=== PATIENT | female | born 1985 | race Caucasian/White ===

== ENCOUNTER 2023-05-06 09:29 | Outpatient (OUT) | payer OTHER, SELFPAY ==
[2023-05-06 11:50] LABS: Basophils Percent Auto 0.4 % (0.2-2.0); Eosinophils Absolute Auto 0.1 10^3/uL (0.0-0.7); Eosinophils Percent Auto 0.7 % (0.9-7.0); Hematocrit 40.4 % (36.0-48.0); Hemoglobin 13.1 g/dL (12.0-16.0); Immature Granulocytes Abs Auto 0.02 10^3/uL (0.00-0.03); Immature Granulocytes Pct Auto 0.2 % (0.0-0.5); Lymphocytes Absolute Auto 2.2 10^3/uL (1.2-3.8); Lymphocytes Percent Auto 23.5 % (20.5-60.0); Mean Corpuscular HGB Conc 32.4 g/dL (29.9-35.2); Mean Corpuscular Hemoglobin 29.2 pg (26.7-34.0); Mean Corpuscular Volume 90.2 fL (81.0-99.0); Mean Platelet Volume 9.4 fL (9.5-13.5); Monocytes Absolute Auto 0.7 10^3/uL (0.3-0.8); Monocytes Percent Auto 7.5 % (1.7-12.0); Neutrophils Absolute Auto 6.3 10^3/uL (1.4-6.5); Neutrophils Percent Auto 67.7 % (43.0-75.0); Platelet Count 343 10^3/uL (150-450); Red Blood Count 4.48 10^6/uL (4.20-5.40); Red Cell Distribution Width 11.9 % (11.0-15.0); White Blood Count 9.4 10^3/uL (4.0-11.0)
[2023-05-06 12:10] LABS: Bilirubin Urine NEGATIVE (NEGATIVE); Blood Urine NEGATIVE (NEGATIVE); Clarity Urine CLEAR (CLEAR); Color Urine LT. YELLOW (YELLOW); Glucose Urine UA NEGATIVE (NEGATIVE); Ketones Urine NEGATIVE (NEGATIVE); Leukocyte Esterase Urine NEGATIVE (NEGATIVE); Nitrite Urine NEGATIVE (NEGATIVE); Protein Urine NEGATIVE (NEG/TRACE); Urobilinogen Urine 0.2 EU/dL (0.2-1.0); pH Urine 6.5 (5.0-9.0)
[2023-05-06 12:14] LABS: Estimated Average Glucose 108 mg/dL; Glycohemoglobin A1C 5.4 % (4.5-6.2)
[2023-05-06 12:16] LABS: Urine Microscopic Indicated NO
[2023-05-06 12:28] LABS: Creatinine Urine Random 28.61 mg/dL (20.00-300.00); Microalbum Creatinine Ratio Ur 45.4 mg/g (0.0-29.9); Microalbumin Urine Random <1.3 mg/dL (<=30.0)
[2023-05-06 12:30] LABS: Alanine Aminotransferase 17 U/L (14-59); Albumin Globulin Ratio 0.8; Albumin Level 3.7 g/dL (3.4-5.0); Alkaline Phosphatase 83 U/L (46-116); Anion Gap 11.1; Aspartate Amino Transferase 12 U/L (15-37); BUN Creatinine Ratio 10.8; Bilirubin Total 1.1 mg/dL (0.2-1.0); Calcium 9.2 mg/dL (8.5-10.1); Carbon Dioxide 29.2 mmol/L (21.0-32.0); Chloride 102 mmol/L (98-107); Chol HDL Ratio 2.4; Cholesterol 193 mg/dL (<=200); Estimated GFR (African America >60 (>=60); Estimated GFR (Non-African Ame >60 (>=60); Globulin 4.4 g/dL; Glucose 93 mg/dL (74-106); HDL Cholesterol 80 mg/dL (40-60); Potassium 4.3 mmol/L (3.5-5.1); Sodium 138 mmol/L (136-145); TSH W/ REFLEX FT4 4.781 uIU/mL (0.358-3.740); Total Protein 8.1 g/dL (6.4-8.2); Triglycerides 45 mg/dL (<=150)
[2023-05-06 13:12] LABS: Free T4 0.92 ng/dL (0.76-1.46)
--- OUTSIDE RECORDS SUMMARY | 2023-05-10 09:32 | XMS_ITS | CCD ---
Author Name Unknown Address [address] [facility] [address] [place] [id number] Organization [facility] Care Team Providers Care Highway Engineering Technician Name Role Phone AICHHOLZ, BASKETBALL ASSEMBLER ELVIE Primary Care Unavailable ABEL, DR KRISTY Yarbrough Admitting Unavailable ABEL, DR KRISTY Yarbrough Consulting Unavailable ABEL, DR KRISTY Yarbrough Attending Unavailable CHAN RICHEY Consulting Unavailable AICHHOLZ, BASKETBALL ASSEMBLER ELVIE Primary Care Unavailable AICHHOLZ, BASKETBALL ASSEMBLER ELVIE Consulting Unavailable AICHHOLZ, BASKETBALL ASSEMBLER ELVIE Attending Unavailable AICHHOLZ, BASKETBALL ASSEMBLER ELVIE Admitting Unavailable AICHHOLZ, BASKETBALL ASSEMBLER ELVIE Primary Care Unavailable KARASIK ., DR FOFANA Consulting Unavailabl e KARFISH ., DR FOFANA Attending Unavailabl e BO ., DR FOFANA Admitting Unavailabl e Mary Jo Thibodeaux Unavailable Aichholz 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, Elvie Unavailable Latanya SAGASTUME, Chris Primary Care Provider DEEP HENRY Attending Unavailable DEEP HENRY Referring Unavailable AICHHOLZ, ELVIE Attending Unavailable DEEP HENRY Attending Unavailable Allergies Allergy Classification Reported Allergen(s) Allergy Type Date of Onset Reaction(s) Facility (1 source) diphenhydrAMINE Drug Allergy [facility] (1 source) Latex Drug allergy (disorder) [facility] (1 source) diphenhydrAMINE Drug Allergy Unknown [facility] Other (1 source) Latex Propensity to adverse reactions Unknown [facility] Other (3 sources) diphenhydrAMINE Drug Allergy 08-09-19 Hives, Itching, Rash, Unknown [facility] (3 sources) Latex Propensity to adverse reactions 08-09-19 Hives, Itching, Rash, Unknown [facility] (3 sources) Prednisone Propensity to adverse reactions 04-01-19 [facility] (3 sources) Antihistamines, Diphenhydramine-Ty pe Propensity to adverse reactions 04-01-19 [facility] Medications Current Medications Medication Drug Class(es) Dates Sig (Normalized) Sig (Original) 8 hr acetaminophen 650 mg extended release oral tablet (1 source) take 2 tablets by mouth every eight hours Acetaminophen ER 650 MG 2 tablets as needed Orally every 8 hrs Active [id number] 200 actuat albuterol 0.09 mg/actuat metered dose inhaler (3 sources) beta2-Adrenergic Agonist Start: 04-01-2023 End: 05-01-2023 take 2 puff(s) by inhalation every six hours for wheezing albuterol HFA 90 mcg/act inhaler Indications: Moderate persistent asthma without complication (CMS/HCC) Inhale 2 puffs every 6 (six) hours if needed for shortness of breath or wheezing 18 g 0 04/01/2023 05/01/2023 Active 60 actuat budesonide 0.16 mg/actuat / formoterol fumarate 0.0045 mg/actuat metered dose inhaler (3 sources) Corticosteroid, beta2-Adrenergic Agonist Start: 04-13-2023 End: 07-12-2023 take 2 puff(s) by inhalation in the morning budesonide-formoterol (Symbicort) 160-4.5 MCG/ACT inhaler Indications: Moderate persistent asthma without complication (CMS/HCC) Inhale 2 puffs in the morning and 2 puffs before bedtime. Rinse mouth with water after use to reduce aftertaste and incidence of candidiasis. Do not swallow.. 3 each 1 04/13/2023 07/12/2023 Active 24 hr buPROPion hydrochloride 150 mg extended release oral tablet (3 sources) Aminoketone Start: 04-13-2023 End: 05-13-2023 take 1 tablet by mouth every twenty-four hours in the morning buPROPion XL (Wellbutrin XL) 150 MG 24 hr tablet Indications: Anxiety and depression (CMS/HCC) Take 1 tablet (150 mg) by mouth in the morning. Do not crush, chew, or split.. 30 tablet 1 04/13/2023 05/13/2023 Active calcitriol 0.33345 mg oral capsule (3 sources) Vitamin D3 Analog take 1 capsule by mouth in the morning calcitriol (Rocaltrol) 0.25 MCG capsule Take 0.25 mcg by mouth in the morning. 0 Active cetirizine hydrochloride 10 mg oral tablet (1 source) Histamine-1 Receptor Antagonist take 1 tablet by mouth once daily ZyrTEC 10 MG 1 tablet Orally Once a day Active Fish Oils (1 source) take 1 capsule by mouth once daily Fish Oil 1000 MG 1 capsule Orally Once a day Active hydrOXYzine pamoate 25 mg oral capsule (3 sources) Antihistamine Start: 04-13-2023 End: 05-13-2023 take 1 capsule by mouth every eight hours hydrOXYzine pamoate (Vistaril) 25 MG capsule Indications: Anxiety and depression (CMS/HCC) Take 1 capsule (25 mg) by mouth every 8 (eight) hours Anxiety 90 capsule 0 04/13/2023 05/13/2023 Active magnesium oxide 400 mg oral tablet (4 sources) Start: 08-13-2022 take 1 tablet by mouth in the morning magnesium oxide (Mag-Ox) 400 (240 Mg) MG tablet Take 400 mg by mouth in the morning. 0 08/13/2022 Active meloxicam 7.5 mg oral tablet (1 source) Nonsteroidal Anti-inflammatory Drug take 1 tablet by mouth every twenty-four hours Meloxicam 7.5 MG 1 tablet Orally Once a day Active Misc Natural Products (Osteo Bi-Flex Adv Triple St) tablet (3 sources) Misc Natural Pro ducts (Osteo Bi-Flex Adv Triple St) tablet Take by mouth 0 Active montelukast 10 mg oral tablet (3 sources) Leukotriene Receptor Antagonist Start: 04-13-2023 End: 07-12-2023 take 1 tablet by mouth at bedtime montelukast (Singulair) 10 MG tablet Indications: Moderate persistent asthma without complication (CMS/HCC) Take 1 tablet (10 mg) by mouth at bedtime 90 tablet 1 04/13/2023 07/12/2023 Active Putney-3 Fatty Acids (Fish Oil) 1000 MG capsule delayed-release (3 sources) Putney-3 Fatty Ac ids (Fish Oil) 1000 MG capsule delayed-release Take by mouth 0 Active omeprazole 20 mg delayed release oral capsule (4 sources) Proton Pump Inhibitor Start: 04-13-2023 End: 07-12-2023 take 1 capsule by mouth in the morning omeprazole (PriLOSEC) [address] capsule Indications: Gastroesophageal reflux disease, unspecified whether esophagitis present Take 1 capsule (20 mg) by mouth in the morning and 1 capsule (20 mg) before bedtime. 180 capsule 1 04/13/2023 07/12/2023 Active take 1 tablet by mouth twice bharath ly Omeprazole 20 MG 1 tablet 30 minutes before morning meal Orally Twice a day Active Osteo Bi-Flex Adv Double St (1 source) Osteo Bi-Flex Ad v Double St 2 tabs daily Active Potassium (4 sources) Potassium 99 MG tablet 1 (one) time each day at the same time 0 Active take 2 tablets by mouth once bharath ly Potassium 99 MG 2 tablet Orally Once a day Active traMADol hydrochloride 50 mg oral tablet (4 sources) Opioid Agonist Start: 04-14-2023 End: 04-29-2023 traMADol (Ultram) 50 MG tablet Indications: Chronic pain of right knee Take 1 tablet (50 mg) by mouth as needed at bedtime for severe pain for up to 15 days 15 tablet 0 04/14/2023 04/29/2023 Active Start: 04-13-2023 End: 04-14-2023 traMADol (Ultram) 50 MG tabl et Indications: Chronic pain of right knee Take 1 tablet (50 mg) by mouth as needed at bedtime for severe pain for up to 10 days 15 tablet 0 04/13/2023 04/14/2023 Discontinued (Reorder) triamcinolone acetonide 0.055 mg/actuat metered dose nasal spray (3 sources) Corticosteroid Start: 04-13-2023 End: 07-12-2023 take 2 spray(s) nasal route in the morning triamcinolone (Nasacort) 55 MCG/ACT nasal inhaler Indications: Moderate persistent asthma without complication (CMS/HCC) Administer 2 sprays into each nostril in the morning. 50 g 1 04/13/2023 07/12/2023 Active Problems Active Problems Problem Classification Problem Date Documented Date Episodic/Chronic Abdominal hernia (3 sources) Umbilical hernia; Translations: [Umbilical hernia without obstruction or gangrene] Onset: 04-01-2023 04-01-2023 Episodic Anxiety disorders (3 sources) Mixed anxiety and depressive disorder; Translations: [Anxiety disorder, unspecified] Onset: 04-01-2023 04-01-2023 Chronic Asthma (7 sources) Asthma; Translations: [Asthma, unspecified] Onset: 04-01-2023 04-01-2023 Chronic Diabetes mellitus without complication (1 source) Type 2 diabetes mellitus without complication; Translations: [Diabetes mellitus without mention of complication, type II or unspecified, not stated as uncontrolled] Chronic Diabetes mellitus without complication (3 sources) Increased glucose level; Translations: [Other abnormal glucose] Onset: 04-01-2023 04-01-2023 Episodic Esophageal disorders (4 sources) Gastro-esophageal reflux disease without esophagitis; Translations: [Gastroesophageal reflux disease] Onset: 02-25-2022 04-01-2023 Chronic Immunizations and screening for infectious disease (1 source) Encounter for screening for human papillomavirus (HPV); Translations: [ENC SCREENING HUMAN PAPILLOMAVIRUS] Onset: 05-10-2022 Episodic Joint disorders and dislocations; trauma-related (3 sources) Derangement of right knee; Translations: [Unspecified internal derangement of right knee] Onset: 04-01-2023 04-01-2023 Chronic Joint disorders and dislocations; trauma-related (3 sources) Acute meniscal tear, medial; Translations: [Other tear of medial meniscus, current injury, unspecified knee, initial encounter] Onset: 04-01-2023 04-01-2023 Episodic Nonmalignant breast conditions (3 sources) Mastodynia; Translations: [Mastodynia] Onset: 04-01-2023 04-01-2023 Episodic Osteoarthritis (5 sources) Arthritis of right knee; Translations: [Unilateral primary osteoarthritis, right knee] Onset: 04-01-2023 04-01-2023 Chronic Other connective tissue disease (1 source) Cramp and spasm; Translations: [CRAMP AND SPASM] Onset: 05-31-2022 Episodic Other connective tissue disease (3 sources) Cramp in lower limb; Translations: [Cramp and spasm] Onset: 04-01-2023 04-01-2023 Episodic Other inflammatory condition of skin (3 sources) Psoriasis; Translations: [Psoriasis, unspecified] Onset: 04-01-2023 04-01-2023 Chronic Other non-traumatic joint disorders (6 sources) Pain in right knee; Translations: [Pain in joint, lower leg] Onset: 04-01-2023 04-14-2023 Episodic Other nutritional; endocrine; and metabolic disorders (3 sources) Hypomagnesemia; Translations: [Hypomagnesemia] Onset: 04-01-2023 04-01-2023 Chronic Other nutritional; endocrine; and metabolic disorders (3 sources) Body mass index 40+ - severely obese; Translations: [Morbid (severe) obesity due to excess calories] Onset: 04-13-2023 04-13-2023 Chronic Other screening for suspected conditions (not mental disorders or infectious disease) (14 sources) Abnormal results of liver function studies; Translations: [Encounter for screening for malignant neoplasm of cervix] Onset: 05-06-2022 Episodic Other skin disorders (3 sources) Loss of hair; Translations: [Nonscarring hair loss, unspecified] Onset: 04-01-2023 04-01-2023 Episodic Past or Other Problems Problem Classification Problem Date Documented Date Episodic/Chronic Abdominal pain (3 sources) Epigastric pain; Translations: [EPIGASTRIC PAIN] Onset: 02-23-2022 Episodic Chronic obstructive pulmonary disease and bronchiectasis (1 source) Bronchitis, not specified as acute or chronic; Translations: [BRONCHITIS NOT SPEC ACUTE/CHRON] Onset: 02-25-2022 Episodic Other aftercare (1 source) Other termite exterminator (current) drug therapy; Translations: [OTH HALF-WAY CURRENT DRUG THERAPY] Onset: 02-25-2022 Episodic Other connective tissue disease (3 sources) H/O: knee problem; Translations: [Personal history of other diseases of the musculoskeletal system and connective tissue] Onset: 03-27-2020 04-01-2023 Episodic Unclassified (1 source) Contact with and (suspected) exposure to covid-19 Z20.822 Viral infection (1 source) COVID-19 Results Test Name Value Interpretation Reference Range Facility COVID + FLU Quick Testingon 02-26-2023 SARS-CoV-2 (COVID-19) RNA LIANNE+probe Ql (Unsp spec) Positive [facility] Other COVID + FLU Quick Testing Negative [facility] Other CBC AUTO DIFFon 05-28-2022 BASO # 0.0 103/ul Normal 0.0-0.1 [facility] Comment on above: Performed By: #### C BC #### [facility] [address] [address] [address] Tracey Mccoy Basophils/100 WBC (Bld) 0.3 % Normal 0.2-2.0 [facility] Comment on above: Performed By: #### C BC #### [facility] [address] [address] [address] Tracey Mccoy EO # 0.2 103/ul Normal 0.0-0.7 [facility] Comment on above: Performed By: #### C BC #### [facility] [address] [address] [address] Tracey Mccoy Eosinophils/100 WBC (Bld) 1.7 % Normal 0.9-7.0 [facility] Comment on above: Performed By: #### C BC #### [facility] [address] [address] [address] Tracey Mccoy Erythrocyte distribution width (RBC) [Ratio] 12.4 % Normal 11.0-15.0 [facility] Comment on above: Performed By: #### C BC #### [facility] [address] [place] [address] Dr. Tracey Mccoy Hematocrit (Bld) [Volume fraction] 36.2 % Normal 36.0-48.0 [facility] Comment on above: Performed By: #### C BC #### [facility] [address] [address] [address] Tracey Mccoy Hemoglobin (Bld) [Mass/Vol] 12.2 g/dL Normal 12.0-16.0 [facility] Comment on above: Performed By: #### C BC #### [facility] [address] [address] [address] Tracey Mccoy IG # 0.05 10e3/ul Critically high 0.00-0.03 [facility] Comment on above: Performed By: #### C BC #### [facility] [address] [place] [address] Dr. Tracey Mccoy IG % 0.5 % Normal 0.0-0.5 [facility] Comment on above: Performed By: #### C BC #### [facility] [address] [place] [address] Dr. Tracey Mccoy LYMPH # 2.3 103/ul Normal 1.2-3.8 [facility] Comment on above: Performed By: #### C BC #### [facility] [address] [place] [address] Dr. Tracey Mccoy Lymphocytes/100 WBC (Bld) 25.6 % Normal 20.5-60.0 [facility] Comment on above: Performed By: #### C BC #### [facility] [address] [place] [address] Dr. Tracey Mccoy MANUAL DIFF REQ NO Normal [facility] Comment on above: Performed By: #### C BC #### [facility] [address] [place] [address] Dr. Tracey Mccoy MCH (RBC) [Entitic mass] 29.0 pg Normal 26.7-34.0 [facility] Comment on above: Performed By: #### C BC #### [facility] [address] [place] [address] Dr. Tracey Mccoy MCHC (RBC) [Mass/Vol] 33.7 g/dL Normal 29.9-35.2 [facility] Comment on above: Performed By: #### C BC #### [facility] [address] [place] [address] Dr. Tracey Mccoy MCV (RBC) [Entitic vol] 86.0 fL Normal 81.0-99.0 [facility] Comment on above: Performed By: #### C BC #### [facility] [address] [place] [address] Dr. Tracey Mccoy MONO # 0.7 103/ul Normal 0.3-0.8 [facility] Comment on above: Performed By: #### C BC #### [facility] [address] [place] [address] Dr. Tracey Mccoy Monocytes/100 WBC (Bld) 7.7 % Normal 1.7-12.0 [facility] Comment on above: Performed By: #### C BC #### [facility] [address] [place] [address] Dr. Tracey Mccoy NEUT # 5.9 103/ul Normal 1.4-6.5 [facility] Comment on above: Performed By: #### C BC #### [facility] [address] [place] [address] Dr. Tracey Mccoy Neutrophils/100 WBC (Bld) 64.2 % Normal 43.0-75.0 [facility] Comment on above: Performed By: #### C BC #### [facility] [address] [place] [address] Dr. Tracey Mccoy Platelet mean volume (Bld) [Entitic vol] 9.5 fL Normal 9.5-13.5 [facility] Comment on above: Performed By: #### C BC #### [facility] [address] [place] [address] Dr. Tracey Mccoy PLT 348 103/ul Normal 150-450 [facility] Comment on above: Performed By: #### C BC #### [facility] [address] [place] [address] Dr. Tracey Mccoy RBC 4.21 106/ul Normal 4.20-5.40 [facility] Comment on above: Performed By: #### C BC #### [facility] [address] [place] [address] Dr. Tracey Mccoy WBC 9.2 103/ul Normal 4.0-11.0 [facility] Comment on above: Performed By: #### C BC #### [facility] [address] [place] [address] Dr. Tracey Mccoy FERRITINon 05-28-2022 Ferritin [Mass/Vol] 15.0 ng/mL Normal 6.2-137.0 [facility] Comment on above: Performed By: #### F ERR #### [facility] [address] [place] [address] Dr. Tracey Mccoy MAGNESIUMon 05-28-2022 Magnesium [Mass/Vol] 1.7 mg/dL Critically low 1.8-2.4 [facility] Comment on above: Performed By: #### M G, CMP #### [facility] [address] [place] [address] Dr. Tracey Mccoy PROF 14(COMP METB)on 023 Albumin [Mass/Vol] 3.7 g/dL Normal 3.4-5.0 [facility] Comment on above: Performed By: #### M G, CMP #### [facility] [address] [place] [address] Dr. Tracey Mccoy Albumin/Globulin [Mass ratio] 1.0 {ratio} Normal [facility] Comment on above: Performed By: #### M G, CMP #### [facility] [address] [place] [address] Dr. Tracey Mccoy ALP [Catalytic activity/Vol] 89 U/L Normal 46-116 [facility] Comment on above: Performed By: #### M G, CMP #### [facility] [address] [place] [address] Dr. Tracey Mccoy ALT [Catalytic activity/Vol] 26 U/L Normal 14-59 [facility] Comment on above: Performed By: #### M G, CMP #### [facility] [address] [place] [address] Dr. Tracey Mccoy Anion gap [Moles/Vol] 13.2 mmol/L Normal [facility] Comment on above: Performed By: #### M G, CMP #### [facility] [address] [place] [address] Dr. Tracey Mccoy AST [Catalytic activity/Vol] 19 U/L Normal 15-37 [facility] Comment on above: Performed By: #### M G, CMP #### [facility] [address] [place] [address] Dr. Tracey Mccoy Bilirubin [Mass/Vol] 0.6 mg/dL Normal 0.2-1.0 [facility] Comment on above: Performed By: #### M G, CMP #### [facility] [address] [address] [address] Tracey Mccoy Calcium [Mass/Vol] 9.2 mg/dL Normal 8.5-10.1 [facility] Comment on above: Performed By: #### M G, CMP #### [facility] [address] [address] [address] Tracey Mccoy Chloride [Moles/Vol] 101 mmol/L Normal 98-107 [facility] Comment on above: Performed By: #### M G, CMP #### [facility] [address] [place] [address] Dr. Tracey Mccoy CO2 [Moles/Vol] 26.9 mmol/L Normal 21.0-32.0 [facility] Comment on above: Performed By: #### M G, CMP #### [facility] [address] [place] [address] Dr. Tracey Mccoy Creatinine [Mass/Vol] 0.47 mg/dL Critically low 0.55-1.02 [facility] Comment on above: Performed By: #### M G, CMP #### [facility] [address] [address] [address] Tracey Mccoy EGFR-AF URUGUAYAN >60 Normal >=60 [facility] Comment on above: Performed By: #### M G, CMP #### [facility] [address] [place] [address] Dr. Tracey Mccoy EGFR-NON AF URUGUAYAN >60 Normal >=60 [facility] Comment on above: Performed By: #### M G, CMP #### [facility] [address] [place] [address] Dr. Tracey Mccoy Globulin (S) [Mass/Vol] 3.6 g/dL Normal [facility] Comment on above: Performed By: #### M G, CMP #### [facility] [address] [address] [address] Tracey Mccoy Glucose [Mass/Vol] 88 mg/dL Normal 74-106 [facility] Comment on above: Performed By: #### M G, CMP #### [facility] [address] [place] [address] Dr. Tracey Mccoy Potassium [Moles/Vol] 4.1 mmol/L Normal 3.5-5.1 [facility] Comment on above: Performed By: #### M G, CMP #### [facility] [address] [address] [address] Tracey Mccoy Protein [Mass/Vol] 7.3 g/dL Normal 6.4-8.2 [facility] Comment on above: Performed By: #### M G, CMP #### [facility] [address] [place] [address] Dr. Tracey Mccoy Sodium [Moles/Vol] 137 mmol/L Normal 136-145 [facility] Comment on above: Performed By: #### M G, CMP #### [facility] [address] [place] [address] Dr. Tracey Mccoy Urea nitrogen [Mass/Vol] 5.0 mg/dL Critically low 7.0-18.0 [facility] Comment on above: Performed By: #### M G, CMP #### [facility] [address] [place] [address] Dr. Tracey Mccoy Urea nitrogen/Creatinin e [Mass ratio] 10.6 mg/mg [facility] Comment on above: Performed By: #### M Vivienne, CMP #### [facility] [address] [place] [address] Dr. Tracey Mccoy PAP ACOG PANEL 2: 30 to 65on 05-14-2022 . . Normal [facility] Comment on above: Result Comment: Perf ormed at: WB Performed By: #### [id number] #### [facility] [address] [place] [address] Dr. Tracye Mccoy Age Gdln ACOG Testing 30-65 [facility] Comment on above: Performed By: #### [id number] #### [facility] [address] [place] [address] Dr. Tracey Mccoy DIAGNOSIS: Comment Normal [facility] Comment on above: Result Comment: NEGA TIVE FOR INTRAEPITHELIAL LESION OR MALIGNANCY. Performed at: WB Performed By: #### [id number] #### [facility] [address] [place] [address] Dr. Tracey Mccoy HPV Aptima Negative Normal Negative [facility] Comment on above: Result Comment: This nucleic acid amplification test detects fourteen high-risk HPV types (16,18,31,33,35,39,45,51,52,56,58,59,66,68) without differentiation. Performed at: =G Performed By: #### [id number] #### [facility] [address] [place] [address] Dr. Tracey Mccoy HPV Genotype Reflex Comment Normal [facility] Comment on above: Result Comment: Crit eria not met, HPV Genotype not performed. Performed at: WB Performed By: #### [id number] #### [facility] [address] [place] [address] Dr. Tracey Mccoy Methodology: Comment Normal [facility] Comment on above: Result Comment: This liquid based ThinPrep(R) pap test was screened with the use of an image guided system. Performed at: WB Performed By: #### [id number] #### [facility] [address] [place] [address] Dr. Tracey Mccoy Note: Comment Normal [facility] Comment on above: Result Comment: The Pap smear is a screening test designed to aid in the detection of premalignant and malignant conditions of the uterine cervix. It is not a diagnostic procedure and should not be used as the sole means of detecting cervical cancer. Both false-positive and false-negative reports do occur. . Performed at: WB Performed By: [id number] #### [facility] [address] [place] [address] Dr. Tracey Mccoy Performed by: Comment Normal [facility] Comment on above: Result Comment: Daysi Cheema, Crime Scene Analyst Performed at: WB Performed By: #### [id number] #### [facility] [address] [place] [address] Dr. Tracey Mccoy Specimen adequacy: Comment Normal [facility] Comment on above: Result Comment: Sati sfactory for evaluation. Endocervical and/or squamous metaplastic cells (endocervical component) are present. Performed at: WB Performed By: #### [id number] #### [facility] [address] [place] [address] Dr. Tracey Mccoy BNPon 02-23-2022 Natriuretic peptide B (Bld) [Mass/Vol] 37.0 pg/mL Normal <=450.0 [facility] Comment on above: Performed By: #### B 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 #### [facility] [address] [place] [address] Dr. Tracey Mccoy CBC AUTO DIFFon 02-23-2022 BASO # 0.0 103/ul Normal 0.0-0.1 [facility] Comment on above: Performed By: #### C BC #### [facility] [address] [place] [address] Dr. Tracey Mccoy Basophils/100 WBC (Bld) 0.3 % Normal 0.2-2.0 [facility] Comment on above: Performed By: #### C BC #### [facility] [address] [place] [address] Dr. Tracey Mccoy EO # 0.0 103/ul Normal 0.0-0.7 [facility] Comment on above: Performed By: #### C BC #### [facility] [address] [place] [address] Dr. Tracey Mccoy Eosinophils/100 WBC (Bld) 0.3 % Critically low 0.9-7.0 [facility] Comment on above: Performed By: #### C BC #### [facility] [address] [place] [address] Dr. Tracey Mccoy Erythrocyte distribution width (RBC) [Ratio] 12.9 % Normal 11.0-15.0 [facility] Comment on above: Performed By: #### C BC #### [facility] [address] [place] [address] Dr. Tracey Mccoy Hematocrit (Bld) [Volume fraction] 37.5 % Normal 36.0-48.0 [facility] Comment on above: Performed By: #### C BC #### [facility] [address] [place] [address] Dr. Tracey Mccoy Hemoglobin (Bld) [Mass/Vol] 12.1 g/dL Normal 12.0-16.0 [facility] Comment on above: Performed By: #### C BC #### [facility] [address] [place] [address] Dr. Tracey Mccoy IG # 0.02 10e3/ul Normal 0.00-0.03 [facility] Comment on above: Performed By: #### C BC #### [facility] [address] [place] [address] Dr. Tracey Mccoy IG % 0.3 % Normal 0.0-0.5 [facility] Comment on above: Performed By: #### C BC #### [facility] [address] [place] [address] Dr. Tracey Mccoy LYMPH # 2.0 103/ul Normal 1.2-3.8 [facility] Comment on above: Performed By: #### C BC #### [facility] [address] [place] [address] Dr. Tracey Mccoy Lymphocytes/100 WBC (Bld) 28.4 % Normal 20.5-60.0 [facility] Comment on above: Performed By: #### C BC #### [facility] [address] [place] [address] Dr. Tracey Mccoy MANUAL DIFF REQ NO Normal [facility] Comment on above: Performed By: #### C BC #### [facility] [address] [place] [address] Dr. Tracey Mccoy MCH (RBC) [Entitic mass] 28.5 pg Normal 26.7-34.0 [facility] Comment on above: Performed By: #### C BC #### [facility] [address] [place] [address] Dr. Tracey Mccoy MCHC (RBC) [Mass/Vol] 32.3 g/dL Normal 29.9-35.2 [facility] Comment on above: Performed By: #### C BC #### [facility] [address] [place] [address] Dr. Tracey Mccoy MCV (RBC) [Entitic vol] 88.4 fL Normal 81.0-99.0 [facility] Comment on above: Performed By: #### C BC #### [facility] [address] [place] [address] Dr. Tracey Mccoy MONO # 0.5 103/ul Normal 0.3-0.8 [facility] Comment on above: Performed By: #### C BC #### [facility] [address] [place] [address] Dr. Tracey Mccoy Monocytes/100 WBC (Bld) 7.7 % Normal 1.7-12.0 [facility] Comment on above: Performed By: #### C BC #### [facility] [address] [place] [address] Dr. Tracey Mccoy NEUT # 4.4 103/ul Normal 1.4-6.5 [facility] Comment on above: Performed By: #### C BC #### [facility] [address] [place] [address] Dr. Tracey Mccoy Neutrophils/100 WBC (Bld) 63.0 % Normal 43.0-75.0 [facility] Comment on above: Performed By: #### C BC #### [facility] [address] [place] [address] Dr. Tracey Mccoy Platelet mean volume (Bld) [Entitic vol] 9.2 fL Critically low 9.5-13.5 [facility] Comment on above: Performed By: #### C BC #### [facility] [address] [place] [address] Dr. Tracey Mccoy PLT 278 103/ul Normal 150-450 [facility] Comment on above: Performed By: #### C BC #### [facility] [address] [place] [address] Dr. Tracey Mccoy RBC 4.24 106/ul Normal 4.20-5.40 [facility] Comment on above: Performed By: #### C BC #### [facility] [address] [place] [address] Dr. Tracey Mccoy WBC 6.9 103/ul Normal 4.0-11.0 [facility] Comment on above: Performed By: #### C BC #### [facility] [address] [place] [address] Dr. Tracey Mccoy PROF 14(COMP METB)on 022 Albumin [Mass/Vol] 3.7 g/dL Normal 3.4-5.0 [facility] Comment on above: Performed By: #### C MP, HSTROPN #### [facility] [address] [address] [address] Tracey Mccoy Albumin/Globulin [Mass ratio] 0.9 {ratio} Normal [facility] Comment on above: Performed By: #### C MP, HSTROPN #### [facility] [address] [place] [address] Dr. Tracey Mccoy ALP [Catalytic activity/Vol] 103 U/L Normal 46-116 [facility] Comment on above: Performed By: #### C MP, HSTROPN #### [facility] [address] [place] [address] Dr. Tracey Mccoy ALT [Catalytic activity/Vol] 67 U/L Critically high 14-59 [facility] Comment on above: Performed By: #### C MP, HSTROPN #### [facility] [address] [place] [address] Dr. Tracey Mccoy Anion gap [Moles/Vol] 9.6 mmol/L Normal [facility] Comment on above: Performed By: #### C MP, HSTROPN #### [facility] [address] [place] [address] Dr. Tracey Mccoy AST [Catalytic activity/Vol] 100 U/L Critically high 15-37 [facility] Comment on above: Performed By: #### C MP, HSTROPN #### [facility] [address] [place] [address] Dr. Tracey Mccoy Bilirubin [Mass/Vol] 0.4 mg/dL Normal 0.2-1.0 [facility] Comment on above: Performed By: #### C MP, HSTROPN #### [facility] [address] [place] [address] Dr. Tracey Mccoy Calcium [Mass/Vol] 8.8 mg/dL Normal 8.5-10.1 [facility] Comment on above: Performed By: #### C JASIEL, HSTROPN #### [facility] [address] [address] [address] Tracey Mccoy Chloride [Moles/Vol] 104 mmol/L Normal 98-107 [facility] Comment on above: Performed By: #### C JASIEL, HSTROPN #### [facility] [address] [address] [address] Tracey Mccoy CO2 [Moles/Vol] 28.5 mmol/L Normal 21.0-32.0 [facility] Comment on above: Performed By: #### C JASIEL, HSTROPN #### [facility] [address] [place] [address] Dr. Tracey Mccoy Creatinine [Mass/Vol] 0.71 mg/dL Normal 0.55-1.02 [facility] Comment on above: Performed By: #### C JASIEL, HSTROPN #### [facility] [address] [place] [address] Dr. Tracey Mccoy EGFR-AF URUGUAYAN >60 Normal >=60 [facility] Comment on above: Performed By: #### C JASIEL, HSTROPN #### [facility] [address] [place] [address] Dr. Tracey Mccoy EGFR-NON AF URUGUAYAN >60 Normal >=60 [facility] Comment on above: Performed By: #### C JASIEL, HSTROPN #### [facility] [address] [place] [address] Dr. Tracey Mccoy Globulin (S) [Mass/Vol] 3.9 g/dL Normal [facility] Comment on above: Performed By: #### C JASIEL, HSTROPN #### [facility] [address] [place] [address] Dr. Tracey Mccoy Glucose [Mass/Vol] 113 mg/dL Critically high 74-106 [facility] Comment on above: Performed By: #### C JASIEL, HSTROPN #### [facility] [address] [place] [address] Dr. Tracey Mccoy Potassium [Moles/Vol] 3.1 mmol/L Critically low 3.5-5.1 [facility] Comment on above: Performed By: #### C MP, HSTROPN #### [facility] [address] [address] [address] Tracey Mccoy Protein [Mass/Vol] 7.6 g/dL Normal 6.4-8.2 [facility] Comment on above: Performed By: #### C MP, HSTROPN #### [facility] [address] [address] [address] Tracey Mccoy Sodium [Moles/Vol] 139 mmol/L Normal 136-145 [facility] Comment on above: Performed By: #### C JASIEL, HSTROPN #### [facility] [address] [address] [address] Tracey Mccoy Urea nitrogen [Mass/Vol] 9.0 mg/dL Normal 7.0-18.0 [facility] Comment on above: Performed By: #### C JASIEL, HSTROPN #### [facility] [address] [address] [address] Tracey Mccoy Urea nitrogen/Creatinin e [Mass ratio] 12.7 mg/mg Normal [facility] Comment on above: Performed By: #### C MP, HSTROPN #### [facility] [address] [address] [address] Tracey Mccoy TROPONIN, HIGH SENSITIVITYon 02-23-2022 HSTROP 5.8 pg/mL Normal 4.0-51.3 [facility] Comment on above: Result Comment: CUT- OFF POINTS HAVE BEEN ESTABLISHED BASED ON THE FOURTH UNIVERSAL DEFINITIONS OF MYOCARDIAL INFARCTION. THE UPPER REFERENCE LIMIT (URL) OF TROPONIN, DEFINED THE 99TH PERCENTILE OF cTnI DISTRIBUTION IN A REFERENCE POPULATION, HAS BEEN CONFIRMED THE DECISION THRESHOLD FOR MT DIAGNOSIS. Performed By: #### C MP, HSTROPN #### [facility] [address] [address] [address] Tracey Mccoy XR CHEST 1 Von 02-23-2022 XR CHEST 1 V EXAM: XR CHEST 1 V HISTORY: COUGH COMPARISON: None. TECHNIQUE: Chest single view. FINDINGS: Lines/tubes/devices: EKG leads overlie the chest. No indwelling lines are seen. Cardiomediastinum: Cardiac silhouette appears upper normal in size. Unremarkable mediastinal silhouette. Vasculature: Mild central congestion. Mildly increased interstitial markings can be related to congestion or infiltrates. Lungs/pleura: No consolidation, sizeable effusion, or visible pneumothorax. Mild bibasilar atelectasis. Bones/soft tissues: Bony thorax appears grossly intact as seen. Slight asymmetric elevation of the right hemidiaphragm. IMPRESSION: Borderline enlarged cardiac silhouette. Mild pulmonary vascular congestion. Mild bibasilar atelectasis. No focal lung consolidation is seen. FOLLOW-UP: Follow-up as clinically warranted. Electronically authenticated by: CHAN RICHEY Date: 2022-02-23 03:04 Normal [facility] Vital Signs Date Time Vital Sign Value Performing Clinician Facility 02-26-2023 09:45-0500 Body height 157.48 cm Mary Jo Thibodeaux Other [facility] Other 02-26-2023 09:45-0500 Body mass index (BMI) [Ratio] 57.13 kg/m2 Mary Jo Thibodeaux Other [facility] Other 02-26-2023 09:45-0500 Body temperature 97.2 [degF] Mary Jo Thibodeaux Other [facility] Other 02-26-2023 09:45-0500 Body weight 141.7 kg Mary Jo Thibodeaux Other [facility] Other 02-26-2023 09:45-0500 Diastolic blood pressure 86 mm[Hg] Mary Jo Thibodeaux Other [facility] Other 02-26-2023 09:45-0500 Respiratory rate 18 /min Mary Jo Chunmond Other [facility] Other 02-26-2023 09:45-0500 SaO2% (BldA) [Mass fraction] 98 % Mary Jo Thibodeaux Other [facility] Other 02-26-2023 09:45-0500 Systolic blood pressure 136 mm[Hg] Mary Jo Thibodeaux Other [facility] Other Encounters Encounter Date Encounter Type Care Provider Facility Start: 04-22-2023 End: 04-22-2023 ambulatory DEEP HENRY Not Available Start: 04-22-2023 End: 04-22-2023 Office outpatient visit 10 minutes 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 Henry 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 Work Phone: [facility] Comment on above: Primary osteoarthrit is of right knee (Primary Dx); Right knee pain, unspecified chronicity Start: 04-14-2023 Telephone encounter Elvie darnell 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 Work Phone: [facility] Start: 04-13-2023 End: 04-13-2023 ambulatory ELVIE AICHHOLZ Not Available Start: 04-01-2023 End: 04-02-2023 ambulatory DEEP HENRY Not Available Start: 02-26-2023 End: 02-26-2023 ambulatory Mary Jo Thibodeaux Other [facility] Other Start: 02-26-2023 Office outpatient vi sit 15 minutes Mary Jo Thibodeaux [facility] Start: 05-28-2022 End: 05-29-2022 ambulatory 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 ASSEMBLER ELVIE AICHHOLZ Facility:[facility] Start: 05-06-2022 End: 05-06-2022 ambulatory BASKETBALL ASSEMBLER ELVIE AICHHOLZ Facility:[facility] Start: 02-23-2022 End: 02-23-2022 ambulatory BASKETBALL ASSEMBLER ELVIE AICHHOLZ Facility:[facility] Plan of Treatment Date Care Activity Detail Author Start: 05-27-2023 End: 05-27-2023 Patient encounter procedure 05/27/2023 10:00 AM EDT Office Visit [facility] [address] [place] [address] [place] [id number] Javier Morales, [address] [place] [address] [facility] Start: 05-18-2023 End: 05-18-2023 Patient encounter procedure 05/18/2023 9:20 AM EDT Office Visit [facility] [address] [place] [address] Elvie Greer, JONN [address] [place] [address] [facility] Start: 04-22-2023 End: 04-22-2023 Patient encounter procedure 04/22/2023 10:15 AM EST Office Visit [facility] [address] [place] [address] Deep Henry, JONN [address] [place], [place] [id number] [facility] Start: 11-18-2013 Screening for malignant neoplasm of cervix [facility] Start: 11-18-2004 Screening for malignant neoplasm of cervix Pap Smear [facility] Payers Date Payer Category Payer Unknown [employer] [id number] 2023-Present [address] [place] [address] [id number] 1983 Unknown [id number] 1983 Unknown [id number] 1983 Unknown [id number] 1983 Unknown [id number] 1983 Unknown [id number] 1983 Unknown [id number] 1983 Unknown [id number] 1959 Unknown [id number] Social History Date Type Detail Facility Start: 04-06-2023 End: 04-13-2023 Sex Assigned At [facility] Start: 04-01-2023 Tobacco smoking status NVIS Never smoked tobacco [facility] Work Phone: Start: 04-01-2023 Tobacco use and exposure Smokeless tobacco non-user [facility] Start: 04-13-2023 End: 04-22-2023 Alcohol intake Lifetime non-drinker (finding) [facility] Start: 04-06-2023 End: 04-13-2023 History of Social function [facility] Within the last year , have you been afraid of your partner or ex-partner? No [facility] Do you belong to any clubs or organizations such as baptist groups, unions, fraternal or athletic groups, or school groups? Yes [facility] Are you now , , , , never or living with a partner? [facility] How often to you hav e a drink containing alcohol? Never [facility] How many standard dr inks containing alcohol do you have on a typical day? Patient does not drink [facility] Do you feel stress - tense, restless, nervous, or anxious, or unable to sleep at night because your mind is troubled all the time - these days [OSQ] Very much [facility] (I/We) worried wheth er (my/our) food would run out before (I/we) got money to buy more. DK or Refused [facility] Start: 1985 Sex Assigned At Not on file [facility] Start: 03-31-2023 Gender identity Identifies as female gender (finding) [facility] History of Present illness Narrative 04-22-2023 Deep Henry NP - 04/22/2023 10:15 AM EST Note Date & Type Note Facility 04-22-2023 History of Toby cazares illness Narrative Images from the original note were not included. Chief Complaint Patient presents with Right Knee - Follow-up HISTORY OF PRESENT ILLNESS: Tereza Navarro is an 37 y.o. @ female. 3 weeks s/p depo inj 04/01 3 years s/p RT medial meniscectomy (DOS 02/28/2020). Recent onset x 3 months (01/2023). NKI. Only about 2 days of relief. Limping. Pain is mostly medial. Radiates up and down leg. Sharp pain and burning. Taking IBU and tramadol at HS. Difficulty sleeping. Admits swelling. Using cryocuff and CBD balm. Intermittent N/T. Admits locking up, especially from sit to stand. Admits giving out. Admits popping/grinding. States she is on her feet a lot at work. Prior tx: muscle relaxer, TYL, IBU, meloxicam, CBD balm, hemp gummies, cryocuff, XR [facility] 04/01/23, depo injection 04/01/23 ALLERGIES: Allergies Allergen Reactions Antihistamines, Diphenhydramine-Type Prednisone Diphenhydramine Hives, Itching, Rash and Unknown Latex Hives, Itching, Rash and Unknown HOME MEDICATIONS: Current Outpatient Medications Medication Instructions albuterol HFA 90 mcg/act inhaler 2 puffs, Inhalation, Every 6 hours PRN budesonide-formoterol (Symbicort) 160-4.5 MCG/ACT inhaler 2 puffs, Inhalation, 2 times daily, Rinse mouth with water after use to reduce aftertaste and incidence of candidiasis. Do not swallow. buPROPion XL (WELLBUTRIN XL) 150 mg, Oral, Daily, Do not crush, chew, or split. calcitriol (ROCALTROL) 0.25 mcg, Oral, Daily hydrOXYzine pamoate (VISTARIL) 25 mg, Oral, Every 8 hours, Anxiety magnesium oxide (MAG-OX) 400 mg, Oral, Daily Misc Natural Products (Osteo Bi-Flex Adv Triple St) tablet Oral montelukast (SINGULAIR) 10 mg, Oral, Nightly Putney-3 Fatty Acids (Fish Oil) 1000 MG capsule delayed-release Oral omeprazole (PRILOSEC) 20 mg, Oral, 2 times daily Potassium 99 MG tablet Every 24 hours traMADol (ULTRAM) 50 mg, Oral, Nightly PRN triamcinolone (Nasacort) 55 MCG/ACT nasal inhaler 2 sprays, Each Nostril, Daily PHYSICAL EXAM: Right Knee Exam Tenderness The patient is experiencing tenderness in the medial joint line (anterior knee). Range of Motion Extension: 0 Flexion: 120 Tests Varus: negative Valgus: negative Other Erythema: absent Sensation: normal Pulse: present Swelling: none Vitals: There is no height or weight on file to calculate BMI. IMAGING: ASSESSMENT: ICD-10-CM 1. Primary osteoarthritis of right knee M17.11 2. Right knee pain, unspecified chronicity M25.561 Procedures PLAN: Patient states that she had little to no relief with cortisone injection of right knee. I discussed treatment options with patient and recommend that she follow up with pain management for genicular nerve block. Patient verbalized understanding and will follow up with our office as needed. Questions answered in laymen terms at the bedside. The diagnosis, home exercise plan and any ongoing restrictions/ recommendations reviewed. If unable to be reached in office, I recommend evaluation at nearest Emergency Room if any symptoms worsened or new symptoms develop for requiring urgent evaluation. Deep Henry FILAMENT COIL WINDER-BASKETBALL ASSEMBLER documented in this encounter [facility] Telephone encounter Note 04-14-2023 Telephone Encounter - SILVER JAIMES - 04/14/2023 11:38 AM EST Note Date & Type Note Facility 04-14-2023 Telephone encount er Note jeannie from [facility] calling about pt's traMADol (Ultram) 50 MG tablet. They need it verified. You wrote a quanity of 15 days but the directions say 1 tablet PO for 10 days [facility] Note 04-14-2023 Telephone Encounter - SILVER JAIMES - 04/14/2023 11:38 AM EST Note Date & Type Note Facility 04-14-2023 Miscellaneous Notes Formattin g of this note might be different from the original. jeannie from [facility] calling about pt's traMADol (Ultram) 50 MG tablet. They need it verified. You wrote a quanity of 15 days but the directions say 1 tablet PO for 10 days documented in this encounter [facility] Evaluation note 02-26-2023 Note Date & Type Note Facility 02-26-2023 Evaluation note Encounter Date Diagnosis Assessment Notes Feb, Contact with and (suspected) exposure to covid-19 (ICD-10 - Z20.822) Feb, COVID-19 (ICD-10 - U07.1) Discharge Instructions for COVID-19 (Suspected or Confirmed ) material was printed Drink plenty of fluids, get plenty of rest. Take Tylenol or motrin as needed for aches, pains, fevers. You must quarentine for 5 days after the onset of your symptoms of covid. Follow up with your PCP if no improvement in 2-3 days. [facility] Other Evaluation note Note Date & Type Note Facility Evaluation note Diagnosis Chronic pain of right knee documented in this encounter [facility] Evaluation note Note Date & Type Note Facility Evaluation note Diagnosis Primary osteoarthritis of right knee- Primary Right knee pain, unspecified chronicity documented in this encounter [facility] History general Narrative - Reported Note Date & Type Note Facility History general Narrative - Reported Type Medical History diabetes Medical History asthma Medical History hx of syncope Medical History Gastro-esophageal re flux disease without esophagitis Surgical History hernia surgery X2 Surgical History gall bladder removed Hospitalization History see above surgical hx Hospitalization History 2 child births [facility] Other Summary Purpose Family History No Family History Records FoundNo Family History Records Found Advance Directives No Advanced Directives Records FoundNo Advanced Directives Records Found Additional Source Comments INFORMATION SOURCE (unrecogn ized section and content) DATE CREATED AUTHOR 06/01/2022 [facility] DATE CREATED AUTHOR AUTHOR'S ORGANIZ ATION 04/24/2023 [facility] EPIC REASON FOR VISIT (unrecogniz ed section and content) Reason Comments Follow-up Care Teams (unrecognized sec tion and content) Highway Engineering Technician Relationship Specialty Start Date End Date Chris Pelaez MD [address] [place] [id number] PCP - General Family Medicine 04/01/23 Elvie Greer NP [address] [place] [address] Nurse Practitioner Family Medicine 04/01/23 Highway Engineering Technician Relationship Specialty Start Date End Date Chris Pelaez MD [address] [place] [address] PCP - General Family Medicine 04/01/23 Elvie Greer NP [address] [place] [id number] Nurse Practitioner Family Medicine 04/01/23 FOR RECORDS PERTAINING TO PATIENTS WHO ARE OR HAVE BEEN ENROLLED IN A CHEMICAL DEPENDENCY/SUBSTANCEABUSE PROGRAM, SOME INFORMATION MAY BE OMITTED. This clinical summary was aggregated from multiple sources. Caution should be exercised in using it in the provision of clinical care. This summary normalizes information from multiple sources, and as a consequence, information in this document may materially change the coding, format and clinical context of patient data. In addition, data may be omitted in some cases. CLINICAL DECISIONS SHOULD BE BASED ON THE PRIMARY CLINICAL RECORDS. [facility] [employer] [facility]. provides no warranty or guarantee of the accuracy or completeness of information in this document.
== END 2023-05-06 23:59 | disposition home or self-care (01) ==
LOC: LAB 05-10 09:29
PROVIDERS: PCP Nurse Practitioner; Visit Provider Nurse Practitioner
DX: F41.9 Anxiety disorder, unspecified (principal); F32.A Depression, unspecified; K21.9 Gastro-esophageal reflux disease without esophagitis; R73.09 Other abnormal glucose; E83.42 Hypomagnesemia
CPT/HCPCS: 36415; 80053; 80061; 81003; 82043; 82570; 83036; 84439; 84443; 85025

== ENCOUNTER 2023-05-06 11:41 | Outpatient (OUT) | payer OTHER, SELFPAY ==
--- NOTE | 2023-05-06 12:14 | PM.CN ---
Consult Note: HPI Data of Consult Patient: new to practice Requesting Physician: Rylie Wells NP Primary Care Provider: Elvie Greer NP Consult Narrative Reason for consult: right knee pain Narrative: Tereza Navarro a pleasant 37 year old female presents for evaluation and management of chronic right knee pain. Has had an arthroscopy and right medial meniscectomy in the past. Patient had right knee injection with Dr Engle office with no relief. Patient was referred here for consideration of right genicular nerve block and RFA. At this time the patients current insurance will not cover genicular RFAs. If we were do the genicular nerve block her insurance does cover PNS but the doctors here do not perform this. Patient has failed to benefit from PT in the past, last completed in 2019. Patient is interested in aquatic therapy. Patient is not a surgical candidate at this time, with her age and her current BMI >50. Patient is open to viscous injection therapy. Patient finds mild benefit to ibuprofen, tylenol, tramadol, and CBD/hemp balm. Patient denies numbness/tingling/weakness. cc:: CC: Rylie Wells NP Review of Systems ROS Status of ROS 10 or more systems reviewed and unremarkable except as noted in history and below Musculoskeletal Reports: joint pain Exam Constitutional Documenting provider has reviewed patient's vital signs: yes Common normals: no apparent distress, oriented x3, healthy appearing, alert and well nourished General appearance: cooperative Nutritional appearance: obese [facility] Common normals: normocephalic, hearing grossly normal bilaterally and moist oral mucous membranes Head and scalp: normocephalic Eye Common normals: PERRL Pupil: PERRL Neck & C-Spine Common normals: full ROM General: normal visual inspection Chest Common normals: inspection of chest normal Respiratory Common normals: normal respiratory effort, no retractions and no use of accessory muscles Extremity Right lower extremity: knee joint Other: right knee enlarged diameter, edema noted, crepitus on exam. increased pain with medial and lateral stress testing. no instability noted. Neuro Common normals: oriented x3, CN's II-XII intact bilaterally, moves all extremities, no focal motor deficits, no sensory deficits noted and deep tendon reflexes 2+ bilaterally Sensorium/orientation: alert Gait (neuro): antalgic Motor exam: strength 5/5 throughout and no movement abnormalities noted Psych Common normals: mental status grossly normal, thought process normal, cooperative, affect normal, speech normal and activity/motor behavior normal Speech: normal speech Thought process: normal thought process Results Additional Findings Additional findings: I have checked an [facility]AR[facility] report on this patient today and there are no aberrancies noted in the prescribing history.?? A drug screen was completed and reviewed within the last year, and if there has not been a drug screen completed we ordered one today to monitor higher risk, state monitored pain medication use. As part of providing excellent, safe, comprehensive care, the following was completed at our patient's visit: 1. A medication reconciliation and review to ensure accurate knowledge of current/active medications, including asking our patients to inform us about any [id number]-uphmswa medications or herbal remedies/nutritional supplements/alternative remedies. 2. A review to specifically ensure our patients have had annual screening for: elevated body mass index (BMI), tobacco use, screening for depression, and screening for unhealthy alcohol use. When screening is concerning, patients are provided with education and the specific recommendation to discuss the concerning health issue and treatment options with their primary care provider. Assessment and Plan Assessment and Plan (1) Osteoarthritis of right knee: (2) Right knee pain: (3) Obesity: Plan start aquatherapy continue current medications, heat/ice, and TENS VERIFICATION REP reviewed and signed, continue tramadol through PCP f/u 2 months
== END 2023-05-06 11:42 | disposition home or self-care (01) ==
LOC: PM 11:41
PROVIDERS: PCP Nurse Practitioner; Visit Provider Nurse Practitioner
DX: M17.11 Unilateral primary osteoarthritis, right knee (principal); M25.561 Pain in right knee; E66.9 Obesity, unspecified; F41.9 Anxiety disorder, unspecified; F32.A Depression, unspecified; K21.9 Gastro-esophageal reflux disease without esophagitis; R73.09 Other abnormal glucose; E83.42 Hypomagnesemia
CPT/HCPCS: 36415; 80053; 80061; 81003; 82043; 82570; 83036; 84439; 84443; 85025; G0463

== ENCOUNTER 2023-05-14 16:16 | Outpatient (RCR) | payer OTHER, SELFPAY | END 2023-06-30 10:03 | disposition home or self-care (01) | LOC: PT 16:16 | PROVIDERS: PCP Nurse Practitioner; Visit Provider Nurse Practitioner | DX: M17.11 Unilateral primary osteoarthritis, right knee (principal); M25.561 Pain in right knee | CPT/HCPCS: 97110; 97113; 97161 ==

== ENCOUNTER 2023-05-27 20:01 | Outpatient (REF) | payer OTHER, SELFPAY ==
--- OUTSIDE RECORDS SUMMARY | 2023-05-27 20:06 | XMS_ITS | CCD ---
Author Organization [facility] Care Team Providers Care Social Work Manager Name Role Phone GILL, FURNITURE ASSOCIATE ELVIE Primary Care Unavailable ABEL, DR KRISTY Yarbrough Admitting Unavailable ABEL, DR KRISTY Yarbrough Consulting Unavailable ABEL, DR KRISTY Yarbrough Attending Unavailable CHAN RICHEY Consulting Unavailable AICHHOLZ, FURNITURE ASSOCIATE ELVIE Primary Care Unavailable AICHHOLZ, FURNITURE ASSOCIATE ELVIE Consulting Unavailable AICHHOLZ, FURNITURE ASSOCIATE ELVIE Attending Unavailable AICHHOLZ, FURNITURE ASSOCIATE ELVIE Admitting Unavailable AICHHOLZ, FURNITURE ASSOCIATE ELVIE Primary Care Unavailable KARASIK ., DR FOFANA Consulting Unavailabl e BO ., DR FOFANA Attending Unavailvishal e BO ., DR FOFANA Admitting Unavailabl e Mary Jo Thibodeaux Unavailable Aichholz ELECTRICAL TROUBLESHOOTER, Elvie Unavailable Chris Pelaez MD Primary Care Provider DEEP HENRY Attending Unavailable DEEP HENRY Referring Unavailable AICHHOLZ, ELVIE Attending Unavailable DEEP HENRY Attending Unavailable AICHHOLZ, ELVIE Attending Unavailable Allergies Allergy Classification Reported Allergen(s) Allergy Type Date of Onset Reaction(s) Facility (1 source) diphenhydrAMINE Drug Allergy [facility] (1 source) Latex Drug allergy (disorder) [facility] (1 source) diphenhydrAMINE Drug Allergy Unknown [facility] Other (1 source) Latex Propensity to adverse reactions Unknown [facility] [employer] [facility] Other (3 sources) diphenhydrAMINE Drug Allergy 06-03-20 20 Hives, Itching, Rash, Unknown [facility] (3 sources) Latex Propensity to adverse reactions 08-09-19 Hives, Itching, Rash, Unknown [facility] (3 sources) Prednisone Propensity to adverse reactions 04-01-19 [facility] (3 sources) Antihistamines, Diphenhydramine-Ty pe Propensity to adverse reactions 04-01-19 [facility] Medications Current Medications Medication Drug Class(es) Dates Sig (Normalized) Sig (Original) 8 hr acetaminophen 650 mg extended release oral tablet (1 source) take 2 tablets by mouth every eight hours Acetaminophen ER 650 MG 2 tablets as needed Orally every 8 hrs Active [id number] 200 actuat albuterol 0.09 mg/actuat metered dose [...] 30 tablet 1 04/13/2023 05/13/2023 Active calcitriol 0.48087 mg oral capsule (3 sources) Vitamin D3 [...] bedtime 90 tablet 1 04/13/2023 07/12/2023 Active Solon-3 Fatty Acids (Fish Oil) 1000 MG capsule delayed-release (3 sources) Solon-3 Fatty Ac ids (Fish Oil) 1000 MG [...] 02-25-2022 Episodic Other aftercare (1 source) Other custodial (current) drug therapy; Translations: [OTH SENIOR CARE CURRENT DRUG THERAPY] Onset: 02-25-2022 Episodic Other [...] (COVID-19) RNA LIANNE+probe Ql (Unsp spec) Positive [employer] Other COVID + FLU Quick Testing Negative [employer] Other CBC AUTO DIFFon 05-28-2022 BASO # 0.0 103/ul Normal 0.0-0.1 [facility] Comment on above: Performed By: #### C BC #### [facility] [address] [address] [address] Tracey Mccoy Basophils/100 WBC (Bld) 0.3 % Normal 0.2-2.0 [facility] Comment on above: Performed By: #### C BC #### [facility] [address] [place] [address] Dr. Tracey Mccoy EO # 0.2 103/ul Normal 0.0-0.7 [facility] Comment on above: Performed By: #### C BC #### [facility] [address] [place] [address] Dr. Tracey Mccoy Eosinophils/100 WBC (Bld) 1.7 % Normal 0.9-7.0 [facility] Comment on above: Performed By: #### C BC #### [facility] [address] [place] [address] Dr. Tracey Mccoy Erythrocyte distribution width (RBC) [Ratio] 12.4 % Normal 11.0-15.0 [facility] Comment on above: Performed By: #### C BC #### [facility] [address] [place] [address] Dr. Tracey Mccoy Hematocrit (Bld) [Volume fraction] 36.2 % Normal 36.0-48.0 [facility] Comment on above: Performed By: #### C BC #### [facility] [address] [place] [address] Dr. Tracey Mccoy Hemoglobin (Bld) [Mass/Vol] 12.2 g/dL Normal 12.0-16.0 [facility] Comment on above: Performed By: #### C BC #### [facility] [address] [place] [address] Dr. Tracey Mccoy IG # 0.05 10e3/ul Critically high 0.00-0.03 [facility] Comment on above: Performed By: #### C BC #### [facility] [address] [place] [address] Dr. Tracey Mccoy IG % 0.5 % Normal 0.0-0.5 [facility] Comment on above: Performed By: #### C BC #### [facility] [address] [place] [address] Dr. Tracey Mccoy LYMPH # 2.3 103/ul Normal 1.2-3.8 [facility] Comment on above: Performed By: #### C BC #### [facility] [address] [place] [address] Dr. Tracey Mccoy Lymphocytes/100 WBC (Bld) 25.6 % Normal 20.5-60.0 [facility] Comment on above: Performed By: #### C BC #### [facility] [address] [place] [address] Dr. Tracey Mccoy MANUAL DIFF REQ NO Normal [facility] Comment on above: Performed By: #### C BC #### [facility] [address] [place] [address] Dr. Tracey Mccoy MCH (RBC) [Entitic mass] 29.0 pg Normal 26.7-34.0 [facility] Comment on above: Performed By: #### C BC #### [facility] [address] [place] [address] Dr. Tracey Mccoy MCHC (RBC) [Mass/Vol] 33.7 g/dL Normal 29.9-35.2 [facility] Comment on above: Performed By: #### C BC #### [facility] [address] [place] [address] Dr. Tracey Mccoy MCV (RBC) [Entitic vol] 86.0 fL Normal 81.0-99.0 [facility] Comment on above: Performed By: #### C BC #### [facility] [address] [place] [address] Dr. Tracey Mccoy MONO # 0.7 103/ul Normal 0.3-0.8 [facility] Comment on above: Performed By: #### C BC #### [facility] [address] [place] [address] Dr. Tracey Mccoy Monocytes/100 WBC (Bld) 7.7 % Normal 1.7-12.0 [facility] Comment on above: Performed By: #### C BC #### [facility] [address] [place] [address] Dr. Tracey Mccoy NEUT # 5.9 103/ul Normal 1.4-6.5 [facility] Comment on above: Performed By: #### C BC #### [facility] [address] [place] [address] Dr. Tracey Mccoy Neutrophils/100 WBC (Bld) 64.2 % Normal 43.0-75.0 [facility] Comment on above: Performed By: #### C BC #### [facility] [address] [place] [address] Dr. Tracey Mccoy Platelet mean volume (Bld) [Entitic vol] 9.5 fL Normal 9.5-13.5 [facility] Comment on above: Performed By: #### C BC #### [facility] [address] [place] [address] Dr. Tracey Mccoy PLT 348 103/ul Normal 150-450 [facility] Comment on above: Performed By: #### C BC #### [facility] [address] [place] [address] Dr. Tracey Mccoy RBC 4.21 106/ul Normal 4.20-5.40 [facility] Comment on above: Performed By: #### C BC #### [facility] [address] [place] [address] Dr. Tracey Mccoy WBC 9.2 103/ul Normal 4.0-11.0 [facility] Comment on above: Performed By: #### C BC #### [facility] [address] [place] [address] Dr. Tracey Mccoy FERRITINon 05-28-2022 Ferritin [Mass/Vol] 15.0 ng/mL Normal 6.2-137.0 [facility] Comment on above: Performed By: #### F ERR #### [facility] [address] [place] [address] Dr. Tracey Mccoy MAGNESIUMon 05-28-2022 Magnesium [Mass/Vol] 1.7 mg/dL Critically low 1.8-2.4 [facility] Comment on above: Performed By: #### M Vivienne, CMP #### [facility] [address] [place] [address] Dr. Tracey Mccoy PROF 14(COMP METB)on 023 Albumin [Mass/Vol] 3.7 g/dL Normal 3.4-5.0 [facility] Comment on above: Performed By: #### M G, CMP #### [facility] [address] [place] [address] Dr. Tracey Mccoy Albumin/Globulin [Mass ratio] 1.0 {ratio} Normal [facility] Comment on above: Performed By: #### M G, CMP #### [facility] [address] [place] [address] Dr. Tracey Mccoy ALP [Catalytic activity/Vol] 89 U/L Normal 46-116 [facility] Comment on above: Performed By: #### M G, CMP #### [facility] [address] [place] [address] Dr. Tracey Mccoy ALT [Catalytic activity/Vol] 26 U/L Normal 14-59 [facility] Comment on above: Performed By: #### M G, CMP #### [facility] [address] [place] [address] Dr. Tracey Mccoy Anion gap [Moles/Vol] 13.2 mmol/L Normal [facility] Comment on above: Performed By: #### M G, CMP #### [facility] [address] [place] [address] Dr. Tracey Mccoy AST [Catalytic activity/Vol] 19 U/L Normal 15-37 [facility] Comment on above: Performed By: #### M G, CMP #### [facility] [address] [place] [address] Dr. Tracey Mccoy Bilirubin [Mass/Vol] 0.6 mg/dL Normal 0.2-1.0 [facility] Comment on above: Performed By: #### M Vivienne, CMP #### [facility] [address] [place] [address] Dr. Tracey Mccoy Calcium [Mass/Vol] 9.2 mg/dL Normal 8.5-10.1 [facility] Comment on above: Performed By: #### M G, CMP #### [facility] [address] [place] [address] Dr. Tracey Mccoy Chloride [Moles/Vol] 101 mmol/L Normal 98-107 [facility] Comment on above: Performed By: #### M G, CMP #### [facility] [address] [place] [address] Dr. Tracey Mccoy CO2 [Moles/Vol] 26.9 mmol/L Normal 21.0-32.0 [facility] Comment on above: Performed By: #### M G, CMP #### [facility] [address] [place] [address] Dr. Tracey Mccoy Creatinine [Mass/Vol] 0.47 mg/dL Critically low 0.55-1.02 [facility] Comment on above: Performed By: #### M G, CMP #### [facility] [address] [place] [address] Dr. Tracey Mccoy EGFR-AF VINCENTIAN >60 Normal >=60 [facility] Comment on above: Performed By: #### M G, CMP #### [facility] [address] [place] [address] Dr. Tracey Mccoy EGFR-NON AF VINCENTIAN >60 Normal >=60 [facility] Comment on above: Performed By: #### M G, CMP #### [facility] [address] [place] [address] Dr. Tracey Mccoy Globulin (S) [Mass/Vol] 3.6 g/dL Normal [facility] Comment on above: Performed By: #### M G, CMP #### [facility] [address] [place] [address] Dr. Tracey Mccoy Glucose [Mass/Vol] 88 mg/dL Normal 74-106 [facility] Comment on above: Performed By: #### M G, CMP #### [facility] [address] [place] [address] Dr. Tracey Mccoy Potassium [Moles/Vol] 4.1 mmol/L Normal 3.5-5.1 [facility] Comment on above: Performed By: #### M Vivienne, CMP #### [facility] [address] [address] [address] Tracey Mccoy Protein [Mass/Vol] 7.3 g/dL Normal 6.4-8.2 [facility] Comment on above: Performed By: #### M G, CMP #### [facility] [address] [address] [address] Tracey Mccoy Sodium [Moles/Vol] 137 mmol/L Normal 136-145 [facility] Comment on above: Performed By: #### M Vivienne, CMP #### [facility] [address] [place] [address] Dr. Tracey Mccoy Urea nitrogen [Mass/Vol] 5.0 mg/dL Critically low 7.0-18.0 [facility] Comment on above: Performed By: #### Jama Palafox, CMP #### [facility] [address] [place] [address] Dr. Tracey Mccoy Urea nitrogen/Creatinin e [Mass ratio] 10.6 mg/mg Normal [facility] Comment on above: Performed By: #### Jama Palafox, CMP #### [facility] [address] [place] [address] Dr. Tracey Mccoy PAP ACOG PANEL 2: 30 to 65on 05-14-2022 . . Normal [facility] Comment on above: Result Comment: Perf ormed at: WB Performed By: #### [id number] #### [facility] [address] [place] [address] Dr. Tracey Mccoy Age Gdln ACOG Testing 30-65 [facility] Comment on above: Performed By: #### [id number] #### [facility] [address] [place] [address] Dr. Tracey Mccoy DIAGNOSIS: Comment Normal [facility] Comment on above: Result Comment: NEGA TIVE FOR INTRAEPITHELIAL LESION OR MALIGNANCY. Performed at: WB Performed By: #### [id number] #### [facility] [address] [place] [address] Dr. Tracey Mccoy HPV Aptima Negative Normal Negative [facility] Comment on above: Result Comment: This nucleic acid amplification test detects fourteen high-risk HPV types (16,18,31,33,35,39,45,51,52,56,58,59,66,68) without differentiation. Performed at: =G Performed By: #### [id number] #### [facility] [address] [place] [address] Dr. Tracey Mccoy HPV Genotype Reflex Comment Normal [facility] Comment on above: Result Comment: Crit eria not met, HPV Genotype not performed. Performed at: WB Performed By: #### [id number] #### [facility] [address] [place] [address] Dr. Tracey Mccoy Methodology: Comment Normal [facility] Comment on above: Result Comment: This liquid based ThinPrep(R) pap test was screened with the use of an image guided system. Performed at: WB Performed By: #### [id number] #### [facility] [address] [place] [address] Dr. Tracey Mccoy Note: Comment Normal [facility] Comment on above: Result Comment: The Pap smear is a screening test designed to aid in the detection of premalignant and malignant conditions of the uterine cervix. It is not a diagnostic procedure and should not be used as the sole means of detecting cervical cancer. Both false-positive and false-negative reports do occur. . Performed at: WB Performed By: #### [id number] #### [facility] [address] [place] [address] Dr. Tracey Mccoy Performed by: Comment Normal [facility] Comment on above: Result Comment: Daysi Cheema, President Practicing Urologist Performed at: WB Performed By: #### [id number] #### [facility] [address] [place] [address] Dr. Tracey Mccoy Specimen adequacy: Comment Normal [facility] Comment on above: Result Comment: Sati sfactory for evaluation. Endocervical and/or squamous metaplastic cells (endocervical component) are present. Performed at: WB Performed By: #### [id number] #### [facility] [address] [place] [address] Dr. Tracey Mccoy BNPon 02-23-2022 Natriuretic peptide B (Bld) [Mass/Vol] 37.0 pg/mL Normal <=450.0 [facility] Comment on above: Performed By: #### B ELECTRICAL TROUBLESHOOTER #### [facility] [address] [place] [address] Dr. Tracey Mccoy CBC AUTO DIFFon 02-23-2022 BASO # 0.0 103/ul Normal 0.0-0.1 [facility] Comment on above: Performed By: #### C BC #### [facility] [address] [place] [address] Dr. Tracey Mccoy Basophils/100 WBC (Bld) 0.3 % Normal 0.2-2.0 [facility] Comment on above: Performed By: #### C BC #### [facility] [address] [place] [address] Dr. Tracey Mccoy EO # 0.0 103/ul Normal 0.0-0.7 [facility] Comment on above: Performed By: #### C BC #### [facility] [address] [place] [address] Dr. Tracey Mccoy Eosinophils/100 WBC (Bld) 0.3 % Critically low 0.9-7.0 [facility] Comment on above: Performed By: #### C BC #### [facility] [address] [place] [address] Dr. Tracey Mccoy Erythrocyte distribution width (RBC) [Ratio] 12.9 % Normal 11.0-15.0 [facility] Comment on above: Performed By: #### C BC #### [facility] [address] [place] [address] Dr. Tracey Mccoy Hematocrit (Bld) [Volume fraction] 37.5 % Normal 36.0-48.0 [facility] Comment on above: Performed By: #### C BC #### [facility] [address] [place] [address] Dr. Tracey Mccoy Hemoglobin (Bld) [Mass/Vol] 12.1 g/dL Normal 12.0-16.0 [facility] Comment on above: Performed By: #### C BC #### [facility] [address] [place] [address] Dr. Tracey Mccoy IG # 0.02 10e3/ul Normal 0.00-0.03 [facility] Comment on above: Performed By: #### C BC #### [facility] [address] [place] [address] Dr. Tracey Mccoy IG % 0.3 % Normal 0.0-0.5 [facility] Comment on above: Performed By: #### C BC #### [facility] [address] [place] [address] Dr. Tracey Mccoy LYMPH # 2.0 103/ul Normal 1.2-3.8 [facility] Comment on above: Performed By: #### C BC #### [facility] [address] [place] [address] Dr. Tracey Mccoy Lymphocytes/100 WBC (Bld) 28.4 % Normal 20.5-60.0 [facility] Comment on above: Performed By: #### C BC #### [facility] [address] [place] [address] Dr. Tracey Mccoy MANUAL DIFF REQ NO Normal [facility] Comment on above: Performed By: #### C BC #### [facility] [address] [place] [address] Dr. Tracey Mccoy MCH (RBC) [Entitic mass] 28.5 pg Normal 26.7-34.0 [facility] Comment on above: Performed By: #### C BC #### [facility] [address] [place] [address] Dr. Tracey Mccoy MCHC (RBC) [Mass/Vol] 32.3 g/dL Normal 29.9-35.2 [facility] Comment on above: Performed By: #### C BC #### [facility] [address] [place] [address] Dr. Tracey Mccoy MCV (RBC) [Entitic vol] 88.4 fL Normal 81.0-99.0 [facility] Comment on above: Performed By: #### C BC #### [facility] [address] [address] [address] Tracey Mccoy MONO # 0.5 103/ul Normal 0.3-0.8 [facility] Comment on above: Performed By: #### C BC #### [facility] [address] [address] [address] Tracey Mccoy Monocytes/100 WBC (Bld) 7.7 % Normal 1.7-12.0 [facility] Comment on above: Performed By: #### C BC #### [facility] [address] [place] [address] Dr. Tracey Mccoy NEUT # 4.4 103/ul Normal 1.4-6.5 [facility] Comment on above: Performed By: #### C BC #### [facility] [address] [place] [address] Dr. Tracey Mccoy Neutrophils/100 WBC (Bld) 63.0 % Normal 43.0-75.0 [facility] Comment on above: Performed By: #### C BC #### [facility] [address] [place] [address] Dr. Tracey Mccoy Platelet mean volume (Bld) [Entitic vol] 9.2 fL Critically low 9.5-13.5 [facility] Comment on above: Performed By: #### C BC #### [facility] [address] [place] [address] Dr. Tracey Mccoy PLT 278 103/ul Normal 150-450 [facility] Comment on above: Performed By: #### C BC #### [facility] [address] [place] [address] Dr. Tracey Mccoy RBC 4.24 106/ul Normal 4.20-5.40 [facility] Comment on above: Performed By: #### C BC #### [facility] [address] [place] [address] Dr. Tracey Mccoy WBC 6.9 103/ul Normal 4.0-11.0 [facility] Comment on above: Performed By: #### C BC #### [facility] [address] [address] [address] Tracey Mccoy PROF 14(COMP METB)on 022 Albumin [Mass/Vol] 3.7 g/dL Normal 3.4-5.0 [facility] Comment on above: Performed By: #### C MP, HSTROPN #### [facility] [address] [address] [address] Tracey Mccoy Albumin/Globulin [Mass ratio] 0.9 {ratio} Normal [facility] Comment on above: Performed By: #### C MP, HSTROPN #### [facility] [address] [address] [address] Tracey Mccoy ALP [Catalytic activity/Vol] 103 U/L Normal 46-116 [facility] Comment on above: Performed By: #### C MP, HSTROPN #### [facility] [address] [address] [address] Tracey Mccoy ALT [Catalytic activity/Vol] 67 U/L Critically high 14-59 [facility] Comment on above: Performed By: #### C MP, HSTROPN #### [facility] [address] [address] [address] Tracey Mccoy Anion gap [Moles/Vol] 9.6 mmol/L Normal [facility] Comment on above: Performed By: #### C MP, HSTROPN #### [facility] [address] [address] [address] Tracey Mccoy AST [Catalytic activity/Vol] 100 U/L Critically high 15-37 [facility] Comment on above: Performed By: #### C MP, HSTROPN #### [facility] [address] [address] [address] Tracey Mccoy Bilirubin [Mass/Vol] 0.4 mg/dL Normal 0.2-1.0 [facility] Comment on above: Performed By: #### C MP, HSTROPN #### [facility] [address] [address] [address] Tracey Mccoy Calcium [Mass/Vol] 8.8 mg/dL Normal 8.5-10.1 [facility] Comment on above: Performed By: #### C MP, HSTROPN #### [facility] [address] [address] [address] Tracey Mccoy Chloride [Moles/Vol] 104 mmol/L Normal 98-107 [facility] Comment on above: Performed By: #### C MP, HSTROPN #### [facility] [address] [place] [address] Dr. Tracey Mccoy CO2 [Moles/Vol] 28.5 mmol/L Normal 21.0-32.0 [facility] [facility] Comment on above: Performed By: #### C JASIEL, HSTROPN #### [facility] [address] [place] [address] Dr. Tracye Mccoy Creatinine [Mass/Vol] 0.71 mg/dL Normal 0.55-1.02 [facility] Comment on above: Performed By: #### C JASIEL, HSTROPN #### [facility] [address] [place] [address] Dr. Tracey Mccoy EGFR-AF VINCENTIAN >60 Normal >=60 [facility] Comment on above: Performed By: #### C JASIEL, HSTROPN #### [facility] [address] [place] [address] Dr. Tracey Mccoy EGFR-NON AF VINCENTIAN >60 Normal >=60 [facility] Comment on above: Performed By: #### C JASIEL, HSTROPN #### [facility] [address] [place] [address] Dr. Tracey Mccoy Globulin (S) [Mass/Vol] 3.9 g/dL Normal [facility] Comment on above: Performed By: #### C JASIEL, HSTROPN #### [facility] [address] [place] [address] Dr. Tracey Mccoy Glucose [Mass/Vol] 113 mg/dL Critically high 74-106 [facility] Comment on above: Performed By: #### C MP, HSTROPN #### [facility] [address] [place] [address] Dr. Tracey Mccoy Potassium [Moles/Vol] 3.1 mmol/L Critically low 3.5-5.1 [facility] Comment on above: Performed By: #### C JASIEL, HSTROPN #### [facility] [address] [address] [address] Tracey Mccoy Protein [Mass/Vol] 7.6 g/dL Normal 6.4-8.2 [facility] Comment on above: Performed By: #### C JASIEL, HSTROPN #### [facility] [address] [address] [address] Tracey Mccoy Sodium [Moles/Vol] 139 mmol/L Normal 136-145 [facility] Comment on above: Performed By: #### C JASIEL, HSTROPN #### [facility] [address] [address] [address] Tracey Mccoy Urea nitrogen [Mass/Vol] 9.0 mg/dL Normal 7.0-18.0 [facility] Comment on above: Performed By: #### C JASIEL, HSTROPN #### [facility] [address] [address] [address] Tracey Mccoy Urea nitrogen/Creatinin e [Mass ratio] 12.7 mg/mg Normal [facility] Comment on above: Performed By: #### C JASIEL, HSTROPN #### [facility] [address] [place] [address] Dr. Tracey Mccoy TROPONIN, HIGH SENSITIVITYon 02-23-2022 HSTROP 5.8 pg/mL Normal 4.0-51.3 [facility] Comment on above: Result Comment: CUT- OFF POINTS HAVE BEEN ESTABLISHED BASED ON THE FOURTH UNIVERSAL DEFINITIONS OF MYOCARDIAL INFARCTION. THE UPPER REFERENCE LIMIT (URL) OF TROPONIN, DEFINED THE 99TH PERCENTILE OF cTnI DISTRIBUTION IN A REFERENCE POPULATION, HAS BEEN CONFIRMED THE DECISION THRESHOLD FOR [place] DIAGNOSIS. Performed By: #### C JASIEL, HSTROPN #### [facility] [address] [address] [address] Tracey Mccoy XR CHEST 1 Von [...] by: CHAN RICHEY Date: 2022-02-23 03:04 Normal [facility] Vital Signs Date Time Vital Sign Value Performing Clinician Facility 02-26-2023 09:45-0500 Body height 157.48 cm Mary Jo Thibodeaux Other [facility] Other 02-26-2023 09:45-0500 Body mass index (BMI) [Ratio] 57.13 kg/m2 Mary Jo Thibodeaux Other [facility] Other 02-26-2023 09:45-0500 Body temperature 97.2 [degF] Mary Jo Thibodeaux Other [facility] Other 02-26-2023 09:45-0500 Body weight 141.7 kg Mary Jo Thibodeaux Other [facility] Other 02-26-2023 09:45-0500 Diastolic blood pressure 86 mm[Hg] Mary Jo Thibodeaux Other [facility] Other 02-26-2023 09:45-0500 Respiratory rate 18 /min Mary Jo Thibodeaux Other [facility] Other 02-26-2023 09:45-0500 SaO2% (BldA) [Mass fraction] 98 % Mary Jo Thibodeaux Other [facility] Other 02-26-2023 09:45-0500 Systolic blood pressure 136 mm[Hg] Mary Jo Thibodeaux Other [facility] Other Encounters Encounter Date Encounter Type Care Provider Facility Start: 05-18-2023 End: 05-18-2023 ambulatory ELVIE AICMaryHOLZ Not Available Start: 04-22-2023 End: 04-22-2023 ambulatory DEEP HENRY Not Available Start: 04-22-2023 End: 04-22-2023 Office outpatient visit 10 minutes Deep Henry ELECTRICAL TROUBLESHOOTER Work Phone: [facility] Comment on above: Primary osteoarthrit is of right knee (Primary Dx); Right knee pain, unspecified chronicity Start: 04-14-2023 Telephone encounter Elvie Mat darnell ELECTRICAL TROUBLESHOOTER Work Phone: [facility] Start: 04-13-2023 End: 04-13-2023 ambulatory ELVIE AICMaryHOLZ Not Available Start: 04-01-2023 End: 04-02-2023 ambulatory DEEP HENRY Not Available Start: 02-26-2023 End: 02-26-2023 ambulatory Mary Jo Thibodeaux Other [facility] Other Start: 02-26-2023 Office outpatient vi sit 15 minutes Mary Jo Thibodeaux [facility] Start: 05-28-2022 End: 05-29-2022 ambulatory FURNITURE ASSOCIATE ELVIE AICHHOLZ Facility:[facility]1 Start: 05-06-2022 End: 05-06-2022 ambulatory FURNITURE ASSOCIATE ELVIE AICHHOLZ Facility:[facility] Start: 02-23-2022 End: 02-23-2022 ambulatory FURNITURE ASSOCIATE ELVIE AICHHOLZ Facility:[facility]1 Plan of Treatment Date Care Activity Detail Author Start: 05-27-2023 End: 05-27-2023 Patient encounter procedure 05/27/2023 10:00 AM EDT Office Visit [facility] [address] [phone] Javier Morales DO [address] [place] [address] [facility] Start: 05-18-2023 End: 05-18-2023 Patient encounter procedure 05/18/2023 9:20 AM EDT [facility] [address] [place] [address] Elvie Greer, JONN [address] [place] [id number] [facility] Start: 04-22-2023 End: 04-22-2023 Patient encounter procedure 04/22/2023 10:15 AM EST [facility] [address] [phone] Deep Henry, JONN [address] [place], [place] [id number] [facility] Start: 11-18-2013 Screening for malignant neoplasm of cervix [facility] Start: 11-18-2004 Screening for malignant neoplasm of cervix Pap Smear [facility] Payers Date Payer Category Payer Unknown [employer] [id number] 2023-Present [address] [place] [address] [id number] 1983 Unknown [id number] 1983 Unknown [id number] 1983 Unknown [id number] 1983 Unknown [id number] 1983 Unknown [id number] 1983 Unknown [id number] 1983 Unknown [id number] 1983 Unknown [id number] 1959 Unknown [id number] Social History Date Type Detail Facility Start: 04-06-2023 End: 04-13-2023 Sex Assigned At [facility] Start: 04-01-2023 Tobacco smoking status [facility] Never smoked tobacco [facility] Work Phone: [...] to any clubs or organizations such as buddhism groups, unions, fraternal or athletic groups, or [...] 1985 Sex Assigned At Not on file [facility] Start: 03-31-2023 Gender identity Identifies as female gender (finding) [facility] History of Present illness Narrative 04-22-2023 Deep Henry NP - 04/22/2023 10:15 AM EST Note Date & Type Note Facility 04-22-2023 History of Presen t illness Narrative Images from the original note [...] Oral montelukast (SINGULAIR) 10 mg, Oral, Nightly Solon-3 Fatty Acids (Fish Oil) 1000 MG capsule [...] develop for requiring urgent evaluation. 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 [facility] Other Evaluation note Note Date & Type [...] surgical hx Hospitalization History 2 child births [facility] Other Summary Purpose Family History No Family History Records FoundNo Family History Records Found Advance Directives No Advanced Directives Records FoundNo Advanced Directives Records Found Additional Source Comments INFORMATION SOURCE (unrecogn ized section and content) DATE CREATED AUTHOR 06/01/2022 [facility] DATE CREATED AUTHOR AUTHOR'S ORGANIZ ATION 05/19/[address] [facility] Special[facility] EPIC REASON FOR VISIT (unrecogniz ed section and content) Reason Comments Follow-up Care Teams (unrecognized sec tion and content) Social Work Manager Relationship Specialty Start Date End Date Chris Pelaez MD [address] [place] [phone] PCP - General Family Medicine 04/01/23 Elvie Greer NP [address] [place] [phone] Nurse Practitioner Family Medicine 04/01/23 Social Work Manager Relationship Specialty Start Date End Date Chris Pelaez MD [address] [place] [address] PCP - General Family Medicine 04/01/23 Elvie Greer NP [address] [place] [address] Nurse Practitioner Family Medicine 04/01/23 FOR RECORDS [...] BE BASED ON THE PRIMARY CLINICAL RECORDS. [employer] provides no warranty or guarantee of the accuracy or completeness of information in this document.
[2023-06-01 17:09] LABS: Age Gdln ACOG Testing Note (.); HPV Aptima Negative (Negative); IGP, Aptima HPV, rfx 16/18,45 Note (.)
== END 2023-05-27 20:02 | disposition home or self-care (01) ==
LOC: LAB 20:01
PROVIDERS: PCP Nurse Practitioner; Visit Provider Obstetrics & Gynecology
DX: Z01.419 Encounter for gynecological examination (general) (routine) without abnormal findings (principal)
CPT/HCPCS: 87624; G0145

== ENCOUNTER 2023-06-08 09:36 | Outpatient (OUT) | payer OTHER, SELFPAY ==
--- OUTSIDE RECORDS SUMMARY | 2023-06-08 09:53 | XMS_ITS | CCD ---
Author Organization [facility] Care Team Providers Care [employer] Supervisor Name Role Phone GILL, CUSTOMER SERVICE COORDINATOR ELVIE Primary Care Unavailable ABEL, DR KRISTY Yarbrough Admitting Unavailable ABEL, DR KRISTY Yarbrough Consulting Unavailable ABEL, DR KRISTY Yarbrough Attending Unavailable CHAN RICHEY Consulting Unavailable AICHHOLZ, CUSTOMER SERVICE COORDINATOR ELVIE Primary Care Unavailable AICHHOLZ, CUSTOMER SERVICE COORDINATOR ELVIE Consulting Unavailable AICHHOLZ, CUSTOMER SERVICE COORDINATOR ELVIE Attending Unavailable AICHHOLZ, CUSTOMER SERVICE COORDINATOR ELVIE Admitting Unavailable AICHHOLZ, CUSTOMER SERVICE COORDINATOR ELVIE Primary Care Unavailable KARASIK ., DR FOFANA Consulting Unavailabl e BO ., DR FOFANA Attending Unavailvishal e BO ., DR FOFANA Admitting Unavailabl e Mary Jo Thibodeaux Unavailable Aichholz EMU FARM WORKER, Elvie Unavailable Chris Pelaez MD Primary Care Provider DEEP HENRY Attending Unavailable DEEP HENRY Referring Unavailable AICHHOLZ, ELVIE Attending Unavailable DEEP HENRY Attending Unavailable AICHHOLZ, ELVIE Attending Unavailable TIEN MORALES Attending Unavailable Rogelio Oviedo Attending Unavailab Rogelio Tariq Admitting Unavailab le Amadorhmicha, Elvie Tuan Primary Care Unavailable Allergies Allergy Classification Reported Allergen(s) Allergy Type Date of Onset Reaction(s) Facility (1 source) diphenhydrAMINE Drug Allergy [facility] Repository (1 source) Latex Drug allergy (disorder) [facility]ository (1 source) diphenhydrAMINE Drug Allergy Unknown [facility] Other (1 source) Latex Propensity to adverse reactions Unknown [facility] Other (3 sources) diphenhydrAMINE Drug Allergy 08-09-19 Hives, Itching, Rash, Unknown [facility] (3 sources) Latex Propensity to adverse reactions 08-09-19 Hives, Itching, Rash, Unknown [facility] (3 sources) Prednisone Propensity to adverse reactions 04-01-19 [facility] (3 sources) Antihistamines, Diphenhydramine-Ty pe Propensity to adverse reactions 04-01-19 [facility] Healthcare (1 source) diphenhydrAMINE Drug Allergy 02-27-20 [facility] Repository (1 source) Latex Drug allergy (disorder) 02-27-20 [facility] Repository Medications Current Medications Medication Drug Class(es) Dates Sig (Normalized) Sig (Original) 8 hr acetaminophen 650 mg extended release oral tablet (1 source) take 2 tablets by mouth every eight hours Acetaminophen ER 650 MG 2 tablets as needed Orally every 8 hrs Active [id number] 200 actuat albuterol 0.09 mg/actuat metered dose [...] 30 tablet 1 04/13/2023 05/13/2023 Active calcitriol 0.41890 mg oral capsule (3 sources) Vitamin D3 [...] bedtime 90 tablet 1 04/13/2023 07/12/2023 Active Speonk-3 Fatty Acids (Fish Oil) 1000 MG capsule delayed-release (3 sources) Speonk-3 Fatty Ac ids (Fish Oil) 1000 MG [...] 02-25-2022 Episodic Other aftercare (1 source) Other residential (current) drug therapy; Translations: [[facility] NURSE CURRENT DRUG THERAPY] Onset: 02-25-2022 Episodic Other [...] (COVID-19) RNA LIANNE+probe Ql (Unsp spec) Positive [facility] Other COVID + FLU Quick Testing Negative [facility] Other CBC AUTO DIFFon 05-28-2022 BASO # 0.0 103/ul Normal 0.0-0.1 [facility] Comment on above: Performed By: #### C BC #### [facility] [address] [place] [address] Dr. Tracey Mccoy Basophils/100 WBC (Bld) 0.3 % Normal 0.2-2.0 [facility] Comment on above: Performed By: #### C BC #### [facility] [address] [place] [address] Dr. Tracey Mccoy EO # 0.2 103/ul Normal 0.0-0.7 [facility] Comment on above: Performed By: #### C BC #### [facility] [address] [place] [address] Dr. Tracey Mccoy Eosinophils/100 WBC (Bld) 1.7 % Normal 0.9-7.0 [facility] Comment on above: Performed By: #### C BC #### [facility] [address] [address] [address] Tracey Mccoy Erythrocyte distribution width (RBC) [Ratio] 12.4 % Normal 11.0-15.0 [facility] Comment on above: Performed By: #### C BC #### [facility] [address] [place] [address] Dr. Tracey Mccoy Hematocrit (Bld) [Volume fraction] 36.2 % Normal 36.0-48.0 [facility] Comment on above: Performed By: #### C BC #### [facility] [address] [place] [address] Dr. Tracey Mccoy Hemoglobin (Bld) [Mass/Vol] 12.2 g/dL Normal 12.0-16.0 [facility] Comment on above: Performed By: #### C BC #### [facility] [address] [address] [address] Tracey Mccoy IG # 0.05 10e3/ul Critically high 0.00-0.03 [facility] Comment on above: Performed By: #### C BC #### [facility] [address] [address] [address] Tracey Mccoy IG % 0.5 % Normal 0.0-0.5 [facility] Comment on above: Performed By: #### C BC #### [facility] [address] [address] [address] Tracey Mccoy LYMPH # 2.3 103/ul Normal 1.2-3.8 [facility] Comment on above: Performed By: #### C BC #### [facility] [address] [place] [address] Dr. Tracey Mccoy Lymphocytes/100 WBC (Bld) 25.6 % Normal 20.5-60.0 [facility] Comment on above: Performed By: #### C BC #### [facility] [address] [place] [address] Dr. Tracey Mccoy MANUAL DIFF REQ NO [facility] Comment on above: Performed By: #### C BC #### [facility] [address] [place] [address] Dr. Tracey Mccoy MCH (RBC) [Entitic mass] 29.0 pg Normal 26.7-34.0 [facility] Comment on above: Performed By: #### C BC #### [facility] [address] [place] [address] Dr. Tracey Mccoy MCHC (RBC) [Mass/Vol] 33.7 g/dL Normal 29.9-35.2 [facility] Comment on above: Performed By: #### C BC #### [facility] [address] [place] [address] Dr. Tracey Mccoy MCV (RBC) [Entitic vol] 86.0 fL Normal 81.0-99.0 [facility] Comment on above: Performed By: #### C BC #### [facility] [address] [place] [address] Dr. Tracey Mccoy MONO # 0.7 103/ul Normal 0.3-0.8 [facility] Comment on above: Performed By: #### C BC #### [facility] [address] [place] [address] Dr. Tracey Mccoy Monocytes/100 WBC (Bld) 7.7 % Normal 1.7-12.0 [facility] Comment on above: Performed By: #### C BC #### [facility] [address] [place] [address] Dr. Tracey Mccoy NEUT # 5.9 103/ul Normal 1.4-6.5 [facility] Comment on above: Performed By: #### C BC #### [facility] [address] [place] [address] Dr. Tracey Mccoy Neutrophils/100 WBC (Bld) 64.2 % Normal 43.0-75.0 [facility] Comment on above: Performed By: #### C BC #### [facility] [address] [place] [address] Dr. Tracey Mccoy Platelet mean volume (Bld) [Entitic vol] 9.5 fL Normal 9.5-13.5 [facility] Comment on above: Performed By: #### C BC #### [facility] [address] [place] [address] Dr. Tracey Mccoy PLT 348 103/ul Normal 150-450 [facility] Comment on above: Performed By: #### C BC #### [facility] [address] [place] [address] Dr. Tracey Mccoy RBC 4.21 106/ul Normal 4.20-5.40 [facility] Comment on above: Performed By: #### C BC #### [facility] [address] [place] [address] Dr. Tracey Mccoy WBC 9.2 103/ul Normal 4.0-11.0 [facility] Comment on above: Performed By: #### C BC #### [facility] [address] [place] [address] Dr. Tracey Mccoy FERRITINon 05-28-2022 Ferritin [Mass/Vol] 15.0 ng/mL Normal 6.2-137.0 [facility] Comment on above: Performed By: #### F ERR #### [facility] [address] [place] [address] Dr. Tracey Mccoy MAGNESIUMon 05-28-2022 Magnesium [Mass/Vol] 1.7 mg/dL Critically low 1.8-2.4 [facility] Comment on above: Performed By: #### M G, CMP #### [facility] [address] [place] [address] Dr. Tracey Mccoy PROF 14(COMP METB)on 023 Albumin [Mass/Vol] 3.7 g/dL Normal 3.4-5.0 [facility] Comment on above: Performed By: #### M G, CMP #### [facility] [address] [place] [address] Dr. Tracey Mccoy Albumin/Globulin [Mass ratio] 1.0 {ratio} Normal [facility] Comment on above: Performed By: #### M G, CMP #### [facility] [address] [place] [address] Dr. Tracey Mccoy ALP [Catalytic activity/Vol] 89 U/L Normal 46-116 [facility] Comment on above: Performed By: #### M G, CMP #### [facility] [address] [place] [address] Dr. Tracey Mccoy ALT [Catalytic activity/Vol] 26 U/L Normal 14-59 [facility] Comment on above: Performed By: #### M G, CMP #### [facility] [address] [place] [address] Dr. Tracey Mccoy Anion gap [Moles/Vol] 13.2 mmol/L Normal [facility] Comment on above: Performed By: #### M G, CMP #### [facility] [address] [place] [address] Dr. Tracey Mccoy AST [Catalytic activity/Vol] 19 U/L Normal 15-37 [facility] Comment on above: Performed By: #### M G, CMP #### [facility] [address] [address] [address] Tracey Mccoy Bilirubin [Mass/Vol] 0.6 mg/dL Normal 0.2-1.0 [facility] Comment on above: Performed By: #### M G, CMP #### [facility] [address] [address] [address] Tracey Mccoy Calcium [Mass/Vol] 9.2 mg/dL Normal 8.5-10.1 [facility] Comment on above: Performed By: #### M G, CMP #### [facility] [address] [address] [address] Tracey Mccoy Chloride [Moles/Vol] 101 mmol/L Normal 98-107 [facility] Comment on above: Performed By: #### M G, CMP #### [facility] [address] [place] [address] Dr. Tracey Mccoy CO2 [Moles/Vol] 26.9 mmol/L Normal 21.0-32.0 [facility] Comment on above: Performed By: #### M G, CMP #### [facility] [address] [address] [address] Tracey Mccoy Creatinine [Mass/Vol] 0.47 mg/dL Critically low 0.55-1.02 [facility] Comment on above: Performed By: #### M G, CMP #### [facility] [address] [place] [address] Dr. Tracey Mccoy EGFR-AF SUDANESE >60 Normal >=60 [facility] Comment on above: Performed By: #### M G, CMP #### [facility] [address] [place] [address] Dr. Tracey Mccoy EGFR-NON AF SUDANESE >60 Normal >=60 [facility] Comment on above: Performed By: #### M G, CMP #### [facility] [address] [place] [address] Dr. Tracey Mccoy Globulin (S) [Mass/Vol] 3.6 g/dL Normal [facility] Comment on above: Performed By: #### M G, CMP #### [facility] [address] [address] [address] Tracey Mccoy Glucose [Mass/Vol] 88 mg/dL Normal 74-106 [facility] Comment on above: Performed By: #### M G, CMP #### [facility] [address] [address] [address] Tracey Mccoy Potassium [Moles/Vol] 4.1 mmol/L Normal 3.5-5.1 [facility] Comment on above: Performed By: #### M G, CMP #### [facility] [address] [address] [address] Tracey Mccoy Protein [Mass/Vol] 7.3 g/dL Normal 6.4-8.2 [facility] Comment on above: Performed By: #### M G, CMP #### [facility] [address] [address] [address] Tracey Mccoy Sodium [Moles/Vol] 137 mmol/L Normal 136-145 [facility] Comment on above: Performed By: #### M G, CMP #### [facility] [address] [address] [address] Tracey Mccoy Urea nitrogen [Mass/Vol] 5.0 mg/dL Critically low 7.0-18.0 [facility] Comment on above: Performed By: #### M G, CMP #### [facility] [address] [address] [address] Tracey Mccoy Urea nitrogen/Creatinin e [Mass ratio] 10.6 mg/mg [facility] Comment on above: Performed By: #### M G, CMP #### [facility] [address] [address] [address] Tracey Mccoy PAP ACOG PANEL 2: 30 to 65on 05-14-2022 . . Normal [facility] Comment on above: Result Comment: Perf ormed at: WB Performed By: #### [id number] #### [facility] [address] [address] [address] Tracey Mccoy Age Gdln ACOG Testing 30-65 [facility] Comment on above: Performed By: #### [id number] #### [facility] [address] [address] [address] Tracey Mccoy DIAGNOSIS: Comment Normal [facility] Comment on above: Result Comment: NEGA TIVE FOR INTRAEPITHELIAL LESION OR MALIGNANCY. Performed at: WB Performed By: #### [id number] #### [facility] [address] [address] [address] Tracey Mccoy HPV Aptima Negative Normal Negative [facility] Comment on above: Result Comment: This nucleic acid amplification test detects fourteen high-risk HPV types (16,18,31,33,35,39,45,51,52,56,58,59,66,68) without differentiation. Performed at: =G Performed By: #### [id number] #### [facility] [address] [place] [address] Dr. Tracey Mccoy HPV Genotype Reflex Comment Normal [facility] Comment on above: Result Comment: Crit eria not met, HPV Genotype not performed. Performed at: WB Performed By: #### [id number] #### [facility] [address] [place] [address] Dr. Tracey Mccoy Methodology: Comment Normal [facility] Comment on above: Result Comment: This liquid based ThinPrep(R) pap test was screened with the use of an image guided system. Performed at: WB Performed By: #### [id number] #### [facility] [address] [place] [address] Dr. Tracey Mccoy Note: Comment Normal [facility] Comment on above: Result Comment: The Pap smear is a screening test designed to aid in the detection of premalignant and malignant conditions of the uterine cervix. It is not a diagnostic procedure and should not be used as the sole means of detecting cervical cancer. Both false-positive and false-negative reports do occur. . Performed at: WB Performed By: #### [id number] #### [facility] [address] [place] [address] Dr. Tracey Mccoy Performed by: Comment Normal [facility] Comment on above: Result Comment: Daysi Cheema, Crab Fisher Performed at: WB Performed By: #### [id number] #### [facility] [address] [place] [address] Dr. Tracey Mccoy Specimen adequacy: Comment Normal [facility] Comment on above: Result Comment: Sati sfactory for evaluation. Endocervical and/or squamous metaplastic cells (endocervical component) are present. Performed at: WB Performed By: #### [id number] #### [facility] [address] [place] [address] Dr. Tracey Mccoy BNPon 02-23-2022 Natriuretic peptide B (Bld) [Mass/Vol] 37.0 pg/mL Normal <=450.0 [facility] Comment on above: Performed By: #### B EMU FARM WORKER #### [facility] [address] [place] [address] Dr. Tracey Mccoy CBC AUTO DIFFon 02-23-2022 BASO # 0.0 103/ul Normal 0.0-0.1 [facility] Comment on above: Performed By: #### C BC #### [facility] [address] [place] [address] Dr. Tracey Mccoy Basophils/100 WBC (Bld) 0.3 % Normal 0.2-2.0 [facility] Comment on above: Performed By: #### C BC #### [facility] [address] [place] [address] Dr. Tracey Mccoy EO # 0.0 103/ul Normal 0.0-0.7 [facility] Comment on above: Performed By: #### C BC #### [facility] [address] [place] [address] Dr. Tracey Mccoy Eosinophils/100 WBC (Bld) 0.3 % Critically low 0.9-7.0 [facility] Comment on above: Performed By: #### C BC #### [facility] [address] [place] [address] Dr. Tracey Mccoy Erythrocyte distribution width (RBC) [Ratio] 12.9 % Normal 11.0-15.0 [facility] Comment on above: Performed By: #### C BC #### [facility] [address] [place] [address] Dr. Tracey Mccoy Hematocrit (Bld) [Volume fraction] 37.5 % Normal 36.0-48.0 [facility] Comment on above: Performed By: #### C BC #### [facility] [address] [place] [address] Dr. Tracey Mccoy Hemoglobin (Bld) [Mass/Vol] 12.1 g/dL Normal 12.0-16.0 [facility] Comment on above: Performed By: #### C BC #### [facility] [address] [place] [address] Dr. Tracey Mccoy IG # 0.02 10e3/ul Normal 0.00-0.03 [facility] Comment on above: Performed By: #### C BC #### [facility] [address] [place] [address] Dr. Tracey Mccoy IG % 0.3 % Normal 0.0-0.5 [facility] Comment on above: Performed By: #### C BC #### [facility] [address] [place] [address] Dr. Tracey Mccoy LYMPH # 2.0 103/ul Normal 1.2-3.8 [facility] Comment on above: Performed By: #### C BC #### [facility] [address] [place] [address] Dr. Tracey Mccoy Lymphocytes/100 WBC (Bld) 28.4 % Normal 20.5-60.0 [facility] Comment on above: Performed By: #### C BC #### [facility] [address] [place] [address] Dr. Tracey Mccoy MANUAL DIFF REQ NO Normal [facility] Comment on above: Performed By: #### C BC #### [facility] [address] [place] [address] Dr. Tracey Mccoy MCH (RBC) [Entitic mass] 28.5 pg Normal 26.7-34.0 [facility] Comment on above: Performed By: #### C BC #### [facility] [address] [place] [address] Dr. Tracey Mccoy MCHC (RBC) [Mass/Vol] 32.3 g/dL Normal 29.9-35.2 [facility] Comment on above: Performed By: #### C BC #### [facility] [address] [address] [address] Tracey Mccoy MCV (RBC) [Entitic vol] 88.4 fL Normal 81.0-99.0 [facility] Comment on above: Performed By: #### C BC #### [facility] [address] [place] [address] Dr. Tracey Mccoy MONO # 0.5 103/ul Normal 0.3-0.8 [facility] Comment on above: Performed By: #### C BC #### [facility] [address] [place] [address] Dr. Tracey Mccoy Monocytes/100 WBC (Bld) 7.7 % Normal 1.7-12.0 [facility] Comment on above: Performed By: #### C BC #### [facility] [address] [place] [address] Dr. Tracey Mccoy NEUT # 4.4 103/ul Normal 1.4-6.5 [facility] Comment on above: Performed By: #### C BC #### [facility] [address] [place] [address] Dr. Tracey Mccoy Neutrophils/100 WBC (Bld) 63.0 % Normal 43.0-75.0 [facility] Comment on above: Performed By: #### C BC #### [facility] [address] [place] [address] Dr. Tracey Mccoy Platelet mean volume (Bld) [Entitic vol] 9.2 fL Critically low 9.5-13.5 [facility] Comment on above: Performed By: #### C BC #### [facility] [address] [place] [address] Dr. Tracey Mccoy PLT 278 103/ul Normal 150-450 [facility] Comment on above: Performed By: #### C BC #### [facility] [address] [place] [address] Dr. Tracye Mccoy RBC 4.24 106/ul Normal 4.20-5.40 [facility] Comment on above: Performed By: #### C BC #### [facility] [address] [place] [address] Dr. Tracey Mccoy WBC 6.9 103/ul Normal 4.0-11.0 [facility] Comment on above: Performed By: #### C BC #### [facility] [address] [place] [address] Dr. Tracey Mccoy PROF 14(COMP METB)on 022 Albumin [Mass/Vol] 3.7 g/dL Normal 3.4-5.0 [facility] Comment on above: Performed By: #### C JASIEL, HSTROPN #### [facility] [address] [place] [address] Dr. Tracey Mccoy Albumin/Globulin [Mass ratio] 0.9 {ratio} Normal [facility] Comment on above: Performed By: #### C JASIEL, HSTROPN #### [facility] [address] [place] [address] Dr. Tracey Mccoy ALP [Catalytic activity/Vol] 103 U/L Normal 46-116 [facility] Comment on above: Performed By: #### C JASIEL, HSTROPN #### [facility] [address] [place] [address] Dr. Tracey Mccoy ALT [Catalytic activity/Vol] 67 U/L Critically high 14-59 [facility] Comment on above: Performed By: #### C JASIEL, HSTROPN #### [facility] [address] [place] [address] Dr. Tracey Mccoy Anion gap [Moles/Vol] 9.6 mmol/L Normal [facility] Comment on above: Performed By: #### C MP, HSTROPN #### [facility] [address] [place] [address] Dr. Tracey Mccoy AST [Catalytic activity/Vol] 100 U/L Critically high 15-37 [facility] Comment on above: Performed By: #### C MP, HSTROPN #### [facility] [address] [address] [address] Tracey Mccoy Bilirubin [Mass/Vol] 0.4 mg/dL Normal 0.2-1.0 [facility] Comment on above: Performed By: #### C MP, HSTROPN #### [facility] [address] [place] [address] Dr. Tracey Mccoy Calcium [Mass/Vol] 8.8 mg/dL Normal 8.5-10.1 [facility] Comment on above: Performed By: #### C MP, HSTROPN #### [facility] [address] [address] [address] Tracey Mccoy Chloride [Moles/Vol] 104 mmol/L Normal 98-107 [facility] Comment on above: Performed By: #### C MP, HSTROPN #### [facility] [address] [place] [address] Dr. Tracey Mccoy CO2 [Moles/Vol] 28.5 mmol/L Normal 21.0-32.0 [facility] Comment on above: Performed By: #### C MP, HSTROPN #### [facility] [address] [place] [address] Dr. Tracey Mccoy Creatinine [Mass/Vol] 0.71 mg/dL Normal 0.55-1.02 [facility] Comment on above: Performed By: #### C MP, HSTROPN #### [facility] [address] [place] [address] Dr. Tracey Mccoy EGFR-AF SUDANESE >60 Normal >=60 [facility] Comment on above: Performed By: #### C MP, HSTROPN #### [facility] [address] [place] [address] Dr. Tracey Mccoy EGFR-NON AF SUDANESE >60 Normal >=60 [facility] Comment on above: Performed By: #### C MP, HSTROPN #### [facility] [address] [place] [address] Dr. Tracey Mccoy Globulin (S) [Mass/Vol] 3.9 g/dL Normal [facility] Comment on above: Performed By: #### C MP, HSTROPN #### [facility] [address] [address] [address] Tracey Mccoy Glucose [Mass/Vol] 113 mg/dL Critically high 74-106 [facility] Comment on above: Performed By: #### C MP, HSTROPN #### [facility] [address] [place] [address] Dr. Tracey Mccoy Potassium [Moles/Vol] 3.1 mmol/L Critically low 3.5-5.1 [facility] Comment on above: Performed By: #### C MP, HSTROPN #### [facility] [address] [address] [address] Tracey Mccoy Protein [Mass/Vol] 7.6 g/dL Normal 6.4-8.2 [facility] Comment on above: Performed By: #### C MP, HSTROPN #### [facility] [address] [place] [address] Dr. Tracey Mccoy Sodium [Moles/Vol] 139 mmol/L Normal 136-145 [facility] Comment on above: Performed By: #### C MP, HSTROPN #### [facility] [address] [place] [address] Dr. Tracey Mccoy Urea nitrogen [Mass/Vol] 9.0 mg/dL Normal 7.0-18.0 [facility] Comment on above: Performed By: #### C MP, HSTROPN #### [facility] [address] [place] [address] Dr. Tracey Mccoy Urea nitrogen/Creatinin e [Mass ratio] 12.7 mg/mg Normal [facility] Comment on above: Performed By: #### C MP, HSTROPN #### [facility] [address] [place] [address] Dr. Tracey Mccoy TROPONIN, HIGH SENSITIVITYon 02-23-2022 HSTROP 5.8 pg/mL Normal 4.0-51.3 [facility] Comment on above: Result Comment: CUT- OFF POINTS HAVE BEEN ESTABLISHED BASED ON THE FOURTH UNIVERSAL DEFINITIONS OF MYOCARDIAL INFARCTION. THE UPPER REFERENCE LIMIT (URL) OF TROPONIN, DEFINED THE 99TH PERCENTILE OF cTnI DISTRIBUTION IN A REFERENCE POPULATION, HAS BEEN CONFIRMED THE DECISION THRESHOLD FOR LA DIAGNOSIS. Performed By: #### C , HSTROPN #### [facility] [address] [address] [address] Tracey Mccoy XR CHEST 1 Von [...] by: CHAN RICHEY Date: 2022-02-23 03:04 Normal [facility] Vital Signs Date Time Vital Sign Value Performing Clinician Facility 02-26-2023 09:45-0500 Body height 157.48 cm Mary Jovioleta Thibodeaux Other [facility] Other 02-26-2023 09:45-0500 Body mass index (BMI) [Ratio] 57.13 kg/m2 Mary Jo Thibodeaux Other [facility] Other 02-26-2023 09:45-0500 Body temperature 97.2 [degF] Mary Jo Thibodeaux Other [facility] Other 02-26-2023 09:45-0500 Body weight 141.7 kg Mary Jo Thibodeaux Other [facility] Other 02-26-2023 09:45-0500 Diastolic blood pressure 86 mm[Hg] Mary Jo Thibodeaux Other [facility] Other 02-26-2023 09:45-0500 Respiratory rate 18 /min Mary Jo Thibodeaux Other [facility] Other 02-26-2023 09:45-0500 SaO2% (BldA) [Mass fraction] 98 % Mary Jo Thibodeaux Other [facility] Other 02-26-2023 09:45-0500 Systolic blood pressure 136 mm[Hg] Mary Jo Thibodeaux Other [facility] Other Encounters Encounter Date Encounter Type Care Provider Facility Start: 05-27-2023 End: 05-27-2023 ambulatory TIEN MORALES Not Available Start: 05-18-2023 End: 05-18-2023 ambulatory ELVIE AICMaryHOLZ Not Available Start: 04-22-2023 End: 04-22-2023 ambulatory DEEP HENRY Not Available Start: 04-22-2023 End: 04-22-2023 Office outpatient visit 10 minutes Deep Henry [employer] Work Phone: [facility] Comment on above: Primary osteoarthrit is of right knee (Primary Dx); Right knee pain, unspecified chronicity Start: 04-20-2023 ambulatory Rogelio Avendano acility:[facility] Start: 04-14-2023 Telephone encounter Elvie darnell [employer] Work Phone: [facility] Start: 04-13-2023 End: 04-13-2023 ambulatory ELVIE AICHHOLZ Not Available Start: 04-01-2023 End: 04-02-2023 ambulatory DEEP HENRY Not Available Start: 02-26-2023 End: 02-26-2023 ambulatory Mary Jo Morelia Other [facility] Other Start: 02-26-2023 Office outpatient vi sit 15 minutes Mary Jo Thibodeaux [facility] Start: 05-28-2022 End: 05-29-2022 ambulatory KEYA GREER Facility:[facility] Start: 05-06-2022 End: 05-06-2022 ambulatory CUSTOMER SERVICE COORDINATOR ELVIE GREER Facility:[facility] Start: 02-23-2022 End: 02-23-2022 ambulatory CUSTOMER SERVICE COORDINATOR ELVIE GREER Facility:[facility] Plan of Treatment Date Care Activity Detail Author Start: 05-27-2023 End: 05-27-2023 Patient encounter procedure 05/27/2023 10:00 AM EDT Office Visit [facility] [address] [place] [id number] Tien Morales DO [address] [place] [address] [facility] Start: 05-18-2023 End: 05-18-2023 Patient encounter procedure 05/18/2023 9:20 AM EDT Office Visit [facility] [address] [place] [address] Elvie Greer NP [address] [place] [address] [facility] Start: 04-22-2023 End: 04-22-2023 Patient encounter procedure 04/22/2023 10:15 AM EST Office Visit [facility] [address] [place] [phone] Deep Henry NP [address], [place] [id number] [facility] Start: 11-18-2013 Screening for malignant neoplasm of cervix [facility] Start: 11-18-2004 Screening for malignant neoplasm of cervix Pap Smear [facility] Payers Date Payer Category Payer Self-pay 2023 Unknown [employer] [id number] 2023-Present [address] [place] [address] [id number] 1985 Unknown [id number] 1985 Unknown [id number] 1983 Unknown [id number] 1983 Unknown [id number] 1983 Unknown [id number] 1983 Unknown [id number] 1983 Unknown [id number] 1983 Unknown [id number] 1983 Unknown [id number] 1959 Unknown [id number] Social History Date Type Detail Facility Start: 04-06-2023 End: 04-13-2023 Sex Assigned At [facility] Start: 04-01-2023 Tobacco smoking status ORIS Never smoked tobacco [facility] Work Phone: [...] to any clubs or organizations such as mu-ism groups, unions, fraternal or athletic groups, or [...] Oral montelukast (SINGULAIR) 10 mg, Oral, Nightly Speonk-3 Fatty Acids (Fish Oil) 1000 MG capsule [...] develop for requiring urgent evaluation. 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 jeannie from [employer] calling about pt's traMADol (Ultram) 50 MG tablet. They need it verified. You wrote a quanity of 15 days but the directions say 1 tablet PO for 10 days documented in this encounter [facility] Evaluation note 02-26-2023 Note Date & [...] PCP if no improvement in 2-3 days. [facility] Other Evaluation note Note Date & Type [...] surgical hx Hospitalization History 2 child births [facility] Other Summary Purpose Family History No Family History Records FoundNo Family History Records FoundNo Family History Records Found Advance Directives No Advanced Directives Records FoundNo Advanced Directives Records FoundNo Advanced Directives Records Found Additional Source Comments INFORMATION SOURCE (unrecogn ized section and content) DATE CREATED AUTHOR 06/01/2022 [facility] DATE CREATED AUTHOR AUTHOR'S ORGANIZ ATION 05/28/2023 [facility] EPIC DATE CREATED AUTHOR AUTHOR'S ORGANIZ ATION 06/03/2023 [facility] REASON FOR VISIT (unrecogniz ed section and content) Reason Comments Follow-up Care Teams (unrecognized sec tion and content) [employer] Supervisor Relationship Specialty Start Date End Date Chris Pelaez MD [address] [place] [address] PCP - General Family Medicine 04/01/23 Elvie Greer NP [address] [place] [address] Nurse Practitioner Family Medicine 04/01/23 [employer] Supervisor Relationship Specialty Start Date End Date Chris Pelaez MD [address] [place] [address] PCP - General Family Medicine 04/01/23 Elvie Greer NP [address] [place] [address] Nurse Practitioner Family Medicine 04/01/23 FOR [...] BE BASED ON THE PRIMARY CLINICAL RECORDS. [facility] [employer] [facility]. provides no warranty or guarantee of the accuracy or completeness of information in this document.
[2023-06-08 11:22] LABS: Free T3 2.77 pg/mL (2.18-3.98); Glucose 74 mg/dL (74-106); Thyroid Stimulating Hormone 6.182 uIU/mL (0.358-3.740)
[2023-06-08 11:37] LABS: Free T4 0.77 ng/dL (0.76-1.46)
[2023-06-08 12:19] LABS: Estimated Average Glucose 103 mg/dL; Glycohemoglobin A1C 5.2 % (4.5-6.2)
[2023-06-09 04:07] LABS: Estradiol 33.7 pg/mL (.); Progesterone <0.1 ng/mL (.)
[2023-06-09 11:09] LABS: C-Peptide, Serum 2.6 ng/mL (1.1-4.4); Insulin 9.7 uIU/mL (2.6-24.9)
[2023-06-09 15:09] LABS: Thyroglobulin Antibody <1.0 IU/mL (0.0-0.9); Thyroid Peroxidase (TPO) Ab 198 IU/mL (0-34)
[2023-06-10 11:10] LABS: Free Testosterone(Direct) 0.7 pg/mL (0.0-4.2); Testosterone 8 ng/dL (8-60)
[2023-06-10 13:08] LABS: Calcitriol(1,25 di-OH Vit D) 50.6 pg/mL (24.8-81.5)
[2023-06-12 13:08] LABS: Serotonin, Serum 52 ng/mL (31-207)
[2023-06-12 20:08] LABS: Cortisol, Free Dialysis, LCMS 0.489 ug/dL (.)
[2023-06-14 17:09] LABS: Estrone, Serum 22 pg/mL (27-231)
[2023-06-15 20:12] LABS: Thyroglobulin (TG-RIA) 36 ng/mL (.)
[2023-06-16 00:07] LABS: Reverse T3, Serum 9.9 ng/dL (9.2-24.1)
== END 2023-06-08 09:37 | disposition home or self-care (01) ==
LOC: LAB 09:37
PROVIDERS: PCP Nurse Practitioner; Visit Provider Obstetrics & Gynecology
DX: E34.9 Endocrine disorder, unspecified (principal)
CPT/HCPCS: 36415; 82530; 82627; 82652; 82670; 82679; 82728; 82947; 83036; 83525; 84144; 84260; 84270; 84402; 84403; 84432; 84436; 84439; 84443; 84481; 84482; 84681; 86376; 86800

== ENCOUNTER 2023-07-01 10:48 | Outpatient (OUT) | payer OTHER, SELFPAY ==
--- NOTE | 2023-07-01 11:10 | PM.CN ---
Consult Note: HPI Data of Consult Patient: known to practice within the last 3 years Requesting Physician: Rlyie Wells NP Primary Care Provider: Elvie Greer NP Consult Narrative Reason for consult: right knee pain Narrative: Tereza Navarro a pleasant 37 year old female presents for evaluation and management of chronic right knee pain. Has had an arthroscopy and right medial meniscectomy in the past. Patient had right knee injection with Dr Engle office with no relief. Patient was referred here for consideration of right genicular nerve block and RFA. At this time the patients current insurance will not cover genicular RFAs. Patient has failed to benefit from PT in the past and recently completed greater than 6 weeks without benefit, she found benefit to water therapy whhile she was in the pool. Patient is not a surgical candidate at this time, with her age and her current BMI >50. Patient is open to viscous injection therapy. Patient finds mild benefit to ibuprofen, tylenol, tramadol, and CBD/hemp balm. Patient denies numbness/tingling/weakness. Recent diagnosis of hashimotos, continue f/u with endocrinology. cc:: CC: Rylie Wells NP Review of Systems ROS Status of ROS 10 or more systems reviewed and unremarkable except as noted in history and below [facility] Medical History (Updated 05/06/23 @ 13:35 by Anitra Daigle RN) Osteoarthritis ?M19.90 - Unspecified osteoarthritis, unspecified site (ICD-10) Asthma ?J45.909 - Unspecified asthma, uncomplicated (ICD-10) Surgical History History of arthroscopic knee surgery ?Z98.890 - Other specified postprocedural states (ICD-10) Meds Home Medications and Allergies Home Medications ?Medication ?Instructions ?Recorded ?Confirmed ?Type bupropion HCl 150 mg 24 hr tablet, 150 mg PO DAILY 05/06/23 05/06/23 History extended release (Wellbutrin XL) magnesium 200 mg tablet 400 mg PO DAILY 05/06/23 05/06/23 History meloxicam 15 mg tablet 15 mg PO DAILY 05/06/23 05/06/23 History montelukast 10 mg tablet 10 mg PO DAILY 05/06/23 05/06/23 History (Singulair) omega 8-sca-tjt-fish oil 1,000 mg 1 cap PO DAILY 05/06/23 05/06/23 History (120 mg-180 mg) capsule (Fish Oil) omeprazole 20 mg capsule,delayed 20 mg PO DAILY 05/06/23 05/06/23 History release potassium 99 mg tablet 99 mg PO DAILY 05/06/23 05/06/23 History Allergies Allergy/AdvReac Type Severity Reaction Status Date / Time diphenhydramine Allergy Verified 05/06/23 13:14 [From Benadryl] latex Allergy Verified 05/06/23 13:14 Exam Constitutional Documenting provider has reviewed patient's vital signs: yes Common normals: no apparent distress, oriented x3, alert and well nourished General appearance: cooperative Nutritional appearance: obese HENMT Common normals: normocephalic, hearing grossly normal bilaterally and moist oral mucous membranes Head and scalp: normocephalic Eye Common normals: PERRL Pupil: PERRL Neck & C-Spine Common normals: full ROM General: normal visual inspection Chest Common normals: inspection of chest normal Respiratory Common normals: normal respiratory effort, no retractions and no use of accessory muscles Extremity Right lower extremity: knee joint Other: right knee enlarged diameter, edema noted, crepitus on exam. increased pain with medial and lateral stress testing. no instability noted. Neuro Common normals: oriented x3, CN's II-XII intact bilaterally, moves all extremities, no focal motor deficits, no sensory deficits noted and deep tendon reflexes 2+ bilaterally Sensorium/orientation: alert Gait (neuro): antalgic Motor exam: strength 5/5 throughout and no movement abnormalities noted Psych Common normals: mental status grossly normal, thought process normal, cooperative, affect normal, speech normal and activity/motor behavior normal Speech: normal speech Thought process: normal thought process Results Additional Findings Additional findings: If on a controlled substance or opioids, I have checked an [place]AR[place] report on this patient and there are no aberrancies noted in the prescribing history.??If on a controlled substance or opioid a drug screen was completed and reviewed within the last year, and if there has not been a drug screen completed we ordered one today to monitor higher risk, state monitored pain medication use. As part of providing excellent, safe, comprehensive care, the following was completed at our patient's visit: 1. A medication reconciliation and review to ensure accurate knowledge of current/active medications, including asking our patients to inform us about any zsuo-lne-czzxazv medications or herbal remedies/nutritional supplements/alternative remedies. 2. A review to specifically ensure our patients have had annual screening for screening for depression, screening for tobacco use, and screening for unhealthy alcohol use. For concerning screenings had a discussion with the patient, provided patient education, and recommended follow-up with primary care provider when appropriate. If patient noted with a risk of falling, they received education on strength, gait, and balance training to prevent future risk of falling. Assessment and Plan Assessment and Plan (1) Osteoarthritis of right knee: (2) Right knee pain: Plan gel based knee injection under fluoroscopy in OR with Dr Adelina ROE today, can continue tramadol 50mg once daily PRN 15 tabs/month for moderate to severe pain. risks vs benefits discussed. patient finds mild benefit to tylenol and ibuprofen, hx of GERD on omeprazole caution/limit NSAIDs continue HEP as tolerated continue current medications, heat/ice, and TENS f/u 2 months
== END 2023-07-01 10:49 | disposition home or self-care (01) ==
LOC: PM 10:48
PROVIDERS: PCP Nurse Practitioner; Visit Provider Nurse Practitioner
DX: E06.3 Autoimmune thyroiditis (principal); M25.561 Pain in right knee; M17.11 Unilateral primary osteoarthritis, right knee
CPT/HCPCS: 76536; G0463

== ENCOUNTER 2023-07-01 11:39 | Outpatient (OUT) | payer OTHER, SELFPAY ==
--- NOTE | 2023-07-01 11:41 | US_ITS ---
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 FINDINGS: RIGHT LOBE: Slightly enlarged lobe with markedly heterogeneous echotexture; no definable nodules or significantly increased vascularity. Lobe size: 5.7 x 2.2 x 1.7 cm LEFT LOBE: Markedly heterogeneous without definable nodules or significant increased vascularity. Lobe size: 3.8 x 1.3 x 1.7 cm. ISTHMUS: Heterogeneous and mildly thickened. Thickness: 5 mm US/US thyroid IMPRESSION: 1. Heterogeneous thyroid gland without definable nodules. 2. No significantly increased vascularity. Electronically authenticated by: LEDA HUNTER Date: 07/02/2023 06:22
== END 2023-07-01 11:40 | disposition home or self-care (01) ==
LOC: US 11:39
PROVIDERS: PCP Nurse Practitioner; Visit Provider Nurse Practitioner
DX: E06.3 Autoimmune thyroiditis (principal)
CPT/HCPCS: 76536

== ENCOUNTER 2023-07-19 13:39 | Outpatient (OUT) | payer OTHER, SELFPAY ==
--- NOTE | 2023-07-19 07:54 | PM.CN ---
Consult Note: HPI Data of Consult Patient: known to practice within the last 3 years Consult date: 07/19/23 Requesting Physician: Jamshid Sahu MD Primary Care Provider: Elvie Greer NP Consult Narrative Reason for consult: right knee pain Narrative: 37yof who presents for in office injection. Continues to have right knee pain. Would like to proceed with previously discussed right knee injection. cc:: CC: Jamshid Sahu MD Review of Systems ROS Status of ROS 10 or more systems reviewed and unremarkable except as noted in history and below [facility] Medical History (Updated 07/19/23 @ 07:55 by Jamshid Sahu MD) Osteoarthritis ?M19.90 - Unspecified osteoarthritis, unspecified site (ICD-10) Asthma ?J45.909 - Unspecified asthma, uncomplicated (ICD-10) Surgical History History of arthroscopic knee surgery ?Z98.890 - Other specified postprocedural states (ICD-10) Meds Home Medications and Allergies Home Medications ?Medication ?Instructions ?Recorded ?Confirmed ?Type bupropion HCl 150 mg 24 hr tablet, 150 mg PO DAILY 05/06/23 05/06/23 History extended release (Wellbutrin XL) magnesium 200 mg tablet 400 mg PO DAILY 05/06/23 05/06/23 History meloxicam 15 mg tablet 15 mg PO DAILY 05/06/23 05/06/23 History montelukast 10 mg tablet 10 mg PO DAILY 05/06/23 05/06/23 History (Singulair) omega 7-jmn-hrz-fish oil 1,000 mg 1 cap PO DAILY 05/06/23 05/06/23 History (120 mg-180 mg) capsule (Fish Oil) omeprazole 20 mg capsule,delayed 20 mg PO DAILY 05/06/23 05/06/23 History release potassium 99 mg tablet 99 mg PO DAILY 05/06/23 05/06/23 History Allergies Allergy/AdvReac Type Severity Reaction Status Date / Time diphenhydramine Allergy Verified 05/06/23 13:14 [From Benadryl] latex Allergy Verified 05/06/23 13:14 Exam Narrative Exam Narrative: Psych-alert and oriented x 3.? Attentive and appropriate, constitutionally normal, displays normal mood and affect per situation.? There are no obvious deficits in memory, reasoning, or intellect. Extremities-lower extremities are warm with minimal edema and palpable pulses. Knee-examination of the right knee reveals tenderness to palpation over the superior, inferior, lateral, and medial aspect of the knee.? Some swelling is noted without erythema. Pain is elicited with flexion and extension of the knee both actively and passively.? Some grinding is noted with these motions.? There is no notable ligamental laxity or instability.? Coordination remains intact.? Gait remains antalgic. Assessment and Plan Assessment and Plan (1) Right knee pain: Qualifiers: Chronicity: chronic Qualified Code(s): M25.561 - Pain in right knee; G89.29 - Other chronic pain (2) Osteoarthritis of right knee: Qualifiers: Osteoarthritis type: primary Qualified Code(s): M17.11 - Unilateral primary osteoarthritis, right knee Plan 37yof who presents for in office injection. Risks and benefits reviewed, we agree to proceed. Procedure: Right knee intraarticular injection Medications: Durcesar LOPEZ I explained the details of the procedure to the patient including the risks, benefits and alternatives. We had an informed discussion and the patient verbalized understanding and signed the consent form. All questions were answered appropriately.? A time out was performed.? After obtaining a comfortable seated position, the right knee was prepped with alcohol x3. A syringe containing the above medication was attached to a 25 guage, 1.5 inch needle under strict aseptic technique. The lateral tibial plateau was palpated.? The needle was then advanced through the subcutaneous tissue in a medial and superior direction towards the joint space.? The contents of the syringe were gently injected without any resistance. The needle was removed and pressure was applied to the injection site to decrease the incidence of ecchymosis and hematoma formation.? A sterile bandage was applied.
== END 2023-07-19 13:40 | disposition home or self-care (01) ==
LOC: PM 13:39
PROVIDERS: PCP Nurse Practitioner; Visit Provider Anesthesiology
DX: M25.561 Pain in right knee (principal); G89.29 Other chronic pain; M17.11 Unilateral primary osteoarthritis, right knee
CPT/HCPCS: 20610

== ENCOUNTER 2023-08-05 09:23 | Outpatient (OUT) | payer OTHER, SELFPAY ==
--- NOTE | 2023-08-05 09:29 | P.CN_ITS ---
Consult Note: HPI Data of Consult Patient: known to practice within the last 3 years Requesting Physician: Rylie Wells NP Primary Care Provider: Elvie Greer NP Consult Narrative Reason for consult: right knee pain Narrative: Tereza Navarro a pleasant 37 year old female presents for evaluation and management of chronic right knee pain. Has had an arthroscopy and right medial meniscectomy in the past. Patient had right knee injection with Dr Engle office with no relief. Patient was referred here for consideration of right gen icular nerve block and RFA. At this time the patients current insurance will not cover genicular RFAs. Patient has failed to benefit from PT in the past and recently completed greater than 6 weeks without benefit, she found benefit to water therapy while she was in the pool. Patient is not a surgical candidate at this time, with her age and her current BMI >50. Patient finds mild benefit to ibuprofen, tylenol, tramadol, and CBD/hemp balm. Patient denies numbness/tingling/weakness. Recent diagnosis of hashimotos, continue f/u with endocrinology. Recently underwent right synvisc-1 injection with no improvement. Patient continues to have moderate to severe pain. Pain today 8/10. Increases with activity, standing, and walking. cc:: CC: Rylie Wells NP Review of Systems ROS Status of ROS 10 or more systems reviewed and unremark able except as noted in history and below Musculoskeletal Reports: joint pain [facility] Medical History (Updated 08/05/23 @ 10:53 by Rylie Wells NP) Osteoarthritis ?M19.90 - Unspecified osteoarthritis, unspecified site (ICD-10) Asthma ?J45.909 - Unspecified asthma, uncomplicated (ICD-10) Surgical History History of arthroscopic knee surgery ?Z98.890 - Other specified postprocedural states (ICD-10) Meds Home Medications and Allergies Home Medications ?Medication ?Instructions ?Recorded ?Confirmed ?Type bupropion HCl 150 mg 24 hr tablet, 150 mg PO DAILY 05/06/23 05/06/23 History extended release (Wellbutrin XL) magnesium 200 mg tablet 400 mg PO DAILY 05/06/23 05/06/23 History montelukast 10 mg tablet 10 mg PO DAILY 05/06/23 05/06/23 History (Singulair) omega 9-jkk-bwq-fish oil 1,000 mg 1 cap PO DAILY 05/06/23 05/06/23 History (120 mg-180 mg) capsule (Fish Oil) omeprazole 20 mg capsule,delayed 20 mg PO DAILY 05/06/23 05/06/23 History release potassium 99 mg tablet 99 mg PO DAILY 05/06/23 05/06/23 History ibuprofen 800 mg tablet 800 mg PO Q12H PRN pain 08/05/23 08/05/23 History levothyroxine 25 mcg tablet 25 mcg PO DAILY 08/05/23 08/05/23 History tramadol 50 mg tablet 50 mg PO DAILY PRN pain 08/05/23 08/05/23 History Allergies Allergy/AdvReac Type Severity Reaction Status Date / Time diphenhydramine Allergy Verified 05/06/23 13:14 [From Benadryl] latex Allergy Verified 05/06/23 13:14 Exam Narrative Exam Narrative: Psych-alert and oriented x 3.? Attentive and appropriate, constitutionally normal, displays normal mood and affect per situation.? There are no obvious deficits in memory, reasoning, or intellect. Extremities-lower extremities are warm with minimal edema and palpable pulses. Knee-examination of the right knee reveals tenderness to palpation over the superior, inferior, lateral, and medial aspect of the knee.? Some swelling is noted without erythema. Pain is elicited with flexion and extension of the knee both actively and passively.? Some grinding is noted with these motions.? There is no notable ligamental laxity or instability.? Coordination remains intact.? Gait remains antalgic. Constitutional Documenting provider has reviewed patient's vital signs: yes Common normals: no apparent distress, oriented x3, healthy appearing, alert and well nourished General appearance: cooperative [facility] Common normals: normocephalic, hearing grossly normal bilaterally and moist oral mucous membranes Head and scalp: normocephalic Eye Common normals: PERRL Pupil: PERRL Neck & C-Spine Common normals: full ROM General: normal visual inspection Chest Common normals: inspection of chest normal Respiratory Common normals: normal respiratory effort, no retractions and no use of accessory muscles Neuro Common normals: oriented x3, CN's II-XII intact bilaterally, moves all extremities, no focal motor deficits, no sensory deficits noted and deep tendon reflexes 2+ bilaterally Sensorium/orientation: alert Motor exam: strength 5/5 throughout and no movement abnormalities noted Psych Common normals: mental status grossly normal, thought process normal, cooperative, affect normal, speech normal and activity/motor behavior normal Speech: normal speech Thought process: normal thought process Results Additional Findings Additional findings: If on a controlled substance or opioids, I have checked an [place] report on this patient and there are no aberrancies noted in the prescribing history.??If on a controlled substance or opioid a drug screen was completed and reviewed within the last year, and if there has not been a drug screen completed we ordered one today to monitor higher risk, state monitored pain medication use. As part of providing excellent, safe, comprehensive care, the following was completed at our patient's visit: 1. A medication reconciliation and review to ensure accurate knowledge of current/active medications, including asking our patients to inform us about any [id number]-[id number] medications or herbal remedies/nutritional supplements/[place] remedies. 2. A review to specifically ensure our patients have had annual screening for screening for depression, screening for tobacco use, and screening for unhealthy alcohol use. For concerning screenings had a discussion with the patient, provided patient education, and recommended follow-up with primary care provider when appropriate. If patient noted with a risk of falling, they received education on strength, gait, and balance training to prevent future risk of falling. Assessment and Plan Assessment and Plan (1) Osteoarthritis of right knee: Qualifiers: Osteoarthritis type: primary Qualified Code(s): M17.11 - Unilateral primary osteoarthritis, right knee (2) Right knee pain: Qualifiers: Chronicity: chronic Qualified Code(s): M25.561 - Pain in right knee; G89.29 - Other chronic pain (3) terminal gauger (current) use of non-steroidal anti-inflammatories (nsaid): Assessment and Plan: risks of watermelon inspector NSAID use reviewed with patient, denies GERD/heartburn indigestion or bleeding (4) Encounter for long-term use of opiate analgesic: Assessment and Plan: I feel these medications are improving the patient's quality of life and allow them to tolerate activities of daily living as well as participate in recreational activity.? The patient does not report intolerable side effects. The patient is NOT opioid naive and non-pharmacologic and non-opioid treatment has failed to significantly relieve the patient's pain and improve functionality. The patient has a diagnosis that is related to a somatic or visceral pain etiology. ? ?? I reviewed with the patient the potential risks and side effects with the use of? opioid medications including but not limited to respiratory depression,? sedation, and even . I verified the patient has access to naloxone should? these effects occur. I advised the patient to avoid the use of any other? sedation substances including alcohol, THC, and benzodiazepines while? taking opioid medications due to the risk of compounding side effects and? detrimental outcomes. I reviewed the BOTT[employer] LIQUOR ATTENDANT, pain treatment agreement, urine? drug screen, and opioid start talking forms. The patient was advised to let? their family know they had Naloxone in case they would need to administer? the medication.? ?? A drug screen was completed within the last year, and no aberrancies were noted regarding their use of controlled substances. The patient understands they are subject to the terms and conditions of the pain contract that they have signed. ? ?? I have checked an [place]AR[place] report on this patient today and there are no aberrancies noted in the prescribing history.? Plan Unfortunately patient has failed to benefit from steroid injections and LOPEZ injections, is not a surgical candidate at this time aquatherapy discussed and prescribed continue tramadol 50mg once daily PRN 15 tabs/month for moderate to severe pain. risks vs benefits discussed. patient finds mild benefit to tylenol and ibuprofen, hx of GERD on omeprazole caution/limit NSAIDs continue HEP as tolerated continue current medications, heat/ice, and TENS f/u 2-3 months, sooner if needed
--- OUTSIDE RECORDS SUMMARY | 2023-08-05 09:41 | XMS_ITS | CCD ---
Author Organization [facility] Informat [facility] Care Team Providers Care Sales Ledger Clerk Name Role Phone PERCY, NEUROPHYSIOLOGY TECH ELVIE Primary Care Unavailable ABEL, DR KRISTY Yarbrough Admitting Unavailable ABEL, DR KRISTY Yarbrough Consulting Unavailable ABEL, DR KRISTY Yarbrough Attending Unavailable CHAN RICHEY Consulting Unavailable AICHHOLZ, NEUROPHYSIOLOGY TECH ELVIE Primary Care Unavailable AICHHOLZ, NEUROPHYSIOLOGY TECH ELVIE Consulting Unavailable AICHHOLZ, NEUROPHYSIOLOGY TECH ELVIE Attending Unavailable AICHHOLZ, KEYA ELVIE Admitting Unavailable AICHHOLZ, NEUROPHYSIOLOGY TECH ELVIE Primary Care Unavailable KARASIK ., DR FOFANA Consulting Unavailabl e KARASIK ., DR FOFANA Attending Unavailabl e KARASIYuri ., DR FOFANA Admitting Unavailabl Mary Jo Sorensen Unavailable Percy DEFENSE ATTORNEY, Elvie Unavailable Chris Pelaez MD Primary Care Provider DEEP HENRY Attending Unavailable DEEP HENRY Referring Unavailable PERCY, ELVIE Attending Unavailable DEEP HENRY Attending Unavailable AICHJAYA, ELVIE Attending Unavailable TIEN MORALES Attending Unavailable AICHHOLZ, ELVIE Attending Unavailable Adelina SAGASTUME, Jamshid Jha Attending Unavailable Rogelio Oviedo Attending Unavailab Rogelio Tariq Admitting Unavailab le Elvie Greer Primary Care Unavailable Allergies Allergy Classification Reported Allergen(s) Allergy Type Date of Onset Reaction(s) Facility (1 source) diphenhydrAMINE Drug Allergy [facility]ository (1 source) Latex Drug allergy (disorder) [facility] (1 source) diphenhydrAMINE Drug Allergy Unknown [facility] Other (1 source) Latex Propensity to adverse reactions Unknown [facility] [place] Other (3 sources) diphenhydrAMINE Drug Allergy 08-09-19 Hives, Itching, Rash, Unknown [facility] (3 sources) Latex Propensity to adverse reactions 08-09-19 Hives, Itching, Rash, Unknown [facility] Healthcare (3 sources) Prednisone Propensity to adverse reactions 04-01-19 [facility] Healthcare (3 sources) Antihistamines, Diphenhydramine-Ty pe Propensity to adverse reactions 04-01-19 [facility] Healthcare (1 source) diphenhydrAMINE Drug Allergy 02-27-20 [facility] Repository (1 source) Latex Drug allergy (disorder) 02-27-20 [facility] Medications Current Medications Medication Drug Class(es) Dates Sig (Normalized) Sig (Original) 8 hr acetaminophen 650 mg extended release oral tablet (1 source) take 2 tablets by mouth every eight hours Acetaminophen ER 650 MG 2 tablets as needed Orally every 8 hrs Active [id number] 200 actuat albuterol 0.09 mg/actuat metered dose [...] 30 tablet 1 04/13/2023 05/13/2023 Active calcitriol 0.72061 mg oral capsule (3 sources) Vitamin D3 [...] bedtime 90 tablet 1 04/13/2023 07/12/2023 Active Alna-3 Fatty Acids (Fish Oil) 1000 MG capsule delayed-release (3 sources) Alna-3 Fatty Ac ids (Fish Oil) 1000 MG [...] 02-25-2022 Episodic Other aftercare (1 source) 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 Other COVID + FLU Quick Testing Negative [facility] Other CBC AUTO DIFFon 05-28-2022 BASO # 0.0 103/ul Normal 0.0-0.1 [facility] Comment on above: Performed By: #### C BC #### [facility] [address] [place] [address] Dr. Tracey Mccoy Basophils/100 WBC (Bld) 0.3 % Normal 0.2-2.0 [facility] Comment on above: Performed By: #### C BC #### [facility] [address] [place] [address] Dr. Tracey Mccoy EO # 0.2 103/ul Normal 0.0-0.7 [facility] Comment on above: Performed By: #### C BC #### [facility] [address] [place] [address] Dr. Tracey Mccoy Eosinophils/100 WBC (Bld) 1.7 % Normal 0.9-7.0 [facility] Comment on above: Performed By: #### C BC #### [facility] [address] [place] [address] Dr. Tracey Mccoy Erythrocyte distribution width (RBC) [Ratio] 12.4 % Normal 11.0-15.0 [facility] Comment on above: Performed By: #### C BC #### [facility] [address] [place] [address] Dr. Tracey Mccoy Hematocrit (Bld) [Volume fraction] 36.2 % Normal 36.0-48.0 [facility] Comment on above: Performed By: #### C BC #### [facility] [address] [place] [address] Dr. Tracey Mccoy Hemoglobin (Bld) [Mass/Vol] 12.2 g/dL Normal 12.0-16.0 [facility] Comment on above: Performed By: #### C BC #### [facility] [address] [place] [address] Dr. Tracey Mccoy IG # 0.05 10e3/ul Critically high 0.00-0.03 [facility] Comment on above: Performed By: #### C BC #### [facility] [address] [place] [address] Dr. Tracey Mccoy IG % 0.5 % Normal 0.0-0.5 [facility] Comment on above: Performed By: #### C BC #### [facility] [address] [place] [address] Dr. Tracey Mccoy LYMPH # 2.3 103/ul Normal 1.2-3.8 [facility] Comment on above: Performed By: #### C BC #### [facility] [address] [place] [address] Dr. Tracey Mccoy Lymphocytes/100 WBC (Bld) 25.6 % Normal 20.5-60.0 [facility] Comment on above: Performed By: #### C BC #### [facility] [address] [place] [address] Dr. Tracey Mccoy MANUAL DIFF REQ NO Normal [facility] Comment on above: Performed By: #### C BC #### [facility] [address] [place] [address] Dr. Tracey Mccoy MCH (RBC) [Entitic mass] 29.0 pg Normal 26.7-34.0 [facility] Comment on above: Performed By: #### C BC #### [facility] [address] [place] [address] Dr. Tracey Mccoy MCHC (RBC) [Mass/Vol] 33.7 g/dL Normal 29.9-35.2 [facility] Comment on above: Performed By: #### C BC #### [facility] [address] [place] [address] Dr. Tracey Mccoy MCV (RBC) [Entitic vol] 86.0 fL Normal 81.0-99.0 [facility] Comment on above: Performed By: #### C BC #### [facility] [address] [address] [address] Tracey Mccoy MONO # 0.7 103/ul Normal 0.3-0.8 [facility] Comment on above: Performed By: #### C BC #### [facility] [address] [place] [address] Dr. Tracey Mccoy Monocytes/100 WBC (Bld) 7.7 % Normal 1.7-12.0 [facility] Comment on above: Performed By: #### C BC #### [facility] [address] [place] [address] Dr. Tracey Mccoy NEUT # 5.9 103/ul Normal 1.4-6.5 [facility] Comment on above: Performed By: #### C BC #### [facility] [address] [place] [address] Dr. Tracey Mccoy Neutrophils/100 WBC (Bld) 64.2 % Normal 43.0-75.0 [facility] Comment on above: Performed By: #### C BC #### [facility] [address] [place] [address] Dr. Tracey Mccoy Platelet mean volume (Bld) [Entitic vol] 9.5 fL Normal 9.5-13.5 [facility] Comment on above: Performed By: #### C BC #### [facility] [address] [place] [address] Dr. Tracey Mccoy PLT 348 103/ul Normal 150-450 [facility] Comment on above: Performed By: #### C BC #### [facility] [address] [place] [address] Dr. Tracey Mccoy RBC 4.21 106/ul Normal 4.20-5.40 [facility] Comment on above: Performed By: #### C BC #### [facility] [address] [place] [address] Dr. Tracey Mccoy WBC 9.2 103/ul Normal 4.0-11.0 [facility] Comment on above: Performed By: #### C BC #### [facility] [address] [place] [address] Dr. Tracey Mccoy FERRITINon 05-28-2022 Ferritin [Mass/Vol] 15.0 ng/mL Normal 6.2-137.0 [facility] Comment on above: Performed By: #### F ERR #### [facility] [address] [place] [address] Dr. Tracey Mccoy MAGNESIUMon 05-28-2022 Magnesium [Mass/Vol] 1.7 mg/dL Critically low 1.8-2.4 [facility] Comment on above: Performed By: #### M G, CMP #### [facility] [address] [place] [address] Dr. Tracey Mccoy PROF 14(COMP METB)on 023 Albumin [Mass/Vol] 3.7 g/dL Normal 3.4-5.0 [facility] Comment on above: Performed By: #### M G, CMP #### [facility] [address] [place] [address] Dr. Tracey Mccoy Albumin/Globulin [Mass ratio] 1.0 {ratio} Normal [facility] Comment on above: Performed By: #### M G, CMP #### [facility] [address] [place] [address] Dr. Tracey Mccoy ALP [Catalytic activity/Vol] 89 U/L Normal 46-116 [facility] Comment on above: Performed By: #### M G, CMP #### [facility] [address] [place] [address] Dr. Tracey Mccoy ALT [Catalytic activity/Vol] 26 U/L Normal 14-59 [facility] Comment on above: Performed By: #### M G, CMP #### [facility] [address] [place] [address] Dr. Tracey Mccoy Anion gap [Moles/Vol] 13.2 mmol/L Normal [facility] Comment on above: Performed By: #### M G, CMP #### [facility] [address] [place] [address] Dr. Tracey Mccoy AST [Catalytic activity/Vol] 19 U/L Normal 15-37 [facility] Comment on above: Performed By: #### M G, CMP #### [facility] [address] [place] [address] Dr. Tracey Mccoy Bilirubin [Mass/Vol] 0.6 mg/dL Normal 0.2-1.0 [facility] Comment on above: Performed By: #### M G, CMP #### [facility] [address] [place] [address] Dr. Tracey Mccoy Calcium [Mass/Vol] 9.2 mg/dL Normal 8.5-10.1 [facility] Comment on above: Performed By: #### M G, CMP #### [facility] [address] [place] [address] Dr. Tracey Mccoy Chloride [Moles/Vol] 101 mmol/L Normal 98-107 [facility] Comment on above: Performed By: #### M G, CMP #### [facility] [address] [place] [address] Dr. Tracey Mccoy CO2 [Moles/Vol] 26.9 mmol/L Normal 21.0-32.0 [facility] Comment on above: Performed By: #### M G, CMP #### [facility] [address] [place] [address] Dr. Tracey Mccoy Creatinine [Mass/Vol] 0.47 mg/dL Critically low 0.55-1.02 [facility] Comment on above: Performed By: #### M G, CMP #### [facility] [address] [place] [address] Dr. Tracey Mccoy EGFR-AF RWANDAN >60 Normal >=60 [facility] Comment on above: Performed By: #### M G, CMP #### [facility] [address] [place] [address] Dr. Tracey Mccoy EGFR-NON AF RWANDAN >60 Normal >=60 [facility] Comment on above: Performed By: #### M G, CMP #### [facility] [address] [place] [address] Dr. Tracey Mccoy Globulin (S) [Mass/Vol] 3.6 g/dL Normal [facility] Comment on above: Performed By: #### M G, CMP #### [facility] [address] [address] [address] Tracey Mccoy Glucose [Mass/Vol] 88 mg/dL Normal 74-106 [facility] Comment on above: Performed By: #### M G, CMP #### [facility] [address] [address] [address] Tracey Mccoy Potassium [Moles/Vol] 4.1 mmol/L Normal 3.5-5.1 [facility] Comment on above: Performed By: #### M G, CMP #### [facility] [address] [address] [address] Tracey Mccoy Protein [Mass/Vol] 7.3 g/dL Normal 6.4-8.2 [facility] Comment on above: Performed By: #### M G, CMP #### [facility] [address] [place] [address] Dr. Tracey Mccoy Sodium [Moles/Vol] 137 mmol/L Normal 136-145 [facility] Comment on above: Performed By: #### M G, CMP #### [facility] [address] [address] [address] Tracey Mccoy Urea nitrogen [Mass/Vol] 5.0 mg/dL Critically low 7.0-18.0 [facility] Comment on above: Performed By: #### M G, CMP #### [facility] [address] [address] [address] Tracey Mccoy Urea nitrogen/Creatinin e [Mass ratio] 10.6 mg/mg [facility] Comment on above: Performed By: #### M G, CMP #### [facility] [address] [place] [address] Dr. Tracey Mccoy PAP ACOG PANEL 2: 30 to 65on 05-14-2022 . . Normal [facility] Comment on above: Result Comment: Perf ormed at: WB Performed By: #### [id number] #### [facility] [address] [place] [address] Dr. Tracey Mccoy Age Gdln ACOG Testing 30-65 Normal [facility] Comment on above: Performed By: #### [id number] #### [facility] [address] [place] [address] Dr. Tracey Mccoy DIAGNOSIS: Comment Normal [facility] Comment on above: Result Comment: NEGA TIVE FOR INTRAEPITHELIAL LESION OR MALIGNANCY. Performed at: WB Performed By: #### [id number] #### [facility] [address] [place] [address] Dr. Tracey Mccoy HPV Aptima Negative Normal Negative [facility] Comment on above: Result Comment: This nucleic acid amplification test detects fourteen high-risk HPV types (16,18,31,33,35,39,45,51,52,56,58,59,66,68) without differentiation. Performed at: =G Performed By: #### [id number] #### [facility] [address] [place] [address] Dr. Tracey Mccoy HPV Genotype Reflex Comment Normal [facility] Comment on above: Result Comment: Crit eria not met, HPV Genotype not performed. Performed at: WB Performed By: #### [id number] #### [facility] [address] [place] [address] Dr. Tracey Mccoy Methodology: Comment Normal [facility] Comment on above: Result Comment: This liquid based ThinPrep(R) pap test was screened with the use of an image guided system. Performed at: WB Performed By: #### [id number] #### [facility] [address] [place] [address] Dr. Tracey Mccoy Note: Comment Normal [facility] Comment on above: Result Comment: The Pap smear is a screening test designed to aid in the detection of premalignant and malignant conditions of the uterine cervix. It is not a diagnostic procedure and should not be used as the sole means of detecting cervical cancer. Both false-positive and false-negative reports do occur. . Performed at: WB Performed By: #### [id number] #### [facility] [address] [place] [address] Dr. Tracey Mccoy Performed by: Comment Normal [facility] Comment on above: Result Comment: Daysi Cheema, Top Former Performed at: WB Performed By: #### [id number] #### [facility] [address] [place] [address] Dr. Tracey Mccoy Specimen adequacy: Comment Normal [facility] Comment on above: Result Comment: Sati sfactory for evaluation. Endocervical and/or squamous metaplastic cells (endocervical component) are present. Performed at: WB Performed By: #### [id number] #### [facility] [address] [place] [address] Dr. Tracey Mccoy BNPon 02-23-2022 Natriuretic peptide B (Bld) [Mass/Vol] 37.0 pg/mL Normal <=450.0 [facility] Comment on above: Performed By: #### B DEFENSE ATTORNEY #### [facility] [address] [place] [address] Dr. Tracey Mccoy CBC AUTO DIFFon 02-23-2022 BASO # 0.0 103/ul Normal 0.0-0.1 [facility] Comment on above: Performed By: #### C BC #### [facility] [address] [place] [address] Dr. Tracey Mccoy Basophils/100 WBC (Bld) 0.3 % Normal 0.2-2.0 [facility] Comment on above: Performed By: #### C BC #### [facility] [address] [place] [address] Dr. Tracey Mccoy EO # 0.0 103/ul Normal 0.0-0.7 [facility] Comment on above: Performed By: #### C BC #### [facility] [address] [place] [address] Dr. Tracey Mccoy Eosinophils/100 WBC (Bld) 0.3 % Critically low 0.9-7.0 [facility] Comment on above: Performed By: #### C BC #### [facility] [address] [place] [address] Dr. Tracey Mccoy Erythrocyte distribution width (RBC) [Ratio] 12.9 % Normal 11.0-15.0 [facility] Comment on above: Performed By: #### C BC #### [facility] [address] [place] [address] Dr. Tracey Mccoy Hematocrit (Bld) [Volume fraction] 37.5 % Normal 36.0-48.0 [facility] Comment on above: Performed By: #### C BC #### [facility] [address] [place] [address] Dr. Tracey Mccoy Hemoglobin (Bld) [Mass/Vol] 12.1 g/dL Normal 12.0-16.0 [facility] Comment on above: Performed By: #### C BC #### [facility] [address] [place] [address] Dr. Tracey Mccoy IG # 0.02 10e3/ul Normal 0.00-0.03 [facility] Comment on above: Performed By: #### C BC #### [facility] [address] [place] [address] Dr. Tracey Mccoy IG % 0.3 % Normal 0.0-0.5 [facility] Comment on above: Performed By: #### C BC #### [facility] [address] [place] [address] Dr. Tracey Mccoy LYMPH # 2.0 103/ul Normal 1.2-3.8 [facility] Comment on above: Performed By: #### C BC #### [facility] [address] [place] [address] Dr. Tracey Mccoy Lymphocytes/100 WBC (Bld) 28.4 % Normal 20.5-60.0 [facility] Comment on above: Performed By: #### C BC #### [facility] [address] [place] [address] Dr. Tracey Mccoy MANUAL DIFF REQ NO Normal [facility] Comment on above: Performed By: #### C BC #### [facility] [address] [place] [address] Dr. Tracey Mccoy MCH (RBC) [Entitic mass] 28.5 pg Normal 26.7-34.0 [facility] Comment on above: Performed By: #### C BC #### [facility] [address] [address] [address] Tracey Mccoy MCHC (RBC) [Mass/Vol] 32.3 g/dL Normal 29.9-35.2 [facility] Comment on above: Performed By: #### C BC #### [facility] [address] [place] [address] Dr. Tracey Mccoy MCV (RBC) [Entitic vol] 88.4 fL Normal 81.0-99.0 [facility] Comment on above: Performed By: #### C BC #### [facility] [address] [place] [address] Dr. Tracey Mccoy MONO # 0.5 103/ul Normal 0.3-0.8 [facility] Comment on above: Performed By: #### C BC #### [facility] [address] [place] [address] Dr. Tracey Mccoy Monocytes/100 WBC (Bld) 7.7 % Normal 1.7-12.0 [facility] Comment on above: Performed By: #### C BC #### [facility] [address] [place] [address] Dr. Tracey Mccoy NEUT # 4.4 103/ul Normal 1.4-6.5 [facility] Comment on above: Performed By: #### C BC #### [facility] [address] [place] [address] Dr. Tracey Mccoy Neutrophils/100 WBC (Bld) 63.0 % Normal 43.0-75.0 [facility] Comment on above: Performed By: #### C BC #### [facility] [address] [place] [address] Dr. Tracey Mccoy Platelet mean volume (Bld) [Entitic vol] 9.2 fL Critically low 9.5-13.5 [facility] Comment on above: Performed By: #### C BC #### [facility] [address] [place] [address] Dr. Tracey Mccoy PLT 278 103/ul Normal 150-450 [facility] Comment on above: Performed By: #### C BC #### [facility] [address] [place] [address] Dr. Tracey Mccoy RBC 4.24 106/ul Normal 4.20-5.40 [facility] Comment on above: Performed By: #### C BC #### [facility] [address] [place] [address] Dr. Tracey Mccoy WBC 6.9 103/ul Normal 4.0-11.0 [facility] Comment on above: Performed By: #### C BC #### [facility] [address] [place] [address] Dr. Tracey Mccoy PROF 14(COMP METB)on 022 Albumin [Mass/Vol] 3.7 g/dL Normal 3.4-5.0 [facility] Comment on above: Performed By: #### C JASIEL, HSTROPN #### [facility] [address] [place] [address] Dr. Tracey Mccoy Albumin/Globulin [Mass ratio] 0.9 {ratio} Normal [facility] Comment on above: Performed By: #### C JASIEL, HSTROPN #### [facility] [address] [place] [address] Dr. Tracey Mccoy ALP [Catalytic activity/Vol] 103 U/L Normal 46-116 [facility] Comment on above: Performed By: #### C JASIEL, HSTROPN #### [facility] [address] [place] [address] Dr. Tracey Mccoy ALT [Catalytic activity/Vol] 67 U/L Critically high 14-59 [facility] Comment on above: Performed By: #### C JASIEL, HSTROPN #### [facility] [address] [place] [address] Dr. Tracey Mccoy Anion gap [Moles/Vol] 9.6 mmol/L Normal [facility] Comment on above: Performed By: #### C MP, HSTROPN #### [facility] [address] [place] [address] Dr. Tracey Mccoy AST [Catalytic activity/Vol] 100 U/L Critically high 15-37 [facility] Comment on above: Performed By: #### C MP, HSTROPN #### [facility] [address] [address] [address] Tracey Mccoy Bilirubin [Mass/Vol] 0.4 mg/dL Normal 0.2-1.0 [facility] Comment on above: Performed By: #### C MP, HSTROPN #### [facility] [address] [address] [address] Tracey Mccoy Calcium [Mass/Vol] 8.8 mg/dL Normal 8.5-10.1 [facility] Comment on above: Performed By: #### C MP, HSTROPN #### [facility] [address] [address] [address] Tracey Mccoy Chloride [Moles/Vol] 104 mmol/L Normal 98-107 [facility] Comment on above: Performed By: #### C MP, HSTROPN #### [facility] [address] [place] [address] Dr. Tracey Mccoy CO2 [Moles/Vol] 28.5 mmol/L Normal 21.0-32.0 [facility] Comment on above: Performed By: #### C MP, HSTROPN #### [facility] [address] [place] [address] Dr. Tracey Mccoy Creatinine [Mass/Vol] 0.71 mg/dL Normal 0.55-1.02 [facility] Comment on above: Performed By: #### C MP, HSTROPN #### [facility] [address] [place] [address] Dr. Tracey Mccoy EGFR-AF RWANDAN >60 Normal >=60 [facility] Comment on above: Performed By: #### C MP, HSTROPN #### [facility] [address] [place] [address] Dr. Tracey Mccoy EGFR-NON AF RWANDAN >60 Normal >=60 [facility] Comment on above: Performed By: #### C MP, HSTROPN #### [facility] [address] [place] [address] Dr. Tracey Mccoy Globulin (S) [Mass/Vol] 3.9 g/dL Normal [facility] Comment on above: Performed By: #### C MP, HSTROPN #### [facility] [address] [address] [address] Tracey Mccoy Glucose [Mass/Vol] 113 mg/dL Critically high 74-106 [facility] Comment on above: Performed By: #### C MP, HSTROPN #### [facility] [address] [address] [address] Tracey Mccoy Potassium [Moles/Vol] 3.1 mmol/L Critically low 3.5-5.1 [facility] Comment on above: Performed By: #### C MP, HSTROPN #### [facility] [address] [address] [address] Tracey Mccoy Protein [Mass/Vol] 7.6 g/dL Normal 6.4-8.2 [facility] Comment on above: Performed By: #### C MP, HSTROPN #### [facility] [address] [address] [address] Tracey Mccoy Sodium [Moles/Vol] 139 mmol/L Normal 136-145 [facility] Comment on above: Performed By: #### C MP, HSTROPN #### [facility] [address] [address] [address] Tracey Mccoy Urea nitrogen [Mass/Vol] 9.0 mg/dL Normal 7.0-18.0 [facility] Comment on above: Performed By: #### C MP, HSTROPN #### [facility] [address] [address] [address] Tracey Mccoy Urea nitrogen/Creatinin e [Mass ratio] 12.7 mg/mg Normal [facility] Comment on above: Performed By: #### C MP, HSTROPN #### [facility] [address] [place] [address] Dr. Tracey Mccoy TROPONIN, HIGH SENSITIVITYon 02-23-2022 HSTROP 5.8 pg/mL Normal 4.0-51.3 [facility] Comment on above: Result Comment: CUT- OFF POINTS HAVE BEEN ESTABLISHED BASED ON THE FOURTH UNIVERSAL DEFINITIONS OF MYOCARDIAL INFARCTION. THE UPPER REFERENCE LIMIT (URL) OF TROPONIN, DEFINED THE 99TH PERCENTILE OF cTnI DISTRIBUTION IN A REFERENCE POPULATION, HAS BEEN CONFIRMED THE DECISION THRESHOLD FOR [place] DIAGNOSIS. Performed By: #### C MP, HSTROPN #### [facility] [address] [address] [address] Tracey Mccoy XR CHEST 1 Von [...] CHAN RICHEY Date: 2022-02-23 03:04 Normal [facility] Vital Signs Date Time Vital Sign Value Performing Clinician Facility 02-26-2023 09:45-0500 Body height 157.48 cm Mary Jovioleta Thibodeaux Other [employer] Other 02-26-2023 09:45-0500 Body mass index (BMI) [Ratio] 57.13 kg/m2 Mary Jo Thibodeaux Other [facility] Other 02-26-2023 09:45-0500 Body temperature 97.2 [degF] Mary Jo Thibodeaux Other [facility] [employer] Other 02-26-2023 09:45-0500 Body weight 141.7 kg Mary Jo Thibodeaux Other [facility] Other 02-26-2023 09:45-0500 Diastolic blood pressure 86 mm[Hg] Mary Jo Thibodeaux Other [facility] Other 02-26-2023 09:45-0500 Respiratory rate 18 /min Mary Jo Thibodeaux Other [facility] Other 02-26-2023 09:45-0500 SaO2% (BldA) [Mass fraction] 98 % Mary Jo Thibodeaux Other [facility] Other 02-26-2023 09:45-0500 Systolic blood pressure 136 mm[Hg] Mary Jo Thibodeaux Other [facility] Other Encounters Encounter Date Encounter Type Care Provider Facility Start: 07-19-2023 End: 07-20-2023 ambulatory Jamshid Sahu MD Facility:[facility] Start: 06-29-2023 End: 06-29-2023 ambulatory ELVIE AICHHOLZ Not Available Start: 05-27-2023 End: 05-27-2023 ambulatory TIEN MORALES Not Available Start: 05-18-2023 End: 05-18-2023 ambulatory ELVIE AICHHOLZ Not Available Start: 05-04-2023 ambulatory Rogelio Avendano acility:[facility] Start: 04-22-2023 End: 04-22-2023 ambulatory DEEP HENRY Not Available Start: 04-22-2023 End: 04-22-2023 Office outpatient visit 10 minutes Deep Henry DEFENSE ATTORNEY Work Phone: [facility] Comment on above: Primary osteoarthrit is of right knee (Primary Dx); Right knee pain, unspecified chronicity Start: 04-14-2023 Telephone encounter Elvie Gabrielh mann DEFENSE ATTORNEY Work Phone: [facility] Start: 04-13-2023 End: 04-13-2023 ambulatory ELVIE AICHHOLZ Not Available Start: 04-01-2023 End: 04-02-2023 ambulatory DEEP HENRY Not Available Start: 02-26-2023 End: 02-26-2023 ambulatory Mary Jo Thibodeaxu Other [employer] Other Start: 02-26-2023 Office outpatient vi sit 15 minutes Mary Jo Thibodeaux [facility] Start: 05-28-2022 End: 05-29-2022 ambulatory NEUROPHYSIOLOGY TECH ELVIE GREER Facility:[facility] Start: 05-06-2022 End: 05-06-2022 ambulatory NEUROPHYSIOLOGY TECH LEVIE GREER Facility:[facility] Start: 02-23-2022 End: 02-23-2022 ambulatory NEUROPHYSIOLOGY TECH ELVIE GREER Facility:[facility] Plan of Treatment Date Care Activity Detail Author Start: 05-27-2023 End: 05-27-2023 Patient encounter procedure 05/27/2023 10:00 AM EDT Office Visit [facility] [address] [place] [id number] Tien Morales DO [address] [place] [address] [facility] Start: 05-18-2023 End: 05-18-2023 Patient encounter procedure 05/18/2023 9:20 AM EDT Office Visit [facility] [address] [place] [address] Elvie Greer NP [address] [place] [address] [facility] Start: 04-22-2023 End: 04-22-2023 Patient encounter procedure 04/22/2023 10:15 AM EST Office Visit [facility] [address] [place] [phone] Deep Henry NP [address] [place], [place] [id number] [facility] Start: 11-18-2013 Screening for malignant neoplasm of cervix [facility] Start: 11-18-2004 Screening for malignant neoplasm of cervix Pap Smear [facility] Payers Date Payer Category Payer Self-pay 2023 Unknown [id number] 1983 Unknown [id number] 2.16.84 [id number] 1983 Unknown [id number] 2.16.84 [id number] 1983 Unknown [id number] 2.16.84 [id number] 1983 Unknown [id number] 2.16.84 [id number] 1983 Unknown [id number] 2.16.84 [id number] 1983 Unknown [id number] 2.16.84 [id number] 1983 Unknown [id number] 2.16.84 [id number] 1983 Unknown [id number] 2.16.84 [id number] 1983 Unknown [id number] 2.16.84 [id number] 1983 Unknown [id number] 2.16.84 [id number] 1983 Unknown [id number] 2.16. [id number] 1959 Unknown [id number] Social History Date Type Detail Facility Start: 04-06-2023 End: 04-13-2023 Sex Assigned At [facility] Start: 04-01-2023 Tobacco smoking status NEIS Never smoked tobacco [facility] Work Phone: Start: 04-01-2023 Tobacco use and exposure Smokeless tobacco non-user [facility] Start: 04-13-2023 End: 04-22-2023 Alcohol intake Lifetime non-drinker (finding) [facility] Start: 04-06-2023 End: 04-13-2023 History of Social function [facility] Within the last year , have you been afraid of your partner or ex-partner? No [facility] Do you belong to any clubs or organizations such as jehovah's witness groups, unions, fraternal or athletic groups, or [...] [OSQ] Very much [facility] (I/We) worried whe er (my/our) food would run out before [...] Oral montelukast (SINGULAIR) 10 mg, Oral, Nightly Alna-3 Fatty Acids (Fish Oil) 1000 MG capsule [...] develop for requiring urgent evaluation. 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 They need it verified. You wrote a quanity of 15 days but the directions say 1 tablet PO for 10 days [facility] Note 04-14-2023 Telephone Encounter - SILVER JIAMES - 04/14/2023 11:38 AM EST Note Date & Type Note Facility 04-14-2023 Miscellaneous Notes Formattin g of this note might be different from the original. jeannie from [employer] calling about pt's traMADol (Ultram) 50 MG tablet. They need it verified. You wrote a quanity of 15 days but the directions say 1 tablet PO for 10 days documented in this encounter [facility] Evaluation note 02-26-2023 Note Date [...] PCP if no improvement in 2-3 days. [employer] Other Evaluation note Note Date & Type [...] surgical hx Hospitalization History 2 child births [employer] Other Summary Purpose Family History No Family History Records FoundNo Family History Records FoundNo Family History Records FoundNo Family History Records Found Advance Directives No Advanced Directives Records FoundNo Advanced Directives Records FoundNo Advanced Directives Records FoundNo Advanced Directives Records Found Additional Source Comments INFORMATION SOURCE (unrecogn ized section and content) DATE CREATED AUTHOR 06/01/2022 [facility] DATE CREATED AUTHOR AUTHOR'S ORGANIZ ATION 06/30/2023 [facility] EPIC DATE CREATED AUTHOR AUTHOR'S ORGANIZ ATION 07/22/2023 [facility] DATE CREATED AUTHOR AUTHOR'S ORGANIZ ATION 07/28/2023 [facility] REASON FOR VISIT (unrecogniz ed section and content) Reason Comments Follow-up Care Teams (unrecognized sec tion and content) Sales Ledger Clerk Relationship Specialty Start Date End Date Chris Pelaez MD [address] [place] [address] PCP - General Family Medicine 04/01/23 Elvie Greer NP [address] [place] [address] Nurse Practitioner Family Medicine 04/01/23 Sales Ledger Clerk Relationship Specialty Start Date End Date Chris Pelaez MD [address] [place] [address] PCP - General Family Medicine 04/01/23 Elvie Greer NP [address] [place] [address] Nurse Practitioner Family Medicine 04/01/23 [...] BE BASED ON THE PRIMARY CLINICAL RECORDS. [facility]. provides no warranty or guarantee of the accuracy or completeness of information in this document.
== END 2023-08-05 09:24 | disposition home or self-care (01) ==
PROVIDERS: PCP Nurse Practitioner; Visit Provider Nurse Practitioner
DX: M17.11 Unilateral primary osteoarthritis, right knee (principal); M25.561 Pain in right knee; G89.29 Other chronic pain; Z79.1 Long term (current) use of non-steroidal anti-inflammatories (NSAID); Z79.891 Long term (current) use of opiate analgesic
CPT/HCPCS: G0463

== ENCOUNTER 2023-08-17 07:42 | Outpatient (RCR) | payer OTHER, SELFPAY | END 2023-08-18 17:00 | disposition home or self-care (01) | LOC: PT 07:42 | PROVIDERS: PCP Nurse Practitioner; Visit Provider Nurse Practitioner | DX: M17.11 Unilateral primary osteoarthritis, right knee (principal); M25.561 Pain in right knee | CPT/HCPCS: 97161 ==

== ENCOUNTER 2023-08-27 08:16 | Outpatient (OUT) | payer OTHER, SELFPAY ==
--- OUTSIDE RECORDS SUMMARY | 2023-08-27 08:21 | XMS_ITS | CCD ---
Author Organization [facility] Informat ion Partnership [facility] Care Team Providers Care Clarifier Operator Name Role Phone AICGALLO, CORPORATE COMPLIANCE OFFICER ELVIE Primary Care Unavailable ABEL, DR KRISTY Yarbrough Admitting Unavailable ABEL, DR KRISTY Yarbrough Consulting Unavailable ABEL, DR KRISTY Yarbrough Attending Unavailable CHAN RICHEY Consulting Unavailable AICHHOLZ, CORPORATE COMPLIANCE OFFICER ELVIE Primary Care Unavailable AICHHOLZ, CORPORATE COMPLIANCE OFFICER ELVIE Consulting Unavailable AICHHOLZ, CORPORATE COMPLIANCE OFFICER ELVIE Attending Unavailable AICHHOLZ, CORPORATE COMPLIANCE OFFICER ELVIE Admitting Unavailable AICHHOLZ, CORPORATE COMPLIANCE OFFICER ELVIE Primary Care Unavailable KARASIK ., DR FOFANA Consulting Unavailabl e KARASIK ., DR FOFANA Attending Unavailabl e KARASIK ., DR FOFANA Admitting Unavailabl e Mary Jo Thibodeaux Unavailable Percy TENT ASSEMBLER, Elvie Unavailable Chris Pelaez MD Primary Care Provider DEEP HENRY Attending Unavailable DEEP HENRY Referring Unavailable AICHHOLZ, ELVIE Attending Unavailable DEEP HENRY Attending Unavailable AICHHOLZ, ELVIE Attending Unavailable TIEN MORALES Attending Unavailable AICHHOLZ, ELVIE Attending Unavailable Adelina SAGASTUME, Jamshid Jha Attending Unavailable Aichholz, Elvie Tuan Primary Care Unavailable Rogelio Oviedo Admitting Unavailab le Rogelio Oviedo Attending Unavailab le Allergies Allergy Classification Reported Allergen(s) Allergy Type Date of Onset Reaction(s) Facility (1 source) diphenhydrAMINE Drug Allergy [facility] Repository (1 source) Latex Drug allergy (disorder) [facility]ository (1 source) diphenhydrAMINE Drug Allergy Unknown [facility] Other (1 source) Latex Propensity to adverse reactions Unknown [facility] Other (3 sources) diphenhydrAMINE Drug Allergy 08-09-19 Hives, Itching, Rash, Unknown [facility] (3 sources) Latex Propensity to adverse reactions 08-09-19 Hives, Itching, Rash, Unknown [facility] (3 sources) Prednisone Propensity to adverse reactions 04-01-19 [facility] (3 sources) Antihistamines, Diphenhydramine-Ty pe Propensity to adverse reactions 04-01-19 [facility] (1 source) diphenhydrAMINE Drug Allergy 02-27-20 [facility] Repository (1 source) Latex Drug allergy (disorder) 02-27-20 [facility] Medications Current Medications Medication Drug Class(es) Dates Sig (Normalized) Sig (Original) 8 hr acetaminophen 650 mg extended release oral tablet (1 source) take 2 tablets by mouth every eight hours Acetaminophen ER 650 MG 2 tablets as needed Orally every 8 hrs Active [id number] actuat albuterol 0.09 mg/actuat metered dose [...] 30 tablet 1 04/13/2023 05/13/2023 Active calcitriol 0.68290 mg oral capsule (3 sources) Vitamin D3 [...] bedtime 90 tablet 1 04/13/2023 07/12/2023 Active Rosenberg-3 Fatty Acids (Fish Oil) 1000 MG capsule delayed-release (3 sources) Rosenberg-3 Fatty Ac ids (Fish Oil) 1000 MG [...] 02-25-2022 [facility] Other aftercare (1 source) 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 Tracey Mccoy Basophils/100 WBC (Bld) 0.3 % Normal 0.2-2.0 [facility] Comment on above: Performed By: #### C BC #### [facility] [address] [place] [address] Dr. Tracey Mccoy EO # 0.2 103/ul Normal 0.0-0.7 [facility] Comment on above: Performed By: #### C BC #### [facility] [address] [place] [address] Dr. Tracey Mccoy Eosinophils/100 WBC (Bld) 1.7 % Normal 0.9-7.0 [facility] Comment on above: Performed By: #### C BC #### [facility] [address] [place] [address] Dr. Tracey Mccoy Erythrocyte distribution width (RBC) [Ratio] 12.4 % Normal 11.0-15.0 [facility] Comment on above: Performed By: #### C BC #### [facility] [address] [place] [address] Dr. Tracey Mccoy Hematocrit (Bld) [Volume fraction] 36.2 % Normal 36.0-48.0 [facility] Comment on above: Performed By: #### C BC #### [facility] [address] [place] [address] Dr. Tracey Mccoy Hemoglobin (Bld) [Mass/Vol] 12.2 g/dL Normal 12.0-16.0 [facility] Comment on above: Performed By: #### C BC #### [facility] [address] [place] [address] Dr. Tracey Mccoy IG # 0.05 10e3/ul Critically high 0.00-0.03 [facility] Comment on above: Performed By: #### C BC #### [facility] [address] [place] [address] Dr. Tracey Mccoy IG % 0.5 % Normal 0.0-0.5 [facility] Comment on above: Performed By: #### C BC #### [facility] [address] [place] [address] Dr. Tracey Mccoy LYMPH # 2.3 103/ul Normal 1.2-3.8 [facility] Comment on above: Performed By: #### C BC #### [facility] [address] [place] [address] Dr. Tracey Mccoy Lymphocytes/100 WBC (Bld) 25.6 % Normal 20.5-60.0 [facility] Comment on above: Performed By: #### C BC #### [facility] [address] [place] [address] Dr. Tracey Mccoy MANUAL DIFF REQ NO Normal [facility] Comment on above: Performed By: #### C BC #### [facility] [address] [place] [address] Dr. Tracey Mccoy MCH (RBC) [Entitic mass] 29.0 pg Normal 26.7-34.0 [facility] Comment on above: Performed By: #### C BC #### [facility] [address] [place] [address] Dr. Tracey Mccoy MCHC (RBC) [Mass/Vol] 33.7 g/dL Normal 29.9-35.2 [facility] Comment on above: Performed By: #### C BC #### [facility] [address] [place] [address] Dr. Tracey Mccoy MCV (RBC) [Entitic vol] 86.0 fL Normal 81.0-99.0 [facility] Comment on above: Performed By: #### C BC #### [facility] [address] [address] [address] Tracey Mccoy MONO # 0.7 103/ul Normal 0.3-0.8 [facility] Comment on above: Performed By: #### C BC #### [facility] [address] [address] [address] Tracey Mccoy Monocytes/100 WBC (Bld) 7.7 % Normal 1.7-12.0 [facility] Comment on above: Performed By: #### C BC #### [facility] [address] [address] [address] Tracey Mccoy NEUT # 5.9 103/ul Normal 1.4-6.5 [facility] Comment on above: Performed By: #### C BC #### [facility] [address] [place] [address] Dr. Tracey Mccoy Neutrophils/100 WBC (Bld) 64.2 % Normal 43.0-75.0 [facility] Comment on above: Performed By: #### C BC #### [facility] [address] [place] [address] Dr. Tracey Mccoy Platelet mean volume (Bld) [Entitic vol] 9.5 fL Normal 9.5-13.5 [facility] Comment on above: Performed By: #### C BC #### [facility] [address] [place] [address] Dr. Tracey Mccoy PLT 348 103/ul Normal 150-450 [facility] Comment on above: Performed By: #### C BC #### [facility] [address] [place] [address] Dr. Tracey Mccoy RBC 4.21 106/ul Normal 4.20-5.40 [facility] Comment on above: Performed By: #### C BC #### [facility] [address] [place] [address] Dr. Tracey Mccoy WBC 9.2 103/ul Normal 4.0-11.0 [facility] Comment on above: Performed By: #### C BC #### [facility] [address] [place] [address] Dr. Tracey Mccoy FERRITINon 05-28-2022 Ferritin [Mass/Vol] 15.0 ng/mL Normal 6.2-137.0 [facility] Comment on above: Performed By: #### F ERR #### [facility] [address] [place] [address] Dr. Tracey Mccoy MAGNESIUMon 05-28-2022 Magnesium [Mass/Vol] 1.7 mg/dL Critically low 1.8-2.4 [facility] Comment on above: Performed By: #### M G, CMP #### [facility] [address] [place] [address] Dr. Tracey Mccoy PROF 14(COMP METB)on 023 Albumin [Mass/Vol] 3.7 g/dL Normal 3.4-5.0 [facility] Comment on above: Performed By: #### M G, CMP #### [facility] [address] [place] [address] Dr. Tracey Mccoy Albumin/Globulin [Mass ratio] 1.0 {ratio} Normal [facility] Comment on above: Performed By: #### M G, CMP #### [facility] [address] [place] [address] Dr. Tracey Mccoy ALP [Catalytic activity/Vol] 89 U/L Normal 46-116 [facility] Comment on above: Performed By: #### M G, CMP #### [facility] [address] [place] [address] Dr. Tracey Mccoy ALT [Catalytic activity/Vol] 26 U/L Normal 14-59 [facility] Comment on above: Performed By: #### M G, CMP #### [facility] [address] [place] [address] Dr. Tracey Mccoy Anion gap [Moles/Vol] 13.2 mmol/L Normal [facility] Comment on above: Performed By: #### M G, CMP #### [facility] [address] [place] [address] Dr. Tracey Mccoy AST [Catalytic activity/Vol] 19 U/L Normal 15-37 [facility] Comment on above: Performed By: #### M G, CMP #### [facility] [address] [place] [address] Dr. Tracey Mccoy Bilirubin [Mass/Vol] 0.6 mg/dL Normal 0.2-1.0 [facility] Comment on above: Performed By: #### M G, CMP #### [facility] [address] [place] [address] Dr. Tracey Mccoy Calcium [Mass/Vol] 9.2 mg/dL Normal 8.5-10.1 [facility] Comment on above: Performed By: #### M G, CMP #### [facility] [address] [place] [address] Dr. Tracey Mccoy Chloride [Moles/Vol] 101 mmol/L Normal 98-107 [facility] Comment on above: Performed By: #### M G, CMP #### [facility] [address] [place] [address] Dr. Tracey Mccoy CO2 [Moles/Vol] 26.9 mmol/L Normal 21.0-32.0 [facility] Comment on above: Performed By: #### M G, CMP #### [facility] [address] [place] [address] Dr. Tracey Mccoy Creatinine [Mass/Vol] 0.47 mg/dL Critically low 0.55-1.02 [facility] Comment on above: Performed By: #### M G, CMP #### [facility] [address] [place] [address] Dr. Tracey Mccoy EGFR-AF ALBANIAN >60 Normal >=60 [facility] Comment on above: Performed By: #### M G, CMP #### [facility] [address] [place] [address] Dr. Tracey Mccoy EGFR-NON AF ALBANIAN >60 Normal >=60 [facility] Comment on above: Performed By: #### M G, CMP #### [facility] [address] [place] [address] Dr. Tracey Mccoy Globulin (S) [Mass/Vol] 3.6 g/dL Normal [facility] Comment on above: Performed By: #### M G, CMP #### [facility] [address] [address] [address] Tracey Mccoy Glucose [Mass/Vol] 88 mg/dL Normal 74-[address] [facility] Comment on above: Performed By: #### M G, CMP #### [facility] [address] [address] [address] Tracey Mccoy Potassium [Moles/Vol] 4.1 mmol/L Normal 3.5-5.1 [facility] Comment on above: Performed By: #### M G, CMP #### [facility] [address] [address] [address] Tracey Mccoy Protein [Mass/Vol] 7.3 g/dL Normal 6.4-8.[address] [facility] Comment on above: Performed By: #### M G, CMP #### [facility] [address] [address] [address] Tracey Mccoy Sodium [Moles/Vol] 137 mmol/L Normal 136-[address] [facility] Comment on above: Performed By: #### M G, CMP #### [facility] [address] [address] [address] Tracey Mccoy Urea nitrogen [Mass/Vol] 5.0 mg/dL Critically low 7.0-18.0 [facility] Comment on above: Performed By: #### M G, CMP #### [facility] [address] [address] [address] Tracey Mccoy Urea nitrogen/Creatinin e [Mass ratio] 10.6 mg/mg [facility] Comment on above: Performed By: #### M G, CMP #### [facility] [address] [address] [address] Tracey Mccoy PAP ACOG PANEL 2: 30 to 65on 05-14-2022 . . Normal [facility] Comment on above: Result Comment: Perf ormed at: WB Performed By: #### [id number] #### [facility] [address] [address] [address] Tracey Mccoy Age Gdln ACOG Testing 30-65 Normal [facility] Comment on above: Performed By: #### [id number] #### [facility] [address] [place] [address] Dr. Tracey Mccoy DIAGNOSIS: Comment Normal [facility] Comment on above: Result Comment: NEGA TIVE FOR INTRAEPITHELIAL LESION OR MALIGNANCY. Performed at: WB Performed By: #### [id number] #### [facility] [address] [place] [address] Dr. Tracey Mccoy HPV Aptima Negative Normal Negative [facility] Comment on above: Result Comment: This nucleic acid amplification test detects fourteen high-risk HPV types (16,18,31,33,35,39,45,51,52,56,58,59,66,68) without differentiation. Performed at: =G Performed By: #### [id number] #### [facility] [address] [place] [address] Dr. Tracey Mccoy HPV Genotype Reflex Comment Normal [facility] Comment on above: Result Comment: Crit eria not met, HPV Genotype not performed. Performed at: WB Performed By: #### [id number] #### [facility] [address] [place] [address] Dr. Tracey Mccoy Methodology: Comment Normal [facility] Comment on above: Result Comment: This liquid based ThinPrep(R) pap test was screened with the use of an image guided system. Performed at: WB Performed By: #### [id number] #### [facility] [address] [place] [address] Dr. Tracey Mccoy Note: Comment Normal [facility] Comment on above: Result Comment: The Pap smear is a screening test designed to aid in the detection of premalignant and malignant conditions of the uterine cervix. It is not a diagnostic procedure and should not be used as the sole means of detecting cervical cancer. Both false-positive and false-negative reports do occur. . Performed at: WB Performed By: #### [id number] #### [facility] [address] [place] [address] Dr. Tracey Mccoy Performed by: Comment Normal [facility] Comment on above: Result Comment: Daysi Kim Cheema, Auto Body Repair Technician Performed at: WB Performed By: #### [id number] #### [facility] [address] [place] [address] Dr. Tracey Mccoy Specimen adequacy: Comment Normal [facility] Comment on above: Result Comment: Sati sfactory for evaluation. Endocervical and/or squamous metaplastic cells (endocervical component) are present. Performed at: WB Performed By: #### [id number] #### [facility] [address] [place] [address] Dr. Tracey Mccoy BNPon 02-23-2022 Natriuretic peptide B (Bld) [Mass/Vol] 37.0 pg/mL Normal <=450.0 [facility] Comment on above: Performed By: #### B TENT ASSEMBLER #### [facility] [address] [place] [address] Dr. Tracey Mccoy CBC AUTO DIFFon 02-23-2022 BASO # 0.0 103/ul Normal 0.0-0.1 [facility] Comment on above: Performed By: #### C BC #### [facility] [address] [place] [address] Dr. Tracey Mccoy Basophils/100 WBC (Bld) 0.3 % Normal 0.2-2.0 [facility] Comment on above: Performed By: #### C BC #### [facility] [address] [place] [address] Dr. Tracey Mccoy EO # 0.0 103/ul Normal 0.0-0.7 [facility] Comment on above: Performed By: #### C BC #### [facility] [address] [place] [address] Dr. Tracey Mccoy Eosinophils/100 WBC (Bld) 0.3 % Critically low 0.9-7.0 [facility] Comment on above: Performed By: #### C BC #### [facility] [address] [place] [address] Dr. Tracey Mccoy Erythrocyte distribution width (RBC) [Ratio] 12.9 % Normal 11.0-15.0 [facility] Comment on above: Performed By: #### C BC #### [facility] [address] [place] [address] Dr. Tracey Mccoy Hematocrit (Bld) [Volume fraction] 37.5 % Normal 36.0-48.0 [facility] Comment on above: Performed By: #### C BC #### [facility] [address] [place] [address] Dr. Tracey Mccoy Hemoglobin (Bld) [Mass/Vol] 12.1 g/dL Normal 12.0-16.0 [facility] Comment on above: Performed By: #### C BC #### [facility] [address] [place] [address] Dr. Tracey Mccoy IG # 0.02 10e3/ul Normal 0.00-0.03 [facility] Comment on above: Performed By: #### C BC #### [facility] [address] [place] [address] Dr. Tracey Mccoy IG % 0.3 % Normal 0.0-0.5 [facility] Comment on above: Performed By: #### C BC #### [facility] [address] [place] [address] Dr. Tracey Mccoy LYMPH # 2.0 103/ul Normal 1.2-3.8 [facility] Comment on above: Performed By: #### C BC #### [facility] [address] [place] [address] Dr. Tracey Mccoy Lymphocytes/100 WBC (Bld) 28.4 % Normal 20.5-60.0 [facility] Comment on above: Performed By: #### C BC #### [facility] [address] [place] [address] Dr. Tracey Mccoy MANUAL DIFF REQ NO Normal [facility] Comment on above: Performed By: #### C BC #### [facility] [address] [place] [address] Dr. Tracey Mccoy MCH (RBC) [Entitic mass] 28.5 pg Normal 26.7-34.0 [facility] Comment on above: Performed By: #### C BC #### [facility] [address] [place] [address] Dr. Tracey Mccoy MCHC (RBC) [Mass/Vol] 32.3 g/dL Normal 29.9-35.2 [facility] Comment on above: Performed By: #### C BC #### [facility] [address] [place] [address] Dr. Tracey Mccoy MCV (RBC) [Entitic vol] 88.4 fL Normal 81.0-99.0 [facility] Comment on above: Performed By: #### C BC #### [facility] [address] [place] [address] Dr. Tracey Mccoy MONO # 0.5 103/ul Normal 0.3-0.8 [facility] Comment on above: Performed By: #### C BC #### [facility] [address] [place] [address] Dr. Tracey Mccoy Monocytes/100 WBC (Bld) 7.7 % Normal 1.7-12.0 [facility] Comment on above: Performed By: #### C BC #### [facility] [address] [place] [address] Dr. Tracey Mccoy NEUT # 4.4 103/ul Normal 1.4-6.5 [facility] Comment on above: Performed By: #### C BC #### [facility] [address] [place] [address] Dr. Tracey Mccoy Neutrophils/100 WBC (Bld) 63.0 % Normal 43.0-75.0 [facility] Comment on above: Performed By: #### C BC #### [facility] [address] [place] [address] Dr. Tracey Mccoy Platelet mean volume (Bld) [Entitic vol] 9.2 fL Critically low 9.5-13.5 [facility] Comment on above: Performed By: #### C BC #### [facility] [address] [place] [address] Dr. Tracey Mccoy PLT 278 103/ul Normal 150-450 [facility] Comment on above: Performed By: #### C BC #### [facility] [address] [place] [address] Dr. Tracey Mccoy RBC 4.24 106/ul Normal 4.20-5.40 [facility] Comment on above: Performed By: #### C BC #### [facility] [address] [place] [address] Dr. Tracey Mccoy WBC 6.9 103/ul Normal 4.0-11.0 [facility] Comment on above: Performed By: #### C BC #### [facility] [address] [place] [address] Dr. Tracey Mccoy PROF 14(COMP METB)on 022 Albumin [Mass/Vol] 3.7 g/dL Normal 3.4-5.0 [facility] Comment on above: Performed By: #### C JASIEL, HSTROPN #### [facility] [address] [place] [address] Dr. Tracey Mccoy Albumin/Globulin [Mass ratio] 0.9 {ratio} Normal [facility] Comment on above: Performed By: #### C JASIEL, HSTROPN #### [facility] [address] [place] [address] Dr. Tracey Mccoy ALP [Catalytic activity/Vol] 103 U/L Normal 46-116 [facility] Comment on above: Performed By: #### C JASIEL, HSTROPN #### [facility] [address] [place] [address] Dr. Tracey Mccoy ALT [Catalytic activity/Vol] 67 U/L Critically high 14-59 [facility] Comment on above: Performed By: #### C JASIEL, HSTROPN #### [facility] [address] [place] [address] Dr. Tracey Mccoy Anion gap [Moles/Vol] 9.6 mmol/L Normal [facility] Comment on above: Performed By: #### C MP, HSTROPN #### [facility] [address] [place] [address] Dr. Tracey Mccoy AST [Catalytic activity/Vol] 100 U/L Critically high 15-37 [facility] Comment on above: Performed By: #### C MP, HSTROPN #### [facility] [address] [address] [address] Tracey Mccoy Bilirubin [Mass/Vol] 0.4 mg/dL Normal 0.2-1.0 [facility] Comment on above: Performed By: #### C MP, HSTROPN #### [facility] [address] [id number] Dr. Tracey Mccoy Calcium [Mass/Vol] 8.8 mg/dL Normal 8.5-10.1 [facility] Comment on above: Performed By: #### C MP, HSTROPN #### [facility] [address] [address] [address] Tracey Mccoy Chloride [Moles/Vol] 104 mmol/L Normal 98-107 [facility] Comment on above: Performed By: #### C MP, HSTROPN #### [facility] [address] [place] [address] Dr. Tracey Mccoy CO2 [Moles/Vol] 28.5 mmol/L Normal 21.0-32.0 [facility] Comment on above: Performed By: #### C MP, HSTROPN #### [facility] [address] [place] [address] Dr. Tracey Mccoy Creatinine [Mass/Vol] 0.71 mg/dL Normal 0.55-1.02 [facility] Comment on above: Performed By: #### C MP, HSTROPN #### [facility] [address] [place] [address] Dr. Tracey Mccoy EGFR-AF ALBANIAN >60 Normal >=60 [facility] Comment on above: Performed By: #### C MP, HSTROPN #### [facility] [address] [place] [address] Dr. Tracey Mccoy EGFR-NON AF ALBANIAN >60 Normal >=60 [facility] Comment on above: Performed By: #### C MP, HSTROPN #### [facility] [address] [place] [address] Dr. Tracey Mccoy Globulin (S) [Mass/Vol] 3.9 g/dL Normal [facility] Comment on above: Performed By: #### C MP, HSTROPN #### [facility] [address] [address] [address] Tracey Mccoy Glucose [Mass/Vol] 113 mg/dL Critically high 74-[address] [facility] Comment on above: Performed By: #### C MP, HSTROPN #### [facility] [address] [address] [address] Tracey Mccoy Potassium [Moles/Vol] 3.1 mmol/L Critically low 3.5-5.1 [facility] Comment on above: Performed By: #### C MP, HSTROPN #### [facility] [address] [address] [address] Tracey Mccoy Protein [Mass/Vol] 7.6 g/dL Normal 6.4-8.[address] [facility] Comment on above: Performed By: #### C MP, HSTROPN #### [facility] [address] [address] [address] Tracey Mccoy Sodium [Moles/Vol] 139 mmol/L Normal 136-[address] [facility] Comment on above: Performed By: #### C MP, HSTROPN #### [facility] [address] [address] [address] Tracey Mccoy Urea nitrogen [Mass/Vol] 9.0 mg/dL Normal 7.0-18.0 [facility] Comment on above: Performed By: #### C MP, HSTROPN #### [facility] [address] [address] [address] Tracey Mccoy Urea nitrogen/Creatinin e [Mass ratio] 12.7 mg/mg Normal [facility] Comment on above: Performed By: #### C MP, HSTROPN #### [facility] [address] [place] [address] Dr. Tracey Mccoy TROPONIN, HIGH SENSITIVITYon 02-23-2022 HSTROP 5.8 pg/mL Normal 4.0-51.3 [facility] Comment on above: Result Comment: CUT- OFF POINTS HAVE BEEN ESTABLISHED BASED ON THE FOURTH UNIVERSAL DEFINITIONS OF MYOCARDIAL INFARCTION. THE UPPER REFERENCE LIMIT (URL) OF TROPONIN, DEFINED THE 99TH PERCENTILE OF cTnI DISTRIBUTION IN A REFERENCE POPULATION, HAS BEEN CONFIRMED THE DECISION THRESHOLD FOR [place] DIAGNOSIS. Performed By: #### C MP, HSTROPN #### [facility] [address] [address] [address] Tracey Mccoy XR CHEST 1 Von [...] CHAN RICHEY Date: 2022-02-23 03:04 Normal [facility] Vital Signs Date Time Vital Sign Value Performing Clinician Facility 02-26-2023 09:45-0500 Body height 157.48 cm Mary Jo Thibodeaux Other [facility] Other 02-26-2023 09:45-0500 Body mass index (BMI) [Ratio] 57.13 kg/m2 Mary Jo Thibodeaux Other [facility] Other 02-26-2023 09:45-0500 Body temperature 97.2 [degF] Mary Jo Thibodeaux Other [facility] Other 02-26-2023 09:45-0500 Body weight 141.7 kg Mary Jo Thibodeaux Other [facility] Other 02-26-2023 09:45-0500 Diastolic blood pressure 86 mm[Hg] Mary Jo Thibodeaux Other [facility] Other 02-26-2023 09:45-0500 Respiratory rate 18 /min Mary Jo Thibodeaux Other [facility] Other 02-26-2023 09:45-0500 SaO2% (BldA) [Mass fraction] 98 % Mary Jo Thibodeaux Other [facility] Other 02-26-2023 09:45-0500 Systolic blood pressure 136 mm[Hg] Mary Jo Thibodeaux Other [facility] Other Encounters Encounter Date Encounter Type Care Provider Facility Start: 07-27-2023 ambulatory Elvie Greer Facilit y:[facility] Start: 07-19-2023 End: 07-20-2023 ambulatory Jamshid Sahu MD Facility:[facility] Start: 06-29-2023 End: 06-29-2023 ambulatory ELVIE PERCY Not Available Start: 05-27-2023 End: 05-27-2023 ambulatory TIEN MORALES Not Available Start: 05-18-2023 End: 05-18-2023 ambulatory ELVIE GREER Not Available Start: 04-22-2023 End: 04-22-2023 ambulatory DEEP HENRY Not Available Start: 04-22-2023 End: 04-22-2023 Office outpatient visit 10 minutes Deep Henry [employer]SEM[employer] Work Phone: [facility] Comment on above: Primary osteoarthrit is of right knee (Primary Dx); Right knee pain, unspecified chronicity Start: 04-14-2023 Telephone encounter Elvie darnell [employer] ASSEMBLER Work Phone: [facility] Start: 04-13-2023 End: 04-13-2023 ambulatory ELVIE GREER Not Available Start: 04-01-2023 End: 04-02-2023 ambulatory DEEP HENRY Not Available Start: 02-26-2023 End: 02-26-2023 ambulatory Mary Jo Thibodeaux Other [facility] Other Start: 02-26-2023 Office outpatient vi sit 15 minutes Mary Jo Thibodeaux [facility] Start: 05-28-2022 End: 05-29-2022 ambulatory CORPORATE COMPLIANCE OFFICER ELVIE GREER Facility:[facility] Start: 05-06-2022 End: 05-06-2022 ambulatory CORPORATE COMPLIANCE OFFICER ELVIE GREER Facility:[facility] Start: 02-23-2022 End: 02-23-2022 ambulatory CORPORATE COMPLIANCE OFFICER ELVIE GREER Facility:[facility] Plan of Treatment Date Care Activity Detail Author Start: 05-27-2023 End: 05-27-2023 Patient encounter procedure 05/27/2023 10:00 AM EDT Office Visit [facility] [address] [place] [id number] Tien Morales DO [address] [address] [facility] Start: 05-18-2023 End: 05-18-2023 Patient encounter procedure 05/18/2023 9:20 AM EDT Office Visit [facility] [address] [place] [address] Elvie Greer NP [address] [place] [address] [facility] Start: 04-22-2023 End: 04-22-2023 Patient encounter procedure 04/22/2023 10:15 AM EST Office Visit [facility] [address] [place] [phone] Deep Henry NP [address] [place], [place] [id number] [facility] Start: 11-18-2013 Screening for malignant neoplasm of cervix [facility] Start: 11-18-2004 Screening for malignant neoplasm of cervix Pap Smear [facility] Healthcare Payers Date Payer Category Payer Self-pay 2023 Unknown [id number] 1983 Unknown [id number] 2.16.84 [id number] 1983 Unknown [id number] 2.16.84 [id number] 1983 Unknown [id number] 2.16.84 [id number] 1983 Unknown [id number] 2.16.84 [id number] 1983 Unknown [id number] 2.16.84 [id number] 1983 Unknown [id number] 2.16.84 [id number] 1983 Unknown [id number] 2.16.84 [id number] 1983 Unknown [id number] 2.16.84 [id number] 1983 Unknown [id number] 2.16.84 [id number] 1983 Unknown [id number] 2.16.84 [id number] 1983 Unknown [id number] 2.16. [id number] 1959 Unknown [id number] Social History Date Type Detail Facility Start: 04-06-2023 End: 04-13-2023 Sex Assigned At [facility] Start: 04-01-2023 Tobacco smoking status SCIS Never smoked tobacco [facility] Work Phone: Start: 04-01-2023 Tobacco use and exposure Smokeless tobacco non-user [facility] Start: 04-13-2023 End: 04-22-2023 Alcohol intake Lifetime non-drinker (finding) [facility] Start: 04-06-2023 End: 04-13-2023 History of Social function [facility] Within the last year , have you been afraid of your partner or ex-partner? No [facility] Do you belong to any clubs or organizations such as bahai groups, unions, fraternal or athletic groups, or [...] Gender identity Identifies as female gender (finding) [facility] History of Present illness Narrative 04-22-2023 [...] Oral montelukast (SINGULAIR) 10 mg, Oral, Nightly Rosenberg-3 Fatty Acids (Fish Oil) 1000 MG capsule [...] develop for requiring urgent evaluation. 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 jeannie from [facility] [employer] calling about pt's traMADol (Ultram) 50 MG tablet. They need it verified. You wrote a quanity of 15 days but the directions say 1 tablet PO for 10 days documented in this encounter [facility] Healthcare Evaluation note 02-26-2023 Note Date & [...] PCP if no improvement in 2-3 days. [facility] Other Evaluation note Note Date & Type [...] surgical hx Hospitalization History 2 child births [facility] Other Summary Purpose Family History No Family [...] DATE CREATED AUTHOR AUTHOR'S ORGANIZ ATION 06/30/2023 [facility] EPIC DATE CREATED AUTHOR AUTHOR'S ORGANIZ ATION 07/22/2023 [facility] DATE CREATED AUTHOR AUTHOR'S ORGANIZ ATION 08/17/2023 [facility] REASON FOR VISIT (unrecogniz ed section and content) Reason Comments Follow-up Care Teams (unrecognized sec tion and content) Clarifier Operator Relationship Specialty Start Date End Date Chris Pelaez MD [address] [place] [address] PCP - General Family Medicine 04/01/23 Elvie Greer NP [address] [place] [address] Nurse Practitioner Family Medicine 04/01/23 Clarifier Operator Relationship Specialty Start Date End Date Chris Pelaez MD [address] [place] [address] PCP - General Family Medicine 04/01/23 Elvie Greer NP [address] [place] [address] Nurse Practitioner Family Medicine 04/01/23 [...] BE BASED ON THE PRIMARY CLINICAL RECORDS. [facility] [employer] [facility]. provides no warranty or guarantee of the accuracy or completeness of information in this document.
[2023-08-27 09:52] LABS: Thyroid Stimulating Hormone 6.606 uIU/mL (0.358-3.740)
[2023-08-27 10:42] LABS: Free T4 0.94 ng/dL (0.76-1.46)
== END 2023-08-27 08:17 | disposition home or self-care (01) ==
PROVIDERS: PCP Nurse Practitioner; Visit Provider Nurse Practitioner
DX: E06.3 Autoimmune thyroiditis (principal)
CPT/HCPCS: 36415; 84439; 84443

== ENCOUNTER 2023-08-29 15:28 | Emergency (ER) | payer OTHER, SELFPAY ==
--- OUTSIDE RECORDS SUMMARY | 2023-08-29 15:36 | XMS_ITS | CCD ---
Author Organization [facility] [place] Informat ion Partnership [facility] Care Team Providers Care Transit Authority Police Officer Name Role Phone AICGALLO, STAY CUTTER ELVIE Primary Care Unavailable ABEL, DR KRISTY Yarbrough Admitting Unavailable ABEL, DR KRISTY Yarbrough Consulting Unavailable ABEL, DR KRISTY Yarbrough Attending Unavailable CHAN RICHEY Consulting Unavailable AICHHOLZ, STAY CUTTER ELVIE Primary Care Unavailable AICHHOLZ, STAY CUTTER ELVIE Consulting Unavailable AICHHOLZ, STAY CUTTER ELVIE Attending Unavailable AICHHOLZ, STAY CUTTER ELVIE Admitting Unavailable AICHHOLZ, STAY CUTTER ELVIE Primary Care Unavailable KARASIK ., DR FOFANA Consulting Unavailabl e KARASIK ., DR FOFANA Attending Unavailabl e KARASIK ., DR FOFANA Admitting Unavailabl e Mary Jo Thibodeaux Unavailable Percy MUSEUM INFORMATICS SPECIALIST, Elvie Unavailable Chris Pelaez MD Primary Care [...] Facility (1 source) diphenhydrAMINE Drug Allergy [facility] Repository (1 source) Latex Drug allergy (disorder) [facility]ository (1 source) diphenhydrAMINE Drug Allergy Unknown [facility] Other (1 source) Latex Propensity to adverse reactions Unknown [facility] Other (3 sources) diphenhydrAMINE Drug Allergy 08-09-19 Hives, Itching, Rash, Unknown [facility] (3 sources) Latex Propensity to adverse reactions 08-09-19 Hives, Itching, Rash, Unknown [facility] (3 sources) Prednisone Propensity to adverse reactions 04-01-19 [facility] (3 sources) Antihistamines, Diphenhydramine-Ty pe Propensity to adverse reactions 04-01-19 [facility] (1 source) diphenhydrAMINE Drug Allergy 02-27-20 [facility] Repository (1 source) Latex Drug allergy (disorder) 02-27-20 [facility] Repository Medications Current Medications Medication Drug Class(es) Dates Sig (Normalized) Sig (Original) 8 hr acetaminophen 650 mg extended release oral tablet (1 source) take 2 tablets by mouth every eight hours Acetaminophen ER 650 MG 2 tablets as needed Orally every 8 hrs Active [id number] 200 actuat albuterol 0.09 mg/actuat metered dose [...] 30 tablet 1 04/13/2023 05/13/2023 Active calcitriol 0.89322 mg oral capsule (3 sources) Vitamin D3 [...] bedtime 90 tablet 1 04/13/2023 07/12/2023 Active Petersburg-3 Fatty Acids (Fish Oil) 1000 MG capsule delayed-release (3 sources) Petersburg-3 Fatty Ac ids (Fish Oil) 1000 MG [...] 02-25-2022 [facility] Other aftercare (1 source) 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 Tracey Mccoy Basophils/100 WBC (Bld) 0.3 % Normal 0.2-2.0 [facility] Comment on above: Performed By: #### C BC #### [facility] [address] [place] [address] Dr. Tracey Mccoy EO # 0.2 103/ul Normal 0.0-0.7 [facility] Comment on above: Performed By: #### C BC #### [facility] [address] [place] [address] Dr. Tracey Mccoy Eosinophils/100 WBC (Bld) 1.7 % Normal 0.9-7.0 [facility] Comment on above: Performed By: #### C BC #### [facility] [address] [place] [address] Dr. Tracey Mccoy Erythrocyte distribution width (RBC) [Ratio] 12.4 % Normal 11.0-15.0 [facility] Comment on above: Performed By: #### C BC #### [facility] [address] [place] [address] Dr. Tracey Mccoy Hematocrit (Bld) [Volume fraction] 36.2 % Normal 36.0-48.0 [facility] Comment on above: Performed By: #### C BC #### [facility] [address] [place] [address] Dr. Tracey Mccoy Hemoglobin (Bld) [Mass/Vol] 12.2 g/dL Normal 12.0-16.0 [facility] Comment on above: Performed By: #### C BC #### [facility] [address] [place] [address] Dr. Tracey Mccoy IG # 0.05 10e3/ul Critically high 0.00-0.03 [facility] Comment on above: Performed By: #### C BC #### [facility] [address] [place] [address] Dr. Tracey Mccoy IG % 0.5 % Normal 0.0-0.5 [facility] Comment on above: Performed By: #### C BC #### [facility] [address] [place] [address] Dr. Tracey Mccoy LYMPH # 2.3 103/ul Normal 1.2-3.8 [facility] Comment on above: Performed By: #### C BC #### [facility] [address] [place] [address] Dr. Tracey Mccoy Lymphocytes/100 WBC (Bld) 25.6 % Normal 20.5-60.0 [facility] Comment on above: Performed By: #### C BC #### [facility] [address] [place] [address] Dr. Tracey Mccoy MANUAL DIFF REQ NO Normal [facility] Comment on above: Performed By: #### C BC #### [facility] [address] [place] [address] Dr. Tracey Mccoy MCH (RBC) [Entitic mass] 29.0 pg Normal 26.7-34.0 [facility] Comment on above: Performed By: #### C BC #### [facility] [address] [place] [address] Dr. Tracey Mccoy MCHC (RBC) [Mass/Vol] 33.7 g/dL Normal 29.9-35.2 [facility] Comment on above: Performed By: #### C BC #### [facility] [address] [place] [address] Dr. Tracey Mccoy MCV (RBC) [Entitic vol] 86.0 fL Normal 81.0-99.0 [facility] Comment on above: Performed By: #### C BC #### [facility] [address] [address] [address] Tracey Mccoy MONO # 0.7 103/ul Normal 0.3-0.8 [facility] Comment on above: Performed By: #### C BC #### [facility] [address] [address] [address] Tracey Mccoy Monocytes/100 WBC (Bld) 7.7 % Normal 1.7-12.0 [facility] Comment on above: Performed By: #### C BC #### [facility] [address] [address] [address] Tracey Mccoy NEUT # 5.9 103/ul Normal 1.4-6.5 [facility] Comment on above: Performed By: #### C BC #### [facility] [address] [place] [address] Dr. Tracey Mccoy Neutrophils/100 WBC (Bld) 64.2 % Normal 43.0-75.0 [facility] Comment on above: Performed By: #### C BC #### [facility] [address] [place] [address] Dr. Tracey Mccoy Platelet mean volume (Bld) [Entitic vol] 9.5 fL Normal 9.5-13.5 [facility] Comment on above: Performed By: #### C BC #### [facility] [address] [place] [address] Dr. Tracey Mccoy PLT 348 103/ul Normal 150-450 [facility] Comment on above: Performed By: #### C BC #### [facility] [address] [place] [address] Dr. Tracey Mccoy RBC 4.21 106/ul Normal 4.20-5.40 [facility] Comment on above: Performed By: #### C BC #### [facility] [address] [place] [address] Dr. Tracey Mccoy WBC 9.2 103/ul Normal 4.0-11.0 [facility] Comment on above: Performed By: #### C BC #### [facility] [address] [place] [address] Dr. Tracey Mccoy FERRITINon 05-28-2022 Ferritin [Mass/Vol] 15.0 ng/mL Normal 6.2-137.0 [facility] Comment on above: Performed By: #### F ERR #### [facility] [address] [place] [address] Dr. Tracey Mccoy MAGNESIUMon 05-28-2022 Magnesium [Mass/Vol] 1.7 mg/dL Critically low 1.8-2.4 [facility] Comment on above: Performed By: #### M G, CMP #### [facility] [address] [place] [address] Dr. Tracey cMcoy PROF 14(COMP METB)on 023 Albumin [Mass/Vol] 3.7 g/dL Normal 3.4-5.0 [facility] Comment on above: Performed By: #### M G, CMP #### [facility] [address] [place] [address] Dr. Tracey Mccoy Albumin/Globulin [Mass ratio] 1.0 {ratio} Normal [facility] Comment on above: Performed By: #### M G, CMP #### [facility] [address] [place] [address] Dr. Tracey Mccoy ALP [Catalytic activity/Vol] 89 U/L Normal 46-116 [facility] Comment on above: Performed By: #### M G, CMP #### [facility] [address] [place] [address] Dr. Tracey Mccoy ALT [Catalytic activity/Vol] 26 U/L Normal 14-59 [facility] Comment on above: Performed By: #### M G, CMP #### [facility] [address] [place] [address] Dr. Tracey Mccoy Anion gap [Moles/Vol] 13.2 mmol/L Normal [facility] Comment on above: Performed By: #### M G, CMP #### [facility] [address] [place] [address] Dr. Tracey Mccoy AST [Catalytic activity/Vol] 19 U/L Normal 15-37 [facility] Comment on above: Performed By: #### M G, CMP #### [facility] [address] [place] [address] Dr. Tracey Mccoy Bilirubin [Mass/Vol] 0.6 mg/dL Normal 0.2-1.0 [facility] Comment on above: Performed By: #### M G, CMP #### [facility] [address] [place] [address] Dr. Tracey Mccoy Calcium [Mass/Vol] 9.2 mg/dL Normal 8.5-10.1 [facility] Comment on above: Performed By: #### M G, CMP #### [facility] [address] [place] [address] Dr. Tracey Mccoy Chloride [Moles/Vol] 101 mmol/L Normal 98-107 [facility] Comment on above: Performed By: #### M G, CMP #### [facility] [address] [place] [address] Dr. Tracey Mccoy CO2 [Moles/Vol] 26.9 mmol/L Normal 21.0-32.0 [facility] Comment on above: Performed By: #### M G, CMP #### [facility] [address] [place] [address] Dr. Tracey Mccoy Creatinine [Mass/Vol] 0.47 mg/dL Critically low 0.55-1.02 [facility] Comment on above: Performed By: #### M G, CMP #### [facility] [address] [place] [address] Dr. Tracey Mccoy EGFR-AF BARBADIAN >60 Normal >=60 [facility] Comment on above: Performed By: #### M G, CMP #### [facility] [address] [place] [address] Dr. Tracey Mccoy EGFR-NON AF BARBADIAN >60 Normal >=60 [facility] Comment on above: Performed By: #### M G, CMP #### [facility] [address] [place] [address] Dr. Tracey Mccoy Globulin (S) [Mass/Vol] 3.6 g/dL Normal [facility] Comment on above: Performed By: #### M G, CMP #### [facility] [address] [address] [address] Tracey Mccoy Glucose [Mass/Vol] 88 mg/dL Normal 74-106 [facility] Comment on above: Performed By: #### M G, CMP #### [facility] [address] [address] [address] Tracey Mccoy Potassium [Moles/Vol] 4.1 mmol/L Normal 3.5-5.1 [facility] Comment on above: Performed By: #### M G, CMP #### [facility] [address] [address] [address] Tracey Mccoy Protein [Mass/Vol] 7.3 g/dL Normal 6.4-8.2 [facility] Comment on above: Performed By: #### M G, CMP #### [facility] [address] [address] [address] Tracey Mccoy Sodium [Moles/Vol] 137 mmol/L Normal 136-145 [facility] Comment on above: Performed By: #### M G, CMP #### [facility] [address] [address] [address] Tracey Mccoy Urea nitrogen [Mass/Vol] 5.0 mg/dL Critically low 7.0-18.0 [facility] Comment on above: Performed By: #### M G, CMP #### [facility] [address] [address] [address] Tracey Mccoy Urea nitrogen/Creatinin e [Mass ratio] 10.6 mg/mg [facility] Comment on above: Performed By: #### M G, CMP #### [facility] [address] [address] [address] Tracey Mccoy PAP ACOG PANEL 2: 30 to 65on 05-14-2022 . . Normal [facility] Comment on above: Result Comment: Perf ormed at: WB Performed By: #### [id number] #### [facility] [address] [address] [address] Tracey Mccoy Age Gdln ACOG Testing 30-65 Normal [facility] Comment on above: Performed By: #### [id number] #### [facility] [address] [place] [address] Dr. Tracey Mccoy DIAGNOSIS: Comment Normal [facility] Comment on above: Result Comment: NEGA TIVE FOR INTRAEPITHELIAL LESION OR MALIGNANCY. Performed at: WB Performed By: #### [id number] #### [facility] [address] [place] [address] Dr. Tracey Mccoy HPV Aptima Negative Normal Negative [facility] Comment on above: Result Comment: This nucleic acid amplification test detects fourteen high-risk HPV types (16,18,31,33,35,39,45,51,52,56,58,59,66,68) without differentiation. Performed at: =G Performed By: #### [id number] #### [facility] [address] [place] [address] Dr. Tracey Mccoy HPV Genotype Reflex Comment Normal [facility] Comment on above: Result Comment: Crit eria not met, HPV Genotype not performed. Performed at: WB Performed By: #### [id number] #### [facility] [address] [place] [address] Dr. Tracey Mccoy Methodology: Comment Normal [facility] Comment on above: Result Comment: This liquid based ThinPrep(R) pap test was screened with the use of an image guided system. Performed at: WB Performed By: #### [id number] #### [facility] [address] [place] [address] Dr. Tracey Mccoy Note: Comment Normal [facility] Comment on above: Result [...] Performed at: WB Performed By: #### [id number] #### [facility] [address] [place] [address] Dr. Tracey Mccoy Performed by: Comment Normal [facility] Comment on above: Result Comment: Daysi Kim Cheema, Lens Grinder Apprentice Performed at: WB Performed By: #### [id number] #### [facility] [address] [place] [address] Dr. Tracey Mccoy Specimen adequacy: Comment Normal [facility] Comment on above: Result Comment: Sati sfactory for evaluation. Endocervical and/or squamous metaplastic cells (endocervical component) are present. Performed at: WB Performed By: #### [id number] #### [facility] [address] [place] [address] Dr. Tracey Mccoy BNPon 02-23-2022 Natriuretic peptide B (Bld) [Mass/Vol] 37.0 pg/mL Normal <=450.0 [facility] Comment on above: Performed By: #### B MUSEUM INFORMATICS SPECIALIST #### [facility] [address] [place] [address] Dr. Tracey Mccoy CBC AUTO DIFFon 02-23-2022 BASO # 0.0 103/ul Normal 0.0-0.1 [facility] Comment on above: Performed By: #### C BC #### [facility] [address] [place] [address] Dr. Tracey Mccoy Basophils/100 WBC (Bld) 0.3 % Normal 0.2-2.0 [facility] Comment on above: Performed By: #### C BC #### [facility] [address] [place] [address] Dr. Tracey Mccoy EO # 0.0 103/ul Normal 0.0-0.7 [facility] Comment on above: Performed By: #### C BC #### [facility] [address] [place] [address] Dr. Tracey Mccoy Eosinophils/100 WBC (Bld) 0.3 % Critically low 0.9-7.0 [facility] Comment on above: Performed By: #### C BC #### [facility] [address] [place] [address] Dr. Tracey Mccoy Erythrocyte distribution width (RBC) [Ratio] 12.9 % Normal 11.0-15.0 [facility] Comment on above: Performed By: #### C BC #### [facility] [address] [place] [address] Dr. Tracey Mccoy Hematocrit (Bld) [Volume fraction] 37.5 % Normal 36.0-48.0 [facility] Comment on above: Performed By: #### C BC #### [facility] [address] [place] [address] Dr. Tracey Mccoy Hemoglobin (Bld) [Mass/Vol] 12.1 g/dL Normal 12.0-16.0 [facility] Comment on above: Performed By: #### C BC #### [facility] [address] [place] [address] Dr. Tracey Mccoy IG # 0.02 10e3/ul Normal 0.00-0.03 [facility] Comment on above: Performed By: #### C BC #### [facility] [address] [place] [address] Dr. Tracey Mccoy IG % 0.3 % Normal 0.0-0.5 [facility] Comment on above: Performed By: #### C BC #### [facility] [address] [place] [address] Dr. Tracey Mccoy LYMPH # 2.0 103/ul Normal 1.2-3.8 [facility] Comment on above: Performed By: #### C BC #### [facility] [address] [place] [address] Dr. Tracey Mccoy Lymphocytes/100 WBC (Bld) 28.4 % Normal 20.5-60.0 [facility] Comment on above: Performed By: #### C BC #### [facility] [address] [place] [address] Dr. Tracey Mccoy MANUAL DIFF REQ NO Normal [facility] Comment on above: Performed By: #### C BC #### [facility] [address] [place] [address] Dr. Tracey Mccoy MCH (RBC) [Entitic mass] 28.5 pg Normal 26.7-34.0 [facility] Comment on above: Performed By: #### C BC #### [facility] [address] [place] [address] Dr. Tracey Mccoy MCHC (RBC) [Mass/Vol] 32.3 g/dL Normal 29.9-35.2 [facility] Comment on above: Performed By: #### C BC #### [facility] [address] [place] [address] Dr. Tracey Mccoy MCV (RBC) [Entitic vol] 88.4 fL Normal 81.0-99.0 [facility] Comment on above: Performed By: #### C BC #### [facility] [address] [place] [address] Dr. Tracey Mccoy MONO # 0.5 103/ul Normal 0.3-0.8 [facility] Comment on above: Performed By: #### C BC #### [facility] [address] [place] [address] Dr. Tracey Mccoy Monocytes/100 WBC (Bld) 7.7 % Normal 1.7-12.0 [facility] Comment on above: Performed By: #### C BC #### [facility] [address] [place] [address] Dr. Tracey Mccoy NEUT # 4.4 103/ul Normal 1.4-6.5 [facility] Comment on above: Performed By: #### C BC #### [facility] [address] [place] [address] Dr. Tracey Mccoy Neutrophils/100 WBC (Bld) 63.0 % Normal 43.0-75.0 [facility] Comment on above: Performed By: #### C BC #### [facility] [address] [place] [address] Dr. Tracey Mccoy Platelet mean volume (Bld) [Entitic vol] 9.2 fL Critically low 9.5-13.5 [facility] Comment on above: Performed By: #### C BC #### [facility] [address] [place] [address] Dr. Tracey Mccoy PLT 278 103/ul Normal 150-450 [facility] Comment on above: Performed By: #### C BC #### [facility] [address] [place] [address] Dr. Tracey Mccoy RBC 4.24 106/ul Normal 4.20-5.40 [facility] Comment on above: Performed By: #### C BC #### [facility] [address] [place] [address] Dr. Tracey Mccoy WBC 6.9 103/ul Normal 4.0-11.0 [facility] Comment on above: Performed By: #### C BC #### [facility] [address] [place] [address] Dr. Tracey Mccoy PROF 14(COMP METB)on 022 Albumin [Mass/Vol] 3.7 g/dL Normal 3.4-5.0 [facility] Comment on above: Performed By: #### C JASIEL, HSTROPN #### [facility] [address] [place] [address] Dr. Tarcey Mccoy Albumin/Globulin [Mass ratio] 0.9 {ratio} Normal [facility] Comment on above: Performed By: #### C JASIEL, HSTROPN #### [facility] [address] [place] [address] Dr. Tracey Mccoy ALP [Catalytic activity/Vol] 103 U/L Normal 46-116 [facility] Comment on above: Performed By: #### C JASIEL, HSTROPN #### [facility] [address] [place] [address] Dr. Tracey Mccoy ALT [Catalytic activity/Vol] 67 U/L Critically high 14-59 [facility] Comment on above: Performed By: #### C JASIEL, HSTROPN #### [facility] [address] [place] [address] Dr. Tracey Mccoy Anion gap [Moles/Vol] 9.6 mmol/L Normal [facility] Comment on above: Performed By: #### C MP, HSTROPN #### [facility] [address] [place] [address] Dr. Tracey Mccoy AST [Catalytic activity/Vol] 100 U/L Critically high 15-37 [facility] Comment on above: Performed By: #### C MP, HSTROPN #### [facility] [address] [address] [address] Tracey Mccoy Bilirubin [Mass/Vol] 0.4 mg/dL Normal 0.2-1.0 [facility] Comment on above: Performed By: #### C MP, HSTROPN #### [facility] [address] [address] [address] Tracey Mccoy Calcium [Mass/Vol] 8.8 mg/dL Normal 8.5-10.1 [facility] Comment on above: Performed By: #### C MP, HSTROPN #### [facility] [address] [address] [address] Tracey Mccoy Chloride [Moles/Vol] 104 mmol/L Normal 98-107 [facility] Comment on above: Performed By: #### C MP, HSTROPN #### [facility] [address] [place] [address] Dr. Tracey Mccoy CO2 [Moles/Vol] 28.5 mmol/L Normal 21.0-32.0 [facility] Comment on above: Performed By: #### C MP, HSTROPN #### [facility] [address] [place] [address] Dr. Tracey Mccoy Creatinine [Mass/Vol] 0.71 mg/dL Normal 0.55-1.02 [facility] Comment on above: Performed By: #### C MP, HSTROPN #### [facility] [address] [place] [address] Dr. Tracey Mccoy EGFR-AF BARBADIAN >60 Normal >=60 [facility] Comment on above: Performed By: #### C MP, HSTROPN #### [facility] [address] [place] [address] Dr. Tracey Mccoy EGFR-NON AF BARBADIAN >60 Normal >=60 [facility] Comment on above: Performed By: #### C MP, HSTROPN #### [facility] [address] [place] [address] Dr. Tracey Mccoy Globulin (S) [Mass/Vol] 3.9 g/dL Normal [facility] Comment on above: Performed By: #### C MP, HSTROPN #### [facility] [address] [address] [address] Tracey Mccoy Glucose [Mass/Vol] 113 mg/dL Critically high 74-106 [facility] Comment on above: Performed By: #### C MP, HSTROPN #### [facility] [address] [address] [address] Tracey Mccoy Potassium [Moles/Vol] 3.1 mmol/L Critically low 3.5-5.1 [facility] Comment on above: Performed By: #### C MP, HSTROPN #### [facility] [address] [address] [address] Tracey Mccoy Protein [Mass/Vol] 7.6 g/dL Normal 6.4-8.2 [facility] Comment on above: Performed By: #### C MP, HSTROPN #### [facility] [address] [address] [address] Tracey Mccoy Sodium [Moles/Vol] 139 mmol/L Normal 136-145 [facility] Comment on above: Performed By: #### C MP, HSTROPN #### [facility] [address] [address] [address] Tracey Mccoy Urea nitrogen [Mass/Vol] 9.0 mg/dL Normal 7.0-18.0 [facility] Comment on above: Performed By: #### C MP, HSTROPN #### [facility] [address] [address] [address] Tracey Mccoy Urea nitrogen/Creatinin e [Mass ratio] 12.7 mg/mg Normal [facility] Comment on above: Performed By: #### C MP, HSTROPN #### [facility] [address] [place] [address] Dr. Tracey Mccoy TROPONIN, HIGH SENSITIVITYon 02-23-2022 HSTROP 5.8 pg/mL Normal 4.0-51.3 [facility] Comment on above: Result Comment: CUT- OFF POINTS HAVE BEEN ESTABLISHED BASED ON THE FOURTH UNIVERSAL DEFINITIONS OF MYOCARDIAL INFARCTION. THE UPPER REFERENCE LIMIT (URL) OF TROPONIN, DEFINED THE 99TH PERCENTILE OF cTnI DISTRIBUTION IN A REFERENCE POPULATION, HAS BEEN CONFIRMED THE DECISION THRESHOLD FOR ID DIAGNOSIS. Performed By: #### C MP, HSTROPN #### [facility] [address] [address] [address] Tracey Mccoy XR CHEST 1 Von [...] CHAN RICHEY Date: 2022-02-23 03:04 Normal [facility] Vital Signs Date Time Vital Sign Value Performing Clinician Facility 02-26-2023 09:45-0500 Body height 157.48 cm Mary Jo Thibodeaux Other [facility] Other 02-26-2023 09:45-0500 Body mass index (BMI) [Ratio] 57.13 kg/m2 Mary Jo Thibodeaux Other [facility] Other 02-26-2023 09:45-0500 Body temperature 97.2 [degF] Mary Jo Thibodeaux Other [facility] Other 02-26-2023 09:45-0500 Body weight 141.7 kg Mary Jo Thibodeaux Other [facility] Other 02-26-2023 09:45-0500 Diastolic blood pressure 86 mm[Hg] Mary Jo Thibodeaux Other [facility] Other 02-26-2023 09:45-0500 Respiratory rate 18 /min Mary Jo Thibodeaux Other [facility] Other 02-26-2023 09:45-0500 SaO2% (BldA) [Mass fraction] 98 % Mary Jo Thibodeaux Other [facility] Other 02-26-2023 09:45-0500 Systolic blood pressure 136 mm[Hg] Mary Jo Thibodeaux Other [facility] Other Encounters Encounter Date Encounter Type Care Provider Facility Start: 07-27-2023 ambulatory Elvie Greer Facilit y:[facility] Start: 07-19-2023 End: 07-20-2023 ambulatory Jamshid Sahu MD Facility:[facility] Start: 06-29-2023 End: 06-29-2023 ambulatory ELVIE PERCY Not Available Start: 05-27-2023 End: 05-27-2023 ambulatory TIEN MORALES Not Available Start: 05-18-2023 End: 05-18-2023 ambulatory ELVIE GREER Not Available Start: 04-22-2023 End: 04-22-2023 ambulatory DEEP HENRY Not Available Start: 04-22-2023 End: 04-22-2023 Office outpatient visit 10 minutes Deep Henry [employer] SPECIALIST Work Phone: [facility] Comment on above: Primary osteoarthrit is of right knee (Primary Dx); Right knee pain, unspecified chronicity Start: 04-14-2023 Telephone encounter Elvie darnell [employer] SPECIALIST Work Phone: [facility] Start: 04-13-2023 End: 04-13-2023 ambulatory ELVIE GREER Not Available Start: 04-01-2023 End: 04-02-2023 ambulatory DEEP HENRY Not Available Start: 02-26-2023 End: 02-26-2023 ambulatory Mary Jo Thibodeaux Other [employer] Other Start: 02-26-2023 Office outpatient vi sit 15 minutes Mary Jo Thibodeaux [facility] Start: 05-28-2022 End: 05-29-2022 ambulatory STAY CUTTER ELVIE GREER Facility:[facility] Start: 05-06-2022 End: 05-06-2022 ambulatory STAY CUTTER ELVIE GREER Facility:[facility] Start: 02-23-2022 End: 02-23-2022 ambulatory STAY CUTTER ELVIE GREER Facility:[facility] Plan of Treatment Date Care Activity Detail Author Start: 05-27-2023 End: 05-27-2023 Patient encounter procedure 05/27/2023 10:00 AM EDT Office Visit [facility] [address] [place] [address] Tien Morales DO [address] [place] [address] [facility] Start: 05-18-2023 End: 05-18-2023 Patient encounter procedure 05/18/2023 9:20 AM EDT Office Visit [facility] [address] [place] [address] Elvie Greer NP [address] [place] [address] [facility] Start: 04-22-2023 End: 04-22-2023 Patient encounter procedure 04/22/2023 10:15 AM EST Office Visit [facility] [address] [place] [id number] Deep Henry NP [address] [place], [place] [id number] [facility] Start: 11-18-2013 Screening for malignant neoplasm of cervix [facility] Start: 11-18-2004 Screening for malignant neoplasm of cervix Pap Smear [facility] Healthcare Payers Date Payer Category Payer Self-pay 2023 Unknown [id number] 1983 Unknown [id number] 2.16.84 [id number] 1983 Unknown [id number] 2.16.84 [id number] 1983 Unknown [id number] 2.16.84 [id number] 1983 Unknown [id number] 2.16.84 [id number] 1983 Unknown [id number] 2.16.84 [id number] 1983 Unknown [id number] 2.16.84 [id number] 1983 Unknown [id number] 2.16.84 [id number] 1983 Unknown [id number] 2.16.84 [id number] 1983 Unknown [id number] 2.16.84 [id number] 1983 Unknown [id number] 2.16.84 [id number] 1983 Unknown [id number] 2.16. [id number] 1959 Unknown [id number] Social History Date Type Detail Facility Start: 04-06-2023 End: 04-13-2023 Sex Assigned At [facility] Start: 04-01-2023 Tobacco smoking status NVIS Never smoked tobacco [facility] Work Phone: Start: 04-01-2023 Tobacco use and exposure Smokeless tobacco non-user [facility] Start: 04-13-2023 End: 04-22-2023 Alcohol intake Lifetime non-drinker (finding) [facility] Start: 04-06-2023 End: 04-13-2023 History of Social function [facility] Within the last year , have you been afraid of your partner or ex-partner? No [facility] Do you belong to any clubs or organizations such as scientologist groups, unions, fraternal or athletic groups, or [...] Oral montelukast (SINGULAIR) 10 mg, Oral, Nightly [place]-3 Fatty Acids (Fish Oil) 1000 MG capsule [...] develop for requiring urgent evaluation. 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 jeannie from [employer] calling about pt's traMADol (Ultram) 50 MG tablet. They need it verified. You wrote a quanity of 15 days but the directions say 1 tablet PO for 10 days documented in this encounter [facility] Healthcare Evaluation note 02-26-2023 Note Date & [...] PCP if no improvement in 2-3 days. [facility] Other Evaluation note Note Date & Type [...] surgical hx Hospitalization History 2 child births [facility] Other Summary Purpose Family History No Family [...] DATE CREATED AUTHOR AUTHOR'S ORGANIZ ATION 06/30/2023 [facility] EPIC DATE CREATED AUTHOR AUTHOR'S ORGANIZ ATION 07/22/2023 [facility] DATE CREATED AUTHOR AUTHOR'S ORGANIZ ATION 08/17/2023 [facility] REASON FOR VISIT (unrecogniz ed section and content) Reason Comments Follow-up Care Teams (unrecognized sec tion and content) [employer] 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 [facility]. provides no warranty or guarantee of the accuracy or completeness of information in this document.
[2023-08-29 15:43] VITALS: BP 154/97; PULSE 84; TEMP 37.3; O2SAT 99; BMI 52.5
--- NOTE | 2023-08-29 15:53 | ED_ITS ---
HPI - Skin/Abscess/Foreign Bdy General Chief complaint: Skin/Abscess/Foreign Body Stated complaint: Sunburn on legs Time Seen by Provider: 08/29/23 15:53 Source: patient Mode of arrival: walk-in History of Present Illness HPI narrative: This pain since he went pain and swelling primarily in her right leg. Initially she suggested it might be as burning but that was a week ago. The legs are getting more swollen and weeping and uncomfortable. She is not running over here at the hospital. She is not on any attics at this time. She has not any history of MRSA or bacterial infection or sepsis. She does not wear support stockings but she is supposed to. That she just cannot finding that fits. She is on her feet nearly 12 hours a day. She is not a diabetic. Related Data Home Medications ?Medication ?Instructions ?Recorded ?Confirmed bupropion HCl 150 mg 24 hr tablet, 150 mg PO DAILY 05/06/23 05/06/23 extended release (Wellbutrin XL) magnesium 200 mg tablet 400 mg PO DAILY 05/06/23 05/06/23 montelukast 10 mg tablet 10 mg PO DAILY 05/06/23 05/06/23 (Singulair) omega 0-gvt-gnj-fish oil 1,000 mg 1 cap PO DAILY 05/06/23 05/06/23 (120 mg-180 mg) capsule (Fish Oil) omeprazole 20 mg capsule,delayed 20 mg PO DAILY 05/06/23 05/06/23 release potassium 99 mg tablet 99 mg PO DAILY 05/06/23 05/06/23 ibuprofen 800 mg tablet 800 mg PO Q12H PRN pain 08/05/23 08/05/23 levothyroxine 25 mcg tablet 25 mcg PO DAILY 08/05/23 08/05/23 tramadol 50 mg tablet 50 mg PO DAILY PRN pain 08/05/23 08/05/23 Previous Rx's ?Medication ?Instructions ?Recorded tramadol 50 mg tablet 50 mg PO DAILY PRN pain #15 tabs 08/12/23 Allergies Allergy/AdvReac Type Severity Reaction Status Date / Time diphenhydramine Allergy Verified 05/06/23 13:14 [From Benadryl] latex Allergy Verified 05/06/23 13:14 PFSH PFS Medical History (Updated 08/29/23 @ 16:05 by Fito Walden MD) Osteoarthritis ?M19.90 - Unspecified osteoarthritis, unspecified site (ICD-10) Asthma ?J45.909 - Unspecified asthma, uncomplicated (ICD-10) Surgical History History of arthroscopic knee surgery ?Z98.890 - Other specified postprocedural states (ICD-10) Exam Narrative Exam Narrative: Patient is awake alert pleasant no apparent distress no shortness of breath. She has no history of DVT or phlebitis. She is actually never had vein evaluation and she has chronic venous insufficiency clinically speaking. Examination of her extremities show that she does have erythema warmth and clear weeping exudate from her right leg and a little bit less so from her left side. There is warmth over that right leg. She has good pulses distally. She does not have any respiratory distress. She does not have any hypotension or tachycardia. Constitutional Vital Signs, click to edit/add: Last Vital Signs Temp 99.1 F 08/29/23 15:43 Pulse 84 08/29/23 15:43 Resp 18 08/29/23 15:43 BP 154/97 H 08/29/23 15:43 Pulse Ox 99 08/29/23 15:43 O2 Del Method Room Air 08/29/23 15:43 Course Vital Signs Vital signs: Vital Signs Temperature 99.1 F 08/29/23 15:43 Pulse Rate 84 08/29/23 15:43 Respiratory Rate 18 08/29/23 15:43 Blood Pressure 154/97 H 08/29/23 15:43 Pulse Oximetry 99 08/29/23 15:43 Oxygen Delivery Method Room Air 08/29/23 15:43 Temperature 99.1 F 08/29/23 15:43 Pulse Rate 84 08/29/23 15:43 Respiratory Rate 18 08/29/23 15:43 Blood Pressure 154/97 H 08/29/23 15:43 Pulse Oximetry 99 08/29/23 15:43 Oxygen Delivery Method Room Air 08/29/23 15:43 MDM - Skin/Abscess/Foreign Bdy MDM Narrative Medical decision making narrative: Clinically this appears not to be a first or second-degree sunburn but rather cellulitis. I strongly suggested that she consider vein evaluation at our clinic. Custom fitted support stockings, will start her on antibiotics. I want her off work for 48 hours with these legs elevated at all times and she should follow-up with her primary care doctor soon as possible Discharge Plan Discharge Stand Alone Forms: Portal Instructions Chief Complaint: Skin/Abscess/Foreign Body Clinical Impression: Cellulitis of leg, right Patient Disposition: Home, Self-Care Time of Disposition Decision: 16:05 Prescriptions / Home Meds: No Action ibuprofen 800 mg tablet 800 mg PO Q12H PRN (Reason: pain) levothyroxine 25 mcg tablet 25 mcg PO DAILY tramadol 50 mg tablet 50 mg PO DAILY PRN (Reason: pain) tramadol 50 mg tablet 50 mg PO DAILY PRN (Reason: pain) Qty: 15 0RF potassium 99 mg tablet 99 mg PO DAILY omeprazole 20 mg capsule,delayed release(DR/EC) 20 mg PO DAILY magnesium 200 mg tablet 400 mg PO DAILY omega 9-lty-pft-fish oil [Fish Oil] 1,000 mg (120 mg-180 mg) capsule 1 cap PO DAILY bupropion HCl [Wellbutrin XL] 150 mg tablet extended release 24 hr 150 mg PO DAILY montelukast [Singulair] 10 mg tablet 10 mg PO DAILY Print Language: Georgian Additional Instructions: Off work 48 hours/elevate legs/Keflex/consider support stockings/follow-up with primary care doctor by midweek. Return if worse Referrals: Elvie Greer NP [Primary Care Provider] - 1 week
== END 2023-08-29 16:23 | disposition home or self-care (01) ==
PROVIDERS: Emergency Provider Emergency Medicine Emergency Medical Services; PCP Nurse Practitioner
DX: L03.115 Cellulitis of right lower limb (principal)
CPT/HCPCS: 99283

== ENCOUNTER 2023-11-04 09:14 | Outpatient (OUT) | payer OTHER, SELFPAY ==
--- OUTSIDE RECORDS SUMMARY | 2023-11-04 09:37 | XMS_ITS | CCD ---
Author Organization [facility] ion [facility] Care Team Providers Care Water Sander Name Role Phone GILL, QUARTZ CUTTER ELVIE Primary Care Unavailable ABEL, DR KRISTY Yarbrough Admitting Unavailable ABEL, DR KRISTY Yarbrough Consulting Unavailable ABEL, DR KRISTY Yarbrough Attending Unavailable CHAN RICHEY Consulting Unavailable AICHHOLZ, QUARTZ CUTTER ELVIE Primary Care Unavailable AICHHOLZ, QUARTZ CUTTER ELVIE Consulting Unavailable AICHHOLZ, QUARTZ CUTTER ELVIE Attending Unavailable AICHHOLZ, QUARTZ CUTTER ELVIE Admitting Unavailable AICHHOLZ, QUARTZ CUTTER ELVIE Primary Care Unavailable KARASIK ., DR FOFANA Consulting Unavailabl e KARASIK ., DR FOFANA Attending Unavailabl e KARASIK ., DR FOFANA Admitting Unavailabl e Mary Jo Thibodeaux Unavailable [place] IN STORE DEMONSTRATOR, Elvie Unavailable Chris Pelaez MD Primary Care Provider [phone] Adelina SAGASTUME, Jamshid Jha Attending Unavailable oRgelio Oviedo Attending Unavailab le Rogelio Oviedo Admitting Unavailab le Aichmicha Elvie Tuan Primary Care Unavailable DEEP HENRY Attending Unavailable DEEP HENRY Referring Unavailable GILL, ELVIE Attending Unavailable DEEP HENRY Attending Unavailable AICHHOLZ, ELVIE Attending Unavailable TIEN MORALES Attending Unavailable AICHHOLZ, ELVIE Attending Unavailable AICHHOLZ, ELVIE Attending Unavailable MARISOLHHOLZ, ELVIE Attending Unavailable DEEP HENRY Attending Unavailable CHAN RONDON Referring Unavailable CHAN RONDON Attending Unavailable CHAN RONDON Referring Unavailable Allergies Allergy Classification Reported Allergen(s) Allergy Type Date of Onset Reaction(s) Facility (1 source) diphenhydrAMINE Drug Allergy [facility] Repository (1 source) Latex Drug allergy (disorder) [facility]ository (1 source) diphenhydrAMINE Drug Allergy Unknown [facility] Other (1 source) Latex Propensity to adverse reactions Unknown [facility] Other (3 sources) diphenhydrAMINE Drug Allergy 08-09-19 Hives, Itching, Rash, Unknown [facility] (3 sources) Latex Propensity to adverse reactions 08-09-19 Hives, Itching, Rash, Unknown [facility] (3 sources) Prednisone Propensity to adverse reactions 04-01-19 [facility] (3 sources) Antihistamines, Diphenhydramine-Ty pe Propensity to adverse reactions 04-01-19 [facility] (1 source) diphenhydrAMINE Drug Allergy 02-27-20 [facility] Repository (1 source) Latex Drug allergy (disorder) 02-27-20 [facility] Repository Medications Current Medications Medication Drug Class(es) Dates Sig (Normalized) Sig (Original) 8 hr acetaminophen 650 mg extended release oral tablet (1 source) take 2 tablets by mouth every eight hours Acetaminophen ER 650 MG 2 tablets as needed Orally every 8 hrs Active [id number] 200 actuat albuterol 0.09 mg/actuat metered dose [...] 30 tablet 1 04/13/2023 05/13/2023 Active calcitriol 0.75279 mg oral capsule (3 sources) Vitamin D3 [...] 1 tablet Orally Once a day Active [employer] (Osteo Bi-Flex Adv Triple St) [...] bedtime 90 tablet 1 04/13/2023 07/12/2023 Active [place]-3 Fatty Acids (Fish Oil) 1000 MG capsule delayed-release (3 sources) [place]-3 Fatty Ac ids (Fish Oil) 1000 MG [...] 02-25-2022 Episodic Other aftercare (1 source) Other fdc (current) drug therapy; Translations: [OTH GROUP HOME CURRENT DRUG THERAPY] Onset: 02-25-2022 Episodic [...] (COVID-19) RNA LIANNE+probe Ql (Unsp spec) Positive [facility] Other COVID + FLU Quick Testing Negative [facility] Other CBC AUTO DIFFon 05-28-2022 BASO # 0.0 103/ul Normal 0.0-0.1 [facility] Comment on above: Performed By: #### C BC #### [facility] [address] [place] [address] Dr. Tracey Mccoy Basophils/100 WBC (Bld) 0.3 % Normal 0.2-2.0 [facility] Comment on above: Performed By: #### C BC #### [facility] [address] [address] [address] Tracey Mccoy EO # 0.2 103/ul Normal 0.0-0.7 [facility] Comment on above: Performed By: #### C BC #### [facility] [address] [place] [address] Dr. Tracey Mccoy Eosinophils/100 WBC (Bld) 1.7 % Normal 0.9-7.0 [facility] Comment on above: Performed By: #### C BC #### [facility] [address] [address] [address] Tracey Mccoy Erythrocyte distribution width (RBC) [Ratio] 12.4 % Normal 11.0-15.0 [facility] Comment on above: Performed By: #### C BC #### [facility] [address] [place] [address] Dr. Tracey Mccoy Hematocrit (Bld) [Volume fraction] 36.2 % Normal 36.0-48.0 [facility] Comment on above: Performed By: #### C BC #### [facility] [address] [address] [address] Tracey Mccoy Hemoglobin (Bld) [Mass/Vol] 12.2 g/dL Normal 12.0-16.0 [facility] Comment on above: Performed By: #### C BC #### [facility] [address] [address] [address] Tracey Mccoy IG # 0.05 10e3/ul Critically high 0.00-0.03 [facility] Comment on above: Performed By: #### C BC #### [facility] [address] [address] [address] Tracey Mccoy IG % 0.5 % Normal 0.0-0.5 [facility] Comment on above: Performed By: #### C BC #### [facility] [address] [address] [address] Tracey Mccoy LYMPH # 2.3 103/ul Normal 1.2-3.8 [facility] Comment on above: Performed By: #### C BC #### [facility] [address] [place] [address] Dr. Tracey Mccoy Lymphocytes/100 WBC (Bld) 25.6 % Normal 20.5-60.0 [facility] Comment on above: Performed By: #### C BC #### [facility] [address] [place] [address] Dr. Tracey Mccoy MANUAL DIFF REQ NO Normal [facility] Comment on above: Performed By: #### C BC #### [facility] [address] [address] [address] Tracey Mccoy MCH (RBC) [Entitic mass] 29.0 pg Normal 26.7-34.0 [facility] Comment on above: Performed By: #### C BC #### [facility] [address] [address] [address] Tracey Mccoy MCHC (RBC) [Mass/Vol] 33.7 g/dL Normal 29.9-35.2 [facility] Comment on above: Performed By: #### C BC #### [facility] [address] [address] [address] Tracey Mccoy MCV (RBC) [Entitic vol] 86.0 fL Normal 81.0-99.0 [facility] Comment on above: Performed By: #### C BC #### [facility] [address] [address] [address] Tracey Mccoy MONO # 0.7 103/ul Normal 0.3-0.8 [facility] Comment on above: Performed By: #### C BC #### [facility] [address] [place] [address] Dr. Tracey Mccoy Monocytes/100 WBC (Bld) 7.7 % Normal 1.7-12.0 [facility] Comment on above: Performed By: #### C BC #### [facility] [address] [place] [address] Dr. Tracey Mccoy NEUT # 5.9 103/ul Normal 1.4-6.5 [facility] Comment on above: Performed By: #### C BC #### [facility] [address] [place] [address] Dr. Tracey Mccoy Neutrophils/100 WBC (Bld) 64.2 % Normal 43.0-75.0 [facility] Comment on above: Performed By: #### C BC #### [facility] [address] [place] [address] Dr. Tracey Mccoy Platelet mean volume (Bld) [Entitic vol] 9.5 fL Normal 9.5-13.5 [facility] Comment on above: Performed By: #### C BC #### [facility] [address] [place] [address] Dr. Tracey Mccoy PLT 348 103/ul Normal 150-450 [facility] Comment on above: Performed By: #### C BC #### [facility] [address] [place] [address] Dr. Tracey Mccoy RBC 4.21 106/ul Normal 4.20-5.40 [facility] Comment on above: Performed By: #### C BC #### [facility] [address] [place] [address] Dr. Tracey Mccoy WBC 9.2 103/ul Normal 4.0-11.0 [facility] Comment on above: Performed By: #### C BC #### [facility] [address] [place] [address] Dr. Tracey Mccoy FERRITINon 05-28-2022 Ferritin [Mass/Vol] 15.0 ng/mL Normal 6.2-137.0 [facility] Comment on above: Performed By: #### F ERR #### [facility] [address] [place] [address] Dr. Tracey Mccoy MAGNESIUMon 05-28-2022 Magnesium [Mass/Vol] 1.7 mg/dL Critically low 1.8-2.4 [facility] Comment on above: Performed By: #### M G, CMP #### [facility] [address] [place] [address] Dr. Tracey Mccoy PROF 14(COMP METB)on 023 Albumin [Mass/Vol] 3.7 g/dL Normal 3.4-5.0 [facility] Comment on above: Performed By: #### M G, CMP #### [facility] [address] [place] [address] Dr. Tracey Mccoy Albumin/Globulin [Mass ratio] 1.0 {ratio} Normal [facility] Comment on above: Performed By: #### M G, CMP #### [facility] [address] [place] [address] Dr. Tracey Mccoy ALP [Catalytic activity/Vol] 89 U/L Normal 46-116 [facility] Comment on above: Performed By: #### M G, CMP #### [facility] [address] [place] [address] Dr. Tracey Mccoy ALT [Catalytic activity/Vol] 26 U/L Normal 14-59 [facility] Comment on above: Performed By: #### M G, CMP #### [facility] [address] [place] [address] Dr. Tracey Mccoy Anion gap [Moles/Vol] 13.2 mmol/L Normal [facility] Comment on above: Performed By: #### M G, CMP #### [facility] [address] [address] [address] Tracey Mccoy AST [Catalytic activity/Vol] 19 U/L Normal 15-37 [facility] Comment on above: Performed By: #### M G, CMP #### [facility] [address] [address] [address] Tracey Mccoy Bilirubin [Mass/Vol] 0.6 mg/dL Normal 0.2-1.0 [facility] Comment on above: Performed By: #### M G, CMP #### [facility] [address] [address] [address] Tracey Mccoy Calcium [Mass/Vol] 9.2 mg/dL Normal 8.5-10.1 [facility] Comment on above: Performed By: #### M G, CMP #### [facility] [address] [address] [address] Tracey Mccoy Chloride [Moles/Vol] 101 mmol/L Normal 98-107 [facility] Comment on above: Performed By: #### M G, CMP #### [facility] [address] [address] [address] Tracey Mccoy CO2 [Moles/Vol] 26.9 mmol/L Normal 21.0-32.0 [facility] Comment on above: Performed By: #### M G, CMP #### [facility] [address] [address] [address] Tracey Mccoy Creatinine [Mass/Vol] 0.47 mg/dL Critically low 0.55-1.02 [facility] Comment on above: Performed By: #### M G, CMP #### [facility] [address] [address] [address] Tracey Mccoy EGFR-AF CROATIAN >60 Normal >=60 [facility] Comment on above: Performed By: #### M G, CMP #### [facility] [address] [address] [address] Tracey Mccoy EGFR-NON AF CROATIAN >60 Normal >=60 [facility] Comment on above: Performed By: #### M G, CMP #### [facility] [address] [address] [address] Tracey Mccoy Globulin (S) [Mass/Vol] 3.6 g/dL Normal [facility] Comment on above: Performed By: #### M G, CMP #### [facility] [address] [address] [address] Tracey Mccoy Glucose [Mass/Vol] 88 mg/dL Normal 74-106 [facility] Comment on above: Performed By: #### M G, CMP #### [facility] [address] [address] [address] Tracey Mccoy Potassium [Moles/Vol] 4.1 mmol/L Normal 3.5-5.1 [facility] Comment on above: Performed By: #### M G, CMP #### [facility] [address] [place] [address] Dr. Tracey Mccoy Protein [Mass/Vol] 7.3 g/dL Normal 6.4-8.2 [facility] Comment on above: Performed By: #### M G, CMP #### [facility] [address] [address] [address] Tracey Mccoy Sodium [Moles/Vol] 137 mmol/L Normal 136-145 [facility] Comment on above: Performed By: #### M G, CMP #### [facility] [address] [address] [address] Tracey Mccoy Urea nitrogen [Mass/Vol] 5.0 mg/dL Critically low 7.0-18.0 [facility] Comment on above: Performed By: #### M G, CMP #### [facility] [address] [place] [address] Dr. Tracey Mccoy Urea nitrogen/Creatinin e [Mass ratio] 10.6 mg/mg Normal [facility] Comment on above: Performed By: #### M G, CMP #### [facility] [address] [address] [address] Tracey Mccoy PAP ACOG PANEL 2: 30 to 65on 05-14-2022 . . Normal [facility] Comment on above: Result Comment: Perf ormed at: WB Performed By: #### [id number] #### [facility] [address] [address] [address] Tracey Mccoy Age Gdln ACOG Testing 30-65 Normal [facility] Comment on above: Performed By: #### [id number] #### [facility] [address] [address] [address] Tracey Mccoy DIAGNOSIS: Comment Normal [facility] Comment on above: Result Comment: NEGA TIVE FOR INTRAEPITHELIAL LESION OR MALIGNANCY. Performed at: WB Performed By: #### [id number] #### [facility] [address] [address] [address] Tracey Mccoy HPV Aptima Negative Normal Negative [facility] Comment on above: Result Comment: This nucleic acid amplification test detects fourteen high-risk HPV types (16,18,31,33,35,39,45,51,52,56,58,59,66,68) without differentiation. Performed at: =G Performed By: #### [id number] #### [facility] [address] [address] [address] Tracey Mccoy HPV Genotype Reflex Comment Normal [facility] Comment on above: Result Comment: Crit eria not met, HPV Genotype not performed. Performed at: WB Performed By: #### [id number] #### [facility] [address] [place] [address] Dr. Tracey Mccoy Methodology: Comment Normal [facility] Comment on above: Result Comment: This liquid based ThinPrep(R) pap test was screened with the use of an image guided system. Performed at: WB Performed By: #### [id number] #### [facility] [address] [place] [address] Dr. Tracey Mccoy Note: Comment Normal [facility] Comment on above: Result Comment: The Pap smear is a screening test designed to aid in the detection of premalignant and malignant conditions of the uterine cervix. It is not a diagnostic procedure and should not be used as the sole means of detecting cervical cancer. Both false-positive and false-negative reports do occur. . Performed at: WB Performed By: #### [id number] #### [facility] [address] [place] [address] Dr. Tracey Mccoy Performed by: Comment Normal [facility] Comment on above: Result Comment: Daysi Cheema, Knifeman Performed at: WB Performed By: #### [id number] #### [facility] [address] [place] [address] Dr. Tracey Mccoy Specimen adequacy: Comment Normal [facility] Comment on above: Result Comment: Sati sfactory for evaluation. Endocervical and/or squamous metaplastic cells (endocervical component) are present. Performed at: WB Performed By: #### [id number] #### [facility] [address] [place] [address] Dr. Tracey Mccoy BNPon 02-23-2022 Natriuretic peptide B (Bld) [Mass/Vol] 37.0 pg/mL Normal <=450.0 [facility] Comment on above: Performed By: #### B IN STORE DEMONSTRATOR #### [facility] [address] [place] [address] Dr. Tracey Mccoy CBC AUTO DIFFon 02-23-2022 BASO # 0.0 103/ul Normal 0.0-0.1 [facility] Comment on above: Performed By: #### C BC #### [facility] [address] [place] [address] Dr. Tracey Mccoy Basophils/100 WBC (Bld) 0.3 % Normal 0.2-2.0 [facility] Comment on above: Performed By: #### C BC #### [facility] [address] [place] [address] Dr. Tracey Mccoy EO # 0.0 103/ul Normal 0.0-0.7 [facility] Comment on above: Performed By: #### C BC #### [facility] [address] [place] [address] Dr. Tracey Mccoy Eosinophils/100 WBC (Bld) 0.3 % Critically low 0.9-7.0 [facility] Comment on above: Performed By: #### C BC #### [facility] [address] [place] [address] Dr. Tracey Mccoy Erythrocyte distribution width (RBC) [Ratio] 12.9 % Normal 11.0-15.0 [facility] Comment on above: Performed By: #### C BC #### [facility] [address] [place] [address] Dr. Tracey Mccoy Hematocrit (Bld) [Volume fraction] 37.5 % Normal 36.0-48.0 [facility] Comment on above: Performed By: #### C BC #### [facility] [address] [place] [address] Dr. Tracey Mccoy Hemoglobin (Bld) [Mass/Vol] 12.1 g/dL Normal 12.0-16.0 [facility] Comment on above: Performed By: #### C BC #### [facility] [address] [place] [address] Dr. Tracey Mccoy IG # 0.02 10e3/ul Normal 0.00-0.03 [facility] Comment on above: Performed By: #### C BC #### [facility] [address] [place] [address] Dr. Tracey Mccoy IG % 0.3 % Normal 0.0-0.5 [facility] Comment on above: Performed By: #### C BC #### [facility] [address] [place] [address] Dr. Tracey Mccoy LYMPH # 2.0 103/ul Normal 1.2-3.8 [facility] Comment on above: Performed By: #### C BC #### [facility] [address] [place] [address] Dr. Tracey Mccoy Lymphocytes/100 WBC (Bld) 28.4 % Normal 20.5-60.0 [facility] Comment on above: Performed By: #### C BC #### [facility] [address] [place] [address] Dr. Tracey Mccoy MANUAL DIFF REQ NO Normal [facility] Comment on above: Performed By: #### C BC #### [facility] [address] [place] [address] Dr. Tracey Mccoy MCH (RBC) [Entitic mass] 28.5 pg Normal 26.7-34.0 [facility] Comment on above: Performed By: #### C BC #### [facility] [address] [place] [address] Dr. Tracey Mccoy MCHC (RBC) [Mass/Vol] 32.3 g/dL Normal 29.9-35.2 [facility] Comment on above: Performed By: #### C BC #### [facility] [address] [place] [address] Dr. Tracey Mccoy MCV (RBC) [Entitic vol] 88.4 fL Normal 81.0-99.0 [facility] Comment on above: Performed By: #### C BC #### [facility] [address] [place] [address] Dr. Tracey Mccoy MONO # 0.5 103/ul Normal 0.3-0.8 [facility] Comment on above: Performed By: #### C BC #### [facility] [address] [place] [address] Dr. Tracey Mccoy Monocytes/100 WBC (Bld) 7.7 % Normal 1.7-12.0 [facility] Comment on above: Performed By: #### C BC #### [facility] [address] [place] [address] Dr. Tracey Mccoy NEUT # 4.4 103/ul Normal 1.4-6.5 [facility] Comment on above: Performed By: #### C BC #### [facility] [address] [place] [address] Dr. Tracey Mccoy Neutrophils/100 WBC (Bld) 63.0 % Normal 43.0-75.0 [facility] Comment on above: Performed By: #### C BC #### [facility] [address] [place] [address] Dr. Tracey cMcoy Platelet mean volume (Bld) [Entitic vol] 9.2 fL Critically low 9.5-13.5 [facility] Comment on above: Performed By: #### C BC #### [facility] [address] [place] [address] Dr. Tracey Mccoy PLT 278 103/ul Normal 150-450 [facility] Comment on above: Performed By: #### C BC #### [facility] [address] [place] [address] Dr. Tracey Mccoy RBC 4.24 106/ul Normal 4.20-5.40 [facility] Comment on above: Performed By: #### C BC #### [facility] [address] [place] [address] Dr. Tracey Mccoy WBC 6.9 103/ul Normal 4.0-11.0 [facility] Comment on above: Performed By: #### C BC #### [facility] [address] [place] [address] Dr. Tracey Mccoy PROF 14(COMP METB)on 022 Albumin [Mass/Vol] 3.7 g/dL Normal 3.4-5.0 [facility] Comment on above: Performed By: #### C JASIEL HSTROPN #### [facility] [address] [place] [address] Dr. Tracey Mccoy Albumin/Globulin [Mass ratio] 0.9 {ratio} Normal [facility] Comment on above: Performed By: #### C JASIEL HSTROPN #### [facility] [address] [place] [address] Dr. Tracey Mccoy ALP [Catalytic activity/Vol] 103 U/L Normal 46-116 [facility] Comment on above: Performed By: #### C JASIEL HSTROPN #### [facility] [address] [place] [address] Dr. Tracey Mccoy ALT [Catalytic activity/Vol] 67 U/L Critically high 14-59 [facility] Comment on above: Performed By: #### C JASIEL HSTROPN #### [facility] [address] [place] [address] Dr. Tracey Mccoy Anion gap [Moles/Vol] 9.6 mmol/L Normal [facility] Comment on above: Performed By: #### C JASIEL HSTROPN #### [facility] [address] [place] [address] Dr. Tracey Mccoy AST [Catalytic activity/Vol] 100 U/L Critically high 15-37 [facility] Comment on above: Performed By: #### C MP, HSTROPN #### [facility] [address] [address] [address] rTacey Mccoy Bilirubin [Mass/Vol] 0.4 mg/dL Normal 0.2-1.0 [facility] Comment on above: Performed By: #### C MP, HSTROPN #### [facility] [address] [address] [address] Tracey Mccoy Calcium [Mass/Vol] 8.8 mg/dL Normal 8.5-10.1 [facility] Comment on above: Performed By: #### C MP, HSTROPN #### [facility] [address] [address] [address] Tracey Mccoy Chloride [Moles/Vol] 104 mmol/L Normal 98-107 [facility] Comment on above: Performed By: #### C MP, HSTROPN #### [facility] [address] [address] [address] Tracey Mccoy CO2 [Moles/Vol] 28.5 mmol/L Normal 21.0-32.0 [facility] Comment on above: Performed By: #### C MP, HSTROPN #### [facility] [address] [place] [address] Dr. Tracey Mccoy Creatinine [Mass/Vol] 0.71 mg/dL Normal 0.55-1.02 [facility] Comment on above: Performed By: #### C MP, HSTROPN #### [facility] [address] [address] [address] Tracey Mccoy EGFR-AF CROATIAN >60 Normal >=60 [facility] Comment on above: Performed By: #### C MP, HSTROPN #### [facility] [address] [address] [address] Tracey Mccoy EGFR-NON AF CROATIAN >60 Normal >=60 [facility] Comment on above: Performed By: #### C MP, HSTROPN #### [facility] [address] [address] [address] Tracey Mccoy Globulin (S) [Mass/Vol] 3.9 g/dL Normal [facility] Comment on above: Performed By: #### C MP, HSTROPN #### [facility] [address] [address] [address] Tracey Mccoy Glucose [Mass/Vol] 113 mg/dL Critically high 74-106 [facility] Comment on above: Performed By: #### C MP, HSTROPN #### [facility] [address] [address] [address] Tracey Mccoy Potassium [Moles/Vol] 3.1 mmol/L Critically low 3.5-5.1 [facility] Comment on above: Performed By: #### C MP, HSTROPN #### [facility] [address] [place] [address] Dr. Tracey Mccoy Protein [Mass/Vol] 7.6 g/dL Normal 6.4-8.2 [facility] Comment on above: Performed By: #### C MP, HSTROPN #### [facility] [address] [address] [address] Tracey Mccoy Sodium [Moles/Vol] 139 mmol/L Normal 136-145 [facility] Comment on above: Performed By: #### C MP, HSTROPN #### [facility] [address] [address] [address] Tracey Mccoy Urea nitrogen [Mass/Vol] 9.0 mg/dL Normal 7.0-18.0 [facility] Comment on above: Performed By: #### C MP, HSTROPN #### [facility] [address] [address] [address] Tracey Mccoy Urea nitrogen/Creatinin e [Mass ratio] 12.7 mg/mg Normal [facility] Comment on above: Performed By: #### C MP, HSTROPN #### [facility] [address] [address] [address] Tracey Mccoy TROPONIN, HIGH SENSITIVITYon 02-23-2022 HSTROP 5.8 pg/mL Normal 4.0-51.3 [facility] Comment on above: Result Comment: CUT- OFF POINTS HAVE BEEN ESTABLISHED BASED ON THE FOURTH UNIVERSAL DEFINITIONS OF MYOCARDIAL INFARCTION. THE UPPER REFERENCE LIMIT (URL) OF TROPONIN, DEFINED THE 99TH PERCENTILE OF cTnI DISTRIBUTION IN A REFERENCE POPULATION, HAS BEEN CONFIRMED THE DECISION THRESHOLD FOR [place] DIAGNOSIS. Performed By: #### C MP, HSTROPN #### [facility] [address] [place], [place] [address] Dr. Tracey Mccoy XR CHEST 1 Von [...] by: CHAN RICHEY Date: 2022-02-23 03:04 Normal [facility] Vital Signs Date Time Vital Sign Value Performing Clinician Facility 02-26-2023 09:45-0500 Body height 157.48 cm Mary Jo Thibodeaux Other [facility] Other 02-26-2023 09:45-0500 Body mass index (BMI) [Ratio] 57.13 kg/m2 Mary Jo Thibodeaux Other [facility] Other 02-26-2023 09:45-0500 Body temperature 97.2 [degF] Mary Jo Thibodeaux Other [facility] Other 02-26-2023 09:45-0500 Body weight 141.7 kg Mary Jo Thibodeaux Other [facility] Other 02-26-2023 09:45-0500 Diastolic blood pressure 86 mm[Hg] Mary Jo Thibodeaux Other [facility] Other 02-26-2023 09:45-0500 Respiratory rate 18 /min Mary Jo Chunmond Other [facility] Other 02-26-2023 09:45-0500 SaO2% (BldA) [Mass fraction] 98 % Mary Jo Chunmond Other [facility] Other 02-26-2023 09:45-0500 Systolic blood pressure 136 mm[Hg] Mary Jo Thibodeaux Other [facility] Other Encounters Encounter Date Encounter Type Care Provider Facility Start: 10-21-2023 End: 10-21-2023 ambulatory CHAN RONDON Not Available Start: 10-05-2023 End: 10-05-2023 ambulatory DEEP HENRY Not Available Start: 09-30-2023 End: 09-30-2023 ambulatory ELVIE AICHHOLZ Not Available Start: 08-31-2023 End: 08-31-2023 ambulatory ELVIE AICHHOLZ Not Available Start: 07-27-2023 ambulatory Rogelio Avendano acility:[facility] Start: 07-19-2023 End: 07-20-2023 ambulatory Jamshid Sahu MD Facility: [facility] Start: 06-29-2023 End: 06-29-2023 ambulatory ELVIE AICHHOLZ Not Available Start: 05-27-2023 End: 05-27-2023 ambulatory TIEN MORALES Not Available Start: 05-18-2023 End: 05-18-2023 ambulatory ELVIE AICHHOLZ Not Available Start: 04-22-2023 End: 04-22-2023 Office outpatient visit 10 minutes Deep Henry [employer] Work Phone: [facility] Comment on above: Primary osteoarthrit is of right knee (Primary Dx); Right knee pain, unspecified chronicity Start: 04-22-2023 End: 04-22-2023 ambulatory DEEP HENRY Not Available Start: 04-14-2023 Telephone encounter Elvie Mat darnell [employer] Work Phone: [facility] Start: 04-13-2023 End: 04-13-2023 ambulatory ELVIE GILL Not Available Start: 04-01-2023 End: 04-01-2023 ambulatory DEEP HENRY Not Available Start: 02-26-2023 End: 02-26-2023 ambulatory Mary Jo Thibodeaux Other [facility] Other Start: 02-26-2023 Office outpatient vi sit 15 minutes Mary Jo Thibodeaux [facility] Start: 05-28-2022 End: 05-29-2022 ambulatory QUARTZ CUTTER ELVIE MAGDALENAKERRIEZ Facility:[facility] Start: 05-06-2022 End: 05-06-2022 ambulatory QUARTZ CUTTER ELVIE MARISOLMaryHOLZ Facility:[facility] Start: 02-23-2022 End: 02-23-2022 ambulatory QUARTZ CUTTER ELVIE AICMaryHOLZ Facility:[facility] Plan of Treatment Date Care Activity Detail Author Start: 05-27-2023 End: 05-27-2023 Patient encounter procedure 05/27/2023 10:00 AM EDT Office Visit [facility] [address] [place] [address] Tien Morales DO [address] [place] [address] [facility] Start: 05-18-2023 End: 05-18-2023 Patient encounter procedure 05/18/2023 9:20 AM EDT Office Visit [facility] [address] [place] [phone] Elvie Greer NP [address] [place] [address] [facility] Start: 04-22-2023 End: 04-22-2023 Patient encounter procedure 04/22/2023 10:15 AM EST Office Visit [facility] [address] [place] [phone] Deep Henry NP [address] [place] [address] [facility] Start: 11-18-2013 Screening for malignant neoplasm of cervix [facility] Start: 11-18-2004 Screening for malignant neoplasm of cervix Pap Smear [facility] Payers Date Payer Category Payer Self-pay 2023 Unknown [id number] 1985 Unknown [id number] 2.16.84 [id number] 1983 Unknown [id number] 2.16.84 0.1.537858.3.579.2.593 1983 Unknown [id number] 2.16.84 0.1.754284.3.579.2.593 1983 Unknown [id number] 2.16. 840.1.613381.3.579.2.196 1983 Unknown [id number] 2.16.84 0.1.684414.3.579.2.1259 1983 Unknown [id number] 2.16.84 0.1.853505.3.579.2.1259 1983 Unknown [id number] 2.16.84 0.1.168414.3.579.2.1259 1983 Unknown [id number] 2.16.84 0.1.190754.3.579.2.1259 1983 Unknown [id number] 2.16.84 0.1.151583.3.579.2.1259 1983 Unknown [id number] 2.16.84 0.1.213098.3.579.2.9 1983 Unknown [id number] 2.16.84 0.1.466795.3.579.2.9 1983 Unknown [id number] 2.16.84 0.1.758145.3.579.2.1258 1983 Unknown [id number] 2.16.84 0.1.694679.3.579.2.1258 1983 Unknown [id number] 2.16.84 0.1.061183.3.579.2.1258 1983 Unknown [id number] 2.16.84 0.1.550518.3.579.2.9 1983 Unknown [id number] 2.16.84 0.1.775693.3.579.2.1259 1959 Unknown [id number] Social History Date Type Detail Facility Start: 04-06-2023 End: 04-13-2023 Sex Assigned At [facility] Start: 04-01-2023 Tobacco smoking status [facility] Never smoked tobacco [facility] Work Phone: [...] to any clubs or organizations such as religious groups, unions, fraternal or athletic groups, or [...] time - these days [OSQ] Very much [facility] (I/We) worried wheth er (my/our) food would run out before (I/we) got money to buy more. DK or Refused [facility] Start: 1985 Sex Assigned At Not on file [facility] Start: 03-31-2023 Gender identity Identifies as female gender (finding) [facility] History of Present illness Narrative [...] Oral montelukast (SINGULAIR) 10 mg, Oral, Nightly [place]-3 Fatty Acids (Fish Oil) 1000 MG capsule [...] develop for requiring urgent evaluation. 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 jeannie from [employer] calling about pt's traMADol (Ultram) 50 MG tablet. They need it verified. You wrote a quanity of 15 days but the directions say 1 tablet PO for 10 days documented in this encounter [facility] Evaluation note 02-26-2023 Note Date & [...] PCP if no improvement in 2-3 days. [facility] Other Evaluation note Note Date & Type [...] surgical hx Hospitalization History 2 child births [facility] Other Summary Purpose Family History No Family History Records FoundNo Family History Records FoundNo Family History Records FoundNo Family History Records Found Advance Directives No Advanced Directives Records FoundNo Advanced Directives Records FoundNo Advanced Directives Records FoundNo Advanced Directives Records Found Additional Source Comments INFORMATION SOURCE (unrecogn ized section and content) DATE CREATED AUTHOR 06/01/2022 [facility] DATE CREATED AUTHOR AUTHOR'S ORGANIZ ATION 07/22/2023 [facility] DATE CREATED AUTHOR AUTHOR'S ORGANIZ ATION 09/28/2023 [facility] DATE CREATED AUTHOR AUTHOR'S ORGANIZ ATION 10/23/[address] [facility] d[facility] Specialists EPIC REASON FOR VISIT (unrecogniz ed section and content) Reason Comments Follow-up Care Teams (unrecognized sec tion and content) Water Sander Relationship Specialty Start Date End Date Chris Pelaez MD [address] [place] [phone] PCP - General Family Medicine 04/01/23 Elvie Greer NP [address] [place] [phone] Nurse Practitioner Family Medicine 04/01/23 Water Sander Relationship Specialty Start Date End Date Chris Pelaez MD [address] [place] [phone] PCP - General Family Medicine 04/01/23 Elvie Greer NP [address] [place] [phone] Nurse Practitioner Family Medicine 04/01/23 FOR RECORDS [...] BE BASED ON THE PRIMARY CLINICAL RECORDS. [employer] provides no warranty or guarantee of the accuracy or completeness of information in this document.
--- NOTE | 2023-11-04 09:40 | P.CN_ITS ---
Consult Note: HPI Data of Consult Patient: known to practice within the last 3 years Requesting Physician: Rylie Wells NP Primary Care Provider: Elvie Greer NP Consult Narrative Reason for consult: right knee pain Narrative: Tereza Navarro a pleasant 37 year old female presents for evaluation and management of chronic right knee pain. Has had an arthroscopy and right medial meniscectomy in the past. Patient had right knee injection with Dr Engle office with no relief. Patient was referred here for consideration of right gen icular nerve block and RFA. At this time the patients current insurance will not cover genicular RFAs. Patient has failed to benefit from PT in the past and recently completed greater than 6 weeks without benefit, she found benefit to water therapy while she was in the pool. Patient is not a surgical candidate at this time, with her age and her current BMI >50. Patient finds mild benefit to ibuprofen, tylenol, tramadol, and CBD/hemp balm in the past however she has stopped and is now utilizing celebrex through orthopedics. Patient following with Dr Pimentel and working towards weight loss for surgical intervention. cc:: CC: Rylie Wells NP Review of Systems ROS Status of ROS 10 or more systems reviewed and unremark able except as noted in history and below Musculoskeletal Reports: joint pain PFSH PFSH Medical History (Updated 08/29/23 @ 16:05 by Fito Walden MD) Osteoarthritis ?M19.90 - Unspecified osteoarthritis, unspecified site (ICD-10) Asthma ?J45.909 - Unspecified asthma, uncomplicated (ICD-10) Surgical History History of arthroscopic knee surgery ?Z98.890 - Other specified postprocedural states (ICD-10) Meds Home Medications and Allergies Home Medications ?Medication ?Instructions ?Recorded ?Confirmed ?Type bupropion HCl 150 mg 24 hr tablet, 150 mg PO DAILY 05/06/23 05/06/23 History extended release (Wellbutrin XL) magnesium 200 mg tablet 400 mg PO DAILY 05/06/23 05/06/23 History montelukast 10 mg tablet 10 mg PO DAILY 05/06/23 05/06/23 History (Singulair) omega 0-leo-ybi-fish oil 1,000 mg 1 cap PO DAILY 05/06/23 05/06/23 History (120 mg-180 mg) capsule (Fish Oil) omeprazole 20 mg capsule,delayed 20 mg PO DAILY 05/06/23 05/06/23 History release potassium 99 mg tablet 99 mg PO DAILY 05/06/23 05/06/23 History ibuprofen 800 mg tablet 800 mg PO Q12H PRN pain 08/05/23 08/05/23 History levothyroxine 25 mcg tablet 25 mcg PO DAILY 08/05/23 08/05/23 History tramadol 50 mg tablet 50 mg PO DAILY PRN pain 08/05/23 08/05/23 History tramadol 50 mg tablet 50 mg PO DAILY PRN pain #15 tabs 08/12/23 Rx tramadol 50 mg tablet 50 mg PO DAILY PRN pain #15 tabs 09/24/23 Rx Allergies Allergy/AdvReac Type Severity Reaction Status Date / Time diphenhydramine Allergy Verified 05/06/23 13:14 [From Benadryl] latex Allergy Verified 05/06/23 13:14 Exam Narrative Exam Narrative: Psych-alert and oriented x 3.? Attentive and appropriate, constitutionally normal, displays normal mood and affect per situation.? There are no obvious deficits in memory, reasoning, or intellect. Extremities-lower extremities are warm with minimal edema and palpable pulses. Knee-examination of the right knee reveals tenderness to palpation over the superior, inferior, lateral, and medial aspect of the knee.? Some swelling is noted without erythema. Pain is elicited with flexion and extension of the knee both actively and passively.? Some grinding is noted with these motions.? There is no notable ligamental laxity or instability.? Coordination remains intact.? Gait remains antalgic. Constitutional Documenting provider has reviewed patient's vital signs: yes Common normals: no apparent distress, oriented x3, healthy appearing, alert and well nourished General appearance: cooperative [facility] Common normals: normocephalic, hearing grossly normal bilaterally and moist oral mucous membranes Head and scalp: normocephalic Eye Common normals: PERRL Pupil: PERRL Neck & C-Spine Common normals: full ROM General: normal visual inspection Chest Common normals: inspection of chest normal Respiratory Common normals: normal respiratory effort, no retractions and no use of accessory muscles Neuro Common normals: oriented x3, CN's II-XII intact bilaterally, moves all extremities, no focal motor deficits, no sensory deficits noted and deep tendon reflexes 2+ bilaterally Sensorium/orientation: alert Motor exam: strength 5/5 throughout and no movement abnormalities noted Psych Common normals: mental status grossly normal, thought process normal, cooperative, affect normal, speech normal and activity/motor behavior normal Speech: normal speech Thought process: normal thought process Results Additional Findings Additional findings: If on a controlled substance or opioids, I have checked an [place] report on this patient and there are no aberrancies noted in the prescribing history.??If on a controlled substance or opioid a drug screen was completed and reviewed within the last year, and if there has not been a drug screen completed we ordered one today to monitor higher risk, state monitored pain medication use. As part of providing excellent, safe, comprehensive care, the following was completed at our patient's visit: 1. A medication reconciliation and review to ensure accurate knowledge of current/active medications, including asking our patients to inform us about any cybg-nuh-iyrjerw medications or herbal remedies/nutritional supplem ents/alternative remedies. 2. A review to specifically ensure our patients have had annual screening for screening for depression, screening for tobacco use, and screening for unhealthy alcohol use. For concerning screenings had a discussion with the patient, provided patient education, and recommended follow-up with primary care provider when appropriate. If patient noted with a risk of falling, they received education on strength, gait, and balance training to prevent future risk of falling. Assessment and Plan Assessment and Plan (1) Osteoarthritis of right knee: Qualifiers: Osteoarthritis type: primary Qualified Code(s): M17.11 - Unilateral primary osteoarthritis, right knee (2) Right knee pain: Qualifiers: Chronicity: chronic Qualified Code(s): M25.561 - Pain in right knee; G89.29 - Other chronic pain Plan aquatherapy discussed and ordered for right knee pain secondary to OA continue f/u with orthopedics and PCP continue medications through orthopedics f/u PRN
== END 2023-11-04 09:15 | disposition home or self-care (01) ==
LOC: PM 09:15
PROVIDERS: PCP Nurse Practitioner; Visit Provider Nurse Practitioner
DX: M17.11 Unilateral primary osteoarthritis, right knee (principal); M25.561 Pain in right knee
CPT/HCPCS: G0463

== ENCOUNTER 2023-11-09 09:54 | Outpatient (OUT) | payer OTHER, SELFPAY ==
[2023-11-09 11:23] LABS: Thyroid Stimulating Hormone 3.894 uIU/mL (0.358-3.740)
[2023-11-09 11:26] LABS: Free T4 0.91 ng/dL (0.76-1.46)
== END 2023-11-09 09:55 | disposition home or self-care (01) ==
LOC: LAB 09:57
PROVIDERS: PCP Nurse Practitioner; Visit Provider Nurse Practitioner
DX: E06.3 Autoimmune thyroiditis (principal)
CPT/HCPCS: 36415; 84439; 84443

== ENCOUNTER 2024-01-20 13:39 | Outpatient (OUT) | payer OTHER, SELFPAY ==
[2024-01-20 15:13] LABS: Free T4 0.81 ng/dL (0.76-1.46)
[2024-01-20 15:17] LABS: Thyroid Stimulating Hormone 3.486 uIU/mL (0.358-3.740)
== END 2024-01-20 13:40 | disposition home or self-care (01) ==
LOC: LAB 13:41
PROVIDERS: PCP Nurse Practitioner; Visit Provider Nurse Practitioner
DX: E06.3 Autoimmune thyroiditis (principal)
CPT/HCPCS: 36415; 84439; 84443

== ENCOUNTER 2024-04-18 10:02 | Outpatient (OUT) | payer OTHER, SELFPAY ==
--- NOTE | 2024-04-18 10:05 | MM_ITS ---
Patient Name: WILMER PENG MR#: [id number] : 1985 Exam Date: 04/18/2024 Ordering Doctor: DR TIEN ARMSTRONG . RADIOLOGY REPORT PROCEDURE: MM TOMOSYNTHESIS SCREENING BI COMPARISON: [facility] MAMM DIAGNOSTIC 3D ARELY CAD, 06/12/2020. INDICATIONS: Screening Calculator Name NCI Breast Cancer Risk Assessment Tool 5 Year Breast Cancer Risk Not Reported. Lifetime Breast Cancer Risk Not Reported. Personal Breast Cancer No Personal Ovarian Cancer No Treatments None Family Cancers None LOCATION: [facility] BREAST COMPOSITION: The breasts are extremely dense, which lowers the sensitivity of mammography. FINDINGS: DIAGNOSTIC CATEGORY 2--BENIGN FINDING. NO CHANGE FROM COMPARISON. Scattered benign-appearing calcifications are present. Scattered benign-appearing lymph nodes are present. RIGHT BREAST: No significant suspicious finding. LEFT BREAST: No significant suspicious finding. RECOMMENDATIONS: ROUTINE MAMMOGRAM AND CLINICAL EVALUATION IN 12 MONTHS. PLEASE NOTE: A NORMAL MAMMOGRAM DOES NOT EXCLUDE THE POSSIBILITY OF BREAST CANCER. A CLINICALLY SUSPICIOUS PALPABLE LUMP SHOULD BE BIOPSIED. Dictated by: Donnie Addison MD on 04/18/2024 at 11:32 Approved by: Donnie Addison MD on 04/18/2024 at 11:34
--- OUTSIDE RECORDS SUMMARY | 2024-04-18 10:16 | XMS_ITS | CCD ---
Author Organization [facility] Care Team Providers Care Supervisor Phosphorus Processing Name Role Phone PERCY, KEYA ELVIE Primary Care Unavailable ABEL, DR KRISTY Yarbrough Admitting Unavailable ABEL, DR KRISTY Yarbrough Consulting Unavailable ABEL, DR KRISTY Yarbrough Attending Unavailable CHAN RICEHY Consulting Unavailable AICHHOLZ, LEAD RADIOLOGIC TECHNOLOGIST ELVIE Primary Care Unavailable AICHHOLZ, LEAD RADIOLOGIC TECHNOLOGIST ELVIE Consulting Unavailable AICHHOLZ, LEAD RADIOLOGIC TECHNOLOGIST ELVIE Attending Unavailable AICHHOLZ, LEAD RADIOLOGIC TECHNOLOGIST ELVIE Admitting Unavailable AICHHOLZ, LEAD RADIOLOGIC TECHNOLOGIST ELVIE Primary Care Unavailable KARASIK ., DR FOFANA Consulting Unavailabl e BO ., DR FOFANA Attending Unavailabl e BO ., DR FOFANA Admitting Unavailabl e Mary Jo Thibodeaux Unavailable Percy [employer] TUTOR, Elvie Unavailable Chris Pelaez MD Primary Care Provider Jamshid Sahu MD Attending Unavailable Elvie Greer Primary Care Provider [phone] MD Ghassan Ramos Attending Provider Ghassan Ramos Admitting Unavailable Ghassan Ramos Attending Unavailable Elvie Greer Primary Care Unavailable Elvie Greer Primary Care Unavailable Rogelio Oviedo Admitting Unavailab Rogelio Tariq Attending Unavailab le Percy [employer]UAGE TUTOR, Elvie Unavailable ELVIE GREER Primary Care Physician [phone] Chan Khan Admitting Unavailable Khan, Chan T Attending Unavailable Khan, Chan T Referring Unavailable Khan, Chan T Referring Unavailable Khan, Chan T Admitting Unavailable Khan, Chan T Attending Unavailable Khan, Chan T Attending Unavailable Khan, Chan T Referring Unavailable Khan, Chan T Admitting Unavailable Blackwell, Elis M Unavailable Unavailable Khan, Chan T Admitting Unavailable Khan, Chan T Attending Unavailable Khan, Chan T Referring Unavailable SACHIN, BALDOMERO Attending Unavailable KHAN, CHAN T Referring Unavailable FERNANDEZ, KYLEE Attending Unavailable KHAN, CHAN T Referring Unavailable BRSHAWNEE, SUMEET Attending Unavailable KHAN, CHAN T Referring Unavailable FERNANDEZ, KYLEE Attending Unavailable KHAN, CHAN T Referring Unavailable KELBLEY, ELIS Attending Unavailable KHAN, CHAN T Referring Unavailable HENRY, DEEP Cazares Attending Unavailable AICHHOLZ, ELVIE Attending Unavailable PATTI, JAVIER Attending Unavailable AICHHOLZ, ELVIE Attending Unavailable AICHHOLZ, ELVIE Attending Unavailable AICHHOLZ, ELVIE Attending Unavailable HENRY, DEEP Cazares Attending Unavailable KHAN, CHAN T Referring Unavailable KHAN, CHAN T Attending Unavailable KHAN, CHAN T Referring Unavailable AICHHOLZ, ELVIE Attending Unavailable KHAN, CHAN T Attending Unavailable KHAN, CHAN T Referring Unavailable AICHHOLZ, ELVIE Attending Unavailable FERNANDEZ, KYLEE Attending Unavailable KHAN, CHAN T Referring Unavailable MCBRIDE, MARIANO Yun Attending Unavailable KHAN, CHAN T Referring Unavailable MCBRIDE, MARIANO Yun Attending Unavailable KHAN, CHAN T Referring Unavailable MCBRIDE, MARIANO Yun Attending Unavailable KHAN, CHAN T Referring Unavailable MCBRIDE, MARIANO Yun Attending Unavailable KHAN, CHAN T Referring Unavailable MCBRIDE, MAIRANO Yun Attending Unavailable KHAN, CHAN T Referring Unavailable FERNANDEZ, KYLEE Attending Unavailable KHAN, CHAN T Referring Unavailable SACHIN, BALDOMERO Attending Unavailable KHAN, CHAN T Referring Unavailable KHAN, CHAN T Referring Unavailable KHAN, CAHN T Attending Unavailable KHAN, CHAN T Referring Unavailable Allergies Allergy Classification Reported Allergen(s) Allergy Type Date of Onset Reaction(s) Facility (1 source) diphenhydrAMINE Drug Allergy [facility] Repository (8 sources) Latex; Translations: [Latex] Drug allergy (disorder) 11-26-19 Unknown Reaction, Hives [facility] (8 sources) diphenhydrAMINE; Translations: [diphenhydramine] Drug Allergy 11-26-19 Unknown (qualifier value) [facility] (1 source) Latex Propensity to adverse reactions Unknown [facility] Other (20 sources) diphenhydrAMINE Drug Allergy 08-09-19 Hives, Itching, Rash, Unknown [facility] (20 sources) Latex Propensity to adverse reactions 08-09-19 Hives, Itching, Rash, Unknown [facility] (20 sources) Prednisone; Translations: [predniSONE] Propensity to adverse reactions 04-01-19 [facility] (20 sources) Antihistamines, Diphenhydramine-Ty pe Propensity to adverse reactions 04-01-19 [facility] (1 source) diphenhydrAMINE Drug Allergy 11-26-19 [facility] (1 source) Latex Drug allergy (disorder) 11-26-19 [facility] (2 sources) predniSONE; Translations: [prednisone] Drug Allergy Unknown (qualifier value) [facility] Medications Current Medications Medication Drug Class(es) Dates Sig (Normalized) Sig (Original) 8 hr acetaminophen 650 mg extended release oral tablet (1 source) take 2 tablets by mouth every eight hours Acetaminophen ER 650 MG 2 tablets as needed Orally every 8 hrs Active acetaminophen 325 mg / HYDROcodone bitartrate 5 mg oral tablet (4 sources) Opioid Agonist Start: 02-22-2024 End: 03-06-2024 take 1-2 tablets by mouth every four hours for pain HYDROcodone-acetamin ophen (Candia) 5-325 MG tablet Indications: Primary osteoarthritis of right knee Take 1-2 tablets by mouth every 4 (four) hours if needed for severe pain (surgical pain) for up to 7 days 50 tablet 02/28/2024 03/06/2024 Active acetaminophen 325 mg / oxyCODONE hydrochloride 5 mg oral tablet (2 sources) Opioid Agonist Start: 02-16-2024 End: 02-23-2024 take 1-2 tablets by mouth every four hours as needed for pain Percocet 5 mg-325 mg oral tablet See Instructions, 50 tab(s), Refill(s) 0, Take one to two every 4 hours as needed for pain. Start Date: 02/16/24 Status: Ordered [id number] 200 actuat albuterol 0.09 mg/actuat metered dose inhaler (20 sources) beta2-Adrenergic Agonist Start: 09-30-2023 take 2 puff(s) by inhalation every six hours for wheezing albuterol HFA 90 mcg/act inhaler Indications: Moderate persistent asthma without complication (CMS/HCC) Inhale 2 puffs every 6 (six) hours if needed for shortness of breath or wheezing 18 g 09/30/2023 Active Start: 04-01-2023 End: 05-01-2023 take 2 puff(s) by inhalation every six hours for wheezing albuterol HFA 90 mcg/act inhaler Indications: Moderate persistent asthma without complication (CMS/HCC) Inhale 2 puffs every 6 (six) hours if needed for shortness of breath or wheezing 18 g 0 04/01/2023 05/01/2023 Active Albuterol (Eqv-ProAir HFA) 90 mcg/inh inhalation aerosol (2 sources) Start: 01-21-2024 Albuterol (Eqv-ProAir HFA) 90 mcg/inh inhalation aerosol 2 inh, Inhalation, q6hr Shortness of breath or wheezing, Refill(s) 0 Start Date: 01/21/24 Status: Ordered aspirin 325 mg oral tablet (10 sources) Platelet Aggregation Inhibitor, Nonsteroidal Anti-inflammatory Drug Start: 02-16-2024 End: 03-17-2024 take 1 tablet by mouth once daily aspirin 325 MG EC tablet Indications: Right knee pain, unspecified chronicity Take 1 tablet (325 mg) by mouth Daily Start Day after Surgery 30 tablet 02/16/2024 03/17/2024 Active 60 actuat budesonide 0.16 mg/actuat / formoterol fumarate 0.0045 mg/actuat metered dose inhaler (20 sources) Corticosteroid, beta2-Adrenergic Agonist Start: 11-26-2023 Budesonide-Formote rol Active INHALATION November 26, 2023 12:00am Start: 09-30-2023 End: 05-08-2024 take 2 puff(s) by inhalation in the morning budesonide-formoterol (Symbicort) 160-4.5 MCG/ACT inhaler Indications: Moderate persistent asthma without complication (CMS/HCC) Inhale 2 puffs in the morning and 2 puffs before bedtime. Rinse mouth with water after use to reduce aftertaste and incidence of candidiasis. Do not swallow.. 30.6 g 1 02/08/2024 05/08/2024 Active Start: 04-13-2023 End: 07-12-2023 take 2 puff(s) by inhalation in the morning budesonide-formoterol (Symbicort) 160-4.5 MCG/ACT inhaler Indications: Moderate persistent asthma without complication (CMS/HCC) Inhale 2 puffs in the morning and 2 puffs before bedtime. Rinse mouth with water after use to reduce aftertaste and incidence of candidiasis. Do not swallow.. 3 each 1 04/13/2023 07/12/2023 Active budesonide-formoterol 160 mcg-4.5 mcg/inh Inh Aer w/adapter (2 sources) Start: 01-21-2024 budesonide-formoterol 160 mcg-4.5 mcg/inh Inh Aer w/adapter 2 inh, Inhalation, BID Shortness of breath or wheezing, Refill(s) 0 Start Date: 01/21/24 Status: Ordered 24 hr buPROPion hydrochloride 300 mg extended release oral tablet (20 sources) Aminoketone Start: 11-26-2023 Bupropion Hcl Active MG PO November 26, 2023 12:00am Start: 09-28-2023 End: 05-08-2024 take 1 tablet by mouth every twenty-four hours in the morning buPROPion XL (Wellbutrin XL) 300 MG 24 hr tablet Indications: Anxiety and depression (CMS/HCC) Take 1 tablet (300 mg) by mouth in the morning. 90 tablet 1 02/08/2024 05/08/2024 Active Start: 04-13-2023 End: 05-13-2023 take 1 tablet by mouth every twenty-four hours in the morning buPROPion XL (Wellbutrin XL) 150 MG 24 hr tablet Indications: Anxiety and depression (CMS/HCC) Take 1 tablet (150 mg) by mouth in the morning. Do not crush, chew, or split.. 30 tablet 1 04/13/2023 05/13/2023 Active calcitriol 0.20802 mg oral capsule (16 sources) Vitamin D3 Analog Start: 01-21-2024 calcitriol ( Rocaltrol) 0.25 MCG capsule Take 0.25 mcg by mouth 01/21/2024 Active Start: 01-21-2024 take 1 capsule by [facility] once daily calcitriol 0.25 mcg Cap 0.25 mcg = 1 cap(s), Oral, Daily, Refills(s) 0, Prophylaxis Start Date: 01/21/24 Status: Ordered take 1 capsule by mo ut in the morning calcitriol (Rocaltrol) 0.25 MCG capsule Take 0.25 mcg by mouth in the morning. 0 Active celecoxib 200 mg oral capsule (20 sources) Nonsteroidal Anti-inflammatory Drug Start: 01-06-2024 take 1 capsule by mouth once daily celecoxib (CeleBREX) 200 MG capsule Take 200 mg by mouth Daily 01/06/2024 Active Start: 11-26-2023 Celecoxib Acti ve MG PO November 26, 2023 12:00am Start: 10-21-2023 End: 11-20-2023 take 1 capsule by mouth once daily celecoxib (CeleBREX) 200 MG capsule Indications: Arthritis of knee, right , Right knee pain, unspecified chronicity Take 1 capsule (200 mg) by mouth Daily 30 capsule 11 10/21/2023 11/20/2023 Active cephalexin 500 mg oral capsule (1 source) Cephalosporin Antibacterial Start: 11-26-2023 take 500 mg by mouth three times daily Cephalexin Active 500 MG PO Three times daily 25 09November 26, 2023 12:00am cetirizine hydrochloride 10 mg oral tablet (1 source) Histamine-1 Receptor Antagonist take 1 tablet by mouth once daily ZyrTEC 10 MG 1 tablet Orally Once a day Active docusate sodium 100 mg oral capsule (3 sources) Start: 02-16-2024 End: 02-26-2024 take 1 capsule by mouth twice daily as needed for constipation docusate sodium (Colace) 100 MG capsule Indications: Right knee pain, unspecified chronicity Take 1 capsule (100 mg) by mouth 2 (two) times a day as needed for constipation for up to 10 days 20 capsule 1 02/16/2024 02/26/2024 Active famotidine 20 mg oral tablet (20 sources) Histamine-2 Receptor Antagonist Start: 11-26-2023 Famotidine Active MG PO November 26, 2023 12:00am Start: 09-30-2023 End: 05-08-2024 take 1 tablet by mouth at bedtime famotidine (Pepcid) 20 MG tablet Indications: Gastroesophageal reflux disease, unspecified whether esophagitis present Take 1 tablet (20 mg) by mouth at bedtime 90 tablet 1 02/08/2024 05/08/2024 Active Fish Oils (2 sources) Start: 01-21-2024 take 1 capsule by mo uth once daily Fish Oil 1000 mg oral capsule 1,000 mg = 1 cap(s), Oral, Daily, Refills(s) 0, Prophylaxis Start Date: 01/21/24 Status: Ordered take 1 capsule by mouth once bharath ly Fish Oil 1000 MG 1 capsule Orally Once a day Active fluconazole 150 mg oral tablet (1 source) Azole Antifungal Start: 11-26-2023 Fluconazole A ctive 150 MG PO Q3D 2 0 November 26, 2023 12:00am may repeat x 1 in 3 days if needed hydrOXYzine pamoate 25 mg oral capsule (20 sources) Antihistamine Start: 01-21-2024 take 1 capsule by mouth four times daily as needed for anxiety hydrOXYzine pamoate 25 mg Cap 25 mg = 1 cap(s), Oral, QID, PRN as needed for anxiety, Refills(s) 0 Start Date: 01/21/24 Status: Ordered Start: 11-26-2023 Hydroxyzine Pa moate Active MG PO November 26, 2023 12:00am Start: 09-28-2023 End: 05-05-2024 take 1 capsule by mouth every eight hours for anxiety hydrOXYzine pamoate (Vistaril) 25 MG capsule Indications: Anxiety and depression (CMS/HCC) Take 1 capsule (25 mg) by mouth every 8 (eight) hours if needed for itching or anxiety 90 capsule 1 04/05/2024 05/05/2024 Active Start: 04-13-2023 End: 05-13-2023 take 1 capsule by mouth every eight hours hydrOXYzine pamoate (Vistaril) 25 MG capsule Indications: Anxiety and depression (CMS/HCC) Take 1 capsule (25 mg) by mouth every 8 (eight) hours Anxiety 90 capsule 0 04/13/2023 05/13/2023 Active Ibuprofen (5 sources) Nonsteroidal Anti-inflammatory Drug Start: 11-26-2023 Ibuprofen Active MG PO November 26, 2023 12:00am Start: 08-05-2023 End: 11-09-2023 take 1 tablet by mouth twice daily as needed ibuprofen 800 MG tablet Take 800 mg by mouth 2 (two) times a day as needed 08/05/2023 11/09/2023 Discontinued (Therapy completed) levothyroxine sodium 0.075 mg oral tablet (20 sources) l-Thyroxine Start: 01-21-2024 take 1 tablet by mouth once daily levothyroxine 75 mcg (0.075 mg) Tab 75 mcg = 1 tab(s), Oral, Daily, Refills(s) 0, Thyroid Start Date: 01/21/24 Status: Ordered Start: 11-26-2023 Levothyroxine Active MCG PO November 26, 2023 12:00am Start: 11-09-2023 End: 07-04-2024 take 1 tablet by mouth before mealtime levothyroxine (Synthroid, Levoxyl) 75 MCG tablet Indications: 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CMS/HCC) Take 1 tablet (75 mcg) by mouth in the morning. Take before meals. 90 tablet 04/05/2024 07/04/2024 Active Start: 09-30-2023 End: 11-09-2023 take 1 tablet by mouth every hour before mealtime levothyroxine (Synthroid) 50 MCG tablet Indications: 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CMS/HCC) Take 1 tablet (50 mcg) by mouth in the morning. Take before meals. Take 1 hour prior to any other food or drink or meds. 30 tablet 2 09/30/2023 11/09/2023 Discontinued (Ineffective) magnesium oxide 400 mg oral tablet (4 [...] Triple St) tablet (3 sources) Misc Natural Products (Osteo Bi-Flex Adv Triple St) tablet Take by mouth 0 Active montelukast 10 mg oral tablet (20 sources) Leukotriene Receptor Antagonist Start: 11-26-2023 Montelukast Active MG PO November 26, 2023 12:00am Start: 09-28-2023 End: 05-08-2024 take 1 tablet by mouth at bedtime montelukast (Singulair) 10 MG tablet Indications: Moderate persistent asthma without complication (CMS/HCC) Take 1 tablet (10 mg) by mouth at bedtime 90 tablet 1 02/08/2024 05/08/2024 Active Start: 04-13-2023 End: 07-12-2023 take 1 tablet by mouth at bedtime montelukast (Singulair) 10 MG tablet Indications: Moderate persistent asthma without complication (CMS/HCC) Take 1 tablet (10 mg) by mouth at bedtime 90 tablet 1 04/13/2023 07/12/2023 Active mupirocin 0.02 mg/mg topical ointment (1 source) RNA Synthetase Inhibitor Antibacterial Start: 11-26-2023 Mupirocin Active 1 APPLIC TOPICAL Three times daily 27 12November 26, 2023 12:00am Nasacort Allergy 24HR (2 sources) Start: 01-25-2024 Nasacort Allergy 24HR 1 spray(s), Nasal, Daily, Refill(s) 0, Allergy symptoms Start Date: 01/25/24 Status: Ordered [place]-3 Fatty Acids (Fish Oil) 1000 MG capsule delayed-release (3 sources) [place]-3 Fatty Ac ids (Fish Oil) 1000 MG [...] v Double St 2 tabs daily Active pantoprazole 40 mg delayed release oral tablet (20 sources) Proton Pump Inhibitor Start: 11-26-2023 Pantoprazole Active MG PO November 26, 2023 12:00am Start: 09-30-2023 End: 05-08-2024 take 1 tablet by mouth before mealtime pantoprazole (ProtoNix) 40 MG EC tablet Indications: Gastroesophageal reflux disease, unspecified whether esophagitis present Take 1 tablet (40 mg) by mouth in the morning. Take before meals. Do not crush, chew, or split.. 90 tablet 1 02/08/2024 05/08/2024 Active Potassium (20 sources) Potassium 99 MG tablet 1 (one) time each day at the same time Active Potassium 99 MG tablet 1 (one) time each day at the same time 0 Active take 2 tablets by mouth once bharath ly Potassium 99 MG 2 tablet Orally Once a day Active potassium chloride 1.33 meq oral tablet (2 sources) Start: 01-21-2024 take 1 tablet by mouth once daily potassium chloride 99 mg oral tablet 99 mg = 1 tab(s), Oral, Daily, # 100 tab(s), Refills(s) 0, Prophylaxis Start Date: 01/21/24 Status: Ordered traMADol hydrochloride 50 mg oral tablet (17 sources) Opioid Agonist Start: 08-12-2023 End: 02-08-2024 take 1 tablet by mouth every twenty-four hours as needed traMADol (Ultram) 50 MG tablet Take 50 mg by mouth Daily as needed 08/12/2023 02/08/2024 Discontinued (Therapy completed) Start: 04-14-2023 End: 04-29-2023 traMADol (Ultram) 50 MG tabl et Indications: [...] acetonide 0.055 mg/actuat metered dose nasal spray (20 sources) Corticosteroid Start: 04-05-2024 End: 07-04-2024 take 2 spray(s) nasal route once daily triamcinolone (Nasacort) 55 MCG/ACT nasal inhaler Indications: Moderate persistent asthma, uncomplicated (CMS/HCC) Administer 2 sprays into each nostril Daily 50.7 mL 1 04/05/2024 07/04/2024 Active Start: 02-08-2024 End: 03-07-2024 triamcinolone (Kenalog) 0.1 % ointment Indications: Psoriasis (CMS/HCC) Apply topically 2 (two) times a day for 28 days Apply to affected area, as needed, avoid use on face 80 g 02/08/2024 03/07/2024 Active Start: 09-28-2023 End: 12-27-2023 Triamcinolone Acetonide Acti ve INTRANASAL November 26, 2023 12:00am Start: 04-13-2023 End: 07-12-2023 take 2 spray(s) nasal route in the morning triamcinolone (Nasacort) 55 MCG/ACT nasal inhaler Indications: Moderate persistent asthma without complication (CMS/HCC) Administer 2 sprays into each nostril in the morning. 50 g 1 04/13/2023 07/12/2023 Active End: 04-05-2024 take 2 spray(s) nasal route once daily triamcinolone (Nasacort) 55 MCG/ACT nasal inhaler instill 2 (TWO) sprays IN EACH NOSTRIL DAILY 04/05/2024 Discontinued Problems Active Problems Problem Classification Problem Date Documented Date Episodic/Chronic Anxiety disorders (20 sources) Mixed anxiety and depressive disorder; Translations: [Anxiety disorder, unspecified] Onset: 04-01-2023 04-01-2023 Chronic Asthma (20 sources) Asthma; Translations: [Asthma, unspecified] Onset: 04-01-2023 Resolved: 02-08-2024 04-01-2023 Chronic Diabetes mellitus without complication (1 source) Type 2 diabetes mellitus without complication; Translations: [Diabetes mellitus without mention of complication, type II or unspecified, not stated as uncontrolled] Chronic Esophageal disorders (20 sources) Gastro-esophageal reflux disease without esophagitis; Translations: [Gastroesophageal reflux disease] Onset: 02-25-2022 04-01-2023 Chronic Immunizations and screening for infectious disease (1 source) Encounter for screening for human papillomavirus (HPV); Translations: [ENC SCREENING HUMAN PAPILLOMAVIRUS] Onset: 05-10-2022 Episodic Mood disorders (2 sources) Depressive disorder 01-25-2024 Chronic Osteoarthritis (20 sources) Arthritis of right knee; Translations: [Unilateral primary osteoarthritis, right knee] Onset: 04-01-2023 04-01-2023 Chronic Other aftercare (3 sources) Patient encounter status; Translations: [Aftercare following joint replacement surgery] 03-22-2024 Chronic Other connective tissue disease (20 sources) History of total knee arthroplasty; Translations: [Presence of right artificial knee joint] Onset: 02-22-2024 02-22-2024 Chronic Other connective tissue disease (1 source) Cramp and spasm; Translations: [CRAMP AND SPASM] Onset: 05-31-2022 Episodic Other inflammatory condition of skin (20 sources) Psoriasis; Translations: [Psoriasis, unspecified] Onset: 04-01-2023 04-01-2023 Chronic Other nervous system disorders (20 sources) Difficulty walking; Translations: [Difficulty in walking, not elsewhere classified] Onset: 02-22-2024 02-22-2024 Chronic Other nervous system disorders (20 sources) Other acute postprocedural pain; Translations: [Pain in joint, lower leg] Onset: 04-01-2023 02-22-2024 Episodic Other non-traumatic joint disorders (1 source) Pain in unspecified joint; Translations: [Pain in unspecified joint] Onset: 12-09-2023 Episodic Other nutritional; endocrine; and metabolic disorders (20 sources) Hypomagnesemia; Translations: [Hypomagnesemia] Onset: 04-01-2023 04-01-2023 Chronic Other nutritional; endocrine; and metabolic disorders (20 sources) Morbid obesity; Translations: [Morbid (severe) obesity due to excess calories] Onset: 02-08-2024 02-08-2024 Chronic Other screening for suspected conditions (not mental disorders or infectious disease) (20 sources) Abnormal results of liver function studies; Translations: [Encounter for screening for malignant neoplasm of cervix] Onset: 05-06-2022 Resolved: 11-09-2023 Episodic Syncope (2 sources) Syncope 01-21-2024 Episodic Thyroid disorders (20 sources) Aura thyroiditis; Translations: [Autoimmune thyroiditis] Onset: 06-29-2023 12-26-2023 Chronic Past or Other Problems Problem Classification Problem Date Documented Date Episodic/Chronic Abdominal hernia (20 sources) Umbilical hernia; Translations: [Umbilical hernia without obstruction or gangrene] Onset: 04-01-2023 Resolved: 08-31-2023 04-01-2023 Episodic Abdominal pain (3 sources) Epigastric pain; Translations: [EPIGASTRIC PAIN] Onset: 02-23-2022 Episodic Chronic obstructive pulmonary disease and bronchiectasis (1 source) Bronchitis, not specified as acute or chronic; Translations: [BRONCHITIS NOT SPEC ACUTE/CHRON] Onset: 02-25-2022 Episodic Diabetes mellitus without complication (20 sources) Increased glucose level; Translations: [Other abnormal glucose] Onset: 04-01-2023 04-01-2023 Episodic Joint disorders and dislocations; trauma-related (20 sources) Derangement of right knee; Translations: [Unspecified internal derangement of right knee] Onset: 04-01-2023 Resolved: 09-30-2023 04-01-2023 Chronic Joint disorders and dislocations; trauma-related (20 sources) Acute meniscal tear, medial; Translations: [Other tear of medial meniscus, current injury, unspecified knee, initial encounter] Onset: 04-01-2023 Resolved: 09-30-2023 04-01-2023 Episodic Nonmalignant breast conditions (20 sources) Mastodynia; Translations: [Mastodynia] Onset: 04-01-2023 04-01-2023 Episodic Other aftercare (1 source) 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; Translations: [OTH CORRECTION CURRENT DRUG THERAPY] Onset: 02-25-2022 Episodic Other connective tissue disease (20 sources) H/O: knee problem; Translations: [Personal history of other diseases of the musculoskeletal system and connective tissue] Onset: 03-27-2020 Resolved: 11-09-2023 04-01-2023 Episodic Other connective tissue disease (20 sources) Cramp in lower limb; Translations: [Cramp and spasm] Onset: 04-01-2023 04-01-2023 Episodic Other non-traumatic joint disorders (20 sources) Pain in right knee; Translations: [Pain in joint, lower leg] Onset: 04-01-2023 Resolved: 09-30-2023 04-14-2023 Episodic Other nutritional; endocrine; and metabolic disorders (20 sources) Body mass index 40+ - severely obese; Translations: [Morbid (severe) obesity due to excess calories] Onset: 04-13-2023 Resolved: 02-08-2024 04-13-2023 Chronic Other skin disorders (20 sources) Loss of hair; Translations: [Nonscarring hair loss, unspecified] Onset: 04-01-2023 04-01-2023 Episodic Otitis media and related conditions (20 sources) Acute suppurative otitis media without spontaneous rupture of ear drum; Translations: [Acute suppurative otitis media without spontaneous rupture of ear drum, left ear] Onset: 05-18-2023 Resolved: 11-09-2023 11-09-2023 Episodic Skin and subcutaneous tissue infections (20 sources) Cellulitis of left upper limb; Translations: [Cellulitis of left upper limb] Onset: 08-31-2023 Resolved: 11-09-2023 11-26-2023 Episodic Unclassified (1 source) Contact with and (suspected) exposure to covid-19 Z20.822 Viral infection (1 source) COVID-19 Results Test Name Value Interpretation Reference Range Facility XR Knee - right 3 [facility] Result: Xrays taken in the office today saved to the permanent record, Ap, lateral and sunrise weight bearing films, show stable position and alignment of the right knee prosthesis. No sign of loosening or infection. Formerly [facility] Radiology Study observation (narrative) [facility] Surgical Pathology Reporton 02-25-2024 Surgical Pathology Report [address] [address]- Surgical Pathology Report Collected Date/Time: 02/21/2024 11:30 EST Pathologist: Darius SAGASTUME PhD, Tracey Cerrato Date/Time: 02/21/2024 14:10 EST Loren ARELLANO, Chan Khan DO, Chan Breaux Surgical Pathology Report - 02/25/2024 14:08 EST - Auth (Verified) Final Diagnosis BONE AND TISSUE, RIGHT KNEE, ARTHROPLASTY: - BONE CARTILAGE WITH DEGENERATIVE REMODELING CHANGES, CONSISTENT WITH DEGENERATIVE OSTEOARTHRITIS. - NORMOCELLULAR BONE MARROW WITH TRILINEAGE HEMATOPOIESIS. - BENIGN SYNOVIAL SOFT TISSUE AND SKELETAL MUSCLE. (Electronic Signature) Tracey Mccoy MD PhD 02/25/2024 14:08 Clinical Information Right knee OA Pre-Op Diagnosis: Right knee OA Procedure: Right total knee arthroplasty Post-Op Diagnosis: 1. Right knee endstage osteoarthritis with antalgic gait 2. Failure of conservative injection care 3. Obesity, body mass index greater than 40 Specimen(s) Received Bone and tissue right knee Gross Description Received in formalin labeled with patient name, number, and bone and tissue right knee. The specimen consists of an assortment of fragments of yellowish-white fibrofatty tissue and osseous tissue which in aggregate measure 14 x 12.5 x 5 cm. Among the segments is a recognizable tibial plateau and crescent-shaped meniscal fibrocartilage. The osseous segments are in part covered by articular surface which is thin, rough, and eburnated with osteophyte formation present. Specimen is submitted in two cassettes: 1 - Soft tissue 2 - Bone after decalcification (DC) DC:[facility] Microscopic Description Microscopic examination performed unless gross only specified. Normal [facility] Comment on above: Performed By: #### [id number] #### [facility] [address] [place] [address] Main OR Intraoperative Recor don 02-22-2024 Main OR Intraoperative Record Main OR Intraoperative Record IntraOp Document Type FT Summary Primary Physician: Chan Khan DO Finalized Date/Time: 02/22/24 12:52:18 Pt. Name: MANDIEMaryWILMER/Sex: 1985 Female Med Rec #: [id number] Physician: Chan Khan DO Financial #: [id number] Pt. Type: A Room/Bed: [place] [address] Admit/Disch: 02/21/24 08:02:21 - 02/21/24 17:00:00 Institution: Case Times FT Entry 1 Patient Times In Room 02/21/24 10:53:00 Out Room 02/21/24 12:25:00 Procedure Times Start 02/21/24 11:20:00 Stop 02/21/24 12:16:00 Anesthesia Times Start 02/21/24 10:53:00 Stop 02/21/24 12:25:00 Block Timeout w/ 02/21/24 10:05:00 Anesthesia Last Modified By: Suki TORRE, MAICOL, Brynn Akhtar 02/21/24 12:25:34 General Comments: [id number] kwasi for block. HR 101, SPO2 100%, Nervous. Tolerated procedure well./ T koki TORRE/ Jaime Cohn Rn 02/22/24 Chart opened to review and send charges [facility] Case Attendance FT Entry 1 Entry 2 Entry 3 Case Attendee Melvin LARSON, CLAY ROASTER, [facility], Chan Cohn RN, CNOR, Brynn Cheryl Akhtar Role Performed CLAY ROASTER Surgeon - Primary Hse Coordinator - Primary Time In 02/21/24 10:53:00 02/21/24 10:47:00 02/21/24 10:53:00 Time Out 02/21/24 12:25:00 02/21/24 12:05:00 02/21/24 12:25:00 Procedure KNEE TOTAL KNEE TOTAL KNEE TOTAL ARTHROPLASTY(Right) ARTHROPLASTY(Right) ARTHROPLASTY(Right) Comments R Myriam Resident, Lucille dorsey in to hold Chocran in room leg for prep [id number] Last Modified By: Skye MACHINE ADJUSTER LEADER, Antoinette Cohn RN, CNOR, Brynn Cohn RN, CNOR, Brynn 02/22/24 12:49:03 Giovana 02/21/24 12:25:07 Giovana 02/21/24 12:25:55 Entry 4 Entry 5 Entry 6 Case Attendee Presley GALLAGHER, Shayna Dorsey MACHINE ADJUSTER LEADER, Tesha Loaiza Role Performed Scrub - Primary MACHINE ADJUSTER LEADER/SA Staff - Other Time In 02/21/24 10:53:00 02/21/24 10:53:00 02/21/24 10:53:00 Time Out 02/21/24 12:09:00 02/21/24 12:25:00 02/21/24 12:20:00 Procedure KNEE TOTAL KNEE TOTAL KNEE TOTAL ARTHROPLASTY(Right) ARTHROPLASTY(Right) ARTHROPLASTY(Right) Comments 2nd scrub Last Modified By: Suki RN, CNOR, Brynn Cohn RN, CNOR, Brynn Cohn RN, CNOR, Farzaneh 02/21/24 12:25:07 Giovana 02/21/24 12:25:55 Giovana 02/21/24 12:25:07 Perioperative Protocols FT Pre-Care Text: Implements protective measures prior to operative or invasive procedure, confirms identity before the operative or invasive procedure, verifies operative procedure, surgical site, and laterality Entry 1 Procedure(s) KNEE TOTAL Patient Identity Birthday, ID Band ARTHROPLASTY(Right) Verified (select at Check, Patient least 2): Participation Consents / H and P Anesthesia Consent, Operative Site Present Verified H&P, Surgery/Procedure Marking Verified Consent Surgical Site Yes Laterality Verified Yes Verified Procedure Verified Yes Correct Patient Yes Position Verified Availability Equipment, Implant, Prep Dry n/a Verified (If Medication Applicable) PreOp Antibiotic Yes Time Out Melvin LARSON, JAMES, Queen Annette Participants NGabriel, Chan Khan DO, Suki TORRE, NUNOOR, Brynn Akhtar, Presley GALLAGHER, Alvaro Yousif CST, Dee Adkins Time Out Complete 02/21/24 11:17:00 Outcomes Met? Yes Last Modified By: MAICOL Cohn RN, Lou Ann 02/21/24 11:20:17 Post-Care Text: The patient is free from signs and symptoms of injury caused by extraneous objects Allergy Information FT Pre-Care Text: Verifies allergies Entry 1 Allergies Reviewed? Yes Allergies Reviewed Self/Patient With Outcomes Met? Yes Last Modified By: MAICOL Cohn RN, Lou Ann 02/21/24 10:38:17 Post-Care Text: The patient received appropriate medication(s) safely administered during the perioperative period Surgical Procedures FT Entry 1 Procedure Description Procedure KNEE TOTAL ARTHROPLASTY Modifiers Right Surgeon Description RIGHT TOTAL KNEE ARTHROPLASTY COMPOUNDED BY OBESITY Primary Procedure Yes Primary Surgeon Chan Khan DO Start 02/21/24 11:20:00 Stop 02/21/24 12:16:00 Anesthesia Type General Surgical Service Orthopedics Wound Class 1 - Clean Last Modified By: MAICOL Cohn RN, Lou Ann 02/21/24 12:25:09 General Case Data FT Pre-Care Text: Classifies surgical wound, implements aseptic technique, initiates traffic control Entry 1 Case Information OR OR 5 FT Case Level Level 6 Wound Class 1 - Clean Specialty Orthopedics ASA Class 4 Preop Diagnosis RIGHT KNEE OA Postop Same As Preop Yes Postop Diagnosis RIGHT KNEE OA Outcomes Met? Yes Last Modified By: MAICOL Cohn RN, Lou Ann 02/21/24 12:25:21 Post-Care Text: The patient is free from signs and symptoms of infection Skin Assessment (Pre Procedure) FT Pre-Care Text: Implements protective measures to prevent skin/ tissue injury due to thermal or mechanical sources Evaluates for signs and symptoms of physical injury to skin and tissue Entry 1 Skin Integrity Intact Skin Abnormality Yes Abnormality Location left knee psoiasis Outcomes Met? Yes Last Modified (more content not included)... Normal [facility] Main OR Preoperative Recordo n 02-22-2024 Main OR Preoperative Record Main OR Preoperative Record PreOp Document Type FT Summary Primary Physician: Chan Khan DO Finalized Date/Time: 02/22/24 08:37:35 Pt. Name: WILMER NAVARRO /Sex: 1985 Female Med Rec #: [id number] Physician: Chan Khan DO Financial #: [id number] Pt. Type: A Room/Bed: [facility]/ Admit/Disch: 02/21/24 08:02:21 - 02/21/24 17:00:00 Institution: Case Times PreOp FT Pre-Care Text: Verifies consent for planned procedure, identifies individual values and wishes concerning care, includes family members in perioperative teaching Entry 1 Patient Times. In Pre Surgery 02/21/24 08:05:00 Out Pre Surgery 02/21/24 10:50:00 Outcomes Met? Yes Last Modified By: MAICOL Cohn RN, Lou Ann 02/22/24 08:37:33 Post-Care Text: The patient participates in decisions affecting his or her perioperative plan of care Finalized By: MAICOL Cohn RN, Lou Ann Document Signatures Signed By: MAICOL Cohn RN, Lou Ann 02/22/24 08:37 Normal [facility] Operative Reporton Operative Report Operative Report SURGERY DATE: 02/21/2024 PREOPERATIVE DIAGNOSES: 1. Right knee endstage osteoarthritis with antalgic gait 2. Failure of conservative injection care 3. Obesity, body mass index greater than 40 POSTOPERATIVE DIAGNOSES: 1. Right knee endstage osteoarthritis with antalgic gait 2. Failure of conservative injection care 3. Obesity, body mass index greater than 40 OPERATION: Right total knee arthroplasty compounded by morbid obesity, body mass index greater than 40 ANESTHESIA: Spinal with sedation with block ESTIMATED BLOOD LOSS: Zero SPECIMEN: Bone IMPLANTS UTILIZED: The DePuy Attune knee system with a PS cemented right size 6 narrow femur, a size 5 cemented fixed tibial tray, 8 mm polyethylene, 32 mm patellar button TOURNIQUET TIME: See nurse's record. HISTORY AND INDICATIONS: Wilmer is a 38-year-old female with progressive right knee pain with newe-uy-[id number] disease. She has a strong family history as well as treatment for several decades. She has tried ice, Tylenol, analgesics, corticosteroid injections. She has qyps-hv-fkse. She initially presented with an elevated body mass index. She did have significant weight loss to get this down to a more acceptable position. She is aware her body mass index currently increases her perioperative risk of morbidity and mortality. Sites marked preoperatively, all questions answered preoperatively, antibiotics provided weight based per protocol, consent form signed and witnessed. PROCEDURE: Wilmer was taken to the Operating Room and placed in supine position. Anesthesia was provided. A well-padded tourniquet was placed on the right upper thigh. The leg was prepped and draped in a sterile fashion. A time-out procedure occurred consistent with the consent form, History and Physical, preoperative marked site. Landmarks were identified. Once time-out was confirmed, a midline incision was made of approximately 6 to 7 inches. The adipose layer, of note, was approximately an inch and a half thick to the anterior knee. Medial parapatellar arthrotomy was performed, and the patella was everted. There were endstage tricompartmental degenerative changes that were noted in particularly the medial and patellofemoral joints. The patella was appropriately cut and retracted. The knee was flexed. Intramedullary drill and jig device was placed in the femur, and a 5-degree valgus cut taking off 11 mm was performed. This was sized at a size 6 narrow. Anterior and posterior cuts as well as posterior stabilized box cut were performed. Anterior cruciate ligament and posterior cruciate ligament were resected, collateral ligaments protected and balanced, meniscal remnants removed. Intramedullary drill and jig device was placed at the tibia, and tibia was cut. Gaps were symmetrical. Posterior gutters were clean and free. Tibia was prepared for a size 5 fixed. Trial components were placed with full extension and flexion to approximately 108 degrees with adipose impingement. Patellofemoral tracking and height were appropriate with a 32 mm button. All trial components were removed. The capsule, gutters, and subcutaneous tissues were injected with Exparel per protocol. Irrisept was allowed to soak followed by copious irrigation. The Yoshi Simplex cement was mixed and all components cemented in place and allowed to harden for 16 minutes. All cement osteophytes removed. Knee was taken through an arc of motion and deemed stable. After copious irrigation 2 g of tranexamic acid was placed subfascially. The fascial layer was closed with #2 Quill suture in a running fashion, 0 Quill closed the adipose layer, 2-0 Quill suture closed the subcutaneous tissues, and shaunna were applied. A 10 Mepilex dressing with soft roll wrap was provided. Tourniquet was deflated. The patient was awakened from anesthesia and transferred to the Recovery Room in stable and satisfactory condition. CASE: Clean and elective COUNTS: Sponge and needle count correct SPECIMEN: Bone PATIENT CONDITION: Satisfactory Aquiles Villarreal Dictated: 02/21/2024 [id number] Transcribed: 02/21/2024 cc:Elvie Greer CNP Normal [facility] Comment on above: Result Comment: Elec tronically Signed By: Chan Khan DO\.br\Date and Time Signed: 02/22/24 17:18 EST ABO/Rhon 02-21-2024 ABO/Rh Positive Invalid Interpretation Code [facility] Comment on above: Performed By: #### [id number] #### [facility] [address] [place] [address] ABO/Rh History Checkon 02-20 ABO/Rh History Check Verified Hx Blood Type Normal [facility] Comment on above: Performed By: #### [id number] #### [facility] [address] [place] [address] ABSCon 02-21-2024 ABSC Gel Interp Negative Normal [facility] Comment on above: Performed By: #### [id number] #### [facility] [address] [place] [address] BLOOD BANKOrdered By: Donnie French on 02-21-2024 ABO/Rh Interp Positive Invalid Interpretation Code [facility] BB Subsection ABSC Gel Interp Negative (02/21/24 8:56 AM) Normal [facility] BB Subsection Blood Bank ID#on 02-21-2024 BBID# [id number] Invalid Interpretation Code [facility] Comment on above: Performed By: #### [id number] #### [facility] [address] [place] [address] Discharge Instructionson Discharge Instructions Discharge Instructions WILMER NAVARRO :1985 Visit Date:02/21/2024 Inpatient Discharge Instructions Your Care Team Admitting Physician - Chan Khan DO Referring Physician - Loren ARELLANO, Chan Cazares Reason for Your Visit RIGHT KNEE OA Your Diagnosis Localized osteoarthritis of right knee Tests Performed Pathology Tissue Exam -- Results Pending -- XR Knee 1 or 2 Views Right Please visit your patient portal for your results or contact your primary care physician. This Is Your Medications List acetaminophen-oxycod one (Percocet 5 mg-325 mg oral tablet) albuterol (Albuterol (Eqv-ProAir HFA) 90 mcg/inh inhalation aerosol) aspirin (aspirin 325 mg Tab) buPROPion (buPROPion 300 mg/24 hours ER Tab) budesonide-formotero l (budesonide-formoter ol 160 mcg-4.5 mcg/inh Inh Aer w/adapter) celecoxib (CeleBREX 200 mg Cap) cephalexin (Keflex 500 mg Cap) docusate (Colace 100 mg Cap) famotidine (famotidine 20 mg Tab) hydrOXYzine (hydrOXYzine pamoate 25 mg Cap) levothyroxine (levothyroxine 75 mcg (0.075 mg) Tab) montelukast (montelukast 10 mg Tab) pantoprazole (Pantoprazole [address] Tab) potassium chloride (potassium chloride 99 mg oral tablet) triamcinolone nasal (Nasacort Allergy 24HR) [Image Removed: STOP]Stop taking these medications calcitriol (calcitriol 0.25 mcg Cap) omega-3 polyunsaturated fatty acids (Fish Oil 1000 mg oral capsule) Procedure History Cholecystectomy, History of hernia repair, History of hernia repair. What to do next Instructions From Your Doctor Event Name Event Result Discharge Activity Ambulate as tolerated, Arrange for a responsible adult supervision for 24 hours, Expect mild pain, Expect minimal amount of drainage and/or bleeding, Do not lift more than 5 lbs Discharge Restrictions No driving, Do not operate machinery or tools, Do not make important decisions for 24 hours, Do not drink alcoholic beverages for 24 hours Discharge Diet(s) Regular, Drink liquids and eat a light meal Call Your Doctor For Persistent or heavy bleeding, Temperature above 101.5 degrees, Redness, swelling, or pus at operative site, Severe pain at the operative site, Persistent vomiting Wound Care Remove dressing as instructed Remove Dressing On 10 Discharge Instructions Discharge Instructions New Follow Up Appointments after Discharge Follow Up with GUILLERMO Villarreal When: 03/23/2024 03:00 PM EST Comments: Keep scheduled appointment Where: [address] [place] [phone] (1) Medications What How Much When Why Instructions Next Dose Unchanged acetaminophen-oxycod one (Percocet 5 mg-325 mg oral tablet) See instructions Localized osteoarthritis of right knee Take one to two every 4 hours as needed for pain. Printed Prescription Unchanged albuterol (Albuterol (Eqv-ProAir HFA) 90 mcg/ inh inhalation aerosol) 2 Inhalation Inhalation Every 6 hours as needed for Shortness of breath or wheezing Unchanged aspirin (aspirin 325 mg Tab) 1 Tablets By Mouth Every day Duration: 30 Days Start the day after surgery Unchanged budesonide-formotero l (budesonide-formoter ol 160 mcg-4.5 mcg/ inh Inh Aer w/ adapter) 2 Inhalation Inhalation 2 times a day as needed for Shortness of breath or wheezing Unchanged buPROPion (buPROPion 300 mg/ 24 hours ER Tab) 1 Tablets By Mouth Every 24 hours Unchanged celecoxib (CeleBREX 200 mg Cap) 1 Capsules By Mouth Every day Unchanged cephalexin (Keflex 500 mg Cap) 1 Capsules By Mouth 4 times a day Duration: 5 Days STart the day after surgery Unchanged docusate (Colace 100 mg Cap) 1 Capsules By Mouth 2 times a day Unchanged famotidine (famotidine 20 mg Tab) 1 Tablets By Mouth 2 times a day Unchanged hydrOXYzine (hydrOXYzine pamoate 25 mg Cap) 1 Capsules By Mouth 4 times a day as needed for as needed for anxiety Unchanged levothyroxine (levothyroxine 75 mcg (0.075 mg) Tab) 1 Tablets By Mouth Every day Unchanged montelukast (montelukast 10 mg Tab) 1 Tablets By Mouth Every day Unchanged pantoprazole (Pantoprazole [address] Tab) 1 Tablets By Mouth Every day Unchanged potassium chloride (potassium chloride 99 mg oral tablet) 1 Tablets By Mouth Every day Unchanged triamcinolone nasal (Nasacort Allergy 24HR) 1 Sprays Nasal Inhalation Every day What How Much When Comments Stop Taking calcitriol (calcitriol 0.25 mcg Cap) 1 Capsules By Mouth Every day Stop Taking omega-3 polyunsaturated fatty acids (Fish Oil 1000 mg oral capsule) 1 Capsules By Mouth Every day Allergies Latex (Hives) diphenhydrAMINE (Unknown) predniSONE (Unknown) Devices Implanted/Removed This Visit Notice: You have devices implanted this visit that may not be MRI compatible. Implanted KNEE TOTAL ARTHROPLASTY Knee R patella dome 02/21/2024 tibial tray 02/21/2024 tibial tray insert 02/21/2024 femoral component 02/21/2024 cement (2), 02/21/2024 Education Materials How to Use an Incentive S (more content not included)... Normal [facility] Comment on above: Result Comment: Elec tronically Signed By: Ricki TORRE, Marium Mcmullen.br\Date and Time Signed: 02/21/24 12:54 EST Interdisciplinary Note - Mary singon 02-21-2024 Interdisciplinary Note - Nursing Interdisciplinary Note - Nursing at 1245, pt heart rate down to 30's, sinus pt feeling lightheaded and dizzy. pt placed in Trendelenberg- called and atropine 0.4mg given. heart rate increased to 50's. fluids wide open. Normal [facility] Main OR PACU I Recordon 02-05 Main OR PACU I Record Main OR PACU I Record PACU Phase I Document Type FT Summary Primary Physician: Chan Khan DO Finalized Date/Time: 02/21/24 14:56:12 Pt. Name: WILMER NAVARRO/Sex: 1985 Female Med Rec #: [id number] Physician: Chan Khan DO Financial #: [id number] Pt. Type: A Room/Bed: 07/ Admit/Disch: 02/21/24 08:02:21 - Institution: Case Times PACU I FT Pre-Care Text: Identifies barriers to communication and implements measures to provide psychological support Develops individualized plan of care, and ensures continuity of care Maintains patient's dignity and privacy, and maintains patient confidentiality Identifies and reports philosophical, cultural, and spiritual beliefs and values Identifies individual values and wishes concerning care Implements aseptic technique, and administers prescribed antibiotic therapy and immunizing agents as ordered Evaluates postoperative tissue perfusion Implements thermoregulation measures, and monitors body temperature Evaluates postoperative respiratory status Evaluates postoperative cardiac status Evaluates postoperative neurological status Assesses pain control, collaborated in initiating patient-controlled analgesia and implements alternative methods of pain control Verifies allergies, administers prescribed medications and solutions, evaluates response to medications Entry 1 In PACU I 02/21/24 12:27:00 Discharge from PACU 02/21/24 13:30:00 I Outcomes Met? Yes Last Modified By: Shanti Bender RN 02/21/24 14:55:50 Post-Care Text: The patient demonstrates knowledge of the expected response to the operative or invasive procedure The patient's care is consistent with the individualized perioperative plan of care The patient's right to privacy is maintained The patient's value system, lifestyle, ethnicity, and culture are considered, respected, and incorporated into the perioperative plan of care The patient participates in decisions affecting his or her perioperative plan of care The patient is free from signs and symptoms of infection The patient has wound/tissue perfusion consistent with or improved from baseline levels established preoperatively The patient is at or returning to normothermia at the conclusion of the immediate postoperative period The patient's respiratory function is consistent with or improved from baseline levels established preoperatively The patient's cardiovascular status is consistent with or improved from baseline levels established preoperatively The patient's cardiovascular status is consistent with or improved from baseline levels established preoperatively The patient demonstrates and/or reports adequate pain control throughout the perioperative period The patient received appropriate medication(s), safely administered during the perioperative period Acuity Level PACU I FT Entry 1 Start Time 02/21/24 12:27:00 Stop Time 02/21/24 13:30:00 Acuity Level Acuity Level I Last Modified By: Shanti Bender RN 02/21/24 14:56:08 Finalized By: Shanti Bender RN Document Signatures Signed By: Shanti Bender RN 02/21/24 14:56 Normal [facility] Main OR PACU II Recordon Main OR PACU II Record Main OR PACU II Record PACU Phase II Document Type FT Summary Primary Physician: Chan Khan DO Finalized Date/Time: 02/21/24 18:04:41 Pt. Name: WILMER NAVARRO Tashi/Sex: 1985 Female Med Rec #: [id number] Physician: Chan Khan DO Financial #: [id number] Pt. Type: A Room/Bed: [facility] Admit/Disch: 02/21/24 08:02:21 - Institution: Case Times PACU II FT Pre-Care Text: Identifies barriers to communication and implements measures to provide psychological support and determines knowledge level Develops individualized plan of care, and ensures continuity of care Maintains patient's dignity and privacy, and maintains patient confidentiality Identifies and reports philosophical, cultural, and spiritual beliefs and values Identifies individual values and wishes concerning care administers prescribed antibiotic therapy and immunizing agents as ordered, Evaluates postoperative tissue perfusion Implements thermoregulation measures, and monitors body temperature Evaluates postoperative respiratory status Evaluates postoperative cardiac status Evaluates postoperative neurological status Assesses pain control, collaborated in initiating patient-controlled analgesia and implements alternative methods of pain control Verifies allergies, administers prescribed medications and solutions, evaluates response to medications Entry 1 In PACU II 02/21/24 13:35:00 Discharge from PACU 02/21/24 17:00:00 II Outcomes Met? Yes Last Modified By: Naila Landaverde 02/21/24 18:04:24 Post-Care Text: The patient demonstrates knowledge of the expected response to the operative or invasive procedure The patient's care is consistent with the individualized perioperative plan of care The patient's right to privacy is maintained The patient's value system, lifestyle, ethnicity, and culture are considered, respected, and incorporated into the perioperative plan of care The patient participates in decisions affecting his or her perioperative plan of care. The patient is free from signs and symptoms of infection The patient has wound/tissue perfusion consistent with or improved from baseline levels established preoperatively The patient is at or returning to normothermia at the conclusion of the immediate postoperative period The patient's respiratory function is consistent with or improved from baseline levels established preoperatively The patient's cardiovascular status is consistent with or improved from baseline levels established preoperatively The patient's neurological status is consistent with or improved from baseline levels established preoperatively The patient demonstrates and/or reports adequate pain control throughout the perioperative period The patient received appropriate medication(s), safely administered during the perioperative period Finalized By: Naila Landaverde Document Signatures Signed By: Naila Landaverde 02/21/24 18:04 Naila Landaverde 02/21/24 18:04 Normal [facility] Proceduralon 02-21-2024 Procedural Procedural Patient: WILMER NAVARRO Age: 38 years Sex: Female : 1985 Associated Diagnoses: None Author: Melvin LARSON CRNA, Queen N. Procedure Nerve Block Block Type: Adductor canal block. Laterality: Right. Informed consent for anesthesia management: Anesthesia options discussed including nerve block, Description of the procedure, risks, benefits, and alternatives was provided, The patient's questions were addressed. Time out: Confirmed correct patient, procedure and site. Time: Date/Time 02/21/2024 10:13:00. Indication: Block for postoperative pain management as requested by surgeon. Anesthesia Method: IV Sedation with monitored anesthesia care, The patient remained awake and able to interact in a meaningful way throughout the procedure. Preparation: The patient was placed in the following position Supine, Continuous pulse oximetry applied, Using maximal sterile barrier technique per current [facility] guidelines including hand hygeine, Guidance (Ultrasound used to identify anatomical landmarks, Using sterile gel and probe covers, Permanent image retained), The site was prepped with ChloraPrep. Procedure: Anesthetic Agent 20cc of 0.5% Ropivicaine., Catheter size (21 guage, Pajunk needle), Needle was inserted without pain or parasthesia in the conscious patient, Number of attempts 1, Negative attempt at aspiration for blood, Medial and lateral spread of the anesthestic was observed, Periodic negative attempts at aspiration of blood were made as the local was injected, No pain or parathesia were elicited with injection of the anesthetic in the conscious patient, It was idetified that the correct anesthetic agent was administered to the correct site. Complications: The patient tolerated the procedure as expected, Procedure completed by Queen Melvin CRNA under Dr Gupta's supervision. Normal [facility] SEROLOGYOrdered By: Brook French on 02-21-2024 HCG.beta subunit (U) [Moles/Vol] Negative Normal [facility] Man Sero U BetaHcg Qualon 02-21-2024 HCG.beta subunit (U) [Moles/Vol] Negative Normal [facility] Comment on above: Performed By: #### 2 [id number] #### [facility] [address] [place] [address] XR Knee 1 or 2 Views Righton 02-21-2024 XR Knee 1 or 2 Views Right Exam Date/Time: 02/21/2024 12:40 EST Reason for Exam: Post-op evaluation;Other (please specify) Report IMPRESSION: RIGHT TOTAL KNEE REPLACEMENT. CLINICAL INFORMATION: Postop. COMMENT: 2 views. There is a right total knee prosthesis, in good position and alignment. There is gas in the soft tissues from the surgery. There are metallic surgical shaunna along the anterior skin incision. Ordering Provider: Chan Khan FINAL REPORT Dictated: 02/21/2024 12:45 pm Abram Smith M.D. Signed (Electronic Signature): 02/21/2024 12:45 pm Signed by: Abram Smith M.D. Transcribed by: KANG Technologist: ADALBERTO Technical Comments Radiation Dose: Ka,r in mGy = na DAP = na Normal [facility] Inpatient Patient Summaryon 02-16-2024 Inpatient Patient Summary Inpatient Patient Summary [facility] [address] [place], [place] [address] [facility] Clinical Discharge Instructions PERSON INFORMATION Name: [facility]#:[id number] PHYSICIANS Admitting Physician: Chan Khan DO Attending Physician: Chan Khan DO PCP: ELVIE GREER CNP Discharge Diagnosis: Localized osteoarthritis of right knee Comment: PATIENT EDUCATION INFORMATION Instructions: Loren - Total Knee Arthroplasty (CUSTOM) Medication Leaflets: Follow up: With: Address: When: Chan Khan [address] [place] [address] [facility] (1) Comments: Keep scheduled appointment Type Location Start [facility] Surgery [facility] 02/21/2024 11:15 AM 02/21/2024 12:30 PM Confirmed MEDICATION LIST Medications to Continue with No Changes Other Medications albuterol (Albuterol (Eqv-ProAir HFA) 90 mcg/inh inhalation aerosol) 2 Inhalation Inhalation every 6 hours as needed Shortness of breath or wheezing. budesonide-formotero l (budesonide-formoter ol 160 mcg-4.5 mcg/inh Inh Aer w/adapter) 2 Inhalation Inhalation 2 times a day as needed Shortness of breath or wheezing. buPROPion (buPROPion 300 mg/24 hours ER Tab) 1 Tablets By Mouth every 24 hours. calcitriol (calcitriol 0.25 mcg Cap) 1 Capsules By Mouth every day. celecoxib (CeleBREX 200 mg Cap) 1 Capsules By Mouth every day. famotidine (famotidine 20 mg Tab) 1 Tablets By Mouth 2 times a day. hydrOXYzine (hydrOXYzine pamoate 25 mg Cap) 1 Capsules By Mouth 4 times a day as needed as needed for anxiety. levothyroxine (levothyroxine 75 mcg (0.075 mg) Tab) 1 Tablets By Mouth every day. montelukast (montelukast 10 mg Tab) 1 Tablets By Mouth every day. omega-3 polyunsaturated fatty acids (Fish Oil 1000 mg oral capsule) 1 Capsules By Mouth every day. pantoprazole (Pantoprazole [address] Tab) 1 Tablets By Mouth every day. potassium chloride (potassium chloride 99 mg oral tablet) 1 Tablets By Mouth every day. triamcinolone nasal (Nasacort Allergy 24HR) 1 Sprays Nasal Inhalation every day. Comment: Normal [facility] Outpatient Surgery Discharge Instructionon 02-16-2024 Outpatient Surgery Discharge Instruction Outpatient Surgery Discharge Instruction [place] [id number] Patient Discharge Instructions PERSON INFORMATION Name: WILMER NAVARRO Date of : 1985 Current Date: 02/16/2024 15:42:31 PHYSICIANS Admitting Physician: Chan Khan DO Discharge Diagnosis: Localized osteoarthritis of right knee WILMER NAVARRO has been given the following list of follow-up instructions, prescriptions, and patient education materials: PATIENT FOLLOW-UP INFORMATION Diet: Regular, Drink liquids and eat a light meal Discharge Activity: Ambulate as tolerated, Arrange for a responsible adult supervision for 24 hours, Expect mild pain, Expect minimal amount of drainage and/or bleeding, Do not lift more than 5 lbs Discharge Restrictions: No driving, Do not operate machinery or tools, Do not make important decisions for 24 hours, Do not drink alcoholic beverages for 24 hours Call Your Doctor For: Persistent or heavy bleeding, Temperature above 101.5 degrees, Redness, swelling, or pus at operative site, Severe pain at the operative site, Persistent vomiting Wound Care Instructions: Remove dressing as instructed Remove Your Dressing In 10 Days IF UNABLE TO CONTACT YOUR PHYSICIAN AND YOU FEEL IT IS AN EMERGENCY, GO TO THE NEAREST EMERGENCY ROOM OR CALL 911 GINETTE Love TIFFANY, have received the attached patient education materials/instructio ns and have verbalized understanding: May we do a follow up call? Yes No I was present when discharge instructions were given Patient Signature Date Clinican/Nurse Signature Date Follow up: With: Address: When: Chan Khan [address] [place], [place] [id number] [facility] (1) Comments: Keep scheduled appointment Type Location Start [facility] Surgery [facility] 02/21/2024 11:15 AM 02/21/2024 12:30 PM Confirmed Pharmacy Information: You may receive a survey from Matt [facility] asking you to rate your care experience. Your feedback is important and will help us understand what we do well and how we can improve the quality of care we provide to you, your loved ones and our community. It???s an honor to serve you. Thank you for choosing [facility] HERE ARE THE MEDICATION CHANGES THAT OCCURRED DURING YOUR HOSPITAL STAY Medications to Continue with No Changes Other Medications albuterol (Albuterol (Eqv-ProAir HFA) 90 mcg/inh inhalation aerosol) 2 Inhalation Inhalation every 6 hours as needed Shortness of breath or wheezing. budesonide-formotero l (budesonide-formoter ol 160 mcg-4.5 mcg/inh Inh Aer w/adapter) 2 Inhalation Inhalation 2 times a day as needed Shortness of breath or wheezing. buPROPion (buPROPion 300 mg/24 hours ER Tab) 1 Tablets By Mouth every 24 hours. calcitriol (calcitriol 0.25 mcg Cap) 1 Capsules By Mouth every day. celecoxib (CeleBREX 200 mg Cap) 1 Capsules By Mouth every day. famotidine (famotidine 20 mg Tab) 1 Tablets By Mouth 2 times a day. hydrOXYzine (hydrOXYzine pamoate 25 mg Cap) 1 Capsules By Mouth 4 times a day as needed as needed for anxiety. levothyroxine (levothyroxine 75 mcg (0.075 mg) Tab) 1 Tablets By Mouth every day. montelukast (montelukast 10 mg Tab) 1 Tablets By Mouth every day. omega-3 polyunsaturated fatty acids (Fish Oil 1000 mg oral capsule) 1 Capsules By Mouth every day. pantoprazole (Pantoprazole [address] Tab) 1 Tablets By Mouth every day. potassium chloride (potassium chloride 99 mg oral tablet) 1 Tablets By Mouth every day. triamcinolone nasal (Nasacort Allergy 24HR) 1 Sprays Nasal Inhalation every day. PATIENT EDUCATION INFORMATION Instructions: [place], [place] [facility] DISCHARGE INSTRUCTIONS TOTAL KNEE ARTHROPLASTY INCISION CARE: Mepilex dressing can get wet with showers. Please remove 10 days after surgery per instruction sheet. If shaunna present, please coordinate removal 21 days after surgery with office staff. Please notify the office if any increase in redness, tenderness, drainage, fever, or wound separation is noted beyond this point. MEDICATIONS: You may resume your home medications at the time of discharge. Aspirin 325 mg EC oral once a day for 4 weeks for blood clot prevention with meals. Please notify your doctor if you have a stomach sensitivity to Aspirin or history of previous stomach ulcers. Pain medication has been prescribed as well. You may continue to use the pain medication every four hours as needed. Any narcotic pain medication can cause side effects including stomach upset, constipation, or light-headedness. (more content not included)... Normal [facility] ABO/Rh Retypeon 01-25-2024 ABO/Rh Retype Interp Positive Invalid Interpretation Code [facility] Comment on above: Performed By: #### 1 [id number] #### [facility] [address] [place] [address] BLOOD BANKOrdered By: Donnie French on 01-25-2024 ABO/Rh Retype Interp Positive Invalid Interpretation Code [facility] BB Subsection BMPon 01-25-2024 Anion gap [Moles/Vol] 13 mmol/L Normal 6-16 [facility] Comment on above: Performed By: #### 2 [id number] #### [facility] [address] [place] [address] Calcium [Mass/Vol] 9.5 mg/dL Normal 8.9-11.1 [facility] Comment on above: Performed By: #### 2 [id number] #### [facility] [address] [place] [address] Chloride [Moles/Vol] 103 mmol/L Normal 101-111 [facility] Comment on above: Performed By: #### 2 [id number] #### [facility] [address] [place] [address] CO2 [Moles/Vol] 27 mmol/L Normal 21-31 [facility] Comment on above: Performed By: #### 2 [id number] #### [facility] [address] [place] [address] Creatinine [Mass/Vol] 0.6 mg/dL Normal 0.5-1.3 [facility] Comment on above: Performed By: #### 2 [id number] #### [facility] [address] [place] [address] Glucose [Mass/Vol] 84 mg/dL Normal 55-199 [facility] Comment on above: Performed By: #### 2 [id number] #### [facility] [address] [place] [address] Potassium [Moles/Vol] 4.0 mmol/L Normal 3.5-5.3 [facility] Comment on above: Performed By: #### 2 [id number] #### [facility] [address] [place] [address] Sodium [Moles/Vol] 139 mmol/L Normal 135-145 [facility] Comment on above: Performed By: #### 2 [id number] #### [facility] [address] [place] [address] Urea nitrogen [Mass/Vol] 12 mg/dL Normal 5-21 [facility] Comment on above: Performed By: #### 2 [id number] #### [facility] [address] [place] [address] Urea nitrogen/Creatinine [Mass ratio] 20 No Units Normal 10-20 [facility] Comment on above: Performed By: #### 2 [id number] #### [facility] [address] [place] [address] CBC w/ Auto Diffon 4 Basophils/100 WBC (Bld) 0.8 % Normal 0.0-2.0 [facility] Comment on above: Performed By: #### 2 [id number] #### [facility] [address] [place] [address] Basophils/Leukocytes Auto (Bld) [Pure # fraction] 0.1 E9/L Normal 0.0-0.2 [facility] Comment on above: Performed By: #### 2 [id number] #### [facility] [address] [place] [address] Eosinophils (Bld) [#/Vol] 0.3 E9/L Normal 0.0-0.5 [facility] Comment on above: Performed By: #### 2 [id number] #### [facility] [address] [place] [address] Eosinophils/100 WBC (Bld) 4.2 % Normal 0.0-8.0 [facility] Comment on above: Performed By: #### 2 [id number] #### [facility] [address] [place] [address] Erythrocyte distribution width (RBC) [Ratio] 13.2 % Normal 10.9-14.2 [facility] Comment on above: Performed By: #### 2 [id number] #### [facility] [address] [place] [address] Hematocrit (Bld) [Volume fraction] 39.2 % Normal 34.0-46.0 [facility] Comment on above: Performed By: #### 2 [id number] #### [facility] [address] [place] [address] Hemoglobin (Bld) [Mass/Vol] 13.6 g/dL Normal 12.0-16.0 [facility] Comment on above: Performed By: #### 2 [id number] #### [facility] [address] [place] [address] Lymphocytes (Bld) [#/Vol] 2.3 E9/L Normal 1.0-4.0 [facility] Comment on above: Performed By: #### 2 [id number] #### [facility] [address] [place] [address] Lymphocytes/100 WBC (Bld) 29.5 % Normal 14.0-50.0 [facility] Comment on above: Performed By: #### 2 [id number] #### [facility] [address] [place] [address] MCH (RBC) [Entitic mass] 30.4 pg Normal 27.0-34.0 [facility] Comment on above: Performed By: #### 2 [id number] #### [facility] [address] [place] [address] MCHC (RBC) [Mass/Vol] 34.7 g/dL Normal 31.4-36.0 [facility] Comment on above: Performed By: #### 2 [id number] #### [facility] [address] [place] [address] MCV (RBC) [Entitic vol] 87.5 fL Normal 80.0-100.0 [facility] Comment on above: Performed By: #### 2 [id number] #### [facility] [address] [place] [address] Monocytes (Bld) [#/Vol] 0.7 E9/L Normal 0.2-1.0 [facility] Comment on above: Performed By: #### 2 [id number] #### [facility] [address] [place] [address] Neutrophils (Bld) [#/Vol] 4.3 E9/L Normal 2.0-7.5 [facility] Comment on above: Performed By: #### 2 [id number] #### [facility] [address] [place] [address] Neutrophils/100 WBC (Bld) 56.6 % Normal 36.0-75.0 [facility] Comment on above: Performed By: #### 2 [id number] #### [facility] [address] [place] [address] Platelet 377.0 E9/L Normal 150.0-500.0 [facility] Comment on above: Performed By: #### 2 [id number] #### [facility] [address] [place] [address] Platelet mean volume (Bld) [Entitic vol] 7.9 fL Normal 6.4-10.8 [facility] Comment on above: Performed By: #### 2 [id number] #### [facility] [address] [place] [address] RBC (Bld) [#/Vol] 4.5 E12/L Normal 4.3-5.9 [facility] Comment on above: Performed By: #### 2 [id number] #### [facility] [address] [place] [address] WBC corrected for nucl RBC Auto (Bld) [#/Vol] 7.7 E9/L Normal 4.0-11.0 [facility] Comment on above: Performed By: #### 2 [id number] #### [facility] [address] [place] [address] CHEMISTRYOrdered By: SYSTEM SYSTEM on 01-25-2024 Anion gap [Moles/Vol] 13 mmol/L Normal 6 - 16 mEq/L [facility] Calcium [Mass/Vol] 9.5 mg/dL Normal 8.9 - 11. 1 mg/dL [facility] Chloride [Moles/Vol] 103 mmol/L Normal 101 - 1 11 mmol/L [facility] CO2 [Moles/Vol] 27 mmol/L Normal 21 - 31 mmol/L [facility] Creatinine [Mass/Vol] 0.6 mg/dL Normal 0.5 - 1.3 mg/dL [facility] eGFR 116 mL/min/1.73 m2 Normal >=59mL/mi n/ 1.73 m2 [facility] Glucose [Mass/Vol] 84 mg/dL Normal 55 - 199 mg/dL [facility] Potassium [Moles/Vol] 4.0 mmol/L Normal 3.5 - 5.3 mmol/L [facility] Sodium [Moles/Vol] 139 mmol/L Normal 135 - 145 mmol/L [facility] Urea nitrogen [Mass/Vol] 12 mg/dL Normal 5 - 21 mg/dL [facility] Urea nitrogen/Creatinine [Mass ratio] 20 mg/mg Normal 10 - 20 [facility] HEMATOLOGYOrdered By: SYSTEM SYSTEM on 01-25-2024 Basophils/100 WBC (Bld) 0.8 % Normal 0.0 - 2.0 % [facility] Basophils/Leukocytes Auto (Bld) [Pure # fraction] 0.1 E9/L Normal 0.0 - 0.2 E9/L [facility] Eosinophils (Bld) [#/Vol] 0.3 E9/L Normal 0.0 - 0.5 E9/L [facility] Eosinophils/100 WBC (Bld) 4.2 % Normal 0.0 - 8.0 % [facility] Erythrocyte distribution width (RBC) [Ratio] 13.2 % Normal 10.9 - 14.2 % [facility] Hematocrit (Bld) [Volume fraction] 39.2 % Normal 34.0 - 46.0 % [facility] Hemoglobin (Bld) [Mass/Vol] 13.6 g/dL Normal 12.0 - 16.0 gm/dL [facility] Lymphocytes (Bld) [#/Vol] 2.3 E9/L Normal 1.0 - 4.0 E9/L [facility] Lymphocytes/100 WBC (Bld) 29.5 % Normal 14.0 - 50.0 % [facility] MCH (RBC) [Entitic mass] 30.4 pg Normal 27.0 - 34.0 pg [facility] MCHC (RBC) [Mass/Vol] 34.7 g/dL Normal 31.4 - 36.0 gm/dL [facility] MCV (RBC) [Entitic vol] 87.5 fL Normal 80.0 - 100.0 fL [facility] Monocytes (Bld) [#/Vol] 0.7 E9/L Normal 0.2 - 1.0 E9/L [facility] Monocytes/100 WBC (Bld) 8.9 % Normal 4.0 - 14.0 % [facility] Neutrophils (Bld) [#/Vol] 4.3 E9/L Normal 2.0 - 7.5 E9/L [facility] Neutrophils/100 WBC (Bld) 56.6 % Normal 36.0 - 75.0 % [facility] Platelet 377.0 E9/L Normal 150.0 - 500.0 E9/L [facility] Platelet mean volume (Bld) [Entitic vol] 7.9 fL Normal 6.4 - 10.8 fL [facility] RBC (Bld) [#/Vol] 4.5 E12/L Normal 4.3 - 5.9 E12/L [facility] WBC corrected for nucl RBC Auto (Bld) [#/Vol] 7.7 E9/L Normal 4.0 - 11.0 E9/L [facility] UA WITH CULT RFLXon 01-25-20 BILIRUBIN:PRTHR:PT:URIN E:ORD:TEST STRIP.AUTOMATED Negative Negative mg/dL [facility] CLARITY:TYPE:PT:URINE:N OM: Clear Clear [facility] CLASS:TYPE:PT:URINE COLLECTION METHOD:NOM:* Clean Catch [facility] COLOR:TYPE:PT:URINE:NOM :AUTO Light-Yellow Yellow [facility] Comment on above: Microscopic readings are only performed on those samples that meet specific criteria set forth by [facility]. [facility] PH:LSCNC:PT:URINE:QN:TE ST STRIP 5.5 5.0 - 9.0 [facility] SPECIFIC GRAVITY:RDEN:PT:URINE:Q N:TEST STRIP 1.013 1.005 - 1.030 [facility] GLUCOSE:PRTHR:PT:URINE: ORD:TEST STRIP Negative Negative mg/dL [facility] HEMOGLOBIN:MCNC:PT:URIN E:SEMIQN:TEST STRIP.AUTOMATED Negative Negative mg/dL [facility] KETONES:PRTHR:PT:URINE: ORD:TEST STRIP.AUTOMATED Negative Negative mg/dL [facility] LEUKOCYTE ESTERASE:PRTHR:PT:URINE :ORD:TEST STRIP.AUTOMATED Negative Negative CD:[id number] [facility] NITRITE:PRTHR:PT:URINE: ORD:TEST STRIP.AUTOMATED Negative Negative mg/dL [facility] PROTEIN:PRTHR:PT:URINE: ORD:TEST STRIP Negative Negative mg/dL [facility] UROBILINOGEN:MCNC:PT:UR INE:SEMIQN:TEST STRIP Negative Negative mg/dL [facility] Original Ordering Provider: DO Chan Khan [facility] UA with Cult Rflxon 01-25-20 Bilirubin Ql (U) Negative Normal Negative [facility] [place] [facility] Comment on above: Performed By: #### 4 [id number] #### [facility] [address] [place] [address] Clarity (U) Clear Normal Clear [facility] Comment on above: Performed By: #### 4 [id number] #### [facility] [address] [place] [address] Color (U) Light-Yellow Normal Yellow [facility] Comment on above: Result Comment: Micr oscopic readings are only performed on those samples that meet specific criteria set forth by [facility]. Performed By: #### 4 [id number] #### [facility] [address] [place] [address] Glucose Ql (U) Negative Normal Negative [facility] Comment on above: Performed By: #### 4 [id number] #### [facility] [address] [place] [address] Hemoglobin Auto test strip (U) [Mass/Vol] Negative Normal Negative [facility] Comment on above: Performed By: #### 4 [id number] #### [facility] [address] [place] [address] Ketones Auto test strip Ql (U) Negative Normal Negative [facility] Comment on above: Performed By: #### 4 [id number] #### [facility] [address] [place] [address] Leukocyte esterase Auto test strip Ql (U) Negative Normal Negative [facility] Comment on above: Performed By: #### 4 [id number] #### [facility] [address] [place] [address] Nitrite Auto test strip Ql (U) Negative Normal Negative [facility] Comment on above: Performed By: #### 4 [id number] #### [facility] [address] [place] [address] pH (U) 5.5 [pH] Invalid Interpretation Code 5.0-9.0 [facility] Comment on above: Performed By: #### 4 [id number] #### [facility] [address] [place] [address] Protein Ql (U) Negative Normal Negative [facility] Comment on above: Performed By: #### 4 [id number] #### [facility] [address] [place] [address] Specific gravity (U) [Rel density] 1.013 Invalid Interpretation Code 1.005-1.030 [facility] Comment on above: Performed By: #### 4 [id number] #### [facility] [address] [place] [address] Urobilinogen (U) [Mass/Vol] Negative Normal Negative [facility] Comment on above: Performed By: #### 4 [id number] #### [facility] [address] [place] [address] Type of Urine collection method Clean Catch Normal [facility] Comment on above: Performed By: #### 4 [id number] #### [facility] [address] [place] [address] URINALYSISOrdered By: SYSTEM SYSTEM on 01-25-2024 Bilirubin Ql (U) Negative Normal Negativemg/ dL [facility] UA Auto SS Clarity (U) Clear (01/25/24 8:54 AM) Normal Clear [facility] UA Auto SS Color (U) Light-Yellow 1 (01/25/24 8:54 AM) Normal Yellow [facility] UA Auto SS Comment on above: Interpretive Data: M icroscopic readings are only performed on those samples that meet specific criteria set forth by [facility]. Glucose Ql (U) Negative Normal Negativemg/ dL [facility] UA Auto SS Hemoglobin Auto test strip (U) [Mass/Vol] Negative Normal Negativemg/ dL [facility] Auto SS Ketones Auto test strip Ql (U) Negative Normal Negativemg/ dL [facility] Auto SS Leukocyte esterase Auto test strip Ql (U) Negative Normal NegativeLeu /uL [facility] Auto SS Nitrite Auto test strip Ql (U) Negative Normal Negativemg/ dL [facility] UA Auto SS pH (U) 5.5 *NA* (01/25/24 8:54 AM) Invalid Interpretation Code 5.0 - 9.0 [facility] UA Auto SS Protein Ql (U) Negative Normal Negativemg/ dL [facility] UA Auto SS Specific gravity (U) [Rel density] 1.013 *NA* (01/25/24 8:54 AM) Invalid Interpretation Code 1.005 - 1.030 [facility] UA Auto SS Urobilinogen (U) [Mass/Vol] Negative Normal Negativemg/ dL [facility] UA Auto SS URINALYSISOrdered By: Juma Bonds on 01-25-2024 UA Spec Desc Clean Catch (01/25/24 8:54 AM) Normal [facility] UA Auto SS XR Chest 2 Viewson 4 XR Chest 2 Views Exam Date/Time: 01/25/2024 09:09 EST Reason for Exam: P.A.T. Report IMPRESSION: NO RADIOGRAPHIC EVIDENCE OF ACTIVE DISEASE IN THE CHEST. CLINICAL INFORMATION: P.A.T. COMPARISON: None available. FINDINGS: Two views of the chest were obtained. Heart and mediastinum appear normal. The lungs appear clear. Visualized bony thorax and remainder of the chest appears unremarkable. Ordering Provider: Mace Ahmad FINAL REPORT Dictated: 01/25/2024 10:00 am Pete Echevarria MD Signed (Electronic Signature): 01/25/2024 10:00 am Signed by: Pete Echevarria MD Transcribed by: KANG Technologist: ELISABET Technical Comments Radiation Dose: Ka,r in mGy = n/a DAP = n/a Normal [facility] eGFRon 01-25-2024 eGFR 116 mL/min/1.73 m2 Normal >=59 [facility] Comment on above: Performed By: #### 1 [id number] #### [facility] [address] [place] [address] ALL THYROID STIM HORMONEon 03-21-2023 TSH Qn 3.486 m[IU]/L [facility] ALL THYROXINE (T4) FREEon Free T4 [Mass/Vol] 0.81 ng/dL 0.76 - 1. 46 ng/dL [facility] No Panel Informationon 01-19 [facility] Alanine aminotransferase [En zymatic activity/volume] in Serum or PlasmaOrdered By: Ghassan Ramos on 12-09-2023 ALT [Catalytic activity/Vol] 11 U/L Normal 7-52 [facility] Comment on above: Performed By: #### C RP, ESR, CBC, CMP #### [facility] [address] Albumin [Mass/volume] in Ser um or Plasma by Bromocresol green (BCG) dye binding methoOrdered By: Ghassan Ramos on 12-09-2023 Albumin BCG dye [Mass/Vol] 4.3 g/dL 3.5-5.7 [facility] Alkaline phosphatase [Enzyma tic activity/volume] in Serum or PlasmaOrdered By: Ghassan Ramos on 12-09-2023 ALP [Catalytic activity/Vol] 69 U/L Normal 34-104 [facility] Comment on above: Performed By: #### C RP, ESR, CBC, CMP #### [address] Aspartate aminotransferase [ Enzymatic activity/volume] in Serum or PlasmaOrdered By: Ghassan Ramos on 12-09-2023 AST [Catalytic activity/Vol] 13 U/L Normal 13-39 [facility] Comment on above: Performed By: #### C RP, ESR, CBC, CMP #### [address] Automated basophil %Ordered By: Ghassan Ramos on 12-09-2023 Basophils/100 WBC (Bld) 0.4 % Normal . [facility] Comment on above: Performed By: #### C RP, ESR, CBC, CMP #### [address] Automated basophil countOrde red By: Ghassan Ramos on 12-09-2023 Basophils (Bld) [#/Vol] 0.0 10*3/uL Normal 0.0-0.2 [facility] Comment on above: Performed By: #### C RP, ESR, CBC, CMP #### [address] Automated blood monocyte cou ntOrdered By: Ghassan Ramos on 12-09-2023 Monocytes (Bld) [#/Vol] 0.6 10*3/uL Normal 0.0-0.8 [facility] Comment on above: Performed By: #### C RP, ESR, CBC, CMP #### [address] Automated eosinophil %Ordere d By: Ghassan Ramos on 12-09-2023 Eosinophils/100 WBC (Bld) 2.1 % Normal . [facility] Comment on above: Performed By: #### C RP, ESR, CBC, CMP #### [address] Automated eosinophil countOr dered By: Ghassan Ramos on 12-09-2023 Eosinophils (Bld) [#/Vol] 0.1 10*3/uL Normal 0.0-0.45 [facility] Comment on above: Performed By: #### C RP, ESR, CBC, CMP #### [facility] [address] Automated monocyte %Ordered By: Ghassan Ramos on 12-09-2023 Monocytes/100 WBC (Bld) 8.7 % Normal . [facility] Comment on above: Performed By: #### C RP, ESR, CBC, CMP #### [facility] [address] Automated neutrophil %Ordere d By: Ghassan Ramos on 12-09-2023 Neutrophils/100 WBC (Bld) 62.7 % Normal . [facility] Comment on above: Performed By: #### C RP, ESR, CBC, CMP #### [facility] [address] Bilirubin.total [Mass/volume ] in Serum or PlasmaOrdered By: Ghassan Ramos on 12-09-2023 Bilirubin [Mass/Vol] 0.8 mg/dL Normal 0.3-1.0 [facility] Comment on above: Performed By: #### C RP, ESR, CBC, CMP #### [address] C reactive protein [Mass/vol ume] in Serum or PlasmaOrdered By: Ghassan Ramos on 12-09-2023 CRP [Mass/Vol] 1.5 mg/dL High 0.0-0.5 [facility] C-Reactive Proteinon 024 C-Reactive Protein 1.5 mg/dL High 0.0-0.5 [facility] Comment on above: Result Comment: PERF ORMED BY: [place] [address] PATHOLOGIST RIB PULLER CARTER MARSHALL M.D. Performed By: #### C RP, ESR, CBC, CMP #### [address] Calcium [Mass/volume] in Ser um or PlasmaOrdered By: Ghassan Ramos on 12-09-2023 Calcium [Mass/Vol] 9.6 mg/dL Normal 8.6-10.3 [facility] Comment on above: Performed By: #### C RP, ESR, CBC, CMP #### [address] Carbon dioxide, total [Moles /volume] in Serum or PlasmaOrdered By: Ghassan Ramos on 12-09-2023 CO2 [Moles/Vol] 27.9 mmol/L Normal 21.0-31.[address] [facility] Comment on above: Performed By: #### C RP, ESR, CBC, CMP #### [address] Chloride [Moles/volume] in S maureen or PlasmaOrdered By: Ghassan Ramos on 12-09-2023 Chloride [Moles/Vol] 104 mmol/L Normal 98-107 [facility] Comment on above: Performed By: #### C RP, ESR, CBC, CMP #### [address] Complete Blood Count Auto Di ffon 12-09-2023 Mean Corpuscular HGB Conc 34.6 g/dL Normal 32.0-35.0 [facility] Comment on above: Performed By: #### C RP, ESR, CBC, CMP #### [address] NRBC% 0.2 /100{WBC} Normal 0-0.5 [facility] Comment on above: Performed By: #### C RP, ESR, CBC, CMP #### [address] Comprehensive Metabolic Pane tono 12-09-2023 Albumin [Mass/Vol] 4.3 g/dL Normal 3.5-5.7 [facility] Comment on above: Performed By: #### C RP, ESR, CBC, CMP #### [address] GFR/1.73 sq M.predicted MDRD (S/P/Bld) [Vol rate/Area] mL/min/{1.73_m2} Normal [facility] Comment on above: Performed By: #### C RP, ESR, CBC, CMP #### [address] Creatinine [Mass/volume] in Serum or PlasmaOrdered By: Ghassan Ramos on 12-09-2023 Creatinine [Mass/Vol] 0.57 mg/dL Low 0.60-1.20 [facility] Comment on above: Performed By: #### C RP, ESR, CBC, CMP #### [address] Erythrocyte Sedimentation Ra roxann 12-09-2023 ESR (Bld) [Velocity] 27 mm/h High 0-19 [facility] Comment on above: Result Comment: PERF ORMED BY: [place] [address] PATHOLOGIST RIB PULLER CARTER MARSHALL M.D. Performed By: #### C RP, ESR, CBC, CMP #### [address] Erythrocyte distribution wid th [Ratio] by Automated countOrdered By: Ghassan Ramos on 12-09-2023 Erythrocyte distribution width (RBC) [Ratio] 13.2 % Normal 11.9-15.3 [facility] Comment on above: Performed By: #### C RP, ESR, CBC, CMP #### [address] Erythrocyte sedimentation ra te by Photometric methodOrdered By: Ghassan Ramos on 12-09-2023 ESR Photometric method (Bld) [Velocity] 27 mm/hr High 0-19 [facility] Erythrocytes [#/volume] in B lood by Automated countOrdered By: Ghassan Ramos on 12-09-2023 RBC (Bld) [#/Vol] 4.48 10*6/uL Normal 3.60-5.00 [facility] Comment on above: Performed By: #### C RP, ESR, CBC, CMP #### [address] Glucose [Mass/volume] in Ser um or PlasmaOrdered By: Ghassan Ramos on 12-09-2023 Glucose [Mass/Vol] 90 mg/dL Normal 70-100 [facility] Comment on above: ADA recommended refe rence rangeRandom Glucose Reference Range is dependent on time and content of last meal. Glucose of more than 200 mg/dL in a nonstressed, ambulatory subject supports the diagnosis of Diabetes Mellitus. Result Comment: [place] om Glucose Reference Range is dependent on time and content of last meal. Glucose of more than 200 mg/dL in a nonstressed, ambulatory subject supports the diagnosis of Diabetes Mellitus. ADA recommended reference range Performed By: #### C RP, ESR, CBC, CMP #### [address] Hematocrit [Volume Fraction] of Blood by Automated countOrdered By: Ghassan Ramos on 12-09-2023 Hematocrit (Bld) [Volume fraction] 38.9 % Normal 34.0-46.4 [facility] Comment on above: Performed By: #### C RP, ESR, CBC, CMP #### [address] Hemoglobin [Mass/volume] in BloodOrdered By: Ghassan Ramos on 12-09-2023 Hemoglobin (Bld) [Mass/Vol] 13.5 g/dL Normal 11.8-15.4 [facility] Comment on above: Performed By: #### C RP, ESR, CBC, CMP #### [address] Leukocytes [#/volume] correc ting for nucleated erythrocytes in Blood by Automated counOrdered By: Ghassan Ramos on 12-09-2023 WBC corrected for nucl RBC Auto (Bld) [#/Vol] 7.2 10*3/uL 3.8-11.6 [facility] Leukocytes [#/volume] in Blo od by Automated countOrdered By: Ghassan Ramos on 12-09-2023 WBC (Bld) [#/Vol] 7.2 10*3/uL Normal 3.8-11.6 [facility] Comment on above: Performed By: #### C RP, ESR, CBC, CMP #### [address] [address] [place] Lymphocytes [#/volume] in Bl ood by Automated countOrdered By: Ghassan Ramos on 12-09-2023 Lymphocytes (Bld) [#/Vol] 1.9 10*3/uL Normal 1.00-4.8 [facility] Comment on above: Performed By: #### C RP, ESR, CBC, CMP #### [facility] [address] [place] [address] Lymphocytes/100 leukocytes i n Blood by Automated countOrdered By: Ghassan Ramos on 12-09-2023 Lymphocytes/100 WBC (Bld) 26.1 % Normal . [facility] Comment on above: Performed By: #### C RP, ESR, CBC, CMP #### [address] MCH [Entitic mass] by Automa ting countOrdered By: Ghassan Ramos on 12-09-2023 MCH (RBC) [Entitic mass] 30.1 pg Normal 24.7-34.3 [facility] Comment on above: Performed By: #### C RP, ESR, CBC, CMP #### [address] MCHC Auto (RBC) [Mass/Vol]Or dered By: Ghassan Ramos on 12-09-2023 MCHC (RBC) [Mass/Vol] 34.6 g/dL 32.0-35.0 [facility] MCV [Entitic volume] by Auto mated countOrdered By: Ghassan Ramos on 12-09-2023 MCV (RBC) [Entitic vol] 86.9 fL Normal 80-100 [facility] Comment on above: Performed By: #### C RP, ESR, CBC, CMP #### [facility] [address] [place] [address] Neutrophils [#/volume] in Bl ood by Automated countOrdered By: Ghassan Ramos on 12-09-2023 Neutrophils (Bld) [#/Vol] 4.5 10*3/uL Normal 1.8-7.7 [facility] Comment on above: Performed By: #### C RP, ESR, CBC, CMP #### [address] No Panel InformationOrdered By: Ghassan Ramos on 12-09-2023 Estimated GFR (CKD-EPI) > 60.0 mL/Min [facility] Creatinine Clearance (Chem N/A [facility] Nucleated erythrocytes [Pres ence] in Blood by Automated countOrdered By: Ghassan Ramos on 12-09-2023 Nucleated RBC Auto Ql (Bld) 0.2 /100{WBC} 0-0.5 [facility] Platelet mean volume [Entiti c volume] in Blood by Automated countOrdered By: Ghassan Ramos on 12-09-2023 Platelet mean volume (Bld) [Entitic vol] 8.5 fL Normal 6.3-10.7 [facility] Comment on above: Performed By: #### C RP, ESR, CBC, CMP #### [place] [address] [place] Platelets [#/volume] in Bloo d by Automated countOrdered By: Ghassan Ramos on 12-09-2023 Platelets (Bld) [#/Vol] 349 10*3/uL Normal 150-450 [facility] Comment on above: Performed By: #### C RP, ESR, CBC, CMP #### [address] Potassium [Moles/volume] in Serum or PlasmaOrdered By: Ghassan Ramos on 12-09-2023 Potassium [Moles/Vol] 4.4 mmol/L Normal 3.5-5.1 [facility] Comment on above: Performed By: #### C RP, ESR, CBC, CMP #### [place] [address] [place] Protein [Mass/volume] in Ser um or PlasmaOrdered By: Ghassan Ramos on 12-09-2023 Protein [Mass/Vol] 6.8 g/dL Normal 6.4-8.9 [facility] Comment on above: Performed By: #### C RP, ESR, CBC, CMP #### [place] [address] [place] Serum globulin measurement b y calculation (mass/volume)Ordered By: Ghassan Ramos on 12-09-2023 Globulin (S) [Mass/Vol] 2.5 g/dL Normal F [facility] Comment on above: Performed By: #### C RP, ESR, CBC, CMP #### [address] Serum or plasma albumin/glob ulin mass ratioOrdered By: Ghassan Ramos on 12-09-2023 Albumin/Globulin [Mass ratio] 1.7 {ratio} Normal [facility] Comment on above: Performed By: #### C RP, ESR, CBC, CMP #### [address] Serum or plasma anion gap de terminationOrdered By: Ghassan Ramos on 12-09-2023 Anion gap [Moles/Vol] 10.5 mmol/L Normal 6.0-15.0 [facility] Comment on above: Performed By: #### C RP, ESR, CBC, CMP #### [address] Sodium [Moles/volume] in Ser um or PlasmaOrdered By: Ghassan Ramos on 12-09-2023 Sodium [Moles/Vol] 138 mmol/L Normal 136-145 [facility] Comment on above: Performed By: #### C RP, ESR, CBC, CMP #### [address] Urea nitrogen [Mass/volume] in Serum or PlasmaOrdered By: Ghassan Ramos on 12-09-2023 Urea nitrogen [Mass/Vol] 16 mg/dL Normal 7-25 [facility] Comment on above: Performed By: #### C RP, ESR, CBC, CMP #### [address] ALL THYROID STIM HORMONEon 0 11-09-2023 Interpretation and review of laboratory results Abnormal [facility] TSH Qn 3.894 m[IU]/L High [facility] COVID + FLU Quick Testingon 02-26-2023 SARS-CoV-2 (COVID-19) RNA LIANNE+probe Ql (Unsp spec) Positive [facility] [employer] Other COVID + FLU Quick Testing Negative [employer] [facility] [employer] Other CBC AUTO DIFFon 05-28-2022 BASO # 0.0 103/ul Normal 0.0-0.1 [facility] Comment on above: Performed By: #### C BC #### [facility] [address] [place] [address] Dr. Tracey Mccoy Basophils/100 WBC (Bld) 0.3 % Normal 0.2-2.0 [facility] Comment on above: Performed By: #### C BC #### [facility] [address] [place] [address] Dr. Tracey Mccoy EO # 0.2 103/ul Normal 0.0-0.7 [facility] Comment on above: Performed By: #### C BC #### [facility] [address] [place] [address] Dr. Tracey Mccoy Eosinophils/100 WBC (Bld) 1.7 % Normal 0.9-7.0 [facility] Comment on above: Performed By: #### C BC #### [facility] [address] [place] [address] Dr. Tracey Mccoy Erythrocyte distribution width (RBC) [Ratio] 12.4 % Normal 11.0-15.0 [facility] Comment on above: Performed By: #### C BC #### [facility] [address] [place] [address] Dr. Tracey Mccoy Hematocrit (Bld) [Volume fraction] 36.2 % Normal 36.0-48.0 [facility] Comment on above: Performed By: #### C BC #### [facility] [address] [place] [address] Dr. Tracey Mccoy Hemoglobin (Bld) [Mass/Vol] 12.2 g/dL Normal 12.0-16.0 [facility] Comment on above: Performed By: #### C BC #### [facility] [address] [place] [address] Dr. Tracey Mccoy IG # 0.05 10e3/ul Critically high 0.00-0.03 [facility] Comment on above: Performed By: #### C BC #### [facility] [address] [place] [address] Dr. Tracey Mccoy IG % 0.5 % Normal 0.0-0.5 [facility] Comment on above: Performed By: #### C BC #### [facility] [address] [place] [address] Dr. Tracey Mccoy LYMPH # 2.3 103/ul Normal 1.2-3.8 [facility] Comment on above: Performed By: #### C BC #### [facility] [address] [place] [address] Dr. Tracey Mccoy Lymphocytes/100 WBC (Bld) 25.6 % Normal 20.5-60.0 [facility] Comment on above: Performed By: #### C BC #### [facility] [address] [place] [address] Dr. Tracey Mccoy MANUAL DIFF REQ NO Normal [facility] Comment on above: Performed By: #### C BC #### [facility] [address] [place] [address] Dr. Tracey Mccoy MCH (RBC) [Entitic mass] 29.0 pg Normal 26.7-34.0 [facility] Comment on above: Performed By: #### C BC #### [facility] [address] [place] [address] Dr. Tracey Mccoy MCHC (RBC) [Mass/Vol] 33.7 g/dL Normal 29.9-35.2 [facility] Comment on above: Performed By: #### C BC #### [facility] [address] [place] [address] Dr. Tracey Mccoy MCV (RBC) [Entitic vol] 86.0 fL Normal 81.0-99.0 [facility] Comment on above: Performed By: #### C BC #### [facility] [address] [place] [address] Dr. Tracey Mccoy MONO # 0.7 103/ul Normal 0.3-0.8 [facility] Comment on above: Performed By: #### C BC #### [facility] [address] [place] [address] Dr. Tracey Mccoy Monocytes/100 WBC (Bld) 7.7 % Normal 1.7-12.0 [facility] Comment on above: Performed By: #### C BC #### [facility] [address] [place] [address] Dr. Tracey Mccoy NEUT # 5.9 103/ul Normal 1.4-6.5 [facility] Comment on above: Performed By: #### C BC #### [facility] [address] [place] [address] Dr. Tracey Mccoy Neutrophils/100 WBC (Bld) 64.2 % Normal 43.0-75.0 [facility] Comment on above: Performed By: #### C BC #### [facility] [address] [place] [address] Dr. Tracey Mccoy Platelet mean volume (Bld) [Entitic vol] 9.5 fL Normal 9.5-13.5 [facility] Comment on above: Performed By: #### C BC #### [facility] [address] [place] [address] Dr. Tracey Mccoy PLT 348 103/ul Normal 150-450 [facility] Comment on above: Performed By: #### C BC #### [facility] [address] [place] [address] Dr. Tracey Mccoy RBC 4.21 106/ul Normal 4.20-5.40 [facility] Comment on above: Performed By: #### C BC #### [facility] [address] [place] [address] Dr. Tracey Mccoy WBC 9.2 103/ul Normal 4.0-11.0 [facility] Comment on above: Performed By: #### C BC #### [facility] [address] [place] [address] Dr. Tracey Mccoy FERRITINon 05-28-2022 Ferritin [Mass/Vol] 15.0 ng/mL Normal 6.2-137.0 [facility] Comment on above: Performed By: #### F ERR #### [facility] [address] [place] [address] Dr. Tracey Mccoy MAGNESIUMon 05-28-2022 Magnesium [Mass/Vol] 1.7 mg/dL Critically low 1.8-2.4 [facility] Comment on above: Performed By: #### M G, CMP #### [facility] [address] [place] [address] Dr. Tracey Mccoy PROF 14(COMP METB)on 023 Albumin [Mass/Vol] 3.7 g/dL Normal 3.4-5.0 [facility] Comment on above: Performed By: #### M G, CMP #### [facility] [address] [place] [address] Dr. Tracey Mccoy Albumin/Globulin [Mass ratio] 1.0 {ratio} Normal [facility] Comment on above: Performed By: #### M G, CMP #### [facility] [address] [place] [address] Dr. Tracey Mccoy ALP [Catalytic activity/Vol] 89 U/L Normal 46-116 [facility] Comment on above: Performed By: #### M G, CMP #### [facility] [address] [place] [address] Dr. Tracey Mccoy ALT [Catalytic activity/Vol] 26 U/L Normal 14-59 [facility] Comment on above: Performed By: #### M G, CMP #### [facility] [address] [place] [address] Dr. Tracey Mccoy Anion gap [Moles/Vol] 13.2 mmol/L Normal [facility] Comment on above: Performed By: #### M G, CMP #### [facility] [address] [place] [address] Dr. Tracey Mccoy AST [Catalytic activity/Vol] 19 U/L Normal 15-37 [facility] Comment on above: Performed By: #### M G, CMP #### [facility] [address] [place] [address] Dr. Tracey Mccoy Bilirubin [Mass/Vol] 0.6 mg/dL Normal 0.2-1.0 [facility] Comment on above: Performed By: #### M G, CMP #### [facility] [address] [place] [address] Dr. Tracey Mccoy Calcium [Mass/Vol] 9.2 mg/dL Normal 8.5-10.1 [facility] Comment on above: Performed By: #### M G, CMP #### [facility] [address] [place] [address] Dr. Tracey Mccoy Chloride [Moles/Vol] 101 mmol/L Normal 98-107 [facility] Comment on above: Performed By: #### M G, CMP #### [facility] [address] [place] [address] Dr. Tracey Mccoy CO2 [Moles/Vol] 26.9 mmol/L Normal 21.0-32.0 [facility] Comment on above: Performed By: #### Jama G, CMP #### [facility] [address] [place] [address] Dr. Tracey Mccoy Creatinine [Mass/Vol] 0.47 mg/dL Critically low 0.55-1.02 [facility] Comment on above: Performed By: #### M G, CMP #### [facility] [address] [place] [address] Dr. Tracey Mccoy EGFR-AF GUINEAN >60 Normal >=60 [facility] Comment on above: Performed By: #### M G, CMP #### [facility] [address] [place] [address] Dr. Tracey Mccoy EGFR-NON AF GUINEAN >60 Normal >=60 [facility] Comment on above: Performed By: #### M G, CMP #### [facility] [address] [place] [address] Dr. Tracey Mccoy Globulin (S) [Mass/Vol] 3.6 g/dL Normal T [facility] Comment on above: Performed By: #### M G, CMP #### [facility] [address] [place] [address] Dr. Tracey Mccoy Glucose [Mass/Vol] 88 mg/dL Normal 74-106 [facility] Comment on above: Performed By: #### M G, CMP #### [facility] [address] [place] [address] Dr. Tracey Mccoy Potassium [Moles/Vol] 4.1 mmol/L Normal 3.5-5.1 [facility] Comment on above: Performed By: #### M G, CMP #### [facility] [address] [place] [address] Dr. Tracey Mccoy Protein [Mass/Vol] 7.3 g/dL Normal 6.4-8.2 [facility] Comment on above: Performed By: #### Jama Palafox, CMP #### [facility] [address] [place] [address] Dr. Tracey Mccoy Sodium [Moles/Vol] 137 mmol/L Normal 136-145 [facility] Comment on above: Performed By: #### Jama Palafox, CMP #### [facility] [address] [place] [address] Dr. Tracey Mccoy Urea nitrogen [Mass/Vol] 5.0 mg/dL Critically low 7.0-18.0 [facility] Comment on above: Performed By: #### Jama Palafox, CMP #### [facility] [address] [place] [address] Dr. Tracey Mccoy Urea nitrogen/Creatinine [Mass ratio] 10.6 mg/mg Normal [facility] Comment on above: Performed By: #### Jama Palafox, CMP #### [facility] [address] [place] [address] Dr. Tracey Mccoy PAP ACOG PANEL 2: 30 to 65on 05-14-2022 . . Normal [facility] Comment on above: Result Comment: Perf ormed at: WB Performed By: #### [id number] #### [facility] [address] [place] [address] Dr. Tracey Mccoy Age Gdln ACOG Testing 30-65 Normal [facility] Comment on above: Performed By: #### [id number] #### [facility] [address] [place] [address] Dr. Tracey Mccoy DIAGNOSIS: Comment Normal [facility] Comment on above: Result Comment: NEGA TIVE FOR INTRAEPITHELIAL LESION OR MALIGNANCY. Performed at: WB Performed By: #### [id number] #### [facility] [address] [place] [address] Dr. Tracey Mccoy HPV Aptima Negative Normal Negative [facility] Comment on above: Result Comment: This nucleic acid amplification test detects fourteen high-risk HPV types (16,18,31,33,35,39,45,51,52,56,58,59,66,68) without differentiation. Performed at: =G Performed By: #### [id number] #### [facility] [address] [place] [address] Dr. Tracey Mccoy HPV Genotype Reflex Comment Normal [facility] Comment on above: Result Comment: Crit eria not met, HPV Genotype not performed. Performed at: WB Performed By: #### [id number] #### [facility] [address] [place] [address] Dr. Tracey Mccoy Methodology: Comment Normal [facility] Comment on above: Result Comment: This liquid based ThinPrep(R) pap test was screened with the use of an image guided system. Performed at: WB Performed By: #### [id number] #### [facility] [address] [place] [address] Dr. Tracey Mccoy Note: Comment Normal [facility] Comment on above: Result Comment: The Pap smear is a screening test designed to aid in the detection of premalignant and malignant conditions of the uterine cervix. It is not a diagnostic procedure and should not be used as the sole means of detecting cervical cancer. Both false-positive and false-negative reports do occur. . Performed at: WB Performed By: #### [id number] #### [facility] [address] [place] [address] Dr. Tracey Mccoy Performed by: Comment Normal [facility] Comment on above: Result Comment: Daysi Cheema, Wharf Labourer Performed at: WB Performed By: #### [id number] #### [facility] [address] [place] [address] Dr. Tracey Mccoy Specimen adequacy: Comment Normal [facility] Comment on above: Result Comment: Sati sfactory for evaluation. Endocervical and/or squamous metaplastic cells (endocervical component) are present. Performed at: WB Performed By: #### [id number] #### [facility] [address] [place] [address] Dr. Tracey Mccoy BNPon 02-23-2022 Natriuretic peptide B (Bld) [Mass/Vol] 37.0 pg/mL Normal <=450.0 [facility] Comment on above: Performed By: #### B [employer] #### [facility] [address] [place] [address] Dr. Tracey Mccoy CBC AUTO DIFFon 02-23-2022 BASO # 0.0 103/ul Normal 0.0-0.1 [facility] Comment on above: Performed By: #### C BC #### [facility] [address] [place] [address] Dr. Tracey Mccoy Basophils/100 WBC (Bld) 0.3 % Normal 0.2-2.0 [facility] Comment on above: Performed By: #### C BC #### [facility] [address] [place] [address] Dr. Tracey Mccoy EO # 0.0 103/ul Normal 0.0-0.7 [facility] Comment on above: Performed By: #### C BC #### [facility] [address] [place] [address] Dr. Tracey Mccoy Eosinophils/100 WBC (Bld) 0.3 % Critically low 0.9-7.0 [facility] Comment on above: Performed By: #### C BC #### [facility] [address] [place] [address] Dr. Tracey Mccoy Erythrocyte distribution width (RBC) [Ratio] 12.9 % Normal 11.0-15.0 [facility] Comment on above: Performed By: #### C BC #### [facility] [address] [place] [address] Dr. Tracey Mccoy Hematocrit (Bld) [Volume fraction] 37.5 % Normal 36.0-48.0 [facility] Comment on above: Performed By: #### C BC #### [facility] [address] [place] [address] Dr. Tracey Mccoy Hemoglobin (Bld) [Mass/Vol] 12.1 g/dL Normal 12.0-16.0 [facility] Comment on above: Performed By: #### C BC #### [facility] [address] [place] [address] Dr. Tracey Mccoy IG # 0.02 10e3/ul Normal 0.00-0.03 [facility] Comment on above: Performed By: #### C BC #### [facility] [address] [place] [address] Dr. Tracey Mccoy IG % 0.3 % Normal 0.0-0.5 [facility] Comment on above: Performed By: #### C BC #### [facility] [address] [place] [address] Dr. Tracey Mccoy LYMPH # 2.0 103/ul Normal 1.2-3.8 [facility] Comment on above: Performed By: #### C BC #### [facility] [address] [place] [address] Dr. Tracey Mccoy Lymphocytes/100 WBC (Bld) 28.4 % Normal 20.5-60.0 [facility] Comment on above: Performed By: #### C BC #### [facility] [address] [place] [address] Dr. Tracey Mccoy MANUAL DIFF REQ NO Normal [facility] Comment on above: Performed By: #### C BC #### [facility] [address] [place] [address] Dr. Tracey Mccoy MCH (RBC) [Entitic mass] 28.5 pg Normal 26.7-34.0 [facility] Comment on above: Performed By: #### C BC #### [facility] [address] [place] [address] Dr. Tracey Mccoy MCHC (RBC) [Mass/Vol] 32.3 g/dL Normal 29.9-35.2 [facility] Comment on above: Performed By: #### C BC #### [facility] [address] [address] [address] Tracey Mccoy MCV (RBC) [Entitic vol] 88.4 fL Normal 81.0-99.0 [facility] Comment on above: Performed By: #### C BC #### [facility] [address] [address] [address] Tracey Mccoy MONO # 0.5 103/ul Normal 0.3-0.8 [facility] Comment on above: Performed By: #### C BC #### [facility] [address] [address] [address] Tracey Mccoy Monocytes/100 WBC (Bld) 7.7 % Normal 1.7-12.0 [facility] Comment on above: Performed By: #### C BC #### [facility] [address] [place] [address] Dr. Tracey Mccoy NEUT # 4.4 103/ul Normal 1.4-6.5 [facility] Comment on above: Performed By: #### C BC #### [facility] [address] [place] [address] Dr. Tracey Mccoy Neutrophils/100 WBC (Bld) 63.0 % Normal 43.0-75.0 [facility] Comment on above: Performed By: #### C BC #### [facility] [address] [place] [address] Dr. Tracey Mccoy Platelet mean volume (Bld) [Entitic vol] 9.2 fL Critically low 9.5-13.5 [facility] Comment on above: Performed By: #### C BC #### [facility] [address] [address] [address] Tracey Mccoy PLT 278 103/ul Normal 150-450 [facility] Comment on above: Performed By: #### C BC #### [facility] [address] [address] [address] Tracey Mccoy RBC 4.24 106/ul Normal 4.20-5.40 [facility] Comment on above: Performed By: #### C BC #### [facility] [address] [address] [address] Tracey Mccoy WBC 6.9 103/ul Normal 4.0-11.0 [facility] Comment on above: Performed By: #### C BC #### [facility] [address] [address] [address] Tracey Mccoy PROF 14(COMP METB)on 022 Albumin [Mass/Vol] 3.7 g/dL Normal 3.4-5.0 [facility] Comment on above: Performed By: #### C MP, HSTROPN #### [facility] [address] [address] [address] Tracey Mccoy Albumin/Globulin [Mass ratio] 0.9 {ratio} Normal [facility] Comment on above: Performed By: #### C MP, HSTROPN #### [facility] [address] [address] [address] Tracey Mccoy ALP [Catalytic activity/Vol] 103 U/L Normal 46-116 [facility] Comment on above: Performed By: #### C MP, HSTROPN #### [facility] [address] [address] [address] Tracey Mccoy ALT [Catalytic activity/Vol] 67 U/L Critically high 14-59 [facility] Comment on above: Performed By: #### C MP, HSTROPN #### [facility] [address] [address] [address] Tracey Mccoy Anion gap [Moles/Vol] 9.6 mmol/L Normal [facility] Comment on above: Performed By: #### C MP, HSTROPN #### [facility] [address] [address] [address] Tracey Mccoy AST [Catalytic activity/Vol] 100 U/L Critically high 15-37 [facility] Comment on above: Performed By: #### C MP, HSTROPN #### [facility] [address] [address] [address] Tracey Mccoy Bilirubin [Mass/Vol] 0.4 mg/dL Normal 0.2-1.0 [facility] Comment on above: Performed By: #### C MP, HSTROPN #### [facility] [address] [address] [address] Tracey Mccoy Calcium [Mass/Vol] 8.8 mg/dL Normal 8.5-10.1 [facility] Comment on above: Performed By: #### C MP, HSTROPN #### [facility] [address] [place] [address] Dr. Tracey Mccoy Chloride [Moles/Vol] 104 mmol/L Normal 98-107 [facility] Comment on above: Performed By: #### C MP, HSTROPN #### [facility] [address] [place] [address] Dr. Tracey Mccoy CO2 [Moles/Vol] 28.5 mmol/L Normal 21.0-32.0 [facility] Comment on above: Performed By: #### C MP, HSTROPN #### [facility] [address] [place] [address] Dr. Trcaey Mccoy Creatinine [Mass/Vol] 0.71 mg/dL Normal 0.55-1.02 [facility] Comment on above: Performed By: #### C MP, HSTROPN #### [facility] [address] [place] [address] Dr. Tracey Mccoy EGFR-AF GUINEAN >60 Normal >=60 [facility] Comment on above: Performed By: #### C MP, HSTROPN #### [facility] [address] [place] [address] Dr. Tracey Mccoy EGFR-NON AF GUINEAN >60 Normal >=60 [facility] Comment on above: Performed By: #### C MP, HSTROPN #### [facility] [address] [place] [address] Dr. Tracey Mccoy Globulin (S) [Mass/Vol] 3.9 g/dL Normal T [facility] Comment on above: Performed By: #### C MP, HSTROPN #### [facility] [address] [place] [address] Dr. Tracey Mccoy Glucose [Mass/Vol] 113 mg/dL Critically high 74-106 T [facility] Comment on above: Performed By: #### C MP, HSTROPN #### [facility] [address] [address] [address] Tracey Mccoy Potassium [Moles/Vol] 3.1 mmol/L Critically low 3.5-5.1 [facility] Comment on above: Performed By: #### C MP, HSTROPN #### [facility] [address] [address] [address] Tracey Mccoy Protein [Mass/Vol] 7.6 g/dL Normal 6.4-8.2 [facility] Comment on above: Performed By: #### C MP, HSTROPN #### [facility] [address] [place] [address] Dr. Tracey Mccoy Sodium [Moles/Vol] 139 mmol/L Normal 136-145 [facility] Comment on above: Performed By: #### C MP, HSTROPN #### [facility] [address] [address] [address] Tracey Mccoy Urea nitrogen [Mass/Vol] 9.0 mg/dL Normal 7.0-18.0 [facility] Comment on above: Performed By: #### C MP, HSTROPN #### [facility] [address] [place] [address] Dr. Tracey Mccoy Urea nitrogen/Creatinine [Mass ratio] 12.7 mg/mg Normal [facility] Comment on above: Performed By: #### C MP, HSTROPN #### [facility] [address] [place] [address] Dr. Tracey Mccoy TROPONIN, HIGH SENSITIVITYon 02-23-2022 HSTROP 5.8 pg/mL Normal 4.0-51.3 [facility] Comment on above: Result Comment: CUT- OFF POINTS HAVE BEEN ESTABLISHED BASED ON THE FOURTH UNIVERSAL DEFINITIONS OF MYOCARDIAL INFARCTION. THE UPPER REFERENCE LIMIT (URL) OF TROPONIN, DEFINED THE 99TH PERCENTILE OF cTnI DISTRIBUTION IN A REFERENCE POPULATION, HAS BEEN CONFIRMED THE DECISION THRESHOLD FOR [facility] DIAGNOSIS. Performed By: #### C MP, HSTROPN #### [facility] [address] [address] [address] Tracey Mccoy XR CHEST 1 Von [...] CHAN RICHEY Date: 2022-02-23 03:04 Normal [facility] Vital Signs Date Time Vital Sign Value Performing Clinician Facility 03-23-2024 14:45-0500 Body height 167.6 cm Chan Khan revoPT Work Phone: [facility] 03-23-2024 14:45-0500 Body mass index (BMI) [Ratio] 47.78 kg/m2 Chan Khan revoPT Work Phone: [facility] 03-23-2024 14:45-0500 Body weight 134.26 kg Chan Khan revoPT Work Phone: [facility] 02-21-2024 16:57-0500 Heart rate 80 /min Chan Khan [facility] 02-21-2024 16:57-0500 SaO2% (BldA) [Mass fraction] 99 % Chan [employer] [facility] 02-21-2024 16:56-0500 Blood Pressure Location Chan [employer] [facility] 02-21-2024 16:56-0500 Diastolic blood pressure 79 mm[Hg] Chan [employer] [facility] 02-21-2024 16:56-0500 Mean blood pressure 92 mm[Hg] Chan Khan [facility] 02-21-2024 16:56-0500 Systolic blood pressure 119 mm[Hg] Chan Loren [facility] 02-21-2024 16:56-0500 Respiratory rate 16 /min Chan Khan [facility] 02-21-2024 16:13-0500 Heart rate 60 /min Chan Loren [facility] 02-21-2024 16:13-0500 SaO2% (BldA) [Mass fraction] 98 % Chan Loren [facility] 02-21-2024 16:13-0500 Respiratory rate 18 /min Chan Loren [facility] 02-21-2024 16:13-0500 Blood Pressure Location Chan Loren [facility] 02-21-2024 16:13-0500 Diastolic blood pressure 69 mm[Hg] Chan Loren [facility] 02-21-2024 16:13-0500 Mean blood pressure 82 mm[Hg] Chan Loren [facility] 02-21-2024 16:13-0500 Systolic blood pressure 108 mm[Hg] Chan Loren [facility] 02-21-2024 13:38-0500 Heart rate 78 /min Chan Khan [facility] 02-21-2024 13:38-0500 SaO2% (BldA) [Mass fraction] 100 % Chan Khan [facility] 02-21-2024 13:37-0500 Blood Pressure Location Chan Khan [facility] 02-21-2024 13:37-0500 Diastolic blood pressure 74 mm[Hg] Chan Khan [facility] 02-21-2024 13:37-0500 Mean blood pressure 86 mm[Hg] Chan Khan [facility] 02-21-2024 13:37-0500 Systolic blood pressure 111 mm[Hg] Chan Loren [facility] 02-21-2024 13:37-0500 Respiratory rate 16 /min Chan Khan [facility] 02-21-2024 13:30-0500 Body temperature 96.8 [degF] Chan Loren [facility] 02-21-2024 13:30-0500 Respiratory rate 13 /min Chan Loren [facility] 02-21-2024 13:25-0500 Respiratory rate 17 /min Chan Khan [facility] 02-21-2024 13:10-0500 Respiratory rate 20 /min Chan Khan [facility] 02-21-2024 12:27-0500 Body temperature 97.16 [degF] Chan Loren [facility] 02-21-2024 08:25-0500 Body temperature 97.7 [degF] Chan Loren [facility] 02-08-2024 08:27-0500 Body height 167.6 cm Elvie Greer [employer] Work Phone: [facility] 02-08-2024 08:27-0500 Body mass index (BMI) [Ratio] 47.81 kg/m2 Elvie Greer [employer]OR Work Phone: [facility] 02-08-2024 08:27-0500 Body temperature 98.6 [degF] Elvie Greer [employer]OR Work Phone: [facility] 02-08-2024 08:27-0500 Body weight 134.35 kg Elvie Aichholz [employer]OR Work Phone: [facility] 02-08-2024 08:27-0500 Diastolic blood pressure 88 mm[Hg] Elvie Aichholz [employer]OR Work Phone: [facility] 02-08-2024 08:27-0500 Heart rate 89 /min Elvie Aichholz [employer]OR Work Phone: [facility] 02-08-2024 08:27-0500 Respiratory rate 20 /min Elvie Aichholz [employer]OR Work Phone: [facility] 02-08-2024 08:27-0500 SaO2% (BldA) [Mass fraction] 98 % Elvie Aichholz [employer]OR Work Phone: [facility] 02-08-2024 08:27-0500 Systolic blood pressure 120 mm[Hg] Elvie Aichholz [employer]OR Work Phone: [facility] 01-25-2024 08:41-0500 Diastolic blood pressure 80 mm[Hg] Chan Khan [facility] 01-25-2024 08:41-0500 Heart rate 78 /min Chan Khan [facility] 01-25-2024 08:41-0500 Mean blood pressure 98 mm[Hg] Chan Khan [facility] 01-25-2024 08:41-0500 Systolic blood pressure 134 mm[Hg] Chan Khan [facility] 01-25-2024 08:41-0500 Body temperature 97.88 [degF] Chan Khan [facility] 01-25-2024 08:41-0500 Respiratory rate 17 /min Chan Khan [facility] 01-25-2024 08:40-0500 Heart rate 76 /min Chan Khan [facility] 01-25-2024 08:40-0500 SaO2% (BldA) [Mass fraction] 100 % Chan Khan [facility] 01-25-2024 08:40-0500 Diastolic blood pressure 80 mm[Hg] Chan Khan [facility] 01-25-2024 08:40-0500 Mean blood pressure 95 mm[Hg] Chan Khna [facility] 01-25-2024 08:40-0500 Systolic blood pressure 127 mm[Hg] Chan Khan [facility] 01-13-2024 15:18-0500 Body height 167.6 cm Chan Khan DO Work Phone: [facility] 01-13-2024 15:18-0500 Body mass index (BMI) [Ratio] 48.1 kg/m2 Chan Loren ARELLANO Work Phone: [facility] 01-13-2024 15:18-0500 Body weight 135.17 kg Chan Khan DO Work Phone: [facility] 11-26-2023 10:57-0400 Body height 165.1 cm [facility] 11-26-2023 10:57-0400 Body mass index (BMI) [Ratio] 51.1 kg/m2 [facility] 11-26-2023 10:57-0400 Body temperature 97.8 [degF] [facility] 11-26-2023 10:57-0400 Body weight 139.47 kg [facility] 11-26-2023 10:57-0400 Diastolic blood pressure 86 mm[Hg] [facility] 11-26-2023 10:57-0400 Heart rate 98 /min [facility] 11-26-2023 10:57-0400 Respiratory rate 16 /min [facility] 11-26-2023 10:57-0400 SaO2% (BldA) [Mass fraction] 99 % [facility] 11-26-2023 10:57-0400 Systolic blood pressure 129 mm[Hg] [facility] 11-09-2023 14:04-0400 Body mass index (BMI) [Ratio] 51.62 kg/m2 Elvie Flowerz [employer] Work Phone: [facility] 11-09-2023 14:04-0400 Body temperature 97.81 [degF] Elvie Riosholz [employer]OR Work Phone: [facility] 11-09-2023 14:04-0400 Body weight 140.71 kg Elviecruzito Riosholz [employer]OR Work Phone: [facility] 11-09-2023 14:04-0400 Diastolic blood pressure 86 mm[Hg] Elvie Gabrielholz [employer]OR Work Phone: [facility] 11-09-2023 14:04-0400 Heart rate 84 /min Elvie Gabrielholz [employer]OR Work Phone: [facility] 11-09-2023 14:04-0400 SaO2% (BldA) [Mass fraction] 100 % Elvie Gabrielholz [employer]OR Work Phone: [facility] 11-09-2023 14:04-0400 Systolic blood pressure 128 mm[Hg] Elvie Gabrielholz [employer]OR Work Phone: [facility] 02-26-2023 09:45-0500 Body height 157.48 cm Mary Jo Thibodeaux Other [employer] Other 02-26-2023 09:45-0500 Body mass index (BMI) [Ratio] 57.13 kg/m2 Mary Jo Thibodeaux Other [employer] Other 02-26-2023 09:45-0500 Body temperature 97.2 [degF] Mary Jo Thibodeaux Other [employer] Other 02-26-2023 09:45-0500 Body weight 141.7 kg Mary Jo Thibodeaux Other [employer] Other 02-26-2023 09:45-0500 Diastolic blood pressure 86 mm[Hg] Mary Jo Chunmond Other [employer] Other 02-26-2023 09:45-0500 Respiratory rate 18 /min Mary Jo Morelia Other [employer] Other 02-26-2023 09:45-0500 SaO2% (BldA) [Mass fraction] 98 % Mary Jo Chunmond Other [employer] Other 02-26-2023 09:45-0500 Systolic blood pressure 136 mm[Hg] Mary Jo Morelia Other [employer] Other Encounters Encounter Date Encounter Type Care Provider Facility Start: 04-12-2024 End: 04-12-2024 Admission to same day surgery center Elis Duvall [employer] PERSON[employer]EL SPECIALIST [facility] Comment on above: Acute postoperative pain of right knee (Primary Dx); Status post right knee replacement; Difficulty walking; Aftercare following right knee joint replacement surgery Start: 04-12-2024 End: 04-12-2024 ambulatory Elsi Duvall [employer] PERSONNEL SPECIALIST [facility] Start: 04-12-2024 End: 04-12-2024 Bamboo flowsheet Elis Duvall MILITARY PERSONNEL SPECIALIST [facility] Start: 04-12-2024 End: 04-12-2024 Bamboo flowsheet Elis Duvall MILITARY PERSONNEL SPECIALIST [facility] Start: 04-10-2024 End: 04-10-2024 Bamboo flowsheet Kylee Fernandez PT [facility] Start: 04-10-2024 End: 04-10-2024 Bamboo flowsheet Kylee Fernandez PT [facility] Start: 04-10-2024 End: 04-10-2024 ambulatory Kylee Fernandez PT [facility] Comment on above: Arthritis of knee, r ight (Primary Dx); Acute postoperative pain of right knee; Status post right knee replacement Start: 04-05-2024 End: 04-06-2024 ambulatory Sumeet Carter MILITARY PERSONNEL SPECIALIST [facility] Comment on above: Arthritis of knee, r ight (Primary Dx); Acute postoperative pain of right knee; Status post right knee replacement; Difficulty walking Start: 04-05-2024 End: 04-05-2024 Refill Elvie Greer [employer] Work Phone: [facility] Comment on above: Moderate persistent asthma, uncomplicated (CMS/HCC); 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CMS/HCC); Anxiety and depression (CMS/HCC) Start: 04-03-2024 End: 04-04-2024 ambulatory yKlee Fernandez PT [facility] [facility] Comment on above: Arthritis of knee, r ight (Primary Dx); Acute postoperative pain of right knee; Status post right knee replacement; Difficulty walking Start: 04-03-2024 End: 04-03-2024 Bamboo flowsheet Kylee Fernandez PT [facility] Start: 04-03-2024 End: 04-03-2024 Bamboo flowsheet Kylee Fernandez PT [facility] Start: 03-28-2024 End: 03-29-2024 ambulatory Baldomero Stephenson MILITARY PERSONNEL SPECIALIST [facility] Comment on above: Arthritis of knee, r ight (Primary Dx); Acute postoperative pain of right knee; Status post right knee replacement Start: 03-28-2024 End: 03-28-2024 Bamboo flowsheet Baldomero Stephenson MILITARY PERSONNEL SPECIALIST [facility] Start: 03-28-2024 End: 03-28-2024 Bamboo flowsheet Baldomero Stephenson MILITARY PERSONNEL SPECIALIST [facility] Start: 03-23-2024 End: 03-23-2024 Patient encounter procedure Chan Khan DO Work Phone: [facility] Comment on above: Aftercare following right knee joint replacement surgery (Primary Dx) Start: 03-23-2024 End: 03-23-2024 ambulatory CHAN KHAN Not Available Start: 03-23-2024 End: 03-23-2024 ambulatory CHAN KHAN Not Available Start: 03-21-2024 End: 03-22-2024 ambulatory BALDOMERO STEPHENSON Not Available Start: 03-21-2024 End: 03-21-2024 Bamboo flowsheet Baldomero Stephenson MILITARY PERSONNEL SPECIALIST [facility] Start: 03-21-2024 End: 03-21-2024 Bamboo flowsheet Baldomero Stephenson MILITARY PERSONNEL SPECIALIST [facility] Start: 03-15-2024 End: 03-15-2024 ambulatory Kylee Fernandez PT [facility] Comment on above: Arthritis of knee, r ight (Primary Dx); Acute postoperative pain of right knee; Status post right knee replacement; Difficulty walking Start: 03-15-2024 End: 03-15-2024 Bamboo flowsheet Kylee Jim PT [facility] Start: 03-15-2024 End: 03-15-2024 Bamboo flowsheet Kylee Fernandez PT [facility] Start: 03-14-2024 End: 03-14-2024 ambulatory MARIANO MCBRIDE Not Available Start: 03-13-2024 End: 03-13-2024 Clinical Support Mariano Mcbride PT Work Phone: [facility] Comment on above: Arthritis of knee, r ight (Primary Dx); Acute postoperative pain of right knee; Status post right knee replacement; Difficulty walking Start: 03-10-2024 End: 03-10-2024 Clinical Support Mariano Mcbride PT Work Phone: [facility] Comment on above: Arthritis of knee, r ight (Primary Dx); Acute postoperative pain of right knee; Status post right knee replacement; Difficulty walking Start: 03-07-2024 End: 03-07-2024 ambulatory MARIANO MCBRIDE Not Available Start: 03-06-2024 End: 03-06-2024 Clinical Support Mariano Mcbride PT Work Phone: [facility] Comment on above: Arthritis of knee, r ight (Primary Dx); Acute postoperative pain of right knee; Status post right knee replacement; Difficulty walking Start: 03-05-2024 End: 03-05-2024 ambulatory MARIANO MCBRIDE Not Available Start: 03-02-2024 End: 03-02-2024 Clinical Support Mariano Mcbride PT Work Phone: [facility] Comment on above: Arthritis of knee, r ight (Primary Dx); Acute postoperative pain of right knee; Status post right knee replacement; Difficulty walking Start: 02-28-2024 End: 02-28-2024 Clinical Support Mariano Mcbride PT Work Phone: [facility] Comment on above: Arthritis of knee, r ight (Primary Dx); Acute postoperative pain of right knee; Status post right knee replacement; Difficulty walking Start: 02-24-2024 End: 02-24-2024 Clinical Support Mariano Mcbride PT Work Phone: [facility] Comment on above: Arthritis of knee, r ight (Primary Dx); Acute postoperative pain of right knee; Status post right knee replacement; Difficulty walking Start: 02-23-2024 End: 02-23-2024 ambulatory MARIANO MCBRIED Not Available Start: 02-22-2024 End: 02-22-2024 Clinical Support Mariano Mcbride PT Work Phone: [facility] Comment on above: Arthritis of knee, r ight (Primary Dx); Acute postoperative pain of right knee; Status post right knee replacement; Difficulty walking Start: 02-21-2024 End: 02-21-2024 Admission to same day surgery center Chan Khan [facility] Start: 02-21-2024 End: 02-21-2024 ambulatory Chan Khan Facility:[facility] Start: 02-10-2024 End: 02-10-2024 Bamboo flowsheet Kylee Fernandez PT [facility] Start: 02-10-2024 End: 02-10-2024 Bamboo flowsheet Kylee Fernandez PT [facility] Start: 02-10-2024 End: 02-11-2024 ambulatory Kylee Fernandez PT [facility] Comment on above: Primary osteoarthrit is of right knee (Primary Dx) Start: 02-08-2024 End: 02-08-2024 Bamboo flowsheet Elvie Greer [employer]CHO[employer] LANGUAGE TUTOR Work Phone: [facility] Start: 02-08-2024 End: 02-08-2024 Bamboo flowsheet Elvie Greer NP Work Phone: [facility] Start: 02-08-2024 End: 02-08-2024 Office outpatient visit 25 minutes Elvie Greer NP Work Phone: [facility] Comment on above: Anxiety and depressi on (CMS/HCC) (Primary Dx); Mild persistent asthma without complication (CMS/HCC); Gastroesophageal reflux disease, unspecified whether esophagitis present; Morbid obesity with BMI of 50.0-59.9, adult (CMS/HCC); 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CMS/HCC); Morbid obesity due to excess calories (CMS/HCC); Moderate persistent asthma without complication (CMS/HCC); Encounter for screening mammogram for malignant neoplasm of breast; Arthritis of knee, right Start: 02-08-2024 End: 02-08-2024 Refill Elvie Greer NP Work Phone: [facility] Comment on above: Psoriasis (CMS/HCC) (Primary Dx) Start: 01-25-2024 End: 01-25-2024 Clinisync Result Encounter Chan Khan DO Work Phone: [facility] Unsolicited Start: 01-25-2024 End: 01-25-2024 Clinisync Result Encounter Chan Khan DO Work Phone: [facility] Unsolicited Start: 01-25-2024 End: 01-25-2024 ambulatory Chan Khan Facility:[facility] Start: 01-25-2024 End: 01-25-2024 Patient encounter procedure Chan Khan [facility] Start: 01-20-2024 End: 01-20-2024 Clinisync Result Encounter Elvie Greer NP Work Phone: [facility] Unsolicited Start: 01-20-2024 End: 01-20-2024 Clinisync Result Encounter Elvie Greer NP Work Phone: [facility] Unsolicited Start: 01-13-2024 End: 01-13-2024 Patient encounter procedure Chan Khan DO Work Phone: [facility] Comment on above: Pre-op testing (Prim yaw Dx) Start: 01-13-2024 End: 01-13-2024 Patient encounter status Chan Khan DO Work Phone: [facility] Start: 01-13-2024 End: 01-13-2024 ambulatory CHAN KHAN Not Available Start: 01-13-2024 End: 01-13-2024 Bamboo flowsheet Chan Khan DO Work Phone: [facility] Start: 01-13-2024 End: 01-13-2024 Bamboo flowsheet Chan Khan DO Work Phone: [facility] Start: 12-26-2023 End: 12-26-2023 Refill Elvie Percy [employer] LANGUAGE TUTOR Work Phone: [facility] Comment on above: Anxiety and depressi on (CMS/HCC); 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CMS/HCC) Start: 12-09-2023 End: 12-09-2023 Patient encounter procedure Elvie Greer Work Phone: [facility] [address] Work Phone: Start: 12-09-2023 End: 12-09-2023 ambulatory Elvie Greer Work Phone: [facility] Work Phone: Start: 11-26-2023 End: 11-26-2023 Refill Elvie Gabrielholz [employer]CHO[employer] LANGUAGE TUTOR Work Phone: [facility] Comment on above: Gastroesophageal ref lux disease, unspecified whether esophagitis present Start: 11-26-2023 End: 11-26-2023 ambulatory [facility] Work Phone: Start: 11-26-2023 End: 11-26-2023 Patient encounter procedure [facility] [place] Work Phone: Start: 11-09-2023 End: 11-09-2023 Clinisync Result Encounter Elvie Flowerfermín [employer]CHO[employer] LANGUAGE TUTOR Work Phone: [facility] Unsolicited Start: 11-09-2023 End: 11-09-2023 Clinisync Result Encounter Elvie Greer [employer] LANGUAGE TUTOR Work Phone: [facility] Unsolicited Start: 11-09-2023 End: 11-09-2023 Office outpatient visit 25 minutes Elvie Greer HIGH [employer] LANGUAGE TUTOR Work Phone: [facility] Comment on above: Aura's thyroidi tis ([facility]/HCC) (Primary Dx); Morbid obesity with BMI of 50.0-59.9, adult ([facility]); Psoriasis (CMS/[facility]); Anxiety and depression (CMS/[facility]); Gastroesophageal reflux disease, unspecified whether esophagitis present; Moderate persistent asthma without complication (CMS/[facility]); Arthritis of knee, right Start: 11-09-2023 End: 11-09-2023 ambulatory ELVIE AICHHOLZ Not Available Start: 10-21-2023 End: 10-21-2023 ambulatory CHAN KHAN Not Available Start: 10-05-2023 End: 10-05-2023 ambulatory DEEP HENRY Not Available Start: 09-30-2023 End: 09-30-2023 ambulatory ELVIE AICHHOLZ Not Available Start: 08-31-2023 End: 08-31-2023 ambulatory ELVIE AICHHOLZ Not Available Start: 07-27-2023 ambulatory Elvie J Aichholz Facilit y:[facility] Start: 07-19-2023 End: 07-20-2023 ambulatory Jamshid Sahu MD Facility:[facility] [place] Start: 06-29-2023 End: 06-29-2023 ambulatory ELVIE AICHHOLZ Not Available Start: 05-27-2023 End: 05-27-2023 ambulatory JAVIER MORALES Not Available Start: 05-18-2023 End: 05-18-2023 ambulatory ELVIE AICHHOLZ Not Available Start: 04-22-2023 End: 04-22-2023 Office outpatient visit 10 minutes Deep Henry [employer] LANGUAGE TUTOR Work Phone: [facility] Comment on above: Primary osteoarthrit is of right knee (Primary Dx); Right knee pain, unspecified chronicity Start: 04-22-2023 End: 04-22-2023 ambulatory DEEP HENRY Not Available Start: 04-14-2023 Telephone encounter Elvie Mat darnell [employer] LANGUAGE TUTOR Work Phone: [facility] Start: 02-26-2023 End: 02-26-2023 ambulatory Mary Jo Thibodeaux Other [employer] Other Start: 02-26-2023 Office outpatient vi sit 15 minutes Mary Jo Thibodeaux [facility] [place] Start: 05-28-2022 End: 05-29-2022 ambulatory KEYA LOVE MARISOLMaryJAYA Facility:[facility] Start: 05-06-2022 End: 05-06-2022 ambulatory LEAD RADIOLOGIC TECHNOLOGIST ELVIE PERCY Facility:[facility] Start: 02-23-2022 End: 02-23-2022 ambulatory LEAD RADIOLOGIC TECHNOLOGIST ELVIE MARISOLMaryKERRIEFermín Facility:[facility] Procedures Date Procedure Procedure Detail Performing Clinician Start: 03-23-2024 Radiologic examinati on knee 3 views Chan Khan DO Work Phone: Start: 02-21-2024 Total knee replacement Chan Khan Start: 01-25-2024 UA WITH CULT RFLX Idris yuliana Khan DO Work Phone: Start: 01-20-2024 ALL THYROID STIM HORMONE Elvie Greer [employer] L[employer]UAGE TUTOR Work Phone: Start: 01-20-2024 ALL THYROXINE (T4) FREE Elvie Greer HIGH [employer] LANGUAGE TUTOR Work Phone: Start: 11-09-2023 ALL THYROID STIM HORMONE Elvie Percy [employer] LANGUAGE TUTOR Work Phone: Start: 05-27-2023 Microscopic observat ion [Identifier] in Cervix by Cyto stain Elvie Greer [employer] LANGUAGE TUTOR Work Phone: Cholecystectomy Chan mahajan History of hernia repair Kaiden hael Khan Plan of Treatment Date Care Activity Detail Author Start: 05-26-2026 Screening for malign ant neoplasm of cervix [facility] Start: 06-22-2024 End: 06-22-2024 Patient encounter procedure 06/22/2024 3:45 PM EDT Office Visit [facility] [address] [place] [phone] Chan Khan, DO [address] [place] [address] [facility] Start: 05-30-2024 End: 05-30-2024 Patient encounter procedure 05/30/2024 10:00 AM EDT Office Visit [facility] [address] [place] [phone] Javier Morales, DO [address] [place] [address] [facility] Start: 05-09-2024 End: 05-09-2024 Patient encounter procedure 05/09/2024 8:40 AM EST Office Visit [facility] [address] [place] [phone] Elvie Greer, HIGH [employer]CHO[employer] LANGUAGE TUTOR [address] [place] [phone] [facility] Start: 04-21-2024 End: 04-21-2024 ambulatory 04/21/2024 2:30 PM EST Treatment [facility] [address] [place] [address] Sumeet Carter PTA [facility] Start: 04-19-2024 End: 04-19-2024 ambulatory [facility] Start: 04-17-2024 End: 04-17-2024 ambulatory [facility] Start: 04-14-2024 End: 04-14-2024 ambulatory 04/14/2024 2:00 PM EST Treatment [facility] [address] [facility] [address] [place] [address] Baldomero Stephenson, MILITARY PERSONNEL SPECIALIST [facility] Start: 04-12-2024 End: 04-12-2024 ambulatory [facility] Comment on above: Arrived Start: 04-10-2024 End: 04-10-2024 ambulatory 04/10/2024 5:00 PM EST Treatment [facility] [address] [place] [address] Kylee Fernandez, PT [facility] Start: 04-05-2024 End: 04-05-2024 ambulatory 04/05/2024 5:00 PM EST Treatment [facility] [address] [facility] [address] [place] [address] Sumeet Carter, MILITARY PERSONNEL SPECIALIST [facility] Start: 04-03-2024 End: 04-03-2024 ambulatory [facility] Comment on above: Arthritis of knee, r ight (Primary Dx); Acute postoperative pain of right knee; Status post right knee replacement; Difficulty walking Start: 03-28-2024 End: 03-28-2024 ambulatory [facility] Comment on above: Arrived Start: 03-23-2024 End: 03-23-2024 Patient encounter procedure 03/23/2024 3:00 PM EST Office Visit [facility] [address] [place] [phone] Chan Khan DO [address] [place] [address] [facility] Start: 03-21-2024 End: 03-21-2024 ambulatory [facility] Comment on above: Arthritis of knee, r ight (Primary Dx) Start: 03-15-2024 End: 03-15-2024 ambulatory 03/15/2024 5:00 PM EST Treatment [facility] [address] [facility] [address] [place] [address] Kylee Fernandez, PT [facility] Start: 02-10-2024 End: 02-10-2024 ambulatory [facility] Comment on above: Primary osteoarthrit is of right knee Start: 02-08-2024 End: 02-08-2024 Patient encounter procedure [facility] Comment on above: Mild persistent asth ma without complication (CMS/HCC) (Primary Dx); Gastroesophageal reflux disease, unspecified whether esophagitis present; Morbid obesity with BMI of 50.0-59.9, adult (CMS/HCC); 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CMS/HCC); Morbid obesity due to excess calories (CMS/HCC); Anxiety and depression (CMS/HCC); Moderate persistent asthma without complication (CMS/HCC); Encounter for screening mammogram for malignant neoplasm of breast Start: 01-25-2024 End: 01-12-2025 Urinalysis complete panel - Urine Urinalysis with reflex microscopic Lab Routine Pre-op testing Expected: 01/25/2024, Expires: 01/12/2025 [facility] Work Phone: Comment on above: Expected: 01/25/2024 , Expires: 01/12/2025 Start: 01-13-2024 End: 01-13-2024 Patient encounter procedure 01/13/2024 3:15 PM EST Office Visit [facility] [address] [place] [address] Chan Khan DO [address] [place] [address] Arrived [facility] Comment on above: Arrived Start: 01-06-2024 Influenza vaccination Influenza Vacc ine (#1) [facility] Comment on above: Postponed from 11/06 (Patient Refused) Start: 2023 Screening for malign ant neoplasm of breast Mammogram [facility] Start: 11-09-2023 End: 11-09-2023 Patient encounter procedure 11/09/2023 2:00 PM EDT Office Visit [facility] [address] [place] [phone] Elvie Greer, JONN [address] [place] [phone] [facility] Start: 11-09-2023 End: 11-08-2024 Thyrotropin [Units/volume] in Serum or Plasma TSH Lab Routine 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CMS/HCC) Expected: 11/09/2023 (Approximate), Expires: 11/08/2024 [facility] Work Phone: Comment on above: Expected: 11/09/2023 (Approximate), Expires: 11/08/2024 Start: 11-09-2023 End: 11-08-2024 Thyroxine (T4) free [Mass/volume] in Serum or Plasma T4, free Lab Routine 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CMS/HCC) Expected: 11/09/2023 (Approximate), Expires: 11/08/2024 [facility] Comment on above: Expected: 11/09/2023 (Approximate), Expires: 11/08/2024 Start: 05-27-2023 End: 05-27-2023 Patient encounter procedure 05/27/2023 10:00 AM EDT Office Visit [facility] [address] [facility] [phone] Javier Morales DO [address] [place] [address] [facility] Start: 05-18-2023 End: 05-18-2023 Patient encounter procedure 05/18/2023 9:20 AM EDT Office Visit [facility] [address] [place] [address] Elvie Greer NP [address] [place] [phone] [facility] Start: 04-22-2023 End: 04-22-2023 Patient encounter procedure 04/22/2023 10:15 AM EST Office Visit [facility] [address] [place] [phone] Deep Henry, HIGH [employer]CHO[employer] LANGUAGE TUTOR [address] [place] [address] [facility] Start: 11-18-2013 Screening for malign ant neoplasm of cervix [facility] Start: 11-18-2004 Screening for malign ant neoplasm of cervix Pap Smear [facility] Immunizations Immunization Date Immunization Notes Care Provider Fa cili 12-22-2023 influenza, seasonal, injectable, preservative free Elvie Greer [employer] L[employer]UAGE TUTOR Work Phone: [facility] 10-29-2022 influenza, injectabl e, quadrivalent, preservative free Elvie Greer H[employer] LANGUAGE TUTOR Work Phone: [facility] 10-29-2022 influenza virus vacc ine, unspecified formulation Elvie Greer HIGH [employer] LANGUAGE TUTOR Work Phone: [facility] Payers Date Payer Category Payer Self-pay 2023 Private Health Insurance [id number] 2023 Unknown [id number] 1983 Unknown [id number] 2.16.84 0.1.913730.3.579.2.593 1983 Unknown [id number] 2.16.84 0.1.690376.3.579.2.593 1983 Unknown [id number] 2.16.84 0.1.162847.3.579.2.593 1983 Unknown [id number] 2.16. 840.1.428718.3.579.2.196 1983 Unknown [id number] 2.16.8 40.1.515967.3.579.2.727 1983 Unknown [id number] 2.16.8 40.1.286996.3.579.2.727 1983 Unknown [id number] 2.16.8 40.1.567144.3.579.2.727 1983 Unknown [id number] 2.16.84 0.1.896306.3.579.2.1258 1983 Unknown [id number] 2.16.84 0.1.856772.3.579.2.1258 1983 Unknown [id number] 2.16.84 0.1.443915.3.579.2.1258 1983 Unknown [id number] 2.16.84 0.1.662228.3.579.2.1258 1983 Unknown [id number] 2.16.84 0.1.218406.3.579.2.1258 1983 Unknown [id number] 2.16.84 0.1.321046.3.579.2.1258 1983 Unknown [id number] 2.16.84 0.1.245739.3.579.2.1258 1983 Unknown [id number] 2.16.84 0.1.847092.3.579.2.1258 1983 Unknown [id number] 2.16.84 0.1.089644.3.579.2.1258 1983 Unknown [id number] 2.16.84 0.1.636569.3.579.2.1258 1983 Unknown [id number] 2.16.84 0.1.950773.3.579.2.1258 1983 Unknown [id number] 2.16.84 0.1.376692.3.579.2.1258 1983 Unknown [id number] 2.16.84 0.1.667762.3.579.2.1258 1983 Unknown [id number] 2.16.84 0.1.043337.3.579.2.1258 1983 Unknown [id number] 2.16.84 0.1.275110.3.579.2.1258 1983 Unknown [id number] 2.16.84 0.1.110435.3.579.2.1258 1983 Unknown [id number] 2.16.84 0.1.746122.3.579.2.1258 1983 Unknown [id number] 2.16.84 0.1.301638.3.579.2.1258 1983 Unknown [id number] 2.16.84 0.1.106104.3.579.2.1258 1983 Unknown [id number] 2.16.84 0.1.992851.3.579.2.1258 1983 Unknown [id number] 2.16.84 0.1.389329.3.579.2.1258 1983 Unknown [id number] 2.16.84 0.1.352507.3.579.2.1258 1983 Unknown [id number] 2.16.84 0.1.424234.3.579.2.1258 1983 Unknown [id number] 2.16.84 0.1.756480.3.579.2.1258 1983 Unknown [id number] 2.16.84 0.1.496863.3.579.2.1258 1983 Unknown [id number] 2.16.84 0.1.777783.3.579.2.1258 1983 Unknown [id number] 2.16.84 0.1.883730.3.579.2.1259 1959 Unknown [id number] Unknown [id number] 2.16.8 40.1.288319.3.579.2.531 Social History Date Type Detail Facility Start: 04-06-2023 End: 08-31-2023 Sex Assigned At [facility] Start: 04-01-2023 End: 11-26-2023 Tobacco smoking status [facility] Never smoked tobacco [facility] Work Phone: Start: 04-01-2023 Tobacco use and exposure Smokeless tobacco non-user [facility] Start: 04-13-2023 End: 03-23-2024 Alcohol intake Lifetime non-drinker (finding) [facility] Start: 04-06-2023 End: 08-31-2023 History of Social function [facility] Within the last year , have you been afraid of your partner or ex-partner? No [facility] Do you belong to any clubs or organizations such as jain groups, unions, fraternal or athletic groups, or [...] Gender identity Identifies as female gender (finding) [facility] Start: 1985 Sex Assigned At Female [facility] Tobacco smoking status No Smokin g Status Entered [facility] Medical Equipment Procedure Code Equipment Code Equipment Origin al Text Equipment Identifier Dates KNEE TOTAL ARTHROPLASTY Chan Khan DO [place] 02/21/24 Unknown Knee R FDA Start: 02-21-2024 KNEE TOTAL ARTHROPLASTY Loren ARELLANO Chan [place] 02/21/24 Unknown Knee R FDA Start: 02-21-2024 KNEE TOTAL ARTHROPLASTY Chan Khan DO [place] 02/21/24 Unknown Knee R FDA Start: 02-21-2024 KNEE TOTAL ARTHROPLASTY Chan Khan DO [place] 02/21/24 Unknown Knee R FDA Start: 02-21-2024 KNEE TOTAL ARTHROPLASTY Chan Khan DO [place] 02/21/24 Unknown Knee R FDA Start: 02-21-2024 Functional Status Date Assessment Result Facility 01-25-2024 Functional Status No [facility] Clinical Notes 02-26-2023 to 04-10-2024 Kylee Fernandez PT - 04/10/2024 11:00 AM Nelly Fernandez, PT - 04/03/2024 4:00 PM Lukas Khan, DO - 03/23/2024 3:00 PM Rubio Mcbride, PT - 03/13/2024 11:00 AM EST Note Date & Type Note Facility 04-10-2024 History of Present illness Narrative Images from the original note were not included. Physical Therapy Treatment Visit Patient Name: Wilmer Navarro Today's Date: 04/10/2024 Encounter Diagnoses Name Primary? Arthritis of knee, right Yes Acute postoperative pain of right knee Status post right knee replacement Visit number: 6 (7 in home) Timed Code Treatment Minutes: 54 minutes Total Treatment Time: 64 minutes Time In: 1100 Time Out: 1207 History: Underwent surgery for right TKA 02/20/25. Transitioning from home therapy to out patient Precautions: universal Subjective: Pt she was almost pulled down by her dog this morning but was able to avoid falling. Was sore following last session but doing well today. States knee still swells at times if she is on it for too long. Pain: 0/10 Objective: at Evaluation Passive ROM: Left knee 10 to 100 degrees. Joint play: hypomobile. Manual muscle testing: Left knee flexion/extension: 3/5. Palpation: Minimal warmth upon palpation, consistent with post-operative conditions. Surgical incision intact with Mepilex dressing which was removed along with shaunna on 03/13/24. Sterile strips placed. Incision healing with no concerns; open to air. Special tests: Negative Yosef Sign. Treatment: Education: HEP education with demonstration, Educated on Eval Findings and POC Manual Therapy: Passive ROM, Joint mobilization, Soft Tissue Mobilization, Myofascial Release, Muscle Energy Technique, Neural Mobilization, Myofascial Cupping, Dry Needling, IASTM, and Scar mobilization as needed. Therapeutic Exercise: (28 minutes) Strength, Endurance, Flexibility, ROM, HEP, Neural Mobilization, Power, and Core Stability as needed. Pt performed exercises per grid this date to work on ROM and strength of right LE. Added single leg press with good berenice. Therapeutic Activity: (26 minutes) Exercises to improve dynamic activities, functional tasks, functional mobility to return to prior activity level as needed. Neuromuscular re-education: () Balance Training, Muscle Facilitation, Dynamic Stability, Core Stabilization, and Blood Flow Restriction Training (BFRT) as needed. Modalities: Heat, Ice, Electrical Stimulation, Ultrasound, Cervical Mechanical Traction, Lumbar Mechanical Traction, Iontophoresis, and Fluidotherapy as needed. Assessment: Pt has completed 13 PT sessions following right TKA. Weakness noted right LE compared to left with single leg press. Min compensation noted with ascending 6 inch steps. Will continue to progress as pt tolerates. Outcome Measure: Lower Extremity Functional Scale (LEFS): 31/80 on 03/15/24 Rehab Diagnosis: right knee pain and weakness; decrease ROM and mobility; difficulty walking Short Term Goal: To be met in 2 weeks Goal 1: Pt to be instructed in home exercise program. [facility] Goals: To be met in 10 weeks Goal 1: Pt to report independence and compliance with home program. Goal 2: Pt to achieve 125 degrees right knee flexion to assist with functional tasks such as squatting. Goal 3: Pt to achieve full right knee extension to assist with proper gait. Goal 4: Pt to achieve 5/5 strength right knee flexion and extension to assist with functional mobility and ADL's. Goal 5: Pt to score no less than 60/80 on LEFS indicating improved QOL. Pt will benefit from skilled PT for 1-2x/week from 03/15/2024 to 05/24/2024 to address the above impairments. I hereby deem this POC medically necessary. Please sign below. Date: documented in this encounter [facility] 04-03-2024 History of Present illness Narrative Images from the original note were not included. Physical Therapy Treatment Visit Patient Name: Wilmer Navarro Today's Date: 04/03/2024 Encounter Diagnoses Name Primary? Arthritis of knee, right Yes Acute postoperative pain of right knee Status post right knee replacement Difficulty walking Visit number: 4 (7 in home) Timed Code Treatment Minutes: 40 minutes Total Treatment Time: 50 minutes Time In: 1550 Time Out: 1645 History: Underwent surgery for right TKA 02/20/25. Transitioning from home therapy to out patient Precautions: universal Subjective: Pt states doing well. No complaints of pain this date. Pain: 0-2/10 Objective: at Evaluation Passive ROM: Left knee 10 to 100 degrees. Joint play: hypomobile. Manual muscle testing: Left knee flexion/extension: 3/5. Palpation: Minimal warmth upon palpation, consistent with post-operative conditions. Surgical incision intact with Mepilex dressing which was removed along with shaunna on 03/13/24. Sterile strips placed. Incision healing with no concerns; open to air. Special tests: Negative Yosef Sign. Treatment: Education: HEP education with demonstration, Educated on Eval Findings and POC Manual Therapy: Passive ROM, Joint mobilization, Soft Tissue Mobilization, Myofascial Release, Muscle Energy Technique, Neural Mobilization, Myofascial Cupping, Dry Needling, IASTM, and Scar mobilization as needed. Therapeutic Exercise: (30 minutes) Strength, Endurance, Flexibility, ROM, HEP, Neural Mobilization, Power, and Core Stability as needed. Pt performed exercises per grid this date to work on ROM and strength of right LE. Therapeutic Activity: (10 minutes) Exercises to improve dynamic activities, functional tasks, functional mobility to return to prior activity level as needed. Neuromuscular re-education: () Balance Training, Muscle Facilitation, Dynamic Stability, Core Stabilization, and Blood Flow Restriction Training (BFRT) as needed. Modalities: Heat, Ice, Electrical Stimulation, Ultrasound, Cervical Mechanical Traction, Lumbar Mechanical Traction, Iontophoresis, and Fluidotherapy as needed. CP x 10 mins following treatment for pain and swelling. Assessment: Pt has completed 11 PT sessions following right TKA. Pt able to achieve 125 degrees of right knee flexion with self stretch this date. Min compensation noted with ascending 6in step. Will continue to progress as pt tolerates. Outcome Measure: Lower Extremity Functional Scale (LEFS): 31/80 on 03/15/24 Rehab Diagnosis: right knee pain and weakness; decrease ROM and mobility; difficulty walking Short Term Goal: To be met in 2 weeks Goal 1: Pt to be instructed in home exercise program. Claims Adjuster Supervisor Goals: To be met in 10 weeks Goal 1: Pt to report independence and compliance with home program. Goal 2: Pt to achieve 125 degrees right knee flexion to assist with functional tasks such as squatting. Goal 3: Pt to achieve full right knee extension to assist with proper gait. Goal 4: Pt to achieve 5/5 strength right knee flexion and extension to assist with functional mobility and ADL's. Goal 5: Pt to score no less than 60/80 on LEFS indicating improved QOL. Pt will benefit from skilled PT for 1-2x/week from 03/15/2024 to 05/24/2024 to address the above impairments. I hereby deem this POC medically necessary. Please sign below. Date: documented in this encounter [facility] 03-23-2024 History of Present illness Narrative Post op right TKA 1st visit: The patient is seen and evaluated for first total knee arthroplasty visit. Did well with the hospital stay. No anesthesia problems reported. Happy with the care provided by staff, physical therapy and our office. Pain is appropriately controlled. Denies chest pain or shortness of breath or palpitations. Continues to be consistent and diligent with home exercise program as well as physical therapy modalities. Physical therapy reports are reviewed. Physical Exam: The total knee incision is clean, dry and intact. Mild swelling and warmth as expected.. Has a stable arc of motion with near full extension. Stable flexion. Patellofemoral tracking is appropriate. No instability of the prosthesis. Collateral ligaments are intact. No rash, infection or DVT. The calf is supple. Gait is assisted with stiffness with mild antalgic component. Image Results: Xrays taken in the office today saved to the permanent record, Ap, lateral and sunrise weight bearing films, show stable position and alignment of the right knee prosthesis. No sign of loosening or infection. Assessment: S/P right total knee arthroplasty-first post-operative visit Treatment Plan: The nature of the findings were discussed at length. Ice, vitamin E lotion massage techniques, stretching, physical therapy modalities will be continued and were reviewed. Discontinuance of the DVT prophylaxis that was used in the first four weeks. Resume any prexisting medications and blood thinners. Continuance of physical therapy with progression to a home program. Fall precautions, with assistive device as needed. Follow up will be in three months for repeat x-ray and exam. terminal clerk antibiotic prophylaxis for dental or invasive work were reviewed. Numerous questions were answered. The patient is discharged in stable condition. documented in this encounter [facility] 03-13-2024 History of Present illness Narrative Physical Therapy Physical Therapy Daily visit Patient Name: Wilmer Navarro Today's Date: 03/13/2024 Subjective Current Problem: s/p right TKA with pain and difficulty walking. Pt is being seen today for a follow up visitfor s/p right TKA. Date of Surgery: 02/21/2024 with same day discharge Current deficits: Difficulty with all mobility secondary to recent right TKA and pain. Visit Number 2; (5 in 2023) Time In: 11:00 am; Time out: 11:20 am Total time: 20 minutes [id number] gait training x 20 minutes Precautions: WBAT Right LE; Right TKA protocol; Recent left TKA Pain Management: The patient is complaining of pain located in the Righ knee and thigh region. Pain rating 2/10. The pain is improved by ice and medication including Tylenol as needed. The pain is aggravated by activity. The pain is described as aching, throbbing and stiffness. Prior level of function: Ambulation: antalgic gait pattern on Right LE. Assistive devices: FWW, cane ADL and IADL: Independent. Home Environment: Pt lives with her in a one story home with 3 steps to enter. Has lift chair. Objective General Visit Information: Passive ROM: Left knee 10 to 100 degrees. Joint play: hypomobile. Manual muscle testing: Left knee flexion/extension: 3/5. Palpation: Minimal warmth upon palpation, consistent with post-operative conditions. Surgical incision intact with Mepilex dressing which was removed along with shaunna on 03/13/24. Sterile strips placed. Incision healing with no concerns; open to air. Special tests: Negative Yosef Sign. Functional Mobility: Bed Mobility: Mod indep Sit to Stand: Mod indep Stair Negotiation: supervision Ambulation: Patient is ambulating with mild antalgic type pattern with no devices. Using cane outside of home; mod indep. Tinetti Gait and Balance Assessment: Sitting balance: Steady, safe = 1. Rises from chair: indep= 2 Attempts to rise: first attempt= 2. Immediate standing balance (first 5 seconds): Steady with no device = 2. Standing balance: Steady = 2. Nudged: Staggers, grabs, catches self = 1. Eyes closed: Steady = 1. Turning 360 degrees: Continuous steps = 1 , Steady = 1. Sitting down: Uses arms or not a smooth motion = 1. Balance Score: 14/16. Indication of gait: No hesitancy = 1. Step of length and height: Step through= 2. Foot clearance: L foot clears floor = 1 , R foot clears floor = 1. Step symmetry: Right and left step length equal = 1. Step continuity: continuity between steps = 1. Path: Mild/moderate deviation or uses w/ aid = 1. Trunk: No sway but flex knees or back or uses arms for stability = 1. Walking time: Heels close together = 1. Gait score: /12. Total Score = Balance + Gait . Tinetti tool score: < = Low fall risk Physical Education Intervention Physical Therapy Education: Pt was educated on the importance of cyrotherapy and elevation. Reviewed proper pillow placement under LE to maintain good extension. Stressed the importance also of ambulating at at least every other hour for 2-5 minutes duration and completion of HEP 2x/day. Patient was educated with regards to signs and symptoms to monitor with respect to blood clots and infection. Therapeutic Exercise : Pt completed HEP prior to session. HEP Reviewed Gait Training: Gait training with cane and without cane; mod indep with good reciprocal pattern. Therapeutic Activity: All transfers performed mod indep. Assessment & Plan Pt making steady gains. Shaunna removed on 03/13/24. Assessment Impairments: abnormal gait, abnormal or restricted ROM, impaired balance, impaired physical strength, pain with function and weight-bearing intolerance Barriers to therapy: Increased pain, edema,bruising and knee weakness. Prognosis: good Goals Short Term Goals Goal 1 : Patient will be independent with HEP with good compliance and independence. Goal 2 : Patient will demonstrate 3-90 degrees of passive range of motion of right knee flexion. Goal 3 : Patient will ambulate >6 minutes modified independently with wheeled walker with good reciprocal gait pattern. Goal 4 : Patient will demonstrate all sit< >stand transfers and supine< >sit bed mobility, modified independent with no cues for proper sequencing. Goal 5 : Patient will ascend/descend 3-4 steps with AD with supervision, step to gait pattern. Claims Adjuster Supervisor Goals Goal 1 : Patient will demonstrate 0-110 degrees of active Right knee flexion in order to improve indpendence with ambulation up and down steps. Goal 2 : Patient will demonstrate 4+/5 or better right knee strength in order to safely return to activities of interest. Goal 3 : Patient will ambulate community distances on even and uneven surfaces, independently with no AD, normalized gait pattern and < 1/10 report of pain in leftt knee. Goal 4 : Pt will ascend/descend 12+ steps with railing with reciprical gait pattern independently. Goal 5 : Patient will demonstrate good static and dynamic standing balance for >15 mintues without LOB or increase in knee pain. Goal 6 : Pt will improve Tinetti Balance test to 28/28 to indicate no fall risk. Plan Planned modality interventions: cryotherapy Planned therapy interventions: bed mobility training, dressing changes, functional ROM exercises, gait training, home exercise program, manual therapy, neuromuscular re-education, soft tissue mobilization, strengthening, stretching, therapeutic activities and transfer training Frequency: 3x/week. Duration in weeks: 6 Treatment plan discussed with: patient Plan details: Educated to continue icing and elevating. Pt to transition to OP on 03/15/24 at [facility]. documented in this encounter [facility] 03-10-2024 History of Present illness Narrative Physical Therapy Physical Therapy Daily visit Patient Name: Wilmer Navarro Today's Date: 03/10/2024 Subjective Current Problem: s/p right TKA with pain and difficulty walking. Pt is being seen today for a follow up visitfor s/p right TKA. Date of Surgery: 02/21/2024 with same day discharge Current deficits: Difficulty with all mobility secondary to recent right TKA and pain. Visit Number 1; (5 in 2023) Time In: 1:00 pm; Time out: 1:30 pm Total time: 30 minutes 09881 TherEx x 20 minutes [id number] gait training x 10 minutes Precautions: WBAT Right LE; Right TKA protocol; Recent left TKA Pain Management: The patient is complaining of pain located in the Righ knee and thigh region. Pain rating 2/10. The pain is improved by ice and medication including Tylenol as needed. The pain is aggravated by activity. The pain is described as aching, throbbing and stiffness. Prior level of function: Ambulation: antalgic gait pattern on Right LE. Assistive devices: FWW, cane ADL and IADL: Independent. Home Environment: Pt lives with her in a one story home with 3 steps to enter. Has lift chair. Objective General Visit Information: Passive ROM: Left knee 10 to 100 degrees. Joint play: hypomobile. Manual muscle testing: Left knee flexion/extension: 3-/5. Palpation: Minimal warmth upon palpation, consistent with post-operative conditions. Surgical incision intact with Mepilex dressing which was removed and changed on 03/02/24. Incision intact with shaunna. with no signs of drainage. Special tests: Negative Yosef Sign. Functional Mobility: Bed Mobility: Supervision Sit to Stand: Supervision Stair Negotiation: SBA Ambulation: Patient is ambulating with mild antalgic type pattern with FWW, reciprocal gait pattern; good heel to toe gait pattern; SBA. Pt ambulated approx 150' x 2 with slow rose. Fair knee flexion during swing phase. Tinetti Gait and Balance Assessment: Sitting balance: Steady, safe = 1. Rises from chair: needs assistance= 1. Attempts to rise: needs assistance= 1. Immediate standing balance (first 5 seconds): Steady but uses walker or other support = 1. Standing balance: Steady but uses walker or other support = 1. Nudged: Staggers, grabs, catches self = 1. Eyes closed: Steady = 1. Turning 360 degrees: Discontinuous steps = 0 , Unsteady (grabs, staggers) = 0. Sitting down: Uses arms or not a smooth motion = 1. Balance Score: 8/16. Indication of gait: No hesitancy = 1. Step of length and height: Step to = 0. Foot clearance: L foot clears floor = 1 , R foot clears floor = 1. Step symmetry: Right and left step length no equal = 0. Step continuity: Stopping or discontinuity between steps = 0. Path: Mild/moderate deviation or uses w/ aid = 1. Trunk: No sway but flex knees or back or uses arms for stability = 1. Walking time: Heels apart = 0. Gait score: 07/17. Total Score = Balance + Gait 02/02. Tinetti tool score: < = 18 High. Physical Education Intervention Physical Therapy Education: Pt was educated on the importance of cyrotherapy and elevation. Reviewed proper pillow placement under LE to maintain good extension. Stressed the importance also of ambulating at at least every other hour for 2-5 minutes duration and completion of HEP 2x/day. Patient was educated with regards to signs and symptoms to monitor with respect to blood clots and infection. Therapeutic Exercise : Pt completed right LE supine exercises of glut sets, quad sets, heel slides and ankle pumps (hourly) at this time, 10x. Pt completed 10x of knee flexion with gentle flexion stretch with plastic bag. Added standing heel raises, marches, hip abduction, mii squats, ham curls and standing SLR.. Completed 3 x 3 reps of AAROM LAQ. Completed standing knee flexion on stool with gentle rocking and holds to assist with flexion stretching, 10x. Added static knee extension on chair x 5 minutes. HEP updated and instructed. Gait Training: Gait training this date with FWW with instruction for reciprocal gait pattern for right affective LE with increase cues for heel to toe pattern and knee flexion during swing; less WB on walker with Ue's. Trialled str cane this date; demonstrated good two point gait pattern with good upright posture and two point gait pattern at supervision. Therapeutic Activity: Worked on proper sit to stand, stand to sit transfers this date from bedside with good carryover with mod indep with verbal cues for proper sequencing and hand placement. Assessment & Plan Pt making steady gains. [place] to be removed on 03/13/24. Pt will be set up for OP. Assessment Impairments: abnormal gait, abnormal or restricted ROM, impaired balance, impaired physical strength, pain with function and weight-bearing intolerance Barriers to therapy: Increased pain, edema,bruising and knee weakness. Prognosis: good Goals Short Term Goals Goal 1 : Patient will be independent with HEP with good compliance and independence. Goal 2 : Patient will demonstrate 3-90 degrees of passive range of motion of right knee flexion. Goal 3 : Patient will ambulate >6 minutes modified independently with wheeled walker with good reciprocal gait pattern. Goal 4 : Patient will demonstrate all sit< >stand transfers and supine< >sit bed mobility, modified independent with no cues for proper sequencing. Goal 5 : Patient will ascend/descend 3-4 steps with AD with supervision, step to gait pattern. [facility] Goals Goal 1 : Patient will demonstrate 0-110 degrees of active Right knee flexion in order to improve indpendence with ambulation up and down steps. Goal 2 : Patient will demonstrate 4+/5 or better right knee strength in order to safely return to activities of interest. Goal 3 : Patient will ambulate community distances on even and uneven surfaces, independently with no AD, normalized gait pattern and < 1/10 report of pain in leftt knee. Goal 4 : Pt will ascend/descend 12+ steps with railing with reciprical gait pattern independently. Goal 5 : Patient will demonstrate good static and dynamic standing balance for >15 mintues without LOB or increase in knee pain. Goal 6 : Pt will improve Tinetti Balance test to 28/28 to indicate no fall risk. Plan Planned modality interventions: cryotherapy Planned therapy interventions: bed mobility training, dressing changes, functional ROM exercises, gait training, home exercise program, manual therapy, neuromuscular re-education, soft tissue mobilization, strengthening, stretching, therapeutic activities and transfer training Frequency: 3x/week. Duration in weeks: 6 Treatment plan discussed with: patient Plan details: Educated to continue icing and elevating. documented in this encounter [facility] 03-06-2024 History of Present illness Narrative Physical Therapy Physical Therapy Daily visit Patient Name: Wilmer Navarro Today's Date: 03/06/2024 Subjective Current Problem: s/p right TKA with pain and difficulty walking. Pt is being seen today for a follow up visitfor s/p right TKA. Date of Surgery: 02/21/2024 with same day discharge Current deficits: Difficulty with all mobility secondary to recent right TKA and pain. Visit Number 5 Time In: 12:00 pm; Time out: 12:38 pm Total time: 38 minutes [id number] TherEx x 30 minutes [id number] gait training x 10 minutes Precautions: WBAT Right LE; Right TKA protocol; Recent left TKA Pain Management: The patient is complaining of pain located in the Righ knee and thigh region. Pain rating 4/10. The pain is improved by ice and medication 1 every 6 hours of Candia. The pain is aggravated by activity. The pain is described as aching, throbbing and stiffness. Prior level of function: Ambulation: antalgic gait pattern on Right LE. Assistive devices: FWW, cane ADL and IADL: Independent. Home Environment: Pt lives with her in a one story home with 3 steps to enter. Has lift chair. Objective General Visit Information: Passive ROM: Left knee 10 to 95 degrees. Joint play: hypomobile. Manual muscle testing: Left knee flexion/extension: 3-/5. Palpation: Minimal warmth upon palpation, consistent with post-operative conditions. Surgical incision intact with Mepilex dressing which was removed and changed on 03/02/24. Incision intact with shaunna. with no signs of drainage. Special tests: Negative Yosef Sign. Functional Mobility: Bed Mobility: Supervision Sit to Stand: Supervision Stair Negotiation: SBA Ambulation: Patient is ambulating with mild antalgic type pattern with FWW, reciprocal gait pattern; good heel to toe gait pattern; SBA. Pt ambulated approx 150' x 2 with slow rose. Fair knee flexion during swing phase. Tinetti Gait and Balance Assessment: Sitting balance: Steady, safe = 1. Rises from chair: needs assistance= 1. Attempts to rise: needs assistance= 1. Immediate standing balance (first 5 seconds): Steady but uses walker or other support = 1. Standing balance: Steady but uses walker or other support = 1. Nudged: Staggers, grabs, catches self = 1. Eyes closed: Steady = 1. Turning 360 degrees: Discontinuous steps = 0 , Unsteady (grabs, staggers) = 0. Sitting down: Uses arms or not a smooth motion = 1. Balance Score: 8/16. Indication of gait: No hesitancy = 1. Step of length and height: Step to = 0. Foot clearance: L foot clears floor = 1 , R foot clears floor = 1. Step symmetry: Right and left step length no equal = 0. Step continuity: Stopping or discontinuity between steps = 0. Path: Mild/moderate deviation or uses w/ aid = 1. Trunk: No sway but flex knees or back or uses arms for stability = 1. Walking time: Heels apart = 0. Gait score: 07/17. Total Score = Balance + Gait 02/02. Tinetti tool score: < = 18 High. Physical Education Intervention Physical Therapy Education: Pt was educated on the importance of cyrotherapy and elevation. Reviewed proper pillow placement under LE to maintain good extension. Stressed the importance also of ambulating at at least every other hour for 2-5 minutes duration and completion of HEP 2x/day. Patient was educated with regards to signs and symptoms to monitor with respect to blood clots and infection. Therapeutic Exercise : Pt completed right LE supine exercises of glut sets, quad sets, heel slides and ankle pumps (hourly) at this time, 10x. Pt completed 10x of knee flexion with gentle flexion stretch with plastic bag. Added standing heel raises, marches, hip abduction, mii squats, ham curls and standing SLR.. Completed 3 x 3 reps of AAROM LAQ. Completed standing knee flexion on stool with gentle rocking and holds to assist with flexion stretching, 10x. Added static knee extension on chair x 5 minutes. HEP updated and instructed. Gait Training: Gait training this date with FWW with instruction for reciprocal gait pattern for right affective LE with increase cues for heel to toe pattern and knee flexion during swing; less WB on walker with Ue's. Trialled str cane this date; demonstrated good two point gait pattern with good upright posture and two point gait pattern at supervision. Therapeutic Activity: Worked on proper sit to stand, stand to sit transfers this date from bedside with good carryover with mod indep with verbal cues for proper sequencing and hand placement. Assessment & Plan Right quads continue to be very weak but slowly gaining strength. ROM making good progress each session. Pt demonstrated good safety with cane. 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 Assessment Impairments: abnormal gait, abnormal or restricted ROM, impaired balance, impaired physical strength, pain with function and weight-bearing intolerance Barriers to therapy: Increased pain, edema,bruising and knee weakness. Prognosis: good Goals Short Term Goals Goal 1 : Patient will be independent with HEP with good compliance and independence. Goal 2 : Patient will demonstrate 3-90 degrees of passive range of motion of right knee flexion. Goal 3 : Patient will ambulate >6 minutes modified independently with wheeled walker with good reciprocal gait pattern. Goal 4 : Patient will demonstrate all sit< >stand transfers and supine< >sit bed mobility, modified independent with no cues for proper sequencing. Goal 5 : Patient will ascend/descend 3-4 steps with AD with supervision, step to gait pattern. [facility] Goals Goal 1 : Patient will demonstrate 0-110 degrees of active Right knee flexion in order to improve indpendence with ambulation up and down steps. Goal 2 : Patient will demonstrate 4+/5 or better right knee strength in order to safely return to activities of interest. Goal 3 : Patient will ambulate community distances on even and uneven surfaces, independently with no AD, normalized gait pattern and < 1/10 report of pain in leftt knee. Goal 4 : Pt will ascend/descend 12+ steps with railing with reciprical gait pattern independently. Goal 5 : Patient will demonstrate good static and dynamic standing balance for >15 mintues without LOB or increase in knee pain. Goal 6 : Pt will improve Tinetti Balance test to 28/28 to indicate no fall risk. Plan Planned modality interventions: cryotherapy Planned therapy interventions: bed mobility training, dressing changes, functional ROM exercises, gait training, home exercise program, manual therapy, neuromuscular re-education, soft tissue mobilization, strengthening, stretching, therapeutic activities and transfer training Frequency: 3x/week. Duration in weeks: 6 Treatment plan discussed with: patient Plan details: Educated to continue icing and elevating. documented in this encounter [facility] 03-02-2024 History of Present illness Narrative Physical Therapy Physical Therapy Daily visit Patient Name: Wilmer Navarro Today's Date: 03/02/2024 Subjective Current Problem: s/p right TKA with pain and difficulty walking. Pt is being seen today for a follow up visitfor s/p right TKA. Date of Surgery: 02/21/2024 with same day discharge Current deficits: Difficulty with all mobility secondary to recent right TKA and pain. Visit Number 4 Time In: 1:20 pm; Time out: 2:00 pm Total time: 40 minutes 34136 TherEx x 30 minutes [id number] gait training x 10 minutes Precautions: WBAT Right LE; Right TKA protocol; Recent left TKA Pain Management: The patient is complaining of pain located in the Righ knee and thigh region. Pain rating 4/10. The pain is improved by ice and medication 1 every 6 hours of Candia. The pain is aggravated by activity. The pain is described as aching, throbbing and stiffness. Prior level of function: Ambulation: antalgic gait pattern on Right LE. Assistive devices: FWW, cane ADL and IADL: Independent. Home Environment: Pt lives with her in a one story home with 3 steps to enter. Has lift chair. Objective General Visit Information: Passive ROM: Left knee 10 to 90 degrees. Joint play: hypomobile. Manual muscle testing: Left knee flexion/extension: 3-/5. Palpation: Minimal warmth upon palpation, consistent with post-operative conditions. Surgical incision intact with Mepilex dressing which was removed this date. Incision intact with shaunna. with no signs of drainage. New Mepilex dressing applied. Special tests: Negative Yosef Sign. Functional Mobility: Bed Mobility: SBA Sit to Stand: SBA Stair Negotiation: TBA Ambulation: Patient is ambulating with mild antalgic type pattern with SWW, step to gait pattern; good heel to toe gait pattern; SBA. Pt ambulated approx 50' x 2 with slow rose. Limited knee flexion during swing phase. Tinetti Gait and Balance Assessment: Sitting balance: Steady, safe = 1. Rises from chair: needs assistance= 1. Attempts to rise: needs assistance= 1. Immediate standing balance (first 5 seconds): Steady but uses walker or other support = 1. Standing balance: Steady but uses walker or other support = 1. Nudged: Staggers, grabs, catches self = 1. Eyes closed: Steady = 1. Turning 360 degrees: Discontinuous steps = 0 , Unsteady (grabs, staggers) = 0. Sitting down: Uses arms or not a smooth motion = 1. Balance Score: 8/16. Indication of gait: No hesitancy = 1. Step of length and height: Step to = 0. Foot clearance: L foot clears floor = 1 , R foot clears floor = 1. Step symmetry: Right and left step length no equal = 0. Step continuity: Stopping or discontinuity between steps = 0. Path: Mild/moderate deviation or uses w/ aid = 1. Trunk: No sway but flex knees or back or uses arms for stability = 1. Walking time: Heels apart = 0. Gait score: 07/17. Total Score = Balance + Gait 02/02. Tinetti tool score: < = 18 High. Physical Education Intervention Physical Therapy Education: Pt was educated on the importance of cyrotherapy and elevation. Reviewed proper pillow placement under LE to maintain good extension. Stressed the importance also of ambulating at at least every other hour for 2-5 minutes duration and completion of HEP 2x/day. Patient was educated with regards to signs and symptoms to monitor with respect to blood clots and infection. Therapeutic Exercise : Pt completed right LE supine exercises of glut sets, quad sets, heel slides and ankle pumps (hourly) at this time, 10x. Pt completed 10x of knee flexion with gentle flexion stretch with plastic bag. Added standing heel raises, marches, hip abduction, mii squats, ham curls and standing SLR.. Completed 3 x 3 reps of AAROM LAQ. Completed standing knee flexion on stool with gentle rocking and holds to assist with flexion stretching, 10x. Added static knee extension on chair x 5 minutes. HEP updated and instructed. Gait Training: Gait training this date with FWW with instruction for reciprocal gait pattern for right affective LE with increase cues for heel to toe pattern and knee flexion during swing; less WB on walker with Ue's. Therapeutic Activity: Worked on proper sit to stand, stand to sit transfers this date from bedside with good carryover with SBA with verbal cues for proper sequencing and hand placement. Assessment & Plan Right quads continue to be very weak but slowly gaining strength. ROM making good progress each session. Assessment Impairments: abnormal gait, abnormal or restricted ROM, impaired balance, impaired physical strength, pain with function and weight-bearing intolerance Barriers to therapy: Increased pain, edema,bruising and knee weakness. Prognosis: good Goals Short Term Goals Goal 1 : Patient will be independent with HEP with good compliance and independence. Goal 2 : Patient will demonstrate 3-90 degrees of passive range of motion of right knee flexion. Goal 3 : Patient will ambulate >6 minutes modified independently with wheeled walker with good reciprocal gait pattern. Goal 4 : Patient will demonstrate all sit< >stand transfers and supine< >sit bed mobility, modified independent with no cues for proper sequencing. Goal 5 : Patient will ascend/descend 3-4 steps with AD with supervision, step to gait pattern. [facility] Goals Goal 1 : Patient will demonstrate 0-110 degrees of active Right knee flexion in order to improve indpendence with ambulation up and down steps. Goal 2 : Patient will demonstrate 4+/5 or better right knee strength in order to safely return to activities of interest. Goal 3 : Patient will ambulate community distances on even and uneven surfaces, independently with no AD, normalized gait pattern and < 1/10 report of pain in leftt knee. Goal 4 : Pt will ascend/descend 12+ steps with railing with reciprical gait pattern independently. Goal 5 : Patient will demonstrate good static and dynamic standing balance for >15 mintues without LOB or increase in knee pain. Goal 6 : Pt will improve Tinetti Balance test to 28/28 to indicate no fall risk. Plan Planned modality interventions: cryotherapy Planned therapy interventions: bed mobility training, dressing changes, functional ROM exercises, gait training, home exercise program, manual therapy, neuromuscular re-education, soft tissue mobilization, strengthening, stretching, therapeutic activities and transfer training Frequency: 3x/week. Duration in weeks: 6 Treatment plan discussed with: patient Plan details: Educated to continue icing and elevating. documented in this encounter [facility] 02-28-2024 History of Present illness Narrative Physical Therapy Physical Therapy Daily visit Patient Name: Wilmer Navarro Today's Date: 02/28/2024 Subjective Current Problem: s/p right TKA with pain and difficulty walking. Pt is being seen today for a follow up visitfor s/p right TKA. Date of Surgery: 02/21/2024 with same day discharge Current deficits: Difficulty with all mobility secondary to recent right TKA and pain. Visit Number 0. Time In: 9:59 am; Time out: 10:37 am Total time: 38 minutes [id number] TherEx x 30 minutes [id number] gait training x 8 minutes Precautions: WBAT Right LE; Right TKA protocol; Recent left TKA Pain Management: The patient is complaining of pain located in the Righ knee and thigh region. Pain rating 4/10. The pain is improved by ice and medication 1-2 every 4 hours of Candia. The pain is aggravated by activity. The pain is described as aching, throbbing and stiffness. Re-educated patient that she can take 1 every 4 or 2 every 6 hours; patient receptive. Prior level of function: Ambulation: antalgic gait pattern on Right LE. Assistive devices: FWW, cane ADL and IADL: Independent. Home Environment: Pt lives with her in a one story home with 3 steps to enter. Has lift chair. Objective General Visit Information: Passive ROM: Left knee 10 to 90 degrees. Joint play: hypomobile. Manual muscle testing: Left knee flexion/extension: 3-/5. Palpation: Minimal warmth upon palpation, consistent with post-operative conditions. Surgical incision intact with Mepilex dressing with no signs of drainage. Special tests: Negative Yosef Sign. Functional Mobility: Bed Mobility: SBA Sit to Stand: SBA Stair Negotiation: TBA Ambulation: Patient is ambulating with mild antalgic type pattern with SWW, step to gait pattern; good heel to toe gait pattern; SBA. Pt ambulated approx 50' x 2 with slow rose. Limited knee flexion during swing phase. Tinetti Gait and Balance Assessment: Sitting balance: Steady, safe = 1. Rises from chair: needs assistance= 1. Attempts to rise: needs assistance= 1. Immediate standing balance (first 5 seconds): Steady but uses walker or other support = 1. Standing balance: Steady but uses walker or other support = 1. Nudged: Staggers, grabs, catches self = 1. Eyes closed: Steady = 1. Turning 360 degrees: Discontinuous steps = 0 , Unsteady (grabs, staggers) = 0. Sitting down: Uses arms or not a smooth motion = 1. Balance Score: 8/16. Indication of gait: No hesitancy = 1. Step of length and height: Step to = 0. Foot clearance: L foot clears floor = 1 , R foot clears floor = 1. Step symmetry: Right and left step length no equal = 0. Step continuity: Stopping or discontinuity between steps = 0. Path: Mild/moderate deviation or uses w/ aid = 1. Trunk: No sway but flex knees or back or uses arms for stability = 1. Walking time: Heels apart = 0. Gait score: 07/17. Total Score = Balance + Gait 02/02. Tinetti tool score: < = 18 High. Physical Education Intervention Physical Therapy Education: Pt was educated on the importance of cyrotherapy and elevation. Reviewed proper pillow placement under LE to maintain good extension. Stressed the importance also of ambulating at at least every other hour for 2-5 minutes duration and completion of HEP 2x/day. Patient was educated with regards to signs and symptoms to monitor with respect to blood clots and infection. Therapeutic Exercise : Pt completed right LE supine exercises of glut sets, quad sets, heel slides and ankle pumps (hourly) at this time, 10x. Pt completed 10x of knee flexion with gentle flexion stretch with plastic bag. Added standing heel raises, marches, hip abduction, mii squats, ham curls and standing SLR.. Completed 3 x 3 reps of AAROM LAQ. Added standing knee flexion on stool with gentle rocking and holds to assist with flexion stretching, 10x. HEP updated and instructed. Gait Training: Gait training this date with FWW with instruction for step to gait pattern for right affective LE with increase cues for heel to toe pattern and knee flexion during swing. Therapeutic Activity: Worked on proper sit to stand, stand to sit transfers this date from bedside with good carryover with SBA with verbal cues for proper sequencing and hand placement. Assessment & Plan Right quads continue to be very weak. Assessment Impairments: abnormal gait, abnormal or restricted ROM, impaired balance, impaired physical strength, pain with function and weight-bearing intolerance Barriers to therapy: Increased pain, edema,bruising and knee weakness. Prognosis: good Goals Short Term Goals Goal 1 : Patient will be independent with HEP with good compliance and independence. Goal 2 : Patient will demonstrate 3-90 degrees of passive range of motion of right knee flexion. Goal 3 : Patient will ambulate >6 minutes modified independently with wheeled walker with good reciprocal gait pattern. Goal 4 : Patient will demonstrate all sit< >stand transfers and supine< >sit bed mobility, modified independent with no cues for proper sequencing. Goal 5 : Patient will ascend/descend 3-4 steps with AD with supervision, step to gait pattern. [facility] Goals Goal 1 : Patient will demonstrate 0-110 degrees of active Right knee flexion in order to improve indpendence with ambulation up and down steps. Goal 2 : Patient will demonstrate 4+/5 or better right knee strength in order to safely return to activities of interest. Goal 3 : Patient will ambulate community distances on even and uneven surfaces, independently with no AD, normalized gait pattern and < 1/10 report of pain in leftt knee. Goal 4 : Pt will ascend/descend 12+ steps with railing with reciprical gait pattern independently. Goal 5 : Patient will demonstrate good static and dynamic standing balance for >15 mintues without LOB or increase in knee pain. Goal 6 : Pt will improve Tinetti Balance test to 28/28 to indicate no fall risk. Plan Planned modality interventions: cryotherapy Planned therapy interventions: bed mobility training, dressing changes, functional ROM exercises, gait training, home exercise program, manual therapy, neuromuscular re-education, soft tissue mobilization, strengthening, stretching, therapeutic activities and transfer training Frequency: 3x/week. Duration in weeks: 6 Treatment plan discussed with: patient Plan details: Educated to continue icing and elevating. documented in this encounter [facility] 02-24-2024 History of Present illness Narrative Physical Therapy Physical Therapy Daily visit Patient Name: Wilmer Navarro Today's Date: 02/24/2024 Subjective Current Problem: s/p right TKA with pain and difficulty walking. Pt is being seen today for a follow up visitfor s/p right TKA. Date of Surgery: 02/21/2024 with same day discharge Current deficits: Difficulty with all mobility secondary to recent right TKA and pain. Visit Number 2. Time In: 10:30 am; Time out: 11:00 am Total time: 30 minutes [id number] TherEx x 15 minutes [id number] gait training x 15 minutes Precautions: WBAT Right LE; Right TKA protocol; Recent left TKA Pain Management: The patient is complaining of pain located in the Righ knee and thigh region. Pain rating 4/10. The pain is improved by ice and medication 1 every 4 hours of Candia. The pain is aggravated by activity. The pain is described as aching, throbbing and stiffness. Prior level of function: Ambulation: antalgic gait pattern on Right LE. Assistive devices: FWW, cane ADL and IADL: Independent. Home Environment: Pt lives with her in a one story home with 3 steps to enter. Has lift chair. Objective General Visit Information: Passive ROM: Left knee 10 to 70 degrees. Joint play: hypomobile. Manual muscle testing: Left knee flexion/extension: 3-/5. Palpation: Minimal warmth upon palpation, consistent with post-operative conditions. Surgical incision intact with Mepilex dressing with no signs of drainage. Special tests: Negative Yosef Sign. Functional Mobility: Bed Mobility: SBA Sit to Stand: SBA Stair Negotiation: TBA Ambulation: Patient is ambulating with mild antalgic type pattern with SWW, step to gait pattern; good heel to toe gait pattern; SBA. Pt ambulated approx 50' x 2 with slow rose. Limited knee flexion during swing phase. Tinetti Gait and Balance Assessment: Sitting balance: Steady, safe = 1. Rises from chair: needs assistance= 1. Attempts to rise: needs assistance= 1. Immediate standing balance (first 5 seconds): Steady but uses walker or other support = 1. Standing balance: Steady but uses walker or other support = 1. Nudged: Staggers, grabs, catches self = 1. Eyes closed: Steady = 1. Turning 360 degrees: Discontinuous steps = 0 , Unsteady (grabs, staggers) = 0. Sitting down: Uses arms or not a smooth motion = 1. Balance Score: 8/16. Indication of gait: No hesitancy = 1. Step of length and height: Step to = 0. Foot clearance: L foot clears floor = 1 , R foot clears floor = 1. Step symmetry: Right and left step length no equal = 0. Step continuity: Stopping or discontinuity between steps = 0. Path: Mild/moderate deviation or uses w/ aid = 1. Trunk: No sway but flex knees or back or uses arms for stability = 1. Walking time: Heels apart = 0. Gait score: 12. Total Score = Balance + Gait 02/02. Tinetti tool score: < = 18 High. Physical Education Intervention Physical Therapy Education: Pt was educated on the importance of cyrotherapy and elevation. Reviewed proper pillow placement under LE to maintain good extension. Stressed the importance also of ambulating at at least every other hour for 2-5 minutes duration and completion of HEP 2x/day. Patient was educated with regards to signs and symptoms to monitor with respect to blood clots and infection. Therapeutic Exercise : Pt completed right LE supine exercises of glut sets, quad sets, heel slides and ankle pumps (hourly) at this time, 10x. Pt completed 10x of knee flexion with gentle flexion stretch with plastic bag. Added standing heel raises, marches and hip abduction. Completed 3 x 3 reps of AAROM LAQ. HEP updated and instructed. Gait Training: Gait training this date with FWW with instruction for step to gait pattern for right affective LE with increase cues for heel to toe pattern and knee flexion during swing. Therapeutic Activity: Worked on proper sit to stand, stand to sit transfers this date from bedside with good carryover with SBA with verbal cues for proper sequencing and hand placement. Assessment & Plan Assessment Impairments: abnormal gait, abnormal or restricted ROM, impaired balance, impaired physical strength, pain with function and weight-bearing intolerance Barriers to therapy: Increased pain, edema,bruising and knee weakness. Prognosis: good Goals Short Term Goals Goal 1 : Patient will be independent with HEP with good compliance and independence. Goal 2 : Patient will demonstrate 3-90 degrees of passive range of motion of right knee flexion. Goal 3 : Patient will ambulate >6 minutes modified independently with wheeled walker with good reciprocal gait pattern. Goal 4 : Patient will demonstrate all sit< >stand transfers and supine< >sit bed mobility, modified independent with no cues for proper sequencing. Goal 5 : Patient will ascend/descend 3-4 steps with AD with supervision, step to gait pattern. Claims Adjuster Supervisor Goals Goal 1 : Patient will demonstrate 0-110 degrees of active Right knee flexion in order to improve indpendence with ambulation up and down steps. Goal 2 : Patient will demonstrate 4+/5 or better right knee strength in order to safely return to activities of interest. Goal 3 : Patient will ambulate community distances on even and uneven surfaces, independently with no AD, normalized gait pattern and < 1/10 report of pain in leftt knee. Goal 4 : Pt will ascend/descend 12+ steps with railing with reciprical gait pattern independently. Goal 5 : Patient will demonstrate good static and dynamic standing balance for >15 mintues without LOB or increase in knee pain. Goal 6 : Pt will improve Tinetti Balance test to 28/28 to indicate no fall risk. Plan Planned modality interventions: cryotherapy Planned therapy interventions: bed mobility training, dressing changes, functional ROM exercises, gait training, home exercise program, manual therapy, neuromuscular re-education, soft tissue mobilization, strengthening, stretching, therapeutic activities and transfer training Frequency: 3x/week. Duration in weeks: 6 Treatment plan discussed with: patient Plan details: Educated to continue icing and elevating. documented in this encounter [facility] 02-23-2024 Note Progress Note-Physic barbra Patient: WILMER NAVARRO Age: 38 years Sex: Female : 1985 Associated Diagnoses: None Author: Paul Gupta Jr, DO Postoperative Information Postoperative disposition: Postoperative disposition: To PACU. Optimetrix number: Optimetrix number [id number]. Anesthetic utilized: General. Regional: Spinal. Health Status Allergies: Allergic Reactions (Selected) Severity Not Documented DiphenhydrAMINE- Unknown. Latex- Hives. PredniSONE- Unknown. Physical Examination Vital Signs 02/21/2024 13:38 EST Heart Rate Monitored 78 bpm SpO2 100 % 02/21/2024 13:37 EST Systolic Blood Pressure 111 mmHg Diastolic Blood Pressure 74 mmHg Blood Pressure Location Right arm Mean Arterial Pressure, Monitered 86 mmHg 02/21/2024 13:37 EST Respiratory Rate 16 br/min 02/21/2024 13:37 EST SpO2 96 % 02/21/2024 13:30 EST Temperature Temporal Artery 36.0 DegC LOW Heart Rate Monitored 75 bpm Respiratory Rate Monitored 13 br/min Systolic Blood Pressure 119 mmHg Diastolic Blood Pressure 82 mmHg SpO2 97 % Pain Assessment: Controlled. General: Awake, Alert, Appropriate. Respiratory: Adequate air exchange. Cardiovascular: Stable, Normal peripheral perfusion. Neurological: Normal sensory function, Normal motor function. Assessment Anesthetic outcome No anesthetic complications noted. Adequate pain relief. able to void without difficulty, able to ambulate with assist, tolerating PO intake, no N/V. Review / Management Condition: Stable. Plan Transfer/Discharge: Pt with an acute episode of bradycardia in PACU after dose of hydromorphone. HR in lower 30's with low BP and patient feeling faint. Patient given Atropine 0.4mg IV from crash cart. Immediate improvement of symptoms and HR greater than 50. Pt stable will monitor.. Transfer/Discharge Discharge when meets criteria ( To home ). [facility] Comment on above: Result Comment: Elec tronically Signed By: Paul Gupta Jr, DO\.br\Date and Time Signed: 02/23/24 09:53 EST 02-23-2024 Note Progress Note-Anna Marie belle Patient: WILMER NAVARRO Age: 38 years Sex: Female : 1985 Associated Diagnoses: None Author: Paul Gupta Jr, DO Preoperative Information Anesthesia Preop Info: Time patient last ate or drank 02/21/2024 00:00:00. Anesthesia history: Patient history: None. Family history+: None. Informed consent: Signed by patient. Re-evaluation prior to induction: Initial evaluation reviewed: No significant change. Review of Systems Eye: Negative except as documented in history of present illness. Ear/Nose/Mouth/Throat: Negative except as documented in history of present illness. Respiratory: Negative except as documented in history of present illness. Cardiovascular: Negative except as documented in history of present illness. Musculoskeletal: Negative except as documented in history of present illness. Neurologic: Negative except as documented in history of present illness. Health Status Allergies: Allergic Reactions (Selected) Severity Not Documented DiphenhydrAMINE- Unknown. Latex- Hives. PredniSONE- Unknown. Problem list: All Problems Hypothyroid / SNOMED CT 61719489 / Confirmed Depression / SNOMED CT 40477697 / Confirmed Resolved: Syncope / SNOMED CT [id number] Resolved: GERD - Gastro-esophageal reflux disease / SNOMED CT 8300098513 Resolved: Asthma / SNOMED CT 227191900 Histories Procedure history: History of hernia repair (9297991484). History of hernia repair (0902586719). Cholecystectomy ([id number]). Social History Social & Psychosocial Habits Alcohol 01/25/2024 Risk Assessment: Denies Alcohol Use Substance Abuse 01/25/2024 Risk Assessment: Denies Substance Abuse Tobacco 01/25/2024 Risk Assessment: Denies Tobacco Use . Physical Examination Airway: Mallampati classification: II (soft palate, fauces, uvula visible). Respiratory: adequate air exchange. Cardiovascular: Regular rhythm. Plan [place] [employer] (ASA) physical status classification: Class IV. Anesthetic Preoperative Plan: Anesthesia General. [facility] Comment on above: Result Comment: Elec tronically Signed By: Paul Gupta Jr, DO\Date and Time Signed: 02/23/24 09:49 EST 02-22-2024 History of Present illness Narrative Physical Therapy Physical Therapy Evaluation Patient Name: Wilmer Navarro Today's Date: 02/22/2024 Subjective Current Problem: s/p right TKA with pain and difficulty walking. Pt is being seen today for initial evaluation for s/p right TKA. Pt complained of some light headiness prior to session but none occurred during therapy session. Date of Surgery: 02/21/2024 with same day discharge Current deficits: Difficulty with all mobility secondary to recent right TKA and pain. Visit Number 1. Time In: 10:30 am; Time out: 11:15 am Total time: 45 minutes [id number] PT Eval x 20 minutes [id number] TherEx x 15 minutes [id number] gait training x 10 minutes Precautions: WBAT Right LE; Right TKA protocol; Recent left TKA Pain Management: The patient is complaining of pain located in the Righ knee and thigh region. Pain rating 6/10. The pain is improved by ice and medication 1 every 4 hours of percocet. The pain is aggravated by activity. The pain is described as aching, throbbing and stiffness. Prior level of function: Ambulation: antalgic gait pattern on Right LE. Assistive devices: FWW, cane ADL and IADL: Independent. Home Environment: Pt lives with her in a one story home with 3 steps to enter. Has lift chair. Objective General Visit Information: Passive ROM: Left knee 10 to 75-80 degrees. Joint play: hypomobile. Manual muscle testing: Left knee flexion/extension: 3-/5. Palpation: Minimal warmth upon palpation, consistent with post-operative conditions. Surgical incision intact with Mepilex dressing with no signs of drainage. Special tests: Negative Yosef Sign. Functional Mobility: Bed Mobility: SBA Sit to Stand: SBA Stair Negotiation: TBA Ambulation: Patient is ambulating with mild antalgic type pattern with SWW, step to gait pattern; good heel to toe gait pattern; SBA. Pt ambulated approx 50' x 2 with slow rose. Limited knee flexion during swing phase. Tinetti Gait and Balance Assessment: Sitting balance: Steady, safe = 1. Rises from chair: needs assistance= 1. Attempts to rise: needs assistance= 1. Immediate standing balance (first 5 seconds): Steady but uses walker or other support = 1. Standing balance: Steady but uses walker or other support = 1. Nudged: Staggers, grabs, catches self = 1. Eyes closed: Steady = 1. Turning 360 degrees: Discontinuous steps = 0 , Unsteady (grabs, staggers) = 0. Sitting down: Uses arms or not a smooth motion = 1. Balance Score: 8/16. Indication of gait: No hesitancy = 1. Step of length and height: Step to = 0. Foot clearance: L foot clears floor = 1 , R foot clears floor = 1. Step symmetry: Right and left step length no equal = 0. Step continuity: Stopping or discontinuity between steps = 0. Path: Mild/moderate deviation or uses w/ aid = 1. Trunk: No sway but flex knees or back or uses arms for stability = 1. Walking time: Heels apart = 0. Gait score: 07/17. Total Score = Balance + Gait 02/02. Tinetti tool score: < = 18 High. Physical Education Intervention Physical Therapy Education: Pt was educated on the importance of cyrotherapy and elevation. Reviewed proper pillow placement under LE to maintain good extension. Stressed the importance also of ambulating at at least every other hour for 2-5 minutes duration and completion of HEP 2x/day. Patient was educated with regards to signs and symptoms to monitor with respect to blood clots and infection. Therapeutic Exercise : Pt completed right LE supine exercises of glut sets, quad sets, heel slides and ankle pumps (hourly) at this time, 10x. Pt completed 10x of knee flexion with gentle flexion stretch with plastic bag. HEP issued and instructed. Gait Training: Gait training this date with FWW with instruction for step to gait pattern for right affective LE with increase cues for heel to toe pattern and knee flexion during swing. Therapeutic Activity: Worked on proper sit to stand, stand to sit transfers this date from bedside with good carryover with SBA with verbal cues for proper sequencing and hand placement. Assessment & Plan Assessment Impairments: abnormal gait, abnormal or restricted ROM, impaired balance, impaired physical strength, pain with function and weight-bearing intolerance Barriers to therapy: Increased pain, edema,bruising and knee weakness. Prognosis: good Goals Short Term Goals Goal 1 : Patient will be independent with HEP with good compliance and independence. Goal 2 : Patient will demonstrate 3-90 degrees of passive range of motion of right knee flexion. Goal 3 : Patient will ambulate >6 minutes modified independently with wheeled walker with good reciprocal gait pattern. Goal 4 : Patient will demonstrate all sit< >stand transfers and supine< >sit bed mobility, modified independent with no cues for proper sequencing. Goal 5 : Patient will ascend/descend 3-4 steps with AD with supervision, step to gait pattern. Claims Adjuster Supervisor Goals Goal 1 : Patient will demonstrate 0-110 degrees of active Right knee flexion in order to improve indpendence with ambulation up and down steps. Goal 2 : Patient will demonstrate 4+/5 or better right knee strength in order to safely return to activities of interest. Goal 3 : Patient will ambulate community distances on even and uneven surfaces, independently with no AD, normalized gait pattern and < 1/10 report of pain in leftt knee. Goal 4 : Pt will ascend/descend 12+ steps with railing with reciprical gait pattern independently. Goal 5 : Patient will demonstrate good static and dynamic standing balance for >15 mintues without LOB or increase in knee pain. Goal 6 : Pt will improve Tinetti Balance test to 28/28 to indicate no fall risk. Plan Planned modality interventions: cryotherapy Planned therapy interventions: bed mobility training, dressing changes, functional ROM exercises, gait training, home exercise program, manual therapy, neuromuscular re-education, soft tissue mobilization, strengthening, stretching, therapeutic activities and transfer training Frequency: 3x/week. Duration in weeks: 6 Treatment plan discussed with: patient Plan details: Educated to continue icing and elevating. Pt will continues to benefit from PT interventions to improve overall strength, ROM and functional mobility to achieve PLOF. documented in this encounter [facility] 02-21-2024 Hospital Discharge instructions Patient Education 02/21/2024 12:52:37 How to Use an Incentive Spirometer How to Use an Incentive Spirometer An incentive spirometer is a tool that measures how well you are filling your lungs with each breath. Learning to take long, deep breaths using this tool can help you keep your lungs clear and active. This may help to reverse or lessen your chance of developing breathing (pulmonary) problems, especially infection. You may be asked to use a spirometer: After a surgery. If you have a lung problem or a history of smoking. After a long period of time when you have been unable to move or be active. If the spirometer includes an indicator to show the highest number that you have reached, your health care provider or respiratory therapist will help you set a goal. Keep a log of your progress as told by your health care provider. What are the risks? Breathing too quickly may cause dizziness or cause you to pass out. Take your time so you do not get dizzy or light-headed. If you are in pain, you may need to take pain medicine before doing incentive spirometry. It is harder to take a deep breath if you are having pain. How to use your incentive spirometer 1.Sit up on the edge of your bed or on a chair. 2.Hold the incentive spirometer so that it is in an upright position. 3.Before you use the spirometer, breathe out normally. 4.Place the mouthpiece in your mouth. Make sure your lips are closed tightly around it. 5.Breathe in slowly and as deeply as you can through your mouth, causing the piston or the ball to rise toward the top of the chamber. 6.Hold your breath for 3 5 seconds, or for as long as possible. If the spirometer includes a women's basketball coach indicator, use this to guide you in breathing. Slow down your breathing if the indicator goes above the marked areas. 7.Remove the mouthpiece from your mouth and breathe out normally. The piston or ball will return to the bottom of the chamber. 8.Rest for a few seconds, then repeat the steps 10 or more times. Take your time and take a few normal breaths between deep breaths so that you do not get dizzy or light-headed. Do this every 1 2 hours when you are awake. 9.If the spirometer includes a goal marker to show the highest number you have reached (best effort), use this as a goal to work toward during each repetition. 10.After each set of 10 deep breaths, cough a few times. This will help to make sure that your lungs are clear. If you have an incision on your chest or abdomen from surgery, place a pillow or a rolled-up towel firmly against the incision when you cough. This can help to reduce pain while taking deep breaths and coughing. General tips When you are able to get out of bed: ?Walk around often. ?Continue to take deep breaths and cough in order to clear your lungs. Keep using the incentive spirometer until your health care provider says it is okay to stop using it. If you have been in the hospital, you may be told to keep using the spirometer at home. Contact a health care provider if: You are having difficulty using the spirometer. You have trouble using the spirometer as often as instructed. Your pain medicine is not giving enough relief for you to use the spirometer as told. You have a fever. Get help right away if: You develop shortness of breath. You develop a cough with bloody mucus from the lungs. You have fluid or blood coming from an incision site after you cough. Summary An incentive spirometer is a tool that can help you learn to take long, deep breaths to keep your lungs clear and active. You may be asked to use a spirometer after a surgery, if you have a lung problem or a history of smoking, or if you have been inactive for a long period of time. Use your incentive spirometer as instructed every 1 2 hours while you are awake. If you have an incision on your chest or abdomen, place a pillow or a rolled-up towel firmly against your incision when you cough. This will help to reduce pain. Get help right away if you have shortness of breath, you cough up bloody mucus, or blood comes from your incision when you cough. This information is not intended to replace advice given to you by your health care provider. Make sure you discuss any questions you have with your health care provider. Document Revised: 05/13/2020 Document Reviewed: 05/13/2020 [facility] Patient Education 2023 [place]. 02/21/2024 12:52:35 Knee Cryocuff Patient Instructions - FT (CUSTOM) 02/21/2024 12:52:33 Post Op Patient Instructions - FT (Custom) (CUSTOM) 02/16/2024 15:42:30 Khan - Total Knee Arthroplasty (CUSTOM) [place], [place] [facility] DISCHARGE INSTRUCTIONS TOTAL KNEE ARTHROPLASTY INCISION CARE: Mepilex dressing can get wet with showers. Please remove 10 days after surgery per instruction sheet. If shaunna present, please coordinate removal 21 days after surgery with office staff. Please notify the office if any increase in redness, tenderness, drainage, fever, or wound separation is noted beyond this point. MEDICATIONS: You may resume your home medications at the time of discharge. Aspirin 325 mg EC oral once a day for 4 weeks for blood clot prevention with meals. Please notify your doctor if you have a stomach sensitivity to Aspirin or history of previous stomach ulcers. Pain medication has been prescribed as well. You may continue to use the pain medication every four hours as needed. Any narcotic pain medication can cause side effects including stomach upset, constipation, or light-headedness. You should not drive or operate machinery, or use alcohol while using the narcotic pain medication. You should not use other pain medications with this prescription pain medication unless further directed by your physician. PHYSICAL THERAPY: Continue the range of motion and strengthening exercises initiated in Physical Therapy in the hospital. [facility] Discharge Instructs for TKAPage 2 Physical Therapy Cont. Continue weight bearing, as ordered, to the operated knee for four to six weeks as directed in Physical Therapy, or until your strength is improved and Physical Therapy will then allow you to progress to full weight. This will be with the use of a walker or crutches initially. Assistive devices can be weaned or modified with physical therapy Physical therapy as begun in the hospital will continue at home, possible with the dental assistant instructor of Home Health Physical Therapy or in the hospital as an outpatient. When you have become independent with the physical therapy program, this will then be discontinued as a supervised program and you will be instructed to continue the physical therapy exercises at home. Your exercises are palacio to successful rehabilitation. You should gain full extension first, hopefully before hospital discharge, then continue to do the exercises to maintain this, and gain 90 degrees flexion by one month post-op. Do the exercises daily, twice if preferred. DRIVING: Please do not drive for 4-6 weeks pending therapy progress. Driving too soon, you are considered an impaired paratransit driver, and this could be a problem. It is therefore advised not to drive until after your first office visit following surgery FOLLOW-UP OFFICE VISIT: ____ Chan Khan, DO [facility] [address] [place] [id number] Reviewed: 4-08 Follow Up Care 01/13/2024 16:25:51 With:GUILLERMO Villarreal Address: [address] [place] [phone] (1) When:03/23/2024 15:00:00 Comments:Keep scheduled appointment [facility] 02-21-2024 Note Patient Education - Text Pulmonary Medicine How to Use an Incentive Spirometer An incentive spirometer is a tool that measures how well you are filling your lungs with each breath. Learning to take long, deep breaths using this tool can help you keep your lungs clear and active. This may help to reverse or lessen your chance of developing breathing (pulmonary) problems, especially infection. You may be asked to use a spirometer: ??? After a surgery. ??? If you have a lung problem or a history of smoking. ??? After a long period of time when you have been unable to move or be active. If the spirometer includes an indicator to show the highest number that you have reached, your health care provider or respiratory therapist will help you set a goal. Keep a log of your progress as told by your health care provider. What are the risks? Breathing too quickly may cause dizziness or cause you to pass out. Take your time so you do not get dizzy or light-headed. ??? If you are in pain, you may need to take pain medicine before doing incentive spirometry. It is harder to take a deep breath if you are having pain. How to use your incentive spirometer 1. Sit up on the edge of your bed or on a chair. 2. Hold the incentive spirometer so that it is in an upright position. 3. Before you use the spirometer, breathe out normally. 4. Place the mouthpiece in your mouth. Make sure your lips are closed tightly around it. 5. Breathe in slowly and as deeply as you can through your mouth, causing the piston or the ball to rise toward the top of the chamber. 6. Hold your breath for 3?5 seconds, or for as long as possible. ??? If the spirometer includes a women's basketball coach indicator, use this to guide you in breathing. Slow down your breathing if the indicator goes above the marked areas. 7. Remove the mouthpiece from your mouth and breathe out normally. The piston or ball will return to the bottom of the chamber. 8. Rest for a few seconds, then repeat the steps 10 or more times. ??? Take your time and take a few normal breaths between deep breaths so that you do not get dizzy or light-headed. ??? Do this every 1?2 hours when you are awake. 9. If the spirometer includes a goal marker to show the highest number you have reached (best effort), use this as a goal to work toward during each repetition. 10. After each set of 10 deep breaths, cough a few times. This will help to make sure that your lungs are clear. ??? If you have an incision on your chest or abdomen from surgery, place a pillow or a rolled-up towel firmly against the incision when you cough. This can help to reduce pain while taking deep breaths and coughing. General tips ??? When you are able to get out of bed: ? Walk around often. ? Continue to take deep breaths and cough in order to clear your lungs. ??? Keep using the incentive spirometer until your health care provider says it is okay to stop using it. If you have been in the hospital, you may be told to keep using the spirometer at home. Contact a health care provider if: ??? You are having difficulty using the spirometer. ??? You have trouble using the spirometer as often as instructed. ??? Your pain medicine is not giving enough relief for you to use the spirometer as told. ??? You have a fever. Get help right away if: ??? You develop shortness of breath. ??? You develop a cough with bloody mucus from the lungs. ??? You have fluid or blood coming from an incision site after you cough. Summary ??? An incentive spirometer is a tool that can help you learn to take long, deep breaths to keep your lungs clear and active. ??? You may be asked to use a spirometer after a surgery, if you have a lung problem or a history of smoking, or if you have been inactive for a long period of time. ??? Use your incentive spirometer as instructed every 1?2 hours while you are awake. ??? If you have an incision on your chest or abdomen, place a pillow or a rolled-up towel firmly against your incision when you cough. This will help to reduce pain. ??? Get help right away if you have shortness of breath, you cough up bloody mucus, or blood comes from your incision when you cough. This information is not intended to replace advice given to you by your health care provider. Make sure you discuss any questions you have with your health care provider. Document Revised: 05/13/2020 Document Reviewed: 05/13/2020 [facility] Patient Education ? 2023 [place]. [place] [facility] DISCHARGE INSTRUCTIONS TOTAL KNEE ARTHROPLASTY INCISION CARE: Mepilex dressing can get wet with showers. Please remove 10 days after surgery per instruction sheet. If shaunna present, please coordinate removal 21 days after surgery with office (more content not included)... [facility] 02-16-2024 Note Patient Education - Text [place], [place] [facility] DISCHARGE INSTRUCTIONS TOTAL KNEE ARTHROPLASTY INCISION CARE: Mepilex dressing can get wet with showers. Please remove 10 days after surgery per instruction sheet. If shaunna present, please coordinate removal 21 days after surgery with office staff. Please notify the office if any increase in redness, tenderness, drainage, fever, or wound separation is noted beyond this point. MEDICATIONS: You may resume your home medications at the time of discharge. Aspirin 325 mg EC oral once a day for 4 weeks for blood clot prevention with meals. Please notify your doctor if you have a stomach sensitivity to Aspirin or history of previous stomach ulcers. Pain medication has been prescribed as well. You may continue to use the pain medication every four hours as needed. Any narcotic pain medication can cause side effects including stomach upset, constipation, or light-headedness. You should not drive or operate machinery, or use alcohol while using the narcotic pain medication. You should not use other pain medications with this prescription pain medication unless further directed by your physician. PHYSICAL THERAPY: Continue the range of motion and strengthening exercises initiated in Physical Therapy in the hospital. [facility] Discharge Instructs for TKA Page 2 Physical Therapy Cont. Continue weight bearing, as ordered, to the operated knee for four to six weeks as directed in Physical Therapy, or until your strength is improved and Physical Therapy will then allow you to progress to full weight. This will be with the use of a walker or crutches initially. Assistive devices can be weaned or modified with physical therapy Physical therapy as begun in the hospital will continue at home, possible with the dental assistant instructor of Home Health Physical Therapy or in the hospital as an outpatient. When you have become independent with the physical therapy program, this will then be discontinued as a supervised program and you will be instructed to continue the physical therapy exercises at home. Your exercises are palacio to successful rehabilitation. You should gain full extension first, hopefully before hospital discharge, then continue to do the exercises to maintain this, and gain 90 degrees flexion by one month post-op. Do the exercises daily, twice if preferred. DRIVING: Please do not drive for 4-6 weeks pending therapy progress. Driving too soon, you are considered an impaired paratransit driver, and this could be a problem. It is therefore advised not to drive until after your first office visit following surgery FOLLOW-UP OFFICE VISIT: ____ Chan Khan, DO [facility] [address] [place] [id number] Reviewed: 06-13 [facility] 02-08-2024 History of Present illness Narrative Associated Problem(s): Psoriasis ([facility]) Needs refill of triamcinolone 0.1% ointment, also saw Rheumatology, considering treatment in the future documented in this encounter [facility] 02-08-2024 History of Present illness Narrative Associated Problem(s): Encounter for screening mammogram for malignant neoplasm of breast Is already scheduled for 2024 Associated Problem(s): Arthritis of knee, right Is scheduled for TKA right knee, 02/21/24 Pt is having surgery on with dr khan. Pt would not like any more refills after her last refill coming up on the nasal spray and inhaler Images from the original note were not included. Wilmer Navarro is a 38 y.o. female presents with chief complaint of Aura's Thyroiditis HPI: Thyroid Problem Presents for follow-up visit. Patient reports no anxiety, constipation, diarrhea, fatigue, hair loss, heat intolerance, hoarse voice, leg swelling, palpitations, tremors, weight gain or weight loss. The symptoms have been stable. Asthma She complains of difficulty breathing (at HS), shortness of breath and wheezing (at night, thinks more d/t weather changes). There is no chest tightness, cough, hemoptysis or hoarse voice. The current episode started more than 1 year ago. The problem occurs intermittently. The problem has been unchanged. Pertinent negatives include no appetite change, chest pain, ear pain, fever, headaches, heartburn, myalgias, rhinorrhea, sore throat or weight loss. Her symptoms are aggravated by change in weather, pollen, exposure to fumes and exposure to smoke. Relieved by: ICS/LABA and rescue inhaler, singulair. She reports significant improvement on treatment. Risk factors for lung disease include smoking/tobacco exposure. Depression Visit Type: follow-up Patient presents with the following symptoms: shortness of breath. Patient is not experiencing: anhedonia, confusion, dizziness, excessive worry, insomnia, irritability, malaise, memory impairment, nervousness/anxiety, palpitations, panic, suicidal ideas, weight gain and weight loss. Frequency of symptoms: occasionally Severity: mild Sleep quality: good Compliance with medications: 76-100% Anxiety Presents for follow-up visit. Symptoms include shortness of breath. Patient reports no chest pain, confusion, dizziness, excessive worry, insomnia, irritability, malaise, nausea, nervous/anxious behavior, palpitations, panic or suicidal ideas. Symptoms occur occasionally. The severity of symptoms is mild. The quality of sleep is good. Compliance with medications is 76-100%. SUBJECTIVE: MEDICATIONS: Current Outpatient Medications Medication Instructions albuterol HFA 90 mcg/act inhaler 2 puffs, Inhalation, Every 6 hours PRN budesonide-formoterol (Symbicort) 160-4.5 MCG/ACT inhaler 2 puffs, Inhalation, 2 times daily, Rinse mouth with water after use to reduce aftertaste and incidence of candidiasis. Do not swallow. buPROPion XL (WELLBUTRIN XL) 300 mg, Oral, Every morning celecoxib (CELEBREX) 200 mg, Daily famotidine (PEPCID) 20 mg, Oral, Nightly hydrOXYzine pamoate (VISTARIL) 25 mg, Oral, Every 8 hours PRN levothyroxine (SYNTHROID, LEVOXYL) 75 mcg, Oral, Every morning montelukast (SINGULAIR) 10 mg, Oral, Nightly pantoprazole (PROTONIX) 40 mg, Oral, Daily before breakfast, Do not crush, chew, or split. Potassium 99 MG tablet Every 24 hours traMADol (ULTRAM) 50 mg, Daily PRN triamcinolone (Nasacort) 55 MCG/ACT nasal inhaler instill 2 (TWO) sprays IN EACH NOSTRIL DAILY ALLERGIES: Allergies Allergen Reactions Antihistamines, Diphenhydramine-Type Prednisone Diphenhydramine Hives, Itching, Rash and Unknown Latex Hives, Itching, Rash and Unknown REVIEW OF SYMPTOMS: Review of Systems Constitutional: Negative for appetite change, chills, fatigue, fever, irritability, weight gain and weight loss. HENT: Negative for congestion, ear pain, hoarse voice, rhinorrhea and sore throat. Eyes: Negative for pain, discharge, redness and visual disturbance. Respiratory: Positive for shortness of breath and wheezing (at night, thinks more d/t weather changes). Negative for cough and hemoptysis. Cardiovascular: Negative for chest pain, palpitations and leg swelling. Gastrointestinal: Negative for abdominal pain, blood in stool, constipation, diarrhea, heartburn, nausea and vomiting. Genitourinary: Negative for difficulty urinating, dysuria and frequency. Musculoskeletal: Positive for arthralgias. Negative for back pain, joint swelling and myalgias. Skin: Negative for rash and wound. Neurological: Negative for dizziness, tremors, seizures, syncope and headaches. Psychiatric/Behavioral: Positive for depression. Negative for behavioral problems, confusion, self-injury and suicidal ideas. The patient is not nervous/anxious and does not have insomnia. Hematological: Does not bruise/bleed easily. Endocrine: Negative for heat intolerance, polydipsia, polyphagia and polyuria. Allergic/Immunologic: Negative for environmental allergies and food allergies. PAST MEDICAL HISTORY Past Medical History: Diagnosis Date Arthritis Borderline abnormal thyroid function test COVID-19 virus detected Depression ([facility]) 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[facility]) Morbid obesity with BMI of 50.0-59.9, adult ([facility]) 04/13/2023 Umbilical hernia Past Surgical History: Procedure Laterality Date GALLBLADDER SURGERY Laparoscopic HERNIA REPAIR Umbilical MENISCECTOMY Right 02/28/2020 Dr Garcia OTHER SURGICAL HISTORY 2009 Procedure:NUBAIN & PHENERGAN;Disease:ACUTE CHOLEYCYSTITIS TONSILLECTOMY 05/11/2007 and Adenoidectomy family history includes ADD / ADHD in her brother; Asthma in her mother and sister; Cancer in an other family member; Diabetes in her mother; Lymphoma in an other family member. OBJECTIVE: Visit Vitals BP 120/88 (BP Location: Left arm, Patient Position: Sitting, BP Cuff Size: Large adult long) Pulse 89 Temp 98.6 F (Temporal) Resp 20 Ht 5' 6 Wt 296 lb 3.2 oz SpO2 98% BMI 47.81 kg/m Smoking Status Never BSA 2.5 m Physical Exam Vitals and nursing note reviewed. Constitutional: General: She is not in acute distress. Appearance: Normal appearance. She is obese. She is not ill-appearing or diaphoretic. HENT: Head: Normocephalic and atraumatic. Right Ear: Tympanic membrane, ear canal and external ear normal. Left Ear: Tympanic membrane, ear canal and external ear normal. Nose: Rhinorrhea present. No congestion. Mouth/Throat: Mouth: Mucous membranes are moist. Pharynx: No oropharyngeal exudate or posterior oropharyngeal erythema. Eyes: Extraocular Movements: Extraocular movements intact. Conjunctiva/sclera: Conjunctivae normal. Neck: Vascular: No carotid bruit. Cardiovascular: Rate and Rhythm: Normal rate and regular rhythm. Pulses: Normal pulses. Heart sounds: Normal heart sounds. Pulmonary: Effort: Pulmonary effort is normal. Breath sounds: Normal breath sounds. No wheezing, rhonchi or rales. Abdominal: General: Bowel sounds are normal. There is no distension. Palpations: Abdomen is soft. There is no mass. Tenderness: There is no abdominal tenderness. Musculoskeletal: Cervical back: Normal range of motion and neck supple. Right lower leg: No edema. Left lower leg: No edema. Lymphadenopathy: Cervical: No cervical adenopathy. Skin: General: Skin is warm and dry. Capillary Refill: Capillary refill takes 2 to 3 seconds. Findings: No rash. Neurological: General: No focal deficit present. Mental Status: She is alert and oriented to person, place, and time. Psychiatric: Mood and Affect: Mood normal. Behavior: Behavior normal. Thought Content: Thought content normal. Judgment: Judgment normal. ASSESSMENT AND PLAN: No follow-ups on file. Problem List Items Addressed This Visit Arthritis of knee, right Is scheduled for TKA right knee, 02/21/24 Anxiety and depression ([facility]) - Primary Currently taking buproprion XL, vistaril prn No changes in doses of meds Relevant Medications buPROPion XL (Wellbutrin XL) 300 MG 24 hr tablet hydrOXYzine pamoate (Vistaril) 25 MG capsule GERD (gastroesophageal reflux disease) Continue with PPI Recommendations: freq small meals, nothing to eat or drink at least 2 hours prior to bed, limit caffeine, alcohol, as well as spicy foods Meds to limit or avoid if possible: NSAIDS Elevate HOB if possible Continue with weight loss Relevant Medications famotidine (Pepcid) 20 MG tablet pantoprazole (ProtoNix) 40 MG EC tablet RESOLVED: Morbid obesity with BMI of 50.0-59.9, adult ([facility]) 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CMS/HCC) Currently taking levo at 75mcg daily Labs yearly and as needed based on change in symptoms or change med dose Relevant Medications levothyroxine (Synthroid, Levoxyl) 75 MCG tablet Mild persistent asthma without complication (CMS/HCC) Symbicort for maintenance, signulair, as well as albuterol prn Is UTD on flu shot as well Morbid obesity due to excess calories (CMS/HCC) Discussed with patient their BMI (actual, verses recommended). We have also discussed lifestyle modifications: attempts to perform physical activity as chronic conditions allow, also to monitor dietary intake: increasing protein/fruits/veggies and lowering carb intake (unless contraindicated). Limit sodas, juices, and sugary drinks. Was at 326 in 10/29, now down 30 pounds, doing KETO diet, does report she feels better Encounter for screening mammogram for malignant neoplasm of breast Relevant Orders Bilateral screening mammogram Other Visit Diagnoses Moderate persistent asthma without complication (CMS/HCC) Relevant Medications budesonide-formoterol (Symbicort) 160-4.5 MCG/ACT inhaler montelukast (Singulair) 10 MG tablet Associated Problem(s): Anxiety and depression (CMS/HCC) Currently taking buproprion XL, vistaril prn No changes in doses of meds Associated Problem(s): 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CMS/HCC) Currently taking levo at 75mcg daily Labs yearly and as needed based on change in symptoms or change med dose Associated Problem(s): Morbid obesity due to excess calories (CMS/HCC) Discussed with patient their BMI (actual, verses recommended). We have also discussed lifestyle modifications: attempts to perform physical activity as chronic conditions allow, also to monitor dietary intake: increasing protein/fruits/veggies and lowering carb intake (unless contraindicated). Limit sodas, juices, and sugary drinks. Was at 326 in 10/29, now down 30 pounds, doing KETO diet, does report she feels better Associated Problem(s): GERD (gastroesophageal reflux disease) Continue with PPI Recommendations: freq small meals, nothing to eat or drink at least 2 hours prior to bed, limit caffeine, alcohol, as well as spicy foods Meds to limit or avoid if possible: NSAIDS Elevate HOB if possible Continue with weight loss Associated Problem(s): Mild persistent asthma without complication (CMS/HCC) Symbicort for maintenance, signulair, as well as albuterol prn Is UTD on flu shot as well documented in this encounter [facility] 02-08-2024 Instructions Elvie Greer NP - 02/08/2024 8:40 AM EST Continue with weight loss journey you are doing great!!! No dose changes in meds No labs due at this time documented in this encounter [facility] 01-13-2024 History of Present illness Narrative Images from the original note were not included. GENERAL HISTORY AND PHYSICAL: NAME: Wilmer Navarro : 1985 CHIEF COMPLAINT: Right knee pain and swelling, requesting total knee replacement. HISTORY OF PRESENT ILLNESS: Wilmer is here as a 38-year-old female with end stage degenerative changes to the right knee. She is bone on bone to the medial and patellofemoral joint. Wilmer is here, seen multiple providers for her right knee. She does have a known history of psoriasis. She has tried Meloxicam. No Celebrex. She has tried ibuprofen, Tylenol, Aleve. She has tried bracing, physical therapy as well as aquatics. She had cortisone injections with minimal relief. She had Visco supplementation a couple of months ago with a provider in [place]. She was instructed on weight loss. She states she also has an abdominal hernia that they will not fix because of her BMI of 54 as well. She has no fever or chills, no arthralgias or myalgias. She does get buckling and giving out. Her spouse is present and supportive. PAST MEDICAL HISTORY: Past Medical History: Diagnosis Date Arthritis Borderline abnormal thyroid function test COVID-19 virus detected Depression ([facility]) 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[facility]) Morbid obesity with BMI of 50.0-59.9, adult ([facility]) 04/13/2023 Umbilical hernia PAST SURGICAL HISTORY: Past Surgical History: Procedure Laterality Date GALLBLADDER SURGERY Laparoscopic HERNIA REPAIR Umbilical MENISCECTOMY Right 02/28/2020 Dr Garcia OTHER SURGICAL HISTORY 2009 Procedure:NUBAIN & PHENERGAN;Disease:ACUTE CHOLEYCYSTITIS TONSILLECTOMY 05/11/2007 and Adenoidectomy SOCIAL HISTORY: Social History Occupational History Not on file Tobacco Use Smoking status: Never Smokeless tobacco: Never Vaping Use Vaping status: Never Used Substance and Sexual Activity Alcohol use: Never Drug use: Never Sexual activity: Never ALLERGIES: Allergies Allergen Reactions Antihistamines, Diphenhydramine-Type Prednisone Diphenhydramine Hives, Itching, Rash and Unknown Latex Hives, Itching, Rash and Unknown MEDICATIONS: Current Outpatient Medications Medication Instructions albuterol HFA 90 mcg/act inhaler 2 puffs, Inhalation, Every 6 hours PRN budesonide-formoterol (Symbicort) 160-4.5 MCG/ACT inhaler 2 puffs, Inhalation, 2 times daily, Rinse mouth with water after use to reduce aftertaste and incidence of candidiasis. Do not swallow. buPROPion XL (WELLBUTRIN XL) 300 mg, Oral, Every morning celecoxib (CELEBREX) 200 mg, Daily famotidine (PEPCID) 20 mg, Oral, Nightly hydrOXYzine pamoate (VISTARIL) 25 mg, Oral, Every 8 hours PRN levothyroxine (SYNTHROID, LEVOXYL) 75 mcg, Oral, Every morning montelukast (SINGULAIR) 10 mg, Oral, Nightly pantoprazole (PROTONIX) 40 mg, Oral, Daily before breakfast, Do not crush, chew, or split. Potassium 99 MG tablet Every 24 hours traMADol (ULTRAM) 50 mg, Daily PRN triamcinolone (Nasacort) 55 MCG/ACT nasal inhaler instill 2 (TWO) sprays IN EACH NOSTRIL DAILY REVIEW OF SYSTEMS: The review of systems, history and current medications list are all reviewed today. Vitals: Visit Vitals Ht 5' 6 Wt 298 lb BMI 48.10 kg/m Smoking Status Never BSA 2.51 m PHYSICAL EXAM: On physical exam, she is alert and oriented. Vital signs are stable. She has a large soft tissue envelope. The right knee has hypertrophic changes that are moderate with mild varus deformity. There is tenderness noted of the medial and patellofemoral joint. Crepitance is present. Collateral ligaments are intact. She gets near full extension, flexion to 105 with soft tissue adipose impingement. Ankle edema is mild. She has a large thigh, soft tissue and buttock envelope. X-rays and imaging permanently saved to the patient's record were reviewed AP, lateral and sunrise views shows grade IV severe degenerative changes of the medial and patellofemoral joint with varus deformity. There are moderate degenerative changes of the left knee. There is no acute fracture, dislocation, tumor or infection seen. Surgical History and Physical: GENERAL AND PSYCHOLOGICAL: The patient is alert and oriented for age. HEAD AND E.E.N.T.: The skull is normocephalic. There is no mass or sign of trauma. NECK: The neck is supple. There is good range of motion. There is no mass or adenopathy appreciated. The thyroid is not enlarged. CARDIAC: The heart is regular. There is no murmur or ectopy appreciated. LUNGS: Inspiratory and expiratory excursions are symmetrical. The lung arce are clear in all quadrants. ABDOMEN: The texture is soft. Bowel sounds are heard well in all quadrants. There is no tenderness to palpation. There is no organomegaly appreciated. OSTEOPATHIC AND STRUCTURAL: There is no gross evidence of kyphosis, lordosis, scoliosis, or apparent leg length discrepancy, with no acute tissue texture changes in sitting or standing positions. ASSESSMENT: Right knee end stage osteoarthritis with varus deformity. Failure of arthroscopic cortisone Visco supplementation injections. Antalgic gait. Obesity, BMI greater than 54. PLAN: We have done an extensive course of arthroscopic management, corticosteroid injections, Visco supplementation. She has tried bracing, ice, Tylenol and anti-inflammatory. She has done a good job with losing weight and has her BMI down six points to 46. She has pain, swelling and stiffness. She has night disruption. She has buckling and giving out. She has failed an extensive course of conservative care and has no other option than total knee replacement. She has done well with anesthesia in the past without deep venous thrombosis or pulmonary embolism. She is aware her weight is a comorbidity increasing her perioperative risk of morbidity and mortality as well as catastrophic failure and or implant loosening. Lengthy discussion is encountered. Spouse is present. The nature of the findings were discussed at length. Total knee arthroplasty was reviewed at length. The patient has exhausted conservative management and has activities of daily living disruption as dictated above. The patient has attempted significant prolonged conservative care and is starting to have difficulty getting dressed, walking simple distances such as 20-30' and has significant night disruption the majority of the time. The patient has exhausted all conservative management as well as corticosteroid and Visco supplementation injections on numerous occasions. We discussed total knee replacements with the implants utilized, hospital course, rehab time and commitment, as well as time off work were all reviewed. The risks, benefits, complications, and reasonable expectations of this procedure were discussed. These include but are not limited to continued pain, dissatisfaction, antalgic gait, infection, infection requiring multiple surgeries with IV antibiotics with cement spacer, possible amputation, stiffness, stiffness requiring manipulation, bleeding, bleeding requiring transfusion, hematoma, wound dehiscence, nerve, vessel or tendon injury, foot drop, anesthesia complications, blood clot, pulmonary embolism, myocardial infarction, arrhythmia, stroke and were all reviewed. The potential for product recall or failure was discussed. The patient is aware that results cannot be guaranteed. terminal clerk antibiotic prophylaxis with dental or invasive surgical work was discussed. We had a very lengthy discussion regarding the pros, cons, risks and benefits and reasonable expectations. The patient voices verbal understanding of which I am personally involved with the informed consent process. Consent forms are signed and witnessed. Numerous questions were answered. Routine testing will be arranged and I will see the patient post operative for repeat x-ray and exam. Patient is discharged in stable condition. Consent forms are signed and witnessed for right total knee arthroplasty compounded by morbid obesity, BMI greater than 40. She will undergo routine presurgical testing and scheduling and move forward in the near future. I will see her back postoperatively. She voices verbal understanding. She is discharged in stable condition. Chan Khan D.O. Cosigned by Chan Khan DO at 01/17/2024 9:34 PM EST documented in this encounter [facility] 11-09-2023 History of Present illness Narrative Associated Problem(s): Arthritis of knee, right Continue with ortho and weight loss Will refer to rheum for evaluation as well Associated Problem(s): Psoriasis (CMS/HCC) Will send to Rheumatology for evaluation for psoriatic arthritis Associated Problem(s): Anxiety and depression (CMS/HCC) Doing well on current meds Associated Problem(s): Morbid obesity with BMI of 50.0-59.9, adult (CMS/HCC) Doing well Associated Problem(s): 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CMS/HCC) Bump up dose thyroid to 75mcg Recheck labs in 8 weeks Pt is currently on keto- ortho seen her and will not do knee surgery due to her BMI is too high, her whole house hold is dieting and she has lost 16lbs since 10/21 Her goal weight is to loose 50lbs to be able to do the surgery. Both knees are not in good shape right one is bone on bone and left one is not fare behind. Pt is not taking tramadol, ibprophen, and aleve. Pt is taking celebrex but does not seem to be helping. Medication is helping with the swallowing issues. Food is not getting stuck just her pills now. Images from the original note were not included. Wilmer Navarro is a 37 y.o. female presents with chief complaint of No chief complaint on file. HPI: See N Eric note for HPI Working with ortho on knee, if she looses 50 pounds can have a knee replacement Is currently doing KETO and is doing very well Thyroid Problem Presents for follow-up visit. Symptoms include weight loss. Patient reports no anxiety, constipation, depressed mood, diarrhea, dry skin, fatigue, hoarse voice, leg swelling, menstrual problem, palpitations, tremors or weight gain. The symptoms have been stable. SUBJECTIVE: MEDICATIONS: Current Outpatient Medications Medication Instructions albuterol HFA 90 mcg/act inhaler 2 puffs, Inhalation, Every 6 hours PRN budesonide-formoterol (Symbicort) 160-4.5 MCG/ACT inhaler 2 puffs, Inhalation, 2 times daily, Rinse mouth with water after use to reduce aftertaste and incidence of candidiasis. Do not swallow. buPROPion XL (WELLBUTRIN XL) 300 mg, Oral, Every morning celecoxib (CELEBREX) 200 mg, Oral, Daily famotidine (PEPCID) 20 mg, Oral, Nightly hydrOXYzine pamoate (VISTARIL) 25 mg, Oral, Every 8 hours PRN levothyroxine (SYNTHROID) 75 mcg, Oral, Daily before breakfast montelukast (SINGULAIR) 10 mg, Oral, Nightly pantoprazole (PROTONIX) 40 mg, Oral, Daily before breakfast, Do not crush, chew, or split. Potassium 99 MG tablet Every 24 hours traMADol (ULTRAM) 50 mg, Oral, Daily PRN triamcinolone (Nasacort) 55 MCG/ACT nasal inhaler 2 sprays, Each Nostril, Daily ALLERGIES: Allergies Allergen Reactions Antihistamines, Diphenhydramine-Type Prednisone Diphenhydramine Hives, Itching, Rash and Unknown Latex Hives, Itching, Rash and Unknown REVIEW OF SYMPTOMS: Review of Systems Constitutional: Positive for weight loss. Negative for appetite change, chills, fatigue, fever and weight gain. HENT: Negative for congestion, ear pain, hoarse voice and sore throat. Eyes: Negative for pain, discharge, redness and visual disturbance. Respiratory: Negative for cough, shortness of breath and wheezing. Cardiovascular: Negative for chest pain, palpitations and leg swelling. Gastrointestinal: Negative for abdominal pain, blood in stool, constipation, diarrhea, nausea and vomiting. Genitourinary: Negative for difficulty urinating, dysuria, frequency and menstrual problem. Musculoskeletal: Positive for arthralgias. Negative for back pain, joint swelling and myalgias. Skin: Negative for rash and wound. Neurological: Negative for dizziness, tremors, seizures, syncope and headaches. Psychiatric/Behavioral: Negative for behavioral problems, self-injury and suicidal ideas. The patient is not nervous/anxious. Hematological: Does not bruise/bleed easily. Endocrine: Negative for polydipsia, polyphagia and polyuria. Allergic/Immunologic: Negative for environmental allergies and food allergies. PAST MEDICAL HISTORY Past Medical History: Diagnosis Date Arthritis Borderline abnormal thyroid function test COVID-19 virus detected Depression ([facility]) 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[facility]) Morbid obesity with BMI of 50.0-59.9, adult ([facility]) 04/13/2023 Umbilical hernia Past Surgical History: Procedure Laterality Date GALLBLADDER SURGERY Laparoscopic HERNIA REPAIR Umbilical MENISCECTOMY Right 02/28/2020 Dr Garcia OTHER SURGICAL HISTORY 2009 Procedure:NUBAIN & PHENERGAN;Disease:ACUTE CHOLEYCYSTITIS TONSILLECTOMY 05/11/2007 and Adenoidectomy family history includes ADD / ADHD in her brother; Asthma in her mother and sister; Cancer in an other family member; Diabetes in her mother; Lymphoma in an other family member. OBJECTIVE: Visit Vitals BP 128/86 (BP Location: Left arm, Patient Position: Sitting, BP Cuff Size: Large adult long) Pulse 84 Temp 97.8 F (Temporal) Wt 310 lb 3.2 oz SpO2 100% BMI 51.62 kg/m Smoking Status Never BSA 2.54 m Physical Exam Vitals and nursing note reviewed. Constitutional: General: She is not in acute distress. Appearance: Normal appearance. HENT: Head: Normocephalic and atraumatic. Right Ear: External ear normal. Left Ear: External ear normal. Nose: Nose normal. Mouth/Throat: Mouth: Mucous membranes are moist. Eyes: Extraocular Movements: Extraocular movements intact. Conjunctiva/sclera: Conjunctivae normal. Cardiovascular: Rate and Rhythm: Normal rate and regular rhythm. Pulses: Normal pulses. Heart sounds: Normal heart sounds. Pulmonary: Effort: Pulmonary effort is normal. Breath sounds: Normal breath sounds. Abdominal: General: Bowel sounds are normal. There is no distension. Palpations: Abdomen is soft. There is no mass. Tenderness: There is no abdominal tenderness. Musculoskeletal: General: Normal range of motion. Cervical back: Normal range of motion and neck supple. Skin: General: Skin is warm and dry. Capillary Refill: Capillary refill takes 2 to 3 seconds. Findings: No rash. Neurological: General: No focal deficit present. Mental Status: She is alert and oriented to person, place, and time. Psychiatric: Mood and Affect: Mood normal. Behavior: Behavior normal. Thought Content: Thought content normal. Judgment: Judgment normal. ASSESSMENT AND PLAN: No follow-ups on file. Problem List Items Addressed This Visit Arthritis of knee, right Continue with ortho and weight loss Will refer to rheum for evaluation as well Anxiety and depression (CMS/HCC) Doing well on current meds Relevant Medications buPROPion XL (Wellbutrin XL) 300 MG 24 hr tablet GERD (gastroesophageal reflux disease) Relevant Medications famotidine (Pepcid) 20 MG tablet pantoprazole (Protonix) 40 MG EC tablet Moderate persistent asthma without complication (CMS/HCC) Relevant Medications budesonide-formoterol (Symbicort) 160-4.5 MCG/ACT inhaler montelukast (Singulair) 10 MG tablet Psoriasis (CMS/HCC) Will send to Rheumatology for evaluation for psoriatic arthritis Relevant Orders Ambulatory referral to Rheumatology Morbid obesity with BMI of 50.0-59.9, adult ([facility]) Doing well 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[facility]) - Primary Bump up dose thyroid to 75mcg Recheck labs in 8 weeks Relevant Medications levothyroxine (Synthroid) 75 MCG tablet Other Relevant Orders TSH T4, free documented in this encounter [facility] 04-22-2023 History of Present illness Narrative Images from the original note were not included. Chief Complaint Patient presents with Right Knee - Follow-up HISTORY OF PRESENT ILLNESS: Wilmer Navarro is an 37 y.o. @ female. [...] Oral montelukast (SINGULAIR) 10 mg, Oral, Nightly [place]-3 Fatty Acids (Fish Oil) 1000 MG capsule [...] develop for requiring urgent evaluation. [employer] documented in this encounter [facility] 04-14-2023 Telephone encounter Note [facility] about pt's traMADol (Ultram) 50 MG tablet. They need it verified. You wrote a quanity of 15 days but the directions say 1 tablet PO for 10 days [facility] 04-14-2023 Miscellaneous Notes je[facility] from [facility] calling about pt's traMADol (Ultram) 50 MG tablet. They need it verified. You wrote a quanity of 15 days but the directions say 1 tablet PO for 10 days documented in this encounter [facility] 02-26-2023 Evaluation note Encounter Date Diagnosis Assessment [...] PCP if no improvement in 2-3 days. [employer] Other Evaluation + Plan note Future Appointments Appointment Date:02/21/2024 11:15:00 AM Scheduled Provider: Location:[facility] Appointment Type:Surgery FT [facility] Evaluation note* Diagnosis Chronic pain of right knee documented in this encounter [facility] HealthcareEvaluation note* Diagnosis Primary osteoarthritis of right knee- Primary Right knee pain, unspecified chronicity documented in this encounter [facility] HealthcareEvaluation noteNo [facility]* Diagnosis Onset Date Resolution Status Cellulitis of arm, left [facility] Work Phone: Evaluation note* Diagnosis Anxiety and depression (CMS/HCC)- Primary Elevated glucose Other abnormal glucose Hypomagnesemia Disorders of magnesium metabolism Gastroesophageal reflux disease, unspecified whether esophagitis present Morbid obesity with BMI of 50.0-59.9, adult (CMS/HCC) Moderate persistent asthma without complication (CMS/HCC) Chronic pain of right knee Anxiety and depression (CMS/HCC)- Primary Abnormal TSH Chronic pain of right knee Non-recurrent acute suppurative otitis media of left ear without spontaneous rupture of tympanic membrane 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[facility]/HCC)- Primary Chronic lymphocytic thyroiditis Anxiety and depression ([facility]) Morbid obesity with BMI of 50.0-59.9, adult ([facility]) Arthritis of knee, right Cellulitis of lower extremity, unspecified laterality- Primary Moderate persistent asthma without complication ([facility]) Ventral hernia without obstruction or gangrene Unspecified ventral hernia without mention of obstruction or gangrene Gastroesophageal reflux disease, unspecified whether esophagitis present Morbid obesity with BMI of 50.0-59.9, adult ([facility]) 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[facility]) Chronic lymphocytic thyroiditis Anxiety and depression ([facility]) Gastroesophageal reflux disease, unspecified whether esophagitis present- Primary 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[facility]) Chronic lymphocytic thyroiditis Moderate persistent asthma without complication ([facility]) Morbid obesity with BMI of 50.0-59.9, adult ([facility]) Arthritis of knee, right 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 Chronic lymphocytic thyroiditis Morbid obesity with BMI of 50.0-59.9, adult ([facility]) Psoriasis ([facility]) Other psoriasis Anxiety and depression ([facility]) Gastroesophageal reflux disease, unspecified whether esophagitis present Moderate persistent asthma without complication ([facility]) Arthritis of knee, right Anxiety and depression ([facility]) 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[facility]) Chronic lymphocytic thyroiditis documented in this encounter [facility]* Diagnosis Anxiety and depression ([facility]/HCC)- Primary Elevated glucose Other abnormal glucose Hypomagnesemia Disorders of magnesium metabolism Gastroesophageal reflux disease, unspecified whether esophagitis present Morbid obesity with BMI of 50.0-59.9, adult ([facility]) Moderate persistent asthma without complication ([facility] Chronic pain of right knee Anxiety and depression ([facility])- Primary Abnormal TSH Chronic pain of right knee Non-recurrent acute suppurative otitis media of left ear without spontaneous rupture of tympanic membrane 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 Chronic lymphocytic thyroiditis Anxiety and depression ([facility]) Morbid obesity with BMI of 50.0-59.9, adult ([facility]) Arthritis of knee, right Cellulitis of lower extremity, unspecified laterality- Primary Moderate persistent asthma without complication ([facility]) Ventral hernia without obstruction or gangrene Unspecified ventral hernia without mention of obstruction or gangrene Gastroesophageal reflux disease, unspecified whether esophagitis present Morbid obesity with BMI of 50.0-59.9, adult ([facility]) 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[facility]) Chronic lymphocytic thyroiditis Anxiety and depression ([facility]) Gastroesophageal reflux disease, unspecified whether esophagitis present- Primary 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[facility]) Chronic lymphocytic thyroiditis Moderate persistent asthma without complication ([facility]) Morbid obesity with BMI of 50.0-59.9, adult ([facility]) Arthritis of knee, right 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 Chronic lymphocytic thyroiditis Morbid obesity with BMI of 50.0-59.9, adult ([facility]) Psoriasis ([facility]) Other psoriasis Anxiety and depression ([facility]) Gastroesophageal reflux disease, unspecified whether esophagitis present Moderate persistent asthma without complication ([facility]) Arthritis of knee, right Pre-op testing- Primary Unspecified pre-operative examination documented in this encounter [facility]* Diagnosis Anxiety and depression ([facility])- Primary Elevated glucose Other abnormal glucose Hypomagnesemia Disorders of magnesium metabolism Gastroesophageal reflux disease, unspecified whether esophagitis present Morbid obesity with BMI of 50.0-59.9, adult ([facility]) Moderate persistent asthma without complication ([facility]) Chronic pain of right knee Anxiety and depression ([facility])- Primary Abnormal TSH Chronic pain of right knee Non-recurrent acute suppurative otitis media of left ear without spontaneous rupture of tympanic membrane 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 Chronic lymphocytic thyroiditis Anxiety and depression ([facility]) Morbid obesity with BMI of 50.0-59.9, adult ([facility]) Arthritis of knee, right Cellulitis of lower extremity, unspecified laterality- Primary Moderate persistent asthma without complication ([facility]) Ventral hernia without obstruction or gangrene Unspecified ventral hernia without mention of obstruction or gangrene Gastroesophageal reflux disease, unspecified whether esophagitis present Morbid obesity with BMI of 50.0-59.9, adult ([facility]) 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[facility]) Chronic lymphocytic thyroiditis Anxiety and depression ([facility]) Gastroesophageal reflux disease, unspecified whether esophagitis present- Primary 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CMS/HCC) Chronic lymphocytic thyroiditis Moderate persistent asthma without complication (CMS/HCC) Morbid obesity with BMI of 50.0-59.9, adult ([facility]) Arthritis of knee, right 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[facility]/HCC)- Primary Chronic lymphocytic thyroiditis Morbid obesity with BMI of 50.0-59.9, adult ([facility]) Psoriasis ([facility]) Other psoriasis Anxiety and depression ([facility]) Gastroesophageal reflux disease, unspecified whether esophagitis present Moderate persistent asthma without complication (CMS/HCC) Arthritis of knee, right Anxiety and depression ([facility]/HCC)- Primary Mild persistent asthma without complication ([facility]) Gastroesophageal reflux disease, unspecified whether esophagitis present Morbid obesity with BMI of 50.0-59.9, adult ([facility]) 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[facility]) Chronic lymphocytic thyroiditis Morbid obesity due to excess calories ([facility]) Moderate persistent asthma without complication ([facility]) Encounter for screening mammogram for malignant neoplasm of breast Arthritis of knee, right Psoriasis ([facility])- Primary Other psoriasis documented in this encounter [facility] HealthcareEvaluation note* Diagnosis Anxiety and depression ([facility])- Primary Elevated glucose Other abnormal glucose Hypomagnesemia Disorders of magnesium metabolism Gastroesophageal reflux disease, unspecified whether esophagitis present Morbid obesity with BMI of 50.0-59.9, adult ([facility]) Moderate persistent asthma without complication ([facility]) Chronic pain of right knee Anxiety and depression ([facility])- Primary Abnormal TSH Chronic pain of right knee Non-recurrent acute suppurative otitis media of left ear without spontaneous rupture of tympanic membrane 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 Chronic lymphocytic thyroiditis Anxiety and depression ([facility]) Morbid obesity with BMI of 50.0-59.9, adult ([facility]) Arthritis of knee, right Cellulitis of lower extremity, unspecified laterality- Primary Moderate persistent asthma without complication ([facility]/HCC) Ventral hernia without obstruction or gangrene Unspecified ventral hernia without mention of obstruction or gangrene Gastroesophageal reflux disease, unspecified whether esophagitis present Morbid obesity with BMI of 50.0-59.9, adult ([facility]) 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[facility]) Chronic lymphocytic thyroiditis Anxiety and depression ([facility]) Gastroesophageal reflux disease, unspecified whether esophagitis present- Primary 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[facility]) Chronic lymphocytic thyroiditis Moderate persistent asthma without complication ([facility]) Morbid obesity with BMI of 50.0-59.9, adult ([facility]) Arthritis of knee, right 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 Chronic lymphocytic thyroiditis Morbid obesity with BMI of 50.0-59.9, adult ([facility]) Psoriasis ([facility]) Other psoriasis Anxiety and depression ([facility]) Gastroesophageal reflux disease, unspecified whether esophagitis present Moderate persistent asthma without complication ([facility]) Arthritis of knee, right Anxiety and depression ([facility])- Primary Mild persistent asthma without complication ([facility]) Gastroesophageal reflux disease, unspecified whether esophagitis present Morbid obesity with BMI of 50.0-59.9, adult ([facility]) 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[facility] Chronic lymphocytic thyroiditis Morbid obesity due to excess calories ([facility]) Moderate persistent asthma without complication ([facility]) Encounter for screening mammogram for malignant neoplasm of breast Arthritis of knee, right documented in this encounter [facility]* Diagnosis Anxiety and depression ([facility])- Primary Elevated glucose Other abnormal glucose Hypomagnesemia Disorders of magnesium metabolism Gastroesophageal reflux disease, unspecified whether esophagitis present Morbid obesity with BMI of 50.0-59.9, adult ([facility]) Moderate persistent asthma without complication ([facility]) Chronic pain of right knee Anxiety and depression ([facility])- Primary Abnormal TSH Chronic pain of right knee Non-recurrent acute suppurative otitis media of left ear without spontaneous rupture of tympanic membrane 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 Chronic lymphocytic thyroiditis Anxiety and depression ([facility]) Morbid obesity with BMI of 50.0-59.9, adult ([facility]) Arthritis of knee, right Cellulitis of lower extremity, unspecified laterality- Primary Moderate persistent asthma without complication ([facility]) Ventral hernia without obstruction or gangrene Unspecified ventral hernia without mention of obstruction or gangrene Gastroesophageal reflux disease, unspecified whether esophagitis present Morbid obesity with BMI of 50.0-59.9, adult ([facility]) 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[facility]) Chronic lymphocytic thyroiditis Anxiety and depression ([facility]) Gastroesophageal reflux disease, unspecified whether esophagitis present- Primary 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CMS/HCC) Chronic lymphocytic thyroiditis Moderate persistent asthma without complication (CMS/HCC) Morbid obesity with BMI of 50.0-59.9, adult ([facility]) Arthritis of knee, right 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[facility]/HCC)- Primary Chronic lymphocytic thyroiditis Morbid obesity with BMI of 50.0-59.9, adult ([facility]) Psoriasis (CMS/HCC) Other psoriasis Anxiety and depression (CMS/[facility]) Gastroesophageal reflux disease, unspecified whether esophagitis present Moderate persistent asthma without complication (CMS/HCC) Arthritis of knee, right Anxiety and depression (CMS/HCC)- Primary Mild persistent asthma without complication (CMS/[facility]) Gastroesophageal reflux disease, unspecified whether esophagitis present Morbid obesity with BMI of 50.0-59.9, adult ([facility]) 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[facility]) Chronic lymphocytic thyroiditis Morbid obesity due to excess calories (CMS/[facility]) Moderate persistent asthma without complication ([facility]) Encounter for screening mammogram for malignant neoplasm of breast Arthritis of knee, right Psoriasis ([facility]/HCC)- Primary Other psoriasis Primary osteoarthritis of right knee- Primary documented in this encounter [facility] HealthcareEvaluation note* Diagnosis Anxiety and depression ([facility]/HCC)- Primary Elevated glucose Other abnormal glucose Hypomagnesemia Disorders of magnesium metabolism Gastroesophageal reflux disease, unspecified whether esophagitis present Morbid obesity with BMI of 50.0-59.9, adult ([facility]) Moderate persistent asthma without complication ([facility]/HCC) Chronic pain of right knee Anxiety and depression ([facility])- Primary Abnormal TSH Chronic pain of right knee Non-recurrent acute suppurative otitis media of left ear without spontaneous rupture of tympanic membrane 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[facility]/HCC)- Primary Chronic lymphocytic thyroiditis Anxiety and depression ([facility]) Morbid obesity with BMI of 50.0-59.9, adult ([facility]) Arthritis of knee, right Cellulitis of lower extremity, unspecified laterality- Primary Moderate persistent asthma without complication ([facility]/HCC) Ventral hernia without obstruction or gangrene Unspecified ventral hernia without mention of obstruction or gangrene Gastroesophageal reflux disease, unspecified whether esophagitis present Morbid obesity with BMI of 50.0-59.9, adult ([facility]) 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[facility]) Chronic lymphocytic thyroiditis Anxiety and depression ([facility]) Gastroesophageal reflux disease, unspecified whether esophagitis present- Primary 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[facility]) Chronic lymphocytic thyroiditis Moderate persistent asthma without complication ([facility]) Morbid obesity with BMI of 50.0-59.9, adult ([facility]) Arthritis of knee, right 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 Chronic lymphocytic thyroiditis Morbid obesity with BMI of 50.0-59.9, adult ([facility]) Psoriasis ([facility]) Other psoriasis Anxiety and depression ([facility]) Gastroesophageal reflux disease, unspecified whether esophagitis present Moderate persistent asthma without complication ([facility]) Arthritis of knee, right Anxiety and depression ([facility])- Primary Mild persistent asthma without complication ([facility] [facility]) Gastroesophageal reflux disease, unspecified whether esophagitis present Morbid obesity with BMI of 50.0-59.9, adult ([facility]) 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[facility]) Chronic lymphocytic thyroiditis Morbid obesity due to excess calories ([facility]) Moderate persistent asthma without complication ([facility]) Encounter for screening mammogram for malignant neoplasm of breast Arthritis of knee, right Psoriasis ([facility])- Primary Other psoriasis Arthritis of knee, right- Primary Acute postoperative pain of right knee Status post right knee replacement Difficulty walking Difficulty in walking documented in this encounter [facility]* Diagnosis 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 Chronic lymphocytic thyroiditis Morbid obesity with BMI of 50.0-59.9, adult ([facility]) Psoriasis ([facility]) Other psoriasis Anxiety and depression ([facility]) Gastroesophageal reflux disease, unspecified whether esophagitis present Moderate persistent asthma without complication ([facility]) Arthritis of knee, right documented in this encounter [facility]* Diagnosis Gastroesophageal reflux disease, unspecified whether esophagitis present documented in this encounter [facility]* Diagnosis Anxiety and depression ([facility])- Primary Elevated glucose Other abnormal glucose Hypomagnesemia Disorders of magnesium metabolism Gastroesophageal reflux disease, unspecified whether esophagitis present Morbid obesity with BMI of 50.0-59.9, adult ([facility]) Moderate persistent asthma without complication ([facility]) Chronic pain of right knee Anxiety and depression ([facility])- Primary Abnormal TSH Chronic pain of right knee Non-recurrent acute suppurative otitis media of left ear without spontaneous rupture of tympanic membrane 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 Chronic lymphocytic thyroiditis Anxiety and depression ([facility]) Morbid obesity with BMI of 50.0-59.9, adult ([facility]) Arthritis of knee, right Cellulitis of lower extremity, unspecified laterality- Primary Moderate persistent asthma without complication ([facility]) Ventral hernia without obstruction or gangrene Unspecified ventral hernia without mention of obstruction or gangrene Gastroesophageal reflux disease, unspecified whether esophagitis present Morbid obesity with BMI of 50.0-59.9, adult ([facility] 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[facility]) Chronic lymphocytic thyroiditis Anxiety and depression ([facility]) Gastroesophageal reflux disease, unspecified whether esophagitis present- Primary 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[facility]) Chronic lymphocytic thyroiditis Moderate persistent asthma without complication ([facility]) Morbid obesity with BMI of 50.0-59.9, adult ([facility]) Arthritis of knee, right 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 Chronic lymphocytic thyroiditis Morbid obesity with BMI of 50.0-59.9, adult ([facility]) Psoriasis ([facility]) Other psoriasis Anxiety and depression ([facility]) Gastroesophageal reflux disease, unspecified whether esophagitis present Moderate persistent asthma without complication ([facility]) Arthritis of knee, right Anxiety and depression ([facility])- Primary Mild persistent asthma without complication ([facility]) Gastroesophageal reflux disease, unspecified whether esophagitis present Morbid obesity with BMI of 50.0-59.9, adult ([facility]) 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[facility] Chronic lymphocytic thyroiditis Morbid obesity due to excess calories ([facility]) Moderate persistent asthma without complication ([facility]) Encounter for screening mammogram for malignant neoplasm of breast Arthritis of knee, right Psoriasis ([facility])- Primary Other psoriasis Arthritis of knee, right- Primary Acute postoperative pain of right knee Status post right knee replacement Difficulty walking Difficulty in walking documented in this encounter [facility]* Diagnosis Anxiety and depression ([facility])- Primary Elevated glucose Other abnormal glucose Hypomagnesemia Disorders of magnesium metabolism Gastroesophageal reflux disease, unspecified whether esophagitis present Morbid obesity with BMI of 50.0-59.9, adult ([facility]) Moderate persistent asthma without complication ([facility]) Chronic pain of right knee Anxiety and depression ([facility])- Primary Abnormal TSH Chronic pain of right knee Non-recurrent acute suppurative otitis media of left ear without spontaneous rupture of tympanic membrane 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[facility]/HCC)- Primary Chronic lymphocytic thyroiditis Anxiety and depression ([facility]) Morbid obesity with BMI of 50.0-59.9, adult ([facility]) Arthritis of knee, right Cellulitis of lower extremity, unspecified laterality- Primary Moderate persistent asthma without complication ([facility]) Ventral hernia without obstruction or gangrene Unspecified ventral hernia without mention of obstruction or gangrene Gastroesophageal reflux disease, unspecified whether esophagitis present Morbid obesity with BMI of 50.0-59.9, adult ([facility]) 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[facility]) Chronic lymphocytic thyroiditis Anxiety and depression ([facility]) Gastroesophageal reflux disease, unspecified whether esophagitis present- Primary 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[facility]) Chronic lymphocytic thyroiditis Moderate persistent asthma without complication ([facility]) Morbid obesity with BMI of 50.0-59.9, adult ([facility]) Arthritis of knee, right 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 Chronic lymphocytic thyroiditis Morbid obesity with BMI of 50.0-59.9, adult ([facility]) Psoriasis ([facility]) Other psoriasis Anxiety and depression ([facility]) Gastroesophageal reflux disease, unspecified whether esophagitis present Moderate persistent asthma without complication ([facility]) Arthritis of knee, right Anxiety and depression ([facility])- Primary Mild persistent asthma without complication ([facility]) Gastroesophageal reflux disease, unspecified whether esophagitis present Morbid obesity with BMI of 50.0-59.9, adult ([facility]) 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[facility]) Chronic lymphocytic thyroiditis Morbid obesity due to excess calories ([facility]) Moderate persistent asthma without complication ([facility]) Encounter for screening mammogram for malignant neoplasm of breast Arthritis of knee, right Psoriasis ([facility])- Primary Other psoriasis Arthritis of knee, right- Primary Acute postoperative pain of right knee Status post right knee replacement Difficulty walking Difficulty in walking documented in this encounter [facility]* Diagnosis Anxiety and depression ([facility])- Primary Elevated glucose Other abnormal glucose Hypomagnesemia Disorders of magnesium metabolism Gastroesophageal reflux disease, unspecified whether esophagitis present Morbid obesity with BMI of 50.0-59.9, adult ([facility]) Moderate persistent asthma without complication ([facility]) Chronic pain of right knee Anxiety and depression ([facility]/HCC)- Primary Abnormal TSH Chronic pain of right knee Non-recurrent acute suppurative otitis media of left ear without spontaneous rupture of tympanic membrane 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[facility]/HCC)- Primary Chronic lymphocytic thyroiditis Anxiety and depression ([facility]) Morbid obesity with BMI of 50.0-59.9, adult ([facility]) Arthritis of knee, right Cellulitis of lower extremity, unspecified laterality- Primary Moderate persistent asthma without complication ([facility]) Ventral hernia without obstruction or gangrene Unspecified ventral hernia without mention of obstruction or gangrene Gastroesophageal reflux disease, unspecified whether esophagitis present Morbid obesity with BMI of 50.0-59.9, adult ([facility]) 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[facility]) Chronic lymphocytic thyroiditis Anxiety and depression ([facility]) Gastroesophageal reflux disease, unspecified whether esophagitis present- Primary 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[facility]/HCC) Chronic lymphocytic thyroiditis Moderate persistent asthma without complication ([facility]) Morbid obesity with BMI of 50.0-59.9, adult ([facility]) Arthritis of knee, right 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[facility]/HCC)- Primary Chronic lymphocytic thyroiditis Morbid obesity with BMI of 50.0-59.9, adult ([facility]) Psoriasis ([facility]) Other psoriasis Anxiety and depression ([facility]) Gastroesophageal reflux disease, unspecified whether esophagitis present Moderate persistent asthma without complication (CMS/HCC) Arthritis of knee, right Anxiety and depression ([facility]/HCC)- Primary Mild persistent asthma without complication ([facility]) Gastroesophageal reflux disease, unspecified whether esophagitis present Morbid obesity with BMI of 50.0-59.9, adult ([facility]) 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[facility]) Chronic lymphocytic thyroiditis Morbid obesity due to excess calories ([facility]) Moderate persistent asthma without complication ([facility]) Encounter for screening mammogram for malignant neoplasm of breast Arthritis of knee, right Psoriasis ([facility])- Primary Other psoriasis Arthritis of knee, right- Primary Acute postoperative pain of right knee Status post right knee replacement Difficulty walking Difficulty in walking documented in this encounter [facility]* Diagnosis Anxiety and depression ([facility]/HCC)- Primary Elevated glucose Other abnormal glucose Hypomagnesemia Disorders of magnesium metabolism Gastroesophageal reflux disease, unspecified whether esophagitis present Morbid obesity with BMI of 50.0-59.9, adult ([facility]) Moderate persistent asthma without complication ([facility]) Chronic pain of right knee Anxiety and depression ([facility])- Primary Abnormal TSH Chronic pain of right knee Non-recurrent acute suppurative otitis media of left ear without spontaneous rupture of tympanic membrane 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 Chronic lymphocytic thyroiditis Anxiety and depression ([facility]) Morbid obesity with BMI of 50.0-59.9, adult ([facility]) Arthritis of knee, right Cellulitis of lower extremity, unspecified laterality- Primary Moderate persistent asthma without complication ([facility]) Ventral hernia without obstruction or gangrene Unspecified ventral hernia without mention of obstruction or gangrene Gastroesophageal reflux disease, unspecified whether esophagitis present Morbid obesity with BMI of 50.0-59.9, adult ([facility]) 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[facility]) Chronic lymphocytic thyroiditis Anxiety and depression ([facility]) Gastroesophageal reflux disease, unspecified whether esophagitis present- Primary 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[facility]) Chronic lymphocytic thyroiditis Moderate persistent asthma without complication ([facility]) Morbid obesity with BMI of 50.0-59.9, adult ([facility]) Arthritis of knee, right 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 Chronic lymphocytic thyroiditis Morbid obesity with BMI of 50.0-59.9, adult ([facility]) Psoriasis ([facility]) Other psoriasis Anxiety and depression ([facility]) Gastroesophageal reflux disease, unspecified whether esophagitis present Moderate persistent asthma without complication ([facility]) Arthritis of knee, right Anxiety and depression ([facility])- Primary Mild persistent asthma without complication ([facility]) Gastroesophageal reflux disease, unspecified whether esophagitis present Morbid obesity with BMI of 50.0-59.9, adult ([facility]) 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[facility]) Chronic lymphocytic thyroiditis Morbid obesity due to excess calories ([facility]) Moderate persistent asthma without complication ([facility]) Encounter for screening mammogram for malignant neoplasm of breast Arthritis of knee, right Psoriasis ([facility])- Primary Other psoriasis Arthritis of knee, right- Primary Acute postoperative pain of right knee Status post right knee replacement Difficulty walking Difficulty in walking documented in this encounter [facility]* Diagnosis Anxiety and depression ([facility]/HCC)- Primary Elevated glucose Other abnormal glucose Hypomagnesemia Disorders of magnesium metabolism Gastroesophageal reflux disease, unspecified whether esophagitis present Morbid obesity with BMI of 50.0-59.9, adult ([facility]) Moderate persistent asthma without complication (CMS/HCC) Chronic pain of right knee Anxiety and depression (CMS/HCC)- Primary Abnormal TSH Chronic pain of right knee Non-recurrent acute suppurative otitis media of left ear without spontaneous rupture of tympanic membrane 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CMS/HCC)- Primary Chronic lymphocytic thyroiditis Anxiety and depression ([facility]) Morbid obesity with BMI of 50.0-59.9, adult ([facility]) Arthritis of knee, right Cellulitis of lower extremity, unspecified laterality- Primary Moderate persistent asthma without complication (CMS/HCC) Ventral hernia without obstruction or gangrene Unspecified ventral hernia without mention of obstruction or gangrene Gastroesophageal reflux disease, unspecified whether esophagitis present Morbid obesity with BMI of 50.0-59.9, adult ([facility]) 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CMS/[facility]) Chronic lymphocytic thyroiditis Anxiety and depression ([facility]) Gastroesophageal reflux disease, unspecified whether esophagitis present- Primary 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CMS/HCC) Chronic lymphocytic thyroiditis Moderate persistent asthma without complication (CMS/HCC) Morbid obesity with BMI of 50.0-59.9, adult ([facility]) Arthritis of knee, right 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[facility]/HCC)- Primary Chronic lymphocytic thyroiditis Morbid obesity with BMI of 50.0-59.9, adult ([facility]) Psoriasis (CMS/HCC) Other psoriasis Anxiety and depression ([facility]) Gastroesophageal reflux disease, unspecified whether esophagitis present Moderate persistent asthma without complication (CMS/HCC) Arthritis of knee, right Anxiety and depression (CMS/HCC)- Primary Mild persistent asthma without complication (CMS/HCC) Gastroesophageal reflux disease, unspecified whether esophagitis present Morbid obesity with BMI of 50.0-59.9, adult ([facility]) 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CMS/HCC) Chronic lymphocytic thyroiditis Morbid obesity due to excess calories (CMS/HCC) Moderate persistent asthma without complication ([facility]) Encounter for screening mammogram for malignant neoplasm of breast Arthritis of knee, right Psoriasis (CMS/HCC)- Primary Other psoriasis Arthritis of knee, right- Primary Acute postoperative pain of right knee Status post right knee replacement Difficulty walking Difficulty in walking documented in this encounter [facility]* Diagnosis Anxiety and depression ([facility]/HCC)- Primary Elevated glucose Other abnormal glucose Hypomagnesemia Disorders of magnesium metabolism Gastroesophageal reflux disease, unspecified whether esophagitis present Morbid obesity with BMI of 50.0-59.9, adult ([facility]) Moderate persistent asthma without complication (CMS/[facility]) Chronic pain of right knee Anxiety and depression (CMS/HCC)- Primary Abnormal TSH Chronic pain of right knee Non-recurrent acute suppurative otitis media of left ear without spontaneous rupture of tympanic membrane 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 Chronic lymphocytic thyroiditis Anxiety and depression ([facility]) Morbid obesity with BMI of 50.0-59.9, adult ([facility]) Arthritis of knee, right Cellulitis of lower extremity, unspecified laterality- Primary Moderate persistent asthma without complication (CMS/[facility]) Ventral hernia without obstruction or gangrene Unspecified ventral hernia without mention of obstruction or gangrene Gastroesophageal reflux disease, unspecified whether esophagitis present Morbid obesity with BMI of 50.0-59.9, adult ([facility]) 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[facility]) Chronic lymphocytic thyroiditis Anxiety and depression ([facility]) Gastroesophageal reflux disease, unspecified whether esophagitis present- Primary 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[facility]) Chronic lymphocytic thyroiditis Moderate persistent asthma without complication (CMS/[facility]) Morbid obesity with BMI of 50.0-59.9, adult ([facility]) Arthritis of knee, right 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 Chronic lymphocytic thyroiditis Morbid obesity with BMI of 50.0-59.9, adult ([facility]) Psoriasis ([facility]) Other psoriasis Anxiety and depression ([facility]) Gastroesophageal reflux disease, unspecified whether esophagitis present Moderate persistent asthma without complication (CMS/[facility]) Arthritis of knee, right Anxiety and depression ([facility]/HCC)- Primary Mild persistent asthma without complication ([facility]) Gastroesophageal reflux disease, unspecified whether esophagitis present Morbid obesity with BMI of 50.0-59.9, adult ([facility]) 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[facility]) Chronic lymphocytic thyroiditis Morbid obesity due to excess calories (CMS/HCC) Moderate persistent asthma without complication (CMS/HCC) Encounter for screening mammogram for malignant neoplasm of breast Arthritis of knee, right Psoriasis (CMS/[facility])- Primary Other psoriasis Arthritis of knee, right- Primary Acute postoperative pain of right knee Status post right knee replacement Difficulty walking Difficulty in walking documented in this encounter [facility] HealthcareEvaluation note* Diagnosis Anxiety and depression ([facility])- Primary Elevated glucose Other abnormal glucose Hypomagnesemia Disorders of magnesium metabolism Gastroesophageal reflux disease, unspecified whether esophagitis present Morbid obesity with BMI of 50.0-59.9, adult ([facility]) Moderate persistent asthma without complication (CMS/HCC) Chronic pain of right knee Anxiety and depression (CMS/[facility])- Primary Abnormal TSH Chronic pain of right knee Non-recurrent acute suppurative otitis media of left ear without spontaneous rupture of tympanic membrane 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CMS/[facility])- Primary Chronic lymphocytic thyroiditis Anxiety and depression ([facility]) Morbid obesity with BMI of 50.0-59.9, adult ([facility]) Arthritis of knee, right Cellulitis of lower extremity, unspecified laterality- Primary Moderate persistent asthma without complication (CMS/[facility]) Ventral hernia without obstruction or gangrene Unspecified ventral hernia without mention of obstruction or gangrene Gastroesophageal reflux disease, unspecified whether esophagitis present Morbid obesity with BMI of 50.0-59.9, adult ([facility]) 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[facility]) Chronic lymphocytic thyroiditis Anxiety and depression ([facility]) Gastroesophageal reflux disease, unspecified whether esophagitis present- Primary 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[facility]/HCC) Chronic lymphocytic thyroiditis Moderate persistent asthma without complication (CMS/HCC) Morbid obesity with BMI of 50.0-59.9, adult ([facility]) Arthritis of knee, right 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 Chronic lymphocytic thyroiditis Morbid obesity with BMI of 50.0-59.9, adult ([facility]) Psoriasis (CMS/[facility]) Other psoriasis Anxiety and depression (CMS/[facility]) Gastroesophageal reflux disease, unspecified whether esophagitis present Moderate persistent asthma without complication (CMS/HCC) Arthritis of knee, right Anxiety and depression ([facility]/HCC)- Primary Mild persistent asthma without complication (CMS/[facility]) Gastroesophageal reflux disease, unspecified whether esophagitis present Morbid obesity with BMI of 50.0-59.9, adult ([facility]/HCC) 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CMS/HCC) Chronic lymphocytic thyroiditis Morbid obesity due to excess calories (CMS/HCC) Moderate persistent asthma without complication ([facility]/HCC) Encounter for screening mammogram for malignant neoplasm of breast Arthritis of knee, right Psoriasis (CMS/HCC)- Primary Other psoriasis Aftercare following right knee joint replacement surgery- Primary documented in this encounter [facility] HealthcareEvaluation note* Diagnosis Anxiety and depression ([facility])- Primary Elevated glucose Other abnormal glucose Hypomagnesemia Disorders of magnesium metabolism Gastroesophageal reflux disease, unspecified whether esophagitis present Morbid obesity with BMI of 50.0-59.9, adult ([facility]) Moderate persistent asthma without complication (CMS/HCC) Chronic pain of right knee Anxiety and depression (CMS/HCC)- Primary Abnormal TSH Chronic pain of right knee Non-recurrent acute suppurative otitis media of left ear without spontaneous rupture of tympanic membrane 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 Chronic lymphocytic thyroiditis Anxiety and depression ([facility]) Morbid obesity with BMI of 50.0-59.9, adult ([facility]) Arthritis of knee, right Cellulitis of lower extremity, unspecified laterality- Primary Moderate persistent asthma without complication ([facility]) Ventral hernia without obstruction or gangrene Unspecified ventral hernia without mention of obstruction or gangrene Gastroesophageal reflux disease, unspecified whether esophagitis present Morbid obesity with BMI of 50.0-59.9, adult ([facility]) 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[facility]) Chronic lymphocytic thyroiditis Anxiety and depression ([facility]) Gastroesophageal reflux disease, unspecified whether esophagitis present- Primary 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CMS/HCC) Chronic lymphocytic thyroiditis Moderate persistent asthma without complication (CMS/HCC) Morbid obesity with BMI of 50.0-59.9, adult ([facility]) Arthritis of knee, right 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[facility]/HCC)- Primary Chronic lymphocytic thyroiditis Morbid obesity with BMI of 50.0-59.9, adult ([facility]) Psoriasis ([facility]) Other psoriasis Anxiety and depression (CMS/[facility]) Gastroesophageal reflux disease, unspecified whether esophagitis present Moderate persistent asthma without complication (CMS/HCC) Arthritis of knee, right Anxiety and depression ([facility]/HCC)- Primary Mild persistent asthma without complication (CMS/HCC) Gastroesophageal reflux disease, unspecified whether esophagitis present Morbid obesity with BMI of 50.0-59.9, adult ([facility]) 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CMS/HCC) Chronic lymphocytic thyroiditis Morbid obesity due to excess calories (CMS/HCC) Moderate persistent asthma without complication ([facility]) Encounter for screening mammogram for malignant neoplasm of breast Arthritis of knee, right Psoriasis (CMS/HCC)- Primary Other psoriasis Arthritis of knee, right- Primary Acute postoperative pain of right knee Status post right knee replacement documented in this encounter [facility] HealthcareEvaluation note* Diagnosis Anxiety and depression (CMS/[facility])- Primary Elevated glucose Other abnormal glucose Hypomagnesemia Disorders of magnesium metabolism Gastroesophageal reflux disease, unspecified whether esophagitis present Morbid obesity with BMI of 50.0-59.9, adult ([facility]) Moderate persistent asthma without complication (CMS/[facility]) Chronic pain of right knee Anxiety and depression (CMS/[facility])- Primary Abnormal TSH Chronic pain of right knee Non-recurrent acute suppurative otitis media of left ear without spontaneous rupture of tympanic membrane 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CMS/HCC)- Primary Chronic lymphocytic thyroiditis Anxiety and depression ([facility]) Morbid obesity with BMI of 50.0-59.9, adult ([facility]) Arthritis of knee, right Cellulitis of lower extremity, unspecified laterality- Primary Moderate persistent asthma without complication (CMS/[facility]) Ventral hernia without obstruction or gangrene Unspecified ventral hernia without mention of obstruction or gangrene Gastroesophageal reflux disease, unspecified whether esophagitis present Morbid obesity with BMI of 50.0-59.9, adult ([facility]) 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[facility]) Chronic lymphocytic thyroiditis Anxiety and depression ([facility]) Gastroesophageal reflux disease, unspecified whether esophagitis present- Primary 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CMS/HCC) Chronic lymphocytic thyroiditis Moderate persistent asthma without complication (CMS/[facility]) Morbid obesity with BMI of 50.0-59.9, adult ([facility]) Arthritis of knee, right 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[facility]/HCC)- Primary Chronic lymphocytic thyroiditis Morbid obesity with BMI of 50.0-59.9, adult ([facility]) Psoriasis (CMS/[facility]) Other psoriasis Anxiety and depression (CMS/[facility]) Gastroesophageal reflux disease, unspecified whether esophagitis present Moderate persistent asthma without complication (CMS/HCC) Arthritis of knee, right Anxiety and depression (CMS/HCC)- Primary Mild persistent asthma without complication (CMS/HCC) Gastroesophageal reflux disease, unspecified whether esophagitis present Morbid obesity with BMI of 50.0-59.9, adult ([facility]/HCC) 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CMS/HCC) Chronic lymphocytic thyroiditis Morbid obesity due to excess calories (CMS/HCC) Moderate persistent asthma without complication (CMS/HCC) Encounter for screening mammogram for malignant neoplasm of breast Arthritis of knee, right Psoriasis (CMS/HCC)- Primary Other psoriasis Arthritis of knee, right- Primary Acute postoperative pain of right knee Status post right knee replacement Difficulty walking Difficulty in walking documented in this encounter [facility] HealthcareEvaluation note* Diagnosis Anxiety and depression (CMS/HCC)- Primary Elevated glucose Other abnormal glucose Hypomagnesemia Disorders of magnesium metabolism Gastroesophageal reflux disease, unspecified whether esophagitis present Morbid obesity with BMI of 50.0-59.9, adult ([facility]) Moderate persistent asthma without complication (CMS/HCC) Chronic pain of right knee Anxiety and depression (CMS/HCC)- Primary Abnormal TSH Chronic pain of right knee Non-recurrent acute suppurative otitis media of left ear without spontaneous rupture of tympanic membrane 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CMS/HCC)- Primary Chronic lymphocytic thyroiditis Anxiety and depression ([facility]/HCC) Morbid obesity with BMI of 50.0-59.9, adult ([facility]) Arthritis of knee, right Cellulitis of lower extremity, unspecified laterality- Primary Moderate persistent asthma without complication (CMS/HCC) Ventral hernia without obstruction or gangrene Unspecified ventral hernia without mention of obstruction or gangrene Gastroesophageal reflux disease, unspecified whether esophagitis present Morbid obesity with BMI of 50.0-59.9, adult ([facility]/HCC) 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CMS/HCC) Chronic lymphocytic thyroiditis Anxiety and depression (CMS/[facility]) Gastroesophageal reflux disease, unspecified whether esophagitis present- Primary 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CMS/HCC) Chronic lymphocytic thyroiditis Moderate persistent asthma without complication (CMS/HCC) Morbid obesity with BMI of 50.0-59.9, adult ([facility]) Arthritis of knee, right 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CMS/HCC)- Primary Chronic lymphocytic thyroiditis Morbid obesity with BMI of 50.0-59.9, adult ([facility]) Psoriasis (CMS/HCC) Other psoriasis Anxiety and depression (CMS/HCC) Gastroesophageal reflux disease, unspecified whether esophagitis present Moderate persistent asthma without complication (CMS/HCC) Arthritis of knee, right Anxiety and depression ([facility]/HCC)- Primary Mild persistent asthma without complication (CMS/HCC) Gastroesophageal reflux disease, unspecified whether esophagitis present Morbid obesity with BMI of 50.0-59.9, adult ([facility]) 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CMS/[facility]) Chronic lymphocytic thyroiditis Morbid obesity due to excess calories (CMS/[facility]) Moderate persistent asthma without complication ([facility]) Encounter for screening mammogram for malignant neoplasm of breast Arthritis of knee, right Psoriasis (CMS/[facility])- Primary Other psoriasis Arthritis of knee, right- Primary Acute postoperative pain of right knee Status post right knee replacement Difficulty walking Difficulty in walking documented in this encounter [facility] HealthcareEvaluation note* Diagnosis Anxiety and depression ([facility])- Primary Elevated glucose Other abnormal glucose Hypomagnesemia Disorders of magnesium metabolism Gastroesophageal reflux disease, unspecified whether esophagitis present Morbid obesity with BMI of 50.0-59.9, adult ([facility]) Moderate persistent asthma without complication ([facility]) Chronic pain of right knee Anxiety and depression (CMS/[facility])- Primary Abnormal TSH Chronic pain of right knee Non-recurrent acute suppurative otitis media of left ear without spontaneous rupture of tympanic membrane 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 Chronic lymphocytic thyroiditis Anxiety and depression ([facility]) Morbid obesity with BMI of 50.0-59.9, adult ([facility]) Arthritis of knee, right Cellulitis of lower extremity, unspecified laterality- Primary Moderate persistent asthma without complication ([facility]) Ventral hernia without obstruction or gangrene Unspecified ventral hernia without mention of obstruction or gangrene Gastroesophageal reflux disease, unspecified whether esophagitis present Morbid obesity with BMI of 50.0-59.9, adult ([facility]) 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[facility]) Chronic lymphocytic thyroiditis Anxiety and depression ([facility]) Gastroesophageal reflux disease, unspecified whether esophagitis present- Primary 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[facility]/HCC) Chronic lymphocytic thyroiditis Moderate persistent asthma without complication ([facility]/HCC) Morbid obesity with BMI of 50.0-59.9, adult ([facility]) Arthritis of knee, right 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 Chronic lymphocytic thyroiditis Morbid obesity with BMI of 50.0-59.9, adult (CMS/HCC) Psoriasis (CMS/HCC) Other psoriasis Anxiety and depression (CMS/HCC) Gastroesophageal reflux disease, unspecified whether esophagitis present Moderate persistent asthma without complication (CMS/HCC) Arthritis of knee, right Anxiety and depression (CMS/HCC)- Primary Mild persistent asthma without complication (CMS/HCC) Gastroesophageal reflux disease, unspecified whether esophagitis present Morbid obesity with BMI of 50.0-59.9, adult ([facility]) 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CMS/HCC) Chronic lymphocytic thyroiditis Morbid obesity due to excess calories (CMS/HCC) Moderate persistent asthma without complication ([facility]) Encounter for screening mammogram for malignant neoplasm of breast Arthritis of knee, right Psoriasis (CMS/HCC)- Primary Other psoriasis Moderate persistent asthma, uncomplicated (CMS/HCC) 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CMS/HCC) Chronic lymphocytic thyroiditis Anxiety and depression ([facility]) documented in this encounter [facility] HealthcareEvaluation note* Diagnosis Anxiety and depression ([facility]/HCC)- Primary Elevated glucose Other abnormal glucose Hypomagnesemia Disorders of magnesium metabolism Gastroesophageal reflux disease, unspecified whether esophagitis present Morbid obesity with BMI of 50.0-59.9, adult ([facility]) Moderate persistent asthma without complication ([facility]/HCC) Chronic pain of right knee Anxiety and depression (CMS/HCC)- Primary Abnormal TSH Chronic pain of right knee Non-recurrent acute suppurative otitis media of left ear without spontaneous rupture of tympanic membrane 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 Chronic lymphocytic thyroiditis Anxiety and depression ([facility]) Morbid obesity with BMI of 50.0-59.9, adult ([facility]) Arthritis of knee, right Cellulitis of lower extremity, unspecified laterality- Primary Moderate persistent asthma without complication (CMS/HCC) Ventral hernia without obstruction or gangrene Unspecified ventral hernia without mention of obstruction or gangrene Gastroesophageal reflux disease, unspecified whether esophagitis present Morbid obesity with BMI of 50.0-59.9, adult ([facility]) 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[facility]) Chronic lymphocytic thyroiditis Anxiety and depression ([facility]) Gastroesophageal reflux disease, unspecified whether esophagitis present- Primary 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CMS/HCC) Chronic lymphocytic thyroiditis Moderate persistent asthma without complication (CMS/HCC) Morbid obesity with BMI of 50.0-59.9, adult ([facility]) Arthritis of knee, right 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CMS/HCC)- Primary Chronic lymphocytic thyroiditis Morbid obesity with BMI of 50.0-59.9, adult ([facility]) Psoriasis (CMS/HCC) Other psoriasis Anxiety and depression (CMS/HCC) Gastroesophageal reflux disease, unspecified whether esophagitis present Moderate persistent asthma without complication (CMS/HCC) Arthritis of knee, right Anxiety and depression (CMS/HCC)- Primary Mild persistent asthma without complication (CMS/HCC) Gastroesophageal reflux disease, unspecified whether esophagitis present Morbid obesity with BMI of 50.0-59.9, adult ([facility]) 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CMS/[facility]) Chronic lymphocytic thyroiditis Morbid obesity due to excess calories (CMS/[facility]) Moderate persistent asthma without complication ([facility]) Encounter for screening mammogram for malignant neoplasm of breast Arthritis of knee, right Psoriasis (CMS/[facility])- Primary Other psoriasis Arthritis of knee, right- Primary Acute postoperative pain of right knee Status post right knee replacement documented in this encounter [facility] HealthcareEvaluation note* Diagnosis Anxiety and depression ([facility]/HCC)- Primary Elevated glucose Other abnormal glucose Hypomagnesemia Disorders of magnesium metabolism Gastroesophageal reflux disease, unspecified whether esophagitis present Morbid obesity with BMI of 50.0-59.9, adult ([facility]) Moderate persistent asthma without complication ([facility]) Chronic pain of right knee Anxiety and depression (CMS/[facility])- Primary Abnormal TSH Chronic pain of right knee Non-recurrent acute suppurative otitis media of left ear without spontaneous rupture of tympanic membrane 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 Chronic lymphocytic thyroiditis Anxiety and depression ([facility]) Morbid obesity with BMI of 50.0-59.9, adult ([facility]) Arthritis of knee, right Cellulitis of lower extremity, unspecified laterality- Primary Moderate persistent asthma without complication ([facility]/HCC) Ventral hernia without obstruction or gangrene Unspecified ventral hernia without mention of obstruction or gangrene Gastroesophageal reflux disease, unspecified whether esophagitis present Morbid obesity with BMI of 50.0-59.9, adult ([facility]) 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CMS/HCC) Chronic lymphocytic thyroiditis Anxiety and depression ([facility]) Gastroesophageal reflux disease, unspecified whether esophagitis present- Primary 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CMS/HCC) Chronic lymphocytic thyroiditis Moderate persistent asthma without complication (CMS/HCC) Morbid obesity with BMI of 50.0-59.9, adult ([facility]/HCC) Arthritis of knee, right 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[facility]/HCC)- Primary Chronic lymphocytic thyroiditis Morbid obesity with BMI of 50.0-59.9, adult ([facility]/HCC) Psoriasis ([facility]/HCC) Other psoriasis Anxiety and depression ([facility]) Gastroesophageal reflux disease, unspecified whether esophagitis present Moderate persistent asthma without complication (CMS/HCC) Arthritis of knee, right Anxiety and depression (CMS/HCC)- Primary Mild persistent asthma without complication (CMS/HCC) Gastroesophageal reflux disease, unspecified whether esophagitis present Morbid obesity with BMI of 50.0-59.9, adult ([facility]/HCC) 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[facility]/HCC) Chronic lymphocytic thyroiditis Morbid obesity due to excess calories (CMS/HCC) Moderate persistent asthma without complication ([facility]) Encounter for screening mammogram for malignant neoplasm of breast Arthritis of knee, right Psoriasis ([facility]/HCC)- Primary Other psoriasis Acute postoperative pain of right knee- Primary Status post right knee replacement Difficulty walking Difficulty in walking Aftercare following right knee joint replacement surgery documented in this encounter [facility] Narrative - Reported* Type Description Date Medical History diabetes Medical History asthma Medical History hx of syncope Medical History Gastro-esophageal reflux disease without esophagitis Surgical History hernia surgery X2 Surgical History gall bladder removed Hospitalization History see above surgical hx Hospitalization History 2 child births [facility] Other Hospital course Narrative No data available for this section [facility] Hospital Discharge instructions No data available for this section [facility] Progress note No data available for this section [facility] Reason for referral (narrative)* Consultation (Routine) - Pending Review Specialty Diagnoses / Procedures Referred By Arnoldo t Referred To Contact Rheumatology Diagnoses Psoriasis ([facility]) Procedures DE OFFICE/OUTPATIENT NEW HIGH MDM 60 MINUTES Elvie Greer NP [address] [place] [address] Ghassan Ramos MD [address] [place] [address] Referral ID Status Reason Start Date Expiration Date Visits Requested Visits Authorized [id number] Pending Review Specialty Services Required 11/09/2023 05/07/2024 1 1 [facility] HealthcareReason for visit Narrative* Consultation (Routine) - Authorized Specialty Diagnoses / Procedures Referred By Contac t Referred To Contact Physical Therapy Diagnoses Primary osteoarthritis of right knee Procedures DE OFFICE/OUTPATIENT NEW HIGH MDM 60 MINUTES Chan Khan, [address] [place] [address] Phone: tel: fax: Kylee Fernandez PT Referral ID Status Reason Start Date Expiration Date Visits Requested Visits Authorized [id number] Authorized Specialty Services Required 4 07/15/2024 26 3 [facility] HealthcareReason for visit Narrative* Rehabilitation - Outpatient (Routine) - Authorized Specialty Diagnoses / Procedures Referred By Arnoldo cazares Referred To Contact Physical Therapy Diagnoses Aftercare following right knee joint replacement surgery Presence of right artificial knee joint Procedures DE THERAPEUTIC PX 1/> AREAS EACH 15 MIN EXERCISES DE MANUAL THERAPY TQS 1/> REGIONS EACH 15 MINUTES DE THER PX 1/> AREAS EACH 15 MIN NEUROMUSC REEDUCA PHYS/OCC THERAPY SS Chan Khan, [address] [place] [address] Phone: tel: fax: Kylee Fernandez, MADHAVI Referral ID Status Reason Start Date Expiration Date V isits Requested Visits Authorized [id number] Authorized 03/15/2024 03/07/2025 1 37 [facility] Healthcare Summary Purpose Family History No Family History Records Found Relationship Condition Age at Onset Recorded Date/T rahel father Unknown mother Diabetes mellitus Unknown Family history of mental disorder Unknown Heart disease Unknown sister Hypertension Unknown Advance Directives No Advanced Directives Records Found Advance Directive Response Recorded Date/ Time Advance Directives No November 10:23am Advance Directive Response Recorded Date/ Time Advance Directives No December 09, 2023 1:58pm Chief Complaint and Reason for Visit Chief Complaint Infected tattoo Chief Complaint Infected tattoo M25.50 Reason for Visit Cellulitis of arm, l eft Additional Source Comments INFORMATION SOURCE (unrecogn ized section and content) DATE CREATED AUTHOR 06/01/2022 [facility] DATE CREATED AUTHOR AUTHOR'S ORGANIZ ATION 07/22/2023 [facility] DATE CREATED AUTHOR AUTHOR'S ORGANIZ ATION 12/20/2023 [facility] DATE CREATED AUTHOR AUTHOR'S ORGANIZ ATION 01/27/2024 [facility] DATE CREATED AUTHOR AUTHOR'S ORGANIZ ATION 01/28/2024 [facility] DATE CREATED AUTHOR AUTHOR'S ORGANIZ ATION 02/22/2024 [facility] DATE CREATED AUTHOR AUTHOR'S ORGANIZ ATION 02/23/2024 [facility] DATE CREATED AUTHOR AUTHOR'S ORGANIZ ATION 02/26/2024 [facility] DATE CREATED AUTHOR AUTHOR'S ORGANIZ ATION 02/29/2024 [facility] DATE CREATED AUTHOR AUTHOR'S ORGANIZ ATION 04/15/2024 [facility] EPIC REASON FOR VISIT (unrecogniz ed section and content) Reason Comments Follow-up Reason Comments Med Refill Reason Comments Aura's Thyroiditis Reason Comments Post-op Care Teams (unrecognized sec tion and content) [employer] Relationship Specialty Start Date End Date Chris Pelaez MD [address] [place] [address] PCP - General Family Medicine 04/01/23 Elvie Greer NP [address] [place] [address] Nurse Practitioner Family Medicine 04/01/23 [employer] Relationship Specialty Start Date End Date Chris Pelaez MD [address] [place] [address] PCP - General Family Medicine 04/01/23 Elvie Greer NP [address] [place] [address] Nurse Practitioner Family Medicine 04/01/23 Team Status: Active Member Role Status Dates Elvie Greer Primary Care Provider Active Team Status: Inactive Member Role Status Dates Elvie Greer Primary Care Provider Active Sta rt: November 26, 2023 End: November 26, 2023 Ruth Otero APRN Attending Provider Active Start: November 26, 2023 End: November 26, 2023 Team Status: Inactive Member Role Status Dates Elvie Greer Primary Care Provider Active Sta rt: December 09, 2023 End: December 09, 2023 Ghassan Ramos MD Attending Provider Active St art: December 09, 2023 End: December 09, 2023 [employer]visor [employer] Relationship Specialty Start Date End Date Chris Pelaez MD [address] [place] [address] PCP - General Family Medicine 04/01/23 Elvie Greer NP [address] [place] [address] Nurse Practitioner Family Medicine 04/01/23 [employer] Relationship Specialty Start Date End Date Chris Pelaez MD [address] [place] [address] PCP - General Family Medicine 04/01/23 Elvie Greer NP [address] [place] [address] Nurse Practitioner Family Medicine 04/01/23 [employer]visor [employer] Relationship Specialty Start Date End Date Chris Pelaez MD [address] [place] [address] PCP - General Family Medicine 04/01/23 Elvie Greer NP [address] [place] [address] Nurse Practitioner Family Medicine 04/01/23 [employer] Relationship Specialty Start Date End Date Chris Pelaez MD [address] [place] [address] PCP - General Family Medicine 04/01/23 Elvie Greer NP [address] [place] [address] Nurse Practitioner Family Medicine 04/01/23 [employer]visor [employer] Relationship Specialty Start Date End Date Chris Pelaez MD [address] [place] [address] PCP - General Family Medicine 04/01/23 Elvie Greer NP [address] [place] [address] Nurse Practitioner Family Medicine 04/01/23 [employer]visor [employer] Relationship Specialty Start Date End Date Chris Pelaez MD [address] [place] [address] PCP - General Family Medicine 04/01/23 Elvie Greer NP [address] [place] [address] Nurse Practitioner Family Medicine 04/01/23 [employer]visor [employer] Relationship Specialty Start Date End Date Chris Pelaez MD [address] [place] [address] PCP - General Family Medicine 04/01/23 Elvie Greer NP [address] [place] [address] Nurse Practitioner Family Medicine 04/01/23 [employer]visor [employer] Relationship Specialty Start Date End Date Chris Pelaez MD [address] [place] [address] PCP - General Family Medicine 04/01/23 Elvie Greer NP [address] [place] [address] Nurse Practitioner Family Medicine 04/01/23 Supervisor [employer] Relationship Specialty Start Date End Date Chris Pelaez MD [address] [place] [address] PCP - General Family Medicine 04/01/23 Elvie Greer NP [address] [place] [address] Nurse Practitioner Family Medicine 04/01/23 Supervisor [employer] Relationship Specialty Start Date End Date Chris Pelaez MD [address] [place] [address] PCP - General Family Medicine 04/01/23 Elvie Greer NP [address] [place] [address] Nurse Practitioner Family Medicine 04/01/23 [employer]visor [employer] Relationship Specialty Start Date End Date Chris Pelaez MD [address] [place] [address] PCP - General Family Medicine 04/01/23 Elvie Greer NP [address] [place] [address] Nurse Practitioner Family Medicine 04/01/23 Supervisor [employer] Relationship Specialty Start Date End Date Chris Pelaez MD [address] [place] [address] PCP - General Family Medicine 04/01/23 Elvie Greer NP [address] [place] [address] Nurse Practitioner Family Medicine 04/01/23 Supervisor [employer] Relationship Specialty Start Date End Date Chris Pelaez MD [address] [place] [address] PCP - General Family Medicine 04/01/23 Elvie Greer NP [address] [place] [address] Nurse Practitioner Family Medicine 04/01/23 Supervisor [employer] Relationship Specialty Start Date End Date Chris Pelaez MD [address] [place] [address] PCP - General Family Medicine 04/01/23 Elvie Greer NP [address] [place] [address] Nurse Practitioner Family Medicine 04/01/23 Supervisor [employer] Relationship Specialty Start Date End Date Chris Pelaez MD [address] [place] [address] PCP - General Family Medicine 04/01/23 Elvie Greer NP [address] [place] [address] Nurse Practitioner Family Medicine 04/01/23 Supervisor [employer] Relationship Specialty Start Date End Date Chris Pelaez MD [address] [place] [address] PCP - General Family Medicine 04/01/23 Elvie Greer NP [address] [place] [address] Nurse Practitioner Family Medicine 04/01/23 Supervisor [employer] Relationship Specialty Start Date End Date Chris Pelaez MD [address] [place] [address] PCP - General Family Medicine 04/01/23 Elvie Greer NP [address] [place] [address] Nurse Practitioner Family Medicine 04/01/23 Supervisor [employer] Relationship Specialty Start Date End Date Chris Pelaez MD [address] [place] [address] PCP - General Family Medicine 04/01/23 Elvie Greer NP [address] [place] [address] Nurse Practitioner Family Medicine 04/01/23 Supervisor [employer] Relationship Specialty Start Date End Date Chris Pelaez MD [address] [place] [address] PCP - General Family Medicine 04/01/23 Elvie Greer NP [address] [place] [address] Nurse Practitioner Family Medicine 04/01/23 Supervisor [employer] Relationship Specialty Start Date End Date Chris Pelaez MD [address] [place] [address] PCP - General Family Medicine 04/01/23 Elvie Greer NP [address] [place] [address] Nurse Practitioner Family Medicine 04/01/23 Supervisor [employer] Relationship Specialty Start Date End Date Chris Pelaez MD [address] [place] [address] PCP - General Family Medicine 04/01/23 Elvie Greer NP [address] [place] [address] Nurse Practitioner Family Medicine 04/01/23 Supervisor [employer] Relationship Specialty Start Date End Date Chris Pelaez MD [address] [place] [address] PCP - General Family Medicine 04/01/23 Elvie Greer NP [address] [place] [address] Nurse Practitioner Family Medicine 04/01/23 Supervisor [employer] Relationship Specialty Start Date End Date Chris Pelaez MD [address] [place] [address] PCP - General Family Medicine 04/01/23 Elvie Greer NP [address] [place] [address] Nurse Practitioner Family Medicine 04/01/23 Supervisor [employer] Relationship Specialty Start Date End Date Chris Pelaez MD [address] [place] [address] PCP - General Family Medicine 04/01/23 Elvie Gerer NP [address] [place] [address] Nurse Practitioner Family Medicine 04/01/23 Supervisor [employer] Relationship Specialty Start Date End Date Chris Pelaez MD [address] [place] [address] PCP - General Family Medicine 04/01/23 Elvie Greer NP [address] [place] [address] Nurse Practitioner Family Medicine 04/01/23 Supervisor [employer] Relationship Specialty Start Date End Date Chris Pelaez MD [address] [place] [address] PCP - General Family Medicine 04/01/23 Elvie Greer NP [address] [place] [address] Nurse Practitioner Family Medicine 04/01/23 Goals (unrecognized section and content) Goals may be documented in a n alternate section FOR RECORDS PERTAINING TO PATIENTS WHO ARE [...] BE BASED ON THE PRIMARY CLINICAL RECORDS. [employer] provides no warranty or guarantee of the accuracy or completeness of information in this document.
== END 2024-04-18 10:03 | disposition home or self-care (01) ==
LOC: MAMMO 10:02
PROVIDERS: PCP Nurse Practitioner; Visit Provider Obstetrics & Gynecology
DX: Z12.31 Encounter for screening mammogram for malignant neoplasm of breast (principal)
CPT/HCPCS: 77063; 77067

== ENCOUNTER 2024-05-10 11:35 | Outpatient (OUT) | payer OTHER, SELFPAY ==
[2024-05-10 11:55] LABS: Basophils Percent Auto 0.4 % (0.2-2.0); Eosinophils Absolute Auto 0.2 10^3/uL (0.0-0.7); Eosinophils Percent Auto 2.8 % (0.9-7.0); Hematocrit 37.5 % (36.0-48.0); Hemoglobin 12.6 g/dL (12.0-16.0); Immature Granulocytes Abs Auto 0.02 10^3/uL (0.00-0.03); Immature Granulocytes Pct Auto 0.2 % (0.0-0.5); Lymphocytes Absolute Auto 1.9 10^3/uL (1.2-3.8); Lymphocytes Percent Auto 22.7 % (20.5-60.0); Mean Corpuscular HGB Conc 33.6 g/dL (29.9-35.2); Mean Corpuscular Hemoglobin 29.9 pg (26.7-34.0); Mean Corpuscular Volume 88.9 fL (81.0-99.0); Mean Platelet Volume 9.5 fL (9.5-13.5); Monocytes Absolute Auto 0.6 10^3/uL (0.3-0.8); Monocytes Percent Auto 6.9 % (1.7-12.0); Neutrophils Absolute Auto 5.7 10^3/uL (1.4-6.5); Platelet Count 358 10^3/uL (150-450); Red Blood Count 4.22 10^6/uL (4.20-5.40); Red Cell Distribution Width 12.8 % (11.0-15.0); White Blood Count 8.5 10^3/uL (4.0-11.0)
--- OUTSIDE RECORDS SUMMARY | 2024-05-10 12:00 | XMS_ITS | CCD ---
Author Organization [facility] ion [facility] Care Team Providers Care Loss Prevention Detective Name Role Phone PERCY, KEYA ELVIE Primary Care Unavailable ABEL, DR KRISTY Yarbrough Admitting Unavailable ABEL, DR KRISTY Yarbrough Consulting Unavailable ABEL, DR KRISTY Yarbrough Attending Unavailable CHAN RICHEY Consulting Unavailable AICHHOLZ, COMMANDER INTERNAL AFFAIRS ELVIE Primary Care Unavailable AICHHOLZ, COMMANDER INTERNAL AFFAIRS ELVIE Consulting Unavailable AICHHOLZ, COMMANDER INTERNAL AFFAIRS ELVIE Attending Unavailable AICHHOLZ, COMMANDER INTERNAL AFFAIRS ELVIE Admitting Unavailable AICHHOLZ, COMMANDER INTERNAL AFFAIRS ELVIE Primary Care Unavailable KARASIK ., DR FOFANA Consulting Unavailabl e BO ., DR FOFANA Attending Unavailabl e BO ., DR FOFANA Admitting Unavailabl e Mary Jo Thibodeaux Unavailable Percy DEPARTURE CLERK, Elvie Unavailable Chris Pelaez MD Primary Care Provider Jamshid Sahu MD Attending Unavailable Elvie Greer Primary Care Provider [phone] MD Ghassan Ramos Attending Provider Ghassan Ramos Admitting Unavailable Ghassan Ramos Attending Unavailable Elvie Greer Primary Care Unavailable Elvie Greer Primary Care Unavailable Rogelio Oviedo Admitting Unavailab Rogelio Tariq Attending Unavailab le Percy DEPARTURE CLERK, Elvie Unavailable ELVIE GREER Primary Care Physician [phone] Chan Khan Admitting Unavailable Khan, Chan T [...] Attending Unavailable KHAN, CHAN T Referring Unavailable BRINK, SUMEET Attending Unavailable KHAN, CHAN T Referring Unavailable FERNANDEZ, KYLEE Attending Unavailable KHAN, CHAN T Referring Unavailable KELBLEY, ELIS Attending Unavailable KHAN, CHAN T Referring Unavailable FERNANDEZ, KYLEE Attending Unavailable KHAN, CHAN T Referring Unavailable BRINK, SUMEET Attending Unavailable KHAN, CHAN T Referring Unavailable FERNANDEZ, KYLEE Attending Unavailable KHAN, CHAN T Referring Unavailable FERNANDEZ, KYLEE Attending Unavailable KHAN, CHAN T Referring Unavailable FERNANDEZ, KYLEE Attending Unavailable KHAN, CHAN T Referring Unavailable AICHHOLZ, ELVIE Attending Unavailable AICHHOLZ, ELVIE Attending Unavailable ANDREW, JAVIER Attending Unavailable AICHHOLZ, ELVIE Attending Unavailable AICHHOLZ, ELVIE Attending Unavailable AICHHOLZ, ELVIE Attending Unavailable HENRY, DEEP Hall Attending Unavailable KHAN, CHAN T Referring Unavailable KHAN, CHAN T Attending Unavailable KHAN, CHAN T Referring Unavailable AICHHOLZ, ELVIE Attending Unavailable KHAN, CHAN T Attending Unavailable KHAN, CHAN T Referring Unavailable AICHHOLZ, ELVIE Attending Unavailable FERNANDEZ, KYLEE Attending Unavailable KHAN, CHAN T Referring Unavailable MCBRIDE, MARIANO M Attending Unavailable KHAN, CHAN T Referring Unavailable MCBRIDE, MARIANO M Attending Unavailable KHAN, CHAN T Referring Unavailable MCBRIDE, MARIANO M Attending Unavailable KHAN, CHAN T Referring Unavailable MCBRIDE, MARIANO M Attending Unavailable KHAN, CHAN T Referring Unavailable MCBRIDE, MARIANO M Attending Unavailable KHAN, CHAN T Referring Unavailable FERNANDEZ, KYLEE Attending Unavailable KHAN, CHAN T Referring Unavailable SACHIN, BALDOMERO Attending Unavailable KHAN, CHAN T Referring Unavailable KHAN, CHAN T Referring Unavailable KHAN, CHAN T Attending Unavailable KHAN, CHAN T Referring Unavailable Allergies Allergy Classification Reported Allergen(s) Allergy Type Date of Onset Reaction(s) Facility (1 source) diphenhydrAMINE Drug Allergy [facility] Repository (8 sources) Latex; Translations: [Latex] Drug allergy (disorder) 11-26-19 Unknown Reaction, Hives [facility] Repository (8 sources) diphenhydrAMINE; Translations: [diphenhydramine] Drug Allergy 11-26-19 Unknown (qualifier value) [facility] (1 source) Latex Propensity to adverse reactions Unknown [employer] Other (20 sources) diphenhydrAMINE Drug Allergy 08-09-19 Hives, Itching, Rash, Unknown [facility] (20 sources) Latex Propensity to adverse reactions 08-09-19 Hives, Itching, Rash, Unknown [facility] (20 sources) Prednisone; Translations: [predniSONE] Propensity to adverse reactions 04-01-19 [facility] (20 sources) Antihistamines, Diphenhydramine-Ty pe Propensity to adverse reactions 04-01-19 [facility] (1 source) diphenhydrAMINE Drug Allergy 11-26-19 [facility] Repository (1 source) Latex Drug allergy (disorder) 11-26-19 [facility] Repository (2 sources) predniSONE; Translations: [prednisone] Drug Allergy Unknown (qualifier value) [facility] Medications Current Medications Medication Drug Class(es) Dates [...] every four hours for pain HYDROcodone-acetamin ophen (Clyo) 5-325 MG tablet Indications: Primary osteoarthritis of [...] for pain. Start Date: 02/16/24 Status: Ordered [id number] 200 actuat albuterol 0.09 mg/actuat metered dose [...] November 26, 2023 12:00am Start: 09-30-2023 End: 08-07-2024 take 2 puff(s) by inhalation in the morning budesonide-formoterol (Symbicort) 160-4.5 MCG/ACT inhaler Indications: Moderate persistent asthma without complication (CMS/HCC) Inhale 2 puffs in the morning and 2 puffs before bedtime. Rinse mouth with water after use to reduce aftertaste and incidence of candidiasis. Do not swallow.. 30.6 g 1 05/09/2024 08/07/2024 Active Start: 04-13-2023 End: 07-12-2023 take 2 [...] November 26, 2023 12:00am Start: 09-28-2023 End: 08-07-2024 take 1 tablet by mouth every twenty-four hours in the morning buPROPion XL (Wellbutrin XL) 300 MG 24 hr tablet Indications: Anxiety and depression (CMS/HCC) Take 1 tablet (300 mg) by mouth in the morning. 90 tablet 1 05/09/2024 08/07/2024 Active Start: 04-13-2023 End: 05-13-2023 take 1 tablet by mouth every twenty-four hours in the morning buPROPion XL (Wellbutrin XL) 150 MG 24 hr tablet Indications: Anxiety and depression (CMS/HCC) Take 1 tablet (150 mg) by mouth in the morning. Do not crush, chew, or split.. 30 tablet 1 04/13/2023 05/13/2023 Active calcitriol 0.50123 mg oral capsule (20 sources) Vitamin D3 Analog Start: 01-21-2024 End: 05-09-2024 calcitriol (Rocaltrol) 0.25 MCG capsule Take 0.25 mcg by mouth 01/21/2024 05/09/2024 Discontinued (Therapy completed) Start: 01-21-2024 [facility] by [facility] daily calcitriol 0.25 mcg Cap 0.25 mcg = 1 cap(s), Oral, Daily, Refills(s) 0, Prophylaxis Start Date: 01/21/24 Status: Ordered take 1 capsule by [facility] in the morning calcitriol (Rocaltrol) 0.25 MCG [...] November 26, 2023 12:00am Start: 09-30-2023 End: 08-07-2024 take 1 tablet by mouth at bedtime famotidine (Pepcid) 20 MG tablet Indications: Gastroesophageal reflux disease, unspecified whether esophagitis present Take 1 tablet (20 mg) by mouth at bedtime 90 tablet 1 05/09/2024 08/07/2024 Active Fish Oils (2 sources) Start: 01-21-2024 [...] itching or anxiety 90 capsule 1 04/05/2024 Active Start: 04-13-2023 End: 05-13-2023 take 1 [...] November 26, 2023 12:00am Start: 09-28-2023 End: 08-07-2024 take 1 tablet by mouth at bedtime montelukast (Singulair) 10 MG tablet Indications: Moderate persistent asthma without complication (CMS/HCC) Take 1 tablet (10 mg) by mouth at bedtime 90 tablet 1 05/09/2024 08/07/2024 Active Start: 04-13-2023 End: 07-12-2023 take 1 [...] Allergy symptoms Start Date: 01/25/24 Status: Ordered Constable-3 Fatty Acids (Fish Oil) 1000 MG capsule delayed-release (3 sources) Constable-3 Fatty Ac ids (Fish Oil) 1000 MG [...] November 26, 2023 12:00am Start: 09-30-2023 End: 08-07-2024 take 1 tablet by mouth before mealtime pantoprazole (ProtoNix) 40 MG EC tablet Indications: Gastroesophageal reflux disease, unspecified whether esophagitis present Take 1 tablet (40 mg) by mouth in the morning. Take before meals. Do not crush, chew, or split.. 90 tablet 1 05/09/2024 08/07/2024 Active polyethylene glycol 3350 27260 mg powder for oral solution (2 sources) Osmotic Laxative Start: 05-09-2024 End: 06-08-2024 take 4 [oz_av] by mouth once daily polyethylene glycol, PEG, 3350 (MiraLax) 17 GM/SCOOP powder Indications: Other constipation Take 17 g by mouth Daily Mix in 4 oz fluid and drink 510 g 2 05/09/2024 06/08/2024 Active Potassium (20 sources) Potassium 99 MG [...] spray (20 sources) Corticosteroid Start: 04-05-2024 End: 08-07-2024 take 2 spray(s) nasal route once daily triamcinolone (Nasacort) 55 MCG/ACT nasal inhaler Indications: Moderate persistent asthma, uncomplicated (CMS/HCC) Administer 2 sprays into each nostril Daily 50.7 mL 1 05/09/2024 08/07/2024 Active Start: 02-08-2024 End: 03-07-2024 triamcinolone (Kenalog) [...] Active Problems Problem Classification Problem Date Documented Da te Episodic/Chronic Anxiety disorders (20 sources) Mixed anxiety and depressive disorder; Translations: [Anxiety disorder, unspecified] Onset: 04-01-2023 04-01-2023 Chronic Asthma (20 sources) Asthma; Translations: [Asthma, unspecified] Onset: 04-01-2023 Resolved: 02-08-2024 04-01-2023 Chronic Diabetes mellitus without complication (1 source) Type 2 diabetes mellitus without complication; Translations: [Diabetes mellitus without mention of complication, type II or unspecified, not stated as uncontrolled] Chronic Diabetes mellitus without complication (20 sources) Increased glucose level; Translations: [Other abnormal glucose] Onset: 04-01-2023 04-01-2023 Episodic Esophageal disorders (20 sources) Gastro-esophageal reflux disease [...] knee] Onset: 04-01-2023 04-01-2023 Chronic Other aftercare (7 sources) Patient encounter status; Translations: [Aftercare following joint replacement surgery] 03-22-2024 Chronic Other connective tissue disease (20 sources) History of total knee arthroplasty; Translations: [Presence of right artificial knee joint] Onset: 02-22-2024 02-22-2024 Chronic Other connective tissue disease (2 sources) Artificial knee joint present; Translations: [Presence of right artificial knee joint] 05-01-2024 Chronic Other connective tissue disease (1 source) Cramp and spasm; Translations: [CRAMP AND SPASM] Onset: 05-31-2022 Episodic Other gastrointestinal disorders (4 sources) Constipation; Translations: [Other constipation] Onset: 05-09-2024 05-09-2024 Episodic Other inflammatory condition of skin (20 sources) Psoriasis; Translations: [Psoriasis, unspecified] Onset: 04-01-2023 04-01-2023 Chronic Other nervous system disorders (20 sources) Difficulty walking; Translations: [Difficulty in walking, not elsewhere classified] Onset: 02-22-2024 02-22-2024 Chronic Other non-traumatic joint disorders (1 source) Pain in unspecified joint; Translations: [Pain in unspecified joint] Onset: 12-09-2023 Episodic Other nutritional; endocrine; and metabolic disorders (20 sources) Hypomagnesemia; Translations: [Hypomagnesemia] Onset: 04-01-2023 04-01-2023 Chronic Other nutritional; endocrine; and metabolic disorders (20 sources) Body mass index 40+ - severely obese; Translations: [Morbid (severe) obesity due to excess calories] Onset: 04-13-2023 Resolved: 02-08-2024 04-13-2023 Chronic Other nutritional; endocrine; and metabolic disorders (20 sources) Morbid obesity; Translations: [Morbid (severe) obesity due to excess calories] Onset: 02-08-2024 02-08-2024 Chronic Other nutritional; endocrine; and metabolic disorders (4 sources) Obesity caused by energy imbalance; Translations: [Morbid (severe) obesity due to excess calories] Onset: 02-08-2024 05-09-2024 Chronic Other screening for suspected conditions (not mental disorders or infectious disease) (20 sources) Abnormal results of liver function studies; Translations: [Encounter for screening for malignant neoplasm of cervix] Onset: 05-06-2022 Resolved: 11-09-2023 Episodic Syncope (2 sources) Syncope 01-21-2024 Episodic Thyroid disorders (20 sources) Aura thyroiditis; Translations: [Autoimmune thyroiditis] Onset: 06-29-2023 Resolved: 05-09-2024 12-26-2023 Chronic Past or Other Problems Problem [...] [BRONCHITIS NOT SPEC ACUTE/CHRON] Onset: 02-25-2022 Episodic Joint disorders and dislocations; trauma-related (20 [...] 04-01-2023 Episodic Other aftercare (1 source) Other group home (current) drug therapy; Translations: [OTH POLYSOMNOGRAPHIC TECHNOLOGIST CURRENT DRUG THERAPY] Onset: 02-25-2022 Episodic Other connective tissue disease (20 sources) H/O: knee problem; Translations: [Personal history of other diseases of the musculoskeletal system and connective tissue] Onset: 03-27-2020 Resolved: 11-09-2023 04-01-2023 Episodic Other connective tissue disease (20 sources) Cramp in lower limb; Translations: [Cramp and spasm] Onset: 04-01-2023 04-01-2023 Episodic Other nervous system disorders (20 sources) Other acute postprocedural pain; Translations: [Pain in joint, lower leg] Onset: 04-01-2023 02-22-2024 Episodic Other non-traumatic joint disorders (20 sources) Pain in right knee; Translations: [Pain in joint, lower leg] Onset: 04-01-2023 Resolved: 09-30-2023 04-14-2023 Episodic Other skin disorders (20 sources) Loss of [...] Test Name Value Interpretation Reference Range Facility MM TOMOSYNTHESIS SCREENING B Ion 04-18-2024 [facility] [place] [id number] Mammography Report Signed Patient: WILMER NAVARRO MR#: [id number] : 1985 Acct:[id number] Age/Sex: 38 / F ADM Date: 04/18/24 Loc: MAMMO Attending Dr: Javier Morales D.O. Ordering Physician: Javier Morales D.O. Results: Date of Service: 04/18/24 Follow Up: Procedure(s): MM tomosynthesis screening BI Accession Number(s): [id number] cc: Elvie Greer NP; Javier Morales D.O. Patient Name: WILMER NAVARRO MR#: [id number] : 1985 Exam Date: 04/18/2024 Ordering Doctor: DR JAVIER MORALES . RADIOLOGY REPORT PROCEDURE: MM TOMOSYNTHESIS SCREENING BI COMPARISON: MG MAMM DIAGNOSTIC 3D ARELY CAD, 06/12/2020. INDICATIONS: Screening Calculator Name NCI Breast Cancer Risk Assessment Tool 5 Year Breast Cancer Risk Not Reported. Lifetime Breast Cancer Risk Not Reported. Personal Breast Cancer No Personal Ovarian Cancer No Treatments None Family Cancers None LOCATION: [facility] BREAST COMPOSITION: The breasts are extremely dense, which lowers the sensitivity of mammography. FINDINGS: DIAGNOSTIC CATEGORY 2--BENIGN FINDING. NO CHANGE FROM COMPARISON. Scattered benign-appearing calcifications are present. Scattered benign-appearing lymph nodes are present. RIGHT BREAST: No significant suspicious finding. LEFT BREAST: No significant suspicious finding. RECOMMENDATIONS: ROUTINE MAMMOGRAM AND CLINICAL EVALUATION IN 12 MONTHS. PLEASE NOTE: A NORMAL MAMMOGRAM DOES NOT EXCLUDE THE POSSIBILITY OF BREAST CANCER. A CLINICALLY SUSPICIOUS PALPABLE LUMP SHOULD BE BIOPSIED. Dictated by: Donnie Addison MD on 04/18/2024 at 11:32 Approved by: Donnie Addison MD on 04/18/2024 at 11:34 Dictated By: Donnie Addison M.D. Signed By: 04/18/24 1135 DD/ 1134 TD/TT: Dynamicist: [facility] Radiology, Radiologist, - 04/18/2024 [place] [address] Mammography Report Signed Patient: WILMER NAVARRO MR#: [id number] : 1985 Acct:[id number] Age/Sex: 38 / F ADM Date: 04/18/24 Loc: MAMMO Attending Dr: Javier Morales D.O. Ordering Physician: Javier Morales D.O. Results: Date of Service: 04/18/24 Follow Up: Procedure(s): MM tomosynthesis screening BI Accession Number(s): [id number] cc: Elvie Greer DEPARTURE CLERK; Javier Morales D.O. Patient Name: WILMER NAVARRO MR#: [id number] : 1985 Exam Date: 04/18/2024 Ordering Doctor: DR JAVIER MORALES . RADIOLOGY REPORT PROCEDURE: MM TOMOSYNTHESIS SCREENING BI COMPARISON: MG MAMM DIAGNOSTIC 3D ARELY CAD, 06/12/2020. INDICATIONS: Screening Calculator Name NCI Breast Cancer Risk Assessment Tool 5 Year Breast Cancer Risk Not Reported. Lifetime Breast Cancer Risk Not Reported. Personal Breast Cancer No Personal Ovarian Cancer No Treatments None Family Cancers None LOCATION: [facility] BREAST COMPOSITION: The breasts are extremely dense, which lowers the sensitivity of mammography. FINDINGS: DIAGNOSTIC CATEGORY 2--BENIGN FINDING. NO CHANGE FROM COMPARISON. Scattered benign-appearing calcifications are present. Scattered benign-appearing lymph nodes are present. RIGHT BREAST: No significant suspicious finding. LEFT BREAST: No significant suspicious finding. RECOMMENDATIONS: ROUTINE MAMMOGRAM AND CLINICAL EVALUATION IN 12 MONTHS. PLEASE NOTE: A NORMAL MAMMOGRAM DOES NOT EXCLUDE THE POSSIBILITY OF BREAST CANCER. A CLINICALLY SUSPICIOUS PALPABLE LUMP SHOULD BE BIOPSIED. Dictated by: Donnie Addison MD on 04/18/2024 at 11:32 Approved by: Donnie Addison MD on 04/18/2024 at 11:34 Dictated By: Donnie Addison M.D. Signed By: 04/18/24 1135 DD/ 1134 TD/TT: Dynamicist: [facility] Radiology Study observation (narrative) [facility] MM TOMOSYNTHESIS SCREENING B IOrdered By: Radiologist Radiology on 04-18-2024 [facility] Work Phone: XR Knee - right 3 [facility] Result: Xrays taken in the office today saved to the permanent record, Ap, lateral and sunrise weight bearing films, show stable position and alignment of the right knee prosthesis. No sign of loosening or infection. [facility] Radiology Study observation (narrative) [facility] Surgical Pathology Reporton 02-25-2024 Surgical Pathology Report [address] [place] [address]- Surgical Pathology Report Collected Date/Time: 02/21/2024 11:30 EST Pathologist: Darius SAGASTUME PhD, Tracey Sandoval Received Date/Time: 02/21/2024 14:10 EST Loren ARELLANO, Chan [...] tissue 2 - Bone after decalcification (DC) DC:MCA Microscopic Description Microscopic examination performed unless gross only specified. Normal [facility] Comment on above: Performed By: #### [id number] #### [facility] Laboratory [address] [place] [address] Main OR Intraoperative Recor don 02-22-2024 Main OR Intraoperative Record Main OR Intraoperative Record IntraOp Document Type FT Summary Primary Physician: Chan Khan DO Finalized Date/Time: 02/22/24 12:52:18 Pt. Name: WILMER NAVARRO D.O.B./Sex: 1985 Female Med Rec #: [id number] Physician: Chan Khan DO Financial #: [id number] Pt. Type: A Room/Bed: [facility] Admit/Disch: 02/21/24 08:02:21 - 02/21/24 17:00:00 Institution: Case Times FT Entry 1 Patient Times In Room 02/21/24 10:53:00 Out Room 02/21/24 12:25:00 Procedure Times Start 02/21/24 11:20:00 Stop 02/21/24 12:16:00 Anesthesia Times Start 02/21/24 10:53:00 Stop 02/21/24 12:25:00 Block Timeout w02/21/24 10:05:00 Anesthesia Last Modified By: Suki RN, CNOR, Brynn Akhtar 02/21/24 12:25:34 General Comments: [id number] taylor and hermelinda for block. HR 101, SPO2 100%, Nervous. Tolerated procedure well./ T koki RN/ Jaime Cohn Rn 02/22/24 Chart opened to review and send charges [facility]oth CSFA Case Attendance FT Entry 1 Entry 2 Entry 3 Case Attendee Taylor LARSON, WOOD GRINDER OPERATOR, [place] Chan Khan DO RN, CNOR, Brynn NGabriel Akhtar Role Performed WOOD GRINDER OPERATOR Surgeon - Primary Rural Electrification Engineer - Primary Time In 02/21/24 10:53:00 02/21/24 10:47:00 02/21/24 10:53:00 Time Out 02/21/24 12:25:00 02/21/24 12:05:00 02/21/24 12:25:00 Procedure KNEE TOTAL KNEE TOTAL KNEE TOTAL ARTHROPLASTY(Right) ARTHROPLASTY(Right) ARTHROPLASTY(Right) Comments R Myriam Resident, Lucille dorsey in to hold Marily in room leg for prep [id number] Last Modified By: Antoinette Cheung CST RN, CNOR, Brynn Cohn RN, CNOR, Brynn 02/22/24 12:49:03 Giovana 02/21/24 12:25:07 Giovana 02/21/24 12:25:55 Entry 4 Entry 5 Entry 6 Case Attendee Presley GALLAGHER, Shayna Dorsey CST, Tesha Loaiza Role Performed Scrub - Primary CADD MANAGER/SA Staff - Other Time In 02/21/24 10:53:00 02/21/24 10:53:00 02/21/24 10:53:00 Time Out 02/21/24 12:09:00 02/21/24 12:25:00 02/21/24 12:20:00 Procedure KNEE TOTAL KNEE TOTAL KNEE TOTAL ARTHROPLASTY(Right) ARTHROPLASTY(Right) ARTHROPLASTY(Right) Comments 2nd scrub Last Modified By: Suki RN, NUNOOR, Brynn Cohn RN, CNOR, Brynn Cohn RN, NUNOOR, Brynn Akhtar 02/21/24 12:25:07 Giovana 02/21/24 12:25:55 Giovana 02/21/24 [...] Medication Applicable) PreOp Antibiotic Yes Time Out Taylor DNP, WOOD GRINDER OPERATOR, Miller Given Participants N., Loren ARELLANO, Suki Bone RN, CNOR, Brynn Akhtar, Presley GALLAGHER, Alvaro Yousif CST, Dee Adkins Time Out Complete 02/21/24 11:17:00 Outcomes Met? Yes Last Modified By: Suki RN, NUNOOR, Brynn Akhtra 02/21/24 11:20:17 Post-Care Text: The patient is free from signs and symptoms of injury caused by extraneous objects Allergy Information FT Pre-Care Text: Verifies allergies Entry 1 Allergies Reviewed? Yes Allergies Reviewed Self/Patient With Outcomes Met? Yes Last Modified By: Suki TORRE, NUNOOR, Brynn Akhtar 02/21/24 10:38:17 Post-Care Text: The patient received [...] Class 1 - Clean Last Modified By: Suki TORRE, NUNOOR, Brynn Akhtar 02/21/24 12:25:09 General Case Data FT Pre-Care Text: Classifies surgical wound, implements aseptic technique, initiates traffic control Entry 1 Case Information OR OR 5 FT Case Level Level 6 Wound Class 1 - Clean Specialty Orthopedics ASA Class 4 Preop Diagnosis RIGHT KNEE OA Postop Same As Preop Yes Postop Diagnosis RIGHT KNEE OA Outcomes Met? Yes Last Modified By: Suki TORRE, MAICOL, Brynn Akhtar 02/21/24 12:25:21 Post-Care Text: The patient is [...] Last Modified (more content not included)... Normal [facility] Main OR Preoperative Recordo n 02-22-2024 Main OR Preoperative Record Main OR Preoperative Record PreOp Document Type FT Summary Primary Physician: Chan Khan DO Finalized Date/Time: 02/22/24 08:37:35 Pt. Name: WILMER NAVARRO/Sex: 1985 Female Med Rec #: [id number] Physician: Chan Khan DO Financial #: [id number] Pt. Type: A Room/Bed: AS Admit/Disch: 02/21/24 08:02:21 - 02/21/24 17:00:00 Institution: [...] Cohn RN, Lou Ann 02/22/24 08:37 Normal [facility] Operative Reporton Operative Report Operative Report SURGERY [...] female with progressive right knee pain with [id number]-kc-[id number] disease. She has a strong family history as well as treatment for several decades. She has tried ice, Tylenol, analgesics, corticosteroid injections. She has [id number]. She initially presented with an elevated body [...] to soak followed by copious irrigation. The [place] [employer] cement was mixed and all components [...] PATIENT CONDITION: Satisfactory Aquiles Villarreal Dictated: 02/21/2024 [id number] Transcribed: 02/21/2024 cc:Elvie Greer CNP [facility] Comment on above: Result Comment: Elec tronically Signed By: Chan Khan DO\.br\Date and Time Signed: 02/22/24 17:18 EST ABO/Rhon 02-21-2024 ABO/Rh Positive Invalid Interpretation Code [facility] Comment on above: Performed By: #### [id number] #### [facility] Laboratory [address] [place] [address] ABO/Rh History Checkon 02-20 ABO/Rh History Check Verified Hx Blood Type Normal [facility] Comment on above: Performed By: #### 1 [id number] #### [facility] Laboratory [address] [place] [address] ABSCon 02-21-2024 ABSC Gel Interp Negative Normal [facility] Comment on above: Performed By: #### 1 [id number] #### [facility] Laboratory [address] [place] [address] BLOOD BANKOrdered By: Donnie French on 02-21-2024 ABO/Rh Interp Positive Invalid Interpretation Code [facility] BB Subsection ABSC Gel Interp Negative (02/21/24 8:56 AM) Normal [facility] BB Subsection Blood Bank ID#on 02-21-2024 BBID# [id number] Invalid Interpretation Code [facility] Comment on above: Performed By: #### 1 [id number] #### [facility] Laboratory [address] [place] [address] Discharge Instructionson Discharge Instructions Discharge Instructions WILMER NAVARRO :1985 Visit Date:02/21/2024 Inpatient Discharge Instructions Your Care Team Admitting Physician - Chan Khan DO Referring Physician - Chan Khan DO Reason for Your Visit RIGHT KNEE OA [...] PM EST Comments: Keep scheduled appointment Where: [address] [place] [id number]- [employer] (1) Medications What How Much When Why [...] Incentive S (more content not included)... Normal [facility] Comment on above: Result Comment: Elec tronically Signed By: Ricki TORRE, Marium D\.br\Date and Time Signed: 02/21/24 12:54 EST Interdisciplinary Note - Mary singon 02-21-2024 Interdisciplinary Note - Nursing Interdisciplinary Note - Nursing at 1245, pt heart rate down to 30's, sinus pt feeling lightheaded and dizzy. pt placed in Trendelenberg- called and atropine 0.4mg given. heart rate increased to 50's. fluids wide open. Normal [facility] Main OR PACU I Recordon 02-05 Main OR PACU I Record Main OR PACU I Record PACU Phase I Document Type FT Summary Primary Physician: Chan Khan DO Finalized Date/Time: 02/21/24 14:56:12 Pt. Name: WILMER NAVARRO/Sex: 1985 Female Med Rec #: [id number] Physician: Chan Khan DO Financial #: [id number] Pt. Type: A Room/Bed: [place] [address] Admit/Disch: 02/21/24 08:02:21 - Institution: Case Times [...] By: Shanti Bender RN 02/21/24 14:56 Normal [facility] Main OR PACU II Recordon Main OR PACU II Record Main OR PACU II Record PACU Phase II Document Type FT Summary Primary Physician: Chan Khan DO Finalized Date/Time: 02/21/24 18:04:41 Pt. Name: GINETTE WILMERHUSEYIN Akins/Sex: 1985 Female Med Rec #: [id number] Physician: Chan Khan DO Financial #: [id number] Pt. Type: A Room/Bed: [facility] Admit/Disch: 02/21/24 08:02:21 - Institution: Case [...] Landaverde 02/21/24 18:04 Naila Landaverde 02/21/24 18:04 [facility] Proceduralon 02-21-2024 Procedural Procedural Patient: WILMER NAVARRO Age: 38 years Sex: Female : 1985 Associated Diagnoses: None Author: Taylor LARSON CRNA, Queen N. Procedure Nerve Block [...] Using maximal sterile barrier technique per current [facility] guidelines including hand hygeine, Guidance (Ultrasound used [...] procedure as expected, Procedure completed by Queen Taylor CRNA under Dr Gupta's supervision. Normal [facility] SEROLOGYOrdered By: Brook French on 02-21-2024 HCG.beta subunit (U) [Moles/Vol] Negative Normal [facility] Man Sero U BetaHcg Qualon 02-21-2024 HCG.beta subunit (U) [Moles/Vol] Negative Normal [facility] Comment on above: Performed By: #### 2 [id number] #### [facility] Laboratory [address] [place] [address] XR Knee 1 or 2 Views Righton [...] mGy = na DAP = na Normal [facility] Inpatient Patient Summaryon 02-16-2024 Inpatient Patient Summary Inpatient Patient Summary [facility] [address] [place], [place] [address] [facility] Clinical Discharge Instructions PERSON INFORMATION Name: WILMER NAVARRO PHYSICIANS Admitting Physician: Chan Khan DO Attending Physician: Chan Khan DO PCP: ELVIE GREER CNP Discharge Diagnosis: Localized osteoarthritis of right knee Comment: PATIENT EDUCATION INFORMATION Instructions: Loren - Total Knee Arthroplasty (CUSTOM) Medication Leaflets: Follow up: With: Address: When: Chan Loren [address] [place] [address] [facility] () Comments: Keep scheduled appointment Type Location Start [facility] Surgical Services 02/21/2024 11:15 AM 02/21/2024 12:30 [...] Sprays Nasal Inhalation every day. Comment: Normal [facility] Outpatient Surgery Discharge Instructionon 02-16-2024 Outpatient Surgery Discharge Instruction Outpatient Surgery Discharge Instruction [place] [id number] Patient Discharge Instructions PERSON INFORMATION Name: WILMER [...] THE NEAREST EMERGENCY ROOM OR CALL 911 I, WILMER NAVARRO, have received the attached patient education materials/instructio ns and have verbalized understanding: May we do a follow up call? Yes No I was present when discharge instructions were given Patient Signature Date Clinican/Nurse Signature Date Follow up: With: Address: When: Chan Khan [address] [place], [place] [id number] [employer] (1) Comments: Keep scheduled appointment Type Location Start [facility] Surgical Services 02/21/2024 11:15 AM 02/21/2024 12:30 [...] to serve you. Thank you for choosing [facility] HERE ARE THE MEDICATION CHANGES THAT OCCURRED [...] Inhalation every day. PATIENT EDUCATION INFORMATION Instructions: [place], [place] [facility] DISCHARGE INSTRUCTIONS TOTAL KNEE [...] or light-headedness. (more content not included)... Normal [facility] ABO/Rh Retypeon 01-25-2024 ABO/Rh Retype Interp Positive Invalid Interpretation Code [facility] Comment on above: Performed By: #### 1 [id number] #### [facility] Laboratory [address] [place] [address] BLOOD BANKOrdered By: Donnie French on 01-25-2024 ABO/Rh Retype Interp Positive Invalid Interpretation Code [facility] BB Subsection BMPon 01-25-2024 Anion gap [Moles/Vol] 13 mmol/L Normal 6-16 [facility] Comment on above: Performed By: #### 2 [id number] #### [facility] Laboratory [address] [place] [address] Calcium [Mass/Vol] 9.5 mg/dL Normal 8.9-11.1 [facility] Comment on above: Performed By: #### 2 [id number] #### [facility] Laboratory [address] [place] [address] Chloride [Moles/Vol] 103 mmol/L Normal 101-111 [facility] Comment on above: Performed By: #### 2 [id number] #### [facility] [address] [place] [address] CO2 [Moles/Vol] 27 mmol/L Normal 21-31 [facility] Comment on above: Performed By: #### 2 [id number] #### [facility] [address] [place] [address] Creatinine [Mass/Vol] 0.6 mg/dL Normal 0.5-1.3 [facility] Comment on above: Performed By: #### 2 [id number] #### [facility] [address] [place] [address] Glucose [Mass/Vol] 84 mg/dL Normal 55-199 [facility] Comment on above: Performed By: #### 2 [id number] #### [facility] [address] [place] [address] Potassium [Moles/Vol] 4.0 mmol/L Normal 3.5-5.3 [facility] Comment on above: Performed By: #### 2 [id number] #### [facility] [address] [place] [address] Sodium [Moles/Vol] 139 mmol/L Normal 135-145 [facility] Comment on above: Performed By: #### 2 [id number] #### [facility] Laboratory [address] [place] [address] Urea nitrogen [Mass/Vol] 12 mg/dL Normal 5-21 [facility] Comment on above: Performed By: #### 2 [id number] #### [facility] [address] [place] [address] Urea nitrogen/Creatinine [Mass ratio] 20 No Units Normal 10-20 [facility] Comment on above: Performed By: #### 2 [id number] #### [facility] [address] [place] [address] CBC w/ Auto Diffon 4 Basophils/100 WBC (Bld) 0.8 % Normal 0.0-2.0 [facility] Comment on above: Performed By: #### 2 [id number] #### [facility] Laboratory [address] [place] [address] Basophils/Leukocytes Auto (Bld) [Pure # fraction] 0.1 E9/L Normal 0.0-0.2 [facility] Comment on above: Performed By: #### 2 [id number] #### [facility] [address] [place] [address] Eosinophils (Bld) [#/Vol] 0.3 E9/L Normal 0.0-0.5 [facility] Comment on above: Performed By: #### 2 [id number] #### [facility] [address] [place] [address] Eosinophils/100 WBC (Bld) 4.2 % Normal 0.0-8.0 [facility] Comment on above: Performed By: #### 2 [id number] #### [facility] [address] [place] [address] Erythrocyte distribution width (RBC) [Ratio] 13.2 % Normal 10.9-14.2 [facility] Comment on above: Performed By: #### 2 [id number] #### [facility] [address] [place] [address] Hematocrit (Bld) [Volume fraction] 39.2 % Normal 34.0-46.0 [facility] Comment on above: Performed By: #### 2 [id number] #### [facility] [address] [place] [address] Hemoglobin (Bld) [Mass/Vol] 13.6 g/dL Normal 12.0-16.0 [facility] Comment on above: Performed By: #### 2 [id number] #### [facility] [address] [place] [address] Lymphocytes (Bld) [#/Vol] 2.3 E9/L Normal 1.0-4.0 [facility] Comment on above: Performed By: #### 2 [id number] #### [facility] [address] [place] [address] Lymphocytes/100 WBC (Bld) 29.5 % Normal 14.0-50.0 [facility] Comment on above: Performed By: #### 2 [id number] #### [facility] [address] [place] [address] MCH (RBC) [Entitic mass] 30.4 pg Normal 27.0-34.0 [facility] Comment on above: Performed By: #### 2 [id number] #### [facility] [address] [place] [address] MCHC (RBC) [Mass/Vol] 34.7 g/dL Normal 31.4-36.0 [facility] Comment on above: Performed By: #### 2 [id number] #### [facility] [address] [place] [address] MCV (RBC) [Entitic vol] 87.5 fL Normal 80.0-100.0 [facility] Comment on above: Performed By: #### 2 [id number] #### [facility] [address] [place] [address] Monocytes (Bld) [#/Vol] 0.7 E9/L Normal 0.2-1.0 [facility] Comment on above: Performed By: #### 2 [id number] #### [facility] [address] [place] [address] Neutrophils (Bld) [#/Vol] 4.3 E9/L Normal 2.0-7.5 [facility] Comment on above: Performed By: #### 2 [id number] #### [facility] [address] [place] [address] Neutrophils/100 WBC (Bld) 56.6 % Normal 36.0-75.0 [facility] Comment on above: Performed By: #### 2 [id number] #### [facility] [address] [place] [address] Platelet 377.0 E9/L Normal 150.0-500.0 [facility] Comment on above: Performed By: #### 2 [id number] #### [facility] [address] [place] [address] Platelet mean volume (Bld) [Entitic vol] 7.9 fL Normal 6.4-10.8 [facility] Comment on above: Performed By: #### 2 [id number] #### [facility] [address] [place] [address] RBC (Bld) [#/Vol] 4.5 E12/L Normal 4.3-5.9 [facility] Comment on above: Performed By: #### 2 [id number] #### [facility] [address] [place] [address] WBC corrected for nucl RBC Auto (Bld) [#/Vol] 7.7 E9/L Normal 4.0-11.0 [facility] Comment on above: Performed By: #### 2 [id number] #### [facility] [address] [place] [address] CHEMISTRYOrdered By: SYSTEM SYSTEM on 01-25-2024 Anion [...] Remisol Heme UA WITH CULT RFLXon 01-25-20 24 BILIRUBIN:PRTHR:PT:URIN E:ORD:TEST STRIP.AUTOMATED Negative Negative mg/dL [facility] CLARITY:TYPE:PT:URINE:N OM: Clear Clear [facility] CLASS:TYPE:PT:URINE COLLECTION METHOD:NOM:* Clean Catch [facility] COLOR:TYPE:PT:URINE:NOM :AUTO Light-Yellow Yellow [facility] Comment on above: Microscopic readings are only performed on those samples that meet specific criteria set forth by [facility] Laboratory. [facility] PH:LSCNC:PT:URINE:QN:TE ST STRIP 5.5 5.0 - 9.0 [facility] SPECIFIC GRAVITY:RDEN:PT:URINE:Q N:TEST STRIP 1.013 1.005 - 1.030 [facility] GLUCOSE:PRTHR:PT:URINE: ORD:TEST STRIP Negative Negative mg/dL [facility] HEMOGLOBIN:MCNC:PT:URIN E:SEMIQN:TEST STRIP.AUTOMATED Negative Negative mg/dL [facility] KETONES:PRTHR:PT:URINE: ORD:TEST STRIP.AUTOMATED Negative Negative mg/dL [facility] LEUKOCYTE ESTERASE:PRTHR:PT:URINE :ORD:TEST STRIP.AUTOMATED Negative Negative CD:[id number] [facility] NITRITE:PRTHR:PT:URINE: ORD:TEST STRIP.AUTOMATED Negative Negative mg/dL [facility] PROTEIN:PRTHR:PT:URINE: ORD:TEST STRIP Negative Negative mg/dL [facility] UROBILINOGEN:MCNC:PT:UR INE:SEMIQN:TEST STRIP Negative Negative mg/dL [facility] Original Ordering Provider: [facility] Rflxon 01-25-20 Bilirubin Ql (U) Negative Normal Negative [facility] Comment on above: Performed By: #### 4 [id number] #### [facility] [address] [place] [address] Clarity (U) Clear Normal Clear [facility] Comment on above: Performed By: #### 4 [id number] #### [facility] [address] [place] [address] Color (U) Light-Yellow Normal Yellow [facility] Comment on above: Result Comment: Micr oscopic readings are only performed on those samples that meet specific criteria set forth by [facility] Laboratory. Performed By: #### 4 [id number] #### [facility] [address] [place] [address] Glucose Ql (U) Negative Normal Negative [facility] Comment on above: Performed By: #### 4 [id number] #### [facility] [address] [place] [address] Hemoglobin Auto test strip (U) [Mass/Vol] Negative Normal Negative [facility] Comment on above: Performed By: #### 4 [id number] #### [facility] [address] [place] [address] Ketones Auto test strip Ql (U) Negative Normal Negative [facility] Comment on above: Performed By: #### 4 [id number] #### [facility] [address] [place] [address] Leukocyte esterase Auto test strip Ql (U) Negative Normal Negative [facility] Comment on above: Performed By: #### 4 [id number] #### [facility] [address] [place] [address] Nitrite Auto test strip Ql (U) Negative Normal Negative [facility] Comment on above: Performed By: #### 4 [id number] #### [facility] [address] [place] [address] pH (U) 5.5 [pH] Invalid Interpretation Code 5.0-9.0 [facility] Comment on above: Performed By: #### 4 [id number] #### [facility] [address] [place] [address] Protein Ql (U) Negative Normal Negative [facility] Comment on above: Performed By: #### 4 [id number] #### [facility] [address] [place] [address] Specific gravity (U) [Rel density] 1.013 Invalid Interpretation Code 1.005-1.030 [facility] Comment on above: Performed By: #### 4 [id number] #### [facility] [address] [place] [address] Urobilinogen (U) [Mass/Vol] Negative Normal Negative [facility] Comment on above: Performed By: #### 4 [id number] #### [facility] [address] [place] [address] Type of Urine collection method Clean Catch Normal [facility] Comment on above: Performed By: #### 4 [id number] #### [facility] [address] [place] [address] URINALYSISOrdered By: SYSTEM SYSTEM on 01-25-2024 Bilirubin Ql (U) Negative Normal Negativemg/ dL [facility] UA Auto SS Clarity (U) Clear (01/25/24 8:54 AM) Normal Clear [facility] UA Auto SS Color (U) Light-Yellow 1 (01/25/24 8:54 AM) Normal Yellow [facility] UA Auto SS Comment on above: Interpretive Data: M icroscopic readings are only performed on those samples that meet specific criteria set forth by [facility]. Glucose Ql (U) Negative Normal Negativemg/ dL [facility] UA Auto SS Hemoglobin Auto test strip (U) [Mass/Vol] Negative Normal Negativemg/ dL [facility] UA Auto SS Ketones Auto test strip Ql (U) Negative Normal Negativemg/ dL [facility] UA Auto SS Leukocyte esterase Auto test strip Ql (U) Negative Normal NegativeLeu /uL [facility] UA Auto SS Nitrite Auto test strip Ql (U) Negative Normal Negativemg/ dL [facility] UA Auto SS pH (U) 5.5 *NA* (01/25/24 8:54 AM) Invalid Interpretation Code 5.0 - 9.0 [facility] UA Auto SS Protein Ql (U) Negative Normal Negativemg/ dL [facility] UA Auto SS Specific gravity (U) [Rel density] 1.013 *NA* (01/25/24 8:54 AM) Invalid Interpretation Code 1.005 - 1.030 [facility] UA Auto SS Urobilinogen (U) [Mass/Vol] Negative Normal Negativemg/ dL [facility] UA Auto SS URINALYSISOrdered By: Juma Bonds on 01-25-2024 UA Spec Desc Clean Catch (01/25/24 8:54 AM) Normal [facility] Auto SS XR Chest 2 Viewson [...] mGy = n/a DAP = n/a Normal [facility] eGFRon 01-25-2024 eGFR 116 mL/min/1.73 m2 Normal >=59 [facility] Comment on above: Performed By: #### 1 [id number] #### [facility] [address] [place] [address] ALL THYROID STIM HORMONEon 1 1-14-2024 TSH Qn 3.486 m[IU]/L [facility] ALL THYROXINE (T4) FREEon Free T4 [Mass/Vol] 0.81 ng/dL 0.76 - 1. 46 ng/dL [facility] No Panel Informationon 01-19 CLINISYNC [facility] Alanine aminotransferase [En zymatic activity/volume] in Serum or PlasmaOrdered By: Ghassan Ramos on 12-09-2023 ALT [Catalytic activity/Vol] 11 U/L Normal 7-52 [facility] Comment on above: Performed By: #### C RP, ESR, CBC, CMP #### [facility] [address] [place] [address] [place] Albumin [Mass/volume] in Ser um or Plasma by Bromocresol green (BCG) dye binding methoOrdered By: Ghassan Ramos on 12-09-2023 Albumin BCG dye [Mass/Vol] 4.3 g/dL 3.5-5.7 [facility] Alkaline phosphatase [Enzyma tic activity/volume] in Serum or PlasmaOrdered By: Ghassan Ramos on 12-09-2023 ALP [Catalytic activity/Vol] 69 U/L Normal 34-104 [facility] Comment on above: Performed By: #### C RP, ESR, CBC, CMP #### [facility] [address] [place] [address] [place] Aspartate aminotransferase [ Enzymatic activity/volume] in Serum or PlasmaOrdered By: Ghassan Ramos on 12-09-2023 AST [Catalytic activity/Vol] 13 U/L Normal 13-39 [facility] Comment on above: Performed By: #### C RP, ESR, CBC, CMP #### [facility] [address] [place] [address] [place] Automated basophil %Ordered By: Ghassan Ramos on 12-09-2023 Basophils/100 WBC (Bld) 0.4 % Normal . [facility] [place] Comment on above: Performed By: #### C RP, ESR, CBC, CMP #### [facility] [address] [place] [address] [place] Automated basophil countOrde red By: Ghassan Ramos on 12-09-2023 Basophils (Bld) [#/Vol] 0.0 10*3/uL Normal 0.0-0.2 [facility] Comment on above: Performed By: #### C RP, ESR, CBC, CMP #### [address] Automated blood monocyte cou ntOrdered By: Ghassan Ramos on 12-09-2023 Monocytes (Bld) [#/Vol] 0.6 10*3/uL Normal 0.0-0.8 [facility] Comment on above: Performed By: #### C RP, ESR, CBC, CMP #### [address] Automated eosinophil %Ordere d By: Ghassan Ramos on 12-09-2023 Eosinophils/100 WBC (Bld) 2.1 % Normal . [facility] Comment on above: Performed By: #### C RP, ESR, CBC, CMP #### [address] Automated eosinophil countOr dered By: Ghassan Ramos on 12-09-2023 Eosinophils (Bld) [#/Vol] 0.1 10*3/uL Normal 0.0-0.45 [facility] Comment on above: Performed By: #### C RP, ESR, CBC, CMP #### [address] Automated monocyte %Ordered By: Ghassan Ramos on 12-09-2023 Monocytes/100 WBC (Bld) 8.7 % Normal . [facility] Comment on above: Performed By: #### C RP, ESR, CBC, CMP #### [address] Automated neutrophil %Ordere d By: Ghassan Ramos on 12-09-2023 Neutrophils/100 WBC (Bld) 62.7 % Normal . [facility] Comment on above: Performed By: #### C RP, ESR, CBC, CMP #### [address] Bilirubin.total [Mass/volume ] in Serum or PlasmaOrdered By: Ghassan Ramos on 12-09-2023 Bilirubin [Mass/Vol] 0.8 mg/dL Normal 0.3-1.0 [facility] Comment on above: Performed By: #### C RP, ESR, CBC, CMP #### [facility] [address] [place] [address] [place] C reactive protein [Mass/vol ume] in Serum or PlasmaOrdered By: Ghassan Ramos on 12-09-2023 CRP [Mass/Vol] 1.5 mg/dL High 0.0-0.5 [facility] C-Reactive Proteinon 024 C-Reactive Protein 1.5 mg/dL High 0.0-0.5 [facility] Comment on above: Result Comment: PERF ORMED BY: [place] [address] PATHOLOGIST DIE HARDENER CARTER MARSHALL M.D. Performed By: #### C RP, ESR, CBC, CMP #### [place] [address] [place] Calcium [Mass/volume] in Ser um or PlasmaOrdered By: Ghassan Ramos on 12-09-2023 Calcium [Mass/Vol] 9.6 mg/dL Normal 8.6-10.3 [facility] Comment on above: Performed By: #### C RP, ESR, CBC, CMP #### [facility] [address] [place] [address] [place] Carbon dioxide, total [Moles /volume] in Serum or PlasmaOrdered By: Ghassan Ramos on 12-09-2023 CO2 [Moles/Vol] 27.9 mmol/L Normal 21.0-31.0 [facility] Comment on above: Performed By: #### C RP, ESR, CBC, CMP #### [facility] [address] [place] [address] [place] Chloride [Moles/volume] in S maureen or PlasmaOrdered By: Ghassan Ramos on 12-09-2023 Chloride [Moles/Vol] 104 mmol/L Normal 98-107 [facility] Comment on above: Performed By: #### C RP, ESR, CBC, CMP #### [address] Complete Blood Count Auto Di ffon 12-09-2023 Mean Corpuscular HGB Conc 34.6 g/dL Normal 32.0-35.0 [facility] Comment on above: Performed By: #### C RP, ESR, CBC, CMP #### [address] NRBC% 0.2 /100{WBC} Normal 0-0.5 [facility] Comment on above: Performed By: #### C RP, ESR, CBC, CMP #### [address] Comprehensive Metabolic Pane tono 12-09-2023 Albumin [Mass/Vol] 4.3 g/dL Normal 3.5-5.7 [facility] Comment on above: Performed By: #### C RP, ESR, CBC, CMP #### [address] GFR/1.73 sq M.predicted MDRD (S/P/Bld) [Vol rate/Area] mL/min/{1.73_m2} Normal [facility] Comment on above: Performed By: #### C RP, ESR, CBC, CMP #### [address] Creatinine [Mass/volume] in Serum or PlasmaOrdered By: Ghassan Ramos on 12-09-2023 Creatinine [Mass/Vol] 0.57 mg/dL Low 0.60-1.20 [facility] Comment on above: Performed By: #### C RP, ESR, CBC, CMP #### [address] Erythrocyte Sedimentation Ra roxann 12-09-2023 ESR (Bld) [Velocity] 27 mm/h High 0-19 [facility] Comment on above: Result Comment: PERF ORMED BY: [place] [address] PATHOLOGIST DIE HARDENER CARTER MARSHALL M.D. Performed By: #### C RP, ESR, CBC, CMP #### [facility] [address] Erythrocyte distribution wid th [Ratio] by Automated countOrdered By: Ghassan Ramos on 12-09-2023 Erythrocyte distribution width (RBC) [Ratio] 13.2 % Normal 11.9-15.3 [facility] Comment on above: Performed By: #### C RP, ESR, CBC, CMP #### [facility] [address] Erythrocyte sedimentation ra te by Photometric methodOrdered By: Ghassan Ramos on 12-09-2023 ESR Photometric method (Bld) [Velocity] 27 mm/hr High 0-19 [facility] Erythrocytes [#/volume] in B lood by Automated countOrdered By: Ghassan Ramos on 12-09-2023 RBC (Bld) [#/Vol] 4.48 10*6/uL Normal 3.60-5.00 [facility] Comment on above: Performed By: #### C RP, ESR, CBC, CMP #### [address] Glucose [Mass/volume] in Ser um or PlasmaOrdered By: Ghassan Ramos on 12-09-2023 Glucose [Mass/Vol] 90 mg/dL Normal 70-100 [facility] Comment on above: ADA recommended refe rence rangeRandom Glucose Reference Range is dependent on time and content of last meal. Glucose of more than 200 mg/dL in a nonstressed, ambulatory subject supports the diagnosis of Diabetes Mellitus. Result Comment: [place] Glucose Reference Range is dependent on time and content of last meal. Glucose of more than 200 mg/dL in a nonstressed, ambulatory subject supports the diagnosis of Diabetes Mellitus. ADA recommended reference range Performed By: #### C RP, ESR, CBC, CMP #### [address] Hematocrit [Volume Fraction] of Blood by Automated countOrdered By: Ghassan Ramos on 12-09-2023 Hematocrit (Bld) [Volume fraction] 38.9 % Normal 34.0-46.4 [facility] Comment on above: Performed By: #### C RP, ESR, CBC, CMP #### [address] Hemoglobin [Mass/volume] in BloodOrdered By: Ghassan Ramos on 12-09-2023 Hemoglobin (Bld) [Mass/Vol] 13.5 g/dL Normal 11.8-15.4 [facility] Comment on above: Performed By: #### C RP, ESR, CBC, CMP #### [address] Leukocytes [#/volume] correc ting for nucleated erythrocytes in Blood by Automated counOrdered By: Ghassan Ramos on 12-09-2023 WBC corrected for nucl RBC Auto (Bld) [#/Vol] 7.2 10*3/uL 3.8-11.6 [facility] Leukocytes [#/volume] in Blo od by Automated countOrdered By: Ghassan Ramos on 12-09-2023 WBC (Bld) [#/Vol] 7.2 10*3/uL Normal 3.8-11.6 [facility] Comment on above: Performed By: #### C RP, ESR, CBC, CMP #### [address] Lymphocytes [#/volume] in Bl ood by Automated countOrdered By: Ghassan Ramos on 12-09-2023 Lymphocytes (Bld) [#/Vol] 1.9 10*3/uL Normal 1.00-4.8 [facility] Comment on above: Performed By: #### C RP, ESR, CBC, CMP #### [address] Lymphocytes/100 leukocytes i n Blood by Automated countOrdered By: Ghassan Ramos on 12-09-2023 Lymphocytes/100 WBC (Bld) 26.1 % Normal . [facility] Comment on above: Performed By: #### C RP, ESR, CBC, CMP #### [address] MCH [Entitic mass] by Automa ting countOrdered By: Ghassan Ramos on 12-09-2023 MCH (RBC) [Entitic mass] 30.1 pg Normal 24.7-34.3 [facility] Comment on above: Performed By: #### C RP, ESR, CBC, CMP #### [facility] [address] [place] [address] MCHC Auto (RBC) [Mass/Vol]Or dered By: Ghassan Ramos on 12-09-2023 MCHC (RBC) [Mass/Vol] 34.6 g/dL 32.0-35.0 [facility] MCV [Entitic volume] by Auto mated countOrdered By: Ghassan Ramos on 12-09-2023 MCV (RBC) [Entitic vol] 86.9 fL Normal 80-100 [facility] [place] Comment on above: Performed By: #### C RP, ESR, CBC, CMP #### [facility] [address] [place] [address] Neutrophils [#/volume] in Bl ood by Automated countOrdered By: Ghassan Ramos on 12-09-2023 Neutrophils (Bld) [#/Vol] 4.5 10*3/uL Normal 1.8-7.7 [facility] Comment on above: Performed By: #### C RP, ESR, CBC, CMP #### [address] No Panel InformationOrdered By: Ghassan Ramos on 12-09-2023 Estimated GFR (CKD-EPI) > 60.0 mL/Min [facility] Creatinine Clearance (Chem N/A [facility] Nucleated erythrocytes [Pres ence] in Blood by Automated countOrdered By: Ghassan Ramos on 12-09-2023 Nucleated RBC Auto Ql (Bld) 0.2 /100{WBC} 0-0.5 [facility] Platelet mean volume [Entiti c volume] in Blood by Automated countOrdered By: Ghassan Ramos on 12-09-2023 Platelet mean volume (Bld) [Entitic vol] 8.5 fL Normal 6.3-10.7 [facility] Comment on above: Performed By: #### C RP, ESR, CBC, CMP #### [facility] [address] Platelets [#/volume] in Bloo d by Automated countOrdered By: Ghassan Ramos on 12-09-2023 Platelets (Bld) [#/Vol] 349 10*3/uL Normal 150-450 [facility] Comment on above: Performed By: #### C RP, ESR, CBC, CMP #### [address] Potassium [Moles/volume] in Serum or PlasmaOrdered By: Ghassan Ramos on 12-09-2023 Potassium [Moles/Vol] 4.4 mmol/L Normal 3.5-5.1 [facility] Comment on above: Performed By: #### C RP, ESR, CBC, CMP #### [address] Protein [Mass/volume] in Ser um or PlasmaOrdered By: Ghassan Ramos on 12-09-2023 Protein [Mass/Vol] 6.8 g/dL Normal 6.4-8.9 [facility] Comment on above: Performed By: #### C RP, ESR, CBC, CMP #### [address] Serum globulin measurement b y calculation (mass/volume)Ordered By: Ghassan Ramos on 12-09-2023 Globulin (S) [Mass/Vol] 2.5 g/dL Normal [facility] [place] Comment on above: Performed By: #### C RP, ESR, CBC, CMP #### [address] Serum or plasma albumin/glob ulin mass ratioOrdered By: Ghassan Ramos on 12-09-2023 Albumin/Globulin [Mass ratio] 1.7 {ratio} Normal [facility] Comment on above: Performed By: #### C RP, ESR, CBC, CMP #### [address] Serum or plasma anion gap de terminationOrdered By: Ghassan Ramos on 12-09-2023 Anion gap [Moles/Vol] 10.5 mmol/L Normal 6.0-15.0 [facility] Comment on above: Performed By: #### C RP, ESR, CBC, CMP #### [facility] [address] Sodium [Moles/volume] in Ser um or PlasmaOrdered By: Ghassan Ramos on 12-09-2023 Sodium [Moles/Vol] 138 mmol/L Normal 136-145 [facility] Comment on above: Performed By: #### C RP, ESR, CBC, CMP #### [facility] [address] Urea nitrogen [Mass/volume] in Serum or PlasmaOrdered By: Ghassan Ramos on 12-09-2023 Urea nitrogen [Mass/Vol] 16 mg/dL Normal 7-25 [facility] Comment on above: Performed By: #### C RP, ESR, CBC, CMP #### [facility] [address] ALL THYROID STIM HORMONEon 0 11-09-2023 Interpretation and review of laboratory results Abnormal [facility] TSH Qn 3.894 m[IU]/L High [facility] COVID + FLU Quick Testingon 02-26-2023 SARS-CoV-2 (COVID-19) RNA LIANNE+probe Ql (Unsp spec) Positive [facility] Other COVID + FLU Quick Testing Negative [facility] Other CBC AUTO DIFFon 05-28-2022 BASO # 0.0 103/ul Normal 0.0-0.1 [facility] Comment on above: Performed By: #### C BC #### [facility] [address] [place] [address] Dr. Tracey Mccoy Basophils/100 WBC (Bld) 0.3 % Normal 0.2-2.0 [facility] Comment on above: Performed By: #### C BC #### [facility] [address] [address] [address] Tracey Mccoy EO # 0.2 103/ul Normal 0.0-0.7 [facility] Comment on above: Performed By: #### C BC #### [facility] [address] [place] [address] Dr. Tracey Mccoy Eosinophils/100 WBC (Bld) 1.7 % Normal 0.9-7.0 [facility] Comment on above: Performed By: #### C BC #### [facility] [address] [place] [address] Dr. Tracey Mccoy Erythrocyte distribution width (RBC) [Ratio] 12.4 % Normal 11.0-15.0 [facility] Comment on above: Performed By: #### C BC #### [facility] [address] [place] [address] Dr. Tracey Mccoy Hematocrit (Bld) [Volume fraction] 36.2 % Normal 36.0-48.0 [facility] Comment on above: Performed By: #### C BC #### [facility] [address] [place] [address] Dr. Tracey Mccoy Hemoglobin (Bld) [Mass/Vol] 12.2 g/dL Normal 12.0-16.0 [facility] Comment on above: Performed By: #### C BC #### [facility] [address] [place] [address] Dr. Tracey Mccoy IG # 0.05 10e3/ul Critically high 0.00-0.03 [facility] Comment on above: Performed By: #### C BC #### [facility] [address] [place] [address] Dr. Tracey Mccoy IG % 0.5 % Normal 0.0-0.5 [facility] Comment on above: Performed By: #### C BC #### [facility] [address] [place] [address] Dr. Tracey Mccoy LYMPH # 2.3 103/ul Normal 1.2-3.8 [facility] Comment on above: Performed By: #### C BC #### [facility] [address] [place] [address] Dr. Tracey Mccoy Lymphocytes/100 WBC (Bld) 25.6 % Normal 20.5-60.0 [facility] Comment on above: Performed By: #### C BC #### [facility] [address] [place] [address] Dr. Tracey Mccoy MANUAL DIFF REQ NO Normal [facility] Comment on above: Performed By: #### C BC #### [facility] [address] [place] [address] Dr. Tracey Mccoy MCH (RBC) [Entitic mass] 29.0 pg Normal 26.7-34.0 [facility] Comment on above: Performed By: #### C BC #### [facility] [address] [place] [address] Dr. Tracey Mccoy MCHC (RBC) [Mass/Vol] 33.7 g/dL Normal 29.9-35.2 [facility] Comment on above: Performed By: #### C BC #### [facility] [address] [place] [address] Dr. Tracey Mccoy MCV (RBC) [Entitic vol] 86.0 fL Normal 81.0-99.0 [facility] Comment on above: Performed By: #### C BC #### [facility] [address] [place] [address] Dr. Tracey Mccoy MONO # 0.7 103/ul Normal 0.3-0.8 [facility] Comment on above: Performed By: #### C BC #### [facility] [address] [place] [address] Dr. Tracey Mccoy Monocytes/100 WBC (Bld) 7.7 % Normal 1.7-12.0 [facility] Comment on above: Performed By: #### C BC #### [facility] [address] [place] [address] Dr. Tracey Mccoy NEUT # 5.9 103/ul Normal 1.4-6.5 [facility] Comment on above: Performed By: #### C BC #### [facility] [address] [place] [address] Dr. Tracey Mccoy Neutrophils/100 WBC (Bld) 64.2 % Normal 43.0-75.0 [facility] Comment on above: Performed By: #### C BC #### [facility] [address] [place] [address] Dr. Tracey Mccoy Platelet mean volume (Bld) [Entitic vol] 9.5 fL Normal 9.5-13.5 [facility] Comment on above: Performed By: #### C BC #### [facility] [address] [place] [address] Dr. Tracey Mccoy PLT 348 103/ul Normal 150-450 [facility] Comment on above: Performed By: #### C BC #### [facility] [address] [place] [address] Dr. Tracey Mccoy RBC 4.21 106/ul Normal 4.20-5.40 [facility] Comment on above: Performed By: #### C BC #### [facility] [address] [place] [address] Dr. Tracey Mccoy WBC 9.2 103/ul Normal 4.0-11.0 [facility] Comment on above: Performed By: #### C BC #### [facility] [address] [place] [address] Dr. Tracey Mccoy FERRITINon 05-28-2022 Ferritin [Mass/Vol] 15.0 ng/mL Normal 6.2-137.0 [facility] Comment on above: Performed By: #### F ERR #### [facility] [address] [place] [address] Dr. Tracey Mccoy MAGNESIUMon 05-28-2022 Magnesium [Mass/Vol] 1.7 mg/dL Critically low 1.8-2.4 [facility] Comment on above: Performed By: #### M G, CMP #### [facility] [address] [place] [address] Dr. Tracey Mccoy PROF 14(COMP METB)on 023 Albumin [Mass/Vol] 3.7 g/dL Normal 3.4-5.0 [facility] Comment on above: Performed By: #### M G, CMP #### [facility] [address] [place] [address] Dr. Tracey Mccoy Albumin/Globulin [Mass ratio] 1.0 {ratio} Normal [facility] Comment on above: Performed By: #### M G, CMP #### [facility] [address] [address] [address] Tracey Mccoy ALP [Catalytic activity/Vol] 89 U/L Normal 46-116 [facility] Comment on above: Performed By: #### M G, CMP #### [facility] [address] [address] [address] Tracey Mccoy ALT [Catalytic activity/Vol] 26 U/L Normal 14-59 [facility] Comment on above: Performed By: #### M G, CMP #### [facility] [address] [place] [address] Dr. Tracey Mccoy Anion gap [Moles/Vol] 13.2 mmol/L Normal [place] Comment on above: Performed By: #### Jama Vivienne, CMP #### [facility] [address] [address] [address] Traecy Mccoy AST [Catalytic activity/Vol] 19 U/L Normal 15-37 [facility] Comment on above: Performed By: #### Jama Palafox, CMP #### [facility] [address] [address] [address] Tracey Mccoy Bilirubin [Mass/Vol] 0.6 mg/dL Normal 0.2-1.0 [facility] Comment on above: Performed By: #### Jama G, CMP #### [facility] [address] [address] [address] Tracey Mccoy Calcium [Mass/Vol] 9.2 mg/dL Normal 8.5-10.1 [facility] Comment on above: Performed By: #### M G, CMP #### [facility] [address] [place] [address] Dr. Tracey Mccoy Chloride [Moles/Vol] 101 mmol/L Normal 98-107 [facility] Comment on above: Performed By: #### M G, CMP #### [facility] [address] [place] [address] Dr. Tracey Mccoy CO2 [Moles/Vol] 26.9 mmol/L Normal 21.0-32.0 [facility] Comment on above: Performed By: #### M G, CMP #### [facility] [address] [place] [address] Dr. Tracey Mccoy Creatinine [Mass/Vol] 0.47 mg/dL Critically low 0.55-1.02 [facility] Comment on above: Performed By: #### M G, CMP #### [facility] [address] [place] [address] Dr. Tracey Mccoy EGFR-AF PAPUA [place] >60 Normal >=60 [facility] Comment on above: Performed By: #### M G, CMP #### [facility] [address] [place] [address] Dr. Tracey Mccoy EGFR-NON AF PAPUA [place] >60 Normal >=60 [facility] Comment on above: Performed By: #### M G, CMP #### [facility] [address] [place] [address] Dr. Tracey Mccoy Globulin (S) [Mass/Vol] 3.6 g/dL Normal [facility] Comment on above: Performed By: #### M G, CMP #### [facility] [address] [place] [address] Dr. Tracey Mccoy Glucose [Mass/Vol] 88 mg/dL Normal 74-106 [facility] Comment on above: Performed By: #### M G, CMP #### [facility] [address] [place] [address] Dr. Tracey Mccoy Potassium [Moles/Vol] 4.1 mmol/L Normal 3.5-5.1 [facility] Comment on above: Performed By: #### M G, CMP #### [facility] [address] [place] [address] Dr. Tracey Mccoy Protein [Mass/Vol] 7.3 g/dL Normal 6.4-8.2 [facility] Comment on above: Performed By: #### M G, CMP #### [facility] [address] [place] [address] Dr. Tracey Mccoy Sodium [Moles/Vol] 137 mmol/L Normal 136-145 [facility] Comment on above: Performed By: #### M Vivienne, CMP #### [facility] [address] [address] [address] Tracey Mccoy Urea nitrogen [Mass/Vol] 5.0 mg/dL Critically low 7.0-18.0 [facility] Comment on above: Performed By: #### M Vivienne, CMP #### [facility] [address] [address] [address] Tracey Mccoy Urea nitrogen/Creatinine [Mass ratio] 10.6 mg/mg Normal [facility] Comment on above: Performed By: #### M Vivienne, CMP #### [facility] [address] [place] [address] Dr. Tracey Mccoy PAP ACOG PANEL 2: 30 to 65on 05-14-2022 . . Normal [facility] Comment on above: Result Comment: Perf ormed at: WB Performed By: #### [id number] #### [facility] [address] [place] [address] Dr. Tracey Mccoy Age Gdln ACOG Testing 30-65 Normal [facility] Comment on above: Performed By: #### [id number] #### [facility] [address] [place] [address] Dr. Tracey Mccoy DIAGNOSIS: Comment Normal [facility] Comment on above: Result Comment: NEGA TIVE FOR INTRAEPITHELIAL LESION OR MALIGNANCY. Performed at: WB Performed By: #### [id number] #### [facility] [address] [place] [address] Dr. Tracey Mccoy HPV Aptima Negative Normal Negative [facility] Comment on above: Result Comment: This nucleic acid amplification test detects fourteen high-risk HPV types (16,18,31,33,35,39,45,51,52,56,58,59,66,68) without differentiation. Performed at: =G Performed By: #### [id number] #### [facility] [address] [place] [address] Dr. Tracey Mccoy HPV Genotype Reflex Comment Normal [facility] Comment on above: Result Comment: Crit eria not met, HPV Genotype not performed. Performed at: WB Performed By: #### [id number] #### [facility] [address] [place] [address] Dr. Tracey Mccoy Methodology: Comment Normal [facility] Comment on above: Result Comment: This liquid based ThinPrep(R) pap test was screened with the use of an image guided system. Performed at: WB Performed By: #### [id number] #### [facility] [address] [place] [address] Dr. Tracey Mccoy Note: Comment Normal [facility] Comment on above: Result Comment: The Pap smear is a screening test designed to aid in the detection of premalignant and malignant conditions of the uterine cervix. It is not a diagnostic procedure and should not be used as the sole means of detecting cervical cancer. Both false-positive and false-negative reports do occur. . Performed at: WB Performed By: #### [id number] #### [facility] [address] [place] [address] Dr. Tracey Mccoy Performed by: Comment Normal [facility] Comment on above: Result Comment: Daysi Cheema, Lens Block Gauger Performed at: WB Performed By: #### [id number] #### [facility] [address] [place] [address] Dr. Tracey Mccoy Specimen adequacy: Comment Normal [facility] Comment on above: Result Comment: Sati sfactory for evaluation. Endocervical and/or squamous metaplastic cells (endocervical component) are present. Performed at: WB Performed By: #### [id number] #### [facility] [address] [place] [address] Dr. Tracey Mccoy BNPon 02-23-2022 Natriuretic peptide B (Bld) [Mass/Vol] 37.0 pg/mL Normal <=450.0 [facility] Comment on above: Performed By: #### B DEPARTURE CLERK #### [facility] [address] [place] [address] Dr. Tracey Mccoy CBC AUTO DIFFon 02-23-2022 BASO # 0.0 103/ul Normal 0.0-0.1 [facility] Comment on above: Performed By: #### C BC #### [facility] [address] [address] [address] Tracey Mccoy Basophils/100 WBC (Bld) 0.3 % Normal 0.2-2.0 [facility] Comment on above: Performed By: #### C BC #### [facility] [address] [address] [address] Tracey Mccoy EO # 0.0 103/ul Normal 0.0-0.7 [facility] Comment on above: Performed By: #### C BC #### [facility] [address] [place] [address] Dr. Tracey Mccoy Eosinophils/100 WBC (Bld) 0.3 % Critically low 0.9-7.0 [facility] Comment on above: Performed By: #### C BC #### [facility] [address] [place] [address] Dr. Tracey Mccoy Erythrocyte distribution width (RBC) [Ratio] 12.9 % Normal 11.0-15.0 [facility] Comment on above: Performed By: #### C BC #### [facility] [address] [place] [address] Dr. Tracey Mccoy Hematocrit (Bld) [Volume fraction] 37.5 % Normal 36.0-48.0 [facility] Comment on above: Performed By: #### C BC #### [facility] [address] [place] [address] Dr. Tracey Mccoy Hemoglobin (Bld) [Mass/Vol] 12.1 g/dL Normal 12.0-16.0 [facility] Comment on above: Performed By: #### C BC #### [facility] [address] [place] [address] Dr. Tracey Mccoy IG # 0.02 10e3/ul Normal 0.00-0.03 [facility] Comment on above: Performed By: #### C BC #### [facility] [address] [place] [address] Dr. Tracey Mccoy IG % 0.3 % Normal 0.0-0.5 [facility] Comment on above: Performed By: #### C BC #### [facility] [address] [place] [address] Dr. Tracey Mccoy LYMPH # 2.0 103/ul Normal 1.2-3.8 [facility] Comment on above: Performed By: #### C BC #### [facility] [address] [place] [address] Dr. Tracey Mccoy Lymphocytes/100 WBC (Bld) 28.4 % Normal 20.5-60.0 [facility] Comment on above: Performed By: #### C BC #### [facility] [address] [place] [address] Dr. Tracey Mccoy MANUAL DIFF REQ NO Normal [facility] Comment on above: Performed By: #### C BC #### [facility] [address] [place] [address] Dr. Tracey Mccoy MCH (RBC) [Entitic mass] 28.5 pg Normal 26.7-34.0 [facility] Comment on above: Performed By: #### C BC #### [facility] [address] [place] [address] Dr. Tracey Mccoy MCHC (RBC) [Mass/Vol] 32.3 g/dL Normal 29.9-35.2 [facility] Comment on above: Performed By: #### C BC #### [facility] [address] [place] [address] Dr. Tracey Mccoy MCV (RBC) [Entitic vol] 88.4 fL Normal 81.0-99.0 [facility] Comment on above: Performed By: #### C BC #### [facility] [address] [place] [address] Dr. Tracey Mccoy MONO # 0.5 103/ul Normal 0.3-0.8 [facility] Comment on above: Performed By: #### C BC #### [facility] [address] [place] [address] Dr. Tracey Mccoy Monocytes/100 WBC (Bld) 7.7 % Normal 1.7-12.0 [facility] Comment on above: Performed By: #### C BC #### [facility] [address] [place] [address] Dr. Tracey Mccoy NEUT # 4.4 103/ul Normal 1.4-6.5 [facility] Comment on above: Performed By: #### C BC #### [facility] [address] [place] [address] Dr. Tracey Mccoy Neutrophils/100 WBC (Bld) 63.0 % Normal 43.0-75.0 [facility] Comment on above: Performed By: #### C BC #### [facility] [address] [place] [address] Dr. Tracey Mccoy Platelet mean volume (Bld) [Entitic vol] 9.2 fL Critically low 9.5-13.5 [facility] Comment on above: Performed By: #### C BC #### [facility] [address] [place] [address] Dr. Tracey Mccoy PLT 278 103/ul Normal 150-450 [facility] Comment on above: Performed By: #### C BC #### [facility] [address] [place] [address] Dr. Tracey Mccoy RBC 4.24 106/ul Normal 4.20-5.40 [facility] Comment on above: Performed By: #### C BC #### [facility] [address] [place] [address] Dr. Tracey Mccoy WBC 6.9 103/ul Normal 4.0-11.0 [facility] Comment on above: Performed By: #### C BC #### [facility] [address] [place] [address] Dr. Tracey Mccoy PROF 14(COMP METB)on 022 Albumin [Mass/Vol] 3.7 g/dL Normal 3.4-5.0 [facility] Comment on above: Performed By: #### C MP, HSTROPN #### [facility] [address] [place] [address] Dr. Tracey Mccoy Albumin/Globulin [Mass ratio] 0.9 {ratio} Normal [facility] Comment on above: Performed By: #### C MP, HSTROPN #### [facility] [address] [address] [address] Tracey Mccoy ALP [Catalytic activity/Vol] 103 U/L Normal 46-116 [facility] Comment on above: Performed By: #### C MP, HSTROPN #### [facility] [address] [address] [address] Tracey Mccoy ALT [Catalytic activity/Vol] 67 U/L Critically high 14-59 [facility] Comment on above: Performed By: #### C MP, HSTROPN #### [facility] [address] [address] [address] Tracey Mccoy Anion gap [Moles/Vol] 9.6 mmol/L Normal [facility] Comment on above: Performed By: #### C MP, HSTROPN #### [facility] [address] [place] [address] Dr. Tracey Mccoy AST [Catalytic activity/Vol] 100 U/L Critically high 15-37 [facility] Comment on above: Performed By: #### C MP, HSTROPN #### [facility] [address] [address] [address] Tracey Mccoy Bilirubin [Mass/Vol] 0.4 mg/dL Normal 0.2-1.0 [facility] Comment on above: Performed By: #### C MP, HSTROPN #### [facility] [address] [address] [address] Tracey Mccoy Calcium [Mass/Vol] 8.8 mg/dL Normal 8.5-10.1 [facility] Comment on above: Performed By: #### C MP, HSTROPN #### [facility] [address] [address] [address] Tracey Mccoy Chloride [Moles/Vol] 104 mmol/L Normal 98-107 [facility] Comment on above: Performed By: #### C MP, HSTROPN #### [facility] [address] [address] [address] Tracey Mccoy CO2 [Moles/Vol] 28.5 mmol/L Normal 21.0-32.0 [facility] Comment on above: Performed By: #### C MP, HSTROPN #### [facility] [address] [address] [address] Tracey Mccoy Creatinine [Mass/Vol] 0.71 mg/dL Normal 0.55-1.02 [facility] Comment on above: Performed By: #### C MP, HSTROPN #### [facility] [address] [address] [address] Tracey Mccoy EGFR-AF PAPUA [place] GU[place]AN >60 Normal >=60 [facility] Comment on above: Performed By: #### C JASIEL, HSTROPN #### [facility] [address] [address] [address] Tracey Mccoy EGFR-NON AF PAPUA [place] >60 Normal >=60 [facility] Comment on above: Performed By: #### C MP, HSTROPN #### [facility] [address] [address] [address] Tracey Mccoy Globulin (S) [Mass/Vol] 3.9 g/dL Normal [facility] Comment on above: Performed By: #### C JASIEL, HSTROPN #### [facility] [address] [address] [address] Tracey Mccoy Glucose [Mass/Vol] 113 mg/dL Critically high 74-106 [facility] Comment on above: Performed By: #### C MP, HSTROPN #### [facility] [address] [address] [address] Tracey Mccoy Potassium [Moles/Vol] 3.1 mmol/L Critically low 3.5-5.1 [facility] Comment on above: Performed By: #### C MP, HSTROPN #### [facility] [address] [place] [address] Dr. Tracey Mccoy Protein [Mass/Vol] 7.6 g/dL Normal 6.4-8.2 [facility] Comment on above: Performed By: #### C MP, HSTROPN #### [facility] [address] [address] [address] Tracey Mccoy Sodium [Moles/Vol] 139 mmol/L Normal 136-145 [facility] Comment on above: Performed By: #### C MP, HSTROPN #### [facility] [address] [address] [address] Tracey Mccoy Urea nitrogen [Mass/Vol] 9.0 mg/dL Normal 7.0-18.0 [facility] Comment on above: Performed By: #### C MP, HSTROPN #### [facility] [address] [address] [address] Tracey Mccoy Urea nitrogen/Creatinine [Mass ratio] 12.7 mg/mg Normal [facility] Comment on above: Performed By: #### C MP, HSTROPN #### [facility] [address] [address] [address] Tracey Mccoy TROPONIN, HIGH SENSITIVITYon 02-23-2022 HSTROP 5.8 pg/mL Normal 4.0-51.3 [facility] Comment on above: Result Comment: CUT- OFF POINTS HAVE BEEN ESTABLISHED BASED ON THE FOURTH UNIVERSAL DEFINITIONS OF MYOCARDIAL INFARCTION. THE UPPER REFERENCE LIMIT (URL) OF TROPONIN, DEFINED THE 99TH PERCENTILE OF cTnI DISTRIBUTION IN A REFERENCE POPULATION, HAS BEEN CONFIRMED THE DECISION THRESHOLD FOR [place] DIAGNOSIS. Performed By: #### C JASIEL, HSTROPN #### [facility] [address] [place] [address] Dr. Tracey Mccoy XR CHEST 1 Von [...] by: CHAN RICHEY Date: 2022-02-23 03:04 Normal [facility] Vital Signs Date Time Vital Sign Value Performing Clinician Facility 05-09-2024 08:41-0500 Body height 167.6 cm Elvie Flowerz DEPARTURE CLERK Work Phone: [facility] 05-09-2024 08:41-0500 Body mass index (BMI) [Ratio] 48.1 kg/m2 Elviecruzito Flowerz DEPARTURE CLERK Work Phone: [facility] 05-09-2024 08:41-0500 Body temperature 98.71 [degF] Elvie Gabrielholz DEPARTURE CLERK Work Phone: [facility] 05-09-2024 08:41-0500 Body weight 135.17 kg Elvie Aichholz DEPARTURE CLERK Work Phone: [facility] 05-09-2024 08:41-0500 Diastolic blood pressure 82 mm[Hg] Elvie Amadorhholz DEPARTURE CLERK Work Phone: [facility] 05-09-2024 08:41-0500 Heart rate 91 /min Elvie Aichholz DEPARTURE CLERK Work Phone: [facility] 05-09-2024 08:41-0500 Respiratory rate 19 /min Elvie Aichholz DEPARTURE CLERK Work Phone: [facility] 05-09-2024 08:41-0500 SaO2% (BldA) [Mass fraction] 97 % Elvie Gabrielholz DEPARTURE CLERK Work Phone: [facility] 05-09-2024 08:41-0500 Systolic blood pressure 118 mm[Hg] Elvie Aichholz DEPARTURE CLERK Work Phone: [facility] 03-23-2024 14:45-0500 Body height 167.6 cm Chan Khan DO Work Phone: [facility] 03-23-2024 14:45-0500 Body mass index (BMI) [Ratio] 47.78 kg/m2 Chan Khan DO Work Phone: [facility] 03-23-2024 14:45-0500 Body weight 134.26 kg Chan Khan DO Work Phone: [facility] 02-21-2024 16:57-0500 Heart rate 80 /min Chan Loren [facility] 02-21-2024 16:57-0500 SaO2% (BldA) [Mass fraction] 99 % Chan Khan [facility] 02-21-2024 16:56-0500 Blood Pressure Location Chan Loren [facility] 02-21-2024 16:56-0500 Diastolic blood pressure 79 mm[Hg] Chan Khan [facility] 02-21-2024 16:56-0500 Mean blood pressure 92 mm[Hg] Chan Khan [facility] 02-21-2024 16:56-0500 Systolic blood pressure 119 mm[Hg] Chan Loren [facility] 02-21-2024 16:56-0500 Respiratory rate 16 /min Chan Loren [facility] 02-21-2024 16:13-0500 Heart rate 60 /min Chan Loren [facility] 02-21-2024 16:13-0500 SaO2% (BldA) [Mass fraction] 98 % Chan Loren [facility] 02-21-2024 16:13-0500 Respiratory rate 18 /min Chan Loren [facility] 02-21-2024 16:13-0500 Blood Pressure Location Chan Loren [facility] 02-21-2024 16:13-0500 Diastolic blood pressure 69 mm[Hg] Chan Khan [facility] 02-21-2024 16:13-0500 Mean blood pressure 82 mm[Hg] Chan Khan [facility] 02-21-2024 16:13-0500 Systolic blood pressure 108 mm[Hg] Chan Khan [facility] 02-21-2024 13:38-0500 Heart rate 78 /min Chan Khan [facility] 02-21-2024 13:38-0500 SaO2% (BldA) [Mass fraction] 100 % Chan Khan [facility] 02-21-2024 13:37-0500 Blood Pressure Location Chan Khan [facility] 02-21-2024 13:37-0500 Diastolic blood pressure 74 mm[Hg] Chan Khan [facility] 02-21-2024 13:37-0500 Mean blood pressure 86 mm[Hg] Chan Khan [facility] 02-21-2024 13:37-0500 Systolic blood pressure 111 mm[Hg] Chan Khan [facility] 02-21-2024 13:37-0500 Respiratory rate 16 /min Chan Khan [facility] 02-21-2024 13:30-0500 Body temperature 96.8 [degF] Chan Khan [facility] 02-21-2024 13:30-0500 Respiratory rate 13 /min Chan Khan [facility] 02-21-2024 13:25-0500 Respiratory rate 17 /min Chan Khan [facility] 02-21-2024 13:10-0500 Respiratory rate 20 /min Chan Khan [facility] 02-21-2024 12:27-0500 Body temperature 97.16 [degF] Chan Khan [facility] 02-21-2024 08:25-0500 Body temperature 97.7 [degF] Chan Loren [facility] 02-08-2024 08:27-0500 Body height 167.6 cm Elvie Aichholz DEPARTURE CLERK Work Phone: [facility] 02-08-2024 08:27-0500 Body mass index (BMI) [Ratio] 47.81 kg/m2 Elvie Aichholz DEPARTURE CLERK Work Phone: [facility] 02-08-2024 08:27-0500 Body temperature 98.6 [degF] Elvie Aichholz DEPARTURE CLERK Work Phone: [facility] 02-08-2024 08:27-0500 Body weight 134.35 kg Elvie Aichholz DEPARTURE CLERK Work Phone: [facility] 02-08-2024 08:27-0500 Diastolic blood pressure 88 mm[Hg] Elvie Aichholz DEPARTURE CLERK Work Phone: [facility] 02-08-2024 08:27-0500 Heart rate 89 /min Elvie Aichholz DEPARTURE CLERK Work Phone: [facility] 02-08-2024 08:27-0500 Respiratory rate 20 /min Elvie Aichholz DEPARTURE CLERK Work Phone: [facility] 02-08-2024 08:27-0500 SaO2% (BldA) [Mass fraction] 98 % Elvie Aichholz DEPARTURE CLERK Work Phone: [facility] 02-08-2024 08:27-0500 Systolic blood pressure 120 mm[Hg] Elvie Aichholz DEPARTURE CLERK Work Phone: [facility] 01-25-2024 08:41-0500 Diastolic blood pressure 80 mm[Hg] Chan Loren [facility] 01-25-2024 08:41-0500 Heart rate 78 /min Chan Khan [facility] 01-25-2024 08:41-0500 Mean blood pressure 98 mm[Hg] Chan Khan [facility] 01-25-2024 08:41-0500 Systolic blood pressure 134 mm[Hg] Chan Loren [facility] 01-25-2024 08:41-0500 Body temperature 97.88 [degF] Chan Loren [facility] 01-25-2024 08:41-0500 Respiratory rate 17 /min Chan Khan [facility] 01-25-2024 08:40-0500 Heart rate 76 /min Chan Khan [facility] 01-25-2024 08:40-0500 SaO2% (BldA) [Mass fraction] 100 % Chan Loren [facility] 01-25-2024 08:40-0500 Diastolic blood pressure 80 mm[Hg] Chan Khan [facility] 01-25-2024 08:40-0500 Mean blood pressure 95 mm[Hg] Chan Khan [facility] 01-25-2024 08:40-0500 Systolic blood pressure 127 mm[Hg] Chan Loren [facility] 01-13-2024 15:18-0500 Body height 167.6 cm Chan Khan DO Work Phone: [facility] 01-13-2024 15:18-0500 Body mass index (BMI) [Ratio] 48.1 kg/m2 Chan Khan DO Work Phone: [facility] 01-13-2024 15:18-0500 Body weight 135.17 kg Chan Khan DO Work Phone: [facility] 11-26-2023 10:57-0400 Body height 165.1 cm [facility] 11-26-2023 10:57-0400 Body mass index (BMI) [Ratio] 51.1 kg/m2 [facility] 11-26-2023 10:57-0400 Body temperature 97.8 [degF] [facility] 11-26-2023 10:57-0400 Body weight 139.47 kg [facility] 11-26-2023 10:57-0400 Diastolic blood pressure 86 mm[Hg] [facility] 11-26-2023 10:57-0400 Heart rate 98 /min [facility] 11-26-2023 10:57-0400 Respiratory rate 16 /min [facility] 11-26-2023 10:57-0400 SaO2% (BldA) [Mass fraction] 99 % [facility] 11-26-2023 10:57-0400 Systolic blood pressure 129 mm[Hg] [facility] 11-09-2023 14:04-0400 Body mass index (BMI) [Ratio] 51.62 kg/m2 Elviecruzito Greer DEPARTURE CLERK Work Phone: [facility] 11-09-2023 14:04-0400 Body temperature 97.81 [degF] Elvie Percy DEPARTURE CLERK Work Phone: [facility] 11-09-2023 14:04-0400 Body weight 140.71 kg Elvie Percy DEPARTURE CLERK Work Phone: [facility] 11-09-2023 14:04-0400 Diastolic blood pressure 86 mm[Hg] Elvie Percy DEPARTURE CLERK Work Phone: [facility] 11-09-2023 14:04-0400 Heart rate 84 /min Elvie Chingz DEPARTURE CLERK Work Phone: [facility] 11-09-2023 14:04-0400 SaO2% (BldA) [Mass fraction] 100 % Elvie Chingz DEPARTURE CLERK Work Phone: [facility] 11-09-2023 14:04-0400 Systolic blood pressure 128 mm[Hg] Elvie Chingz DEPARTURE CLERK Work Phone: [facility] 02-26-2023 09:45-0500 Body height 157.48 cm Mary Jo Thibodeaux Other [employer] Other 02-26-2023 09:45-0500 Body mass index (BMI) [Ratio] 57.13 kg/m2 Mary Jo Thibodeaux Other [employer] Other 02-26-2023 09:45-0500 Body temperature 97.2 [degF] Mary Jo Thibodeaux Other [employer] Other 02-26-2023 09:45-0500 Body weight 141.7 kg Mary Jo Chunmond Other [employer] Other 02-26-2023 09:45-0500 Diastolic blood pressure 86 mm[Hg] Mary Jo Chunmond Other [employer] Other 02-26-2023 09:45-0500 Respiratory rate 18 /min Mary Jo Thibodeaux Other [employer] Other 02-26-2023 09:45-0500 SaO2% (BldA) [Mass fraction] 98 % Mary Jo Thibodeaux Other [employer] Other 02-26-2023 09:45-0500 Systolic blood pressure 136 mm[Hg] Mary Jo Morelia Other [employer] Other Encounters Encounter Date Encounter Type Care Provider Facility Start: 05-09-2024 End: 05-09-2024 Office outpatient visit 25 minutes Elvie Greer DEPARTURE CLERK Work Phone: [facility] Comment on above: 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); Morbid (severe) obesity due to excess calories (CMS/HCC); Body mass index (BMI) 45.0-49.9, adult (CMS/HCC); Mild persistent asthma without complication (CMS/HCC); Gastroesophageal reflux disease, unspecified whether esophagitis present; Anxiety and depression (CMS/HCC); Hypomagnesemia; Elevated glucose; Moderate persistent asthma without complication (CMS/HCC); Moderate persistent asthma, uncomplicated (CMS/HCC); Other constipation Start: 05-09-2024 End: 05-09-2024 ambulatory ELVIE GREER Not Available Start: 05-08-2024 End: 05-08-2024 Admission to same day surgery center Kylee Fernandez PT [facility] Comment on above: Acute postoperative pain of right knee (Primary Dx); Status post right knee replacement; Aftercare following right knee joint replacement surgery; Arthritis of knee, right; Presence of right artificial knee joint; Primary osteoarthritis of right knee Start: 05-08-2024 End: 05-08-2024 ambulatory Kylee Fernandez PT [facility] Start: 05-08-2024 End: 05-08-2024 Bamboo flowsheet Kylee Fernandez PT [facility] Start: 05-08-2024 End: 05-08-2024 Bamboo flowsheet Kylee Fernandez PT [facility] Start: 05-03-2024 End: 05-03-2024 Admission to same day surgery center Kylee Fernandez PT [facility] Comment on above: Acute postoperative pain of right knee (Primary Dx); Status post right knee replacement; Aftercare following right knee joint replacement surgery; Arthritis of knee, right Start: 05-03-2024 End: 05-03-2024 Bamboo flowsheet Kylee Fernandez PT [facility] Start: 05-03-2024 End: 05-03-2024 Bamboo flowsheet Kylee Fernandez PT [facility] Start: 05-03-2024 End: 05-03-2024 ambulatory Kylee Fernandez PT [facility] Start: 05-01-2024 End: 05-01-2024 Bamboo flowsheet Kylee Fernandez PT [facility] Start: 05-01-2024 End: 05-01-2024 Bamboo flowsheet Kylee Fernandez PT [facility] Start: 05-01-2024 End: 05-01-2024 Admission to same day surgery center Kylee Fernandez PT [facility] Comment on above: Acute postoperative pain of right knee (Primary Dx); Status post right knee replacement; Aftercare following right knee joint replacement surgery; Arthritis of knee, right; Presence of right artificial knee joint; Primary osteoarthritis of right knee Start: 05-01-2024 End: 05-01-2024 ambulatory Kylee Fernandez PT [facility] Start: 04-26-2024 End: 04-26-2024 Bamboo flowsheet Sumeet Carter REGULATORY COMPLIANCE SPECIALIST [facility] Start: 04-26-2024 End: 04-26-2024 Bamboo flowsheet Sumeet Carter REGULATORY COMPLIANCE SPECIALIST [facility] Start: 04-26-2024 End: 04-26-2024 ambulatory Sumeetjada Carter REGULATORY COMPLIANCE SPECIALIST [facility] Comment on above: Acute postoperative pain of right knee (Primary Dx); Status post right knee replacement; Difficulty walking Start: 04-24-2024 End: 04-24-2024 Admission to same day surgery center Kylee Fernandez PT [facility] Comment on above: Acute postoperative pain of right knee (Primary Dx); Status post right knee replacement; Difficulty walking; Aftercare following right knee joint replacement surgery; Arthritis of knee, right Start: 04-24-2024 End: 04-25-2024 ambulatory Kylee Fernandez PT [facility] Start: 04-24-2024 End: 04-24-2024 Bamboo flowsheet Kylee Fernandez PT [facility] Start: 04-24-2024 End: 04-24-2024 Bamboo flowsheet Kylee Fernandez PT [facility] Start: 04-18-2024 End: 04-18-2024 Clinisync Result Encounter Javier Andrew DO Work Phone: [facility] Unsolicited Start: 04-18-2024 End: 04-18-2024 Clinisync Result Encounter Javier Andrew DO Work Phone: [facility] Unsolicited Start: 04-12-2024 End: 04-12-2024 Admission to same day surgery center Elis Duvall REGULATORY COMPLIANCE SPECIALIST [facility] Comment on above: Acute postoperative pain of right knee (Primary Dx); Status post right knee replacement; Difficulty walking; Aftercare following right knee joint replacement surgery Start: 04-12-2024 End: 04-12-2024 ambulatory Elis Duvall REGULATORY COMPLIANCE SPECIALIST [facility] Start: 04-12-2024 End: 04-12-2024 Bamboo flowsheet Elis Duvall REGULATORY COMPLIANCE SPECIALIST [facility] Start: 04-12-2024 End: 04-12-2024 Bamboo flowsheet Elis Duvall REGULATORY COMPLIANCE SPECIALIST [facility] Start: 04-10-2024 End: [...] Start: 04-05-2024 End: 04-06-2024 ambulatory Sumeet Carter REGULATORY COMPLIANCE SPECIALIST [facility] Comment on above: Arthritis of knee, r ight (Primary Dx); Acute postoperative pain of right knee; Status post right knee replacement; Difficulty walking Start: 04-05-2024 End: 04-05-2024 Refill Elvie Greer DEPARTURE CLERK Work Phone: [facility] Comment on above: Moderate persistent asthma, uncomplicated (CMS/HCC); 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CMS/HCC); Anxiety and depression (CMS/HCC) Start: 04-03-2024 End: 04-04-2024 ambulatory Kylee Fernandez PT [facility] Comment on above: Arthritis of knee, r ight (Primary Dx); Acute postoperative pain of right knee; Status post right knee replacement; Difficulty walking Start: 04-03-2024 End: 04-03-2024 Bamboo flowsheet Kylee Fernandez PT [facility] Start: 04-03-2024 End: 04-03-2024 Bamboo flowsheet Kylee Fernandez PT [facility] Start: 03-28-2024 End: 03-29-2024 ambulatory Baldomero Stephenson REGULATORY COMPLIANCE SPECIALIST [facility] Comment on above: Arthritis of knee, r ight (Primary Dx); Acute postoperative pain of right knee; Status post right knee replacement Start: 03-28-2024 End: 03-28-2024 Bamboo flowsheet Baldomero Stephenson REGULATORY COMPLIANCE SPECIALIST [facility] Start: 03-28-2024 End: 03-28-2024 Bamboo flowsheet Baldomero Stephenson REGULATORY COMPLIANCE SPECIALIST [facility] Start: 03-23-2024 End: [...] 03-21-2024 End: 03-21-2024 Bamboo flowsheet Baldomero Stephenson REGULATORY COMPLIANCE SPECIALIST [facility] Start: 03-21-2024 End: 03-21-2024 Bamboo flowsheet Baldomero Stephenson REGULATORY COMPLIANCE SPECIALIST [facility] Start: 03-15-2024 End: 03-15-2024 ambulatory Kylee Fernandez PT [facility] Comment on above: Arthritis of knee, r ight (Primary Dx); Acute postoperative pain of right knee; Status post right knee replacement; Difficulty walking Start: 03-15-2024 End: 03-15-2024 Bamboo flowsheet Kylee Fernandez PT [facility] Start: 03-15-2024 End: 03-15-2024 Bamboo flowsheet Kylee Fernandez PT [facility] Start: 03-14-2024 End: 03-14-2024 ambulatory MARIANO MCBRIDE Not Available Start: 03-13-2024 End: 03-13-2024 Clinical Support Mariano Mcbride PT Work Phone: [facility] Comment on above: Arthritis of knee, r ight (Primary Dx); Acute postoperative pain of right knee; Status post right knee replacement; Difficulty walking Start: 03-10-2024 End: 03-10-2024 Clinical Support Mariano Mcbride PT Work Phone: [facility] Comment on above: Arthritis of knee, r ight (Primary Dx); Acute postoperative pain of right knee; Status post right knee replacement; Difficulty walking Start: 03-07-2024 End: 03-07-2024 ambulatory MARIANO MCBRIDE Not Available Start: 03-06-2024 End: 03-06-2024 Clinical Support Mariano Mcbride PT Work Phone: [facility] Comment on above: Arthritis of knee, r ight (Primary Dx); Acute postoperative pain of right knee; Status post right knee replacement; Difficulty walking Start: 03-05-2024 End: 03-05-2024 ambulatory MARIANO MCBRIDE Not Available Start: 03-02-2024 End: 03-02-2024 Clinical Support Mariano Mcbride PT Work Phone: [facility] Comment on above: Arthritis of knee, r ight (Primary Dx); Acute postoperative pain of right knee; Status post right knee replacement; Difficulty walking Start: 02-28-2024 End: 02-28-2024 Clinical Support Mariano Mcbride PT Work Phone: [facility] Comment on above: Arthritis of knee, r ight (Primary Dx); Acute postoperative pain of right knee; Status post right knee replacement; Difficulty walking Start: 02-24-2024 End: 02-24-2024 Clinical Support Mariano Mcbride PT Work Phone: [facility] Comment on above: Arthritis of knee, r ight (Primary Dx); Acute postoperative pain of right knee; Status post right knee replacement; Difficulty walking Start: 02-23-2024 End: 02-23-2024 ambulatory MARIANO MCBRIDE Not Available Start: 02-22-2024 End: 02-22-2024 Clinical Support Mariano Mcbride PT Work Phone: [facility] Comment on above: Arthritis of knee, r ight (Primary Dx); Acute postoperative pain of right knee; Status post right knee replacement; Difficulty walking Start: 02-21-2024 End: 02-21-2024 Admission to same day surgery center Chan Khan [facility] Start: 02-21-2024 End: 02-21-2024 ambulatory Chan Khan [place] Start: 02-10-2024 End: 02-10-2024 Bamboo flowsheet Kylee Fernandez PT [facility] Start: 02-10-2024 End: 02-10-2024 Bamboo flowsheet Kylee Fernandez PT [facility] Start: 02-10-2024 End: 02-11-2024 ambulatory Kylee Fernandez PT [facility] Comment on above: Primary osteoarthrit is of right knee (Primary Dx) Start: 02-08-2024 End: 02-08-2024 Bamboo flowsheet Elvie Greer DEPARTURE CLERK Work Phone: [facility] Start: 02-08-2024 End: 02-08-2024 Bamboo flowsheet Elvie Greer DEPARTURE CLERK Work Phone: [facility] Start: 02-08-2024 End: 02-08-2024 Office outpatient visit 25 minutes Elvie Greer DEPARTURE CLERK Work Phone: [facility] Comment on [...] Start: 02-08-2024 End: 02-08-2024 Refill Elvie Greer DEPARTURE CLERK Work Phone: [facility] Comment on above: Psoriasis (CMS/HCC) (Primary Dx) Start: 01-25-2024 End: 01-25-2024 Clinisync Result Encounter Chan Khan DO Work Phone: [facility] Unsolicited Start: 01-25-2024 End: 01-25-2024 Clinisync Result Encounter Chan Khan DO Work Phone: [facility] Unsolicited Start: 01-25-2024 End: 01-25-2024 ambulatory Chan Khan [place] Start: 01-25-2024 End: 01-25-2024 Patient encounter procedure Chan Khan [facility] Start: 01-20-2024 End: 01-20-2024 Clinisync Result Encounter Elvie Greer NP Work Phone: [facility] Unsolicited Start: 01-20-2024 End: 01-20-2024 Clinisync Result Encounter Elvie Greer NP Work Phone: [facility] Unsolicited Start: 01-13-2024 End: 01-13-2024 Patient encounter procedure Chan Hall Khan DO Work Phone: [facility] Comment on above: Pre-op testing (Prim yaw Dx) Start: 01-13-2024 End: 01-13-2024 Patient encounter status Chan Isabel Khan DO Work Phone: [facility] Start: 01-13-2024 End: 01-13-2024 ambulatory CHAN KHAN Not Available Start: 01-13-2024 End: 01-13-2024 Bamboo flowsheet Chan Khan DO Work Phone: [facility] Start: 01-13-2024 End: 01-13-2024 Bamboo flowsheet Chan Khan DO Work Phone: [facility] Start: 12-26-2023 End: 12-26-2023 Refill Elvie Greer NP Work Phone: [facility] Comment on above: Anxiety and depressi on (CMS/HCC); 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CMS/HCC) Start: 12-09-2023 End: 12-09-2023 Patient encounter procedure Elvie Amadormarymicha Work Phone: [facility] [address] Work Phone: Start: 12-09-2023 End: 12-09-2023 ambulatory Elvie Dickerson Amadormarymicha Work Phone: [facility] Work Phone: Start: 11-26-2023 End: 11-26-2023 Refill Elvie Percy DEPARTURE CLERK Work Phone: [facility] Comment on above: Gastroesophageal ref lux disease, unspecified whether esophagitis present Start: 11-26-2023 End: 11-26-2023 ambulatory [facility] Work Phone: Start: 11-26-2023 End: 11-26-2023 Patient encounter procedure [facility] [place] Work Phone: Start: 11-09-2023 End: 11-09-2023 Clinisync Result Encounter Elvie Riosmicha DEPARTURE CLERK Work Phone: [facility] Unsolicited Start: 11-09-2023 End: 11-09-2023 Clinisync Result Encounter Elvie Riosmicha DEPARTURE CLERK Work Phone: [facility] Unsolicited Start: 11-09-2023 End: 11-09-2023 Office outpatient visit 25 minutes Elvie Greer DEPARTURE CLERK Work Phone: [facility] Comment on above: Aura's thyroidi tis (CMS/HCC) (Primary Dx); Morbid obesity with BMI of 50.0-59.9, adult (CMS/HCC); Psoriasis (CMS/HCC); Anxiety and depression (CMS/HCC); Gastroesophageal reflux disease, unspecified whether esophagitis present; Moderate persistent asthma without complication (CMS/HCC); Arthritis of knee, right Start: 11-09-2023 End: 11-09-2023 ambulatory ELVIE GREER Not Available Start: 10-21-2023 End: 10-21-2023 ambulatory CHAN KHAN Not Available Start: 10-05-2023 End: 10-05-2023 ambulatory DEEP HENRY Not Available Start: 09-30-2023 End: 09-30-2023 ambulatory ELVIE AICMaryHOLFermín Not Available Start: 08-31-2023 End: 08-31-2023 ambulatory ELVIE AICHHOLZ Not Available Start: 07-27-2023 ambulatory Elvie Dickerson Amadormarymicha Facilit y:[facility] Start: 07-19-2023 End: 07-20-2023 ambulatory Jamshid Sahu MD Facility:[facility] Start: 06-29-2023 End: 06-29-2023 ambulatory ELVIE AICHHOLZ Not Available Start: 05-27-2023 End: 05-27-2023 ambulatory JAVIER MORALES Not Available Start: 05-18-2023 End: 05-18-2023 ambulatory ELVIE AICHHOLZ Not Available Start: 04-22-2023 End: 04-22-2023 Office outpatient visit 10 minutes Deep Henry DEPARTURE CLERK Work Phone: [facility] Comment on above: Primary osteoarthrit is of right knee (Primary Dx); Right knee pain, unspecified chronicity Start: 04-14-2023 Telephone encounter Elvie Mat darnell DEPARTURE CLERK Work Phone: [facility] Start: 02-26-2023 End: 02-26-2023 ambulatory Mary Jo Thibodeaux Other [employer] Other Start: 02-26-2023 Office outpatient vi sit 15 minutes Mary Jo Thibodeaux [facility] [place] Start: 05-28-2022 End: 05-29-2022 ambulatory [facility] ELVIE AICHHOLZ Facility:[facility] Start: 05-06-2022 End: 05-06-2022 ambulatory [employer] [employer] ELVIE AICHHOLZ Facility:[facility] Start: 02-23-2022 End: 02-23-2022 ambulatory [facility] [employer] ELVIE AICHHOLZ Facility:[facility] Procedures Date Procedure Procedure Detail Performing Clinician Start: 04-18-2024 MM TOMOSYNTHESIS SCR EENING BI Javier Morales DO Work Phone: Start: 04-18-2024 Mammography Javier roberto DO Work Phone: Start: 03-23-2024 Radiologic examinati on knee 3 views Chan Khan DO Work Phone: Start: 02-21-2024 Total knee replacement Chan Khan Start: 01-25-2024 UA WITH CULT RFLX Idris yuliana Khan DO Work Phone: Start: 01-20-2024 ALL THYROID STIM HORMONE Elvie Aichholz DEPARTURE CLERK Work Phone: Start: 01-20-2024 ALL THYROXINE (T4) FREE Elvie Aichholz DEPARTURE CLERK Work Phone: Start: 11-09-2023 ALL THYROID STIM HORMONE Elvie Aichholz DEPARTURE CLERK Work Phone: Start: 05-27-2023 Microscopic observat ion [Identifier] in Cervix by Cyto stain Elvie Percy DEPARTURE CLERK Work Phone: Cholecystectomy Chan mahajan History of hernia repair Kaiden ann Khan Plan of Treatment Date Care Activity Detail Author Start: 05-26-2026 Screening for malignant neoplasm of cervix [facility] Start: 04-18-2025 Screening for malignant neoplasm of breast Mammogram [facility] Start: 06-22-2024 End: 06-22-2024 Patient encounter procedure 06/22/2024 3:45 PM EDT Office Visit [facility] [address] [place] [address] Chan Khan DO [address] [place] [address] [facility] Start: 05-30-2024 End: 05-30-2024 Patient encounter procedure 05/30/2024 10:00 AM EDT Office Visit [facility] [address] [place] [address] Javier Morales, [address] [place] [address] [facility] Start: 05-25-2024 End: 05-25-2024 ambulatory 05/25/2024 2:30 PM EDT Treatment [facility] [address] [place] [address] Kylee Fernandez, PT [facility] Start: 05-24-2024 End: 05-24-2024 ambulatory 05/24/2024 4:00 PM EDT Treatment [facility] [address] [place] [address] Sumeet Carter, REGULATORY COMPLIANCE SPECIALIST [facility] Start: 05-23-2024 End: 05-23-2024 ambulatory 05/23/2024 2:30 PM EDT Treatment [facility] [address] [place] [address] Kylee Fernandez, PT [facility] Start: 05-22-2024 End: 05-22-2024 ambulatory 05/22/2024 4:00 PM EDT Treatment [facility] [address] [place] [address] Sumeet Carter, REGULATORY COMPLIANCE SPECIALIST [facility] Start: 05-18-2024 End: 05-18-2024 ambulatory 05/18/2024 1:30 PM EDT Treatment [facility] [address] [place] [address] Kylee Fernandez, PT [facility] Start: 05-17-2024 End: 05-17-2024 ambulatory 05/17/2024 4:00 PM EDT Treatment [facility] [address] [place] [address] Sumeet Carter, REGULATORY COMPLIANCE SPECIALIST [facility] Start: 05-16-2024 End: 05-16-2024 ambulatory 05/16/2024 2:30 PM EDT Treatment [facility] [address] [place] [address] FernandezMaureenKylee, PT [facility] Start: 05-15-2024 End: 05-15-2024 ambulatory 05/15/2024 4:00 PM EDT Treatment [facility] [address] [place] [address] Brmatthew, Sumeet, REGULATORY COMPLIANCE SPECIALIST [facility] Start: 05-10-2024 End: 05-10-2024 ambulatory [facility] Start: 05-09-2024 End: 05-09-2025 CBC W Auto Differential panel - Blood CBC and differential Lab Routine Mild persistent asthma without complication (CMS/HCC) 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) Expected: 05/09/2024 (Approximate), Expires: 05/09/2025 [facility] Work Phone: Comment on above: Expected: 05/09/2024 (Approximate), Expi res: 05/09/2025 Start: 05-09-2024 End: 05-09-2025 Comprehensive metabolic 2000 panel - Serum or Plasma Comprehensive metabolic panel Lab Routine Morbid (severe) obesity due to excess calories (CMS/HCC) Gastroesophageal reflux disease, unspecified whether esophagitis present 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) Anxiety and depression (CMS/HCC) Hypomagnesemia Elevated glucose Expected: 05/09/2024 (Approximate), Expires: 05/09/2025 [facility] Comment on above: Expected: 05/09/2024 (Approximate), Expi res: 05/09/2025 Start: 05-09-2024 End: 05-09-2025 Hemoglobin A1c/Hemoglobin.total in Blood Hemoglobin A1c Lab Routine Elevated glucose Expected: 05/09/2024 (Approximate), Expires: 05/09/2025 [facility] Comment on above: Expected: 05/09/2024 (Approximate), Expi res: 05/09/2025 Start: 05-09-2024 End: 05-09-2025 Lipid 1996 panel - Serum or Plasma Lipid panel Lab Routine Morbid (severe) obesity due to excess calories (CMS/HCC) Expected: 05/09/2024 (Approximate), Expires: 05/09/2025 [facility] Comment on above: Expected: 05/09/2024 (Approximate), Expi res: 05/09/2025 Start: 05-09-2024 End: 05-09-2025 Magnesium [Mass/volume] in Serum or Plasma Magnesium Lab Routine Hypomagnesemia Expected: 05/09/2024 (Approximate), Expires: 05/09/2025 [facility] Comment on above: Expected: 05/09/2024 (Approximate), Expi res: 05/09/2025 Start: 05-09-2024 End: 05-09-2025 Thyrotropin [Units/volume] in Serum or Plasma TSH Lab Routine 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) Expected: 05/09/2024 (Approximate), Expires: 05/09/2025 [facility] Comment on above: Expected: 05/09/2024 (Approximate), Expi res: 05/09/2025 Start: 05-09-2024 End: 05-09-2025 Thyroxine (T4) free [Mass/volume] in Serum or Plasma T4, free Lab Routine 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) Expected: 05/09/2024 (Approximate), Expires: 05/09/2025 [facility] Comment on above: Expected: 05/09/2024 (Approximate), Expi res: 05/09/2025 Start: 05-09-2024 End: 05-09-2024 Patient encounter procedure 05/09/2024 8:40 AM EST Office Visit [facility] [address] [place] [address] Elvie Greer NP [address] [place] [address] [facility] Start: 05-08-2024 End: 05-08-2024 ambulatory [facility] Comment on above: Arrived Start: 05-03-2024 End: 05-03-2024 ambulatory [facility] Comment on above: Arrived Start: 05-01-2024 End: 05-01-2024 ambulatory [facility] Comment on above: Arrived Start: 04-26-2024 End: 04-26-2024 ambulatory [facility] Comment on above: Acute postoperative pain of right knee ( Primary Dx); Status post right knee replacement; Difficulty walking Start: 04-24-2024 End: 04-24-2024 Admission to same day surgery center 04/24/2024 4:00 PM EST Treatment [facility] [address] [place] [address] Kylee Fernandez, PT Acute postoperative pain of right knee (Primary Dx); Status post right knee replacement; Difficulty walking; Aftercare following right knee joint replacement surgery; Arthritis of knee, right [facility] Comment on above: Acute postoperative pain of right knee ( Primary Dx); Status post right knee replacement; Difficulty walking; Aftercare following right knee joint replacement surgery; Arthritis of knee, right Start: 04-21-2024 End: 04-21-2024 ambulatory 04/21/2024 2:30 PM EST Treatment [facility] [address] [facility] [address] [place] [address] Sumeet Carter, REGULATORY COMPLIANCE SPECIALIST [facility] Start: 04-19-2024 End: 04-19-2024 ambulatory [facility] Start: 04-17-2024 End: 04-17-2024 ambulatory [facility] Start: 04-14-2024 End: 04-14-2024 ambulatory 04/14/2024 2:00 PM EST Treatment [facility] [address] [facility] [address] [place] [address] Baldomero Stephenson, REGULATORY COMPLIANCE SPECIALIST [facility] Start: 04-12-2024 End: 04-12-2024 ambulatory [facility] Comment on above: Arrived Start: 04-10-2024 End: 04-10-2024 ambulatory 04/10/2024 5:00 PM EST Treatment [facility] [address] [place] [address] Kylee Fernandez, PT [facility] Start: 04-05-2024 End: 04-05-2024 ambulatory 04/05/2024 5:00 PM EST Treatment [facility] [address] [place] [address] Sumeet Carter, DAVIS [facility] Start: 04-03-2024 End: 04-03-2024 ambulatory [facility] Comment on above: Arthritis of knee, right (Primary Dx); Acute postoperative pain of right knee; Status post right knee replacement; Difficulty walking Start: 03-28-2024 End: 03-28-2024 ambulatory [facility] Comment on above: Arrived Start: 03-23-2024 End: 03-23-2024 Patient encounter procedure 03/23/2024 3:00 PM EST Office Visit [facility] [address] [place] [address] Chan Khan DO [address] [place] [address] [facility] Start: 03-21-2024 End: 03-21-2024 ambulatory [facility] Comment on above: Arthritis of knee, right (Primary Dx) Start: 03-15-2024 End: 03-15-2024 ambulatory 03/15/2024 5:00 PM EST Treatment [facility] [address] [place] [id number] Kylee Fernandez, PT [facility] Start: 02-10-2024 End: 02-10-2024 ambulatory [facility] Comment on above: Primary osteoarthritis of right knee Start: 02-08-2024 End: 02-08-2024 Patient encounter procedure [facility] Comment on above: Mild persistent asthma without complicat ion (CMS/HCC) (Primary Dx); Gastroesophageal reflux disease, unspecified [...] Routine Pre-op testing Expected: 01/25/2024, Expires: 01/12/2025 [facility] Work Phone: Comment on above: Expected: 01/25/2024, Expires: Start: 01-13-2024 End: 01-13-2024 Patient encounter procedure 01/13/2024 3:15 PM EST Office Visit [facility] [address] [place] [address] Chan Khan DO [address] [place] [address] Arrived [facility] Comment on above: Arrived Start: 01-06-2024 Influenza vaccination Influenza Vaccine (#1) [facility] Comment on above: Postponed from 11/07/2023 (Patient Refus ed) Start: 2023 Screening for malignant neoplasm of breast Mammogram [facility] Start: 11-09-2023 End: 11-09-2023 Patient encounter procedure 11/09/2023 2:00 PM EDT Office Visit [facility] [address] [place] [address] Elvie Greer, DEPARTURE CLERK [address] [place] [address] [facility] Start: 11-09-2023 End: 11-08-2024 Thyrotropin [Units/volume] in Serum or Plasma TSH Lab Routine 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CMS/HCC) Expected: 11/09/2023 (Approximate), Expires: 11/08/2024 [facility] Work Phone: Comment on above: Expected: 11/09/2023 (Approximate), Expi res: 11/08/2024 Start: 11-09-2023 End: 11-08-2024 Thyroxine (T4) free [Mass/volume] in Serum or Plasma T4, free Lab Routine 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CMS/HCC) Expected: 11/09/2023 (Approximate), Expires: 11/08/2024 [facility] Comment on above: Expected: 11/09/2023 (Approximate), Expi res: 11/08/2024 Start: 05-27-2023 End: 05-27-2023 Patient encounter procedure 05/27/2023 10:00 AM EDT Office Visit [facility] [address] [place] [id number] Javier Morales DO [address] [place] [address] [facility] Start: 05-18-2023 End: 05-18-2023 Patient encounter procedure 05/18/2023 9:20 AM EDT Office Visit [facility] [address] [place] [address] Elvie Greer NP [address] [place] [address] [facility] Start: 04-22-2023 End: 04-22-2023 Patient encounter procedure 04/22/2023 10:15 AM EST Office Visit [facility] [address] [facility] [address] [id number] Deep Henry, DEPARTURE CLERK [address] [place] [address] [facility] Start: 11-18-2013 Screening for malignant neoplasm of cervix [facility] Start: 11-18-2004 Screening for malignant neoplasm of cervix Pap Smear [facility] Immunizations Immunization Date Immunization Notes Care Provider [facility] 12-22-2023 influenza, seasonal, injectable, preservative free Elvie Aichholz DEPARTURE CLERK Work Phone: [facility] 10-29-2022 influenza, injectabl e, quadrivalent, preservative free Elvie Aichholz DEPARTURE CLERK Work Phone: [facility] 10-29-2022 influenza virus vacc ine, unspecified formulation Elvie Aichholz DEPARTURE CLERK Work Phone: [facility] Payers Date Payer Category Payer Self-pay 2023 Private Health Insurance [id number] 2023 Unknown [id number] 1983 Unknown [id number] 2.16.84 0.1.240138.3.579.2.593 1983 Unknown [id number] 2.16.84 0.1.528783.3.579.2.593 1983 Unknown [id number] 2.16.84 0.1.127658.3.579.2.593 1983 Unknown [id number] 2.16. 840.1.148188.3.579.2.196 1983 Unknown [id number] 2.16.8 40.1.010352.3.579.2.727 1983 Unknown [id number] 2.16.8 40.1.701655.3.579.2.727 1983 Unknown [id number] 2.16.8 40.1.163283.3.579.2.727 1983 Unknown [id number] 2.16.84 0.1.341332.3.579.2.1259 1983 Unknown [id number] 2.16.84 0.1.353041.3.579.2.1259 1983 Unknown [id number] 2.16.84 0.1.548570.3.579.2.1259 1983 Unknown [id number] 2.16.84 0.1.170296.3.579.2.1259 1983 Unknown [id number] 2.16.84 0.1.765751.3.579.2.1259 1983 Unknown [id number] 2.16.84 0.1.917819.3.579.2.1258 1983 Unknown [id number] 2.16.84 0.1.853284.3.579.2.1258 1983 Unknown [id number] 2.16.84 0.1.629776.3.579.2.1258 1983 Unknown [id number] 2.16.84 0.1.334174.3.579.2.1258 1983 Unknown [id number] 2.16.84 0.1.808307.3.579.2.1258 1983 Unknown [id number] 2.16.84 0.1.686168.3.579.2.1258 1983 Unknown [id number] 2.16.84 0.1.478971.3.579.2.1258 1983 Unknown [id number] 2.16.84 0.1.084215.3.579.2.1258 1983 Unknown [id number] 2.16.84 0.1.588531.3.579.2.1258 1983 Unknown [id number] 2.16.84 0.1.375212.3.579.2.1258 1983 Unknown [id number] 2.16.84 0.1.427399.3.579.2.1258 1983 Unknown [id number] 2.16.84 0.1.708196.3.579.2.1258 1983 Unknown [id number] 2.16.84 0.1.427446.3.579.2.1258 1983 Unknown [id number] 2.16.84 0.1.663464.3.579.2.1258 1983 Unknown [id number] 2.16.84 0.1.522297.3.579.2.1258 1983 Unknown [id number] 2.16.84 0.1.427090.3.579.2.1258 1983 Unknown [id number] 2.16.84 0.1.010237.3.579.2.9 1983 Unknown [id number] 2.16.84 0.1.714462.3.579.2.1258 1983 Unknown [id number] 2.16.84 0.1.706935.3.579.2.1258 1983 Unknown [id number] 2.16.84 0.1.414954.3.579.2.1258 1983 Unknown [id number] 2.16.84 0.1.324860.3.579.2.1258 1983 Unknown [id number] 2.16.84 0.1.639103.3.579.2.1258 1983 Unknown [id number] 2.16.84 0.1.247643.3.579.2.1258 1983 Unknown [id number] 2.16.84 0.1.271116.3.579.2.1258 1983 Unknown [id number] 2.16.84 0.1.495157.3.579.2.1258 1983 Unknown [id number] 2.16.84 0.1.381031.3.579.2.1258 1983 Unknown [id number] 2.16.84 0.1.702372.3.579.2.1259 1959 Unknown [id number] Unknown [id number] 2.16.8 40.1.228566.3.579.2.531 Social History Date Type Detail Facility Start: 04-06-2023 End: 08-31-2023 Sex Assigned At [facility] Start: 04-01-2023 End: 11-26-2023 Tobacco smoking status IDIS Never smoked tobacco [facility] Work Phone: Start: 04-01-2023 Tobacco use and exposure Smokeless tobacco non-user [facility] Start: 04-13-2023 End: 05-09-2024 Alcohol intake Lifetime non-drinker (finding) [facility] Start: 04-06-2023 End: 06-25-2024 History of Social function [facility] Within the last year , have you been afraid of your partner or ex-partner? No [facility] Do you belong to any clubs or organizations such as restorationist groups, unions, fraternal or athletic groups, or [...] [OSQ] Very much [facility] (I/We) worried wherani er (my/our) food would run out before (I/we) got money to buy more. DK or Refused [facility] Start: 1985 Sex Assigned At Not on file [facility] Start: 03-31-2023 Gender identity Identifies as female gender (finding) [facility] Start: 1985 Sex Assigned At Female [facility] Tobacco smoking status No Smokin g Status Entered [facility] Medical Equipment Procedure Code Equipment Code Equipment Origin al Text Equipment Identifier Dates KNEE TOTAL ARTHROPLASTY Chan Khan DO 02/21/24 Unknown Knee R FDA Start: 02-21-2024 KNEE TOTAL ARTHROPLASTY Chan Khan DO 02/21/24 Unknown Knee R FDA Start: 02-21-2024 KNEE TOTAL ARTHROPLASTY Chan Khan DO 02/21/24 Unknown Knee R FDA Start: 02-21-2024 KNEE TOTAL ARTHROPLASTY Chan Khan DO 02/21/24 Unknown Knee R FDA Start: 02-21-2024 KNEE TOTAL ARTHROPLASTY Chan Khan DO 02/21/24 Unknown Knee R FDA Start: 02-21-2024 Functional Status Date Assessment Result Facility 01-25-2024 Functional Status No [facility] Clinical Notes 02-26-2023 to 05-09-2024 Elvie Greer NP - 05/09/2024 9:08 AM Denia Greer NP - 05/09/2024 8:40 AM Denia Greer NP - 05/09/2024 6:09 AM Denia Greer NP - 05/09/2024 6:08 AM ESTPatient Instructions Note Date & Type Note Facility 05-09-2024 History of Present illness Narrative Associated Problem(s): Other constipation Water 64 oz daily Add miralax and stool softener Higher fiber foods Fu in 6 weeks to see if better Wilmer Navarro is a 38 y.o. female presents with chief complaint of No chief complaint on file. HPI: GERD She reports no abdominal pain, no chest pain, no coughing, no dysphagia, no hoarse voice, no nausea, no sore throat or no wheezing. This is a chronic problem. The current episode started more than 1 year ago. The problem occurs occasionally. The problem has been unchanged. Associated symptoms include fatigue. Pertinent negatives include no weight loss. Risk factors include obesity and lack of exercise. She has tried a PPI and a histamine-2 antagonist for the symptoms. The treatment provided significant relief. Thyroid Problem Presents for follow-up visit. Symptoms include constipation and fatigue. Patient reports no anxiety, depressed mood, diarrhea, hair loss, hoarse voice, menstrual problem, palpitations, tremors, weight gain or weight loss. The symptoms have been worsening. Depression Visit Type: follow-up Patient presents with the following symptoms: fatigue, irritability (at times) and panic (occ). Patient is not experiencing: anhedonia, decreased concentration, depressed mood, excessive worry, feelings of worthlessness, memory impairment, nervousness/anxiety, palpitations, shortness of breath, suicidal ideas, suicidal planning, weight gain and weight loss. Frequency of symptoms: occasionally Severity: mild Sleep quality: fair Nighttime awakenings: one to two Patient has a history of: asthma Compliance with medications: 76-100% Anxiety Presents for follow-up visit. Symptoms include irritability (at times) and panic (occ). Patient reports no chest pain, decreased concentration, depressed mood, dizziness, excessive worry, nausea, nervous/anxious behavior, palpitations, shortness of breath or suicidal ideas. Symptoms occur occasionally. The severity of symptoms is mild. The quality of sleep is fair. Her past medical history is significant for asthma. Compliance with medications is 76-100%. Asthma There is no chest tightness, cough, difficulty breathing, hoarse voice, shortness of breath, sputum production or wheezing. This is a chronic problem. The current episode started more than 1 year ago. The problem occurs intermittently. The problem has been unchanged. Pertinent negatives include no appetite change, chest pain, ear pain, fever, headaches, myalgias, postnasal drip, rhinorrhea, sneezing, sore throat or weight loss. Her symptoms are aggravated by nothing. Her symptoms are alleviated by beta-agonist, leukotriene antagonist and steroid inhaler. She reports significant improvement on treatment. There are no known risk factors for lung disease. Her past medical history is significant for asthma. Constipation This is a new problem. The current episode started more than 1 month ago. The problem has been gradually worsening since onset. Stool frequency: 1-2 times per week. The stool is described as firm and formed. The patient is not on a high fiber diet. She Does not exercise regularly. There has Not been adequate water intake. Pertinent negatives include no abdominal pain, back pain, diarrhea, difficulty urinating, fecal incontinence, fever, hematochezia, hemorrhoids, nausea, vomiting or weight loss. Risk factors include obesity. She has tried stool softeners for the symptoms. The treatment provided mild relief. SUBJECTIVE: MEDICATIONS: Current Outpatient Medications Medication Instructions albuterol HFA 90 mcg/act inhaler 2 puffs, Inhalation, Every 6 hours PRN budesonide-formoterol (Symbicort) 160-4.5 MCG/ACT inhaler 2 puffs, Inhalation, 2 times daily, Rinse mouth with water after use to reduce aftertaste and incidence of candidiasis. Do not swallow. buPROPion XL (WELLBUTRIN XL) 300 mg, Oral, Every morning calcitriol (ROCALTROL) 0.25 mcg celecoxib (CELEBREX) 200 mg, Daily famotidine (PEPCID) 20 mg, Oral, Nightly hydrOXYzine pamoate (VISTARIL) 25 mg, Oral, Every 8 hours PRN levothyroxine (SYNTHROID, LEVOXYL) 75 mcg, Oral, Daily before breakfast montelukast (SINGULAIR) 10 mg, Oral, Nightly pantoprazole (PROTONIX) 40 mg, Oral, Daily before breakfast, Do not crush, chew, or split. Potassium 99 MG tablet Every 24 hours triamcinolone (Nasacort) 55 MCG/ACT nasal inhaler 2 sprays, Each Nostril, Daily ALLERGIES: Allergies Allergen Reactions Antihistamines, Diphenhydramine-Type Prednisone Diphenhydramine Hives, Itching, Rash and Unknown Latex Hives, Itching, Rash and Unknown REVIEW OF SYMPTOMS: Review of Systems Constitutional: Positive for fatigue and irritability (at times). Negative for appetite change, chills, fever, weight gain and weight loss. HENT: Negative for congestion, ear pain, hoarse voice, postnasal drip, rhinorrhea, sneezing and sore throat. Eyes: Negative for pain, discharge, redness and visual disturbance. Respiratory: Negative for cough, sputum production, shortness of breath and wheezing. Cardiovascular: Negative for chest pain, palpitations and leg swelling. Gastrointestinal: Positive for constipation. Negative for abdominal pain, blood in stool, diarrhea, dysphagia, hematochezia, hemorrhoids, nausea and vomiting. Genitourinary: Negative for difficulty urinating, dysuria, frequency and menstrual problem. Musculoskeletal: Negative for arthralgias, back pain, joint swelling and myalgias. Skin: Negative for rash and wound. Neurological: Negative for dizziness, tremors, seizures, syncope and headaches. Psychiatric/Behavioral: Positive for depression. Negative for behavioral problems, decreased concentration, self-injury and suicidal ideas. The patient is not nervous/anxious. Hematological: Does not bruise/bleed easily. Endocrine: Negative for polydipsia, polyphagia and polyuria. Hot flashes Allergic/Immunologic: Negative for environmental allergies and food allergies. 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[facility]) Morbid obesity with BMI of 50.0-59.9, adult ([facility]) 04/13/2023 Umbilical hernia Past Surgical History: Procedure Laterality Date GALLBLADDER SURGERY Laparoscopic HERNIA REPAIR Umbilical KNEE ARTHROPLASTY Right 02/21/2024 MTP MENISCECTOMY Right 02/28/2020 Dr Garcia OTHER SURGICAL HISTORY 2009 Procedure:NUBAIN & PHENERGAN;Disease:ACUTE CHOLEYCYSTITIS TONSILLECTOMY 05/11/2007 and Adenoidectomy family history includes ADD / ADHD in her brother; Asthma in her mother and sister; Cancer in an other family member; Diabetes in her mother; Lymphoma in an other family member. OBJECTIVE: Visit Vitals BP 118/82 (BP Location: Left arm, Patient Position: Sitting, BP Cuff Size: Large adult) Pulse 91 Temp 98.7 F (Temporal) Resp 19 Ht 5' 6 Wt 298 lb SpO2 97% BMI 48.10 kg/m Smoking Status Never BSA 2.51 m Physical Exam Vitals and nursing note reviewed. Constitutional: General: She is not in acute distress. Appearance: Normal appearance. She is obese. She is not ill-appearing. HENT: Head: Normocephalic and atraumatic. Right Ear: Tympanic membrane, ear canal and external ear normal. Left Ear: Tympanic membrane, ear canal and external ear normal. Nose: Nose normal. No congestion or rhinorrhea. Comments: Pallor/boggy Mouth/Throat: Mouth: Mucous membranes are moist. Pharynx: No oropharyngeal exudate or posterior oropharyngeal erythema. Eyes: Extraocular Movements: Extraocular movements intact. Conjunctiva/sclera: Conjunctivae normal. Neck: Vascular: No carotid bruit. Cardiovascular: Rate and Rhythm: Normal rate and regular rhythm. Pulses: Normal pulses. Heart sounds: Normal heart sounds. Pulmonary: Effort: Pulmonary effort is normal. No respiratory distress. Breath sounds: Normal breath sounds. No wheezing. Abdominal: General: Bowel sounds are normal. There is no distension. Palpations: Abdomen is soft. There is no mass. Tenderness: There is no abdominal tenderness. Hernia: A hernia (ventral right side of abd) is present. Musculoskeletal: General: Normal range of motion. Cervical [...] file. Problem List Items Addressed This Visit Anxiety and depression (CMS/HCC) Current meds: wellbutrin and uses prn vistaril PHQ 9=6 SONYA 7=6 No change in meds Relevant Medications buPROPion XL (Wellbutrin XL) 300 MG 24 hr tablet Other Relevant Orders Comprehensive metabolic panel Elevated glucose In the past, will check a1c Relevant Orders Comprehensive metabolic panel Hemoglobin A1c GERD (gastroesophageal reflux disease) Continue with PPI Recommendations: freq small meals, nothing to eat or drink at least 2 hours prior to bed, limit caffeine, alcohol, as well as spicy foods Meds to limit or avoid if possible: NSAIDS Elevate HOB if possible Current med: pantoprazole, famotidine Relevant Medications famotidine (Pepcid) 20 MG tablet pantoprazole (ProtoNix) 40 MG EC tablet Other Relevant Orders Comprehensive metabolic panel Hypomagnesemia Takes PPI, recommend periodic monitoring Relevant Orders Comprehensive metabolic panel Magnesium Body mass index (BMI) 45.0-49.9, adult (CMS/HCC) Mild persistent asthma without complication ([facility]) - Primary Symbicort for maintenance, signulair, as well as albuterol prn Relevant Orders CBC and differential Morbid (severe) obesity due to excess calories ([facility]) Discussed with patient their BMI (actual, verses recommended). We have also discussed lifestyle modifications: attempts to perform physical activity as chronic conditions allow, also to monitor dietary intake: increasing protein/fruits/veggies and lowering carb intake (unless contraindicated). Limit sodas, juices, and sugary drinks. Was at 326 in 10/29, now down 26 pounds ( has been off recently for TKA), doing KETO diet, does report she feels better Relevant Orders Comprehensive metabolic panel Lipid panel Hypothyroid ([facility]) Current med: levothyroxine Check labs yearly, and prn changes in dose or changes in symptoms Relevant Orders CBC and differential Comprehensive metabolic panel TSH T4, free Other constipation Water 64 oz daily Add miralax and stool softener Higher fiber foods Fu in 6 weeks to see if better Relevant Medications polyethylene glycol, PEG, 3350 (MiraLax) 17 GM/SCOOP powder Other Visit Diagnoses Moderate persistent asthma without complication (CMS/HCC) Relevant Medications budesonide-formoterol (Symbicort) 160-4.5 MCG/ACT inhaler montelukast (Singulair) 10 MG tablet Moderate persistent asthma, uncomplicated (CMS/HCC) Relevant Medications triamcinolone (Nasacort) 55 MCG/ACT nasal inhaler Associated Problem(s): Hypomagnesemia Takes PPI, recommend periodic monitoring Associated Problem(s): Elevated glucose In the past, will check a1c Associated Problem(s): Anxiety and depression (CMS/HCC) Current meds: wellbutrin and uses prn vistaril PHQ 9=6 SONYA 7=6 No change in meds Associated Problem(s): Morbid (severe) obesity due to excess calories (CMS/HCC) Discussed with patient their BMI (actual, verses recommended). We have also discussed lifestyle modifications: attempts to perform physical activity as chronic conditions allow, also to monitor dietary intake: increasing protein/fruits/veggies and lowering carb intake (unless contraindicated). Limit sodas, juices, and sugary drinks. Was at 326 in 10/29, now down 26 pounds ( has been off recently for TKA), doing KETO diet, does report she feels better Associated Problem(s): Hypothyroid (CMS/HCC) Current med: levothyroxine Check labs yearly, and prn changes in dose or changes in symptoms Associated Problem(s): GERD (gastroesophageal reflux disease) Continue with PPI Recommendations: freq small meals, nothing to eat or drink at least 2 hours prior to bed, limit caffeine, alcohol, as well as spicy foods Meds to limit or avoid if possible: NSAIDS Elevate HOB if possible Current med: pantoprazole, famotidine Associated Problem(s): Mild persistent asthma without complication (CMS/[facility]) Symbicort for maintenance, signulair, as well as albuterol prn documented in this encounter [facility] 05-09-2024 Instructions Elvie Greer NP - 05/09/2024 8:40 AM EST Constipation: miralax 17 gm in 4-6 oz of fluids, take this every day. Also you need to be try to get to about 64 oz of water daily, also higher fiber foods as well (green leafy veggies, whole grains), may also include stool softner as well at bed time like colace Thyroid: check labs Hot flashes: talk with andrew documented in this encounter [facility] 05-08-2024 History of Present illness Narrative Images from the original note were not included. Physical Therapy Progress Visit Patient Name: Wilmer Navarro Today's Date: 05/08/2024 Encounter Diagnoses Name Primary? Acute postoperative pain of right knee Yes Status post right knee replacement Aftercare following right knee joint replacement surgery Arthritis of knee, right Presence of right artificial knee joint Primary osteoarthritis of right knee Visit number: 12 (7 in home) Timed Code Treatment: 54 minutes Total Treatment Time: 64 minutes Time In: 1445 Time Out: 1551 History: Underwent surgery for right TKA 02/20/25. Transitioning from home therapy to out patient Precautions: universal Subjective: Pt states little to no soreness following last session. RTW 05/15/24. Pain: 0/10 Objective: at Evaluation Passive ROM: Left knee 10 to 100 degrees. Joint play: hypomobile. Manual muscle testing: Left knee flexion/extension: 3/5. Palpation: Minimal warmth upon palpation, consistent with post-operative conditions. Surgical incision intact with Mepilex dressing which was removed along with shaunna on 03/13/24. Sterile strips placed. Incision healing with no concerns; open to air. Special tests: Negative Yosef Sign. Treatment: Manual Therapy: Passive ROM, Joint mobilization, Soft Tissue Mobilization, Myofascial Release, Muscle Energy Technique Therapeutic Exercise: (27 minutes) guided pt through ther and flex ex per grid to improve right LE quad strength, functional mobility and gait Therapeutic Activity: (27 minutes) Exercises to improve dynamic activities, functional tasks, functional mobility to return to prior activity level as needed Neuromuscular re-education: () Static and dynamic balancing activity using various surfaces, single leg, tandem to improve R LE proprioception, balance and strength Modalities: Heat, Ice, Electrical Stimulation, Ultrasound, Cervical Mechanical Traction, Lumbar Mechanical Traction, Iontophoresis, and Fluidotherapy as needed. Assessment: Pt has completed 19 PT sessions following right TKA. Performed squats with TRX this date to increase functional strength of right LE. Pt able to achieve 125 degrees of right knee flexion with self stretch this date. Right knee extension remains full. Will continue to progress as pt tolerates. Outcome Measure: Lower Extremity Functional Scale (LEFS): 31/80 on 03/15/24, 43/80 on 04/26/24.54 Rehab Diagnosis: right knee pain and weakness; decrease ROM and mobility; difficulty walking Short Term Goal: To be met in 2 weeks Goal 1: Pt to be instructed in home exercise program. 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 Date: documented in this encounter [facility] 05-03-2024 History of Present illness Narrative Images from the original note were not included. Physical Therapy Progress Visit Patient Name: Wilmer Navarro Today's Date: 05/03/2024 Encounter Diagnoses Name Primary? Acute postoperative pain of right knee Yes Status post right knee replacement Aftercare following right knee joint replacement surgery Arthritis of knee, right Visit number: 11 (7 in home) Timed Code Treatment: 54 minutes Total Treatment Time: 54 minutes Time In: 1345 Time Out: 70150 History: Underwent surgery for right TKA 02/20/25. Transitioning from home therapy to out patient Precautions: universal Subjective: Pt states less sore following last session. RTW 05/15/24. Pain: 0/10 Objective: at Evaluation Passive ROM: Left knee 10 to 100 degrees. Joint play: hypomobile. Manual muscle testing: Left knee flexion/extension: 3/5. Palpation: Minimal warmth upon palpation, consistent with post-operative conditions. Surgical incision intact with Mepilex dressing which was removed along with shaunna on 03/13/24. Sterile strips placed. Incision healing with no concerns; open to air. Special tests: Negative Yosef Sign. Treatment: Manual Therapy: Passive ROM, Joint mobilization, Soft Tissue Mobilization, Myofascial Release, Muscle Energy Technique Therapeutic Exercise: (28 minutes) guided pt through ther and flex ex per grid to improve right LE quad strength, functional mobility and gait Therapeutic Activity: (26 minutes) Exercises to improve dynamic activities, functional tasks, functional mobility to return to prior activity level as needed Neuromuscular re-education: () Static and dynamic balancing activity using various surfaces, single leg, tandem to improve R LE proprioception, balance and strength Modalities: Heat, Ice, Electrical Stimulation, Ultrasound, Cervical Mechanical Traction, Lumbar Mechanical Traction, Iontophoresis, and Fluidotherapy as needed. Assessment: LEFS: 43/80 PROM: 0 - 123 MMT: 4/5 knee flex and ext Pt has completed 18 PT sessions following right TKA. Pt able to ascend 12 inch step with right LE and min UE assistance. Fatigue noted following exercises. Will continue to progress as pt tolerates. Outcome Measure: Lower Extremity Functional Scale (LEFS): 31/80 on 03/15/24, 43/80 on 04/26/24.54 Rehab Diagnosis: right knee pain and weakness; decrease ROM and mobility; difficulty walking Short Term Goal: To be met in 2 weeks Goal 1: Pt to be instructed in home exercise program. 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 Date: documented in this encounter [facility] 05-01-2024 History of Present illness Narrative Images from the original note were not included. Physical Therapy Progress Visit Patient Name: Wilmer Navarro Today's Date: 05/01/2024 Encounter Diagnoses Name Primary? Acute postoperative pain of right knee Yes Status post right knee replacement Aftercare following right knee joint replacement surgery Arthritis of knee, right Presence of right artificial knee joint Primary osteoarthritis of right knee Visit number: 10 (7 in home) Timed Code Treatment: 55 minutes Total Treatment Time: 65 minutes Time In: 1055 Time Out: 1200 History: Underwent surgery for right TKA 02/20/25. Transitioning from home therapy to out patient Precautions: universal Subjective: Pt with some soreness reported following last session but able to tolerate. RTW 05/15/24. Pain: 0/10 Objective: at Evaluation Passive ROM: Left knee 10 to 100 degrees. Joint play: hypomobile. Manual muscle testing: Left knee flexion/extension: 3/5. Palpation: Minimal warmth upon palpation, consistent with post-operative conditions. Surgical incision intact with Mepilex dressing which was removed along with shaunna on 03/13/24. Sterile strips placed. Incision healing with no concerns; open to air. Special tests: Negative Yosef Sign. Treatment: Manual Therapy: Passive ROM, Joint mobilization, Soft Tissue Mobilization, Myofascial Release, Muscle Energy Technique Therapeutic Exercise: (29 minutes) guided pt through ther and flex ex per grid to improve right LE quad strength, functional mobility and gait Therapeutic Activity: (26 minutes) Exercises to improve dynamic activities, functional tasks, functional mobility to return to prior activity level as needed Neuromuscular re-education: () Static and dynamic balancing activity using various surfaces, single leg, tandem to improve R LE proprioception, balance and strength Modalities: Heat, Ice, Electrical Stimulation, Ultrasound, Cervical Mechanical Traction, Lumbar Mechanical Traction, Iontophoresis, and Fluidotherapy as needed. Assessment: LEFS: PROM: 0 - 123 MMT: 4/5 knee flex and ext Pt has completed 17 PT sessions following right TKA. Strength right LE continues to improve. Progressions made this date with good berenice. Min cues required during exercises to avoid compensation. Will continue to progress as pt tolerates. Outcome Measure: Lower Extremity Functional Scale (LEFS): 31/80 on 03/15/24, 43/80 on 04/26/24.54 Rehab Diagnosis: right knee pain and weakness; decrease ROM and mobility; difficulty walking Short Term Goal: To be met in 2 weeks Goal 1: Pt to be instructed in home exercise program. 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 Date: documented in this encounter [facility] 04-24-2024 History of Present illness Narrative Physical Therapy Treatment Visit Patient Name: Wilmer Navarro Today's Date: 04/24/2024 Encounter Diagnoses Name Primary? Acute postoperative pain of right knee Yes Status post right knee replacement Difficulty walking Aftercare following right knee joint replacement surgery Arthritis of knee, right Visit number: 8 (7 in home) Timed Code Treatment: 47 minutes Total Treatment Time: 57 minutes Time In: 3:46 PM Time Out: 4:50 PM History: Underwent surgery for right TKA 02/20/25. Transitioning from home therapy to out patient Precautions: universal Subjective: Pt denies pain in right knee. States right LE continues to feel weak vs painful. RTW 05/15/24. Pain: 0/10 Objective: at Evaluation Passive ROM: Left knee 10 to 100 degrees. Joint play: hypomobile. Manual muscle testing: Left knee flexion/extension: 3/5. Palpation: Minimal warmth upon palpation, consistent with post-operative conditions. Surgical incision intact with Mepilex dressing which was removed along with shaunna on 03/13/24. Sterile strips placed. Incision healing with no concerns; open to air. Special tests: Negative Yosef Sign. Treatment: Manual Therapy: Passive ROM, Joint mobilization, Soft Tissue Mobilization, Myofascial Release, Muscle Energy Technique Therapeutic Exercise: (27 minutes) guided pt through ther and flex ex per grid to improve L LE quad strength, functional mobility and gait Bike (10 minutes unsupervised) set to hills level 6 seat to 10 Therapeutic Activity: (20 minutes) Exercises to improve dynamic activities, functional tasks, functional mobility to return to prior activity level as needed Neuromuscular re-education: () Static and dynamic balancing activity using various surfaces, single leg, tandem to improve R LE proprioception, balance and strength Modalities: Heat, Ice, Electrical Stimulation, Ultrasound, Cervical Mechanical Traction, Lumbar Mechanical Traction, Iontophoresis, and Fluidotherapy as needed. Assessment: Pt has completed 15 PT sessions following right TKA. Pt requires moderate UE assist to ascend 12 inch step with right LE, min assistance with 8 inch step. Will continue to progress strength as pt tolerates. Outcome Measure: Lower Extremity Functional Scale (LEFS): 31/80 on 03/15/24 Rehab Diagnosis: right knee pain and weakness; decrease ROM and mobility; difficulty walking Short Term Goal: To be met in 2 weeks Goal 1: Pt to be instructed in home exercise program. Prison Goals: To be met in 10 weeks [...] sign below. Date: documented in this encounter [facility] 04-10-2024 History of Present illness Narrative Images [...] to be instructed in home exercise program. 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 Date: documented in this encounter [facility] 04-03-2024 History of Present illness Narrative Images [...] to be instructed in home exercise program. 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 Date: documented in this encounter [facility] 03-23-2024 History of Present illness Narrative Post [...] three months for repeat x-ray and exam. long-term antibiotic prophylaxis for dental or invasive work were reviewed. Numerous questions were answered. The patient is discharged in stable condition. documented in this encounter [facility] 03-13-2024 History of Present illness Narrative Physical [...] out: 11:20 am Total time: 20 minutes [id number] gait training x 20 minutes Precautions: WBAT [...] Heels close together = 1. Gait score: 10/12. Total Score = Balance + Gait . [...] AD with supervision, step to gait pattern. Prison Goals Goal 1 : Patient will demonstrate [...] to transition to OP on 03/15/24 at [facility]. documented in this encounter [facility] 03-10-2024 History of Present illness Narrative Physical [...] out: 1:30 pm Total time: 30 minutes [id number] TherEx x 20 minutes [id number] gait training x 10 minutes Precautions: WBAT [...] Assessment & Plan Pt making steady gains. Linch to be removed on 03/13/24. Pt will [...] AD with supervision, step to gait pattern. Prison Goals Goal 1 : Patient will demonstrate [...] icing and elevating. documented in this encounter [facility] 03-06-2024 History of Present illness Narrative Physical [...] out: 12:38 pm Total time: 38 minutes [id number] TherEx x 30 minutes [id number] gait training x 10 minutes Precautions: WBAT Right LE; Right TKA protocol; Recent left TKA Pain Management: The patient is complaining of pain located in the Righ knee and thigh region. Pain rating 4/10. The pain is improved by ice and medication 1 every 6 hours of Clyo. The pain is aggravated by activity. 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 Assessment Impairments: abnormal gait, abnormal or restricted [...] AD with supervision, step to gait pattern. Customer Experience Retail Clerk Goals Goal 1 : Patient will demonstrate [...] icing and elevating. documented in this encounter [facility] 03-02-2024 History of Present illness Narrative Physical [...] out: 2:00 pm Total time: 40 minutes 56832 TherEx x 30 minutes 12597 gait training x 10 minutes Precautions: WBAT Right LE; Right TKA protocol; Recent left TKA Pain Management: The patient is complaining of pain located in the Righ knee and thigh region. Pain rating 4/10. The pain is improved by ice and medication 1 every 6 hours of Clyo. The pain is aggravated by activity. The [...] AD with supervision, step to gait pattern. Prison Goals Goal 1 : Patient will demonstrate [...] icing and elevating. documented in this encounter [facility] 02-28-2024 History of Present illness Narrative Physical [...] out: 10:37 am Total time: 38 minutes 97353 TherEx x 30 minutes 17824 gait training x 8 minutes Precautions: WBAT Right LE; Right TKA protocol; Recent left TKA Pain Management: The patient is complaining of pain located in the Righ knee and thigh region. Pain rating 4/10. The pain is improved by ice and medication 1-2 every 4 hours of Clyo. The pain is aggravated by activity. The [...] AD with supervision, step to gait pattern. Prison Goals Goal 1 : Patient will demonstrate [...] icing and elevating. documented in this encounter [facility] 02-24-2024 History of Present illness Narrative Physical [...] out: 11:00 am Total time: 30 minutes 93769 TherEx x 15 minutes 79482 gait training x 15 minutes Precautions: WBAT Right LE; Right TKA protocol; Recent left TKA Pain Management: The patient is complaining of pain located in the Righ knee and thigh region. Pain rating 4/10. The pain is improved by ice and medication 1 every 4 hours of Clyo. The pain is aggravated by activity. The [...] time: Heels apart = 0. Gait score: 5/12. Total Score = Balance + Gait 28. Tinetti tool score: < = 18 High. [...] AD with supervision, step to gait pattern. Prison Goals Goal 1 : Patient will demonstrate [...] icing and elevating. documented in this encounter [facility] 02-23-2024 Note Progress Note-Physic barbra Patient: WILMER NAVARRO Age: 38 years Sex: Female : 1985 Associated Diagnoses: None Author: Paul Gupta Jr, DO Postoperative Information Postoperative disposition: Postoperative disposition: To PACU. Optimetrix number: Optimetrix number [id number]. Anesthetic utilized: General. Regional: Spinal. Health Status [...] when meets criteria ( To home ). [facility] Comment on above: Result Comment: Elec tronically Signed By: Paul Gupta Jr, DO\.br\Date and Time Signed: 02/23/24 09:53 EST 02-23-2024 Note Progress Note-Physic barbra Patient: WILMER [...] list: All Problems Hypothyroid / SNOMED CT 38573045 / Confirmed Depression / SNOMED CT 77387935 / Confirmed Resolved: Syncope / SNOMED CT 649740105 Resolved: GERD - Gastro-esophageal reflux disease / SNOMED CT 1744860273 Resolved: Asthma / SNOMED CT 377903047 Histories Procedure history: History of hernia repair (9073986945). History of hernia repair (2063159790). Cholecystectomy (29683177). Social History Social & Psychosocial Habits Alcohol 01/25/2024 Risk Assessment: Denies Alcohol Use Substance Abuse 01/25/2024 Risk Assessment: Denies Substance Abuse Tobacco 01/25/2024 Risk Assessment: Denies Tobacco Use . Physical Examination Airway: Mallampati classification: II (soft palate, fauces, uvula visible). Respiratory: adequate air exchange. Cardiovascular: Regular rhythm. Plan [place] [employer] Anesthesiologists (ASA) physical status classification: Class IV. Anesthetic Preoperative Plan: Anesthesia General. [facility] Comment on above: Result Comment: Elec tronically Signed By: Paul Gupta Jr, DO\.br\Date and Time Signed: 02/23/24 09:49 EST 02-22-2024 [...] out: 11:15 am Total time: 45 minutes 17235 PT Eval x 20 minutes 86813 TherEx x 15 minutes 96764 gait training x 10 minutes Precautions: WBAT [...] a smooth motion = 1. Balance Score: 16. Indication of gait: No hesitancy = 1. [...] AD with supervision, step to gait pattern. Customer Experience Retail Clerk Goals Goal 1 : Patient will demonstrate [...] to achieve PLOF. documented in this encounter [facility] 02-21-2024 Hospital Discharge instructions Patient Education 02/21/2024 [...] as possible. If the spirometer includes a etiquette coach indicator, use this to guide you [...] provider. Document Revised: 05/13/2020 Document Reviewed: 05/13/2020 [employer] Patient Education 2023 [employer]. 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 It is therefore advised not to drive until after your first office visit following surgery FOLLOW-UP OFFICE VISIT: ____ Cahn Khan, DO [facility] [address] [place] [address] Reviewed: 4-08 Follow Up Care 01/13/2024 16:25:51 With:GUILLERMO Villarreal Address: [address] [place] [address] Business (1) When:03/23/2024 15:00:00 Comments:Keep scheduled appointment [facility] 02-21-2024 Note Patient Education - Text Pulmonary [...] possible. ??? If the spirometer includes a etiquette coach indicator, use this to guide you [...] provider. Document Revised: 05/13/2020 Document Reviewed: 05/13/2020 [employer] Patient Education ? 2023 [employer]. [place], [place] [facility] DISCHARGE INSTRUCTIONS TOTAL KNEE ARTHROPLASTY INCISION CARE: Mepilex dressing can get wet with showers. Please remove 10 days after surgery per instruction sheet. If shaunna present, please coordinate removal 21 days after surgery with office (more content not included)... 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 It is therefore advised not to drive until after your first office visit following surgery FOLLOW-UP OFFICE VISIT: ____ Chan Khan, DO [facility] [address] [place] [address] Reviewed: 06-13 [facility] 02-08-2024 History of Present illness Narrative Associated Problem(s): Psoriasis (CMS/HCC) Needs refill of triamcinolone 0.1% ointment, also saw Rheumatology, considering treatment in the future documented in this encounter [facility] 02-08-2024 History of Present illness Narrative Associated [...] thyroid function test COVID-19 virus detected Depression ([facility]) 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[facility]) Morbid obesity with BMI of 50.0-59.9, adult ([facility]) 04/13/2023 Umbilical hernia Past Surgical History: Procedure [...] TKA right knee, 02/21/24 Anxiety and depression (CMS/HCC) - Primary Currently taking buproprion XL, vistaril [...] obesity with BMI of 50.0-59.9, adult (CMS/HCC) 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CMS/HCC) Currently taking levo at [...] Associated Problem(s): Mild persistent asthma without complication (CMS/[facility]) Symbicort for maintenance, signulair, as well as albuterol prn Is UTD on flu shot as well documented in this encounter [facility] 02-08-2024 Instructions Elvie Greer NP - 02/08/2024 8:40 AM EST Continue with weight loss journey you are doing great!!! No dose changes in meds No labs due at this time documented in this encounter [facility] 01-13-2024 History of Present illness Narrative Images [...] of months ago with a provider in [place]. She was instructed on weight loss. 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[facility]) Morbid obesity with BMI of 50.0-59.9, adult ([facility]) 04/13/2023 Umbilical hernia Past Surgical History: Procedure [...] for evaluation as well Anxiety and depression ([facility]/HCC) Doing well on current meds Relevant Medications buPROPion XL (Wellbutrin XL) 300 MG 24 hr tablet GERD (gastroesophageal reflux disease) Relevant Medications famotidine (Pepcid) 20 MG tablet pantoprazole (Protonix) 40 MG EC tablet Moderate persistent asthma without complication ([facility]/HCC) Relevant Medications budesonide-formoterol (Symbicort) 160-4.5 MCG/ACT inhaler montelukast (Singulair) 10 MG tablet Psoriasis ([facility]) Will send to Rheumatology for evaluation for psoriatic arthritis Relevant Orders Ambulatory referral to Rheumatology Morbid obesity with BMI of 50.0-59.9, adult (CMS/HCC) Doing well 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CMS/HCC) - Primary Bump up dose thyroid to 75mcg Recheck labs in 8 weeks Relevant Medications levothyroxine (Synthroid) 75 MCG tablet Other Relevant Orders TSH T4, free documented in this encounter [facility] 04-22-2023 History of Present illness Narrative Images [...] Oral montelukast (SINGULAIR) 10 mg, Oral, Nightly Constable-3 Fatty Acids (Fish Oil) 1000 MG capsule [...] develop for requiring urgent evaluation. 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 They need it verified. You wrote a quanity of 15 days but the directions say 1 tablet PO for 10 days [facility] 04-14-2023 Miscellaneous Notes jeannie from [employer] calling about pt's traMADol (Ultram) 50 MG tablet. They need it verified. You wrote a quanity of 15 days but the directions say 1 tablet PO for 10 days documented in this encounter [facility] 02-26-2023 Evaluation note Encounter Date Diagnosis Assessment [...] PCP if no improvement in 2-3 days. [employer] Other Evaluation + Plan note Future Appointments Appointment Date:02/21/2024 11:15:00 AM Scheduled Provider: Location:[facility] Surgical Services Appointment Type:Surgery FT [facility] Evaluation note* Diagnosis Chronic pain of right knee documented in this encounter [facility] HealthcareEvaluation note* Diagnosis Primary osteoarthritis of right knee- Primary Right knee pain, unspecified chronicity documented in this encounter [facility] HealthcareEvaluation noteNo assessment information availableM[facility] Work Phone: Evaluation note* Diagnosis Onset Date Resolution Status Cellulitis of arm, left acut e [facility] Work Phone: Evaluzipcc note* Diagnosis Anxiety and depression (CMS/HCC)- Primary [...] Primary Chronic lymphocytic thyroiditis Anxiety and depression (CMS/HCC) Morbid obesity with BMI of 50.0-59.9, adult (CMS/HCC) Arthritis of knee, right Cellulitis of lower extremity, unspecified laterality- Primary Moderate persistent asthma without complication (CMS/HCC) Ventral hernia without obstruction or gangrene Unspecified ventral hernia without mention of obstruction or gangrene Gastroesophageal reflux disease, unspecified whether esophagitis present Morbid obesity with BMI of 50.0-59.9, adult ([facility]) 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[facility]/HCC) Chronic lymphocytic thyroiditis Anxiety and depression ([facility]) Gastroesophageal reflux disease, unspecified whether esophagitis present- Primary 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CMS/HCC) Chronic lymphocytic thyroiditis Moderate persistent asthma without complication (CMS/HCC) Morbid obesity with BMI of 50.0-59.9, adult ([facility]) Arthritis of knee, right 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[facility]/HCC)- Primary Chronic lymphocytic thyroiditis Morbid obesity with BMI of 50.0-59.9, adult ([facility]) Psoriasis ([facility]) Other psoriasis Anxiety and depression ([facility]) Gastroesophageal reflux disease, unspecified whether esophagitis present Moderate persistent asthma without complication ([facility]) Arthritis of knee, right Anxiety and depression ([facility]) 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[facility]) Chronic lymphocytic thyroiditis documented in this encounter [facility] HealthcareEvaluation note* Diagnosis Anxiety and depression ([facility]/HCC)- Primary Elevated glucose Other abnormal glucose Hypomagnesemia Disorders of magnesium metabolism Gastroesophageal reflux disease, unspecified whether esophagitis present Morbid obesity with BMI of 50.0-59.9, adult ([facility]) Moderate persistent asthma without complication ([facility]) Chronic pain of right knee Anxiety and depression ([facility])- Primary Abnormal TSH Chronic pain of right knee Non-recurrent acute suppurative otitis media of left ear without spontaneous rupture of tympanic membrane 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[facility]/HCC)- Primary Chronic lymphocytic thyroiditis Anxiety and depression ([facility]) Morbid obesity with BMI of 50.0-59.9, adult ([facility]) Arthritis of knee, right Cellulitis of lower extremity, unspecified laterality- Primary Moderate persistent asthma without complication ([facility]/HCC) Ventral hernia without obstruction or gangrene Unspecified ventral hernia without mention of obstruction or gangrene Gastroesophageal reflux disease, unspecified whether esophagitis present Morbid obesity with BMI of 50.0-59.9, adult ([facility]) 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[facility]/HCC) Chronic lymphocytic thyroiditis Anxiety and depression ([facility]) Gastroesophageal reflux disease, unspecified whether esophagitis present- Primary 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[facility]/HCC) Chronic lymphocytic thyroiditis Moderate persistent asthma without complication ([facility]) Morbid obesity with BMI of 50.0-59.9, adult ([facility]) Arthritis of knee, right 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[facility])- Primary Chronic lymphocytic thyroiditis Morbid obesity with BMI of 50.0-59.9, adult ([facility]) Psoriasis ([facility]) Other psoriasis Anxiety and depression ([facility]) Gastroesophageal reflux disease, unspecified whether esophagitis present Moderate persistent asthma without complication (CMS/[facility]) Arthritis of knee, right Pre-op testing- Primary Unspecified pre-operative examination documented in this encounter [facility] HealthcareEvaluation note* Diagnosis Anxiety and depression ([facility])- Primary Elevated glucose Other abnormal glucose Hypomagnesemia Disorders of magnesium metabolism Gastroesophageal reflux disease, unspecified whether esophagitis present Morbid obesity with BMI of 50.0-59.9, adult ([facility]) Moderate persistent asthma without complication ([facility]) Chronic pain of right knee Anxiety and depression ([facility])- Primary Abnormal TSH Chronic pain of right knee Non-recurrent acute suppurative otitis media of left ear without spontaneous rupture of tympanic membrane 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[facility])- Primary Chronic lymphocytic thyroiditis Anxiety and depression ([facility]) Morbid obesity with BMI of 50.0-59.9, adult ([facility]) Arthritis of knee, right Cellulitis of lower extremity, unspecified laterality- Primary Moderate persistent asthma without complication ([facility]) Ventral hernia without obstruction or gangrene Unspecified ventral hernia without mention of obstruction or gangrene Gastroesophageal reflux disease, unspecified whether esophagitis present Morbid obesity with BMI of 50.0-59.9, adult ([facility]) 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[facility]) Chronic lymphocytic thyroiditis Anxiety and depression ([facility]) Gastroesophageal reflux disease, unspecified whether esophagitis present- Primary 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[facility]) Chronic lymphocytic thyroiditis Moderate persistent asthma without complication ([facility]) Morbid obesity with BMI of 50.0-59.9, adult ([facility]) Arthritis of knee, right 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[facility])- Primary Chronic lymphocytic thyroiditis Morbid obesity with BMI of 50.0-59.9, adult ([facility]/HCC) Psoriasis (CMS/HCC) Other psoriasis Anxiety and depression (CMS/HCC) Gastroesophageal reflux disease, unspecified whether esophagitis present Moderate persistent asthma without complication (CMS/HCC) Arthritis of knee, right Anxiety and depression (CMS/HCC)- Primary Mild persistent asthma without complication (CMS/HCC) Gastroesophageal reflux disease, unspecified whether esophagitis present Morbid obesity with BMI of 50.0-59.9, adult ([facility]) 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CMS/HCC) Chronic lymphocytic thyroiditis Morbid obesity due to excess calories (CMS/HCC) Moderate persistent asthma without complication ([facility]) Encounter for screening mammogram for malignant neoplasm of breast Arthritis of knee, right Psoriasis ([facility])- Primary Other psoriasis documented in this encounter [facility]* Diagnosis Anxiety and depression ([facility])- Primary Elevated glucose Other abnormal glucose Hypomagnesemia Disorders of magnesium metabolism Gastroesophageal reflux disease, unspecified whether esophagitis present Morbid obesity with BMI of 50.0-59.9, adult ([facility]) Moderate persistent asthma without complication (CMS/HCC) Chronic pain of right knee Anxiety and depression (CMS/[facility])- Primary Abnormal TSH Chronic pain of right knee Non-recurrent acute suppurative otitis media of left ear without spontaneous rupture of tympanic membrane 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[facility]/HCC)- Primary Chronic lymphocytic thyroiditis Anxiety and depression ([facility]) Morbid obesity with BMI of 50.0-59.9, adult ([facility]) Arthritis of knee, right Cellulitis of lower extremity, unspecified laterality- Primary Moderate persistent asthma without complication (CMS/HCC) Ventral hernia without obstruction or gangrene Unspecified ventral hernia without mention of obstruction or gangrene Gastroesophageal reflux disease, unspecified whether esophagitis present Morbid obesity with BMI of 50.0-59.9, adult ([facility]) 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[facility]) Chronic lymphocytic thyroiditis Anxiety and depression ([facility]) Gastroesophageal reflux disease, unspecified whether esophagitis present- Primary 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CMS/HCC) Chronic lymphocytic thyroiditis Moderate persistent asthma without complication ([facility]/HCC) Morbid obesity with BMI of 50.0-59.9, adult ([facility]) Arthritis of knee, right 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[facility])- Primary Chronic lymphocytic thyroiditis Morbid obesity with BMI of 50.0-59.9, adult ([facility]) Psoriasis ([facility]) Other psoriasis Anxiety and depression ([facility]) Gastroesophageal reflux disease, unspecified whether esophagitis present Moderate persistent asthma without complication (CMS/HCC) Arthritis of knee, right Anxiety and depression ([facility])- Primary Mild persistent asthma without complication (CMS/[facility]) Gastroesophageal reflux disease, unspecified whether esophagitis present Morbid obesity with BMI of 50.0-59.9, adult ([facility]) 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[facility]) Chronic lymphocytic thyroiditis Morbid obesity due to excess calories (CMS/[facility]) Moderate persistent asthma without complication ([facility]) Encounter for screening mammogram for malignant neoplasm of breast Arthritis of knee, right documented in this encounter [facility]* Diagnosis Anxiety and depression ([facility])- Primary Elevated glucose Other abnormal glucose Hypomagnesemia Disorders of magnesium metabolism Gastroesophageal reflux disease, unspecified whether esophagitis present Morbid obesity with BMI of 50.0-59.9, adult ([facility]) Moderate persistent asthma without complication ([facility]) Chronic pain of right knee Anxiety and depression ([facility])- Primary Abnormal TSH Chronic pain of right knee Non-recurrent acute suppurative otitis media of left ear without spontaneous rupture of tympanic membrane 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[facility])- Primary Chronic lymphocytic thyroiditis Anxiety and depression ([facility]) Morbid obesity with BMI of 50.0-59.9, adult ([facility]) Arthritis of knee, right Cellulitis of lower extremity, unspecified laterality- Primary Moderate persistent asthma without complication ([facility]) Ventral hernia without obstruction or gangrene Unspecified ventral hernia without mention of obstruction or gangrene Gastroesophageal reflux disease, unspecified whether esophagitis present Morbid obesity with BMI of 50.0-59.9, adult ([facility]) 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[facility]) Chronic lymphocytic thyroiditis Anxiety and depression ([facility]) Gastroesophageal reflux disease, unspecified whether esophagitis present- Primary 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[facility]) Chronic lymphocytic thyroiditis Moderate persistent asthma without complication ([facility]) Morbid obesity with BMI of 50.0-59.9, adult ([facility]) Arthritis of knee, right 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[facility])- Primary Chronic lymphocytic thyroiditis Morbid obesity with BMI of 50.0-59.9, adult ([facility]/HCC) Psoriasis (CMS/HCC) Other psoriasis Anxiety and depression (CMS/HCC) Gastroesophageal reflux disease, unspecified whether esophagitis present Moderate persistent asthma without complication (CMS/HCC) Arthritis of knee, right Anxiety and depression (CMS/HCC)- Primary Mild persistent asthma without complication (CMS/HCC) Gastroesophageal reflux disease, unspecified whether esophagitis present Morbid obesity with BMI of 50.0-59.9, adult ([facility]) 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CMS/HCC) Chronic lymphocytic thyroiditis Morbid obesity due to excess calories (CMS/HCC) Moderate persistent asthma without complication ([facility]) Encounter for screening mammogram for malignant neoplasm of breast Arthritis of knee, right Psoriasis (CMS/[facility])- Primary Other psoriasis Primary osteoarthritis of right knee- Primary documented in this encounter [facility]* Diagnosis Anxiety and depression ([facility])- Primary Elevated glucose Other abnormal glucose Hypomagnesemia Disorders of magnesium metabolism Gastroesophageal reflux disease, unspecified whether esophagitis present Morbid obesity with BMI of 50.0-59.9, adult ([facility]) Moderate persistent asthma without complication (CMS/HCC) Chronic pain of right knee Anxiety and depression (CMS/[facility])- Primary Abnormal TSH Chronic pain of right knee Non-recurrent acute suppurative otitis media of left ear without spontaneous rupture of tympanic membrane 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[facility])- Primary Chronic lymphocytic thyroiditis Anxiety and depression ([facility]) Morbid obesity with BMI of 50.0-59.9, adult ([facility]) Arthritis of knee, right Cellulitis of lower extremity, unspecified laterality- Primary Moderate persistent asthma without complication (CMS/HCC) Ventral hernia without obstruction or gangrene Unspecified ventral hernia without mention of obstruction or gangrene Gastroesophageal reflux disease, unspecified whether esophagitis present Morbid obesity with BMI of 50.0-59.9, adult ([facility]) 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[facility]) Chronic lymphocytic thyroiditis Anxiety and depression ([facility]) Gastroesophageal reflux disease, unspecified whether esophagitis present- Primary 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CMS/HCC) Chronic lymphocytic thyroiditis Moderate persistent asthma without complication (CMS/HCC) Morbid obesity with BMI of 50.0-59.9, adult ([facility]) Arthritis of knee, right 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[facility]/HCC)- Primary Chronic lymphocytic thyroiditis Morbid obesity with BMI of 50.0-59.9, adult ([facility]) Psoriasis ([facility]) Other psoriasis Anxiety and depression ([facility]) Gastroesophageal reflux disease, unspecified whether esophagitis present Moderate persistent asthma without complication ([facility]) Arthritis of knee, right Anxiety and depression ([facility])- Primary Mild persistent asthma without complication ([facility]) Gastroesophageal reflux disease, unspecified whether esophagitis present Morbid obesity with BMI of 50.0-59.9, adult ([facility]) 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[facility] Chronic lymphocytic thyroiditis Morbid obesity due to excess calories ([facility]) Moderate persistent asthma without complication ([facility]) Encounter for screening mammogram for malignant neoplasm of breast Arthritis of knee, right Psoriasis ([facility])- Primary Other psoriasis Arthritis of knee, right- Primary Acute postoperative pain of right knee Status post right knee replacement Difficulty walking Difficulty in walking documented in this encounter [facility]* Diagnosis 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[facility])- Primary Chronic lymphocytic thyroiditis Morbid obesity with BMI of 50.0-59.9, adult ([facility]) Psoriasis ([facility]) Other psoriasis Anxiety and depression ([facility]) Gastroesophageal reflux disease, unspecified whether esophagitis present Moderate persistent asthma without complication ([facility]) Arthritis of knee, right documented in this encounter [facility]* Diagnosis Gastroesophageal reflux disease, unspecified whether esophagitis present documented in this encounter [facility]* Diagnosis Anxiety and depression ([facility])- Primary Elevated glucose Other abnormal glucose Hypomagnesemia Disorders of magnesium metabolism Gastroesophageal reflux disease, unspecified whether esophagitis present Morbid obesity with BMI of 50.0-59.9, adult ([facility]) Moderate persistent asthma without complication ([facility]) Chronic pain of right knee Anxiety and depression ([facility])- Primary Abnormal TSH Chronic pain of right knee Non-recurrent acute suppurative otitis media of left ear without spontaneous rupture of tympanic membrane 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[facility])- Primary Chronic lymphocytic thyroiditis Anxiety and depression ([facility]) Morbid obesity with BMI of 50.0-59.9, adult ([facility]) Arthritis of knee, right Cellulitis of lower extremity, unspecified laterality- Primary Moderate persistent asthma without complication ([facility]/HCC) Ventral hernia without obstruction or gangrene Unspecified ventral hernia without mention of obstruction or gangrene Gastroesophageal reflux disease, unspecified whether esophagitis present Morbid obesity with BMI of 50.0-59.9, adult ([facility]) 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[facility]) Chronic lymphocytic thyroiditis Anxiety and depression ([facility]) Gastroesophageal reflux disease, unspecified whether esophagitis present- Primary 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[facility]) Chronic lymphocytic thyroiditis Moderate persistent asthma without complication ([facility]) Morbid obesity with BMI of 50.0-59.9, adult ([facility]) Arthritis of knee, right 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[facility])- Primary Chronic lymphocytic thyroiditis Morbid obesity with BMI of 50.0-59.9, adult ([facility]) Psoriasis ([facility]) Other psoriasis Anxiety and depression ([facility]) Gastroesophageal reflux disease, unspecified whether esophagitis present Moderate persistent asthma without complication ([facility]) Arthritis of knee, right Anxiety and depression ([facility])- Primary Mild persistent asthma without complication ([facility]) Gastroesophageal reflux disease, unspecified whether esophagitis present Morbid obesity with BMI of 50.0-59.9, adult ([facility]) 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[facility]) Chronic lymphocytic thyroiditis Morbid obesity due to excess calories ([facility]) Moderate persistent asthma without complication ([facility]) Encounter for screening mammogram for malignant neoplasm of breast Arthritis of knee, right Psoriasis ([facility])- Primary Other psoriasis Arthritis of knee, right- Primary Acute postoperative pain of right knee Status post right knee replacement Difficulty walking Difficulty in walking documented in this encounter [facility] HealthcareEvaluation note* Diagnosis Anxiety and depression ([facility])- Primary Elevated glucose Other abnormal glucose Hypomagnesemia Disorders of magnesium metabolism Gastroesophageal reflux disease, unspecified whether esophagitis present Morbid obesity with BMI of 50.0-59.9, adult ([facility]) Moderate persistent asthma without complication ([facility]) Chronic pain of right knee Anxiety and depression ([facility])- Primary Abnormal TSH Chronic pain of right knee Non-recurrent acute suppurative otitis media of left ear without spontaneous rupture of tympanic membrane 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[facility])- Primary Chronic lymphocytic thyroiditis Anxiety and depression ([facility]) Morbid obesity with BMI of 50.0-59.9, adult ([facility]) Arthritis of knee, right Cellulitis of lower extremity, unspecified laterality- Primary Moderate persistent asthma without complication ([facility]) Ventral hernia without obstruction or gangrene Unspecified ventral hernia without mention of obstruction or gangrene Gastroesophageal reflux disease, unspecified whether esophagitis present Morbid obesity with BMI of 50.0-59.9, adult ([facility]) 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[facility]) Chronic lymphocytic thyroiditis Anxiety and depression ([facility]) Gastroesophageal reflux disease, unspecified whether esophagitis present- Primary 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[facility]) Chronic lymphocytic thyroiditis Moderate persistent asthma without complication ([facility]) Morbid obesity with BMI of 50.0-59.9, adult ([facility]) Arthritis of knee, right 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[facility])- Primary Chronic lymphocytic thyroiditis Morbid obesity with BMI of 50.0-59.9, adult ([facility]) Psoriasis ([facility]) Other psoriasis Anxiety and depression ([facility]) Gastroesophageal reflux disease, unspecified whether esophagitis present Moderate persistent asthma without complication ([facility]) Arthritis of knee, right Anxiety and depression ([facility])- Primary Mild persistent asthma without complication ([facility]) Gastroesophageal reflux disease, unspecified whether esophagitis present Morbid obesity with BMI of 50.0-59.9, adult ([facility]) 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[facility]) Chronic lymphocytic thyroiditis Morbid obesity due to excess calories ([facility]) Moderate persistent asthma without complication ([facility]) Encounter for screening mammogram for malignant neoplasm of breast Arthritis of knee, right Psoriasis ([facility])- Primary Other psoriasis Arthritis of knee, right- Primary Acute postoperative pain of right knee Status post right knee replacement Difficulty walking Difficulty in walking documented in this encounter [facility]* Diagnosis Anxiety and depression ([facility])- Primary Elevated glucose Other abnormal glucose Hypomagnesemia Disorders of magnesium metabolism Gastroesophageal reflux disease, unspecified whether esophagitis present Morbid obesity with BMI of 50.0-59.9, adult ([facility]) Moderate persistent asthma without complication ([facility] Chronic pain of right knee Anxiety and depression ([facility])- Primary Abnormal TSH Chronic pain of right knee Non-recurrent acute suppurative otitis media of left ear without spontaneous rupture of tympanic membrane 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[facility]/HCC)- Primary Chronic lymphocytic thyroiditis Anxiety and depression ([facility]) Morbid obesity with BMI of 50.0-59.9, adult ([facility]) Arthritis of knee, right Cellulitis of lower extremity, unspecified laterality- Primary Moderate persistent asthma without complication (CMS/[facility]) Ventral hernia without obstruction or gangrene Unspecified ventral hernia without mention of obstruction or gangrene Gastroesophageal reflux disease, unspecified whether esophagitis present Morbid obesity with BMI of 50.0-59.9, adult ([facility]) 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[facility]) Chronic lymphocytic thyroiditis Anxiety and depression ([facility]) Gastroesophageal reflux disease, unspecified whether esophagitis present- Primary 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[facility]) Chronic lymphocytic thyroiditis Moderate persistent asthma without complication ([facility]) Morbid obesity with BMI of 50.0-59.9, adult ([facility]) Arthritis of knee, right 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[facility])- Primary Chronic lymphocytic thyroiditis Morbid obesity with BMI of 50.0-59.9, adult ([facility]) Psoriasis ([facility]) Other psoriasis Anxiety and depression ([facility]) Gastroesophageal reflux disease, unspecified whether esophagitis present Moderate persistent asthma without complication ([facility]) Arthritis of knee, right Anxiety and depression ([facility]/HCC)- Primary Mild persistent asthma without complication ([facility]) Gastroesophageal reflux disease, unspecified whether esophagitis present Morbid obesity with BMI of 50.0-59.9, adult ([facility]) 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[facility]) Chronic lymphocytic thyroiditis Morbid obesity due to excess calories ([facility]) Moderate persistent asthma without complication ([facility]) Encounter for screening mammogram for malignant neoplasm of breast Arthritis of knee, right Psoriasis ([facility])- Primary Other psoriasis Arthritis of knee, right- Primary Acute postoperative pain of right knee Status post right knee replacement Difficulty walking Difficulty in walking documented in this encounter [facility]* Diagnosis Anxiety and depression ([facility])- Primary Elevated glucose Other abnormal glucose Hypomagnesemia Disorders of magnesium metabolism Gastroesophageal reflux disease, unspecified whether esophagitis present Morbid obesity with BMI of 50.0-59.9, adult ([facility]) Moderate persistent asthma without complication ([facility] Chronic pain of right knee Anxiety and depression ([facility])- Primary Abnormal TSH Chronic pain of right knee Non-recurrent acute suppurative otitis media of left ear without spontaneous rupture of tympanic membrane 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[facility])- Primary Chronic lymphocytic thyroiditis Anxiety and depression ([facility]) Morbid obesity with BMI of 50.0-59.9, adult ([facility]) Arthritis of knee, right Cellulitis of lower extremity, unspecified laterality- Primary Moderate persistent asthma without complication ([facility]) Ventral hernia without obstruction or gangrene Unspecified ventral hernia without mention of obstruction or gangrene Gastroesophageal reflux disease, unspecified whether esophagitis present Morbid obesity with BMI of 50.0-59.9, adult ([facility]) 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[facility]) Chronic lymphocytic thyroiditis Anxiety and depression ([facility]) Gastroesophageal reflux disease, unspecified whether esophagitis present- Primary 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[facility]) Chronic lymphocytic thyroiditis Moderate persistent asthma without complication ([facility]) Morbid obesity with BMI of 50.0-59.9, adult ([facility]) Arthritis of knee, right 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[facility])- Primary Chronic lymphocytic thyroiditis Morbid obesity with BMI of 50.0-59.9, adult ([facility]) Psoriasis ([facility]) Other psoriasis Anxiety and depression ([facility]) Gastroesophageal reflux disease, unspecified whether esophagitis present Moderate persistent asthma without complication ([facility]) Arthritis of knee, right Anxiety and depression ([facility])- Primary Mild persistent asthma without complication ([facility]) Gastroesophageal reflux disease, unspecified whether esophagitis present Morbid obesity with BMI of 50.0-59.9, adult ([facility]) 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[facility]) Chronic lymphocytic thyroiditis Morbid obesity due to excess calories ([facility]) Moderate persistent asthma without complication ([facility]) Encounter for screening mammogram for malignant neoplasm of breast Arthritis of knee, right Psoriasis ([facility])- Primary Other psoriasis Arthritis of knee, right- Primary Acute postoperative pain of right knee Status post right knee replacement Difficulty walking Difficulty in walking documented in this encounter [facility]* Diagnosis Anxiety and depression ([facility])- Primary Elevated glucose Other abnormal glucose Hypomagnesemia Disorders of magnesium metabolism Gastroesophageal reflux disease, unspecified whether esophagitis present Morbid obesity with BMI of 50.0-59.9, adult ([facility]) Moderate persistent asthma without complication ([facility]) Chronic pain of right knee Anxiety and depression ([facility])- Primary Abnormal TSH Chronic pain of right knee Non-recurrent acute suppurative otitis media of left ear without spontaneous rupture of tympanic membrane 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[facility])- Primary Chronic lymphocytic thyroiditis Anxiety and depression ([facility]) Morbid obesity with BMI of 50.0-59.9, adult ([facility]) Arthritis of knee, right Cellulitis of lower extremity, unspecified laterality- Primary Moderate persistent asthma without complication ([facility]) Ventral hernia without obstruction or gangrene Unspecified ventral hernia without mention of obstruction or gangrene Gastroesophageal reflux disease, unspecified whether esophagitis present Morbid obesity with BMI of 50.0-59.9, adult ([facility]) 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[facility]) Chronic lymphocytic thyroiditis Anxiety and depression ([facility]) Gastroesophageal reflux disease, unspecified whether esophagitis present- Primary 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[facility]) Chronic lymphocytic thyroiditis Moderate persistent asthma without complication ([facility]) Morbid obesity with BMI of 50.0-59.9, adult ([facility]) Arthritis of knee, right 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[facility])- Primary Chronic lymphocytic thyroiditis Morbid obesity with BMI of 50.0-59.9, adult ([facility]) Psoriasis ([facility]) Other psoriasis Anxiety and depression ([facility]) Gastroesophageal reflux disease, unspecified whether esophagitis present Moderate persistent asthma without complication ([facility]) Arthritis of knee, right Anxiety and depression ([facility])- Primary Mild persistent asthma without complication ([facility]) Gastroesophageal reflux disease, unspecified whether esophagitis present Morbid obesity with BMI of 50.0-59.9, adult ([facility]) 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[facility] Chronic lymphocytic thyroiditis Morbid obesity due to excess calories ([facility]) Moderate persistent asthma without complication ([facility]) Encounter for screening mammogram for malignant neoplasm of breast Arthritis of knee, right Psoriasis ([facility])- Primary Other psoriasis Arthritis of knee, right- Primary Acute postoperative pain of right knee Status post right knee replacement Difficulty walking Difficulty in walking documented in this encounter [facility]* Diagnosis Anxiety and depression ([facility])- Primary Elevated glucose Other abnormal glucose Hypomagnesemia Disorders of magnesium metabolism Gastroesophageal reflux disease, unspecified whether esophagitis present Morbid obesity with BMI of 50.0-59.9, adult ([facility]) Moderate persistent asthma without complication ([facility] Chronic pain of right knee Anxiety and depression ([facility])- Primary Abnormal TSH Chronic pain of right knee Non-recurrent acute suppurative otitis media of left ear without spontaneous rupture of tympanic membrane 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[facility])- Primary Chronic lymphocytic thyroiditis Anxiety and depression ([facility]) Morbid obesity with BMI of 50.0-59.9, adult ([facility]) Arthritis of knee, right Cellulitis of lower extremity, unspecified laterality- Primary Moderate persistent asthma without complication ([facility]) Ventral hernia without obstruction or gangrene Unspecified ventral hernia without mention of obstruction or gangrene Gastroesophageal reflux disease, unspecified whether esophagitis present Morbid obesity with BMI of 50.0-59.9, adult ([facility]) 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[facility]) Chronic lymphocytic thyroiditis Anxiety and depression ([facility]) Gastroesophageal reflux disease, unspecified whether esophagitis present- Primary 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[facility]) Chronic lymphocytic thyroiditis Moderate persistent asthma without complication ([facility]) Morbid obesity with BMI of 50.0-59.9, adult ([facility]) Arthritis of knee, right 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[facility])- Primary Chronic lymphocytic thyroiditis Morbid obesity with BMI of 50.0-59.9, adult ([facility]) Psoriasis ([facility]) Other psoriasis Anxiety and depression ([facility]) Gastroesophageal reflux disease, unspecified whether esophagitis present Moderate persistent asthma without complication ([facility]) Arthritis of knee, right Anxiety and depression ([facility]/HCC)- Primary Mild persistent asthma without complication ([facility]) Gastroesophageal reflux disease, unspecified whether esophagitis present Morbid obesity with BMI of 50.0-59.9, adult ([facility]) 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[facility]) Chronic lymphocytic thyroiditis Morbid obesity due to excess calories ([facility]) Moderate persistent asthma without complication ([facility]) Encounter for screening mammogram for malignant neoplasm of breast Arthritis of knee, right Psoriasis ([facility])- Primary Other psoriasis Arthritis of knee, right- Primary Acute postoperative pain of right knee Status post right knee replacement Difficulty walking Difficulty in walking documented in this encounter [facility]* Diagnosis Anxiety and depression (CMS/HCC)- Primary Elevated glucose Other abnormal glucose Hypomagnesemia Disorders of magnesium metabolism Gastroesophageal reflux disease, unspecified whether esophagitis present Morbid obesity with BMI of 50.0-59.9, adult ([facility]) Moderate persistent asthma without complication (CMS/HCC) Chronic pain of right knee Anxiety and depression (CMS/HCC)- Primary Abnormal TSH Chronic pain of right knee Non-recurrent acute suppurative otitis media of left ear without spontaneous rupture of tympanic membrane 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CMS/HCC)- Primary Chronic lymphocytic thyroiditis Anxiety and depression (CMS/HCC) Morbid obesity with BMI of 50.0-59.9, adult ([facility]) Arthritis of knee, right Cellulitis of lower extremity, unspecified laterality- Primary Moderate persistent asthma without complication (CMS/HCC) Ventral hernia without obstruction or gangrene Unspecified ventral hernia without mention of obstruction or gangrene Gastroesophageal reflux disease, unspecified whether esophagitis present Morbid obesity with BMI of 50.0-59.9, adult ([facility]) 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[facility]/HCC) Chronic lymphocytic thyroiditis Anxiety and depression (CMS/[facility]) Gastroesophageal reflux disease, unspecified whether esophagitis present- Primary 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CMS/HCC) Chronic lymphocytic thyroiditis Moderate persistent asthma without complication (CMS/HCC) Morbid obesity with BMI of 50.0-59.9, adult ([facility]) Arthritis of knee, right 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CMS/HCC)- Primary Chronic lymphocytic thyroiditis Morbid obesity with BMI of 50.0-59.9, adult ([facility]) Psoriasis (CMS/HCC) Other psoriasis Anxiety and depression (CMS/HCC) Gastroesophageal reflux disease, unspecified whether esophagitis present Moderate persistent asthma without complication (CMS/HCC) Arthritis of knee, right Anxiety and depression (CMS/HCC)- Primary Mild persistent asthma without complication (CMS/HCC) Gastroesophageal reflux disease, unspecified whether esophagitis present Morbid obesity with BMI of 50.0-59.9, adult ([facility]) 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CMS/[facility]) Chronic lymphocytic thyroiditis Morbid obesity due to excess calories (CMS/HCC) Moderate persistent asthma without complication ([facility]) Encounter for screening mammogram for malignant neoplasm of breast Arthritis of knee, right Psoriasis (CMS/HCC)- Primary Other psoriasis Aftercare following right knee joint replacement surgery- Primary documented in this encounter [facility]Evaluation [facility]* Diagnosis Anxiety and depression ([facility]/HCC)- Primary Elevated glucose Other abnormal glucose Hypomagnesemia Disorders of magnesium metabolism Gastroesophageal reflux disease, unspecified whether esophagitis present Morbid obesity with BMI of 50.0-59.9, adult ([facility]) Moderate persistent asthma without complication (CMS/HCC) Chronic pain of right knee Anxiety and depression (CMS/HCC)- Primary Abnormal TSH Chronic pain of right knee Non-recurrent acute suppurative otitis media of left ear without spontaneous rupture of tympanic membrane 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CMS/HCC)- Primary Chronic lymphocytic thyroiditis Anxiety and depression (CMS/[facility]) Morbid obesity with BMI of 50.0-59.9, adult ([facility]) Arthritis of knee, right Cellulitis of lower extremity, unspecified laterality- Primary Moderate persistent asthma without complication (CMS/[facility]) Ventral hernia without obstruction or gangrene Unspecified ventral hernia without mention of obstruction or gangrene Gastroesophageal reflux disease, unspecified whether esophagitis present Morbid obesity with BMI of 50.0-59.9, adult ([facility]) 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CMS/HCC) Chronic lymphocytic thyroiditis Anxiety and depression ([facility]) Gastroesophageal reflux disease, unspecified whether esophagitis present- Primary 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CMS/HCC) Chronic lymphocytic thyroiditis Moderate persistent asthma without complication (CMS/HCC) Morbid obesity with BMI of 50.0-59.9, adult ([facility]) Arthritis of knee, right 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CMS/HCC)- Primary Chronic lymphocytic thyroiditis Morbid obesity with BMI of 50.0-59.9, adult ([facility]/HCC) Psoriasis (CMS/HCC) Other psoriasis Anxiety and depression (CMS/HCC) Gastroesophageal reflux disease, unspecified whether esophagitis present Moderate persistent asthma without complication (CMS/HCC) Arthritis of knee, right Anxiety and depression ([facility]/HCC)- Primary Mild persistent asthma without complication (CMS/HCC) Gastroesophageal reflux disease, unspecified whether esophagitis present Morbid obesity with BMI of 50.0-59.9, adult ([facility]) 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CMS/HCC) Chronic lymphocytic thyroiditis Morbid obesity due to excess calories (CMS/HCC) Moderate persistent asthma without complication (CMS/HCC) Encounter for screening mammogram for malignant neoplasm of breast Arthritis of knee, right Psoriasis (CMS/HCC)- Primary Other psoriasis Arthritis of knee, right- Primary Acute postoperative pain of right knee Status post right knee replacement documented in this encounter [facility]* Diagnosis Anxiety and depression (CMS/HCC)- Primary Elevated glucose Other abnormal glucose Hypomagnesemia Disorders of magnesium metabolism Gastroesophageal reflux disease, unspecified whether esophagitis present Morbid obesity with BMI of 50.0-59.9, adult ([facility]) Moderate persistent asthma without complication (CMS/HCC) Chronic pain of right knee Anxiety and depression (CMS/HCC)- Primary Abnormal TSH Chronic pain of right knee Non-recurrent acute suppurative otitis media of left ear without spontaneous rupture of tympanic membrane 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CMS/HCC)- Primary Chronic lymphocytic thyroiditis Anxiety and depression (CMS/[facility]) Morbid obesity with BMI of 50.0-59.9, adult ([facility]) Arthritis of knee, right Cellulitis of lower extremity, unspecified laterality- Primary Moderate persistent asthma without complication (CMS/[facility]) Ventral hernia without obstruction or gangrene Unspecified ventral hernia without mention of obstruction or gangrene Gastroesophageal reflux disease, unspecified whether esophagitis present Morbid obesity with BMI of 50.0-59.9, adult ([facility]) 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[facility]/HCC) Chronic lymphocytic thyroiditis Anxiety and depression ([facility]) Gastroesophageal reflux disease, unspecified whether esophagitis present- Primary 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CMS/HCC) Chronic lymphocytic thyroiditis Moderate persistent asthma without complication (CMS/HCC) Morbid obesity with BMI of 50.0-59.9, adult ([facility]) Arthritis of knee, right 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CMS/HCC)- Primary Chronic lymphocytic thyroiditis Morbid obesity with BMI of 50.0-59.9, adult ([facility]) Psoriasis (CMS/[facility]) Other psoriasis Anxiety and depression (CMS/[facility]) Gastroesophageal reflux disease, unspecified whether esophagitis present Moderate persistent asthma without complication (CMS/HCC) Arthritis of knee, right Anxiety and depression (CMS/HCC)- Primary Mild persistent asthma without complication (CMS/HCC) Gastroesophageal reflux disease, unspecified whether esophagitis present Morbid obesity with BMI of 50.0-59.9, adult ([facility]) 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CMS/HCC) Chronic lymphocytic thyroiditis Morbid obesity due to excess calories (CMS/HCC) Moderate persistent asthma without complication (CMS/HCC) Encounter for screening mammogram for malignant neoplasm of breast Arthritis of knee, right Psoriasis (CMS/HCC)- Primary Other psoriasis Arthritis of knee, right- Primary Acute postoperative pain of right knee Status post right knee replacement Difficulty walking Difficulty in walking documented in this encounter [facility]Evaluation note* Diagnosis Anxiety and depression (CMS/HCC)- Primary Elevated glucose Other abnormal glucose Hypomagnesemia Disorders of magnesium metabolism Gastroesophageal reflux disease, unspecified whether esophagitis present Morbid obesity with BMI of 50.0-59.9, adult ([facility]) Moderate persistent asthma without complication (CMS/HCC) Chronic pain of right knee Anxiety and depression (CMS/[facility])- Primary Abnormal TSH Chronic pain of right knee Non-recurrent acute suppurative otitis media of left ear without spontaneous rupture of tympanic membrane 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CMS/[facility])- Primary Chronic lymphocytic thyroiditis Anxiety and depression ([facility]) Morbid obesity with BMI of 50.0-59.9, adult ([facility]) Arthritis of knee, right Cellulitis of lower extremity, unspecified laterality- Primary Moderate persistent asthma without complication (CMS/[facility]) Ventral hernia without obstruction or gangrene Unspecified ventral hernia without mention of obstruction or gangrene Gastroesophageal reflux disease, unspecified whether esophagitis present Morbid obesity with BMI of 50.0-59.9, adult ([facility]) 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[facility]) Chronic lymphocytic thyroiditis Anxiety and depression ([facility]) Gastroesophageal reflux disease, unspecified whether esophagitis present- Primary 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CMS/HCC) Chronic lymphocytic thyroiditis Moderate persistent asthma without complication (CMS/HCC) Morbid obesity with BMI of 50.0-59.9, adult ([facility]) Arthritis of knee, right 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CMS/[facility])- Primary Chronic lymphocytic thyroiditis Morbid obesity with BMI of 50.0-59.9, adult ([facility]) Psoriasis (CMS/[facility]) Other psoriasis Anxiety and depression (CMS/[facility]) Gastroesophageal reflux disease, unspecified whether esophagitis present Moderate persistent asthma without complication (CMS/HCC) Arthritis of knee, right Anxiety and depression (CMS/HCC)- Primary Mild persistent asthma without complication (CMS/[facility]) Gastroesophageal reflux disease, unspecified whether esophagitis present Morbid obesity with BMI of 50.0-59.9, adult ([facility]) 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CMS/HCC) Chronic lymphocytic thyroiditis Morbid obesity due to excess calories (CMS/HCC) Moderate persistent asthma without complication ([facility]) Encounter for screening mammogram for malignant neoplasm of breast Arthritis of knee, right Psoriasis (CMS/HCC)- Primary Other psoriasis Arthritis of knee, right- Primary Acute postoperative pain of right knee Status post right knee replacement Difficulty walking Difficulty in walking documented in this encounter [facility] HealthcareEvaluation note* Diagnosis Anxiety and depression (CMS/HCC)- Primary Elevated glucose Other abnormal glucose Hypomagnesemia Disorders of magnesium metabolism Gastroesophageal reflux disease, unspecified whether esophagitis present Morbid obesity with BMI of 50.0-59.9, adult ([facility]) Moderate persistent asthma without complication ([facility] [facility] Chronic pain of right knee Anxiety and depression (CMS/[facility])- Primary Abnormal TSH Chronic pain of right knee Non-recurrent acute suppurative otitis media of left ear without spontaneous rupture of tympanic membrane 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[facility])- Primary Chronic lymphocytic thyroiditis Anxiety and depression ([facility]) Morbid obesity with BMI of 50.0-59.9, adult ([facility]) Arthritis of knee, right Cellulitis of lower extremity, unspecified laterality- Primary Moderate persistent asthma without complication ([facility]) Ventral hernia without obstruction or gangrene Unspecified ventral hernia without mention of obstruction or gangrene Gastroesophageal reflux disease, unspecified whether esophagitis present Morbid obesity with BMI of 50.0-59.9, adult ([facility]) 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[facility]) Chronic lymphocytic thyroiditis Anxiety and depression ([facility]) Gastroesophageal reflux disease, unspecified whether esophagitis present- Primary 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CMS/HCC) Chronic lymphocytic thyroiditis Moderate persistent asthma without complication (CMS/HCC) Morbid obesity with BMI of 50.0-59.9, adult ([facility]) Arthritis of knee, right 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[facility]/HCC)- Primary Chronic lymphocytic thyroiditis Morbid obesity with BMI of 50.0-59.9, adult ([facility]) Psoriasis (CMS/[facility]) Other psoriasis Anxiety and depression ([facility]) Gastroesophageal reflux disease, unspecified whether esophagitis present Moderate persistent asthma without complication (CMS/HCC) Arthritis of knee, right Anxiety and depression ([facility]/HCC)- Primary Mild persistent asthma without complication (CMS/HCC) Gastroesophageal reflux disease, unspecified whether esophagitis present Morbid obesity with BMI of 50.0-59.9, adult (CMS/HCC) 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CMS/HCC) Chronic lymphocytic thyroiditis Morbid obesity due to excess calories (CMS/HCC) Moderate persistent asthma without complication (CMS/HCC) Encounter for screening mammogram for malignant neoplasm of breast Arthritis of knee, right Psoriasis (CMS/HCC)- Primary Other psoriasis Moderate persistent asthma, uncomplicated (CMS/HCC) 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CMS/HCC) Chronic lymphocytic thyroiditis Anxiety and depression (CMS/HCC) documented in this encounter [facility] HealthcareEvaluation note* Diagnosis Anxiety and depression (CMS/HCC)- [...] Primary Chronic lymphocytic thyroiditis Anxiety and depression (CMS/HCC) Morbid obesity with BMI of 50.0-59.9, adult (CMS/HCC) Arthritis of knee, right Cellulitis of lower extremity, unspecified laterality- Primary Moderate persistent asthma without complication (CMS/HCC) Ventral hernia without obstruction or gangrene Unspecified ventral hernia without mention of obstruction or gangrene Gastroesophageal reflux disease, unspecified whether esophagitis present Morbid obesity with BMI of 50.0-59.9, adult (CMS/HCC) 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CMS/HCC) Chronic lymphocytic thyroiditis Anxiety and depression (CMS/HCC) Gastroesophageal reflux disease, unspecified whether esophagitis present- Primary Aura's thyroiditis (CMS/HCC) Chronic lymphocytic thyroiditis Moderate persistent asthma without complication (CMS/HCC) Morbid obesity with BMI of 50.0-59.9, adult (CMS/HCC) Arthritis of knee, right Aura's thyroiditis (CMS/HCC)- [...] Morbid obesity with BMI of 50.0-59.9, adult ([facility]) Aura's thyroiditis (CMS/[facility]) Chronic lymphocytic thyroiditis Morbid obesity due to excess calories (CMS/HCC) Moderate persistent asthma without complication ([facility]) Encounter for screening mammogram for malignant neoplasm of breast Arthritis of knee, right Psoriasis (CMS/[facility])- Primary Other psoriasis Arthritis of knee, right- Primary Acute postoperative pain of right knee Status post right knee replacement documented in this encounter [facility] HealthcareEvaluation note* Diagnosis Anxiety and depression ([facility])- Primary Elevated glucose Other abnormal glucose Hypomagnesemia Disorders of magnesium metabolism Gastroesophageal reflux disease, unspecified whether esophagitis present Morbid obesity with BMI of 50.0-59.9, adult ([facility]) Moderate persistent asthma without complication (CMS/HCC) Chronic pain of right knee Anxiety and depression (CMS/HCC)- Primary Abnormal TSH Chronic pain of right knee Non-recurrent acute suppurative otitis media of left ear without spontaneous rupture of tympanic membrane Aura's thyroiditis ([facility])- Primary Chronic lymphocytic thyroiditis Anxiety and depression ([facility]) Morbid obesity with BMI of 50.0-59.9, adult ([facility]) Arthritis of knee, right Cellulitis of lower extremity, unspecified laterality- Primary Moderate persistent asthma without complication ([facility]) Ventral hernia without obstruction or gangrene Unspecified ventral hernia without mention of obstruction or gangrene Gastroesophageal reflux disease, unspecified whether esophagitis present Morbid obesity with BMI of 50.0-59.9, adult ([facility]) Aura's thyroiditis ([facility]) Chronic lymphocytic thyroiditis Anxiety and depression ([facility]) Gastroesophageal reflux disease, unspecified whether esophagitis present- Primary Aura's thyroiditis (CMS/HCC) Chronic lymphocytic thyroiditis Moderate persistent asthma without complication (CMS/HCC) Morbid obesity with BMI of 50.0-59.9, adult ([facility]) Arthritis of knee, right Aura's thyroiditis ([facility])- Primary Chronic lymphocytic thyroiditis Morbid obesity with BMI of 50.0-59.9, adult ([facility]) Psoriasis (CMS/[facility]) Other psoriasis Anxiety and depression (CMS/[facility]) Gastroesophageal reflux disease, unspecified whether esophagitis present Moderate persistent asthma without complication (CMS/HCC) Arthritis of knee, right Anxiety and depression ([facility]/HCC)- Primary Mild persistent asthma without complication ([facility]) Gastroesophageal reflux disease, unspecified whether esophagitis present Morbid obesity with BMI of 50.0-59.9, adult ([facility]) Aura's thyroiditis ([facility]) Chronic lymphocytic thyroiditis Morbid obesity due to excess calories ([facility]) Moderate persistent asthma without complication ([facility]) Encounter for screening mammogram for malignant neoplasm of breast Arthritis of knee, right Psoriasis ([facility])- Primary Other psoriasis Acute postoperative pain of right knee- Primary Status post right knee replacement Difficulty walking Difficulty in walking Aftercare following right knee joint replacement surgery documented in this encounter [facility] HealthcareEvaluation note* Diagnosis Anxiety and depression ([facility])- Primary Elevated glucose Other abnormal glucose Hypomagnesemia Disorders of magnesium metabolism Gastroesophageal reflux disease, unspecified whether esophagitis present Morbid obesity with BMI of 50.0-59.9, adult ([facility]) Moderate persistent asthma without complication ([facility]) Chronic pain of right knee Anxiety and depression ([facility])- Primary Abnormal TSH Chronic pain of right knee Non-recurrent acute suppurative otitis media of left ear without spontaneous rupture of tympanic membrane Aura's thyroiditis ([facility])- Primary Chronic lymphocytic thyroiditis Anxiety and depression ([facility]) Morbid obesity with BMI of 50.0-59.9, adult ([facility]) Arthritis of knee, right Cellulitis of lower extremity, unspecified laterality- Primary Moderate persistent asthma without complication ([facility]) Ventral hernia without obstruction or gangrene Unspecified ventral hernia without mention of obstruction or gangrene Gastroesophageal reflux disease, unspecified whether esophagitis present Morbid obesity with BMI of 50.0-59.9, adult ([facility]) Aura's thyroiditis ([facility]) Chronic lymphocytic thyroiditis Anxiety and depression ([facility]) Gastroesophageal reflux disease, unspecified whether esophagitis present- Primary Aura's thyroiditis ([facility]) Chronic lymphocytic thyroiditis Moderate persistent asthma without complication ([facility]) Morbid obesity with BMI of 50.0-59.9, adult ([facility]) Arthritis of knee, right Aura's thyroiditis ([facility]/HCC)- Primary Chronic lymphocytic thyroiditis Morbid obesity with BMI of 50.0-59.9, adult ([facility]) Psoriasis (CMS/[facility]) Other psoriasis Anxiety and depression (CMS/[facility]) Gastroesophageal reflux disease, unspecified whether esophagitis present Moderate persistent asthma without complication (CMS/HCC) Arthritis of knee, right Anxiety and depression ([facility])- Primary Mild persistent asthma without complication (CMS/[facility]) Gastroesophageal reflux disease, unspecified whether esophagitis present Morbid obesity with BMI of 50.0-59.9, adult ([facility]) Aura's thyroiditis ([facility]) Chronic lymphocytic thyroiditis Morbid obesity due to excess calories ([facility]) Moderate persistent asthma without complication ([facility]) Encounter for screening mammogram for malignant neoplasm of breast Arthritis of knee, right Psoriasis (CMS/[facility])- Primary Other psoriasis Acute postoperative pain of right knee- Primary Status post right knee replacement Difficulty walking Difficulty in walking Aftercare following right knee joint replacement surgery Arthritis of knee, right documented in this encounter [facility] HealthcareEvaluation note* Diagnosis Anxiety and depression ([facility])- Primary Elevated glucose Other abnormal glucose Hypomagnesemia Disorders of magnesium metabolism Gastroesophageal reflux disease, unspecified whether esophagitis present Morbid obesity with BMI of 50.0-59.9, adult ([facility]) Moderate persistent asthma without complication ([facility] Chronic pain of right knee Anxiety and depression ([facility])- Primary Abnormal TSH Chronic pain of right knee Non-recurrent acute suppurative otitis media of left ear without spontaneous rupture of tympanic membrane Aura's thyroiditis ([facility])- Primary Chronic lymphocytic thyroiditis Anxiety and depression ([facility]) Morbid obesity with BMI of 50.0-59.9, adult ([facility]) Arthritis of knee, right Cellulitis of lower extremity, unspecified laterality- Primary Moderate persistent asthma without complication ([facility]) Ventral hernia without obstruction or gangrene Unspecified ventral hernia without mention of obstruction or gangrene Gastroesophageal reflux disease, unspecified whether esophagitis present Morbid obesity with BMI of 50.0-59.9, adult ([facility]) Aura's thyroiditis ([facility]) Chronic lymphocytic thyroiditis Anxiety and depression ([facility]) Gastroesophageal reflux disease, unspecified whether esophagitis present- Primary Aura's thyroiditis (CMS/HCC) Chronic lymphocytic thyroiditis Moderate persistent asthma without complication (CMS/HCC) Morbid obesity with BMI of 50.0-59.9, adult ([facility]) Arthritis of knee, right Aura's thyroiditis (CMS/HCC)- Primary Chronic lymphocytic thyroiditis Morbid obesity with BMI of 50.0-59.9, adult ([facility]) Psoriasis (CMS/HCC) Other psoriasis Anxiety and depression (CMS/[facility]) Gastroesophageal reflux disease, unspecified whether esophagitis present Moderate persistent asthma without complication (CMS/HCC) Arthritis of knee, right Anxiety and depression (CMS/HCC)- Primary Mild persistent asthma without complication (CMS/HCC) Gastroesophageal reflux disease, unspecified whether esophagitis present Morbid obesity with BMI of 50.0-59.9, adult ([facility]) Arua's thyroiditis ([facility]) Chronic lymphocytic thyroiditis Morbid obesity due to excess calories (CMS/[facility]) Moderate persistent asthma without complication ([facility]) Encounter for screening mammogram for malignant neoplasm of breast Arthritis of knee, right Psoriasis ([facility])- Primary Other psoriasis Acute postoperative pain of right knee- Primary Status post right knee replacement Difficulty walking Difficulty in walking documented in this encounter [facility] HealthcareEvaluation note* Diagnosis Anxiety and depression ([facility])- Primary Elevated glucose Other abnormal glucose Hypomagnesemia Disorders of magnesium metabolism Gastroesophageal reflux disease, unspecified whether esophagitis present Morbid obesity with BMI of 50.0-59.9, adult ([facility]) Moderate persistent asthma without complication ([facility] Chronic pain of right knee Anxiety and depression ([facility])- Primary Abnormal TSH Chronic pain of right knee Non-recurrent acute suppurative otitis media of left ear without spontaneous rupture of tympanic membrane Aura's thyroiditis ([facility]/HCC)- Primary Chronic lymphocytic thyroiditis Anxiety and depression ([facility]) Morbid obesity with BMI of 50.0-59.9, adult ([facility]) Arthritis of knee, right Cellulitis of lower extremity, unspecified laterality- Primary Moderate persistent asthma without complication (CMS/HCC) Ventral hernia without obstruction or gangrene Unspecified ventral hernia without mention of obstruction or gangrene Gastroesophageal reflux disease, unspecified whether esophagitis present Morbid obesity with BMI of 50.0-59.9, adult ([facility]) Aura's thyroiditis ([facility]) Chronic lymphocytic thyroiditis Anxiety and depression ([facility]) Gastroesophageal reflux disease, unspecified whether esophagitis present- Primary Aura's thyroiditis ([facility]) Chronic lymphocytic thyroiditis Moderate persistent asthma without complication ([facility]) Morbid obesity with BMI of 50.0-59.9, adult ([facility]) Arthritis of knee, right Aura's thyroiditis ([facility])- Primary Chronic lymphocytic thyroiditis Morbid obesity with BMI of 50.0-59.9, adult ([facility]) Psoriasis ([facility]) Other psoriasis Anxiety and depression ([facility]) Gastroesophageal reflux disease, unspecified whether esophagitis present Moderate persistent asthma without complication ([facility]) Arthritis of knee, right Anxiety and depression ([facility])- Primary Mild persistent asthma without complication ([facility]) Gastroesophageal reflux disease, unspecified whether esophagitis present Morbid obesity with BMI of 50.0-59.9, adult ([facility]) Aura's thyroiditis ([facility]) Chronic lymphocytic thyroiditis Morbid obesity due to excess calories ([facility]) Moderate persistent asthma without complication ([facility]) Encounter for screening mammogram for malignant neoplasm of breast Arthritis of knee, right Psoriasis ([facility])- Primary Other psoriasis Acute postoperative pain of right knee- Primary Status post right knee replacement Aftercare following right knee joint replacement surgery Arthritis of knee, right Presence of right artificial knee joint Primary osteoarthritis of right knee documented in this encounter [facility] HealthcareEvaluation note* Diagnosis Anxiety and depression ([facility])- Primary Elevated glucose Other abnormal glucose Hypomagnesemia Disorders of magnesium metabolism Gastroesophageal reflux disease, unspecified whether esophagitis present Morbid obesity with BMI of 50.0-59.9, adult ([facility]) Moderate persistent asthma without complication ([facility]) Chronic pain of right knee Anxiety and depression ([facility])- Primary Abnormal TSH Chronic pain of right knee Non-recurrent acute suppurative otitis media of left ear without spontaneous rupture of tympanic membrane Aura's thyroiditis ([facility])- Primary Chronic lymphocytic thyroiditis Anxiety and depression ([facility]) Morbid obesity with BMI of 50.0-59.9, adult ([facility]) Arthritis of knee, right Cellulitis of lower extremity, unspecified laterality- Primary Moderate persistent asthma without complication ([facility]) Ventral hernia without obstruction or gangrene Unspecified ventral hernia without mention of obstruction or gangrene Gastroesophageal reflux disease, unspecified whether esophagitis present Morbid obesity with BMI of 50.0-59.9, adult ([facility]) Aura's thyroiditis ([facility]) Chronic lymphocytic thyroiditis Anxiety and depression ([facility]) Gastroesophageal reflux disease, unspecified whether esophagitis present- Primary Aura's thyroiditis ([facility]) Chronic lymphocytic thyroiditis Moderate persistent asthma without complication ([facility]) Morbid obesity with BMI of 50.0-59.9, adult ([facility]) Arthritis of knee, right Aura's thyroiditis ([facility])- Primary Chronic lymphocytic thyroiditis Morbid obesity with BMI of 50.0-59.9, adult ([facility]) Psoriasis ([facility]) Other psoriasis Anxiety and depression ([facility]) Gastroesophageal reflux disease, unspecified whether esophagitis present Moderate persistent asthma without complication ([facility]) Arthritis of knee, right Anxiety and depression ([facility])- Primary Mild persistent asthma without complication ([facility]) Gastroesophageal reflux disease, unspecified whether esophagitis present Morbid obesity with BMI of 50.0-59.9, adult ([facility]) Aura's thyroiditis ([facility]) Chronic lymphocytic thyroiditis Morbid obesity due to excess calories ([facility]) Moderate persistent asthma without complication ([facility]) Encounter for screening mammogram for malignant neoplasm of breast Arthritis of knee, right Psoriasis ([facility])- Primary Other psoriasis Acute postoperative pain of right knee- Primary Status post right knee replacement Aftercare following right knee joint replacement surgery Arthritis of knee, right documented in this encounter [facility]* Diagnosis Anxiety and depression ([facility])- Primary Elevated glucose Other abnormal glucose Hypomagnesemia Disorders of magnesium metabolism Gastroesophageal reflux disease, unspecified whether esophagitis present Morbid obesity with BMI of 50.0-59.9, adult ([facility]) Moderate persistent asthma without complication ([facility]) Chronic pain of right knee Anxiety and depression ([facility])- Primary Abnormal TSH Chronic pain of right knee Non-recurrent acute suppurative otitis media of left ear without spontaneous rupture of tympanic membrane 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[facility])- Primary Chronic lymphocytic thyroiditis Anxiety and depression ([facility]) Morbid obesity with BMI of 50.0-59.9, adult ([facility]) Arthritis of knee, right Cellulitis of lower extremity, unspecified laterality- Primary Moderate persistent asthma without complication ([facility]) Ventral hernia without obstruction or gangrene Unspecified ventral hernia without mention of obstruction or gangrene Gastroesophageal reflux disease, unspecified whether esophagitis present Morbid obesity with BMI of 50.0-59.9, adult ([facility]) Aura's thyroiditis ([facility]) Chronic lymphocytic thyroiditis Anxiety and depression ([facility]) Gastroesophageal reflux disease, unspecified whether esophagitis present- Primary Aura's thyroiditis ([facility]) Chronic lymphocytic thyroiditis Moderate persistent asthma without complication ([facility]) Morbid obesity with BMI of 50.0-59.9, adult ([facility]) Arthritis of knee, right Aura's thyroiditis ([facility])- Primary Chronic lymphocytic thyroiditis Morbid obesity with BMI of 50.0-59.9, adult ([facility]) Psoriasis ([facility]) Other psoriasis Anxiety and depression ([facility]) Gastroesophageal reflux disease, unspecified whether esophagitis present Moderate persistent asthma without complication ([facility]) Arthritis of knee, right Anxiety and depression ([facility])- Primary Mild persistent asthma without complication ([facility]) Gastroesophageal reflux disease, unspecified whether esophagitis present Morbid obesity with BMI of 50.0-59.9, adult ([facility]) Aura's thyroiditis ([facility]) Chronic lymphocytic thyroiditis Morbid obesity due to excess calories ([facility]) Moderate persistent asthma without complication ([facility]) Encounter for screening mammogram for malignant neoplasm of breast Arthritis of knee, right Psoriasis ([facility])- Primary Other psoriasis Acute postoperative pain of right knee- Primary Status post right knee replacement Aftercare following right knee joint replacement surgery Arthritis of knee, right Presence of right artificial knee joint Primary osteoarthritis of right knee documented in this encounter [facility] HealthcareEvaluation note* Diagnosis Anxiety and depression ([facility])- Primary Elevated glucose Other abnormal glucose Hypomagnesemia Disorders of magnesium metabolism Gastroesophageal reflux disease, unspecified whether esophagitis present Morbid obesity with BMI of 50.0-59.9, adult ([facility]) Moderate persistent asthma without complication ([facility] Chronic pain of right knee Anxiety and depression ([facility])- Primary Abnormal TSH Chronic pain of right knee Non-recurrent acute suppurative otitis media of left ear without spontaneous rupture of tympanic membrane 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[facility])- Primary Chronic lymphocytic thyroiditis Anxiety and depression ([facility]) Morbid obesity with BMI of 50.0-59.9, adult ([facility]) Arthritis of knee, right Cellulitis of lower extremity, unspecified laterality- Primary Moderate persistent asthma without complication (CMS/HCC) Ventral hernia without obstruction or gangrene Unspecified ventral hernia without mention of obstruction or gangrene Gastroesophageal reflux disease, unspecified whether esophagitis present Morbid obesity with BMI of 50.0-59.9, adult ([facility]) Aura's thyroiditis ([facility]) Chronic lymphocytic thyroiditis Anxiety and depression ([facility]) Gastroesophageal reflux disease, unspecified whether esophagitis present- Primary Aura's thyroiditis ([facility]CC) Chronic lymphocytic thyroiditis Moderate persistent asthma without complication ([facility]) Morbid obesity with BMI of 50.0-59.9, adult ([facility]) Arthritis of knee, right Aura's thyroiditis ([facility])- Primary Chronic lymphocytic thyroiditis Morbid obesity with BMI of 50.0-59.9, adult ([facility]) Psoriasis ([facility]) Other psoriasis Anxiety and depression ([facility]) Gastroesophageal reflux disease, unspecified whether esophagitis present Moderate persistent asthma without complication (CMS/HCC) Arthritis of knee, right Anxiety and depression ([facility])- Primary Mild persistent asthma without complication ([facility]) Gastroesophageal reflux disease, unspecified whether esophagitis present Morbid obesity with BMI of 50.0-59.9, adult ([facility]) Aura's thyroiditis ([facility] Chronic lymphocytic thyroiditis Morbid obesity due to excess calories ([facility]) Moderate persistent asthma without complication ([facility]) Encounter for screening mammogram for malignant neoplasm of breast Arthritis of knee, right Psoriasis ([facility])- Primary Other psoriasis 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 Morbid (severe) obesity due to excess calories ([facility]) Body mass index (BMI) 45.0-49.9, adult ([facility]) Mild persistent asthma without complication ([facility]) Gastroesophageal reflux disease, unspecified whether esophagitis present Anxiety and depression (CMS/HCC) Hypomagnesemia Disorders of magnesium metabolism Elevated glucose Other abnormal glucose Moderate persistent asthma without complication (CMS/HCC) Moderate persistent asthma, uncomplicated (CMS/HCC) Other constipation documented in this encounter [facility] Narrative - Reported* Type Description Date Medical History diabetes Medical History asthma Medical History hx of syncope Medical History Gastro-esophageal reflux disease without esophagitis Surgical History hernia surgery X2 Surgical History gall bladder removed Hospitalization History see above surgical hx Hospitalization History 2 child births [employer] Other Hospital course Narrative No data available for this section [facility] Hospital Discharge instructions No data available for this section [facility] Progress note No data available for this section [facility] Reason for referral (narrative)* Consultation (Routine) - Pending Review Specialty Diagnoses / Procedures Referred By Arnoldo t Referred To Contact Rheumatology Diagnoses Psoriasis (CMS/HCC) Procedures MO OFFICE/OUTPATIENT NEW HIGH MDM 60 MINUTES Elvie Greer NP [address] [place] [address] Ghassan Ramos MD [address] [place] [address] Referral ID Status Reason Start Date Expiration Date Visits Requested Visits Authorized [id number] Pending Review Specialty Services Required 11/09/2023 05/07/2024 1 1 [facility] Narrative* Consultation (Routine) - Authorized Specialty Diagnoses / Procedures Referred By Contluis t Referred To Contact Physical Therapy Diagnoses Primary osteoarthritis of right knee Procedures MO OFFICE/OUTPATIENT NEW HIGH MDM 60 MINUTES Chan Khan, DO [address] [place] [address] Phone: tel: fax: Kylee Fernandez PT Referral ID Status Reason Start Date Expiration Date Visits Requested Visits Authorized [id number] Authorized Specialty Services Required 07/15/2024 26 3 [facility] N[facility]ative* Rehabilitation - Outpatient (Routine) - Authorized Specialty Diagnoses / Procedures Referred By Contluis t Referred To Contact Physical Therapy Diagnoses Aftercare following right knee joint replacement surgery Presence of right artificial knee joint Procedures MO THERAPEUTIC PX 1/> AREAS EACH 15 MIN EXERCISES MO MANUAL THERAPY TQS 1/> REGIONS EACH 15 MINUTES MO THER PX 1/> AREAS EACH 15 MIN NEUROMUSC REEDUCA PHYS/OCC THERAPY SS Chan Khan, DO [address] [place] [address] Phone: tel: fax: Kylee Fernandez PT Referral ID Status Reason Start Date Expiration Date V isits Requested Visits Authorized [id number] Authorized 03/15/2024 03/07/2025 1 37 [facility] Summary Purpose Family History No Family [...] and content) DATE CREATED AUTHOR 06/01/2022 [facility] DATE CREATED AUTHOR AUTHOR'S ORGANIZ ATION 07/22/2023 [facility] DATE CREATED AUTHOR AUTHOR'S ORGANIZ ATION 12/20/2023 [facility] DATE CREATED AUTHOR AUTHOR'S ORGANIZ ATION 01/27/2024 [facility] DATE CREATED AUTHOR AUTHOR'S ORGANIZ ATION 01/28/2024 [facility] DATE CREATED AUTHOR AUTHOR'S ORGANIZ ATION 02/22/2024 [facility] DATE CREATED AUTHOR AUTHOR'S ORGANIZ ATION 02/23/2024 [facility] DATE CREATED AUTHOR AUTHOR'S ORGANIZ ATION 02/26/2024 [facility] DATE CREATED AUTHOR AUTHOR'S ORGANIZ ATION 02/29/2024 [facility] DATE CREATED AUTHOR AUTHOR'S ORGANIZ ATION 05/09/2024 [facility] dical Specialists EPIC REASON FOR VISIT (unrecogniz ed section and content) Reason Comments Follow-up Reason Comments Med Refill Reason Comments Aura's Thyroiditis Reason Comments Post-op Care Teams (unrecognized sec tion and content) Loss Prevention Detective Relationship Specialty Start Date End Date Chris Pelaez MD [address] [place] [phone] PCP - General Family Medicine 04/01/23 Elvie Greer NP [address] [place] [address] Nurse Practitioner Family Medicine 04/01/23 Loss Prevention Detective Relationship Specialty Start Date End Date Chris Pelaez MD [address] [place] [address] PCP - General Family Medicine 04/01/23 Elvie Greer NP [address] [place] [address] Nurse Practitioner Family Medicine 04/01/23 Team Status: [...] December 09, 2023 End: December 09, 2023 Loss Prevention Detective Relationship Specialty Start Date End Date Chris Pelaez MD [address] [place] [address] PCP - General Family Medicine 04/01/23 Elvie Greer NP [address] [place] [address] Nurse Practitioner Family Medicine 04/01/23 Loss Prevention Detective Relationship Specialty Start Date End Date Chris Pelaez MD [address] [place] [address] PCP - General Family Medicine 04/01/23 Elvie Greer NP [address] [place] [address] Nurse Practitioner Family Medicine 04/01/23 Loss Prevention Detective Relationship Specialty Start Date End Date Chris Pelaez MD [address] [place] [address] PCP - General Family Medicine 04/01/23 Elvie Greer NP [address] [place] [address] Nurse Practitioner Family Medicine 04/01/23 Loss Prevention Detective Relationship Specialty Start Date End Date Crhis Pelaez MD [address] [place] [address] PCP - General Family Medicine 04/01/23 Elvie Greer NP [address] [place] [address] Nurse Practitioner Family Medicine 04/01/23 Loss Prevention Detective Relationship Specialty Start Date End Date Chris Pelaez MD [address] [place] [address] PCP - General Family Medicine 04/01/23 Elvie Greer NP [address] [place] [address] Nurse Practitioner Family Medicine 04/01/23 Loss Prevention Detective Relationship Specialty Start Date End Date Chris Pelaez MD [address] [place] [address] PCP - General Family Medicine 04/01/23 Elvie Greer NP [address] [place] [address] Nurse Practitioner Family Medicine 04/01/23 Loss Prevention Detective Relationship Specialty Start Date End Date Chris Pelaez MD [address] [place] [address] PCP - General Family Medicine 04/01/23 Elvie Greer NP [address] [place] [address] Nurse Practitioner Family Medicine 04/01/23 Loss Prevention Detective Relationship Specialty Start Date End Date Chris Pelaez MD [address] [place] [address] PCP - General Family Medicine 04/01/23 Elvie Greer NP [address] [place] [address] Nurse Practitioner Family Medicine 04/01/23 Loss Prevention Detective Relationship Specialty Start Date End Date Chris Pelaez MD [address] [place] [address] PCP - General Family Medicine 04/01/23 Elvie Greer NP [address] [place] [address] Nurse Practitioner Family Medicine 04/01/23 Loss Prevention Detective Relationship Specialty Start Date End Date Chris Pelaez MD [address] [place] [address] PCP - General Family Medicine 04/01/23 Elvie Greer NP [address] [place] [address] Nurse Practitioner Family Medicine 04/01/23 Loss Prevention Detective Relationship Specialty Start Date End Date Chris Pelaez MD [address] [place] [address] PCP - General Family Medicine 04/01/23 Elvie Greer NP [address] [place] [address] Nurse Practitioner Family Medicine 04/01/23 Loss Prevention Detective Relationship Specialty Start Date End Date Chris Pelaez MD [address] [place] [address] PCP - General Family Medicine 04/01/23 Elvie Greer NP [address] [place] [address] Nurse Practitioner Family Medicine 04/01/23 Loss Prevention Detective Relationship Specialty Start Date End Date Chris Pelaez MD [address] [place] [address] PCP - General Family Medicine 04/01/23 Elvie Greer NP [address] [place] [address] Nurse Practitioner Family Medicine 04/01/23 Loss Prevention Detective Relationship Specialty Start Date End Date Chris Pelaez MD [address] [place] [address] PCP - General Family Medicine 04/01/23 Elvie Greer NP [address] [place] [address] Nurse Practitioner Family Medicine 04/01/23 Loss Prevention Detective Relationship Specialty Start Date End Date Chris Pelaez MD [address] [place] [address] PCP - General Family Medicine 04/01/23 Elvie Greer NP [address] [place] [address] Nurse Practitioner Family Medicine 04/01/23 Loss Prevention Detective Relationship Specialty Start Date End Date Chris Pelaez MD [address] [place] [address] PCP - General Family Medicine 04/01/23 Elvie Greer NP [address] [place] [address] Nurse Practitioner Family Medicine 04/01/23 Loss Prevention Detective Relationship Specialty Start Date End Date Chris Pelaez MD [address] [place] [address] PCP - General Family Medicine 04/01/23 Elive Greer NP [address] [place] [address] Nurse Practitioner Family Medicine 04/01/23 Loss Prevention Detective Relationship Specialty Start Date End Date Chris Pelaez MD [address] [place] [address] PCP - General Family Medicine 04/01/23 Elvie Greer NP [address] [place] [address] Nurse Practitioner Family Medicine 04/01/23 Loss Prevention Detective Relationship Specialty Start Date End Date Chris Pelaez MD [address] [place] [address] PCP - General Family Medicine 04/01/23 Elvie Greer NP [address] [place] [address] Nurse Practitioner Family Medicine 04/01/23 Loss Prevention Detective Relationship Specialty Start Date End Date Chris Pelaez MD [address] [place] [address] PCP - General Family Medicine 04/01/23 Elvie Greer NP [address] [place] [address] Nurse Practitioner Family Medicine 04/01/23 Loss Prevention Detective Relationship Specialty Start Date End Date Chris Pelaez MD [address] [place] [address] PCP - General Family Medicine 04/01/23 Elvie Greer NP [address] [place] [address] Nurse Practitioner Family Medicine 04/01/23 Loss Prevention Detective Relationship Specialty Start Date End Date Chris Pelaez MD [address] [place] [address] PCP - General Family Medicine 04/01/23 Elvie Greer NP [address] [place] [address] Nurse Practitioner Family Medicine 04/01/23 Loss Prevention Detective Relationship Specialty Start Date End Date Chris Pelaez MD [address] [place] [address] PCP - General Family Medicine 04/01/23 Elvie Greer NP [address] [place] [address] Nurse Practitioner Family Medicine 04/01/23 Loss Prevention Detective Relationship Specialty Start Date End Date Chris Pelaez MD [address] [place] [address] PCP - General Family Medicine 04/01/23 Elvie Greer NP [address] [place] [address] Nurse Practitioner Family Medicine 04/01/23 Loss Prevention Detective Relationship Specialty Start Date End Date Chris Pelaez MD [address] [place] [address] PCP - General Family Medicine 04/01/23 Elvie Greer NP [address] [place] [address] Nurse Practitioner Family Medicine 04/01/23 Loss Prevention Detective Relationship Specialty Start Date End Date Chris Pelaez MD [address] [place] [address] PCP - General Family Medicine 04/01/23 Elvie Greer NP [address] [place] [address] Nurse Practitioner Family Medicine 04/01/23 Loss Prevention Detective Relationship Specialty Start Date End Date Chris Pelaez MD [address] [place] [address] PCP - General Family Medicine 04/01/23 Elvie Greer NP [address] [place] [address] Nurse Practitioner Family Medicine 04/01/23 Loss Prevention Detective Relationship Specialty Start Date End Date Chris Pelaez MD [address] [place] [address] PCP - General Family Medicine 04/01/23 Elvie Greer NP [address] [place] [address] Nurse Practitioner Family Medicine 04/01/23 Loss Prevention Detective Relationship Specialty Start Date End Date Chris Pelaez MD [address] [place] [address] PCP - General Family Medicine 04/01/23 Elvie Greer NP [address] [place] [address] Nurse Practitioner Family Medicine 04/01/23 Loss Prevention Detective Relationship Specialty Start Date End Date Chris Pelaez MD [address] [place] [address] PCP - General Family Medicine 04/01/23 Elvie Greer NP [address] [place] [address] Nurse Practitioner Family Medicine 04/01/23 Loss Prevention Detective Relationship Specialty Start Date End Date Chris Pelaez MD [address] [place] [address] PCP - General Family Medicine 04/01/23 Elvie Greer NP [address] [place] [address] Nurse Practitioner Family Medicine 04/01/23 Loss Prevention Detective Relationship Specialty Start Date End Date Chris Pelaez MD [address] [place] [address] PCP - General Family Medicine 04/01/23 Elvie Greer NP [address] [place] [address] Nurse Practitioner Family Medicine 04/01/23 Loss Prevention Detective Relationship Specialty Start Date End Date Chris Pelaez MD [address] [place] [address] PCP - General Family Medicine 04/01/23 Elvie Greer NP [address] [place] [address] Nurse Practitioner Family Medicine 04/01/23 Loss Prevention Detective Relationship Specialty Start Date End Date Chris Pelaez MD [address] [place] [address] PCP - General Family Medicine 04/01/23 Elvie Greer NP [address] [place] [address] Nurse Practitioner Family Medicine 04/01/23 Goals (unrecognized [...] BE BASED ON THE PRIMARY CLINICAL RECORDS. [employer] [facility]. provides no warranty or guarantee of the accuracy or completeness of information in this document.
[2024-05-10 12:10] LABS: Estimated Average Glucose 108 mg/dL; Glycohemoglobin A1C 5.4 % (4.5-6.2)
[2024-05-10 13:02] LABS: Free T4 0.78 ng/dL (0.76-1.46)
[2024-05-10 13:07] LABS: Alanine Aminotransferase 21 U/L (14-59); Albumin Level 3.5 g/dL (3.4-5.0); Alkaline Phosphatase 80 U/L (46-116); Anion Gap 11.4; Aspartate Amino Transferase 17 U/L (15-37); BUN Creatinine Ratio 9.4; Bilirubin Total 0.8 mg/dL (0.2-1.0); Calcium 9.1 mg/dL (8.5-10.1); Carbon Dioxide 27.9 mmol/L (21.0-32.0); Chloride 105 mmol/L (98-107); Chol HDL Ratio 2.4; Cholesterol 193 mg/dL (<=200); Estimated GFR (African America >60 (>=60 mL/min/1.73m^2); Estimated GFR (Non-African Ame >60 (>=60 mL/min/1.73m^2); Globulin 3.6 g/dL; Glucose 85 mg/dL (74-106); HDL Cholesterol 81 mg/dL (40-60); Magnesium 1.6 mg/dL (1.8-2.4); Potassium 4.3 mmol/L (3.5-5.1); Sodium 140 mmol/L (136-145); Thyroid Stimulating Hormone 3.547 uIU/mL (0.358-3.740); Total Protein 7.1 g/dL (6.4-8.2); Triglycerides 51 mg/dL (<=150); VLDL CHOLESTEROL 10.2 mg/dL
== END 2024-05-10 11:36 | disposition home or self-care (01) ==
LOC: LAB 11:38
PROVIDERS: PCP Nurse Practitioner; Visit Provider Nurse Practitioner
DX: J45.30 Mild persistent asthma, uncomplicated (principal); E06.3 Autoimmune thyroiditis; E66.01 Morbid (severe) obesity due to excess calories; K21.9 Gastro-esophageal reflux disease without esophagitis; F41.9 Anxiety disorder, unspecified; F32.A Depression, unspecified; E83.42 Hypomagnesemia; R73.09 Other abnormal glucose
CPT/HCPCS: 36415; 80053; 80061; 83036; 83735; 84439; 84443; 85025

== ENCOUNTER 2024-05-30 12:22 | Outpatient (REF) | payer OTHER, SELFPAY | END 2024-05-30 12:23 | disposition home or self-care (01) | LOC: LAB 12:22 | PROVIDERS: PCP Nurse Practitioner; Visit Provider Obstetrics & Gynecology | DX: Z01.419 Encounter for gynecological examination (general) (routine) without abnormal findings (principal) | CPT/HCPCS: 88175 ==

== ENCOUNTER 2024-06-27 08:49 | Outpatient (OUT) | payer OTHER, SELFPAY ==
[2024-06-27 09:43] LABS: Anion Gap 12.3; BUN Creatinine Ratio 11.9; Calcium 8.9 mg/dL (8.5-10.1); Carbon Dioxide 29.5 mmol/L (21.0-32.0); Chloride 104 mmol/L (98-107); Estimated GFR (African America >60 (>=60 mL/min/1.73m^2); Estimated GFR (Non-African Ame >60 (>=60 mL/min/1.73m^2); Glucose 89 mg/dL (74-106); Magnesium 1.7 mg/dL (1.8-2.4); Potassium 3.8 mmol/L (3.5-5.1); Sodium 142 mmol/L (136-145)
== END 2024-06-27 08:50 | disposition home or self-care (01) ==
LOC: CARD 08:51
PROVIDERS: PCP Nurse Practitioner; Visit Provider Nurse Practitioner
DX: R00.2 Palpitations (principal)
CPT/HCPCS: 36415; 80048; 83735; 93242

== ENCOUNTER 2024-07-11 12:30 | Outpatient (OUT) | payer OTHER, SELFPAY ==
[2024-07-11 13:39] LABS: Magnesium 1.8 mg/dL (1.8-2.4); Thyroid Stimulating Hormone 3.998 uIU/mL (0.358-3.740)
[2024-07-11 13:41] LABS: Free T4 1.05 ng/dL (0.76-1.46)
== END 2024-07-11 12:31 | disposition home or self-care (01) ==
LOC: LAB 12:32
PROVIDERS: PCP Nurse Practitioner; Visit Provider Nurse Practitioner
DX: E03.9 Hypothyroidism, unspecified (principal); E83.42 Hypomagnesemia
CPT/HCPCS: 36415; 83735; 84439; 84443

== ENCOUNTER 2024-08-29 08:39 | Outpatient (OUT) | payer OTHER, SELFPAY ==
--- OUTSIDE RECORDS SUMMARY | 2024-08-29 08:42 | XMS_ITS | Encounter Summary ---
Author Organization [facility] Address [address] [place] [address] Care Team Providers Care Behavioral Health Tech Name Role Phone Unavailable Primary Care Provider Unavailabl e Source Comments In the event this information is protected by the Federal Confidentiality of Alcohol and Drug AbusePatient Records regulations: The Federal rules restrict any use of the information to criminally investigate or prosecute any alcohol or drug abuse patient.[facility] Reason for Visit * Reason Comments Received Outside Medical Records Encounter Details Date Type Department Care Team (Late st Contact Info) Description 10/06/2023 Telephone [facility] [place] [address] [place] [address] [place] [address] [place] [id number] Received Outside Medical Records Social History Tobacco Use Types Packs/Day Years Used Date Smoking Tobacco: Never Assessed Comments Unknown Sex and Gender Information Value Date Recorded Sex Assigned at Not on file Legal Sex Female 8:55 AM EST Gender Identity Not on file Sexual Orientation Not on file documented as of this encounter Miscellaneous Notes * Telephone Encounter - Cecelia Boles - 10/06/2023 3:25 PM EDT Patient has been identified by name and date of : Yes Form received via: Fax Outside Orthopedic Medical records received from [facility] Form has been forwarded to: Scanned to Chart for review Cecelia Boles documented in this encounter Plan of Treatment Not on file documented as of this encounter Visit Diagnoses Not on filedocumented in this encounter
--- OUTSIDE RECORDS SUMMARY | 2024-08-29 08:42 | XMS_ITS | Encounter Summary ---
Author Organization [facility] Address [address] [place] [address] Care Team Providers Care Terminal Computer Operator Name Role Phone Elvie Greer ACCOUNTING MANAGER ASSISTANT CONTROLLER Unavailable [phone] Chris Pelaez MD Primary Care Provider Encounter Details Date Type Department Care Team (Late st Contact Info) Description 01/25/2024 Orders Only [facility] [address] [place] [address] Elvie Greer, JONN [address] [place] [address] Social History Tobacco Use Types Packs/Day Years Used Date Smoking Tobacco: Never Smokeless Tobacco: Never Alcohol Use Standard Drinks/Week Comments Never 0 (1 standard drink = 0.6 oz pur e alcohol) Humiliation, Afraid, Rape, and Kick questionnair e Answer Date Recorded Within the last year, have y ou been afraid of your partner or ex-partner? No 04/06/2023 Within the last year, have y ou been humiliated or emotionally abused in other ways by your partner or ex-partner? No Within the last year, have y ou been kicked, hit, slapped, or otherwise physically hurt by your partner or ex-partner? No 04/06/2023 Within the last year, have y ou been raped or forced to have any kind of sexual activity by your partner or ex-partner? No 04/06/2023 Social Connection and Isolat ion Panel [NHANES] Answer Date Recorded In a typical week, how many times do you talk on the phone with family, friends, or neighbors? More than three times a week 04/06/2023 How often do you get togethe r with friends or relatives? Twice a week 04/06/2023 How often do you attend chur ch or jainism services? Never 04/06/2023 Do you belong to any clubs o r organizations such as rastafari groups, unions, fraternal or athletic groups, or school groups? Yes 04/06/2023 How often do you attend meet ings of the clubs or organizations you belong to? Never 04/06/2023 Are you , , di vorced, , never , or living with a partner? 04/06/2023 AUDIT-C Answer Date Recorded Q1: How often do you have a drink containing alcohol? Never 04/06/2023 Q2: How many drinks containi ng alcohol do you have on a typical day when you are drinking? Patient does not drink Q3: How often do you have si x or more drinks on one occasion? Never 04/06/2023 Overall Financial Resource Strain (CARDIA) Answe r Date Recorded How hard is it for you to pa y for the very basics like food, housing, medical care, and heating? Not hard at all 04/06/2023 PHQ-2 Answer Date Recorded Patient Health Questionnaire-2 Score 0 08/31/2023 [facility] Questionnaire Answer Date Recorded Do you feel stress - tense, restless, nervous, or anxious, or unable to sleep at night because your mind is troubled all the time - these days? Very much 04/06/2023 Exercise Vital Sign Answer Date Recorde d On average, how many days pe r week do you engage in moderate to strenuous exercise (like a brisk walk)? 5 days 04/06/2023 On average, how many minutes do you engage in exercise at this level? 70 min 04/06/2023 Hunger Vital Sign Answer Date Recorded Within the past 12 months, y ou worried that your food would run out before you got the money to buy more. Patient declined Within the past 12 months, t he food you bought just didn't last and you didn't have money to get more. Patient declined PRAPARE - Transportation Answer Date Re corded In the past 12 months, has l ack of transportation kept you from medical appointments or from getting medications? No 03/10 In the past 12 months, has l ack of transportation kept you from meetings, work, or from getting things needed for daily living? No 04/06/2023 Housing Stability Vital Sign Answer Albert e Recorded In the last 12 months, was t here a time when you were not able to pay the mortgage or rent on time? No 04/06/2023 In the last 12 months, how many places have you lived? 1 04/06/2023 In the last 12 months, was t here a time when you did not have a steady place to sleep or slept in a [place] (including now)? No 04/06/2023 Comments Unknown Sex and Gender Information Value Date Recorded Sex Assigned at Not on file Legal Sex Female 6:44 PM EDT Gender Identity Female 03/31/2023 2:50 PM EST Sexual Orientation Not on file documented as of this encounter Plan of Treatment Upcoming Encounters Date Type Department Care Team (Late st Contact Info) Description 09/07/2024 11:00 AM EDT Office Visit [facility] [address] [place] [address] [place] [id number] Arnaud Cordova MD [address] [address] 09/11/2024 8:10 AM EDT Office Visit [facility] [address] [place] [address] Javier Morales, [address] [place] [address] 10/10/2024 2:00 PM EDT Office Visit [facility] [address] [place] [address] Elvie Greer NP [address] [place] [address] 02/22/2025 1:15 PM EST Office Visit [facility] [address] [place] [id number] Tani Pimentel, [address] [place] [address] 06/05/2025 11:00 AM EDT Office Visit [facility] [address] [place] [address] Javier Morales, DO [address] [place] [address] documented as of this encounter Procedures Procedure Name Priority Date/Time Associated Diagnosis Comments SCANNED LABS Routine 01/25/2024 1:58 PM EST XR CHEST 2 VIEWS Routine 01/25/2024 10:26 AM EST documented in this encounter Results * SCANNED LABS (01/25/2024 1:58 PM EST) us Tani Pimentel DO LAB CHG PERFORMABLES Final R esult * XR chest 2 views (01/25/2024 10:26 AM EST) Anatomical Region Laterality Modality Chest Radiographic Hollie ging Elvie Greer ACCOUNTING MANAGER ASSISTANT CONTROLLER IMG XR PROCEDURES Final Result documented in this encounter Visit Diagnoses Not on filedocumented in this encounter Care Teams Terminal Computer Operator Relationship Specialty Start Date End Date Chris Pelaez MD [address] [place] [address] PCP - General Family Medicine 04/01/23 Elvie Greer NP [address] [place] [address] Nurse Practitioner Family Medicine 04/01/23 documented as of this encounter
--- OUTSIDE RECORDS SUMMARY | 2024-08-29 08:42 | XMS_ITS | Clinical Summary ---
Author Organization [facility] Address [address] [place] [address] Care Team Providers Care Putaway Driver Name Role Phone Percy Elvie CLIENT ADVISOR Unavailable [phone] Chris Pelaez MD Primary Care Provider [phone] Allergies Active Allergy Reactions Criticality Noted Date Comments Antihistamines, Diphenhydramine-Type 04/01/2023 Diphenhydramine Hives,Itching,Rash,U nkn own Low 08/09/2019 Latex Hives,Itching,Rash,U nkn own Low 08/09/2019 Prednisone 04/01/2023 Medications Potassium 99 MG tablet 1 (one) time each day at the same time Active albuterol HFA 90 mcg/act inhalerIndication s:Moderate persistent asthma without complication (HCC) Inhale 2 puffs every 6 (six) hours if needed for shortness of breath or wheezing 18 g 4 Active budesonide-formot susan (Symbicort) 160-4.5 MCG/ACT inhalerIndication s:Moderate persistent asthma without complication (HCC) Inhale 2 puffs in the morning and 2 puffs before bedtime. Rinse mouth with water after use to reduce aftertaste and incidence of candidiasis. Do not swallow.. 30.6 g 1 5 Active buPROPion XL (Wellbutrin XL) 300 MG 24 hr tabletIndications :Anxiety and depression Take 1 tablet (300 mg) by mouth in the morning. 90 tablet 1 5 Active famotidine (Pepcid) 20 MG tabletIndications :Gastroesophageal reflux disease, unspecified whether esophagitis present Take 1 tablet (20 mg) by mouth at bedtime 90 tablet 1 5 Active montelukast (Singulair) 10 MG tabletIndications :Moderate persistent asthma without complication (HCC) Take 1 tablet (10 mg) by mouth at bedtime 90 tablet 1 5 Active pantoprazole (ProtoNix) 40 MG EC tabletIndications :Gastroesophageal reflux disease, unspecified whether esophagitis present Take 1 tablet (40 mg) by mouth in the morning. Take before meals. Do not crush, chew, or split.. 90 tablet 1 5 Active hydrOXYzine pamoate (Vistaril) 25 MG capsuleIndication s:Anxiety and depression Take 1 capsule (25 mg) by mouth every 8 (eight) hours if needed for itching 90 capsule 1 5 Active levothyroxine (Synthroid, Levoxyl) 100 MCG tabletIndications :Hypothyroidism, unspecified type Take 1 tablet (100 mcg) by mouth in the morning. Take before meals. 90 tablet 5 025 Active estradiol (Climara) 0.05 MG/24HRIndication s:Hormone disorder Place 1 patch over 7 days on the skin 1 (one) time per week 12 patch 3 5 026 Active progesterone (Prometrium) 100 MG capsuleIndication s:Hormone disorder Take 1 capsule (100 mg) by mouth Daily 90 capsule 3 5 025 Active celecoxib (CeleBREX) 200 MG capsule Take 200 mg by mouth Daily 5 Active triamcinolone (Nasacort) 55 MCG/ACT nasal inhalerIndication s:Moderate persistent asthma, uncomplicated (HCC) Administer 2 sprays into each nostril Daily 50.7 mL 1 5 025 magnesium oxide (Mag-Ox) 400 (240 Mg) MG tabletIndications :Hypomagnesemia Take 1 tablet (400 mg) by mouth in the morning and 1 tablet (400 mg) before bedtime. 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 Ventricular arrhythmia 08/03/2024 Assessment & Plan (08/08/2024 6:58 AM EDT): Noted on holter Check stress test and ECHO Send to cardiology Heart palpitations 06/20/2024 Assessment & Plan (08/08/2024 6:58 AM EDT): Reviewed holter Will check stress test and ECHO and refer to cardiology Assessment & Plan (06/20/2024 3:43 PM EDT): Check labs: basic and mg Holter 7 days Hypothyroid 05/09/2024 Assessment & Plan (05/09/2024 6:06 AM EST): Current med: levothyroxine Check labs yearly, and prn changes in dose or changes in symptoms Other constipation 05/09/2024 Assessment & Plan (06/20/2024 7:11 AM EDT): At last appt, we recommended: Water 64 oz daily, miralax, high fiber foods, and stool softener Assessment & Plan (05/09/2024 9:08 AM EST): Water 64 oz daily Add miralax and stool softener Higher fiber foods Fu in 6 weeks to see if better Status post right knee replacement 02/22/2024 Difficulty walking 02/22/2024 Mild persistent asthma without complication 05/2023 Assessment & Plan (05/09/2024 6:05 AM EST): Symbicort for maintenance, signulair, as well as albuterol prn Assessment & Plan (02/08/2024 6:14 AM EST): Symbicort for maintenance, signulair, as well as albuterol prn Is UTD on flu shot as well Morbid (severe) obesity due to excess calories 1 04/10/2023 Assessment & Plan (08/08/2024 6:59 AM EDT): Discussed with patient their BMI (actual, verses recommended). We have also discussed lifestyle modifications: attempts to perform physical activity as chronic conditions allow, also to monitor dietary intake: increasing protein/fruits/veggies and lowering carb intake (unless contraindicated). Limit sodas, juices, and sugary drinks. Was at 326 in 10/29 Assessment & Plan (06/20/2024 7:11 AM EDT): Discussed with patient their BMI (actual, verses recommended). We have also discussed lifestyle modifications: attempts to perform physical activity as chronic conditions allow, also to monitor dietary intake: increasing protein/fruits/veggies and lowering carb intake (unless contraindicated). Limit sodas, juices, and sugary drinks. Was at 326 in 10/29 Assessment & Plan (05/09/2024 8:51 AM EST): Discussed with patient their BMI (actual, verses [...] KETO diet, does report she feels better Assessment & Plan (02/08/2024 8:42 AM EST): Discussed with patient their BMI (actual, verses recommended). We have also discussed lifestyle modifications: attempts to perform physical activity as chronic conditions allow, also to monitor dietary intake: increasing protein/fruits/veggies and lowering carb intake (unless contraindicated). Limit sodas, juices, and sugary drinks. Was at 326 in 10/29, now down 30 pounds, doing KETO diet, does report she feels better Encounter for screening mamm ogram for malignant neoplasm of breast 02/08/2024 Assessment & Plan (02/08/2024 8:50 AM EST): Is already scheduled for 2024 Ventral hernia without obstruction or gangrene 0 08/31/2023 Assessment & Plan (08/31/2023 9:58 AM EDT): No acute symptoms at this time Body mass index (BMI) 45.0-49.9, adult Assessment & Plan (11/09/2023 2:40 PM EDT): Doing well Arthritis of knee, right 04/01/2023 Assessment & Plan (02/08/2024 8:48 AM EST): Is scheduled for TKA right knee, 02/21/24 Assessment & Plan (11/09/2023 2:45 PM EDT): Continue with ortho and weight loss Will refer to rheum for evaluation as well Assessment & Plan (09/30/2023 9:45 AM EDT): Go back to ortho Assessment & Plan (06/29/2023 10:09 AM EDT): Continue with ortho Anxiety and depression 04/01/2023 Assessment & Plan (08/08/2024 6:59 AM EDT): Current meds: wellbutrin and uses prn vistaril Assessment & Plan (05/09/2024 9:07 AM EST): Current meds: wellbutrin and uses prn vistaril PHQ 9=6 SONYA 7=6 No change in meds Assessment & Plan (02/08/2024 8:48 AM EST): Currently taking buproprion XL, vistaril prn No changes in doses of meds Assessment & Plan (11/09/2023 2:40 PM EDT): Doing well on current meds Assessment & Plan (08/31/2023 10:00 AM EDT): Continue current meds no change in dose Assessment & Plan (06/29/2023 10:07 AM EDT): Doing well on current meds no changes Assessment & Plan (05/18/2023 9:50 AM EDT): Would like to increase dose on wellbutrin XL Fu in 6 weeks Assessment & Plan (04/13/2023 11:41 AM EST): Will restart her wellbutrin as well as vistaril prn anxiety Take medication only as directed. This medication will take approximately 4-6 weeks to become effective. If any suicidal thoughts, thoughts of hurting others, or hallucinations contact the office or proceed to the Emergency Room for mental health evaluation. Medication may cause dry mouth, dizziness, and in some cases worsening in depression symptoms. Please contact the office if these occur. Has an upcoming appt for counseling No active suicide thoughts today Elevated glucose 04/01/2023 Assessment & Plan (05/09/2024 6:08 AM EST): In the past, will check a1c GERD (gastroesophageal reflux disease) Assessment & Plan (08/08/2024 6:58 AM EDT): Continue with PPI Recommendations: freq small meals, nothing to eat or drink at least 2 hours prior to bed, limit caffeine, alcohol, as well as spicy foods Meds to limit or avoid if possible: NSAIDS Elevate HOB if possible Current med: pantoprazole, famotidine Assessment & Plan (06/20/2024 7:10 AM EDT): Continue with PPI Recommendations: freq small meals, nothing to eat or drink at least 2 hours prior to bed, limit caffeine, alcohol, as well as spicy foods Meds to limit or avoid if possible: NSAIDS Elevate HOB if possible Current med: pantoprazole, famotidine Assessment & Plan (05/09/2024 9:07 AM EST): Continue with PPI Recommendations: freq small meals, nothing to eat or drink at least 2 hours prior to bed, limit caffeine, alcohol, as well as spicy foods Meds to limit or avoid if possible: NSAIDS Elevate HOB if possible Current med: pantoprazole, famotidine Assessment & Plan (02/08/2024 8:47 AM EST): Continue with PPI Recommendations: freq small meals, nothing to eat or drink at least 2 hours prior to bed, limit caffeine, alcohol, as well as spicy foods Meds to limit or avoid if possible: NSAIDS Elevate HOB if possible Continue with weight loss Assessment & Plan (09/30/2023 9:45 AM EDT): Possible dysphagia is d/t GERD or laryngeal refflux We will stop her omeprazole and trial Pantoprazole And add pepcid 20mg HS Fu in 6 weeks Freq small meals, no eat /drink 2 hours prior to HS Assessment & Plan (08/31/2023 9:59 AM EDT): Continue with use of PPI, is unable to tolerate being off of meds Hair loss 04/01/2023 Hypomagnesemia 04/01/2023 Assessment & Plan (06/20/2024 3:44 PM EDT): Check magnesium Assessment & Plan (05/10/2024 7:52 PM EST): Takes PPI, recommend periodic monitoring Assessment & Plan (05/09/2024 6:09 AM EST): Takes PPI, recommend periodic monitoring Leg cramps 04/01/2023 Liver function abnormality 04/01/2023 Painful lumpy right breast 04/01/2023 Psoriasis 04/01/2023 Assessment & Plan (02/08/2024 8:57 AM EST): Needs refill of triamcinolone 0.1% ointment, also saw Rheumatology, considering treatment in the future Assessment & Plan (11/09/2023 2:41 PM EDT): Will send to Rheumatology for evaluation for psoriatic arthritis Acute postoperative pain of right knee Assessment & Plan (05/18/2023 10:00 AM EDT): Cont with PT and pain mgmt, explained since she is under their care, any further tramadol scripts would need to come from them Assessment & Plan (04/13/2023 11:35 AM EST): Has been following with ortho, had an injection about a week ago, not a lot of help Ibuprofen better than meloxicam Asking for tramadol for severe pain Resolved Problems Problem Noted Date Diagnosed Date Resolved Date Cellulitis 08/31/2023 11/09/2023 Assessment & Plan (08/31/2023 10:01 AM EDT): Finish atb Fu in 3 weeks for recheck Consider evaluation for venous insuffiency as well 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/29/2023 03/0 06/2024 Assessment & Plan (02/08/2024 6:15 AM EST): Currently taking levo at 75mcg daily Labs yearly and as needed based on change in symptoms or change med dose Assessment & Plan (11/09/2023 2:40 PM EDT): Bump up dose thyroid to 75mcg Recheck labs in 8 weeks Assessment & Plan (08/31/2023 10:00 AM EDT): Recent adjustment in levo dose up to 50mcg, recheck labs in 8 weeks Reviewed thyroid US results Fu in 3 months Abnormal TSH 05/18/2023 11/09/2023 Assessment & Plan (05/18/2023 9:50 AM EDT): Recheck labs in mid August 2023 Non-recurrent acute suppurat keren otitis media of left ear without spontaneous rupture of tympanic membrane 05/18/2023 11/09/2023 Assessment & Plan (05/18/2023 10:02 AM EDT): Likely related to allergy/sinus component Cont current meds, add atb, fu if not better Internal derangement of right knee 04/01/2023 09/30/2023 Borderline abnormal thyroid function test 04/01/2023 11/09/2023 Intermittent asthma without complication 04/01/2023 02/08/2024 Moderate persistent asthma w ithout complication 04/01/2023 02/08/2024 Assessment & Plan (09/30/2023 9:43 AM EDT): Continue current meds She is rinsing mouth out after use as well Assessment & Plan (08/31/2023 9:58 AM EDT): Continue ICS/LABA and singulair Doing well Assessment & Plan (04/13/2023 11:34 AM EST): Restart LABA/ICS and singlair as well Umbilical hernia 04/01/2023 08/31/2023 Acute medial meniscal tear 04/01/2023 0 09/30/2023 History of knee problem 03/27/2020 09/0 05/2023 Encounters Date Type Department Care Team Description 08/08/2024 2:20 PM EDT Office Visit [facility] [address] [place] [address] Elvie Greer NP Heart palpitations (Primary Dx); Ventricular arrhythmia; Gastroesophageal reflux disease, unspecified whether esophagitis present; Morbid (severe) obesity due to excess calories ([facility]); Anxiety and depression ; Environmental and seasonal allergies; Moderate persistent asthma without complication (HCC) 08/08/2024 Bamboo flowsheet [facility] [address] [place] [address] Elvie Greer NP 08/07/[address] [address] [place] [address] Tien Morales DO 08/07/2024 Orders Only [facility] [address] [place] [address] Maura Greera, CLIENT ADVISOR 08/03/2024 11:40 AM EDT Office Visit [facility] [address] [place] [address] Tien Morales, Hormone disorder 08/03/2024 Orders Only [facility] [address] [place] [address] Maura Greera, CLIENT ADVISOR Heart palpitations (Primary Dx); Ventricular arrhythmia 08/03/2024 Orders Only [facility] [address] [place] [address] Elvie Greer, CLIENT ADVISOR Heart palpitations (Primary Dx); Morbid (severe) obesity due to excess calories ([facility]); Ventricular arrhythmia; Abnormal electrocardiogram (ECG) (EKG) 08/03/2024 Orders Only [facility] [address] [place] [address] Maura Greera, CLIENT ADVISOR 07/27/2024 Telephone [facility] [address] [place] [address] Percy Elvie, CLIENT ADVISOR 07/24/2024 Telephone [facility] [address] [place] [address] Maura Greera, CLIENT ADVISOR 07/12/[address] [address] [place] [address] Tien Morales DO 07/12/2024 Refill [facility] [address] [place] [address] Elvie Greer, CLIENT ADVISOR Hypothyroidism, unspecified type (Primary Dx) 07/12/2024 Telephone [facility] [address] [place] [address] Maura Greera, CLIENT ADVISOR 07/11/2024 Clinisync Result Encounter [facility] External Department Unsolicited Elvie Greer NP 07/03/2024 Telephone [facility] [address] [place] [phone] Elvie Greer NP 06/27/2024 Refill [facility] [address] [place] [address] Elvie Greer NP Hypomagnesemia (Primary Dx) 06/27/2024 Clinisync Result Encounter [facility] External Department Unsolicited Elvie Greer NP 06/22/2024 3:45 PM EDT Office Visit [facility] [address] [place] [address] Tani Pimentel DO Aftercare following right knee joint replacement surgery (Primary Dx) 06/22/2024 11:05 AM EDT Ancillary Procedure [facility] [address] [place] [phone] 06/22/2024 Travel 06/22/2024 Telephone [facility] [address] [place] [address] Elvie Greer NP 06/20/2024 2:40 PM EDT Office Visit [facility] [address] [place] [address] Elvie Greer NP Heart palpitations (Primary Dx); Gastroesophageal reflux disease, unspecified whether esophagitis present; Morbid (severe) obesity due to excess calories ([facility]); Hypomagnesemia 06/20/2024 Bamboo flowsheet [facility] [address] [place] [phone] Elvie Greer NP 06/09/2024 Refill [facility] [address] [place] [address] Elvie Greer NP Anxiety and depression 06/09/2024 Orders Only [facility] [address] [place] [address] Faiza Pacheco MA 05/30/2024 10:00 AM EDT Office Visit [facility] [address] [place] [address] Tien Morales DO Well woman exam with routine gynecological exam; Encounter for screening mammogram for malignant neoplasm of breast 05/30/2024 Clinisync Result Encounter [facility] External Department Unsolicited Provider, Generic External Data 05/30/2024 Bamboo flowsheet [facility] [address] [place] [address] Tien Morales, from Last 3 Months Immunizations Immunization Administration Dates Next Due Influenza, injectable, quadrivalent, preservativ e free 10/29/2022 Influenza, seasonal, injectable, preservative fr ee 12/22/2023 Family History Medical History Relation Name Comments ADD / ADHD Brother Asthma Father Zeferino Britt Asthma Mother Susy britt Diabetes Mother Susy britt Osteoarthritis Mother Susy britt Cancer Other grandmother grandfather Bon e cancer Lymphoma Other grandmother Asthma Sister Ana [place] Relation Name Status Comments Brother Father Zeferino Britt Mother Susy britt Alive Other grandmother Sister Ana Guptaeport Social History Tobacco Use Types Packs/Day Years [...] often do you attend chur ch or mosque services? Never 04/06/2023 Do you belong to any clubs o r organizations such as restoration groups, unions, fraternal or athletic groups, or [...] Recorded Patient Health Questionnaire-2 Score 0 08/31/2023 [facility] Answer Date [...] place to sleep or slept in a group home (including now)? No 04/06/2023 Comments Unknown Sex and Gender Information Value Date Recorded Sex Assigned at Not on file Legal Sex Female 6:44 PM EDT Gender Identity Female 03/31/2023 2:50 PM EST Sexual Orientation Not on file Last Filed Vital Signs Vital Sign Reading Time Taken Comments Blood Pressure 118/88 08/08/2024 2:25 PM EDT Pulse 88 08/08/2024 2:25 PM EDT Temperature 36.6 C (97.8 F) 08/08/2024 2:25 PM EDT Respiratory Rate 20 08/08/2024 2:25 PM EDT Oxygen Saturation 98% 08/08/2024 2:25 PM EDT Inhaled Oxygen Concentration - - Weight 133 kg (294 lb) 08/08/2024 2:25 PM EDT Height 167.6 cm (5' 6 ) 06/22/2024 4:08 PM EDT Body Mass Index 47.45 06/22/2024 4:08 PM EDT Plan of Treatment Upcoming Encounters Date Type Department Care Team (Late st Contact Info) Description 09/07/2024 11:00 AM EDT Office Visit [facility] [address] [place] [phone] Arnaud Cordova MD [address] [place] [address] 09/11/2024 8:10 AM EDT Office Visit [facility] [address] [facility] [address] [place] [phone] Tien Morales, DO [address] [place], [place] [phone] 10/10/2024 2:00 PM EDT Office Visit [facility] [address] [place] [address] Elvie Greer, CLIENT ADVISOR [address] [place] [address] 02/22/2025 1:15 PM EST Office Visit [facility] [address] [place] [phone] Tani Pimentel, DO [address] [place] [place] [address] 06/05/2025 11:00 AM EDT Office Visit [facility] [address] [facility] [address] [place] [phone] Tien Morales, DO [address] [address] Health Maintenance Due Date Last Done Comments Mammogram 04/18/2025 04/18/2024 Cervical Cancer Screening 05/30/2029 HPV/Cotest 05/30/2029 Pap Smear 05/30/2029 05/30/2024, 05/27/2023 Influenza Vaccine Completed 12/22/2023, 10/29/2022 Procedures Procedure Name Priority Date/Time Associated Diagnosis Comments CARD HOLTER MONITOR RECORDING Routine 08/07/2024 11:08 AM EDT CARD HOLTER MONITOR RECORDING Routine 08/03/2024 9:16 AM EDT ALL THYROXINE (T4) FREE Routine 07/11/2024 12:41 PM EDT ALL THYROID STIM HORMONE Routine 07/11/2024 12:41 PM EDT ALL MAGNESIUM Routine 07/11/2024 12:41 PM EDT ALL MAGNESIUM Routine 06/27/2024 9:24 AM EDT ALL BASIC METABOLIC PANEL Routine 06/27/2024 9:24 AM EDT XR KNEE 3 VIEWS RIGHT Routine 06/22/2024 11:01 AM EDT Aftercare following right knee joint replacement surgery IGP,APTIMA HPV,AGE GDLN Routine 05/30/2024 10:00 AM EDT PAP SMEAR Routine 05/30/2024 12:00 AM EDT MM TOMOSYNTHESIS SCREENING BI 04/18/2024 11:34 AM EST from Last 3 Months or Most Recently Relevant to Health Maintenance Results * CARD HOLTER MONITOR RECORDING (08/07/2024 11:08 AM EDT) Only the most recent of2 resultswithin the time period is included. Anatomical Region Laterality Modality Radiographic Hollie ging Elvie Greer NP IMG XR PROCEDURES Final Result * ALL THYROXINE (T4) FREE (07/11/2024 12:41 PM EDT) FREE T4 1.05 0.76 - 1.46 ng/dL TB 07/11/2024 12:4 1 PM EDT 07/11/2024 12:47 PM EDT Narrative CLINISYNC - 07/11/2024 1:41 PM EDT Elvie Greer NP CLINISYNC Final Result [facility] * (ABNORMAL) ALL THYROID STIM HORMONE (07/11/2024 12:41 PM EDT) THYROID STIMULATING HORMONE 3.998(H) 0.358 - 3.740 uIU/mL [facility] 07/11/2024 12:4 1 PM EDT 07/11/2024 12:47 PM EDT Narrative CLINISYNC - 07/11/2024 1:39 PM EDT Elvie Percy CLIENT ADVISOR CLINISYNC Final Result Performing Organization Address [facility] de Phone Number [facility] * ALL MAGNESIUM (07/11/2024 12:41 PM EDT) Only the most recent of2 resultswithin the time period is included. MAGNESIUM 1.8 1.8 - 2.4 mg/dL [facility] 07/11/2024 12:4 1 PM EDT 07/11/2024 12:47 PM EDT Narrative CLINISYNC - 07/11/2024 1:39 PM EDT Elvie Percy CLIENT ADVISOR CLINISYNC Final Result Performing Organization Address [facility] de Phone Number [facility] * ALL BASIC METABOLIC PANEL (06/27/2024 9:24 AM EDT) SODIUM 142 136 - 145 mmol/L [facility] POTASSIUM 3.8 3.5 - 5.1 mmol/L [facility] CHLORIDE 104 98 - 107 mmol/L [facility] CARBON DIOXIDE 29.5 21.0 - 32.0 mmol/L [facility] ANION GAP 12.3 [facility] GLUCOSE 89 74 - 106 mg/dL [facility] BLOOD UREA NITROGEN 8.0 7.0 - 18.0 mg/dL [facility] CREATININE 0.67 0.55 - 1.02 mg/dL TBH TBH EGFR-AF BRITISH >60 >=60 mL/min/1.7 3m 2 TBH TBH EGFR-NON AF BRITISH >60 >=60 mL/min/1.7 3m 2 TBH BUN CREATININE RATIO 11.9 TB[facility] CALCIUM 8.9 8.5 - 10.1 mg/dL [facility] 06/27/2024 9:24 AM EDT 06/27/2024 9:24 AM EDT Narrative CLINISYNC - 06/27/2024 9:44 AM EDT us Elvie Greer NP CLINISYNC Final Result CLINISYNC [facility] * XR knee 3 views right (06/22/2024 11:01 AM EDT) Anatomical Region Laterality Modality Lower Extremities, Knee Right Radiogra phic Imaging Narrative 06/22/2024 4:39 PM EDT Imaging Result: Xrays taken in the office today saved to the permanent record, AP, sunrise and lateral weightbearing films, show stable position and alignment of the right TKA prosthesis. No sign of loosening, fracture or infection. Tani Pimentel DO IMG XR PROCEDURES Edited Res ult - Final * IGP,APTIMA HPV,AGE GDLN (05/30/2024 10:00 AM EDT) AGE GDLN ACOG TESTING Note . [facility] Comment: TESTS RESULT FLAG UNITS REF RANGE LAB Clinician Provided Cytology Information Source.............Cervix;Endocervix No. of containers..01 ThinPrep Vial Age Theresa TRIMBLE Kathie... 30-65 FLAG LEGEND: L-Low Normal,H-High Normal,LL-Alert Low,HH-Alert High <-Panic Low,>-Panic High,A-Abnormal,AA-Critical Abnormal Performed at: 01 =G [facility] [address] [place] [address] Inna Cohen MD, IGP, APTIMA HPV, RFX 16/18,45 Note . [facility] Comment: TESTS RESULT FLAG UNITS REF RANGE LAB DIAGNOSIS: 02 NEGATIVE FOR INTRAEPITHELIAL LESION OR MALIGNANCY. Specimen adequacy: 02 Satisfactory for evaluation. Endocervical and/or squamous metaplastic cells (endocervical component) are present. Performed by: 02 Daysi Cheema, Construction Recruiter . 02 Note: Note 02 The Pap smear is a screening test designed to aid in the detection of premalignant and malignant conditions of the uterine cervix. It is not a diagnostic procedure and should not be used as the sole means of detecting cervical cancer. Both false-positive and false-negative reports do occur. Test Methodology: Note 02 This liquid based ThinPrep(R) pap test was screened with the use of an image guided system. HPV Genotype Reflex Note 02 Criteria not met, HPV Genotype not performed. FLAG LEGEND: L-Low Normal,H-High Normal,LL-Alert Low,HH-Alert High <-Panic Low,>-Panic High,A-Abnormal,AA-Critical Abnormal Performed at: 02 [facility] [address] [place] [address] Inna Cohen MD, HPV APTIMA Negative Negative [facility] Comment: This nucleic acid amplification test detects fourteen high- risk HPV types (16,18,31,33,35,39,45,51,52,56,58,59,66,68) without differentiation. Performed at: =[facility] [address] [id number] Liner Helper: Inna Cohen MD, Phone: [phone] Performed at: [facility] [address] [id number] Liner Helper: Inna Cohen MD, Phone: [phone] 05/30/2024 10:0 0 AM EDT 05/30/2024 1:10 PM EDT Narrative [facility] - 06/01/2024 10:15 AM EDT BRUSH-SPATULA CERVIX ENDOCERVIX Tien Morales DO LAB BLOOD ORDERABLES Final Resul t Performing Organization Address City/[facility]/ZIP Co de Phone Number [facility] * Pap Smear (05/30/2024 12:00 AM EDT) Swab Cervical swab / Unknown Tien Morales DO LAB CYTOLOGY ORDERABLES Final Re sult Performing Organization Address City/[facility] Co de Phone Number EXTERNAL LAB * MM TOMOSYNTHESIS SCREENING BI (04/18/2024 11:34 AM EST) Anatomical Region Laterality Modality Other 04/18/2024 11:3 4 AM EST Narrative 04/18/2024 11:35 [place] [address] Mammography Report Signed Patient: TEREZA NAVARRO MR#: [id number] : 1985 Acct:[id number] Age/Sex: 38 / F ADM Date: 04/18/24 Loc: MAMMO Attending Dr: Tien Morales D.O. Ordering Physician: Tien Morales D.O. Results: Date of Service: 04/18/24 Follow Up: Procedure(s): MM tomosynthesis screening BI Accession Number(s): [id number] cc: Elvie Greer NP; Tien Morales D.O. Patient Name: TEREZA NAVARRO MR#: [id number] : 1985 Exam Date: 04/18/2024 Ordering Doctor: DR TIEN MORALES . RADIOLOGY REPORT PROCEDURE: MM TOMOSYNTHESIS SCREENING BI COMPARISON: MG MAMM DIAGNOSTIC 3D ARELY CAD, 06/12/2020. INDICATIONS: Screening Calculator Name NCI Breast Cancer Risk Assessment Tool 5 Year Breast Cancer Risk Not Reported. Lifetime Breast Cancer Risk Not Reported. Personal Breast Cancer No Personal Ovarian Cancer No Treatments None Family Cancers None LOCATION: [facility] BREAST COMPOSITION: The breasts are extremely dense, [...] Signed By: 04/18/24 1135 DD/ 1134 TD/TT: A&P Mechanic: Procedure Note Radiology, Radiologist, - 04/18/2024 [place] [address] Mammography Report Signed Patient: TEREZA NAVARRO KMR#: [id number] : 1985Acct:[id number] Age/Sex: 38 / FADM Date: 04/18/24 Loc: MAMMO Attending Dr: Tien Morales D.O. Ordering Physician: Tien Morales D.O.Results: Date of Service: 04/18/24Follow Up: Procedure(s): MM tomosynthesis screening BI Accession Number(s): [id number] cc: Elvie Greer NP; Tien Morales D.O. Patient Name: TEREZA NAVARRO MR#: [id number] : 1985 Exam Date: 04/18/2024 Ordering Doctor: DR TIEN MORALES . RADIOLOGY REPORT PROCEDURE: MM TOMOSYNTHESIS SCREENING BI COMPARISON: MG MAMM DIAGNOSTIC 3D ARELY CAD, 06/12/2020. INDICATIONS: Screening Calculator Name NCI Breast Cancer Risk Assessment Tool 5 Year Breast Cancer Risk Not Reported. Lifetime Breast Cancer Risk Not Reported. Personal Breast Cancer No Personal Ovarian Cancer No Treatments None Family Cancers None LOCATION: [facility] BREAST COMPOSITION: The breasts are extremely dense, [...] NORMAL MAMMOGRAM DOES NOT EXCLUDE THE POSSIBILITY OFBREAST CANCER. A CLINICALLY SUSPICIOUS PALPABLE LUMP SHOULD BE BIOPSIED. Dictated by: Donnie Addison MD on 04/18/2024 at 11:32 Approved by: Donnie Addiosn MD on 04/18/2024 at 11:34 Dictated By: Donnie Addison M.D. Signed By:04/18/24 1135 DD/ 1134 TD/TT: A&P Mechanic: Tien Morales DO [facility] IMAGING Final Result from Last 3 Months or Most Recently Relevant to Health Maintenance Insurance [employer] Care Teams Putaway Driver Relationship Specialty Start Date End Date Chris Pelaez MD [address] [place] [address] PCP - General Family Medicine 04/01/23 Elvie Greer NP [address] [place] [address] Nurse Practitioner Family Medicine 04/01/23
--- OUTSIDE RECORDS SUMMARY | 2024-08-29 08:42 | XMS_ITS | Encounter Summary ---
Author Organization [facility] Address [address] [place] [address] Care Team Providers Care Shelver Name Role Phone Elvie Greer TAR AND AMMONIA PUMP OPERATOR Unavailable [phone] Chris Pelaez MD Primary Care Provider [phone] Encounter Details Date Type Department Care Team (Late st Contact Info) Description 07/02/2023 Orders Only [facility] [address] [place] [address] Elvie Greer NP [address] [facility] [place] [address] Social History Tobacco Use Types Packs/Day Years [...] often do you attend chur ch or pentecostalism services? Never 04/06/2023 Do you belong to any clubs o r organizations such as taoism groups, unions, fraternal or athletic groups, or [...] Date Recorded Patient Health Questionnaire-2 Score 0 06/29/2023 [facility] of Occupat ional [facility] - Occupational Stress Questionnaire Answer Date [...] place to sleep or slept in a fdc (including now)? No 04/06/2023 Comments Unknown Sex [...] Office Visit [facility] ALL [address] [place] [address] [place] [address] Arnaud Cordova MD [address] [address] 09/11/2024 8:10 AM EDT Office Visit [facility] B[facility] OB [address] [place] [address] Javier Morales, [address] [place] [address] 10/10/2024 2:00 PM EDT Office Visit [facility] CWM FM [address] [place] [address] Elvie Greer NP [address] [place] [address] 02/22/2025 1:15 PM EST Office Visit [facility] NB ORTHO [address] [place] [address] Tani Pimentel, DO [address] [place] [address] 06/05/2025 11:00 AM EDT Office Visit [facility] OB [address] [facility] [place] [address] Javier Morales, DO [address] [facility] [place] [address] documented as of this encounter Procedures Procedure Name Priority Date/Time Associated Diagnosis Comments US HEAD NECK SOFT TISSUE Routine 07/01/2023 8:37 AM EDT documented in this encounter Results * US head neck soft tissue (07/01/2023 8:37 AM EDT) Anatomical Region Laterality Modality Head, Neck Ultrasound us Elvie Greer NP IMG US PROCEDURES Final Result documented in this encounter Visit Diagnoses Not on filedocumented in this encounter Care Teams Shelver Relationship Specialty Start Date End Date Chris Pelaez MD [address] [place] [address] PCP - General Family Medicine 04/01/23 Elvie Greer NP [address] [place] [address] Nurse Practitioner Family Medicine 04/01/23 documented as of this encounter
--- OUTSIDE RECORDS SUMMARY | 2024-08-29 08:42 | XMS_ITS | Encounter Summary ---
Author Organization [facility] Address [address] [place] [address] Care Team Providers Care Kennel Assistant Name Role Phone Elvie Greer NP Unavailable [phone] Chris Pelaez MD Primary Care Provider [phone] Encounter Details Date Type Department Care Team (Late st Contact Info) Description 02/16/2024 Orders Only [facility] NB ORTHO [address] [place] [address] Tani Pimentel, [address] [facility] [place] [address] Right knee pain, unspecified chronicity (Primary Dx) Social History Tobacco Use Types Packs/Day Years [...] 04/06/2023 How often do you attend chur or anabaptist services? Never 04/06/2023 Do you belong to any clubs o r organizations such as sabianist groups, unions, fraternal or athletic groups, or [...] Recorded Patient Health Questionnaire-2 Score 0 08/31/2023 [facility] Questionnaire Answer Date [...] place to sleep or slept in a skilled nursing (including now)? No 04/06/2023 Comments Unknown Sex [...] [facility] ALL [address] [address] Arnaud Cordova MD [address] [address] 09/11/2024 8:10 AM EDT Office Visit [facility] BCP OB [address] [facility] [place] [address] Javier Morales DO [address] [facility] [place] [address] 10/10/2024 2:00 PM EDT Office Visit [facility] CWJama FM [address] [place] [address] Elvie Greer, JONN [address] [place] [address] 02/22/2025 1:15 PM EST Office Visit [facility] ORTHO [address] [place] [address] Tani Pimentel, DO [address] [place] [address] 06/05/2025 11:00 AM EDT Office Visit [facility] OB [address] [place] [address] Javier Morales, DO [address] [place], [place] [address] documented as of this encounter Visit Diagnoses Diagnosis Right knee pain, unspecified chronicity- Primary documented in this encounter Care Teams Kennel Assistant Relationship Specialty Start Date End Date Chris Pelaez MD [address] [place] [address] PCP - General Family Medicine 04/01/23 Elvie Greer NP [address] [place] [address] Nurse Practitioner Family Medicine 04/01/23 documented as of this encounter
--- OUTSIDE RECORDS SUMMARY | 2024-08-29 08:42 | XMS_ITS | Encounter Summary ---
Author Organization [facility] Address [address] [place] [address] Care Team Providers Care Foot Worker Name Role Phone Percy Elvie MISSION WORKER Unavailable [phone] Chris Pelaez MD Primary Care Provider [phone] Encounter Details Date Type Department Care Team (Late st Contact Info) Description 06/09/2024 Orders Only [facility] [address] [place] [address] Faiza Pacheco MA [address] [facility] [place] [address] Social History Tobacco Use Types Packs/Day Years [...] often do you attend chur ch or hindu services? Never 04/06/2023 Do you belong to any clubs o r organizations such as temple groups, unions, fraternal or athletic groups, or [...] Recorded Patient Health Questionnaire-2 Score 0 08/31/2023 [facility] of Occupat ional Health - Occupational Stress Questionnaire Answer Date Recorded [...] place to sleep or slept in a jail (including now)? No 04/06/2023 Comments Unknown Sex [...] Visit [facility] ALL [address] [address] Arnaud Cordova MD [address] [address] 09/11/2024 8:10 AM EDT Office Visit [facility] B[facility] OB [address] [place] [address] Javier Morales, DO [address] [place] [address] 10/10/2024 2:00 PM EDT Office Visit [facility] FM [address] [place] [address] Elvie Greer, JONN [address] [place] [address] 02/22/2025 1:15 PM EST Office Visit [facility] ORTH[facility] [address] [place] [address] Tani Pimentel, DO [address] [place] [address] 06/05/2025 11:00 AM EDT Office Visit [facility] [address] [facility] [place] [address] Javier Morales, DO [address] [facility] [address] [place], [place] [address] documented as of this encounter Procedures Procedure Name Priority Date/Time Associated Diagnosis Comments PAP SMEAR Routine 05/30/2024 12:00 AM EDT documented in this encounter Results * Pap Smear (05/30/2024 12:00 AM EDT) Swab Cervical swab / Unknown us Javier Morales DO LAB CYTOLOGY ORDERABLES Final Re sult EXTERNAL LAB documented in this encounter Visit Diagnoses Not on filedocumented in this encounter Care Teams Foot Worker Relationship Specialty Start Date End Date Chris Pelaez MD [address] [place] [address] PCP - General Family Medicine 04/01/23 Elvie Greer NP [address] [place] [address] Nurse Practitioner Family Medicine 04/01/23 documented as of this encounter
--- OUTSIDE RECORDS SUMMARY | 2024-08-29 08:42 | XMS_ITS | Encounter Summary ---
Author Organization [facility] Address [address] [place] [address] Care Team Providers Care Administrator Of Home Health Name Role Phone AmadorElvie francis STERILE PROCESSING MANAGER Unavailable [phone] Chris Pelaez MD Primary Care Provider Encounter Details Date Type Department Care Team (Late st Contact Info) Description 04/01/2023 Orders Only [facility] FM [address] [place] [address] Social History Tobacco Use Types Packs/Day Years Used Date Smoking Tobacco: Never Smokeless Tobacco: Never Alcohol Use Standard Drinks/Week Comments Never 0 (1 standard drink = 0.6 oz pur e alcohol) Comments Unknown Sex and Gender Information Value [...] Visit [facility] ALL [address] [facility] [address] [place] [address] Arnaud Cordova MD [address] [facility] [address] [place] [address] 09/11/2024 8:10 AM EDT Office Visit [facility] BCP [address] [place] [address] Javier Morales, DO [address] [facility] [place] [address] 10/10/2024 2:00 PM EDT Office Visit [facility] C[facility] FM [address] [place] [address] Elvie Greer, JONN [address] [place] [address] 02/22/2025 1:15 PM EST Office Visit [facility] ORTHO [address] [place] [address] Tani Pimentel, DO [address] [place] [address] 06/05/2025 11:00 AM EDT Office Visit [facility] BCP OB [address] [facility] [place] [address] Javier Morales, DO [address] [facility] [place] [address] documented as of this encounter Visit Diagnoses Not on filedocumented in this encounter Care Teams Administrator Of Home Health Relationship Specialty Start Date End Date Chris Pelaez MD [address] [place] [address] PCP - General Family Medicine 04/01/23 Elvie Greer, JONN [address] [place] [address] Nurse Practitioner Family Medicine 04/01/23 documented as of this encounter
--- OUTSIDE RECORDS SUMMARY | 2024-08-29 08:42 | XMS_ITS | Encounter Summary ---
Author Organization [facility] Address [address] [facility] [place] [address] Care Team Providers Care Accountant Bookkeeper Name Role Phone Elvie Greer NP Unavailable [phone] Chris Pelaez MD Primary Care Provider [phone] Encounter Details Date Type Department Care Team (Late st Contact Info) Description 04/28/2023 Abstract [facility] ORTHOPAEDICS [address] [place] [address] Vivek Dickinson [employer] [address] [place] [address] Social History Tobacco Use Types Packs/Day Years [...] often do you attend chur ch or sikh services? Never 04/06/2023 Do you belong to any clubs o r organizations such as uatsdin groups, unions, fraternal or athletic groups, or [...] Answer Date Recorded Patient Health Questionnaire-2 Score 2 04/13/2023 [facility] Questionnaire Answer Date Recorded [...] place to sleep or slept in a retirement (including now)? No 04/06/2023 Comments Unknown Sex [...] Office Visit [facility] [address] [facility] [address] [place] [address] [place] [address] Arnaud Cordova MD [address] [address] 09/11/2024 8:10 AM EDT Office Visit [facility] BCP OB [address] [facility] [place] [place] [address] Javier Morales, DO [address] [facility] [place] [address] 10/10/2024 2:00 PM EDT Office Visit [facility] FM [address] [place] [address] Elvie Greer NP [address] [place] [address] 02/22/2025 1:15 PM EST Office Visit [facility] ORTH[facility] [address] [place] [address] Tani Pimentel, DO [address] [place] [address] 06/05/2025 11:00 AM EDT Office Visit [facility] B[facility] OB [address] [facility] [place] [place] [address] Javier Morales, DO [address] [place], [place] [address] documented as of this encounter Visit Diagnoses Not on filedocumented in this encounter Care Teams Accountant Bookkeeper Relationship Specialty Start Date End Date Chris Pelaez MD [address] [place] [address] PCP - General Family Medicine 04/01/23 Elvie Greer NP [address] [place] [address] Nurse Practitioner Family Medicine 04/01/23 documented as of this encounter
--- OUTSIDE RECORDS SUMMARY | 2024-08-29 08:42 | XMS_ITS | Encounter Summary ---
Author Organization [facility] Address [address] [place] [address] Care Team Providers Care Automotive Power Electronics Engineer Name Role Phone Elvie Greer MANAGER LAW Unavailable [phone] Chris Pelaez MD Primary Care Provider [phone] Encounter Details Date Type Department Care Team (Late st Contact Info) Description 02/21/2024 Clinisync Result Encounter [facility] External Department Unsolicited Tani Pimentel, DO [address] [place] [address] Social History Tobacco Use Types Packs/Day Years [...] often do you attend chur ch or zoroastrian services? Never 04/06/2023 Do you belong to any clubs o r organizations such as hinduism groups, unions, fraternal or athletic groups, or [...] Recorded Patient Health Questionnaire-2 Score 0 08/31/2023 [facility] of Occupat ional Health - Occupational Stress [...] place to sleep or slept in a penitentiary (including now)? No 04/06/2023 Comments Unknown Sex [...] Visit [facility] ALL [address] [address] Arnaud Cordova MD [address] [address] 09/11/2024 8:10 AM EDT Office Visit [facility] BCP OB [address] [place] [address] Javier Morales, DO [address] [place] [address] 10/10/2024 2:00 PM EDT Office Visit [facility] FM [address] [place] [address] Elvie Greer, JONN [address] [place] [address] 02/22/2025 1:15 PM EST Office Visit [facility] NB ORTHO [address] [place] [address] Tani Pimentel Isabel, DO [address] [place] [address] 06/05/2025 11:00 AM EDT Office Visit [facility] [address] [facility] [place] [address] AndrewJaviy, DO [address] [facility] [place] [address] documented as of this encounter Procedures Procedure Name Priority Date/Time Associated Diagnosis Comments XR KNEE 1 OR 2 VIEWS RIGHT 02/21/2024 12:28 PM EST documented in this encounter Results * XR KNEE 1 OR 2 VIEWS RIGHT (02/21/2024 12:28 PM EST) Anatomical Region Laterality Modality Other 02/21/2024 12:2 8 PM EST Narrative 02/21/2024 12:48 PM EST Exam Date/Time: 02/21/2024 12:40 EST Reason for Exam: Post-op evaluation;Other (please specify) Report IMPRESSION: RIGHT TOTAL KNEE REPLACEMENT. CLINICAL INFORMATION: Postop. COMMENT: 2 views. There is a right total knee prosthesis, in good position and alignment. There is gas in the soft tissues from the surgery. There are metallic surgical shaunna along the anterior skin incision. Ordering Provider: Tani Pimentel FINAL REPORT Dictated: 02/21/2024 12:45 pm Abram Smith M.D. Signed (Electronic Signature): 02/21/2024 12:45 pm Signed by: Abram Smith M.D. Transcribed by: KANG Technologist: ADALBERTO Technical Comments Radiation Dose: Ka,r in mGy = na DAP = na Procedure Note Radiology, Radiologist, - 02/21/2024 Exam Date/Time: 02/21/2024 12:40 EST Reason for Exam: Post-op evaluation;Other (please specify) Report IMPRESSION: RIGHT TOTAL KNEE REPLACEMENT. CLINICAL INFORMATION: Postop. COMMENT: 2 views. There is a right total knee prosthesis, in good positionand alignment. There is gas in the soft tissues from the surgery. There aremetallic surgical shaunna along the anterior skin incision. Ordering Provider: Tani Pimentel FINAL REPORT Dictated: 02/21/2024 12:45 pm Abram Smith M.D. Signed (Electronic Signature): 02/21/2024 12:45 pm Signed by: Abram Smith M.D. Transcribed by: KANG Technologist: ADALBERTO Technical Comments Radiation Dose: Ka,r in mGy = na DAP = na Tani Pimentel DO [facility] Final Resu lt documented in this encounter Visit Diagnoses Not on filedocumented in this encounter Care Teams Automotive Power Electronics Engineer Relationship Specialty Start Date End Date Chris Pelaez MD [address] [place] [address] PCP - General Family Medicine 04/01/23 Elvie Greer NP [address] [place] [address] Nurse Practitioner Family Medicine 04/01/23 documented as of this encounter
--- OUTSIDE RECORDS SUMMARY | 2024-08-29 08:42 | XMS_ITS | Encounter Summary ---
Author Organization [facility] Address [address] [place] [address] Care Team Providers Care Velvet Weaver Name Role Phone Elvie Greer RADIO DIVISION OFFICER Unavailable [phone] Chris Pelaez MD Primary Care Provider [phone] Encounter Details Date Type Department Care Team (Late st Contact Info) Description 08/07/2024 Orders Only [facility] FM [address] [place] [address] Elvie Greer, JONN [address] [place] [address] Social History Tobacco Use Types Packs/Day Years [...] often do you attend chur ch or restorationism services? Never 04/06/2023 Do you belong to any clubs o r organizations such as tenriism groups, unions, fraternal or athletic groups, or [...] Recorded Patient Health Questionnaire-2 Score 0 08/31/2023 [facility] Questionnaire [...] [facility] [address] [place] [address] [address] [place] [address] Arnaud Cordova MD [address] [address] 09/11/2024 8:10 AM EDT Office Visit [facility] BCP OB [address] [facility] [place] [address] Javier Morales, [address] [facility] [place] [address] 10/10/2024 2:00 PM EDT Office Visit [facility] FM [address] [place] [address] Elvie Greer NP [address] [place] [address] 02/22/2025 1:15 PM EST Office Visit [facility] ORTHO [address] [place] [address] Tani Pimentel, DO [address] [place] [address] 06/05/2025 11:00 AM EDT Office Visit [facility] B[facility] OB [address] [facility] [place] [address] Javier Morales, DO [address] [facility] [address] [place], [place] [address] documented as of this encounter Procedures Procedure Name Priority Date/Time Associated Diagnosis Comments CARD HOLTER MONITOR RECORDING Routine 08/07/2024 11:08 AM EDT documented in this encounter Results * CARD HOLTER MONITOR RECORDING (08/07/2024 11:08 AM EDT) Anatomical Region Laterality Modality Radiographic Hollie ging Elvie Greer NP IMG XR PROCEDURES Final Result documented in this encounter Visit Diagnoses Not on filedocumented in this encounter Care Teams Velvet Weaver Relationship Specialty Start Date End Date Chris Pelaez MD [address] [place] [address] PCP - General Family Medicine 04/01/23 Elvie Greer NP [address] [place] [address] Nurse Practitioner Family Medicine 04/01/23 documented as of this encounter
--- OUTSIDE RECORDS SUMMARY | 2024-08-29 08:42 | XMS_ITS | Clinical Summary ---
Author Organization [employer] tem Address [facility] [id number] [address] [place] [address] Care Team Providers Care Drawer In Jacquard Loom Name Role Phone AmadorElvie francis [employer] CONTROLS ENGINEER-RADIOLOGY TECHNICIAN Primary Care Provider Allergies Active Allergy Reactions Criticality Noted Date Comments Diphenhydramine Hcl Hives 08/09/2019 Latex, Natural Rubber Hives 08/09/2019 Medications omeprazole (PriLOSEC) 20 mg capsule Take 20 mg by mouth daily. 07/18/2019 Active albuterol (PROVENTIL HFA;VENTOLIN HFA) 90 mcg/actuation inhaler Inhale 2 puffs every 6 (six) hours as needed for wheezing. hasnt used in about a year Active Active Problems No known active problems Family History Medical History Relation Name Comments Diabetes Father Heart disease Father Cancer Maternal Grandfather Cancer Maternal Grandmother Diabetes Mother Heart disease Mother Cancer Paternal Grandfather Cancer Paternal Grandmother Relation Name Status Comments Father Maternal Grandfather Maternal Grandmother Mother Paternal Grandfather Paternal Grandmother Social History Tobacco Use Types Packs/Day Years Used Date Smoking Tobacco: Never Smokeless Tobacco: Never Alcohol Use Standard Drinks/Week Comments Yes 0 (1 standard drink = 0.6 oz pur e alcohol) social Childcare Answer Date Recorded Childcare Unknown 08/03/2019 Employment Answer Date Recorded Employment Unknown 08/03/2019 Purpose - Life Answer Date Recorded Purpose and direction in life Unknown Comments Unknown Sex and Gender Information Value Date Recorded Sex Assigned at Not on file Legal Sex Female 11:45 AM EDT Gender Identity Not on file Sexual Orientation Not on file Last Filed Vital Signs Vital Sign Reading Time Taken Comments Blood Pressure 127/81 02/28/2020 1:51 PM EST Pulse 90 02/28/2020 1:51 PM EST Temperature 36.3 C (97.3 F) 02/28/2020 12:30 PM EST Respiratory Rate 20 02/28/2020 1:51 PM EST Oxygen Saturation 100% 02/28/2020 1:51 PM EST Inhaled Oxygen Concentration - - Weight 127 kg (280 lb) 02/28/2020 10:40 AM EST Height 165.1 cm (5' 5 ) 02/28/2020 10:40 AM EST Body Mass Index 46.59 02/28/2020 10:40 AM EST Plan of Treatment Health Maintenance Due Date Last Done Comments Depression Screening 1995 Tobacco Screening 1995 Adult BMI Screening 11/18/2001 DTaP,Tdap and Td Vaccines (1 - Tdap) 11/18/2002 Pap Smear 11/18/2004 Influenza Vaccine 11/06/2024 Medical Devices Not on file Insurance [employer] Care Teams Drawer In Jacquard Loom Relationship Specialty Start Date End Date Elvie Greer, PLC CONTROLS ENGINEER-RADIOLOGY TECHNICIAN PCP - General Nurse Practitioner 08/03/19
--- OUTSIDE RECORDS SUMMARY | 2024-08-29 08:42 | XMS_ITS | Encounter Summary ---
Author Organization [facility] Address [address] [place] [address] Care Team Providers Care Public Health Technician Name Role Phone Percy Elvie IRONWORKER APPRENTICE SHOP Unavailable [phone] Chris Pelaez MD Primary Care Provider [phone] Encounter Details Date Type Department Care Team (Late st Contact Info) Description 06/25/2023 Orders Only [facility] [address] [place] [place] [address] Javier Morales, DO [address] [place] [address] [place] [address] Social History Tobacco Use Types Packs/Day Years [...] often do you attend chur ch or amish services? Never 04/06/2023 Do you belong to [...] Recorded Patient Health Questionnaire-2 Score 0 06/29/2023 [facility] Questionnaire Answer Date Recorded [...] [facility] [address] [place] [phone] Arnaud Cordova MD [address] [address] 09/11/2024 8:10 AM EDT Office Visit [facility] [address] [facility] [place] [address] Javier Morales, [address] [place] [place] [address] 10/10/2024 2:00 PM EDT Office Visit [facility] [address] [place] [phone] Elvie Greer NP [address] [place] [address] 02/22/2025 1:15 PM EST Office Visit [facility] [address] [place] [phone] Tani Pimentel, DO [address] [place] [address] 06/05/2025 11:00 AM EDT Office Visit [facility] [address] [facility] [place] [address] Javier Morales, [address] [place], [place] [id number] documented as of this encounter Procedures Procedure Name Priority Date/Time Associated Diagnosis Comments SCANNED LABS Routine 06/25/2023 9:44 AM EDT documented in this encounter Results * SCANNED LABS (06/25/2023 9:44 AM EDT) us Javier Morales DO LAB CHG PERFORMABLES Final Resul t documented in this encounter Visit Diagnoses Not on filedocumented in this encounter Care Teams Public Health Technician Relationship Specialty Start Date End Date Chris Pelaez MD [address] [place] [address] PCP - General Family Medicine 04/01/23 Elvie Greer NP [address] [place] [address] Nurse Practitioner Family Medicine 04/01/23 documented as of this encounter
--- OUTSIDE RECORDS SUMMARY | 2024-08-29 08:42 | XMS_ITS | Clinical Summary ---
Author Organization [facility] Address [address] [place] [address] Care Team Providers Care Beeswax Bleacher Name Role Phone Unavailable Primary Care Provider Unavailabl e Social History Tobacco Use Types Packs/Day Years Used Date Smoking Tobacco: Never Assessed Comments Unknown Sex and Gender Information Value Date Recorded Sex Assigned at Not on file Legal Sex Female 8:55 AM EST Gender Identity Not on file Sexual Orientation Not on file Plan of Treatment Health Maintenance Due Date Last Done Comments Anxiety Screening 11/18/2001 Depression Screening 11/18/2001 HIV Screening 11/18/2001 Hepatitis C Screening 11/18/2001 DTaP,Tdap,Td Vaccine (1 - Tdap) 11/18/2002 Hepatitis B Vaccine (1 of 3 - 19+ 3-dose series) 11/18 Cervical Cancer Screening 11/18/2004 Covid-19 Vaccine ( season) 2023 Mammogram Screening 2023 Influenza Vaccine (Season Ended) 2024 Insurance O [employer] PPO
--- OUTSIDE RECORDS SUMMARY | 2024-08-29 08:42 | XMS_ITS | Encounter Summary ---
Author Organization [facility] Address [address] [place] [address] Care Team Providers Care Manager Assembly Name Role Phone Elvie Greer MEDICAL OFFICE RECEPTIONIST Unavailable [phone] Chris Pelaez MD Primary Care Provider [phone] Encounter Details Date Type Department Care Team (Late st Contact Info) Description 08/03/2024 Orders Only [facility] [address] [place] [address] Elvie Greer, JONN [address] [place] [address] Social History Tobacco Use Types Packs/Day Years [...] often do you attend chur ch or scientologist services? Never 04/06/2023 Do you belong to any clubs o r organizations such as jew groups, unions, fraternal or athletic groups, or [...] Recorded Patient Health Questionnaire-2 Score 0 08/31/2023 [facility] Questionnaire Answer Date Recorded [...] [facility] [address] [place] [address] [place] [address] Arnaud Cordova MD [address] [address] 09/11/2024 8:10 AM EDT Office Visit [facility] [address] [facility] [place] [address] Javier Morales, [address] [place] [address] 10/10/2024 2:00 PM EDT Office Visit [facility] [address] [place] [address] Elvie Greer NP [address] [place] [address] 02/22/2025 1:15 PM EST Office Visit [facility] [address] [phone] Tani Pimentel, DO [address] [place] [address] 06/05/2025 11:00 AM EDT Office Visit [facility] [address] [facility] [place] [address] Javier Morales, DO [address] [place], [place] [phone] documented as of this encounter Procedures Procedure Name Priority Date/Time Associated Diagnosis Comments CARD HOLTER MONITOR RECORDING Routine 08/03/2024 9:16 AM EDT documented in this encounter Results * CARD HOLTER MONITOR RECORDING (08/03/2024 9:16 AM EDT) Anatomical Region Laterality Modality Radiographic Hollie ging Elvie Greer NP IMG XR PROCEDURES Final Result documented in this encounter Visit Diagnoses Not on filedocumented in this encounter Care Teams Manager Assembly Relationship Specialty Start Date End Date Chris Pelaez MD [address] [place] [address] PCP - General Family Medicine 04/01/23 Elvie Greer NP [address] [place] [address] Nurse Practitioner Family Medicine 04/01/23 documented as of this encounter
--- OUTSIDE RECORDS SUMMARY | 2024-08-29 08:42 | XMS_ITS | Encounter Summary ---
Author Organization [facility] Address [address] [place] [address] Care Team Providers Care National Sales Executive Name Role Phone Elvie Greer CBX OPERATOR Unavailable [phone] Chris Pelaez MD Primary Care Provider [phone] Encounter Details Date Type Department Care Team (Late st Contact Info) Description 07/02/2023 Clinisync Result Encounter [facility] External Department Unsolicited Elvie Greer, JONN [address] [place] [address] Social History Tobacco Use Types Packs/Day Years [...] often do you attend chur ch or gnosticism services? Never 04/06/2023 Do you belong to any clubs o r organizations such as jain groups, unions, fraternal [...] Recorded Patient Health Questionnaire-2 Score 0 06/29/2023 [facility] - Occupational Stress Questionnaire Answer [...] place to sleep or slept in a long term (including now)? No 04/06/2023 Comments Unknown Sex [...] Visit [facility] [address] [facility] [place] [address] Arnaud Cordova MD [address] [facility] [place] [address] 09/11/2024 8:10 AM EDT Office Visit [facility] [address] [place] [address] Javier Morales, DO [address] [place] [address] 10/10/2024 2:00 PM EDT Office Visit [facility] [address] [place] [phone] Elvie Greer, CBX OPERATOR [address] [place] [address] 02/22/2025 1:15 PM EST Office Visit [facility] [address] [place] [address] Tani Pimentel, DO [address] [place] [address] 06/05/2025 11:00 AM EDT Office Visit [facility] [address] [place] [address] Javier Morales, DO [address] [facility] [place] [address] documented as of this encounter Procedures Procedure Name Priority Date/Time Associated Diagnosis Comments US THYROID 07/02/2023 6:22 AM EDT documented in this encounter Results * US thyroid (07/02/2023 6:22 AM EDT) Anatomical Region Laterality Modality Head, Neck Ultrasound 07/02/2023 6:22 AM EDT Narrative 07/02/2023 6:24 AM EDT [address] [address] Ultrasound Report Signed Patient: TEREZA NAVARRO MR#: [id number] : 1985 Acct:[id number] Age/Sex: 37 / F ADM Date: 07/01/23 Loc: US Attending Dr: Elvie Greer CBX OPERATOR Ordering Physician: Elvie Greer NP Date of Service: 07/01/23 Procedure(s): US thyroid Accession Number(s): [id number] cc: Elvie Greer NP [address] [address] Patient Name: TEREZA NAVARRO MRN: [id number] date: 1985 Sex: F Assigned Patient Location: US Current Patient Location: Accession/Order Number: [id number] Exam Date: 07/01/2023 11:42 Report Date: 07/02/2023 06:22 At the request of: ELVIE GREER Procedure: US thyroid EXAMINATION: US thyroid 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 FINDINGS: RIGHT LOBE: Slightly enlarged lobe with markedly heterogeneous echotexture; no definable nodules or significantly increased vascularity. Lobe size: 5.7 x 2.2 x 1.7 cm LEFT LOBE: Markedly heterogeneous without definable nodules or significant increased vascularity. Lobe size: 3.8 x 1.3 x 1.7 cm. ISTHMUS: Heterogeneous and mildly thickened. Thickness: 5 mm US/US thyroid IMPRESSION: 1. Heterogeneous thyroid gland without definable nodules. 2. No significantly increased vascularity. Electronically authenticated by: ARTHUR VIVAS Date: 07/02/2023 06:22 Dictated By: Arthur Vivas M.D. Signed By: 07/02/23623 DD/ 1 TD/TT: Recruiting Coordinator: Procedure Note Radiology, Radiologist, MD - 07/02/2023 [place] [address] Ultrasound Report Signed Patient: TEREZA NAVARRO KMR#: [id number] : 1985Acct:[id number] Age/Sex: 37 / FADM Date: 07/01/23 Loc: US Attending Dr: Elvie Greer NP Ordering Physician: Elvie Greer NP Date of Service: 07/01/23 Procedure(s): US thyroid Accession Number(s): [id number] cc: Elvie Greer NP The [address] [address] Patient Name: TEREZA NAVARRO MRN: [id number] date: 1985 Sex: F Assigned Patient Location: US Current Patient Location: Accession/Order Number: [id number] Exam Date: 07/01/2023 11:42 Report Date: 07/02/2023 06:22 At the request of: ELVIE GREER Procedure: US thyroid EXAMINATION: US thyroid 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 FINDINGS: RIGHT LOBE: Slightly enlarged lobe with markedly heterogeneousechotexture; no definable nodules or significantly increased vascularity. Lobe size: 5.7 x 2.2 x 1.7 cm LEFT LOBE: Markedly heterogeneous without definable nodules or significant increased vascularity. Lobe size: 3.8 x 1.3 x 1.7 cm. ISTHMUS: Heterogeneous and mildly thickened. Thickness: 5 mm US/US thyroid IMPRESSION: 1. Heterogeneous thyroid gland without definable nodules. 2. No significantly increased vascularity. Electronically authenticated by: ARTHUR VIVAS Date: 07/02/2023 06:22 Dictated By: Arthur Vivas M.D. Signed By:07/02/23623 DD/ 1 TD/TT: Recruiting Coordinator: us Elvie Greer CBX OPERATOR IMG US PROCEDURES Final Result documented in this encounter Visit Diagnoses Not on filedocumented in this encounter Care Teams National Sales Executive Relationship Specialty Start Date End Date Chris Pelaez MD [address] [place] [address] PCP - General Family Medicine 04/01/23 Elvie Greer NP [address] [place] [address] Nurse Practitioner Family Medicine 04/01/23 documented as of this encounter
--- NOTE | 2024-08-29 09:00 | NM_ITS ---
Patient Name: WILMER PENG MR#: [id number] : 1985 Exam Date: 08/29/2024 Ordering Doctor: KEYA GARLAND CNP RADIOLOGY REPORT PROCEDURE: NM MINOO PERF SPECT REST STR COMPARISON: None. INDICATIONS: HEART PALPITATIONS, VENTRICULAR ECTOPY TECHNIQUE: Exam Description: Stress/Rest two day protocol gated SPECT Rest Imagin.8 mCi Tc-99m Cardiolite IV on 09/05/2024 Stress Imaging 25.3 mCi Tc-99m Cardiolite IV on 08/29/2024 Exercise Protocol: Anmol Heart Rate (bpm): Rest: 90 Max: 173 PMHR: 96 Blood Pressure: Rest: 140/88 Max: 150/90 Exercise Time: Minutes: 5 Seconds: 35 Stage Reached: Stage: 2 Mets 7.0 Symptoms: Rest and peak stress ECG findings were pending and the EKG portion of the study was pending per attending physician [facility] . For more details please see separate cardiac stress test report. FINDINGS: QUALITY OF STUDY: Good PERFUSION DEFECT: LOCATION: Anterior SIZE: Medium SEVERITY: Mild TYPE: Fixed with adequate contractility and thickening consistent with breast attenuation WALL MOTION: Normal LV SIZE: 108 mL. TID / TCD: 0.9 LVEF: Calculated EF 71%. SUMMARY: Normal myocardial perfusion imaging study CONCLUSION: Normal Myoview myocardial perfusion stress images without evidence of ischemia or infarction Normal left ventricular systolic function, ejection fraction 71% No transient ischemic dilatation, TID 0.9 EKG portion of stress test is reported separately Dictated by: Harriet Jung MD on 09/05/2024 at 13:36 Approved by: Harriet Jung MD on 09/05/2024 at 13:42
--- NOTE | 2024-08-29 09:32 | PC.NURSE ---
Nursing Note Cardiac Stress Test Reviewed: Medication, allergies and patient history reviewed. Stress Test: [ x] Patient tolerated stress test well. [ ] Patient unable to tolerate walking on treadmill. Switched to Lexiscan stress test. [x ] No chest pain noted per patient [ ] Chest pain that resolved prior to leaving stress lab. [ ] No dyspnea noted. [x ] Dyspnea that resolved prior to leaving stress lab. [x ] Patient left stress lab asymptomatic and hemodynamically stable. [ ] Patient taken to the Emergency Room due to non-resolving symptoms following stress test. [x ] Patient achieved target heart rate. [ ] Patient unable to achieve target heart rate. [ ] Aminophylline administered as reversal agent to Lexiscan (Regadenoson). [ ] Nitro administered. Nursing Comments:Pt had Cardiolite test done tolerated well. No CP but did have SOB which she states is normal with activity. Pt left stress lab with no symptoms and ambulated to cafeteria for breakfast prior to second set of images.
--- NOTE | 2024-08-31 12:05 | P.STRESS_ITS ---
Stress Test Stress Test Allergies Allergy/AdvReac Type Severity Reaction Status Date / Time diphenhydramine (From Allergy Verified 05/06/23 13:14 Benadryl) latex Allergy Verified 05/06/23 13:14 Requesting physician: Elvie Greer Procedure: Treadmill nuclear stress test General Information: Reason for Stress Test: [Ventricular arrhythmia, palpitation] Cardiac History and Risk Factors: [Hypertension] Resting 12 - Lead Electrocardiogram: Normal sinus rhythm, heart rate 94 bpm, low voltage, cannot rule out old septal infarct, no T or ST changes. Resting heart rate 90 bpm, resting blood pressure 140/88. Patient was exercised according to standard Anmol protocol and she was able to finish 5 minutes and 35 seconds of exercise consistent with stage II and VII METS. Exercise was terminated secondary to achievement of target heart rate. The patient had dyspnea and fatigue at peak exercise. She did not report any chest, neck, jaw, or arm discomfort. Patient's heart rate went up to 173 bpm which represents 96% of age-predicted maximum heart rate and blood pressure to 150/90 mmHg. The patient was monitored for a total of 8 minutes into recovery with heart rate down to 114 bpm and blood pressure to 132/80 mmHg. EKG during exercise, at peak exercise, and during recovery phase did not show any significant T or ST changes or any arrhythmias. Stress Test: Protocol: [Protocol] Exercise Capacity: [Normal] Blood Pressure Response: [Normal] Rhythm: [Sinus, no arrhythmia] ST - Response: [No ST changes] Patient Response: [Dyspnea and fatigue] Interpretation: Maximal treadmill stress test Good exercise tolerance Normal heart rate and blood pressure response to exercise The stress test is negative for exercise-induced ischemic symptoms, EKG changes, or arrhythmias Myocardial perfusion images result is reported separately Harriet Jung MD [facility]
== END 2024-08-29 08:40 | disposition home or self-care (01) ==
LOC: CARD 08:39
PROVIDERS: PCP Nurse Practitioner; Visit Provider Nurse Practitioner
DX: I49.9 Cardiac arrhythmia, unspecified (principal); R94.31 Abnormal electrocardiogram [ECG] [EKG]
CPT/HCPCS: 78452; 93017; A9500

== ENCOUNTER 2024-09-05 08:26 | Outpatient (OUT) | payer OTHER, SELFPAY ==
--- OUTSIDE RECORDS SUMMARY | 2024-09-05 08:46 | XMS_ITS | CCD ---
Author Organization [facility] Inform ion [facility] Care Team Providers Care Electrical Line Worker Name Role Phone AICHHOLZ, NERVE SPECIALIST ELVIE Primary Care Unavailable ABEL, DR KRISTY Yarbrough Admitting Unavailable ABEL, DR KRISTY Yarbrough Consulting Unavailable ABEL, DR KRISTY Yarbrough Attending Unavailable CHAN RICHEY Consulting Unavailable AICHHOLZ, NERVE SPECIALIST ELVIE Primary Care Unavailable AICHHOLZ, NERVE SPECIALIST ELVIE Consulting Unavailable AICHHOLZ, NERVE SPECIALIST ELVIE Attending Unavailable AICHHOLZ, NERVE SPECIALIST ELVIE Admitting Unavailable AICHHOLZ, KEYA ELVIE Primary Care Unavailable BO ., DR FOFANA Consulting Unavailabl e BO ., DR FOFANA Attending Unavailabl e BO ., DR FOFANA Admitting Unavailabl Mary Jo Sorensen Unavailable Percy HOME BASED ASSISTANT, Elvie Unavailable Chris Pelaez MD Primary Care Provider Adelina SAGASTUME, Jamshid Jha Attending Unavailable Elvie Greer Primary Care Provider [phone] MD Ghassan Ramos Attending Provider Ghassan Ramos Admitting Unavailable Ghassan Ramos Attending Unavailable Elvie Greer Primary Care Unavailable Elvie Greer Primary Care Unavailable Rogelio Oviedo Admitting Unavailab Rogelio Tariq Attending Unavailab tatiana Greer HOME BASED ASSISTANT, Elvie Unavailable ELVIE GREER Primary Care Physician [phone] Chan Khan Admitting Unavailable Chan Khan Attending Unavailable Chan Khan Referring Unavailable Chan Khan Referring Unavailable Khan, Chan T Admitting Unavailable [...] KHAN, CHAN T Referring Unavailable KHAN, CHAN Cazares Attending Unavailable KHAN, CHAN T Referring Unavailable AICHHOLZ, ELVIE Attending Unavailable KHAN, CHAN Cazares Attending Unavailable KHAN, CHAN T Referring Unavailable AICHHOLZ, ELVIE Attending Unavailable FERNANDEZ, KYLEE Attending Unavailable KHAN, CHAN T Referring Unavailable FERNANDEZ, KYLEE Attending Unavailable KHAN, CHAN T Referring Unavailable ANDREWJAVIER ALVAREZ Attending Unavailable AICHHOLZ, ELVIE Attending Unavailable KHAN, CHAN T Referring Unavailable KHAN, CHAN T Attending Unavailable KHAN, CHAN T Referring Unavailable ANDREWJAVIER Attending Unavailable AICHHOLZ, ELVIE Attending Unavailable MCBRIDE, MARIANO Yun Attending Unavailable KHAN, [...] Facility (1 source) diphenhydrAMINE Drug Allergy [facility] Repository (8 sources) Latex; Translations: [Latex] Drug allergy (disorder) 11-26-19 Unknown Reaction, Hives [facility] Repository (8 sources) diphenhydrAMINE; Translations: [diphenhydramine] Drug Allergy 11-26-19 Unknown (qualifier value) [facility] (1 source) Latex Propensity to adverse reactions Unknown [facility] Other (20 sources) diphenhydrAMINE Drug Allergy 08-09-19 Hives, Itching, Rash, Unknown [facility] (20 sources) Latex Propensity to adverse reactions 08-09-19 Hives, Itching, Rash, Unknown [facility] (20 sources) Prednisone; Translations: [predniSONE] Propensity to adverse reactions 04-01-19 [facility] (20 sources) Antihistamines, Diphenhydramine-Ty pe Propensity to adverse reactions 04-01-19 [facility] (1 source) diphenhydrAMINE Drug Allergy 11-26-19 [facility] Repository (1 source) Latex Drug allergy (disorder) 11-26-19 [facility] Repository (2 sources) predniSONE; Translations: [prednisone] Drug Allergy Unknown (qualifier value) [facility] Medications Current Medications Medication Drug Class(es) [...] every four hours for pain HYDROcodone-acetamin ophen ([place]) 5-325 MG tablet Indications: Primary osteoarthritis of [...] for pain. Start Date: 02/16/24 Status: Ordered [id number] 200 actuat albuterol 0.09 mg/actuat metered dose [...] Do not swallow.. 30.6 g 1 05/09/2024 Active Start: 04-13-2023 End: 07-12-2023 take 2 [...] in the morning. 90 tablet 1 05/09/2024 Active Start: 04-13-2023 End: 05-13-2023 take 1 tablet by mouth every twenty-four hours in the morning buPROPion XL (Wellbutrin XL) 150 MG 24 hr tablet Indications: Anxiety and depression (CMS/HCC) Take 1 tablet (150 mg) by mouth in the morning. Do not crush, chew, or split.. 30 tablet 1 04/13/2023 05/13/2023 Active calcitriol 0.51299 mg oral capsule (20 sources) Vitamin D3 Analog Start: 01-21-2024 End: 05-09-2024 calcitriol (Rocaltrol) 0.25 MCG capsule Take 0.25 mcg by mouth 01/21/2024 05/09/2024 Discontinued (Therapy completed) Start: 01-21-2024 take 1 capsule by [facility] once daily calcitriol 0.25 mcg Cap 0.25 mcg = 1 cap(s), Oral, Daily, Refills(s) 0, Prophylaxis Start Date: 01/21/24 Status: Ordered take 1 capsule by [facility] in the morning calcitriol (Rocaltrol) 0.25 MCG capsule Take 0.25 mcg by mouth in the morning. 0 Active celecoxib 200 mg oral capsule (20 sources) Nonsteroidal Anti-inflammatory Drug Start: 07-08-2024 take 1 capsule by mouth once daily celecoxib (CeleBREX) 200 MG capsule Take 200 mg by mouth Daily 07/08/2024 Active Start: 01-06-2024 End: 06-20-2024 take 1 capsule by mouth once daily celecoxib (CeleBREX) 200 MG capsule Take 200 mg by mouth Daily 01/06/2024 06/20/2024 Discontinued (Therapy completed) Start: 11-26-2023 Celecoxib Acti ve MG PO [...] days 20 capsule 1 02/16/2024 02/26/2024 Active 168 hr estradiol 0.06852 mg/hr transdermal system (3 sources) Estrogen Start: 08-07-2024 End: 08-07-2025 estradiol (Climara) 0.05 MG/24HR Indications: Hormone disorder Place 1 patch over 7 days on the skin 1 (one) time per week 12 patch 3 08/07/2024 08/07/2025 Active famotidine 20 mg oral tablet (20 sources) Histamine-2 Receptor Antagonist Start: 11-26-2023 Famotidine Active MG PO November 26, 2023 12:00am Start: 09-30-2023 End: 08-07-2024 take 1 tablet by mouth at bedtime famotidine (Pepcid) 20 MG tablet Indications: Gastroesophageal reflux disease, unspecified whether esophagitis present Take 1 tablet (20 mg) by mouth at bedtime 90 tablet 1 05/09/2024 Active Fish Oils (2 sources) Start: 01-21-2024 take 1 capsule by [facility] once daily Fish Oil 1000 mg oral [...] mg oral capsule (20 sources) Antihistamine Start: 06-11-2024 End: 07-11-2024 take 1 capsule by mouth every eight hours hydrOXYzine pamoate (Vistaril) 25 MG capsule Indications: Anxiety and depression (CMS/HCC) Take 1 capsule (25 mg) by mouth every 8 (eight) hours if needed for itching 90 capsule 1 06/11/2024 Active Start: 01-21-2024 take 1 capsule by mo uth four times daily as needed for anxiety [...] 08/05/2023 11/09/2023 Discontinued (Therapy completed) levothyroxine sodium 0.1 mg oral tablet (20 sources) l-Thyroxine Start: 07-12-2024 End: 10-10-2024 take 1 tablet by mouth before mealtime levothyroxine (Synthroid, Levoxyl) 100 MCG tablet Indications: Hypothyroidism, unspecified type (CMS/HCC) Take 1 tablet (100 mcg) by mouth in the morning. Take before meals. 90 tablet 07/12/2024 10/10/2024 Active Start: 05-10-2024 End: 08-08-2024 take 1 tablet by mouth before mealtime levothyroxine (Synthroid) 88 MCG tablet Indications: Hypothyroidism, unspecified type (CMS/HCC) Take 1 tablet (88 mcg) by mouth in the morning. Take before meals. 90 tablet 05/10/2024 07/12/2024 Discontinued (Therapy completed) Start: 01-21-2024 take 1 tablet by todd th once daily levothyroxine 75 mcg (0.075 mg) [...] morning. Take before meals. 90 tablet 04/05/2024 05/10/2024 Discontinued (Therapy completed) Start: 09-30-2023 End: 11-09-2023 take 1 tablet by mouth every hour before mealtime levothyroxine (Synthroid) 50 MCG tablet Indications: Aura's thyroiditis (CMS/HCC) Take 1 tablet (50 mcg) by mouth in the morning. Take before meals. Take 1 hour prior to any other food or drink or meds. 30 tablet 2 09/30/2023 11/09/2023 Discontinued (Ineffective) magnesium oxide 400 mg oral tablet (20 sources) Start: 05-10-2024 End: 08-08-2024 take 1 tablet by mouth in the morning magnesium oxide (Mag-Ox) 400 (240 Mg) MG tablet Indications: Hypomagnesemia Take 1 tablet (400 mg) by mouth in the morning and 1 tablet (400 mg) before bedtime. 60 tablet 1 06/27/2024 08/08/2024 Active Start: 08-13-2022 take 1 tablet by todd th in the morning magnesium oxide (Mag-Ox) 400 [...] tablet (20 sources) Leukotriene Receptor Antagonist Start: Montelukast Active MG PO November 26, 2023 12:00am Start: 09-28-2023 End: 08-07-2024 take 1 tablet by mouth at bedtime montelukast (Singulair) 10 MG tablet Indications: Moderate persistent asthma without complication (CMS/HCC) Take 1 tablet (10 mg) by mouth at bedtime 90 tablet 1 05/09/2024 Active Start: 04-13-2023 End: 07-12-2023 take 1 [...] Allergy symptoms Start Date: 01/25/24 Status: Ordered Bronson-3 Fatty Acids (Fish Oil) 1000 MG capsule delayed-release (3 sources) Bronson-3 Fatty Ac ids (Fish Oil) 1000 MG [...] chew, or split.. 90 tablet 1 05/09/2024 Active polyethylene glycol 3350 07889 mg powder for oral solution (9 sources) Osmotic Laxative Start: 05-09-2024 End: 06-08-2024 [...] 0, Prophylaxis Start Date: 01/21/24 Status: Ordered progesterone 100 mg oral capsule (3 sources) Progesterone Start: 08-07-2024 End: 11-05-2024 take 1 capsule by mouth once daily progesterone (Prometrium) 100 MG capsule Indications: Hormone disorder Take 1 capsule (100 mg) by mouth Daily 90 capsule 3 08/07/2024 11/05/2024 Active traMADol hydrochloride 50 mg oral tablet (17 [...] spray (20 sources) Corticosteroid Start: 04-05-2024 End: 08-08-2024 take 2 spray(s) nasal route once daily triamcinolone (Nasacort) 55 MCG/ACT nasal inhaler Indications: Moderate persistent asthma, uncomplicated (CMS/HCC) Administer 2 sprays into each nostril Daily 50.7 mL 1 05/09/2024 08/08/2024 Active Start: 02-08-2024 End: 03-07-2024 triamcinolone (Kenalog) [...] Problem Classification Problem Date Documented Date Episodic/Chronic Allergic reactions (2 sources) Allergic disposition 08-08-2024 Episodic Anxiety disorders (20 sources) Mixed anxiety and depressive disorder; Translations: [Anxiety disorder, unspecified] Onset: 04-01-2023 04-01-2023 Chronic Asthma (20 sources) Asthma; Translations: [Asthma, unspecified] Onset: 04-01-2023 Resolved: 02-08-2024 04-01-2023 Chronic Cardiac dysrhythmias (14 sources) Ventricular arrhythmia; Translations: [Cardiac arrhythmia, unspecified] Onset: 08-03-2024 08-03-2024 Chronic Cardiac dysrhythmias (20 sources) Palpitations; Translations: [Palpitations] Onset: 06-20-2024 06-20-2024 Episodic Diabetes mellitus without complication (1 source) Type [...] knee] Onset: 04-01-2023 04-01-2023 Chronic Other aftercare (11 sources) Patient encounter status; Translations: [Aftercare following joint replacement surgery] 03-22-2024 Chronic Other connective tissue disease (20 sources) History of total knee arthroplasty; Translations: [Presence of right artificial knee joint] Onset: 02-22-2024 02-22-2024 Chronic Other connective tissue disease (3 sources) Artificial knee joint present; Translations: [Presence of right artificial knee joint] 05-01-2024 Chronic Other connective tissue disease (1 source) Cramp and spasm; Translations: [CRAMP AND SPASM] Onset: 05-31-2022 Episodic Other endocrine disorders (2 sources) Disorder of endocrine system; Translations: [Endocrine disorder, unspecified] 08-03-2024 Episodic Other inflammatory condition of skin (20 [...] nutritional; endocrine; and metabolic disorders (20 sources) Obesity caused by energy imbalance; Translations: [Morbid (severe) obesity due to excess calories] Onset: 02-08-2024 05-09-2024 Chronic Other upper respiratory disease (4 sources) Allergic disposition; Translations: [Other allergic rhinitis] Onset: 08-08-2024 08-08-2024 Chronic Syncope (2 sources) Syncope 01-21-2024 Episodic Thyroid disorders (20 sources) Aura thyroiditis; Translations: [Autoimmune thyroiditis] Onset: 06-29-2023 Resolved: 05-09-2024 12-26-2023 Chronic Past or Other Problems Problem Classification Problem Date Documented Da te Episodic/Chronic Abdominal hernia (20 sources) Umbilical hernia; [...] 04-01-2023 Episodic Other aftercare (1 source) Other long filler cigar roller machine (current) drug therapy; Translations: [OTH USP CURRENT DRUG THERAPY] Onset: 02-25-2022 Episodic Other connective tissue disease (20 sources) H/O: knee problem; Translations: [Personal history of other diseases of the musculoskeletal system and connective tissue] Onset: 03-27-2020 Resolved: 11-09-2023 04-01-2023 Episodic Other connective tissue disease (20 sources) Cramp in lower limb; Translations: [Cramp and spasm] Onset: 04-01-2023 04-01-2023 Episodic Other gastrointestinal disorders (20 sources) Constipation; Translations: [Other constipation] Onset: 05-09-2024 05-09-2024 Episodic Other nervous system disorders (20 sources) Other acute postprocedural pain; Translations: [Pain in joint, lower leg] Onset: 04-01-2023 02-22-2024 Episodic Other non-traumatic joint disorders (20 sources) Pain in right knee; Translations: [Pain in joint, lower leg] Onset: 04-01-2023 Resolved: 09-30-2023 04-14-2023 Episodic Other screening for suspected conditions (not mental disorders or infectious disease) (20 sources) Abnormal results of liver function studies; Translations: [Encounter for screening for malignant neoplasm of cervix] Onset: 05-06-2022 Resolved: 11-09-2023 Episodic Other skin disorders (20 sources) Loss [...] Test Name Value Interpretation Reference Range Facility ALL MAGNESIUMon 07-11-2024 Magnesium [Mass/Vol] 1.8 mg/dL 1.8 - 2 .4 mg/dL [facility] ALL THYROID STIM HORMONEon 0 07-11-2024 Interpretation and review of laboratory results Abnormal [facility] TSH Qn 3.998 m[IU]/L High [facility] No Panel Informationon 07-11 [facility] ALL BASIC METABOLIC PANELon 06-27-2024 Anion gap [Moles/Vol] 12.3 mmol/L [facility] Calcium [Mass/Vol] 8.9 mg/dL 8.5 - 10. 1 mg/dL [facility] Chloride [Moles/Vol] 104 mmol/L 98 - 10 7 mmol/L [facility] CO2 [Moles/Vol] 29.5 mmol/L 21.0 - 32.0 mmol/L [facility] Creatinine [Mass/Vol] 0.67 mg/dL 0.55 - 1.02 mg/dL [facility] GFR/1.73 sq M.predicted CKD-EPI (S/P/Bld) [Vol rate/Area] >60 >=60 mL/min/1.73 m 2 [facility] Glucose [Mass/Vol] 89 mg/dL 74 - 106 mg/dL [facility] Potassium [Moles/Vol] 3.8 mmol/L 3.5 - 5.1 mmol/L [facility] Sodium [Moles/Vol] 142 mmol/L 136 - 145 mmol/L [facility] TBH EGFR-NON AF PALAUAN >60 >=60 mL/min/1.73 m 2 [facility] Urea nitrogen [Mass/Vol] 8 mg/dL 7.0 - 18.0 mg/dL [facility] Urea nitrogen/Creatinine [Mass ratio] 11.9 mg/mg [facility] ALL MAGNESIUMon 06-27-2024 Interpretation and review of laboratory results Abnormal [facility] Magnesium [Mass/Vol] 1.7 mg/dL Low 1.8 - 2 .4 mg/dL [facility] No Panel Informationon 06-27 [facility] XR Knee - right 3 Viewson [facility] Imaging Result: Xrays taken in the office today saved to the permanent record, AP, sunrise and lateral weightbearing films, show stable position and alignment of the right TKA prosthesis. No sign of loosening, fracture or infection. [facility] Radiology Study observation (narrative) [facility] ALL CBC WITH AUTO DIFFon BASOPHILS ABSOLUTE AUTO [address] [facility] Basophils/100 WBC (Bld) 0.4 % 0.2 - 2.0 % [facility] Eosinophils/100 WBC (Bld) 2.8 % 0.9 - 7.0 % [facility] Erythrocyte distribution width (RBC) [Ratio] 12.8 % 11.0 - 15.0 % [facility] Hematocrit (Bld) [Volume fraction] 37.5 % 36.0 - 48.0 % [facility] Hemoglobin (Bld) [Mass/Vol] 12.6 g/dL 12.0 - 16.0 g/dL [facility] IMMATURE GRANULOCYTES ABS AUTO 0.02 [facility] Immature granulocytes/100 WBC (Bld) 0.2 % 0.0 - 0.5 % [facility] LYMPHOCYTES ABSOLUTE AUTO 1.9 [facility] Lymphocytes/100 WBC (Bld) 22.7 % 20.5 - 60.0 % [facility] MCH (RBC) [Entitic mass] 29.9 pg 26.7 - 34.0 pg [facility] MCHC (RBC) [Mass/Vol] 33.6 g/dL 29.9 - 35.2 g/dL [facility] MCV (RBC) [Entitic vol] 88.9 fL 81.0 - 99.0 fL [facility] MONOCYTES ABSOLUTE AUTO 0.6 N OMS [facility] Monocytes/100 WBC (Bld) 6.9 % 1.7 - 12.0 % [facility] NEUTROPHILS ABSOLUTE AUTO 5.7 [facility] Neutrophils/100 WBC (Bld) 67 % 43.0 - 75.0 % [facility] Platelet mean volume (Bld) [Entitic vol] 9.5 fL 9.5 - 13.5 fL [facility] TBH EO # 0.2 [facility] TB PLT 358 [facility] TB RBC 4.22 [facility] TB WBC 8.5 [facility] MM TOMOSYNTHESIS SCREENING B Ion 04-18-2024 [place] [address] Mammography Report Signed Patient: WILMER NAVARRO MR#: [id number] : 1985 Acct:[id number] Age/Sex: 38 / F ADM Date: 04/18/24 Loc: MAMMO Attending Dr: Javier Morales D.O. Ordering Physician: Javier Morales D.O. Results: Date of Service: 04/18/24 Follow Up: Procedure(s): MM tomosynthesis screening BI Accession Number(s): [id number] cc: Elvie Greer HOME BASED ASSISTANT; Javier Morales D.O. Patient Name: WILMER NAVARRO MR#: [id number] : 1985 Exam Date: 04/18/2024 Ordering Doctor: [...] Treatments None Family Cancers None LOCATION: [facility] BREAST COMPOSITION: The breasts are extremely dense, [...] Signed By: 04/18/24 1135 DD/ 1134 TD/TT: Loader: [facility] Radiology, Radiologist, MD - 04/18/2024 [place] [address] Mammography Report Signed Patient: WILMER NAVARRO MR#: [id number] : 1985 Acct:[id number] Age/Sex: 38 / F ADM Date: 04/18/24 Loc: MAMMO Attending Dr: Javier Morales D.O. Ordering Physician: Javier Morales D.O. Results: Date of Service: 04/18/24 Follow Up: Procedure(s): MM tomosynthesis screening BI Accession Number(s): [id number] cc: Elvie Greer HOME BASED ASSISTANT; Javier Morales D.O. Patient Name: WILMER NAVARRO MR#: [id number] : 1985 Exam Date: 04/18/2024 Ordering Doctor: [...] Treatments None Family Cancers None LOCATION: [facility] BREAST COMPOSITION: The breasts are extremely dense, [...] Signed By: 04/18/24 1135 DD/ 1134 TD/TT: Loader: [facility] Radiology Study observation (narrative) [facility] MM TOMOSYNTHESIS SCREENING B IOrdered By: Radiologist Radiology on 04-18-2024 [facility] Work Phone: XR Knee - right 3 [facility] Imaging Result: Xrays taken in the office today saved to the permanent record, Ap, lateral and sunrise weight bearing films, show stable position and alignment of the right knee prosthesis. No sign of loosening or infection. [facility] Radiology Study observation (narrative) [facility] Surgical Pathology Reporton 02-25-2024 Surgical Pathology Report [address] [place] [address]- Surgical Pathology Report Collected Date/Time: 02/21/2024 11:30 EST Pathologist: Darius SAGASTUME PhD, Tracey Sandoval Received Date/Time: 02/21/2024 14:10 EST Loren DO, Chan Khan DO, Chan Cazares 07 Surgical Pathology Report - 02/25/2024 14:08 EST [...] tissue 2 - Bone after decalcification (DC) DC:[facility] Microscopic Description Microscopic examination performed unless gross only specified. Normal [facility] Comment on above: Performed By: #### [id number] #### [facility] [address] [place] [address] Main OR Intraoperative Recor don 02-22-2024 Main OR Intraoperative Record Main OR Intraoperative Record IntraOp Document Type FT Summary Primary Physician: Chan Khan DO Finalized Date/Time: 02/22/24 12:52:18 Pt. Name: GINETTE WILMERHUSEYIN Akins/Sex: 1985 Female Med Rec #: [id number] Physician: Chan Khan DO Financial #: [id number] Pt. Type: A Room/Bed: [place] [address] Admit/Disch: 02/21/24 08:02:21 - 02/21/24 17:00:00 Institution: Case Times FT Entry 1 Patient Times In Room 02/21/24 10:53:00 Out Room 02/21/24 12:25:00 Procedure Times Start 02/21/24 11:20:00 Stop 02/21/24 12:16:00 Anesthesia Times Start 02/21/24 10:53:00 Stop 02/21/24 12:25:00 Block Timeout w/ 02/21/24 10:05:00 Anesthesia Last Modified By: Suki TORRE, MAICOL, Brynn Akhtar 02/21/24 12:25:34 General Comments: [id number] taylor and hermelinda for block. HR 101, SPO2 100%, Nervous. Tolerated procedure well./ T koki TORRE/ Jaime Cohn Rn 02/22/24 Chart opened to review and send charges [facility] Case Attendance FT Entry 1 Entry 2 Entry 3 Case Attendee Taylor LARSON, HEEL CURVER, [facility] DO, Chan Cohn RN, CNOR, Brynn Cheryl Akhtar Role Performed HEEL CURVER Surgeon - Primary Cable Dispatcher - Primary Time In 02/21/24 10:53:00 02/21/24 10:47:00 02/21/24 10:53:00 Time Out 02/21/24 12:25:00 02/21/24 12:05:00 02/21/24 12:25:00 Procedure KNEE TOTAL KNEE TOTAL KNEE TOTAL ARTHROPLASTY(Right) ARTHROPLASTY(Right) ARTHROPLASTY(Right) Comments R Myriam Resident, Lucille dorsey in to hold Chocran in room leg for prep [id number] Last Modified By: Skye HELP DESK REPRESENTATIVE, Antoinette Cohn RN, CNOR, Brynn Cohn RN, CNOR, Brynn 02/22/24 12:49:03 Giovana 02/21/24 12:25:07 Giovana 02/21/24 12:25:55 Entry 4 Entry 5 Entry 6 Case Attendee Presley GALLAGHER, Shayna Dorsey HELP DESK REPRESENTATIVE, eTsha Loaiza Role Performed Scrub - Primary HELP DESK REPRESENTATIVE/SA Staff - Other Time In 02/21/24 10:53:00 [...] Applicable) PreOp Antibiotic Yes Time Out Taylor LARSON, JAMES, Queen Annette Luna, Chan Khan DO, Missler RN, NUNOOR, Brynn Akhtar, Presley HELP DESK REPRESENTATIVE, Alvaro Yousif CST, Dee Adkins Time Out [...] Last Modified (more content not included)... Normal [facility] Main OR Preoperative Recordo n 02-22-2024 Main OR Preoperative Record Main OR Preoperative Record PreOp Document Type FT Summary Primary Physician: Chan Khan DO Finalized Date/Time: 02/22/24 08:37:35 Pt. Name: WILMER NAVARRO /Sex: 1985 Female Med Rec #: [id number] Physician: Chan Khan DO Financial #: [id number] Pt. Type: A Room/Bed: [facility]/ Admit/Disch: 02/21/24 08:02:21 - 02/21/24 17:00:00 Institution: [...] Lou Ann Document Signatures Signed By: MAICOL oChn RN, Lou Ann 02/22/24 08:37 Normal [facility] Operative Reporton Operative Report Operative Report [...] female with progressive right knee pain with rlsw-nj-mjal disease. She has a strong family history as well as treatment for several decades. She has tried ice, Tylenol, analgesics, corticosteroid injections. She has [id number]. She initially presented with an elevated body [...] count correct SPECIMEN: Bone PATIENT CONDITION: Satisfactory Chan Khan D.O. ca Dictated: 02/21/2024 [id number] Transcribed: 02/21/2024 cc:Elvie Greer, NERVE SPECIALIST Normal [facility] Comment on above: Result Comment: Elec tronically Signed By: Chan Khan DO T\.br\Date and Time Signed: 02/22/24 17:18 EST ABO/Rhon 02-21-2024 ABO/Rh Positive Invalid Interpretation Code [facility] Comment on above: Performed By: #### [id number] #### [facility] [address] [id number] ABO/Rh History Checkon 02-20 ABO/Rh History Check Verified Hx Blood Type Normal [facility] Comment on above: Performed By: #### [id number] #### [facility] [address] [place] [address] ABSCon 02-21-2024 ABSC Gel Interp Negative Normal [facility] Comment on above: Performed By: #### 1 [id number] #### [facility] [address] [id number] BLOOD BANKOrdered By: Donnie French on 02-21-2024 ABO/Rh Interp Positive Invalid Interpretation Code [facility] BB Subsection ABSC Gel Interp Negative (02/21/24 8:56 AM) Normal [facility] BB Subsection Blood Bank ID#on 02-21-2024 BBID# [id number] Invalid Interpretation Code [facility] Comment on above: Performed By: #### 1 [id number] #### [facility] [address] [place] [address] Discharge Instructionson Discharge Instructions Discharge Instructions WILMER [...] PM EST Comments: Keep scheduled appointment Where: [address] [place] [id number]- [facility] (1) Medications What How Much When Why [...] Incentive S (more content not included)... Normal [facility] Comment on above: Result Comment: Elec tronically Signed By: Ricki TORRE, Marium Mathis\.br\Date and Time Signed: 02/21/24 12:54 EST Interdisciplinary Note - Mary ronald 02-21-2024 Interdisciplinary Note - Nursing Interdisciplinary Note - Nursing at 1245, pt heart rate down to 30's, sinus pt feeling lightheaded and dizzy. pt placed in Trendelenberg- called and atropine 0.4mg given. heart rate increased to 50's. fluids wide open. Normal [facility] Main OR PACU I Recordon 02-05 Main OR PACU I Record Main OR PACU I Record PACU Phase I Document Type FT Summary Primary Physician: Chan Khan DO Finalized Date/Time: 02/21/24 14:56:12 Pt. Name: WILMER NAVARRO/Sex: 1985 Female Med Rec #: [id number] Physician: Chan Khan DO Financial #: [id number] Pt. Type: A Room/Bed: [facility]/ Admit/Disch: 02/21/24 08:02:21 - Institution: Case Times [...] By: Shanti Bender RN 02/21/24 14:56 Normal [facility] Main OR PACU II Recordon Main OR PACU II Record Main OR PACU II Record PACU Phase II Document Type FT Summary Primary Physician: Chan Khan DO Finalized Date/Time: 02/21/24 18:04:41 Pt. Name: WILMER NAVARRO/Sex: 1985 Female Med Rec #: [id number] Physician: Chan Khan DO Financial #: [id number] Pt. Type: A Room/Bed: [place] [address] Admit/Disch: 02/21/24 08:02:21 - Institution: Case Times [...] 02/21/24 18:04 Naila Landaverde 02/21/24 18:04 Normal [facility] Proceduralon 02-21-2024 Procedural Procedural Patient: WILMER [...] Using maximal sterile barrier technique per current [facility] guidelines including hand hygeine, Guidance (Ultrasound used [...] Taylor CRNA under Dr Gupta's supervision. Normal [facility] SEROLOGYOrdered By: Brook French on 02-21-2024 HCG.beta subunit (U) [Moles/Vol] Negative Normal [facility] Man Sero U BetaHcg Qualon 02-21-2024 HCG.beta subunit (U) [Moles/Vol] Negative Normal [facility] Comment on above: Performed By: #### 2 [id number] #### [facility] [address] [place] [address] XR Knee 1 or 2 Views Righton [...] mGy = na DAP = na Normal [facility] Inpatient Patient Summaryon 02-16-2024 Inpatient Patient Summary Inpatient Patient Summary [facility] [address] [place], [place] [address] [facility] Clinical Discharge Instructions PERSON INFORMATION Name: WILMER NAVARRO PHYSICIANS Admitting Physician: Chan Khan DO Attending Physician: Chan Khan DO PCP: ELVIE GREER CNP Discharge Diagnosis: Localized osteoarthritis of right knee Comment: PATIENT EDUCATION INFORMATION Instructions: Loren - Total Knee Arthroplasty (CUSTOM) Medication Leaflets: Follow up: With: Address: When: Chan Khan [address] [place] [address] [employer] (1) Comments: Keep scheduled appointment Type Location Start [facility] Surgery [facility] Services 02/21/2024 11:15 AM 02/21/2024 [...] Sprays Nasal Inhalation every day. Comment: Normal [facility] Outpatient Surgery Discharge Instructionon 02-16-2024 Outpatient Surgery Discharge Instruction Outpatient Surgery Discharge Instruction [place] [id number] Patient Discharge Instructions PERSON INFORMATION Name: WILMER [...] Follow up: With: Address: When: Chan Khan [address] [place], [place] [id number] [facility] (1) Comments: Keep scheduled appointment Type Location Start [facility] Surgery [facility] Surgical Services 02/21/2024 11:15 AM 02/21/2024 [...] to serve you. Thank you for choosing [facility] HERE ARE THE MEDICATION CHANGES [...] Inhalation every day. PATIENT EDUCATION INFORMATION Instructions: [place], [place] [facility] DISCHARGE INSTRUCTIONS TOTAL KNEE [...] or light-headedness. (more content not included)... Normal [facility] ABO/Rh Retypeon 01-25-2024 ABO/Rh Retype Interp Positive Invalid Interpretation Code [facility] Comment on above: Performed By: #### 1 [id number] #### [facility] [address] [place] [address] BLOOD BANKOrdered By: Donnie French on 01-25-2024 ABO/Rh Retype Interp Positive Invalid Interpretation Code [facility] BB Subsection BMPon 01-25-2024 Anion gap [Moles/Vol] 13 mmol/L Normal 6-16 [facility] Comment on above: Performed By: #### 2 [id number] #### [facility] [address] [place] [address] Calcium [Mass/Vol] 9.5 mg/dL Normal 8.9-11.1 [facility] Comment on above: Performed By: #### 2 [id number] #### [facility] [address] [place] [address] Chloride [Moles/Vol] 103 mmol/L Normal 101-111 [facility] Comment on above: Performed By: #### 2 [id number] #### [facility] [address] [place] [address] CO2 [Moles/Vol] 27 mmol/L Normal 21-31 [facility] Comment on above: Performed By: #### 2 [id number] #### [facility] [address] [place] [address] Creatinine [Mass/Vol] 0.6 mg/dL Normal 0.5-1.3 [facility] Comment on above: Performed By: #### 2 [id number] #### [facility] [address] [place] [address] Glucose [Mass/Vol] 84 mg/dL Normal 55-199 [facility] Comment on above: Performed By: #### 2 [id number] #### [facility] [address] [place] [address] Potassium [Moles/Vol] 4.0 mmol/L Normal 3.5-5.3 [facility] Comment on above: Performed By: #### 2 [id number] #### [facility] [address] [place] [address] Sodium [Moles/Vol] 139 mmol/L Normal 135-145 [facility] Comment on above: Performed By: #### 2 [id number] #### [facility] [address] [place] [address] Urea nitrogen [Mass/Vol] 12 mg/dL Normal 5-21 [facility] Comment on above: Performed By: #### 2 [id number] #### [facility] [address] [place] [address] Urea nitrogen/Creatinine [Mass ratio] 20 No Units Normal 10-20 [facility] Comment on above: Performed By: #### 2 [id number] #### [facility] [address] [place] [address] CBC w/ Auto Diffon 4 Basophils/100 WBC (Bld) 0.8 % Normal 0.0-2.0 [facility] Comment on above: Performed By: #### 2 [id number] #### [facility] [address] [place] [address] Basophils/Leukocytes Auto (Bld) [Pure # fraction] 0.1 E9/L Normal 0.0-0.2 [facility] Comment on above: Performed By: #### 2 [id number] #### [facility] [address] [place] [address] Eosinophils (Bld) [#/Vol] 0.3 E9/L Normal 0.0-0.5 [facility] Comment on above: Performed By: #### 2 [id number] #### [facility] [address] [place] [address] Eosinophils/100 WBC (Bld) 4.2 % Normal 0.0-8.0 [facility] Comment on above: Performed By: #### 2 [id number] #### [facility] [address] [place] [address] Erythrocyte distribution width (RBC) [Ratio] 13.2 % Normal 10.9-14.2 [facility] Comment on above: Performed By: #### 2 [id number] #### [facility] [address] [place] [address] Hematocrit (Bld) [Volume fraction] 39.2 % Normal 34.0-46.0 [facility] Comment on above: Performed By: #### 2 [id number] #### [facility] [address] [place] [address] Hemoglobin (Bld) [Mass/Vol] 13.6 g/dL Normal 12.0-16.0 [facility] Comment on above: Performed By: #### 2 [id number] #### [facility] [address] [place] [address] Lymphocytes (Bld) [#/Vol] 2.3 E9/L Normal 1.0-4.0 [facility] Comment on above: Performed By: #### 2 [id number] #### [facility] [address] [place] [address] Lymphocytes/100 WBC (Bld) 29.5 % Normal 14.0-50.0 [facility] Comment on above: Performed By: #### 2 [id number] #### [facility] [address] [place] [address] MCH (RBC) [Entitic mass] 30.4 pg Normal 27.0-34.0 [facility] Comment on above: Performed By: #### 2 [id number] #### [facility] [address] [place] [address] MCHC (RBC) [Mass/Vol] 34.7 g/dL Normal 31.4-36.0 [facility] Comment on above: Performed By: #### 2 [id number] #### [facility] [address] [place] [address] MCV (RBC) [Entitic vol] 87.5 fL Normal 80.0-100.0 [facility] Comment on above: Performed By: #### 2 [id number] #### [facility] [address] [place] [address] Monocytes (Bld) [#/Vol] 0.7 E9/L Normal 0.2-1.0 [facility] Comment on above: Performed By: #### 2 [id number] #### [facility] [address] [place] [address] Neutrophils (Bld) [#/Vol] 4.3 E9/L Normal 2.0-7.5 [facility] Comment on above: Performed By: #### 2 [id number] #### [facility] [address] [place] [address] Neutrophils/100 WBC (Bld) 56.6 % Normal 36.0-75.0 [facility] Comment on above: Performed By: #### 2 184092 #### [facility] [address] [place] [address] Platelet 377.0 E9/L Normal 150.0-500.0 [facility] Comment on above: Performed By: #### 2 [id number] #### [facility] [address] [place] [address] Platelet mean volume (Bld) [Entitic vol] 7.9 fL Normal 6.4-10.8 [facility] Comment on above: Performed By: #### 2 [id number] #### [facility] [address] [place] [address] RBC (Bld) [#/Vol] 4.5 E12/L Normal 4.3-5.9 [facility] Comment on above: Performed By: #### 2 [id number] #### [facility] [address] [place] [address] WBC corrected for nucl RBC Auto (Bld) [#/Vol] 7.7 E9/L Normal 4.0-11.0 [facility] Comment on above: Performed By: #### 2 [id number] #### [facility] [address] [place] [address] CHEMISTRYOrdered By: SYSTEM SYSTEM on 01-25-2024 Anion [...] 01-25-20 BILIRUBIN:PRTHR:PT:URIN E:ORD:TEST STRIP.AUTOMATED Negative Negative mg/dL [facility] CLARITY:TYPE:PT:URINE:N OM: Clear Clear [facility] CLASS:TYPE:PT:URINE COLLECTION METHOD:NOM:* Clean Catch [facility] COLOR:TYPE:PT:URINE:NOM :AUTO Light-Yellow Yellow [facility] Comment on above: Microscopic readings are only performed on those samples that meet specific criteria set forth by [facility]. [facility] PH:LSCNC:PT:URINE:QN:TE ST STRIP 5.5 5.0 - 9.0 [facility] SPECIFIC GRAVITY:RDEN:PT:URINE:Q N:TEST STRIP 1.013 1.005 - 1.030 [facility] GLUCOSE:PRTHR:PT:URINE: ORD:TEST STRIP Negative Negative mg/dL [facility] HEMOGLOBIN:MCNC:PT:URIN E:SEMIQN:TEST STRIP.AUTOMATED Negative Negative mg/dL [facility] KETONES:PRTHR:PT:URINE: ORD:TEST STRIP.AUTOMATED Negative Negative mg/dL [facility] LEUKOCYTE ESTERASE:PRTHR:PT:URINE :ORD:TEST STRIP.AUTOMATED Negative Negative CD:[id number] [facility] NITRITE:PRTHR:PT:URINE: ORD:TEST STRIP.AUTOMATED Negative Negative mg/dL [facility] PROTEIN:PRTHR:PT:URINE: ORD:TEST STRIP Negative Negative mg/dL [facility] UROBILINOGEN:MCNC:PT:UR INE:SEMIQN:TEST STRIP Negative Negative mg/dL [facility] Original Ordering Provider: DO [facility] Cult Rflxon 01-25-20 Bilirubin Ql (U) Negative Normal Negative [facility] Comment on above: Performed By: #### 4 [id number] #### [facility] [address] [place] [address] Clarity (U) Clear Normal Clear [facility] Comment on above: Performed By: #### 4 [id number] #### [facility] [address] [place] [address] Color (U) Light-Yellow Normal Yellow [facility] Comment on above: Result Comment: Micr oscopic readings are only performed on those samples that meet specific criteria set forth by [facility]. Performed By: #### 4 [id number] #### [facility] [address] [place] [address] Glucose Ql (U) Negative Normal Negative [facility] Comment on above: Performed By: #### 4 [id number] #### [facility] [address] [place] [address] Hemoglobin Auto test strip (U) [Mass/Vol] Negative Normal Negative [facility] Comment on above: Performed By: #### 4 [id number] #### [facility] [address] [place] [address] Ketones Auto test strip Ql (U) Negative Normal Negative [facility] Comment on above: Performed By: #### 4 [id number] #### [facility] [address] [place] [address] Leukocyte esterase Auto test strip Ql (U) Negative Normal Negative [facility] Comment on above: Performed By: #### 4 [id number] #### [facility] [address] [place] [address] Nitrite Auto test strip Ql (U) Negative Normal Negative [facility] Comment on above: Performed By: #### 4 [id number] #### [facility] [address] [place] [address] pH (U) 5.5 [pH] Invalid Interpretation Code 5.0-9.0 [facility] Comment on above: Performed By: #### 4 [id number] #### [facility] [address] [place] [address] Protein Ql (U) Negative Normal Negative [facility] Comment on above: Performed By: #### 4 [id number] #### [facility] [address] [place] [address] Specific gravity (U) [Rel density] 1.013 Invalid Interpretation Code 1.005-1.030 [facility] Comment on above: Performed By: #### 4 [id number] #### [facility] [address] [place] [address] Urobilinogen (U) [Mass/Vol] Negative Normal Negative [facility] Comment on above: Performed By: #### 4 [id number] #### [facility] [address] [place] [address] Type of Urine collection method Clean Catch Normal [facility] Comment on above: Performed By: #### 4 [id number] #### [facility] [address] [place] [address] URINALYSISOrdered By: SYSTEM SYSTEM on 01-25-2024 Bilirubin Ql (U) Negative Normal Negativemg/ dL [facility] UA Auto SS Clarity (U) Clear (01/25/24 8:54 AM) Normal Clear [facility] UA Auto SS Color (U) Light-Yellow 1 (01/25/24 8:54 AM) Normal Yellow [facility] UA Auto SS Comment on above: Interpretive Data: M icroscopic readings are only performed on those samples that meet specific criteria set forth by [facility]. Glucose Ql (U) Negative Normal Negativemg/ dL [facility] Auto SS Hemoglobin Auto test strip (U) [Mass/Vol] Negative Normal Negativemg/ dL [facility] UA Auto SS Ketones Auto test strip [...] Urobilinogen (U) [Mass/Vol] Negative Normal Negativemg/ dL [facility] Auto SS URINALYSISOrdered By: Juma Bonds on 01-25-2024 UA Spec Desc Clean Catch (01/25/24 8:54 AM) Normal [facility] UA Auto SS XR Chest 2 Viewson [...] Ahmad FINAL REPORT Dictated: 01/25/2024 10:00 am SignPete quispe MD Signed (Electronic Signature): 01/25/2024 10:00 am Signed by: Pete Echevarria MD Transcribed by: KANG Technologist: ELISABET Technical Comments Radiation Dose: Ka,r in mGy = n/a DAP = n/a Normal [facility] eGFRon 01-25-2024 eGFR 116 mL/min/1.73 m2 Normal >=59 [facility] Comment on above: Performed By: #### 1 [id number] #### [facility] [address] [place] [id number] ALL THYROID STIM HORMONEon 03-21-2023 TSH Qn 3.486 m[IU]/L [facility] ALL THYROXINE (T4) FREEon Free T4 [Mass/Vol] 0.81 ng/dL 0.76 - 1. 46 ng/dL [facility] No Panel Informationon 01-19 [facility] Alanine aminotransferase [En zymatic activity/volume] in Serum or PlasmaOrdered By: Ghassan Ramos on 12-09-2023 ALT [Catalytic activity/Vol] 11 U/L Normal 7-52 [facility] Comment on above: Performed By: #### C RP, ESR, CBC, CMP #### [facility] [address] [place] [address] [place] Albumin [Mass/volume] in Ser um or Plasma by Bromocresol green (BCG) dye binding methoOrdered By: Ghassan Ramos on 12-09-2023 Albumin BCG dye [Mass/Vol] 4.3 g/dL 3.5-5.7 [facility] Alkaline phosphatase [Enzyma tic activity/volume] in Serum or PlasmaOrdered By: Ghassan Ramos on 12-09-2023 ALP [Catalytic activity/Vol] 69 U/L Normal 34-104 [facility] Comment on above: Performed By: #### C RP, ESR, CBC, CMP #### [facility] [address] [place] [address] [place] Aspartate aminotransferase [ Enzymatic activity/volume] in Serum or PlasmaOrdered By: Ghassan Ramos on 12-09-2023 AST [Catalytic activity/Vol] 13 U/L Normal 13-39 [facility] Comment on above: Performed By: #### C RP, ESR, CBC, CMP #### [address] Automated basophil %Ordered By: Ghassan Ramos on 12-09-2023 Basophils/100 WBC (Bld) 0.4 % Normal . [facility] Comment on above: Performed By: #### C RP, ESR, CBC, CMP #### [address] Automated basophil countOrde red By: Ghassan Ramos on 12-09-2023 Basophils (Bld) [#/Vol] 0.0 10*3/uL Normal 0.0-0.2 [facility] Comment on above: Performed By: #### C RP, ESR, CBC, CMP #### [address] Automated blood monocyte cou ntOrdered By: Ghassan Ramos on 12-09-2023 Monocytes (Bld) [#/Vol] 0.6 10*3/uL Normal 0.0-0.8 [facility] Comment on above: Performed By: #### C RP, ESR, CBC, CMP #### [address] Automated eosinophil %Ordere d By: Ghassan Ramos on 12-09-2023 Eosinophils/100 WBC (Bld) 2.1 % Normal . [facility] Comment on above: Performed By: #### C RP, ESR, CBC, CMP #### [address] Automated eosinophil countOr dered By: Ghassan Ramos on 12-09-2023 Eosinophils (Bld) [#/Vol] 0.1 10*3/uL Normal 0.0-0.45 [facility] Comment on above: Performed By: #### C RP, ESR, CBC, CMP #### [address] Automated monocyte %Ordered By: Ghassan Ramos on 12-09-2023 Monocytes/100 WBC (Bld) 8.7 % Normal . [facility] Comment on above: Performed By: #### C RP, ESR, CBC, CMP #### [address] Automated neutrophil %Ordere d By: Ghassan Ramos on 12-09-2023 Neutrophils/100 WBC (Bld) 62.7 % Normal . [facility] Comment on above: Performed By: #### C RP, ESR, CBC, CMP #### [address] Bilirubin.total [Mass/volume ] in Serum or PlasmaOrdered By: Ghassan Ramos on 12-09-2023 Bilirubin [Mass/Vol] 0.8 mg/dL Normal 0.3-1.0 [facility] Comment on above: Performed By: #### C RP, ESR, CBC, CMP #### [address] C reactive protein [Mass/vol ume] in Serum or PlasmaOrdered By: Ghassan Ramos on 12-09-2023 CRP [Mass/Vol] 1.5 mg/dL High 0.0-0.5 [facility] C-Reactive Proteinon 024 C-Reactive Protein 1.5 mg/dL High 0.0-0.5 [facility] Comment on above: Result Comment: PERF ORMED BY: [place] [id number] PATHOLOGIST DIRECTOR BIOLOGY CARTER MARSHALL M.D. Performed By: #### C RP, ESR, CBC, CMP #### [address] Calcium [Mass/volume] in Ser um or PlasmaOrdered By: Ghassan Ramos on 12-09-2023 Calcium [Mass/Vol] 9.6 mg/dL Normal 8.6-10.3 [facility] Comment on above: Performed By: #### C RP, ESR, CBC, CMP #### [address] Carbon dioxide, total [Moles /volume] in Serum or PlasmaOrdered By: Ghassan Ramos on 12-09-2023 CO2 [Moles/Vol] 27.9 mmol/L Normal 21.0-31.0 [facility] Comment on above: Performed By: #### C RP, ESR, CBC, CMP #### [address] Chloride [Moles/volume] in S maureen or PlasmaOrdered By: Ghassan Ramos on 12-09-2023 Chloride [Moles/Vol] 104 mmol/L Normal 98-107 [facility] Comment on above: Performed By: #### C RP, ESR, CBC, CMP #### [address] Complete Blood Count Auto Di ffon 12-09-2023 Mean Corpuscular HGB Conc 34.6 g/dL Normal 32.0-35.0 [facility] Comment on above: Performed By: #### C RP, ESR, CBC, CMP #### [address] NRBC% 0.2 /100{WBC} Normal 0-0.5 [facility] Comment on above: Performed By: #### C RP, ESR, CBC, CMP #### [address] Comprehensive Metabolic Pane tono 12-09-2023 Albumin [Mass/Vol] 4.3 g/dL Normal 3.5-5.7 [facility] Comment on above: Performed By: #### C RP, ESR, CBC, CMP #### [place] [address] [place] GFR/1.73 sq M.predicted MDRD (S/P/Bld) [Vol rate/Area] mL/min/{1.73_m2} Normal [facility] Comment on above: Performed By: #### C RP, ESR, CBC, CMP #### [place] [address] [place] Creatinine [Mass/volume] in Serum or PlasmaOrdered By: Ghassan Ramos on 12-09-2023 Creatinine [Mass/Vol] 0.57 mg/dL Low 0.60-1.20 [facility] Comment on above: Performed By: #### C RP, ESR, CBC, CMP #### [address] Erythrocyte Sedimentation Ra roxann 12-09-2023 ESR (Bld) [Velocity] 27 mm/h High 0-19 [facility] Comment on above: Result Comment: PERF ORMED BY: [place] [id number] PATHOLOGIST DIRECTOR BIOLOGY CARTER MARSHALL M.D. Performed By: #### C RP, ESR, CBC, CMP #### [address] Erythrocyte distribution wid th [Ratio] by Automated countOrdered By: Ghassan Ramos on 12-09-2023 Erythrocyte distribution width (RBC) [Ratio] 13.2 % Normal 11.9-15.3 [facility] Comment on above: Performed By: #### C RP, ESR, CBC, CMP #### [address] Erythrocyte sedimentation ra te by Photometric methodOrdered By: Ghassan Ramos on 12-09-2023 ESR Photometric method (Bld) [Velocity] 27 mm/hr High 0-19 [facility] Erythrocytes [#/volume] in B lood by Automated countOrdered By: Ghassan Ramos on 12-09-2023 RBC (Bld) [#/Vol] 4.48 10*6/uL Normal 3.60-5.00 [facility] Comment on above: Performed By: #### C RP, ESR, CBC, CMP #### [address] Glucose [Mass/volume] in Ser um or PlasmaOrdered By: Ghassan Ramos on 12-09-2023 Glucose [Mass/Vol] 90 mg/dL Normal 70-100 [facility] Comment on above: ADA recommended refe rence rangeRandom Glucose Reference Range is dependent on time and content of last meal. Glucose of more than 200 mg/dL in a nonstressed, ambulatory subject supports the diagnosis of Diabetes Mellitus. Result Comment: [place] Glucose Reference Range is dependent on time and content of last meal. Glucose of more than 200 mg/dL in a nonstressed, ambulatory subject supports the diagnosis of Diabetes Mellitus. ADA recommended reference range Performed By: #### C RP, ESR, CBC, CMP #### [address] Hematocrit [Volume Fraction] of Blood by Automated countOrdered By: Ghassan Ramos on 12-09-2023 Hematocrit (Bld) [Volume fraction] 38.9 % Normal 34.0-46.4 [facility] Comment on above: Performed By: #### C RP, ESR, CBC, CMP #### [address] Hemoglobin [Mass/volume] in BloodOrdered By: Ghassan Ramos on 12-09-2023 Hemoglobin (Bld) [Mass/Vol] 13.5 g/dL Normal 11.8-15.4 [facility] Comment on above: Performed By: #### C RP, ESR, CBC, CMP #### [address] Leukocytes [#/volume] correc ting for nucleated erythrocytes in Blood by Automated counOrdered By: Ghassan Ramos on 12-09-2023 WBC corrected for nucl RBC Auto (Bld) [#/Vol] 7.2 10*3/uL 3.8-11.6 [facility] Leukocytes [#/volume] in Blo od by Automated countOrdered By: Ghassan Ramos on 12-09-2023 WBC (Bld) [#/Vol] 7.2 10*3/uL Normal 3.8-11.6 [facility] Comment on above: Performed By: #### C RP, ESR, CBC, CMP #### [place] [address] [place] Lymphocytes [#/volume] in Bl ood by Automated countOrdered By: Ghassan Ramos on 12-09-2023 Lymphocytes (Bld) [#/Vol] 1.9 10*3/uL Normal 1.00-4.8 [facility] Comment on above: Performed By: #### C RP, ESR, CBC, CMP #### [address] Lymphocytes/100 leukocytes i n Blood by Automated countOrdered By: Ghassan Ramos on 12-09-2023 Lymphocytes/100 WBC (Bld) 26.1 % Normal . [facility] Comment on above: Performed By: #### C RP, ESR, CBC, CMP #### [address] MCH [Entitic mass] by Automa ting countOrdered By: Ghassan Ramos on 12-09-2023 MCH (RBC) [Entitic mass] 30.1 pg Normal 24.7-34.3 [facility] Comment on above: Performed By: #### C RP, ESR, CBC, CMP #### [address] MCHC Auto (RBC) [Mass/Vol]Or dered By: Ghassan Ramos on 12-09-2023 MCHC (RBC) [Mass/Vol] 34.6 g/dL 32.0-35.0 [facility] MCV [Entitic volume] by Auto mated countOrdered By: Ghassan Raoms on 12-09-2023 MCV (RBC) [Entitic vol] 86.9 fL Normal 80-100 [facility] Comment on above: Performed By: #### C RP, ESR, CBC, CMP #### [address] Neutrophils [#/volume] in Bl ood by Automated countOrdered By: Ghassan Ramos on 12-09-2023 Neutrophils (Bld) [#/Vol] 4.5 10*3/uL Normal 1.8-7.7 [facility] Comment on above: Performed By: #### C RP, ESR, CBC, CMP #### [address] No Panel InformationOrdered By: Ghassan Ramos on 12-09-2023 Estimated GFR (CKD-EPI) > 60.0 mL/Min [facility] Creatinine Clearance (Chem N/A [facility] Nucleated erythrocytes [Pres ence] in Blood by Automated countOrdered By: Ghassan Ramos on 12-09-2023 Nucleated RBC Auto Ql (Bld) 0.2 /100{WBC} 0-0.5 [facility] Platelet mean volume [Entiti c volume] in Blood by Automated countOrdered By: Ghassan Ramos on 12-09-2023 Platelet mean volume (Bld) [Entitic vol] 8.5 fL Normal 6.3-10.7 [facility] Comment on above: Performed By: #### C RP, ESR, CBC, CMP #### [facility] [address] [place] [address] [place] Platelets [#/volume] in Bloo d by Automated countOrdered By: Ghassan Ramos on 12-09-2023 Platelets (Bld) [#/Vol] 349 10*3/uL Normal 150-450 [facility] Comment on above: Performed By: #### C RP, ESR, CBC, CMP #### [facility] [address] [place] [address] [place] Potassium [Moles/volume] in Serum or PlasmaOrdered By: Ghassan Ramos on 12-09-2023 Potassium [Moles/Vol] 4.4 mmol/L Normal 3.5-5.1 [facility] Comment on above: Performed By: #### C RP, ESR, CBC, CMP #### [facility] [address] [place] [address] [place] Protein [Mass/volume] in Ser um or PlasmaOrdered By: Ghassan Ramos on 12-09-2023 Protein [Mass/Vol] 6.8 g/dL Normal 6.4-8.9 [facility] Comment on above: Performed By: #### C RP, ESR, CBC, CMP #### [facility] [address] [place] [address] Serum globulin measurement b y calculation (mass/volume)Ordered By: Ghassan Ramos on 12-09-2023 Globulin (S) [Mass/Vol] 2.5 g/dL Normal F [facility] Comment on above: Performed By: #### C RP, ESR, CBC, CMP #### [address] Serum or plasma albumin/glob ulin mass ratioOrdered By: Ghassan Ramos on 12-09-2023 Albumin/Globulin [Mass ratio] 1.7 {ratio} Normal [facility] Comment on above: Performed By: #### C RP, ESR, CBC, CMP #### [address] Serum or plasma anion gap de terminationOrdered By: Ghassan Ramos on 12-09-2023 Anion gap [Moles/Vol] 10.5 mmol/L Normal 6.0-15.0 [facility] Comment on above: Performed By: #### C RP, ESR, CBC, CMP #### [address] Sodium [Moles/volume] in Ser um or PlasmaOrdered By: Ghassan Ramos on 12-09-2023 Sodium [Moles/Vol] 138 mmol/L Normal 136-145 [facility] Comment on above: Performed By: #### C RP, ESR, CBC, CMP #### [address] Urea nitrogen [Mass/volume] in Serum or PlasmaOrdered By: Ghassan Ramos on 12-09-2023 Urea nitrogen [Mass/Vol] 16 mg/dL Normal 7-25 [facility] Comment on above: Performed By: #### C RP, ESR, CBC, CMP #### [address] ALL THYROID STIM HORMONEon 0 11-09-2023 Interpretation and review of laboratory results Abnormal [facility] TSH Qn 3.894 m[IU]/L High [facility] COVID + FLU Quick Testingon 02-26-2023 SARS-CoV-2 (COVID-19) RNA LIANNE+probe Ql (Unsp spec) Positive [employer] Other COVID + FLU Quick Testing Negative [facility] [employer] Other CBC AUTO DIFFon 05-28-2022 BASO # 0.0 103/ul Normal 0.0-0.1 [facility] Comment on above: Performed By: #### C BC #### [facility] [address] [address] [address] Tracey Mccoy Basophils/100 WBC (Bld) 0.3 % Normal 0.2-2.0 [facility] Comment on above: Performed By: #### C BC #### [facility] [address] [address] [address] Tracey Mccoy EO # 0.2 103/ul Normal 0.0-0.7 [facility] Comment on above: Performed By: #### C BC #### [facility] [address] [address] [address] Tracey Mccoy Eosinophils/100 WBC (Bld) 1.7 % Normal 0.9-7.0 [facility] Comment on above: Performed By: #### C BC #### [facility] [address] [address] [address] Tracey Mccoy Erythrocyte distribution width (RBC) [Ratio] 12.4 % Normal 11.0-15.0 [facility] Comment on above: Performed By: #### C BC #### [facility] [address] [address] [address] Tracey Mccoy Hematocrit (Bld) [Volume fraction] 36.2 % Normal 36.0-48.0 [facility] Comment on above: Performed By: #### C BC #### [facility] [address] [address] [address] Tracey Mccoy Hemoglobin (Bld) [Mass/Vol] 12.2 g/dL Normal 12.0-16.0 [facility] Comment on above: Performed By: #### C BC #### [facility] [address] [address] [address] Tracey Mccoy IG # 0.05 10e3/ul Critically high 0.00-0.03 [facility] Comment on above: Performed By: #### C BC #### [facility] [address] [place] [address] Dr. Tracey Mccoy IG % 0.5 % Normal 0.0-0.5 [facility] Comment on above: Performed By: #### C BC #### [facility] [address] [place] [address] Dr. Tracey Mccoy LYMPH # 2.3 103/ul Normal 1.2-3.8 [facility] Comment on above: Performed By: #### C BC #### [facility] [address] [place] [address] Dr. Tracey Mccoy Lymphocytes/100 WBC (Bld) 25.6 % Normal 20.5-60.0 [facility] Comment on above: Performed By: #### C BC #### [facility] [address] [place] [address] Dr. Tracey Mccoy MANUAL DIFF REQ NO Normal [facility] Comment on above: Performed By: #### C BC #### [facility] [address] [place] [address] Dr. Tracey Mccoy MCH (RBC) [Entitic mass] 29.0 pg Normal 26.7-34.0 [facility] Comment on above: Performed By: #### C BC #### [facility] [address] [place] [address] Dr. Tracey Mccoy MCHC (RBC) [Mass/Vol] 33.7 g/dL Normal 29.9-35.2 [facility] Comment on above: Performed By: #### C BC #### [facility] [address] [place] [address] Dr. Tracey Mccoy MCV (RBC) [Entitic vol] 86.0 fL Normal 81.0-99.0 [facility] Comment on above: Performed By: #### C BC #### [facility] [address] [place] [address] Dr. Tracey Mccoy MONO # 0.7 103/ul Normal 0.3-0.8 [facility] Comment on above: Performed By: #### C BC #### [facility] [address] [place] [address] Dr. Tracey Mccoy Monocytes/100 WBC (Bld) 7.7 % Normal 1.7-12.0 [facility] Comment on above: Performed By: #### C BC #### [facility] [address] [place] [address] Dr. Tracey Mccoy NEUT # 5.9 103/ul Normal 1.4-6.5 [facility] Comment on above: Performed By: #### C BC #### [facility] [address] [place] [address] Dr. Tracey Mccoy Neutrophils/100 WBC (Bld) 64.2 % Normal 43.0-75.0 [facility] Comment on above: Performed By: #### C BC #### [facility] [address] [place] [address] Dr. Tracey Mccoy Platelet mean volume (Bld) [Entitic vol] 9.5 fL Normal 9.5-13.5 [facility] Comment on above: Performed By: #### C BC #### [facility] [address] [place] [address] Dr. Tracey Mccoy PLT 348 103/ul Normal 150-450 [facility] Comment on above: Performed By: #### C BC #### [facility] [address] [place] [address] Dr. Tracey Mccoy RBC 4.21 106/ul Normal 4.20-5.40 [facility] Comment on above: Performed By: #### C BC #### [facility] [address] [place] [address] Dr. Tracey Mccoy WBC 9.2 103/ul Normal 4.0-11.0 [facility] Comment on above: Performed By: #### C BC #### [facility] [address] [place] [address] Dr. Tracey Mccoy FERRITINon 05-28-2022 Ferritin [Mass/Vol] 15.0 ng/mL Normal 6.2-137.0 [facility] Comment on above: Performed By: #### F ERR #### [facility] [address] [place] [address] Dr. Tracey Mccoy MAGNESIUMon 05-28-2022 Magnesium [Mass/Vol] 1.7 mg/dL Critically low 1.8-2.4 [facility] Comment on above: Performed By: #### M G, CMP #### [facility] [address] [place] [address] Dr. Tracey Mccoy PROF 14(COMP METB)on 023 Albumin [Mass/Vol] 3.7 g/dL Normal 3.4-5.0 [facility] Comment on above: Performed By: #### M G, CMP #### [facility] [address] [place] [address] Dr. Tracey Mccoy Albumin/Globulin [Mass ratio] 1.0 {ratio} Normal [facility] Comment on above: Performed By: #### M G, CMP #### [facility] [address] [place] [address] Dr. Tracey Mccoy ALP [Catalytic activity/Vol] 89 U/L Normal 46-116 [facility] Comment on above: Performed By: #### M G, CMP #### [facility] [address] [place] [address] Dr. Tracey Mccoy ALT [Catalytic activity/Vol] 26 U/L Normal 14-59 [facility] Comment on above: Performed By: #### M G, CMP #### [facility] [address] [place] [address] Dr. Tracey Mccoy Anion gap [Moles/Vol] 13.2 mmol/L Normal [facility] Comment on above: Performed By: #### M G, CMP #### [facility] [address] [place] [address] Dr. Tracey Mccoy AST [Catalytic activity/Vol] 19 U/L Normal 15-37 [facility] Comment on above: Performed By: #### M G, CMP #### [facility] [address] [place] [address] Dr. Tracey Mccoy Bilirubin [Mass/Vol] 0.6 mg/dL Normal 0.2-1.0 [facility] Comment on above: Performed By: #### M G, CMP #### [facility] [address] [address] [address] Tracey Mccoy Calcium [Mass/Vol] 9.2 mg/dL Normal 8.5-10.1 [facility] Comment on above: Performed By: #### M G, CMP #### [facility] [address] [address] [address] Tracey Mccoy Chloride [Moles/Vol] 101 mmol/L Normal 98-107 [facility] Comment on above: Performed By: #### M G, CMP #### [facility] [address] [place] [address] Dr. Tracey Mccoy CO2 [Moles/Vol] 26.9 mmol/L Normal 21.0-32.0 [facility] Comment on above: Performed By: #### M G, CMP #### [facility] [address] [place] [address] Dr. Tracey Mccoy Creatinine [Mass/Vol] 0.47 mg/dL Critically low 0.55-1.02 [facility] Comment on above: Performed By: #### M G, CMP #### [facility] [address] [place] [address] Dr. Tracey Mccoy EGFR-AF PALAUAN >60 Normal >=60 [facility] Comment on above: Performed By: #### M G, CMP #### [facility] [address] [place] [address] Dr. Tracey Mccoy EGFR-NON AF PALAUAN >60 Normal >=60 [facility] Comment on above: Performed By: #### M G, CMP #### [facility] [address] [place] [address] Dr. Tracey Mccoy Globulin (S) [Mass/Vol] 3.6 g/dL Normal T [facility] Comment on above: Performed By: #### M G, CMP #### [facility] [address] [place] [address] Dr. Tracey Mccoy Glucose [Mass/Vol] 88 mg/dL Normal 74-106 [facility] Comment on above: Performed By: #### M G, CMP #### [facility] [address] [address] [address] Tracey Mccoy Potassium [Moles/Vol] 4.1 mmol/L Normal 3.5-5.1 [facility] Comment on above: Performed By: #### M G, CMP #### [facility] [address] [address] [address] Tracey Mccoy Protein [Mass/Vol] 7.3 g/dL Normal 6.4-8.2 [facility] Comment on above: Performed By: #### M G, CMP #### [facility] [address] [address] [address] Tracey Mccoy Sodium [Moles/Vol] 137 mmol/L Normal 136-145 [facility] Comment on above: Performed By: #### M G, CMP #### [facility] [address] [address] [address] Tracey Mccoy Urea nitrogen [Mass/Vol] 5.0 mg/dL Critically low 7.0-18.0 [facility] Comment on above: Performed By: #### M G, CMP #### [facility] [address] [address] [address] Tracey Mccoy Urea nitrogen/Creatinine [Mass ratio] 10.6 mg/mg [facility] Comment on above: Performed By: #### M G, CMP #### [facility] [address] [address] [address] Tracey Mccoy PAP ACOG PANEL 2: 30 to 65on 05-14-2022 . . Normal [facility] Comment on above: Result Comment: Perf ormed at: WB Performed By: #### [id number] #### [facility] [address] [address] [address] Tracey Mccoy Age Gdln ACOG Testing 30-65 [facility] Comment on above: Performed By: #### [id number] #### [facility] [address] [place] [address] Dr. Tracey Mccoy DIAGNOSIS: Comment Normal [facility] Comment on above: Result Comment: NEGA TIVE FOR INTRAEPITHELIAL LESION OR MALIGNANCY. Performed at: WB Performed By: #### [id number] #### [facility] [address] [place] [address] Dr. Tracey Mccoy HPV Aptima Negative Normal Negative [facility] Comment on above: Result Comment: This nucleic acid amplification test detects fourteen high-risk HPV types (16,18,31,33,35,39,45,51,52,56,58,59,66,68) without differentiation. Performed at: =G Performed By: #### [id number] #### [facility] [address] [address] [address] Tracey Mccoy HPV Genotype Reflex Comment Normal [facility] Comment on above: Result Comment: Crit eria not met, HPV Genotype not performed. Performed at: WB Performed By: #### [id number] #### [facility] [address] [place] [address] Dr. Tracey Mccoy Methodology: Comment Normal [facility] Comment on above: Result Comment: This liquid based ThinPrep(R) pap test was screened with the use of an image guided system. Performed at: WB Performed By: #### [id number] #### [facility] [address] [place] [address] Dr. Tracey Mccoy Note: Comment Normal [facility] Comment on above: Result Comment: The Pap smear is a screening test designed to aid in the detection of premalignant and malignant conditions of the uterine cervix. It is not a diagnostic procedure and should not be used as the sole means of detecting cervical cancer. Both false-positive and false-negative reports do occur. . Performed at: WB Performed By: #### [id number] #### [facility] [address] [address] [address] Tracey Mccoy Performed by: Comment Normal [facility] Comment on above: Result Comment: Daysi Cheema, Cylinder Dyer Performed at: WB Performed By: #### [id number] #### [facility] [address] [place] [address] Dr. Tracey Mccoy Specimen adequacy: Comment Normal [facility] Comment on above: Result Comment: Sati sfactory for evaluation. Endocervical and/or squamous metaplastic cells (endocervical component) are present. Performed at: WB Performed By: #### [id number] #### [facility] [address] [place] [address] Dr. Tracey Mccoy BNPon 02-23-2022 Natriuretic peptide B (Bld) [Mass/Vol] 37.0 pg/mL Normal <=450.0 [facility] Comment on above: Performed By: #### B HOME BASED ASSISTANT #### [facility] [address] [place] [address] Dr. Tracey Mccoy CBC AUTO DIFFon 02-23-2022 BASO # 0.0 103/ul Normal 0.0-0.1 [facility] Comment on above: Performed By: #### C BC #### [facility] [address] [place] [address] Dr. Tracey Mccoy Basophils/100 WBC (Bld) 0.3 % Normal 0.2-2.0 [facility] Comment on above: Performed By: #### C BC #### [facility] [address] [place] [address] Dr. Tracey Mccoy EO # 0.0 103/ul Normal 0.0-0.7 [facility] Comment on above: Performed By: #### C BC #### [facility] [address] [place] [address] Dr. Tracey Mccoy Eosinophils/100 WBC (Bld) 0.3 % Critically low 0.9-7.0 [facility] Comment on above: Performed By: #### C BC #### [facility] [address] [place] [address] Dr. Tracey Mccoy Erythrocyte distribution width (RBC) [Ratio] 12.9 % Normal 11.0-15.0 [facility] Comment on above: Performed By: #### C BC #### [facility] [address] [place] [address] Dr. Tracey Mccoy Hematocrit (Bld) [Volume fraction] 37.5 % Normal 36.0-48.0 [facility] Comment on above: Performed By: #### C BC #### [facility] [address] [place] [address] Dr. Tracey Mccoy Hemoglobin (Bld) [Mass/Vol] 12.1 g/dL Normal 12.0-16.0 [facility] Comment on above: Performed By: #### C BC #### [facility] [address] [place] [address] Dr. Tracey Mccoy IG # 0.02 10e3/ul Normal 0.00-0.03 [facility] Comment on above: Performed By: #### C BC #### [facility] [address] [place] [address] Dr. Tracey Mccoy IG % 0.3 % Normal 0.0-0.5 [facility] Comment on above: Performed By: #### C BC #### [facility] [address] [place] [address] Dr. Tracey Mccoy LYMPH # 2.0 103/ul Normal 1.2-3.8 [facility] Comment on above: Performed By: #### C BC #### [facility] [address] [place] [address] Dr. Tracey Mccoy Lymphocytes/100 WBC (Bld) 28.4 % Normal 20.5-60.0 [facility] Comment on above: Performed By: #### C BC #### [facility] [address] [place] [address] Dr. Tracey Mccoy MANUAL DIFF REQ NO Normal [facility] Comment on above: Performed By: #### C BC #### [facility] [address] [place] [address] Dr. Tracey Mccoy MCH (RBC) [Entitic mass] 28.5 pg Normal 26.7-34.0 [facility] Comment on above: Performed By: #### C BC #### [facility] [address] [place] [address] Dr. Tracey Mccoy MCHC (RBC) [Mass/Vol] 32.3 g/dL Normal 29.9-35.2 [facility] Comment on above: Performed By: #### C BC #### [facility] [address] [place] [address] Dr. Tracey Mccoy MCV (RBC) [Entitic vol] 88.4 fL Normal 81.0-99.0 [facility] Comment on above: Performed By: #### C BC #### [facility] [address] [place] [address] Dr. Tracey Mccoy MONO # 0.5 103/ul Normal 0.3-0.8 [facility] Comment on above: Performed By: #### C BC #### [facility] [address] [place] [address] Dr. Tracey Mccoy Monocytes/100 WBC (Bld) 7.7 % Normal 1.7-12.0 [facility] Comment on above: Performed By: #### C BC #### [facility] [address] [place] [address] Dr. Tracey Mccoy NEUT # 4.4 103/ul Normal 1.4-6.5 [facility] Comment on above: Performed By: #### C BC #### [facility] [address] [place] [address] Dr. Tracey Mccoy Neutrophils/100 WBC (Bld) 63.0 % Normal 43.0-75.0 [facility] Comment on above: Performed By: #### C BC #### [facility] [address] [place] [address] Dr. Tracey Mccoy Platelet mean volume (Bld) [Entitic vol] 9.2 fL Critically low 9.5-13.5 [facility] Comment on above: Performed By: #### C BC #### [facility] [address] [place] [address] Dr. Tracey Mccoy PLT 278 103/ul Normal 150-450 [facility] Comment on above: Performed By: #### C BC #### [facility] [address] [place] [address] Dr. Tracey Mccoy RBC 4.24 106/ul Normal 4.20-5.40 [facility] Comment on above: Performed By: #### C BC #### [facility] [address] [place] [address] Dr. Tracey Mccoy WBC 6.9 103/ul Normal 4.0-11.0 [facility] Comment on above: Performed By: #### C BC #### [facility] [address] [place] [address] Dr. Tracey Mccoy PROF 14(COMP METB)on 022 Albumin [Mass/Vol] 3.7 g/dL Normal 3.4-5.0 [facility] Comment on above: Performed By: #### C JASIEL, HSTROPN #### [facility] [address] [place] [address] Dr. Tracey Mccoy Albumin/Globulin [Mass ratio] 0.9 {ratio} Normal [facility] Comment on above: Performed By: #### C JASIEL, HSTROPN #### [facility] [address] [place] [address] Dr. Tracey Mccoy ALP [Catalytic activity/Vol] 103 U/L Normal 46-116 [facility] Comment on above: Performed By: #### C JASIEL HSTROPN #### [facility] [address] [place] [address] Dr. Tracey Mccoy ALT [Catalytic activity/Vol] 67 U/L Critically high 14-59 [facility] Comment on above: Performed By: #### C JASIEL, HSTROPN #### [facility] [address] [place] [address] Dr. Tracey Mccoy Anion gap [Moles/Vol] 9.6 mmol/L Normal [facility] Comment on above: Performed By: #### C JASIEL, HSTROPN #### [facility] [address] [place] [address] Dr. Tracey Mccoy AST [Catalytic activity/Vol] 100 U/L Critically high 15-37 [facility] Comment on above: Performed By: #### C JASIEL, HSTROPN #### [facility] [address] [place] [address] Dr. Tracey Mccoy Bilirubin [Mass/Vol] 0.4 mg/dL Normal 0.2-1.0 [facility] Comment on above: Performed By: #### C JASIEL, HSTROPN #### [facility] [address] [address] [address] Tracey Mccoy Calcium [Mass/Vol] 8.8 mg/dL Normal 8.5-10.1 [facility] Comment on above: Performed By: #### C MP, HSTROPN #### [facility] [address] [address] [address] Tracey Mccoy Chloride [Moles/Vol] 104 mmol/L Normal 98-107 [facility] Comment on above: Performed By: #### C MP, HSTROPN #### [facility] [address] [address] [address] Tracey Mccoy CO2 [Moles/Vol] 28.5 mmol/L Normal 21.0-32.0 [facility] Comment on above: Performed By: #### C MP, HSTROPN #### [facility] [address] [address] [address] Tracey Mccoy Creatinine [Mass/Vol] 0.71 mg/dL Normal 0.55-1.02 [facility] Comment on above: Performed By: #### C MP, HSTROPN #### [facility] [address] [address] [address] Tracey Mccoy EGFR-AF PALAUAN >60 Normal >=60 [facility] Comment on above: Performed By: #### C MP, HSTROPN #### [facility] [address] [address] [address] Tracey Mccoy EGFR-NON AF PALAUAN >60 Normal >=60 [facility] Comment on above: Performed By: #### C MP, HSTROPN #### [facility] [facility] [address] [address] [address] Tracey Mccoy Globulin (S) [Mass/Vol] 3.9 g/dL Normal [facility] Comment on above: Performed By: #### C MP, HSTROPN #### [facility] [address] [address] [address] Tracey Mccoy Glucose [Mass/Vol] 113 mg/dL Critically high 74-106 [facility] Comment on above: Performed By: #### C MP, HSTROPN #### [facility] [address] [address] [address] Tracey Mccoy Potassium [Moles/Vol] 3.1 mmol/L Critically low 3.5-5.1 [facility] Comment on above: Performed By: #### C MP, HSTROPN #### [facility] [address] [address] [address] Tracey Mccoy Protein [Mass/Vol] 7.6 g/dL Normal 6.4-8.2 [facility] Comment on above: Performed By: #### C MP, HSTROPN #### [facility] [address] [place] [address] Dr. Tracey Mccoy Sodium [Moles/Vol] 139 mmol/L Normal 136-145 [facility] Comment on above: Performed By: #### C MP, HSTROPN #### [facility] [address] [address] [address] Tracey Mccoy Urea nitrogen [Mass/Vol] 9.0 mg/dL Normal 7.0-18.0 [facility] Comment on above: Performed By: #### C MP, HSTROPN #### [facility] [address] [address] [address] Tracey Mccoy Urea nitrogen/Creatinine [Mass ratio] 12.7 mg/mg Normal [facility] Comment on above: Performed By: #### C MP, HSTROPN #### [facility] [address] [place] [address] Dr. Tracey Mccoy TROPONIN, HIGH SENSITIVITYon 02-23-2022 HSTROP 5.8 pg/mL Normal 4.0-51.3 [facility] Comment on above: Result Comment: CUT- OFF POINTS HAVE BEEN ESTABLISHED BASED ON THE FOURTH UNIVERSAL DEFINITIONS OF MYOCARDIAL INFARCTION. THE UPPER REFERENCE LIMIT (URL) OF TROPONIN, DEFINED THE 99TH PERCENTILE OF cTnI DISTRIBUTION IN A REFERENCE POPULATION, HAS BEEN CONFIRMED THE DECISION THRESHOLD FOR [place] DIAGNOSIS. Performed By: #### C MP, HSTROPN #### [facility] [address] [place] [address] Dr. Tracey Mccoy XR CHEST 1 Von [...] by: CHAN RICHEY Date: 2022-02-23 03:04 Normal [facility] Vital Signs Date Time Vital Sign Value Performing Clinician Facility 08-08-2024 14:25-0400 Body mass index (BMI) [Ratio] 47.45 kg/m2 Elvie Percy HOME BASED ASSISTANT Work Phone: [facility] 08-08-2024 14:25-0400 Body temperature 97.81 [degF] Elvie Percy HOME BASED ASSISTANT Work Phone: [facility] 08-08-2024 14:25-0400 Body weight 133.36 kg Elvie Greer HOME BASED ASSISTANT Work Phone: [facility] 08-08-2024 14:25-0400 Diastolic blood pressure 88 mm[Hg] Elvie Greer HOME BASED ASSISTANT Work Phone: [facility] 08-08-2024 14:25-0400 Heart rate 88 /min Elvie Greer HOME BASED ASSISTANT Work Phone: [facility] 08-08-2024 14:25-0400 Respiratory rate 20 /min Elvie Greer HOME BASED ASSISTANT Work Phone: [facility] 08-08-2024 14:25-0400 SaO2% (BldA) [Mass fraction] 98 % Elvie Percy HOME BASED ASSISTANT Work Phone: [facility] 08-08-2024 14:25-0400 Systolic blood pressure 118 mm[Hg] Elvie Percy HOME BASED ASSISTANT Work Phone: [facility] 08-03-2024 11:53-0400 Body mass index (BMI) [Ratio] 47.63 kg/m2 Javier Andrew DO Work Phone: [facility] 08-03-2024 11:53-0400 Body weight 133.87 kg Javier Andrew DO Work Phone: [facility] 08-03-2024 11:53-0400 Diastolic blood pressure 88 mm[Hg] Javier Andrew DO Work Phone: [facility] 08-03-2024 11:53-0400 Systolic blood pressure 138 mm[Hg] Javier Andrew DO Work Phone: [facility] 06-22-2024 16:08-0400 Body height 167.6 cm Chan Khan DO Work Phone: [facility] 06-22-2024 16:08-0400 Body mass index (BMI) [Ratio] 48.45 kg/m2 Chan Khan DO Work Phone: [facility] 06-22-2024 16:08-0400 Body weight 136.17 kg Chan Khan DO Work Phone: [facility] 06-20-2024 15:31-0400 Diastolic blood pressure 88 mm[Hg] Elvie Percy HOME BASED ASSISTANT Work Phone: [facility] 06-20-2024 15:31-0400 Systolic blood pressure 132 mm[Hg] Elvie Percy HOME BASED ASSISTANT Work Phone: [facility] 06-20-2024 14:53-0400 Body mass index (BMI) [Ratio] 48.94 kg/m2 Elvie Percy HOME BASED ASSISTANT Work Phone: [facility] 06-20-2024 14:53-0400 Body temperature 98.49 [degF] Elvie Greer HOME BASED ASSISTANT Work Phone: [facility] 06-20-2024 14:53-0400 Body weight 137.53 kg Elvie Greer HOME BASED ASSISTANT Work Phone: [facility] 06-20-2024 14:53-0400 Heart rate 92 /min Elvie Greer HOME BASED ASSISTANT Work Phone: [facility] 06-20-2024 14:53-0400 Respiratory rate 20 /min Elvie Greer HOME BASED ASSISTANT Work Phone: [facility] 06-20-2024 14:53-0400 SaO2% (BldA) [Mass fraction] 99 % Elvie Greer HOME BASED ASSISTANT Work Phone: [facility] 05-30-2024 10:10-0400 Body mass index (BMI) [Ratio] 48.55 kg/m2 Javier Andrew DO Work Phone: [facility] 05-30-2024 10:10-0400 Body weight 136.44 kg Javier Andrew DO Work Phone: [facility] 05-30-2024 10:10-0400 Diastolic blood pressure 90 mm[Hg] Javier Andrew DO Work Phone: [facility] 05-30-2024 10:10-0400 Systolic blood pressure 110 mm[Hg] Javier Andrew DO Work Phone: [facility] 05-09-2024 08:41-0500 Body height 167.6 cm Elvie Greer HOME BASED ASSISTANT Work Phone: [facility] 05-09-2024 08:41-0500 Body mass index (BMI) [Ratio] 48.1 kg/m2 Elvie Greer HOME BASED ASSISTANT Work Phone: [facility] 05-09-2024 08:41-0500 Body temperature 98.71 [degF] Elvie Flowernikolas HOME BASED ASSISTANT Work Phone: [facility] 05-09-2024 08:41-0500 Body weight 135.17 kg Elvie Greer HOME BASED ASSISTANT Work Phone: [facility] 05-09-2024 08:41-0500 Diastolic blood pressure 82 mm[Hg] Elvie Greer HOME BASED ASSISTANT Work Phone: [facility] 05-09-2024 08:41-0500 Heart rate 91 /min Elvie Greer HOME BASED ASSISTANT Work Phone: [facility] 05-09-2024 08:41-0500 Respiratory rate 19 /min Elvie Greer HOME BASED ASSISTANT Work Phone: [facility] 05-09-2024 08:41-0500 SaO2% (BldA) [Mass fraction] 97 % Elvie Greer HOME BASED ASSISTANT Work Phone: [facility] 05-09-2024 08:41-0500 Systolic blood pressure 118 mm[Hg] Elvie Greer HOME BASED ASSISTANT Work Phone: [facility] 03-23-2024 14:45-0500 Body height 167.6 cm Chan Khan DO Work Phone: [facility] 03-23-2024 14:45-0500 Body mass index (BMI) [Ratio] 47.78 kg/m2 Chan Khan DO Work Phone: [facility] 03-23-2024 14:45-0500 Body weight 134.26 kg Chan Khan DO Work Phone: [facility] 02-21-2024 16:57-0500 Heart rate 80 /min Chan Khan [facility] 02-21-2024 16:57-0500 SaO2% (BldA) [Mass fraction] 99 % Chan Khan [facility] 02-21-2024 16:56-0500 Blood Pressure Location Chan Khan [facility] 02-21-2024 16:56-0500 Diastolic blood pressure 79 mm[Hg] Chan Khan [facility] 02-21-2024 16:56-0500 Mean blood pressure 92 mm[Hg] Chan Loren [facility] 02-21-2024 16:56-0500 Systolic blood pressure 119 mm[Hg] Chan Loren [facility] 02-21-2024 16:56-0500 Respiratory rate 16 /min Chan Loren [facility] 02-21-2024 16:13-0500 Heart rate 60 /min Chan Loren [facility] 02-21-2024 16:13-0500 SaO2% (BldA) [Mass fraction] 98 % Chan Khan [facility] 02-21-2024 16:13-0500 Respiratory rate 18 /min Chan Loren [facility] 02-21-2024 16:13-0500 Blood Pressure Location Chan Loren [facility] 02-21-2024 16:13-0500 Diastolic blood pressure 69 mm[Hg] Chan Loren [facility] 02-21-2024 16:13-0500 Mean blood pressure 82 mm[Hg] Chan Loren [facility] 02-21-2024 16:13-0500 Systolic blood pressure 108 mm[Hg] Chan Khan [facility] 02-21-2024 13:38-0500 Heart rate 78 /min Chan Loren [facility] 02-21-2024 13:38-0500 SaO2% (BldA) [Mass fraction] 100 % Chan Khan [facility] 02-21-2024 13:37-0500 Blood Pressure Location Chan Khan [facility] 02-21-2024 13:37-0500 Diastolic blood pressure 74 mm[Hg] Chan Khan [facility] 02-21-2024 13:37-0500 Mean blood pressure 86 mm[Hg] Chan Khan [facility] 02-21-2024 13:37-0500 Systolic blood pressure 111 mm[Hg] Chan Khan [facility] 02-21-2024 13:37-0500 Respiratory rate 16 /min Chan Khan [facility] 02-21-2024 13:30-0500 Body temperature 96.8 [degF] Chan Khan [facility] 02-21-2024 13:30-0500 Respiratory rate 13 /min Chan Khan [facility] 02-21-2024 13:25-0500 Respiratory rate 17 /min Chan Khan [facility] 02-21-2024 13:10-0500 Respiratory rate 20 /min Chan Khan [facility] 02-21-2024 12:27-0500 Body temperature 97.16 [degF] Chan Khan [facility] 02-21-2024 08:25-0500 Body temperature 97.7 [degF] Chan Loren [facility] 02-08-2024 08:27-0500 Body height 167.6 cm Elvie Greer HOME BASED ASSISTANT Work Phone: [facility] 02-08-2024 08:27-0500 Body mass index (BMI) [Ratio] 47.81 kg/m2 Elvie Greer HOME BASED ASSISTANT Work Phone: [facility] 02-08-2024 08:27-0500 Body temperature 98.6 [degF] Elvie Greer HOME BASED ASSISTANT Work Phone: [facility] 02-08-2024 08:27-0500 Body weight 134.35 kg Elvie Flowerz HOME BASED ASSISTANT Work Phone: [facility] 02-08-2024 08:27-0500 Diastolic blood pressure 88 mm[Hg] Elvie Riosholz HOME BASED ASSISTANT Work Phone: [facility] 02-08-2024 08:27-0500 Heart rate 89 /min Evlie Gabrielholz HOME BASED ASSISTANT Work Phone: [facility] 02-08-2024 08:27-0500 Respiratory rate 20 /min Elviecruzito Riosholz HOME BASED ASSISTANT Work Phone: [facility] 02-08-2024 08:27-0500 SaO2% (BldA) [Mass fraction] 98 % Elvie Flowerz HOME BASED ASSISTANT Work Phone: [facility] 02-08-2024 08:27-0500 Systolic blood pressure 120 mm[Hg] Elvie Englishhholz HOME BASED ASSISTANT Work Phone: [facility] 01-25-2024 08:41-0500 Diastolic blood pressure 80 mm[Hg] Chan Khan [facility] 01-25-2024 08:41-0500 Heart rate 78 /min Chan Khan [facility] 01-25-2024 08:41-0500 Mean blood pressure 98 mm[Hg] Chan Khan [facility] 01-25-2024 08:41-0500 Systolic blood pressure 134 mm[Hg] Chan Khan [facility] 01-25-2024 08:41-0500 Body temperature 97.88 [degF] Chan Khan [facility] 01-25-2024 08:41-0500 Respiratory rate 17 /min Chan Khan [facility] 01-25-2024 08:40-0500 Heart rate 76 /min Chan Khan [facility] 01-25-2024 08:40-0500 SaO2% (BldA) [Mass fraction] 100 % Chan Khan [facility] 01-25-2024 08:40-0500 Diastolic blood pressure 80 mm[Hg] Chan Khan [facility] 01-25-2024 08:40-0500 Mean blood pressure 95 mm[Hg] Chan Khan [facility] 01-25-2024 08:40-0500 Systolic blood pressure 127 mm[Hg] Chan Khan [facility] 01-13-2024 15:18-0500 Body height 167.6 cm Chan Loren ARELLANO Work Phone: [facility] 01-13-2024 15:18-0500 Body mass index (BMI) [Ratio] 48.1 kg/m2 Chan Loren ARELLANO Work Phone: [facility] 01-13-2024 15:18-0500 Body weight 135.17 kg Chan Loren ARELLANO Work Phone: [facility] 11-26-2023 10:57-0400 Body height 165.1 cm [facility] 11-26-2023 10:57-0400 Body mass index (BMI) [Ratio] 51.1 kg/m2 [facility] 11-26-2023 10:57-0400 Body temperature 97.8 [degF] [facility] 11-26-2023 10:57-0400 Body weight 139.47 kg [facility] 11-26-2023 10:57-0400 Diastolic blood pressure 86 mm[Hg] [facility] 11-26-2023 10:57-0400 Heart rate 98 /min [facility] 11-26-2023 10:57-0400 Respiratory rate 16 /min [facility] 11-26-2023 10:57-0400 SaO2% (BldA) [Mass fraction] 99 % [facility] 11-26-2023 10:57-0400 Systolic blood pressure 129 mm[Hg] [facility] 11-09-2023 14:04-0400 Body mass index (BMI) [Ratio] 51.62 kg/m2 Elvie Greer HOME BASED ASSISTANT Work Phone: [facility] 11-09-2023 14:04-0400 Body temperature 97.81 [degF] Elvie Greer HOME BASED ASSISTANT Work Phone: [facility] 11-09-2023 14:04-0400 Body weight 140.71 kg Elvie Greer HOME BASED ASSISTANT Work Phone: [facility] 11-09-2023 14:04-0400 Diastolic blood pressure 86 mm[Hg] Elvie Flowerz HOME BASED ASSISTANT Work Phone: [facility] 11-09-2023 14:04-0400 Heart rate 84 /min Elvie Greer HOME BASED ASSISTANT Work Phone: [facility] 11-09-2023 14:04-0400 SaO2% (BldA) [Mass fraction] 100 % Elvie Greer HOME BASED ASSISTANT Work Phone: [facility] 11-09-2023 14:04-0400 Systolic blood pressure 128 mm[Hg] Elvie Flowerz HOME BASED ASSISTANT Work Phone: [facility] 02-26-2023 09:45-0500 Body height 157.48 cm Mary Jo Thibodeaux Other [employer] Other 02-26-2023 09:45-0500 Body mass index (BMI) [Ratio] 57.13 kg/m2 Mary Jo Thibodeaux Other [facility] Other 02-26-2023 09:45-0500 Body temperature 97.2 [degF] Mary Jo Morelia Other [employer] Other 02-26-2023 09:45-0500 Body weight 141.7 kg Mary Jo Thibodeaux Other [employer] Other 02-26-2023 09:45-0500 Diastolic blood pressure 86 mm[Hg] Mary Jo Thibodeaux Other [employer] Other 02-26-2023 09:45-0500 Respiratory rate 18 /min Mary Jo Thibodeaux Other [employer] Other 02-26-2023 09:45-0500 SaO2% (BldA) [Mass fraction] 98 % Mary Jo Thibodeaux Other [employer] Other 02-26-2023 09:45-0500 Systolic blood pressure 136 mm[Hg] Mary Jo Thibodeaux Other [employer] Other Encounters Encounter Date Encounter Type Care Provider Facility Start: 08-08-2024 End: 08-08-2024 Office outpatient visit 25 minutes Elvie Greer HOME BASED ASSISTANT Work Phone: [facility] Comment on above: Heart palpitations ( Primary Dx); Ventricular arrhythmia; Gastroesophageal reflux disease, unspecified whether esophagitis present; Morbid (severe) obesity due to excess calories (CMS/HCC); Anxiety and depression (CMS/HCC); Environmental and seasonal allergies; Moderate persistent asthma without complication (CMS/HCC) Start: 08-08-2024 End: 08-08-2024 ambulatory ELVIE GREER Not Available Start: 08-08-2024 End: 08-08-2024 Bamboo flowsheet Elvie Greer HOME BASED ASSISTANT Work Phone: [facility] Start: 08-08-2024 End: 08-08-2024 Bamboo flowsheet Elvie Greer HOME BASED ASSISTANT Work Phone: [facility] Start: 08-03-2024 End: 08-03-2024 Orders Only Elvie Greer HOME BASED ASSISTANT Work Phone: [facility] Comment on above: Heart palpitations ( Primary Dx); Morbid (severe) obesity due to excess calories (CMS/HCC); Ventricular arrhythmia; Abnormal electrocardiogram (ECG) (EKG) Heart palpitations ( Primary Dx); Ventricular arrhythmia Start: 08-03-2024 End: 08-03-2024 Office outpatient visit 15 minutes Javier Morales DO Work Phone: [facility] Comment on above: Hormone disorder Start: 07-12-2024 End: 07-12-2024 Refill Elvie Percy HOME BASED ASSISTANT Work Phone: [facility] Comment on above: Hypothyroidism, unsp ecified type (CMS/HCC) (Primary Dx) Start: 07-11-2024 End: 07-11-2024 Clinisync Result Encounter Elvie Chingz HOME BASED ASSISTANT Work Phone: [facility] Unsolicited Start: 07-11-2024 End: 07-11-2024 Clinisync Result Encounter Elvie Amadorhholz HOME BASED ASSISTANT Work Phone: [facility] Unsolicited Start: 06-27-2024 End: 06-27-2024 Clinisync Result Encounter Elvie Aichholz HOME BASED ASSISTANT Work Phone: [facility] Unsolicited Start: 06-27-2024 End: 06-27-2024 Clinisync Result Encounter Elvie Aichholz HOME BASED ASSISTANT Work Phone: [facility] Unsolicited Start: 06-27-2024 End: 06-27-2024 Refill Elvie Aichholz HOME BASED ASSISTANT Work Phone: [facility] Comment on above: Hypomagnesemia (Prim yaw Dx) Start: 06-22-2024 End: 06-22-2024 Patient encounter procedure Chan Khan DO Work Phone: [facility] Comment on above: Aftercare following right knee joint replacement surgery (Primary Dx) Start: 06-22-2024 End: 06-22-2024 ambulatory CHAN KHAN Not Available Start: 06-22-2024 End: 06-22-2024 ambulatory CHAN KHAN Not Available Start: 06-20-2024 End: 06-20-2024 ambulatory ELVIE GREER Not Available Start: 06-20-2024 End: 06-20-2024 Office outpatient visit 25 minutes Elvie Greer HOME BASED ASSISTANT Work Phone: [facility] Comment on above: Heart palpitations ( Primary Dx); Gastroesophageal reflux disease, unspecified whether esophagitis present; Morbid (severe) obesity due to excess calories ([facility]); Hypomagnesemia Start: 06-20-2024 End: 06-20-2024 Bamboo flowsheet Elvie Greer HOME BASED ASSISTANT Work Phone: [facility] Start: 06-20-2024 End: 06-20-2024 Bamboo flowsheet Elvie Greer HOME BASED ASSISTANT Work Phone: [facility] Start: 06-09-2024 End: 06-11-2024 Refill Elvie Greer HOME BASED ASSISTANT Work Phone: [facility] Comment on above: Anxiety and depressi on (CMS/HCC) Start: 05-30-2024 End: 05-30-2024 Patient encounter procedure Javier Andrew DO Work Phone: [facility] Start: 05-30-2024 End: 05-30-2024 Periodic preventive med est patient 40-64yrs Javier Andrew DO Work Phone: [facility] Comment on above: Well woman exam with routine gynecological exam; Encounter for screening mammogram for malignant neoplasm of breast Start: 05-30-2024 End: 05-30-2024 ambulatory JAVIER ANDREW Not Available Start: 05-25-2024 End: 05-25-2024 Admission to same day surgery center Kylee Fernandez PT [facility] Comment on above: Acute postoperative pain of right knee (Primary Dx); Status post right knee replacement; Aftercare following right knee joint replacement surgery; Arthritis of knee, right Start: 05-25-2024 End: 05-25-2024 ambulatory Kylee Fernandez PT [facility] Start: 05-23-2024 End: 05-23-2024 ambulatory KYLEE FERNANDEZ Not Available Start: 05-16-2024 End: 05-16-2024 ambulatory KYLEE FERNANDEZ Not Available Start: 05-16-2024 End: 05-16-2024 Bamboo flowsheet Kylee Fernandez PT [facility] Start: 05-16-2024 End: 05-16-2024 Bamboo flowsheet Kylee Fernandez PT [facility] Start: 05-10-2024 End: 05-11-2024 ambulatory Kylee Fernandez PT [facility] Start: 05-10-2024 End: 05-10-2024 Admission to same day surgery center Kylee Fernandez PT [facility] Comment on above: Acute postoperative pain of right knee (Primary Dx); Status post right knee replacement; Aftercare following right knee joint replacement surgery; Arthritis of knee, right; Presence of right artificial knee joint Hypothyroidism, unsp ecified type (CMS/HCC) (Primary Dx); Hypomagnesemia Start: 05-10-2024 End: 05-10-2024 Clinisync Result Encounter Elvie Greer HOME BASED ASSISTANT Work Phone: [facility] External Department Unsolicited Start: 05-10-2024 End: 05-10-2024 Clinisync Result Encounter Elvie Greer HOME BASED ASSISTANT Work Phone: [facility] External Department Unsolicited Start: 05-09-2024 End: 05-09-2024 Office outpatient visit 25 minutes Elvie Greer NP Work Phone: [facility] Comment on above: Hypothyroidism due t o [...] Admission to same day surgery center Kylee Jim PT [facility] Comment on above: Acute postoperative pain of right knee (Primary Dx); Status post right knee replacement; Aftercare following right knee joint replacement surgery; Arthritis of knee, right; Presence of right artificial knee joint; Primary osteoarthritis of right knee Start: 05-08-2024 End: 05-08-2024 ambulatory Kylee Jim PT [facility] Start: 05-08-2024 End: 05-08-2024 Bamboo flowsheet Kylee Jim PT [facility] Start: 05-08-2024 End: 05-08-2024 Bamboo flowsheet Kylee Fernandez PT [facility] Start: 05-03-2024 End: 05-03-2024 Admission to same day surgery center Kylee Jim PT [facility] Comment on above: Acute postoperative pain of right knee (Primary Dx); Status post right knee replacement; Aftercare following right knee joint replacement surgery; Arthritis of knee, right Start: 05-03-2024 End: 05-03-2024 Bamboo flowsheet Kylee Jim PT [facility] Start: 05-03-2024 End: 05-03-2024 Bamboo flowsheet Kylee Fernandez PT [facility] Start: 05-03-2024 End: 05-03-2024 ambulatory Kylee Jim PT [facility] Start: 05-01-2024 End: 05-01-2024 Bamboo flowsheet Kylee Jim PT [facility] Start: 05-01-2024 End: 05-01-2024 Bamboo flowsheet Kylee Fernandez PT [facility] Start: 05-01-2024 End: 05-01-2024 Admission to same day surgery center Kylee Jim PT [facility] Comment on above: Acute postoperative pain of right knee (Primary Dx); Status post right knee replacement; Aftercare following right knee joint replacement surgery; Arthritis of knee, right; Presence of right artificial knee joint; Primary osteoarthritis of right knee Start: 05-01-2024 End: 05-01-2024 ambulatory Kylee Fernandez PT [facility] Start: 04-26-2024 End: 04-26-2024 Bamboo flowsheet Sumeet Carter DIRECTOR OF TAX SERVICES [facility] Start: 04-26-2024 End: 04-26-2024 Bamboo flowsheet Sumeet Carter DIRECTOR OF TAX SERVICES [facility] Start: 04-26-2024 End: 04-26-2024 ambulatory Sumeet Carter DIRECTOR OF TAX SERVICES [facility] Comment on above: Acute [...] to same day surgery center Elis Duvall DIRECTOR OF TAX SERVICES [facility] Comment on above: Acute postoperative pain of right knee (Primary Dx); Status post right knee replacement; Difficulty walking; Aftercare following right knee joint replacement surgery Start: 04-12-2024 End: 04-12-2024 ambulatory Elis Duvall DIRECTOR OF TAX SERVICES [facility] Start: 04-12-2024 End: 04-12-2024 Bamboo flowsheet Elis Duvall DIRECTOR OF TAX SERVICES [facility] Start: 04-12-2024 End: 04-12-2024 Bamboo flowsheet Elis Duvall DIRECTOR OF TAX SERVICES [facility] Start: 04-10-2024 End: 04-10-2024 [...] knee replacement Start: 04-05-2024 End: 04-06-2024 ambulatory Sumeetjada Carter DIRECTOR OF TAX SERVICES [facility] Comment on above: Arthritis of knee, r ight (Primary Dx); Acute postoperative pain of right knee; Status post right knee replacement; Difficulty walking Start: 04-05-2024 End: 04-05-2024 Refill Elvie Greer HOME BASED ASSISTANT Work Phone: [facility] Comment on above: Moderate persistent asthma, [...] Start: 03-28-2024 End: 03-29-2024 ambulatory Baldomero Stephenson DIRECTOR OF TAX SERVICES [facility] Comment on above: Arthritis of knee, r ight (Primary Dx); Acute postoperative pain of right knee; Status post right knee replacement Start: 03-28-2024 End: 03-28-2024 Bamboo flowsheet Baldomero Stephenson DIRECTOR OF TAX SERVICES [facility] Start: 03-28-2024 End: 03-28-2024 Bamboo flowsheet Baldomero Stephenson DIRECTOR OF TAX SERVICES [facility] Start: 03-23-2024 End: 03-23-2024 [...] 03-21-2024 End: 03-21-2024 Bamboo flowsheet Baldomero Stephenson DIRECTOR OF TAX SERVICES [facility] Start: 03-21-2024 End: 03-21-2024 Bamboo flowsheet Baldomero Stephenson DIRECTOR OF TAX SERVICES [facility] Start: 03-15-2024 End: 03-15-2024 [...] Clinical Support Mariano Mcbride PT Work Phone: [facility] Comment on above: Arthritis of knee, r ight (Primary Dx); Acute postoperative pain of right knee; Status post right knee replacement; Difficulty walking Start: 02-28-2024 End: 02-28-2024 Clinical Support Mariano Mcbride PT Work Phone: [facility] Comment on above: Arthritis of knee, r ight (Primary Dx); Acute postoperative pain of right knee; Status post right knee replacement; Difficulty walking Start: 02-24-2024 End: 02-24-2024 Clinical Support Mariano Mcbride PT Work Phone: [facility] Comment on above: Arthritis of knee, r ight (Primary Dx); Acute postoperative pain of right knee; Status post right knee replacement; Difficulty walking Start: 02-23-2024 End: 02-23-2024 ambulatory MARIANO MCBRIDE Not Available Start: 02-22-2024 End: 02-22-2024 Clinical Support Mariano Mcbride PT Work Phone: [facility] Comment on above: Arthritis of knee, r ight (Primary Dx); Acute postoperative pain of right knee; Status post right knee replacement; Difficulty walking Start: 02-21-2024 End: 02-21-2024 Admission to same day surgery center Chan Khan [facility] Start: 02-21-2024 End: 02-21-2024 ambulatory Chan Khan Facility:[facility] Start: 02-10-2024 End: 02-10-2024 Bamboo flowsheet Kylee Fernandez PT [facility] Start: 02-10-2024 End: 02-10-2024 Bamboo flowsheet Kylee Fernandez PT [facility] Start: 02-10-2024 End: 02-11-2024 ambulatory Kylee Fernandez PT [facility] Comment on above: Primary osteoarthrit is of right knee (Primary Dx) Start: 02-08-2024 End: 02-08-2024 Bamboo flowsheet Elvie Greer HOME BASED ASSISTANT Work Phone: [facility] Start: 02-08-2024 End: 02-08-2024 Bamboo flowsheet Elvie Greer HOME BASED ASSISTANT Work Phone: [facility] Start: 02-08-2024 End: 02-08-2024 Office outpatient visit 25 minutes Elvie Greer NP Work Phone: [facility] [...] Start: 02-08-2024 End: 02-08-2024 Refill Elvie Greer HOME BASED ASSISTANT Work Phone: [facility] Comment on above: Psoriasis (CMS/HCC) (Primary Dx) Start: 01-25-2024 End: 01-25-2024 Clinisync Result Encounter Chan Khan DO Work Phone: [facility] External Department Unsolicited Start: 01-25-2024 End: 01-25-2024 Clinisync Result Encounter Chan Khan DO Work Phone: [facility] External Department Unsolicited Start: 01-25-2024 End: 01-25-2024 ambulatory Chan Khan Facility:[facility] Start: 01-25-2024 End: 01-25-2024 Patient encounter procedure Chan Khan [facility] Start: 01-20-2024 End: 01-20-2024 Clinisync Result Encounter Elvie Greer HOME BASED ASSISTANT Work Phone: [facility] External Department Unsolicited Start: 01-20-2024 End: 01-20-2024 Clinisync Result Encounter Elvie Percy HOME BASED ASSISTANT Work Phone: [facility] External Department Unsolicited Start: [...] Start: 12-26-2023 End: 12-26-2023 Refill Elvie Greer HOME BASED ASSISTANT Work Phone: [facility] Comment on above: Anxiety and depressi on (CMS/HCC); Aura's thyroiditis (CMS/HCC) Start: 12-09-2023 End: 12-09-2023 Patient encounter procedure Elvie Greer Work Phone: [facility] [address] Work Phone: Start: 12-09-2023 End: 12-09-2023 ambulatory Elvie Greer Work Phone: [facility] Work Phone: Start: 11-26-2023 End: 11-26-2023 Refill Elvie Greer HOME BASED ASSISTANT Work Phone: [facility] Comment on above: Gastroesophageal ref lux disease, unspecified whether esophagitis present Start: 11-26-2023 End: 11-26-2023 ambulatory [facility] Work Phone: Start: 11-26-2023 End: 11-26-2023 Patient encounter procedure [facility] [place] Work Phone: Start: 11-09-2023 End: 11-09-2023 Clinisync Result Encounter Elvie Greer HOME BASED ASSISTANT Work Phone: [facility] External Department Unsolicited Start: 11-09-2023 End: 11-09-2023 Clinisync Result Encounter Elvie Percy HOME BASED ASSISTANT Work Phone: [facility] External Department Unsolicited Start: 11-09-2023 End: 11-09-2023 Office outpatient visit 25 minutes Elvie Greer HOME BASED ASSISTANT Work Phone: [facility] Comment on above: Aura's thyroidi tis (CMS/HCC) (Primary Dx); Morbid obesity with BMI of 50.0-59.9, adult (CMS/[facility]); Psoriasis (CMS/HCC); Anxiety and depression (CMS/HCC); Gastroesophageal reflux disease, unspecified whether esophagitis present; Moderate persistent asthma without complication (CMS/HCC); Arthritis of knee, right Start: 11-09-2023 End: 11-09-2023 ambulatory ELVIE PERCY Not Available Start: 10-21-2023 End: 10-21-2023 ambulatory CHAN KHAN Not Available Start: 10-05-2023 End: 10-05-2023 ambulatory DEEP HENRY Not Available Start: 09-30-2023 End: 09-30-2023 ambulatory ELVIE PERCY Not Available Start: 08-31-2023 End: 08-31-2023 ambulatory ELVIE PERCY Not Available Start: 07-27-2023 ambulatory Elvie Greer Facilit y:[facility] Start: 07-19-2023 End: 07-20-2023 ambulatory Jamshid Sahu MD Facility:[facility] Start: 04-22-2023 End: 04-22-2023 Office outpatient visit 10 minutes Deep Henry HOME BASED ASSISTANT Work Phone: [facility] Comment on above: Primary osteoarthrit is of right knee (Primary Dx); Right knee pain, unspecified chronicity Start: 04-14-2023 Telephone encounter Elvie darnell HOME BASED ASSISTANT Work Phone: [facility] Start: 02-26-2023 End: 02-26-2023 ambulatory Mary Jo Thibodeaux Other [employer] Other Start: 02-26-2023 Office outpatient vi sit 15 minutes Mary Jo Thibodeaux [facility] [place] Start: 05-28-2022 End: 05-29-2022 ambulatory NERVE SPECIALIST ELVIE GREER Facility:[facility] Start: 05-06-2022 End: 05-06-2022 ambulatory NERVE SPECIALIST ELVIE PERCY Facility:[facility] Start: 02-23-2022 End: 02-23-2022 ambulatory NERVE SPECIALIST ELVIE PERCY Facility:[facility] Procedures Date Procedure Procedure Detail Performing Clinician Start: 07-11-2024 ALL MAGNESIUM Elvie muse HOME BASED ASSISTANT Work Phone: Start: 07-11-2024 ALL THYROID STIM HORMONE Elvie Greer HOME BASED ASSISTANT Work Phone: Start: 06-27-2024 ALL BASIC METABOLIC PANEL Elvie Greer HOME BASED ASSISTANT Work Phone: Start: 06-27-2024 ALL MAGNESIUM Elvie muse HOME BASED ASSISTANT Work Phone: Start: 06-22-2024 Radiologic examinati on knee 3 views Chan Khan DO Work Phone: Start: 05-30-2024 Microscopic observat ion [Identifier] in Cervix by Cyto stain Elvie Greer HOME BASED ASSISTANT Work Phone: Start: 05-10-2024 ALL CBC WITH AUTO DIFF Elvie Greer HOME BASED ASSISTANT Work Phone: Start: 04-18-2024 MM TOMOSYNTHESIS SCR EENING BI Javier Morales DO Work Phone: Start: 04-18-2024 Mammography Javier roberto DO Work Phone: Start: 03-23-2024 Radiologic examinati on knee 3 views Chan Isabel Khan DO Work Phone: Start: 02-21-2024 Total knee replacement Chan Khan Start: 01-25-2024 UA WITH CULT RFLX Idris Cazares Loren DO Work Phone: Start: 01-20-2024 ALL THYROID STIM HORMONE Elvie Aichholz HOME BASED ASSISTANT Work Phone: Start: 01-20-2024 ALL THYROXINE (T4) FREE Elvie Aichholz HOME BASED ASSISTANT Work Phone: Start: 11-09-2023 ALL THYROID STIM HORMONE Elvie Aichholz HOME BASED ASSISTANT Work Phone: Start: 05-27-2023 Microscopic observat ion [Identifier] in Cervix by Cyto stain Elvie Aictito HOME BASED ASSISTANT Work Phone: Cholecystectomy Chan mahajan History of hernia repair Kaiden Khan Plan of Treatment Date Care Activity Detail Author Start: 05-30-2029 Screening for malignant neoplasm of cervix [facility] Start: 05-26-2026 Screening for malignant neoplasm of cervix [facility] Start: 06-05-2025 End: 06-05-2025 Patient encounter procedure 06/05/2025 11:00 AM EDT Office Visit [facility] [address] [place] [address] Javier Morales, DO [address] [place], [place] [id number] [facility] Start: 04-18-2025 Screening for malignant neoplasm of breast Mammogram [facility] Start: 02-22-2025 End: 02-22-2025 Patient encounter procedure 02/22/2025 1:15 PM EST Office Visit [facility] [address] [place] [phone] Chan Khan DO [address] [place] [address] [facility] Start: 10-10-2024 End: 10-10-2024 Patient encounter procedure 10/10/2024 2:00 PM EDT Office Visit [facility] [address] [place] [phone] Elvie Greer NP [address] [place] [phone] [facility] Start: 09-11-2024 End: 07-12-2025 Thyroxine (T4) free [Mass/volume] in Serum or Plasma T4, free Lab Routine Hypothyroidism, unspecified type (CMS/HCC) Expected: 09/11/2024 (Approximate), Expires: 07/12/2025 [facility] Comment on above: Expected: 09/11/2024 (Approximate), Expi res: 07/12/2025 Start: 09-04-2024 End: 07-12-2025 Thyrotropin [Units/volume] in Serum or Plasma TSH Lab Routine Hypothyroidism, unspecified type (CMS/HCC) Expected: 09/04/2024 (Approximate), Expires: 07/12/2025 [facility] Work Phone: Comment on above: Expected: 09/04/2024 (Approximate), Expi res: 07/12/2025 Start: 08-08-2024 End: 08-08-[address] [facility] Comment on above: Heart palpitations (Primary Dx); Ventricular arrhythmia; Gastroesophageal reflux disease, unspecified whether esophagitis present; Morbid (severe) obesity due to excess calories (CMS/HCC); Anxiety and depression (CMS/HCC) Start: 08-03-2024 End: 08-03-2025 C-peptide C-peptide Lab Routine Hormone disorder Expected: 08/03/2024 (Approximate), Expires: 08/03/2025 [facility] Comment on above: Expected: 08/03/2024 (Approximate), Expi res: 08/03/2025 Start: 08-03-2024 End: 08-03-2025 Cortisol free Cortisol, free Lab Routine Hormone disorder Expected: 08/03/2024 (Approximate), Expires: 08/03/2025 [facility] Comment on above: Expected: 08/03/2024 (Approximate), Expi res: 08/03/2025 Start: 08-03-2024 End: 08-03-2026 Echocardiogram 2D complete Echocardiogram 2D complete Echocardiography Routine Ventricular arrhythmia Abnormal electrocardiogram (ECG) (EKG) Expected: 08/03/2024 (Approximate), Expires: 08/03/2026 [facility] Comment on above: Expected: 08/03/2024 (Approximate), Expi res: 08/03/2026 Start: 08-03-2024 End: 08-03-2025 Glucose [Mass/volume] in Serum or Plasma Glucose, random Lab Routine Hormone disorder Expected: 08/03/2024 (Approximate), Expires: 08/03/2025 [facility] Comment on above: Expected: 08/03/2024 (Approximate), Expi res: 08/03/2025 Start: 08-03-2024 End: 08-03-2025 Insulin, total Insulin, total Lab Routine Hormone disorder Expected: 08/03/2024 (Approximate), Expires: 08/03/2025 [facility] Comment on above: Expected: 08/03/2024 (Approximate), Expi res: 08/03/2025 Start: 08-03-2024 End: 08-03-2026 NM Heart Perfusion W single state of exercise Stress test with myocardial perfusion Cardiac Nuclear Medicine Routine Ventricular arrhythmia Abnormal electrocardiogram (ECG) (EKG) Expected: 08/03/2024 (Approximate), Expires: 08/03/2026 [facility] Work Phone: Comment on above: Expected: 08/03/2024 (Approximate), Expi res: 08/03/2026 Start: 08-03-2024 End: 08-03-2025 Serotonin serum Serotonin serum Lab Routine Hormone disorder Expected: 08/03/2024 (Approximate), Expires: 08/03/2025 [facility] Comment on above: Expected: 08/03/2024 (Approximate), Expi res: 08/03/2025 Start: 08-03-2024 End: 08-03-2025 Thyroglobulin Thyroglobulin Lab Routine Hormone disorder Expected: 08/03/2024 (Approximate), Expires: 08/03/2025 [facility] Comment on above: Expected: 08/03/2024 (Approximate), Expi res: 08/03/2025 Start: 08-03-2024 End: 08-03-2025 Thyroglobulin Antibody Thyroglobulin Antibody Lab Routine Hormone disorder Expected: 08/03/2024 (Approximate), Expires: 08/03/2025 [facility] Comment on above: Expected: 08/03/2024 (Approximate), Expi res: 08/03/2025 Start: 08-03-2024 End: 08-03-2025 Thyrotropin [Units/volume] in Serum or Plasma T4 Lab Routine Hormone disorder Expected: 08/03/2024 (Approximate), Expires: 08/03/2025 [facility] Comment on above: Expected: 08/03/2024 (Approximate), Expi res: 08/03/2025 Start: 07-10-2024 End: 05-10-2025 Thyrotropin [Units/volume] in Serum or Plasma TSH Lab Routine Hypothyroidism, unspecified type (CMS/HCC) Expected: 07/10/2024 (Approximate), Expires: 05/10/2025 [facility] Work Phone: Comment on above: Expected: 07/10/2024 (Approximate), Expi res: 05/10/2025 Start: 07-10-2024 End: 05-10-2025 Thyroxine (T4) free [Mass/volume] in Serum or Plasma T4, free Lab Routine Hypothyroidism, unspecified type (CMS/HCC) Expected: 07/10/2024 (Approximate), Expires: 05/10/2025 [facility] Comment on above: Expected: 07/10/2024 (Approximate), Expi res: 05/10/2025 Start: 06-27-2024 End: 06-27-2025 Magnesium [Mass/volume] in Serum or Plasma Magnesium Lab Routine Hypomagnesemia Expected: 06/27/2024 (Approximate), Expires: 06/27/2025 [facility] Work Phone: Comment on above: Expected: 06/27/2024 (Approximate), Expi res: 06/27/2025 Start: 06-22-2024 End: 06-22-2024 Patient encounter procedure 06/22/2024 3:45 PM EDT Office Visit [facility] [address] [place] [phone] Chan Khan DO [address] [place] [address] [facility] Start: 06-20-2024 End: 06-20-2024 Patient encounter procedure 06/20/2024 2:40 PM EDT Office Visit [facility] [address] [place] [address] Elvie Greer, HOME BASED ASSISTANT [address] [place] [address] [facility] Start: 06-20-2024 End: 06-20-2025 Basic metabolic 1998 panel - Serum or Plasma Basic metabolic panel Lab Routine Heart palpitations Expected: 06/20/2024 (Approximate), Expires: 06/20/2025 [facility] Work Phone: Comment on above: Expected: 06/20/2024 (Approximate), Expi res: 06/20/2025 Start: 06-20-2024 End: 06-20-2025 Holter monitor study Holter monitor Imaging Routine Heart palpitations Expected: 06/20/2024 (Approximate), Expires: 06/20/2025 [facility] Comment on above: Expected: 06/20/2024 (Approximate), Expi res: 06/20/2025 Start: 06-20-2024 End: 06-20-2025 Magnesium [Mass/volume] in Serum or Plasma Magnesium Lab Routine Heart palpitations Expected: 06/20/2024 (Approximate), Expires: 06/20/2025 [facility] Comment on above: Expected: 06/20/2024 (Approximate), Expi res: 06/20/2025 Start: 05-30-2024 End: 05-30-2024 Patient encounter procedure 05/30/2024 10:00 AM EDT Office Visit [facility] [address] [place] [address] Javier Morales, DO [address] [facility] [place] [address] [facility] Start: 05-25-2024 End: 05-25-2024 ambulatory 05/25/2024 2:30 PM EDT Treatment [facility] [address] [place] [address] Kylee Fernandez, PT [facility] Start: 05-24-2024 End: 05-24-2024 ambulatory 05/24/2024 4:00 PM EDT Treatment [facility] [address] [place] [address] Sumeet Carter, DIRECTOR OF TAX SERVICES [facility] Start: 05-23-2024 End: 05-23-2024 ambulatory 05/23/2024 2:30 PM EDT Treatment [facility] [address] [place] [address] Kylee Fernandez, PT [facility] Start: 05-22-2024 End: 05-22-2024 ambulatory 05/22/2024 4:00 PM EDT Treatment [facility] [address] [place] [address] Sumeet Carter, DIRECTOR OF TAX SERVICES [facility] Start: 05-18-2024 End: 05-18-2024 ambulatory 05/18/2024 1:30 PM EDT Treatment [facility] [address] [place] [address] Kylee Fernandez, PT [facility] Start: 05-17-2024 End: 05-17-2024 ambulatory 05/17/2024 4:00 PM EDT Treatment [facility] [address] [place] [address] Sumeet Carter, DIRECTOR OF TAX SERVICES [facility] Start: 05-16-2024 End: 05-16-2024 ambulatory 05/16/2024 2:30 PM EDT Treatment [facility] [address] [place] [address] Kylee Fernandez, PT [facility] Start: 05-15-2024 End: 05-15-2024 ambulatory 05/15/2024 4:00 PM EDT Treatment [facility] [address] [place] [address] Sumeet Carter, DIRECTOR OF TAX SERVICES [facility] Start: 05-10-2024 End: 05-10-2024 ambulatory [facility] Start: 05-09-2024 End: 05-09-2025 CBC W Auto Differential panel - Blood CBC and differential Lab Routine Mild persistent asthma without complication (CMS/HCC) 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 Comment on above: Expected: 05/09/2024 (Approximate), Expi res: 05/09/2025 Start: 05-09-2024 End: 05-09-2025 Hemoglobin A1c/Hemoglobin.total in Blood Hemoglobin A1c Lab Routine Elevated glucose Expected: 05/09/2024 (Approximate), Expires: 05/09/2025 [facility] Comment on above: Expected: 05/09/2024 (Approximate), Expi res: 05/09/2025 Start: 05-09-2024 End: 05-09-2025 Lipid 1996 panel - Serum or Plasma Lipid panel Lab Routine Morbid (severe) obesity due to excess calories (CMS/HCC) Expected: 05/09/2024 (Approximate), Expires: 05/09/2025 [facility] Comment on above: Expected: 05/09/2024 (Approximate), Expi res: 05/09/2025 Start: 05-09-2024 End: 05-09-2025 Magnesium [Mass/volume] in Serum or Plasma Magnesium Lab Routine Hypomagnesemia Expected: 05/09/2024 (Approximate), Expires: 05/09/2025 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 Comment on above: Expected: 05/09/2024 (Approximate), Expi res: 05/09/2025 Start: 05-09-2024 End: 05-09-2024 Patient encounter procedure 05/09/2024 8:40 AM EST Office [facility] [address] [place] [address] Elvie Greer NP [address] [place] [address] [facility] Start: 05-08-2024 End: 05-08-2024 [...] EST Treatment [facility] [address] [facility] [address] [place] [address] Kylee Fernandez, PT Acute postoperative pain of [...] Treatment [facility] [address] [facility] [address] [place] [address] Sumeet Carter, DIRECTOR OF TAX SERVICES [facility] Start: 04-19-2024 End: 04-19-2024 ambulatory [facility] Start: 04-17-2024 End: 04-17-2024 ambulatory [facility] Start: 04-14-2024 End: 04-14-2024 ambulatory 04/14/2024 2:00 PM EST Treatment [facility] [address] [facility] [address] [place] [address] Baldomero Stephenson, DIRECTOR OF TAX SERVICES [facility] Start: 04-12-2024 End: 04-12-2024 ambulatory [facility] Comment on above: Arrived Start: 04-10-2024 End: 04-10-2024 ambulatory 04/10/2024 5:00 PM EST Treatment [facility] [address] [place] [address] Kylee Fernandez, PT [facility] Start: 04-05-2024 End: 04-05-2024 ambulatory 04/05/2024 5:00 PM EST Treatment [facility] [address] [facility] [address] [place] [address] Sumeet Carter, DIRECTOR OF TAX SERVICES [facility] Start: 04-03-2024 End: 04-03-2024 [...] NB ORTHO [address] [place] [address] Chan Khan DO [address] [facility] [place] [address] [facility] Start: 03-21-2024 End: 03-21-2024 ambulatory [facility] Comment on above: Arthritis of knee, right (Primary Dx) Start: 03-15-2024 End: 03-15-2024 ambulatory 03/15/2024 5:00 PM EST Treatment [facility] [address] [facility] [address] [place] [address] Kylee Fernandez, PT [facility] Start: 02-10-2024 End: 02-10-2024 ambulatory [facility] Comment on above: Primary osteoarthritis of right knee Start: 02-08-2024 End: 02-08-2024 Patient encounter procedure [facility] Comment on above: Mild persistent asthma without complicat ion ([facility]/HCC) (Primary Dx); Gastroesophageal reflux disease, unspecified whether [...] Routine Pre-op testing Expected: 01/25/2024, Expires: 01/12/2025 [facility] Work Phone: Comment on above: Expected: 01/25/2024, Expires: Start: 01-13-2024 End: 01-13-2024 Patient encounter procedure 01/13/2024 3:15 PM EST Office Visit [facility] [address] [place] [address] Chan Khan DO [address] [place] [address] Arrived [facility] Comment on above: Arrived Start: 01-06-2024 Influenza vaccination Influenza Vaccine (#1) [facility] Comment on above: Postponed from 11/07/2023 (Patient Refus ed) Start: 2023 Screening for malignant neoplasm of breast Mammogram [facility] Start: 11-09-2023 End: 11-09-2023 Patient encounter procedure 11/09/2023 2:00 PM EDT Office Visit [facility] [address] [place] [address] Elvie Greer NP [address] [place] [address] [facility] Start: 11-09-2023 End: 11-08-2024 Thyrotropin [Units/volume] in Serum or Plasma TSH Lab Routine Aura's thyroiditis (CMS/HCC) Expected: 11/09/2023 (Approximate), Expires: 11/08/2024 [facility] Work Phone: Comment on above: Expected: 11/09/2023 (Approximate), Expi res: 11/08/2024 Start: 11-09-2023 End: 11-08-2024 Thyroxine (T4) free [Mass/volume] in Serum or Plasma T4, free Lab Routine Aura's thyroiditis (CMS/HCC) Expected: 11/09/2023 (Approximate), Expires: 11/08/2024 [facility] Comment on above: Expected: 11/09/2023 (Approximate), Expi res: 11/08/2024 Start: 05-27-2023 End: 05-27-2023 Patient encounter procedure 05/27/2023 10:00 AM EDT Office Visit [facility] [address] [place] [address] Javier Morales DO [address] [facility] [place] [address] [facility] Start: 05-18-2023 End: 05-18-2023 Patient encounter procedure 05/18/2023 9:20 AM EDT Office Visit [facility] [address] [place] [address] Elvie Greer NP [address] [place] [address] [facility] Start: 04-22-2023 End: 04-22-2023 Patient encounter procedure 04/22/2023 10:15 AM EST Office Visit [facility] [address], [place] [address] Deep Henry, JONN [address], [place] [id number] [facility] Start: 11-18-2013 Screening for malignant neoplasm of cervix [facility] Start: 11-18-2004 Screening for malignant neoplasm of cervix Pap Smear [facility] DHEA-sulfate DHEA-sulfate Lab Routine Hormone disorder Ordered: 08/03/2024 [facility] Comment on above: Ordered: 08/03/2024 Estradiol Estradiol Lab Ro utine Hormone disorder Ordered: 08/03/2024 [facility] Work Phone: Comment on above: Ordered: 08/03/2024 Estrone Estrone Lab Rout ine Hormone disorder Ordered: 08/03/2024 [facility] Comment on above: Ordered: 08/03/2024 Ferritin [Mass/volum e] in Serum or Plasma Ferritin Lab Routine Hormone disorder Ordered: 08/03/2024 [facility] Comment on above: Ordered: 08/03/2024 Hemoglobin A1c/Hemoglobin.total in Blood Hemoglobin A1c Lab Routine Hormone disorder Ordered: 08/03/2024 [facility] Comment on above: Ordered: 08/03/2024 Progesterone Progesterone Lab Routine Hormone disorder Ordered: 08/03/2024 [facility] Comment on above: Ordered: 08/03/2024 Sex hormone binding globulin Sex hormone binding globulin Lab Routine Hormone disorder Ordered: 08/03/2024 [facility] Comment on above: Ordered: 08/03/2024 T3, reverse T3, reverse Lab Routine Hormone disorder Ordered: 08/03/2024 [facility] Comment on above: Ordered: 08/03/2024 TESTOSTERONE, FREE TESTOSTERONE, FREE Lab Routine Hormone disorder Ordered: 08/03/2024 [facility] Comment on above: Ordered: 08/03/2024 Testosterone, free, total Testosterone, free, total Lab Routine Hormone disorder Ordered: 08/03/2024 [facility] Comment on above: Ordered: 08/03/2024 THIN PREP TIS PAP AN D HR HPV DNA THIN PREP TIS PAP AND HR HPV DNA Pathology and Cytology Routine Well woman exam with routine gynecological exam Ordered: 05/30/2024 [facility] Work Phone: Comment on above: Ordered: 05/30/2024 Thyroid peroxidase antibody Thyroid peroxidase antibody Lab Routine Hormone disorder Ordered: 08/03/2024 [facility] Comment on above: Ordered: 08/03/2024 Triiodothyronine (T3 ) Free [Mass/volume] in Serum or Plasma T3, free Lab Routine Hormone disorder Ordered: 08/03/2024 [facility] Comment on above: Ordered: 08/03/2024 Vitamin D 1,25 dihydroxy Vitamin D 1,25 dihydroxy Lab Routine Hormone disorder Ordered: 08/03/2024 [facility] Comment on above: Ordered: 08/03/2024 Immunizations Immunization Date Immunization Notes Care Provider Anthony [facility] 12-22-2023 influenza, seasonal, injectable, preservative free Elvie Greer HOME BASED ASSISTANT Work Phone: [facility] 10-29-2022 influenza, injectabl e, quadrivalent, preservative free Elviecruzito Riosholz HOME BASED ASSISTANT Work Phone: [facility] 10-29-2022 influenza virus vacc ine, unspecified formulation Elviecruzito Riostrevonz HOME BASED ASSISTANT Work Phone: [facility] Payers Date Payer Category Payer Self-pay 2023 Private Health Insurance [id number] 2023 Unknown [id number] 1983 Unknown [id number] 2.16.84 0.1.437855.3.579.2.593 1983 Unknown [id number] 2.16.84 0.1.189932.3.579.2.593 1983 Unknown [id number] 2.16.84 0.1.869648.3.579.2.593 1983 Unknown [id number] 2.16. 840.1.779156.3.579.2.196 1983 Unknown [id number] 2.16.8 40.1.436024.3.579.2.727 1983 Unknown [id number] 2.16.8 40.1.993731.3.579.2.727 1983 Unknown [id number] 2.16.8 40.1.618148.3.579.2.727 1983 Unknown [id number] 2.16.8 40.1.437091.3.579.2.1259 1983 Unknown [id number] 2.16.84 0.1.976202.3.579.2.1258 1983 Unknown [id number] 2.16.84 0.1.928691.3.579.2.1258 1983 Unknown [id number] 2.16.84 0.1.164531.3.579.2.1258 1983 Unknown [id number] 2.16.84 0.1.676949.3.579.2.1258 1983 Unknown [id number] 2.16.84 0.1.320760.3.579.2.1258 1983 Unknown [id number] 2.16.84 0.1.498789.3.579.2.1258 1983 Unknown [id number] 2.16.84 0.1.994278.3.579.2.1258 1983 Unknown [id number] 2.16.84 0.1.220394.3.579.2.1258 1983 Unknown [id number] 2.16.84 0.1.344782.3.579.2.1258 1983 Unknown [id number] 2.16.84 0.1.863390.3.579.2.1258 1983 Unknown [id number] 2.16.84 0.1.745637.3.579.2.1258 1983 Unknown [id number] 2.16.84 0.1.535415.3.579.2.1258 1983 Unknown [id number] 2.16.84 0.1.426189.3.579.2.1258 1983 Unknown [id number] 2.16.84 0.1.548120.3.579.2.1258 1983 Unknown [id number] 2.16.84 0.1.176970.3.579.2.1258 1983 Unknown [id number] 2.16.84 0.1.186308.3.579.2.1258 1983 Unknown [id number] 2.16.84 0.1.842327.3.579.2.1258 1983 Unknown [id number] 2.16.84 0.1.380404.3.579.2.1258 1983 Unknown [id number] 2.16.84 0.1.323834.3.579.2.1258 1983 Unknown [id number] 2.16.84 0.1.736647.3.579.2.1258 1983 Unknown [id number] 2.16.84 0.1.698107.3.579.2.1258 1983 Unknown [id number] 2.16.84 0.1.535032.3.579.2.1258 1983 Unknown [id number] 2.16.84 0.1.891229.3.579.2.1258 1983 Unknown [id number] 2.16.84 0.1.335485.3.579.2.1258 1983 Unknown [id number] 2.16.84 0.1.570947.3.579.2.1258 1983 Unknown [id number] 2.16.84 0.1.746009.3.579.2.1258 1983 Unknown [id number] 2.16.84 0.1.356204.3.579.2.1258 1983 Unknown [id number] 2.16.84 0.1.552532.3.579.2.1258 1983 Unknown [id number] 2.16.84 0.1.835493.3.579.2.1258 1983 Unknown [id number] 2.16.84 0.1.984585.3.579.2.1258 1983 Unknown [id number] 2.16.84 0.1.034174.3.579.2.1258 1983 Unknown [id number] 2.16.84 0.1.339534.3.579.2.1258 1983 Unknown [id number] 2.16.84 0.1.588588.3.579.2.9 1983 Unknown [id number] 2.16.84 0.1.293569.3.579.2.1258 1983 Unknown [id number] 2.16.84 0.1.922624.3.579.2.1258 1983 Unknown [id number] 2.16.84 0.1.526953.3.579.2.1258 1983 Unknown [id number] 2.16.84 0.1.835231.3.579.2.1258 1983 Unknown [id number] 2.16.84 0.1.546188.3.579.2.1259 1959 Unknown [id number] Unknown [id number] 2.16.8 40.1.562141.3.579.2.531 Social History Date Type Detail Facility Start: 04-06-2023 End: 08-31-2023 Sex Assigned At [facility] Start: 04-01-2023 End: 11-26-2023 Tobacco smoking status [facility] Never smoked tobacco [facility] Work Phone: Start: 04-01-2023 Tobacco use and exposure Smokeless tobacco non-user [facility] Start: 04-13-2023 End: 08-08-2024 Alcohol intake Lifetime non-drinker (finding) [facility] Start: 04-06-2023 End: 08-31-2023 History of Social function [facility] Within the last year , have you been afraid of your partner or ex-partner? No [facility] Do you belong to any clubs or organizations such as voodoo groups, unions, fraternal or athletic groups, or [...] Gender identity Identifies as female gender (finding) [facility] Start: 1985 Sex Assigned At Female [facility] Tobacco smoking status No Smokin g Status Entered [facility] Medical Equipment Procedure Code Equipment Code Equipment Origin al Text Equipment Identifier Dates KNEE TOTAL ARTHROPLASTY Khan DO, Chan Cazares 02/21/24 Unknown Knee R FDA Start: 02-21-2024 KNEE TOTAL ARTHROPLASTY Khan DO, Chan T 02/21/24 Unknown Knee R FDA Start: 02-21-2024 KNEE TOTAL ARTHROPLASTY Khan DO, Chan T 02/21/24 Unknown Knee R FDA Start: 02-21-2024 KNEE TOTAL ARTHROPLASTY Khan DO, Chan T 02/21/24 Unknown Knee R FDA Start: 02-21-2024 KNEE TOTAL ARTHROPLASTY Khan DO, Chan T 02/21/24 Unknown Knee R FDA Start: 02-21-2024 Functional Status Date Assessment Result Facility 01-25-2024 Functional Status No [facility] Clinical Notes 02-26-2023 to 08-08-2024 Elvie Greer NP - 08/08/2024 2:59 PM EDSILVER KAY - 08/08/2024 2:20 PM Scarlett Greer NP - 08/08/2024 2:20 PM Scarlett Greer NP - 08/08/2024 6:59 AM EDTPatient Instructions Note Date & Type Note Facility 08-08-2024 History of Present illness Narrative Associated Problem(s): Environmental and seasonal allergies Sxs not controlled w antihistamines and nasal steroids Used to take allergy injections in the past Will refer to informatica mdm developer for evaluation ENT referral for allergies [facility] is not helping Images from the original note were not included. Wilmer Navarro is a 38 y.o. female presents with chief complaint of Hypertension HPI: Heart palp: fast heart beat, feels like gonna come out of neck, dizziness at times (usually if sitting still, not w moving) +dyspnea, +diaphoretic but easily has this happen. +does get some chest pain. Can get some elevated blood pressures at times, SBP 140's, DBP 90ish Had holter placed, reviewed with pt has some PVC's and runs of V tach Also scheduled a holter and stress test and cardiology consult: this is also being scheduled Seasonal allergies: used to get allergy injections weekly maybe. Has worsening in sxs: has taken ceterizine, loratadine, heide, and nasal sprays Also takes singulair: sneezing , itchy watery eyes, runny nose. Not sure what has allergies too SUBJECTIVE: MEDICATIONS: Current Outpatient Medications Medication Instructions albuterol HFA 90 mcg/act inhaler 2 puffs, Inhalation, Every 6 hours PRN budesonide-formoterol (Symbicort) 160-4.5 MCG/ACT inhaler 2 puffs, Inhalation, 2 times daily, Rinse mouth with water after use to reduce aftertaste and incidence of candidiasis. Do not swallow. buPROPion XL (WELLBUTRIN XL) 300 mg, Oral, Every morning celecoxib (CELEBREX) 200 mg, Daily estradiol (Climara) 0.05 MG/24HR 1 patch, Transdermal, Weekly famotidine (PEPCID) 20 mg, Oral, Nightly hydrOXYzine pamoate (VISTARIL) 25 mg, Oral, Every 8 hours PRN levothyroxine (SYNTHROID, LEVOXYL) 100 mcg, Oral, Daily before breakfast montelukast (SINGULAIR) 10 mg, Oral, Nightly pantoprazole (PROTONIX) 40 mg, Oral, Daily before breakfast, Do not crush, chew, or split. Potassium 99 MG tablet Every 24 hours progesterone (PROMETRIUM) 100 mg, Oral, Daily ALLERGIES: Allergies Allergen Reactions Antihistamines, Diphenhydramine-Type Prednisone Diphenhydramine Hives, Itching, Rash and Unknown Latex Hives, Itching, Rash and Unknown REVIEW OF SYMPTOMS: Review of Systems Constitutional: Negative for appetite change, chills and fever. HENT: Positive for rhinorrhea. Negative for congestion, ear pain and sore throat. Eyes: Positive for itching. Negative for pain, discharge, redness and visual disturbance. Respiratory: Negative for cough, shortness of breath and wheezing. Cardiovascular: Positive for chest pain and palpitations. Negative for leg swelling. Gastrointestinal: Negative for abdominal pain, blood in stool, constipation, diarrhea, nausea and vomiting. Genitourinary: Negative for difficulty urinating, dysuria and frequency. Musculoskeletal: Negative for arthralgias, back pain, joint [...] MEDICAL HISTORY Past Medical History: Diagnosis Date Anxiety Arthritis Asthma Borderline abnormal thyroid function test COVID-19 virus detected Depression ([facility]) 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[facility]) Morbid obesity with BMI of 50.0-59.9, adult ([facility]) 04/13/2023 Umbilical hernia Past Surgical History: Procedure Laterality Date GALLBLADDER SURGERY Laparoscopic HERNIA REPAIR Umbilical KNEE ARTHROPLASTY Right 02/21/2024 MTP MENISCECTOMY Right 02/28/2020 Dr Garcia OTHER SURGICAL HISTORY 2009 Procedure:NUBAIN & PHENERGAN;Disease:ACUTE CHOLEYCYSTITIS TONSILLECTOMY 05/11/2007 and Adenoidectomy family history includes ADD / ADHD in her brother; Asthma in her father, mother, and sister; Cancer in an other family member; Diabetes in her mother; Lymphoma in an other family member; Osteoarthritis in her mother. OBJECTIVE: Visit Vitals BP 118/88 (BP Location: Left arm, Patient Position: Sitting, BP Cuff Size: Large adult) Pulse 88 Temp 97.8 F (Temporal) Resp 20 Wt 294 lb LMP 08/02/2024 SpO2 98% BMI 47.45 kg/m Smoking Status Never BSA 2.49 m Physical Exam Vitals and nursing note reviewed. Constitutional: General: She is not in acute distress. Appearance: Normal appearance. She is obese. She is not ill-appearing. HENT: Head: Normocephalic and atraumatic. Right Ear: Tympanic membrane, ear canal and external ear normal. Left Ear: Tympanic membrane, ear canal and external ear normal. Nose: Rhinorrhea present. No congestion. Comments: pallor Mouth/Throat: Mouth: Mucous membranes are moist. Pharynx: No oropharyngeal exudate or posterior oropharyngeal erythema. Eyes: Extraocular Movements: Extraocular movements intact. Conjunctiva/sclera: Conjunctivae normal. Neck: Vascular: No carotid bruit. Cardiovascular: Rate and Rhythm: Normal rate and regular rhythm. Pulses: Normal pulses. Heart sounds: Normal heart sounds. No murmur heard. Pulmonary: Effort: Pulmonary effort is normal. Breath sounds: Normal breath sounds. No wheezing or rhonchi. Musculoskeletal: General: Normal range of motion. Cervical [...] normal. Judgment: Judgment normal. ASSESSMENT AND PLAN: Follow up in about 2 months (around 10/08/2024) for Recheck. Problem List Items Addressed This Visit Anxiety and depression (CMS/HCC) Current meds: wellbutrin and uses prn vistaril GERD (gastroesophageal reflux disease) Continue with PPI Recommendations: freq small meals, nothing to eat or drink at least 2 hours prior to bed, limit caffeine, alcohol, as well as spicy foods Meds to limit or avoid if possible: NSAIDS Elevate HOB if possible Current med: pantoprazole, famotidine Morbid (severe) obesity due to excess calories (CMS/HCC) Discussed with patient their BMI (actual, verses recommended). We have also discussed lifestyle modifications: attempts to perform physical activity as chronic conditions allow, also to monitor dietary intake: increasing protein/fruits/veggies and lowering carb intake (unless contraindicated). Limit sodas, juices, and sugary drinks. Was at 326 in 10/29 Heart palpitations - Primary Reviewed holter Will check stress test and ECHO and refer to cardiology Ventricular arrhythmia Noted on holter Check stress test and ECHO Send to cardiology Environmental and seasonal allergies Sxs not controlled w antihistamines and nasal steroids Used to take allergy injections in the past Will refer to informatica mdm developer for evaluation Relevant Orders Ambulatory referral to Allergy Associated Problem(s): Anxiety and depression (CMS/HCC) Current meds: wellbutrin and uses prn vistaril Associated Problem(s): Morbid (severe) obesity due to excess calories (CMS/HCC) Discussed with patient their BMI (actual, verses recommended). We have also discussed lifestyle modifications: attempts to perform physical activity as chronic conditions allow, also to monitor dietary intake: increasing protein/fruits/veggies and lowering carb intake (unless contraindicated). Limit sodas, juices, and sugary drinks. Was at 326 in 10/29 Associated Problem(s): GERD (gastroesophageal reflux disease) Continue with PPI Recommendations: freq small meals, nothing to eat or drink at least 2 hours prior to bed, limit caffeine, alcohol, as well as spicy foods Meds to limit or avoid if possible: NSAIDS Elevate HOB if possible Current med: pantoprazole, famotidine Associated Problem(s): Ventricular arrhythmia Noted on holter Check stress test and ECHO Send to cardiology Associated Problem(s): Heart palpitations Reviewed holter Will check stress test and ECHO and refer to cardiology documented in this encounter [facility] 08-08-2024 Instructions Elvie Greer NP - 08/08/2024 2:20 PM EDT I will place referral to informatica mdm developer: dr Arnaud Almonte with [facility] in [facility], their office should call if no call in 10 days call me documented in this encounter [facility] 08-03-2024 History of Present illness Narrative Reason for Appointment: Patient ID: Wilmer Navarro is a 38 y.o. female who presents for hormones Patient presents today for Consult appointment. MEDICATIONS Current Outpatient Medications Medication Instructions albuterol HFA 90 mcg/act inhaler 2 puffs, Inhalation, Every 6 hours PRN budesonide-formoterol (Symbicort) 160-4.5 MCG/ACT inhaler 2 puffs, Inhalation, 2 times daily, Rinse mouth with water after use to reduce aftertaste and incidence of candidiasis. Do not swallow. buPROPion XL (WELLBUTRIN XL) 300 mg, Oral, Every morning famotidine (PEPCID) 20 mg, Oral, Nightly hydrOXYzine pamoate (VISTARIL) 25 mg, Oral, Every 8 hours PRN levothyroxine (SYNTHROID, LEVOXYL) 100 mcg, Oral, Daily before breakfast magnesium oxide (MAG-OX) 400 mg, Oral, 2 times daily montelukast (SINGULAIR) 10 mg, Oral, Nightly pantoprazole (PROTONIX) 40 mg, Oral, Daily before breakfast, Do not crush, chew, or split. Potassium 99 MG tablet Every 24 hours triamcinolone (Nasacort) 55 MCG/ACT nasal inhaler 2 sprays, Each Nostril, Daily ALLERGIES Allergies Allergen Reactions Antihistamines, Diphenhydramine-Type Prednisone Diphenhydramine Hives, Itching, Rash and Unknown Latex Hives, Itching, Rash and Unknown PROBLEMS Active Ambulatory Problems Diagnosis Date Noted Arthritis of knee, right 04/01/2023 Anxiety and depression (CMS/HCC) 04/01/2023 Elevated glucose 04/01/2023 GERD (gastroesophageal reflux disease) 04/01/2023 Hair loss 04/01/2023 Hypomagnesemia 04/01/2023 Leg cramps 04/01/2023 Liver function abnormality 04/01/2023 Painful lumpy right breast 04/01/2023 Psoriasis 04/01/2023 Acute postoperative pain of right knee 04/01/2023 Body mass index (BMI) 45.0-49.9, adult ([facility]) 04/13/2023 Ventral hernia without obstruction or gangrene 08/31/2023 Mild persistent asthma without complication ([facility]) 02/08/2024 Morbid (severe) obesity due to excess calories ([facility]) 02/08/2024 Encounter for screening mammogram for malignant neoplasm of breast 02/08/2024 Status post right knee replacement 02/22/2024 Difficulty walking 02/22/2024 Hypothyroid ([facility]) 05/09/2024 Other constipation 05/09/2024 Heart palpitations 06/20/2024 Resolved Ambulatory Problems Diagnosis Date Noted Internal derangement of right knee 04/01/2023 History of knee problem 03/27/2020 Borderline abnormal thyroid function test 04/01/2023 Intermittent asthma without complication (CMS/HCC) 04/01/2023 Moderate persistent asthma without complication ([facility]) 04/01/2023 Umbilical hernia 04/01/2023 Acute medial meniscal tear 04/01/2023 Abnormal TSH 05/18/2023 Non-recurrent acute suppurative otitis media of left ear without spontaneous rupture of tympanic membrane 05/18/2023 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 Cellulitis 08/31/2023 Past Medical History: Diagnosis Date Anxiety Arthritis Asthma COVID-19 virus detected Depression (CMS/HCC) 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[facility]) Morbid obesity with BMI of 50.0-59.9, adult ([facility]) 04/13/2023 HISTORY PAST MEDICAL HISTORY SOCIAL HISTORY Past Medical History: Diagnosis Date Anxiety Arthritis Asthma Borderline abnormal thyroid function test COVID-19 virus detected Depression (CMS/HCC) 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[facility]) Morbid obesity with BMI of 50.0-59.9, adult ([facility]) 04/13/2023 Umbilical hernia Social History Tobacco Use Smoking status: Never Smokeless tobacco: Never Vaping Use Vaping status: Never Used Substance Use Topics Alcohol use: Never Drug use: Never FAMILY HISTORY Family History Problem Relation Name Age of Onset Asthma Mother Susy britt Diabetes Mother Susy britt Osteoarthritis Mother Susy britt Asthma Father Zeferino Britt Asthma Sister Ana Mckeon ADD / ADHD Brother Cancer Other grandmother grandfather Bone cancer Lymphoma Other grandmother SURGICAL HISTORY Past Surgical History: Procedure Laterality Date GALLBLADDER SURGERY Laparoscopic HERNIA REPAIR Umbilical KNEE ARTHROPLASTY Right 02/21/2024 MTP MENISCECTOMY Right 02/28/2020 Dr Garcia OTHER SURGICAL HISTORY 2009 Procedure:NUBAIN & PHENERGAN;Disease:ACUTE CHOLEYCYSTITIS TONSILLECTOMY 05/11/2007 and Adenoidectomy REVIEW OF SYSTEMS Review of Systems: Review of Systems Constitutional: Negative. HENT: Negative. Eyes: Negative. Respiratory: Negative. Cardiovascular: Negative. Gastrointestinal: Negative. Genitourinary: Negative. Musculoskeletal: Negative. Skin: Negative. Neurological: Negative. All other systems reviewed and are negative. Hematological: Negative. Endocrine: Negative. Allergic/Immunologic: Negative. OBJECTIVE Objective: Physical Exam Constitutional: Appearance: Normal appearance. She is well-developed. Cardiovascular: Rate and Rhythm: Normal rate and regular rhythm. Pulmonary: Effort: Pulmonary effort is normal. Breath sounds: Normal breath sounds. Abdominal: General: Bowel sounds are normal. There is no distension. Palpations: Abdomen is soft. Tenderness: There is no abdominal tenderness. There is no guarding or rebound. Musculoskeletal: General: No swelling. Normal range of motion. Right lower leg: No edema. Left lower leg: No edema. Neurological: Mental Status: She is alert and oriented to person, place, and time. Skin: General: Skin is warm and dry. Psychiatric: Mood and Affect: Mood normal. Behavior: Behavior normal. Vitals and nursing note reviewed. Exam conducted with a auto transport driver present. Vitals: Estimated body mass index is 47.63 kg/m as calculated from the following: Height as of 06/22/24: 5' 6 . Weight as of this encounter: 295 lb 1.9 oz. BP: 138/88 Patient's last menstrual period was 08/02/2024. ASSESSMENT & PLAN ICD-10-CM 1. Hormone disorder E34.9 Estradiol Estrone Cortisol, free DHEA-sulfate Sex hormone binding globulin Insulin, total Serotonin serum T3, reverse Progesterone Vitamin D 1,25 dihydroxy Ferritin T3, free Thyroglobulin Thyroglobulin Antibody Thyroid peroxidase antibody T4 TESTOSTERONE, FREE Testosterone, free, total Hemoglobin A1c Glucose, random C-peptide Cortisol, free Insulin, total Serotonin serum Thyroglobulin Thyroglobulin Antibody T4 Glucose, random C-peptide Patient presents today to discuss hormones. Patient stated that she is having a decrease in sex drive, trouble sleeping and hot flashes. Patient denies any vaginal dryness. Patient had previously been sent to [facility] for treatment of symptoms, but medication did not help symptoms. Patient given orders to have labs drawn again if needed, but provider with reach out to [facility] and see if all labs are needed or just certain labs based on patient previous complaints. Did discuss medication with patient but she is currently taking Wellbutrin and Vistaril through PCP. Patient is aware that provider will reach out to discuss plan of care once symptoms are reviewed with [employer] Patient to return to clinic for routine annual appointment and as needed. Documented by Fadia Santiago LPN on behalf of: Isa Machado PA-C documented in this encounter [facility] 06-22-2024 History of Present illness Narrative Post op right TKA annual visit: The patient is seen and evaluated for annual total knee arthroplasty visit. Did well with [...] are reviewed. Physical Exam: The total knee hip is clean, dry and intact. Mild swelling as expected. Has a stable arc of motion without mechanical symptoms. No instability of the prosthesis. No rash, infection or DVT. The calf is supple. Gait is assisted with stiffness with mild antalgic component. Image Results: Xrays taken in the office today saved to the permanent record, AP, sunrise and lateral weightbearing films, show stable position and alignment of the right TKA prosthesis. No sign of loosening, fracture or infection. Assessment: S/P right total knee arthroplasty-annual post-operative visit Treatment Plan: The nature of the findings were discussed at length. Continuance of regular exercise, weight management and fall precautions reviewed. correction antibiotic prophylaxis for dental or invasive work were reviewed. Numerous questions were answered. Follow-up in February at year anniversary, for repeat xray and exam, sooner if concerned. The patient is discharged in stable condition. documented in this encounter [facility] 06-20-2024 History of Present illness Narrative Associated Problem(s): Hypomagnesemia Check magnesium Associated Problem(s): Heart palpitations Check labs: basic and mg Holter [address] khan on . Pt states that since sat/sun she felt quickening of her heart and felt like her heart was going to jump out of her chest Having SOB, can not fill lungs completely, she has had rate at home of 120 Pt would like to ask about cold hands/feet-numbness and tingling in toes and fingers mainly tingling Dr morales has approved her doing all natural hormone oils kit at home Pt is to monitor and see if she notices a difference. Pt has been doing it since 05/13/24 Images from the original note were not included. Wilmer Navarro is a 38 y.o. female presents with chief complaint of No chief complaint on file. HPI: Pt states that since sat/sun she felt quickening of her heart and felt like her heart was going to jump out of her chest Having SOB, can not fill lungs completely, she has had rate at home of 120 Pt would like to ask about cold hands/feet-numbness and tingling in toes and fingers mainly tingling Dr morales has approved her doing all natural hormone oils kit at home Pt is to monitor and see if she notices a difference. Pt has been doing it since 05/13/24 Palpitations This is a new problem. The current episode started 1 to 4 weeks ago. The problem occurs constantly. The problem has been waxing and waning. Nothing aggravates the symptoms. Associated symptoms include anxiety, dizziness (occ) and shortness of breath. Pertinent negatives include no chest pain, coughing, fever, irregular heartbeat, malaise/fatigue, nausea, numbness or vomiting. She has tried nothing for the symptoms. Risk factors include obesity. Her past medical history is significant for anxiety. There is no history of heart disease or hyperthyroidism. GERD She reports no abdominal pain, no chest pain, no coughing, no nausea, no sore throat, no tooth decay or no wheezing. This is a chronic problem. The current episode started more than 1 year ago. The problem occurs occasionally. The problem has been unchanged. Risk factors include obesity. She has tried a PPI and a histamine-2 antagonist for the symptoms. The treatment provided significant relief. SUBJECTIVE: MEDICATIONS: Current Outpatient Medications Medication Instructions albuterol HFA 90 mcg/act inhaler 2 puffs, Inhalation, Every 6 hours PRN budesonide-formoterol (Symbicort) 160-4.5 MCG/ACT inhaler 2 puffs, Inhalation, 2 times daily, Rinse mouth with water after use to reduce aftertaste and incidence of candidiasis. Do not swallow. buPROPion XL (WELLBUTRIN XL) 300 mg, Oral, Every morning famotidine (PEPCID) 20 mg, Oral, Nightly hydrOXYzine pamoate (VISTARIL) 25 mg, Oral, Every 8 hours PRN levothyroxine (SYNTHROID) 88 mcg, Oral, Daily before breakfast magnesium oxide (MAG-OX) 400 mg montelukast (SINGULAIR) 10 mg, Oral, Nightly pantoprazole [...] Systems Constitutional: Negative for appetite change, chills, fever and malaise/fatigue. HENT: Negative for congestion, ear pain and sore throat. Eyes: Negative for pain, discharge, redness and visual disturbance. Respiratory: Positive for shortness of breath. Negative for cough and wheezing. Cardiovascular: Positive for palpitations. Negative for chest pain and leg swelling. Gastrointestinal: Negative for abdominal pain, blood in stool, constipation, diarrhea, nausea and vomiting. Genitourinary: Negative for difficulty urinating, dysuria and frequency. Musculoskeletal: Negative for arthralgias, back pain, joint swelling and myalgias. Skin: Negative for rash and wound. Neurological: Positive for dizziness (occ). Negative for tremors, seizures, syncope, numbness and headaches. Psychiatric/Behavioral: Negative for behavioral problems, self-injury and suicidal ideas. The patient is nervous/anxious. Hematological: Does not bruise/bleed easily. Endocrine: Negative for polydipsia, polyphagia and polyuria. Allergic/Immunologic: Negative for environmental allergies and food allergies. 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 OBJECTIVE: Visit Vitals BP 132/88 (BP Location: Left arm, Patient Position: Sitting, BP Cuff Size: Large adult) Pulse 92 Temp 98.5 F (Temporal) Resp 20 Wt 303 lb 3.2 oz LMP 05/24/2024 (Exact Date) SpO2 99% BMI 48.94 kg/m Smoking Status Never BSA 2.53 m Physical Exam Vitals and nursing note [...] Normal pulses. Heart sounds: Normal heart sounds. No murmur heard. Comments: Occ ectopic beat noted Pulmonary: Effort: Pulmonary effort is normal. Breath sounds: Normal breath sounds. Abdominal: General: Bowel sounds are normal. There is no distension. Palpations: Abdomen is soft. There is no mass. Tenderness: There is no abdominal tenderness. Musculoskeletal: Cervical back: Normal range of motion and neck supple. Right lower leg: Edema present. Left lower leg: Edema present. Comments: Generalized lower legs, no acute changes from baseline Calf muscle soft and non tender Lymphadenopathy: Cervical: No cervical adenopathy. Skin: General: Skin is warm and dry. Capillary Refill: Capillary refill takes 2 to 3 seconds. Findings: No rash. Neurological: General: No focal deficit present. Mental Status: She is alert and oriented to person, place, and time. Psychiatric: Mood and Affect: Mood normal. Behavior: Behavior normal. Thought Content: Thought content normal. Judgment: Judgment normal. ASSESSMENT AND PLAN: Follow up in about 4 weeks (around 07/18/2024) for Recheck. Problem List Items Addressed This Visit GERD (gastroesophageal reflux disease) Continue with PPI Recommendations: freq small meals, nothing to eat or drink at least 2 hours prior to bed, limit caffeine, alcohol, as well as spicy foods Meds to limit or avoid if possible: NSAIDS Elevate HOB if possible Current med: pantoprazole, famotidine Hypomagnesemia Check magnesium Morbid (severe) obesity due to excess calories (CMS/HCC) Discussed with patient their BMI (actual, verses recommended). We have also discussed lifestyle modifications: attempts to perform physical activity as chronic conditions allow, also to monitor dietary intake: increasing protein/fruits/veggies and lowering carb intake (unless contraindicated). Limit sodas, juices, and sugary drinks. Was at 326 in 8/24 Heart palpitations - Primary Check labs: basic and mg Holter 7 days Relevant Orders Basic metabolic panel Magnesium Holter monitor Associated Problem(s): Morbid (severe) obesity due to excess calories (CMS/HCC) Discussed with patient their BMI (actual, verses recommended). We have also discussed lifestyle modifications: attempts to perform physical activity as chronic conditions allow, also to monitor dietary intake: increasing protein/fruits/veggies and lowering carb intake (unless contraindicated). Limit sodas, juices, and sugary drinks. Was at 326 in 10/29 Associated Problem(s): Other constipation At last appt, we recommended: Water 64 oz daily, miralax, high fiber foods, and stool softener Associated Problem(s): GERD (gastroesophageal reflux disease) Continue with PPI Recommendations: freq small meals, nothing to eat or drink at least 2 hours prior to bed, limit caffeine, alcohol, as well as spicy foods Meds to limit or avoid if possible: NSAIDS Elevate HOB if possible Current med: pantoprazole, famotidine documented in this encounter [facility] 06-20-2024 Instructions Elvie Greer NP - 06/20/2024 2:40 PM EDT Check labs and holter documented in this encounter [facility] 05-30-2024 History of Present illness Narrative Reason for Appointment: Patient ID: Wilmer Navarro is a 38 y.o. female who presents for Well Women Visit Patient presents today for Annual Exam. MEDICATIONS Current Outpatient Medications Medication Instructions albuterol HFA [...] Oral, Every 8 hours PRN levothyroxine (SYNTHROID) 88 mcg, Oral, Daily before breakfast magnesium oxide (MAG-OX) 400 mg, Oral, Daily montelukast (SINGULAIR) 10 mg, Oral, Nightly pantoprazole (PROTONIX) 40 mg, Oral, Daily before breakfast, Do not crush, chew, or split. polyethylene glycol (PEG) 3350 (MIRALAX) 17 g, Oral, Daily, Mix in 4 oz fluid and drink Potassium 99 MG tablet Every 24 hours triamcinolone (Nasacort) 55 MCG/ACT nasal inhaler 2 sprays, Each Nostril, Daily ALLERGIES Allergies Allergen Reactions Antihistamines, Diphenhydramine-Type Prednisone Diphenhydramine Hives, Itching, Rash and Unknown Latex Hives, Itching, Rash and Unknown PROBLEMS Active Ambulatory Problems Diagnosis Date Noted Arthritis of knee, right 04/01/2023 Anxiety and depression ([facility]) 04/01/2023 Elevated glucose 04/01/2023 GERD (gastroesophageal reflux disease) 04/01/2023 Hair loss 04/01/2023 Hypomagnesemia 04/01/2023 Leg cramps 04/01/2023 Liver function abnormality 04/01/2023 Painful lumpy right breast 04/01/2023 Psoriasis ([facility]) 04/01/2023 Acute postoperative pain of right knee 04/01/2023 Body mass index (BMI) 45.0-49.9, adult ([facility]) 04/13/2023 Ventral hernia without obstruction or gangrene 08/31/2023 Mild persistent asthma without complication ([facility]) 02/08/2024 Morbid (severe) obesity due to excess calories ([facility]) 02/08/2024 Encounter for screening mammogram for malignant neoplasm of breast 02/08/2024 Status post right knee replacement 02/22/2024 Difficulty walking 02/22/2024 Hypothyroid ([facility]) 05/09/2024 Other constipation 05/09/2024 Resolved Ambulatory Problems Diagnosis Date Noted Internal derangement of right knee 04/01/2023 History of knee problem 03/27/2020 Borderline abnormal thyroid function test 04/01/2023 Intermittent asthma without complication ([facility]) 04/01/2023 Moderate persistent asthma without complication ([facility]) 04/01/2023 Umbilical hernia 04/01/2023 Acute medial meniscal tear 04/01/2023 Abnormal TSH 05/18/2023 Non-recurrent acute suppurative otitis media of left ear without spontaneous rupture of tympanic membrane 05/18/2023 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 Cellulitis 08/31/2023 Past Medical History: Diagnosis Date Arthritis COVID-19 virus detected Depression ([facility]) 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[facility]) Morbid obesity with BMI of 50.0-59.9, adult ([facility]) 04/13/2023 HISTORY PAST MEDICAL HISTORY SOCIAL HISTORY Past Medical History: Diagnosis Date Arthritis Borderline abnormal thyroid function test COVID-19 virus detected Depression ([facility]) 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[facility]) Morbid obesity with BMI of 50.0-59.9, adult ([facility]) 04/13/2023 Umbilical hernia Social History Tobacco Use Smoking status: Never Smokeless tobacco: Never Vaping Use Vaping status: Never Used Substance Use Topics Alcohol use: Never Drug use: Never FAMILY HISTORY Family History Problem Relation Name Age of Onset Asthma Mother Diabetes Mother Asthma Sister ADD / ADHD Brother Cancer Other grandmother grandfather Bone cancer Lymphoma Other grandmother SURGICAL HISTORY Past Surgical History: Procedure Laterality Date GALLBLADDER SURGERY Laparoscopic HERNIA REPAIR Umbilical KNEE ARTHROPLASTY Right 02/21/2024 MTP MENISCECTOMY Right 02/28/2020 Dr Garcia OTHER SURGICAL HISTORY 2009 Procedure:NUBAIN & PHENERGAN;Disease:ACUTE CHOLEYCYSTITIS TONSILLECTOMY 05/11/2007 and Adenoidectomy REVIEW OF SYSTEMS Review of Systems: Review of Systems Constitutional: Negative. Positive for hot flashes. HENT: Negative. Eyes: Negative. Respiratory: Negative. Cardiovascular: Negative. Gastrointestinal: Negative. Genitourinary: Negative. Musculoskeletal: Negative. Skin: Negative. Neurological: Negative. All other systems reviewed and are negative. Hematological: Negative. Allergic/Immunologic: Negative. OBJECTIVE Objective: Physical Exam Constitutional: Appearance: Normal appearance. She is well-developed. Genitourinary: Vulva normal. Cardiovascular: Rate and Rhythm: Normal rate and regular rhythm. Pulmonary: Effort: Pulmonary effort is normal. Breath sounds: Normal breath sounds. Abdominal: General: Bowel sounds are normal. There is no distension. Palpations: Abdomen is soft. Tenderness: There is no abdominal tenderness. There is no guarding or rebound. Musculoskeletal: General: No swelling. Normal range of motion. Right lower leg: No edema. Left lower leg: No edema. Neurological: Mental Status: She is alert and oriented to person, place, and time. Skin: General: Skin is warm and dry. Psychiatric: Mood and Affect: Mood normal. Behavior: Behavior normal. Vitals and nursing note reviewed. Exam conducted with a auto transport driver present. Vitals: Estimated body mass index is 48.55 kg/m as calculated from the following: Height as of 05/09/24: 5' 6 . Weight as of this encounter: 300 lb 12.8 oz. BP: 110/90 Patient's last menstrual period was 05/24/2024 (exact date). ASSESSMENT & PLAN ICD-10-CM 1. Well woman exam with routine gynecological exam Z01.419 THIN PREP TIS PAP AND HR HPV DNA 2. Encounter for screening mammogram for malignant neoplasm of breast Z12.31 Annual: Patient presents today for an annual exam. Patient states she is doing well and has complaints of hot flashes, using essential oils for thyroid. Pap was obtained without difficulty and patient given mammogram order to have scheduled/obtained. No orders of the defined types were placed in this encounter. Follow Up: Patient is to return in one year for annual unless needed otherwise. Documented by Coty Chaidez LPN on behalf of: Javier Morales DO documented in this encounter [facility] 05-10-2024 History of Present illness Narrative Associated Problem(s): Hypomagnesemia Takes PPI, recommend periodic monitoring documented in this encounter [facility] 05-10-2024 History of Present illness Narrative Images from the original note were not included. Physical Therapy Progress Visit Patient Name: Wilmer Navarro Today's Date: 05/10/2024 Encounter Diagnoses Name Primary? Acute postoperative pain of right knee Yes Status post right knee replacement Aftercare following right knee joint replacement surgery Arthritis of knee, right Presence of right artificial knee joint Visit number: 13 (7 in home) Timed Code Treatment: 30 minutes Total Treatment Time: 40 minutes Time In: 1518 Time Out: 1600 History: Underwent surgery for right TKA 02/20/25. Transitioning from home therapy to out patient Precautions: universal Subjective: Pt with no new complaints, nervous about return to work. RTW 05/15/24. Pain: 0/10 Objective: at Evaluation [...] Myofascial Release, Muscle Energy Technique Therapeutic Exercise: (30 minutes) guided pt through ther and flex ex per grid to improve right LE quad strength, functional mobility and gait Therapeutic Activity: () Exercises to improve dynamic activities, functional tasks, functional mobility to return to prior activity level as needed Neuromuscular re-education: () Static and dynamic balancing activity using various surfaces, single leg, tandem to improve R LE proprioception, balance and strength Modalities: Heat, Ice, Electrical Stimulation, Ultrasound, Cervical Mechanical Traction, Lumbar Mechanical Traction, Iontophoresis, and Fluidotherapy as needed. Assessment: Pt has completed 20 PT sessions following right TKA. Held some exercises due to pt having to leave early this date. Strength with ascending 12 inch step continues to improve. Will continue. Outcome Measure: Lower Extremity Functional Scale (LEFS): 31/80 on 03/15/24, 43/80 on 04/26/24.54 Rehab Diagnosis: right knee pain and weakness; decrease ROM and mobility; difficulty walking Short Term Goal: To be met in 2 weeks Goal 1: Pt to be instructed in home exercise program. [employer] Goals: To be met in 10 weeks [...] sign below. Date: documented in this encounter 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[facility]) Morbid obesity with BMI of 50.0-59.9, adult ([facility]) 04/13/2023 Umbilical hernia Past Surgical History: [...] Items Addressed This Visit Anxiety and depression ([facility]) Current meds: wellbutrin and uses prn vistaril [...] Magnesium Body mass index (BMI) 45.0-49.9, adult ([facility]) Mild persistent asthma without complication ([facility]) - Primary Symbicort for maintenance, signulair, [...] Orders Comprehensive metabolic panel Lipid panel Hypothyroid (CMS/HCC) Current med: levothyroxine Check labs [...] as albuterol prn documented in this encounter [facility] 05-09-2024 Instructions Elvie Greer NP - 05/09/2024 [...] talk with andrew documented in this encounter [facility] 05-08-2024 History of Present illness Narrative Images [...] to be instructed in home exercise program. [facility] Goals: To be met in 10 weeks [...] sign below. Date: documented in this encounter [facility] 05-03-2024 History of Present illness Narrative Images [...] 54 minutes Time In: 1345 Time Out: 65926 History: Underwent surgery for right TKA 02/20/25. [...] to be instructed in home exercise program. [facility] Goals: To be met in 10 weeks [...] sign below. Date: documented in this encounter [facility] 05-01-2024 History of Present illness Narrative Images [...] Iontophoresis, and Fluidotherapy as needed. Assessment: LEFS: 43 PROM: 0 - 123 MMT: 4/5 knee [...] to be instructed in home exercise program. [employer] Goals: To be met in 10 weeks [...] sign below. Date: documented in this encounter [facility] 04-24-2024 History of Present illness Narrative Physical [...] Lower Extremity Functional Scale (LEFS): 31/80 on 1/8/25 Rehab Diagnosis: right knee pain and weakness; decrease ROM and mobility; difficulty walking Short Term Goal: To be met in 2 weeks Goal 1: Pt to be instructed in home exercise program. [employer] Goals: To be met in 10 weeks [...] sign below. Date: documented in this encounter [facility] 04-10-2024 History of Present illness Narrative Images [...] to be instructed in home exercise program. [facility] Goals: To be met in 10 weeks [...] sign below. Date: documented in this encounter [facility] 04-03-2024 History of Present illness Narrative Images [...] to be instructed in home exercise program. [facility] Goals: To be met in 10 weeks [...] sign below. Date: documented in this encounter [facility] 03-23-2024 History of Present illness Narrative Post [...] three months for repeat x-ray and exam. correction antibiotic prophylaxis for dental or invasive work were reviewed. Numerous questions were answered. The patient is discharged in stable condition. documented in this encounter [facility] 03-13-2024 History of Present illness Narrative Physical [...] out: 11:20 am Total time: 20 minutes [id number] gait training x 20 minutes Precautions: WBAT [...] 10/12. Total Score = Balance + Gait /. Tinetti tool score: < = Low fall [...] Assessment & Plan Pt making steady gains. [place] removed on 03/13/24. Assessment Impairments: abnormal gait, [...] AD with supervision, step to gait pattern. [facility] Goals Goal 1 : Patient will demonstrate [...] to transition to OP on 03/15/24 at [facility]. documented in this encounter [facility] 03-10-2024 History of Present illness Narrative Physical [...] out: 1:30 pm Total time: 30 minutes [id number] TherEx x 20 minutes 05492 gait training x 10 minutes Precautions: WBAT [...] Assessment & Plan Pt making steady gains. [place] to be removed on 03/13/24. Pt will [...] AD with supervision, step to gait pattern. [facility] Goals Goal 1 : Patient will demonstrate [...] icing and elevating. documented in this encounter [facility] 03-06-2024 History of Present illness Narrative Physical [...] out: 12:38 pm Total time: 38 minutes [id number] TherEx x 30 minutes 51175 gait training x 10 minutes Precautions: WBAT Right LE; Right TKA protocol; Recent left TKA Pain Management: The patient is complaining of pain located in the Righ knee and thigh region. Pain rating 4/10. The pain is improved by ice and medication 1 every 6 hours of [place]. The pain is aggravated by activity. 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 Assessment Impairments: abnormal gait, abnormal or restricted [...] AD with supervision, step to gait pattern. [employer] Goals Goal 1 : Patient will demonstrate [...] icing and elevating. documented in this encounter [facility] 03-02-2024 History of Present illness Narrative Physical [...] out: 2:00 pm Total time: 40 minutes 17059 TherEx x 30 minutes 60768 gait training x 10 minutes Precautions: WBAT Right LE; Right TKA protocol; Recent left TKA Pain Management: The patient is complaining of pain located in the Righ knee and thigh region. Pain rating 4/10. The pain is improved by ice and medication 1 every 6 hours of [place]. The pain is aggravated by activity. The [...] AD with supervision, step to gait pattern. [facility] Goals Goal 1 : Patient will demonstrate [...] icing and elevating. documented in this encounter [facility] 02-28-2024 History of Present illness Narrative Physical [...] out: 10:37 am Total time: 38 minutes 21514 TherEx x 30 minutes 36981 gait training x 8 minutes Precautions: WBAT Right LE; Right TKA protocol; Recent left TKA Pain Management: The patient is complaining of pain located in the Righ knee and thigh region. Pain rating 4/10. The pain is improved by ice and medication 1-2 every 4 hours of [place]. The pain is aggravated by activity. The [...] AD with supervision, step to gait pattern. [facility] Goals Goal 1 : Patient will demonstrate [...] icing and elevating. documented in this encounter [facility] 02-24-2024 History of Present illness Narrative Physical [...] out: 11:00 am Total time: 30 minutes 73191 TherEx x 15 minutes 63029 gait training x 15 minutes Precautions: WBAT Right LE; Right TKA protocol; Recent left TKA Pain Management: The patient is complaining of pain located in the Righ knee and thigh region. Pain rating 4/10. The pain is improved by ice and medication 1 every 4 hours of [place]. The pain is aggravated by activity. The [...] AD with supervision, step to gait pattern. [facility] Goals Goal 1 : Patient will demonstrate [...] icing and elevating. documented in this encounter [facility] 02-23-2024 Note Progress Note-Anna Marie belle Patient: [...] when meets criteria ( To home ). [facility] Comment on above: Result Comment: Elec [...] list: All Problems Hypothyroid / SNOMED CT 93762504 / Confirmed Depression / SNOMED CT 70182351 / Confirmed Resolved: Syncope / SNOMED CT 160156886 Resolved: GERD - Gastro-esophageal reflux disease / SNOMED CT 5764790764 Resolved: Asthma / SNOMED CT 224937686 Histories Procedure history: History of hernia repair (6910787135). History of hernia repair (1838413151). Cholecystectomy (13760747). Social History Social & Psychosocial Habits Alcohol 01/25/2024 Risk Assessment: Denies Alcohol Use Substance Abuse 01/25/2024 Risk Assessment: Denies Substance Abuse Tobacco 01/25/2024 Risk Assessment: Denies Tobacco Use . Physical Examination Airway: Mallampati classification: II (soft palate, fauces, uvula visible). Respiratory: adequate air exchange. Cardiovascular: Regular rhythm. Plan [place] [employer] (ASA) physical status classification: Class IV. Anesthetic Preoperative Plan: Anesthesia General. [facility] Comment on above: Result Comment: Elec [...] out: 11:15 am Total time: 45 minutes 64268 PT Eval x 20 minutes 40462 TherEx x 15 minutes 30044 gait training x 10 minutes Precautions: WBAT [...] AD with supervision, step to gait pattern. [facility] Goals Goal 1 : Patient will demonstrate [...] to achieve PLOF. documented in this encounter [facility] 02-21-2024 Hospital Discharge instructions Patient Education 02/21/2024 [...] possible. If the spirometer includes a women's swim coach indicator, use this to guide you [...] provider. Document Revised: 05/13/2020 Document Reviewed: 05/13/2020 [email or web address] Patient Education 2023 [employer]. 02/21/2024 12:52:35 Knee Cryocuff Patient Instructions - FT (CUSTOM) 02/21/2024 12:52:33 Post Op Patient Instructions - FT (Custom) (CUSTOM) 02/16/2024 15:42:30 Khan - Total Knee Arthroplasty (CUSTOM) [place], [place] [facility] DISCHARGE INSTRUCTIONS TOTAL KNEE [...] will continue at home, possible with the assistant sales manager of [facility] or in [...] too soon, you are considered an impaired double bottom driver, and this could be a problem. It is therefore advised not to drive until after your first office visit following surgery FOLLOW-UP OFFICE VISIT: ____ Chan Khan, DO [facility] [address] [place] [id number] Reviewed: 08 Follow Up Care 01/13/2024 16:25:51 With:GUILLERMO Villarreal Address: [address] [place], [place] [id number]- Business (1) When:03/23/2024 15:00:00 Comments:Keep scheduled appointment [facility] 02-21-2024 Note Patient Education - Text [...] ??? If the spirometer includes a women's swim coach indicator, use this to guide you [...] provider. Document Revised: 05/13/2020 Document Reviewed: 05/13/2020 Elsevier Patient Education ? 2023 [email or web address] [place], [place] [facility] DISCHARGE INSTRUCTIONS TOTAL KNEE ARTHROPLASTY INCISION CARE: Mepilex dressing can get wet with showers. Please remove 10 days after surgery per instruction sheet. If shaunna present, please coordinate removal 21 days after surgery with office (more content not included)... [facility] 02-16-2024 Note Patient Education - Text [place], [place] [facility] DISCHARGE INSTRUCTIONS TOTAL KNEE [...] will continue at home, possible with the assistant sales manager of [facility] or in [...] too soon, you are considered an impaired double bottom driver, and this could be a problem. It is therefore advised not to drive until after your first office visit following surgery FOLLOW-UP OFFICE VISIT: ____ Chan Khan, DO [facility] [address] [place], [place] [id number] Reviewed: 06-13 [facility] 02-08-2024 History of Present illness Narrative Associated Problem(s): Psoriasis (CMS/HCC) Needs refill of triamcinolone 0.1% ointment, also saw Rheumatology, considering treatment in the future documented in this encounter [facility] 02-08-2024 History of Present illness Narrative [...] thyroid function test COVID-19 virus detected Depression (CMS/HCC) 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CMS/HCC) Morbid obesity with BMI of 50.0-59.9, adult (CMS/[facility]) 04/13/2023 Umbilical hernia Past Surgical History: Procedure Laterality Date GALLBLADDER SURGERY Laparoscopic HERNIA REPAIR Umbilical MENISCECTOMY Right 02/28/2020 Dr Garcia OTHER SURGICAL HISTORY 2010 Procedure:NUBAIN & PHENERGAN;Disease:ACUTE CHOLEYCYSTITIS TONSILLECTOMY 05/11/2007 and [...] shot as well documented in this encounter [facility] 02-08-2024 Instructions Elvie Greer NP - 02/08/2024 8:40 AM EST Continue with weight loss journey you are doing great!!! No dose changes in meds No labs due at this time documented in this encounter [facility] 01-13-2024 History of Present illness Narrative Images [...] of months ago with a provider in [place]. She was instructed on weight loss. She [...] thyroid function test COVID-19 virus detected Depression (CMS/HCC) 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CMS/HCC) Morbid obesity with BMI of 50.0-59.9, adult ([facility]/HCC) 04/13/2023 Umbilical hernia PAST SURGICAL HISTORY: Past [...] is aware that results cannot be guaranteed. correction antibiotic prophylaxis with dental or invasive surgical [...] 9:34 PM EST documented in this encounter [facility] 11-09-2023 History of Present illness Narrative Associated Problem(s): Arthritis of knee, right Continue with ortho and weight loss Will refer to rheum for evaluation as well Associated Problem(s): Psoriasis ([facility]) Will send to Rheumatology for evaluation [...] thyroid function test COVID-19 virus detected Depression (CMS/HCC) 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CMS/HCC) Morbid obesity with BMI of 50.0-59.9, adult ([facility]) 04/13/2023 Umbilical hernia Past Surgical History: [...] inhaler montelukast (Singulair) 10 MG tablet Psoriasis ([facility]) Will send to Rheumatology for evaluation for psoriatic arthritis Relevant Orders Ambulatory referral to Rheumatology Morbid obesity with BMI of 50.0-59.9, adult ([facility]) Doing well Aura's thyroiditis ([facility]) - Primary Bump up dose thyroid to 75mcg Recheck labs in 8 weeks Relevant Medications levothyroxine (Synthroid) 75 MCG tablet Other Relevant Orders TSH T4, free documented in this encounter [facility] 04-22-2023 History of Present illness Narrative Images [...] Oral montelukast (SINGULAIR) 10 mg, Oral, Nightly Bronson-3 Fatty Acids (Fish Oil) 1000 MG capsule [...] develop for requiring urgent evaluation. 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 04-14-2023 Telephone encounter Note jeannie from [employer] calling about pt's traMADol (Ultram) 50 MG tablet. They need it verified. You wrote a quanity of 15 days but the directions say 1 tablet PO for 10 days [facility] 04-14-2023 Miscellaneous Notes jeannie from [employer] calling about pt's traMADol (Ultram) 50 MG tablet. They need it verified. You wrote a quanity of 15 days but the directions say 1 tablet PO for 10 days documented in this encounter [facility] 02-26-2023 Evaluation note Encounter Date Diagnosis Assessment [...] PCP if no improvement in 2-3 days. [employer] Other Evaluation + Plan note Future Appointments Appointment Date:02/21/2024 11:15:00 AM Scheduled Provider: Location:[facility] Services Appointment Type:Surgery FT [facility] Evaluation note* Diagnosis Chronic pain of right knee documented in this encounter [facility] HealthcareEvaluation note* Diagnosis Primary osteoarthritis of right knee- Primary Right knee pain, unspecified chronicity documented in this encounter [facility] HealthcareEvaluation noteNo assessment information [facility] Work Phone: Evaluation note* Diagnosis Onset Date Resolution Status Cellulitis of arm, left acut e [facility] Work Phone: Evaluation note* Diagnosis Anxiety and depression (CMS/HCC)- Primary Elevated glucose Other abnormal glucose Hypomagnesemia Disorders of magnesium metabolism Gastroesophageal reflux disease, unspecified whether esophagitis present Morbid obesity with BMI of 50.0-59.9, adult ([facility]) Moderate persistent asthma without complication (CMS/HCC) Chronic pain of right knee Anxiety and depression (CMS/HCC)- Primary Abnormal TSH Chronic pain of right knee Non-recurrent acute suppurative otitis media of left ear without spontaneous rupture of tympanic membrane Aura's thyroiditis (CMS/HCC)- Primary Chronic lymphocytic thyroiditis Anxiety and depression (CMS/HCC) Morbid obesity with BMI of 50.0-59.9, adult ([facility]) Arthritis of knee, right Cellulitis of lower extremity, unspecified laterality- Primary Moderate persistent asthma without complication (CMS/HCC) Ventral hernia without obstruction or gangrene Unspecified ventral hernia without mention of obstruction or gangrene Gastroesophageal reflux disease, unspecified whether esophagitis present Morbid obesity with BMI of 50.0-59.9, adult ([facility]) Aura's thyroiditis (CMS/HCC) Chronic lymphocytic thyroiditis Anxiety and depression (CMS/HCC) Gastroesophageal reflux disease, unspecified whether esophagitis present- Primary Aura's thyroiditis (CMS/HCC) Chronic lymphocytic thyroiditis Moderate persistent asthma without complication (CMS/HCC) Morbid obesity with BMI of 50.0-59.9, adult ([facility]/HCC) Arthritis of knee, right Aura's thyroiditis (CMS/HCC)- Primary Chronic lymphocytic thyroiditis Morbid obesity with BMI of 50.0-59.9, adult ([facility]/HCC) Psoriasis (CMS/HCC) Other psoriasis Anxiety and depression (CMS/HCC) Gastroesophageal reflux disease, unspecified whether esophagitis present Moderate persistent asthma without complication (CMS/HCC) Arthritis of knee, right Anxiety and depression ([facility]/HCC) Aura's thyroiditis ([facility]) Chronic lymphocytic thyroiditis documented in this encounter [facility] HealthcareEvaluation note* Diagnosis Anxiety and depression ([facility]/HCC)- Primary Elevated glucose Other abnormal glucose Hypomagnesemia Disorders of magnesium metabolism Gastroesophageal reflux disease, unspecified whether esophagitis present Morbid obesity with BMI of 50.0-59.9, adult ([facility]) Moderate persistent asthma without complication ([facility]) Chronic pain of right knee Anxiety and depression ([facility])- Primary Abnormal TSH Chronic pain of right knee Non-recurrent acute suppurative otitis media of left ear without spontaneous rupture of tympanic membrane Aura's thyroiditis ([facility])- Primary Chronic lymphocytic thyroiditis Anxiety and depression ([facility]) Morbid obesity with BMI of 50.0-59.9, adult ([facility]) Arthritis of knee, right Cellulitis of lower extremity, unspecified laterality- Primary Moderate persistent asthma without complication ([facility]) Ventral hernia without obstruction or gangrene Unspecified ventral hernia without mention of obstruction or gangrene Gastroesophageal reflux disease, unspecified whether esophagitis present Morbid obesity with BMI of 50.0-59.9, adult ([facility]) Aura's thyroiditis ([facility]) Chronic lymphocytic thyroiditis Anxiety and depression ([facility]) Gastroesophageal reflux disease, unspecified whether esophagitis present- Primary Aura's thyroiditis ([facility]) Chronic lymphocytic thyroiditis Moderate persistent asthma without complication ([facility]) Morbid obesity with BMI of 50.0-59.9, adult ([facility]) Arthritis of knee, right Aura's thyroiditis ([facility])- Primary Chronic lymphocytic thyroiditis Morbid obesity with BMI of 50.0-59.9, adult ([facility]) Psoriasis ([facility]) Other psoriasis Anxiety and depression ([facility]) Gastroesophageal reflux disease, unspecified whether esophagitis present Moderate persistent asthma without complication ([facility]) Arthritis of knee, right Pre-op testing- Primary Unspecified pre-operative examination documented in this encounter [facility] HealthcareEvaluation note* Diagnosis Anxiety and depression ([facility])- Primary Elevated glucose Other abnormal glucose Hypomagnesemia Disorders of magnesium metabolism Gastroesophageal reflux disease, unspecified whether esophagitis present Morbid obesity with BMI of 50.0-59.9, adult ([facility]) Moderate persistent asthma without complication ([facility]) Chronic pain of right knee Anxiety and depression ([facility])- Primary Abnormal TSH Chronic pain of right knee Non-recurrent acute suppurative otitis media of left ear without spontaneous rupture of tympanic membrane Aura's thyroiditis ([facility]/HCC)- Primary Chronic lymphocytic thyroiditis Anxiety and depression ([facility]) Morbid obesity with BMI of 50.0-59.9, adult ([facility]) Arthritis of knee, right Cellulitis of lower extremity, unspecified laterality- Primary Moderate persistent asthma without complication ([facility]) Ventral hernia without obstruction or gangrene Unspecified ventral hernia without mention of obstruction or gangrene Gastroesophageal reflux disease, unspecified whether esophagitis present Morbid obesity with BMI of 50.0-59.9, adult ([facility]) Aura's thyroiditis ([facility]) Chronic lymphocytic thyroiditis Anxiety and depression ([facility]) Gastroesophageal reflux disease, unspecified whether esophagitis present- Primary Aura's thyroiditis ([facility]) Chronic lymphocytic thyroiditis Moderate persistent asthma without complication ([facility]) Morbid obesity with BMI of 50.0-59.9, adult ([facility]) Arthritis of knee, right Aura's thyroiditis ([facility])- Primary Chronic lymphocytic thyroiditis Morbid obesity with BMI of 50.0-59.9, adult ([facility]) Psoriasis ([facility]) Other psoriasis Anxiety and depression ([facility]) Gastroesophageal reflux disease, unspecified whether esophagitis present Moderate persistent asthma without complication ([facility]) Arthritis of knee, right Anxiety and depression ([facility])- Primary Mild persistent asthma without complication ([facility]) Gastroesophageal reflux disease, unspecified whether esophagitis present Morbid obesity with BMI of 50.0-59.9, adult ([facility]) Aura's thyroiditis ([facility] Chronic lymphocytic thyroiditis Morbid obesity due to excess calories ([facility] Moderate persistent asthma without complication ([facility]) Encounter for screening mammogram for malignant neoplasm of breast Arthritis of knee, right Psoriasis ([facility])- Primary Other psoriasis documented in this encounter [facility] HealthcareEvaluation note* Diagnosis Anxiety and depression ([facility])- Primary Elevated glucose Other abnormal glucose Hypomagnesemia Disorders of magnesium metabolism Gastroesophageal reflux disease, unspecified whether esophagitis present Morbid obesity with BMI of 50.0-59.9, adult ([facility]) Moderate persistent asthma without complication ([facility]) Chronic pain of right knee Anxiety and depression ([facility])- Primary Abnormal TSH Chronic pain of right knee Non-recurrent acute suppurative otitis media of left ear without spontaneous rupture of tympanic membrane Aura's thyroiditis ([facility])- Primary Chronic lymphocytic thyroiditis Anxiety and depression ([facility]) Morbid obesity with BMI of 50.0-59.9, adult ([facility]) Arthritis of knee, right Cellulitis of lower extremity, unspecified laterality- Primary Moderate persistent asthma without complication ([facility]) Ventral hernia without obstruction or gangrene Unspecified ventral hernia without mention of obstruction or gangrene Gastroesophageal reflux disease, unspecified whether esophagitis present Morbid obesity with BMI of 50.0-59.9, adult ([facility]) Aura's thyroiditis ([facility] Chronic lymphocytic thyroiditis Anxiety and depression ([facility]) Gastroesophageal reflux disease, unspecified whether esophagitis present- Primary Aura's thyroiditis ([facility]) Chronic lymphocytic thyroiditis Moderate persistent asthma without complication ([facility]) Morbid obesity with BMI of 50.0-59.9, adult ([facility]) Arthritis of knee, right Aura's thyroiditis ([facility])- Primary Chronic lymphocytic thyroiditis Morbid obesity with BMI of 50.0-59.9, adult ([facility]) Psoriasis ([facility]) Other psoriasis Anxiety and depression ([facility]) Gastroesophageal reflux disease, unspecified whether esophagitis present Moderate persistent asthma without complication ([facility]) Arthritis of knee, right Anxiety and depression ([facility])- Primary Mild persistent asthma without complication ([facility]) Gastroesophageal reflux disease, unspecified whether esophagitis present Morbid obesity with BMI of 50.0-59.9, adult ([facility]) Aura's thyroiditis ([facility] Chronic lymphocytic thyroiditis Morbid obesity due to excess calories ([facility] Moderate persistent asthma without complication ([facility]) Encounter for screening mammogram for malignant neoplasm of breast Arthritis of knee, right documented in this encounter [facility]* Diagnosis Anxiety and depression ([facility])- Primary Elevated glucose Other abnormal glucose Hypomagnesemia Disorders of magnesium metabolism Gastroesophageal reflux disease, unspecified whether esophagitis present Morbid obesity with BMI of 50.0-59.9, adult ([facility]) Moderate persistent asthma without complication ([facility]) Chronic pain of right knee Anxiety and depression ([facility])- Primary Abnormal TSH Chronic pain of right knee Non-recurrent acute suppurative otitis media of left ear without spontaneous rupture of tympanic membrane Aura's thyroiditis ([facility]/HCC)- Primary Chronic lymphocytic thyroiditis Anxiety and depression ([facility]) Morbid obesity with BMI of 50.0-59.9, adult ([facility]) Arthritis of knee, right Cellulitis of lower extremity, unspecified laterality- Primary Moderate persistent asthma without complication ([facility]) Ventral hernia without obstruction or gangrene Unspecified ventral hernia without mention of obstruction or gangrene Gastroesophageal reflux disease, unspecified whether esophagitis present Morbid obesity with BMI of 50.0-59.9, adult ([facility]) Aura's thyroiditis ([facility]) Chronic lymphocytic thyroiditis Anxiety and depression ([facility]) Gastroesophageal reflux disease, unspecified whether esophagitis present- Primary Aura's thyroiditis ([facility] Chronic lymphocytic thyroiditis Moderate persistent asthma without complication ([facility]) Morbid obesity with BMI of 50.0-59.9, adult ([facility]) Arthritis of knee, right Aura's thyroiditis ([facility])- Primary Chronic lymphocytic thyroiditis Morbid obesity with BMI of 50.0-59.9, adult ([facility]) Psoriasis ([facility]) Other psoriasis Anxiety and depression ([facility]) Gastroesophageal reflux disease, unspecified whether esophagitis present Moderate persistent asthma without complication ([facility]) Arthritis of knee, right Anxiety and depression ([facility])- Primary Mild persistent asthma without complication ([facility]) Gastroesophageal reflux disease, unspecified whether esophagitis present Morbid obesity with BMI of 50.0-59.9, adult ([facility] [facility] Aura's thyroiditis ([facility]) Chronic lymphocytic thyroiditis Morbid obesity due to excess calories ([facility]) Moderate persistent asthma without complication ([facility]) Encounter for screening mammogram for malignant neoplasm of breast Arthritis of knee, right Psoriasis ([facility])- Primary Other psoriasis Primary osteoarthritis of right knee- Primary documented in this encounter [facility]* Diagnosis Anxiety and depression ([facility])- Primary Elevated glucose Other abnormal glucose Hypomagnesemia Disorders of magnesium metabolism Gastroesophageal reflux disease, unspecified whether esophagitis present Morbid obesity with BMI of 50.0-59.9, adult ([facility]) Moderate persistent asthma without complication ([facility]) Chronic pain of right knee Anxiety and depression ([facility])- Primary Abnormal TSH Chronic pain of right knee Non-recurrent acute suppurative otitis media of left ear without spontaneous rupture of tympanic membrane Aura's thyroiditis ([facility]/HCC)- Primary Chronic lymphocytic thyroiditis Anxiety and depression ([facility]) Morbid obesity with BMI of 50.0-59.9, adult ([facility]) Arthritis of knee, right Cellulitis of lower extremity, unspecified laterality- Primary Moderate persistent asthma without complication ([facility]) Ventral hernia without obstruction or gangrene Unspecified ventral hernia without mention of obstruction or gangrene Gastroesophageal reflux disease, unspecified whether esophagitis present Morbid obesity with BMI of 50.0-59.9, adult ([facility]) Aura's thyroiditis ([facility] Chronic lymphocytic thyroiditis Anxiety and depression ([facility]) Gastroesophageal reflux disease, unspecified whether esophagitis present- Primary Aura's thyroiditis ([facility] Chronic lymphocytic thyroiditis Moderate persistent asthma without complication ([facility]) Morbid obesity with BMI of 50.0-59.9, adult ([facility]) Arthritis of knee, right Aura's thyroiditis ([facility]/HCC)- Primary Chronic lymphocytic thyroiditis Morbid obesity with BMI of 50.0-59.9, adult ([facility]) Psoriasis ([facility] Other psoriasis Anxiety and depression ([facility]) Gastroesophageal reflux disease, unspecified whether esophagitis present Moderate persistent asthma without complication ([facility]) Arthritis of knee, right Anxiety and depression ([facility]/HCC)- Primary Mild persistent asthma without complication ([facility]) Gastroesophageal reflux disease, unspecified whether esophagitis present Morbid obesity with BMI of 50.0-59.9, adult ([facility]) Aura's thyroiditis ([facility] Chronic lymphocytic thyroiditis Morbid obesity due to excess calories ([facility]) Moderate persistent asthma without complication ([facility]) Encounter for screening mammogram for malignant neoplasm of breast Arthritis of knee, right Psoriasis ([facility])- Primary Other psoriasis Arthritis of knee, right- Primary Acute postoperative pain of right knee Status post right knee replacement Difficulty walking Difficulty in walking documented in this encounter [facility]* Diagnosis Aura's thyroiditis ([facility]/HCC)- Primary Chronic lymphocytic thyroiditis Morbid obesity with BMI of 50.0-59.9, adult ([facility]) Psoriasis ([facility] Other psoriasis Anxiety and depression ([facility]) Gastroesophageal reflux disease, unspecified whether esophagitis present Moderate persistent asthma without complication ([facility]) Arthritis of knee, right documented in this encounter [facility]* Diagnosis Gastroesophageal reflux disease, unspecified whether esophagitis present documented in this encounter [facility]* Diagnosis Anxiety and depression ([facility])- Primary Elevated glucose Other abnormal glucose Hypomagnesemia Disorders of magnesium metabolism Gastroesophageal reflux disease, unspecified whether esophagitis present Morbid obesity with BMI of 50.0-59.9, adult ([facility] Moderate persistent asthma without complication ([facility] Chronic pain of right knee Anxiety and depression ([facility])- Primary Abnormal TSH Chronic pain of right knee Non-recurrent acute suppurative otitis media of left ear without spontaneous rupture of tympanic membrane Aura's thyroiditis ([facility])- Primary Chronic lymphocytic thyroiditis Anxiety and depression ([facility]) Morbid obesity with BMI of 50.0-59.9, adult ([facility]) Arthritis of knee, right Cellulitis of lower extremity, unspecified laterality- Primary Moderate persistent asthma without complication ([facility]) Ventral hernia without obstruction or gangrene Unspecified ventral hernia without mention of obstruction or gangrene Gastroesophageal reflux disease, unspecified whether esophagitis present Morbid obesity with BMI of 50.0-59.9, adult ([facility]) Aura's thyroiditis ([facility] Chronic lymphocytic thyroiditis Anxiety and depression ([facility]) Gastroesophageal reflux disease, unspecified whether esophagitis present- Primary Aura's thyroiditis ([facility] Chronic lymphocytic thyroiditis Moderate persistent asthma without complication ([facility]) Morbid obesity with BMI of 50.0-59.9, adult ([facility]) Arthritis of knee, right Aura's thyroiditis ([facility])- Primary Chronic lymphocytic thyroiditis Morbid obesity with BMI of 50.0-59.9, adult ([facility]) Psoriasis ([facility]) Other psoriasis Anxiety and depression ([facility]) Gastroesophageal reflux disease, unspecified whether esophagitis present Moderate persistent asthma without complication ([facility]) Arthritis of knee, right Anxiety and depression ([facility])- Primary Mild persistent asthma without complication ([facility]) Gastroesophageal reflux disease, unspecified whether esophagitis present Morbid obesity with BMI of 50.0-59.9, adult ([facility]) Aura[facility] thyroiditis ([facility]) Chronic lymphocytic thyroiditis Morbid obesity due to excess calories ([facility] Moderate persistent asthma without complication ([facility]) Encounter for screening mammogram for malignant neoplasm of breast Arthritis of knee, right Psoriasis ([facility])- Primary Other psoriasis Arthritis of knee, right- Primary Acute postoperative pain of right knee Status post right knee replacement Difficulty walking Difficulty in walking documented in this encounter [facility] HealthcareEvaluation note* Diagnosis Anxiety and depression ([facility])- Primary Elevated glucose Other abnormal glucose Hypomagnesemia Disorders of magnesium metabolism Gastroesophageal reflux disease, unspecified whether esophagitis present Morbid obesity with BMI of 50.0-59.9, adult ([facility]) Moderate persistent asthma without complication ([facility]) Chronic pain of right knee Anxiety and depression ([facility])- Primary Abnormal TSH Chronic pain of right knee Non-recurrent acute suppurative otitis media of left ear without spontaneous rupture of tympanic membrane Aura's thyroiditis ([facility])- Primary Chronic lymphocytic thyroiditis Anxiety and depression ([facility]) Morbid obesity with BMI of 50.0-59.9, adult ([facility]) Arthritis of knee, right Cellulitis of lower extremity, unspecified laterality- Primary Moderate persistent asthma without complication ([facility]) Ventral hernia without obstruction or gangrene Unspecified ventral hernia without mention of obstruction or gangrene Gastroesophageal reflux disease, unspecified whether esophagitis present Morbid obesity with BMI of 50.0-59.9, adult ([facility]) Aura's thyroiditis ([facility] Chronic lymphocytic thyroiditis Anxiety and depression ([facility]) Gastroesophageal reflux disease, unspecified whether esophagitis present- Primary Aura's thyroiditis ([facility] Chronic lymphocytic thyroiditis Moderate persistent asthma without complication ([facility]) Morbid obesity with BMI of 50.0-59.9, adult ([facility]) Arthritis of knee, right Aura's thyroiditis ([facility])- Primary Chronic lymphocytic thyroiditis Morbid obesity with BMI of 50.0-59.9, adult ([facility]) Psoriasis ([facility]) Other psoriasis Anxiety and depression ([facility]) Gastroesophageal reflux disease, unspecified whether esophagitis present Moderate persistent asthma without complication (CMS/HCC) Arthritis of knee, right Anxiety and depression ([facility]/HCC)- Primary Mild persistent asthma without complication (CMS/HCC) Gastroesophageal reflux disease, unspecified whether esophagitis present Morbid obesity with BMI of 50.0-59.9, adult ([facility]) Aura's thyroiditis (CMS/[facility]) Chronic lymphocytic thyroiditis Morbid obesity due to excess calories (CMS/[facility]) Moderate persistent asthma without complication ([facility]) Encounter for screening mammogram for malignant neoplasm of breast Arthritis of knee, right Psoriasis (CMS/[facility])- Primary Other psoriasis Arthritis of knee, right- Primary Acute postoperative pain of right knee Status post right knee replacement Difficulty walking Difficulty in walking documented in this encounter [facility]* Diagnosis Anxiety and depression ([facility])- Primary Elevated glucose Other abnormal glucose Hypomagnesemia Disorders of magnesium metabolism Gastroesophageal reflux disease, unspecified whether esophagitis present Morbid obesity with BMI of 50.0-59.9, adult ([facility]) Moderate persistent asthma without complication ([facility] Chronic pain of right knee Anxiety and depression (CMS/[facility])- Primary Abnormal TSH Chronic pain of right knee Non-recurrent acute suppurative otitis media of left ear without spontaneous rupture of tympanic membrane Aura's thyroiditis ([facility])- Primary Chronic lymphocytic thyroiditis Anxiety and depression ([facility]) Morbid obesity with BMI of 50.0-59.9, adult ([facility]) Arthritis of knee, right Cellulitis of lower extremity, unspecified laterality- Primary Moderate persistent asthma without complication ([facility]) Ventral hernia without obstruction or gangrene Unspecified ventral hernia without mention of obstruction or gangrene Gastroesophageal reflux disease, unspecified whether esophagitis present Morbid obesity with BMI of 50.0-59.9, adult ([facility]) Aura's thyroiditis ([facility] Chronic lymphocytic thyroiditis Anxiety and depression ([facility]) Gastroesophageal reflux disease, unspecified whether esophagitis present- Primary Aura's thyroiditis (CMS/HCC) Chronic lymphocytic thyroiditis Moderate persistent asthma without complication ([facility]) Morbid obesity with BMI of 50.0-59.9, adult ([facility]) Arthritis of knee, right Aura's thyroiditis ([facility])- Primary Chronic lymphocytic thyroiditis Morbid obesity with BMI of 50.0-59.9, adult ([facility]) Psoriasis (CMS/HCC) Other psoriasis Anxiety and depression (CMS/HCC) Gastroesophageal reflux disease, unspecified whether esophagitis present Moderate persistent asthma without complication (CMS/HCC) Arthritis of knee, right Anxiety and depression (CMS/HCC)- Primary Mild persistent asthma without complication (CMS/HCC) Gastroesophageal reflux disease, unspecified whether esophagitis present Morbid obesity with BMI of 50.0-59.9, adult ([facility]) Aura's thyroiditis (CMS/[facility]) Chronic lymphocytic thyroiditis Morbid obesity due to excess calories (CMS/HCC) Moderate persistent asthma without complication (CMS/[facility]) Encounter for screening mammogram for malignant neoplasm of breast Arthritis of knee, right Psoriasis (CMS/[facility])- Primary Other psoriasis Arthritis of knee, right- Primary Acute postoperative pain of right knee Status post right knee replacement Difficulty walking Difficulty in walking documented in this encounter [facility]* Diagnosis Anxiety and depression (CMS/[facility])- Primary Elevated glucose Other abnormal glucose Hypomagnesemia Disorders of magnesium metabolism Gastroesophageal reflux disease, unspecified whether esophagitis present Morbid obesity with BMI of 50.0-59.9, adult ([facility]) Moderate persistent asthma without complication (CMS/HCC) Chronic pain of right knee Anxiety and depression ([facility])- Primary Abnormal TSH Chronic pain of right knee Non-recurrent acute suppurative otitis media of left ear without spontaneous rupture of tympanic membrane Aura's thyroiditis ([facility])- Primary Chronic lymphocytic thyroiditis Anxiety and depression ([facility]) Morbid obesity with BMI of 50.0-59.9, adult ([facility]) Arthritis of knee, right Cellulitis of lower extremity, unspecified laterality- Primary Moderate persistent asthma without complication (CMS/[facility]) Ventral hernia without obstruction or gangrene Unspecified ventral hernia without mention of obstruction or gangrene Gastroesophageal reflux disease, unspecified whether esophagitis present Morbid obesity with BMI of 50.0-59.9, adult ([facility]) Aura's thyroiditis ([facility] Chronic lymphocytic thyroiditis Anxiety and depression ([facility]) Gastroesophageal reflux disease, unspecified whether esophagitis present- Primary Aura's thyroiditis (CMS/[facility]) Chronic lymphocytic thyroiditis Moderate persistent asthma without complication ([facility]/HCC) Morbid obesity with BMI of 50.0-59.9, adult ([facility]) Arthritis of knee, right Aura's thyroiditis (CMS/HCC)- Primary Chronic lymphocytic thyroiditis Morbid obesity with BMI of 50.0-59.9, adult ([facility]) Psoriasis ([facility]/HCC) Other psoriasis Anxiety and depression (CMS/[facility]) Gastroesophageal reflux disease, unspecified whether esophagitis present Moderate persistent asthma without complication (CMS/HCC) Arthritis of knee, right Anxiety and depression ([facility]/HCC)- Primary Mild persistent asthma without complication (CMS/[facility]) Gastroesophageal reflux disease, unspecified whether esophagitis present Morbid obesity with BMI of 50.0-59.9, adult ([facility]) Aura's thyroiditis ([facility] Chronic lymphocytic thyroiditis Morbid obesity due to excess calories (CMS/[facility]) Moderate persistent asthma without complication ([facility]) Encounter for screening mammogram for malignant neoplasm of breast Arthritis of knee, right Psoriasis ([facility])- Primary Other psoriasis Arthritis of knee, right- Primary Acute postoperative pain of right knee Status post right knee replacement Difficulty walking Difficulty in walking documented in this encounter [facility]* Diagnosis Anxiety and depression ([facility])- Primary Elevated glucose Other abnormal glucose Hypomagnesemia Disorders of magnesium metabolism Gastroesophageal reflux disease, unspecified whether esophagitis present Morbid obesity with BMI of 50.0-59.9, adult ([facility] Moderate persistent asthma without complication ([facility] Chronic pain of right knee Anxiety and depression ([facility])- Primary Abnormal TSH Chronic pain of right knee Non-recurrent acute suppurative otitis media of left ear without spontaneous rupture of tympanic membrane Aura's thyroiditis ([facility])- Primary Chronic lymphocytic thyroiditis Anxiety and depression ([facility]) Morbid obesity with BMI of 50.0-59.9, adult ([facility]) Arthritis of knee, right Cellulitis of lower extremity, unspecified laterality- Primary Moderate persistent asthma without complication ([facility]) Ventral hernia without obstruction or gangrene Unspecified ventral hernia without mention of obstruction or gangrene Gastroesophageal reflux disease, unspecified whether esophagitis present Morbid obesity with BMI of 50.0-59.9, adult ([facility]) Aura's thyroiditis ([facility] Chronic lymphocytic thyroiditis Anxiety and depression ([facility]) Gastroesophageal reflux disease, unspecified whether esophagitis present- Primary Aura's thyroiditis ([facility]/HCC) Chronic lymphocytic thyroiditis Moderate persistent asthma without complication ([facility]) Morbid obesity with BMI of 50.0-59.9, adult ([facility]) Arthritis of knee, right Aura's thyroiditis ([facility]/HCC)- Primary Chronic lymphocytic thyroiditis Morbid obesity with BMI of 50.0-59.9, adult ([facility]) Psoriasis ([facility]) Other psoriasis Anxiety and depression (CMS/[facility]) Gastroesophageal reflux disease, unspecified whether esophagitis present Moderate persistent asthma without complication (CMS/HCC) Arthritis of knee, right Anxiety and depression ([facility]/HCC)- Primary Mild persistent asthma without complication (CMS/[facility]) Gastroesophageal reflux disease, unspecified whether esophagitis present Morbid obesity with BMI of 50.0-59.9, adult ([facility]) Aura's thyroiditis ([facility]) Chronic lymphocytic thyroiditis Morbid obesity due to excess calories ([facility] Moderate persistent asthma without complication ([facility]) Encounter for screening mammogram for malignant neoplasm of breast Arthritis of knee, right Psoriasis ([facility])- Primary Other psoriasis Arthritis of knee, right- Primary Acute postoperative pain of right knee Status post right knee replacement Difficulty walking Difficulty in walking documented in this encounter [facility] HealthcareEvaluation note* Diagnosis Anxiety and depression ([facility])- Primary Elevated glucose Other abnormal glucose Hypomagnesemia Disorders of magnesium metabolism Gastroesophageal reflux disease, unspecified whether esophagitis present Morbid obesity with BMI of 50.0-59.9, adult ([facility]) Moderate persistent asthma without complication ([facility]) Chronic pain of right knee Anxiety and depression ([facility])- Primary Abnormal TSH Chronic pain of right knee Non-recurrent acute suppurative otitis media of left ear without spontaneous rupture of tympanic membrane Aura's thyroiditis ([facility])- Primary Chronic lymphocytic thyroiditis Anxiety and depression ([facility]) Morbid obesity with BMI of 50.0-59.9, adult ([facility]) Arthritis of knee, right Cellulitis of lower extremity, unspecified laterality- Primary Moderate persistent asthma without complication ([facility]) Ventral hernia without obstruction or gangrene Unspecified ventral hernia without mention of obstruction or gangrene Gastroesophageal reflux disease, unspecified whether esophagitis present Morbid obesity with BMI of 50.0-59.9, adult ([facility] Aura's thyroiditis ([facility] Chronic lymphocytic thyroiditis Anxiety and depression ([facility]) Gastroesophageal reflux disease, unspecified whether esophagitis present- Primary Aura's thyroiditis ([facility]/HCC) Chronic lymphocytic thyroiditis Moderate persistent asthma without complication ([facility]) Morbid obesity with BMI of 50.0-59.9, adult ([facility]) Arthritis of knee, right Aura's thyroiditis ([facility])- Primary Chronic lymphocytic thyroiditis Morbid obesity with BMI of 50.0-59.9, adult ([facility]) Psoriasis ([facility]) Other psoriasis Anxiety and depression ([facility]) Gastroesophageal reflux disease, unspecified whether esophagitis present Moderate persistent asthma without complication ([facility]) Arthritis of knee, right Anxiety and depression ([facility])- Primary Mild persistent asthma without complication ([facility]) Gastroesophageal reflux disease, unspecified whether esophagitis present Morbid obesity with BMI of 50.0-59.9, adult ([facility]) Aura's thyroiditis ([facility] Chronic lymphocytic thyroiditis Morbid obesity due to excess calories ([facility] Moderate persistent asthma without complication ([facility]) Encounter for screening mammogram for malignant neoplasm of breast Arthritis of knee, right Psoriasis ([facility])- Primary Other psoriasis Arthritis of knee, right- Primary Acute postoperative pain of right knee Status post right knee replacement Difficulty walking Difficulty in walking documented in this encounter [facility] HealthcareEvaluation note* Diagnosis Anxiety and depression ([facility])- Primary Elevated glucose Other abnormal glucose Hypomagnesemia Disorders of magnesium metabolism Gastroesophageal reflux disease, unspecified whether esophagitis present Morbid obesity with BMI of 50.0-59.9, adult ([facility]) Moderate persistent asthma without complication ([facility] Chronic pain of right knee Anxiety and depression ([facility])- Primary Abnormal TSH Chronic pain of right knee Non-recurrent acute suppurative otitis media of left ear without spontaneous rupture of tympanic membrane Aura's thyroiditis ([facility])- Primary Chronic lymphocytic thyroiditis Anxiety and depression ([facility]) Morbid obesity with BMI of 50.0-59.9, adult ([facility]) Arthritis of knee, right Cellulitis of lower extremity, unspecified laterality- Primary Moderate persistent asthma without complication ([facility]) Ventral hernia without obstruction or gangrene Unspecified ventral hernia without mention of obstruction or gangrene Gastroesophageal reflux disease, unspecified whether esophagitis present Morbid obesity with BMI of 50.0-59.9, adult ([facility]/HCC) Aura's thyroiditis ([facility]/HCC) Chronic lymphocytic thyroiditis Anxiety and depression ([facility]) Gastroesophageal reflux disease, unspecified whether esophagitis present- Primary Aura's thyroiditis ([facility]/HCC) Chronic lymphocytic thyroiditis Moderate persistent asthma without complication ([facility]) Morbid obesity with BMI of 50.0-59.9, adult ([facility]) Arthritis of knee, right Aura's thyroiditis ([facility])- Primary Chronic lymphocytic thyroiditis Morbid obesity with BMI of 50.0-59.9, adult ([facility]) Psoriasis ([facility] Other psoriasis Anxiety and depression ([facility]) Gastroesophageal reflux disease, unspecified whether esophagitis present Moderate persistent asthma without complication ([facility]) Arthritis of knee, right Anxiety and depression ([facility]/HCC)- Primary Mild persistent asthma without complication ([facility]) Gastroesophageal reflux disease, unspecified whether esophagitis present Morbid obesity with BMI of 50.0-59.9, adult ([facility]) Aura's thyroiditis ([facility] Chronic lymphocytic thyroiditis Morbid obesity due to excess calories ([facility] Moderate persistent asthma without complication ([facility]) Encounter for screening mammogram for malignant neoplasm of breast Arthritis of knee, right Psoriasis ([facility])- Primary Other psoriasis Aftercare following right knee joint replacement surgery- Primary documented in this encounter [facility]Evaluation note* Diagnosis Anxiety and depression ([facility])- Primary Elevated glucose Other abnormal glucose Hypomagnesemia Disorders of magnesium metabolism Gastroesophageal reflux disease, unspecified whether esophagitis present Morbid obesity with BMI of 50.0-59.9, adult ([facility]) Moderate persistent asthma without complication ([facility]) Chronic pain of right knee Anxiety and depression ([facility])- Primary Abnormal TSH Chronic pain of right knee Non-recurrent acute suppurative otitis media of left ear without spontaneous rupture of tympanic membrane Aura's thyroiditis ([facility])- Primary Chronic lymphocytic thyroiditis Anxiety and depression ([facility]) Morbid obesity with BMI of 50.0-59.9, adult ([facility]) Arthritis of knee, right Cellulitis of lower extremity, unspecified laterality- Primary Moderate persistent asthma without complication ([facility]) Ventral hernia without obstruction or gangrene Unspecified ventral hernia without mention of obstruction or gangrene Gastroesophageal reflux disease, unspecified whether esophagitis present Morbid obesity with BMI of 50.0-59.9, adult ([facility]) Aura's thyroiditis ([facility] Chronic lymphocytic thyroiditis Anxiety and depression ([facility]) Gastroesophageal reflux disease, unspecified whether esophagitis present- Primary Aura's thyroiditis ([facility]/HCC) Chronic lymphocytic thyroiditis Moderate persistent asthma without complication ([facility]) Morbid obesity with BMI of 50.0-59.9, adult ([facility]) Arthritis of knee, right Aura's thyroiditis ([facility])- Primary Chronic lymphocytic thyroiditis Morbid obesity with BMI of 50.0-59.9, adult ([facility]) Psoriasis ([facility]) Other psoriasis Anxiety and depression ([facility]) Gastroesophageal reflux disease, unspecified whether esophagitis present Moderate persistent asthma without complication ([facility]) Arthritis of knee, right Anxiety and depression ([facility])- Primary Mild persistent asthma without complication ([facility]) Gastroesophageal reflux disease, unspecified whether esophagitis present Morbid obesity with BMI of 50.0-59.9, adult ([facility]) Aura's thyroiditis ([facility]) Chronic lymphocytic thyroiditis Morbid obesity due to excess calories ([facility] Moderate persistent asthma without complication ([facility]) Encounter for screening mammogram for malignant neoplasm of breast Arthritis of knee, right Psoriasis ([facility])- Primary Other psoriasis Arthritis of knee, right- Primary Acute postoperative pain of right knee Status post right knee replacement documented in this encounter [facility] HealthcareEvaluation note* Diagnosis Anxiety and depression ([facility])- Primary Elevated glucose Other abnormal glucose Hypomagnesemia Disorders of magnesium metabolism Gastroesophageal reflux disease, unspecified whether esophagitis present Morbid obesity with BMI of 50.0-59.9, adult ([facility]) Moderate persistent asthma without complication ([facility]) Chronic pain of right knee Anxiety and depression ([facility])- Primary Abnormal TSH Chronic pain of right knee Non-recurrent acute suppurative otitis media of left ear without spontaneous rupture of tympanic membrane Aura's thyroiditis ([facility])- Primary Chronic lymphocytic thyroiditis Anxiety and depression ([facility]) Morbid obesity with BMI of 50.0-59.9, adult ([facility]) Arthritis of knee, right Cellulitis of lower extremity, unspecified laterality- Primary Moderate persistent asthma without complication ([facility]) Ventral hernia without obstruction or gangrene Unspecified ventral hernia without mention of obstruction or gangrene Gastroesophageal reflux disease, unspecified whether esophagitis present Morbid obesity with BMI of 50.0-59.9, adult ([facility]) Aura's thyroiditis ([facility] Chronic lymphocytic thyroiditis Anxiety and depression ([facility]) Gastroesophageal reflux disease, unspecified whether esophagitis present- Primary Aura's thyroiditis ([facility] Chronic lymphocytic thyroiditis Moderate persistent asthma without complication ([facility]) Morbid obesity with BMI of 50.0-59.9, adult ([facility]) Arthritis of knee, right Aura's thyroiditis ([facility])- Primary Chronic lymphocytic thyroiditis Morbid obesity with BMI of 50.0-59.9, adult ([facility]) Psoriasis ([facility]) Other psoriasis Anxiety and depression ([facility]) Gastroesophageal reflux disease, unspecified whether esophagitis present Moderate persistent asthma without complication ([facility]) Arthritis of knee, right Anxiety and depression ([facility])- Primary Mild persistent asthma without complication ([facility]) Gastroesophageal reflux disease, unspecified whether esophagitis present Morbid obesity with BMI of 50.0-59.9, adult ([facility]) Aura's thyroiditis ([facility] Chronic lymphocytic thyroiditis Morbid obesity due to excess calories ([facility] Moderate persistent asthma without complication ([facility]) Encounter for screening mammogram for malignant neoplasm of breast Arthritis of knee, right Psoriasis ([facility])- Primary Other psoriasis Arthritis of knee, right- Primary Acute postoperative pain of right knee Status post right knee replacement Difficulty walking Difficulty in walking documented in this encounter [facility]* Diagnosis Anxiety and depression ([facility])- Primary Elevated glucose Other abnormal glucose Hypomagnesemia Disorders of magnesium metabolism Gastroesophageal reflux disease, unspecified whether esophagitis present Morbid obesity with BMI of 50.0-59.9, adult ([facility]) Moderate persistent asthma without complication ([facility] Chronic pain of right knee Anxiety and depression ([facility])- Primary Abnormal TSH Chronic pain of right knee Non-recurrent acute suppurative otitis media of left ear without spontaneous rupture of tympanic membrane Aura's thyroiditis ([facility])- Primary Chronic lymphocytic thyroiditis Anxiety and depression ([facility]) Morbid obesity with BMI of 50.0-59.9, adult ([facility]) Arthritis of knee, right Cellulitis of lower extremity, unspecified laterality- Primary Moderate persistent asthma without complication ([facility]) Ventral hernia without obstruction or gangrene Unspecified ventral hernia without mention of obstruction or gangrene Gastroesophageal reflux disease, unspecified whether esophagitis present Morbid obesity with BMI of 50.0-59.9, adult ([facility]) Aura's thyroiditis ([facility]/HCC) Chronic lymphocytic thyroiditis Anxiety and depression ([facility]) Gastroesophageal reflux disease, unspecified whether esophagitis present- Primary Aura's thyroiditis ([facility]/HCC) Chronic lymphocytic thyroiditis Moderate persistent asthma without complication ([facility]) Morbid obesity with BMI of 50.0-59.9, adult ([facility]) Arthritis of knee, right Aura's thyroiditis ([facility])- Primary Chronic lymphocytic thyroiditis Morbid obesity with BMI of 50.0-59.9, adult ([facility]) Psoriasis ([facility]) Other psoriasis Anxiety and depression ([facility]) Gastroesophageal reflux disease, unspecified whether esophagitis present Moderate persistent asthma without complication ([facility]) Arthritis of knee, right Anxiety and depression ([facility])- Primary Mild persistent asthma without complication ([facility]) Gastroesophageal reflux disease, unspecified whether esophagitis present Morbid obesity with BMI of 50.0-59.9, adult ([facility]) Aura's thyroiditis ([facility] Chronic lymphocytic thyroiditis Morbid obesity due to excess calories ([facility] Moderate persistent asthma without complication ([facility]) Encounter for screening mammogram for malignant neoplasm of breast Arthritis of knee, right Psoriasis ([facility])- Primary Other psoriasis Arthritis of knee, right- Primary Acute postoperative pain of right knee Status post right knee replacement Difficulty walking Difficulty in walking documented in this encounter [facility] HealthcareEvaluation note* Diagnosis Anxiety and depression ([facility])- Primary Elevated glucose Other abnormal glucose Hypomagnesemia Disorders of magnesium metabolism Gastroesophageal reflux disease, unspecified whether esophagitis present Morbid obesity with BMI of 50.0-59.9, adult ([facility]) Moderate persistent asthma without complication ([facility] Chronic pain of right knee Anxiety and depression ([facility])- Primary Abnormal TSH Chronic pain of right knee Non-recurrent acute suppurative otitis media of left ear without spontaneous rupture of tympanic membrane Aura's thyroiditis ([facility])- Primary Chronic lymphocytic thyroiditis Anxiety and depression ([facility]/HCC) Morbid obesity with BMI of 50.0-59.9, adult ([facility]) Arthritis of knee, right Cellulitis of lower extremity, unspecified laterality- Primary Moderate persistent asthma without complication (CMS/HCC) Ventral hernia without obstruction or gangrene Unspecified ventral hernia without mention of obstruction or gangrene Gastroesophageal reflux disease, unspecified whether esophagitis present Morbid obesity with BMI of 50.0-59.9, adult ([facility]) Aura's thyroiditis ([facility]) Chronic lymphocytic thyroiditis Anxiety and depression ([facility]) Gastroesophageal reflux disease, unspecified whether esophagitis present- Primary Aura's thyroiditis (CMS/HCC) Chronic lymphocytic thyroiditis Moderate persistent asthma without complication (CMS/[facility]) Morbid obesity with BMI of 50.0-59.9, adult ([facility]) Arthritis of knee, right Aura's thyroiditis ([facility])- Primary Chronic lymphocytic thyroiditis Morbid obesity with BMI of 50.0-59.9, adult ([facility]) Psoriasis ([facility]) Other psoriasis Anxiety and depression ([facility]) Gastroesophageal reflux disease, unspecified whether esophagitis present Moderate persistent asthma without complication (CMS/HCC) Arthritis of knee, right Anxiety and depression ([facility]/HCC)- Primary Mild persistent asthma without complication ([facility]) Gastroesophageal reflux disease, unspecified whether esophagitis present Morbid obesity with BMI of 50.0-59.9, adult ([facility]) Aura's thyroiditis ([facility] Chronic lymphocytic thyroiditis Morbid obesity due to excess calories ([facility] Moderate persistent asthma without complication ([facility]) Encounter for screening mammogram for malignant neoplasm of breast Arthritis of knee, right Psoriasis ([facility])- Primary Other psoriasis Moderate persistent asthma, uncomplicated ([facility]) Aura's thyroiditis ([facility] Chronic lymphocytic thyroiditis Anxiety and depression ([facility]/HCC) [facility] Diagnosis Anxiety and depression ([facility]/HCC)- Primary Elevated glucose Other abnormal glucose Hypomagnesemia Disorders of magnesium metabolism Gastroesophageal reflux disease, unspecified whether esophagitis present Morbid obesity with BMI of 50.0-59.9, adult ([facility]) Moderate persistent asthma without complication (CMS/HCC) Chronic pain of right knee Anxiety and depression ([facility])- Primary Abnormal TSH Chronic pain of right knee Non-recurrent acute suppurative otitis media of left ear without spontaneous rupture of tympanic membrane Aura's thyroiditis ([facility]/HCC)- Primary Chronic lymphocytic thyroiditis Anxiety and depression ([facility]) Morbid obesity with BMI of 50.0-59.9, adult ([facility]) Arthritis of knee, right Cellulitis of lower extremity, unspecified laterality- Primary Moderate persistent asthma without complication ([facility]) Ventral hernia without obstruction or gangrene Unspecified ventral hernia without mention of obstruction or gangrene Gastroesophageal reflux disease, unspecified whether esophagitis present Morbid obesity with BMI of 50.0-59.9, adult ([facility]) Aura's thyroiditis ([facility] Chronic lymphocytic thyroiditis Anxiety and depression ([facility]) Gastroesophageal reflux disease, unspecified whether esophagitis present- Primary Aura's thyroiditis ([facility]/HCC) Chronic lymphocytic thyroiditis Moderate persistent asthma without complication ([facility]) Morbid obesity with BMI of 50.0-59.9, adult ([facility]) Arthritis of knee, right Aura's thyroiditis ([facility])- Primary Chronic lymphocytic thyroiditis Morbid obesity with BMI of 50.0-59.9, adult ([facility]) Psoriasis ([facility]) Other psoriasis Anxiety and depression ([facility]) Gastroesophageal reflux disease, unspecified whether esophagitis present Moderate persistent asthma without complication ([facility]) Arthritis of knee, right Anxiety and depression ([facility]/HCC)- Primary Mild persistent asthma without complication ([facility]) Gastroesophageal reflux disease, unspecified whether esophagitis present Morbid obesity with BMI of 50.0-59.9, adult ([facility]) Aura's thyroiditis ([facility] Chronic lymphocytic thyroiditis Morbid obesity due to excess calories ([facility] Moderate persistent asthma without complication ([facility]) Encounter for screening mammogram for malignant neoplasm of breast Arthritis of knee, right Psoriasis ([facility])- Primary Other psoriasis Arthritis of knee, right- Primary Acute postoperative pain of right knee Status post right knee replacement documented in this encounter [facility]* Diagnosis Anxiety and depression ([facility]/HCC)- Primary Elevated glucose Other abnormal glucose Hypomagnesemia Disorders of magnesium metabolism Gastroesophageal reflux disease, unspecified whether esophagitis present Morbid obesity with BMI of 50.0-59.9, adult ([facility]) Moderate persistent asthma without complication ([facility]) Chronic pain of right knee Anxiety and depression ([facility])- Primary Abnormal TSH Chronic pain of right knee Non-recurrent acute suppurative otitis media of left ear without spontaneous rupture of tympanic membrane Aura's thyroiditis ([facility])- Primary Chronic lymphocytic thyroiditis Anxiety and depression ([facility]) Morbid obesity with BMI of 50.0-59.9, adult ([facility]) Arthritis of knee, right Cellulitis of lower extremity, unspecified laterality- Primary Moderate persistent asthma without complication ([facility]) Ventral hernia without obstruction or gangrene Unspecified ventral hernia without mention of obstruction or gangrene Gastroesophageal reflux disease, unspecified whether esophagitis present Morbid obesity with BMI of 50.0-59.9, adult ([facility]) Aura's thyroiditis ([facility] Chronic lymphocytic thyroiditis Anxiety and depression ([facility]) Gastroesophageal reflux disease, unspecified whether esophagitis present- Primary Aura's thyroiditis ([facility] Chronic lymphocytic thyroiditis Moderate persistent asthma without complication ([facility]) Morbid obesity with BMI of 50.0-59.9, adult ([facility]) Arthritis of knee, right Aura's thyroiditis ([facility])- Primary Chronic lymphocytic thyroiditis Morbid obesity with BMI of 50.0-59.9, adult ([facility]) Psoriasis ([facility]) Other psoriasis Anxiety and depression ([facility]) Gastroesophageal reflux disease, unspecified whether esophagitis present Moderate persistent asthma without complication ([facility]) Arthritis of knee, right Anxiety and depression ([facility])- Primary Mild persistent asthma without complication ([facility]) Gastroesophageal reflux disease, unspecified whether esophagitis present Morbid obesity with BMI of 50.0-59.9, adult ([facility]) Aura's thyroiditis ([facility] Chronic lymphocytic thyroiditis Morbid obesity due to excess calories ([facility] Moderate persistent asthma without complication ([facility]) Encounter for screening mammogram for malignant neoplasm of breast Arthritis of knee, right Psoriasis ([facility])- Primary Other psoriasis Acute postoperative pain of right knee- Primary Status post right knee replacement Difficulty walking Difficulty in walking Aftercare following right knee joint replacement surgery documented in this encounter [facility]* Diagnosis Anxiety and depression ([facility])- Primary Elevated glucose Other abnormal glucose Hypomagnesemia Disorders of magnesium metabolism Gastroesophageal reflux disease, unspecified whether esophagitis present Morbid obesity with BMI of 50.0-59.9, adult ([facility]) Moderate persistent asthma without complication ([facility]) Chronic pain of right knee Anxiety and depression ([facility])- Primary Abnormal TSH Chronic pain of right knee Non-recurrent acute suppurative otitis media of left ear without spontaneous rupture of tympanic membrane Aura's thyroiditis ([facility]/HCC)- Primary Chronic lymphocytic thyroiditis Anxiety and depression ([facility]) Morbid obesity with BMI of 50.0-59.9, adult ([facility]) Arthritis of knee, right Cellulitis of lower extremity, unspecified laterality- Primary Moderate persistent asthma without complication ([facility]) Ventral hernia without obstruction or gangrene Unspecified ventral hernia without mention of obstruction or gangrene Gastroesophageal reflux disease, unspecified whether esophagitis present Morbid obesity with BMI of 50.0-59.9, adult ([facility]) Aura's thyroiditis ([facility] Chronic lymphocytic thyroiditis Anxiety and depression ([facility]) Gastroesophageal reflux disease, unspecified whether esophagitis present- Primary Aura's thyroiditis ([facility] Chronic lymphocytic thyroiditis Moderate persistent asthma without complication ([facility]) Morbid obesity with BMI of 50.0-59.9, adult ([facility]) Arthritis of knee, right Aura's thyroiditis ([facility]/HCC)- Primary Chronic lymphocytic thyroiditis Morbid obesity with BMI of 50.0-59.9, adult ([facility]) Psoriasis ([facility]) Other psoriasis Anxiety and depression ([facility]) Gastroesophageal reflux disease, unspecified whether esophagitis present Moderate persistent asthma without complication ([facility]) Arthritis of knee, right Anxiety and depression ([facility]/HCC)- Primary Mild persistent asthma without complication ([facility]) Gastroesophageal reflux disease, unspecified whether esophagitis present Morbid obesity with BMI of 50.0-59.9, adult ([facility]) Aura's thyroiditis ([facility] Chronic lymphocytic thyroiditis Morbid obesity due to excess calories ([facility] Moderate persistent asthma without complication ([facility]) Encounter for screening mammogram for malignant neoplasm of breast Arthritis of knee, right Psoriasis ([facility])- Primary Other psoriasis Acute postoperative pain of right knee- Primary Status post right knee replacement Difficulty walking Difficulty in walking Aftercare following right knee joint replacement surgery Arthritis of knee, right documented in this [facility]* Diagnosis Anxiety and depression ([facility]/HCC)- Primary Elevated glucose Other abnormal glucose Hypomagnesemia Disorders of magnesium metabolism Gastroesophageal reflux disease, unspecified whether esophagitis present Morbid obesity with BMI of 50.0-59.9, adult ([facility]) Moderate persistent asthma without complication (CMS/HCC) Chronic pain of right knee Anxiety and depression (CMS/HCC)- Primary Abnormal TSH Chronic pain of right knee Non-recurrent acute suppurative otitis media of left ear without spontaneous rupture of tympanic membrane Aura's thyroiditis (CMS/HCC)- Primary Chronic lymphocytic thyroiditis Anxiety and depression (CMS/[facility]) Morbid obesity with BMI of 50.0-59.9, adult ([facility]) Arthritis of knee, right Cellulitis of lower extremity, unspecified laterality- Primary Moderate persistent asthma without complication (CMS/HCC) Ventral hernia without obstruction or gangrene Unspecified ventral hernia without mention of obstruction or gangrene Gastroesophageal reflux disease, unspecified whether esophagitis present Morbid obesity with BMI of 50.0-59.9, adult ([facility]) Aura's thyroiditis ([facility] Chronic lymphocytic thyroiditis Anxiety and depression ([facility]) Gastroesophageal reflux disease, unspecified whether esophagitis present- Primary Aura's thyroiditis (CMS/HCC) Chronic lymphocytic thyroiditis Moderate persistent asthma without complication (CMS/HCC) Morbid obesity with BMI of 50.0-59.9, adult ([facility]) Arthritis of knee, right Aura's thyroiditis ([facility]/HCC)- Primary Chronic lymphocytic thyroiditis Morbid obesity with BMI of 50.0-59.9, adult ([facility]) Psoriasis ([facility]) Other psoriasis Anxiety and depression ([facility]) Gastroesophageal reflux disease, unspecified whether esophagitis present Moderate persistent asthma without complication (CMS/HCC) Arthritis of knee, right Anxiety and depression ([facility]/HCC)- Primary Mild persistent asthma without complication (CMS/HCC) Gastroesophageal reflux disease, unspecified whether esophagitis present Morbid obesity with BMI of 50.0-59.9, adult ([facility]) Aura's thyroiditis ([facility] Chronic lymphocytic thyroiditis Morbid obesity due to excess calories (CMS/[facility]) Moderate persistent asthma without complication ([facility]) Encounter for screening mammogram for malignant neoplasm of breast Arthritis of knee, right Psoriasis (CMS/[facility])- Primary Other psoriasis Acute postoperative pain of right knee- Primary Status post right knee replacement Difficulty walking Difficulty in walking documented in this encounter [facility]* Diagnosis Anxiety and depression ([facility]/HCC)- Primary Elevated glucose Other abnormal glucose Hypomagnesemia Disorders of magnesium metabolism Gastroesophageal reflux disease, unspecified whether esophagitis present Morbid obesity with BMI of 50.0-59.9, adult ([facility]) Moderate persistent asthma without complication (CMS/HCC) Chronic pain of right knee Anxiety and depression (CMS/HCC)- Primary Abnormal TSH Chronic pain of right knee Non-recurrent acute suppurative otitis media of left ear without spontaneous rupture of tympanic membrane Aura's thyroiditis (CMS/HCC)- Primary Chronic lymphocytic thyroiditis Anxiety and depression (CMS/[facility]) Morbid obesity with BMI of 50.0-59.9, adult ([facility]) Arthritis of knee, right Cellulitis of lower extremity, unspecified laterality- Primary Moderate persistent asthma without complication (CMS/[facility]) Ventral hernia without obstruction or gangrene Unspecified ventral hernia without mention of obstruction or gangrene Gastroesophageal reflux disease, unspecified whether esophagitis present Morbid obesity with BMI of 50.0-59.9, adult ([facility]) Aura's thyroiditis (CMS/HCC) Chronic lymphocytic thyroiditis Anxiety and depression ([facility]) Gastroesophageal reflux disease, unspecified whether esophagitis present- Primary Aura's thyroiditis (CMS/HCC) Chronic lymphocytic thyroiditis Moderate persistent asthma without complication (CMS/HCC) Morbid obesity with BMI of 50.0-59.9, adult ([facility]) Arthritis of knee, right Aura's thyroiditis ([facility]/HCC)- Primary Chronic lymphocytic thyroiditis Morbid obesity with BMI of 50.0-59.9, adult ([facility]) Psoriasis (CMS/HCC) Other psoriasis Anxiety and depression (CMS/[facility]) Gastroesophageal reflux disease, unspecified whether esophagitis present Moderate persistent asthma without complication (CMS/HCC) Arthritis of knee, right Anxiety and depression (CMS/HCC)- Primary Mild persistent asthma without complication (CMS/HCC) Gastroesophageal reflux disease, unspecified whether esophagitis present Morbid obesity with BMI of 50.0-59.9, adult ([facility]) Aura's thyroiditis (CMS/HCC) Chronic lymphocytic thyroiditis Morbid obesity due to excess calories (CMS/HCC) Moderate persistent asthma without complication (CMS/[facility]) Encounter for screening mammogram for malignant neoplasm of breast Arthritis of knee, right Psoriasis ([facility])- Primary Other psoriasis Acute postoperative pain of right knee- Primary Status post right knee replacement Aftercare following right knee joint replacement surgery Arthritis of knee, right Presence of right artificial knee joint Primary osteoarthritis of right knee documented in this encounter [facility]* Diagnosis Anxiety and depression ([facility])- Primary Elevated glucose Other abnormal glucose Hypomagnesemia Disorders of magnesium metabolism Gastroesophageal reflux disease, unspecified whether esophagitis present Morbid obesity with BMI of 50.0-59.9, adult ([facility]) Moderate persistent asthma without complication ([facility] Chronic pain of right knee Anxiety and depression ([facility])- Primary Abnormal TSH Chronic pain of right knee Non-recurrent acute suppurative otitis media of left ear without spontaneous rupture of tympanic membrane Aura's thyroiditis ([facility])- Primary Chronic lymphocytic thyroiditis Anxiety and depression ([facility]) Morbid obesity with BMI of 50.0-59.9, adult ([facility]) Arthritis of knee, right Cellulitis of lower extremity, unspecified laterality- Primary Moderate persistent asthma without complication ([facility]) Ventral hernia without obstruction or gangrene Unspecified ventral hernia without mention of obstruction or gangrene Gastroesophageal reflux disease, unspecified whether esophagitis present Morbid obesity with BMI of 50.0-59.9, adult ([facility]) Aura's thyroiditis ([facility] Chronic lymphocytic thyroiditis Anxiety and depression ([facility]) Gastroesophageal reflux disease, unspecified whether esophagitis present- Primary Aura's thyroiditis ([facility] Chronic lymphocytic thyroiditis Moderate persistent asthma without complication ([facility]) Morbid obesity with BMI of 50.0-59.9, adult ([facility]) Arthritis of knee, right Aura's thyroiditis ([facility])- Primary Chronic lymphocytic thyroiditis Morbid obesity with BMI of 50.0-59.9, adult ([facility]) Psoriasis ([facility]) Other psoriasis Anxiety and depression ([facility] [facility] Gastroesophageal reflux disease, unspecified whether esophagitis present Moderate persistent asthma without complication ([facility]) Arthritis of knee, right Anxiety and depression ([facility])- Primary Mild persistent asthma without complication ([facility]) Gastroesophageal reflux disease, unspecified whether esophagitis present Morbid obesity with BMI of 50.0-59.9, adult ([facility]) Aura's thyroiditis (CMS/HCC) Chronic lymphocytic thyroiditis Morbid obesity due to excess calories (CMS/HCC) Moderate persistent asthma without complication ([facility]) Encounter for screening mammogram for malignant neoplasm of breast Arthritis of knee, right Psoriasis (CMS/HCC)- Primary Other psoriasis Acute postoperative pain of right knee- Primary Status post right knee replacement Aftercare following right knee joint replacement surgery Arthritis of knee, right documented in this encounter [facility] HealthcareEvaluation note* Diagnosis Anxiety and depression (CMS/HCC)- Primary Elevated glucose Other abnormal glucose Hypomagnesemia Disorders of magnesium metabolism Gastroesophageal reflux disease, unspecified whether esophagitis present Morbid obesity with BMI of 50.0-59.9, adult ([facility]) Moderate persistent asthma without complication (CMS/[facility]) Chronic pain of right knee Anxiety and depression (CMS/[facility])- Primary Abnormal TSH Chronic pain of right knee Non-recurrent acute suppurative otitis media of left ear without spontaneous rupture of tympanic membrane Aura's thyroiditis ([facility])- Primary Chronic lymphocytic thyroiditis Anxiety and depression ([facility]) Morbid obesity with BMI of 50.0-59.9, adult ([facility]) Arthritis of knee, right Cellulitis of lower extremity, unspecified laterality- Primary Moderate persistent asthma without complication (CMS/[facility]) Ventral hernia without obstruction or gangrene Unspecified ventral hernia without mention of obstruction or gangrene Gastroesophageal reflux disease, unspecified whether esophagitis present Morbid obesity with BMI of 50.0-59.9, adult ([facility] Aura's thyroiditis ([facility] Chronic lymphocytic thyroiditis Anxiety and depression ([facility]) Gastroesophageal reflux disease, unspecified whether esophagitis present- Primary Aura's thyroiditis (CMS/HCC) Chronic lymphocytic thyroiditis Moderate persistent asthma without complication (CMS/[facility]) Morbid obesity with BMI of 50.0-59.9, adult ([facility]) Arthritis of knee, right Aura's thyroiditis ([facility]/HCC)- Primary Chronic lymphocytic thyroiditis Morbid obesity with BMI of 50.0-59.9, adult ([facility]) Psoriasis (CMS/[facility]) Other psoriasis Anxiety and depression (CMS/[facility]) Gastroesophageal reflux disease, unspecified whether esophagitis present Moderate persistent asthma without complication (CMS/HCC) Arthritis of knee, right Anxiety and depression ([facility]/HCC)- Primary Mild persistent asthma without complication (CMS/HCC) Gastroesophageal reflux disease, unspecified whether esophagitis present Morbid obesity with BMI of 50.0-59.9, adult ([facility]/HCC) Aura's thyroiditis (CMS/HCC) Chronic lymphocytic thyroiditis Morbid obesity due to excess calories (CMS/HCC) Moderate persistent asthma without complication (CMS/HCC) Encounter for screening mammogram for malignant neoplasm of breast Arthritis of knee, right Psoriasis (CMS/HCC)- Primary Other psoriasis Acute postoperative pain of right knee- Primary Status post right knee replacement Aftercare following right knee joint replacement surgery Arthritis of knee, right Presence of right artificial knee joint Primary osteoarthritis of right knee documented in this encounter [facility] HealthcareEvaluation note* Diagnosis Anxiety and depression (CMS/HCC)- Primary Elevated glucose Other abnormal glucose Hypomagnesemia Disorders of magnesium metabolism Gastroesophageal reflux disease, unspecified whether esophagitis present Morbid obesity with BMI of 50.0-59.9, adult ([facility]) Moderate persistent asthma without complication (CMS/HCC) Chronic pain of right knee Anxiety and depression (CMS/HCC)- Primary Abnormal TSH Chronic pain of right knee Non-recurrent acute suppurative otitis media of left ear without spontaneous rupture of tympanic membrane Aura's thyroiditis (CMS/HCC)- Primary Chronic lymphocytic thyroiditis Anxiety and depression (CMS/HCC) Morbid obesity with BMI of 50.0-59.9, adult ([facility]) Arthritis of knee, right Cellulitis of lower extremity, unspecified laterality- Primary Moderate persistent asthma without complication (CMS/HCC) Ventral hernia without obstruction or gangrene Unspecified ventral hernia without mention of obstruction or gangrene Gastroesophageal reflux disease, unspecified whether esophagitis present Morbid obesity with BMI of 50.0-59.9, adult ([facility]/HCC) Aura's thyroiditis (CMS/HCC) Chronic lymphocytic thyroiditis Anxiety and depression (CMS/[facility]) Gastroesophageal reflux disease, unspecified whether esophagitis present- Primary Aura's thyroiditis (CMS/HCC) Chronic lymphocytic thyroiditis Moderate persistent asthma without complication (CMS/HCC) Morbid obesity with BMI of 50.0-59.9, adult ([facility]) Arthritis of knee, right Aura's thyroiditis (CMS/HCC)- Primary Chronic lymphocytic thyroiditis Morbid obesity with BMI of 50.0-59.9, adult ([facility]) Psoriasis (CMS/HCC) Other psoriasis Anxiety and depression (CMS/HCC) Gastroesophageal reflux disease, unspecified whether esophagitis present Moderate persistent asthma without complication (CMS/HCC) Arthritis of knee, right Anxiety and depression (CMS/HCC)- Primary Mild persistent asthma without complication (CMS/HCC) Gastroesophageal reflux disease, unspecified whether esophagitis present Morbid obesity with BMI of 50.0-59.9, adult ([facility]) Aura's thyroiditis (CMS/HCC) Chronic lymphocytic thyroiditis Morbid obesity due to excess calories (CMS/HCC) Moderate persistent asthma without complication (CMS/HCC) Encounter for screening mammogram for malignant neoplasm of breast Arthritis of knee, right Psoriasis (CMS/HCC)- Primary Other psoriasis 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 Morbid (severe) obesity due to excess calories (CMS/[facility]) Body mass index (BMI) 45.0-49.9, adult ([facility]) Mild persistent asthma without complication (CMS/HCC) Gastroesophageal reflux disease, unspecified whether esophagitis present Anxiety and depression (CMS/HCC) Hypomagnesemia Disorders of magnesium metabolism Elevated glucose Other abnormal glucose Moderate persistent asthma without complication (CMS/HCC) Moderate persistent asthma, uncomplicated (CMS/[facility]) Other constipation documented in this encounter [facility]Evaluation note* Diagnosis Anxiety and depression (CMS/HCC)- Primary Elevated glucose Other abnormal glucose Hypomagnesemia Disorders of magnesium metabolism Gastroesophageal reflux disease, unspecified whether esophagitis present Morbid obesity with BMI of 50.0-59.9, adult ([facility]) Moderate persistent asthma without complication (CMS/HCC) Chronic pain of right knee Anxiety and depression (CMS/HCC)- Primary Abnormal TSH Chronic pain of right knee Non-recurrent acute suppurative otitis media of left ear without spontaneous rupture of tympanic membrane Aura's thyroiditis (CMS/HCC)- Primary Chronic lymphocytic thyroiditis Anxiety and depression (CMS/HCC) Morbid obesity with BMI of 50.0-59.9, adult ([facility]) Arthritis of knee, right Cellulitis of lower extremity, unspecified laterality- Primary Moderate persistent asthma without complication (CMS/HCC) Ventral hernia without obstruction or gangrene Unspecified ventral hernia without mention of obstruction or gangrene Gastroesophageal reflux disease, unspecified whether esophagitis present Morbid obesity with BMI of 50.0-59.9, adult ([facility]) Aura's thyroiditis (CMS/HCC) Chronic lymphocytic thyroiditis Anxiety and depression ([facility]) Gastroesophageal reflux disease, unspecified whether esophagitis present- Primary Aura's thyroiditis ([facility]/HCC) Chronic lymphocytic thyroiditis Moderate persistent asthma without complication (CMS/HCC) Morbid obesity with BMI of 50.0-59.9, adult ([facility]) Arthritis of knee, right Aura's thyroiditis ([facility]/HCC)- Primary Chronic lymphocytic thyroiditis Morbid obesity with BMI of 50.0-59.9, adult ([facility]) Psoriasis ([facility]) Other psoriasis Anxiety and depression (CMS/[facility]) Gastroesophageal reflux disease, unspecified whether esophagitis present Moderate persistent asthma without complication (CMS/HCC) Arthritis of knee, right Anxiety and depression ([facility]/HCC)- Primary Mild persistent asthma without complication ([facility]/HCC) Gastroesophageal reflux disease, unspecified whether esophagitis present Morbid obesity with BMI of 50.0-59.9, adult ([facility]) Aura's thyroiditis ([facility]) Chronic lymphocytic thyroiditis Morbid obesity due to excess calories ([facility]) Moderate persistent asthma without complication ([facility]) Encounter for screening mammogram for malignant neoplasm of breast Arthritis of knee, right Psoriasis ([facility])- Primary Other psoriasis 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[facility])- Primary Morbid (severe) obesity due to excess calories ([facility]) Body mass index (BMI) 45.0-49.9, adult ([facility]) Mild persistent asthma without complication ([facility]) Gastroesophageal reflux disease, unspecified whether esophagitis present Anxiety and depression ([facility]) Hypomagnesemia Disorders of magnesium metabolism Elevated glucose Other abnormal glucose Moderate persistent asthma without complication ([facility]/HCC) Moderate persistent asthma, uncomplicated ([facility]) Other constipation Acute postoperative pain of right knee- Primary Status post right knee replacement Aftercare following right knee joint replacement surgery Arthritis of knee, right Presence of right artificial knee joint documented in this encounter [facility]* Diagnosis Anxiety and depression ([facility]/HCC)- Primary Elevated glucose Other abnormal glucose Hypomagnesemia Disorders of magnesium metabolism Gastroesophageal reflux disease, unspecified whether esophagitis present Morbid obesity with BMI of 50.0-59.9, adult ([facility]) Moderate persistent asthma without complication (CMS/HCC) Chronic pain of right knee Anxiety and depression ([facility]/HCC)- Primary Abnormal TSH Chronic pain of right knee Non-recurrent acute suppurative otitis media of left ear without spontaneous rupture of tympanic membrane Aura's thyroiditis ([facility]/HCC)- Primary Chronic lymphocytic thyroiditis Anxiety and depression ([facility]) Morbid obesity with BMI of 50.0-59.9, adult ([facility]) Arthritis of knee, right Cellulitis of lower extremity, unspecified laterality- Primary Moderate persistent asthma without complication ([facility]) Ventral hernia without obstruction or gangrene Unspecified ventral hernia without mention of obstruction or gangrene Gastroesophageal reflux disease, unspecified whether esophagitis present Morbid obesity with BMI of 50.0-59.9, adult ([facility] Aura's thyroiditis ([facility] Chronic lymphocytic thyroiditis Anxiety and depression ([facility]) Gastroesophageal reflux disease, unspecified whether esophagitis present- Primary Aura's thyroiditis ([facility]) Chronic lymphocytic thyroiditis Moderate persistent asthma without complication ([facility]) Morbid obesity with BMI of 50.0-59.9, adult ([facility]) Arthritis of knee, right Aura's thyroiditis ([facility])- Primary Chronic lymphocytic thyroiditis Morbid obesity with BMI of 50.0-59.9, adult ([facility]) Psoriasis ([facility] Other psoriasis Anxiety and depression ([facility]) Gastroesophageal reflux disease, unspecified whether esophagitis present Moderate persistent asthma without complication ([facility]) Arthritis of knee, right Anxiety and depression ([facility])- Primary Mild persistent asthma without complication ([facility]) Gastroesophageal reflux disease, unspecified whether esophagitis present Morbid obesity with BMI of 50.0-59.9, adult ([facility]) Aura's thyroiditis ([facility] Chronic lymphocytic thyroiditis Morbid obesity due to excess calories ([facility]) Moderate persistent asthma without complication ([facility]) Encounter for screening mammogram for malignant neoplasm of breast Arthritis of knee, right Psoriasis ([facility])- Primary Other psoriasis 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[facility])- Primary Morbid (severe) obesity due to excess calories ([facility]) Body mass index (BMI) 45.0-49.9, adult ([facility]) Mild persistent asthma without complication ([facility]) Gastroesophageal reflux disease, unspecified whether esophagitis present Anxiety and depression ([facility]) Hypomagnesemia Disorders of magnesium metabolism Elevated glucose Other abnormal glucose Moderate persistent asthma without complication ([facility]) Moderate persistent asthma, uncomplicated (CMS/[facility]) Other constipation Hypothyroidism, unspecified type (CMS/[facility])- Primary Hypomagnesemia Disorders of magnesium metabolism documented in this encounter [facility]* Diagnosis Anxiety and depression ([facility]/HCC)- Primary Elevated glucose Other abnormal glucose Hypomagnesemia Disorders of magnesium metabolism Gastroesophageal reflux disease, unspecified whether esophagitis present Morbid obesity with BMI of 50.0-59.9, adult ([facility]) Moderate persistent asthma without complication (CMS/HCC) Chronic pain of right knee Anxiety and depression (CMS/HCC)- Primary Abnormal TSH Chronic pain of right knee Non-recurrent acute suppurative otitis media of left ear without spontaneous rupture of tympanic membrane Aura's thyroiditis ([facility])- Primary Chronic lymphocytic thyroiditis Anxiety and depression ([facility]) Morbid obesity with BMI of 50.0-59.9, adult ([facility]) Arthritis of knee, right Cellulitis of lower extremity, unspecified laterality- Primary Moderate persistent asthma without complication ([facility]) Ventral hernia without obstruction or gangrene Unspecified ventral hernia without mention of obstruction or gangrene Gastroesophageal reflux disease, unspecified whether esophagitis present Morbid obesity with BMI of 50.0-59.9, adult ([facility]) Aura's thyroiditis ([facility] Chronic lymphocytic thyroiditis Anxiety and depression ([facility]) Gastroesophageal reflux disease, unspecified whether esophagitis present- Primary Aura's thyroiditis ([facility] Chronic lymphocytic thyroiditis Moderate persistent asthma without complication (CMS/[facility]) Morbid obesity with BMI of 50.0-59.9, adult ([facility]) Arthritis of knee, right Aura's thyroiditis ([facility])- Primary Chronic lymphocytic thyroiditis Morbid obesity with BMI of 50.0-59.9, adult ([facility]) Psoriasis ([facility] Other psoriasis Anxiety and depression ([facility]) Gastroesophageal reflux disease, unspecified whether esophagitis present Moderate persistent asthma without complication ([facility]) Arthritis of knee, right Anxiety and depression ([facility]/HCC)- Primary Mild persistent asthma without complication ([facility]) Gastroesophageal reflux disease, unspecified whether esophagitis present Morbid obesity with BMI of 50.0-59.9, adult ([facility]) Aura's thyroiditis ([facility]) Chronic lymphocytic thyroiditis Morbid obesity due to excess calories (CMS/HCC) Moderate persistent asthma without complication (CMS/HCC) Encounter for screening mammogram for malignant neoplasm of breast Arthritis of knee, right Psoriasis (CMS/HCC)- Primary Other psoriasis 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 Morbid (severe) obesity due to excess calories (CMS/HCC) Body mass index (BMI) 45.0-49.9, adult (CMS/HCC) Mild persistent asthma without complication (CMS/HCC) Gastroesophageal reflux disease, unspecified whether esophagitis present Anxiety and depression (CMS/HCC) Hypomagnesemia Disorders of magnesium metabolism Elevated glucose Other abnormal glucose Moderate persistent asthma without complication (CMS/HCC) Moderate persistent asthma, uncomplicated (CMS/HCC) Other constipation Hypothyroidism, unspecified type (CMS/HCC)- Primary Hypomagnesemia Disorders of magnesium metabolism Acute postoperative pain of right knee- Primary Status post right knee replacement Aftercare following right knee joint replacement surgery Arthritis of knee, right documented in this encounter [facility]* Diagnosis Anxiety and depression (CMS/HCC)- Primary Elevated glucose Other abnormal glucose Hypomagnesemia Disorders of magnesium metabolism Gastroesophageal reflux disease, unspecified whether esophagitis present Morbid obesity with BMI of 50.0-59.9, adult (CMS/[facility]) Moderate persistent asthma without complication (CMS/HCC) Chronic pain of right knee Anxiety and depression (CMS/HCC)- Primary Abnormal TSH Chronic pain of right knee Non-recurrent acute suppurative otitis media of left ear without spontaneous rupture of tympanic membrane Aura's thyroiditis (CMS/HCC)- Primary Chronic lymphocytic thyroiditis Anxiety and depression (CMS/HCC) Morbid obesity with BMI of 50.0-59.9, adult ([facility]) Arthritis of knee, right Cellulitis of [...] with BMI of 50.0-59.9, adult (CMS/HCC) Psoriasis Other psoriasis Anxiety and depression (CMS/HCC) Gastroesophageal [...] neoplasm of breast Arthritis of knee, right Psoriasis- Primary Other psoriasis 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 Morbid (severe) obesity due to excess calories (CMS/HCC) Body mass index (BMI) 45.0-49.9, adult (CMS/HCC) Mild persistent asthma without complication (CMS/HCC) Gastroesophageal reflux disease, unspecified whether esophagitis present Anxiety and depression (CMS/HCC) Hypomagnesemia Disorders of magnesium metabolism Elevated glucose Other abnormal glucose Moderate persistent asthma without complication (CMS/HCC) Moderate persistent asthma, uncomplicated (CMS/HCC) Other constipation Hypothyroidism, unspecified type (CMS/HCC)- Primary Hypomagnesemia Disorders of magnesium metabolism Well woman exam with routine gynecological exam Routine gynecological examination Encounter for screening mammogram for malignant neoplasm of breast documented in this encounter [facility] HealthcareEvaluation note* Diagnosis Anxiety and depression [...] Morbid obesity with BMI of 50.0-59.9, adult ([facility]/HCC) Arthritis of knee, right Cellulitis of lower extremity, unspecified laterality- Primary Moderate persistent asthma without complication (CMS/HCC) Ventral hernia without obstruction or gangrene Unspecified ventral hernia without mention of obstruction or gangrene Gastroesophageal reflux disease, unspecified whether esophagitis present Morbid obesity with BMI of 50.0-59.9, adult ([facility]) Aura's thyroiditis (CMS/HCC) Chronic lymphocytic thyroiditis Anxiety and depression (CMS/HCC) Gastroesophageal reflux disease, unspecified whether esophagitis present- Primary Aura's thyroiditis (CMS/HCC) Chronic lymphocytic thyroiditis Moderate persistent asthma without complication (CMS/HCC) Morbid obesity with BMI of 50.0-59.9, adult ([facility]) Arthritis of knee, right Aura's thyroiditis (CMS/HCC)- Primary Chronic lymphocytic thyroiditis Morbid obesity with BMI of 50.0-59.9, adult ([facility]) Psoriasis Other psoriasis Anxiety and depression (CMS/[facility]) Gastroesophageal reflux disease, unspecified whether esophagitis present Moderate persistent asthma without complication (CMS/HCC) Arthritis of knee, right Anxiety and depression (CMS/HCC)- Primary Mild persistent asthma without complication (CMS/HCC) Gastroesophageal reflux disease, unspecified whether esophagitis present Morbid obesity with BMI of 50.0-59.9, adult ([facility]) Aura's thyroiditis (CMS/HCC) Chronic lymphocytic thyroiditis Morbid obesity due to excess calories (CMS/HCC) Moderate persistent asthma without complication (CMS/HCC) Encounter for screening mammogram for malignant neoplasm of breast Arthritis of knee, right Psoriasis- Primary Other psoriasis 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 Morbid (severe) obesity due to excess calories (CMS/HCC) Body mass index (BMI) 45.0-49.9, adult ([facility]) Mild persistent asthma without complication (CMS/HCC) Gastroesophageal reflux disease, unspecified whether esophagitis present Anxiety and depression (CMS/HCC) Hypomagnesemia Disorders of magnesium metabolism Elevated glucose Other abnormal glucose Moderate persistent asthma without complication (CMS/HCC) Moderate persistent asthma, uncomplicated (CMS/HCC) Other constipation Hypothyroidism, unspecified type (CMS/HCC)- Primary Hypomagnesemia Disorders of magnesium metabolism Anxiety and depression (CMS/HCC) documented in this encounter [facility]* Diagnosis Anxiety and depression (CMS/HCC)- Primary Elevated glucose Other abnormal glucose Hypomagnesemia Disorders of magnesium metabolism Gastroesophageal reflux disease, unspecified whether esophagitis present Morbid obesity with BMI of 50.0-59.9, adult ([facility]) Moderate persistent asthma without complication ([facility]) Chronic pain of right knee Anxiety and depression ([facility])- Primary Abnormal TSH Chronic pain of right knee Non-recurrent acute suppurative otitis media of left ear without spontaneous rupture of tympanic membrane Aura's thyroiditis ([facility])- Primary Chronic lymphocytic thyroiditis Anxiety and depression ([facility]) Morbid obesity with BMI of 50.0-59.9, adult ([facility]) Arthritis of knee, right Cellulitis of lower extremity, unspecified laterality- Primary Moderate persistent asthma without complication ([facility]) Ventral hernia without obstruction or gangrene Unspecified ventral hernia without mention of obstruction or gangrene Gastroesophageal reflux disease, unspecified whether esophagitis present Morbid obesity with BMI of 50.0-59.9, adult ([facility]) Aura's thyroiditis ([facility] Chronic lymphocytic thyroiditis Anxiety and depression ([facility]) Gastroesophageal reflux disease, unspecified whether esophagitis present- Primary Aura's thyroiditis ([facility]) Chronic lymphocytic thyroiditis Moderate persistent asthma without complication ([facility]) Morbid obesity with BMI of 50.0-59.9, adult ([facility]) Arthritis of knee, right Aura's thyroiditis ([facility])- Primary Chronic lymphocytic thyroiditis Morbid obesity with BMI of 50.0-59.9, adult ([facility]) Psoriasis Other psoriasis Anxiety and depression ([facility]) Gastroesophageal reflux disease, unspecified whether esophagitis present Moderate persistent asthma without complication ([facility]) Arthritis of knee, right Anxiety and depression ([facility])- Primary Mild persistent asthma without complication ([facility]) Gastroesophageal reflux disease, unspecified whether esophagitis present Morbid obesity with BMI of 50.0-59.9, adult ([facility]) Aura's thyroiditis ([facility]) Chronic lymphocytic thyroiditis Morbid obesity due to excess calories ([facility]) Moderate persistent asthma without complication ([facility]) Encounter for screening mammogram for malignant neoplasm of breast Arthritis of knee, right Psoriasis- Primary Other psoriasis 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[facility])- Primary Morbid (severe) obesity due to excess calories ([facility]) Body mass index (BMI) 45.0-49.9, adult ([facility]) Mild persistent asthma without complication (CMS/[facility]) Gastroesophageal reflux disease, unspecified whether esophagitis present Anxiety and depression (CMS/[facility]) Hypomagnesemia Disorders of magnesium metabolism Elevated glucose Other abnormal glucose Moderate persistent asthma without complication (CMS/HCC) Moderate persistent asthma, uncomplicated (CMS/[facility]) Other constipation Hypothyroidism, unspecified type (CMS/[facility])- Primary Hypomagnesemia Disorders of magnesium metabolism Heart palpitations- Primary Palpitations Gastroesophageal reflux disease, unspecified whether esophagitis present Morbid (severe) obesity due to excess calories (CMS/[facility]) Hypomagnesemia Disorders of magnesium metabolism Aftercare following right knee joint replacement surgery- Primary documented in this encounter [facility]* Diagnosis Anxiety and depression ([facility])- Primary Elevated glucose Other abnormal glucose Hypomagnesemia Disorders of magnesium metabolism Gastroesophageal reflux disease, unspecified whether esophagitis present Morbid obesity with BMI of 50.0-59.9, adult ([facility]) Moderate persistent asthma without complication ([facility]) Chronic pain of right knee Anxiety and depression ([facility])- Primary Abnormal TSH Chronic pain of right knee Non-recurrent acute suppurative otitis media of left ear without spontaneous rupture of tympanic membrane Aura's thyroiditis ([facility])- Primary Chronic lymphocytic thyroiditis Anxiety and depression ([facility]) Morbid obesity with BMI of 50.0-59.9, adult ([facility]) Arthritis of knee, right Cellulitis of lower extremity, unspecified laterality- Primary Moderate persistent asthma without complication ([facility]) Ventral hernia without obstruction or gangrene Unspecified ventral hernia without mention of obstruction or gangrene Gastroesophageal reflux disease, unspecified whether esophagitis present Morbid obesity with BMI of 50.0-59.9, adult ([facility]) 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[facility] Chronic lymphocytic thyroiditis Anxiety and depression ([facility]) Gastroesophageal reflux disease, unspecified whether esophagitis present- Primary Aura's thyroiditis ([facility]) Chronic lymphocytic thyroiditis Moderate persistent asthma without complication ([facility]) Morbid obesity with BMI of 50.0-59.9, adult ([facility]) Arthritis of knee, right Aura's thyroiditis ([facility])- Primary Chronic lymphocytic thyroiditis Morbid obesity with BMI of 50.0-59.9, adult ([facility]) Psoriasis Other psoriasis Anxiety and depression (CMS/HCC) Gastroesophageal reflux disease, unspecified whether esophagitis present Moderate persistent asthma without complication (CMS/HCC) Arthritis of knee, right Anxiety and depression (CMS/HCC)- Primary Mild persistent asthma without complication (CMS/HCC) Gastroesophageal reflux disease, unspecified whether esophagitis present Morbid obesity with BMI of 50.0-59.9, adult ([facility]) Aura's thyroiditis (CMS/[facility]) Chronic lymphocytic thyroiditis Morbid obesity due to excess calories (CMS/HCC) Moderate persistent asthma without complication (CMS/[facility]) Encounter for screening mammogram for malignant neoplasm of breast Arthritis of knee, right Psoriasis- Primary Other psoriasis 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 Morbid (severe) obesity due to excess calories (CMS/[facility]) Body mass index (BMI) 45.0-49.9, adult ([facility]) Mild persistent asthma without complication (CMS/[facility]) Gastroesophageal reflux disease, unspecified whether esophagitis present Anxiety and depression (CMS/[facility]) Hypomagnesemia Disorders of magnesium metabolism Elevated glucose Other abnormal glucose Moderate persistent asthma without complication (CMS/HCC) Moderate persistent asthma, uncomplicated (CMS/[facility]) Other constipation Hypothyroidism, unspecified type (CMS/[facility])- Primary Hypomagnesemia Disorders of magnesium metabolism Heart palpitations- Primary Palpitations Gastroesophageal reflux disease, unspecified whether esophagitis present Morbid (severe) obesity due to excess calories ([facility]) Hypomagnesemia Disorders of magnesium metabolism Aftercare following right knee joint replacement surgery- Primary documented in this encounter [facility]* Diagnosis Anxiety and depression ([facility]/HCC)- Primary Elevated glucose Other abnormal glucose Hypomagnesemia Disorders of magnesium metabolism Gastroesophageal reflux disease, unspecified whether esophagitis present Morbid obesity with BMI of 50.0-59.9, adult ([facility]) Moderate persistent asthma without complication (CMS/HCC) Chronic pain of right knee Anxiety and depression (CMS/HCC)- Primary Abnormal TSH Chronic pain of right knee Non-recurrent acute suppurative otitis media of left ear without spontaneous rupture of tympanic membrane Aura's thyroiditis (CMS/[facility])- Primary Chronic lymphocytic thyroiditis Anxiety and depression (CMS/[facility]) Morbid obesity with BMI of 50.0-59.9, adult ([facility]) Arthritis of knee, right Cellulitis of lower extremity, unspecified laterality- Primary Moderate persistent asthma without complication ([facility]) Ventral hernia without obstruction or gangrene Unspecified ventral hernia without mention of obstruction or gangrene Gastroesophageal reflux disease, unspecified whether esophagitis present Morbid obesity with BMI of 50.0-59.9, adult ([facility]) 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[facility] Chronic lymphocytic thyroiditis Anxiety and depression ([facility]) Gastroesophageal reflux disease, unspecified whether esophagitis present- Primary Aura's thyroiditis ([facility]) Chronic lymphocytic thyroiditis Moderate persistent asthma without complication ([facility]) Morbid obesity with BMI of 50.0-59.9, adult ([facility]) Arthritis of knee, right Aura's thyroiditis ([facility])- Primary Chronic lymphocytic thyroiditis Morbid obesity with BMI of 50.0-59.9, adult ([facility]) Psoriasis Other psoriasis Anxiety and depression ([facility]) Gastroesophageal reflux disease, unspecified whether esophagitis present Moderate persistent asthma without complication ([facility]) Arthritis of knee, right Anxiety and depression ([facility])- Primary Mild persistent asthma without complication ([facility]) Gastroesophageal reflux disease, unspecified whether esophagitis present Morbid obesity with BMI of 50.0-59.9, adult ([facility]) 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[facility]) Chronic lymphocytic thyroiditis Morbid obesity due to excess calories ([facility]) Moderate persistent asthma without complication ([facility]) Encounter for screening mammogram for malignant neoplasm of breast Arthritis of knee, right Psoriasis- Primary Other psoriasis 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[facility])- Primary Morbid (severe) obesity due to excess calories ([facility]) Body mass index (BMI) 45.0-49.9, adult ([facility]) Mild persistent asthma without complication ([facility]) Gastroesophageal reflux disease, unspecified whether esophagitis present Anxiety and depression ([facility]) Hypomagnesemia Disorders of magnesium metabolism Elevated glucose Other abnormal glucose Moderate persistent asthma without complication ([facility]) Moderate persistent asthma, uncomplicated ([facility]) Other constipation Hypothyroidism, unspecified type ([facility])- Primary Hypomagnesemia Disorders of magnesium metabolism Heart palpitations- Primary Palpitations Gastroesophageal reflux disease, unspecified whether esophagitis present Morbid (severe) obesity due to excess calories ([facility]) Hypomagnesemia Disorders of magnesium metabolism Hypomagnesemia- Primary Disorders of magnesium metabolism documented in this encounter [facility]* Diagnosis Anxiety and depression (CMS/HCC)- Primary Elevated glucose Other abnormal glucose Hypomagnesemia Disorders of magnesium metabolism Gastroesophageal reflux disease, unspecified whether esophagitis present Morbid obesity with BMI of 50.0-59.9, adult ([facility]) Moderate persistent asthma without complication (CMS/HCC) Chronic pain of right knee Anxiety and depression (CMS/HCC)- Primary Abnormal TSH Chronic pain of right knee Non-recurrent acute suppurative otitis media of left ear without spontaneous rupture of tympanic membrane Aura's thyroiditis (CMS/HCC)- Primary Chronic lymphocytic thyroiditis Anxiety and depression (CMS/HCC) Morbid obesity with BMI of 50.0-59.9, adult ([facility]/HCC) Arthritis of knee, right Cellulitis of lower extremity, unspecified laterality- Primary Moderate persistent asthma without complication (CMS/HCC) Ventral hernia without obstruction or gangrene Unspecified ventral hernia without mention of obstruction or gangrene Gastroesophageal reflux disease, unspecified whether esophagitis present Morbid obesity with BMI of 50.0-59.9, adult ([facility]) Aura's thyroiditis (CMS/HCC) Chronic lymphocytic thyroiditis Anxiety and depression (CMS/[facility]) Gastroesophageal reflux disease, unspecified whether esophagitis present- Primary Aura's thyroiditis (CMS/HCC) Chronic lymphocytic thyroiditis Moderate persistent asthma without complication (CMS/HCC) Morbid obesity with BMI of 50.0-59.9, adult ([facility]) Arthritis of knee, right Aura's thyroiditis (CMS/HCC)- Primary Chronic lymphocytic thyroiditis Morbid obesity with BMI of 50.0-59.9, adult ([facility]) Psoriasis Other psoriasis Anxiety and depression (CMS/HCC) Gastroesophageal reflux disease, unspecified whether esophagitis present Moderate persistent asthma without complication (CMS/HCC) Arthritis of knee, right Anxiety and depression (CMS/HCC)- Primary Mild persistent asthma without complication (CMS/HCC) Gastroesophageal reflux disease, unspecified whether esophagitis present Morbid obesity with BMI of 50.0-59.9, adult ([facility]) Auar's thyroiditis (CMS/HCC) Chronic lymphocytic thyroiditis Morbid obesity due to excess calories (CMS/HCC) Moderate persistent asthma without complication (CMS/[facility]) Encounter for screening mammogram for malignant neoplasm of breast Arthritis of knee, right Psoriasis- Primary Other psoriasis 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 Morbid (severe) obesity due to excess calories (CMS/HCC) Body mass index (BMI) 45.0-49.9, adult (CMS/[facility]) Mild persistent asthma without complication (CMS/HCC) Gastroesophageal reflux disease, unspecified whether esophagitis present Anxiety and depression (CMS/HCC) Hypomagnesemia Disorders of magnesium metabolism Elevated glucose Other abnormal glucose Moderate persistent asthma without complication (CMS/HCC) Moderate persistent asthma, uncomplicated (CMS/HCC) Other constipation Hypothyroidism, unspecified type (CMS/HCC)- Primary Hypomagnesemia Disorders of magnesium metabolism Heart palpitations- Primary Palpitations Gastroesophageal reflux disease, unspecified whether esophagitis present Morbid (severe) obesity due to excess calories (CMS/HCC) Hypomagnesemia Disorders of magnesium metabolism Hypothyroidism, unspecified type (CMS/HCC)- Primary documented in this encounter [facility]* Diagnosis Anxiety and depression (CMS/HCC)- Primary Elevated glucose Other abnormal glucose Hypomagnesemia Disorders of magnesium metabolism Gastroesophageal reflux disease, unspecified whether esophagitis present Morbid obesity with BMI of 50.0-59.9, adult ([facility]) Moderate persistent asthma without complication (CMS/HCC) Chronic pain of right knee Anxiety and depression (CMS/HCC)- Primary Abnormal TSH Chronic pain of right knee Non-recurrent acute suppurative otitis media of left ear without spontaneous rupture of tympanic membrane Aura's thyroiditis (CMS/HCC)- Primary Chronic lymphocytic thyroiditis Anxiety and depression ([facility]) Morbid obesity with BMI of 50.0-59.9, adult ([facility]) Arthritis of knee, right Cellulitis of lower extremity, unspecified laterality- Primary Moderate persistent asthma without complication (CMS/HCC) Ventral hernia without obstruction or gangrene Unspecified ventral hernia without mention of obstruction or gangrene Gastroesophageal reflux disease, unspecified whether esophagitis present Morbid obesity with BMI of 50.0-59.9, adult ([facility]) Aura's thyroiditis (CMS/HCC) Chronic lymphocytic thyroiditis Anxiety and depression (CMS/[facility]) Gastroesophageal reflux disease, unspecified whether esophagitis present- Primary Aura's thyroiditis (CMS/HCC) Chronic lymphocytic thyroiditis Moderate persistent asthma without complication (CMS/HCC) Morbid obesity with BMI of 50.0-59.9, adult ([facility]) Arthritis of knee, right Aura's thyroiditis ([facility]/HCC)- Primary Chronic lymphocytic thyroiditis Morbid obesity with BMI of 50.0-59.9, adult ([facility]) Psoriasis Other psoriasis Anxiety and depression ([facility]) Gastroesophageal reflux disease, unspecified whether esophagitis present Moderate persistent asthma without complication (CMS/HCC) Arthritis of knee, right Anxiety and depression ([facility]/HCC)- Primary Mild persistent asthma without complication (CMS/HCC) Gastroesophageal reflux disease, unspecified whether esophagitis present Morbid obesity with BMI of 50.0-59.9, adult ([facility]) Aura's thyroiditis ([facility]) Chronic lymphocytic thyroiditis Morbid obesity due to excess calories ([facility]) Moderate persistent asthma without complication ([facility]) Encounter for screening mammogram for malignant neoplasm of breast Arthritis of knee, right Psoriasis- Primary Other psoriasis 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[facility])- Primary Morbid (severe) obesity due to excess calories ([facility]) Body mass index (BMI) 45.0-49.9, adult ([facility]) Mild persistent asthma without complication ([facility]) Gastroesophageal reflux disease, unspecified whether esophagitis present Anxiety and depression ([facility]) Hypomagnesemia Disorders of magnesium metabolism Elevated glucose Other abnormal glucose Moderate persistent asthma without complication ([facility]) Moderate persistent asthma, uncomplicated ([facility]) Other constipation Hypothyroidism, unspecified type ([facility])- Primary Hypomagnesemia Disorders of magnesium metabolism Heart palpitations- Primary Palpitations Gastroesophageal reflux disease, unspecified whether esophagitis present Morbid (severe) obesity due to excess calories ([facility]) Hypomagnesemia Disorders of magnesium metabolism Heart palpitations- Primary Palpitations Morbid (severe) obesity due to excess calories ([facility]) Ventricular arrhythmia Unspecified cardiac dysrhythmia Abnormal electrocardiogram (ECG) (EKG) documented [facility] encounter [facility] Diagnosis Anxiety and depression ([facility])- Primary Elevated glucose Other abnormal glucose Hypomagnesemia Disorders of magnesium metabolism Gastroesophageal reflux disease, unspecified whether esophagitis present Morbid obesity with BMI of 50.0-59.9, adult ([facility]) Moderate persistent asthma without complication ([facility]/HCC) Chronic pain of right knee Anxiety and depression ([facility])- Primary Abnormal TSH Chronic pain of right knee Non-recurrent acute suppurative otitis media of left ear without spontaneous rupture of tympanic membrane Aura's thyroiditis ([facility]/HCC)- Primary Chronic lymphocytic thyroiditis Anxiety and depression ([facility]) Morbid obesity with BMI of 50.0-59.9, adult ([facility]) Arthritis of knee, right Cellulitis of lower extremity, unspecified laterality- Primary Moderate persistent asthma without complication ([facility]) Ventral hernia without obstruction or gangrene Unspecified ventral hernia without mention of obstruction or gangrene Gastroesophageal reflux disease, unspecified whether esophagitis present Morbid obesity with BMI of 50.0-59.9, adult ([facility]) Aura's thyroiditis ([facility] Chronic lymphocytic thyroiditis Anxiety and depression ([facility]) Gastroesophageal reflux disease, unspecified whether esophagitis present- Primary Aura's thyroiditis ([facility]) Chronic lymphocytic thyroiditis Moderate persistent asthma without complication ([facility]) Morbid obesity with BMI of 50.0-59.9, adult ([facility]) Arthritis of knee, right Aura's thyroiditis ([facility])- Primary Chronic lymphocytic thyroiditis Morbid obesity with BMI of 50.0-59.9, adult ([facility]) Psoriasis Other psoriasis Anxiety and depression ([facility]) Gastroesophageal reflux disease, unspecified whether esophagitis present Moderate persistent asthma without complication ([facility]) Arthritis of knee, right Anxiety and depression ([facility])- Primary Mild persistent asthma without complication ([facility]) Gastroesophageal reflux disease, unspecified whether esophagitis present Morbid obesity with BMI of 50.0-59.9, adult ([facility]) Aura's thyroiditis ([facility]) Chronic lymphocytic thyroiditis Morbid obesity due to excess calories ([facility]) Moderate persistent asthma without complication ([facility]) Encounter for screening mammogram for malignant neoplasm of breast Arthritis of knee, right Psoriasis- Primary Other psoriasis 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[facility])- Primary Morbid (severe) obesity due to excess calories ([facility]) Body mass index (BMI) 45.0-49.9, adult ([facility]) Mild persistent asthma without complication ([facility]) Gastroesophageal reflux disease, unspecified whether esophagitis present Anxiety and depression ([facility]) Hypomagnesemia Disorders of magnesium metabolism Elevated glucose Other abnormal glucose Moderate persistent asthma without complication ([facility]) Moderate persistent asthma, uncomplicated ([facility]) Other constipation Hypothyroidism, unspecified type ([facility])- Primary Hypomagnesemia Disorders of magnesium metabolism Heart palpitations- Primary Palpitations Gastroesophageal reflux disease, unspecified whether esophagitis present Morbid (severe) obesity due to excess calories ([facility]) Hypomagnesemia Disorders of magnesium metabolism Heart palpitations- Primary Palpitations Ventricular arrhythmia Unspecified cardiac dysrhythmia documented in this encounter [facility]* Diagnosis Anxiety and depression ([facility])- Primary Elevated glucose Other abnormal glucose Hypomagnesemia Disorders of magnesium metabolism Gastroesophageal reflux disease, unspecified whether esophagitis present Morbid obesity with BMI of 50.0-59.9, adult ([facility]) Moderate persistent asthma without complication ([facility]) Chronic pain of right knee Anxiety and depression ([facility])- Primary Abnormal TSH Chronic pain of right knee Non-recurrent acute suppurative otitis media of left ear without spontaneous rupture of tympanic membrane Aura's thyroiditis ([facility])- Primary Chronic lymphocytic thyroiditis Anxiety and depression ([facility]) Morbid obesity with BMI of 50.0-59.9, adult ([facility]) Arthritis of knee, right Cellulitis of lower extremity, unspecified laterality- Primary Moderate persistent asthma without complication ([facility]) Ventral hernia without obstruction or gangrene Unspecified ventral hernia without mention of obstruction or gangrene Gastroesophageal reflux disease, unspecified whether esophagitis present Morbid obesity with BMI of 50.0-59.9, adult ([facility]) 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[facility] Chronic lymphocytic thyroiditis Anxiety and depression ([facility]) Gastroesophageal reflux disease, unspecified whether esophagitis present- Primary Aura's thyroiditis ([facility]) Chronic lymphocytic thyroiditis Moderate persistent asthma without complication ([facility]) Morbid obesity with BMI of 50.0-59.9, adult ([facility]) Arthritis of knee, right Aura's thyroiditis ([facility])- Primary Chronic lymphocytic thyroiditis Morbid obesity with BMI of 50.0-59.9, adult ([facility]) Psoriasis Other psoriasis Anxiety and depression ([facility]) Gastroesophageal reflux disease, unspecified whether esophagitis present Moderate persistent asthma without complication ([facility]) Arthritis of knee, right Anxiety and depression ([facility])- Primary Mild persistent asthma without complication ([facility]) Gastroesophageal reflux disease, unspecified whether esophagitis present Morbid obesity with BMI of 50.0-59.9, adult ([facility]) Aura's thyroiditis ([facility]/HCC) Chronic lymphocytic thyroiditis Morbid obesity due to excess calories ([facility]) Moderate persistent asthma without complication ([facility]) Encounter for screening mammogram for malignant neoplasm of breast Arthritis of knee, right Psoriasis- Primary Other psoriasis 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[facility]/HCC)- Primary Morbid (severe) obesity due to excess calories (CMS/[facility]) Body mass index (BMI) 45.0-49.9, adult ([facility]) Mild persistent asthma without complication (CMS/[facility]) Gastroesophageal reflux disease, unspecified whether esophagitis present Anxiety and depression ([facility]) Hypomagnesemia Disorders of magnesium metabolism Elevated glucose Other abnormal glucose Moderate persistent asthma without complication ([facility]/HCC) Moderate persistent asthma, uncomplicated ([facility]) Other constipation Hypothyroidism, unspecified type (CMS/[facility])- Primary Hypomagnesemia Disorders of magnesium metabolism Heart palpitations- Primary Palpitations Gastroesophageal reflux disease, unspecified whether esophagitis present Morbid (severe) obesity due to excess calories ([facility]) Hypomagnesemia Disorders of magnesium metabolism Hormone disorder Unspecified endocrine disorder documented in this encounter [facility]* Diagnosis Anxiety and depression ([facility])- Primary Elevated glucose Other abnormal glucose Hypomagnesemia Disorders of magnesium metabolism Gastroesophageal reflux disease, unspecified whether esophagitis present Morbid obesity with BMI of 50.0-59.9, adult ([facility] Moderate persistent asthma without complication ([facility]) Chronic pain of right knee Anxiety and depression ([facility])- Primary Abnormal TSH Chronic pain of right knee Non-recurrent acute suppurative otitis media of left ear without spontaneous rupture of tympanic membrane Aura's thyroiditis ([facility]/HCC)- Primary Chronic lymphocytic thyroiditis Anxiety and depression ([facility]) Morbid obesity with BMI of 50.0-59.9, adult ([facility]) Arthritis of knee, right Cellulitis of lower extremity, unspecified laterality- Primary Moderate persistent asthma without complication ([facility]) Ventral hernia without obstruction or gangrene Unspecified ventral hernia without mention of obstruction or gangrene Gastroesophageal reflux disease, unspecified whether esophagitis present Morbid obesity with BMI of 50.0-59.9, adult ([facility]) Aura's thyroiditis ([facility]) Chronic lymphocytic thyroiditis Anxiety and depression (CMS/HCC) Gastroesophageal reflux disease, unspecified whether esophagitis present- Primary Aura's thyroiditis (CMS/HCC) Chronic lymphocytic thyroiditis Moderate persistent asthma without complication (CMS/HCC) Morbid obesity with BMI of 50.0-59.9, adult ([facility]) Arthritis of knee, right Aura's thyroiditis ([facility]/HCC)- Primary Chronic lymphocytic thyroiditis Morbid obesity with BMI of 50.0-59.9, adult ([facility]) Psoriasis Other psoriasis Anxiety and depression ([facility]) Gastroesophageal reflux disease, unspecified whether esophagitis present Moderate persistent asthma without complication (CMS/HCC) Arthritis of knee, right Anxiety and depression ([facility]/HCC)- Primary Mild persistent asthma without complication ([facility]/HCC) Gastroesophageal reflux disease, unspecified whether esophagitis present Morbid obesity with BMI of 50.0-59.9, adult ([facility]) Aura's thyroiditis ([facility] Chronic lymphocytic thyroiditis Morbid obesity due to excess calories ([facility]) Moderate persistent asthma without complication ([facility]) Encounter for screening mammogram for malignant neoplasm of breast Arthritis of knee, right Psoriasis- Primary Other psoriasis 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[facility])- Primary Morbid (severe) obesity due to excess calories ([facility]) Body mass index (BMI) 45.0-49.9, adult ([facility]) Mild persistent asthma without complication ([facility]) Gastroesophageal reflux disease, unspecified whether esophagitis present Anxiety and depression ([facility]) Hypomagnesemia Disorders of magnesium metabolism Elevated glucose Other abnormal glucose Moderate persistent asthma without complication ([facility]/HCC) Moderate persistent asthma, uncomplicated ([facility]) Other constipation Hypothyroidism, unspecified type ([facility])- Primary Hypomagnesemia Disorders of magnesium metabolism Heart palpitations- Primary Palpitations Gastroesophageal reflux disease, unspecified whether esophagitis present Morbid (severe) obesity due to excess calories ([facility]) Hypomagnesemia Disorders of magnesium metabolism Heart palpitations- Primary Palpitations Ventricular arrhythmia Unspecified cardiac dysrhythmia Gastroesophageal reflux disease, unspecified whether esophagitis present Morbid (severe) obesity due to excess calories (CMS/HCC) Anxiety and depression (CMS/HCC) Environmental and seasonal allergies Moderate persistent asthma without complication ([facility]/HCC) documented [facility] this encounter [facility] N[facility]ative - Reported* Type Description Date Medical History diabetes Medical History asthma Medical History hx of syncope Medical History Gastro-esophageal reflux disease without esophagitis Surgical History hernia surgery X2 Surgical History gall bladder removed Hospitalization History see above surgical hx Hospitalization History 2 child births [employer] Other Hospital course Narrative No data available for this section [facility] Hospital Discharge instructions No data available for this section [facility] Progress note No data available for this section [facility] Reason for referral (narrative)* Consultation (Routine) - Pending Review Specialty Diagnoses / Procedures Referred By Arnoldo cazares Referred To Contact Rheumatology Diagnoses Psoriasis (CMS/HCC) Procedures MS OFFICE/OUTPATIENT NEW HIGH MDM 60 MINUTES Elvie Greer NP [address] [place] [address] Ghassan Ramos MD [address] [place] [address] Referral ID Status Reason Start Date Expiration Date Visits Requested Visits Authorized [id number] Pending Review Specialty Services Required 11/09/2023 05/07/2024 1 1 [facility]* Consultation (Routine) - Authorized Specialty Diagnoses / Procedures Referred By Arnoldo cazares Referred To Contact Physical Therapy Diagnoses Primary osteoarthritis of right knee Procedures MS OFFICE/OUTPATIENT NEW HIGH MDM 60 MINUTES Chan Khan, DO [address] [place] [address] Phone: tel: fax: Kylee Fernandez PT Referral ID Status Reason Start Date Expiration Date Visits Requested Visits Authorized [id number] Authorized Specialty Services Required 4 07/15/2024 26 3 [facility] N[facility]* Rehabilitation - Outpatient (Routine) - Authorized Specialty Diagnoses / Procedures Referred By Arnoldo cazares Referred To Contact Physical Therapy Diagnoses Aftercare following right knee joint replacement surgery Presence of right artificial knee joint Procedures MS THERAPEUTIC PX 1/> AREAS EACH 15 MIN EXERCISES MS MANUAL THERAPY TQS 1/> REGIONS EACH 15 MINUTES MS THER PX 1/> AREAS EACH 15 MIN NEUROMUSC REEDUCA PHYS/OCC THERAPY Chan Llanes, DO [address] [place] [address] Phone: tel: fax: Kylee Fernandez, MADHAVI Referral ID Status Reason Start Date Expiration Date V isits Requested Visits Authorized [id number] Authorized 03/15/2024 03/07/2025 1 37 [facility]* Rehabilitation - Outpatient (Routine) - Authorized Specialty Diagnoses / Procedures Referred By Arnoldo cazares Referred To Contact Physical Therapy Diagnoses Aftercare following right knee joint replacement surgery Presence of right artificial knee joint Procedures MS THERAPEUTIC PX 1/> AREAS EACH 15 MIN EXERCISES MS MANUAL THERAPY TQS 1/> REGIONS EACH 15 MINUTES MS THER PX 1/> AREAS EACH 15 MIN NEUROMUSC REEDUCA PHYS/OCC THERAPY Chan Llanes, DO [address] [place] [address] Phone: tel: fax: Kylee Fernandez, MADHAVI Referral ID Status Reason Start Date Expiration Date V isits Requested Visits Authorized [id number] Authorized 03/15/2024 03/07/2025 1 38 [facility] HealthcareReason for visit Narrative* Rehabilitation - Outpatient (Routine) - Closed Specialty Diagnoses / Procedures Referred By Arnoldo cazares Referred To Contact Physical Therapy Diagnoses Aftercare following right knee joint replacement surgery Presence of right artificial knee joint Procedures MS THERAPEUTIC PX 1/> AREAS EACH 15 MIN EXERCISES MS MANUAL THERAPY TQS 1/> REGIONS EACH 15 MINUTES MS THER PX 1/> AREAS EACH 15 MIN NEUROMUSC REEDUCA PHYS/OCC THERAPY Chan Llanes, DO [address] [place] [address] Phone: tel: fax: Kylee Fernandez, MADHAVI Referral ID Status Reason Start Date Expiration Date Visits Re quested Visits Authorized [id number] Closed 03/15/2024 03/07/2025 1 38 [facility] Healthcare Summary Purpose Family History Relationship Condition Age at Onset Recorded Date/T rahel father Unknown mother Diabetes mellitus Unknown Family history of mental disorder Unknown Heart disease Unknown sister Hypertension Unknown Advance Directives Advance Directive Response Recorded Date/ Time Advance Directives No November 10:23am Advance Directive Response Recorded Date/ Time Advance Directives No December 09, 2023 1:58pm Chief Complaint and Reason for Visit Chief Complaint Infected tattoo Chief Complaint Infected tattoo M25.50 Reason for Visit Cellulitis of arm, l eft Additional Source Comments INFORMATION SOURCE (unrecogn ized section and content) DATE CREATED AUTHOR 06/01/2022 [facility] DATE CREATED AUTHOR AUTHOR'S ORGANIZ ATION 07/22/2023 [facility] DATE CREATED AUTHOR AUTHOR'S ORGANIZ ATION 12/20/2023 [facility] DATE CREATED AUTHOR AUTHOR'S ORGANIZ ATION 01/27/[address] [facility] DATE CREATED AUTHOR AUTHOR'S ORGANIZ ATION 01/28/2024 [facility] DATE CREATED AUTHOR AUTHOR'S ORGANIZ ATION 02/22/[address] [facility] DATE CREATED AUTHOR AUTHOR'S ORGANIZ ATION 02/23/[address] [facility] DATE CREATED AUTHOR AUTHOR'S ORGANIZ ATION 02/26/2024 [facility] DATE CREATED AUTHOR AUTHOR'S ORGANIZ ATION 02/29/2024 [facility] DATE CREATED AUTHOR AUTHOR'S ORGANIZ ATION 08/09/2024 [facility] EPIC REASON FOR VISIT (unrecogniz ed section and content) Reason Comments Follow-up Reason Comments Med Refill Reason Comments Aura's Thyroiditis Reason Comments Post-op Reason Comments Well Women Visit Reason Comments hormones Reason Comments Hypertension Care Teams (unrecognized sec tion and content) Electrical Line Worker Relationship Specialty Start Date End Date Chris Pelaez MD [address] [place] [address] PCP - General Family Medicine 04/01/23 Elvie Greer NP [address] [place] [address] Nurse Practitioner Family Medicine 04/01/23 Electrical Line Worker Relationship Specialty Start Date End Date Chris Pelaez MD [address] [place] [address] PCP - General Family Medicine 04/01/23 Elvie Greer NP [address] [place] [address] Nurse Practitioner Family Medicine 04/01/23 Team Status: [...] December 09, 2023 End: December 09, 2023 Electrical Line Worker Relationship Specialty Start Date End Date Chris Pelaez MD [address] [place] [address] PCP - General Family Medicine 04/01/23 Elvie Greer NP [address] [place] [address] Nurse Practitioner Family Medicine 04/01/23 Electrical Line Worker Relationship Specialty Start Date End Date Chris Pelaez MD [address] [place] [address] PCP - General Family Medicine 04/01/23 Elvie Greer NP [address] [place] [address] Nurse Practitioner Family Medicine 04/01/23 Electrical Line Worker Relationship Specialty Start Date End Date Chris Pelaez MD [address] [place] [address] PCP - General Family Medicine 04/01/23 Elvie Greer NP [address] [place] [address] Nurse Practitioner Family Medicine 04/01/23 Electrical Line Worker Relationship Specialty Start Date End Date Chris Pelaez MD [address] [place] [address] PCP - General Family Medicine 04/01/23 Elvie Greer NP [address] [place] [address] Nurse Practitioner Family Medicine 04/01/23 Electrical Line Worker Relationship Specialty Start Date End Date Chris Pelaez MD [address] [place] [address] PCP - General Family Medicine 04/01/23 Elvie Greer NP [address] [place] [address] Nurse Practitioner Family Medicine 04/01/23 Electrical Line Worker Relationship Specialty Start Date End Date Chris Pelaez MD [address] [place] [address] PCP - General Family Medicine 04/01/23 Elvie Greer NP [address] [place] [address] Nurse Practitioner Family Medicine 04/01/23 Electrical Line Worker Relationship Specialty Start Date End Date Chris Pelaez MD [address] [place] [address] PCP - General Family Medicine 04/01/23 Elvie Greer NP [address] [place] [address] Nurse Practitioner Family Medicine 04/01/23 Electrical Line Worker Relationship Specialty Start Date End Date Chris Pelaez MD [address] [place] [address] PCP - General Family Medicine 04/01/23 Elvie Greer NP [address] [place] [address] Nurse Practitioner Family Medicine 04/01/23 Electrical Line Worker Relationship Specialty Start Date End Date Chris Pelaez MD [address] [place] [address] PCP - General Family Medicine 04/01/23 Elvie Greer NP [address] [place] [address] Nurse Practitioner Family Medicine 04/01/23 Electrical Line Worker Relationship Specialty Start Date End Date Chris Pelaez MD [address] [place] [address] PCP - General Family Medicine 04/01/23 Elvie Greer NP [address] [place] [address] Nurse Practitioner Family Medicine 04/01/23 Electrical Line Worker Relationship Specialty Start Date End Date Chris Pelaez MD [address] [place] [address] PCP - General Family Medicine 04/01/23 Elvie Greer NP [address] [place] [address] Nurse Practitioner Family Medicine 04/01/23 Electrical Line Worker Relationship Specialty Start Date End Date Chris Pelaez MD [address] [place] [address] PCP - General Family Medicine 04/01/23 Elvie Greer NP [address] [place] [address] Nurse Practitioner Family Medicine 04/01/23 Electrical Line Worker Relationship Specialty Start Date End Date Chris Pelaez MD [address] [place] [address] PCP - General Family Medicine 04/01/23 Elvie Greer NP [address] [place] [address] Nurse Practitioner Family Medicine 04/01/23 Electrical Line Worker Relationship Specialty Start Date End Date Chris Pelaez MD [address] [place] [address] PCP - General Family Medicine 04/01/23 Elvie Greer NP [address] [place] [address] Nurse Practitioner Family Medicine 04/01/23 Electrical Line Worker Relationship Specialty Start Date End Date Chris Pelaez MD [address] [place] [address] PCP - General Family Medicine 04/01/23 Elvie Greer NP [address] [place] [address] Nurse Practitioner Family Medicine 04/01/23 Electrical Line Worker Relationship Specialty Start Date End Date Chris Pelaez MD [address] [place] [address] PCP - General Family Medicine 04/01/23 Elvie Greer NP [address] [place] [address] Nurse Practitioner Family Medicine 04/01/23 Electrical Line Worker Relationship Specialty Start Date End Date Chris Pelaez MD [address] [place] [address] PCP - General Family Medicine 04/01/23 Elvie Greer NP [address] [place] [address] Nurse Practitioner Family Medicine 04/01/23 Electrical Line Worker Relationship Specialty Start Date End Date Chris Pelaez MD [address] [place] [address] PCP - General Family Medicine 04/01/23 Elvie Greer NP [address] [place] [address] Nurse Practitioner Family Medicine 04/01/23 Electrical Line Worker Relationship Specialty Start Date End Date Chris Pelaez MD [address] [place] [address] PCP - General Family Medicine 04/01/23 Elvie Greer NP [address] [place] [address] Nurse Practitioner Family Medicine 04/01/23 Electrical Line Worker Relationship Specialty Start Date End Date Chris Pelaez MD [address] [place] [address] PCP - General Family Medicine 04/01/23 Elvie Greer NP [address] [place] [address] Nurse Practitioner Family Medicine 04/01/23 Electrical Line Worker Relationship Specialty Start Date End Date Chris Pelaez MD [address] [place] [address] PCP - General Family Medicine 04/01/23 Elvie Greer NP [address] [place] [address] Nurse Practitioner Family Medicine 04/01/23 Electrical Line Worker Relationship Specialty Start Date End Date Chris Pelaez MD [address] [place] [address] PCP - General Family Medicine 04/01/23 Elvie Greer NP [address] [place] [address] Nurse Practitioner Family Medicine 04/01/23 Electrical Line Worker Relationship Specialty Start Date End Date Chris Pelaez MD [address] [place] [address] PCP - General Family Medicine 04/01/23 Elvie Greer NP [address] [place] [address] Nurse Practitioner Family Medicine 04/01/23 Electrical Line Worker Relationship Specialty Start Date End Date Chris Pelaez MD [address] [place] [address] PCP - General Family Medicine 04/01/23 Elvie Greer NP [address] [place] [address] Nurse Practitioner Family Medicine 04/01/23 Electrical Line Worker Relationship Specialty Start Date End Date Chris Pelaez MD [address] [place] [address] PCP - General Family Medicine 04/01/23 Elvie Greer NP [address] [place] [address] Nurse Practitioner Family Medicine 04/01/23 Electrical Line Worker Relationship Specialty Start Date End Date Chris Pelaez MD [address] [place] [address] PCP - General Family Medicine 04/01/23 Elvie Greer NP [address] [place] [address] Nurse Practitioner Family Medicine 04/01/23 Electrical Line Worker Relationship Specialty Start Date End Date Chris Pelaez MD [address] [place] [address] PCP - General Family Medicine 04/01/23 Elvie Greer NP [address] [place] [address] Nurse Practitioner Family Medicine 04/01/23 Electrical Line Worker Relationship Specialty Start Date End Date Chris Pelaez MD [address] [place] [address] PCP - General Family Medicine 04/01/23 Elvie Greer NP [address] [place] [address] Nurse Practitioner Family Medicine 04/01/23 Electrical Line Worker Relationship Specialty Start Date End Date Chris Pelaez MD [address] [place] [address] PCP - General Family Medicine 04/01/23 Elvie Greer NP [address] [place] [address] Nurse Practitioner Family Medicine 04/01/23 Electrical Line Worker Relationship Specialty Start Date End Date Chris Pelaez MD [address] [place] [address] PCP - General Family Medicine 04/01/23 Elvie Greer NP [address] [place] [address] Nurse Practitioner Family Medicine 04/01/23 Electrical Line Worker Relationship Specialty Start Date End Date Chris Pelaez MD [address] [place] [address] PCP - General Family Medicine 04/01/23 Elvie Greer NP [address] [place] [address] Nurse Practitioner Family Medicine 04/01/23 Electrical Line Worker Relationship Specialty Start Date End Date Chris Pelaez MD [address] [place] [address] PCP - General Family Medicine 04/01/23 Elvie Greer NP [address] [place] [address] Nurse Practitioner Family Medicine 04/01/23 Electrical Line Worker Relationship Specialty Start Date End Date Chris Pelaez MD [address] [place] [address] PCP - General Family Medicine 04/01/23 Elvie Greer NP [address] [place] [address] Nurse Practitioner Family Medicine 04/01/23 Electrical Line Worker Relationship Specialty Start Date End Date Chris Pelaez MD [address] [place] [address] PCP - General Family Medicine 04/01/23 Elvie Greer NP [address] [place] [address] Nurse Practitioner Family Medicine 04/01/23 Electrical Line Worker Relationship Specialty Start Date End Date Chris Pelaez MD [address] [place] [address] PCP - General Family Medicine 04/01/23 Elvie Greer NP [address] [place] [address] Nurse Practitioner Family Medicine 04/01/23 Electrical Line Worker Relationship Specialty Start Date End Date Chris Pelaez MD [address] [place] [address] PCP - General Family Medicine 04/01/23 Elvie Greer NP [address] [place] [address] Nurse Practitioner Family Medicine 04/01/23 Electrical Line Worker Relationship Specialty Start Date End Date Chris Pelaez MD [address] [place] [address] PCP - General Family Medicine 04/01/23 Elvie Greer NP [address] [place] [address] Nurse Practitioner Family Medicine 04/01/23 Electrical Line Worker Relationship Specialty Start Date End Date Chris Pelaez MD [address] [place] [address] PCP - General Family Medicine 04/01/23 Elvie Greer NP [address] [place] [address] Nurse Practitioner Family Medicine 04/01/23 Electrical Line Worker Relationship Specialty Start Date End Date Chris Pelaez MD [address] [place] [address] PCP - General Family Medicine 04/01/23 Elvie Greer NP [address] [place] [address] Nurse Practitioner Family Medicine 04/01/23 Electrical Line Worker Relationship Specialty Start Date End Date Chris Pelaez MD [address] [place] [address] PCP - General Family Medicine 04/01/23 Elvie Greer NP [address] [place] [address] Nurse Practitioner Family Medicine 04/01/23 Electrical Line Worker Relationship Specialty Start Date End Date Chris Pelaez MD [address] [place] [address] PCP - General Family Medicine 04/01/23 Elvie Greer NP [address] [place] [address] Nurse Practitioner Family Medicine 04/01/23 Electrical Line Worker Relationship Specialty Start Date End Date Chris Pelaez MD [address] [place] [address] PCP - General Family Medicine 04/01/23 Elvie Greer NP [address] [place] [address] Nurse Practitioner Family Medicine 04/01/23 Electrical Line Worker Relationship Specialty Start Date End Date Chris Pelaez MD [address] [place] [address] PCP - General Family Medicine 04/01/23 Elvie Greer NP [address] [place] [address] Nurse Practitioner Family Medicine 04/01/23 Electrical Line Worker Relationship Specialty Start Date End Date Chris Pelaez MD [address] [place] [address] PCP - General Family Medicine 04/01/23 Elvie Greer NP [address] [place] [address] Nurse Practitioner Family Medicine 04/01/23 Electrical Line Worker Relationship Specialty Start Date End Date Chris Pelaez MD [address] [place] [address] PCP - General Family Medicine 04/01/23 Elvie Greer NP [address] [place] [address] Nurse Practitioner Family Medicine 04/01/23 Electrical Line Worker Relationship Specialty Start Date End Date Chris Pelaez MD [address] [place] [address] PCP - General Family Medicine 04/01/23 Elvie Greer NP [address] [place] [address] Nurse Practitioner Family Medicine 04/01/23 Electrical Line Worker Relationship Specialty Start Date End Date Chris Pelaez MD [address] [place] [address] PCP - General Family Medicine 04/01/23 Elvie Greer NP [address] [place] [address] Nurse Practitioner Family Medicine 04/01/23 Electrical Line Worker Relationship Specialty Start Date End Date Chris Pelaez MD [address] [place] [address] PCP - General Family Medicine 04/01/23 Elvie Greer NP [address] [place] [address] Nurse Practitioner Family Medicine 04/01/23 Electrical Line Worker Relationship Specialty Start Date End Date Chris Pelaez MD [address] [place] [address] PCP - General Family [facility] 04/01/23 Elvie Greer NP [address] [place] [address] Nurse Practitioner Family Medicine 04/01/23 Electrical Line Worker Relationship Specialty Start Date End Date Chris Pelaez MD [address] [place] [address] PCP - General Family Medicine 04/01/23 Elvie Greer NP [address] [place] [address] Nurse Practitioner Family Medicine 04/01/23 Goals (unrecognized [...] BE BASED ON THE PRIMARY CLINICAL RECORDS. [facility]. provides no warranty or guarantee of the accuracy or completeness of information in this document.
--- NOTE | 2024-09-05 09:00 | CA_ITS ---
Patient Name: WILMER PENG MR#: [id number] : 1985 Exam Date: 09/05/2024 Ordering Doctor: KEYA GARLAND CNP ECHOCARDIOGRAM REPORT PROCEDURE: CA ECHO DOPPLER COMPLETE INDICATIONS: Abnormal ECG, palpitations COMPARISON: None. DESCRIPTION: COMPLETE ECHOCARDIOGRAM Real-time transthoracic echocardiography with 2D, M-mode, spectral and color flow Doppler performed. QUALITY: Technical quality was good. LEFT VENTRICLE: Normal chamber size. Normal left ventricular wall thickness. Normal left ventricular static function without wall motion abnormalities, calculated left ventricular ejection fraction is 62%. LV EF: Normal left ventricular ejection fraction, (>55%). DIASTOLIC: Normal diastolic function. ATRIAL SEPTUM: Visually appears intact. LEFT ATRIUM: Normal chamber size. RIGHT ATRIUM: Normal chamber size. RIGHT VENTRICLE: Normal chamber size. Normal right ventricular systolic function. TRICUSPID VALVE: Normal mobility and thickness. No stenosis with trivial regurgitation. No evidence of pulmonary hypertension. RVSP 25 mmHg MITRAL VALVE: Normal mobility and thickness. No evidence of mitral valve stenosis. There is no mitral annular calcification. No mitral regurgitation. AORTIC VALVE: Normal trileaflet appearance. No visible sclerosis. Normal leaflet mobility. No evidence of aortic valve stenosis. No aortic regurgitation. AORTIC ROOT: Normal diameter and appearance. Ascending aortais normal in size. PULMONIC VALVE: Normal thickness and mobility. No stenosis. Mild regurgitation. PERICARDIUM: No evidence of pericardial effusion. IVC: Collapes with inspirations. IVC is normal in size. PLEURA: CONCLUSION: Normal left ventricle cavity size, wall thickness, and systolic function without wall motion abnormalities, ejection fraction 62% Normal left ventricle diastolic function Normal right ventricle size and systolic function Normal right-sided pressures, RVSP 25 mmHg No significant valvular abnormalities Adult Echocardiography Procedure Report Left Ventricle LVEDD (3.7 - 5.6 cm): 5.22 cm LVESD (2.2 - 4.0 cm): 3.52 cm LVIVS thickness (0.6 - 1.2 cm): 0.65 cm LVPW thickness (0.5 - 1.0 cm): 0.81 cm e': 0.15 m/s E - e': 6.92 LVOT Max Gradient: 3.47 mm[Hg] LVOT Area (cm2): 0.93 m/s Peak Velocity (LVOT): 0.93 m/s Mean Velocity (LVOT): LVOT Diameter 2.12 cm Left Ventricular Ejection Fraction: 61.52 % Left Atrium LA Volume Index (2D A2C): 23.71 ml/m2 Left Atrium Systolic Dimension: 3.88 cm Mitral Valve MV E to A Ratio: 1.51 MV Max Gradient: MV Mean Gradient: Mitral Valve A-Wave Peak Velocity: 0.67 m/s Mitral Valve E-Wave Peak Velocity: 1.01 m/s Cardiovascular Orifice Area: Right Ventricle RV Internal Diastolic Dimension: Aorta AO Root Diam: 2.93 cm Ascending Ao Diam: 2.59 cm Aortic Valve AoV Area (Peak Carmelo): 2.52 cm2, 2.52 cm2 AoV Area (VTI): Deceleration [place]: Pressure Half-Time: Peak Velocity(Antegrade Flow): 1.31 m/s Peak Gradient(Antegrade Flow): 6.87 mm[Hg] Mean Velocity(Antegrade Flow): Mean Gradient(Antegrade Flow): Velocity Time Integral: Tricuspid Valve Peak Velocity (Regurgitant Flow): 2.36 m/s Peak Velocity: Pulmonic Valve Mean Gradient: Mean Velocity: Peak Velocity: Peak Gradient: 4.08 mm[Hg], 4.44 mm[Hg] Right Atrium Right Atrium Systolic Pressure: 54.89 ml, 54.89 ml Dictated by: Harriet Jung MD on 09/05/2024 at 14:12 Approved by: Harriet Jung MD on 09/05/2024 at 14:17
== END 2024-09-05 08:27 | disposition home or self-care (01) ==
LOC: CARD 08:26
PROVIDERS: PCP Nurse Practitioner; Visit Provider Nurse Practitioner
DX: R94.31 Abnormal electrocardiogram [ECG] [EKG] (principal); I49.9 Cardiac arrhythmia, unspecified
CPT/HCPCS: 93306

== ENCOUNTER 2024-09-21 10:54 | Outpatient (OUT) | payer OTHER, SELFPAY ==
--- OUTSIDE RECORDS SUMMARY | 2024-09-07 11:00 | XMS_ITS | Encounter Summary ---
Author Organization [facility] Address [address] [place] [address] Care Team Providers Care Desktop Publishing Specialist Name Role Phone Elvie Greer CERTIFIED ALCOHOL AND DRUG COUNSELOR Unavailable [phone] Chris Pelaez MD Primary Care Provider [phone] Reason for Visit * Reason Comments Allergy Testing Pt wants environment al allergy testing she was allergic as a kid for many outdoor allergies and did shots * Consultation (Routine) - Closed Specialty Diagnoses / Procedures Referred By Contluis t Referred To Contact Allergy and Immunology Diagnoses Environmental and seasonal allergies Procedures MA OFFICE/OUTPATIENT [facility] MDM 60 MINUTES Elvie Greer, JONN [address] [place] [address] Phone: tel: fax: Arnaud Cordova MD [address] [address] Phone: tel: fax: Referral ID Status Reason Start Date Expiration Date V isits Requested Visits Authorized [id number] Closed Specialty Services Required 08/08/2024 02/04/2025 1 1 Encounter Details Date Type Department Care Team (Latest Contact Info) Description 09/07/2024 11:00 AM EDT Office Visit [facility] [address] [facility] [address] [place] [address] Arnaud Cordova MD [address] [facility] [address] [id number] Environmental and seasonal allergies (Primary Dx); Mild intermittent asthma with (acute) exacerbation (HCC) Social History Tobacco Use Types Packs/Day Years Used Date Smoking Tobacco: Never Smokeless Tobacco: Never Tobacco Cessation:Counseling Given: Not Answered Alcohol Use Standard Drinks/Week Comments Never 0 [...] How often do you attend chur or yazdanism services? Never 04/06/2023 Do you belong to any clubs o r organizations such as mu-ism groups, unions, fraternal [...] Recorded Patient Health Questionnaire-2 Score 0 08/31/2023 [facility] - Occupational Stress Questionnaire Answer Date [...] place to sleep or slept in a correction (including now)? No 04/06/2023 Comments Unknown Sex and Gender Information Value Date Recorded Sex Assigned at Not on file Legal Sex Female 6:44 PM EDT Gender Identity Female 03/31/2023 2:50 PM EST Sexual Orientation Not on file documented as of this encounter Last Filed Vital Signs Vital Sign Reading Time Taken Comments Blood Pressure - - Pulse - - Temperature - - Respiratory Rate - - Oxygen Saturation - - Inhaled Oxygen Concentration - - Weight 133 kg (294 lb) 09/07/2024 10:50 AM EDT Height - - Body Mass Index 47.45 06/22/2024 4:08 PM EDT documented in this encounter Progress Notes * Arnaud Cordova MD - 09/07/2024 11:00 AM EDT Tereza Navarro is a very pleasant 38 y.o. year old female who comes to the office today with the chief complaint of concern about environmental allergies. She had environmental allergy growing up and had positive skin testing and did allergen immunotherapy until age 16 and then stopped and has been taking OTC meds since then. Her symptoms have been worse recently. She takes meds all year long. She has symptoms of sneeze rhinorrhea itchy watery eyes ear itching and occasional wheeze. She has a history of asthma symptoms. She takes Symbicort for this. Cetirizine makes her allergic rhinoconjunctivitis symptoms about 10% better. Her symptoms tend to be worse spring and fall but present year round. She has 2 dogs and works with[employer]. She feels pollen is a trigger for her. Asthma control test today is 14. Montelukast levothyroxine hydroxyzine Pepcid Symbicort albuterol The patient appears comfortable in the office today. Lungs are clear to auscultation bilaterally. The oral mucosa is pink and healthy without any lesions or ulcers. The palate elevates in the midline. The nasal mucosa is pale and congested with a moderate amount of turbinate engorgement and clear rhinorrhea. No polyps or epistaxis is noted. The skin is clear of any rashes, lesions, or ulceration/excoriation. Spirometry performed in the office today under direct physician supervision shows an FEV1 of 95 percent of ideal with no scooping of the flow volume loop. Asthma control test in the office today is 14. Her exhaled nitric oxide is 15 parts per billion. IMPRESSION: Mild intermittent asthma - I provided reassurance regarding her normal breathing studies and suggested she increase her Symbicort to 2 puffs on a b.I.d. basis and then have her follow up in 2 months and repeat her asthma control test and see if her symptoms have improved at that time. Chronic rhinitis - Skin testing was unable to be performed in the office today as she had recently taken hydroxyzine. We agreed she would try a combination of nasal ipratropium along with nasal azelastine for relief of her rhinitis symptoms and follow up in 2 months to perform skin testing for common environmental allergens or sooner should problems arise. documented in this encounter Plan of Treatment Upcoming Encounters Date Type Department Care Team (Late st Contact Info) Description 10/10/2024 2:00 PM EDT Office Visit [facility] [address] [place] [address] Elvie Greer, CERTIFIED ALCOHOL AND DRUG COUNSELOR [address] [place] [address] 11/16/2024 11:00 AM EDT Office Visit [facility] [address] [place] [address] [place] [address] Arnaud Cordova MD [address] [place] [address] [place] [address] 02/22/2025 1:15 PM EST Office Visit [facility] [address] [place] [phone] Tani Pimentel, DO [address] [place] [address] 06/05/2025 11:00 AM EDT Office Visit [facility] [address] [facility] [place] [address] Javier Morales DO [address] [facility] [place] [address] documented as of this encounter Visit Diagnoses Diagnosis Environmental and seasonal allergies- Primary Mild intermittent asthma with (acute) exacerbation (HCC) documented in this encounter Care Teams Desktop Publishing Specialist Relationship Specialty Start Date End Date Chris Pelaez MD [address] [place] [address] PCP - General Family Medicine 04/01/23 Elvie Greer NP [address] [place] [address] Nurse Practitioner Family Medicine 04/01/23 documented as of this encounter
--- OUTSIDE RECORDS SUMMARY | 2024-09-11 08:10 | XMS_ITS | Encounter Summary ---
Author Organization [facility] Address [address] [place] [address] Care Team Providers Care Certified Physician'S Assistant Name Role Phone Amadorfahadmicha Elvie ARCHITECTURAL SUPERINTENDENT Unavailable [phone] Chris Pelaez MD Primary Care Provider [phone] Encounter Details Date Type Department Care Team (Late st Contact Info) Description 09/11/2024 8:10 AM EDT Office Visit [facility] [address] [place] [address] Javier Morales, DO [address] [place], [id number] Hormone disorder (Primary Dx) Social History Tobacco Use Types [...] How often do you attend chur or anglican services? Never 04/06/2023 Do you belong to any clubs o r organizations such as sikh groups, unions, fraternal or athletic groups, or [...] Recorded Patient Health Questionnaire-2 Score 0 08/31/2023 [facility] Answer Date [...] on file documented as of this encounter Progress Notes * Cherry Amezcua NP - 09/11/2024 8:10 AM EDT Reason for Appointment: Patient ID: Tereza Navarro is a 38 y.o. female who presents for No chief complaint on file. Patient presents today via telephone call for a telehealth appointment. Patients Phone #: [phone] (mobile) Date: 09/11/2024 Time: 10:41 AM of the visit Platform Used: Audio call performed via in house telephone system. Location of Patient and Provider: Patient at home, provider at clinic Consent for Telehealth: Patient provided verbal consent to conduct the visit virtually via audio only phone call Current Medications: has a current medication list which includes the following prescription(s): albuterol hfa, azelastine, budesonide-formoterol, bupropion xl, celecoxib, estradiol, famotidine, hydroxyzine pamoate, ipratropium, levothyroxine, montelukast, pantoprazole, potassium, and progesterone. Medical History: Active Ambulatory Problems Diagnosis Date Noted Arthritis of knee, right 04/01/2023 Anxiety and depression 04/01/2023 Elevated glucose 04/01/2023 GERD (gastroesophageal reflux disease) 04/01/2023 Hair loss 04/01/2023 Hypomagnesemia 04/01/2023 Leg cramps 04/01/2023 Liver function abnormality 04/01/2023 Painful lumpy right breast 04/01/2023 Psoriasis 04/01/2023 Acute postoperative pain of right knee 04/01/2023 Body mass index (BMI) 45.0-49.9, adult ([facility]) 04/13/2023 Ventral hernia without obstruction or gangrene 08/31/2023 Mild persistent asthma without complication ([facility]) 02/08/2024 Morbid (severe) obesity due to excess calories ([facility]) 02/08/2024 Encounter for screening mammogram for malignant neoplasm of breast 02/08/2024 Status post right knee replacement 02/22/2024 Difficulty walking 02/22/2024 Hypothyroid 05/09/2024 Other constipation 05/09/2024 Heart palpitations 06/20/2024 Ventricular arrhythmia 08/03/2024 Environmental and seasonal allergies 08/08/2024 Resolved Ambulatory Problems Diagnosis Date Noted Internal derangement of right knee 04/01/2023 History of knee problem 03/27/2020 Borderline abnormal thyroid function test 04/01/2023 Intermittent asthma without complication (HCC) 04/01/2023 Moderate persistent asthma without complication ([facility]) 04/01/2023 Umbilical hernia 04/01/2023 Acute medial meniscal tear 04/01/2023 Abnormal TSH 05/18/2023 Non-recurrent acute suppurative otitis media of left ear without spontaneous rupture of tympanic membrane 05/18/2023 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/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 Cellulitis 08/31/2023 Past Medical History: Diagnosis Date Anxiety Arthritis Asthma ([facility]) COVID-19 virus detected Depression Aura's disease Morbid obesity with BMI of 50.0-59.9, adult ([facility]) 04/13/2023 Family History Problem Relation Name Age of Onset Asthma Mother Susy castellanos Diabetes Mother Susy castellanos Osteoarthritis Mother Susy castellanos Asthma Father Zeferino Castellanos Asthma Sister Ana [place] ADD / ADHD Brother Cancer Other grandmother grandfather Bone cancer Lymphoma Other grandmother Social History Tobacco Use Smoking status: Never Smokeless tobacco: Never Vaping Use Vaping status: Never Used Substance Use Topics Alcohol use: Never Drug use: Never Past Surgical History: Procedure Laterality Date GALLBLADDER SURGERY Laparoscopic HERNIA REPAIR Umbilical KNEE ARTHROPLASTY Right 02/21/2024 MTP MENISCECTOMY Right 02/28/2020 Dr Garcia OTHER SURGICAL HISTORY 2009 Procedure:NUBAIN & PHENERGAN;Disease:ACUTE CHOLEYCYSTITIS TONSILLECTOMY 05/11/2007 and Adenoidectomy Allergies Allergen Reactions Antihistamines, Diphenhydramine-Type Prednisone Diphenhydramine Hives, Itching, Rash and Unknown Latex Hives, Itching, Rash and Unknown Vitals: Estimated body mass index is 47.45 kg/m² as calculated from the following: Height as of 06/22/24: 5' 6 . Weight as of 09/07/24: 294 lb. BP: No LMP recorded. Assessment/Plan No diagnosis found. Today's telehealth visit consisted of spending 5-7 minutes talking to patient on the phone. Patientreports that she does not like the patch and that it will not stay on. She has purchased an OTC menopause support and discussed the ingredient list and is appropriate and would like to trial this before starting a new Estrogen supplement. Documented by Cherry Amezcua NP on behalf of: Javier Morales DO documented in this encounter Plan of Treatment Upcoming Encounters Date Type Department Care Team (Late st Contact Info) Description 10/10/2024 2:00 PM EDT Office Visit [facility] [address] [place] [address] Elvie Greer NP [address] [place] [address] 11/16/2024 11:00 AM EDT Office Visit [facility] [address] [place] [address] Arnaud Cordova MD [address] [place] [address] 02/22/2025 1:15 PM EST Office Visit [facility] [address] [phone] Tani Pimentel, DO [address] [place] [address] 06/05/2025 11:00 AM EDT Office Visit [facility] [address] [place] [id number] Javier Morales, DO [address] [place] [address] documented as of this encounter Visit Diagnoses Diagnosis Hormone disorder- Primary Unspecified endocrine disorder documented in this encounter Care Teams Certified Physician'S Assistant Relationship Specialty Start Date End Date Chris Pelaez MD [address] [place] [address] PCP - General Family Medicine 04/01/23 Elvie Greer NP [address] [place] [address] Nurse Practitioner Family Medicine 04/01/23 documented as of this encounter
--- OUTSIDE RECORDS SUMMARY | 2024-09-15 14:40 | XMS_ITS | Encounter Summary ---
Author Organization [facility] Address [address] [place] [address] Care Team Providers Care Application Technical Designer Name Role Phone Elvie Greer MD Primary Care Provider [phone] Reason for Visit * Reason Comments Palpitations Has palpitations and SOB with rest. Has Aura's thyroid disease. Recent Holter monitor showed runs of VT, so PCP ordered stress test. Shortness of Breath Says her BP usually runs around 140/90. 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 Social History Tobacco Use Types Packs/Day Years Used Date Smoking Tobacco: Never Smokeless Tobacco: Never Tobacco Cessation:Counseling Given: Not Answered Alcohol Use Standard Drinks/Week Comments Yes 0 (1 standard drink = 0.6 oz pur e alcohol) occasional Comments Unknown Sex and Gender Information Value Date Recorded Sex Assigned at Female 09/13/2024 9:07 AM EDT Legal Sex Female 2:23 PM EDT Gender Identity Female 09/13/2024 9:07 AM EDT Sexual Orientation Heterosexual or Straight 11/2024 9:07 AM EDT documented as of this encounter Last Filed Vital Signs Vital Sign Reading Time Taken Comments Blood Pressure 143/100 09/15/2024 2:56 PM EDT Pulse 91 09/15/2024 2:56 PM EDT Temperature - - Respiratory Rate - - Oxygen Saturation 98% 09/15/2024 2:56 PM EDT Inhaled Oxygen Concentration - - Weight 130 kg (287 lb) 09/15/2024 2:56 PM EDT Height 167.6 cm (5' 6 ) 09/15/2024 2:56 PM EDT Body Mass Index 46.32 09/15/2024 2:56 PM EDT documented in this encounter Progress Notes * Harriet Jung MD - 09/15/2024 2:40 PM EDT Images from the original note were not included. [facility] Note Reason for cardiology consult: Palpitation, V. tach, shortness of breath Chief Complaint: Shortness of breath and palpitation HPI: Tereza Navarro is a 38 y.o. female without prior cardiac history. 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 She reports that 2 to 3 months ago she started having palpitation when she feels that her heart racing associated with shortness of breath mostly on exertion and occasionally while she is sitting, generally lasts for 2 minutes or so, occasionally associated with slight dizziness. She reports exertional dyspnea. She denies any chest discomfort at rest or with exertion. She denies orthopnea or paroxysmal nocturnal dyspnea. She reports occasional legs edema. She reports dizziness or syncope in standing position. She reports that when she was younger she used to have a syncopal episode for many years usually when she gets IV access but that resolved. She does not think that the above symptoms are related to her asthma because it is really mild. Patient does not think that she snores or stops breathing during the night. She reports fatigue/ tiredness during the daytime. She never been evaluated for sleep apnea She never been a smoker. She denies alcohol or illicit drugs. Regarding family history maternal grandmother had congestive heart failure, paternal grandfather had enlarged heart, sister with history of hypertension Cardiology ROS: GENERAL: Denies fever, chills, night sweats, weight loss. HEENT: Denies changes in vision, photophobia, changes in hearing, epistaxis, oral bleeding. CARDIOVASCULAR: Patient reports palpitation and shortness of breath and occasional dizziness as described above. She reports occasional edema. Denies chest pain, orthopnea/PND RESPIRATORY: Denies SOB, coughing, wheezing GI: Denies abdominal pain, nausea/vomiting, heartburn, melena/hematochezia. RENAL: Denies dysuria, hematuria, flank pain. MSK: Denies muscle weakness/pain, arthralgias/joint pain. NEUROLOGIC: Denies LOC, weakness, numbness, headaches. SKIN: Denies abnormal rashes or bleeding. PSYCH: Denies significant anxiety, depression, sleep disturbances. Past Medical History She has a past medical history of Abnormal ECG, Arrhythmia, and Aura's disease. Surgical History She has a past surgical history that includes Total knee arthroplasty; Knee surgery; Hernia repair;and Cholecystectomy. Social History She reports that she has never smoked. She has never used smokeless tobacco. She reports current alcohol use. No history on file for drug use. Family History Family History[1] Allergies Prednisone; Diphenhydramine; and Latex, natural rubber Medications Current Medications[2] Last Recorded Vitals Visit Vitals BP (!) 143/100 (BP Location: Left wrist, Patient Position: Sitting) Pulse 91 Ht 1.676 m (5' 6 ) Wt 130 kg (287 lb) SpO2 98% BMI 46.32 kg/m² Smoking Status Never BSA 2.46 m² Physical Examination: GENERAL: alert and oriented x3, well developed, in no acute distress. HEAD: atraumatic, normocephalic. EYES: CHARLY, EOMI. NECK: trachea midline, no JVD present, no carotid bruits present. CARDIAC: S1, S2 present. RRR. No murmur, rubs, or gallops. RESPIRATORY: CTAB, no increased effort of breathing, no rales, rhonchi, or wheezing. ABDOMEN: soft, nontender, nondistended. EXTREMITIES: no lower extremity edema, peripheral pulses are 2+ bilaterally. No rash/skin discoloration present. NEURO: strength/sensation equal and symmetric in bilateral upper and lower extremities. PSYCH: appropriate mood, affect, and judgement. Labs: 06/27/2024 Sodium 142, potassium 3.8, BUN 8, creatinine 0.67, GFR above 60, BUN 11.9, glucose 89, calcium 8.9,magnesium 1.7 05/10/2024 White blood count 8.5, hemoglobin 12.6, hematocrit 37.5, platelet 358 HbA1c 5.4% Total bilirubin 0.8, AST 17, ALT 21, alk phos 80, total protein 7.1, albumin 3.5 Triglycerides 51, cholesterol 193, LDL 102, HDL 81 TSH 3.547, free T40.78 Last Images: EKG 08/29/2024 showed normal sinus rhythm, poor R progression V1-V3, no significant T or ST changes Echo 09/05/2024 Stress test 08/29/2024 Event monitor 06/27/2024 - 07/03/2024 Assessment and Plan: Palpitations, 7 days event monitor showed evidence of sinus tachycardia, PVCs less than 1%, and what reported as 2 short runs of nonsustained V. Tach, however I looked at them: one of them was 4 beat ventricular run which was asymptomatic and the other 1 appears to be sinus rhythm with aberrant conduction. When the patient reported palpitations she was in sinus rhythm and sinus tachycardia Dyspnea on exertion which is probably multifactorial related to obesity, deconditioning and uncontrolled hypertension. Also the patient has history of asthma. 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 Anxiety/depression Mild asthma Plan: I will start her on Toprol-XL 50 mg daily to control the palpitation and hopefully hypertension I asked her to follow low-salt diet I asked her to check her blood pressure twice daily for 2 weeks and send me the log Patient was advised regarding following low-calorie low-carb diet and exercise in order to lose weight The patient was advised also to ask her about snoring and stopping breathing during the night Follow-up in 2 months [facility] MD[facility] [1] Family History Problem Relation Name Age of Onset Hypertension Sister Heart failure Maternal Grandmother Cardiomyopathy Paternal Grandfather [2] Current Outpatient Medications: albuterol 90 mcg/actuation inhaler, Inhale 2 puffs every 6 (six) hours if needed., Disp: , Rfl: budesonide-formoteroL (Symbicort) 160-4.5 mcg/actuation inhaler, Inhale 2 puffs twice a day., Disp:, Rfl: buPROPion XL (Wellbutrin XL) 300 mg 24 hr tablet, Take 300 mg by mouth in the morning., Disp: , Rfl: estradiol (Climara) 0.05 mg/24 hr, Place 1 patch on the skin 1 (one) time per week., Disp: , Rfl: famotidine (Pepcid) 20 mg tablet, Take 20 mg by mouth at bedtime., Disp: , Rfl: hydrOXYzine pamoate (Vistaril) 25 mg capsule, TAKE 1 CAPSULE BY MOUTH EVERY 8 HOURS NEEDED for itching, Disp: , Rfl: levothyroxine (Synthroid, Levoxyl) 100 mcg tablet, Take 100 mcg by mouth before breakfast., Disp: ,Rfl: magnesium oxide (Mag-Ox) 400 mg (241.3 mg magnesium) tablet, Take 1 tablet by mouth in the morning., Disp: , Rfl: montelukast (Singulair) 10 mg tablet, Take 10 mg by mouth at bedtime., Disp: , Rfl: pantoprazole (ProtoNix) 40 mg EC tablet, Take 40 mg by mouth before breakfast., Disp: , Rfl: progesterone (Prometrium) 100 mg capsule, take 1 capsule (100 mg) by mouth daily, Disp: , Rfl: documented in this encounter Plan of Treatment Upcoming Encounters Date Type Department Care Team (Late st Contact Info) Description 11/30/2024 10:40 AM EDT Office Visit [facility] [address] [place] [address] Harriet Jung MD [address] [place] [address] documented as of this encounter Visit Diagnoses Diagnosis Palpitations- Primary Aortic valve disorder Aortic valve disorders Essential hypertension Unspecified essential hypertension Body mass index (BMI) 45.0-49.9, adult ([facility]/HCC) 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
--- OUTSIDE RECORDS SUMMARY | 2024-09-21 10:56 | XMS_ITS | Encounter Summary ---
Author Organization [facility] Address [address] [facility] [place] [address] Care Team Providers Care High School Music Instructor Name Role Phone Elvie Greer NP Unavailable [phone] Chris Pelaez MD Primary Care Provider [phone] Encounter Details Date Type Department Care Team (Late st Contact Info) Description 04/28/2023 Abstract [facility] [address] [place] [place] [address] Vivek Dickinson COMPTOMETRIST [address] [place] [address] Social History Tobacco Use Types [...] any clubs o r organizations such as catholic groups, unions, fraternal or athletic groups, or [...] Recorded Patient Health Questionnaire-2 Score 2 04/13/2023 [facility] Answer Date [...] EDT Office Visit [facility] [address] [place] [address] Elvie Greer NP [address] [place] [address] 11/16/2024 11:00 AM EDT Office Visit [facility] [address] [place] [address] Arnaud Cordova MD [address] [place] [address] 02/22/2025 1:15 PM EST Office Visit [facility] [address] [facility] [place] [address] Tani Pimentel, DO [address] [place] [address] 06/05/2025 11:00 AM EDT Office Visit [facility] [address] [place] [address] Javier Morales, [address] [facility] [address] [place], [place] [id number] documented as of this encounter Visit Diagnoses Not on filedocumented in this encounter Care Teams High School Music Instructor Relationship Specialty Start Date End Date Chris Pelaez MD [address] [place] [address] PCP - General Family Medicine 04/01/23 Elvie Greer NP [address] [place] [address] Nurse Practitioner Family Medicine 04/01/23 documented as of this encounter
--- OUTSIDE RECORDS SUMMARY | 2024-09-21 10:56 | XMS_ITS | Encounter Summary ---
Author Organization [facility] Address [address] [place] [address] Care Team Providers Care Purification Operator Name Role Phone Elvie Greer NP Unavailable [phone] Chris Pelaez MD Primary Care Provider Encounter Details Date Type Department Care Team (Late st Contact Info) Description 04/01/2023 Orders Only [facility] [address] [place] [phone] Social History Tobacco Use Types Packs/Day Years [...] 2:00 PM EDT Office Visit [facility] [address] [place] [phone] Elvie Greer, POLITICAL WORKER [address] [place] [address] 11/16/2024 11:00 AM EDT Office Visit [facility] [address] [place] [phone] Arnaud Cordova MD [address] [facility] [address] [place] [address] 02/22/2025 1:15 PM EST Office Visit [facility] [address] [place] [phone] Tani Pimentel, DO [address] [place] [address] 06/05/2025 11:00 AM EDT Office Visit [facility] [address] [place] [address] Javier Morales, DO [address] [address] documented as of this encounter Visit Diagnoses Not on filedocumented in this encounter Care Teams Purification Operator Relationship Specialty Start Date End Date Chris Pelaez MD [address] [place] [address] PCP - General Family Medicine 04/01/23 Elvie Greer NP [address] [place] [address] Nurse Practitioner Family Medicine 04/01/23 documented as of this encounter
--- OUTSIDE RECORDS SUMMARY | 2024-09-21 10:56 | XMS_ITS | Clinical Summary ---
Author Organization [facility] Address [address] [place] [address] Care Team Providers Care Chef German Name Role Phone Elvie Greer MD Primary Care Provider [phone] Allergies Active Allergy Reactions Criticality Noted Date Comments Diphenhydramine Hives,Itching,Rash,Unknown Low 05/2019 Latex, Natural Rubber Hives,Itching,Rash,Unknown Low 08/09/2019 Prednisone Unknown 04/01/2023 Medications albuterol 90 mcg/actuation inhaler Inhale 2 puffs every 6 (six) hours if needed. 09/30/2023 Active budesonide-form oteroL (Symbicort) 160-4.5 mcg/actuation inhaler Inhale 2 puffs twice a day. 05/09/2024 Active buPROPion XL (Wellbutrin XL) 300 mg 24 hr tablet Take 300 mg by mouth in the morning. Active estradiol (Climara) 0.05 mg/[address] 1 patch on the skin 1 (one) time per week. Active famotidine (Pepcid) 20 mg tablet Take 20 mg by mouth at bedtime. Active hydrOXYzine pamoate (Vistaril) 25 mg capsule TAKE 1 CAPSULE BY MOUTH EVERY 8 HOURS NEEDED for itching Active levothyroxine (Synthroid, Levoxyl) 100 mcg tablet Take 100 mcg by mouth before breakfast. Active magnesium oxide (Mag-Ox) 400 mg (241.3 mg magnesium) tablet Take 1 tablet by mouth in the morning. 09/05/2024 Active montelukast (Singulair) 10 mg tablet Take 10 mg by mouth at bedtime. Active pantoprazole (ProtoNix) 40 mg EC tablet Take 40 mg by mouth before breakfast. Active progesterone (Prometrium) 100 mg capsule take 1 capsule (100 mg) by mouth daily Active metoprolol succinate XL (Toprol-XL) 50 mg 24 hr tabletIndicatio ns:Palpitations Take 1 tablet (50 mg) by mouth once daily as directed. Do not crush or chew. 90 tablet 3 09/15/2024 Active Active Problems Problem Noted Date Diagnosed Date Aortic valve disorder 09/17/2024 Essential hypertension 09/17/2024 Environmental and seasonal allergies 08/08/2024 Ventricular arrhythmia 08/03/2024 Palpitations 06/20/2024 Hypothyroid 05/09/2024 Other constipation 05/09/2024 Difficulty walking 02/22/2024 Status post right knee replacement 02/22/2024 Encounter for screening mamm ogram for malignant neoplasm of breast 02/08/2024 Mild persistent asthma without complication 05/2023 Morbid (severe) obesity due to excess calories 1 04/10/2023 Ventral hernia without obstruction or gangrene 0 08/31/2023 Body mass index (BMI) 45.0-49.9, adult 4 Acute postoperative pain of right knee 4 Anxiety and depression 04/01/2023 Arthritis of knee, right 04/01/2023 Elevated glucose 04/01/2023 GERD (gastroesophageal reflux disease) 4 Hair loss 04/01/2023 Hypomagnesemia 04/01/2023 Leg cramps 04/01/2023 Liver function abnormality 04/01/2023 Painful lumpy right breast 04/01/2023 Psoriasis 04/01/2023 Encounters Date Type Department Care Team Description 09/15/2024 2:40 PM EDT Office Visit [facility] [place] [address] [place] [address] Harriet Jung MD Palpitations (Primary Dx); Aortic valve disorder; Essential hypertension; Body mass index (BMI) 45.0-49.9, adult (CMS/HCC); 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 from Last 3 Months Family History Medical History Relation Name Comments Heart failure Maternal Grandmother Cardiomyopathy Paternal Grandfather Hypertension Sister Relation Name Status Comments Maternal Grandmother Paternal Grandfather Sister Social History Tobacco Use Types Packs/Day Years [...] Heterosexual or Straight 11/2024 9:07 AM EDT Last Filed Vital Signs Vital Sign Reading [...] Mass Index 46.32 09/15/2024 2:56 PM EDT Plan of Treatment Upcoming Encounters Date Type Department Care Team (Late st Contact Info) Description 11/30/2024 10:40 AM EDT Office Visit [facility] at [facility] [address] [place] [address] Harriet Jung MD [address] [place] [address] Health Maintenance Due Date Last Done Comments Depression Screening 1995 Varicella Vaccines (1 of 2 - 13+ 2-dose series) 11/18/1996 Hepatitis B Vaccines (1 of 3 - 19+ 3-dose series) 11/18/2002 Pneumococcal Vaccine: Pediatrics (0 to 5 Years) and At-Risk Patients (6 to 64 Years) (1 of 2 - PCV) 11/18/2002 Adult Tetanus 11/18/2005 HPV/Cotest 11/18/2013 COVID-19 Vaccine (4 2023-2 5 season) 2023 01/10/2021, 07/09/2020, 06/11/2020 Mammogram 2023 Influenza Vaccine (#1) 2024 , 10/29/2022 Cervical Cancer Screening 05/31/2027 Pap Smear 05/31/2027 05/30/2024 Zoster Vaccines (1 of 2) 11/18/2033 HIB Vaccines Aged Out No longer eligi ble based on patient's age to complete this topic HPV Vaccines Aged Out No longer eligi ble based on patient's age to complete this topic IPV Vaccines Aged Out No longer eligi ble based on patient's age to complete this topic Meningococcal B Vaccine Aged Out No l onger eligible based on patient's age to complete this topic Meningococcal Vaccine Aged Out No tono ambika eligible based on patient's age to complete this topic Rotavirus Vaccines Aged Out No longer eligible based on patient's age to complete this topic Insurance [employer] [place] [id number] Care Teams Chef German Relationship Specialty Start Date End Date Elvie Greer MD [address] [place] [id number] PCP - General Nurse Practitioner 09/06/24
--- OUTSIDE RECORDS SUMMARY | 2024-09-21 10:56 | XMS_ITS | Encounter Summary ---
Author Organization [facility] Address [address] [place] [address] Care Team Providers Care Vacuum Furnace Operator Name Role Phone Unavailable Primary Care Provider Unavailabl e Source Comments In the event this information is protected by the Federal Confidentiality of Alcohol and Drug AbusePatient Records regulations: The Federal rules restrict any use of the information to criminally investigate or prosecute any alcohol or drug abuse patient.[facility] Reason for Visit * Reason Comments Received Outside Medical Records Encounter Details Date Type Department Care Team (Late st Contact Info) Description 10/06/2023 Telephone [facility] [place] [address] [place] [address] [place] [address] [place] [phone] Received Outside Medical Records Social History Tobacco [...] Fax Outside Orthopedic Medical records received from [facility] Form has been forwarded to: Scanned to Chart for review Cecelia Boles documented in this encounter Plan of Treatment Not on file documented as of this encounter Visit Diagnoses Not on filedocumented in this encounter
--- OUTSIDE RECORDS SUMMARY | 2024-09-21 10:57 | XMS_ITS | Encounter Summary ---
Author Organization [facility] Address [address] [place] [address] Care Team Providers Care Analyst Business Analysis Name Role Phone Elvie Greer NP Unavailable [phone] Chris Pelaez MD Primary Care Provider [phone] Encounter Details Date Type Department Care Team (Late st Contact Info) Description 02/21/2024 Clinisync Result Encounter [facility] External Department Unsolicited Tani Pimentel, DO [address] [place] [address] Social History Tobacco Use Types Packs/Day Years [...] often do you attend chur ch or yazidism services? Never 04/06/2023 Do you belong to any clubs o r organizations such as roman catholic groups, unions, fraternal or athletic groups, [...] Recorded Patient Health Questionnaire-2 Score 0 08/31/2023 [facility] - Occupational [...] place to sleep or slept in a custodial (including now)? No 04/06/2023 Comments Unknown Sex [...] EDT Office Visit [facility] [address] [place] [address] Elvie Greer NP [address] [place] [address] 11/16/2024 11:00 AM EDT Office Visit [facility] [address] [place] [address] Arnaud Cordova MD [address] [place] [address] 02/22/2025 1:15 PM EST Office Visit [facility] [address] [place] [address] Tani Pimentel, [address] [place] [address] 06/05/2025 11:00 AM EDT Office Visit [facility] [address] [place] [address] Javier Morales, DO [address] [place] [address] documented as of this encounter Procedures Procedure [...] DAP = na Procedure Note Radiology, Radiologist, MD - 02/21/2024 Exam Date/Time: 02/21/2024 12:40 EST [...] on filedocumented in this encounter Care Teams Analyst Business Analysis Relationship Specialty Start Date End Date Chris Pelaez MD [address] [place] [phone] PCP - General Family Medicine 04/01/23 Elvie Greer NP [address] [place] [address] Nurse Practitioner Family Medicine 04/01/23 documented as of this encounter
--- OUTSIDE RECORDS SUMMARY | 2024-09-21 10:57 | XMS_ITS | Clinical Summary ---
Author Organization [facility] Address [address] [place] [address] Care Team Providers Care Principal Web Developer Name Role Phone Unavailable Primary Care Provider [...] season) 2023 Mammogram Screening 2023 Influenza Vaccine (#1) 2024 Insurance [employer]
--- OUTSIDE RECORDS SUMMARY | 2024-09-21 10:57 | XMS_ITS | Clinical Summary ---
Author Organization [employer] Address [id number] [address] [place] [address] Care Team Providers Care Resident Care Aide Name Role Phone AmadorElvie francis BARREL POLISHER-WHIRLEY OPERATOR Primary Care Provider Allergies Active Allergy Reactions [...] on file Insurance [employer] Care Teams Resident Care Aide Relationship Specialty Start Date End Date Elvie Greer, BARREL POLISHER-WHIRLEY OPERATOR PCP - General Nurse Practitioner 08/03/19
--- OUTSIDE RECORDS SUMMARY | 2024-09-21 10:57 | XMS_ITS | Clinical Summary ---
Author Organization [facility] Address [address] [place] [address] Care Team Providers Care Nurse Charge Rn Name Role Phone Percy Elvie MICRO PHOTOGRAPHER Unavailable [phone] Chris Pelaez MD Primary Care Provider [phone] Allergies Active Allergy Reactions Criticality Noted Date [...] morning. Take before meals. 90 tablet 5 10/11/19 25 Active estradiol (Climara) 0.05 MG/24HRIndication s:Hormone disorder Place 1 patch over 7 days on the skin 1 (one) time per week 12 patch 3 5 08/08/19 26 Active progesterone (Prometrium) 100 MG capsuleIndication s:Hormone disorder Take 1 capsule (100 mg) by mouth Daily 90 capsule 3 5 11/06/19 25 Active celecoxib (CeleBREX) 200 MG capsule Take 200 mg by mouth Daily 5 Active azelastine (Astelin) 0.1 % nasal sprayIndications: Environmental and seasonal allergies Administer 2 sprays into each nostril in the morning and 2 sprays before bedtime. Use in each nostril as directed. 90 mL 3 5 09/08/19 26 Active ipratropium (Atrovent) 0.06 % nasal sprayIndications: Environmental and seasonal allergies Administer 2 sprays into each nostril in the morning and 2 sprays in the evening and 2 sprays before bedtime. 45 mL 11 12/07/19 25 Active Active Problems Problem Noted Date Diagnosed Date Environmental and seasonal allergies 08/08/2024 Assessment & Plan (08/08/2024 2:59 PM EDT): Sxs not controlled w antihistamines and nasal steroids Used to take allergy injections in the past Will refer to folder machine operator for evaluation Ventricular arrhythmia 08/03/2024 Assessment [...] Encounters Date Type Department Care Team Description 09/11/2024 8:10 AM EDT Office Visit [facility] [address] [place] [phone] Tien Morales DO Hormone disorder (Primary Dx) 09/11/2024 Bamboo flowsheet [facility] [address] [place] [address] Tien Morales DO 09/07/2024 11:00 AM EDT Office Visit [facility] [address] [place] [address] Arnaud Cordova MD Environmental and seasonal allergies (Primary Dx); Mild intermittent asthma with (acute) exacerbation (HCC) 09/07/2024 Travel 09/06/2024 Telephone [facility] [address] [place] [address] Elvie Greer, JONN 09/05/2024 Clinisync Result Encounter [facility] External Department Unsolicited Elvie Greer, JONN 09/05/2024 Clinisync Result Encounter NOMS External Department Unsolicited Elvie Greer, MICRO PHOTOGRAPHER 08/31/2024 Abstract [facility] [address] [place] [address] Elvie Greer, JONN 08/08/2024 2:20 PM EDT Office Visit [facility] [address] [place] [address] Elvie Greer, JONN Heart palpitations (Primary Dx); Ventricular arrhythmia; Gastroesophageal reflux disease, unspecified whether esophagitis present; Morbid (severe) obesity due to excess calories ([facility]); Anxiety and depression ; Environmental and seasonal allergies; Moderate persistent asthma without complication ([facility]) 08/08/2024 Bamboo flowsheet [facility] [address] [place] [address] Elvie Greer, JONN 08/07/[address] [address] [place] [address] Tien Morales DO 08/07/2024 Orders Only [facility] [address] [place] [address] Elvie Greer, JONN 08/03/2024 11:40 AM EDT Office Visit [facility] [address] [place] [address] [place] [address] Tien Morales DO Hormone disorder 08/03/2024 Orders Only [facility] [address] [place] [address] Elvie Greer, JONN Heart palpitations (Primary Dx); Ventricular arrhythmia 08/03/2024 Orders Only [facility] [address] [place] [address] Elvie Greer, MICRO PHOTOGRAPHER Heart palpitations (Primary Dx); Morbid (severe) obesity due to excess calories ([facility]); Ventricular arrhythmia; Abnormal electrocardiogram (ECG) (EKG) 08/03/2024 Orders Only [facility] [address] [place] [address] Maura Greera, MICRO PHOTOGRAPHER 07/27/2024 Telephone [facility] [address] [place] [address] Maura Greera, MICRO PHOTOGRAPHER 07/24/2024 [facility]phone [facility] [address] [place] [address] Maura Greera, MICRO PHOTOGRAPHER 07/12/[address] [address] [place] [address] Tien Morales DO 07/12/2024 Refill [facility] [address] [place] [address] Elvie Greer, MICRO PHOTOGRAPHER Hypothyroidism, unspecified type (Primary Dx) 07/12/2024 Telephone [facility] [address] [place] [address] Elvie Greer, MICRO PHOTOGRAPHER 07/11/2024 Clinisync Result Encounter [facility]OM[facility] External Department Unsolicited Elvie Greer, MICRO PHOTOGRAPHER 07/03/2024 Telephone [facility] [address] [place] [address] Elvie Greer, MICRO PHOTOGRAPHER 06/27/2024 Refill [facility] [address] [place] [address] Elvie Greer, MICRO PHOTOGRAPHER Hypomagnesemia (Primary Dx) 06/27/2024 Clinisync Result Encounter [facility]OM[facility] External Department Unsolicited Elvie Greer, MICRO PHOTOGRAPHER 06/22/2024 3:45 PM EDT Office Visit [facility] [address] [place] [address] Tani Pimentel, DO Aftercare following right knee joint replacement surgery (Primary Dx) 06/22/2024 11:05 AM EDT Ancillary Procedure [facility] [address] [place] [phone] 06/22/2024 Travel 06/22/2024 Telephone [facility] [address] [place] [address] Elvie Greer NP from Last 3 Months Immunizations Immunization Administration [...] cancer Lymphoma Other grandmother Asthma Sister Ana Mckeon Relation Name Status Comments Brother Father Zeferino Britt Mother Susy britt Alive Other grandmother Sister Ana Mckeon Social History Tobacco Use Types Packs/Day Years [...] How often do you attend chur or congregational services? Never 04/06/2023 Do you belong to [...] Patient Health Questionnaire-2 Score 0 08/31/2023 [facility] - Occupational [...] place to sleep or slept in a alf (including now)? No 04/06/2023 Comments Unknown Sex [...] (294 lb) 09/07/2024 10:50 AM EDT Height 167.6 cm (5' 6 ) 06/22/2024 4:08 PM EDT Body Mass Index 47.45 06/22/2024 4:08 PM EDT Plan of Treatment Upcoming Encounters Date Type Department Care Team (Late st Contact Info) Description 10/10/2024 2:00 PM EDT Office Visit [facility] [address] [place] [address] Elvie Greer NP [address] [place] [address] 11/16/2024 11:00 AM EDT Office Visit [facility] [address] [place] [address] Arnaud Cordova MD [address] [place] [address] 02/22/2025 1:15 PM EST Office Visit [facility] [address] [place] [address] Tani Pimentel, DO [address] [place] [address] 06/05/2025 11:00 AM EDT Office Visit [facility] [address] [place] [phone] Tien Morales, DO [address] [place] [address] Health Maintenance Due Date Last Done Comments Influenza Vaccine (#1) 2024 12/22/2023, 2022 Mammogram 04/18/2025 04/18/2024 Cervical Cancer Screening 05/30/2029 HPV/Cotest 05/30/2029 Pap Smear 05/30/2029 05/30/2024, 05/27/2023 Procedures Procedure Name Priority Date/Time Associated Diagnosis Comments CA ECHO DOPPLER COMPLETE 09/05/2024 2:17 PM EDT NM MARVIN PERF SPECT REST STR 09/05/2024 1:42 PM EDT CARD HOLTER MONITOR RECORDING Routine 08/07/2024 11:08 [...] Aftercare following right knee joint replacement surgery PAP SMEAR Routine 05/30/2024 12:00 AM EDT MM TOMOSYNTHESIS SCREENING BI 04/18/2024 11:34 AM EST from Last 3 Months or Most Recently Relevant to Health Maintenance Results * CA ECHO DOPPLER COMPLETE (09/05/2024 2:17 PM EDT) Anatomical Region Laterality Modality Other 09/05/2024 2:17 PM EDT Narrative 09/05/2024 2:18 [place] [address] Cardiology Report Signed Patient: TEREZA NAVARRO MR#: [id number] : 1985 Acct:[id number] Age/Sex: 38 / F ADM Date: 09/05/24 Loc: CARD Attending Dr: Elvie Greer NP Ordering Physician: Elvie Greer NP Date of Service: 09/05/24 Procedure(s): CA echo doppler complete Accession Number(s): [id number] cc: Elvie Greer NP Patient Name: TEREZA NAVARRO MR#: [id number] : 1985 Exam Date: 09/05/2024 Ordering Doctor: KEYA GREER CNP ECHOCARDIOGRAM REPORT PROCEDURE: CA ECHO DOPPLER COMPLETE INDICATIONS: Abnormal ECG, palpitations COMPARISON: None. DESCRIPTION: COMPLETE ECHOCARDIOGRAM Real-time transthoracic echocardiography with 2D, M-mode, spectral and color flow Doppler performed. QUALITY: Technical quality was good. LEFT VENTRICLE: Normal chamber size. Normal left ventricular wall thickness. Normal left ventricular static function without wall motion abnormalities, calculated left ventricular ejection fraction is 62%. LV EF: Normal left ventricular ejection fraction, (>55%). DIASTOLIC: Normal diastolic function. ATRIAL SEPTUM: Visually appears intact. LEFT ATRIUM: Normal chamber size. RIGHT ATRIUM: Normal chamber size. RIGHT VENTRICLE: Normal chamber size. Normal right ventricular systolic function. TRICUSPID VALVE: Normal mobility and thickness. No stenosis with trivial regurgitation. No evidence of pulmonary hypertension. RVSP 25 mmHg MITRAL VALVE: Normal mobility and thickness. No evidence of mitral valve stenosis. There is no mitral annular calcification. No mitral regurgitation. AORTIC VALVE: Normal trileaflet appearance. No visible sclerosis. Normal leaflet mobility. No evidence of aortic valve stenosis. No aortic regurgitation. AORTIC ROOT: Normal diameter and appearance. Ascending aortais normal in size. PULMONIC VALVE: Normal thickness and mobility. No stenosis. Mild regurgitation. PERICARDIUM: No evidence of pericardial effusion. IVC: Collapes with inspirations. IVC is normal in size. PLEURA: CONCLUSION: Normal left ventricle cavity size, wall thickness, and systolic function without wall motion abnormalities, ejection fraction 62% Normal left ventricle diastolic function Normal right ventricle size and systolic function Normal right-sided pressures, RVSP 25 mmHg No significant valvular abnormalities Adult Echocardiography Procedure Report Left Ventricle LVEDD (3.7 - 5.6 cm): 5.22 cm LVESD (2.2 - 4.0 cm): 3.52 cm LVIVS thickness (0.6 - 1.2 cm): 0.65 cm LVPW thickness (0.5 - 1.0 cm): 0.81 cm e': 0.15 m/s E - e': 6.92 LVOT Max Gradient: 3.47 mm[Hg] LVOT Area (cm2): 0.93 m/s Peak Velocity (LVOT): 0.93 m/s Mean Velocity (LVOT): LVOT Diameter 2.12 cm Left Ventricular Ejection Fraction: 61.52 % Left Atrium LA Volume Index (2D A2C): 23.71 ml/m2 Left Atrium Systolic Dimension: 3.88 cm Mitral Valve MV E to A Ratio: 1.51 MV Max Gradient: MV Mean Gradient: Mitral Valve A-Wave Peak Velocity: 0.67 m/s Mitral Valve E-Wave Peak Velocity: 1.01 m/s Cardiovascular Orifice Area: Right Ventricle RV Internal Diastolic Dimension: Aorta AO Root Diam: 2.93 cm Ascending Ao Diam: 2.59 cm Aortic Valve AoV Area (Peak Carmelo): 2.52 cm2, 2.52 cm2 AoV Area (VTI): Deceleration [place]: Pressure Half-Time: Peak Velocity(Antegrade Flow): 1.31 m/s Peak Gradient(Antegrade Flow): 6.87 mm[Hg] Mean Velocity(Antegrade Flow): Mean Gradient(Antegrade Flow): Velocity Time Integral: Tricuspid Valve Peak Velocity (Regurgitant Flow): 2.36 m/s Peak Velocity: Pulmonic Valve Mean Gradient: Mean Velocity: Peak Velocity: Peak Gradient: 4.08 mm[Hg], 4.44 mm[Hg] Right Atrium Right Atrium Systolic Pressure: 54.89 ml, 54.89 ml Dictated by: Harriet Jung MD on 09/05/2024 at 14:12 Approved by: Harriet Jung MD on 09/05/2024 at 14:17 Dictated By: Harriet Jung M.D. Signed By: 09/05/24 1418 DD/ 141 TD/TT: Medical Biller Coder: Procedure Note Radiology, Radiologist, MD - 09/05/2024 [place] [address] Cardiology Report Signed Patient: TEREZA NAVARRO KMR#: [id number] : 1985Acct:[id number] Age/Sex: 38 / FADM Date: 09/05/24 Loc: CARD Attending Dr: Elvie Greer NP Ordering Physician: Elvie Greer NP Date of Service: 09/05/24 Procedure(s): CA echo doppler complete Accession Number(s): [id number] cc: Elvie Greer NP Patient Name: TEREZA NAVARRO MR#: [id number] : 1985 Exam Date: 09/05/2024 Ordering Doctor: KEYA GREER CNP ECHOCARDIOGRAM REPORT PROCEDURE: CA ECHO DOPPLER COMPLETE INDICATIONS: Abnormal ECG, palpitations COMPARISON: None. DESCRIPTION: COMPLETE ECHOCARDIOGRAM Real-time transthoracic echocardiography with 2D, M-mode, spectral and color flow Dopplerperformed. QUALITY: Technical quality was good. LEFT VENTRICLE: Normal chamber size. Normal left ventricular wall thickness. Normal left ventricular static function without wall motion abnormalities, calculated left ventricular ejection fraction is 62%. LV EF: Normal left ventricular ejection fraction, (>55%). DIASTOLIC: Normal diastolic function. ATRIAL SEPTUM: Visually appears intact. LEFT ATRIUM: Normal chamber size. RIGHT ATRIUM: Normal chamber size. RIGHT VENTRICLE: Normal chamber size. Normal right ventricularsystolic function. TRICUSPID VALVE: Normal mobility and thickness. No stenosis withtrivial regurgitation. No evidence of pulmonary hypertension. RVSP 25 mmHg MITRAL VALVE: Normal mobility and thickness. No evidence of mitralvalve stenosis. There is no mitral annular calcification. No mitralregurgitation. AORTIC VALVE: Normal trileaflet appearance. No visible sclerosis.Normal leaflet mobility. No evidence of aortic valve stenosis. No aortic regurgitation. AORTIC ROOT: Normal diameter and appearance. Ascending aortais normal in size. PULMONIC VALVE: Normal thickness and mobility. No stenosis. Mild regurgitation. PERICARDIUM: No evidence of pericardial effusion. IVC: Collapes with inspirations. IVC is normal in size. PLEURA: CONCLUSION: Normal left ventricle cavity size, wall thickness, and systolic function without wall motion abnormalities, ejection fraction 62% Normal left ventricle diastolic function Normal right ventricle size and systolic function Normal right-sided pressures, RVSP 25 mmHg No significant valvular abnormalities Adult Echocardiography Procedure Report Left Ventricle LVEDD (3.7 - 5.6 cm): 5.22 cm LVESD (2.2 - 4.0 cm): 3.52 cm LVIVS thickness (0.6 - 1.2 cm): 0.65 cm LVPW thickness (0.5 - 1.0 cm): 0.81 cm e': 0.15 m/s E - e': 6.92 LVOT Max Gradient: 3.47 mm[Hg] LVOT Area (cm2): 0.93 m/s Peak Velocity (LVOT): 0.93 m/s Mean Velocity (LVOT): LVOT Diameter 2.12 cm Left Ventricular Ejection Fraction: 61.52 % Left Atrium LA Volume Index (2D A2C): 23.71 ml/m2 Left Atrium Systolic Dimension: 3.88 cm Mitral Valve MV E to A Ratio: 1.51 MV Max Gradient: MV Mean Gradient: Mitral Valve A-Wave Peak Velocity: 0.67 m/s Mitral Valve E-Wave Peak Velocity: 1.01 m/s Cardiovascular Orifice Area: Right Ventricle RV Internal Diastolic Dimension: Aorta AO Root Diam: 2.93 cm Ascending Ao Diam: 2.59 cm Aortic Valve AoV Area (Peak Carmelo): 2.52 cm2, 2.52 cm2 AoV Area (VTI): Deceleration [place]: Pressure Half-Time: Peak Velocity(Antegrade Flow): 1.31 m/s Peak Gradient(Antegrade Flow): 6.87 mm[Hg] Mean Velocity(Antegrade Flow): Mean Gradient(Antegrade Flow): Velocity Time Integral: Tricuspid Valve Peak Velocity (Regurgitant Flow): 2.36 m/s Peak Velocity: Pulmonic Valve Mean Gradient: Mean Velocity: Peak Velocity: Peak Gradient: 4.08 mm[Hg], 4.44 mm[Hg] Right Atrium Right Atrium Systolic Pressure: 54.89 ml, 54.89 ml Dictated by: Harriet Jung MD on 09/05/2024 at 14:12 Approved by: Harriet Jung MD on 09/05/2024 at 14:17 Dictated By: Harriet Jung M.D. Signed By:09/05/24 1418 DD/ 1417 TD/TT: Medical Biller Coder: us Elvie Greer NP [facility] IMAGING Final Result * NM MARVIN PERF SPECT REST STR (09/05/2024 1:42 PM EDT) Anatomical Region Laterality Modality Other 09/05/2024 1:42 PM EDT Narrative 09/05/2024 1:43 [place] [address] Nuclear Medicine Report Signed Patient: TEREZA NAVARRO MR#: [id number] : 1985 Acct:[id number] Age/Sex: 38 / F ADM Date: 08/29/24 Loc: CARD Attending Dr: Elvie Greer NP Ordering Physician: Elvie Greer NP Date of Service: 08/29/24 Procedure(s): NM marivn perf SPECT rest str Accession Number(s): [id number] cc: Elvie Greer NP Patient Name: TEREZA NAVARRO MR#: [id number] : 1985 Exam Date: 08/29/2024 Ordering Doctor: KEYA GREER CNP RADIOLOGY REPORT PROCEDURE: NM MARVIN PERF SPECT REST STR COMPARISON: None. INDICATIONS: HEART PALPITATIONS, VENTRICULAR ECTOPY TECHNIQUE: Exam Description: Stress/Rest two day protocol gated SPECT Rest Imagin.8 mCi Tc-99m Cardiolite IV on 09/05/2024 Stress Imaging 25.3 mCi Tc-99m Cardiolite IV on 08/29/2024 Exercise Protocol: Anmol Heart Rate (bpm): Rest: 90 Max: 173 PMHR: 96 Blood Pressure: Rest: 140/88 Max: 150/90 Exercise Time: Minutes: 5 Seconds: 35 Stage Reached: Stage: 2 Mets 7.0 Symptoms: Rest and peak stress ECG findings were pending and the EKG portion of the study was pending per attending physician [facility] . For more details please see separate cardiac stress test report. FINDINGS: QUALITY OF STUDY: Good PERFUSION DEFECT: LOCATION: Anterior SIZE: Medium SEVERITY: Mild TYPE: Fixed with adequate contractility and thickening consistent with breast attenuation WALL MOTION: Normal LV SIZE: 108 mL. TID / TCD: 0.9 LVEF: Calculated EF 71%. SUMMARY: Normal myocardial perfusion imaging study CONCLUSION: Normal Myoview myocardial perfusion stress images without evidence of ischemia or infarction Normal left ventricular systolic function, ejection fraction 71% No transient ischemic dilatation, TID 0.9 EKG portion of stress test is reported separately Dictated by: Harriet Jung MD on 09/05/2024 at 13:36 Approved by: Harriet Jung MD on 09/05/2024 at 13:42 Dictated By: Harriet Jung M.D. Signed By: 09/05/24 1343 DD/ 1342 TD/TT: Medical Biller Coder: Procedure Note Radiology, Radiologist, - 09/05/2024 [place] [address] Nuclear Medicine Report Signed Patient: TEREZA NAVARRO KMR#: [id number] : 1985Acct:[id number] Age/Sex: 38 / FADM Date: 08/29/24 Loc: CARD Attending Dr: Elvie Greer NP Ordering Physician: Elvie Greer NP Date of Service: 08/29/24 Procedure(s): NM marvin perf SPECT rest str Accession Number(s): [id number] cc: Elvie Greer NP Patient Name: TEREZA NAVARRO MR#: [id number] : 1985 Exam Date: 08/29/2024 Ordering Doctor: KEYA GREER CNP RADIOLOGY REPORT PROCEDURE: NM MARVIN PERF SPECT REST STR COMPARISON: None. INDICATIONS: HEART PALPITATIONS, VENTRICULAR ECTOPY TECHNIQUE: Exam Description: Stress/Rest two day protocol gated SPECT Rest Imagin.8 mCi Tc-99m Cardiolite IV on 09/05/2024 Stress Imaging 25.3 mCi Tc-99m Cardiolite IV on 08/29/2024 Exercise Protocol: Anmol Heart Rate (bpm): Rest: 90 Max: 173 PMHR: 96 Blood Pressure: Rest: 140/88 Max: 150/90 Exercise Time: Minutes: 5 Seconds: 35 Stage Reached: Stage: 2 Mets 7.0 Symptoms: Rest and peak stress ECG findings were pending and the EKG portion of the study was pending per attending physician [facility] . For more details pleasesee separate cardiac stress test report. FINDINGS: QUALITY OF STUDY: Good PERFUSION DEFECT: LOCATION: Anterior SIZE: Medium SEVERITY: Mild TYPE: Fixed with adequate contractility and thickening consistent with breast attenuation WALL MOTION: Normal LV SIZE: 108 mL. TID / TCD: 0.9 LVEF: Calculated EF 71%. SUMMARY: Normal myocardial perfusion imaging study CONCLUSION: Normal Myoview myocardial perfusion stress images without evidence ofischemia or infarction Normal left ventricular systolic function, ejection fraction 71% No transient ischemic dilatation, TID 0.9 EKG portion of stress test is reported separately Dictated by: Harriet Jung MD on 09/05/2024 at 13:36 Approved by: Harriet Jung MD on 09/05/2024 at 13:42 Dictated By: Harriet Jung M.D. Signed By:09/05/24 1343 DD/ 1342 TD/TT: Medical Biller Coder: us Elvie Greer NP [facility] IMAGING Final Result * CARD HOLTER MONITOR RECORDING (08/07/2024 11:08 AM EDT) Only the most recent of2 resultswithin the time period is included. Anatomical Region Laterality Modality Radiographic Hollie ging us Elvie Greer NP IMG XR PROCEDURES Final Result * ALL THYROXINE (T4) FREE (07/11/2024 12:41 PM EDT) FREE T4 1.05 0.76 - 1.46 ng/dL [facility] 07/11/2024 12:4 1 PM EDT 07/11/2024 12:47 PM EDT Narrative [facility]IN[facility] - 07/11/2024 1:41 PM EDT Elvie Greer NP [facility] Final Result Performing Organization Address City/[facility]/ZIP Co de Phone Number [facility] * (ABNORMAL) ALL THYROID STIM HORMONE (07/11/2024 12:41 PM EDT) THYROID STIMULATING HORMONE 3.998(H) 0.358 - 3.740 uIU/mL [facility] 07/11/2024 12:4 1 PM EDT 07/11/2024 12:47 PM EDT Narrative [facility]IN[facility] - 07/11/2024 1:39 PM EDT Elvie Greer MICRO PHOTOGRAPHER [facility] Final Result [facility]IN[facility] TB * ALL MAGNESIUM (07/11/2024 12:41 PM EDT) Only the most recent of2 resultswithin the time period is included. MAGNESIUM 1.8 1.8 - 2.4 mg/dL [facility] 07/11/2024 12:4 1 PM EDT 07/11/2024 12:47 PM EDT Narrative [facility]IN[facility] - 07/11/2024 1:39 PM EDT Elvie Percy MICRO PHOTOGRAPHER [facility] Final Result Performing Organization Address [facility] de Phone Number [facility]IN[facility] TB * ALL BASIC METABOLIC PANEL (06/27/2024 9:24 [...] 0.55 - 1.02 mg/dL TBH TBH EGFR-AF CITIZEN [place] >60 >=60 mL/min/1.7 3m 2 TBH TBH EGFR-NON AF CITIZ[place] >60 >=60 mL/min/1.7 3m 2 TBH BUN CREATININE RATIO 11.9 TBH CALCIUM 8.9 8.5 - 10.1 mg/dL [facility] 06/27/2024 9:24 AM EDT 06/27/2024 9:24 AM EDT Narrative CLIN[facility]NC - 06/27/2024 9:44 AM EDT Elvie Greer NP CLINISYHECTOR Final Result Performing Organization Address [facility] de Phone Number CLIN[facility]NC TBH * XR knee 3 views [...] PROCEDURES Edited Res ult - Final * Pap Smear (05/30/2024 12:00 AM EDT) Swab Cervical swab / Unknown us Tien Morales DO LAB CYTOLOGY ORDERABLES Final Re sult EXTERNAL LAB * MM TOMOSYNTHESIS SCREENING BI (04/18/2024 11:34 AM EST) Anatomical Region Laterality Modality Other 04/18/2024 11:3 4 AM EST Narrative 04/18/2024 11:35 [place] [address] Mammography Report Signed Patient: TEREZA NAVARRO MR#: [id number] : 1985 Acct:[id number] Age/Sex: 38 / F ADM Date: 04/18/24 Loc: MAMMO Attending Dr: Tien Morales D.O. Ordering Physician: Tien Morales D.O. Results: Date of Service: 04/18/24 Follow Up: Procedure(s): MM tomosynthesis screening BI Accession Number(s): [id number] cc: Elvie Greer MICRO PHOTOGRAPHER; Tien Morales D.O. Patient Name: TEREZA NAVARRO MR#: [id number] : 1985 Exam Date: 04/18/2024 Ordering Doctor: [...] Treatments None Family Cancers None LOCATION: [facility] BREAST COMPOSITION: The breasts are extremely [...] Signed By: 04/18/24 1135 DD/ 1134 TD/TT: Medical Biller Coder: Procedure Note Radiology, Radiologist, MD - 04/18/2024 [place] [address] Mammography Report Signed Patient: TEREZA NAVARRO KMR#: [id number] : 1985Acct:[id number] Age/Sex: 38 / FADM Date: 04/18/24 Loc: MAMMO Attending Dr: Tien Morales D.O. Ordering Physician: Tien Morales D.O.Results: Date of Service: 04/18/24Follow Up: Procedure(s): MM tomosynthesis screening BI Accession Number(s): [id number] cc: Elvie Greer MICRO PHOTOGRAPHER; Tien Morales D.O. Patient Name: TEREZA NAVARRO MR#: [id number] : 1985 Exam Date: 04/18/2024 Ordering Doctor: [...] Treatments None Family Cancers None LOCATION: [facility] BREAST COMPOSITION: The breasts are extremely [...] M.D. Signed By:04/18/24 1135 DD/ 1134 TD/TT: Medical Biller Coder: [facility] [place] DO [facility] IMAGING Final Result from Last 3 Months or Most Recently Relevant to Health Maintenance Insurance [employer] Care Teams Nurse Charge Rn Relationship Specialty Start Date End Date Chris [place]ae[place] MD [address] [place] [address] PCP - General Family Medicine 04/01/23 Elvie Greer NP [address] [place] [address] Nurse Practitioner Family Medicine 04/01/23
--- OUTSIDE RECORDS SUMMARY | 2024-09-21 10:57 | XMS_ITS | Encounter Summary ---
Author Organization [facility] Address [address] [place] [address] Care Team Providers Care Grocery Carrier Name Role Phone Elvie Greer SHANK PAPERER Unavailable [phone] Chris Pelaez MD Primary Care Provider [phone] Encounter Details Date Type Department Care Team (Late st Contact Info) Description 08/03/2024 Orders Only [facility] C[facility] FM [address] [place] [address] Elvie Greer, JONN [address] [place] [address] Social History Tobacco Use Types Packs/Day Years [...] often do you attend chur ch or buddhist services? Never 04/06/2023 Do you belong to any clubs o r organizations such as advent groups, unions, fraternal or athletic groups, or [...] Recorded Patient Health Questionnaire-2 Score 0 08/31/2023 [facility] Questionnaire Answer Date [...] Office Visit [facility]O [address] [place] [address] Elvie Greer NP [address] [place] [address] 11/16/2024 11:00 AM EDT Office Visit [facility] S[facility] ALL [address] [place] [address] Arnaud Cordova MD [address] [place] [address] 02/22/2025 1:15 PM EST Office Visit [facility] NB ORTHO [address] [place] [address] Tani Pimentel, DO [address] [place] [address] 06/05/2025 11:00 AM EDT Office Visit [facility] BCP OB [address] [facility] [place] [address] Javier Morales, DO [address] [facility] [place] [address] documented as of this encounter Procedures Procedure Name Priority Date/Time Associated Diagnosis Comments CARD HOLTER MONITOR RECORDING Routine 08/03/2024 9:16 AM EDT documented in this encounter Results * CARD HOLTER MONITOR RECORDING (08/03/2024 9:16 AM EDT) Anatomical Region Laterality Modality Radiographic Hollie ging us Elvie Greer SHANK PAPERER IMG XR PROCEDURES Final Result documented in this encounter Visit Diagnoses Not on filedocumented in this encounter Care Teams Grocery Carrier Relationship Specialty Start Date End Date Chris Pelaez MD [address] [place] [address] PCP - General Family Medicine 04/01/23 Elvie Greer NP [address] [place] [address] Nurse Practitioner Family Medicine 04/01/23 documented as of this encounter
--- OUTSIDE RECORDS SUMMARY | 2024-09-21 10:57 | XMS_ITS | Encounter Summary ---
Author Organization [facility] Address [address] [place] [address] Care Team Providers Care Manager Practice Name Role Phone Elvie Greer CHEMICAL LABORATORY TESTER Unavailable [phone] Chris Pelaez MD Primary Care Provider [phone] Encounter Details Date Type Department Care Team (Late st Contact Info) Description 08/07/2024 Orders Only [facility] C[facility] FM [address] [place] [address] Elvie Greer, JONN [address] [place] [address] Social History Tobacco Use Types Packs/Day Years [...] often do you attend chur ch or cheondoism services? Never 04/06/2023 Do you belong to any clubs o r organizations such as rastafarian groups, unions, fraternal or athletic groups, or [...] 08/31/2023 [facility] [place] Questionnaire Answer Date Recorded [...] place to sleep or slept in a half-way (including now)? No 04/06/2023 Comments Unknown Sex [...] Office Visit [facility] [address] [place] [address] Elvie Greer NP [address] [place] [address] 11/16/2024 11:00 AM EDT Office Visit [facility] S[facility] ALL [address] [place] [address] Arnaud Cordova MD [address] [place] [address] 02/22/2025 1:15 PM EST Office Visit [facility] NB ORTHO [address] [place] [address] Tani Pimentel, DO [address] [place] [address] 06/05/2025 11:00 AM EDT Office Visit [facility] BCP OB [address] [facility] [place] [address] Javier Morales, DO [address] [facility] [place] [address] documented as of this encounter Procedures Procedure Name Priority Date/Time Associated Diagnosis Comments CARD HOLTER MONITOR RECORDING Routine 08/07/2024 11:08 AM EDT documented in this encounter Results * CARD HOLTER MONITOR RECORDING (08/07/2024 11:08 AM EDT) Anatomical Region Laterality Modality Radiographic Hollie ging us Elvie Greer CHEMICAL LABORATORY TESTER IMG XR PROCEDURES Final Result documented in this encounter Visit Diagnoses Not on filedocumented in this encounter Care Teams Manager Practice Relationship Specialty Start Date End Date Chris Pelaez MD [address] [place] [address] PCP - General Family Medicine 04/01/23 Elvie Greer NP [address] [place] [address] Nurse Practitioner Family Medicine 04/01/23 documented as of this encounter
--- OUTSIDE RECORDS SUMMARY | 2024-09-21 10:57 | XMS_ITS | Encounter Summary ---
Author Organization [facility] Address [address] [place] [address] Care Team Providers Care Sign Artist Name Role Phone Elvie Greer CHAR FILTER OPERATOR HELPER Unavailable [phone] Chris Pelaez MD Primary Care Provider Encounter Details Date Type Department Care Team (Late st Contact Info) Description 08/31/2024 Abstract [facility] FM [address] [place] [address] Elvie Greer NP [address] [place] [address] Social History Tobacco Use Types Packs/Day Years [...] often do you attend chur ch or anabaptism services? Never 04/06/2023 Do you belong to any clubs o r organizations such as latter-day groups, unions, fraternal or athletic groups, or [...] Recorded Patient Health Questionnaire-2 Score 0 08/31/2023 [facility] Questionnaire Answer Date [...] Office Visit [facility] [address] [place] [address] Elvie Greer NP [address] [place] [address] 11/16/2024 11:00 AM EDT Office Visit [facility] ALL [address] [place] [address] Arnaud Cordova MD [address] [place] [address] 02/22/2025 1:15 PM EST Office Visit [facility] NB ORTHO [address] [place] [address] Tani Pimentel DO [address] [place] [address] 06/05/2025 11:00 AM EDT Office Visit [facility] B[facility] OB [address] [place] [address] Javier Morales, DO [address] [facility] [place] [address] documented as of this encounter Visit Diagnoses Not on filedocumented in this encounter Care Teams Sign Artist Relationship Specialty Start Date End Date Chris Pelaez MD [address] [place] [address] PCP - General Family Medicine 04/01/23 Elvie Greer NP [address] [place] [address] Nurse Practitioner Family Medicine 04/01/23 documented as of this encounter
--- OUTSIDE RECORDS SUMMARY | 2024-09-21 10:57 | XMS_ITS | Encounter Summary ---
Author Organization [facility] Address [address] [place] [address] Care Team Providers Care Air Intelligence Officer Name Role Phone Percy Elvie MEDICAL AIDES TEACHER Unavailable [phone] Chris Pelaez MD Primary Care Provider Encounter Details Date Type Department Care Team (Late st Contact Info) Description 09/11/2024 Bamboo flowsheet [facility] OB [address] [place] [address] Javier Morales, DO [address] [facility] [address] [place], [facility] Social History Tobacco Use Types Packs/Day Years [...] often do you attend chur ch or pentecostal services? Never 04/06/2023 Do you belong to any clubs o r organizations such as sikhism groups, unions, fraternal or athletic groups, or [...] Recorded Patient Health Questionnaire-2 Score 0 08/31/2023 [facility] Questionnaire Answer Date [...] place to sleep or slept in a care home (including now)? No 04/06/2023 Comments Unknown [...] Visit [facility] [address] [place] [address] Elvie Greer NP [address] [place] [address] 11/16/2024 11:00 AM EDT Office Visit [facility] ALL [address] [place] [address] Arnaud Cordova MD [address] [place] [address] 02/22/2025 1:15 PM EST Office Visit [facility] TESSIE ORTHO [address] [place] [address] Tani Pimentel, DO [address] [address] 06/05/2025 11:00 AM EDT Office Visit [facility] BCP OB [address] [place] [address] Javier Morales, DO [address] [facility] [address] [place], [place] [address] documented as of this encounter Visit Diagnoses Not on filedocumented in this encounter Care Teams Air Intelligence Officer Relationship Specialty Start Date End Date Chris Pelaez MD [address] [place] [address] PCP - General Family Medicine 04/01/23 Elvie Greer NP [address] [place] [address] Nurse Practitioner Family Medicine 04/01/23 documented as of this encounter
--- OUTSIDE RECORDS SUMMARY | 2024-09-21 10:57 | XMS_ITS | Encounter Summary ---
Author Organization [facility] Address [address] [place] [address] Care Team Providers Care Storage Worker Name Role Phone Elvie Greer BOILER WELDER Unavailable [phone] Chris Pelaez MD Primary Care Provider Encounter Details Date Type Department Care Team (Late st Contact Info) Description 01/25/2024 Orders Only [facility] FM [address] [place] [address] Elvie Greer, JONN [address] [place] [address] Social History Tobacco Use Types Packs/Day Years [...] often do you attend chur ch or alevism services? Never 04/06/2023 Do you belong to any clubs o r organizations such as hoahaoism groups, unions, fraternal or athletic groups, or [...] Recorded Patient Health Questionnaire-2 Score 0 08/31/2023 [facility] - Occupational Stress Questionnaire Answer Date [...] Office Visit [facility] [address] [place] [address] Elvie Greer NP [address] [place] [address] 11/16/2024 11:00 AM EDT Office Visit [facility] ALL [address] [place] [address] Arnaud Cordova MD [address] [place] [address] 02/22/2025 1:15 PM EST Office Visit [facility] NB ORTHO [address] [place] [address] Tani Pimentel, DO [address] [place] [address] 06/05/2025 11:00 AM EDT Office Visit [facility] BCP OB [address] [facility] [place] [address] AndrewJavier alonso, DO [address] [facility] [place] [address] documented as of this encounter Procedures Procedure [...] Region Laterality Modality Chest Radiographic Hollie ging us Elvie Greer BOILER WELDER IMG XR PROCEDURES Final Result documented in this encounter Visit Diagnoses Not on filedocumented in this encounter Care Teams Storage Worker Relationship Specialty Start Date End Date Chris Pelaez MD [address] [place] [address] PCP - General Family Medicine 04/01/23 Elvie Greer NP [address] [place] [address] Nurse Practitioner Family Medicine 04/01/23 documented as of this encounter
--- OUTSIDE RECORDS SUMMARY | 2024-09-21 10:57 | XMS_ITS | Encounter Summary ---
Author Organization [facility] Address [address] [place] [address] Care Team Providers Care Iron Pourer Name Role Phone Elvie Greer DIRECTOR OUTPATIENT SERVICES Unavailable [phone] Chris Pelaez MD Primary Care Provider [phone] Encounter Details Date Type Department Care Team (Late st Contact Info) Description 07/02/2023 Clinisync Result Encounter [facility] External Department Unsolicited Elvie Greer, JONN [address] [place] [address] Social History Tobacco Use Types Packs/Day Years [...] any clubs o r organizations such as anglican groups, unions, fraternal or athletic groups, or [...] Recorded Patient Health Questionnaire-2 Score 0 06/29/2023 [facility] of Occupat ional [facility] - Occupational Stress Questionnaire Answer Date [...] 10/10/2024 2:00 PM EDT [facility] [address] [place] [address] Elvie Greer NP [address] [place] [address] 11/16/2024 11:00 AM EDT Office Visit [facility] ALL [address] [place] [address] Arnaud Cordova MD [address] [place] [address] 02/22/2025 1:15 PM EST Office Visit [facility] NB ORTHO [address] [place] [address] Tani Pimentel, DO [address] [place] [address] 06/05/2025 11:00 AM EDT Office Visit [facility] BCP OB [address] [facility] [place] [address] Javier Morales, DO [address] [facility] [place] [address] documented as of this encounter Procedures Procedure Name Priority Date/Time Associated Diagnosis Comments US THYROID 07/02/2023 6:22 AM EDT documented in this encounter Results * US thyroid (07/02/2023 6:22 AM EDT) Anatomical Region Laterality Modality Head, Neck Ultrasound 07/02/2023 6:22 AM EDT Narrative 07/02/2023 6:24 AM EDT [address] [address] Ultrasound Report Signed Patient: TEREZA NAVARRO MR#: [id number] : 1985 Acct:[id number] Age/Sex: 37 / F ADM Date: 07/01/23 Loc: US Attending Dr: Elvie Greer DIRECTOR OUTPATIENT SERVICES Ordering Physician: Elvie Greer NP Date of Service: 07/01/23 Procedure(s): US thyroid Accession Number(s): [id number] cc: Elvie Greer NP [address] [address] Patient Name: TEREZA NAVARRO MRN: [id number] date: 1985 Sex: F Assigned Patient Location: US Current Patient Location: Accession/Order Number: [id number] Exam Date: 07/01/2023 11:42 Report Date: 07/02/2023 [...] M.D. Signed By: 07/02/23623 DD/ 1 TD/TT: Dairy Nutrition Specialist: Procedure Note Radiology, Radiologist, MD - 07/02/2023 [place] [address] Ultrasound Report Signed Patient: TEREZA NAVARRO KMR#: [id number] : 1985Acct:[id number] Age/Sex: 37 / FADM Date: 07/01/23 Loc: US Attending Dr: Elvie Greer NP Ordering Physician: Elvie Greer NP Date of Service: 07/01/23 Procedure(s): US thyroid Accession Number(s): [id number] cc: Elvie Greer NP [facility] [place] [id number] Patient Name: TEREZA NAVARRO MRN: [facility]:[id number] date: 1985 Sex: F Assigned Patient Location: US Current Patient Location: Accession/Order Number: [id number] Exam Date: 07/01/2023 11:42 Report Date: 07/02/2023 [...] Vivas M.D. Signed By:07/02/23623 DD/ 1 TD/TT: Dairy Nutrition Specialist: us Elvie Greer NP IMG US PROCEDURES Final Result documented in this encounter Visit Diagnoses Not on filedocumented in this encounter Care Teams Iron Pourer Relationship Specialty Start Date End Date Chris Pelaez MD [address] [place] [address] PCP - General Family Medicine 04/01/23 Elvie Greer NP [address] [place] [address] Nurse Practitioner Family Medicine 04/01/23 documented as of this encounter
--- OUTSIDE RECORDS SUMMARY | 2024-09-21 10:57 | XMS_ITS | Encounter Summary ---
Author Organization [facility] Address [address] [place] [address] Care Team Providers Care Climate Change Analyst Name Role Phone Percy Elvie HORSE STUD WORKER Unavailable [phone] Chris Pelaez MD Primary Care Provider Encounter Details Date Type Department Care Team (Late st Contact Info) Description 06/25/2023 Orders Only [facility] FM [address] [place] [address] Javier Morales, DO [address] [place] [address] [place] [address] Social History Tobacco Use Types [...] often do you attend chur ch or orthodoxy services? Never 04/06/2023 Do you belong to any clubs o r organizations such as buddhism groups, unions, fraternal [...] Recorded Patient Health Questionnaire-2 Score 0 06/29/2023 [facility]ational [facility] Questionnaire Answer Date [...] place to sleep or slept in a detention (including now)? No 04/06/2023 Comments Unknown Sex [...] Office Visit [facility] [address] [place] [address] Elvie Greer NP [address] [place] [address] 11/16/2024 11:00 AM EDT Office Visit [facility] ALL [address] [place] [address] Arnaud Cordova MD [address] [place] [address] 02/22/2025 1:15 PM EST Office Visit [facility] NB ORTHO [address] [place] [address] Tani Pimentel, DO [address] [place] [address] 06/05/2025 11:00 AM EDT Office Visit [facility] BCP OB [address] [facility] [address] Javier Morales, DO [address] [facility] [place] [address] documented as of this encounter Procedures Procedure Name Priority Date/Time Associated Diagnosis Comments SCANNED LABS Routine 06/25/2023 9:44 AM EDT documented in this encounter Results * SCANNED LABS (06/25/2023 9:44 AM EDT) Javier Morales DO LAB CHG PERFORMABLES Final Resul t documented in this encounter Visit Diagnoses Not on filedocumented in this encounter Care Teams Climate Change Analyst Relationship Specialty Start Date End Date Chris Pelaez MD [address] [place] [address] PCP - General Family Medicine 04/01/23 Elvie Greer NP [address] [place] [address] Nurse Practitioner Family Medicine 04/01/23 documented as of this encounter
--- OUTSIDE RECORDS SUMMARY | 2024-09-21 10:57 | XMS_ITS | Encounter Summary ---
Author Organization [facility] Address [address] [place] [address] Care Team Providers Care Shotblast Equipment Operator Name Role Phone Elvie Greer NEWSSTAND VENDOR Unavailable [phone] Chris Pelaez MD Primary Care Provider [phone] Encounter Details Date Type Department Care Team (Late st Contact Info) Description 02/16/2024 Orders Only [facility] NB ORTHO [address] [place] [address] Tani Pimentel, [address] [facility] [place] [address] Right knee pain, unspecified chronicity [...] How often do you attend chur or taoist services? Never 04/06/2023 Do you belong to any clubs o r organizations such as voodoo groups, unions, fraternal [...] Patient Health Questionnaire-2 Score 0 08/31/2023 [facility] - Occupational Stress Questionnaire Answer Date [...] place to sleep or slept in a usp (including now)? No 04/06/2023 Comments Unknown Sex [...] Office Visit [facility] [address] [place] [address] Elvie Greer, JONN [address] [place] [address] 11/16/2024 11:00 AM EDT Office Visit [facility] ALL [address] [place] [address] Arnaud Cordova MD [address] [place] [address] 02/22/2025 1:15 PM EST Office Visit [facility] NB ORTHO [address] [place] [address] Tani Pimentel, DO [address] [place] [address] 06/05/2025 11:00 AM EDT Office Visit [facility] BCP OB [address] [place] [address] Javier Morales, DO [address] [facility] [place] [address] documented as of this encounter Visit Diagnoses Diagnosis Right knee pain, unspecified chronicity- Primary documented in this encounter Care Teams Shotblast Equipment Operator Relationship Specialty Start Date End Date Chris Pelaez MD [address] [place] [address] PCP - General Family Medicine 04/01/23 Elvie Greer NP [address] [place] [address] Nurse Practitioner Family Medicine 04/01/23 documented as of this encounter
--- OUTSIDE RECORDS SUMMARY | 2024-09-21 10:57 | XMS_ITS | Encounter Summary ---
Author Organization [facility] Address [address] [place] [address] Care Team Providers Care Animator Name Role Phone Elvie Greer REPORTS DEVELOPER Unavailable [phone] Chris Pelaez MD Primary Care Provider Encounter Details Date Type Department Care Team (Late st Contact Info) Description 07/02/2023 Orders Only [facility] BWM FM [address] [place] [address] Elvie Greer NP [address] [facility] [place] [address] Social History Tobacco Use Types Packs/Day Years [...] often do you attend chur ch or muslim services? Never 04/06/2023 Do you belong to [...] Recorded Patient Health Questionnaire-2 Score 0 06/29/2023 [facility] of Occupat ional [facility] - Occupational Stress Questionnaire Answer Date [...] Office Visit [facility]O [address] [place] [address] Elvie Greer NP [address] [place] [address] 11/16/2024 11:00 AM EDT Office Visit [facility] S[facility] ALL [address] [place] [address] Arnaud Cordova MD [address] [place] [address] 02/22/2025 1:15 PM EST Office Visit [facility] NB ORTHO [address] [place] [address] Pimentel, Tani T, DO [address] [place] [address] 06/05/2025 11:00 AM EDT Office Visit [facility] OB [address] [facility] [place] [address] Javier Morales, DO [address] [facility] [place] [address] documented as of this encounter Procedures Procedure Name Priority Date/Time Associated Diagnosis Comments US HEAD NECK SOFT TISSUE Routine 07/01/2023 8:37 AM EDT documented in this encounter Results * US head neck soft tissue (07/01/2023 8:37 AM EDT) Anatomical Region Laterality Modality Head, Neck Ultrasound us Elvie Greer REPORTS DEVELOPER IMG US PROCEDURES Final Result documented in this encounter Visit Diagnoses Not on filedocumented in this encounter Care Teams Animator Relationship Specialty Start Date End Date Chris Pelaez MD [address] [place] [address] PCP - General Family Medicine 04/01/23 Elvie Greer NP [address] [place] [address] Nurse Practitioner Family Medicine 04/01/23 documented as of this encounter
--- OUTSIDE RECORDS SUMMARY | 2024-09-21 10:57 | XMS_ITS | Encounter Summary ---
Author Organization [facility] Address [address] [place] [address] Care Team Providers Care Community Health Specialist Name Role Phone Percy Elvie TELECOMMUNICATIONS ANALYST Unavailable [phone] Chris Pelaez MD Primary Care Provider [phone] Encounter Details Date Type Department Care Team (Late st Contact Info) Description 06/09/2024 Orders Only [facility] [address] [facility] [place] [address] Faiza Pacheco MA [address] [facility] [place] [address] Social History Tobacco Use Types Packs/Day Years [...] often do you attend chur ch or hinduism services? Never 04/06/2023 Do you belong to any clubs o r organizations such as bahai groups, unions, fraternal [...] Recorded Patient Health Questionnaire-2 Score 0 08/31/2023 [facility] of Occupat ional Health - Occupational [...] place to sleep or slept in a mcc (including now)? No 04/06/2023 Comments Unknown Sex [...] Visit [facility] [address] [place] [address] Elvie Greer NP [address] [place] [address] 11/16/2024 11:00 AM EDT Office Visit [facility] [address] [place] [address] Arnaud Cordova MD [address] [place] [address] 02/22/2025 1:15 PM EST Office Visit [facility] [address] [place] [address] Tani Pimentel, [address] [place] [address] 06/05/2025 11:00 AM EDT Office Visit [facility] [address] [facility] [place] [address] Javier Morales, [address] [place] [address] documented as of this encounter Procedures Procedure Name Priority Date/Time Associated Diagnosis Comments PAP SMEAR Routine 05/30/2024 12:00 AM EDT documented in this encounter Results * Pap Smear (05/30/2024 12:00 AM EDT) Swab Cervical swab / Unknown us Javier Morales DO LAB CYTOLOGY ORDERABLES Final Re sult EXTERNAL LAB documented in this encounter Visit Diagnoses Not on filedocumented in this encounter Care Teams Community Health Specialist Relationship Specialty Start Date End Date Chris Pelaez MD [address] [place] [address] PCP - General Family Medicine 04/01/23 Elvie Greer NP [address] [place] [address] Nurse Practitioner Family Medicine 04/01/23 documented as of this encounter
--- OUTSIDE RECORDS SUMMARY | 2024-09-21 10:57 | XMS_ITS | Encounter Summary ---
Author Organization [facility] Address [address] [place] [place] [address] Care Team Providers Care Nuisance Animal Damage Control Agent Name Role Phone Elvie Greer STEAM HAMMER OPERATOR Unavailable [phone] Chris Pelaez MD Primary Care Provider [phone] Encounter Details Date Type Department Care Team (Latest Contact Info) Description 09/07/2024 Travel Social History Tobacco Use Types Packs/Day Years [...] often do you attend chur ch or evangelical services? Never 04/06/2023 Do you belong to any clubs o r organizations such as protestant groups, unions, fraternal or athletic groups, or [...] Recorded Patient Health Questionnaire-2 Score 0 08/31/2023 [facility]at [facility] - Occupational Stress Questionnaire Answer Date [...] Office Visit [facility] [address] [place] [address] Elvie Greer, STEAM HAMMER OPERATOR [address] [place] [address] 11/16/2024 11:00 AM EDT Office Visit [facility] [address] [place] [address] Arnaud Cordova MD [address] [address] 02/22/2025 1:15 PM EST Office Visit [facility] [address] [place] [address] Tani Pimentel, [address] [place] [address] 06/05/2025 11:00 AM EDT Office Visit [facility] [address] [place] [address] [place] [address] Javier Morales, [address] [place] [address] documented as of this encounter Visit Diagnoses Not on filedocumented in this encounter Care Teams Nuisance Animal Damage Control Agent Relationship Specialty Start Date End Date Chris Pelaez MD [address] [place] [address] PCP - General Family Medicine 04/01/23 Elvie Greer NP [address] [place] [address] Nurse Practitioner Family Medicine 04/01/23 documented as of this encounter
[2024-09-21 12:29] LABS: Thyroid Stimulating Hormone 4.948 uIU/mL (0.358-3.740)
== END 2024-09-21 10:55 | disposition home or self-care (01) ==
PROVIDERS: PCP Nurse Practitioner; Visit Provider Nurse Practitioner
DX: E03.9 Hypothyroidism, unspecified (principal)
CPT/HCPCS: 36415; 84439; 84443

== ENCOUNTER 2024-11-28 11:21 | Outpatient (OUT) | payer OTHER, SELFPAY ==
--- OUTSIDE RECORDS SUMMARY | 2024-11-16 11:00 | XMS_ITS | Encounter Summary ---
Author Organization [facility] Address [address] [facility] [place] [address] Care Team Providers Care Management Tech Name Role Phone Elvie Greer NP Unavailable [phone] Chris Pelaez MD Primary Care Provider Isa Machado Unavailable Reason for Visit * Reason Comments Allergy Testing Pt here for allergy testing for environmental allergies Encounter Details Date Type Department Care Team (Late st Contact Info) Description 11/16/2024 11:00 AM EDT Office Visit [facility] [address] [facility] [address] [place] [address] Arnaud Cordova MD [address] [facility] 360 [place] [address] Severe persistent asthma with acute exacerbation (HCC) (Primary Dx); Chronic rhinitis Social History Tobacco Use Types Packs/Day Years [...] How often do you attend chur or buddhism services? Never 04/06/2023 Do you belong to any clubs o r organizations such as presybeterian groups, unions, fraternal or athletic groups, or [...] 08/31/2023 [facility] of Occupat ional Health - Occupational Stress [...] as of this encounter Progress Notes * Arnaud Cordova MD - 11/16/2024 11:00 AM EDT Tereza Navarro returns to the office today and notes that her asthma has been occurring more at night. She was started on a beta eduarda (metoprolol) about one month ago. She is on Symbicort 2 puffs BID. Nasal ipratropium and azelastine nasal spray works well. Albuterol azelastine Symbicort Pepcid nasal ipratropium Synthroid montelukast triamcinolone/Nasacort EXAM The patient appears comfortable in the office today. Lungs are clear to auscultation bilaterally. The oral mucosa is pink and healthy without any lesions or ulcers. The palate elevates in the midline. The nasal mucosa is pink and healthy. There is no epistaxis mucopus or nasal polyposis noted. The nasal septum is approximately in the midline. The skin is clear of any lesions, excoriations, or erythema. Based on the HPI and physical exam, it is medically necessary to perform allergy skin testing todayto differentiate if the patients symptoms are allergic in nature and devise a treatment plan. This is a separate procedure from the time spent on the EM encounter. As the patient has not taken any antihistamines within the past five days, we will proceed with skin testing today. Skin testing in theoffice today performed under direct physician supervision showed Positive testing for cats dust mite mold spores tree grass weed and ragweed pollen in the setting of a positive histamine control. Asthma control test in the office today is 13. IMPRESSION: severe persistent asthma - change Symbicort to Trelegy and continue montelukast and avoidance measures for cats dust mite mold and the outdoor pollens. We agreed she would speak with her primary physician about changing her beta-eduarda to a different antihypertensive as this could be exacerbating her asthma and will make immunotherapy difficult for her as she wishes to pursue this. As this is a new device for patient we reviewed proper technique for this today. Allergic rhinoconjunctivitis - We agreed she would continue intranasal azelastine and intranasal ipratropium and we reviewed allergen avoidance measures for the above allergens to which she has positive testing. We discussed the risks and benefits of allergen immunotherapy and she would like to pursue this but I let her know her asthma would likely need to be better controlled prior to considering this so we agreed to discuss this at her follow-up in 1-2 months. documented in this encounter Plan of Treatment Upcoming Encounters Date Type Department Care Team (Late st Contact Info) Description 12/28/2024 9:40 AM EDT Office Visit [facility] [address] [place] [address] Arnaud Cordova MD [address] [place] [address] 02/22/2025 1:15 PM EST Office Visit [facility] [address] [place] [phone] Tani Pimentel, DO [address] [place] [address] 05/03/2025 2:45 PM EST Office Visit [facility] [address] [place] [address] Bernardo Silverio, DO [address] [place] [address] 06/05/2025 11:00 AM EDT Office Visit [facility] [address] [facility] [place] [address] Javier Morales DO [address] [facility] [address] [place], [place] [address] documented as of this encounter Visit Diagnoses Diagnosis Severe persistent asthma with acute exacerbation (HCC)- Primary Chronic rhinitis documented in this encounter Care Teams Management Tech Relationship Specialty Start Date End Date Chris Pelaez MD PCP - General Family Medicine 04/01/23 Isa Machado PA [address] [facility] [address] [place], [place] [phone] PCP - Medical [employer] 03/08/23 03/07/99 Elvie Greer NP Nurse Practitioner Family Medicine 04/01/23 documented as of this encounter
--- OUTSIDE RECORDS SUMMARY | 2024-11-28 11:24 | XMS_ITS | Clinical Summary ---
Author Organization [facility] Address [address] [place] [address] Care Team Providers Care Communications Engineer Name Role Phone Elvie Greer MD Primary Care Provider Allergies Active Allergy Reactions [...] 09/15/2024 2:40 PM EDT Office Visit [facility] [place] [address] [place] [address] Harriet Jung MD Palpitations (Primary [...] 11/30/2024 10:40 AM EDT Office Visit [facility] [address] [place] [address] Harriet Jung MD [address] [place] [address] Health Maintenance Due Date Last Done Comments Depression Screening 1995 Varicella Vaccines (1 of 2 - 13+ 2-dose series) 11/18/1996 Hepatitis B Vaccines (1 of 3 - 19+ 3-dose series) 11/18/2002 Pneumococcal Vaccine: Pediatrics (0 to 5 Years) and At-Risk Patients (6 to 64 Years) (1 of 2 - PCV) 11/18/2002 Adult Tetanus 11/18/2005 HPV/Cotest 11/18/2013 Mammogram 2023 COVID-19 Vaccine (2024-2 6 season) 2024 01/10/2021, 07/09/2020, 06/11/2020 Influenza Vaccine (#1) 2024 , 10/29/2022 Cervical [...] to complete this topic Insurance [employer] Care Teams Communications Engineer Relationship Specialty Start Date End Date Elvie Greer MD [address] [place] [address] PCP - General Nurse Practitioner 09/06/24
--- OUTSIDE RECORDS SUMMARY | 2024-11-28 11:24 | XMS_ITS | Encounter Summary ---
Author Organization [facility] Address [address] [facility] [place] [address] Care Team Providers Care Executive Vice President Business Development Name Role Phone Elvie Greer NP Unavailable [phone] Chris Pelaez MD Primary Care Provider [phone] Isa Machado Unavailable Encounter Details Date Type Department Care Team (Late st Contact Info) Description 11/16/2024 Bamboo flowsheet [facility] [place] [facility] [address] [facility] [address] [place] [address] Arnaud Cordova MD [address] [facility] 360 [place] [address] Social History Tobacco Use Types Packs/Day Years [...] any clubs o r organizations such as mosque groups, unions, fraternal or athletic groups, or [...] Recorded Patient Health Questionnaire-2 Score 0 08/31/2023 [facility] of Occupat ionmi Health - Occupational Stress Questionnaire Answer Date [...] place to sleep or slept in a chcf (including now)? No 04/06/2023 Comments Unknown Sex [...] [facility] [address] [facility] [address] [place] [address] Arnaud Cordova MD [address] [facility] [address] [place] [address] 02/22/2025 1:15 PM EST Office Visit [facility] [address] [facility] [address] Tani Pimentel DO [address] [place] [address] 05/03/2025 2:45 PM EST [facility] [address] [place] [address] [address] [place] [address] Bernardo Silverio, DO 703 [facility] 150 [place] [address] 06/05/2025 11:00 AM EDT Office Visit [facility] [address] [place] [address] Javier Morales DO [address] [facility] [address] [place], [place] [phone] documented as of this encounter Visit Diagnoses Not on filedocumented in this encounter Care Teams Executive Vice President Business Development Relationship Specialty Start Date End Date Chris Pelaez MD PCP - General Family Medicine 04/01/23 Isa Machado PA [address] [facility] [address] [place], [place] [phone] PCP - Medical [place] [employer] 03/08/23 03/07/99 Elvie Greer NP Nurse Practitioner Family Medicine 04/01/23 documented as of this encounter
--- OUTSIDE RECORDS SUMMARY | 2024-11-28 11:24 | XMS_ITS | Encounter Summary ---
Author Organization [facility] Address [address] [place] [address] Care Team Providers Care Loaders Name Role Phone Elvie Greer NP Unavailable [phone] Chris Pelaez MD Primary Care Provider [phone] Isa Machado Unavailable Encounter Details Date Type Department Care Team (Late st Contact Info) Description 02/21/2024 Clinisync Result Encounter [facility] External Department Unsolicited Tani Pimentel, DO [address] [place], [place] [phone] Social History Tobacco Use Types Packs/Day Years [...] Recorded Patient Health Questionnaire-2 Score 0 08/31/2023 [facility] Questionnaire Answer Date Recorded [...] place to sleep or slept in a prison (including now)? No 04/06/2023 Comments Unknown Sex and Gender Information Value Date Recorded Sex Assigned at Not on file Legal Sex Female 6:44 PM EDT Gender Identity Female 03/31/2023 2:50 PM EST Sexual Orientation Not on file documented as of this encounter Plan of Treatment Upcoming Encounters Date Type Department Care Team (Late st Contact Info) Description 12/28/2024 9:40 AM EDT Office Visit [facility] [address] [place] [address] Arnaud Cordova MD [address] [place] [address] 02/22/2025 1:15 PM EST Office Visit [facility] [facility] [address] [place] [address] Tani Pimentel DO [address] [place], [place] [phone] 05/03/2025 2:45 PM EST [facility] [address] [facility] [address] [place] [address] Bernardo Silverio DO 703 [facility] 150 [place] [address] 06/05/2025 11:00 AM EDT Office Visit [facility] [address] [facility] [place] [address] Javier Morales, [address] [facility] [place] [address] documented as of this encounter Procedures Procedure [...] on filedocumented in this encounter Care Teams Loaders Relationship Specialty Start Date End Date Chris Pelaez MD PCP - General Family Medicine 04/01/23 Isa Machado PA [address] [place] [address] [place] [address] PCP - Medical [place] [employer] 03/08/23 03/07/99 Elvie Greer NP Nurse Practitioner Family Medicine 04/01/23 documented as of this encounter
--- OUTSIDE RECORDS SUMMARY | 2024-11-28 11:24 | XMS_ITS | Encounter Summary ---
Author Organization [facility] Address [address] [place] [address] Care Team Providers Care Claims Account Specialist Name Role Phone Elvie Greer NP Unavailable [phone] Chris Pelaez MD Primary Care Provider [phone] Isa Machado Unavailable Encounter Details Date Type Department Care Team (Late st Contact Info) Description 07/02/2023 Clinisync Result Encounter [facility] External Department Unsolicited Elvie Greer NP [address] [place] [address] Social History Tobacco Use Types Packs/Day Years [...] often do you attend chur ch or yazidi services? Never 04/06/2023 Do you belong to [...] Recorded Patient Health Questionnaire-2 Score 0 06/29/2023 [facility] Questionnaire Answer [...] Allergy [address] [place] [address] Arnaud Cordova MD [address] [place] [address] 02/22/2025 1:15 PM EST Office Visit [facility] [place] [facility] [address] [place] [address] Tani Pimentel DO [address] [address] 05/03/2025 2:45 PM EST [facility] 7[address] [facility] 150 [place] [address] Bernardo Silverio DO 703 [facility] 150 [place] [address] 06/05/2025 11:00 AM EDT Office Visit [facility] [address] [facility] [place] [address] Javier Morales, DO [address] [facility] [place] [address] documented as of this encounter Procedures Procedure Name Priority Date/Time Associated Diagnosis Comments US THYROID 07/02/2023 6:22 AM EDT documented in this encounter Results * US thyroid (07/02/2023 6:22 AM EDT) Anatomical Region Laterality Modality Head, Neck Ultrasound 07/02/2023 6:22 AM EDT Narrative 07/02/2023 6:24 AM EDT [address] [address] Ultrasound Report Signed Patient: TEREZA NAVARRO MR#: [id number] : 1985 Acct:[id number] Age/Sex: 37 / F ADM Date: 07/01/23 Loc: US Attending Dr: Elvie Greer NP Ordering Physician: Elvie Greer NP Date of Service: 07/01/23 Procedure(s): US thyroid Accession Number(s): [id number] cc: Elvie Greer NP [address] [id number] Patient Name: TEREZA NAVARRO MRN: [id number] date: 1985 Sex: F Assigned Patient Location: [place] Current Patient Location: Accession/Order Number: [id number] Exam Date: 07/01/2023 11:42 Report Date: 07/02/2023 [...] M.D. Signed By: 07/02/23623 DD/ 1 TD/TT: Contract Implementation Analyst: Procedure Note Radiology, Radiologist, MD - 07/02/2023 [place] [address] Ultrasound Report Signed Patient: TEREZA NAVARRO KMR#: [id number] : 1985Acct:[id number] Age/Sex: 37 / FADM Date: 07/01/23 Loc: US Attending Dr: Elvie Greer NP Ordering Physician: Elvie Greer NP Date of Service: 07/01/23 Procedure(s): US thyroid Accession Number(s): [id number] cc: Elvie Greer NP [place] [id number] Patient Name: TEREZA NAVARRO MRN: [id number] date: 1985 Sex: F Assigned Patient Location: [place] Current Patient Location: Accession/Order Number: [id number] Exam Date: 07/01/2023 11:42 Report Date: 07/02/2023 [...] Vivas M.D. Signed By:07/02/23623 DD/ 1 TD/TT: Contract Implementation Analyst: us Elvie Greer NP IMG US PROCEDURES Final Result documented in this encounter Visit Diagnoses Not on filedocumented in this encounter Care Teams Claims Account Specialist Relationship Specialty Start Date End Date Chris Pelaez MD PCP - General Family Medicine 04/01/23 Isa Machado PA [address] [place] [address] [place] [address] PCP - Medical [employer] 03/08/23 03/07/99 Elvie Greer NP Nurse Practitioner Family Medicine 04/01/23 documented as of this encounter
--- OUTSIDE RECORDS SUMMARY | 2024-11-28 11:24 | XMS_ITS | Clinical Summary ---
Author Organization [facility] Address [address] [place] [address] Care Team Providers Care Tube Fitter Name Role Phone Unavailable Primary Care Provider [...] 3-dose series) 11/18 Cervical Cancer Screening 11/18/2004 HPV Vaccine (1 - 3-dose SCDM series) 11/18/2010 Mammogram Screening 2023 Influenza Vaccine (#1) 2024 Insurance [employer] P[employer]
--- OUTSIDE RECORDS SUMMARY | 2024-11-28 11:24 | XMS_ITS | Clinical Summary ---
Author Organization [employer] Address [id number] [address] [place] [address] Care Team Providers Care Shop Mechanic Name Role Phone AmadorElvie francis BRONC BUSTER-COMMUNITY SERVICE DIRECTOR Primary Care Provider Allergies Active Allergy Reactions [...] on file Insurance [employer] Care Teams Shop Mechanic Relationship Specialty Start Date End Date Elvie Greer, BRONC BUSTER-COMMUNITY SERVICE DIRECTOR PCP - General Nurse Practitioner 08/03/19
--- OUTSIDE RECORDS SUMMARY | 2024-11-28 11:24 | XMS_ITS | Clinical Summary ---
Author Organization [facility] Address [address] [place] [address] Care Team Providers Care Corporate Strategy Associate Name Role Phone Elvie Greer NP Unavailable [phone] Chris Pelaez MD Primary Care Provider [phone] Isa Machado Unavailable Allergies Active Allergy Reactions Criticality Noted Date Comments Antihistamines, Diphenhydramine-Type 04/01/2023 Diphenhydramine Hives,Itching,Rash,U nkn own Low 08/09/2019 Latex Hives,Itching,Rash,U nkn own Low 08/09/2019 Prednisone 04/01/2023 Medications Potassium 99 MG tablet 1 (one) time each day at the same time Active albuterol HFA 90 mcg/act inhalerIndicatio ns:Moderate persistent asthma without complication (HCC) Inhale 2 puffs every 6 (six) hours if needed for shortness of breath or wheezing 18 g 09/30/19 24 Active estradiol (Climara) 0.05 MG/24HRIndicatio ns:Hormone disorder Place 1 patch over 7 days on the skin 1 (one) time per week 12 patch 3 08/08/19 25 026 Active celecoxib (CeleBREX) 200 MG capsule Take 200 mg by mouth Daily 07/09/19 25 Active azelastine (Astelin) 0.1 % nasal sprayIndications :Environmental and seasonal allergies Administer 2 sprays into each nostril in the morning and 2 sprays before bedtime. Use in each nostril as directed. 90 mL 3 09/08/19 25 026 Active ipratropium (Atrovent) 0.06 % nasal sprayIndications :Environmental and seasonal allergies Administer 2 sprays into each nostril in the morning and 2 sprays in the evening and 2 sprays before bedtime. 45 mL 11 09/08/19 025 Active levothyroxine (Synthroid, Levoxyl) 112 MCG tabletIndication s:Hypothyroidism , unspecified type Take 1 tablet (112 mcg) by mouth Daily 90 tablet 09/27/19 25 025 Active metoprolol succinate XL (Toprol-XL) 50 MG 24 hr tablet Take 50 mg by mouth Daily 09/16/19 25 026 Active triamcinolone (Nasacort) 55 MCG/ACT nasal inhaler Administer 2 sprays into each nostril Daily 10/06/19 Active budesonide-formo terol (Symbicort) 160-4.5 MCG/ACT inhalerIndicatio ns:Moderate persistent asthma without complication (HCC) Inhale 2 puffs in the morning and 2 puffs before bedtime. Rinse mouth with water after use to reduce aftertaste and incidence of candidiasis. Do not swallow. 30.6 g 10/11/19 025 Active buPROPion XL (Wellbutrin XL) 300 MG 24 hr tabletIndication s:Anxiety and depression Take 1 tablet (300 mg) by mouth in the morning. 90 tablet 1 10/11/19 25 025 Active famotidine (Pepcid) 20 MG tabletIndication s:Gastroesophage al reflux disease, unspecified whether esophagitis present Take 1 tablet (20 mg) by mouth at bedtime 90 tablet 1 10/11/19 25 025 Active magnesium oxide (Mag-Ox) 400 (240 Mg) MG tabletIndication s:Hypomagnesemia Take 1 tablet (400 mg) by mouth Daily 90 tablet 1 10/11/19 25 025 Active montelukast (Singulair) 10 MG tabletIndication s:Moderate persistent asthma without complication (HCC) Take 1 tablet (10 mg) by mouth at bedtime 90 tablet 1 10/11/19 25 025 Active pantoprazole (ProtoNix) 40 MG EC tabletIndication s:Gastroesophage al reflux disease, unspecified whether esophagitis present Take 1 tablet (40 mg) by mouth in the morning. Take before meals. Do not crush, chew, or split. 90 tablet 1 10/11/19 25 025 Active hydrOXYzine pamoate (Vistaril) 25 MG capsuleIndicatio ns:Anxiety and depression TAKE 1 CAPSULE BY MOUTH EVERY 8 HOURS NEEDED for itching 90 capsule 1 11/03/19 25 Active Trelegy Ellipta 200-62.5-25 MCG/ACT aerosol powderIndication s:Severe persistent asthma with acute exacerbation (HCC) INHALE 1 PUFF BY MOUTH DAILY 60 each 11/18/19 25 Active hydrOXYzine pamoate (Vistaril) 25 MG capsuleIndicatio ns:Anxiety and depression Take 1 capsule (25 mg) by mouth every 8 (eight) hours if needed for itching 90 capsule 1 06/12/19 25 025 Discontinued progesterone (Prometrium) 100 MG capsuleIndicatio ns:Hormone disorder Take 1 capsule (100 mg) by mouth Daily 90 capsule 3 08/08/19 25 025 Fluticasone-Umec lidin-Vilant (Trelegy Ellipta) 200-62.5-25 MCG/ACT aerosol powderIndication s:Severe persistent asthma with acute exacerbation (HCC) Inhale 1 puff Daily 1 each 11/17/19 25 025 Discontinued Active Problems Problem Noted Date Diagnosed Date Essential hypertension 09/17/2024 Assessment & Plan (10/10/2024 6:59 AM EDT): Please check blood pressure daily and record DASH diet Limit caffeine Take medication as directed Contact office if chest pain, pressure, dizziness, shortness of breath, swelling legs Recommend slow position changes Current meds: b eduarda Aortic valve disorder 09/17/2024 Environmental and seasonal allergies 08/08/2024 Assessment & Plan (08/08/2024 2:59 PM EDT): Sxs not controlled w antihistamines and nasal steroids Used to take allergy injections in the past Will refer to art consultant for evaluation Ventricular arrhythmia 08/03/2024 Assessment & Plan (08/08/2024 6:58 AM EDT): Noted on holter Check stress test and ECHO Send to cardiology Heart palpitations 06/20/2024 Assessment & Plan (10/10/2024 7:00 AM EDT): Saw [facility] on 09/15/24, started on b eduarda I have reviewed their notes Assessment & Plan (08/08/2024 6:58 AM EDT): Reviewed holter Will check stress test and ECHO and refer to cardiology Assessment & Plan (06/20/2024 3:43 PM EDT): Check labs: basic and mg Holter 7 days Hypothyroid 05/09/2024 Assessment & Plan (10/10/2024 7:02 AM EDT): Current med: levothyroxine Check labs yearly, and prn changes in dose or changes in symptoms Had recent dose change in 09/29 Assessment & Plan (05/09/2024 6:06 AM EST): [...] excess calories 1 04/10/2023 Assessment & Plan (10/10/2024 7:00 AM EDT): Discussed with patient their BMI (actual, verses recommended). We have also discussed lifestyle modifications: attempts to perform physical activity as chronic conditions allow, also to monitor dietary intake: increasing protein/fruits/veggies and lowering carb intake (unless contraindicated). Limit sodas, juices, and sugary drinks. Was at 326 in 10/29 Assessment & Plan (08/08/2024 6:59 AM EDT): [...] AM EST): Is already scheduled for 2024 Recurrent ventral hernia with incarceration 08/07 Assessment & Plan (08/31/2023 9:58 AM EDT): [...] Anxiety and depression 04/01/2023 Assessment & Plan (10/10/2024 7:00 AM EDT): Current meds: wellbutrin and uses prn vistaril Assessment & Plan (08/08/2024 6:59 AM EDT): [...] loss 04/01/2023 Hypomagnesemia 04/01/2023 Assessment & Plan (10/10/2024 7:01 AM EDT): On magnesium daily Check labs yearly, and prn dose changes or changes in sxs Assessment & Plan (06/20/2024 3:44 PM EDT): [...] to Rheumatology for evaluation for psoriatic arthritis Resolved Problems Problem Noted Date Diagnosed Date [...] EST): Restart LABA/ICS and singlair as well Acute postoperative pain of right knee 04/01/2023 10/10/2024 Assessment & Plan (05/18/2023 10:00 AM EDT): [...] meloxicam Asking for tramadol for severe pain Umbilical hernia 04/01/2023 08/31/2023 Acute medial meniscal tear 04/01/2023 0 09/30/2023 History of knee problem 03/27/2020 09/0 05/2023 Encounters Date Type Department Care Team Description 11/16/2024 11:00 AM EDT Office Visit [facility] [address] [place] [address] Arnaud Cordova MD Severe persistent asthma with acute exacerbation (HCC) (Primary Dx); Chronic rhinitis 11/16/2024 Refill [facility] [address] [place] [address] Arnaud Cordova MD Severe persistent asthma with acute exacerbation (HCC) 11/16/2024 Bamboo flowsheet [facility] [address] [place] [address] Arnaud Cordova MD 11/16/2024 Travel 11/02/2024 Refill [facility] [address] [place] [address] Elvie Greer NP Anxiety and depression 10/31/2024 3:15 PM EDT Office Visit [facility] [address] [facility] [address] [place] [address] Bernardo Silverio, Recurrent ventral hernia with incarceration (Primary Dx) 10/31/2024 Travel 10/18/2024 Travel 10/17/2024 Travel 10/12/2024 3:45 PM EDT Consult [facility] [address] [place] [address] [address] [place] [address] Bernardo Silverio DO Recurrent ventral hernia 10/12/2024 Travel 10/11/2024 Travel 10/10/2024 2:00 PM EDT [facility] [address] [place] [address] Elvie Greer NP Heart palpitations (Primary Dx); Essential hypertension ; Morbid (severe) obesity due to excess calories ([facility]-HCC); Hypothyroidism, unspecified type ; Anxiety and depression ; Hypomagnesemia; Moderate persistent asthma without complication (HCC); Gastroesophageal reflux disease, unspecified whether esophagitis present; Ventral hernia without obstruction or gangrene 10/10/2024 Bamboo flowsheet [facility] [address] [place] [address] Elvie Greer NP 10/03/2024 Refill [facility] [address] [place] [address] Elvie Greer NP Hypomagnesemia 09/26/2024 Refill [facility] [address] [place] [address] Elvie Greer NP Hypothyroidism, unspecified type (Primary Dx) 09/21/2024 Clinisync Result Encounter [facility] External Department Unsolicited Elvie Greer NP 09/11/2024 8:10 AM EDT Office Visit [facility] [address] [place] [address] [place] [address] Tien Morales DO Hormone disorder (Primary Dx) 09/11/2024 Bamboo flowsheet [facility] [address] [place] [address] [place] [address] Tien Morales DO 09/07/2024 11:00 AM EDT Office Visit [facility] [address] [place] [phone] Arnaud Cordova MD Environmental and seasonal allergies (Primary Dx); Mild intermittent asthma with (acute) exacerbation (HCC) 09/07/2024 Travel 09/06/2024 Telephone [facility] [address] [place] [address] Elvie Greer NP 09/05/2024 Clinisync Result Encounter [facility] External Department Unsolicited Elvie Greer NP 09/05/2024 Clinisync Result Encounter [facility] External Department Unsolicited Elvie Greer NP 08/31/2024 Abstract [facility] [address] [facility] [place] [address] Elvie Greer NP from Last [...] week 04/06/2023 How often do you attend [facility] or temple services? Never 04/06/2023 Do you belong to any clubs o r organizations such as scientology groups, unions, fraternal or athletic groups, or [...] Recorded Patient Health Questionnaire-2 Score 0 08/31/2023 [facility] - Occupational Stress Questionnaire Answer Date [...] place to sleep or slept in a halfway (including now)? No 04/06/2023 Comments Unknown Sex and Gender Information Value Date Recorded Sex Assigned at Not on file Legal Sex Female 6:44 PM EDT Gender Identity Female 03/31/2023 2:50 PM EST Sexual Orientation Not on file Last Filed Vital Signs Vital Sign Reading Time Taken Comments Blood Pressure 112/86 10/10/2024 2:09 PM EDT Pulse 83 10/10/2024 2:09 PM EDT Temperature 36.7 C (98.1 F) 10/10/2024 2:09 PM EDT Respiratory Rate 18 10/10/2024 2:09 PM EDT Oxygen Saturation 99% 10/10/2024 2:09 PM EDT Inhaled Oxygen Concentration - - Weight 127 kg (280 lb) 10/12/2024 3:33 PM EDT Height 167.6 cm (5' 6 ) 10/12/2024 3:33 PM EDT Body Mass Index 45.19 10/12/2024 3:33 PM EDT Plan of Treatment Upcoming Encounters Date Type Department Care Team (Late st Contact Info) Description 12/28/2024 9:40 AM EDT Office Visit [facility] [address] [place] [phone] Arnaud Cordova MD [address] [place] [address] 02/22/2025 1:15 PM EST Office Visit [facility] [address] [place] [phone] Tani Pimentel DO [address] [place] [address] 05/03/2025 2:45 PM EST Office Visit [facility] [address] [facility] [address] [place] [address] Bernardo Silverio DO [address] [facility] [address] [place] [address] 06/05/2025 11:00 AM EDT Office Visit [facility] [address] [place] [address] Tien Morales DO [address] [address] Health Maintenance Due Date Last Done Comments Influenza Vaccine (#1) 2024 12/22/2023, 2022 Mammogram 04/18/2025 04/18/2024 Cervical Cancer Screening 05/30/2029 HPV/Cotest 05/30/2029 Pap Smear 05/30/2029 05/30/2024, 05/27/2023 Procedures Procedure Name Priority Date/Time Associated Diagnosis Comments CT ABDOMEN PELVIS WO IV CONTRAST Routine 10/19/2024 1:09 PM EDT Recurrent ventral hernia ALL THYROID STIM HORMONE Routine 09/21/2024 11:11 AM EDT ALL THYROXINE (T4) FREE Routine 09/21/2024 11:11 AM EDT CA ECHO DOPPLER COMPLETE 09/05/2024 2:17 PM EDT NM MARVIN PERF SPECT REST STR 09/05/2024 1:42 PM EDT PAP SMEAR Routine 05/30/2024 12:00 AM EDT MM TOMOSYNTHESIS SCREENING BI 04/18/2024 11:34 AM EST from Last 3 Months or Most Recently Relevant to Health Maintenance Results * CT abdomen pelvis wo IV contrast (10/19/2024 1:09 PM EDT) Anatomical Region Laterality Modality Body, Pelvis, Abdomen Computed T omography 10/19/2024 1:09 PM EDT Impressions 10/19/2024 1:13 PM EDT Fat-containing midline ventral hernia with a neck measuring 14 mm. Impression dictated by: Mau Chou Jr., D.OGabriel 10/19/2024 1:11 PM Dictation Location: RADIO-PC-23 Transcribed By: PWS 10/19/24 1311 Dictated By: Mau Chou Jr, DO 10/19/24 1309 Signed By: <Electronically signed by Mau Chou Jr, DO in OV> 10/19/24 1311 Narrative 10/19/2024 1:13 PM EDT [facility] [place] [address] [place] [address] CT Scan Report Signed Patient: Tereza Navarro MR#: [id number] : 1985 Acct:[id number] Age/Sex: 38 / F ADM Date: 10/19/24 Loc: CT Room: Type: [facility] Attending Dr: Bernardo Silverio DO Copies to: Bernardo Silverio DO Ordering Provider: Bernardo Silverio DO Date of Service: 10/19/24 CT/CT abdomen pelvis wo con: recurrent ventral hernia CT ABDOMEN AND PELVIS WITHOUT INTRAVENOUS CONTRAST: CLINICAL HISTORY: Recurring ventral hernia. Abdominal pain. COMPARISON: None TECHNIQUE: Spiral images were obtained through the abdomen and pelvis without intravenous contrast. This CT exam was performed using one or more following dose reduction techniques: Automated exposure control, adjustment of the mA and/or kV according to patient size, or use of iterative reconstruction technique. FINDINGS: Lung Bases: [No acute process.] Organs:Suboptimal evaluation due to lack of IV contrast. All bladder has been removed. Liver pancreas spleen and adrenal glands appear unremarkable. Kidneys demonstrate no stone or hydronep hrosis. Abdominal aorta appears normal in caliber.[ GI: Stomach is grossly unremarkable. Small bowel appears nondilated. Appendix is normal. No acute colonic abnormality.[ Pelvis:[Uterus and urinary bladder appear unremarkable. No adnexal mass.] Peritoneum/Retroperitoneum:No free air, free fluid or lymphadenopathy.[ Abd wall/Bones:Midline fat-containing ventral hernia with a neck measuring 14 mm. Osseous structures demonstrate mild degenerative change.[ CT/CT abdomen pelvis wo con Procedure Note Mau Chou Jr., DO - 10/19/2024 [facility] [place] [address] [place] [address] [address] [address] Scan Report Signed Patient: Tereza Navarro KMR#: [id number] : 1985Acct:[id number] Age/Sex: 38 / FADM Date: 10/19/24 Loc: CT Room:Type: [facility] Attending Dr: Bernardo Silverio DO Copies to: Bernardo Silverio DO Ordering Provider: Bernardo Silverio DO Date of Service: 10/19/24 CT/CT abdomen pelvis wo con: recurrent ventralhernia CT ABDOMEN AND PELVIS WITHOUT INTRAVENOUS CONTRAST: CLINICAL HISTORY: Recurring ventral hernia. Abdominal pain. COMPARISON: None TECHNIQUE: Spiral images were obtained through the abdomen and pelviswithout intravenous contrast. This CT exam was performed using one or more following dose reductiontechniques: Automated exposure control, adjustment of the mA and/or kV according to patientsize, or use of iterative reconstruction technique. FINDINGS: Lung Bases: [No acute process.] Organs:Suboptimal evaluation due to lack of IV contrast. All bladder hasbeen removed. Liver pancreas spleen and adrenal glands appear unremarkable. Kidneysdemonstrate no stone or hydronep hrosis. Abdominal aorta appears normal in caliber.[ GI: Stomach is grossly unremarkable. Small bowel appears nondilated.Appendix is normal. No acute colonic abnormality.[ Pelvis:[Uterus and urinary bladder appear unremarkable. No adnexal mass.] Peritoneum/Retroperitoneum:No free air, free fluid or lymphadenopathy.[ Abd wall/Bones:Midline fat-containing ventral hernia with a neck [id number] mm. Osseous structures demonstrate mild degenerative change.[ CT/CT abdomen pelvis wo con IMPRESSION: Fat-containing midline ventral hernia with a neck measuring 14 mm. Impression dictated by: Mau Chou Jr., D.OGabriel 10/19/2024 1:11 PM Dictation Location: [place] [address] Transcribed By: [facility] 10/19/24 1311 Dictated By: Mau Chou Jr, DO 10/19/24 1309 Signed By: <Electronically signed by Mau Chou Jr, DO inOV> 10/19/24 1311 Bernardo Silverio DO IMG CT PROCEDURES Final Result * ALL THYROXINE (T4) FREE (09/21/2024 11:11 AM EDT) FREE T4 0.93 0.76 - 1.46 ng/dL [facility] 09/21/2024 11:1 1 AM EDT 09/21/2024 11:30 AM EDT Narrative [facility] - 09/21/2024 12:35 PM EDT Elvie Greer NP [facility] Final Result Performing Organization Address City/[facility]/ZIP Co de Phone Number [facility]IN[facility] TB * (ABNORMAL) ALL THYROID STIM HORMONE (09/21/2024 11:11 AM EDT) THYROID STIMULATING HORMONE 4.948(H) 0.358 - 3.740 uIU/mL [facility] 09/21/2024 11:1 1 AM EDT 09/21/2024 11:30 AM EDT Narrative [facility] - 09/21/2024 12:35 PM EDT Elvie Greer NP [facility] Final Result [facility] * CA ECHO DOPPLER COMPLETE (09/05/2024 2:17 PM EDT) Anatomical Region Laterality Modality Other 09/05/2024 2:17 PM EDT Narrative 09/05/2024 2:18 PM EDT The [address] [address] Cardiology Report Signed Patient: TEREZA NAVARRO MR#: [id number] : 1985 Acct:[id number] Age/Sex: 38 / F ADM Date: 09/05/24 Loc: CARD Attending Dr: Elvie Greer NP Ordering Physician: Elvie Greer NP Date of Service: 09/05/24 Procedure(s): CA echo doppler complete Accession Number(s): [id number] cc: Elvie Greer NP Patient Name: TEREZA NAVARRO MR#: [id number] : 1985 Exam Date: 09/05/2024 Ordering Doctor: [...] cm2, 2.52 cm2 AoV Area (VTI): Deceleration Glasscock: Pressure Half-Time: Peak Velocity(Antegrade Flow): 1.31 m/s Peak Gradient(Antegrade Flow): 6.87 mm[Hg] Mean Velocity(Antegrade Flow): Mean Gradient(Antegrade Flow): Velocity Time Integral: Tricuspid Valve Peak Velocity (Regurgitant Flow): 2.36 m/s Peak Velocity: Pulmonic Valve Mean Gradient: Mean Velocity: Peak Velocity: Peak Gradient: 4.08 mm[Hg], 4.44 mm[Hg] Right Atrium Right Atrium Systolic Pressure: 54.89 ml, 54.89 ml Dictated by: Harriet Jugn MD on 09/05/2024 at 14:12 Approved by: Harriet Jung MD on 09/05/2024 at 14:17 Dictated By: Harriet Jung M.D. Signed By: 09/05/24 1418 DD/ 1417 TD/TT: Operations Mgr: Procedure Note Radiology, Radiologist, - 09/05/2024 [place] [address] Cardiology Report Signed Patient: TEREZA NAVARRO KMR#: [id number] : 1985Acct:[id number] Age/Sex: 38 / FADM Date: 09/05/24 Loc: CARD Attending Dr: Elvie Greer NP Ordering Physician: Elvie Greer NP Date of Service: 09/05/24 Procedure(s): CA echo doppler complete Accession Number(s): [id number] cc: Elvie Greer NP Patient Name: TEREZA NAVARRO MR#: [id number] : 1985 Exam Date: 09/05/2024 Ordering Doctor: [...] cm2, 2.52 cm2 AoV Area (VTI): Deceleration Glasscock: Pressure Half-Time: Peak Velocity(Antegrade Flow): 1.31 m/s [...] M.D. Signed By:09/05/24 1418 DD/ 1417 TD/TT: Operations Mgr: us Elvie Greer NP [facility] IMAGING Final Result * NM MARVIN PERF SPECT REST STR (09/05/2024 1:42 PM EDT) Anatomical Region Laterality Modality Other 09/05/2024 1:42 PM EDT Narrative 09/05/2024 1:43 [place] [address] Nuclear Medicine Report Signed Patient: TEREZA NAVARRO MR#: [id number] : 1985 Acct:[id number] Age/Sex: 38 / F ADM Date: 08/29/24 Loc: CARD Attending Dr: Elvie Greer NP Ordering Physician: Elvie Greer NP Date of Service: 08/29/24 Procedure(s): NM marvin perf SPECT rest str Accession Number(s): [id number] cc: Elvie Greer NP Patient Name: TEREZA NAVARRO MR#: [id number] : 1985 Exam Date: 08/29/2024 Ordering Doctor: [...] the study was pending per attending physician [facility] . For more details please see separate [...] Signed By: 09/05/24 1343 DD/ 1342 TD/TT: Operations Mgr: Procedure Note Radiology, Radiologist, MD - 09/05/2024 [place] [address] Nuclear Medicine Report Signed Patient: TEREZA NAVARRO KMR#: [id number] : 1985Acct:[id number] Age/Sex: 38 / FADM Date: 08/29/24 Loc: CARD Attending Dr: Elvie Greer NP Ordering Physician: Elvie Greer NP Date of Service: 08/29/24 Procedure(s): NM marvin perf SPECT rest str Accession Number(s): [id number] cc: Elvie Greer NP Patient Name: TEREZA NAVARRO MR#: [id number] : 1985 Exam Date: 08/29/2024 Ordering Doctor: [...] the study was pending per attending physician [facility] . For more details pleasesee separate cardiac [...] Dictated By: Harriet Jung M.D. Signed By:09/05/24 134 DD/ 134 TD/TT: Operations Mgr: us Elvie Greer CULTURAL CENTRE MANAGER [facility] IMAGING Final Result * Pap Smear (05/30/2024 12:00 AM EDT) Swab Cervical swab / Unknown us Tien Morales DO LAB CYTOLOGY ORDERABLES Final Re sult EXTERNAL LAB * MM TOMOSYNTHESIS SCREENING BI (04/18/2024 11:34 AM EST) Anatomical Region Laterality Modality Other 04/18/2024 11:3 4 AM EST Narrative 04/18/2024 11:35 [place] [address] Mammography Report Signed Patient: TEREZA NAVARRO MR#: [id number] : 1985 Acct:[id number] Age/Sex: 38 / F ADM Date: 04/18/24 Loc: MAMMO Attending Dr: Tien Morales D.O. Ordering Physician: Tien Morales D.O. Results: Date of Service: 04/18/24 Follow Up: Procedure(s): MM tomosynthesis screening BI Accession Number(s): [id number] cc: Elvie Greer NP; Tien Morales D.O. Patient Name: TEREZA NAVARRO MR#: [id number] : 1985 Exam Date: 04/18/2024 Ordering Doctor: [...] Treatments None Family Cancers None LOCATION: The [facility] BREAST COMPOSITION: The breasts are [...] Signed By: 04/18/24 1135 DD/ 1134 TD/TT: Operations Mgr: Procedure Note Radiology, Radiologist, MD - 04/18/2024 [place] [address] Mammography Report Signed Patient: TEREZA NAVARRO KMR#: [id number] : 1985Acct:[id number] Age/Sex: 38 / FADM Date: 04/18/24 Loc: MAMMO Attending Dr: Tien Morales D.O. Ordering Physician: Tien Morales D.O.Results: Date of Service: 04/18/24Follow Up: Procedure(s): MM tomosynthesis screening BI Accession Number(s): [id number] cc: Elvie Greer NP; Tien Morales D.O. Patient Name: TEREZA NAVARRO MR#: [id number] : 1985 Exam Date: 04/18/2024 Ordering Doctor: [...] Treatments None Family Cancers None LOCATION: The [facility] BREAST COMPOSITION: The breasts are [...] M.D. Signed By:04/18/24 1135 DD/ 1134 TD/TT: Operations Mgr: Tien Morales DO [facility] IMAG[facility] Final Result from Last 3 Months or Most Recently Relevant to Health Maintenance Insurance [employer] Care Teams Corporate Strategy Associate Relationship Specialty Start Date End Date Chris [place]ae[place] MD PCP - General Family Medicine 04/01/23 Isa Machado PA [address] [place] [address] [place] [address] PCP - Medical [employer] 03/08/23 03/07/99 Elvie Greer NP Nurse Practitioner Family Medicine 04/01/23
--- OUTSIDE RECORDS SUMMARY | 2024-11-28 11:24 | XMS_ITS | Encounter Summary ---
Author Organization [facility] Address [address] [facility] [place] [address] Care Team Providers Care Head Packager Name Role Phone Elvie Greer NP Unavailable [phone] Chris Pelaez MD Primary Care Provider [phone] Isa Machado Unavailable Encounter Details Date Type Department Care Team (Late st Contact Info) Description 02/16/2024 Orders Only [facility] [address] [place] [address] Tani Pimentel DO [address] [place] [address] Right knee pain, unspecified chronicity [...] How often do you attend chur or uatsdin services? Never 04/06/2023 Do you belong to any clubs o r organizations such as hindu groups, unions, fraternal or athletic groups, or [...] Recorded Patient Health Questionnaire-2 Score 0 08/31/2023 [facility] - Occupational Stress Questionnaire Answer Date [...] FRANCISCA Jones Allergy [address] [facility] 360 [place] [address] Arnaud Cordova MD [address] [facility] 360 [place] [address] 02/22/2025 1:15 PM EST Office Visit [facility] [address] [place] [address] Tani Pimentel DO [address] [place] [address] 05/03/2025 2:45 PM EST Office Visit [facility] 7[address] [facility] 150 [place] [address] Bernardo Silverio, DO 703 [facility] 150 [place] [address] 06/05/2025 11:00 AM EDT Office Visit [facility] [address] [place] [address] Javier Morales DO [address] [facility] [place] [address] documented as of this encounter Visit Diagnoses Diagnosis Right knee pain, unspecified chronicity- Primary documented in this encounter Care Teams Head Packager Relationship Specialty Start Date End Date Chris Pelaez MD PCP - General Family Medicine 04/01/23 Isa Machado PA [address] [facility] [place] [address] PCP - Medical [place] Commercial 03/08/23 03/07/99 Elvie Greer NP Nurse Practitioner Family Medicine 04/01/23 documented as of this encounter
--- OUTSIDE RECORDS SUMMARY | 2024-11-28 11:24 | XMS_ITS | Encounter Summary ---
Author Organization [facility] Address [address] [facility] [place] [address] Care Team Providers Care Cna Hha Name Role Phone Elvie Greer NP Unavailable [phone] Chris Pelaez MD Primary Care Provider [phone] Isa Machado Unavailable Encounter Details Date Type Department Care Team (Late st Contact Info) Description 04/28/2023 Abstract [facility] [address] [place] [address] Vivek Dickinson [place] [address] [facility] [place] [address] Social History Tobacco Use Types [...] often do you attend chur ch or nondenominational services? Never 04/06/2023 Do you belong to any clubs o r organizations such as zoroastrian groups, unions, fraternal or athletic groups, or [...] Recorded Patient Health Questionnaire-2 Score 2 04/13/2023 [facility] - [facility]ational Stress Questionnaire Answer Date [...] FRANCISCA Jones Allergy [address] [facility] 360 [place] [address] Arnuad Cordova MD [address] [facility] 360 [place] [address] 02/22/2025 1:15 PM EST Office Visit [facility] [address] [place] [place] [address] Tani Pimentel DO [address] [place], [place] [address] 05/03/2025 2:45 PM EST [facility] [address] [place] [address] 150 [place] [address] Bernardo Silverio, DO 703 [facility] 150 [place] [address] 06/05/2025 11:00 AM EDT Office Visit [facility] [address] [place] [address] Javier Morales, DO [address] [facility] [place] [address] documented as of this encounter Visit Diagnoses Not on filedocumented in this encounter Care Teams Cna Hha Relationship Specialty Start Date End Date Chris Pelaez MD PCP - General Family Medicine 04/01/23 Isa Machado PA [address] [place] [address] PCP - Medical [place] Commercial 03/08/23 03/07/99 Elvie Greer NP Nurse Practitioner Family Medicine 04/01/23 documented as of this encounter
--- OUTSIDE RECORDS SUMMARY | 2024-11-28 11:24 | XMS_ITS | Encounter Summary ---
Author Organization [facility] Address [address] [place] [address] Care Team Providers Care Heel Painter Name Role Phone Elvie Greer NP Unavailable [phone] Chris Pelaez MD Primary Care Provider [phone] Isa Machado Unavailable Encounter Details Date Type Department Care Team (Late st Contact Info) Description 06/09/2024 Orders Only [facility] [address] [facility] [place] [address] Faiza Pacheco MA [address] [place] [address] Social History Tobacco Use Types Packs/Day Years [...] often do you attend chur ch or mandaen services? Never 04/06/2023 Do you belong to [...] Recorded Patient Health Questionnaire-2 Score 0 08/31/2023 [facility] Occupational Stress Questionnaire Answer Date [...] place to sleep or slept in a fpc (including now)? No 04/06/2023 Comments Unknown Sex [...] Allergy [address] [place] [address] [place] [address] Arnaud Cordova MD [address] [place] 360 [place] [address] 02/22/2025 1:15 PM EST Office Visit [facility] [place] [facility] [address] [place] [address] Tani Pimentel DO [address] [place] [address] 05/03/2025 2:45 PM EST Office Visit [facility] 703 [facility] 150 [place] [address] Bernardo Silverio DO 7[address] [facility] 150 [place] [address] 06/05/2025 11:00 AM EDT Office Visit [facility] [address] [facility] [place] [address] Javier Morales DO [address] [facility] [place] [address] documented as of this encounter Procedures [...] on filedocumented in this encounter Care Teams Heel Painter Relationship Specialty Start Date End Date Chris Pelaez MD PCP - General Family Medicine 04/01/23 Isa Machado PA [address] [place] [address] [place] [address] PCP - Medical [place] Commercial 03/08/23 03/07/99 Elvie Greer NP Nurse Practitioner Family Medicine 04/01/23 documented as of this encounter
--- OUTSIDE RECORDS SUMMARY | 2024-11-28 11:24 | XMS_ITS | Encounter Summary ---
Author Organization [facility] Address [address] [place] [address] Care Team Providers Care Retail Loss Prevention Investigator Name Role Phone Elvie Greer NP Unavailable [phone] Chris Pelaez MD Primary Care Provider [phone] Isa Machado Unavailable Encounter Details Date Type Department Care Team (Late st Contact Info) Description 07/02/2023 Orders Only [facility] [address] [place] [address] Elvie Greer NP [address] [place] [address] Social History Tobacco Use Types Packs/Day Years [...] any clubs o r organizations such as episcopal groups, unions, fraternal or athletic groups, or [...] Recorded Patient Health Questionnaire-2 Score 0 06/29/2023 [facility]at iontx Health - Occupational Stress Questionnaire Answer Date [...] Visit FRANCISCA Jones Allergy [address] [facility] 360 [place] [address] Arnaud Cordova MD [address] [facility] 360 [place] [address] 02/22/2025 1:15 PM EST Office Visit [facility] [address] [place] [address] Tani Pimentel DO [address] [address] 05/03/2025 2:45 PM EST [facility] Kapil GOMEZ [facility] 150 [place] [address] Bernardo Silverio, DO 703 [facility] 150 [place] [address] 06/05/2025 11:00 AM EDT Office Visit [facility] [address] [facility] [place] [address] Javier Morales DO [address] [facility] [address] [place], [place] [address] documented as of this encounter Procedures Procedure Name Priority Date/Time Associated Diagnosis Comments US HEAD NECK SOFT TISSUE Routine 07/01/2023 8:37 AM EDT documented in this encounter Results * US head neck soft tissue (07/01/2023 8:37 AM EDT) Anatomical Region Laterality Modality Head, Neck Ultrasound us Elvie Greer STRAINER CLEANER IMG US PROCEDURES Final Result documented in this encounter Visit Diagnoses Not on filedocumented in this encounter Care Teams Retail Loss Prevention Investigator Relationship Specialty Start Date End Date Chris Pelaez MD PCP - General Family Medicine 04/01/23 Isa Machado PA [address] [facility] [place] [address] PCP - Medical [place] Commercial 03/08/23 03/07/99 Elvie Greer NP Nurse Practitioner Family Medicine 04/01/23 documented as of this encounter
--- OUTSIDE RECORDS SUMMARY | 2024-11-28 11:24 | XMS_ITS | Encounter Summary ---
Author Organization [facility] Address [address] [place] [address] Care Team Providers Care College Professor Name Role Phone Elvie Greer NP Unavailable [phone] Chris Pelaez MD Primary Care Provider [phone] Isa Machado Unavailable Encounter Details Date Type Department Care Team (Late st Contact Info) Description 06/25/2023 Orders Only [facility] [address] [facility] [place] [address] Javier Morales, [address] [place] [address] [place] [address] Social History Tobacco Use Types [...] How often do you attend chur or yazidism services? Never 04/06/2023 Do you belong to any clubs o r organizations such as yazidi groups, unions, fraternal or athletic groups, or [...] Recorded Patient Health Questionnaire-2 Score 0 06/29/2023 [facility] of Occupat ionma Health - Occupational Stress Questionnaire Answer Date [...] place to sleep or slept in a mcfp (including now)? No 04/06/2023 Comments Unknown Sex [...] FRANCISCA Jones Allergy [address] [facility] 360 [place] [address] Arnaud Cordova MD [address] [place] 360 [place] [address] 02/22/2025 1:15 PM EST Office Visit [facility] [address] [place] [address] Tani Pimentel DO [address] [place] [address] 05/03/2025 2:45 PM EST [facility] Kapil GOMEZ [place] 150 [place] [address] Bernardo Silverio, DO 7[address] [facility] [place] 150 [place] [address] 06/05/2025 11:00 AM EDT Office Visit [facility] [address] [facility] [place] [address] Javier Morales DO [address] [facility] [address] [place], [place] [address] documented as of this encounter Procedures Procedure Name Priority Date/Time Associated Diagnosis Comments SCANNED LABS Routine 06/25/2023 9:44 AM EDT documented in this encounter Results * SCANNED LABS (06/25/2023 9:44 AM EDT) Javier Morales DO LAB CHG PERFORMABLES Final Resul t documented in this encounter Visit Diagnoses Not on filedocumented in this encounter Care Teams College Professor Relationship Specialty Start Date End Date Chris Pelaez MD PCP - General Family Medicine 04/01/23 Isa Machado PA [address] [place] [address] [place] [address] PCP - Medical [place] Commercial 03/08/23 03/07/99 Elvie Greer NP Nurse Practitioner Family Medicine 04/01/23 documented as of this encounter
--- OUTSIDE RECORDS SUMMARY | 2024-11-28 11:24 | XMS_ITS | Encounter Summary ---
Author Organization [facility] Address [address] [place] [address] Care Team Providers Care Seed And Fertilizer Specialist Name Role Phone Elvie Greer NP Unavailable [phone] Chris Pelaez MD Primary Care Provider Isa Machado Unavailable Encounter Details Date Type Department Care Team (Late st Contact Info) Description 04/11/2023 Abstract [facility] [address] [place] [address] Elvie Greer NP [address] [place] [address] Social History Tobacco Use Types Packs/Day Years [...] often do you attend chur ch or jewish services? Never 04/06/2023 Do you belong to any clubs o r organizations such as amish groups, unions, fraternal or athletic groups, or [...] Recorded Patient Health Questionnaire-2 Score 2 04/13/2023 [facility] of Occupat ional Health - Occupational Stress [...] on file documented as of this encounter Functional Status * Over the past 2 weeks, how often have you been bothered by any of the following problems? Question Answer Date of Assessment Author Little interest or pleasure in doing things Several days 04/13/2023 10:53 AM Lor Moore MA Feeling down, depressed, or hopeless Several days 04/13/2023 10:53 AM Harper Moore MA Patient Health Questionnaire-2 Score 2 04/13/2023 10:53 AM Dorinda Moore MA * If you checked off any problems on this questionnaire so far, Question Answer Date of Assessment Author How difficult have these problems made it for you to do your work, take care of things at home, or get along with other people? Not difficult at all 04/13/2023 10:53 AM Lo Moore MA documented as of this encounter Plan of Treatment Upcoming Encounters Date Type Department Care Team (Late st Contact Info) Description 12/28/2024 9:40 AM EDT Office Visit [facility] [place] [facility] [address] [place] [address] [place] [address] Arnaud Cordova MD [address] [place] 360 [place] [address] 02/22/2025 1:15 PM EST Office Visit [facility] [place] [facility] [address] [address] Tani Pimentel, DO [address] [place] [address] 05/03/2025 2:45 PM EST [facility] [address] [place] 150 [place] [address] Bernardo Silverio DO [address] [place] 150 [place] [address] 06/05/2025 11:00 AM EDT Office Visit [facility] [address] [facility] [place] [address] Javier Morales DO [address] [facility] [place] [address] documented as of this encounter Visit Diagnoses Not on filedocumented in this encounter Care Teams Seed And Fertilizer Specialist Relationship Specialty Start Date End Date Chris Pelaez MD PCP - General Family Medicine 04/01/23 Isa Machado PA [address] [place] [address] PCP - Medical [place] Commercial 03/08/23 03/07/99 Elvie Greer NP Nurse Practitioner Family Medicine 04/01/23 documented as of this encounter
--- OUTSIDE RECORDS SUMMARY | 2024-11-28 11:24 | XMS_ITS | Encounter Summary ---
Author Organization [facility] Address [address] [place] [address] Care Team Providers Care Construction Grip Name Role Phone Elvie Greer NP Unavailable [phone] Chris Pelaez MD Primary Care Provider [phone] Isa Machado Unavailable Encounter Details Date Type Department Care Team (Late st Contact Info) Description 04/01/2023 Orders Only [facility] [address] [place] [address] Lor Reyes MA Social History Tobacco Use Types Packs/Day Years [...] Office Visit [facility] [address] [facility] [place] 360 [place] [address] Arnaud Cordova MD [address] [facility] 360 [place] [address] 02/22/2025 1:15 PM EST Office Visit [facility] [address] [place] [address] Tani Pimentel, DO [address] [place] [address] 05/03/2025 2:45 PM EST [facility] [address] [place] [address] [place] [address] Bernardo Silverio, DO [address] [place] 150 [place] [address] 06/05/2025 11:00 AM EDT Office Visit FRANC[facility]CA [facility] [address] [place] [address] Javier Morales DO [address] [facility] [address] [place], [place] [address] documented as of this encounter Visit Diagnoses Not on filedocumented in this encounter Care Teams Construction Grip Relationship Specialty Start Date End Date Chris Pelaez MD PCP - General Family Medicine 04/01/23 Isa Machado PA [address] [facility] [place] [address] PCP - Medical [place] Commercial 03/08/23 03/07/99 Elvie Greer NP Nurse Practitioner Family Medicine 04/01/23 documented as of this encounter
--- OUTSIDE RECORDS SUMMARY | 2024-11-28 11:24 | XMS_ITS | Encounter Summary ---
Author Organization [facility] Address [address] [place] [address] Care Team Providers Care Coil Spring Assembler Name Role Phone Elvie Greer NP Unavailable [phone] Chris Pelaez MD Primary Care Provider Isa Machado Unavailable Encounter Details Date Type Department Care Team (Late st Contact Info) Description 08/31/2024 Abstract [facility] [address] [place] [address] Elvie Greer NP [address] [place] [address] Social History Tobacco Use Types Packs/Day Years [...] How often do you attend chur or roman catholic services? Never 04/06/2023 Do you belong to any clubs o r organizations such as zoroastrianism groups, unions, fraternal or athletic groups, or [...] Health Questionnaire-2 Score 0 08/31/2023 [facility] of Occupat ional Health - [...] place to sleep or slept in a senior living (including now)? No 04/06/2023 Comments Unknown Sex [...] FRANCISCA Jones Allergy [address] [facility] 360 [place] [address] Arnaud Cordova MD [address] [place] 360 [place] [address] 02/22/2025 1:15 PM EST Office Visit [facility] [address] [place] [place] [address] Tani Pimentel DO [address] [facility] [address] 05/03/2025 2:45 PM EST Office Visit [facility] 150 [place] [address] Bernardo Silverio, DO 703 [facility] 150 [place], [place] [address] 06/05/2025 11:00 AM EDT Office Visit [facility] [address] [place] [address] Javier Morales DO [address] [facility] [place] [address] documented as of this encounter Visit Diagnoses Not on filedocumented in this encounter Care Teams Coil Spring Assembler Relationship Specialty Start Date End Date Chrsi Pelaez MD PCP - General Family Medicine 04/01/23 Isa Machado PA [address] [facility] [place] [address] PCP - Medical [place] Commercial 03/08/23 03/07/99 Elvie Greer NP Nurse Practitioner Family Medicine 04/01/23 documented as of this encounter
--- OUTSIDE RECORDS SUMMARY | 2024-11-28 11:24 | XMS_ITS | Encounter Summary ---
Author Organization [facility] Address [address] [place] [address] Care Team Providers Care Affiliate Marketing Specialist Name Role Phone Elvie Greer NP Unavailable [phone] Chris Pelaez MD Primary Care Provider [phone] Isa Machado Unavailable Encounter Details Date Type Department Care Team (Latest Contact Info) Description 11/16/2024 Travel Social History Tobacco Use Types Packs/Day [...] often do you attend chur ch or orthodox services? Never 04/06/2023 Do you belong to any clubs o r organizations such as islam groups, unions, fraternal or athletic groups, or [...] Recorded Patient Health Questionnaire-2 Score 0 08/31/2023 [facility] of Occupat ional Health - Occupational [...] FRANCISCA Jones Allergy [address] [facility] 360 [place] [address] Arnaud Cordova MD [address] [facility] 360 [place] [address] 02/22/2025 1:15 PM EST Office Visit [facility] [place] [place] [facility] [address] [place] [address] Tani Pimentel, DO [address] [place] [address] 05/03/2025 2:45 PM EST [facility] Visit [facility] 703 [facility] 150 [place] [address] Bernardo Silverio DO 703 [facility] 150 [place] [address] 06/05/2025 11:00 AM EDT Office Visit FRANC[facility]CA [facility] [address] [place] [address] [place] [address] Javier Morales DO [address] [facility] [address] [place], [place] [address] documented as of this encounter Visit Diagnoses Not on filedocumented in this encounter Care Teams Affiliate Marketing Specialist Relationship Specialty Start Date End Date Chris Pelaez MD PCP - General Family Medicine 04/01/23 Isa Machado PA [address] [facility] [place] [address] PCP - Medical [place] Commercial 03/08/23 03/07/99 Elvie Greer NP Nurse Practitioner Family Medicine 04/01/23 documented as of this encounter
--- OUTSIDE RECORDS SUMMARY | 2024-11-28 11:24 | XMS_ITS | Encounter Summary ---
Author Organization [facility] Address [address] [place] [address] Care Team Providers Care Camp Tender Name Role Phone Elvie Greer NP Unavailable [phone] Chris Pelaez MD Primary Care Provider [phone] Isa Machado Unavailable Reason for Visit * Reason Comments Med Change Request Encounter Details Date Type Department Care Team (Late st Contact Info) Description 11/16/2024 Refill [facility] [address] [facility] [place] 360 [place] [address] Arnaud Cordova MD [address] [facility] 360 [place] [address] Severe persistent asthma with acute exacerbation (HCC) Social History Tobacco Use Types [...] How often do you attend chur or restorationist services? Never 04/06/2023 Do you belong to [...] Recorded Patient Health Questionnaire-2 Score 0 08/31/2023 [facility] of Occupat ional Health - Occupational [...] place to sleep or slept in a snf (including now)? No 04/06/2023 Comments Unknown Sex [...] Office Visit [facility] [address] [place] [address] Arnaud Cordova MD [address] [facility] 360 [place] [address] 02/22/2025 1:15 PM EST Office Visit [facility] [address] [place] [address] Tani Pimentel DO [address] [place] [address] 05/03/2025 2:45 PM EST [facility] [address] [place] 150 [place] [address] Bernardo Silverio DO 703 [facility] 150 [place] [address] 06/05/2025 11:00 AM EDT Office Visit [facility] [place] [facility] [address] [facility] [place] [address] Javier Morales DO [address] [facility] [place] [address] documented as of this encounter Visit Diagnoses Diagnosis Severe persistent asthma with acute exacerbation (HCC) documented in this encounter Care Teams Camp Tender Relationship Specialty Start Date End Date Chris Pelaez MD PCP - General Family Medicine 04/01/23 Isa Machado PA [address] [place] [address] [place] [address] PCP - Medical [place] Commercial 03/08/23 03/07/99 Elvie Greer NP Nurse Practitioner Family Medicine 04/01/23 documented as of this encounter
--- OUTSIDE RECORDS SUMMARY | 2024-11-28 11:25 | XMS_ITS | Encounter Summary ---
Author Organization [facility] Address [address] [place] [address] Care Team Providers Care Gear Tooth Grinding Machine Operator Name Role Phone Elvie Greer NP Unavailable [phone] Chris Pelaez MD Primary Care Provider Isa Machado Unavailable Encounter Details Date Type Department Care Team (Late st Contact Info) Description 01/25/2024 Orders Only [facility] [address] [facility] [place] [address] Elvie Greer, JONN [address] [place] [address] Social History Tobacco Use Types Packs/Day Years [...] often do you attend chur ch or jew services? Never 04/06/2023 Do you belong to any clubs o r organizations such as religious groups, unions, fraternal [...] Recorded Patient Health Questionnaire-2 Score 0 08/31/2023 [facility] Occupat ional Health - Occupational Stress [...] FRANCISCA Jones [facility] [address] [facility] [address] [place] [address] Arnaud Cordova MD [address] [place] [address] 02/22/2025 1:15 PM EST Office Visit [facility] [address] [place] [address] Tani Pimentel DO [address] [place] [address] 05/03/2025 2:45 PM EST Office Visit [facility] [address] [place] [phone] Bernardo Silverio, DO [address] [facility] [address] [place] [address] 06/05/2025 11:00 AM EDT Office Visit [facility] [address] [facility] [place] [address] Javier Morales DO [address] [facility] [address] [place], [place] [id number] documented as of this encounter Procedures Procedure [...] Chest Radiographic Hollie ging us Elvie Greer TYPESETTING SUPERVISOR IMG XR PROCEDURES Final Result documented in this encounter Visit Diagnoses Not on filedocumented in this encounter Care Teams Gear Tooth Grinding Machine Operator Relationship Specialty Start Date End Date Chris Pelaez MD PCP - General Family Medicine 04/01/23 Isa Machado PA [address] [facility] [place] [address] PCP - Medical [employer] 03/08/23 03/07/99 Elvie Greer NP Nurse Practitioner Family Medicine 04/01/23 documented as of this encounter
--- OUTSIDE RECORDS SUMMARY | 2024-11-28 11:25 | XMS_ITS | Encounter Summary ---
Author Organization [facility] Address [address] [place] [address] Care Team Providers Care Shorts Sifter Name Role Phone Elvie Greer NP Unavailable [phone] Chris Pelaez MD Primary Care Provider [phone] Isa Machado Unavailable Encounter Details Date Type Department Care Team (Late st Contact Info) Description 08/07/2024 Orders Only [facility] [address] [place] [address] Elvie Greer, JONN [address] [place] [address] Social History Tobacco Use Types Packs/Day Years [...] often do you attend chur ch or latter day services? Never 04/06/2023 Do you belong to any clubs o r organizations such as anabaptist groups, unions, fraternal or athletic groups, or [...] Recorded Patient Health Questionnaire-2 Score 0 08/31/2023 [facility] of Occupat ional Health - Occupational [...] FRANCISCA Jones Allergy [address] [facility] [address] [place] [address] Arnaud Cordova MD [address] [place] [address] 02/22/2025 1:15 PM EST Office Visit [facility] [address] [place] [address] Tani Pimentel DO [address] [place] [place] [address] 05/03/2025 2:45 PM EST Office Visit [facility] [address] [place] [phone] Bernardo Silverio, DO [address] [facility] [address] [place] [address] 06/05/2025 11:00 AM EDT Office Visit [facility] [address] [facility] [place] [address] Javier Morales DO [address] [facility] [address] [place], [place] [id number] documented as of this encounter Procedures Procedure Name Priority Date/Time Associated Diagnosis Comments CARD HOLTER MONITOR RECORDING Routine 08/07/2024 11:08 AM EDT documented in this encounter Results * CARD HOLTER MONITOR RECORDING (08/07/2024 11:08 AM EDT) Anatomical Region Laterality Modality Radiographic Hollie ging us Elvie Greer ODD TICKET CLERK IMG XR PROCEDURES Final Result documented in this encounter Visit Diagnoses Not on filedocumented in this encounter Care Teams Shorts Sifter Relationship Specialty Start Date End Date Chris Pelaez MD PCP - General Family Medicine 04/01/23 Ias Machado PA [address] [place] [address] [place] [address] PCP - Medical [employer] 03/08/23 03/07/99 Elvie Greer NP Nurse Practitioner Family Medicine 04/01/23 documented as of this encounter
--- OUTSIDE RECORDS SUMMARY | 2024-11-28 11:25 | XMS_ITS | Encounter Summary ---
Author Organization [facility] Address [address] [place] [address] Care Team Providers Care Mate First Name Role Phone Elvie Greer NP Unavailable [phone] Chris Pelaez MD Primary Care Provider Isa Machado Unavailable Encounter Details Date Type Department Care Team (Late st Contact Info) Description 08/03/2024 Orders Only [facility] [address] [facility] [place] [address] Elvie Greer, JONN [address] [place] [address] Social History Tobacco Use Types Packs/Day Years [...] often do you attend chur ch or hoahaoism services? Never 04/06/2023 Do you belong to [...] Recorded Patient Health Questionnaire-2 Score 0 08/31/2023 [facility] of Occupat ional Health - Occupational [...] place to sleep or slept in a nursing home (including now)? No 04/06/2023 Comments Unknown [...] FRANCISCA Jones Allergy [address] [facility] [address] [place] [phone] Arnaud Cordova MD [address] [place] [address] 02/22/2025 1:15 PM EST Office Visit [facility] [address] [place] [address] Tani Pimentel DO [address] [place] [address] 05/03/2025 2:45 PM EST Office Visit [facility] [address] [place] [phone] Bernardo Silverio, DO [address] [facility] [address] [place] [address] 06/05/2025 11:00 AM EDT Office Visit [facility] [address] [place] [address] Javier Morales DO [address] [facility] [place] [address] documented as of this encounter Procedures Procedure Name Priority Date/Time Associated Diagnosis Comments CARD HOLTER MONITOR RECORDING Routine 08/03/2024 9:16 AM EDT documented in this encounter Results * CARD HOLTER MONITOR RECORDING (08/03/2024 9:16 AM EDT) Anatomical Region Laterality Modality Radiographic Hollie ging us Elvie Greer ASSISTANT FOREMAN IMG XR PROCEDURES Final Result documented in this encounter Visit Diagnoses Not on filedocumented in this encounter Care Teams Mate First Relationship Specialty Start Date End Date Chris Pelaez MD PCP - General Family Medicine 04/01/23 Isa Machado PA [address] [place] [address] [place] [address] PCP - Medical [employer] 03/08/23 03/07/99 Elvie Greer NP Nurse Practitioner Family Medicine 04/01/23 documented as of this encounter
--- OUTSIDE RECORDS SUMMARY | 2024-11-28 11:29 | XMS_ITS | CCD ---
Author Organization [facility] Care Team Providers Care Rug Receiving Clerk Name Role Phone AICHHOLZ, ASSISTANT GOLF COURSE SUPERINTENDENT ELVIE Primary Care Unavailable ABEL, DR KRISTY Yarbrough Admitting Unavailable ABEL, DR KRISTY Yarbrough Consulting Unavailable ABEL, DR KRISTY Yarbrough Attending Unavailable CHAN RICHEY Consulting Unavailable AICHHOLZ, ASSISTANT GOLF COURSE SUPERINTENDENT ELVIE Primary Care Unavailable AICHHOLZ, ASSISTANT GOLF COURSE SUPERINTENDENT ELVIE Consulting Unavailable AICHHOLZ, ASSISTANT GOLF COURSE SUPERINTENDENT ELVIE Attending Unavailable AICHHOLZ, ASSISTANT GOLF COURSE SUPERINTENDENT ELVIE Admitting Unavailable AICHHOLZ, ASSISTANT GOLF COURSE SUPERINTENDENT ELVIE Primary Care Unavailable BO ., DR FOFANA Consulting Unavailabl e BO ., DR FOFANA Attending Unavailvishal SORIANO ., DR FOFANA Admitting UnavailMary Jo Sohemaker Unavailable Percy ENVIRONMENTAL SYSTEMS COORDINATOR, Elvie Unavailable Chris Pelaez MD Primary Care Provider [phone] Adelina SAGASTUME, Jamshid Jha Attending Unavailable Elvie Greer Primary Care Provider MD Ghassan Ramos Attending Provider [phone] Percy ENVIRONMENTAL SYSTEMS COORDINATOR, Elvie Unavailable ELVIE GREER Primary Care Physician Chan Khan Admitting Unavailable Khan, Chan Cazares Attending Unavailable Khan, Chan Cazares Referring Unavailable Khan, Chan T Referring Unavailable Khan, Chan T Admitting Unavailable Khan, Chan Cazares Attending Unavailable Khan, Chan Cazares Attending Unavailable Khan, Chan Cazares Referring Unavailable Khan, Chan Cazares Admitting Unavailable Elis Blackwell Unavailable Unavailable Loren, Chan Cazares Admitting Unavailable Loren, Chan Cazares Attending Unavailable Loren, Chan Cazares Referring Unavailable TIMMY JUNG Attending Unavailable Elvie Greer Primary Care Provider [phone] Bernardo Silverio DO Attending Provider Ghassan Ramos Attending Unavailable Aicgallo, Elvie Dickerson Primary Care Unavailable Ghassan Ramos Admitting Unavailable Aicgallo, Elvie Dickerson Primary Care Unavailable Bernardo Silverio Admitting Unavailable Bernardo Silverio Attending Unavailable Isa Ordaz Unavailable Percy ENVIRONMENTAL SYSTEMS COORDINATOR, Elvie Unavailable Chris Pelaez MD Primary Care Provider BALDOMERO STEPHENSON Attending Unavailable KHAN, CHAN T Referring Unavailable FERNANDEZ, KYLEE Attending Unavailable KHAN, CHAN T Referring Unavailable BRINK, SUMEET Attending Unavailable KHAN, CHAN T Referring Unavailable FERNANDEZ, KYLEE Attending Unavailable KHAN, CHAN T Referring Unavailable ELIS CARDENAS Attending Unavailable KHAN, CHAN T Referring Unavailable [...] ANDREWJAVIER Attending Unavailable AICHHOLZ, ELVIE Attending Unavailable KHAN, CHAN T Referring Unavailable KHAN, CHAN T Attending Unavailable KHAN, CHAN T Referring Unavailable ANDREWSHERI ALVAREZY Attending Unavailable AICHHOLZ, ELVIE Attending Unavailable RAMBASEPRABHAKAR Welch Attending Unavailable AICHHOLZ, ELVIE Referring Unavailable ANDREWJAVIER Attending Unavailable AICHHOLZELVIE Attending Unavailable BERNARDO SILVERIO Attending Unavailable AICGALLO, ELVIE Referring Unavailable BERNARDO SILVERIO Attending Unavailable PRABHAKAR CORDOVA Attending Unavailable MARIANO MCBRIDE Attending Unavailable KHAN, CHAN T Referring Unavailable MCBRIDE, MARIANO Yun Attending Unavailable KHAN, CHAN T Referring Unavailable MCBRIDE, MARIANO Yun Attending Unavailable KHAN, CHAN T Referring Unavailable MCBRIDE, MARIANO Yun Attending Unavailable KHAN, CHAN T Referring Unavailable MCBRIDE, MARIANO Yun Attending Unavailable KHAN, CHAN T Referring Unavailable FERNANDEZKYLEE Attending Unavailable KHAN, CHAN T Referring Unavailable SACHINBALDOMERO Attending Unavailable KHAN, CHAN T Referring Unavailable KHAN, CHAN T Referring Unavailable KHAN, CHAN T Attending Unavailable KHAN, CAHN T Referring Unavailable Allergies Allergy Classification Reported Allergen(s) Allergy Type Date of Onset Reaction(s) Facility (1 source) diphenhydrAMINE Drug Allergy [facility] Repository (9 sources) Latex; Translations: [Latex] Drug allergy (disorder) 11-26-19 Unknown Reaction, Hives [facility] Repository (10 sources) diphenhydrAMINE; Translations: [diphenhydramine] Drug Allergy 08-09-19 Unknown (qualifier value) [facility] (1 source) Latex Propensity to adverse reactions Unknown [email or web address] Other (20 sources) diphenhydrAMINE Drug Allergy 08-09-19 Hives, Itching, Rash, Unknown [facility] (20 sources) Latex Propensity to adverse reactions 08-09-19 Hives, Itching, Rash, Unknown [facility] (20 sources) Prednisone; Translations: [predniSONE] Propensity to adverse reactions 04-01-19 [facility] (20 sources) Antihistamines, Diphenhydramine-Ty pe Propensity to adverse reactions 04-01-19 [facility] (2 sources) predniSONE; Translations: [prednisone] Drug Allergy Unknown (qualifier value) [facility] (1 source) natural latex rubber; Translations: [LATEX, NATURAL RUBBER] Propensity to adverse reactions to drug (disorder) 08-09-19 [facility] Repository (1 source) diphenhydrAMINE Drug Allergy 11-26-19 [facility] (1 source) Latex Drug allergy (disorder) 11-26-19 [facility] Repository Medications Current Medications Medication Drug [...] every four hours for pain HYDROcodone-acetamin ophen ([place]) 5-325 MG tablet Indications: Primary osteoarthritis of [...] for pain. Start Date: 02/16/24 Status: Ordered [id number] 200 actuat albuterol 0.09 mg/actuat metered dose inhaler (20 sources) beta2-Adrenergic Agonist Start: 09-30-2023 take 2 puff(s) by inhalation every six hours for wheezing albuterol HFA 90 mcg/act inhaler Indications: Moderate persistent asthma without complication (HCC) Inhale 2 [...] after Surgery 30 tablet 02/16/2024 03/17/2024 Active azelastine hydrochloride 0.137 mg/actuat metered dose nasal spray (19 sources) Histamine-1 Receptor Antagonist Start: 09-07-2024 End: 09-07-2025 take 2 spray(s) nasal route in the morning azelastine (Astelin) 0.1 % nasal spray Indications: Environmental and seasonal allergies Administer 2 sprays into each nostril in the morning and 2 sprays before bedtime. Use in each nostril as directed. 90 mL 3 09/07/2024 09/07/2025 Active 60 actuat budesonide 0.16 mg/actuat / formoterol fumarate 0.0045 mg/actuat metered dose inhaler (20 sources) Corticosteroid, beta2-Adrenergic Agonist Start: 11-26-2023 Start: 09-30-2023 End: 01-08-2025 take 2 puff(s) by inhalation in the morning budesonide-formoterol (Symbicort) 160-4.5 MCG/ACT inhaler Indications: Moderate persistent asthma without complication (HCC) Inhale 2 puffs in the morning and 2 puffs before bedtime. Rinse mouth with water after use to reduce aftertaste and incidence of candidiasis. Do not swallow. 30.6 g 1 10/10/2024 01/08/2025 Active Start: 04-13-2023 End: 07-12-2023 take 2 [...] November 26, 2023 12:00am Start: 09-28-2023 End: 01-08-2025 take 1 tablet by mouth every twenty-four hours in the morning buPROPion XL (Wellbutrin XL) 300 MG 24 hr tablet Indications: Anxiety and depression Take 1 tablet (300 mg) by mouth in the morning. 90 tablet 1 10/10/2024 01/08/2025 Active Start: 04-13-2023 End: 05-13-2023 take 1 tablet by mouth every twenty-four hours in the morning buPROPion XL (Wellbutrin XL) 150 MG 24 hr tablet Indications: Anxiety and depression (CMS/HCC) Take 1 tablet (150 mg) by mouth in the morning. Do not crush, chew, or split.. 30 tablet 1 04/13/2023 05/13/2023 Active calcitriol 0.17413 mg oral capsule (20 sources) Vitamin D3 Analog Start: 01-21-2024 End: 05-09-2024 calcitriol (Rocaltrol) 0.25 MCG capsule Take 0.25 mcg by mouth 01/21/2024 05/09/2024 Discontinued (Therapy completed) Start: 01-21-2024 take 1 capsule by [facility] once daily calcitriol 0.25 mcg Cap 0.25 mcg = 1 cap(s), Oral, Daily, Refills(s) 0, Prophylaxis Start Date: 01/21/24 Status: Ordered take 1 capsule by [facility] in the morning calcitriol (Rocaltrol) 0.25 MCG capsule Take 0.25 mcg by mouth in the morning. 0 Active celecoxib 200 mg oral capsule (20 sources) Nonsteroidal Anti-inflammatory Drug Start: 07-08-2024 take 1 capsule by mouth once daily celecoxib (CeleBREX) 200 MG capsule Take 200 mg by mouth Daily 07/08/2024 Active Start: 11-26-2023 End: 06-20-2024 take 1 capsule by mouth [...] 11/20/2023 Active cephalexin 500 mg oral capsule (2 sources) Cephalosporin Antibacterial Start: 11-26-2023 take 1 capsule by mouth three times daily cetirizine hydrochloride 10 mg oral tablet (1 [...] 1 02/16/2024 02/26/2024 Active 168 hr estradiol 0.22981 mg/hr transdermal system (20 sources) Estrogen Start: 08-07-2024 End: 08-07-2025 estradiol (Climara) 0.05 MG/24HR Indications: Hormone disorder Place 1 patch over 7 days on the skin 1 (one) time per week 12 patch 3 08/07/2024 08/07/2025 Active famotidine 20 mg oral tablet (20 sources) Histamine-2 Receptor Antagonist Start: 11-26-2023 Famotidine Active MG PO November 26, 2023 12:00am Start: 09-30-2023 End: 01-08-2025 take 1 tablet by mouth at bedtime famotidine (Pepcid) 20 MG tablet Indications: Gastroesophageal reflux disease, unspecified whether esophagitis present Take 1 tablet (20 mg) by mouth at bedtime 90 tablet 1 10/10/2024 01/08/2025 Active Fish Oils (2 sources) Start: 01-21-2024 take 1 capsule by mo uth once daily Fish Oil 1000 mg oral capsule 1,000 mg = 1 cap(s), Oral, Daily, Refills(s) 0, Prophylaxis Start Date: 01/21/24 Status: Ordered take 1 capsule by mouth once bharath ly Fish Oil 1000 MG 1 capsule Orally Once a day Active fluconazole 150 mg oral tablet (2 sources) Azole Antifungal Start: 11-26-2023 Fluticasone-Umecli din-Vilant (Trelegy Ellipta) 200-62.5-25 MCG/ACT aerosol powder (3 sources) Start: 11-16-2024 End: 11-17-2024 take 1 puff(s) by inhalation once daily Fluticasone-Umecli din-Vilant (Trelegy Ellipta) 200-62.5-25 MCG/ACT aerosol powder Indications: Severe persistent asthma with acute exacerbation (HCC) Inhale 1 puff Daily 1 each 11/16/2024 11/17/2024 Discontinued Start: 11-16-2024 take 1 puff(s) by inhalation once daily Skgmgenwaty-Cklszoouk-Poeedq (Trelegy Ellipta) 200-62.5-25 MCG/ACT aerosol powder Indications: Severe persistent asthma with acute exacerbation (HCC) Inhale 1 puff Daily 1 each 11 11/16/2024 Active hydrOXYzine pamoate 25 mg oral capsule (20 sources) Antihistamine Start: 01-21-2024 take 1 capsule by mouth four times daily as needed for anxiety hydrOXYzine pamoate 25 mg Cap 25 mg = 1 cap(s), Oral, QID, PRN as needed for anxiety, Refills(s) 0 Start Date: 01/21/24 Status: Ordered Start: 11-26-2023 Hydroxyzine Pa moate Active MG PO November 26, 2023 12:00am Start: 09-28-2023 End: 11-02-2024 take 1 capsule by mouth every eight hours as needed hydrOXYzine pamoate (Vistaril) 25 MG capsule Indications: Anxiety and depression TAKE 1 CAPSULE BY MOUTH EVERY 8 HOURS NEEDED for itching 90 capsule 1 11/02/2024 Active Start: 04-13-2023 End: 05-13-2023 take 1 capsule by mouth every eight hours hydrOXYzine pamoate (Vistaril) 25 MG capsule Indications: Anxiety and depression (CMS/HCC) Take 1 capsule (25 mg) by mouth every 8 (eight) hours Anxiety 90 capsule 0 04/13/2023 05/13/2023 Active ibuprofen 800 mg oral tablet (6 sources) Nonsteroidal Anti-inflammatory Drug Start: 11-26-2023 Start: 11-26-2023 Ibuprofen Acti ve MG PO November 26, 2023 12:00am Start: 08-05-2023 End: 11-09-2023 take 1 tablet by mouth twice daily as needed ibuprofen 800 MG tablet Take 800 mg by mouth 2 (two) times a day as needed 08/05/2023 11/09/2023 Discontinued (Therapy completed) ipratropium bromide 0.042 mg/actuat metered dose nasal spray (19 sources) Anticholinergic Start: 09-07-2024 End: 12-06-2024 take 2 spray(s) nasal route in the morning, then take 2 spray(s) nasal route in the evening, then take 2 spray(s) nasal route at bedtime ipratropium (Atrovent) 0.06 % nasal spray Indications: Environmental and seasonal allergies Administer 2 sprays into each nostril in the morning and 2 sprays in the evening and 2 sprays before bedtime. 45 mL 11 09/07/2024 12/06/2024 Active levothyroxine sodium 0.112 mg oral tablet (20 sources) l-Thyroxine Start: 09-26-2024 End: 12-25-2024 take 1 tablet by mouth once daily levothyroxine (Synthroid, Levoxyl) 112 MCG tablet Indications: Hypothyroidism, unspecified type Take 1 tablet (112 mcg) by mouth Daily 90 tablet 09/26/2024 12/25/2024 Active Start: 07-12-2024 End: 10-10-2024 take 1 tablet by mouth before mealtime levothyroxine (Synthroid, Levoxyl) 100 MCG tablet Indications: Hypothyroidism, unspecified type Take 1 tablet (100 mcg) by mouth in the morning. Take before meals. 90 tablet 07/12/2024 09/26/2024 Discontinued (Ineffective) Start: 05-10-2024 End: 08-08-2024 take 1 tablet [...] 26, 2023 12:00am Start: 11-09-2023 End: 07-04-2024 Start: 09-30-2023 End: 11-09-2023 take 1 tablet by mouth every hour before mealtime levothyroxine (Synthroid) 50 MCG tablet Indications: Aura's thyroiditis (CMS/HCC) Take 1 tablet (50 mcg) by mouth in the morning. Take before meals. Take 1 hour prior to any other food or drink or meds. 30 tablet 2 09/30/2023 11/09/2023 Discontinued (Ineffective) magnesium oxide 400 mg oral tablet (20 sources) Start: 10-03-2024 End: 01-08-2025 take 1 tablet by mouth once daily magnesium oxide (Mag-Ox) 400 (240 Mg) MG tablet Indications: Hypomagnesemia Take 1 tablet (400 mg) by mouth Daily 90 tablet 1 10/10/2024 01/08/2025 Active Start: 05-10-2024 End: 08-08-2024 take 1 [...] 1 tablet Orally Once a day Active 24 hr metoprolol succinate 50 mg extended release oral tablet (11 sources) beta-Adrenergic Eduarda Start: End: take 1 tablet by mouth once daily metoprolol succinate XL (Toprol-XL) 50 MG 24 hr tablet Take 50 mg by mouth Daily 09/15/2024 09/15/2025 Active Misc Natural Products (Osteo Bi-Flex Adv Triple St) tablet (3 sources) Misc Natural Products (Osteo Bi-Flex Adv Triple St) tablet Take by mouth 0 Active montelukast 10 mg oral tablet (20 sources) Leukotriene Receptor Antagonist Start: Montelukast Active MG PO November 26, 2023 12:00am Start: 09-28-2023 End: 01-08-2025 take 1 tablet by mouth at bedtime montelukast (Singulair) 10 MG tablet Indications: Moderate persistent asthma without complication (HCC) Take 1 tablet (10 mg) by mouth at bedtime 90 tablet 1 10/10/2024 01/08/2025 Active Start: 04-13-2023 End: 07-12-2023 take 1 tablet by mouth at bedtime montelukast (Singulair) 10 MG tablet Indications: Moderate persistent asthma without complication (CMS/HCC) Take 1 tablet (10 mg) by mouth at bedtime 90 tablet 1 04/13/2023 07/12/2023 Active mupirocin 0.02 mg/mg topical ointment (2 sources) RNA Synthetase Inhibitor Antibacterial Start: 11-26-2023 Nasacort Allergy 24HR (2 sources) Start: 01-25-2024 Nasacort Allergy 24HR 1 spray(s), Nasal, Daily, Refill(s) 0, Allergy symptoms Start Date: 01/25/24 Status: Ordered [place]-3 Fatty Acids (Fish Oil) 1000 MG capsule delayed-release (3 sources) [place]-3 Fatty Ac ids (Fish Oil) 1000 MG [...] November 26, 2023 12:00am Start: 09-30-2023 End: 01-08-2025 take 1 tablet by mouth before mealtime pantoprazole (ProtoNix) 40 MG EC tablet Indications: Gastroesophageal reflux disease, unspecified whether esophagitis present Take 1 tablet (40 mg) by mouth in the morning. Take before meals. Do not crush, chew, or split. 90 tablet 1 10/10/2024 01/08/2025 Active polyethylene glycol 3350 37068 mg powder for oral solution (9 sources) [...] Status: Ordered progesterone 100 mg oral capsule (20 sources) Progesterone Start: 08-07-2024 End: 11-05-2024 take [...] 15 tablet 0 04/13/2023 04/14/2023 Discontinued (Reorder) Trelegy Ellipta 200-62.5-25 MCG/ACT aerosol powder (1 source) Start: 11-17-2024 take 1 puff(s) by mouth once daily Trelegy Ellipta 200-62.5-25 MCG/ACT aerosol powder Indications: Severe persistent asthma with acute exacerbation (HCC) INHALE 1 PUFF BY MOUTH DAILY 60 each 11 11/17/2024 Active triamcinolone acetonide 0.055 mg/actuat metered dose nasal spray (20 sources) Corticosteroid Start: 10-05-2024 take 2 spray(s) nasal route once daily triamcinolone (Nasacort) 55 MCG/ACT nasal inhaler Administer 2 sprays into each nostril Daily 10/05/2024 Active Start: 04-05-2024 End: 08-08-2024 take 2 spray(s) [...] face 80 g 02/08/2024 03/07/2024 Active Start: 11-26-2023 Start: 09-28-2023 End: 12-27-2023 Triamcinolone Acetonide Acti [...] 04-01-2023 Resolved: 02-08-2024 04-01-2023 Chronic Cardiac dysrhythmias (20 sources) Ventricular arrhythmia; Translations: [Cardiac arrhythmia, unspecified] Onset: 08-03-2024 08-03-2024 Chronic Diabetes mellitus without complication (1 source) Type 2 diabetes mellitus without complication; Translations: [Diabetes mellitus without mention of complication, type II or unspecified, not stated as uncontrolled] Chronic Esophageal disorders (20 sources) Gastro-esophageal reflux disease without esophagitis; Translations: [Gastroesophageal reflux disease] Onset: 02-25-2022 04-01-2023 Chronic Essential hypertension (13 sources) Essential hypertension; Translations: [Essential (primary) hypertension] Onset: 09-17-2024 10-10-2024 Chronic Heart valve disorders (11 sources) Aortic valve disorder; Translations: [Nonrheumatic aortic valve disorder, unspecified] Onset: 09-17-2024 10-10-2024 Chronic Immunizations and screening for infectious disease [...] SPASM] Onset: 05-31-2022 Episodic Other endocrine disorders (4 sources) Disorder of endocrine system; Translations: [Endocrine disorder, unspecified] 08-03-2024 Episodic Other inflammatory condition of skin (20 sources) Psoriasis; Translations: [Psoriasis, unspecified] Onset: 04-01-2023 04-01-2023 Chronic Other nervous system disorders (20 sources) Difficulty walking; Translations: [Difficulty in walking, not elsewhere classified] Onset: 02-22-2024 02-22-2024 Chronic Other nutritional; endocrine; and metabolic disorders [...] 02-08-2024 05-09-2024 Chronic Other upper respiratory disease (20 sources) Allergic disposition; Translations: [Other allergic rhinitis] Onset: 08-08-2024 08-08-2024 Chronic Other upper respiratory disease (2 sources) Chronic rhinitis; Translations: [Chronic rhinitis] 11-16-2024 Chronic Syncope (2 sources) Syncope 01-21-2024 Episodic [...] pain; Translations: [EPIGASTRIC PAIN] Onset: 02-23-2022 Episodic Cardiac dysrhythmias (20 sources) Palpitations; Translations: [Palpitations] Onset: 06-20-2024 06-20-2024 Episodic Chronic obstructive pulmonary disease and bronchiectasis [...] 04-01-2023 Episodic Other aftercare (1 source) Other nursing home (current) drug therapy; Translations: [OTH TALENT ACQUISITION MANAGER CURRENT DRUG THERAPY] Onset: 02-25-2022 Episodic Other [...] in joint, lower leg] Onset: 04-01-2023 Resolved: 10-10-2024 02-22-2024 Episodic Other non-traumatic joint disorders (20 sources) Pain in right knee; Translations: [Pain in joint, lower leg] Onset: 04-01-2023 Resolved: 09-30-2023 04-14-2023 Episodic Other non-traumatic joint disorders (1 source) Pain in unspecified joint; Translations: [Pain in unspecified joint] Onset: 12-09-2023 Episodic Other screening for suspected conditions (not [...] Test Name Value Interpretation Reference Range Facility CT abdomen pelvis wo conon 0 10-19-2024 CT abdomen pelvis wo con [facility] [place] [address] [place] [address] CT Scan Report Signed Patient: Wilmer Navarro MR#: [id number] : 1985 Acct:[id number] Age/Sex: 38 / F ADM Date: 10/19/24 Loc: CT [facility]: [facility] Att[facility] Dr: Bernardo Silverio DO Copies to: [...] urinary bladder appear unremarkable. No adnexal mass.] Peritoneum/Retroperi toneum:No free air, free fluid or lymphadenopathy.[ Abd wall/Bones:Midline fat-containing ventral hernia with a neck measuring 14 mm. Osseous structures demonstrate mild degenerative change.[ CT/CT abdomen pelvis wo con IMPRESSION: Fat-containing midline ventral hernia with a neck measuring 14 mm. Impression dictated by: Mau Chou Jr., D.Jovany 10/19/2024 1:11 PM Dictation Location: RADIO-PC-23 Transcribed By: [facility] 10/19/24 1311 Dictated By: Mau Chou Jr, DO 10/19/24 1309 Signed By: 10/19/24 1311 Normal [facility] ALL THYROID STIM HORMONEon 0 09-21-2024 Interpretation and review of laboratory results Abnormal [facility] TSH Qn 4.948 m[IU]/L High [facility] ALL THYROXINE (T4) FREEon Free T4 [Mass/Vol] 0.93 ng/dL 0.76 - 1. 46 ng/dL [facility] No Panel Informationon 09-21 [facility] Healthcare Office Visiton 09-15-2024 Follow-up visit [id number] Wilmer Navarro 1985 F Date Provider Department Center 09/15/2024 TIMMY PLATT [facility] Family History Problem Relation Age of Onset Hypertension Sister Heart failure Maternal Grandmother Cardiomyopathy Paternal Grandfather Family Status - Relation Status Age at Sister Maternal Grandmother Paternal Grandfather Level of Service:44713 AL OFFICE/OUTPATIENT NEW MODERATE MDM 45 MINUTES Reason for Visit and Comments: Palpitations [346606] - Has palpitations and SOB with rest. Has Aura's thyroid disease. Recent Holter monitor showed runs of VT, so PCP ordered stress test. Shortness of Breath [865430] - Says her BP usually runs around 140/90. Dizziness [424498] Normal [facility] CA ECHO DOPPLER COMPLETEon 0 09-05-[address] [address] Cardiology Report Signed Patient: WILMER NAVARRO MR#: [id number] : 1985 Acct:[id number] Age/Sex: 38 / F ADM Date: 09/05/24 Loc: CARD Attending Dr: Elvie Greer NP Ordering Physician: Elvie Greer NP Date of Service: 09/05/24 Procedure(s): CA echo doppler complete Accession Number(s): [id number] cc: Elvie Greer NP Patient Name: WILMER NAVARRO MR#: [id number] : 1985 Exam Date: 09/05/2024 Ordering Doctor: [...] cm2, 2.52 cm2 AoV Area (VTI): Deceleration [place]: Pressure Half-Time: Peak Velocity(Antegrade Flow): 1.31 m/s Peak Gradient(Antegrade Flow): 6.87 mm[Hg] Mean Velocity(Antegrade Flow): Mean Gradient(Antegrade Flow): Velocity Time Integral: Tricuspid Valve Peak Velocity (Regurgitant Flow): 2.36 m/s Peak Velocity: Pulmonic Valve Mean Gradient: Mean Velocity: Peak Velocity: Peak Gradient: 4.08 mm[Hg], 4.44 mm[Hg] Right Atrium Right Atrium Systolic Pressure: 54.89 ml, 54.89 ml Dictated (more content not included)... [facility] Radiology, Radiologist, MD - 09/05/2024 [place] [address] Cardiology Report Signed Patient: WILMER NAVARRO MR#: [id number] : 1985 Acct:[id number] Age/Sex: 38 / F ADM Date: 09/05/24 Loc: CARD Attending Dr: Elvie Greer NP Ordering Physician: Elvie Greer NP Date of Service: 09/05/24 Procedure(s): CA echo doppler complete Accession Number(s): [id number] cc: Elvie Greer NP Patient Name: WILMER NAVARRO MR#: [id number] : 1985 Exam Date: 09/05/2024 Ordering Doctor: [...] cm2, 2.52 cm2 AoV Area (VTI): Deceleration [place]: Pressure Half-Time: Peak Velocity(Antegrade Flow): 1.31 m/s Peak Gradient(Antegrade Flow): 6.87 mm[Hg] Mean Velocity(Antegrade Flow): Mean Gradient(Antegrade Flow): Velocity Time Integral: Tricuspid Valve Peak Velocity (Regurgitant Flow): 2.36 m/s Peak Velocity: Pulmonic Valve Mean Gradient: Mean Velocity: Peak Velocity: Peak Gradient: 4.08 mm[Hg], 4.44 mm[Hg] Right Atrium Right Atrium Systolic Pressure: 54.89 ml, 54.89 ml Dictated by: Timmy Jung MD on 09/05/2024 at 14:12 Approved by: Timmy Jung MD on 09/05/2024 at 14:17 Dictated By: Timmy Jung M.D. Signed By: 09/05/24 1418 DD/ 16 TD/TT: Manual Winder: [facility] Radiology Study observation (narrative) [facility] CA ECHO DOPPLER COMPLETEOrde red By: Radiologist Radiology on 09-05-2024 [facility] Work Phone: NM MINOO PERF SPECT REST STRon 09-05-2024 [place] [address] Nuclear Medicine Report Signed Patient: WILMER NAVARRO MR#: [id number] : 1985 Acct:[id number] Age/Sex: 38 / F ADM Date: 08/29/24 Loc: CARD Attending Dr: Elvie Greer NP Ordering Physician: Elvie Greer NP Date of Service: 08/29/24 Procedure(s): NM minoo perf SPECT rest str Accession Number(s): [id number] cc: Elvie Greer NP Patient Name: WILMER NAVARRO MR#: [id number] : 1985 Exam Date: 08/29/2024 Ordering Doctor: KEYA GREER CNP RADIOLOGY REPORT PROCEDURE: NM MINOO PERF SPECT REST STR COMPARISON: None. INDICATIONS: [...] the study was pending per attending physician [facility] . For more details please see [...] stress test is reported separately Dictated by: Timmy Jung MD on 09/05/2024 at 13:36 Approved by: Timmy Jung MD on 09/05/2024 at 13:42 Dictated By: Timmy Jung M.D. Signed By: 09/05/24 1343 DD/ 1342 TD/TT: Manual Winder: [facility] Radiology, Radiologist, - 09/05/2024 [place] [address] Nuclear Medicine Report Signed Patient: WILMER NAVARRO MR#: [id number] : 1985 Acct:[id number] Age/Sex: 38 / F ADM Date: 08/29/24 Loc: CARD Attending Dr: Elvie Greer NP Ordering Physician: Elvie Greer NP Date of Service: 08/29/24 Procedure(s): NM minoo perf SPECT rest str Accession Number(s): [id number] cc: Elvie Greer NP Patient Name: WILMER NAVARRO MR#: [id number] : 1985 Exam Date: 08/29/2024 Ordering Doctor: KEYA GREER CNP RADIOLOGY REPORT PROCEDURE: NM MINOO PERF SPECT REST STR COMPARISON: None. INDICATIONS: [...] the study was pending per attending physician [facility] . For more details please see [...] stress test is reported separately Dictated by: Timmy Jung MD on 09/05/2024 at 13:36 Approved by: Timmy Jung MD on 09/05/2024 at 13:42 Dictated By: Timmy Jung M.D. Signed By: 09/05/24 1343 DD/ 1342 TD/TT: Manual Winder: [facility] Radiology Study observation (narrative) [facility] NM MINOO PERF SPECT REST STROr dered By: Radiologist Radiology on 09-05-2024 [facility] Work Phone: ALL MAGNESIUMon 07-11-2024 Magnesium [Mass/Vol] 1.8 mg/dL 1.8 - 2 .4 mg/dL [facility] ALL THYROID STIM HORMONEon 0 07-11-2024 Interpretation and review of laboratory results Abnormal [facility] TSH Qn 3.998 m[IU]/L High [facility] No Panel Informationon 07-11 [facility] ALL BASIC METABOLIC PANELon 06-27-2024 Anion gap [Moles/Vol] 12.3 mmol/L [facility] Calcium [Mass/Vol] 8.9 mg/dL 8.5 - 10. 1 mg/dL [facility] Chloride [Moles/Vol] 104 mmol/L 98 - 10 7 mmol/L [facility] CO2 [Moles/Vol] 29.5 mmol/L 21.0 - 32.0 mmol/L [facility] Creatinine [Mass/Vol] 0.67 mg/dL 0.55 - 1.02 mg/dL [facility] GFR/1.73 sq M.predicted CKD-EPI (S/P/Bld) [Vol rate/Area] >60 >=60 mL/min/1.73 m 2 [facility] Glucose [Mass/Vol] 89 mg/dL 74 - 106 mg/dL [facility] Potassium [Moles/Vol] 3.8 mmol/L 3.5 - 5.1 mmol/L [facility] Sodium [Moles/Vol] 142 mmol/L 136 - 145 mmol/L [facility] TBH EGFR-NON AF BULGARIAN >60 >=60 mL/min/1.73 m 2 [facility] Urea nitrogen [Mass/Vol] 8 mg/dL 7.0 - 18.0 mg/dL [facility] Urea nitrogen/Creatinine [Mass ratio] 11.9 mg/mg [facility] ALL MAGNESIUMon 06-27-2024 Interpretation and review of laboratory results Abnormal [facility] Magnesium [Mass/Vol] 1.7 mg/dL Low 1.8 - 2 .4 mg/dL [facility] No Panel Informationon 06-27 [facility] XR Knee - right 3 View[facility] Imaging Result: Xrays taken in the office today saved to the permanent record, AP, sunrise and lateral weightbearing films, show stable position and alignment of the right TKA prosthesis. No sign of loosening, fracture or infection. [facility] Radiology Study observation (narrative) [facility] ALL CBC WITH AUTO DIFFon BASOPHILS ABSOLUTE AUTO 0 N [facility] Basophils/100 WBC (Bld) 0.4 % 0.2 - 2.0 % [facility] Eosinophils/100 WBC (Bld) 2.8 % 0.9 - 7.0 % [facility] Erythrocyte distribution width (RBC) [Ratio] 12.8 % 11.0 - 15.0 % [facility] Hematocrit (Bld) [Volume fraction] 37.5 % 36.0 - 48.0 % [facility] Hemoglobin (Bld) [Mass/Vol] 12.6 g/dL 12.0 - 16.0 g/dL [facility] IMMATURE GRANULOCYTES ABS AUTO 0.02 [facility] Immature granulocytes/100 WBC (Bld) 0.2 % 0.0 - 0.5 % [facility] LYMPHOCYTES ABSOLUTE AUTO 1.9 [facility] Lymphocytes/100 WBC (Bld) 22.7 % 20.5 - 60.0 % [facility] MCH (RBC) [Entitic mass] 29.9 pg 26.7 - 34.0 pg [facility] MCHC (RBC) [Mass/Vol] 33.6 g/dL 29.9 - 35.2 g/dL [facility] MCV (RBC) [Entitic vol] 88.9 fL 81.0 - 99.0 fL [facility] MONOCYTES ABSOLUTE AUTO 0.6 N [facility] Monocytes/100 WBC (Bld) 6.9 % 1.7 - 12.0 % [facility] NEUTROPHILS ABSOLUTE AUTO 5.7 [facility] Neutrophils/100 WBC (Bld) 67 % 43.0 - 75.0 % [facility] Platelet mean volume (Bld) [Entitic vol] 9.5 fL 9.5 - 13.5 fL [facility] TBH EO # 0.2 [facility] TB PLT [address] [facility] RBC 4.22 [facility] TB WBC 8.5 [facility] MM TOMOSYNTHESIS SCREENING B Ion 04-18-[address] [address] Mammography Report Signed Patient: DEARTH,WILMER K MR#: [id number] : 1985 Acct:[id number] Age/Sex: 38 / F ADM Date: 04/18/24 Loc: MAMMO Attending Dr: Javier Morales D.O. Ordering Physician: Javier Morales D.O. Results: Date of Service: 04/18/24 Follow Up: Procedure(s): MM tomosynthesis screening BI Accession Number(s): [id number] cc: Elvie Greer ENVIRONMENTAL SYSTEMS COORDINATOR; Javier Morales D.O. Patient Name: WILMER NAVARRO MR#: [id number] : 1985 Exam Date: 04/18/2024 Ordering Doctor: [...] Treatments None Family Cancers None LOCATION: The [facility] BREAST COMPOSITION: The breasts are [...] Signed By: 04/18/24 1135 DD/ 1134 TD/TT: Manual Winder: [facility] Radiology, Radiologist, - 04/18/2024 The [place] [id number] Mammography Report Signed Patient: WILMER NAVARRO MR#: [id number] : 1985 Acct:[id number] Age/Sex: 38 / F ADM Date: 04/18/24 Loc: MAMMO Attending Dr: Javier Morales D.O. Ordering Physician: Javier Morales D.O. Results: Date of Service: 04/18/24 Follow Up: Procedure(s): MM tomosynthesis screening BI Accession Number(s): [id number] cc: Elvie Greer ENVIRONMENTAL SYSTEMS COORDINATOR; Javier Morales D.O. Patient Name: WILMER NAVARRO MR#: [id number] : 1985 Exam Date: 04/18/2024 Ordering Doctor: [...] Treatments None Family Cancers None LOCATION: The [facility] BREAST COMPOSITION: The breasts are [...] Signed By: 04/18/24 1135 DD/ 1134 TD/TT: Manual Winder: [facility] Radiology Study observation (narrative) [facility] MM TOMOSYNTHESIS SCREENING B IOrdered By: Radiologist Radiology on 04-18-2024 [facility] Work Phone: XR Knee - right 3 [facility] Imaging Result: Xrays taken in the office today saved to the permanent record, Ap, lateral and sunrise weight bearing films, show stable position and alignment of the right knee prosthesis. No sign of loosening or infection. [facility] Radiology Study observation (narrative) [facility] Surgical Pathology Reporton 02-25-2024 Surgical Pathology Report [facility] [address] [facility] [place] [place] [address]- Surgical Pathology Report Collected Date/Time: 02/21/2024 11:30 EST Pathologist: Darius SAGASTUME PhD, Tracey Sandoval Received Date/Time: 02/21/2024 14:10 EST Khan DO, Chan Khan DO, Chan Breaux Surgical Pathology [...] examination performed unless gross only specified. Normal [facility] Comment on above: Performed By: #### 4 [id number] #### [facility] Laboratory [address] [place] [address] Main OR Intraoperative Recor don 02-22-2024 Main OR Intraoperative Record Main OR Intraoperative Record IntraOp Document Type FT Summary Primary Physician: Chan Khan DO Finalized Date/Time: 02/22/24 12:52:18 Pt. Name: WILMER NAVARRO Tashi/Sex: 1985 Female Med Rec #: [id number] Physician: Chan Khan DO Financial #: [id number] Pt. Type: A Room/Bed: [place] [address] Admit/Disch: 02/21/24 08:02:21 - 02/21/24 17:00:00 Institution: Case Times FT Entry 1 Patient Times In Room 02/21/24 10:53:00 Out Room 02/21/24 12:25:00 Procedure Times Start 02/21/24 11:20:00 Stop 02/21/24 12:16:00 Anesthesia Times Start 02/21/24 10:53:00 Stop 02/21/24 12:25:00 Block Timeout w/ 02/21/24 10:05:00 Anesthesia Last Modified By: Suki RN, NUNOOR, Brynn Akhtar 02/21/24 12:25:34 General Comments: [id number] taylor and hermelinda for block. HR 101, SPO2 100%, Nervous. Tolerated procedure well./ T koki RN/ L Suki Spring 02/22/24 Chart opened to review and send charges [facility] CSFA Case Attendance FT Entry 1 Entry 2 Entry 3 Case Attendee Taylor LARSON, SIEVE GRADER TENDER, [place] Chan Khan DO RN, CNOR, Brynn NGabriel Akhtar Role Performed SIEVE GRADER TENDER Surgeon - Primary Top Frame Fitter - Primary Time In 02/21/24 10:53:00 02/21/24 10:47:00 02/21/24 10:53:00 Time Out 02/21/24 12:25:00 02/21/24 12:05:00 02/21/24 12:25:00 Procedure KNEE TOTAL KNEE TOTAL KNEE TOTAL ARTHROPLASTY(Right) ARTHROPLASTY(Right) ARTHROPLASTY(Right) Comments R Myriam Resident, Lucille dorsey in to hold Wangcran in room leg for prep [id number] Last Modified By: Antoinette Cheung CST RN, CNOR, Brynn Suki RN, CNOR, Brynn 02/22/24 12:49:03 Giovana 02/21/24 12:25:07 Giovana 02/21/24 12:25:55 Entry 4 Entry 5 Entry 6 Case Attendee Presley GALLAGHER, Shayna Dorsey CST, Tesha Loaiza Role Performed Scrub - Primary PILOT CAPTAIN/SA Staff - Other Time In 02/21/24 10:53:00 02/21/24 10:53:00 02/21/24 10:53:00 Time Out 02/21/24 12:09:00 02/21/24 12:25:00 02/21/24 12:20:00 Procedure KNEE TOTAL KNEE TOTAL KNEE TOTAL ARTHROPLASTY(Right) ARTHROPLASTY(Right) ARTHROPLASTY(Right) Comments 2nd scrub Last Modified By: Suki RN, NUNOOR, Brynn Cohn RN, Brynn MILIAN RN, Brynn MILIAN 02/21/24 12:25:07 Giovana 02/21/24 12:25:55 Giovana 02/21/24 [...] PreOp Antibiotic Yes Time Out Taylor LARSON, SIEVE GRADER TENDER, Miller Annette Participants N., Loren ARELLANO, Suki Bone RN, NUNOOR, Brynn Akhtar, Presley GALLAGHER, Alvaro Yousif [...] 1 - Clean Last Modified By: Suki SPRING, MAICOL, Brynn Akhtar 02/21/24 12:25:09 General Case Data [...] Yes Last Modified By: MAICOL Cohn RN, Brynn Akhtar 02/21/24 12:25:21 Post-Care Text: The [...] Last Modified (more content not included)... Normal [facility] Main OR Preoperative Recordo n 02-22-2024 Main OR Preoperative Record Main OR Preoperative Record PreOp Document Type FT Summary Primary Physician: Chan Khan DO Finalized Date/Time: 02/22/24 08:37:35 Pt. Name: WILMER NAVARRO/Sex: 1985 Female Med Rec #: [id number] Physician: Chan Khan DO Financial #: [id number] Pt. Type: A Room/Bed: [facility]/ Admit/Disch: 02/21/24 08:02:21 - 02/21/24 17:00:00 [...] Cohn RN, Lou Ann 02/22/24 08:37 Normal [facility] Operative Reporton Operative Report Operative Report [...] Zero SPECIMEN: Bone IMPLANTS UTILIZED: The [employer] knee system with a PS cemented right size 6 narrow femur, a size 5 cemented fixed tibial tray, 8 mm polyethylene, 32 mm patellar button TOURNIQUET TIME: See nurse's record. HISTORY AND INDICATIONS: Wilmer is a 38-year-old female with progressive right knee pain with ggfo-mc-nrid disease. She has a strong family history as well as treatment for several decades. She has tried ice, Tylenol, analgesics, corticosteroid injections. She has whnu-nw-lflu. She initially presented with an elevated body [...] PATIENT CONDITION: Satisfactory Aquiles Villarreal Dictated: 02/21/2024 [id number] Transcribed: 02/21/2024 cc:Elvie Greer CNP [facility] Comment on above: Result Comment: Elec tronically Signed By: Chan Khan DO T\.br\Date and Time Signed: 02/22/24 17:18 EST ABO/Rhon 02-21-2024 ABO/Rh Positive Invalid Interpretation Code [facility] Comment on above: Performed By: #### 2 [id number] #### [facility] [address] [place] [address] ABO/Rh History Checkon 02-20 ABO/Rh History Check Verified Hx Blood Type Normal [facility] Comment on above: Performed By: #### 1 [id number] #### [facility] [address] [place] [address] ABSCon 02-21-2024 ABSC Gel Interp Negative Normal [facility] Comment on above: Performed By: #### 1 [id number] #### [facility] [address] [place] [address] BLOOD BANKOrdered By: Donnie French on 02-21-2024 ABO/Rh Interp Positive Invalid Interpretation Code [facility] BB Subsection ABSC Gel Interp Negative (02/21/24 8:56 AM) Normal [facility] BB Subsection Blood Bank ID#on 02-21-2024 BBID# [id number] Invalid Interpretation Code [facility] Comment on above: Performed By: #### 1 [id number] #### [facility] [address] [place] [address] Discharge Instructionson Discharge Instructions Discharge Instructions WILMER [...] PM EST Comments: Keep scheduled appointment Where: [address] [place], [place] [phone] [facility] (1) Medications What How Much When Why [...] Incentive S (more content not included)... Normal [facility] Comment on above: Result Comment: Elec tronically Signed By: Ricki SPRING, Marium Mathis\.br\Date and Time Signed: 02/21/24 12:54 EST Interdisciplinary Note - Mary cardenas 02-21-2024 Interdisciplinary Note - Nursing Interdisciplinary Note - Nursing at 1245, pt heart rate down to 30's, sinus pt feeling lightheaded and dizzy. pt placed in Trendelenberg- called and atropine 0.4mg given. heart rate increased to 50's. fluids wide open. Normal [facility] Main OR PACU I Recordon 02-05 Main OR PACU I Record Main OR PACU I Record PACU Phase I Document Type FT Summary Primary Physician: Chan Khan DO Finalized Date/Time: 02/21/24 14:56:12 Pt. Name: WILMER NAVARRO /Sex: 1985 Female Med Rec #: [id number] Physician: Chan Khan DO Financial #: [id number] Pt. Type: A Room/Bed: [facility] Admit/Disch: 02/21/24 08:02:21 - Institution: Case [...] By: Shanti Bender RN 02/21/24 14:56 Normal [facility] Main OR PACU II Recordon Main OR PACU II Record Main OR PACU II Record PACU Phase II Document Type FT Summary Primary Physician: Chan Khan DO Finalized Date/Time: 02/21/24 18:04:41 Pt. Name: WILMER NAVARRO/Sex: 1985 Female Med Rec #: [id number] Physician: Chan Khan DO Financial #: [id number] Pt. Type: A Room/Bed: [place] [address] Admit/Disch: 02/21/24 08:02:21 - Institution: Case Times [...] Naila Landaverde Document Signatures Signed By: Naila Landaevrde 02/21/24 18:04 Naila Landaverde 02/21/24 18:04 [facility] Proceduralon 02-21-2024 Procedural Procedural Patient: [...] Using maximal sterile barrier technique per current [facility] guidelines including hand hygeine, Guidance (Ultrasound used [...] Taylor CRNA under Dr Gupta's supervision. Normal [facility] SEROLOGYOrdered By: Brook French on 02-21-2024 HCG.beta subunit (U) [Moles/Vol] Negative Normal [facility] Man Sero U BetaHcg Qualon 02-21-2024 HCG.beta subunit (U) [Moles/Vol] Negative Normal [facility] Comment on above: Performed By: #### 2 [id number] #### [facility] [address] [place] [address] XR Knee 1 or 2 Views Righton [...] mGy = na DAP = na Normal [facility] Inpatient Patient Summaryon 02-16-2024 Inpatient Patient Summary Inpatient Patient Summary [facility] [address] [place], [place] [address] [facility] Clinical Discharge Instructions PERSON INFORMATION Name: WILMER NAVARRO [facility]#:[id number] PHYSICIANS Admitting Physician: Chan Khan DO Attending Physician: Chan Khan DO PCP: ELVIE GREER CNP Discharge Diagnosis: Localized osteoarthritis of right knee Comment: PATIENT EDUCATION INFORMATION Instructions: Loren - Total Knee Arthroplasty (CUSTOM) Medication Leaflets: Follow up: With: Address: When: Chan Khan [address] [place] [address] [employer] (7) Comments: Keep scheduled appointment Type Location [facility] Surgery [facility] Surgical Services 02/21/2024 11:15 AM 02/21/2024 [...] Sprays Nasal Inhalation every day. Comment: Normal [facility] Outpatient Surgery Discharge Instructionon 02-16-2024 Outpatient Surgery Discharge Instruction Outpatient Surgery Discharge Instruction [place] [id number] Patient Discharge Instructions PERSON INFORMATION Name: WILMER [...] NEAREST EMERGENCY ROOM OR CALL 911 I, MANDIEMICHELLE HernandezWILMER, have received the attached patient education materials/instructio ns and have verbalized understanding: May we do a follow up call? Yes No I was present when discharge instructions were given Patient Signature Date Clinican/Nurse Signature Date Follow up: With: Address: When: Chan Khan [address] [place] [phone] Business (1) Comments: Keep scheduled appointment Type Location [facility] Surgery [facility] Surgical Services 02/21/2024 11:15 AM 02/21/2024 [...] to serve you. Thank you for choosing [facility] HERE ARE THE MEDICATION CHANGES THAT [...] Inhalation every day. PATIENT EDUCATION INFORMATION Instructions: [place], [place] [facility] DISCHARGE INSTRUCTIONS TOTAL KNEE [...] or light-headedness. (more content not included)... Normal [facility] ABO/Rh Retypeon 01-25-2024 ABO/Rh Retype Interp Positive Invalid Interpretation Code [facility] Comment on above: Performed By: #### 1 [id number] #### [facility] [address] [place] [address] BLOOD BANKOrdered By: Donnie French on 01-25-2024 ABO/Rh Retype Interp Positive Invalid Interpretation Code [facility] BB Subsection BMPon 01-25-2024 Anion gap [Moles/Vol] 13 mmol/L Normal 6-16 [facility] Comment on above: Performed By: #### 2 [id number] #### [facility] [address] [place] [address] Calcium [Mass/Vol] 9.5 mg/dL Normal 8.9-11.1 [facility] Comment on above: Performed By: #### 2 [id number] #### [facility] [address] [place] [address] Chloride [Moles/Vol] 103 mmol/L Normal 101-111 [facility] Comment on above: Performed By: #### 2 [id number] #### [facility] [address] [place] [address] CO2 [Moles/Vol] 27 mmol/L Normal 21-31 [facility] Comment on above: Performed By: #### 2 [id number] #### [facility] [address] [place] [address] Creatinine [Mass/Vol] 0.6 mg/dL Normal 0.5-1.3 [facility] Comment on above: Performed By: #### 2 [id number] #### [facility] [address] [place] [address] Glucose [Mass/Vol] 84 mg/dL Normal 55-199 [facility] Comment on above: Performed By: #### 2 [id number] #### [facility] [address] [place] [address] Potassium [Moles/Vol] 4.0 mmol/L Normal 3.5-5.3 [facility] Comment on above: Performed By: #### 2 [id number] #### [facility] [address] [place] [address] Sodium [Moles/Vol] 139 mmol/L Normal 135-145 [facility] Comment on above: Performed By: #### 2 [id number] #### [facility] [address] [place] [address] Urea nitrogen [Mass/Vol] 12 mg/dL Normal 5-21 [facility] Comment on above: Performed By: #### 2 [id number] #### [facility] [address] [place] [address] Urea nitrogen/Creatinine [Mass ratio] 20 No Units Normal 10-20 [facility] Comment on above: Performed By: #### 2 [id number] #### [facility] [address] [place] [address] CBC w/ Auto Diffon 4 Basophils/100 WBC (Bld) 0.8 % Normal 0.0-2.0 [facility] Comment on above: Performed By: #### 2 [id number] #### [facility] [address] [place] [address] Basophils/Leukocytes Auto (Bld) [Pure # fraction] 0.1 E9/L Normal 0.0-0.2 [facility] Comment on above: Performed By: #### 2 [id number] #### [facility] [address] [place] [address] Eosinophils (Bld) [#/Vol] 0.3 E9/L Normal 0.0-0.5 [facility] Comment on above: Performed By: #### 2 [id number] #### [facility] [address] [place] [address] Eosinophils/100 WBC (Bld) 4.2 % Normal 0.0-8.0 [facility] Comment on above: Performed By: #### 2 377137 #### [facility] [address] [place] [address] Erythrocyte distribution width (RBC) [Ratio] 13.2 % Normal 10.9-14.2 [facility] Comment on above: Performed By: #### 2 061918 #### [facility] [address] [place] [address] Hematocrit (Bld) [Volume fraction] 39.2 % Normal 34.0-46.0 [facility] Comment on above: Performed By: #### 2 [id number] #### [facility] [address] [place] [address] Hemoglobin (Bld) [Mass/Vol] 13.6 g/dL Normal 12.0-16.0 [facility] Comment on above: Performed By: #### 2 [id number] #### [facility] [address] [place] [address] Lymphocytes (Bld) [#/Vol] 2.3 E9/L Normal 1.0-4.0 [facility] Comment on above: Performed By: #### 2 407919 #### [facility] [address] [place] [address] Lymphocytes/100 WBC (Bld) 29.5 % Normal 14.0-50.0 [facility] Comment on above: Performed By: #### 2 [id number] #### [facility] [address] [place] [address] MCH (RBC) [Entitic mass] 30.4 pg Normal 27.0-34.0 [facility] Comment on above: Performed By: #### 2 [id number] #### [facility] [address] [place] [address] MCHC (RBC) [Mass/Vol] 34.7 g/dL Normal 31.4-36.0 [facility] Comment on above: Performed By: #### 2 [id number] #### [facility] [address] [place] [address] MCV (RBC) [Entitic vol] 87.5 fL Normal 80.0-100.0 [facility] Comment on above: Performed By: #### 2 [id number] #### [facility] [address] [place] [address] Monocytes (Bld) [#/Vol] 0.7 E9/L Normal 0.2-1.0 [facility] Comment on above: Performed By: #### 2 [id number] #### [facility] [address] [place] [address] Neutrophils (Bld) [#/Vol] 4.3 E9/L Normal 2.0-7.5 [facility] Comment on above: Performed By: #### 2 794290 #### [facility] [address] [place] [address] Neutrophils/100 WBC (Bld) 56.6 % Normal 36.0-75.0 [facility] Comment on above: Performed By: #### 2 853550 #### [facility] [address] [place] [address] Platelet 377.0 E9/L Normal 150.0-500.0 [facility] Comment on above: Performed By: #### 2 057344 #### [facility] [address] [place] [address] Platelet mean volume (Bld) [Entitic vol] 7.9 fL Normal 6.4-10.8 [facility] Comment on above: Performed By: #### 2 015145 #### [facility] [address] [place] [address] RBC (Bld) [#/Vol] 4.5 E12/L Normal 4.3-5.9 [facility] Comment on above: Performed By: #### 2 [id number] #### [facility] [address] [place] [address] WBC corrected for nucl RBC Auto (Bld) [#/Vol] 7.7 E9/L Normal 4.0-11.0 [facility] Comment on above: Performed By: #### 2 [id number] #### [facility] [address] [place] [address] CHEMISTRYOrdered By: SYSTEM SYSTEM on 01-25-2024 Anion [...] 01-25-20 BILIRUBIN:PRTHR:PT:URIN E:ORD:TEST STRIP.AUTOMATED Negative Negative mg/dL [facility] CLARITY:TYPE:PT:URINE:N OM: Clear Clear [facility] CLASS:TYPE:PT:URINE COLLECTION METHOD:NOM:* Clean Catch [facility] COLOR:TYPE:PT:URINE:NOM :AUTO Light-Yellow Yellow [facility] Comment on above: Microscopic readings are only performed on those samples that meet specific criteria set forth by [facility]. [facility] PH:LSCNC:PT:URINE:QN:TE ST STRIP 5.5 5.0 - 9.0 [facility] SPECIFIC GRAVITY:RDEN:PT:URINE:Q N:TEST STRIP 1.013 1.005 - 1.030 [facility] GLUCOSE:PRTHR:PT:URINE: ORD:TEST STRIP Negative Negative mg/dL [facility] HEMOGLOBIN:MCNC:PT:URIN E:SEMIQN:TEST STRIP.AUTOMATED Negative Negative mg/dL [facility] KETONES:PRTHR:PT:URINE: ORD:TEST STRIP.AUTOMATED Negative Negative mg/dL [facility] LEUKOCYTE ESTERASE:PRTHR:PT:URINE :ORD:TEST STRIP.AUTOMATED Negative Negative CD:[id number] [facility] NITRITE:PRTHR:PT:URINE: ORD:TEST STRIP.AUTOMATED Negative Negative mg/dL [facility] PROTEIN:PRTHR:PT:URINE: ORD:TEST STRIP Negative Negative mg/dL [facility] UROBILINOGEN:MCNC:PT:UR INE:SEMIQN:TEST STRIP Negative Negative mg/dL [facility] Original Ordering Provider: DO Chan BECKER [facility] UA with Cult Rflxon 01-25-20 Bilirubin Ql (U) Negative Normal Negative [facility] Comment on above: Performed By: #### 4 [id number] #### [facility] [address] [place] [address] Clarity (U) Clear Normal Clear [facility] Comment on above: Performed By: #### 4 [id number] #### [facility] [address] [place] [address] Color (U) Light-Yellow Normal Yellow [facility] Comment on above: Result Comment: Micr oscopic readings are only performed on those samples that meet specific criteria set forth by [facility]. Performed By: #### 4 [id number] #### [facility] [address] [place] [address] Glucose Ql (U) Negative Normal Negative [facility] Comment on above: Performed By: #### 4 [id number] #### [facility] [address] [place] [address] Hemoglobin Auto test strip (U) [Mass/Vol] Negative Normal Negative [facility] Comment on above: Performed By: #### 4 [id number] #### [facility] [address] [place] [address] Ketones Auto test strip Ql (U) Negative Normal Negative [facility] Comment on above: Performed By: #### 4 [id number] #### [facility] [address] [place] [address] Leukocyte esterase Auto test strip Ql (U) Negative Normal Negative [facility] Comment on above: Performed By: #### 4 [id number] #### [facility] [address] [place] [address] Nitrite Auto test strip Ql (U) Negative Normal Negative [facility] Comment on above: Performed By: #### 4 [id number] #### [facility] [address] [place] [address] pH (U) 5.5 [pH] Invalid Interpretation Code 5.0-9.0 [facility] Comment on above: Performed By: #### 4 [id number] #### [facility] [address] [place] [address] Protein Ql (U) Negative Normal Negative [facility] Comment on above: Performed By: #### 4 [id number] #### [facility] [address] [place] [address] Specific gravity (U) [Rel density] 1.013 Invalid Interpretation Code 1.005-1.030 [facility] Comment on above: Performed By: #### 4 [id number] #### [facility] [address] [place] [address] Urobilinogen (U) [Mass/Vol] Negative Normal Negative [facility] Comment on above: Performed By: #### 4 [id number] #### [facility] [address] [place] [address] Type of Urine collection method Clean Catch Normal [facility] Comment on above: Performed By: #### 4 [id number] #### [facility] [address] [place] [address] URINALYSISOrdered By: SYSTEM SYSTEM on 01-25-2024 Bilirubin Ql (U) Negative Normal Negativemg/ dL [facility] UA Auto SS Clarity (U) Clear (01/25/24 8:54 AM) Normal Clear [facility] UA Auto SS Color (U) Light-Yellow 1 (01/25/24 8:54 AM) Normal Yellow [facility] UA Auto SS Comment on above: Interpretive Data: M icroscopic readings are only performed on those samples that meet specific criteria set forth by [facility]. Glucose Ql (U) Negative Normal [...] Protein Ql (U) Negative Normal Negativemg/ dL FT UA Auto SS Specific gravity (U) [Rel [...] mGy = n/a DAP = n/a Normal [facility] eGFRon 01-25-2024 eGFR 116 mL/min/1.73 m2 Normal >=59 [facility] Comment on above: Performed By: #### 1 [id number] #### [facility] [address] [place] [address] ALL THYROID STIM HORMONEon 03-21-2023 TSH Qn 3.486 m[IU]/L [facility] ALL THYROXINE (T4) FREEon Free T4 [Mass/Vol] 0.81 ng/dL 0.76 - 1. 46 ng/dL [facility] No Panel Informationon 01-19 [facility] Alanine aminotransferase [En zymatic activity/volume] in Serum or PlasmaOrdered By: Ghassan Ramos on 12-09-2023 ALT [Catalytic activity/Vol] 11 U/L Normal 7-52 [facility] Comment on above: Performed By: #### C RP, ESR, CBC, CMP #### [facility] [address] [place] [address] [place] Albumin [Mass/volume] in Ser um or Plasma by Bromocresol green (BCG) dye binding methoOrdered By: Ghassan Ramos on 12-09-2023 Albumin BCG dye [Mass/Vol] 4.3 g/dL 3.5-5.7 [facility] Alkaline phosphatase [Enzyma tic activity/volume] in Serum or PlasmaOrdered By: Ghassan Ramos on 12-09-2023 ALP [Catalytic activity/Vol] 69 U/L Normal 34-104 [facility] Comment on above: Performed By: #### C RP, ESR, CBC, CMP #### [address] Aspartate aminotransferase [ Enzymatic activity/volume] in Serum or PlasmaOrdered By: Ghassan Ramos on 12-09-2023 AST [Catalytic activity/Vol] 13 U/L Normal 13-39 [facility] Comment on above: Performed By: #### C RP, ESR, CBC, CMP #### [address] Automated basophil %Ordered By: Ghassan Ramos on 12-09-2023 Basophils/100 WBC (Bld) 0.4 % Normal . [facility] Comment on above: Performed By: #### C RP, ESR, CBC, CMP #### [address] Automated basophil countOrde red By: Ghassan Ramos on 12-09-2023 Basophils (Bld) [#/Vol] 0.0 10*3/uL Normal 0.0-0.2 [facility] Comment on above: Performed By: #### C RP, ESR, CBC, CMP #### [address] Automated blood monocyte cou ntOrdered By: Ghassan Ramos on 12-09-2023 Monocytes (Bld) [#/Vol] 0.6 10*3/uL Normal 0.0-0.8 [facility] Comment on above: Performed By: #### C RP, ESR, CBC, CMP #### [address] Automated eosinophil %Ordere d By: Ghassan Ramos on 12-09-2023 Eosinophils/100 WBC (Bld) 2.1 % Normal . [facility] Comment on above: Performed By: #### C RP, ESR, CBC, CMP #### [address] Automated eosinophil countOr dered By: Ghassan Ramos on 12-09-2023 Eosinophils (Bld) [#/Vol] 0.1 10*3/uL Normal 0.0-0.45 [facility] Comment on above: Performed By: #### C RP, ESR, CBC, CMP #### [address] Automated monocyte %Ordered By: Ghassan Ramos on 12-09-2023 Monocytes/100 WBC (Bld) 8.7 % Normal . [facility] Comment on above: Performed By: #### C RP, ESR, CBC, CMP #### [address] Automated neutrophil %Ordere d By: Ghassan Ramos on 12-09-2023 Neutrophils/100 WBC (Bld) 62.7 % Normal . [facility] Comment on above: Performed By: #### C RP, ESR, CBC, CMP #### [address] Bilirubin.total [Mass/volume ] in Serum or PlasmaOrdered By: Ghassan Ramos on 12-09-2023 Bilirubin [Mass/Vol] 0.8 mg/dL Normal 0.3-1.0 [facility] Comment on above: Performed By: #### C RP, ESR, CBC, CMP #### [address] C reactive protein [Mass/vol ume] in Serum or PlasmaOrdered By: Ghassan Ramos on 12-09-2023 CRP [Mass/Vol] 1.5 mg/dL High 0.0-0.5 [facility] C-Reactive Proteinon 024 C-Reactive Protein 1.5 mg/dL High 0.0-0.5 [facility] Comment on above: Result Comment: PERF ORMED BY: [place] [address] PATHOLOGIST GENERAL COUNSELOR CARTER MARSHALL M.D. Performed By: #### C RP, ESR, CBC, CMP #### [address] Calcium [Mass/volume] in Ser um or PlasmaOrdered By: Ghassan Ramos on 12-09-2023 Calcium [Mass/Vol] 9.6 mg/dL Normal 8.6-10.3 [facility] Comment on above: Performed By: #### C RP, ESR, CBC, CMP #### [address] Carbon dioxide, total [Moles /volume] in Serum or PlasmaOrdered By: Ghassan Ramos on 12-09-2023 CO2 [Moles/Vol] 27.9 mmol/L Normal 21.0-31.0 [facility] Comment on above: Performed By: #### C RP, ESR, CBC, CMP #### [place] [address] [place] Chloride [Moles/volume] in S maureen or PlasmaOrdered By: Ghassan Ramos on 12-09-2023 Chloride [Moles/Vol] 104 mmol/L Normal 98-107 [facility] Comment on above: Performed By: #### C RP, ESR, CBC, CMP #### [address] Complete Blood Count Auto Di ffon 12-09-2023 Mean Corpuscular HGB Conc 34.6 g/dL Normal 32.0-35.0 [facility] Comment on above: Performed By: #### C RP, ESR, CBC, CMP #### [facility] [address] [place] [address] NRBC% 0.2 /100{WBC} Normal 0-0.5 [facility] Comment on above: Performed By: #### C RP, ESR, CBC, CMP #### [address] Comprehensive Metabolic Pane tono 12-09-2023 Albumin [Mass/Vol] 4.3 g/dL Normal 3.5-5.7 [facility] Comment on above: Performed By: #### C RP, ESR, CBC, CMP #### [address] GFR/1.73 sq M.predicted MDRD (S/P/Bld) [Vol rate/Area] mL/min/{1.73_m2} Normal [facility] Comment on above: Performed By: #### C RP, ESR, CBC, CMP #### [address] Creatinine [Mass/volume] in Serum or PlasmaOrdered By: Ghassan Ramos on 12-09-2023 Creatinine [Mass/Vol] 0.57 mg/dL Low 0.60-1.20 [facility] Comment on above: Performed By: #### C RP, ESR, CBC, CMP #### [address] Erythrocyte Sedimentation Ra roxann 12-09-2023 ESR (Bld) [Velocity] 27 mm/h High 0-19 [facility] Comment on above: Result Comment: PERF ORMED BY: [place] [address] PATHOLOGIST GENERAL COUNSELOR CARTER MARSHALL M.D. Performed By: #### C RP, ESR, CBC, CMP #### [facility] [address] Erythrocyte distribution wid th [Ratio] by Automated countOrdered By: Ghassan Ramos on 12-09-2023 Erythrocyte distribution width (RBC) [Ratio] 13.2 % Normal 11.9-15.3 [facility] Comment on above: Performed By: #### C RP, ESR, CBC, CMP #### [address] Erythrocyte sedimentation ra te by Photometric methodOrdered By: Ghassan Ramos on 12-09-2023 ESR Photometric method (Bld) [Velocity] 27 mm/hr High 0-19 [facility] Erythrocytes [#/volume] in B lood by Automated countOrdered By: Ghassan Ramos on 12-09-2023 RBC (Bld) [#/Vol] 4.48 10*6/uL Normal 3.60-5.00 [facility] Comment on above: Performed By: #### C RP, ESR, CBC, CMP #### [address] Glucose [Mass/volume] in Ser um or PlasmaOrdered By: Ghassan Ramos on 12-09-2023 Glucose [Mass/Vol] 90 mg/dL Normal 70-100 [facility] Comment on above: ADA recommended refe rence rangeRandom Glucose Reference Range is dependent on time and content of last meal. Glucose of more than 200 mg/dL in a nonstressed, ambulatory subject supports the diagnosis of Diabetes Mellitus. Result Comment: [place] Glucose Reference Range is dependent on time and content of last meal. Glucose of more than 200 mg/dL in a nonstressed, ambulatory subject supports the diagnosis of Diabetes Mellitus. ADA recommended reference range Performed By: #### C RP, ESR, CBC, CMP #### [address] Hematocrit [Volume Fraction] of Blood by Automated countOrdered By: Ghassan Ramos on 12-09-2023 Hematocrit (Bld) [Volume fraction] 38.9 % Normal 34.0-46.4 [facility] Comment on above: Performed By: #### C RP, ESR, CBC, CMP #### [facility] [address] Hemoglobin [Mass/volume] in BloodOrdered By: Ghassan Ramos on 12-09-2023 Hemoglobin (Bld) [Mass/Vol] 13.5 g/dL Normal 11.8-15.4 [facility] Comment on above: Performed By: #### C RP, ESR, CBC, CMP #### [address] Leukocytes [#/volume] correc ting for nucleated erythrocytes in Blood by Automated counOrdered By: Ghassan Ramos on 12-09-2023 WBC corrected for nucl RBC Auto (Bld) [#/Vol] 7.2 10*3/uL 3.8-11.6 [facility] Leukocytes [#/volume] in Blo od by Automated countOrdered By: Ghassan Ramos on 12-09-2023 WBC (Bld) [#/Vol] 7.2 10*3/uL Normal 3.8-11.6 [facility] Comment on above: Performed By: #### C RP, ESR, CBC, CMP #### [address] Lymphocytes [#/volume] in Bl ood by Automated countOrdered By: Ghassan Ramos on 12-09-2023 Lymphocytes (Bld) [#/Vol] 1.9 10*3/uL Normal 1.00-4.8 [facility] Comment on above: Performed By: #### C RP, ESR, CBC, CMP #### [address] Lymphocytes/100 leukocytes i n Blood by Automated countOrdered By: Ghassan Ramos on 12-09-2023 Lymphocytes/100 WBC (Bld) 26.1 % Normal . [facility] Comment on above: Performed By: #### C RP, ESR, CBC, CMP #### [place] [address] [place] MCH [Entitic mass] by Automa ting countOrdered By: Ghassan Ramos on 12-09-2023 MCH (RBC) [Entitic mass] 30.1 pg Normal 24.7-34.3 [facility] Comment on above: Performed By: #### C RP, ESR, CBC, CMP #### [facility] [address] [place] [address] MCHC Auto (RBC) [Mass/Vol]Or dered By: Ghassan Ramos on 12-09-2023 MCHC (RBC) [Mass/Vol] 34.6 g/dL 32.0-35.0 [facility] MCV [Entitic volume] by Auto mated countOrdered By: Ghassan Ramos on 12-09-2023 MCV (RBC) [Entitic vol] 86.9 fL Normal 80-[address] [facility] Comment on above: Performed By: #### C RP, ESR, CBC, CMP #### [address] Neutrophils [#/volume] in Bl ood by Automated countOrdered By: Ghassan Ramos on 12-09-2023 Neutrophils (Bld) [#/Vol] 4.5 10*3/uL Normal 1.8-7.7 [facility] Comment on above: Performed By: #### C RP, ESR, CBC, CMP #### [facility] [address] [place] [address] No Panel InformationOrdered By: Ghassan Ramos on 12-09-2023 Estimated GFR (CKD-EPI) > 60.0 mL/Min [facility] Creatinine Clearance (Chem N/A [facility] Nucleated erythrocytes [Pres ence] in Blood by Automated countOrdered By: Ghassan Ramos on 12-09-2023 Nucleated RBC Auto Ql (Bld) 0.2 /100{WBC} 0-0.5 [facility] Platelet mean volume [Entiti c volume] in Blood by Automated countOrdered By: Ghassan Ramos on 12-09-2023 Platelet mean volume (Bld) [Entitic vol] 8.5 fL Normal 6.3-10.7 [facility] Comment on above: Performed By: #### C RP, ESR, CBC, CMP #### [facility] [address] [place] [address] Platelets [#/volume] in Bloo d by Automated countOrdered By: Ghassan Ramos on 12-09-2023 Platelets (Bld) [#/Vol] 349 10*3/uL Normal 150-450 [facility] Comment on above: Performed By: #### C RP, ESR, CBC, CMP #### [address] Potassium [Moles/volume] in Serum or PlasmaOrdered By: Ghassan Ramos on 12-09-2023 Potassium [Moles/Vol] 4.4 mmol/L Normal 3.5-5.1 [facility] Comment on above: Performed By: #### C RP, ESR, CBC, CMP #### [address] Protein [Mass/volume] in Ser um or PlasmaOrdered By: Ghassan Ramos on 12-09-2023 Protein [Mass/Vol] 6.8 g/dL Normal 6.4-8.9 [facility] Comment on above: Performed By: #### C RP, ESR, CBC, CMP #### [address] Serum globulin measurement b y calculation (mass/volume)Ordered By: Ghassan Ramos on 12-09-2023 Globulin (S) [Mass/Vol] 2.5 g/dL Normal [facility] Comment on above: Performed By: #### C RP, ESR, CBC, CMP #### [address] Serum or plasma albumin/glob ulin mass ratioOrdered By: Ghassan Ramos on 12-09-2023 Albumin/Globulin [Mass ratio] 1.7 {ratio} Normal [facility] Comment on above: Performed By: #### C RP, ESR, CBC, CMP #### [address] Serum or plasma anion gap de terminationOrdered By: Ghassan Ramos on 12-09-2023 Anion gap [Moles/Vol] 10.5 mmol/L Normal 6.0-15.0 [facility] Comment on above: Performed By: #### C RP, ESR, CBC, CMP #### [facility] [address] [place] [address] [place] Sodium [Moles/volume] in Ser um or PlasmaOrdered By: Ghassan Ramos on 12-09-2023 Sodium [Moles/Vol] 138 mmol/L Normal 136-145 [facility] Comment on above: Performed By: #### C RP, ESR, CBC, CMP #### [facility] [address] Urea nitrogen [Mass/volume] in Serum or PlasmaOrdered By: Ghassan Ramos on 12-09-2023 Urea nitrogen [Mass/Vol] 16 mg/dL Normal 7-25 [facility] Comment on above: Performed By: #### C RP, ESR, CBC, CMP #### [facility] [address] ALL THYROID STIM HORMONEon 0 11-09-2023 Interpretation and review of laboratory results Abnormal [facility] TSH Qn 3.894 m[IU]/L High [facility] COVID + FLU Quick Testingon 02-26-2023 SARS-CoV-2 (COVID-19) RNA LIANNE+probe Ql (Unsp spec) Positive [facility] [employer] Other COVID + FLU Quick Testing Negative [facility] [employer] Other CBC AUTO DIFFon 05-28-2022 BASO # 0.0 103/ul Normal 0.0-0.1 [facility] Comment on above: Performed By: #### C BC #### [facility] [address] [address] [address] Tracey Mccoy Basophils/100 WBC (Bld) 0.3 % Normal 0.2-2.0 [facility] Comment on above: Performed By: #### C BC #### [facility] [address] [address] [address] Tracey Mccoy EO # 0.2 103/ul Normal 0.0-0.7 [facility] Comment on above: Performed By: #### C BC #### [facility] [address] [place] [address] Dr. Tracey Mccoy Eosinophils/100 WBC (Bld) 1.7 % Normal 0.9-7.0 [facility] Comment on above: Performed By: #### C BC #### [facility] [address] [place] [address] Dr. Tracey Mccoy Erythrocyte distribution width (RBC) [Ratio] 12.4 % Normal 11.0-15.0 [facility] Comment on above: Performed By: #### C BC #### [facility] [address] [place] [address] Dr. Tracey Mccoy Hematocrit (Bld) [Volume fraction] 36.2 % Normal 36.0-48.0 [facility] Comment on above: Performed By: #### C BC #### [facility] [address] [place] [address] Dr. Tracey Mccoy Hemoglobin (Bld) [Mass/Vol] 12.2 g/dL Normal 12.0-16.0 [facility] Comment on above: Performed By: #### C BC #### [facility] [address] [place] [address] Dr. Tracey Mccoy IG # 0.05 10e3/ul Critically high 0.00-0.03 [facility] Comment on above: Performed By: #### C BC #### [facility] [address] [place] [address] Dr. Tracey Mccoy IG % 0.5 % Normal 0.0-0.5 [facility] Comment on above: Performed By: #### C BC #### [facility] [address] [place] [address] Dr. Tracey Mccoy LYMPH # 2.3 103/ul Normal 1.2-3.8 [facility] Comment on above: Performed By: #### C BC #### [facility] [address] [place] [address] Dr. Tracey Mccoy Lymphocytes/100 WBC (Bld) 25.6 % Normal 20.5-60.0 [facility] Comment on above: Performed By: #### C BC #### [facility] [address] [place] [address] Dr. Tracey Mccoy MANUAL DIFF REQ NO Normal [facility] Comment on above: Performed By: #### C BC #### [facility] [address] [place] [address] Dr. Tracey Mccoy MCH (RBC) [Entitic mass] 29.0 pg Normal 26.7-34.0 [facility] Comment on above: Performed By: #### C BC #### [facility] [address] [place] [address] Dr. Tracey Mccoy MCHC (RBC) [Mass/Vol] 33.7 g/dL Normal 29.9-35.2 [facility] Comment on above: Performed By: #### C BC #### [facility] [address] [place] [address] Dr. Tracey Mccoy MCV (RBC) [Entitic vol] 86.0 fL Normal 81.0-99.0 [facility] Comment on above: Performed By: #### C BC #### [facility] [address] [place] [address] Dr. Tracey Mccoy MONO # 0.7 103/ul Normal 0.3-0.8 [facility] Comment on above: Performed By: #### C BC #### [facility] [address] [place] [address] Dr. Tracey Mccoy Monocytes/100 WBC (Bld) 7.7 % Normal 1.7-12.0 [facility] Comment on above: Performed By: #### C BC #### [facility] [address] [place] [address] Dr. Tracey Mccoy NEUT # 5.9 103/ul Normal 1.4-6.5 [facility] Comment on above: Performed By: #### C BC #### [facility] [address] [place] [address] Dr. Tracey Mccoy Neutrophils/100 WBC (Bld) 64.2 % Normal 43.0-75.0 [facility] Comment on above: Performed By: #### C BC #### [facility] [address] [place] [address] Dr. Tracey Mccoy Platelet mean volume (Bld) [Entitic vol] 9.5 fL Normal 9.5-13.5 [facility] Comment on above: Performed By: #### C BC #### [facility] [address] [place] [address] Dr. Tracey Mccoy PLT 348 103/ul Normal 150-450 [facility] Comment on above: Performed By: #### C BC #### [facility] [address] [place] [address] Dr. Tracey Mccoy RBC 4.21 106/ul Normal 4.20-5.40 [facility] Comment on above: Performed By: #### C BC #### [facility] [address] [place] [address] Dr. Tracey Mccoy WBC 9.2 103/ul Normal 4.0-11.0 [facility] Comment on above: Performed By: #### C BC #### [facility] [address] [place] [address] Dr. Tracey Mccoy FERRITINon 05-28-2022 Ferritin [Mass/Vol] 15.0 ng/mL Normal 6.2-137.0 [facility] Comment on above: Performed By: #### F ERR #### [facility] [address] [place] [address] Dr. Tracey Mccoy MAGNESIUMon 05-28-2022 Magnesium [Mass/Vol] 1.7 mg/dL Critically low 1.8-2.4 [facility] Comment on above: Performed By: #### M G, CMP #### [facility] [address] [place] [address] Dr. Tracey Mccoy PROF 14(COMP METB)on 023 Albumin [Mass/Vol] 3.7 g/dL Normal 3.4-5.0 [facility] Comment on above: Performed By: #### M G, CMP #### [facility] [address] [place] [address] Dr. Tracey Mccoy Albumin/Globulin [Mass ratio] 1.0 {ratio} Normal [facility] Comment on above: Performed By: #### M G, CMP #### [facility] [address] [address] [address] Tracey Mccoy ALP [Catalytic activity/Vol] 89 U/L Normal 46-116 [facility] Comment on above: Performed By: #### M G, CMP #### [facility] [address] [address] Dr. Tracey Mccoy ALT [Catalytic activity/Vol] 26 U/L Normal 14-59 [facility] Comment on above: Performed By: #### M G, CMP #### [facility] [address] [address] [address] Tracey Mccoy Anion gap [Moles/Vol] 13.2 mmol/L Normal [facility] Comment on above: Performed By: #### M G, CMP #### [facility] [address] [place] [address] Dr. Tracey Mccoy AST [Catalytic activity/Vol] 19 U/L Normal 15-37 [facility] Comment on above: Performed By: #### M G, CMP #### [facility] [address] [place] [address] Dr. Tracey Mccoy Bilirubin [Mass/Vol] 0.6 mg/dL Normal 0.2-1.0 [facility] Comment on above: Performed By: #### M G, CMP #### [facility] [address] [place] [address] Dr. Tracey Mccoy Calcium [Mass/Vol] 9.2 mg/dL Normal 8.5-10.1 [facility] Comment on above: Performed By: #### M G, CMP #### [facility] [address] [address] [address] Tracey Mccoy Chloride [Moles/Vol] 101 mmol/L Normal 98-107 [facility] Comment on above: Performed By: #### M G, CMP #### [facility] [address] [address] [address] Tracey Mccoy CO2 [Moles/Vol] 26.9 mmol/L Normal 21.0-32.0 [facility] Comment on above: Performed By: #### M G, CMP #### [facility] [address] [address] [address] Tracey Mccoy Creatinine [Mass/Vol] 0.47 mg/dL Critically low 0.55-1.02 [facility] Comment on above: Performed By: #### M G, CMP #### [facility] [address] [address] [address] Tracey Mccoy EGFR-AF BULGARIAN >60 Normal >=60 [facility] Comment on above: Performed By: #### M G, CMP #### [facility] [address] [address] [address] Tracey Mccoy EGFR-NON AF BULGARIAN >60 Normal >=60 [facility] Comment on above: Performed By: #### M G, CMP #### [facility] [address] [place] [address] Dr. Tracey Mccoy Globulin (S) [Mass/Vol] 3.6 g/dL Normal [facility] Comment on above: Performed By: #### M G, CMP #### [facility] [address] [address] [address] Tracey Mccoy Glucose [Mass/Vol] 88 mg/dL Normal 74-106 [facility] Comment on above: Performed By: #### M G, CMP #### [facility] [address] [place] [address] Dr. Tracey Mccoy Potassium [Moles/Vol] 4.1 mmol/L Normal 3.5-5.1 [facility] Comment on above: Performed By: #### M G, CMP #### [facility] [address] [address] [address] Tracey Mccoy Protein [Mass/Vol] 7.3 g/dL Normal 6.4-8.[address] [facility] Comment on above: Performed By: #### M G, CMP #### [facility] [address] [address] [address] Tracey Mccoy Sodium [Moles/Vol] 137 mmol/L Normal 136-[address] [facility] Comment on above: Performed By: #### M G, CMP #### [facility] [address] [address] [address] Tracey Mccoy Urea nitrogen [Mass/Vol] 5.0 mg/dL Critically low 7.0-18.0 [facility] Comment on above: Performed By: #### M G, CMP #### [facility] [address] [address] [address] Tracey Mccoy Urea nitrogen/Creatinine [Mass ratio] 10.6 mg/mg Normal [facility] Comment on above: Performed By: #### M G, CMP #### [facility] [address] [place] [address] Dr. Tracey Mccoy PAP ACOG PANEL 2: 30 to 63on 05-14-2022 . . Normal [facility] Comment on above: Result Comment: Perf ormed at: WB Performed By: #### [id number] #### [facility] [address] [place] [address] Dr. Tracey Mccoy Age Gdln ACOG Testing -63 Normal [facility] Comment on above: Performed By: #### [id number] #### [facility] [address] [place] [address] Dr. Tracey Mccoy DIAGNOSIS: Comment Normal [facility] Comment on above: Result Comment: NEGA TIVE FOR INTRAEPITHELIAL LESION OR MALIGNANCY. Performed at: WB Performed By: #### [id number] #### [facility] [address] [place] [address] Dr. Tracey Mccoy HPV Aptima Negative Normal Negative [facility] Comment on above: Result Comment: This nucleic acid amplification test detects fourteen high-risk HPV types (16,18,31,33,35,39,45,51,52,56,58,59,66,68) without differentiation. Performed at: =G Performed By: #### [id number] #### [facility] [address] [place] [address] Dr. Tracey Mccoy HPV Genotype Reflex Comment Normal [facility] Comment on above: Result Comment: Crit eria not met, HPV Genotype not performed. Performed at: WB Performed By: #### [id number] #### [facility] [address] [place] [address] Dr. Tracey Mccoy Methodology: Comment Normal [facility] Comment on above: Result Comment: This liquid based ThinPrep(R) pap test was screened with the use of an image guided system. Performed at: WB Performed By: #### [id number] #### [facility] [address] [place] [address] Dr. Tracey Mccoy Note: Comment Normal [facility] Comment on above: Result Comment: The Pap smear is a screening test designed to aid in the detection of premalignant and malignant conditions of the uterine cervix. It is not a diagnostic procedure and should not be used as the sole means of detecting cervical cancer. Both false-positive and false-negative reports do occur. . Performed at: WB Performed By: #### [id number] #### [facility] [address] [place] [address] Dr. Tracey Mccoy Performed by: Comment Normal [facility] Comment on above: Result Comment: Daysi Cheema, [employer] Supervisor Performed at: WB Performed By: #### [id number] #### [facility] [address] [place] [address] Dr. Tracey Mccoy Specimen adequacy: Comment Normal [facility] Comment on above: Result Comment: Sati sfactory for evaluation. Endocervical and/or squamous metaplastic cells (endocervical component) are present. Performed at: WB Performed By: #### [id number] #### [facility] [address] [place] [address] Dr. Tracey Mccoy BNPon 02-23-2022 Natriuretic peptide B (Bld) [Mass/Vol] 37.0 pg/mL Normal <=450.0 [facility] Comment on above: Performed By: #### B ENVIRONMENTAL SYSTEMS COORDINATOR #### [facility] [address] [place] [address] Dr. Tracey Mccoy CBC AUTO DIFFon 02-23-2022 BASO # 0.0 103/ul Normal 0.0-0.1 [facility] Comment on above: Performed By: #### C BC #### [facility] [address] [place] [address] Dr. Tracey Mccoy Basophils/100 WBC (Bld) 0.3 % Normal 0.2-2.0 [facility] Comment on above: Performed By: #### C BC #### [facility] [address] [place] [address] Dr. Tracey Mccoy EO # 0.0 103/ul Normal 0.0-0.7 [facility] Comment on above: Performed By: #### C BC #### [facility] [address] [place] [address] Dr. Tracey Mccoy Eosinophils/100 WBC (Bld) 0.3 % Critically low 0.9-7.0 [facility] Comment on above: Performed By: #### C BC #### [facility] [address] [place] [address] Dr. Tracey Mccoy Erythrocyte distribution width (RBC) [Ratio] 12.9 % Normal 11.0-15.0 [facility] Comment on above: Performed By: #### C BC #### [facility] [address] [place] [address] Dr. Tracey Mccoy Hematocrit (Bld) [Volume fraction] 37.5 % Normal 36.0-48.0 [facility] Comment on above: Performed By: #### C BC #### [facility] [address] [place] [address] Dr. Tracey Mccoy Hemoglobin (Bld) [Mass/Vol] 12.1 g/dL Normal 12.0-16.0 [facility] Comment on above: Performed By: #### C BC #### [facility] [address] [place] [address] Dr. Tracey Mccoy IG # 0.02 10e3/ul Normal 0.00-0.03 [facility] Comment on above: Performed By: #### C BC #### [facility] [address] [place] [address] Dr. Tracey Mccoy IG % 0.3 % Normal 0.0-0.5 [facility] Comment on above: Performed By: #### C BC #### [facility] [address] [place] [address] Dr. Tracey Mccoy LYMPH # 2.0 103/ul Normal 1.2-3.8 [facility] Comment on above: Performed By: #### C BC #### [facility] [address] [place] [address] Dr. Tracey Mccoy Lymphocytes/100 WBC (Bld) 28.4 % Normal 20.5-60.0 [facility] Comment on above: Performed By: #### C BC #### [facility] [address] [place] [address] Dr. Tracey Mccoy MANUAL DIFF REQ NO Normal [facility] Comment on above: Performed By: #### C BC #### [facility] [address] [place] [address] Dr. Tracey Mccoy MCH (RBC) [Entitic mass] 28.5 pg Normal 26.7-34.0 [facility] Comment on above: Performed By: #### C BC #### [facility] [address] [place] [address] Dr. Tracey Mccoy MCHC (RBC) [Mass/Vol] 32.3 g/dL Normal 29.9-35.2 [facility] Comment on above: Performed By: #### C BC #### [facility] [address] [place] [address] Dr. Tracey Mccoy MCV (RBC) [Entitic vol] 88.4 fL Normal 81.0-99.0 [facility] Comment on above: Performed By: #### C BC #### [facility] [address] [place] [address] Dr. Tracey Mccoy MONO # 0.5 103/ul Normal 0.3-0.8 [facility] Comment on above: Performed By: #### C BC #### [facility] [address] [place] [address] Dr. Tracey Mccoy Monocytes/100 WBC (Bld) 7.7 % Normal 1.7-12.0 [facility] Comment on above: Performed By: #### C BC #### [facility] [address] [place] [address] Dr. Tracey Mccoy NEUT # 4.4 103/ul Normal 1.4-6.5 [facility] Comment on above: Performed By: #### C BC #### [facility] [address] [place] [address] Dr. Tracey Mccoy Neutrophils/100 WBC (Bld) 63.0 % Normal 43.0-75.0 [facility] Comment on above: Performed By: #### C BC #### [facility] [address] [place] [address] Dr. Tracey Mccoy Platelet mean volume (Bld) [Entitic vol] 9.2 fL Critically low 9.5-13.5 [facility] Comment on above: Performed By: #### C BC #### [facility] [address] [place] [address] Dr. Tracey Mccoy PLT 278 103/ul Normal 150-450 [facility] Comment on above: Performed By: #### C BC #### [facility] [address] [place] [address] Dr. Tracey Mccoy RBC 4.24 106/ul Normal 4.20-5.40 [facility] Comment on above: Performed By: #### C BC #### [facility] [address] [place] [address] Dr. Tracey Mccoy WBC 6.9 103/ul Normal 4.0-11.0 [facility] Comment on above: Performed By: #### C BC #### [facility] [address] [place] [address] Dr. Tracey Mccoy PROF 14(COMP METB)on 022 Albumin [Mass/Vol] 3.7 g/dL Normal 3.4-5.0 [facility] Comment on above: Performed By: #### C JASIEL HSTROPN #### [facility] [address] [place] [address] Dr. Tracey Mccoy Albumin/Globulin [Mass ratio] 0.9 {ratio} Normal [facility] Comment on above: Performed By: #### C JASIEL HSTROPN #### [facility] [address] [place] [address] Dr. Tracey Mccoy ALP [Catalytic activity/Vol] 103 U/L Normal 46-116 [facility] Comment on above: Performed By: #### C JASIEL HSTROPN #### [facility] [address] [place] [address] Dr. Tracey Mccoy ALT [Catalytic activity/Vol] 67 U/L Critically high 14-59 [facility] Comment on above: Performed By: #### C JASIEL, HSTROPN #### [facility] [address] [address] [address] Tracey Mccoy Anion gap [Moles/Vol] 9.6 mmol/L Normal [facility] Comment on above: Performed By: #### C JASIEL, HSTROPN #### [facility] [address] [place] [address] Dr. Tracey Mccoy AST [Catalytic activity/Vol] 100 U/L Critically high 15-37 [facility] Comment on above: Performed By: #### C JASIEL HSTROPN #### [facility] [address] [place] [address] Dr. Tracey Mccoy Bilirubin [Mass/Vol] 0.4 mg/dL Normal 0.2-1.0 [facility] Comment on above: Performed By: #### C JASIEL, HSTROPN #### [facility] [address] [place] [address] Dr. Tracey Mccoy Calcium [Mass/Vol] 8.8 mg/dL Normal 8.5-10.1 [facility] Comment on above: Performed By: #### C JASIEL, HSTROPN #### [facility] [address] [place] [address] Dr. Tracey Mccoy Chloride [Moles/Vol] 104 mmol/L Normal 98-107 [facility] Comment on above: Performed By: #### C JASIEL, HSTROPN #### [facility] [address] [place] [address] Dr. Tracey Mccoy CO2 [Moles/Vol] 28.5 mmol/L Normal 21.0-32.0 [facility] Comment on above: Performed By: #### C JASIEL, HSTROPN #### [facility] [address] [address] [address] Tracey Mccoy Creatinine [Mass/Vol] 0.71 mg/dL Normal 0.55-1.02 [facility] Comment on above: Performed By: #### C MP, HSTROPN #### [facility] [address] [address] [address] Tracey Mccoy EGFR-AF BULGARIAN >60 Normal >=60 [facility] Comment on above: Performed By: #### C MP, HSTROPN #### [facility] [address] [address] [address] Tracey Mccoy EGFR-NON AF BULGARIAN >60 Normal >=60 [facility] Comment on above: Performed By: #### C MP, HSTROPN #### [facility] [address] [address] [address] Tracey Mccoy Globulin (S) [Mass/Vol] 3.9 g/dL Normal [facility] Comment on above: Performed By: #### C MP, HSTROPN #### [facility] [address] [address] [address] Tracey Mccoy Glucose [Mass/Vol] 113 mg/dL Critically high 74-106 [facility] Comment on above: Performed By: #### C MP, HSTROPN #### [facility] [address] [address] [address] Tracey Mccoy Potassium [Moles/Vol] 3.1 mmol/L Critically low 3.5-5.1 [facility] Comment on above: Performed By: #### C MP, HSTROPN #### [facility] [address] [address] [address] Tracey Mccoy Protein [Mass/Vol] 7.6 g/dL Normal 6.4-8.2 [facility] Comment on above: Performed By: #### C MP, HSTROPN #### [facility] [address] [address] [address] Tracey Mccoy Sodium [Moles/Vol] 139 mmol/L Normal 136-145 [facility] Comment on above: Performed By: #### C MP, HSTROPN #### [facility] [address] [address] [address] Tracey Mccoy Urea nitrogen [Mass/Vol] 9.0 mg/dL Normal 7.0-18.0 [facility] Comment on above: Performed By: #### C MP, HSTROPN #### [facility] [address] [address] [address] Tracey Mccoy Urea nitrogen/Creatinine [Mass ratio] 12.7 mg/mg Normal [facility] Comment on above: Performed By: #### C MP, HSTROPN #### [facility] [address] [address] [address] Tracey Mccoy TROPONIN, HIGH SENSITIVITYon 02-23-2022 HSTROP 5.8 pg/mL Normal 4.0-51.3 [facility] Comment on above: Result Comment: CUT- OFF POINTS HAVE BEEN ESTABLISHED BASED ON THE FOURTH UNIVERSAL DEFINITIONS OF MYOCARDIAL INFARCTION. THE UPPER REFERENCE LIMIT (URL) OF TROPONIN, DEFINED THE 99TH PERCENTILE OF cTnI DISTRIBUTION IN A REFERENCE POPULATION, HAS BEEN CONFIRMED THE DECISION THRESHOLD FOR NC DIAGNOSIS. Performed By: #### C JASIEL, HSTROPN #### [facility] [address] [address] [address] Tracey Mccoy XR CHEST 1 Von [...] by: CHAN RICHEY Date: 2022-02-23 03:04 Normal [facility] Vital Signs Date Time Vital Sign Value Performing Clinician Facility 10-12-2024 15:33-0400 Body height 167.6 cm Bernardo Silverio DO Work Phone: [facility] 10-12-2024 15:33-0400 Body mass index (BMI) [Ratio] 45.19 kg/m2 Bernardo Silverio DO Work Phone: [facility] 10-12-2024 15:33-0400 Body weight 127.01 kg Bernardo Silverio DO Work Phone: [facility] 10-10-2024 14:09-0400 Body mass index (BMI) [Ratio] 45.35 kg/m2 Elvie Percy ENVIRONMENTAL SYSTEMS COORDINATOR Work Phone: [facility] 10-10-2024 14:09-0400 Body temperature 98.1 [degF] Elvie Percy ENVIRONMENTAL SYSTEMS COORDINATOR Work Phone: [facility] 10-10-2024 14:09-0400 Body weight 127.46 kg Elvie Aichtrevonz ENVIRONMENTAL SYSTEMS COORDINATOR Work Phone: [facility] 10-10-2024 14:09-0400 Diastolic blood pressure 86 mm[Hg] Elvie Amadorhholz ENVIRONMENTAL SYSTEMS COORDINATOR Work Phone: [facility] 10-10-2024 14:09-0400 Heart rate 83 /min Elvie Amadorhtrevonz ENVIRONMENTAL SYSTEMS COORDINATOR Work Phone: [facility] 10-10-2024 14:09-0400 Respiratory rate 18 /min Elvie Aichholz ENVIRONMENTAL SYSTEMS COORDINATOR Work Phone: [facility] 10-10-2024 14:09-0400 SaO2% (BldA) [Mass fraction] 99 % Elvie Amadorhtrevonz ENVIRONMENTAL SYSTEMS COORDINATOR Work Phone: [facility] 10-10-2024 14:09-0400 Systolic blood pressure 112 mm[Hg] Elvie Amadorhholz ENVIRONMENTAL SYSTEMS COORDINATOR Work Phone: [facility] 07-03-2025 10:50-0400 Body mass index (BMI) [Ratio] 47.45 kg/m2 Prabhakar Cordova MD Work Phone: [facility] 09-07-2024 10:50-0400 Body weight 133.36 kg Prabhakar Cordova MD Work Phone: [facility] 08-08-2024 14:25-0400 Body mass index (BMI) [Ratio] 47.45 kg/m2 Elvie Greer ENVIRONMENTAL SYSTEMS COORDINATOR Work Phone: [facility] 08-08-2024 14:25-0400 Body temperature 97.81 [degF] Elvieariane Greer ENVIRONMENTAL SYSTEMS COORDINATOR Work Phone: [facility] 08-08-2024 14:25-0400 Body weight 133.36 kg Elvie Percy ENVIRONMENTAL SYSTEMS COORDINATOR Work Phone: [facility] 08-08-2024 14:25-0400 Diastolic blood pressure 88 mm[Hg] Elvie Percy ENVIRONMENTAL SYSTEMS COORDINATOR Work Phone: [facility] 08-08-2024 14:25-0400 Heart rate 88 /min Elvie Chingz ENVIRONMENTAL SYSTEMS COORDINATOR Work Phone: [facility] 08-08-2024 14:25-0400 Respiratory rate 20 /min Elvie Chingz ENVIRONMENTAL SYSTEMS COORDINATOR Work Phone: [facility] 08-08-2024 14:25-0400 SaO2% (BldA) [Mass fraction] 98 % Elvie Percy ENVIRONMENTAL SYSTEMS COORDINATOR Work Phone: [facility] 08-08-2024 14:25-0400 Systolic blood pressure 118 mm[Hg] Elvie Chingz ENVIRONMENTAL SYSTEMS COORDINATOR Work Phone: [facility] 08-03-2024 11:53-0400 Body mass index (BMI) [Ratio] 47.63 kg/m2 Javier Andrew DO Work Phone: [facility] 08-03-2024 11:53-0400 Body weight 133.87 kg Javier Andrew DO Work Phone: [facility] 08-03-2024 11:53-0400 Diastolic blood pressure 88 mm[Hg] Javier Andrew DO Work Phone: [facility] 08-03-2024 11:53-0400 Systolic blood pressure 138 mm[Hg] Javier Andrew DO Work Phone: [facility] 06-22-2024 16:08-0400 Body height 167.6 cm Chan Khan DO Work Phone: [facility] 06-22-2024 16:08-0400 Body mass index (BMI) [Ratio] 48.45 kg/m2 Chan Khan DO Work Phone: [facility] 06-22-2024 16:08-0400 Body weight 136.17 kg Chan Khan DO Work Phone: [facility] 06-20-2024 15:31-0400 Diastolic blood pressure 88 mm[Hg] Elvie Aichholz ENVIRONMENTAL SYSTEMS COORDINATOR Work Phone: [facility] 06-20-2024 15:31-0400 Systolic blood pressure 132 mm[Hg] Elvie Aichholz ENVIRONMENTAL SYSTEMS COORDINATOR Work Phone: [facility] 06-20-2024 14:53-0400 Body mass index (BMI) [Ratio] 48.94 kg/m2 Elvie Aichholz ENVIRONMENTAL SYSTEMS COORDINATOR Work Phone: [facility] 06-20-2024 14:53-0400 Body temperature 98.49 [degF] Elvie Aichholz ENVIRONMENTAL SYSTEMS COORDINATOR Work Phone: [facility] 06-20-2024 14:53-0400 Body weight 137.53 kg Elvie Aichholz ENVIRONMENTAL SYSTEMS COORDINATOR Work Phone: [facility] 06-20-2024 14:53-0400 Heart rate 92 /min Elvie Aichholz ENVIRONMENTAL SYSTEMS COORDINATOR Work Phone: [facility] 06-20-2024 14:53-0400 Respiratory rate 20 /min Elvie Aichholz ENVIRONMENTAL SYSTEMS COORDINATOR Work Phone: [facility] 06-20-2024 14:53-0400 SaO2% (BldA) [Mass fraction] 99 % Elvie Percy ENVIRONMENTAL SYSTEMS COORDINATOR Work Phone: [facility] 05-30-2024 10:10-0400 Body mass index (BMI) [Ratio] 48.55 kg/m2 Javier Andrew DO Work Phone: [facility] 05-30-2024 10:10-0400 Body weight 136.44 kg Javier Andrew DO Work Phone: [facility] 05-30-2024 10:10-0400 Diastolic blood pressure 90 mm[Hg] Javier Andrew DO Work Phone: [facility] 05-30-2024 10:10-0400 Systolic blood pressure 110 mm[Hg] Javier Andrew DO Work Phone: [facility] 05-09-2024 08:41-0500 Body height 167.6 cm Elvie Percy ENVIRONMENTAL SYSTEMS COORDINATOR Work Phone: [facility] 05-09-2024 08:41-0500 Body mass index (BMI) [Ratio] 48.1 kg/m2 Elvie Percy ENVIRONMENTAL SYSTEMS COORDINATOR Work Phone: [facility] 05-09-2024 08:41-0500 Body temperature 98.71 [degF] Elvie Percy ENVIRONMENTAL SYSTEMS COORDINATOR Work Phone: [facility] 05-09-2024 08:41-0500 Body weight 135.17 kg Elvie Percy ENVIRONMENTAL SYSTEMS COORDINATOR Work Phone: [facility] 05-09-2024 08:41-0500 Diastolic blood pressure 82 mm[Hg] Elvie Percy ENVIRONMENTAL SYSTEMS COORDINATOR Work Phone: [facility] 05-09-2024 08:41-0500 Heart rate 91 /min Elvie Chingz ENVIRONMENTAL SYSTEMS COORDINATOR Work Phone: [facility] 05-09-2024 08:41-0500 Respiratory rate 19 /min Elvie Percy ENVIRONMENTAL SYSTEMS COORDINATOR Work Phone: [facility] 05-09-2024 08:41-0500 SaO2% (BldA) [Mass fraction] 97 % Elvie Percy ENVIRONMENTAL SYSTEMS COORDINATOR Work Phone: [facility] 05-09-2024 08:41-0500 Systolic blood pressure 118 mm[Hg] Elvie Roismicha ENVIRONMENTAL SYSTEMS COORDINATOR Work Phone: [facility] 03-23-2024 14:45-0500 Body height 167.6 cm Chan Khan DO Work Phone: [facility] 03-23-2024 14:45-0500 Body mass index (BMI) [Ratio] 47.78 kg/m2 Chan Hkan DO Work Phone: [facility] 03-23-2024 14:45-0500 Body weight 134.26 kg Chan Khan DO Work Phone: [facility] 02-21-2024 16:57-0500 Heart rate 80 /min Chan Khan [facility] 02-21-2024 16:57-0500 SaO2% (BldA) [Mass fraction] 99 % Chan Khan [facility] 02-21-2024 16:56-0500 Blood Pressure Location Chan Khan [facility] 02-21-2024 16:56-0500 Diastolic blood pressure 79 mm[Hg] Chan Khan [facility] 02-21-2024 16:56-0500 Mean blood pressure 92 mm[Hg] Chan Khan [facility] 02-21-2024 16:56-0500 Systolic blood pressure 119 mm[Hg] Chan Khan [facility] 02-21-2024 16:56-0500 Respiratory rate 16 /min Chan Khan [facility] 02-21-2024 16:13-0500 Heart rate 60 /min Chan Khan [facility] 02-21-2024 16:13-0500 SaO2% (BldA) [Mass fraction] 98 % Chan Loren [facility] 02-21-2024 16:13-0500 Respiratory rate 18 /min Chan Loren [facility] 02-21-2024 16:13-0500 Blood Pressure Location Chan Loren [facility] 02-21-2024 16:13-0500 Diastolic blood pressure 69 mm[Hg] Chan Khan [facility] 02-21-2024 16:13-0500 Mean blood pressure 82 mm[Hg] Chan Khan [facility] 02-21-2024 16:13-0500 Systolic blood pressure 108 mm[Hg] Chan Khan [facility] 02-21-2024 13:38-0500 Heart rate 78 /min Chan Khan [facility] 02-21-2024 13:38-0500 SaO2% (BldA) [Mass fraction] 100 % Chan Loren [facility] 02-21-2024 13:37-0500 Blood Pressure Location Chan Loren [facility] 02-21-2024 13:37-0500 Diastolic blood pressure 74 mm[Hg] Chan Khan [facility] 02-21-2024 13:37-0500 Mean blood pressure 86 mm[Hg] Chan Khan [facility] 02-21-2024 13:37-0500 Systolic blood pressure 111 mm[Hg] Chan Khan [facility] 02-21-2024 13:37-0500 Respiratory rate 16 /min Chan Khan [facility] 02-21-2024 13:30-0500 Body temperature 96.8 [degF] Chan Khan [facility] 02-21-2024 13:30-0500 Respiratory rate 13 /min Chan Khan [facility] 02-21-2024 13:25-0500 Respiratory rate 17 /min Chan Khan [facility] 02-21-2024 13:10-0500 Respiratory rate 20 /min Chan Khan [facility] 02-21-2024 12:27-0500 Body temperature 97.16 [degF] Chan Khan [facility] 02-21-2024 08:25-0500 Body temperature 97.7 [degF] Chan Khan [facility] 02-08-2024 08:27-0500 Body height 167.6 cm Elvie Percy ENVIRONMENTAL SYSTEMS COORDINATOR Work Phone: [facility] 02-08-2024 08:27-0500 Body mass index (BMI) [Ratio] 47.81 kg/m2 Elvie Chingz ENVIRONMENTAL SYSTEMS COORDINATOR Work Phone: [facility] 02-08-2024 08:27-0500 Body temperature 98.6 [degF] Elvie Amadorhtrevonz ENVIRONMENTAL SYSTEMS COORDINATOR Work Phone: [facility] 02-08-2024 08:27-0500 Body weight 134.35 kg Elvie Amadorhtrevonz ENVIRONMENTAL SYSTEMS COORDINATOR Work Phone: [facility] 02-08-2024 08:27-0500 Diastolic blood pressure 88 mm[Hg] Elvie Aichholz ENVIRONMENTAL SYSTEMS COORDINATOR Work Phone: [facility] 02-08-2024 08:27-0500 Heart rate 89 /min Elvie Aichholz ENVIRONMENTAL SYSTEMS COORDINATOR Work Phone: [facility] 02-08-2024 08:27-0500 Respiratory rate 20 /min Elvie Aichholz ENVIRONMENTAL SYSTEMS COORDINATOR Work Phone: [facility] 02-08-2024 08:27-0500 SaO2% (BldA) [Mass fraction] 98 % Elvie Riosmicha ENVIRONMENTAL SYSTEMS COORDINATOR Work Phone: [facility] 02-08-2024 08:27-0500 Systolic blood pressure 120 mm[Hg] Elvie Greer ENVIRONMENTAL SYSTEMS COORDINATOR Work Phone: [facility] 01-25-2024 08:41-0500 Diastolic blood pressure 80 mm[Hg] Chan Khan [facility] 01-25-2024 08:41-0500 Heart rate 78 /min Chan Khan [facility] 01-25-2024 08:41-0500 Mean blood pressure 98 mm[Hg] Chan Khan [facility] 01-25-2024 08:41-0500 Systolic blood pressure 134 mm[Hg] Chan Khan [facility] 01-25-2024 08:41-0500 Body temperature 97.88 [degF] Chan Khan [facility] 01-25-2024 08:41-0500 Respiratory rate 17 /min Chan Khan [facility] 01-25-2024 08:40-0500 Heart rate 76 /min Chan Khan [facility] 01-25-2024 08:40-0500 SaO2% (BldA) [Mass fraction] 100 % Chan Khan [facility] 01-25-2024 08:40-0500 Diastolic blood pressure 80 mm[Hg] Chan Khan [facility] 01-25-2024 08:40-0500 Mean blood pressure 95 mm[Hg] Chan Khan [facility] 01-25-2024 08:40-0500 Systolic blood pressure 127 mm[Hg] Chan Khan [facility] 01-13-2024 15:18-0500 Body height 167.6 cm Chan Khan DO Work Phone: [facility] 01-13-2024 15:18-0500 Body mass index (BMI) [Ratio] 48.1 kg/m2 Chan Khan DO Work Phone: [facility] 01-13-2024 15:18-0500 Body weight 135.17 kg Chan Khan DO Work Phone: [facility] 11-26-2023 10:57-0400 Body height 165.1 cm [facility] 11-26-2023 10:57-0400 Body mass index (BMI) [Ratio] 51.1 kg/m2 [facility] 11-26-2023 10:57-0400 Body temperature 97.8 [degF] [facility] 11-26-2023 10:57-0400 Body weight 139.47 kg [facility] 11-26-2023 10:57-0400 Diastolic blood pressure 86 mm[Hg] [facility] 11-26-2023 10:57-0400 Heart rate 98 /min [facility] 11-26-2023 10:57-0400 Respiratory rate 16 /min [facility] 11-26-2023 10:57-0400 SaO2% (BldA) [Mass fraction] 99 % [facility] 11-26-2023 10:57-0400 Systolic blood pressure 129 mm[Hg] [facility] 11-09-2023 14:04-0400 Body mass index (BMI) [Ratio] 51.62 kg/m2 Elvie Greer ENVIRONMENTAL SYSTEMS COORDINATOR Work Phone: [facility] 11-09-2023 14:04-0400 Body temperature 97.81 [degF] Elvie Greer ENVIRONMENTAL SYSTEMS COORDINATOR Work Phone: [facility] 11-09-2023 14:04-0400 Body weight 140.71 kg Elvie Greer ENVIRONMENTAL SYSTEMS COORDINATOR Work Phone: [facility] 11-09-2023 14:04-0400 Diastolic blood pressure 86 mm[Hg] Elvie Greer ENVIRONMENTAL SYSTEMS COORDINATOR Work Phone: [facility] 11-09-2023 14:04-0400 Heart rate 84 /min Elvie Greer ENVIRONMENTAL SYSTEMS COORDINATOR Work Phone: [facility] 11-09-2023 14:04-0400 SaO2% (BldA) [Mass fraction] 100 % Elvie Greer ENVIRONMENTAL SYSTEMS COORDINATOR Work Phone: [facility] 11-09-2023 14:04-0400 Systolic blood pressure 128 mm[Hg] Elvie Greer ENVIRONMENTAL SYSTEMS COORDINATOR Work Phone: [facility] 02-26-2023 09:45-0500 Body height 157.48 cm Mary Jo Morelia Other [email or web address] Other 02-26-2023 09:45-0500 Body mass index (BMI) [Ratio] 57.13 kg/m2 Mary Jo Morelia Other [email or web address] Other 02-26-2023 09:45-0500 Body temperature 97.2 [degF] Mary Jo Morelia Other [email or web address] Other 02-26-2023 09:45-0500 Body weight 141.7 kg Mary Jo Morelia Other [email or web address] Other 02-26-2023 09:45-0500 Diastolic blood pressure 86 mm[Hg] Mary Jo Morelia Other [email or web address] Other 02-26-2023 09:45-0500 Respiratory rate 18 /min Mary Jo Morelia Other [email or web address] Other 02-26-2023 09:45-0500 SaO2% (BldA) [Mass fraction] 98 % Mary Jo Moerlia Other [email or web address] Other 02-26-2023 09:45-0500 Systolic blood pressure 136 mm[Hg] Mary Jo Thibodeaux Other [facility] [employer] Other Encounters Encounter Date Encounter Type Care Provider Facility Start: 11-16-2024 End: 11-16-2024 Bamclarko flowsheet Prabhakar Cordova MD Work Phone: [facility] Start: 11-16-2024 End: 11-16-2024 Bamboo flowsiris Cordova MD Work Phone: [facility] Start: 11-16-2024 End: 11-16-2024 Office outpatient visit 25 minutes Prabhakar Cordova MD Work Phone: [facility] Comment on above: Severe persistent as thma with acute exacerbation (HCC) (Primary Dx); Chronic rhinitis Start: 11-16-2024 End: 11-17-2024 Refill Prabhakar Cordova MD Work Phone: [facility] Comment on above: Severe persistent as thma with acute exacerbation (HCC) Start: 11-02-2024 End: 11-02-2024 Refill Elvie Greer NP Work Phone: [facility] Comment on above: Anxiety and depressi on Start: 10-31-2024 End: 10-31-2024 Office outpatient visit 25 minutes Bernardo Silverio DO Work Phone: [facility] Comment on above: 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) Start: 10-31-2024 End: 10-31-2024 ambulatory BERNARDO SILVERIO Not Available Start: 10-19-2024 End: 10-19-2024 Patient encounter procedure Bernardo Silverio DO -CT Scan Judi luis alfredo [place] Work Phone: Start: 10-19-2024 End: 10-19-2024 ambulatory Elvie Greer Work Phone: [facility] Work Phone: Start: 10-12-2024 End: 10-12-2024 Office outpatient new 45 minutes Bernardo Silverio DO Work Phone: [facility] Comment on above: Recurrent ventral he rnia Start: 10-12-2024 End: 10-12-2024 ambulatory BERNARDO SILVERIO Not Available Start: 10-10-2024 End: 10-10-2024 Bamboo flowsheet Elvie Aicelaz ENVIRONMENTAL SYSTEMS COORDINATOR Work Phone: [facility] Start: 10-10-2024 End: 10-10-2024 Bamboo flowsheet Elvie Aichholz ENVIRONMENTAL SYSTEMS COORDINATOR Work Phone: [facility] Start: 10-10-2024 End: 10-10-2024 Office outpatient visit 25 minutes Elvie Percy ENVIRONMENTAL SYSTEMS COORDINATOR Work Phone: [facility] Comment on above: Heart palpitations ( Primary Dx); Essential hypertension ; Morbid (severe) obesity due to excess calories ([facility]); Hypothyroidism, unspecified type ; Anxiety and depression ; Hypomagnesemia; Moderate persistent asthma without complication ([facility]); Gastroesophageal reflux disease, unspecified whether esophagitis present; Ventral hernia without obstruction or gangrene Start: 10-10-2024 End: 10-10-2024 ambulatory ELVIE AICHHOLZ Not Available Start: 10-03-2024 End: 10-03-2024 Refill Elvie Aichholz ENVIRONMENTAL SYSTEMS COORDINATOR Work Phone: [facility] Comment on above: Hypomagnesemia Start: 09-26-2024 End: 09-26-2024 Refill Elvie Aichholz ENVIRONMENTAL SYSTEMS COORDINATOR Work Phone: [facility] Comment on above: Hypothyroidism, unsp ecified type (Primary Dx) Start: 09-21-2024 End: 09-21-2024 Clinisync Result Encounter Elvie Chingz ENVIRONMENTAL SYSTEMS COORDINATOR Work Phone: [facility] Unsolicited Start: 09-21-2024 End: 09-21-2024 Clinisync Result Encounter Elvie Aichholz ENVIRONMENTAL SYSTEMS COORDINATOR Work Phone: [facility] Unsolicited Start: 09-15-2024 End: 09-15-2024 ambulatory [facility] Start: 09-11-2024 End: 09-11-2024 Bamboo flowsheet Javier Andrew DO Work Phone: [facility] Start: 09-11-2024 End: 09-11-2024 Bamboo flowsheet Javier Andrew DO Work Phone: [facility] Start: 09-11-2024 End: 09-11-2024 ambulatory JAVIER ANDREW Not Available Start: 09-11-2024 End: 09-11-2024 Online digital e/m svc est pt <7 d 5-10 minutes Javier Andrew DO Work Phone: [facility] Comment on above: Hormone disorder (Pr imary Dx) Start: 09-07-2024 End: 09-07-2024 Office outpatient new 45 minutes Prabhakar Cordova MD Work Phone: [facility] Comment on above: Environmental and se asonal allergies (Primary Dx); Mild intermittent asthma with (acute) exacerbation (HCC) Start: 09-07-2024 End: 09-07-2024 ambulatory PRABHAKAR CORDOVA Not Available Start: 09-05-2024 End: 09-05-2024 Clinisync Result Encounter Elvie Greer NP Work Phone: [facility] External Department Unsolicited Start: 09-05-2024 End: 09-05-2024 Clinisync Result Encounter Elvie Greer NP Work Phone: [facility] External Department Unsolicited Start: 08-08-2024 End: 08-08-2024 Office outpatient visit 25 minutes Elvie Greer NP Work Phone: [facility] Comment on above: Heart palpitations ( Primary Dx); Ventricular arrhythmia; Gastroesophageal reflux disease, unspecified whether esophagitis present; Morbid (severe) obesity due to excess calories (CMS/HCC); Anxiety and depression (CMS/HCC); Environmental and seasonal allergies; Moderate persistent asthma without complication (CMS/HCC) Start: 08-08-2024 End: 08-08-2024 ambulatory ELVIE GREER Not Available Start: 08-08-2024 End: 08-08-2024 Bamboo flowsheet Elvie Greer ENVIRONMENTAL SYSTEMS COORDINATOR Work Phone: [facility] Start: 08-08-2024 End: 08-08-2024 Bamboo flowsheet Elvie Greer ENVIRONMENTAL SYSTEMS COORDINATOR Work Phone: [facility] Start: 08-03-2024 End: 08-03-2024 Orders Only Elvie Riostrevonnikolas ENVIRONMENTAL SYSTEMS COORDINATOR Work Phone: [facility] Comment on above: Heart palpitations ( Primary Dx); Morbid (severe) obesity due to excess calories (CMS/HCC); Ventricular arrhythmia; Abnormal electrocardiogram (ECG) (EKG) Heart palpitations ( Primary Dx); Ventricular arrhythmia Start: 08-03-2024 End: 08-03-2024 Office outpatient visit 15 minutes Javier Morales DO Work Phone: [facility] Comment on above: Hormone disorder Start: 07-12-2024 End: 07-12-2024 Refill Elvie Riosmicha ENVIRONMENTAL SYSTEMS COORDINATOR Work Phone: [facility] Comment on above: Hypothyroidism, unsp ecified type (CMS/HCC) (Primary Dx) Start: 07-11-2024 End: 07-11-2024 Clinisync Result Encounter Elvie Greer ENVIRONMENTAL SYSTEMS COORDINATOR Work Phone: [facility] Unsolicited Start: 07-11-2024 End: 07-11-2024 Clinisync Result Encounter Elvie Flowernikolas ENVIRONMENTAL SYSTEMS COORDINATOR Work Phone: [facility] Unsolicited Start: 06-27-2024 End: 06-27-2024 Clinisync Result Encounter Elvie Greer ENVIRONMENTAL SYSTEMS COORDINATOR Work Phone: [facility] Unsolicited Start: 06-27-2024 End: 06-27-2024 Clinisync Result Encounter Elvie Riostrevonnikolas ENVIRONMENTAL SYSTEMS COORDINATOR Work Phone: [facility] Unsolicited Start: 06-27-2024 End: 06-27-2024 Refill Elvie Chingz ENVIRONMENTAL SYSTEMS COORDINATOR Work Phone: [facility] Comment on above: Hypomagnesemia (Prim ayw Dx) Start: 06-22-2024 End: 06-22-2024 Patient encounter procedure Chan Khan DO Work Phone: [facility] Comment on above: Aftercare following right knee joint replacement surgery (Primary Dx) Start: 06-22-2024 End: 06-22-2024 ambulatory CHAN KHAN Not Available Start: 06-22-2024 End: 06-22-2024 ambulatory CHAN Isabel KHAN Not Available Start: 06-20-2024 End: 06-20-2024 ambulatory ELVIE AICHHOLZ Not Available Start: 06-20-2024 End: 06-20-2024 Office outpatient visit 25 minutes Elvie Percy ENVIRONMENTAL SYSTEMS COORDINATOR Work Phone: [facility] Comment on above: Heart palpitations ( Primary Dx); Gastroesophageal reflux disease, unspecified whether esophagitis present; Morbid (severe) obesity due to excess calories (CMS/HCC); Hypomagnesemia Start: 06-20-2024 End: 06-20-2024 Bamboo flowsheet Elvie Percy ENVIRONMENTAL SYSTEMS COORDINATOR Work Phone: [facility] Start: 06-20-2024 End: 06-20-2024 Bamboo flowsheet Elvie Percy ENVIRONMENTAL SYSTEMS COORDINATOR Work Phone: [facility] Start: 06-09-2024 End: 06-11-2024 Refill Elvie Aichholz ENVIRONMENTAL SYSTEMS COORDINATOR Work Phone: [facility] Comment on above: Anxiety and depressi on (CMS/HCC) Start: 05-30-2024 End: 05-30-2024 Patient encounter procedure Javier Andrew DO Work Phone: [facility] Start: 05-30-2024 End: 05-30-2024 Periodic preventive med est patient 40-64yrs Javier Andrew DO Work Phone: [facility] Comment on above: Well woman exam with routine gynecological exam; Encounter for screening mammogram for malignant neoplasm of breast Start: 05-30-2024 End: 05-30-2024 ambulatory JAVIER MORALES Not Available Start: 05-25-2024 End: 05-25-2024 Admission to same day surgery center Kylee Jim PT [facility] Comment on above: Acute postoperative pain of right knee (Primary Dx); Status post right knee replacement; Aftercare following right knee joint replacement surgery; Arthritis of knee, right Start: 05-25-2024 End: 05-25-2024 ambulatory Kyleeyessi Fernandez PT [facility] Start: 05-23-2024 End: 05-23-2024 ambulatory KYLEE FERNANDEZ Not Available Start: 05-16-2024 End: 05-16-2024 ambulatory KYLEEAriane FERNANDEZ Not Available Start: 05-16-2024 End: 05-16-2024 Bamboo flowsheet Kyleeyessi Fernandez PT [facility] Start: 05-16-2024 [...] End: 05-10-2024 Clinisync Result Encounter Elvie Greer NP Work Phone: [facility] Unsolicited Start: 05-10-2024 End: 05-10-2024 Clinisync Result Encounter Elvie Greer NP Work Phone: [facility] Unsolicited Start: 05-09-2024 End: 05-09-2024 Office outpatient visit 25 minutes Elvie Greer NP Work Phone: [facility] Comment on above: Hypothyroidism due t [...] 05-01-2024 Admission to same day surgery center Kyleeariane Fernandez PT [facility] Comment on above: Acute postoperative pain of right knee (Primary Dx); Status post right knee replacement; Aftercare following right knee joint replacement surgery; Arthritis of knee, right; Presence of right artificial knee joint; Primary osteoarthritis of right knee Start: 05-01-2024 End: 05-01-2024 ambulatory Kylee Fernandez PT [facility] Start: 04-26-2024 End: 04-26-2024 Bamboo flowsheet Sumeet Brmatthew [employer] [facility] Start: 04-26-2024 End: 04-26-2024 Bamboo flowsheet Sumeet Carter [employer] [facility] Start: 04-26-2024 End: 04-26-2024 ambulatory Sumeet Carter [employer] [facility] Comment on above: Acute postoperative pain of right knee (Primary Dx); Status post right knee replacement; Difficulty walking Start: 04-24-2024 End: 04-24-2024 Admission to same day surgery center Kyleeariane Fernandez PT [facility] Comment on [...] Start: 04-18-2024 End: 04-18-2024 Clinisync Result Encounter Ajvier Andrew DO Work Phone: [facility] Unsolicited Start: 04-12-2024 End: 04-12-2024 Admission to same day surgery center Elis Cardenas [employer] [facility] Comment on above: Acute postoperative pain of right knee (Primary Dx); Status post right knee replacement; Difficulty walking; Aftercare following right knee joint replacement surgery Start: 04-12-2024 End: 04-12-2024 ambulatory Elis Cardenas [employer] [facility] Start: 04-12-2024 End: 04-12-2024 Bamboo flowsheet Elis Cardenas [employer] [facility] Start: 04-12-2024 End: 04-12-2024 Bamboo flowsheet Elis Cardenas [employer] [facility] Start: 04-10-2024 End: 04-10-2024 [...] Start: 04-05-2024 End: 04-06-2024 ambulatory Sumeet Carter [employer] [facility] Comment on above: Arthritis of knee, r ight (Primary Dx); Acute postoperative pain of right knee; Status post right knee replacement; Difficulty walking Start: 04-05-2024 End: 04-05-2024 Refill Elvie Greer ENVIRONMENTAL SYSTEMS COORDINATOR Work Phone: [facility] Comment on [...] Start: 03-28-2024 End: 03-29-2024 ambulatory Baldomero Stephenson [employer] [facility] Comment on above: Arthritis of knee, r ight (Primary Dx); Acute postoperative pain of right knee; Status post right knee replacement Start: 03-28-2024 End: 03-28-2024 Bamboo flowsheet Baldomero Stephenson [employer] [facility] Start: 03-28-2024 End: 03-28-2024 Bamboo flowsheet Baldomero Stephenson [employer] [facility] Start: 03-23-2024 End: 03-23-2024 [...] Start: 03-21-2024 End: 03-21-2024 Bamboo flowsheet Baldomero Stpehenson [employer] [facility] Start: 03-21-2024 End: 03-21-2024 Bamboo flowsheet Baldomero Stephenson [employer] [facility] Start: 03-15-2024 End: 03-15-2024 ambulatory Kylee Jim PT [facility] Comment [...] Clinical Support Mariano Mcbride PT Work Phone: [facility] Comment on above: Arthritis of knee, r ight (Primary Dx); Acute postoperative pain of right knee; Status post right knee replacement; Difficulty walking Start: 03-10-2024 End: 03-10-2024 Clinical Support Mariano Mcbride PT Work Phone: [facility] Comment on above: Arthritis of knee, r ight (Primary Dx); Acute postoperative pain of right knee; Status post right knee replacement; Difficulty walking Start: 03-07-2024 End: 03-07-2024 ambulatory MARIANO MCBRIDE Not Available Start: 03-06-2024 End: 03-06-2024 Clinical Support Mariano Mcbride PT Work Phone: [facility] Comment on above: Arthritis of knee, r ight (Primary Dx); Acute postoperative pain of right knee; Status post right knee replacement; Difficulty walking Start: 03-05-2024 End: 03-05-2024 ambulatory MARIANO MCBRIDE Not Available Start: 03-02-2024 End: 03-02-2024 Clinical Support Mariano Mcbride PT Work Phone: [facility] Comment on above: Arthritis of knee, r ight (Primary Dx); Acute postoperative pain of right knee; Status post right knee replacement; Difficulty walking Start: 02-28-2024 End: 02-28-2024 Clinical Support Mariano Mcbride PT Work Phone: [facility] Comment on above: Arthritis of knee, r ight (Primary Dx); Acute postoperative pain of right knee; Status post right knee replacement; Difficulty walking Start: 02-24-2024 End: 02-24-2024 Clinical Support Mariano Mcbride PT Work Phone: [facility] Comment on above: Arthritis [...] to same day surgery center Chan Khan [facility] Start: 02-21-2024 End: 02-21-2024 ambulatory Chan Khan Facility:[facility] Start: 02-10-2024 End: 02-10-2024 Bamboo flowsheet Kylee Fernandez PT [facility] Start: 02-10-2024 End: 02-10-2024 Bamboo flowsheet Kylee Fernandez PT [facility] Start: 02-10-2024 End: 02-11-2024 ambulatory Kylee Fernandez PT [facility] Comment on above: Primary osteoarthrit is of right knee (Primary Dx) Start: 02-08-2024 End: 02-08-2024 Bamboo flowsheet Elvie Greer ENVIRONMENTAL SYSTEMS COORDINATOR Work Phone: [facility] Start: 02-08-2024 End: 02-08-2024 Bamboo flowsheet Elvie Greer ENVIRONMENTAL SYSTEMS COORDINATOR Work Phone: [facility] Start: 02-08-2024 End: 02-08-2024 Office outpatient visit 25 minutes Elvie Greer ENVIRONMENTAL SYSTEMS COORDINATOR Work Phone: [facility] Comment on [...] Start: 02-08-2024 End: 02-08-2024 Refill Elvie Greer ENVIRONMENTAL SYSTEMS COORDINATOR Work Phone: [facility] Comment on above: Psoriasis (CMS/HCC) (Primary Dx) Start: 01-25-2024 End: 01-25-2024 Clinisync Result Encounter Chan Khan DO Work Phone: [facility] Unsolicited Start: 01-25-2024 End: 01-25-2024 Clinisync Result Encounter Chan Khan DO Work Phone: [facility] Unsolicited Start: 01-25-2024 End: 01-25-2024 ambulatory Chan Khan Facility:[facility] Start: 01-25-2024 End: 01-25-2024 Patient encounter procedure Chan Khan [facility] Start: 01-20-2024 End: 01-20-2024 Clinisync Result Encounter Elvie Greer NP Work Phone: [facility] Unsolicited Start: 01-20-2024 End: 01-20-2024 Clinisync Result Encounter Elvie Greer ENVIRONMENTAL SYSTEMS COORDINATOR Work Phone: [facility] Unsolicited Start: [...] Start: 12-26-2023 End: 12-26-2023 Refill Elvie Greer ENVIRONMENTAL SYSTEMS COORDINATOR Work Phone: [facility] Comment on above: Anxiety and depressi on (CMS/HCC); Aura's thyroiditis (CMS/HCC) Start: 12-09-2023 End: 12-09-2023 Patient encounter procedure Elvie Greer Work Phone: [facility] [address] Work Phone: Start: 12-09-2023 End: 12-09-2023 ambulatory Elvie Greer Work Phone: [facility] Work Phone: Start: 11-26-2023 End: 11-26-2023 Refill Elvie Greer NP Work Phone: [facility] Comment on above: Gastroesophageal ref lux disease, unspecified whether esophagitis present Start: 11-26-2023 End: 11-26-2023 ambulatory [facility] Work Phone: Start: 11-26-2023 End: 11-26-2023 Patient encounter procedure [facility] Work Phone: Start: 11-09-2023 End: 11-09-2023 Clinisync Result Encounter Elvie Greer NP Work Phone: [facility] Unsolicited Start: 11-09-2023 End: 11-09-2023 Clinisync Result Encounter Elvie Greer NP Work Phone: [facility] Unsolicited Start: 11-09-2023 End: 11-09-2023 Office outpatient visit 25 minutes Elvie Grere NP Work Phone: [facility] Comment on above: Aura's thyroidi tis (CMS/HCC) (Primary Dx); Morbid obesity with BMI of 50.0-59.9, adult (CMS/HCC); Psoriasis (CMS/HCC); Anxiety and depression (CMS/HCC); Gastroesophageal reflux disease, unspecified whether esophagitis present; Moderate persistent asthma without complication (CMS/HCC); Arthritis of knee, right Start: 07-19-2023 End: 07-20-2023 ambulatory Jamshid Sahu MD Facility:[facility] Start: 04-22-2023 End: 04-22-2023 Office outpatient visit 10 minutes Vivek Dickinson ENVIRONMENTAL SYSTEMS COORDINATOR Work Phone: [facility] Comment on above: Primary osteoarthrit is of right knee (Primary Dx); Right knee pain, unspecified chronicity Start: 04-14-2023 Telephone encounter Elvie darnell ENVIRONMENTAL SYSTEMS COORDINATOR Work Phone: [facility] Start: 02-26-2023 End: 02-26-2023 ambulatory Mary Jo Thibodeaux Other [email or web address] Other Start: 02-26-2023 Office outpatient vi sit 15 minutes Mary Jo Thibodeaux [facility] Start: 05-28-2022 End: 05-29-2022 ambulatory ASSISTANT GOLF COURSE SUPERINTENDENT ELVIE GREER Facility:[facility] Start: 05-06-2022 End: 05-06-2022 ambulatory ASSISTANT GOLF COURSE SUPERINTENDENT ELVIE GREER Facility:[facility] Start: 02-23-2022 End: 02-23-2022 ambulatory ASSISTANT GOL[employer]RSE SUPERINTENDENT ELVIE GREER Facility: Procedures Date Procedure Procedure Detail Performing Clinician Start: 10-19-2024 CT of abdomen and pe lvis without contrast Elvie Greer Work Phone: Start: 09-21-2024 ALL THYROID STIM HORMONE Elvie Greer ENVIRONMENTAL SYSTEMS COORDINATOR Work Phone: Start: 09-21-2024 ALL THYROXINE (T4) FREE Elvie Greer ENVIRONMENTAL SYSTEMS COORDINATOR Work Phone: Start: 09-05-2024 CA ECHO DOPPLER COMPLETE Elvie Greer ENVIRONMENTAL SYSTEMS COORDINATOR Work Phone: Start: 09-05-2024 NM MINOO PERF SPECT REST STR Elvie Greer ENVIRONMENTAL SYSTEMS COORDINATOR Work Phone: Start: 07-11-2024 ALL MAGNESIUM Elvie muse ENVIRONMENTAL SYSTEMS COORDINATOR Work Phone: Start: 07-11-2024 ALL THYROID STIM HORMONE Elvie Aicfahadholz ENVIRONMENTAL SYSTEMS COORDINATOR Work Phone: Start: 06-27-2024 ALL BASIC METABOLIC PANEL Elvie Aichholz ENVIRONMENTAL SYSTEMS COORDINATOR Work Phone: Start: 06-27-2024 ALL MAGNESIUM Elvie Aich micha ENVIRONMENTAL SYSTEMS COORDINATOR Work Phone: Start: 06-22-2024 Radiologic examinati on knee 3 views Chan Khan DO Work Phone: Start: 05-30-2024 Microscopic observat ion [Identifier] in Cervix by Cyto stain Elvie Chingz ENVIRONMENTAL SYSTEMS COORDINATOR Work Phone: Start: 05-10-2024 ALL CBC WITH AUTO DIFF Elvie Gabrielholz ENVIRONMENTAL SYSTEMS COORDINATOR Work Phone: Start: 04-18-2024 MM TOMOSYNTHESIS SCR EENING BI Javier Andrew DO Work Phone: Start: 04-18-2024 Mammography Javier Fazi o DO Work Phone: Start: 03-23-2024 Radiologic examinati on knee 3 views Chan Khan DO Work Phone: Start: 02-21-2024 Total knee replacement Chan Khan Start: 01-25-2024 UA WITH CULT RFLX Idris Khan DO Work Phone: Start: 01-20-2024 ALL THYROID STIM HORMONE Elvie Aichholz ENVIRONMENTAL SYSTEMS COORDINATOR Work Phone: Start: 01-20-2024 ALL THYROXINE (T4) FREE Elvie Aicfahadholz ENVIRONMENTAL SYSTEMS COORDINATOR Work Phone: Start: 11-09-2023 ALL THYROID STIM HORMONE Elvie Aichholz ENVIRONMENTAL SYSTEMS COORDINATOR Work Phone: Start: 05-27-2023 Microscopic observat ion [Identifier] in Cervix by Cyto stain Elvie Chingz ENVIRONMENTAL SYSTEMS COORDINATOR Work Phone: Cholecystectomy Chan mahajan History of hernia repair Kaiden Khan Plan of Treatment Date Care Activity Detail Author Start: 05-30-2029 Screening for malignant neoplasm of cervix [facility] Start: 05-26-2026 Screening for malignant neoplasm of cervix [facility] Start: 06-05-2025 End: 06-05-2025 Patient encounter procedure [facility] Start: 05-03-2025 End: 05-03-2025 Patient encounter procedure 05/03/2025 2:45 PM EST Office Visit [facility] [address] [place] [phone] Bernardo Silverio DO [address] [place] [address] [facility] Start: 04-18-2025 Screening for malignant neoplasm of breast Mammogram [facility] Start: 02-22-2025 End: 02-22-2025 Patient encounter procedure [facility] Start: 01-11-2025 End: 01-11-2025 Patient encounter procedure [facility] Start: 12-28-2024 End: 12-28-2024 Patient encounter procedure 12/28/2024 9:40 AM EDT Office Visit [facility] [address] [place] [phone] Prabhakar Cordova MD [address] [place] [address] [facility] Start: 11-27-2024 End: 09-26-2025 Thyrotropin [Units/volume] in Serum or Plasma TSH Lab Routine Hypothyroidism, unspecified type Expected: 11/27/2024 (Approximate), Expires: 09/26/2025 [facility] Work Phone: Comment on above: Expected: 11/27/2024 (Approximate), Expi res: 09/26/2025 Start: 11-27-2024 End: 09-26-2025 Thyroxine (T4) free [Mass/volume] in Serum or Plasma T4, free Lab Routine Hypothyroidism, unspecified type Expected: 11/27/2024 (Approximate), Expires: 09/26/2025 [facility] Comment on above: Expected: 11/27/2024 (Approximate), Expi res: 09/26/2025 Start: 11-16-2024 End: 11-16-2024 Patient encounter procedure [facility] Comment on above: Arrived Start: 11-06-2024 Influenza vaccination Influenza Vaccine (#1) [facility] Start: 10-12-2024 End: 10-12-2025 CT Abdomen and Pelvis WO contrast CT abdomen pelvis wo IV contrast Imaging Routine Recurrent ventral hernia Expected: 10/12/2024, Expires: 10/12/2025 [facility] Work Phone: Comment on above: Expected: 10/12/2024, Expires: Start: 10-10-2024 End: 10-10-2024 Patient encounter procedure [facility] Comment on above: Essential hypertension (Primary Dx); Heart palpitations; Morbid (severe) obesity due to excess calories ([facility]-HCC); Hypothyroidism, unspecified type ; Anxiety and depression ; Hypomagnesemia Start: 09-11-2024 End: 07-12-2025 Thyroxine (T4) free [Mass/volume] in Serum or Plasma T4, free Lab Routine Hypothyroidism, unspecified type (CMS/HCC) Expected: 09/11/2024 (Approximate), Expires: 07/12/2025 [facility] Comment on above: Expected: 09/11/2024 (Approximate), Expi res: 07/12/2025 Start: 09-11-2024 End: 09-11-2024 Patient encounter procedure 09/11/2024 8:10 AM EDT Office Visit [facility] [address] [place] [phone] Javier Morales, [address] [facility] [address] [place], [place] [phone] [facility] Start: 09-07-2024 End: 09-07-2024 Patient encounter procedure 09/07/2024 11:00 AM EDT Office Visit [facility] [address] [place] [address] Prabhakar Cordova MD [address] [place] [address] [facility] Start: 09-04-2024 End: 07-12-2025 Thyrotropin [Units/volume] in Serum or Plasma TSH Lab Routine Hypothyroidism, unspecified type (CMS/HCC) Expected: 09/04/2024 (Approximate), Expires: 07/12/2025 [facility] Work Phone: Comment on above: Expected: 09/04/2024 (Approximate), Expi res: 07/12/2025 Start: 08-08-2024 End: 08-08-2024 Patient encounter procedure [facility] Comment on above: Heart palpitations (Primary Dx); Ventricular arrhythmia; Gastroesophageal reflux disease, unspecified whether esophagitis present; Morbid (severe) obesity due to excess calories (CMS/HCC); Anxiety and depression ([facility]/HCC) Start: 08-03-2024 End: 08-03-2025 C-peptide C-peptide Lab Routine Hormone disorder Expected: 08/03/2024 (Approximate), Expires: 08/03/2025 [facility] Comment on above: Expected: 08/03/2024 (Approximate), Expi res: 08/03/2025 Start: 08-03-2024 End: 08-03-2025 Cortisol free Cortisol, free Lab Routine Hormone disorder Expected: 08/03/2024 (Approximate), Expires: 08/03/2025 [facility] Comment on above: Expected: 08/03/2024 (Approximate), Expi res: 08/03/2025 Start: 08-03-2024 End: 08-03-2026 Echocardiogram 2D complete Echocardiogram 2D complete Echocardiography Routine Ventricular arrhythmia Abnormal electrocardiogram (ECG) (EKG) Expected: 08/03/2024 (Approximate), Expires: 08/03/2026 [facility] Comment on above: Expected: 08/03/2024 (Approximate), Expi res: 08/03/2026 Start: 08-03-2024 End: 08-03-2025 Glucose [Mass/volume] in Serum or Plasma Glucose, random Lab Routine Hormone disorder Expected: 08/03/2024 (Approximate), Expires: 08/03/2025 [facility] Comment on above: Expected: 08/03/2024 (Approximate), Expi res: 08/03/2025 Start: 08-03-2024 End: 08-03-2025 Insulin, total Insulin, total Lab Routine Hormone disorder Expected: 08/03/2024 (Approximate), Expires: 08/03/2025 [facility] Comment on above: Expected: 08/03/2024 (Approximate), Expi res: 08/03/2025 Start: 08-03-2024 End: 08-03-2026 NM Heart Perfusion W single state of exercise Stress test with myocardial perfusion Cardiac Nuclear Medicine Routine Ventricular arrhythmia Abnormal electrocardiogram (ECG) (EKG) Expected: 08/03/2024 (Approximate), Expires: 08/03/2026 [facility] Work Phone: Comment on above: Expected: 08/03/2024 (Approximate), Expi res: 08/03/2026 Start: 08-03-2024 End: 08-03-2025 Serotonin serum Serotonin serum Lab Routine Hormone disorder Expected: 08/03/2024 (Approximate), Expires: 08/03/2025 [facility] Comment on above: Expected: 08/03/2024 (Approximate), Expi res: 08/03/2025 Start: 08-03-2024 End: 08-03-2025 Thyroglobulin Thyroglobulin Lab Routine Hormone disorder Expected: 08/03/2024 (Approximate), Expires: 08/03/2025 [facility] Comment on above: Expected: 08/03/2024 (Approximate), Expi res: 08/03/2025 Start: 08-03-2024 End: 08-03-2025 Thyroglobulin Antibody Thyroglobulin Antibody Lab Routine Hormone disorder Expected: 08/03/2024 (Approximate), Expires: 08/03/2025 [facility] Comment on above: Expected: 08/03/2024 (Approximate), Expi res: 08/03/2025 Start: 08-03-2024 End: 08-03-2025 Thyrotropin [Units/volume] in Serum or Plasma T4 Lab Routine Hormone disorder Expected: 08/03/2024 (Approximate), Expires: 08/03/2025 [facility] Comment on above: Expected: 08/03/2024 (Approximate), Expi res: 08/03/2025 Start: 07-10-2024 End: 05-10-2025 Thyrotropin [Units/volume] in Serum or Plasma TSH Lab Routine Hypothyroidism, unspecified type (CMS/HCC) Expected: 07/10/2024 (Approximate), Expires: 05/10/2025 [facility] Work Phone: Comment on above: Expected: 07/10/2024 (Approximate), Expi res: 05/10/2025 Start: 07-10-2024 End: 05-10-2025 Thyroxine (T4) free [Mass/volume] in Serum or Plasma T4, free Lab Routine Hypothyroidism, unspecified type (CMS/HCC) Expected: 07/10/2024 (Approximate), Expires: 05/10/2025 [facility] Comment on above: Expected: 07/10/2024 (Approximate), Expi res: 05/10/2025 Start: 06-27-2024 End: 06-27-2025 Magnesium [Mass/volume] in Serum or Plasma Magnesium Lab Routine Hypomagnesemia Expected: 06/27/2024 (Approximate), Expires: 06/27/2025 [facility] Work Phone: Comment on above: Expected: 06/27/2024 (Approximate), Expi res: 06/27/2025 Start: 06-22-2024 End: 06-22-2024 Patient encounter procedure 06/22/2024 3:45 PM EDT Office Visit [facility] [address] [place] [phone] Chan Khan DO [address] [place] [address] [facility] Start: 06-20-2024 End: 06-20-2024 Patient encounter procedure 06/20/2024 2:40 PM EDT Office Visit [facility] [address] [place] [phone] Elvie Greer NP [address] [place] [address] [facility] Start: 06-20-2024 End: 06-20-2025 Basic metabolic 1998 panel - Serum or Plasma Basic metabolic panel Lab Routine Heart palpitations Expected: 06/20/2024 (Approximate), Expires: 06/20/2025 [facility] Work Phone: Comment on above: Expected: 06/20/2024 (Approximate), Expi res: 06/20/2025 Start: 06-20-2024 End: 06-20-2025 Holter monitor study Holter monitor Imaging Routine Heart palpitations Expected: 06/20/2024 (Approximate), Expires: 06/20/2025 [facility] Comment on above: Expected: 06/20/2024 (Approximate), Expi res: 06/20/2025 Start: 06-20-2024 End: 06-20-2025 Magnesium [Mass/volume] in Serum or Plasma Magnesium Lab Routine Heart palpitations Expected: 06/20/2024 (Approximate), Expires: 06/20/2025 [facility] Comment on above: Expected: 06/20/2024 (Approximate), Expi res: 06/20/2025 Start: 05-30-2024 End: 05-30-2024 Patient encounter procedure 05/30/2024 10:00 AM EDT Office Visit [facility] [address] [place] [phone] Javier Morales, DO [address] [place] [address] [facility] Start: 05-25-2024 End: 05-25-2024 ambulatory 05/25/2024 2:30 PM EDT Treatment [facility] [address] [facility] [address] [place] [address] Kylee Fernandez, PT [facility] Start: 05-24-2024 End: 05-24-2024 ambulatory 05/24/2024 4:00 PM EDT Treatment [facility] [address] [place] [address] Sumeet Carter, PRECISION FILER HAND [facility] Start: 05-23-2024 End: 05-23-2024 ambulatory 05/23/2024 2:30 PM EDT Treatment [facility] [address] [place] [address] Kylee Fernandez, PT [facility] Start: 05-22-2024 End: 05-22-2024 ambulatory 05/22/2024 4:00 PM EDT Treatment [facility] [address] [place] [address] Sumeet Carter, PRECISION FILER HAND [facility] Start: 05-18-2024 End: 05-18-2024 ambulatory 05/18/2024 1:30 PM EDT Treatment [facility] [address] [place] [address] Kylee Fernandez, PT [facility] Start: 05-17-2024 End: 05-17-2024 ambulatory 05/17/2024 4:00 PM EDT Treatment [facility] [address] [facility] [address] [place] [address] Sumeet Carter, PRECISION FILER HAND [facility] Start: 05-16-2024 End: 05-16-2024 ambulatory 05/16/2024 2:30 PM EDT Treatment [facility] [address] [facility] [address] [place] [address] Kylee Fernandez, PT [facility] Start: 05-15-2024 End: 05-15-2024 ambulatory 05/15/2024 4:00 PM EDT Treatment [facility] [address] [facility] [address] [place] [address] Sumeet Carter, PRECISION FILER HAND [facility] Start: 05-10-2024 End: 05-10-2024 ambulatory [facility] Start: 05-09-2024 End: 05-09-2025 CBC W Auto Differential panel - Blood CBC and differential Lab Routine Mild persistent asthma without complication (CMS/HCC) 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) Expected: 05/09/2024 (Approximate), Expires: 05/09/2025 [facility] Work Phone: Comment on above: Expected: 05/09/2024 (Approximate), Expi res: 05/09/2025 Start: 05-09-2024 End: 05-09-2025 Comprehensive metabolic 2000 panel - Serum or Plasma Comprehensive metabolic panel Lab Routine Morbid (severe) obesity due to excess calories (CMS/HCC) Gastroesophageal reflux disease, unspecified whether esophagitis present 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) Anxiety and depression (CMS/HCC) Hypomagnesemia Elevated glucose Expected: 05/09/2024 (Approximate), Expires: 05/09/2025 [facility] Comment on above: Expected: 05/09/2024 (Approximate), Expi res: 05/09/2025 Start: 05-09-2024 End: 05-09-2025 Hemoglobin A1c/Hemoglobin.total in Blood Hemoglobin A1c Lab Routine Elevated glucose Expected: 05/09/2024 (Approximate), Expires: 05/09/2025 [facility] Comment on above: Expected: 05/09/2024 (Approximate), Expi res: 05/09/2025 Start: 05-09-2024 End: 05-09-2025 Lipid 1996 panel - Serum or Plasma Lipid panel Lab Routine Morbid (severe) obesity due to excess calories (CMS/HCC) Expected: 05/09/2024 (Approximate), Expires: 05/09/2025 [facility] Comment on above: Expected: 05/09/2024 (Approximate), Expi res: 05/09/2025 Start: 05-09-2024 End: 05-09-2025 Magnesium [Mass/volume] in Serum or Plasma Magnesium Lab Routine Hypomagnesemia Expected: 05/09/2024 (Approximate), Expires: 05/09/2025 [facility] Comment on above: Expected: 05/09/2024 (Approximate), Expi [...] 05/09/2024 8:40 AM EST [facility] [address] [place] [address] Elvie Greer, ENVIRONMENTAL SYSTEMS COORDINATOR [address] [place] [address] [facility] Start: 05-08-2024 End: 05-08-2024 ambulatory [facility] [...] CI PT [address] [place] [address] Kylee Fernandez, PT Acute postoperative pain of [...] Treatment [facility] [address] [facility] [address] [place] [address] Sumeet Carter, PRECISION FILER HAND [facility] Start: 04-19-2024 End: 04-19-2024 ambulatory [facility] Start: 04-17-2024 End: 04-17-2024 ambulatory [facility] Start: 04-14-2024 End: 04-14-2024 ambulatory 04/14/2024 2:00 PM EST Treatment [facility] [address] [facility] [address] [place] [address] Baldomero Stephenson PRECISION FILER HAND [facility] Start: 04-12-2024 End: 04-12-2024 ambulatory [facility] Comment on above: Arrived Start: 04-10-2024 End: 04-10-2024 ambulatory 04/10/2024 5:00 PM EST Treatment [facility] [address] [facility] [address] [place] [address] Kylee Fernandez, PT [facility] Start: 04-05-2024 End: 04-05-2024 ambulatory 04/05/2024 5:00 PM EST Treatment [facility] [address] [facility] [address] [place] [address] Sumeet Carter, PRECISION FILER HAND [facility] Start: 04-03-2024 End: 04-03-2024 [...] ORTH[facility] [address] [place] [phone] Chan Khan, DO [address] [place] [address] [facility] Start: 03-21-2024 End: 03-21-2024 ambulatory [facility] Comment on above: Arthritis of knee, right (Primary Dx) Start: 03-15-2024 End: 03-15-2024 ambulatory 03/15/2024 5:00 PM EST Treatment [facility] [address] [place] [address] yKlee Fernandez, PT [facility] Start: 02-10-2024 [...] Routine Pre-op testing Expected: 01/25/2024, Expires: 01/12/2025 [facility] Work Phone: Comment on above: Expected: 01/25/2024, Expires: Start: 01-13-2024 End: 01-13-2024 Patient encounter procedure 01/13/2024 3:15 PM EST Office Visit [facility] [address] [place] [phone] Chan Khan, DO [address] [place] [address] Arrived [facility] Comment on above: Arrived Start: 01-06-2024 Influenza vaccination Influenza Vaccine (#1) [facility] Comment on above: Postponed from 11/07/2023 (Patient Refus ed) Start: 2023 Screening for malignant neoplasm of breast Mammogram [facility] Start: 11-09-2023 End: 11-09-2023 Patient encounter procedure 11/09/2023 2:00 PM EDT Office Visit [facility] [address] [place] [phone] Elvie Greer, ENVIRONMENTAL SYSTEMS COORDINATOR [address] [place] [phone] [facility] Start: 11-09-2023 End: 11-08-2024 Thyrotropin [Units/volume] in Serum or Plasma TSH Lab Routine Aura's thyroiditis (CMS/HCC) Expected: 11/09/2023 (Approximate), Expires: 11/08/2024 [facility] Work Phone: Comment on above: Expected: 11/09/2023 (Approximate), Expi res: 11/08/2024 Start: 11-09-2023 End: 11-08-2024 Thyroxine (T4) free [Mass/volume] in Serum or Plasma T4, free Lab Routine Aura's thyroiditis (CMS/HCC) Expected: 11/09/2023 (Approximate), Expires: 11/08/2024 [facility] Comment on above: Expected: 11/09/2023 (Approximate), Expi res: 11/08/2024 Start: 05-27-2023 End: 05-27-2023 Patient encounter procedure 05/27/2023 10:00 AM EDT Office Visit [facility] [address] [place] [phone] Javier Morales DO [address] [place] [address] [facility] Start: 05-18-2023 End: 05-18-2023 Patient encounter procedure 05/18/2023 9:20 AM EDT Office Visit [facility] [address] [place] [address] Elvie Greer NP [address] [place] [address] [facility] Start: 04-22-2023 End: 04-22-2023 Patient encounter procedure 04/22/2023 10:15 AM EST Office Visit [facility] [address] [place] [phone] Vivek Dickinson NP [address] [place], [place] [phone] [facility] Start: 11-18-2013 Screening for malignant neoplasm of cervix [facility] Start: 11-18-2004 Screening for malignant neoplasm of cervix Pap Smear [facility] DHEA-sulfate DHEA-sulfate Lab Routine Hormone disorder Ordered: 08/03/2024 [facility] Comment on above: Ordered: 08/03/2024 Estradiol Estradiol Lab Ro utine Hormone disorder Ordered: 08/03/2024 [facility] Work Phone: Comment on above: Ordered: 08/03/2024 Estrone Estrone Lab Rout ine Hormone disorder Ordered: 08/03/2024 [facility] Comment on above: Ordered: 08/03/2024 Ferritin [Mass/volum e] in Serum or Plasma Ferritin Lab Routine Hormone disorder Ordered: 08/03/2024 [facility] Comment on above: Ordered: 08/03/2024 Hemoglobin A1c/Hemoglobin.total in Blood Hemoglobin A1c Lab Routine Hormone disorder Ordered: 08/03/2024 [facility] Comment on above: Ordered: 08/03/2024 Progesterone Progesterone Lab Routine Hormone disorder Ordered: 08/03/2024 [facility] Comment on above: Ordered: 08/03/2024 Sex hormone binding globulin Sex hormone binding globulin Lab Routine Hormone disorder Ordered: 08/03/2024 [facility] Comment on above: Ordered: 08/03/2024 T3, reverse T3, reverse Lab Routine Hormone disorder Ordered: 08/03/2024 [facility] Comment on above: Ordered: 08/03/2024 TESTOSTERONE, FREE TESTOSTERONE, FREE Lab Routine Hormone disorder Ordered: 08/03/2024 [facility] Comment on above: Ordered: 08/03/2024 Testosterone, free, total Testosterone, free, total Lab Routine Hormone disorder Ordered: 08/03/2024 [facility] Comment on above: Ordered: 08/03/2024 THIN PREP TIS PAP AN D HR HPV DNA THIN PREP TIS PAP AND HR HPV DNA Pathology and Cytology Routine Well woman exam with routine gynecological exam Ordered: 05/30/2024 [facility] Work Phone: Comment on above: Ordered: 05/30/2024 Thyroid peroxidase antibody Thyroid peroxidase antibody Lab Routine Hormone disorder Ordered: 08/03/2024 [facility] Comment on above: Ordered: 08/03/2024 Triiodothyronine (T3 ) Free [Mass/volume] in Serum or Plasma T3, free Lab Routine Hormone disorder Ordered: 08/03/2024 [facility] Comment on above: Ordered: 08/03/2024 Vitamin D 1,25 dihydroxy Vitamin D 1,25 dihydroxy Lab Routine Hormone disorder Ordered: 08/03/2024 [facility] Comment on above: Ordered: 08/03/2024 Immunizations Immunization Date Immunization Notes Care Provider [facility] 12-22-2023 influenza, seasonal, injectable, preservative free Elvie Aichholz ENVIRONMENTAL SYSTEMS COORDINATOR Work Phone: [facility] 12-22-2023 influenza virus vacc ine, unspecified formulation Elvie Aichholz ENVIRONMENTAL SYSTEMS COORDINATOR Work Phone: [facility] 10-29-2022 influenza, injectabl e, quadrivalent, preservative free Elvie Aichholz ENVIRONMENTAL SYSTEMS COORDINATOR Work Phone: [facility] 10-29-2022 influenza virus vacc ine, unspecified formulation Elvie Aichholz ENVIRONMENTAL SYSTEMS COORDINATOR Work Phone: [facility] Payers Date Payer Category Payer Self-pay 2023 Private Health Insurance [id number] 2023 Unknown [id number] 1983 Unknown [id number] 2.16.84 0.1.077077.3.579.2.593 1983 Unknown [id number] 2.16.84 0.1.424576.3.579.2.593 1983 Unknown [id number] 2.16.84 0.1.782915.3.579.2.593 1983 Unknown [id number] 2.16. 840.1.674110.3.579.2.196 1983 Unknown [id number] 2.16.8 40.1.557814.3.579.2.727 1983 Unknown [id number] 2.16.8 40.1.106752.3.579.2.727 1983 Unknown [id number] 2.16.8 40.1.386802.3.579.2.727 1983 Unknown [id number] 2.16.8 40.1.427284.3.579.2.1259 1983 Unknown [id number] 2.16.8 40.1.659690.3.579.2.1259 1983 Unknown [id number] 2.16.8 40.1.161913.3.579.2.1259 1983 Unknown [id number] 2.16.8 40.1.606964.3.579.2.1259 1983 Unknown [id number] 2.16.8 40.1.600118.3.579.2.1259 1983 Unknown [id number] 2.16.8 40.1.235157.3.579.2.125 1983 Unknown [id number] 2.16.8 40.1.317867.3.579.2.1259 1983 Unknown [id number] 2.16.84 0.1.217534.3.579.2.1259 1983 Unknown [id number] 2.16.84 0.1.681938.3.579.2.1258 1983 Unknown [id number] 2.16.84 0.1.366215.3.579.2.1258 1983 Unknown [id number] 2.16.84 0.1.864422.3.579.2.1258 1983 Unknown [id number] 2.16.84 0.1.277674.3.579.2.1258 1983 Unknown [id number] 2.16.84 0.1.517614.3.579.2.1258 1983 Unknown [id number] 2.16.84 0.1.267479.3.579.2.1258 1983 Unknown [id number] 2.16.84 0.1.195366.3.579.2.1258 1983 Unknown [id number] 2.16.84 0.1.436070.3.579.2.1258 1983 Unknown [id number] 2.16.84 0.1.949136.3.579.2.1258 1983 Unknown [id number] 2.16.84 0.1.066535.3.579.2.1258 1983 Unknown [id number] 2.16.84 0.1.167922.3.579.2.1258 1983 Unknown [id number] 2.16.84 0.1.204720.3.579.2.1258 1983 Unknown [id number] 2.16.84 0.1.181574.3.579.2.1258 1983 Unknown [id number] 2.16.84 0.1.966086.3.579.2.1258 1983 Unknown [id number] 2.16.84 0.1.643888.3.579.2.1258 1983 Unknown [id number] 2.16.84 0.1.349191.3.579.2.1258 1983 Unknown [id number] 2.16.84 0.1.769027.3.579.2.1258 1983 Unknown [id number] 2.16.84 0.1.629112.3.579.2.1258 1983 Unknown [id number] 2.16.84 0.1.925488.3.579.2.1258 1983 Unknown [id number] 2.16.84 0.1.269193.3.579.2.1258 1983 Unknown [id number] 2.16.84 0.1.239396.3.579.2.1258 1983 Unknown [id number] 2.16.84 0.1.042204.3.579.2.1258 1983 Unknown [id number] 2.16.84 0.1.595362.3.579.2.1258 1983 Unknown [id number] 2.16.84 0.1.236368.3.579.2.1258 1983 Unknown [id number] 2.16.84 0.1.437411.3.579.2.1258 1983 Unknown [id number] 2.16.84 0.1.582472.3.579.2.1258 1983 Unknown [id number] 2.16.84 0.1.064125.3.579.2.1258 1983 Unknown [id number] 2.16.84 0.1.757530.3.579.2.1258 1983 Unknown [id number] 2.16.84 0.1.357788.3.579.2.1258 1983 Unknown [id number] 2.16.84 0.1.270334.3.579.2.1258 1983 Unknown [id number] 2.16.84 0.1.549909.3.579.2.1258 1959 Unknown [id number] Unknown [id number] 2.16.8 40.1.564195.3.579.2.531 Unknown [id number] 2.16.8 40.1.198630.3.579.2.531 Social History Date Type Detail Facility Start: 04-06-2023 End: 08-31-2023 Sex Assigned At [facility] Start: 04-01-2023 End: 11-26-2023 Tobacco smoking status NHIS Never smoked tobacco [facility] Work Phone: Start: 04-01-2023 Tobacco use and exposure Smokeless tobacco non-user [facility] Start: 04-13-2023 End: 11-16-2024 Alcohol intake Lifetime non-drinker (finding) [facility] Start: 04-06-2023 End: 08-31-2023 History of Social function [facility] Within the last year , have you been afraid of your partner or ex-partner? No [facility] Do you belong to any clubs or organizations such as [employer] groups, [employer], [employer] or athletic groups, or school groups? Yes [...] Identifies as female gender (finding) [facility] Start: 1985 Sex Assigned At Female [facility] Tobacco smoking status No Smokin g Status Entered [facility] Sex Female (finding) [facility] Medical Equipment Procedure Code Equipment Code [...] Assessment Result Facility 01-25-2024 Functional Status No [facility] Clinical Notes 02-26-2023 to 11-16-2024 Prabhakar Cordova MD - 11/16/2024 11:00 AM EDTPausaravanan Silverio DO - 10/31/2024 3:15 PM EDTPausaravanan Silverio DO - 10/12/2024 3:45 PM EDTHSILVER PASCAL - 10/10/2024 2:00 PM EDTPatient Instructions Note Date & Type Note Facility 11-16-2024 History of Present illness Narrative Wilmer Navarro returns to the office today and [...] medically necessary to perform allergy skin testing today to differentiate if the patients symptoms are allergic in nature and devise a treatment plan. This is a separate procedure from the time spent on the EM encounter. As the patient has not taken any antihistamines within the past five days, we will proceed with skin testing today. Skin testing in the office today performed under direct physician supervision showed [...] in 1-2 months. documented in this encounter [facility] 10-31-2024 History of Present illness Narrative Images from the original note were not included. Wilmer Navarro 1985 Wilmer Navarro is a 38 y.o. female presents with chief complaint of 3 wk f/u (W/ ct) HPI: HPI patient has no changes with her hernia. It might be uncomfortable if she pushes against it or does something severely strenuous or does a crunch but otherwise it has not causing her significant pain. In general she has not having pain. She continues to eat and have bowel movements without difficulty. She did get the CT scan. She continues to lose weigh Even since her last visit and is very motivated to continue that. She is lost 52 lb since her start at 320 lb. SUBJECTIVE: MEDICATIONS: ALLERGIES Current Outpatient Medications Medication Instructions albuterol HFA 90 mcg/act inhaler 2 puffs, Inhalation, Every 6 hours PRN azelastine (Astelin) 0.1 % nasal spray 2 sprays, Each Nostril, 2 times daily, Use in each nostril as directed budesonide-formoterol (Symbicort) 160-4.5 MCG/ACT inhaler 2 puffs, [...] 25 mg, Oral, Every 8 hours PRN ipratropium (Atrovent) 0.06 % nasal spray 2 sprays, Each Nostril, 3 times daily levothyroxine (SYNTHROID, LEVOXYL) 112 mcg, Oral, Daily magnesium oxide (MAG-OX) 400 mg, Oral, Daily metoprolol succinate XL (TOPROL-XL) 50 mg, Daily montelukast (SINGULAIR) 10 mg, Oral, Nightly pantoprazole (PROTONIX) 40 mg, Oral, Daily before breakfast, Do not crush, chew, or split. Potassium 99 MG tablet Every 24 hours progesterone (PROMETRIUM) 100 mg, Oral, Daily triamcinolone (Nasacort) 55 MCG/ACT nasal inhaler 2 sprays, Daily Allergies Allergen Reactions Antihistamines, Diphenhydramine-Type Prednisone Diphenhydramine Hives, Itching, Rash and Unknown Latex Hives, Itching, Rash and Unknown PAST MEDICAL HISTORY: SOCIAL HISTORY SURGICAL HISTORY: Past Medical History: Diagnosis Date Anxiety Arthritis Asthma (HCC) Borderline abnormal thyroid function test COVID-19 virus detected Depression Aura's disease Morbid obesity with BMI of 50.0-59.9, adult ([facility]) 04/13/2023 Umbilical hernia Social History Tobacco Use Smoking status: Never Smokeless tobacco: Never Vaping Use Vaping status: Never Used Substance Use Topics Alcohol use: Never Drug use: Never Past Surgical History: Procedure Laterality Date GALLBLADDER SURGERY Laparoscopic HERNIA REPAIR Umbilical KNEE ARTHROPLASTY Right 02/21/2024 MTP MENISCECTOMY Right 02/28/2020 Dr Jose OTHER SURGICAL HISTORY 2009 Procedure:NUBAIN & PHENERGAN;Disease:ACUTE CHOLEYCYSTITIS TONSILLECTOMY 05/11/2007 and Adenoidectomy REVIEW OF SYMPTOMS: Review of Systems Respiratory: Negative for shortness of breath. Cardiovascular: Negative for chest pain. Gastrointestinal: Positive for abdominal pain. OBJECTIVE: Visit Vitals Smoking Status Never Physical Exam Constitutional: Appearance: Normal appearance. She is not ill-appearing. Cardiovascular: Rate and Rhythm: Regular rhythm. Abdominal: General: There is no distension. Tenderness: There is no abdominal tenderness. Comments: Unchanged periumbilical ventral hernia. ASSESSMENT AND PLAN: Assessment/Plan Diagnoses and all orders for this visit: Recurrent ventral hernia with incarceration Recurrent ventral/ umbilical hernia, in fact there are 2 defects the larger is 14 mm in diameter with a large incarceration of fat and another more cephalad small hernia. There maybe several other small Macanese cheese type defects based on CT scan. There is only fat incarceration. I had a discussion with the patient including showing her CT scan pictures which she quite enjoyed and appreciated. We discussed options. Hernia is definitely able to be repaired, I suggested timing of that after she is continued to lose weight since with BMI of 45 or higher there is a 3 fold higher risk of hernia recurrence and higher risk of infection. As she is minimally symptomatic best would be to wait until she is continued to improve her weight and decrease her risk. She is completely on board with that. She is very motivated to continue losing weight and does not want to do anything that might change her current regimen. She would like to see me again in 6 months and if she is worsening or having more problems I can see her earlier for sooner repair. documented in this encounter [facility] 10-19-2024 Radiology Diagnostic study note [place] [address] CT Scan Report Signed Patient: Wilmer Navarro MR#: [id number] : 1985 Acct:[id number] Age/Sex: 38 / F ADM Date: 5 Loc: CT Room: Type[facility] Attending Dr: Bernardo Silverio DO Copies to: Bernardo Silverio DO~ Ordering Provider: Bernardo Silverio DO Date of [...] glands appear unremarkable. Kidneysdemonstrate no stone or hydronephrosis. Abdominal aorta appears normal in caliber.[ GI: [...] mm. Impression dictated by: Mau Chou Jr., DGabrielOGabriel 10/19/2024 1:11 PM Dictation Location: [place] [address] Transcribed By: [facility] 10/19/24 1311 Dictated By: Mau Chou Jr, DO 10/19/24 1309 Signed By: 10/19/24 1311 [facility] 10-12-2024 History of Present illness Narrative Images from the original note were not included. Wilmer Navarro 1985 Wilmer Navarro is a 38 y.o. female presents with chief complaint of Consult (Ventral hernia) HPI: HPI patient says that she had 2 umbilical hernia repairs previously, she had a umbilical hernia repair she believes with mesh when she had her gallbladder out remotely and then she had a recurrent umbilical hernia repair with mesh with Dr. Beckman at [place] in 2011. She had no problems with the operation or infections. Over time she has noticed a bulge which seems to be getting bigger over time. As she has lost weight this has gotten more pronounced. She notices pain if she leans on it or if she does crunches or if she is having intercourse. She has not having any generalized abdominal pain. She has not having any nausea or vomiting. She has not having any acute incarceration. She lost weight from 326 lb down to 280. She is still on her weight loss journey. She has been more active and doing better glucose control. SUBJECTIVE: MEDICATIONS: ALLERGIES Current Outpatient Medications Medication Instructions albuterol HFA 90 mcg/act inhaler 2 puffs, Inhalation, Every 6 hours PRN azelastine (Astelin) 0.1 % nasal spray 2 sprays, Each Nostril, 2 times daily, Use in each nostril as directed budesonide-formoterol (Symbicort) 160-4.5 MCG/ACT inhaler 2 puffs, [...] 25 mg, Oral, Every 8 hours PRN ipratropium (Atrovent) 0.06 % nasal spray 2 sprays, Each Nostril, 3 times daily levothyroxine (SYNTHROID, LEVOXYL) 112 mcg, Oral, Daily magnesium oxide (MAG-OX) 400 mg, Oral, Daily metoprolol succinate XL (TOPROL-XL) 50 mg, Daily montelukast (SINGULAIR) 10 mg, Oral, Nightly pantoprazole (PROTONIX) 40 mg, Oral, Daily before breakfast, Do not crush, chew, or split. Potassium 99 MG tablet Every 24 hours progesterone (PROMETRIUM) 100 mg, Oral, Daily triamcinolone (Nasacort) 55 MCG/ACT nasal inhaler 2 sprays, Daily Allergies Allergen Reactions Antihistamines, Diphenhydramine-Type Prednisone Diphenhydramine Hives, Itching, Rash and Unknown Latex Hives, Itching, Rash and Unknown PAST MEDICAL HISTORY: SOCIAL HISTORY SURGICAL HISTORY: Past Medical History: Diagnosis Date Anxiety Arthritis Asthma ([facility]) Borderline abnormal thyroid function test COVID-19 virus detected Depression Aura's disease Morbid obesity with BMI of 50.0-59.9, adult ([facility]) 04/13/2023 Umbilical hernia Social History Tobacco Use [...] CHOLEYCYSTITIS TONSILLECTOMY 05/11/2007 and Adenoidectomy REVIEW OF SYMPTOMS: Review of Systems Constitutional: Negative for appetite change, fatigue and fever. HENT: Negative for trouble swallowing. Respiratory: Negative for cough and shortness of breath. Cardiovascular: Negative for chest pain. Gastrointestinal: Positive for abdominal pain. Genitourinary: Negative for hematuria. Musculoskeletal: Negative for back pain. Skin: Negative for wound. Neurological: Negative for seizures. OBJECTIVE: Visit Vitals Ht 5' 6 Wt 280 lb BMI 45.19 kg/m Smoking Status Never BSA 2.43 m Physical Exam Constitutional: Appearance: Normal appearance. HENT: Head: Atraumatic. Eyes: General: No scleral icterus. Cardiovascular: Rate and Rhythm: Regular rhythm. Pulmonary: Effort: No respiratory distress. Abdominal: General: There is no distension. Tenderness: There is no abdominal tenderness. Comments: Patient is a large bulge in her supraumbilical right of midline incarcerated hernia without tenderness on exam. This is at least 12 cm in diameter and the hernia sac, the defect is unable to be well examined Skin: Findings: No bruising. Neurological: Mental Status: She is alert. Gait: Gait normal. ASSESSMENT AND PLAN: Assessment/Plan Diagnoses and all orders for this visit: Recurrent ventral hernia - Ambulatory referral to General Surgery - CT abdomen pelvis wo IV contrast; Future Recurrent ventral hernia, large hernia sac incarcerated noted. I had a discussion with her regarding imaging for better evaluation, to help elucidate size of defect and number of defects. This will be a more complicated repair as she has already had failure of 2 hernia repairs possibly both with mesh. Additionally we did discuss elevated BMI as a risk factor for infection complications and recurrence which are both probably 3 times higher than standard. Definitely continue with weight loss strategy in the meantime to help reduce risk of problems around the time of surgery. I will see her back with results documented in this encounter [facility] 10-10-2024 History of Present illness Narrative Pt is still having increase BP 149/90s last night 130s-140s/90s Pt has been off of her betta eduarda for two weeks due to pharmacy syncing all her medications she just started it again yesterday. Pt would like to discuss getting a new referral for gen surgery for her hernia she had seen dr tenorio who told her she needed to loose 100lbs. Pt also does not feel comfortable going back to him. Images from the original note were not included. Wilmer Navarro is a 38 y.o. female presents with chief complaint of Palpitations HPI: Ventral hernia: becoming more painful, tender to touch, would like to see a new surgeon for evaluation, has lost weight Allergy testin11/16/24 Palpitations: started on b eduarda, sxs have improved, wonders if could stop this and try grapefruit extract instead Asthma: stable Depression/anxiety: is doing well on current meds and doses GERD: compliant with meds, minimal sxs SUBJECTIVE: MEDICATIONS: Current Outpatient Medications Medication Instructions albuterol HFA 90 mcg/act inhaler 2 puffs, Inhalation, Every 6 hours PRN azelastine (Astelin) 0.1 % nasal spray 2 sprays, Each Nostril, 2 times daily, Use in each nostril as directed budesonide-formoterol (Symbicort) 160-4.5 MCG/ACT inhaler 2 puffs, [...] 25 mg, Oral, Every 8 hours PRN ipratropium (Atrovent) 0.06 % nasal spray 2 sprays, Each Nostril, 3 times daily levothyroxine (SYNTHROID, LEVOXYL) 112 mcg, Oral, Daily magnesium oxide (MAG-OX) 400 mg, Oral, Daily metoprolol succinate XL (TOPROL-XL) 50 mg, Daily montelukast (SINGULAIR) 10 mg, Oral, Nightly pantoprazole (PROTONIX) 40 mg, Oral, Daily before breakfast, Do not crush, chew, or split. Potassium 99 MG tablet Every 24 hours progesterone (PROMETRIUM) 100 mg, Oral, Daily triamcinolone (Nasacort) 55 MCG/ACT nasal inhaler 2 sprays, Daily ALLERGIES: Allergies Allergen Reactions Antihistamines, Diphenhydramine-Type Prednisone Diphenhydramine Hives, Itching, Rash and Unknown Latex Hives, Itching, Rash and Unknown REVIEW OF SYMPTOMS: Review of Systems Constitutional: Negative for appetite change, chills and fever. HENT: Negative for congestion, ear pain and sore throat. Eyes: Negative for pain, discharge, redness and visual disturbance. Respiratory: Negative for cough, shortness of breath and wheezing. Cardiovascular: Negative for chest pain, palpitations and leg swelling. Gastrointestinal: Positive for abdominal pain. Negative for blood in stool, constipation, diarrhea, nausea and [...] Medical History: Diagnosis Date Anxiety Arthritis Asthma (HCC) Borderline abnormal thyroid function test COVID-19 virus detected Depression Aura's disease Morbid obesity with BMI of 50.0-59.9, adult ([facility]) 04/13/2023 Umbilical hernia Past Surgical [...] in her mother. OBJECTIVE: Visit Vitals BP 112/86 (BP Location: Right arm, Patient Position: Sitting, BP Cuff Size: Large adult) Pulse 83 Temp 98.1 F (Temporal) Resp 18 Wt 281 lb SpO2 99% BMI 45.35 kg/m Smoking Status Never BSA 2.43 m Physical Exam Vitals and nursing note [...] Normal breath sounds. No wheezing or rhonchi. Abdominal: General: Bowel sounds are normal. There is no distension. Palpations: Abdomen is soft. There is no mass. Tenderness: There is no abdominal tenderness (mild tenderness). Hernia: A hernia is present. Musculoskeletal: General: Normal range of [...] Items Addressed This Visit Anxiety and depression Current meds: wellbutrin and uses prn vistaril Relevant Medications buPROPion XL (Wellbutrin XL) 300 MG 24 hr tablet GERD (gastroesophageal reflux disease) Relevant Medications famotidine (Pepcid) 20 MG tablet pantoprazole (ProtoNix) 40 MG EC tablet Hypomagnesemia On magnesium daily Check labs yearly, and prn dose changes or changes in sxs Relevant Medications magnesium oxide (Mag-Ox) 400 (240 Mg) MG tablet Ventral hernia without obstruction or gangrene Relevant Orders Ambulatory referral to General Surgery Morbid (severe) obesity due to excess calories ([facility]) Discussed with patient their BMI (actual, verses recommended). We have also discussed lifestyle modifications: attempts to perform physical activity as chronic conditions allow, also to monitor dietary intake: increasing protein/fruits/veggies and lowering carb intake (unless contraindicated). Limit sodas, juices, and sugary drinks. Was at 326 in 10/29 Hypothyroid Current med: levothyroxine Check labs yearly, and prn changes in dose or changes in symptoms Had recent dose change in 09/29 Heart palpitations Saw [facility] on 09/15/24, started on b eduarda I have reviewed their notes Essential hypertension - Primary Please check blood pressure daily and record DASH diet Limit caffeine Take medication as directed Contact office if chest pain, pressure, dizziness, shortness of breath, swelling legs Recommend slow position changes Current meds: b eduarda Other Visit Diagnoses Moderate persistent asthma without complication ([facility]) Relevant Medications budesonide-formoterol (Symbicort) 160-4.5 MCG/ACT inhaler montelukast (Singulair) 10 MG tablet Associated Problem(s): Hypomagnesemia On magnesium daily Check labs yearly, and prn dose changes or changes in sxs Associated Problem(s): Anxiety and depression Current meds: wellbutrin and uses prn vistaril Associated Problem(s): Hypothyroid Current med: levothyroxine Check labs yearly, and prn changes in dose or changes in symptoms Had recent dose change in 09/29 Associated Problem(s): Morbid (severe) obesity due to excess calories ([facility]) Discussed with patient their BMI (actual, verses recommended). We have also discussed lifestyle modifications: attempts to perform physical activity as chronic conditions allow, also to monitor dietary intake: increasing protein/fruits/veggies and lowering carb intake (unless contraindicated). Limit sodas, juices, and sugary drinks. Was at 326 in 10/29 Associated Problem(s): Heart palpitations Saw [facility] on 09/15/24, started on b eduarda I have reviewed their notes Associated Problem(s): Essential hypertension Please check blood pressure daily and record DASH diet Limit caffeine Take medication as directed Contact office if chest pain, pressure, dizziness, shortness of breath, swelling legs Recommend slow position changes Current meds: b eduarda documented in this encounter [facility] 09-15-2024 Note [place] [facility] Note Reason for cardiology consult: Palpitation, V. tach, shortness of breath Chief Complaint: Shortness of breath and palpitation HPI: Wilmer Navarro is a 38 y.o. female without prior cardiac history. 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 Social History She reports that she [...] kg (287 lb) SpO2 98% BMI 46.32 kg/m??? Smoking Status Never BSA 2.46 m??? Physical Examination: GENERAL: alert and oriented x3, [...] above 60, BUN 11.9, glucose 89, calcium 8.9, magnesium 1.7 05/10/2024 White blood count 8.5, hemoglobin [...] Also the patient has history of asthma. (more content not included)... [facility] 09-11-2024 History of Present illness Narrative Reason for Appointment: Patient ID: Wilmer Navarro is a 38 y.o. female who presents for No chief complaint on file. Patient presents today via telephone call for a telehealth appointment. Patients Phone #: [phone] (mobile) Date: 09/11/2024 Time: 10:41 AM of [...] 04/01/2023 Body mass index (BMI) 45.0-49.9, adult ([facility]) 04/13/2023 Ventral hernia without obstruction or gangrene 08/31/2023 Mild persistent asthma without complication (HCC) 02/08/2024 Morbid (severe) obesity due to excess calories ([facility]) 02/08/2024 Encounter for screening mammogram for malignant neoplasm of breast 02/08/2024 Status post right knee replacement 02/22/2024 Difficulty walking 02/22/2024 Hypothyroid 05/09/2024 Other constipation 05/09/2024 Heart palpitations 06/20/2024 Ventricular arrhythmia 08/03/2024 Environmental and seasonal allergies 08/08/2024 Resolved Ambulatory Problems Diagnosis Date Noted Internal derangement of right knee 04/01/2023 History of knee problem 03/27/2020 Borderline abnormal thyroid function test 04/01/2023 Intermittent asthma without complication ([facility]) 04/01/2023 Moderate persistent asthma without complication ([facility]) 04/01/2023 Umbilical hernia 04/01/2023 Acute medial meniscal tear 04/01/2023 Abnormal TSH 05/18/2023 Non-recurrent acute suppurative otitis media of left ear without spontaneous rupture of tympanic membrane 05/18/2023 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/29/2023 Cellulitis 08/31/2023 Past Medical History: Diagnosis Date Anxiety Arthritis Asthma ([facility]) COVID-19 virus detected Depression Aura's disease Morbid obesity with BMI of 50.0-59.9, adult ([facility]) 04/13/2023 Family History Problem Relation Name Age [...] Vitals: Estimated body mass index is 47.45 kg/m as calculated from the following: Height as of 06/22/24: 5' 6 . Weight as of 09/07/24: 294 lb. BP: No LMP recorded. Assessment/Plan No diagnosis found. Today's telehealth visit consisted of spending 5-7 minutes talking to patient on the phone. Patient reports that she does not like the patch and that it will not stay on. She has purchased an OTC menopause support and discussed the ingredient list and is appropriate and would like to trial this before starting a new Estrogen supplement. Documented by Cherry Amezcua NP on behalf of: Javier Morales DO documented in this encounter [facility] 09-07-2024 History of Present illness Narrative Wilmer Navarro is a very pleasant 38 y.o. [...] round. 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 She feels pollen is a trigger for [...] should problems arise. documented in this encounter [facility] 08-08-2024 History of Present illness Narrative Associated Problem(s): Environmental and seasonal allergies Sxs not controlled w antihistamines and nasal steroids Used to take allergy injections in the past Will refer to human resources operations manager for evaluation [facility] referral [facility] Images from the original [...] thyroid function test COVID-19 virus detected Depression ([facility]/HCC) 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[facility]) Morbid obesity with BMI of 50.0-59.9, adult ([facility]) 04/13/2023 Umbilical hernia Past Surgical [...] injections in the past Will refer to human resources operations manager for evaluation Relevant Orders Ambulatory referral to [...] refer to cardiology documented in this encounter [facility] 08-08-2024 Instructions Elvie Greer NP - 08/08/2024 2:20 PM EDT I will place referral to human resources operations manager: dr Prabhakar Almonte with [facility] in [facility], their office should call if no call in 10 days call me documented in this encounter [facility] 08-03-2024 History of Present illness Narrative Reason [...] of knee, right 04/01/2023 Anxiety and depression ([facility]) 04/01/2023 Elevated glucose 04/01/2023 GERD (gastroesophageal reflux disease) 04/01/2023 Hair loss 04/01/2023 Hypomagnesemia 04/01/2023 Leg cramps 04/01/2023 Liver function abnormality 04/01/2023 Painful lumpy right breast 04/01/2023 Psoriasis 04/01/2023 Acute postoperative pain of right knee 04/01/2023 Body mass index (BMI) 45.0-49.9, adult ([facility]) 04/13/2023 Ventral hernia without obstruction or gangrene 08/31/2023 Mild persistent asthma without complication ([facility]) 02/08/2024 Morbid (severe) obesity due to excess calories ([facility]) 02/08/2024 Encounter for screening mammogram for malignant neoplasm of breast 02/08/2024 Status post right knee replacement 02/22/2024 Difficulty walking 02/22/2024 Hypothyroid ([facility]) 05/09/2024 Other constipation 05/09/2024 Heart palpitations 06/20/2024 Resolved Ambulatory Problems Diagnosis Date Noted Internal derangement of right knee 04/01/2023 History of knee problem 03/27/2020 Borderline abnormal thyroid function test 04/01/2023 Intermittent asthma without complication ([facility]) 04/01/2023 Moderate persistent asthma without complication ([facility]/HCC) 04/01/2023 Umbilical hernia 04/01/2023 Acute medial meniscal tear 04/01/2023 Abnormal TSH 05/18/2023 Non-recurrent acute suppurative otitis media of left ear without spontaneous rupture of tympanic membrane 05/18/2023 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) 06/29/2023 Cellulitis 08/31/2023 Past Medical History: Diagnosis Date Anxiety Arthritis Asthma COVID-19 virus detected Depression ([facility]) 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[facility]) Morbid obesity with BMI of 50.0-59.9, adult ([facility]) 04/13/2023 HISTORY PAST MEDICAL HISTORY SOCIAL HISTORY Past Medical History: Diagnosis Date Anxiety Arthritis Asthma Borderline abnormal thyroid function test COVID-19 virus detected Depression ([facility]) 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[facility]) Morbid obesity with BMI of 50.0-59.9, adult ([facility]) 04/13/2023 Umbilical hernia Social History Tobacco Use [...] nursing note reviewed. Exam conducted with a front end web developer present. Vitals: Estimated body mass index is [...] needed, but provider with reach out to [facility] and see if all labs are needed or just certain labs based on patient previous complaints. Did discuss medication with patient but she is currently taking Wellbutrin and Vistaril through PCP. Patient is aware that provider will reach out to discuss plan of care once symptoms are reviewed with [facility]. Patient to return to clinic for routine annual appointment and as needed. Documented by Fadia Santiago LPN on behalf of: Isa Machado PA-C documented in this encounter [facility] 06-22-2024 History of Present illness Narrative Post [...] exercise, weight management and fall precautions reviewed. [facility] antibiotic prophylaxis for dental or invasive work were reviewed. Numerous questions were answered. Follow-up in February at year anniversary, for repeat xray and exam, sooner if concerned. The patient is discharged in stable condition. documented in this encounter [facility] 06-20-2024 History of Present illness Narrative Associated [...] thyroid function test COVID-19 virus detected Depression ([facility]) 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CMS/HCC) Morbid obesity with BMI of 50.0-59.9, adult (CMS/HCC) 04/13/2023 Umbilical hernia Past Surgical History: Procedure [...] 326 in 10/29 Heart palpitations - Primary Check labs: basic [...] med: pantoprazole, famotidine documented in this encounter [facility] 06-20-2024 Instructions Elvie Greer NP - 06/20/2024 2:40 PM EDT Check labs and holter documented in this encounter [facility] 05-30-2024 History of Present illness Narrative Reason for Appointment: Patient ID: Wilmer Navarro is a 38 y.o. female who presents for [facility] Patient presents today for Annual [...] of knee, right 04/01/2023 Anxiety and depression ([facility]) 04/01/2023 Elevated glucose 04/01/2023 GERD (gastroesophageal reflux disease) 04/01/2023 Hair loss 04/01/2023 Hypomagnesemia 04/01/2023 Leg cramps 04/01/2023 Liver function abnormality 04/01/2023 Painful lumpy right breast 04/01/2023 Psoriasis ([facility]) 04/01/2023 Acute postoperative pain of right knee 04/01/2023 Body mass index (BMI) 45.0-49.9, adult ([facility]) 04/13/2023 Ventral hernia without obstruction or gangrene 08/31/2023 Mild persistent asthma without complication ([facility]) 02/08/2024 Morbid (severe) obesity due to excess calories ([facility]) 02/08/2024 Encounter for screening mammogram for malignant neoplasm of breast 02/08/2024 Status post right knee replacement 02/22/2024 Difficulty walking 02/22/2024 Hypothyroid ([facility]) 05/09/2024 Other constipation 05/09/2024 Resolved Ambulatory Problems Diagnosis Date Noted Internal derangement of right knee 04/01/2023 History of knee problem 03/27/2020 Borderline abnormal thyroid function test 04/01/2023 Intermittent asthma without complication ([facility]) 04/01/2023 Moderate persistent asthma without complication ([facility]) 04/01/2023 Umbilical hernia 04/01/2023 Acute medial meniscal tear 04/01/2023 Abnormal TSH 05/18/2023 Non-recurrent acute suppurative otitis media of left ear without spontaneous rupture of tympanic membrane 05/18/2023 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) 06/29/2023 Cellulitis 08/31/2023 Past Medical History: Diagnosis Date Arthritis COVID-19 virus detected Depression ([facility]) 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[facility]) Morbid obesity with BMI of 50.0-59.9, adult ([facility]) 04/13/2023 HISTORY PAST MEDICAL HISTORY SOCIAL HISTORY Past Medical History: Diagnosis Date Arthritis Borderline abnormal thyroid function test COVID-19 virus detected Depression ([facility]) 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[facility]) Morbid obesity with BMI of 50.0-59.9, adult ([facility]) 04/13/2023 Umbilical hernia Social History Tobacco Use [...] nursing note reviewed. Exam conducted with a front end web developer present. Vitals: Estimated body mass index is 48.55 kg/m as calculated from the following: Height as of 3/4/25: 5' 6 . Weight as of this [...] Javier Morales DO documented in this encounter [facility] 05-10-2024 History of Present illness Narrative Associated Problem(s): Hypomagnesemia Takes PPI, recommend periodic monitoring documented in this encounter [facility] 05-10-2024 History of Present illness Narrative Images [...] to be instructed in home exercise program. 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 Date: documented in this encounter [facility] 05-09-2024 History of Present illness Narrative Associated [...] thyroid function test COVID-19 virus detected Depression ([facility]) 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[facility]) Morbid obesity with BMI of 50.0-59.9, adult ([facility]) 04/13/2023 Umbilical hernia Past Surgical [...] (CMS/HCC) Mild persistent asthma without complication (CMS/HCC) - Primary Symbicort for maintenance, signulair, as well as albuterol prn Relevant Orders CBC and differential Morbid (severe) obesity due to excess calories ([facility]) Discussed with patient their BMI (actual, verses [...] Associated Problem(s): Mild persistent asthma without complication ([facility]) Symbicort for maintenance, signulair, as well as albuterol prn documented in this encounter [facility] 05-09-2024 Instructions Elvie Greer NP - 05/09/2024 [...] talk with andrew documented in this encounter [facility] 05-08-2024 History of Present illness Narrative Images [...] to be instructed in home exercise program. Senior Living Goals: To be met in 10 weeks [...] sign below. Date: documented in this encounter [facility] 05-03-2024 History of Present illness Narrative Images [...] 54 minutes Time In: 1345 Time Out: [id number] History: Underwent surgery for right TKA 02/20/25. [...] to be instructed in home exercise program. Senior Living Goals: To be met in 10 weeks [...] sign below. Date: documented in this encounter [facility] 05-01-2024 History of Present illness Narrative Images [...] to be instructed in home exercise program. Senior Living Goals: To be met in 10 weeks [...] sign below. Date: documented in this encounter [facility] 04-24-2024 History of Present illness Narrative Physical [...] to be instructed in home exercise program. Senior Living Goals: To be met in 10 weeks [...] sign below. Date: documented in this encounter [facility] 04-10-2024 History of Present illness Narrative Images [...] to be instructed in home exercise program. Senior Living Goals: To be met in 10 weeks [...] sign below. Date: documented in this encounter [facility] 04-03-2024 History of Present illness Narrative Images [...] to be instructed in home exercise program. 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 Date: documented in this encounter [facility] 03-23-2024 History of Present illness Narrative Post [...] three months for repeat x-ray and exam. [facility] antibiotic prophylaxis for dental or invasive work were reviewed. Numerous questions were answered. The patient is discharged in stable condition. documented in this encounter [facility] 03-13-2024 History of Present illness Narrative Physical [...] out: 11:20 am Total time: 20 minutes 89832 gait training x 20 minutes Precautions: WBAT [...] Assessment & Plan Pt making steady gains. [place] removed on 03/13/24. Assessment Impairments: abnormal gait, [...] AD with supervision, step to gait pattern. 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 documented in this encounter [facility] 03-10-2024 History of Present illness Narrative Physical [...] out: 1:30 pm Total time: 30 minutes 33907 TherEx x 20 minutes 60901 gait training x 10 minutes Precautions: WBAT [...] ambulated approx 150' x 2 with slow roes. Fair knee flexion during swing phase. Tinetti [...] & Plan Pt making steady gains. Shaun[place] to be removed on 03/13/24. Pt will [...] AD with supervision, step to gait pattern. 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 documented in this encounter [facility] 03-06-2024 History of Present illness Narrative Physical [...] out: 12:38 pm Total time: 38 minutes 74651 TherEx x 30 minutes 53978 gait training x 10 minutes Precautions: WBAT Right LE; Right TKA protocol; Recent left TKA Pain Management: The patient is complaining of pain located in the Righ knee and thigh region. Pain rating 4/10. The pain is improved by ice and medication 1 every 6 hours of [place]. The pain is aggravated by activity. 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 Assessment Impairments: abnormal gait, abnormal or restricted [...] AD with supervision, step to gait pattern. Senior Living Goals Goal 1 : Patient will demonstrate [...] icing and elevating. documented in this encounter [facility] 03-02-2024 History of Present illness Narrative Physical [...] out: 2:00 pm Total time: 40 minutes 37676 TherEx x 30 minutes 28806 gait training x 10 minutes Precautions: WBAT Right LE; Right TKA protocol; Recent left TKA Pain Management: The patient is complaining of pain located in the Righ knee and thigh region. Pain rating 4/10. The pain is improved by ice and medication 1 every 6 hours of [place]. The pain is aggravated by activity. The [...] AD with supervision, step to gait pattern. Senior Living Goals Goal 1 : Patient will demonstrate [...] icing and elevating. documented in this encounter [facility] 02-28-2024 History of Present illness Narrative Physical [...] out: 10:37 am Total time: 38 minutes 83473 TherEx x 30 minutes 11791 gait training x 8 minutes Precautions: WBAT Right LE; Right TKA protocol; Recent left TKA Pain Management: The patient is complaining of pain located in the Righ knee and thigh region. Pain rating 4/10. The pain is improved by ice and medication 1-2 every 4 hours of [place]. The pain is aggravated by activity. The [...] AD with supervision, step to gait pattern. 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 documented in this encounter [facility] 02-24-2024 History of Present illness Narrative Physical [...] out: 11:00 am Total time: 30 minutes 08554 TherEx x 15 minutes 94192 gait training x 15 minutes Precautions: WBAT Right LE; Right TKA protocol; Recent left TKA Pain Management: The patient is complaining of pain located in the Righ knee and thigh region. Pain rating 4/10. The pain is improved by ice and medication 1 every 4 hours of [place]. The pain is aggravated by activity. The [...] time: Heels apart = 0. Gait score: /12. Total Score = Balance + Gait 02/02. [...] AD with supervision, step to gait pattern. 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 documented in this encounter [facility] 02-23-2024 Note Progress Note-Physic barbra Patient: WILMER [...] when meets criteria ( To home ). [facility] Comment on above: Result Comment: Elec [...] list: All Problems Hypothyroid / SNOMED CT 69732410 / Confirmed Depression / SNOMED CT 65425093 / Confirmed Resolved: Syncope / SNOMED CT 179032317 Resolved: GERD - Gastro-esophageal reflux disease / SNOMED CT 1842490669 Resolved: Asthma / SNOMED CT 970295407 Histories Procedure history: History of hernia repair (2770898012). History of hernia repair (9469845526). Cholecystectomy (75854851). Social History Social & Psychosocial Habits Alcohol 01/25/2024 Risk Assessment: Denies Alcohol Use Substance Abuse 01/25/2024 Risk Assessment: Denies Substance Abuse Tobacco 01/25/2024 Risk Assessment: Denies Tobacco Use . Physical Examination Airway: Mallampati classification: II (soft palate, fauces, uvula visible). Respiratory: adequate air exchange. Cardiovascular: Regular rhythm. Plan [place] [employer]esthesi[employer] (ASA) physical status classification: Class IV. Anesthetic Preoperative Plan: Anesthesia General. [facility] Comment on above: Result Comment: Elec tronically Signed By: Paul Gupta Jr, DO\.br\Date and Time Signed: 02/23/24 09:49 EST 02-22-2024 History of Present illness Narrative Physical Therapy Physical Therapy Evaluation Patient Name: Wilemr Navarro Today's Date: 02/22/2024 Subjective Current Problem: [...] out: 11:15 am Total time: 45 minutes 12360 PT Eval x 20 minutes 15035 TherEx x 15 minutes 86577 gait training x 10 minutes Precautions: WBAT [...] AD with supervision, step to gait pattern. 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 Plan Planned [...] to achieve PLOF. documented in this encounter [facility] 02-21-2024 Hospital Discharge instructions Patient Education 02/21/2024 [...] as possible. If the spirometer includes a population health coach indicator, use this to guide you [...] provider. Document Revised: 05/13/2020 Document Reviewed: 05/13/2020 [employer] (now [employer] Patient Education 2023 [employer]. 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 It is therefore advised not to drive until after your first office visit following surgery FOLLOW-UP OFFICE VISIT: __ Chan Khan, DO [facility] [address] [place] [address] Reviewed: 06-13 Follow Up Care 01/13/2024 16:25:51 With:GUILLERMO Villarreal Address: [address] [place], [place] [id number] Business (1) When:03/23/2024 15:00:00 Comments:Keep scheduled appointment [facility] 02-21-2024 Note Patient Education - Text [...] possible. ??? If the spirometer includes a population health coach indicator, use this to guide you [...] provider. Document Revised: 05/13/2020 Document Reviewed: 05/13/2020 [employer] Patient Education ? 2023 [employer]. [place], [place] [facility] DISCHARGE INSTRUCTIONS TOTAL KNEE ARTHROPLASTY INCISION CARE: Mepilex dressing can get wet with showers. Please remove 10 days after surgery per instruction sheet. If shaunna present, please coordinate removal 21 days after surgery with office (more content not included)... 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 It is therefore advised not to drive until after your first office visit following surgery FOLLOW-UP OFFICE VISIT: __ Chan Khan, DO [facility] [address] [place] [address] Reviewed: 06-13 [facility] 02-08-2024 History of Present illness Narrative Associated Problem(s): Psoriasis ([facility]) Needs refill of triamcinolone 0.1% ointment, also saw Rheumatology, considering treatment in the future documented in this encounter [facility] 02-08-2024 History of Present illness Narrative [...] thyroid function test COVID-19 virus detected Depression ([facility]) 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[facility]) Morbid obesity with BMI of 50.0-59.9, adult ([facility]) 04/13/2023 Umbilical hernia Past Surgical History: Procedure Laterality Date GALLBLADDER SURGERY Laparoscopic HERNIA REPAIR Umbilical MENISCECTOMY Right 02/28/2020 Dr Gracia OTHER SURGICAL HISTORY 2009 Procedure:NUBAIN & PHENERGAN;Disease:ACUTE [...] changes in doses of meds Associated Problem(s): Uara's thyroiditis (CMS/HCC) Currently taking levo at 75mcg [...] shot as well documented in this encounter [facility] 02-08-2024 Instructions Elvie Greer NP - 02/08/2024 8:40 AM EST Continue with weight loss journey you are doing great!!! No dose changes in meds No labs due at this time documented in this encounter [facility] 01-13-2024 History of Present illness Narrative Images [...] of months ago with a provider in [place]. She was instructed on weight loss. She [...] thyroid function test COVID-19 virus detected Depression ([facility]) 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[facility]) Morbid obesity with BMI of 50.0-59.9, adult ([facility]) 04/13/2023 Umbilical hernia PAST SURGICAL [...] is aware that results cannot be guaranteed. [facility] antibiotic prophylaxis with dental or invasive surgical [...] 9:34 PM EST documented in this encounter [facility] 11-09-2023 History of Present illness Narrative Associated [...] thyroid function test COVID-19 virus detected Depression ([facility]) 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[facility]) Morbid obesity with BMI of 50.0-59.9, adult ([facility]) 04/13/2023 Umbilical hernia Past Surgical [...] for evaluation as well Anxiety and depression ([facility]) Doing well on current meds Relevant Medications buPROPion XL (Wellbutrin XL) 300 MG 24 hr tablet GERD (gastroesophageal reflux disease) Relevant Medications famotidine (Pepcid) 20 MG tablet pantoprazole (Protonix) 40 MG EC tablet Moderate persistent asthma without complication (CMS/HCC) Relevant Medications budesonide-formoterol (Symbicort) 160-4.5 MCG/ACT inhaler montelukast (Singulair) 10 MG tablet Psoriasis ([facility]) Will send to Rheumatology for evaluation for psoriatic arthritis Relevant Orders Ambulatory referral to Rheumatology Morbid obesity with BMI of 50.0-59.9, adult (CMS/HCC) Doing well Aura's thyroiditis (CMS/HCC) - Primary Bump up dose thyroid to 75mcg Recheck labs in 8 weeks Relevant Medications levothyroxine (Synthroid) 75 MCG tablet Other Relevant Orders TSH T4, free documented in this encounter [facility] 04-22-2023 History of Present illness Narrative Images [...] Oral montelukast (SINGULAIR) 10 mg, Oral, Nightly [place]-3 Fatty Acids (Fish Oil) 1000 MG capsule [...] new symptoms develop for requiring urgent evaluation. 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 They need it verified. You wrote a quanity of 15 days but the directions say 1 tablet PO for 10 days [facility] 04-14-2023 Miscellaneous Notes jeannie from [employer] calling about pt's traMADol (Ultram) 50 MG tablet. They need it verified. You wrote a quanity of 15 days but the directions say 1 tablet PO for 10 days documented in this encounter [facility] 02-26-2023 Evaluation note Encounter Date Diagnosis Assessment [...] PCP if no improvement in 2-3 days. [email or web address] Other Evaluation + Plan note Future Appointments Appointment Date:02/21/2024 11:15:00 AM Scheduled Provider: Location:[facility] Appointment Type:Surgery FT [facility] Evaluation note* Diagnosis Chronic pain of right knee documented in this encounter [facility] HealthcareEvaluation [facility]* Diagnosis Primary osteoarthritis of right knee- Primary Right knee pain, unspecified chronicity documented in this encounter [facility] HealthcareEvaluation noteNo assessment information [facility]: Evaluation [facility]* Diagnosis Onset Date Resolution Status Cellulitis of arm, left acut e [facility] Work Phone: Evaluation note* Diagnosis Anxiety and [...] laterality- Primary Moderate persistent asthma without complication ([facility]) Ventral hernia without obstruction or gangrene Unspecified ventral hernia without mention of obstruction or gangrene Gastroesophageal reflux disease, unspecified whether esophagitis present Morbid obesity with BMI of 50.0-59.9, adult ([facility]) 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) Chronic lymphocytic thyroiditis Anxiety and depression ([facility]) Gastroesophageal reflux disease, unspecified whether esophagitis present- Primary 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) Chronic lymphocytic thyroiditis Moderate persistent asthma without complication ([facility]) Morbid obesity with BMI of 50.0-59.9, adult ([facility]) Arthritis of knee, right 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)- Primary Chronic lymphocytic thyroiditis Morbid obesity with BMI of 50.0-59.9, adult ([facility]) Psoriasis ([facility]) Other psoriasis Anxiety and depression ([facility]) Gastroesophageal reflux disease, unspecified whether esophagitis present Moderate persistent asthma without complication ([facility]) Arthritis of knee, right Anxiety and depression ([facility]) 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) Chronic lymphocytic thyroiditis documented in this encounter [facility] HealthcareEvaluation note* Diagnosis Anxiety and depression ([facility]/HCC)- Primary Elevated glucose Other abnormal glucose Hypomagnesemia Disorders of magnesium metabolism Gastroesophageal reflux disease, unspecified whether esophagitis present Morbid obesity with BMI of 50.0-59.9, adult ([facility]) Moderate persistent asthma without complication ([facility]) Chronic pain of right knee Anxiety and depression ([facility])- Primary Abnormal TSH Chronic pain of right knee Non-recurrent acute suppurative otitis media of left ear without spontaneous rupture of tympanic membrane 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)- Primary Chronic lymphocytic thyroiditis Anxiety and depression ([facility]) Morbid obesity with BMI of 50.0-59.9, adult ([facility]) Arthritis of knee, right Cellulitis of lower extremity, unspecified laterality- Primary Moderate persistent asthma without complication ([facility]) Ventral hernia without obstruction or gangrene Unspecified ventral hernia without mention of obstruction or gangrene Gastroesophageal reflux disease, unspecified whether esophagitis present Morbid obesity with BMI of 50.0-59.9, adult ([facility]) 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) Chronic lymphocytic thyroiditis Anxiety and depression ([facility]) Gastroesophageal reflux disease, unspecified whether esophagitis present- Primary 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) Chronic lymphocytic thyroiditis Moderate persistent asthma without complication ([facility]) Morbid obesity with BMI of 50.0-59.9, adult ([facility]) Arthritis of knee, right 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)- Primary Chronic lymphocytic thyroiditis Morbid obesity with BMI of 50.0-59.9, adult ([facility]) Psoriasis ([facility]) Other psoriasis Anxiety and depression ([facility]) Gastroesophageal reflux disease, unspecified whether esophagitis present Moderate persistent asthma without complication ([facility]) Arthritis of knee, right Pre-op testing- Primary Unspecified pre-operative examination documented in this encounter [facility]* Diagnosis Anxiety and depression ([facility])- Primary Elevated glucose Other abnormal glucose Hypomagnesemia Disorders of magnesium metabolism Gastroesophageal reflux disease, unspecified whether esophagitis present Morbid obesity with BMI of 50.0-59.9, adult ([facility]) Moderate persistent asthma without complication ([facility]) Chronic pain of right knee Anxiety and depression ([facility])- Primary Abnormal TSH Chronic pain of right knee Non-recurrent acute suppurative otitis media of left ear without spontaneous rupture of tympanic membrane 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)- Primary Chronic lymphocytic thyroiditis Anxiety and depression ([facility]) Morbid obesity with BMI of 50.0-59.9, adult ([facility]) Arthritis of knee, right Cellulitis of lower extremity, unspecified laterality- Primary Moderate persistent asthma without complication ([facility]) Ventral hernia without obstruction or gangrene Unspecified ventral hernia without mention of obstruction or gangrene Gastroesophageal reflux disease, unspecified whether esophagitis present Morbid obesity with BMI of 50.0-59.9, adult ([facility]) 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) Chronic lymphocytic thyroiditis Anxiety and depression ([facility]) Gastroesophageal reflux disease, unspecified whether esophagitis present- Primary 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) Chronic lymphocytic thyroiditis Moderate persistent asthma without complication ([facility]) Morbid obesity with BMI of 50.0-59.9, adult ([facility]) Arthritis of knee, right 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)- Primary Chronic lymphocytic thyroiditis Morbid [...] Morbid obesity with BMI of 50.0-59.9, adult ([facility]) Aura's thyroiditis (CMS/HCC) Chronic lymphocytic thyroiditis Morbid obesity due to excess calories (CMS/HCC) Moderate persistent asthma without complication (CMS/HCC) Encounter for screening mammogram for malignant neoplasm of breast Arthritis of knee, right Psoriasis ([facility])- Primary Other psoriasis documented in this encounter [facility] HealthcareEvaluation note* Diagnosis Anxiety and depression (CMS/HCC)- Primary Elevated glucose Other abnormal glucose Hypomagnesemia Disorders of magnesium metabolism Gastroesophageal reflux disease, unspecified whether esophagitis present Morbid obesity with BMI of 50.0-59.9, adult ([facility]) Moderate persistent asthma without complication (CMS/HCC) Chronic pain of right knee Anxiety and depression (CMS/HCC)- Primary Abnormal TSH Chronic pain of right knee Non-recurrent acute suppurative otitis media of left ear without spontaneous rupture of tympanic membrane Aura's thyroiditis ([facility])- Primary Chronic lymphocytic thyroiditis Anxiety and depression ([facility]) Morbid obesity with BMI of 50.0-59.9, adult ([facility]) Arthritis of knee, right Cellulitis of lower extremity, unspecified laterality- Primary Moderate persistent asthma without complication ([facility]) Ventral hernia without obstruction or gangrene Unspecified ventral hernia without mention of obstruction or gangrene Gastroesophageal reflux disease, unspecified whether esophagitis present Morbid obesity with BMI of 50.0-59.9, adult ([facility]) Aura's thyroiditis (CMS/HCC) Chronic lymphocytic thyroiditis Anxiety and depression ([facility]) Gastroesophageal reflux disease, unspecified whether esophagitis present- Primary Aura's thyroiditis (CMS/HCC) Chronic lymphocytic thyroiditis Moderate persistent asthma without complication (CMS/HCC) Morbid obesity with BMI of 50.0-59.9, adult ([facility]) Arthritis of knee, right Aura's thyroiditis (CMS/[facility])- Primary Chronic lymphocytic thyroiditis Morbid obesity with BMI of 50.0-59.9, adult ([facility]) Psoriasis ([facility]) Other psoriasis Anxiety and depression ([facility]) Gastroesophageal reflux disease, unspecified whether esophagitis present Moderate persistent asthma without complication (CMS/HCC) Arthritis of knee, right Anxiety and depression ([facility])- Primary Mild persistent asthma without complication (CMS/HCC) Gastroesophageal reflux disease, unspecified whether esophagitis present Morbid obesity with BMI of 50.0-59.9, adult ([facility]) 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) Chronic lymphocytic thyroiditis Morbid obesity due to excess calories (CMS/[facility]) Moderate persistent asthma without complication ([facility]) Encounter for screening mammogram for malignant neoplasm of breast Arthritis of knee, right documented in this encounter [facility]* Diagnosis Anxiety and depression ([facility])- Primary Elevated glucose Other abnormal glucose Hypomagnesemia Disorders of magnesium metabolism Gastroesophageal reflux disease, unspecified whether esophagitis present Morbid obesity with BMI of 50.0-59.9, adult ([facility]) Moderate persistent asthma without complication ([facility]) Chronic pain of right knee Anxiety and depression ([facility])- Primary Abnormal TSH Chronic pain of right knee Non-recurrent acute suppurative otitis media of left ear without spontaneous rupture of tympanic membrane 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)- Primary Chronic lymphocytic thyroiditis Anxiety and depression ([facility]) Morbid obesity with BMI of 50.0-59.9, adult ([facility]) Arthritis of knee, right Cellulitis of lower extremity, unspecified laterality- Primary Moderate persistent asthma without complication ([facility]) Ventral hernia without obstruction or gangrene Unspecified ventral hernia without mention of obstruction or gangrene Gastroesophageal reflux disease, unspecified whether esophagitis present Morbid obesity with BMI of 50.0-59.9, adult ([facility]) 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) Chronic lymphocytic thyroiditis Anxiety and depression ([facility]) Gastroesophageal reflux disease, unspecified whether esophagitis present- Primary 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) Chronic lymphocytic thyroiditis Moderate persistent asthma without complication ([facility]) Morbid obesity with BMI of 50.0-59.9, adult ([facility]) Arthritis of knee, right 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)- Primary Chronic lymphocytic thyroiditis Morbid [...] Morbid obesity with BMI of 50.0-59.9, adult ([facility]) Aura's thyroiditis (CMS/HCC) Chronic lymphocytic thyroiditis Morbid obesity due to excess calories (CMS/HCC) Moderate persistent asthma without complication (CMS/HCC) Encounter for screening mammogram for malignant neoplasm of breast Arthritis of knee, right Psoriasis (CMS/HCC)- Primary Other psoriasis Primary osteoarthritis of right knee- Primary documented in this encounter [facility] HealthcareEvaluation note* Diagnosis Anxiety and depression (CMS/HCC)- Primary Elevated glucose Other abnormal glucose Hypomagnesemia Disorders of magnesium metabolism Gastroesophageal reflux disease, unspecified whether esophagitis present Morbid obesity with BMI of 50.0-59.9, adult ([facility]) Moderate persistent asthma without complication (CMS/HCC) Chronic pain of right knee Anxiety and depression (CMS/HCC)- Primary Abnormal TSH Chronic pain of right knee Non-recurrent acute suppurative otitis media of left ear without spontaneous rupture of tympanic membrane Aura's thyroiditis (CMS/HCC)- Primary Chronic lymphocytic thyroiditis Anxiety and depression (CMS/HCC) Morbid obesity with BMI of 50.0-59.9, adult ([facility]) Arthritis of knee, right Cellulitis of lower extremity, unspecified laterality- Primary Moderate persistent asthma without complication (CMS/HCC) Ventral hernia without obstruction or gangrene Unspecified ventral hernia without mention of obstruction or gangrene Gastroesophageal reflux disease, unspecified whether esophagitis present Morbid obesity with BMI of 50.0-59.9, adult ([facility]) Aura's thyroiditis (CMS/HCC) Chronic lymphocytic thyroiditis Anxiety and depression ([facility]) Gastroesophageal reflux disease, unspecified whether esophagitis present- Primary Aura's thyroiditis (CMS/HCC) Chronic lymphocytic thyroiditis Moderate persistent asthma without complication (CMS/HCC) Morbid obesity with BMI of 50.0-59.9, adult ([facility]) Arthritis of knee, right Aura's thyroiditis (CMS/HCC)- Primary Chronic lymphocytic thyroiditis Morbid obesity with BMI of 50.0-59.9, adult ([facility]) Psoriasis ([facility]) Other psoriasis Anxiety and depression ([facility]) Gastroesophageal reflux disease, unspecified whether esophagitis present Moderate persistent asthma without complication ([facility]) Arthritis of knee, right Anxiety and depression ([facility])- Primary Mild persistent asthma without complication ([facility]) Gastroesophageal reflux disease, unspecified whether esophagitis present Morbid obesity with BMI of 50.0-59.9, adult ([facility]) 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 Chronic lymphocytic thyroiditis Morbid obesity due to excess calories ([facility] Moderate persistent asthma without complication ([facility]) Encounter for screening mammogram for malignant neoplasm of breast Arthritis of knee, right Psoriasis ([facility])- Primary Other psoriasis Arthritis of knee, right- Primary Acute postoperative pain of right knee Status post right knee replacement Difficulty walking Difficulty in walking documented in this encounter [facility]* Diagnosis 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)- Primary Chronic lymphocytic thyroiditis Morbid obesity with BMI of 50.0-59.9, adult ([facility]) Psoriasis ([facility]) Other psoriasis Anxiety and depression ([facility]) Gastroesophageal reflux disease, unspecified whether esophagitis present Moderate persistent asthma without complication ([facility]) Arthritis of knee, right documented in this encounter [facility]* Diagnosis Gastroesophageal reflux disease, unspecified whether esophagitis present documented in this encounter [facility]* Diagnosis Anxiety and depression ([facility])- Primary Elevated glucose Other abnormal glucose Hypomagnesemia Disorders of magnesium metabolism Gastroesophageal reflux disease, unspecified whether esophagitis present Morbid obesity with BMI of 50.0-59.9, adult ([facility]) Moderate persistent asthma without complication ([facility]) Chronic pain of right knee Anxiety and depression ([facility])- Primary Abnormal TSH Chronic pain of right knee Non-recurrent acute suppurative otitis media of left ear without spontaneous rupture of tympanic membrane 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)- Primary Chronic lymphocytic thyroiditis Anxiety and depression ([facility]) Morbid obesity with BMI of 50.0-59.9, adult ([facility]) Arthritis of knee, right Cellulitis of lower extremity, unspecified laterality- Primary Moderate persistent asthma without complication ([facility]) Ventral hernia without obstruction or gangrene Unspecified ventral hernia without mention of obstruction or gangrene Gastroesophageal reflux disease, unspecified whether esophagitis present Morbid obesity with BMI of 50.0-59.9, adult ([facility]) 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) Chronic lymphocytic thyroiditis Anxiety and depression ([facility]) Gastroesophageal reflux disease, unspecified whether esophagitis present- Primary 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) Chronic lymphocytic thyroiditis Moderate persistent asthma without complication ([facility]) Morbid obesity with BMI of 50.0-59.9, adult ([facility]) Arthritis of knee, right 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)- Primary Chronic lymphocytic thyroiditis Morbid obesity with BMI of 50.0-59.9, adult ([facility]) Psoriasis ([facility]) Other psoriasis Anxiety and depression ([facility] [facility] [place] Gastroesophageal reflux disease, unspecified whether esophagitis present Moderate persistent asthma without complication ([facility] [place]) Arthritis of knee, right Anxiety and depression ([facility] [place])- Primary Mild persistent asthma without complication ([facility] [place]) Gastroesophageal reflux disease, unspecified whether esophagitis present Morbid obesity with BMI of 50.0-59.9, adult ([facility] [place]) 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[place]) Chronic lymphocytic thyroiditis Morbid obesity due to excess calories ([facility] [place]) Moderate persistent asthma without complication ([facility] [place]) Encounter for screening mammogram for malignant neoplasm of breast Arthritis of knee, right Psoriasis ([facility] [place])- Primary Other psoriasis Arthritis of knee, right- Primary Acute postoperative pain of right knee Status post right knee replacement Difficulty walking Difficulty in walking documented in this encounter [facility] HealthcareEvaluation note* Diagnosis Anxiety and depression ([facility] [place])- Primary Elevated glucose Other abnormal glucose Hypomagnesemia Disorders of magnesium metabolism Gastroesophageal reflux disease, unspecified whether esophagitis present Morbid obesity with BMI of 50.0-59.9, adult ([facility] [place]) Moderate persistent asthma without complication ([facility] [place] Chronic pain of right knee Anxiety and depression ([facility] [place])- Primary Abnormal TSH Chronic pain of right knee Non-recurrent acute suppurative otitis media of left ear without spontaneous rupture of tympanic membrane 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[place])- Primary Chronic lymphocytic thyroiditis Anxiety and depression ([facility] [place]) Morbid obesity with BMI of 50.0-59.9, adult ([facility] [place]) Arthritis of knee, right Cellulitis of lower extremity, unspecified laterality- Primary Moderate persistent asthma without complication ([facility] [place]) Ventral hernia without obstruction or gangrene Unspecified ventral hernia without mention of obstruction or gangrene Gastroesophageal reflux disease, unspecified whether esophagitis present Morbid obesity with BMI of 50.0-59.9, adult ([facility] [place]) 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[place]) Chronic lymphocytic thyroiditis Anxiety and depression ([facility] [place]) Gastroesophageal reflux disease, unspecified whether esophagitis present- Primary 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) Chronic lymphocytic thyroiditis Moderate persistent asthma without complication ([facility] [place]) Morbid obesity with BMI of 50.0-59.9, adult ([facility] [place]) Arthritis of knee, right 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[place])- Primary Chronic lymphocytic thyroiditis Morbid obesity with BMI of 50.0-59.9, adult ([facility] [place]) Psoriasis ([facility] [place]) Other psoriasis Anxiety and depression ([facility] [place]) Gastroesophageal reflux disease, unspecified whether esophagitis present Moderate persistent asthma without complication ([facility] [place]) Arthritis of knee, right Anxiety and depression ([facility] [place])- Primary Mild persistent asthma without complication ([facility] [place]) Gastroesophageal reflux disease, unspecified whether esophagitis present Morbid obesity with BMI of 50.0-59.9, adult ([facility] [place] 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[place] Chronic lymphocytic thyroiditis Morbid obesity due to excess calories ([facility] [place] Moderate persistent asthma without complication ([facility] [place]) Encounter for screening mammogram for malignant neoplasm of breast Arthritis of knee, right Psoriasis ([facility] [place])- Primary Other psoriasis Arthritis of knee, right- Primary Acute postoperative pain of right knee Status post right knee replacement Difficulty walking Difficulty in walking documented in this encounter [facility] note* Diagnosis Anxiety and depression ([facility] [place])- Primary Elevated glucose Other abnormal glucose Hypomagnesemia Disorders of magnesium metabolism Gastroesophageal reflux disease, unspecified whether esophagitis present Morbid obesity with BMI of 50.0-59.9, adult ([facility] [place]) Moderate persistent asthma without complication ([facility] [place]) Chronic pain of right knee Anxiety and depression ([facility] [place])- Primary Abnormal TSH Chronic pain of right knee Non-recurrent acute suppurative otitis media of left ear without spontaneous rupture of tympanic membrane 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[place])- Primary Chronic lymphocytic thyroiditis Anxiety and depression ([facility] [place]) Morbid obesity with BMI of 50.0-59.9, adult ([facility] [place]) Arthritis of knee, right Cellulitis of lower extremity, unspecified laterality- Primary Moderate persistent asthma without complication ([facility] [place]) Ventral hernia without obstruction or gangrene Unspecified ventral hernia without mention of obstruction or gangrene Gastroesophageal reflux disease, unspecified whether esophagitis present Morbid obesity with BMI of 50.0-59.9, adult ([facility] [place]) 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[place]) Chronic lymphocytic thyroiditis Anxiety and depression ([facility] [place]) Gastroesophageal reflux disease, unspecified whether esophagitis present- Primary 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[place]) Chronic lymphocytic thyroiditis Moderate persistent asthma without complication ([facility] [place]) Morbid obesity with BMI of 50.0-59.9, adult ([facility] [place]) Arthritis of knee, right 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[place])- Primary Chronic lymphocytic thyroiditis Morbid obesity with BMI of 50.0-59.9, adult ([facility] [place]) Psoriasis ([facility] [place]) Other psoriasis Anxiety and depression ([facility] [place]) Gastroesophageal reflux disease, unspecified whether esophagitis present Moderate persistent asthma without complication ([facility] [place]) Arthritis of knee, right Anxiety and depression ([facility] [place])- Primary Mild persistent asthma without complication ([facility] [place]) Gastroesophageal reflux disease, unspecified whether esophagitis present Morbid obesity with BMI of 50.0-59.9, adult ([facility] [place]) 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[place] Chronic lymphocytic thyroiditis Morbid obesity due to excess calories ([facility] [place] Moderate persistent asthma without complication ([facility] [place]) Encounter for screening mammogram for malignant neoplasm of breast Arthritis of knee, right Psoriasis ([facility] [place])- Primary Other psoriasis Arthritis of knee, right- Primary Acute postoperative pain of right knee Status post right knee replacement Difficulty walking Difficulty in walking documented in this encounter [facility] note* Diagnosis Anxiety and depression ([facility] [place])- Primary Elevated glucose Other abnormal glucose Hypomagnesemia Disorders of magnesium metabolism Gastroesophageal reflux disease, unspecified whether esophagitis present Morbid obesity with BMI of 50.0-59.9, adult ([facility] [place]) Moderate persistent asthma without complication ([facility] [place]) Chronic pain of right knee Anxiety and depression ([facility] [place])- Primary Abnormal TSH Chronic pain of right knee Non-recurrent acute suppurative otitis media of left ear without spontaneous rupture of tympanic membrane 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)- Primary Chronic lymphocytic thyroiditis Anxiety and depression ([facility] [place]) Morbid obesity with BMI of 50.0-59.9, adult ([facility] [place]) Arthritis of knee, right Cellulitis of lower extremity, unspecified laterality- Primary Moderate persistent asthma without complication ([facility] [place]) Ventral hernia without obstruction or gangrene Unspecified ventral hernia without mention of obstruction or gangrene Gastroesophageal reflux disease, unspecified whether esophagitis present Morbid obesity with BMI of 50.0-59.9, adult ([facility] [place] 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[place]) Chronic lymphocytic thyroiditis Anxiety and depression ([facility] [place]) Gastroesophageal reflux disease, unspecified whether esophagitis present- Primary 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[place]) Chronic lymphocytic thyroiditis Moderate persistent asthma without complication ([facility] [place]) Morbid obesity with BMI of 50.0-59.9, adult ([facility] [place]) Arthritis of knee, right 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[place])- Primary Chronic lymphocytic thyroiditis Morbid obesity with BMI of 50.0-59.9, adult ([facility] [place]) Psoriasis ([facility] [place]) Other psoriasis Anxiety and depression ([facility] [place]) Gastroesophageal reflux disease, unspecified whether esophagitis present Moderate persistent asthma without complication ([facility] [place]) Arthritis of knee, right Anxiety and depression ([facility] [place])- Primary Mild persistent asthma without complication ([facility] [place]) Gastroesophageal reflux disease, unspecified whether esophagitis present Morbid obesity with BMI of 50.0-59.9, adult ([facility] [place]) 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[place]) Chronic lymphocytic thyroiditis Morbid obesity due to excess calories ([facility] [place]) Moderate persistent asthma without complication ([facility] [place]) Encounter for screening mammogram for malignant neoplasm of breast Arthritis of knee, right Psoriasis ([facility] [place])- Primary Other psoriasis Arthritis of knee, right- Primary Acute postoperative pain of right knee Status post right knee replacement Difficulty walking Difficulty in walking documented in this encounter [facility]* Diagnosis Anxiety and depression ([facility] [place])- Primary Elevated glucose Other abnormal glucose Hypomagnesemia Disorders of magnesium metabolism Gastroesophageal reflux disease, unspecified whether esophagitis present Morbid obesity with BMI of 50.0-59.9, adult ([facility] [place]) Moderate persistent asthma without complication ([facility] [place]) Chronic pain of right knee Anxiety and depression ([facility] [place])- Primary Abnormal TSH Chronic pain of right knee Non-recurrent acute suppurative otitis media of left ear without spontaneous rupture of tympanic membrane 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)- Primary Chronic lymphocytic thyroiditis Anxiety and depression ([facility] [place]) Morbid obesity with BMI of 50.0-59.9, adult ([facility] [place]) Arthritis of knee, right Cellulitis of lower extremity, unspecified laterality- Primary Moderate persistent asthma without complication ([facility] [place]) Ventral hernia without obstruction or gangrene Unspecified ventral hernia without mention of obstruction or gangrene Gastroesophageal reflux disease, unspecified whether esophagitis present Morbid obesity with BMI of 50.0-59.9, adult ([facility] [place]) 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[place]) Chronic lymphocytic thyroiditis Anxiety and depression ([facility] [place]) Gastroesophageal reflux disease, unspecified whether esophagitis present- Primary 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[place]) Chronic lymphocytic thyroiditis Moderate persistent asthma without complication ([facility] [place]) Morbid obesity with BMI of 50.0-59.9, adult ([facility] [place]) Arthritis of knee, right 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[place])- Primary Chronic lymphocytic thyroiditis Morbid obesity with BMI of 50.0-59.9, adult ([facility] [place]) Psoriasis ([facility] [place]) Other psoriasis Anxiety and depression ([facility] [place]) Gastroesophageal reflux disease, unspecified whether esophagitis present Moderate persistent asthma without complication ([facility] [place]) Arthritis of knee, right Anxiety and depression ([facility] [place])- Primary Mild persistent asthma without complication ([facility] [place]) Gastroesophageal reflux disease, unspecified whether esophagitis present Morbid obesity with BMI of 50.0-59.9, adult ([facility] [place]) 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[place]) Chronic lymphocytic thyroiditis Morbid obesity due to excess calories ([facility] [place]) Moderate persistent asthma without complication ([facility] [place]) Encounter for screening mammogram for malignant neoplasm of breast Arthritis of knee, right Psoriasis ([facility] [place])- Primary Other psoriasis Arthritis of knee, right- Primary Acute postoperative pain of right knee Status post right knee replacement Difficulty walking Difficulty in walking documented in this encounter [facility]* Diagnosis Anxiety and depression ([facility] [place])- Primary Elevated glucose Other abnormal glucose Hypomagnesemia Disorders of magnesium metabolism Gastroesophageal reflux disease, unspecified whether esophagitis present Morbid obesity with BMI of 50.0-59.9, adult ([facility] [place]) Moderate persistent asthma without complication ([facility] [place] Chronic pain of right knee Anxiety and depression ([facility] [place])- Primary Abnormal TSH Chronic pain of right knee Non-recurrent acute suppurative otitis media of left ear without spontaneous rupture of tympanic membrane 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[place])- Primary Chronic lymphocytic thyroiditis Anxiety and depression ([facility] [place]) Morbid obesity with BMI of 50.0-59.9, adult ([facility] [place]) Arthritis of knee, right Cellulitis of lower extremity, unspecified laterality- Primary Moderate persistent asthma without complication ([facility] [place]) Ventral hernia without obstruction or gangrene Unspecified ventral hernia without mention of obstruction or gangrene Gastroesophageal reflux disease, unspecified whether esophagitis present Morbid obesity with BMI of 50.0-59.9, adult ([facility] [place]) 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[place]) Chronic lymphocytic thyroiditis Anxiety and depression ([facility] [place]) Gastroesophageal reflux disease, unspecified whether esophagitis present- Primary 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[place]) Chronic lymphocytic thyroiditis Moderate persistent asthma without complication ([facility] [place]) Morbid obesity with BMI of 50.0-59.9, adult ([facility] [place]) Arthritis of knee, right 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[place])- Primary Chronic lymphocytic thyroiditis Morbid obesity with BMI of 50.0-59.9, adult ([facility] [place]) Psoriasis ([facility] [place]) Other psoriasis Anxiety and depression ([facility] [place]) Gastroesophageal reflux disease, unspecified whether esophagitis present Moderate persistent asthma without complication ([facility] [place]) Arthritis of knee, right Anxiety and depression ([facility] [place])- Primary Mild persistent asthma without complication ([facility] [place]) Gastroesophageal reflux disease, unspecified whether esophagitis present Morbid obesity with BMI of 50.0-59.9, adult ([facility] [place]) 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[place]) Chronic lymphocytic thyroiditis Morbid obesity due to excess calories ([facility] [place]) Moderate persistent asthma without complication ([facility] [place]) Encounter for screening mammogram for malignant neoplasm of breast Arthritis of knee, right Psoriasis ([facility] [place])- Primary Other psoriasis Arthritis of knee, right- Primary Acute postoperative pain of right knee Status post right knee replacement Difficulty walking Difficulty in walking documented in this encounter [facility]* Diagnosis Anxiety and depression ([facility] [place] Primary Elevated glucose Other abnormal glucose Hypomagnesemia Disorders of magnesium metabolism Gastroesophageal reflux disease, unspecified whether esophagitis present Morbid obesity with BMI of 50.0-59.9, adult ([facility] [place]) Moderate persistent asthma without complication (CMS/HCC) Chronic pain of right knee Anxiety and depression (CMS/HCC)- Primary Abnormal TSH Chronic pain of right knee Non-recurrent acute suppurative otitis media of left ear without spontaneous rupture of tympanic membrane Aura's thyroiditis (CMS/HCC)- Primary Chronic lymphocytic thyroiditis Anxiety and depression ([facility]) Morbid obesity with BMI of 50.0-59.9, adult ([facility] [place]) Arthritis of knee, right Cellulitis of lower extremity, unspecified laterality- Primary Moderate persistent asthma without complication ([facility]) Ventral hernia without obstruction or gangrene Unspecified ventral hernia without mention of obstruction or gangrene Gastroesophageal reflux disease, unspecified whether esophagitis present Morbid obesity with BMI of 50.0-59.9, adult ([facility] [place]) 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[place]) Chronic lymphocytic thyroiditis Anxiety and depression ([facility] [place]) Gastroesophageal reflux disease, unspecified whether esophagitis present- Primary 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) Chronic lymphocytic thyroiditis Moderate persistent asthma without complication ([facility]) Morbid obesity with BMI of 50.0-59.9, adult ([facility]) Arthritis of knee, right 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)- Primary Chronic lymphocytic thyroiditis Morbid obesity with BMI of 50.0-59.9, adult ([facility]) Psoriasis ([facility]) Other psoriasis Anxiety and depression ([facility]) Gastroesophageal reflux disease, unspecified whether esophagitis present Moderate persistent asthma without complication (CMS/HCC) Arthritis of knee, right Anxiety and depression ([facility]/HCC)- Primary Mild persistent asthma without complication ([facility]) Gastroesophageal reflux disease, unspecified whether esophagitis present Morbid obesity with BMI of 50.0-59.9, adult ([facility]) 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 Chronic lymphocytic thyroiditis Morbid obesity due to excess calories ([facility]) Moderate persistent asthma without complication ([facility]) Encounter for screening mammogram for malignant neoplasm of breast Arthritis of knee, right Psoriasis (CMS/HCC)- Primary Other psoriasis Aftercare following right knee joint replacement surgery- Primary documented in this encounter [facility] HealthcareEvaluation note* Diagnosis Anxiety and depression (CMS/HCC)- Primary Elevated glucose Other abnormal glucose Hypomagnesemia Disorders of magnesium metabolism Gastroesophageal reflux disease, unspecified whether esophagitis present Morbid obesity with BMI of 50.0-59.9, adult ([facility]) Moderate persistent asthma without complication (CMS/HCC) Chronic pain of right knee Anxiety and depression (CMS/HCC)- Primary Abnormal TSH Chronic pain of right knee Non-recurrent acute suppurative otitis media of left ear without spontaneous rupture of tympanic membrane Aura's thyroiditis (CMS/HCC)- Primary Chronic lymphocytic thyroiditis Anxiety and depression (CMS/HCC) Morbid obesity with BMI of 50.0-59.9, adult ([facility]) Arthritis of knee, right Cellulitis of lower extremity, unspecified laterality- Primary Moderate persistent asthma without complication (CMS/HCC) Ventral hernia without obstruction or gangrene Unspecified ventral hernia without mention of obstruction or gangrene Gastroesophageal reflux disease, unspecified whether esophagitis present Morbid obesity with BMI of 50.0-59.9, adult ([facility]) Aura's thyroiditis (CMS/HCC) Chronic lymphocytic thyroiditis Anxiety and depression ([facility]) Gastroesophageal reflux disease, unspecified whether esophagitis present- Primary Aura's thyroiditis (CMS/HCC) Chronic lymphocytic thyroiditis Moderate persistent asthma without complication (CMS/HCC) Morbid obesity with BMI of 50.0-59.9, adult ([facility]) Arthritis of knee, right Aura's thyroiditis (CMS/HCC)- Primary Chronic lymphocytic thyroiditis Morbid obesity with BMI of 50.0-59.9, adult ([facility]) Psoriasis (CMS/HCC) Other psoriasis Anxiety and depression (CMS/HCC) Gastroesophageal reflux disease, unspecified whether esophagitis present Moderate persistent asthma without complication (CMS/HCC) Arthritis of knee, right Anxiety and depression (CMS/HCC)- Primary Mild persistent asthma without complication (CMS/HCC) Gastroesophageal reflux disease, unspecified whether esophagitis present Morbid obesity with BMI of 50.0-59.9, adult ([facility]) Aura's thyroiditis (CMS/HCC) Chronic lymphocytic thyroiditis Morbid obesity due to excess calories (CMS/HCC) Moderate persistent asthma without complication ([facility]) Encounter for screening mammogram for malignant neoplasm of breast Arthritis of knee, right Psoriasis (CMS/HCC)- Primary Other psoriasis Arthritis of knee, right- Primary Acute postoperative pain of right knee Status post right knee replacement documented in this encounter [facility] HealthcareEvaluation note* Diagnosis Anxiety and depression ([facility]/HCC)- Primary Elevated glucose Other abnormal glucose Hypomagnesemia Disorders of magnesium metabolism Gastroesophageal reflux disease, unspecified whether esophagitis present Morbid obesity with BMI of 50.0-59.9, adult ([facility]) Moderate persistent asthma without complication ([facility]) Chronic pain of right knee Anxiety and depression (CMS/HCC)- Primary Abnormal TSH Chronic pain of right knee Non-recurrent acute suppurative otitis media of left ear without spontaneous rupture of tympanic membrane Aura's thyroiditis ([facility])- Primary Chronic lymphocytic thyroiditis Anxiety and depression ([facility]) Morbid obesity with BMI of 50.0-59.9, adult ([facility]) Arthritis of knee, right Cellulitis of lower extremity, unspecified laterality- Primary Moderate persistent asthma without complication ([facility]) Ventral hernia without obstruction or gangrene Unspecified ventral hernia without mention of obstruction or gangrene Gastroesophageal reflux disease, unspecified whether esophagitis present Morbid obesity with BMI of 50.0-59.9, adult ([facility]) 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) Chronic lymphocytic thyroiditis Anxiety and depression ([facility]) Gastroesophageal reflux disease, unspecified whether esophagitis present- Primary 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) Chronic lymphocytic thyroiditis Moderate persistent asthma without complication ([facility]) Morbid obesity with BMI of 50.0-59.9, adult ([facility]) Arthritis of knee, right 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)- Primary Chronic lymphocytic thyroiditis Morbid obesity with BMI of 50.0-59.9, adult ([facility]) Psoriasis ([facility]) Other psoriasis Anxiety and depression ([facility]) Gastroesophageal reflux disease, unspecified whether esophagitis present Moderate persistent asthma without complication (CMS/HCC) Arthritis of knee, right Anxiety and depression ([facility]/HCC)- Primary Mild persistent asthma without complication ([facility]) Gastroesophageal reflux disease, unspecified whether esophagitis present Morbid obesity with BMI of 50.0-59.9, adult ([facility]) 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) Chronic lymphocytic thyroiditis Morbid obesity due to excess calories ([facility] Moderate persistent asthma without complication ([facility]) Encounter for screening mammogram for malignant neoplasm of breast Arthritis of knee, right Psoriasis ([facility])- Primary Other psoriasis Arthritis of knee, right- Primary Acute postoperative pain of right knee Status post right knee replacement Difficulty walking Difficulty in walking documented in this encounter [facility] HealthcareEvaluation note* Diagnosis Anxiety and depression ([facility])- Primary Elevated glucose Other abnormal glucose Hypomagnesemia Disorders of magnesium metabolism Gastroesophageal reflux disease, unspecified whether esophagitis present Morbid obesity with BMI of 50.0-59.9, adult ([facility]) Moderate persistent asthma without complication ([facility]) Chronic pain of right knee Anxiety and depression ([facility])- Primary Abnormal TSH Chronic pain of right knee Non-recurrent acute suppurative otitis media of left ear without spontaneous rupture of tympanic membrane 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)- Primary Chronic lymphocytic thyroiditis Anxiety and depression ([facility]) Morbid obesity with BMI of 50.0-59.9, adult ([facility]) Arthritis of knee, right Cellulitis of lower extremity, unspecified laterality- Primary Moderate persistent asthma without complication ([facility]) Ventral hernia without obstruction or gangrene Unspecified ventral hernia without mention of obstruction or gangrene Gastroesophageal reflux disease, unspecified whether esophagitis present Morbid obesity with BMI of 50.0-59.9, adult ([facility]) 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) Chronic lymphocytic thyroiditis Anxiety and depression ([facility]) Gastroesophageal reflux disease, unspecified whether esophagitis present- Primary 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) Chronic lymphocytic thyroiditis Moderate persistent asthma without complication ([facility]) Morbid obesity with BMI of 50.0-59.9, adult ([facility]) Arthritis of knee, right 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)- Primary Chronic lymphocytic thyroiditis Morbid obesity with BMI of 50.0-59.9, adult ([facility]) Psoriasis ([facility]) Other psoriasis Anxiety and depression ([facility]) Gastroesophageal reflux disease, unspecified whether esophagitis present Moderate persistent asthma without complication ([facility]) Arthritis of knee, right Anxiety and depression ([facility])- Primary Mild persistent asthma without complication ([facility]) Gastroesophageal reflux disease, unspecified whether esophagitis present Morbid obesity with BMI of 50.0-59.9, adult ([facility]) Aura's thyroiditis (CMS/HCC) Chronic lymphocytic [...] Difficulty in walking documented in this encounter [facility] HealthcareEvaluation note* Diagnosis Anxiety and depression (CMS/HCC)- Primary Elevated glucose Other abnormal glucose Hypomagnesemia Disorders of magnesium metabolism Gastroesophageal reflux disease, unspecified whether esophagitis present Morbid obesity with BMI of 50.0-59.9, adult ([facility]) Moderate persistent asthma without complication (CMS/HCC) Chronic pain of right knee Anxiety and depression (CMS/HCC)- Primary Abnormal TSH Chronic pain of right knee Non-recurrent acute suppurative otitis media of left ear without spontaneous rupture of tympanic membrane Aura's thyroiditis ([facility])- Primary Chronic lymphocytic thyroiditis Anxiety and depression ([facility]) Morbid obesity with BMI of 50.0-59.9, adult ([facility]) Arthritis of knee, right Cellulitis of lower extremity, unspecified laterality- Primary Moderate persistent asthma without complication (CMS/HCC) Ventral hernia without obstruction or gangrene Unspecified ventral hernia without mention of obstruction or gangrene Gastroesophageal reflux disease, unspecified whether esophagitis present Morbid obesity with BMI of 50.0-59.9, adult ([facility]) 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) Chronic lymphocytic thyroiditis Anxiety and depression ([facility]) Gastroesophageal reflux disease, unspecified whether esophagitis present- Primary Aura's thyroiditis (CMS/HCC) Chronic lymphocytic thyroiditis Moderate persistent asthma without complication (CMS/HCC) Morbid obesity with BMI of 50.0-59.9, adult ([facility]) Arthritis of knee, right Aura's thyroiditis (CMS/HCC)- Primary Chronic lymphocytic thyroiditis Morbid obesity with BMI of 50.0-59.9, adult ([facility]) Psoriasis ([facility]) Other psoriasis Anxiety and depression ([facility]) Gastroesophageal reflux disease, unspecified whether [...] and depression (CMS/HCC) documented in this encounter [facility] HealthcareEvaluation note* Diagnosis Anxiety and depression [...] Morbid obesity with BMI of 50.0-59.9, adult ([facility]) Psoriasis (CMS/HCC) Other psoriasis Anxiety and depression (CMS/HCC) Gastroesophageal reflux disease, unspecified whether esophagitis present Moderate persistent asthma without complication (CMS/HCC) Arthritis of knee, right Anxiety and depression ([facility]/HCC)- Primary Mild persistent asthma without complication (CMS/HCC) Gastroesophageal reflux disease, unspecified whether esophagitis present Morbid obesity with BMI of 50.0-59.9, adult ([facility]) 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) Chronic lymphocytic thyroiditis Morbid obesity due to excess calories ([facility]) Moderate persistent asthma without complication ([facility]) Encounter for screening mammogram for malignant neoplasm of breast Arthritis of knee, right Psoriasis ([facility])- Primary Other psoriasis Arthritis of knee, right- Primary Acute postoperative pain of right knee Status post right knee replacement documented in this encounter [facility] HealthcareEvaluation note* Diagnosis Anxiety and depression ([facility])- Primary Elevated glucose Other abnormal glucose Hypomagnesemia Disorders of magnesium metabolism Gastroesophageal reflux disease, unspecified whether esophagitis present Morbid obesity with BMI of 50.0-59.9, adult ([facility]) Moderate persistent asthma without complication ([facility]) Chronic pain of right knee Anxiety and depression ([facility])- Primary Abnormal TSH Chronic pain of right knee Non-recurrent acute suppurative otitis media of left ear without spontaneous rupture of tympanic membrane 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)- Primary Chronic lymphocytic thyroiditis Anxiety and depression ([facility]) Morbid obesity with BMI of 50.0-59.9, adult ([facility]) Arthritis of knee, right Cellulitis of lower extremity, unspecified laterality- Primary Moderate persistent asthma without complication ([facility]) Ventral hernia without obstruction or gangrene Unspecified ventral hernia without mention of obstruction or gangrene Gastroesophageal reflux disease, unspecified whether esophagitis present Morbid obesity with BMI of 50.0-59.9, adult ([facility]) 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) Chronic lymphocytic thyroiditis Anxiety and depression ([facility]) Gastroesophageal reflux disease, unspecified whether esophagitis present- Primary 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) Chronic lymphocytic thyroiditis Moderate persistent asthma without complication ([facility]) Morbid obesity with BMI of 50.0-59.9, adult ([facility]) Arthritis of knee, right 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)- Primary Chronic lymphocytic thyroiditis Morbid obesity with BMI of 50.0-59.9, adult ([facility]) Psoriasis (CMS/HCC) Other psoriasis Anxiety and depression ([facility]) Gastroesophageal reflux disease, unspecified whether esophagitis present Moderate persistent asthma without complication (CMS/HCC) Arthritis of knee, right Anxiety and depression ([facility]/HCC)- Primary Mild persistent asthma without complication (CMS/HCC) Gastroesophageal reflux disease, unspecified whether esophagitis present Morbid obesity with BMI of 50.0-59.9, adult ([facility]) 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) Chronic lymphocytic thyroiditis Morbid obesity due to excess calories ([facility]) Moderate persistent asthma without complication ([facility]) Encounter for screening mammogram for malignant neoplasm of breast Arthritis of knee, right Psoriasis ([facility])- Primary Other psoriasis Acute postoperative pain of right knee- Primary Status post right knee replacement Difficulty walking Difficulty in walking Aftercare following right knee joint replacement surgery documented in this encounter [facility] HealthcareEvaluation note* Diagnosis Anxiety and depression ([facility])- Primary Elevated glucose Other abnormal glucose Hypomagnesemia Disorders of magnesium metabolism Gastroesophageal reflux disease, unspecified whether esophagitis present Morbid obesity with BMI of 50.0-59.9, adult ([facility]) Moderate persistent asthma without complication ([facility]) Chronic pain of right knee Anxiety and depression ([facility])- Primary Abnormal TSH Chronic pain of right knee Non-recurrent acute suppurative otitis media of left ear without spontaneous rupture of tympanic membrane 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)- Primary Chronic lymphocytic thyroiditis Anxiety and depression ([facility]) Morbid obesity with BMI of 50.0-59.9, adult ([facility]) Arthritis of knee, right Cellulitis of lower extremity, unspecified laterality- Primary Moderate persistent asthma without complication ([facility]) Ventral hernia without obstruction or gangrene Unspecified ventral hernia without mention of obstruction or gangrene Gastroesophageal reflux disease, unspecified whether esophagitis present Morbid obesity with BMI of 50.0-59.9, adult ([facility]) 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) Chronic lymphocytic thyroiditis Anxiety and depression ([facility]) Gastroesophageal reflux disease, unspecified whether esophagitis present- Primary 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) Chronic lymphocytic thyroiditis Moderate persistent asthma without complication ([facility]) Morbid obesity with BMI of 50.0-59.9, adult ([facility]/HCC) Arthritis of knee, right Aura's thyroiditis (CMS/HCC)- Primary Chronic lymphocytic thyroiditis Morbid obesity with BMI of 50.0-59.9, adult ([facility]) Psoriasis (CMS/HCC) Other psoriasis Anxiety and depression (CMS/HCC) Gastroesophageal reflux disease, unspecified whether esophagitis present Moderate persistent asthma without complication (CMS/HCC) Arthritis of knee, right Anxiety and depression (CMS/HCC)- Primary Mild persistent asthma without complication (CMS/HCC) Gastroesophageal reflux disease, unspecified whether esophagitis present Morbid obesity with BMI of 50.0-59.9, adult ([facility]) Aura's thyroiditis (CMS/HCC) Chronic lymphocytic thyroiditis Morbid obesity due to excess calories (CMS/HCC) Moderate persistent asthma without complication ([facility]) Encounter for screening mammogram for malignant neoplasm of breast Arthritis of knee, right Psoriasis (CMS/HCC)- Primary Other psoriasis Acute postoperative pain of right knee- Primary Status post right knee replacement Difficulty walking Difficulty in walking Aftercare following right knee joint replacement surgery Arthritis of knee, right documented in this encounter [facility] HealthcareEvaluation note* Diagnosis Anxiety and depression ([facility]HCC)- Primary Elevated glucose Other abnormal glucose Hypomagnesemia Disorders of magnesium metabolism Gastroesophageal reflux disease, unspecified whether esophagitis present Morbid obesity with BMI of 50.0-59.9, adult ([facility]) Moderate persistent asthma without complication ([facility]) Chronic pain of right knee Anxiety and depression (CMS/HCC)- Primary Abnormal TSH Chronic pain of right knee Non-recurrent acute suppurative otitis media of left ear without spontaneous rupture of tympanic membrane 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)- Primary Chronic lymphocytic thyroiditis Anxiety and depression ([facility]) Morbid obesity with BMI of 50.0-59.9, adult ([facility]) Arthritis of knee, right Cellulitis of lower extremity, unspecified laterality- Primary Moderate persistent asthma without complication (CMS/HCC) Ventral hernia without obstruction or gangrene Unspecified ventral hernia without mention of obstruction or gangrene Gastroesophageal reflux disease, unspecified whether esophagitis present Morbid obesity with BMI of 50.0-59.9, adult ([facility]) Aura's thyroiditis (CMS/HCC) Chronic lymphocytic thyroiditis Anxiety and depression ([facility]) Gastroesophageal reflux disease, unspecified whether esophagitis present- Primary Aura's thyroiditis (CMS/HCC) Chronic lymphocytic thyroiditis Moderate persistent asthma without complication (CMS/HCC) Morbid obesity with BMI of 50.0-59.9, adult ([facility]/HCC) Arthritis of knee, right Aura's thyroiditis (CMS/HCC)- [...] Morbid obesity with BMI of 50.0-59.9, adult ([facility]) Aura's thyroiditis (CMS/[facility]) Chronic lymphocytic thyroiditis Morbid obesity due to excess calories (CMS/HCC) Moderate persistent asthma without complication (CMS/[facility]) Encounter for screening mammogram for malignant neoplasm of breast Arthritis of knee, right Psoriasis (CMS/[facility])- Primary Other psoriasis Acute postoperative pain of right knee- Primary Status post right knee replacement Difficulty walking Difficulty in walking documented in this encounter [facility] HealthcareEvaluation note* Diagnosis Anxiety and depression (CMS/HCC)- Primary Elevated glucose Other abnormal glucose Hypomagnesemia Disorders of magnesium metabolism Gastroesophageal reflux disease, unspecified whether esophagitis present Morbid obesity with BMI of 50.0-59.9, adult ([facility]) Moderate persistent asthma without complication (CMS/HCC) Chronic pain of right knee Anxiety and depression (CMS/HCC)- Primary Abnormal TSH Chronic pain of right knee Non-recurrent acute suppurative otitis media of left ear without spontaneous rupture of tympanic membrane 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)- Primary Chronic lymphocytic thyroiditis Anxiety and depression ([facility]) Morbid obesity with BMI of 50.0-59.9, adult ([facility]) Arthritis of knee, right Cellulitis of lower extremity, unspecified laterality- Primary Moderate persistent asthma without complication (CMS/HCC) Ventral hernia without obstruction or gangrene Unspecified ventral hernia without mention of obstruction or gangrene Gastroesophageal reflux disease, unspecified whether esophagitis present Morbid obesity with BMI of 50.0-59.9, adult ([facility]) Aura's thyroiditis (CMS/HCC) Chronic lymphocytic thyroiditis Anxiety and depression (CMS/[facility]) Gastroesophageal reflux disease, unspecified whether esophagitis present- Primary 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) Chronic lymphocytic thyroiditis Moderate persistent asthma without complication ([facility]) Morbid obesity with BMI of 50.0-59.9, adult ([facility]) Arthritis of knee, right 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)- Primary Chronic lymphocytic thyroiditis Morbid obesity with BMI of 50.0-59.9, adult ([facility]) Psoriasis ([facility]) Other psoriasis Anxiety and depression ([facility]) Gastroesophageal reflux disease, unspecified whether esophagitis present Moderate persistent asthma without complication ([facility]) Arthritis of knee, right Anxiety and depression ([facility])- Primary Mild persistent asthma without complication ([facility]) Gastroesophageal reflux disease, unspecified whether esophagitis present Morbid obesity with BMI of 50.0-59.9, adult ([facility]) 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 Chronic lymphocytic thyroiditis Morbid obesity due to excess calories ([facility] Moderate persistent asthma without complication ([facility]) Encounter for screening mammogram for malignant neoplasm of breast Arthritis of knee, right Psoriasis ([facility])- Primary Other psoriasis Acute postoperative pain of right knee- Primary Status post right knee replacement Aftercare following right knee joint replacement surgery Arthritis of knee, right Presence of right artificial knee joint Primary osteoarthritis of right knee documented in this encounter [facility] HealthcareEvaluation note* Diagnosis Anxiety and depression ([facility])- Primary Elevated glucose Other abnormal glucose Hypomagnesemia Disorders of magnesium metabolism Gastroesophageal reflux disease, unspecified whether esophagitis present Morbid obesity with BMI of 50.0-59.9, adult ([facility]) Moderate persistent asthma without complication ([facility]) Chronic pain of right knee Anxiety and depression ([facility])- Primary Abnormal TSH Chronic pain of right knee Non-recurrent acute suppurative otitis media of left ear without spontaneous rupture of tympanic membrane 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)- Primary Chronic lymphocytic thyroiditis Anxiety and depression ([facility]) Morbid obesity with BMI of 50.0-59.9, adult ([facility]) Arthritis of knee, right Cellulitis of lower extremity, unspecified laterality- Primary Moderate persistent asthma without complication ([facility]) Ventral hernia without obstruction or gangrene Unspecified ventral hernia without mention of obstruction or gangrene Gastroesophageal reflux disease, unspecified whether esophagitis present Morbid obesity with BMI of 50.0-59.9, adult ([facility]) 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) Chronic lymphocytic thyroiditis Anxiety and depression ([facility]) Gastroesophageal reflux disease, unspecified whether esophagitis present- Primary 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) Chronic lymphocytic thyroiditis Moderate persistent asthma without complication ([facility]) Morbid obesity with BMI of 50.0-59.9, adult ([facility]) Arthritis of knee, right 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)- Primary Chronic lymphocytic thyroiditis Morbid obesity with BMI of 50.0-59.9, adult ([facility]) Psoriasis ([facility]) Other psoriasis Anxiety and depression ([facility]) Gastroesophageal reflux disease, unspecified whether esophagitis present Moderate persistent asthma without complication ([facility]) Arthritis of knee, right Anxiety and depression ([facility])- Primary Mild persistent asthma without complication ([facility]) Gastroesophageal reflux disease, unspecified whether esophagitis present Morbid obesity with BMI of 50.0-59.9, adult ([facility]) 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) Chronic lymphocytic thyroiditis Morbid obesity due to excess calories ([facility] Moderate persistent asthma without complication ([facility]) Encounter for screening mammogram for malignant neoplasm of breast Arthritis of knee, right Psoriasis ([facility])- Primary Other psoriasis Acute postoperative pain of right knee- Primary Status post right knee replacement Aftercare following right knee joint replacement surgery Arthritis of knee, right documented in this encounter [facility] HealthcareEvaluation note* Diagnosis Anxiety and depression ([facility])- Primary Elevated glucose Other abnormal glucose Hypomagnesemia Disorders of magnesium metabolism Gastroesophageal reflux disease, unspecified whether esophagitis present Morbid obesity with BMI of 50.0-59.9, adult ([facility]) Moderate persistent asthma without complication ([facility]) Chronic pain of right knee Anxiety and depression ([facility])- Primary Abnormal TSH Chronic pain of right knee Non-recurrent acute suppurative otitis media of left ear without spontaneous rupture of tympanic membrane 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)- Primary Chronic lymphocytic thyroiditis Anxiety and depression ([facility]) Morbid obesity with BMI of 50.0-59.9, adult ([facility]) Arthritis of knee, right Cellulitis of lower extremity, unspecified laterality- Primary Moderate persistent asthma without complication ([facility]/HCC) Ventral hernia without obstruction or gangrene Unspecified ventral hernia without mention of obstruction or gangrene Gastroesophageal reflux disease, unspecified whether esophagitis present Morbid obesity with BMI of 50.0-59.9, adult ([facility]) 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) Chronic lymphocytic thyroiditis Anxiety and depression ([facility]) Gastroesophageal reflux disease, unspecified whether esophagitis present- Primary 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) Chronic lymphocytic thyroiditis Moderate persistent asthma without complication ([facility]) Morbid obesity with BMI of 50.0-59.9, adult ([facility]) Arthritis of knee, right 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)- Primary Chronic lymphocytic thyroiditis Morbid obesity with BMI of 50.0-59.9, adult ([facility]) Psoriasis ([facility]) Other psoriasis Anxiety and depression ([facility]) Gastroesophageal reflux disease, unspecified whether esophagitis present Moderate persistent asthma without complication ([facility]) Arthritis of knee, right Anxiety and depression ([facility])- Primary Mild persistent asthma without complication ([facility]) Gastroesophageal reflux disease, unspecified whether esophagitis present Morbid obesity with BMI of 50.0-59.9, adult ([facility]) 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) Chronic lymphocytic thyroiditis Morbid obesity due to excess calories ([facility] Moderate persistent asthma without complication ([facility]) Encounter for screening mammogram for malignant neoplasm of breast Arthritis of knee, right Psoriasis ([facility])- Primary Other psoriasis Acute postoperative pain of right knee- Primary Status post right knee replacement Aftercare following right knee joint replacement surgery Arthritis of knee, right Presence of right artificial knee joint Primary osteoarthritis of right knee documented in this encounter [facility] HealthcareEvaluation note* Diagnosis Anxiety and depression ([facility]/HCC)- Primary Elevated glucose Other abnormal glucose Hypomagnesemia Disorders of magnesium metabolism Gastroesophageal reflux disease, unspecified whether esophagitis present Morbid obesity with BMI of 50.0-59.9, adult ([facility]) Moderate persistent asthma without complication ([facility]/HCC) Chronic pain of right knee Anxiety and depression ([facility]/HCC)- Primary Abnormal TSH Chronic pain of right knee Non-recurrent acute suppurative otitis media of left ear without spontaneous rupture of tympanic membrane Aura's thyroiditis ([facility])- Primary Chronic lymphocytic thyroiditis Anxiety and depression ([facility]/HCC) Morbid obesity with BMI of 50.0-59.9, adult ([facility]) Arthritis of knee, right Cellulitis of lower extremity, unspecified laterality- Primary Moderate persistent asthma without complication (CMS/HCC) Ventral hernia without obstruction or gangrene Unspecified ventral hernia without mention of obstruction or gangrene Gastroesophageal reflux disease, unspecified whether esophagitis present Morbid obesity with BMI of 50.0-59.9, adult ([facility]) 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) Chronic lymphocytic thyroiditis Anxiety and depression ([facility]) Gastroesophageal reflux disease, unspecified whether esophagitis present- Primary Aura's thyroiditis (CMS/HCC) Chronic lymphocytic thyroiditis Moderate persistent asthma without complication (CMS/HCC) Morbid obesity with BMI of 50.0-59.9, adult ([facility]) Arthritis of knee, right 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)- Primary Chronic lymphocytic thyroiditis Morbid obesity with BMI of 50.0-59.9, adult ([facility]) Psoriasis ([facility]) Other psoriasis Anxiety and depression ([facility]) Gastroesophageal reflux disease, unspecified whether esophagitis present Moderate persistent asthma without complication (CMS/HCC) Arthritis of knee, right Anxiety and depression (CMS/HCC)- Primary Mild persistent asthma without complication (CMS/HCC) Gastroesophageal reflux disease, unspecified whether esophagitis present Morbid obesity with BMI of 50.0-59.9, adult ([facility]) 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[facility]) Chronic lymphocytic thyroiditis Morbid obesity due to excess calories (CMS/HCC) Moderate persistent asthma without complication ([facility]) Encounter for screening mammogram for malignant neoplasm of breast Arthritis of knee, right Psoriasis ([facility]/HCC)- Primary Other psoriasis 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)- Primary Morbid (severe) obesity due to excess calories ([facility]) Body mass index (BMI) 45.0-49.9, adult ([facility]) Mild persistent asthma without complication (CMS/HCC) Gastroesophageal [...] Morbid obesity with BMI of 50.0-59.9, adult ([facility]) Moderate persistent asthma without complication ([facility]) Chronic pain of right knee Anxiety and depression ([facility])- Primary Abnormal TSH Chronic pain of right knee Non-recurrent acute suppurative otitis media of left ear without spontaneous rupture of tympanic membrane 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)- Primary Chronic lymphocytic thyroiditis Anxiety and depression ([facility]) Morbid obesity with BMI of 50.0-59.9, adult ([facility]) Arthritis of knee, right Cellulitis of lower extremity, unspecified laterality- Primary Moderate persistent asthma without complication ([facility]) Ventral hernia without obstruction or gangrene Unspecified ventral hernia without mention of obstruction or gangrene Gastroesophageal reflux disease, unspecified whether esophagitis present Morbid obesity with BMI of 50.0-59.9, adult ([facility]) 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) Chronic lymphocytic thyroiditis Anxiety and depression ([facility]) Gastroesophageal reflux disease, unspecified whether esophagitis present- Primary 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) Chronic lymphocytic thyroiditis Moderate persistent asthma without complication ([facility]) Morbid obesity with BMI of 50.0-59.9, adult ([facility]) Arthritis of knee, right 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)- Primary Chronic lymphocytic thyroiditis Morbid obesity with BMI of 50.0-59.9, adult ([facility]) Psoriasis ([facility]) Other psoriasis Anxiety and depression ([facility]) Gastroesophageal reflux disease, unspecified whether esophagitis present Moderate persistent asthma without complication ([facility]) Arthritis of knee, right Anxiety and depression ([facility]/HCC)- Primary Mild persistent asthma without complication ([facility]) Gastroesophageal reflux disease, unspecified whether esophagitis present Morbid obesity with BMI of 50.0-59.9, adult ([facility]) 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 Chronic lymphocytic thyroiditis Morbid obesity due to excess calories ([facility]) Moderate persistent asthma without complication ([facility]) Encounter for screening mammogram for malignant neoplasm of breast Arthritis of knee, right Psoriasis ([facility])- Primary Other psoriasis 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)- Primary Morbid (severe) obesity due to excess calories (CMS/HCC) Body mass index (BMI) 45.0-49.9, adult ([facility]) Mild persistent asthma without complication (CMS/HCC) Gastroesophageal reflux disease, unspecified whether esophagitis present Anxiety and depression (CMS/HCC) Hypomagnesemia Disorders of magnesium metabolism Elevated glucose Other abnormal glucose Moderate persistent asthma without complication (CMS/HCC) Moderate persistent asthma, uncomplicated (CMS/HCC) Other constipation Acute postoperative pain of right knee- Primary Status post right knee replacement Aftercare following right knee joint replacement surgery Arthritis of knee, right Presence of right artificial knee joint documented in this encounter [facility] HealthcareEvaluation note* Diagnosis Anxiety and depression (CMS/HCC)- Primary Elevated glucose Other abnormal glucose Hypomagnesemia Disorders of magnesium metabolism Gastroesophageal reflux disease, unspecified whether esophagitis present Morbid obesity with BMI of 50.0-59.9, adult ([facility]) Moderate persistent asthma without complication (CMS/HCC) Chronic pain of right knee Anxiety and depression (CMS/HCC)- Primary Abnormal TSH Chronic pain of right knee Non-recurrent acute suppurative otitis media of left ear without spontaneous rupture of tympanic membrane 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[facility])- Primary Chronic lymphocytic thyroiditis Anxiety and depression ([facility]) Morbid obesity with BMI of 50.0-59.9, adult ([facility]) Arthritis of knee, right Cellulitis of lower extremity, unspecified laterality- Primary Moderate persistent asthma without complication (CMS/HCC) Ventral hernia without obstruction or gangrene Unspecified ventral hernia without mention of obstruction or gangrene Gastroesophageal reflux disease, unspecified whether esophagitis present Morbid obesity with BMI of 50.0-59.9, adult ([facility]) Aura's thyroiditis (CMS/HCC) Chronic lymphocytic thyroiditis Anxiety and depression ([facility]) Gastroesophageal reflux disease, unspecified whether esophagitis present- Primary Aura's thyroiditis (CMS/HCC) Chronic lymphocytic thyroiditis Moderate persistent asthma without complication (CMS/HCC) Morbid obesity with BMI of 50.0-59.9, adult ([facility]) Arthritis of knee, right Aura's thyroiditis (CMS/HCC)- Primary Chronic lymphocytic thyroiditis Morbid obesity with BMI of 50.0-59.9, adult (CMS/[facility]) Psoriasis (CMS/[facility]) Other psoriasis Anxiety and depression (CMS/HCC) Gastroesophageal reflux disease, unspecified whether esophagitis present Moderate persistent asthma without complication (CMS/HCC) Arthritis of knee, right Anxiety and depression (CMS/HCC)- Primary Mild persistent asthma without complication (CMS/HCC) Gastroesophageal reflux disease, unspecified whether esophagitis present Morbid obesity with BMI of 50.0-59.9, adult ([facility]) Aura's thyroiditis (CMS/[facility]) Chronic lymphocytic thyroiditis Morbid obesity due to excess calories ([facility]/HCC) Moderate persistent asthma without complication ([facility]) Encounter for screening mammogram for malignant neoplasm of breast Arthritis of knee, right Psoriasis (CMS/[facility])- Primary Other psoriasis 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[facility])- Primary Morbid (severe) obesity due to excess calories ([facility]) Body mass index (BMI) 45.0-49.9, adult ([facility]) Mild persistent asthma without complication ([facility]) Gastroesophageal reflux disease, unspecified whether esophagitis present Anxiety and depression ([facility]) Hypomagnesemia Disorders of magnesium metabolism Elevated glucose Other abnormal glucose Moderate persistent asthma without complication (CMS/HCC) Moderate persistent asthma, uncomplicated ([facility]) Other constipation Hypothyroidism, unspecified type ([facility])- Primary Hypomagnesemia Disorders of magnesium metabolism documented in this encounter [facility]* Diagnosis Anxiety and depression ([facility])- Primary Elevated glucose Other abnormal glucose Hypomagnesemia Disorders of magnesium metabolism Gastroesophageal reflux disease, unspecified whether esophagitis present Morbid obesity with BMI of 50.0-59.9, adult ([facility]) Moderate persistent asthma without complication ([facility]) Chronic pain of right knee Anxiety and depression ([facility]/HCC)- Primary Abnormal TSH Chronic pain of right knee Non-recurrent acute suppurative otitis media of left ear without spontaneous rupture of tympanic membrane 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)- Primary Chronic lymphocytic thyroiditis Anxiety and depression ([facility]) Morbid obesity with BMI of 50.0-59.9, adult ([facility]) Arthritis of knee, right Cellulitis of lower extremity, unspecified laterality- Primary Moderate persistent asthma without complication (CMS/HCC) Ventral hernia without obstruction or gangrene Unspecified ventral hernia without mention of obstruction or gangrene Gastroesophageal reflux disease, unspecified whether esophagitis present Morbid obesity with BMI of 50.0-59.9, adult ([facility]/HCC) 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) Chronic lymphocytic thyroiditis Anxiety and depression ([facility]) Gastroesophageal reflux disease, unspecified whether esophagitis present- Primary Aura's thyroiditis (CMS/HCC) Chronic lymphocytic thyroiditis Moderate persistent asthma without complication (CMS/HCC) Morbid obesity with BMI of 50.0-59.9, adult ([facility]) Arthritis of knee, right 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)- Primary Chronic lymphocytic thyroiditis Morbid obesity with BMI of 50.0-59.9, adult ([facility]) Psoriasis ([facility]/HCC) Other psoriasis Anxiety and depression ([facility]) Gastroesophageal reflux disease, unspecified whether esophagitis present Moderate persistent asthma without complication (CMS/HCC) Arthritis of knee, right Anxiety and depression ([facility]/HCC)- Primary Mild persistent asthma without complication (CMS/HCC) Gastroesophageal reflux disease, unspecified whether esophagitis present Morbid obesity with BMI of 50.0-59.9, adult ([facility]) 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) Chronic lymphocytic thyroiditis Morbid obesity due to excess calories ([facility] Moderate persistent asthma without complication ([facility]) Encounter for screening mammogram for malignant neoplasm of breast Arthritis of knee, right Psoriasis ([facility])- Primary Other psoriasis 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[facility])- Primary Morbid (severe) obesity due to excess calories ([facility]) Body mass index (BMI) 45.0-49.9, adult ([facility]) Mild persistent asthma without complication ([facility]) Gastroesophageal reflux disease, unspecified whether esophagitis present Anxiety and depression ([facility]) Hypomagnesemia Disorders of magnesium metabolism Elevated glucose Other abnormal glucose Moderate persistent asthma without complication (CMS/HCC) Moderate persistent asthma, uncomplicated ([facility]) Other constipation Hypothyroidism, unspecified type ([facility])- Primary Hypomagnesemia Disorders of magnesium metabolism Acute postoperative pain of right knee- Primary Status post right knee replacement Aftercare following right knee joint replacement surgery Arthritis of knee, right documented in this encounter [facility]* Diagnosis Anxiety and depression ([facility]/HCC)- Primary Elevated glucose Other abnormal glucose Hypomagnesemia Disorders of magnesium metabolism Gastroesophageal reflux disease, unspecified whether esophagitis present Morbid obesity with BMI of 50.0-59.9, adult ([facility]) Moderate persistent asthma without complication ([facility]/HCC) Chronic pain of right knee Anxiety and depression ([facility]/HCC)- Primary Abnormal TSH Chronic pain of right knee Non-recurrent acute suppurative otitis media of left ear without spontaneous rupture of tympanic membrane 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)- Primary Chronic lymphocytic thyroiditis Anxiety and depression ([facility]) Morbid obesity with BMI of 50.0-59.9, adult ([facility]) Arthritis of knee, right Cellulitis of lower extremity, unspecified laterality- Primary Moderate persistent asthma without complication ([facility]) Ventral hernia without obstruction or gangrene Unspecified ventral hernia without mention of obstruction or gangrene Gastroesophageal reflux disease, unspecified whether esophagitis present Morbid obesity with BMI of 50.0-59.9, adult ([facility]) 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) Chronic lymphocytic thyroiditis Anxiety and depression ([facility]) Gastroesophageal reflux disease, unspecified whether esophagitis present- Primary 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) Chronic lymphocytic thyroiditis Moderate persistent asthma without complication ([facility]) Morbid obesity with BMI of 50.0-59.9, adult ([facility]) Arthritis of knee, right 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)- Primary Chronic lymphocytic thyroiditis Morbid obesity with BMI of 50.0-59.9, adult ([facility]) Psoriasis Other psoriasis Anxiety and depression ([facility]) Gastroesophageal reflux disease, unspecified whether esophagitis present Moderate persistent asthma without complication ([facility]) Arthritis of knee, right Anxiety and depression ([facility]/HCC)- Primary Mild persistent asthma without complication ([facility]) Gastroesophageal reflux disease, unspecified whether esophagitis present Morbid obesity with BMI of 50.0-59.9, adult ([facility]) 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 Chronic lymphocytic thyroiditis Morbid obesity due to excess calories ([facility]) Moderate persistent asthma without complication ([facility]) Encounter for screening mammogram for malignant neoplasm of breast Arthritis of knee, right Psoriasis- Primary Other psoriasis 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[facility])- Primary Morbid (severe) obesity due to excess calories ([facility]) Body mass index (BMI) 45.0-49.9, adult ([facility]) Mild persistent asthma without complication ([facility]) Gastroesophageal reflux disease, unspecified whether esophagitis present Anxiety and depression (CMS/HCC) Hypomagnesemia Disorders of magnesium metabolism Elevated glucose Other abnormal glucose Moderate persistent asthma without complication (CMS/HCC) Moderate persistent asthma, uncomplicated ([facility]) Other constipation Hypothyroidism, unspecified type ([facility])- Primary Hypomagnesemia Disorders of magnesium metabolism Well woman exam with routine gynecological exam Routine gynecological examination Encounter for screening mammogram for malignant neoplasm of breast documented in this encounter [facility]* Diagnosis Anxiety and depression ([facility]/HCC)- Primary Elevated glucose Other abnormal glucose Hypomagnesemia Disorders of magnesium metabolism Gastroesophageal reflux disease, unspecified whether esophagitis present Morbid obesity with BMI of 50.0-59.9, adult ([facility]) Moderate persistent asthma without complication ([facility]) Chronic pain of right knee Anxiety and depression ([facility])- Primary Abnormal TSH Chronic pain of right knee Non-recurrent acute suppurative otitis media of left ear without spontaneous rupture of tympanic membrane 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)- Primary Chronic lymphocytic thyroiditis Anxiety and depression ([facility]) Morbid obesity with BMI of 50.0-59.9, adult ([facility]) Arthritis of knee, right Cellulitis of lower extremity, unspecified laterality- Primary Moderate persistent asthma without complication ([facility]) Ventral hernia without obstruction or gangrene Unspecified ventral hernia without mention of obstruction or gangrene Gastroesophageal reflux disease, unspecified whether esophagitis present Morbid obesity with BMI of 50.0-59.9, adult ([facility]) 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) Chronic lymphocytic thyroiditis Anxiety and depression ([facility]) Gastroesophageal reflux disease, unspecified whether esophagitis present- Primary 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) Chronic lymphocytic thyroiditis Moderate persistent asthma without complication ([facility]) Morbid obesity with BMI of 50.0-59.9, adult ([facility]) Arthritis of knee, right 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)- Primary Chronic lymphocytic thyroiditis Morbid obesity with BMI of 50.0-59.9, adult ([facility]) Psoriasis Other psoriasis Anxiety and depression ([facility]) Gastroesophageal reflux disease, unspecified whether esophagitis present Moderate persistent asthma without complication ([facility]) Arthritis of knee, right Anxiety and depression ([facility])- Primary Mild persistent asthma without complication ([facility]) Gastroesophageal reflux disease, unspecified whether [...] Morbid obesity with BMI of 50.0-59.9, adult ([facility]) Moderate persistent asthma without complication (CMS/HCC) Chronic pain of right knee Anxiety and depression (CMS/HCC)- Primary Abnormal TSH Chronic pain of right knee Non-recurrent acute suppurative otitis media of left ear without spontaneous rupture of tympanic membrane Aura's thyroiditis (CMS/HCC)- Primary Chronic lymphocytic thyroiditis Anxiety and depression ([facility]/HCC) Morbid obesity with BMI of 50.0-59.9, adult ([facility]) Arthritis of knee, right Cellulitis of lower extremity, unspecified laterality- Primary Moderate persistent asthma without complication (CMS/HCC) Ventral hernia without obstruction or gangrene Unspecified ventral hernia without mention of obstruction or gangrene Gastroesophageal reflux disease, unspecified whether esophagitis present Morbid obesity with BMI of 50.0-59.9, adult ([facility]/HCC) Aura's thyroiditis (CMS/HCC) Chronic lymphocytic thyroiditis Anxiety and depression (CMS/HCC) Gastroesophageal reflux disease, unspecified whether esophagitis present- Primary Aura's thyroiditis (CMS/HCC) Chronic lymphocytic thyroiditis Moderate persistent asthma without complication (CMS/HCC) Morbid obesity with BMI of 50.0-59.9, adult ([facility]) Arthritis of knee, right 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)- Primary Chronic lymphocytic thyroiditis Morbid obesity with BMI of 50.0-59.9, adult ([facility]) Psoriasis Other psoriasis Anxiety and depression ([facility]) Gastroesophageal reflux disease, unspecified whether esophagitis present Moderate persistent asthma without complication (CMS/HCC) Arthritis of knee, right Anxiety and depression (CMS/HCC)- Primary Mild persistent asthma without complication (CMS/HCC) Gastroesophageal reflux disease, unspecified whether esophagitis present Morbid obesity with BMI of 50.0-59.9, adult ([facility]) 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) Chronic lymphocytic thyroiditis Morbid obesity due to excess calories ([facility]) Moderate persistent asthma without complication ([facility]) Encounter for screening mammogram for malignant neoplasm of breast Arthritis of knee, right Psoriasis- Primary Other psoriasis 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[facility])- Primary Morbid (severe) obesity due to excess calories ([facility]) Body mass index (BMI) 45.0-49.9, adult ([facility]) Mild persistent asthma without complication ([facility]) Gastroesophageal reflux disease, unspecified whether esophagitis present Anxiety and depression ([facility]) Hypomagnesemia Disorders of magnesium metabolism Elevated glucose Other abnormal glucose Moderate persistent asthma without complication (CMS/HCC) Moderate persistent asthma, uncomplicated ([facility]) Other constipation Hypothyroidism, unspecified type ([facility])- Primary Hypomagnesemia Disorders of magnesium metabolism Heart palpitations- Primary Palpitations Gastroesophageal reflux disease, unspecified whether esophagitis present Morbid (severe) obesity due to excess calories ([facility]) Hypomagnesemia Disorders of magnesium metabolism Aftercare following right knee joint replacement surgery- Primary documented in this encounter [facility]* Diagnosis Anxiety and depression ([facility])- Primary Elevated glucose Other abnormal glucose Hypomagnesemia Disorders of magnesium metabolism Gastroesophageal reflux disease, unspecified whether esophagitis present Morbid obesity with BMI of 50.0-59.9, adult ([facility]) Moderate persistent asthma without complication (CMS/HCC) Chronic pain of right knee Anxiety and depression ([facility])- Primary Abnormal TSH Chronic pain of right knee Non-recurrent acute suppurative otitis media of left ear without spontaneous rupture of tympanic membrane 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)- Primary Chronic lymphocytic thyroiditis Anxiety and depression ([facility]) Morbid obesity with BMI of 50.0-59.9, adult ([facility]) Arthritis of knee, right Cellulitis of lower extremity, unspecified laterality- Primary Moderate persistent asthma without complication ([facility]) Ventral hernia without obstruction or gangrene Unspecified ventral hernia without mention of obstruction or gangrene Gastroesophageal reflux disease, unspecified whether esophagitis present Morbid obesity with BMI of 50.0-59.9, adult ([facility]) 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) Chronic lymphocytic thyroiditis Anxiety and depression ([facility]) Gastroesophageal reflux disease, unspecified whether esophagitis present- Primary 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) Chronic lymphocytic thyroiditis Moderate persistent asthma without complication ([facility]) Morbid obesity with BMI of 50.0-59.9, adult ([facility]) Arthritis of knee, right 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)- Primary Chronic lymphocytic thyroiditis Morbid obesity with BMI of 50.0-59.9, adult ([facility]) Psoriasis Other psoriasis Anxiety and depression ([facility]) Gastroesophageal reflux disease, unspecified whether esophagitis present Moderate persistent asthma without complication ([facility]) Arthritis of knee, right Anxiety and depression ([facility]/HCC)- Primary Mild persistent asthma without complication ([facility]) Gastroesophageal reflux disease, unspecified whether esophagitis present Morbid obesity with BMI of 50.0-59.9, adult ([facility]) 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) Chronic lymphocytic thyroiditis Morbid obesity due to excess calories ([facility]) Moderate persistent asthma without complication ([facility]) Encounter for screening mammogram for malignant neoplasm of breast Arthritis of knee, right Psoriasis- Primary Other psoriasis 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)- Primary Morbid (severe) obesity due to excess calories ([facility]) Body mass index (BMI) 45.0-49.9, adult ([facility]) Mild persistent asthma without complication ([facility]) Gastroesophageal reflux disease, unspecified whether esophagitis present Anxiety and depression ([facility]) Hypomagnesemia Disorders of magnesium metabolism Elevated glucose Other abnormal glucose Moderate persistent asthma without complication ([facility]) Moderate persistent asthma, uncomplicated ([facility]) Other constipation Hypothyroidism, unspecified type ([facility])- Primary Hypomagnesemia Disorders of magnesium metabolism Heart palpitations- Primary Palpitations Gastroesophageal reflux disease, unspecified whether esophagitis present Morbid (severe) obesity due to excess calories ([facility]) Hypomagnesemia Disorders of magnesium metabolism Aftercare following right knee joint replacement surgery- Primary documented in this encounter [facility] HealthcareEvaluation note* Diagnosis Anxiety and depression ([facility])- Primary Elevated glucose Other abnormal glucose Hypomagnesemia Disorders of magnesium metabolism Gastroesophageal reflux disease, unspecified whether esophagitis present Morbid obesity with BMI of 50.0-59.9, adult ([facility]) Moderate persistent asthma without complication ([facility]) Chronic pain of right knee Anxiety and depression ([facility])- Primary Abnormal TSH Chronic pain of right knee Non-recurrent acute suppurative otitis media of left ear without spontaneous rupture of tympanic membrane 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)- Primary Chronic lymphocytic thyroiditis Anxiety and depression ([facility]) Morbid obesity with BMI of 50.0-59.9, adult ([facility]) Arthritis of knee, right Cellulitis of lower extremity, unspecified laterality- Primary Moderate persistent asthma without complication ([facility]) Ventral hernia without obstruction or gangrene Unspecified ventral hernia without mention of obstruction or gangrene Gastroesophageal reflux disease, unspecified whether esophagitis present Morbid obesity with BMI of 50.0-59.9, adult ([facility]) 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) Chronic lymphocytic thyroiditis Anxiety and depression ([facility]) Gastroesophageal reflux disease, unspecified whether esophagitis present- Primary 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) Chronic lymphocytic thyroiditis Moderate persistent asthma without complication ([facility]) Morbid obesity with BMI of 50.0-59.9, adult ([facility]) Arthritis of knee, right 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)- Primary Chronic lymphocytic thyroiditis Morbid obesity with BMI of 50.0-59.9, adult ([facility]) Psoriasis Other psoriasis Anxiety and depression ([facility]) Gastroesophageal reflux disease, unspecified whether esophagitis present Moderate persistent asthma without complication ([facility]) Arthritis of knee, right Anxiety and depression ([facility])- Primary Mild persistent asthma without complication ([facility]) Gastroesophageal reflux disease, unspecified whether esophagitis present Morbid obesity with BMI of 50.0-59.9, adult ([facility]) Aura's thyroiditis (CMS/HCC) Chronic lymphocytic thyroiditis Morbid obesity due to excess calories (CMS/HCC) Moderate persistent asthma without complication (CMS/HCC) Encounter for screening mammogram for malignant neoplasm of breast Arthritis of knee, right Psoriasis- Primary Other psoriasis 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 Morbid (severe) obesity due to excess calories (CMS/HCC) Body mass index (BMI) 45.0-49.9, adult ([facility]) Mild persistent asthma without complication (CMS/HCC) Gastroesophageal reflux disease, unspecified whether esophagitis present Anxiety and depression (CMS/HCC) Hypomagnesemia Disorders of magnesium metabolism Elevated glucose Other abnormal glucose Moderate persistent asthma without complication (CMS/HCC) Moderate persistent asthma, uncomplicated ([facility]) Other constipation Hypothyroidism, unspecified type ([facility])- Primary Hypomagnesemia Disorders of magnesium metabolism Heart palpitations- Primary Palpitations Gastroesophageal reflux disease, unspecified whether esophagitis present Morbid (severe) obesity due to excess calories ([facility]) Hypomagnesemia Disorders of magnesium metabolism Hypomagnesemia- Primary Disorders of magnesium metabolism documented in this encounter [facility] HealthcareEvaluation note* Diagnosis Anxiety and depression ([facility])- Primary Elevated glucose Other abnormal glucose Hypomagnesemia Disorders of magnesium metabolism Gastroesophageal reflux disease, unspecified whether esophagitis present Morbid obesity with BMI of 50.0-59.9, adult ([facility]) Moderate persistent asthma without complication (CMS/HCC) Chronic pain of right knee Anxiety and depression (CMS/HCC)- Primary Abnormal TSH Chronic pain of right knee Non-recurrent acute suppurative otitis media of left ear without spontaneous rupture of tympanic membrane Aura's thyroiditis (CMS/HCC)- Primary Chronic lymphocytic thyroiditis Anxiety and depression (CMS/HCC) Morbid obesity with BMI of 50.0-59.9, adult ([facility]) Arthritis of knee, right Cellulitis of lower extremity, unspecified laterality- Primary Moderate persistent asthma without complication (CMS/HCC) Ventral hernia without obstruction or gangrene Unspecified ventral hernia without mention of obstruction or gangrene Gastroesophageal reflux disease, unspecified whether esophagitis present Morbid obesity with BMI of 50.0-59.9, adult ([facility]) Aura's thyroiditis (CMS/HCC) Chronic lymphocytic thyroiditis Anxiety and depression (CMS/HCC) Gastroesophageal reflux disease, unspecified whether esophagitis present- Primary Aura's thyroiditis (CMS/HCC) Chronic lymphocytic thyroiditis Moderate persistent asthma without complication (CMS/HCC) Morbid obesity with BMI of 50.0-59.9, adult ([facility]) Arthritis of knee, right Aura's thyroiditis (CMS/HCC)- Primary Chronic lymphocytic thyroiditis Morbid obesity with BMI of 50.0-59.9, adult ([facility]) Psoriasis Other psoriasis Anxiety and depression ([facility]) Gastroesophageal reflux disease, unspecified whether esophagitis present Moderate persistent asthma without complication (CMS/HCC) Arthritis of knee, right Anxiety and depression (CMS/HCC)- Primary Mild persistent asthma without complication (CMS/HCC) Gastroesophageal reflux disease, unspecified whether esophagitis present Morbid obesity with BMI of 50.0-59.9, adult ([facility]) 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) Chronic lymphocytic thyroiditis Morbid obesity due to excess calories ([facility]) Moderate persistent asthma without complication ([facility]) Encounter for screening mammogram for malignant neoplasm of breast Arthritis of knee, right Psoriasis- Primary Other psoriasis 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)- Primary Morbid (severe) obesity due to excess calories ([facility]) Body mass index (BMI) 45.0-49.9, adult ([facility]) Mild persistent asthma without complication ([facility]) Gastroesophageal reflux disease, unspecified whether esophagitis present Anxiety and depression ([facility]) Hypomagnesemia Disorders of magnesium metabolism Elevated glucose Other abnormal glucose Moderate persistent asthma without complication (CMS/HCC) Moderate persistent asthma, uncomplicated ([facility]) Other constipation Hypothyroidism, unspecified type (CMS/HCC)- Primary Hypomagnesemia Disorders of magnesium metabolism Heart palpitations- Primary Palpitations Gastroesophageal reflux disease, unspecified whether esophagitis present Morbid (severe) obesity due to excess calories ([facility]) Hypomagnesemia Disorders of magnesium metabolism Hypothyroidism, unspecified type ([facility])- Primary documented in this encounter [facility]Evaluation note* Diagnosis Anxiety and depression ([facility])- Primary Elevated glucose Other abnormal glucose Hypomagnesemia Disorders of magnesium metabolism Gastroesophageal reflux disease, unspecified whether esophagitis present Morbid obesity with BMI of 50.0-59.9, adult ([facility]) Moderate persistent asthma without complication ([facility]) Chronic pain of right knee Anxiety and depression (CMS/HCC)- Primary Abnormal TSH Chronic pain of right knee Non-recurrent acute suppurative otitis media of left ear without spontaneous rupture of tympanic membrane 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)- Primary Chronic lymphocytic thyroiditis Anxiety and depression ([facility]) Morbid obesity with BMI of 50.0-59.9, adult ([facility]) Arthritis of knee, right Cellulitis of lower extremity, unspecified laterality- Primary Moderate persistent asthma without complication ([facility]) Ventral hernia without obstruction or gangrene Unspecified ventral hernia without mention of obstruction or gangrene Gastroesophageal reflux disease, unspecified whether esophagitis present Morbid obesity with BMI of 50.0-59.9, adult ([facility]) 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) Chronic lymphocytic thyroiditis Anxiety and depression ([facility]) Gastroesophageal reflux disease, unspecified whether esophagitis present- Primary 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) Chronic lymphocytic thyroiditis Moderate persistent asthma without complication ([facility]) Morbid obesity with BMI of 50.0-59.9, adult ([facility]) Arthritis of knee, right 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)- Primary Chronic lymphocytic thyroiditis Morbid obesity with BMI of 50.0-59.9, adult ([facility]) Psoriasis Other psoriasis Anxiety and depression ([facility]) Gastroesophageal reflux disease, unspecified whether esophagitis present Moderate persistent asthma without complication ([facility]) Arthritis of knee, right Anxiety and depression ([facility])- Primary Mild persistent asthma without complication ([facility]) Gastroesophageal reflux disease, unspecified whether esophagitis present Morbid obesity with BMI of 50.0-59.9, adult ([facility]) 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) Chronic lymphocytic thyroiditis Morbid obesity due to excess calories ([facility]) Moderate persistent asthma without complication ([facility]) Encounter for screening mammogram for malignant neoplasm of breast Arthritis of knee, right Psoriasis- Primary Other psoriasis 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[facility])- Primary Morbid (severe) obesity due to excess calories ([facility]) Body mass index (BMI) 45.0-49.9, adult ([facility]) Mild persistent asthma without complication ([facility]) Gastroesophageal reflux disease, unspecified whether esophagitis present Anxiety and depression ([facility]) Hypomagnesemia Disorders of magnesium metabolism Elevated glucose Other abnormal glucose Moderate persistent asthma without complication ([facility]) Moderate persistent asthma, uncomplicated ([facility]) Other constipation Hypothyroidism, unspecified type ([facility])- Primary Hypomagnesemia Disorders of magnesium metabolism Heart palpitations- Primary Palpitations Gastroesophageal reflux disease, unspecified whether esophagitis present Morbid (severe) obesity due to excess calories ([facility]) Hypomagnesemia Disorders of magnesium metabolism Heart palpitations- Primary Palpitations Morbid (severe) obesity due to excess calories ([facility]) Ventricular arrhythmia Unspecified cardiac dysrhythmia Abnormal electrocardiogram (ECG) (EKG) documented in this encounter [facility] HealthcareEvaluation note* Diagnosis Anxiety and depression ([facility])- Primary Elevated glucose Other abnormal glucose Hypomagnesemia Disorders of magnesium metabolism Gastroesophageal reflux disease, unspecified whether esophagitis present Morbid obesity with BMI of 50.0-59.9, adult ([facility]) Moderate persistent asthma without complication ([facility] Chronic pain of right knee Anxiety and depression ([facility])- Primary Abnormal TSH Chronic pain of right knee Non-recurrent acute suppurative otitis media of left ear without spontaneous rupture of tympanic membrane 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)- Primary Chronic lymphocytic thyroiditis Anxiety and depression ([facility]) Morbid obesity with BMI of 50.0-59.9, adult ([facility]) Arthritis of knee, right Cellulitis of lower extremity, unspecified laterality- Primary Moderate persistent asthma without complication ([facility]) Ventral hernia without obstruction or gangrene Unspecified ventral hernia without mention of obstruction or gangrene Gastroesophageal reflux disease, unspecified whether esophagitis present Morbid obesity with BMI of 50.0-59.9, adult ([facility]) 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) Chronic lymphocytic thyroiditis Anxiety and depression ([facility]) Gastroesophageal reflux disease, unspecified whether esophagitis present- Primary 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) Chronic lymphocytic thyroiditis Moderate persistent asthma without complication ([facility]) Morbid obesity with BMI of 50.0-59.9, adult ([facility]) Arthritis of knee, right 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)- Primary Chronic lymphocytic thyroiditis Morbid obesity with BMI of 50.0-59.9, adult ([facility]) Psoriasis Other psoriasis Anxiety and depression ([facility]) Gastroesophageal reflux disease, unspecified whether esophagitis present Moderate persistent asthma without complication (CMS/HCC) Arthritis of knee, right Anxiety and depression ([facility])- Primary Mild persistent asthma without complication (CMS/HCC) Gastroesophageal reflux disease, unspecified whether esophagitis present Morbid obesity with BMI of 50.0-59.9, adult ([facility]) 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) Chronic lymphocytic thyroiditis Morbid obesity due to excess calories ([facility]) Moderate persistent asthma without complication ([facility]) Encounter for screening mammogram for malignant neoplasm of breast Arthritis of knee, right Psoriasis- Primary Other psoriasis 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)- Primary Morbid (severe) obesity due to excess calories ([facility]) Body mass index (BMI) 45.0-49.9, adult ([facility]) Mild persistent asthma without complication ([facility]) Gastroesophageal reflux disease, unspecified whether esophagitis present Anxiety and depression ([facility]) Hypomagnesemia Disorders of magnesium metabolism Elevated glucose Other abnormal glucose Moderate persistent asthma without complication ([facility]) Moderate persistent asthma, uncomplicated ([facility]) Other constipation Hypothyroidism, unspecified type ([facility])- Primary Hypomagnesemia Disorders of magnesium metabolism Heart palpitations- Primary Palpitations Gastroesophageal reflux disease, unspecified whether esophagitis present Morbid (severe) obesity due to excess calories ([facility]) Hypomagnesemia Disorders of magnesium metabolism Heart palpitations- Primary Palpitations Ventricular arrhythmia Unspecified cardiac dysrhythmia documented in this encounter [facility]* Diagnosis Anxiety and depression ([facility])- Primary Elevated glucose Other abnormal glucose Hypomagnesemia Disorders of magnesium metabolism Gastroesophageal reflux disease, unspecified whether esophagitis present Morbid obesity with BMI of 50.0-59.9, adult ([facility]) Moderate persistent asthma without complication ([facility] Chronic pain of right knee Anxiety and depression ([facility])- Primary Abnormal TSH Chronic pain of right knee Non-recurrent acute suppurative otitis media of left ear without spontaneous rupture of tympanic membrane 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)- Primary Chronic lymphocytic thyroiditis Anxiety and depression ([facility]) Morbid obesity with BMI of 50.0-59.9, adult ([facility]) Arthritis of knee, right Cellulitis of lower extremity, unspecified laterality- Primary Moderate persistent asthma without complication ([facility]) Ventral hernia without obstruction or gangrene Unspecified ventral hernia without mention of obstruction or gangrene Gastroesophageal reflux disease, unspecified whether esophagitis present Morbid obesity with BMI of 50.0-59.9, adult ([facility]) 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) Chronic lymphocytic thyroiditis Anxiety and depression ([facility]) Gastroesophageal reflux disease, unspecified whether esophagitis present- Primary 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) Chronic lymphocytic thyroiditis Moderate persistent asthma without complication ([facility]) Morbid obesity with BMI of 50.0-59.9, adult ([facility]) Arthritis of knee, right 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)- Primary Chronic lymphocytic thyroiditis Morbid obesity with BMI of 50.0-59.9, adult ([facility]) Psoriasis Other psoriasis Anxiety and depression ([facility]) Gastroesophageal reflux disease, unspecified whether esophagitis present Moderate persistent asthma without complication ([facility]) Arthritis of knee, right Anxiety and depression ([facility])- Primary Mild persistent asthma without complication ([facility]) Gastroesophageal reflux disease, unspecified whether esophagitis present Morbid obesity with BMI of 50.0-59.9, adult ([facility]) 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) Chronic lymphocytic thyroiditis Morbid obesity due to excess calories ([facility]) Moderate persistent asthma without complication ([facility]) Encounter for screening mammogram for malignant neoplasm of breast Arthritis of knee, right Psoriasis- Primary Other psoriasis 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[facility])- Primary Morbid (severe) obesity due to excess calories ([facility]) Body mass index (BMI) 45.0-49.9, adult ([facility]) Mild persistent asthma without complication ([facility]) Gastroesophageal reflux disease, unspecified whether esophagitis present Anxiety and depression ([facility]) Hypomagnesemia Disorders of magnesium metabolism Elevated glucose Other abnormal glucose Moderate persistent asthma without complication ([facility]) Moderate persistent asthma, uncomplicated ([facility]) Other constipation Hypothyroidism, unspecified type ([facility])- Primary Hypomagnesemia Disorders of magnesium metabolism Heart palpitations- Primary Palpitations Gastroesophageal reflux disease, unspecified whether esophagitis present Morbid (severe) obesity due to excess calories ([facility]) Hypomagnesemia Disorders of magnesium metabolism Hormone disorder Unspecified endocrine disorder documented in this encounter [facility]* Diagnosis Anxiety and depression ([facility])- Primary Elevated glucose Other abnormal glucose Hypomagnesemia Disorders of magnesium metabolism Gastroesophageal reflux disease, unspecified whether esophagitis present Morbid obesity with BMI of 50.0-59.9, adult ([facility]) Moderate persistent asthma without complication ([facility]) Chronic pain of right knee Anxiety and depression ([facility])- Primary Abnormal TSH Chronic pain of right knee Non-recurrent acute suppurative otitis media of left ear without spontaneous rupture of tympanic membrane 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)- Primary Chronic lymphocytic thyroiditis Anxiety and depression ([facility]) Morbid obesity with BMI of 50.0-59.9, adult ([facility]) Arthritis of knee, right Cellulitis of lower extremity, unspecified laterality- Primary Moderate persistent asthma without complication ([facility]) Ventral hernia without obstruction or gangrene Unspecified ventral hernia without mention of obstruction or gangrene Gastroesophageal reflux disease, unspecified whether esophagitis present Morbid obesity with BMI of 50.0-59.9, adult ([facility]) 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) Chronic lymphocytic thyroiditis Anxiety and depression ([facility]) Gastroesophageal reflux disease, unspecified whether esophagitis present- Primary 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) Chronic lymphocytic thyroiditis Moderate persistent asthma without complication ([facility]) Morbid obesity with BMI of 50.0-59.9, adult ([facility]) Arthritis of knee, right 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)- Primary Chronic lymphocytic thyroiditis Morbid obesity with BMI of 50.0-59.9, adult ([facility]) Psoriasis Other psoriasis Anxiety and depression ([facility]) Gastroesophageal reflux disease, unspecified whether esophagitis present Moderate persistent asthma without complication ([facility]) Arthritis of knee, right Anxiety and depression ([facility])- Primary Mild persistent asthma without complication ([facility]) Gastroesophageal reflux disease, unspecified whether esophagitis present Morbid obesity with BMI of 50.0-59.9, adult ([facility]) 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) Chronic lymphocytic thyroiditis Morbid obesity due to excess calories ([facility]) Moderate persistent asthma without complication ([facility]) Encounter for screening mammogram for malignant neoplasm of breast Arthritis of knee, right Psoriasis- Primary Other psoriasis 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[facility])- Primary Morbid (severe) obesity due to excess calories ([facility]) Body mass index (BMI) 45.0-49.9, adult ([facility]) Mild persistent asthma without complication ([facility]) Gastroesophageal reflux disease, unspecified whether esophagitis present Anxiety and depression ([facility]) Hypomagnesemia Disorders of magnesium metabolism Elevated glucose Other abnormal glucose Moderate persistent asthma without complication (CMS/HCC) Moderate persistent asthma, uncomplicated ([facility]) Other constipation Hypothyroidism, unspecified type ([facility])- Primary Hypomagnesemia Disorders of magnesium metabolism Heart palpitations- Primary Palpitations Gastroesophageal reflux disease, unspecified whether esophagitis present Morbid (severe) obesity due to excess calories ([facility]) Hypomagnesemia Disorders of magnesium metabolism Heart palpitations- Primary Palpitations Ventricular arrhythmia Unspecified cardiac dysrhythmia Gastroesophageal reflux disease, unspecified whether esophagitis present Morbid (severe) obesity due to excess calories ([facility]) Anxiety and depression ([facility]) Environmental and seasonal allergies Moderate persistent asthma without complication ([facility]) documented in this encounter [facility]* Diagnosis Anxiety and depression- Primary Elevated glucose Other abnormal glucose Hypomagnesemia Disorders of magnesium metabolism Gastroesophageal reflux disease, unspecified whether esophagitis present Morbid obesity with BMI of 50.0-59.9, adult ([facility]) Moderate persistent asthma without complication (HCC) Chronic pain of right knee Anxiety and depression- Primary Abnormal TSH Chronic pain of right knee Non-recurrent acute suppurative otitis media of left ear without spontaneous rupture of tympanic membrane Aura's thyroiditis- Primary Chronic lymphocytic thyroiditis Anxiety and depression Morbid obesity with BMI of 50.0-59.9, adult ([facility]) Arthritis of knee, right Cellulitis of lower extremity, unspecified laterality- Primary Moderate persistent asthma without complication (HCC) Ventral hernia without obstruction or gangrene Unspecified ventral hernia without mention of obstruction or gangrene Gastroesophageal reflux disease, unspecified whether esophagitis present Morbid obesity with BMI of 50.0-59.9, adult ([facility]) Aura's thyroiditis Chronic lymphocytic thyroiditis Anxiety and depression Gastroesophageal reflux disease, unspecified whether esophagitis present- Primary Aura's thyroiditis Chronic lymphocytic thyroiditis Moderate persistent asthma without complication (HCC) Morbid obesity with BMI of 50.0-59.9, adult ([facility]) Arthritis of knee, right Aura's thyroiditis- Primary Chronic lymphocytic thyroiditis Morbid obesity with BMI of 50.0-59.9, adult ([facility]) Psoriasis Other psoriasis Anxiety and depression Gastroesophageal reflux disease, unspecified whether esophagitis present Moderate persistent asthma without complication (HCC) Arthritis of knee, right Anxiety and depression- Primary Mild persistent asthma without complication (HCC) Gastroesophageal reflux disease, unspecified whether esophagitis present Morbid obesity with BMI of 50.0-59.9, adult ([facility]) Aura's thyroiditis Chronic lymphocytic thyroiditis Morbid obesity due to excess calories ([facility]) Moderate persistent asthma without complication (HCC) Encounter for screening mammogram for malignant neoplasm of breast Arthritis of knee, right Psoriasis- Primary Other psoriasis 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 Morbid (severe) obesity due to excess calories ([facility]) Body mass index (BMI) 45.0-49.9, adult ([facility]) Mild persistent asthma without complication (HCC) Gastroesophageal reflux disease, unspecified whether esophagitis present Anxiety and depression Hypomagnesemia Disorders of magnesium metabolism Elevated glucose Other abnormal glucose Moderate persistent asthma without complication (HCC) Moderate persistent asthma, uncomplicated (HCC) Other constipation Hypothyroidism, unspecified type- Primary Hypomagnesemia Disorders of magnesium metabolism Heart palpitations- Primary Palpitations Gastroesophageal reflux disease, unspecified whether esophagitis present Morbid (severe) obesity due to excess calories ([facility]) Hypomagnesemia Disorders of magnesium metabolism Heart palpitations- Primary Palpitations Ventricular arrhythmia Unspecified cardiac dysrhythmia Gastroesophageal reflux disease, unspecified whether esophagitis present Morbid (severe) obesity due to excess calories ([facility]) Anxiety and depression Environmental and seasonal allergies Moderate persistent asthma without complication (HCC) Environmental and seasonal allergies- Primary Mild intermittent asthma with (acute) exacerbation (HCC) documented in this encounter [facility]* Diagnosis Anxiety and depression- Primary Elevated glucose Other abnormal glucose Hypomagnesemia Disorders of magnesium metabolism Gastroesophageal reflux disease, unspecified whether esophagitis present Morbid obesity with BMI of 50.0-59.9, adult ([facility]) Moderate persistent asthma without complication (HCC) Chronic pain of right knee Anxiety and depression- Primary Abnormal TSH Chronic pain of right knee Non-recurrent acute suppurative otitis media of left ear without spontaneous rupture of tympanic membrane Aura's thyroiditis- Primary Chronic lymphocytic thyroiditis Anxiety and depression Morbid obesity with BMI of 50.0-59.9, adult ([facility]) Arthritis of knee, right Cellulitis of lower extremity, unspecified laterality- Primary Moderate persistent asthma without complication (HCC) Ventral hernia without obstruction or gangrene Unspecified ventral hernia without mention of obstruction or gangrene Gastroesophageal reflux disease, unspecified whether esophagitis present Morbid obesity with BMI of 50.0-59.9, adult ([facility]) Aura's thyroiditis Chronic lymphocytic thyroiditis Anxiety and depression Gastroesophageal reflux disease, unspecified whether esophagitis present- Primary Aura's thyroiditis Chronic lymphocytic thyroiditis Moderate persistent asthma without complication (HCC) Morbid obesity with BMI of 50.0-59.9, adult ([facility]) Arthritis of knee, right Aura's thyroiditis- Primary Chronic lymphocytic thyroiditis Morbid obesity with BMI of 50.0-59.9, adult ([facility]) Psoriasis Other psoriasis Anxiety and depression Gastroesophageal reflux disease, unspecified whether esophagitis present Moderate persistent asthma without complication (HCC) Arthritis of knee, right Anxiety and depression- Primary Mild persistent asthma without complication (HCC) Gastroesophageal reflux disease, unspecified whether esophagitis present Morbid obesity with BMI of 50.0-59.9, adult ([facility]) Aura's thyroiditis Chronic lymphocytic thyroiditis Morbid obesity due to excess calories ([facility]) Moderate persistent asthma without complication (HCC) Encounter for screening mammogram for malignant neoplasm of breast Arthritis of knee, right Psoriasis- Primary Other psoriasis 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 Morbid (severe) obesity due to excess calories ([facility]) Body mass index (BMI) 45.0-49.9, adult ([facility]) Mild persistent asthma without complication (HCC) Gastroesophageal reflux disease, unspecified whether esophagitis present Anxiety and depression Hypomagnesemia Disorders of magnesium metabolism Elevated glucose Other abnormal glucose Moderate persistent asthma without complication (HCC) Moderate persistent asthma, uncomplicated (HCC) Other constipation Hypothyroidism, unspecified type- Primary Hypomagnesemia Disorders of magnesium metabolism Heart palpitations- Primary Palpitations Gastroesophageal reflux disease, unspecified whether esophagitis present Morbid (severe) obesity due to excess calories ([facility]) Hypomagnesemia Disorders of magnesium metabolism Heart palpitations- Primary Palpitations Ventricular arrhythmia Unspecified cardiac dysrhythmia Gastroesophageal reflux disease, unspecified whether esophagitis present Morbid (severe) obesity due to excess calories ([facility]) Anxiety and depression Environmental and seasonal allergies Moderate persistent asthma without complication (HCC) Hormone disorder- Primary Unspecified endocrine disorder documented in this encounter [facility]* Diagnosis Anxiety and depression- Primary Elevated glucose Other abnormal glucose Hypomagnesemia Disorders of magnesium metabolism Gastroesophageal reflux disease, unspecified whether esophagitis present Morbid obesity with BMI of 50.0-59.9, adult ([facility]) Moderate persistent asthma without complication (HCC) Chronic pain of right knee Anxiety and depression- Primary Abnormal TSH Chronic pain of right knee Non-recurrent acute suppurative otitis media of left ear without spontaneous rupture of tympanic membrane Aura's thyroiditis- Primary Chronic lymphocytic thyroiditis Anxiety and depression Morbid obesity with BMI of 50.0-59.9, adult ([facility]) Arthritis of knee, right Cellulitis of lower extremity, unspecified laterality- Primary Moderate persistent asthma without complication (HCC) Ventral hernia without obstruction or gangrene Unspecified ventral hernia without mention of obstruction or gangrene Gastroesophageal reflux disease, unspecified whether esophagitis present Morbid obesity with BMI of 50.0-59.9, adult ([facility]) Aura's thyroiditis Chronic lymphocytic thyroiditis Anxiety and depression Gastroesophageal reflux disease, unspecified whether esophagitis present- Primary Aura's thyroiditis Chronic lymphocytic thyroiditis Moderate persistent asthma without complication (HCC) Morbid obesity with BMI of 50.0-59.9, adult ([facility]) Arthritis of knee, right Aura's thyroiditis- Primary Chronic lymphocytic thyroiditis Morbid obesity with BMI of 50.0-59.9, adult ([facility]) Psoriasis Other psoriasis Anxiety and depression Gastroesophageal reflux disease, unspecified whether esophagitis present Moderate persistent asthma without complication (HCC) Arthritis of knee, right Anxiety and depression- Primary Mild persistent asthma without complication (HCC) Gastroesophageal reflux disease, unspecified whether esophagitis present Morbid obesity with BMI of 50.0-59.9, adult ([facility]) Aura's thyroiditis Chronic lymphocytic thyroiditis Morbid obesity due to excess calories ([facility]) Moderate persistent asthma without complication (HCC) Encounter for screening mammogram for malignant neoplasm of breast Arthritis of knee, right Psoriasis- Primary Other psoriasis 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 Morbid (severe) obesity due to excess calories ([facility]) Body mass index (BMI) 45.0-49.9, adult ([facility]) Mild persistent asthma without complication (HCC) Gastroesophageal reflux disease, unspecified whether esophagitis present Anxiety and depression Hypomagnesemia Disorders of magnesium metabolism Elevated glucose Other abnormal glucose Moderate persistent asthma without complication (HCC) Moderate persistent asthma, uncomplicated (HCC) Other constipation Hypothyroidism, unspecified type- Primary Hypomagnesemia Disorders of magnesium metabolism Heart palpitations- Primary Palpitations Gastroesophageal reflux disease, unspecified whether esophagitis present Morbid (severe) obesity due to excess calories ([facility]) Hypomagnesemia Disorders of magnesium metabolism Heart palpitations- Primary Palpitations Ventricular arrhythmia Unspecified cardiac dysrhythmia Gastroesophageal reflux disease, unspecified whether esophagitis present Morbid (severe) obesity due to excess calories ([facility]) Anxiety and depression Environmental and seasonal allergies Moderate persistent asthma without complication (HCC) Hypothyroidism, unspecified type- Primary documented in this encounter [facility]* Diagnosis Anxiety and depression- Primary Elevated glucose Other abnormal glucose Hypomagnesemia Disorders of magnesium metabolism Gastroesophageal reflux disease, unspecified whether esophagitis present Morbid obesity with BMI of 50.0-59.9, adult ([facility]) Moderate persistent asthma without complication (HCC) Chronic pain of right knee Anxiety and depression- Primary Abnormal TSH Chronic pain of right knee Non-recurrent acute suppurative otitis media of left ear without spontaneous rupture of tympanic membrane Aura's thyroiditis- Primary Chronic lymphocytic thyroiditis Anxiety and depression Morbid obesity with BMI of 50.0-59.9, adult ([facility]) Arthritis of knee, right Cellulitis of lower extremity, unspecified laterality- Primary Moderate persistent asthma without complication (HCC) Ventral hernia without obstruction or gangrene Unspecified ventral hernia without mention of obstruction or gangrene Gastroesophageal reflux disease, unspecified whether esophagitis present Morbid obesity with BMI of 50.0-59.9, adult ([facility]) Aura's thyroiditis Chronic lymphocytic thyroiditis Anxiety and depression Gastroesophageal reflux disease, unspecified whether esophagitis present- Primary Aura's thyroiditis Chronic lymphocytic thyroiditis Moderate persistent asthma without complication (HCC) Morbid obesity with BMI of 50.0-59.9, adult ([facility]) Arthritis of knee, right Aura's thyroiditis- Primary Chronic lymphocytic thyroiditis Morbid obesity with BMI of 50.0-59.9, adult ([facility]) Psoriasis Other psoriasis Anxiety and depression Gastroesophageal reflux disease, unspecified whether esophagitis present Moderate persistent asthma without complication (HCC) Arthritis of knee, right Anxiety and depression- Primary Mild persistent asthma without complication (HCC) Gastroesophageal reflux disease, unspecified whether esophagitis present Morbid obesity with BMI of 50.0-59.9, adult ([facility]) Aura's thyroiditis Chronic lymphocytic thyroiditis Morbid obesity due to excess calories ([facility]) Moderate persistent asthma without complication (HCC) Encounter for screening mammogram for malignant neoplasm of breast Arthritis of knee, right Psoriasis- Primary Other psoriasis 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 Morbid (severe) obesity due to excess calories ([facility]) Body mass index (BMI) 45.0-49.9, adult ([facility]) Mild persistent asthma without complication ([facility]) Gastroesophageal reflux disease, unspecified whether esophagitis present Anxiety and depression Hypomagnesemia Disorders of magnesium metabolism Elevated glucose Other abnormal glucose Moderate persistent asthma without complication (HCC) Moderate persistent asthma, uncomplicated ([facility]) Other constipation Hypothyroidism, unspecified type- Primary Hypomagnesemia Disorders of magnesium metabolism Heart palpitations- Primary Palpitations Gastroesophageal reflux disease, unspecified whether esophagitis present Morbid (severe) obesity due to excess calories ([facility]) Hypomagnesemia Disorders of magnesium metabolism Heart palpitations- Primary Palpitations Ventricular arrhythmia Unspecified cardiac dysrhythmia Gastroesophageal reflux disease, unspecified whether esophagitis present Morbid (severe) obesity due to excess calories ([facility]) Anxiety and depression Environmental and seasonal allergies Moderate persistent asthma without complication ([facility]) Hypomagnesemia Disorders of magnesium metabolism documented in this encounter [facility]* Diagnosis Anxiety and depression- Primary Elevated glucose Other abnormal glucose Hypomagnesemia Disorders of magnesium metabolism Gastroesophageal reflux disease, unspecified whether esophagitis present Morbid obesity with BMI of 50.0-59.9, adult ([facility]) Moderate persistent asthma without complication ([facility]) Chronic pain of right knee Anxiety and depression- Primary Abnormal TSH Chronic pain of right knee Non-recurrent acute suppurative otitis media of left ear without spontaneous rupture of tympanic membrane Aura's thyroiditis- Primary Chronic lymphocytic thyroiditis Anxiety and depression Morbid obesity with BMI of 50.0-59.9, adult ([facility]) Arthritis of knee, right Cellulitis of lower extremity, unspecified laterality- Primary Moderate persistent asthma without complication ([facility]) Ventral hernia without obstruction or gangrene Unspecified ventral hernia without mention of obstruction or gangrene Gastroesophageal reflux disease, unspecified whether esophagitis present Morbid obesity with BMI of 50.0-59.9, adult ([facility]) Aura's thyroiditis Chronic lymphocytic thyroiditis Anxiety and depression Gastroesophageal reflux disease, unspecified whether esophagitis present- Primary Aura's thyroiditis Chronic lymphocytic thyroiditis Moderate persistent asthma without complication (HCC) Morbid obesity with BMI of 50.0-59.9, adult ([facility]) Arthritis of knee, right Aura's thyroiditis- Primary Chronic lymphocytic thyroiditis Morbid obesity with BMI of 50.0-59.9, adult ([facility]) Psoriasis Other psoriasis Anxiety and depression Gastroesophageal reflux disease, unspecified whether esophagitis present Moderate persistent asthma without complication (HCC) Arthritis of knee, right Anxiety and depression- Primary Mild persistent asthma without complication (HCC) Gastroesophageal reflux disease, unspecified whether esophagitis present Morbid obesity with BMI of 50.0-59.9, adult ([facility]) Aura's thyroiditis Chronic lymphocytic thyroiditis Morbid obesity due to excess calories ([facility]) Moderate persistent asthma without complication (HCC) Encounter for screening mammogram for malignant neoplasm of breast Arthritis of knee, right Psoriasis- Primary Other psoriasis 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 Morbid (severe) obesity due to excess calories ([facility]) Body mass index (BMI) 45.0-49.9, adult ([facility]) Mild persistent asthma without complication (HCC) Gastroesophageal reflux disease, unspecified whether esophagitis present Anxiety and depression Hypomagnesemia Disorders of magnesium metabolism Elevated glucose Other abnormal glucose Moderate persistent asthma without complication (HCC) Moderate persistent asthma, uncomplicated (HCC) Other constipation Hypothyroidism, unspecified type- Primary Hypomagnesemia Disorders of magnesium metabolism Heart palpitations- Primary Palpitations Gastroesophageal reflux disease, unspecified whether esophagitis present Morbid (severe) obesity due to excess calories ([facility]) Hypomagnesemia Disorders of magnesium metabolism Heart palpitations- Primary Palpitations Ventricular arrhythmia Unspecified cardiac dysrhythmia Gastroesophageal reflux disease, unspecified whether esophagitis present Morbid (severe) obesity due to excess calories ([facility]) Anxiety and depression Environmental and seasonal allergies Moderate persistent asthma without complication (HCC) Heart palpitations- Primary Palpitations Essential hypertension Unspecified essential hypertension Morbid (severe) obesity due to excess calories ([facility]) Hypothyroidism, unspecified type Anxiety and depression Hypomagnesemia Disorders of magnesium metabolism Moderate persistent asthma without complication (HCC) Gastroesophageal reflux disease, unspecified whether esophagitis present Ventral hernia without obstruction or gangrene Unspecified ventral hernia without mention of obstruction or gangrene documented in this encounter [facility]* Diagnosis Anxiety and depression- Primary Elevated glucose Other abnormal glucose Hypomagnesemia Disorders of magnesium metabolism Gastroesophageal reflux disease, unspecified whether esophagitis present Morbid obesity with BMI of 50.0-59.9, adult ([facility]) Moderate persistent asthma without complication (HCC) Chronic pain of right knee Anxiety and depression- Primary Abnormal TSH Chronic pain of right knee Non-recurrent acute suppurative otitis media of left ear without spontaneous rupture of tympanic membrane Aura's thyroiditis- Primary Chronic lymphocytic thyroiditis Anxiety and depression Morbid obesity with BMI of 50.0-59.9, adult ([facility]) Arthritis of knee, right Cellulitis of lower extremity, unspecified laterality- Primary Moderate persistent asthma without complication (HCC) Ventral hernia without obstruction or gangrene Unspecified ventral hernia without mention of obstruction or gangrene Gastroesophageal reflux disease, unspecified whether esophagitis present Morbid obesity with BMI of 50.0-59.9, adult ([facility]) Aura's thyroiditis Chronic lymphocytic thyroiditis Anxiety and depression Gastroesophageal reflux disease, unspecified whether esophagitis present- Primary Aura's thyroiditis Chronic lymphocytic thyroiditis Moderate persistent asthma without complication (HCC) Morbid obesity with BMI of 50.0-59.9, adult ([facility]) Arthritis of knee, right Aura's thyroiditis- Primary Chronic lymphocytic thyroiditis Morbid obesity with BMI of 50.0-59.9, adult ([facility]) Psoriasis Other psoriasis Anxiety and depression Gastroesophageal reflux disease, unspecified whether esophagitis present Moderate persistent asthma without complication (HCC) Arthritis of knee, right Anxiety and depression- Primary Mild persistent asthma without complication (HCC) Gastroesophageal reflux disease, unspecified whether esophagitis present Morbid obesity with BMI of 50.0-59.9, adult ([facility]) Aura's thyroiditis Chronic lymphocytic thyroiditis Morbid obesity due to excess calories ([facility]) Moderate persistent asthma without complication (HCC) Encounter for screening mammogram for malignant neoplasm of breast Arthritis of knee, right Psoriasis- Primary Other psoriasis 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 Morbid (severe) obesity due to excess calories ([facility]) Body mass index (BMI) 45.0-49.9, adult ([facility]) Mild persistent asthma without complication (HCC) Gastroesophageal reflux disease, unspecified whether esophagitis present Anxiety and depression Hypomagnesemia Disorders of magnesium metabolism Elevated glucose Other abnormal glucose Moderate persistent asthma without complication (HCC) Moderate persistent asthma, uncomplicated (HCC) Other constipation Hypothyroidism, unspecified type- Primary Hypomagnesemia Disorders of magnesium metabolism Heart palpitations- Primary Palpitations Gastroesophageal reflux disease, unspecified whether esophagitis present Morbid (severe) obesity due to excess calories ([facility] Hypomagnesemia Disorders of magnesium metabolism Heart palpitations- Primary Palpitations Ventricular arrhythmia Unspecified cardiac dysrhythmia Gastroesophageal reflux disease, unspecified whether esophagitis present Morbid (severe) obesity due to excess calories ([facility] Anxiety and depression Environmental and seasonal allergies Moderate persistent asthma without complication (HCC) Heart palpitations- Primary Palpitations Essential hypertension Unspecified essential hypertension Morbid (severe) obesity due to excess calories ([facility]) Hypothyroidism, unspecified type Anxiety and depression Hypomagnesemia Disorders of magnesium metabolism Moderate persistent asthma without complication (HCC) Gastroesophageal reflux disease, unspecified whether esophagitis present Ventral hernia without obstruction or gangrene Unspecified ventral hernia without mention of obstruction or gangrene Recurrent ventral hernia Incisional hernia without mention of obstruction or gangrene documented in this encounter [facility]* Diagnosis Anxiety and depression- Primary Elevated glucose Other abnormal glucose Hypomagnesemia Disorders of magnesium metabolism Gastroesophageal reflux disease, unspecified whether esophagitis present Morbid obesity with BMI of 50.0-59.9, adult ([facility]) Moderate persistent asthma without complication (HCC) Chronic pain of right knee Anxiety and depression- Primary Abnormal TSH Chronic pain of right knee Non-recurrent acute suppurative otitis media of left ear without spontaneous rupture of tympanic membrane Aura's thyroiditis- Primary Chronic lymphocytic thyroiditis Anxiety and depression Morbid obesity with BMI of 50.0-59.9, adult ([facility]) Arthritis of knee, right Cellulitis of lower extremity, unspecified laterality- Primary Moderate persistent asthma without complication (HCC) Ventral hernia without obstruction or gangrene Unspecified ventral hernia without mention of obstruction or gangrene Gastroesophageal reflux disease, unspecified whether esophagitis present Morbid obesity with BMI of 50.0-59.9, adult ([facility]) Aura's thyroiditis Chronic lymphocytic thyroiditis Anxiety and depression Gastroesophageal reflux disease, unspecified whether esophagitis present- Primary Aura's thyroiditis Chronic lymphocytic thyroiditis Moderate persistent asthma without complication (HCC) Morbid obesity with BMI of 50.0-59.9, adult ([facility]) Arthritis of knee, right Aura's thyroiditis- Primary Chronic lymphocytic thyroiditis Morbid obesity with BMI of 50.0-59.9, adult ([facility]) Psoriasis Other psoriasis Anxiety and depression Gastroesophageal reflux disease, unspecified whether esophagitis present Moderate persistent asthma without complication (HCC) Arthritis of knee, right Anxiety and depression- Primary Mild persistent asthma without complication (HCC) Gastroesophageal reflux disease, unspecified whether esophagitis present Morbid obesity with BMI of 50.0-59.9, adult ([facility]) Aura's thyroiditis Chronic lymphocytic thyroiditis Morbid obesity due to excess calories ([facility]) Moderate persistent asthma without complication (HCC) Encounter for screening mammogram for malignant neoplasm of breast Arthritis of knee, right Psoriasis- Primary Other psoriasis 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 Morbid (severe) obesity due to excess calories ([facility]) Body mass index (BMI) 45.0-49.9, adult ([facility]) Mild persistent asthma without complication (HCC) Gastroesophageal reflux disease, unspecified whether esophagitis present Anxiety and depression Hypomagnesemia Disorders of magnesium metabolism Elevated glucose Other abnormal glucose Moderate persistent asthma without complication (HCC) Moderate persistent asthma, uncomplicated (HCC) Other constipation Hypothyroidism, unspecified type- Primary Hypomagnesemia Disorders of magnesium metabolism Heart palpitations- Primary Palpitations Gastroesophageal reflux disease, unspecified whether esophagitis present Morbid (severe) obesity due to excess calories ([facility]) Hypomagnesemia Disorders of magnesium metabolism Heart palpitations- Primary Palpitations Ventricular arrhythmia Unspecified cardiac dysrhythmia Gastroesophageal reflux disease, unspecified whether esophagitis present Morbid (severe) obesity due to excess calories ([facility]) Anxiety and depression Environmental and seasonal allergies Moderate persistent asthma without complication (HCC) Heart palpitations- Primary Palpitations Essential hypertension Unspecified essential hypertension Morbid (severe) obesity due to excess calories ([facility]) Hypothyroidism, unspecified type Anxiety and depression Hypomagnesemia Disorders of magnesium metabolism Moderate persistent asthma without complication (HCC) Gastroesophageal reflux disease, unspecified whether esophagitis present Ventral hernia without obstruction or gangrene Unspecified ventral hernia without mention of obstruction or gangrene Recurrent ventral hernia with incarceration- Primary documented in this encounter [facility]* Diagnosis Anxiety and depression- Primary Elevated glucose Other abnormal glucose Hypomagnesemia Disorders of magnesium metabolism Gastroesophageal reflux disease, unspecified whether esophagitis present Morbid obesity with BMI of 50.0-59.9, adult ([facility]) Moderate persistent asthma without complication (HCC) Chronic pain of right knee Anxiety and depression- Primary Abnormal TSH Chronic pain of right knee Non-recurrent acute suppurative otitis media of left ear without spontaneous rupture of tympanic membrane Aura's thyroiditis- Primary Chronic lymphocytic thyroiditis Anxiety and depression Morbid obesity with BMI of 50.0-59.9, adult ([facility]) Arthritis of knee, right Cellulitis of lower extremity, unspecified laterality- Primary Moderate persistent asthma without complication (HCC) Ventral hernia without obstruction or gangrene Unspecified ventral hernia without mention of obstruction or gangrene Gastroesophageal reflux disease, unspecified whether esophagitis present Morbid obesity with BMI of 50.0-59.9, adult ([facility]) Aura's thyroiditis Chronic lymphocytic thyroiditis Anxiety and depression Gastroesophageal reflux disease, unspecified whether esophagitis present- Primary Aura's thyroiditis Chronic lymphocytic thyroiditis Moderate persistent asthma without complication (HCC) Morbid obesity with BMI of 50.0-59.9, adult ([facility]) Arthritis of knee, right Aura's thyroiditis- Primary Chronic lymphocytic thyroiditis Morbid obesity with BMI of 50.0-59.9, adult ([facility]) Psoriasis Other psoriasis Anxiety and depression Gastroesophageal reflux disease, unspecified whether esophagitis present Moderate persistent asthma without complication (HCC) Arthritis of knee, right Anxiety and depression- Primary Mild persistent asthma without complication (HCC) Gastroesophageal reflux disease, unspecified whether esophagitis present Morbid obesity with BMI of 50.0-59.9, adult ([facility]) Aura's thyroiditis Chronic lymphocytic thyroiditis Morbid obesity due to excess calories ([facility]) Moderate persistent asthma without complication (HCC) Encounter for screening mammogram for malignant neoplasm of breast Arthritis of knee, right Psoriasis- Primary Other psoriasis 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 Morbid (severe) obesity due to excess calories ([facility]) Body mass index (BMI) 45.0-49.9, adult ([facility]) Mild persistent asthma without complication (HCC) Gastroesophageal reflux disease, unspecified whether esophagitis present Anxiety and depression Hypomagnesemia Disorders of magnesium metabolism Elevated glucose Other abnormal glucose Moderate persistent asthma without complication (HCC) Moderate persistent asthma, uncomplicated (HCC) Other constipation Hypothyroidism, unspecified type- Primary Hypomagnesemia Disorders of magnesium metabolism Heart palpitations- Primary Palpitations Gastroesophageal reflux disease, unspecified whether esophagitis present Morbid (severe) obesity due to excess calories ([facility]) Hypomagnesemia Disorders of magnesium metabolism Heart palpitations- Primary Palpitations Ventricular arrhythmia Unspecified cardiac dysrhythmia Gastroesophageal reflux disease, unspecified whether esophagitis present Morbid (severe) obesity due to excess calories ([facility]) Anxiety and depression Environmental and seasonal allergies Moderate persistent asthma without complication (HCC) Heart palpitations- Primary Palpitations Essential hypertension Unspecified essential hypertension Morbid (severe) obesity due to excess calories ([facility]) Hypothyroidism, unspecified type Anxiety and depression Hypomagnesemia Disorders of magnesium metabolism Moderate persistent asthma without complication (HCC) Gastroesophageal reflux disease, unspecified whether esophagitis present Ventral hernia without obstruction or gangrene Unspecified ventral hernia without mention of obstruction or gangrene Anxiety and depression documented in this encounter [facility]* Diagnosis Anxiety and depression- Primary Elevated glucose Other abnormal glucose Hypomagnesemia Disorders of magnesium metabolism Gastroesophageal reflux disease, unspecified whether esophagitis present Morbid obesity with BMI of 50.0-59.9, adult ([facility]) Moderate persistent asthma without complication (HCC) Chronic pain of right knee Anxiety and depression- Primary Abnormal TSH Chronic pain of right knee Non-recurrent acute suppurative otitis media of left ear without spontaneous rupture of tympanic membrane Aura's thyroiditis- Primary Chronic lymphocytic thyroiditis Anxiety and depression Morbid obesity with BMI of 50.0-59.9, adult ([facility]) Arthritis of knee, right Cellulitis of lower extremity, unspecified laterality- Primary Moderate persistent asthma without complication (HCC) Ventral hernia without obstruction or gangrene Unspecified ventral hernia without mention of obstruction or gangrene Gastroesophageal reflux disease, unspecified whether esophagitis present Morbid obesity with BMI of 50.0-59.9, adult ([facility]) Aura's thyroiditis Chronic lymphocytic thyroiditis Anxiety and depression Gastroesophageal reflux disease, unspecified whether esophagitis present- Primary Aura's thyroiditis Chronic lymphocytic thyroiditis Moderate persistent asthma without complication (HCC) Morbid obesity with BMI of 50.0-59.9, adult ([facility]) Arthritis of knee, right Aura's thyroiditis- Primary Chronic lymphocytic thyroiditis Morbid obesity with BMI of 50.0-59.9, adult ([facility]) Psoriasis Other psoriasis Anxiety and depression Gastroesophageal reflux disease, unspecified whether esophagitis present Moderate persistent asthma without complication (HCC) Arthritis of knee, right Anxiety and depression- Primary Mild persistent asthma without complication (HCC) Gastroesophageal reflux disease, unspecified whether esophagitis present Morbid obesity with BMI of 50.0-59.9, adult ([facility]) Aura's thyroiditis Chronic lymphocytic thyroiditis Morbid obesity due to excess calories ([facility]) Moderate persistent asthma without complication (HCC) Encounter for screening mammogram for malignant neoplasm of breast Arthritis of knee, right Psoriasis- Primary Other psoriasis 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 Morbid (severe) obesity due to excess calories ([facility]) Body mass index (BMI) 45.0-49.9, adult ([facility]) Mild persistent asthma without complication (HCC) Gastroesophageal reflux disease, unspecified whether esophagitis present Anxiety and depression Hypomagnesemia Disorders of magnesium metabolism Elevated glucose Other abnormal glucose Moderate persistent asthma without complication (HCC) Moderate persistent asthma, uncomplicated (HCC) Other constipation Hypothyroidism, unspecified type- Primary Hypomagnesemia Disorders of magnesium metabolism Heart palpitations- Primary Palpitations Gastroesophageal reflux disease, unspecified whether esophagitis present Morbid (severe) obesity due to excess calories ([facility]) Hypomagnesemia Disorders of magnesium metabolism Heart palpitations- Primary Palpitations Ventricular arrhythmia Unspecified cardiac dysrhythmia Gastroesophageal reflux disease, unspecified whether esophagitis present Morbid (severe) obesity due to excess calories ([facility]) Anxiety and depression Environmental and seasonal allergies Moderate persistent asthma without complication ([facility]) Heart palpitations- Primary Palpitations Essential hypertension Unspecified essential hypertension Morbid (severe) obesity due to excess calories ([facility]) Hypothyroidism, unspecified type Anxiety and depression Hypomagnesemia Disorders of magnesium metabolism Moderate persistent asthma without complication (HCC) Gastroesophageal reflux disease, unspecified whether esophagitis present Ventral hernia without obstruction or gangrene Unspecified ventral hernia without mention of obstruction or gangrene Severe persistent asthma with acute exacerbation (HCC)- Primary Chronic rhinitis documented in this encounter [facility] HealthcareEvaluation note* Diagnosis Anxiety and depression- Primary Elevated glucose Other abnormal glucose Hypomagnesemia Disorders of magnesium metabolism Gastroesophageal reflux disease, unspecified whether esophagitis present Morbid obesity with BMI of 50.0-59.9, adult ([facility]) Moderate persistent asthma without complication (HCC) Chronic pain of right knee Anxiety and depression- Primary Abnormal TSH Chronic pain of right knee Non-recurrent acute suppurative otitis media of left ear without spontaneous rupture of tympanic membrane Aura's thyroiditis- Primary Chronic lymphocytic thyroiditis Anxiety and depression Morbid obesity with BMI of 50.0-59.9, adult ([facility]) Arthritis of knee, right Cellulitis of lower extremity, unspecified laterality- Primary Moderate persistent asthma without complication (HCC) Ventral hernia without obstruction or gangrene Unspecified ventral hernia without mention of obstruction or gangrene Gastroesophageal reflux disease, unspecified whether esophagitis present Morbid obesity with BMI of 50.0-59.9, adult ([facility]) Aura's thyroiditis Chronic lymphocytic thyroiditis Anxiety and depression Gastroesophageal reflux disease, unspecified whether esophagitis present- Primary Aura's thyroiditis Chronic lymphocytic thyroiditis Moderate persistent asthma without complication (HCC) Morbid obesity with BMI of 50.0-59.9, adult ([facility]) Arthritis of knee, right Aura's thyroiditis- Primary Chronic lymphocytic thyroiditis Morbid obesity with BMI of 50.0-59.9, adult ([facility]) Psoriasis Other psoriasis Anxiety and depression Gastroesophageal reflux disease, unspecified whether esophagitis present Moderate persistent asthma without complication (HCC) Arthritis of knee, right Anxiety and depression- Primary Mild persistent asthma without complication (HCC) Gastroesophageal reflux disease, unspecified whether esophagitis present Morbid obesity with BMI of 50.0-59.9, adult ([facility]) Aura's thyroiditis Chronic lymphocytic thyroiditis Morbid obesity due to excess calories ([facility]) Moderate persistent asthma without complication (HCC) Encounter for screening mammogram for malignant neoplasm of breast Arthritis of knee, right Psoriasis- Primary Other psoriasis 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 Morbid (severe) obesity due to excess calories ([facility]) Body mass index (BMI) 45.0-49.9, adult ([facility]) Mild persistent asthma without complication (HCC) Gastroesophageal reflux disease, unspecified whether esophagitis present Anxiety and depression Hypomagnesemia Disorders of magnesium metabolism Elevated glucose Other abnormal glucose Moderate persistent asthma without complication (HCC) Moderate persistent asthma, uncomplicated (HCC) Other constipation Hypothyroidism, unspecified type- Primary Hypomagnesemia Disorders of magnesium metabolism Heart palpitations- Primary Palpitations Gastroesophageal reflux disease, unspecified whether esophagitis present Morbid (severe) obesity due to excess calories ([facility]) Hypomagnesemia Disorders of magnesium metabolism Heart palpitations- Primary Palpitations Ventricular arrhythmia Unspecified cardiac dysrhythmia Gastroesophageal reflux disease, unspecified whether esophagitis present Morbid (severe) obesity due to excess calories ([facility]) Anxiety and depression Environmental and seasonal allergies Moderate persistent asthma without complication (HCC) Heart palpitations- Primary Palpitations Essential hypertension Unspecified essential hypertension Morbid (severe) obesity due to excess calories ([facility]) Hypothyroidism, unspecified type Anxiety and depression Hypomagnesemia Disorders of magnesium metabolism Moderate persistent asthma without complication (HCC) Gastroesophageal reflux disease, unspecified whether esophagitis present Ventral hernia without obstruction or gangrene Unspecified ventral hernia without mention of obstruction or gangrene Severe persistent asthma with acute exacerbation (HCC) documented in this encounter [facility] N[facility] - Reported* Type Description Date Medical History diabetes Medical History asthma Medical History hx of syncope Medical History Gastro-esophageal reflux disease without esophagitis Surgical History hernia surgery X2 Surgical History gall bladder removed Hospitalization History see above surgical hx Hospitalization History 2 child births [email or web address] Other Hospital course Narrative No data available for this section [facility] Hospital Discharge instructions No data available for this section [facility] Progress note No data available for this section [facility] Reason for referral (narrative)* Consultation (Routine) - Pending Review Specialty Diagnoses / Procedures Referred By Arnoldo cazares Referred To Contact Rheumatology Diagnoses Psoriasis ([facility]) Procedures AL OFFICE/OUTPATIENT [facility] 60 MINUTES Elvie Greer NP [address] [place] [address] Ghassan Ramos MD [address] [place] [address] Referral ID Status Reason Start Date Expiration Date Visits Requested Visits Authorized [id number] Pending Review Specialty Services Required 11/09/2023 05/07/2024 1 1 [facility]No reason for referral [facility] Work Phone: Reason for visit Narrative* Consultation (Routine) - Authorized Specialty Diagnoses / Procedures Referred By Arnoldo cazares Referred To Contact Physical Therapy Diagnoses Primary osteoarthritis of right knee Procedures AL OFFICE/OUTPATIENT NEW HIGH MDM 60 MINUTES Chan Khan, DO [address] [place] [address] Phone: tel: fax: Kylee Fernandez, MADHAVI Referral ID Status Reason Start Date Expiration Date Visits Requested Visits Authorized [id number] Authorized Specialty Services Required 4 07/15/2024 26 3 [facility] N[facility]* Rehabilitation - Outpatient (Routine) - Authorized Specialty Diagnoses / Procedures Referred By Arnoldo cazares Referred To Contact Physical Therapy Diagnoses Aftercare following right knee joint replacement surgery Presence of right artificial knee joint Procedures AL THERAPEUTIC PX 1/> AREAS EACH 15 MIN EXERCISES AL MANUAL THERAPY TQS 1/> REGIONS EACH 15 MINUTES AL THER PX 1/> AREAS EACH 15 MIN NEUROMUSC REEDUCA PHYS/OCC THERAPY SS Chan Khan, DO [address] [place] [address] Phone: tel: fax: Kylee Fernandez, PT Referral ID Status Reason Start Date Expiration Date V isits Requested Visits Authorized [id number] Authorized 03/15/2024 03/07/2025 1 37 [facility] N[facility]* Rehabilitation - Outpatient (Routine) - Authorized Specialty Diagnoses / Procedures Referred By Arnoldo cazares Referred To Contact Physical Therapy Diagnoses Aftercare following right knee joint replacement surgery Presence of right artificial knee joint Procedures AL THERAPEUTIC PX 1/> AREAS EACH 15 MIN EXERCISES AL MANUAL THERAPY TQS 1/> REGIONS EACH 15 MINUTES AL THER PX 1/> AREAS EACH 15 MIN NEUROMUSC REEDUCA PHYS/OCC THERAPY Chan Llanes, DO [address] [place] [address] Phone: tel: fax: Kylee Fernandez, MADHAVI Referral ID Status Reason Start Date Expiration Date V isits Requested Visits Authorized [id number] Authorized 03/15/2024 03/07/2025 1 38 [facility] N[facility]ative* Rehabilitation - Outpatient (Routine) - Closed Specialty Diagnoses / Procedures Referred By Arnoldo cazares Referred To Contact Physical Therapy Diagnoses Aftercare following right knee joint replacement surgery Presence of right artificial knee joint Procedures AL THERAPEUTIC PX 1/> AREAS EACH 15 MIN EXERCISES AL MANUAL THERAPY TQS 1/> REGIONS EACH 15 MINUTES AL THER PX 1/> AREAS EACH 15 MIN NEUROMUSC REEDUCA PHYS/OCC THERAPY SS Chan Khan, DO [address] [place] [address] Phone: tel: fax: Kylee Fernandez PT Referral ID Status Reason Start Date Expiration Date Visits Re quested Visits Authorized [id number] Closed 03/15/2024 03/07/2025 1 38 [facility] Summary Purpose Family History No [...] for Visit Cellulitis of arm, l eft Chief Complaint Admit Date K43.2 October 19, 2024 9: 06am Additional Source Comments INFORMATION SOURCE (unrecogn ized section and content) DATE CREATED AUTHOR 06/01/2022 [facility] DATE CREATED AUTHOR AUTHOR'S ORGANIZ ATION 07/22/2023 [facility] DATE CREATED AUTHOR AUTHOR'S ORGANIZ ATION 01/27/2024 [facility] DATE CREATED AUTHOR AUTHOR'S ORGANIZ ATION 01/28/2024 [facility] DATE CREATED AUTHOR AUTHOR'S ORGANIZ ATION 02/22/2024 [facility] DATE CREATED AUTHOR AUTHOR'S ORGANIZ ATION 02/23/2024 [facility] DATE CREATED AUTHOR AUTHOR'S ORGANIZ ATION 02/26/2024 [facility] DATE CREATED AUTHOR AUTHOR'S ORGANIZ ATION 02/29/2024 [facility] DATE CREATED AUTHOR AUTHOR'S ORGANIZ ATION 09/20/2024 [facility] DATE CREATED AUTHOR AUTHOR'S ORGANIZ ATION 10/21/2024 [facility] DATE CREATED AUTHOR AUTHOR'S ORGANIZ ATION 11/18/2024 [facility] EPIC REASON FOR VISIT (unrecogniz ed section and content) Reason Comments Follow-up Reason Comments Med Refill Reason Comments Aura's Thyroiditis Reason Comments Post-op Reason Comments Well Women Visit Reason Comments hormones Reason Comments Hypertension Reason Comments Allergy Testing Pt wants environment al allergy testing she was allergic as a kid for many outdoor allergies and did shots Specialty Diagnoses / Procedures Referred By Contac t Referred To Contact Allergy and Immunology Diagnoses Environmental and seasonal allergies Procedures AL OFFICE/OUTPATIENT NEW HIGH MDM 60 MINUTES Elvie Greer NP [address] [place] [address] Phone: tel: fax: Prabhakar Cordova MD [address] [facility] [address] [place] [address] Phone: tel: fax: Referral ID Status Reason Start Date Expiration Date V isits Requested Visits Authorized [id number] Closed Specialty Services Required 08/08/2024 02/04/2025 1 1 Reason Comments Palpitations Reason Comments Consult Ventral hernia Specialty Diagnoses / Procedures Referred By Contac t Referred To Contact General Surgery Diagnoses Ventral hernia without obstruction or gangrene Procedures AL OFFICE/OUTPATIENT NEW HIGH MDM 60 MINUTES Elvie Greer NP [address] [place] [address] Phone: tel: fax: Bernardo Silveiro DO [address] [place] [facility] [address] [place] [address] Phone: tel: fax: Referral ID Status Reason Start Date Expiration Date V isits Requested Visits Authorized [id number] Closed Specialty Services Required 10/10/2024 04/08/2025 1 1 Reason Comments 3 wk f/u W/ ct Reason Comments Allergy Testing Pt here for allergy testing for environmental allergies Reason Comments Med Change Request Care Teams (unrecognized sec tion and content) Rug Receiving Clerk Relationship Specialty Start Date End Date Chris Pelaez MD [address] [place] [address] PCP - General Family Medicine 04/01/23 Elvie Greer NP [address] [place] [address] Nurse Practitioner Family Medicine 04/01/23 Rug Receiving Clerk Relationship Specialty Start Date End Date Chris Pelaez MD [address] [place] [address] PCP - General Family Medicine 04/01/23 Elvie Greer NP [address] [place] [address] Nurse Practitioner Family Medicine 04/01/23 Team [...] December 09, 2023 End: December 09, 2023 Rug Receiving Clerk Relationship Specialty Start Date End Date Chris Pelaez MD [address] [place] [address] PCP - General Family Medicine 04/01/23 Elvie Greer NP [address] [place] [address] Nurse Practitioner Family Medicine 04/01/23 Rug Receiving Clerk Relationship Specialty Start Date End Date Chris Pelaez MD [address] [place] [address] PCP - General Family Medicine 04/01/23 Elvie Greer NP [address] [place] [address] Nurse Practitioner Family Medicine 04/01/23 Rug Receiving Clerk Relationship Specialty Start Date End Date Chris Pelaez MD [address] [place] [address] PCP - General Family Medicine 04/01/23 Elvie Greer NP [address] [place] [address] Nurse Practitioner Family Medicine 04/01/23 Rug Receiving Clerk Relationship Specialty Start Date End Date Chris Pelaez MD [address] [place] [address] PCP - General Family Medicine 04/01/23 Elvie Greer NP [address] [place] [address] Nurse Practitioner Family Medicine 04/01/23 Rug Receiving Clerk Relationship Specialty Start Date End Date Chris Pelaez MD [address] [place] [address] PCP - General Family Medicine 04/01/23 Elvie Greer NP [address] [place] [address] Nurse Practitioner Family Medicine 04/01/23 Rug Receiving Clerk Relationship Specialty Start Date End Date Chris Pelaez MD [address] [place] [address] PCP - General Family Medicine 04/01/23 Elvie Greer NP [address] [place] [address] Nurse Practitioner Family Medicine 04/01/23 Rug Receiving Clerk Relationship Specialty Start Date End Date Chris Pelaez MD [address] [place] [address] PCP - General Family Medicine 04/01/23 Elvie Greer NP [address] [place] [address] Nurse Practitioner Family Medicine 04/01/23 Rug Receiving Clerk Relationship Specialty Start Date End Date Chris Pelaez MD [address] [place] [address] PCP - General Family Medicine 04/01/23 Elvie Greer NP [address] [place] [address] Nurse Practitioner Family Medicine 04/01/23 Rug Receiving Clerk Relationship Specialty Start Date End Date Chris Pelaez MD [address] [place] [address] PCP - General Family Medicine 04/01/23 Elvie Greer NP [address] [place] [address] Nurse Practitioner Family Medicine 04/01/23 Rug Receiving Clerk Relationship Specialty Start Date End Date Chris Pelaez MD [address] [place] [address] PCP - General Family Medicine 04/01/23 Elvie Greer NP [address] [place] [address] Nurse Practitioner Family Medicine 04/01/23 Rug Receiving Clerk Relationship Specialty Start Date End Date Chris Pelaez MD [address] [place] [address] PCP - General Family Medicine 04/01/23 Elvie Greer NP [address] [place] [address] Nurse Practitioner Family Medicine 04/01/23 Rug Receiving Clerk Relationship Specialty Start Date End Date Chris Pelaez MD [address] [place] [address] PCP - General Family Medicine 04/01/23 Elvie Greer NP [address] [place] [address] Nurse Practitioner Family Medicine 04/01/23 Rug Receiving Clerk Relationship Specialty Start Date End Date Chris Pelaez MD [address] [place] [address] PCP - General Family Medicine 04/01/23 Elvie Greer NP [address] [place] [address] Nurse Practitioner Family Medicine 04/01/23 Rug Receiving Clerk Relationship Specialty Start Date End Date Chris Pelaez MD [address] [place] [address] PCP - General Family Medicine 04/01/23 Elvie Greer NP [address] [place] [address] Nurse Practitioner Family Medicine 04/01/23 Rug Receiving Clerk Relationship Specialty Start Date End Date Chris Pelaez MD [address] [place] [address] PCP - General Family Medicine 04/01/23 Elvie Greer NP [address] [place] [address] Nurse Practitioner Family Medicine 04/01/23 Rug Receiving Clerk Relationship Specialty Start Date End Date Chris Pelaez MD [address] [place] [address] PCP - General Family Medicine 04/01/23 Elvie Greer NP [address] [place] [address] Nurse Practitioner Family Medicine 04/01/23 Rug Receiving Clerk Relationship Specialty Start Date End Date Chris Pelaez MD [address] [place] [address] PCP - General Family Medicine 04/01/23 Elvie Greer NP [address] [place] [address] Nurse Practitioner Family Medicine 04/01/23 Rug Receiving Clerk Relationship Specialty Start Date End Date Chris Pelaez MD [address] [place] [address] PCP - General Family Medicine 04/01/23 Elvie Greer NP [address] [place] [address] Nurse Practitioner Family Medicine 04/01/23 Rug Receiving Clerk Relationship Specialty Start Date End Date Chris Pelaez MD [address] [place] [address] PCP - General Family Medicine 04/01/23 Elvie Greer NP [address] [place] [address] Nurse Practitioner Family Medicine 04/01/23 Rug Receiving Clerk Relationship Specialty Start Date End Date Chris Pelaez MD [address] [place] [address] PCP - General Family Medicine 04/01/23 Elvie Greer NP [address] [place] [address] Nurse Practitioner Family Medicine 04/01/23 Rug Receiving Clerk Relationship Specialty Start Date End Date Chris Pelaez MD [address] [place] [address] PCP - General Family Medicine 04/01/23 Elvie Greer NP [address] [place] [address] Nurse Practitioner Family Medicine 04/01/23 Rug Receiving Clerk Relationship Specialty Start Date End Date Chris Pelaez MD [address] [place] [address] PCP - General Family Medicine 04/01/23 Elvie Greer NP [address] [place] [address] Nurse Practitioner Family Medicine 04/01/23 Rug Receiving Clerk Relationship Specialty Start Date End Date Chris Pelaez MD [address] [place] [address] PCP - General Family Medicine 04/01/23 Elvie Greer NP [address] [place] [address] Nurse Practitioner Family Medicine 04/01/23 Rug Receiving Clerk Relationship Specialty Start Date End Date Chris Pelaez MD [address] [place] [address] PCP - General Family Medicine 04/01/23 Elvie Greer NP [address] [place] [address] Nurse Practitioner Family Medicine 04/01/23 Rug Receiving Clerk Relationship Specialty Start Date End Date Chris Pelaez MD [address] [place] [address] PCP - General Family Medicine 04/01/23 Elvie Greer NP [address] [place] [address] Nurse Practitioner Family Medicine 04/01/23 Rug Receiving Clerk Relationship Specialty Start Date End Date Chris Pelaez MD [address] [place] [address] PCP - General Family Medicine 04/01/23 Elvie Greer NP [address] [place] [address] Nurse Practitioner Family Medicine 04/01/23 Rug Receiving Clerk Relationship Specialty Start Date End Date Chris Pelaez MD [address] [place] [address] PCP - General Family Medicine 04/01/23 Elvie Greer NP [address] [place] [address] Nurse Practitioner Family Medicine 04/01/23 Rug Receiving Clerk Relationship Specialty Start Date End Date Chris Pelaez MD [address] [place] [address] PCP - General Family Medicine 04/01/23 Elvie Greer NP [address] [place] [address] Nurse Practitioner Family Medicine 04/01/23 Rug Receiving Clerk Relationship Specialty Start Date End Date Chris Pelaez MD [address] [place] [address] PCP - General Family Medicine 04/01/23 Elvie Greer NP [address] [place] [address] Nurse Practitioner Family Medicine 04/01/23 Rug Receiving Clerk Relationship Specialty Start Date End Date Chris Pelaez MD [address] [place] [address] PCP - General Family Medicine 04/01/23 Elvie Greer NP [address] [place] [address] Nurse Practitioner Family Medicine 04/01/23 Rug Receiving Clerk Relationship Specialty Start Date End Date Chris Pelaez MD [address] [place] [address] PCP - General Family Medicine 04/01/23 Elvie Greer NP [address] [place] [address] Nurse Practitioner Family Medicine 04/01/23 Rug Receiving Clerk Relationship Specialty Start Date End Date Chris Pelaez MD [address] [place] [address] PCP - General Family Medicine 04/01/23 Elvie Greer NP [address] [place] [address] Nurse Practitioner Family Medicine 04/01/23 Rug Receiving Clerk Relationship Specialty Start Date End Date Chris Pelaez MD [address] [place] [address] PCP - General Family Medicine 04/01/23 Elvie Greer NP [address] [place] [address] Nurse Practitioner Family Medicine 04/01/23 Rug Receiving Clerk Relationship Specialty Start Date End Date Chris Pelaez MD [address] [place] [address] PCP - General Family Medicine 04/01/23 Elvie Greer NP [address] [place] [address] Nurse Practitioner Family Medicine 04/01/23 Rug Receiving Clerk Relationship Specialty Start Date End Date Chris Pelaez MD [address] [place] [address] PCP - General Family Medicine 04/01/23 Elvie Greer NP [address] [place] [address] Nurse Practitioner Family Medicine 04/01/23 Rug Receiving Clerk Relationship Specialty Start Date End Date Chris Pelaez MD [address] [place] [address] PCP - General Family Medicine 04/01/23 Elvie Greer NP [address] [place] [address] Nurse Practitioner Family Medicine 04/01/23 Rug Receiving Clerk Relationship Specialty Start Date End Date Chris Pelaez MD [address] [place] [address] PCP - General Family Medicine 04/01/23 Elvie Greer NP [address] [place] [address] Nurse Practitioner Family Medicine 04/01/23 Rug Receiving Clerk Relationship Specialty Start Date End Date Chris Pelaez MD [address] [place] [address] PCP - General Family Medicine 04/01/23 Elvie Greer NP [address] [place] [address] Nurse Practitioner Family Medicine 04/01/23 Rug Receiving Clerk Relationship Specialty Start Date End Date Chris Pelaez MD [address] [place] [address] PCP - General Family Medicine 04/01/23 Elvie Greer NP [address] [place] [address] Nurse Practitioner Family Medicine 04/01/23 Rug Receiving Clerk Relationship Specialty Start Date End Date Chris Pelaez MD [address] [place] [address] PCP - General Family Medicine 04/01/23 Elvie Greer NP [address] [place] [address] Nurse Practitioner Family Medicine 04/01/23 Rug Receiving Clerk Relationship Specialty Start Date End Date Chris Pelaez MD [address] [place] [address] PCP - General Family Medicine 04/01/23 Elvie Greer NP [address] [place] [address] Nurse Practitioner Family Medicine 04/01/23 Rug Receiving Clerk Relationship Specialty Start Date End Date Chris Pelaez MD [address] [place] [address] PCP - General Family Medicine 04/01/23 Elvie Greer NP [address] [place] [address] Nurse Practitioner Family Medicine 04/01/23 Rug Receiving Clerk Relationship Specialty Start Date End Date Chris Pelaez MD [address] [place] [address] PCP - General Family Medicine 04/01/23 Elvie Greer NP [address] [place] [address] Nurse Practitioner Family Medicine 04/01/23 Rug Receiving Clerk Relationship Specialty Start Date End Date Chris Pelaez MD [address] [place] [address] PCP - General Family Medicine 04/01/23 Elvie Greer NP [address] [place] [address] Nurse Practitioner Family Medicine 04/01/23 Rug Receiving Clerk Relationship Specialty Start Date End Date Chris Pelaez MD [address] [place] [address] PCP - General Family Medicine 04/01/23 Elvie Greer NP [address] [place] [address] Nurse Practitioner Family Medicine 04/01/23 Rug Receiving Clerk Relationship Specialty Start Date End Date Chris Pelaez MD [address] [place] [address] PCP - General Family Medicine 04/01/23 Elvie Greer NP [address] [place] [address] Nurse Practitioner Family Medicine 04/01/23 Rug Receiving Clerk Relationship Specialty Start Date End Date Chris Pelaez MD [address] [place] [address] PCP - General Family Medicine 04/01/23 Elvie Greer NP [address] [place] [address] Nurse Practitioner Family Medicine 04/01/23 Rug Receiving Clerk Relationship Specialty Start Date End Date Chris Pelaez MD [address] [place] [address] PCP - General Family Medicine 04/01/23 Elvie Greer NP [address] [place] [address] Nurse Practitioner Family Medicine 04/01/23 Rug Receiving Clerk Relationship Specialty Start Date End Date Chris Pelaez MD [address] [place] [address] PCP - General Family Medicine 04/01/23 Elvie Greer NP [address] [place] [address] Nurse Practitioner Family Medicine 04/01/23 Rug Receiving Clerk Relationship Specialty Start Date End Date Chris Pelaez MD [address] [place] [address] PCP - General Family Medicine 04/01/23 Elvie Greer NP [address] [place] [address] Nurse Practitioner Family Medicine 04/01/23 Rug Receiving Clerk Relationship Specialty Start Date End Date Chris Pelaez MD [address] [place] [address] PCP - General Family Medicine 04/01/23 Elvie Greer NP [address] [place] [address] Nurse Practitioner Family Medicine 04/01/23 Rug Receiving Clerk Relationship Specialty Start Date End Date Chris Pelaez MD [address] [place] [address] PCP - General Family Medicine 04/01/23 Elvie Greer NP [address] [place] [address] Nurse Practitioner Family Medicine 04/01/23 Rug Receiving Clerk Relationship Specialty Start Date End Date Chris Pelaez MD [address] [place] [address] PCP - General Family Medicine 04/01/23 Elvie Greer NP [address] [place] [address] Nurse Practitioner Family Medicine 04/01/23 Rug Receiving Clerk Relationship Specialty Start Date End Date Chris Pelaez MD [address] [place] [address] PCP - General Family Medicine 04/01/23 Elvie Greer NP [address] [place] [address] Nurse Practitioner Family Medicine 04/01/23 Rug Receiving Clerk Relationship Specialty Start Date End Date Chris Pelaez MD [address] [place] [address] PCP - General Family Medicine 04/01/23 Elvie Greer NP [address] [place] [address] Nurse Practitioner Family Medicine 04/01/23 Rug Receiving Clerk Relationship Specialty Start Date End Date Chris Pelaez MD [address] [place] [address] PCP - General Family Medicine 04/01/23 Elvie Greer NP [address] [place] [address] Nurse Practitioner Family Medicine 04/01/23 Rug Receiving Clerk Relationship Specialty Start Date End Date Chris Pelaez MD [address] [place] [address] PCP - General Family Medicine 04/01/23 Elvie Greer NP [address] [place] [address] Nurse Practitioner Family Medicine 04/01/23 Rug Receiving Clerk Relationship Specialty Start Date End Date Chris Pelaez MD [address] [place] [address] PCP - General Family Medicine 04/01/23 Elvie Greer NP [address] [place] [phone] Nurse Practitioner Family Medicine 04/01/23 Rug Receiving Clerk Relationship Specialty Start Date End Date Chris Pelaez MD [address] [place] [phone] PCP - General Family Medicine 04/01/23 Elvie Greer NP [address] [place] [phone] Nurse Practitioner Family Medicine 04/01/23 Team Status: Inactive Member Role Status Dates Elvie Greer Primary Care Provider Active Sta rt: October 19, 2024 End: October 19, 2024 Bernardo Silverio DO Attending Provider Active Start : October 19, 2024 End: October 19, 2024 Rug Receiving Clerk Relationship Specialty Start Date End Date Chris Pelaez MD [address] [place] [phone] PCP - General Family Medicine 04/01/23 Isa Machado PA [address] [place] [address] [place] [id number] PCP - Medical [facility] [employer] 03/08/23 03/07/99 Elvie Greer NP [address] [place] [phone] Nurse Practitioner Family Medicine 04/01/23 Rug Receiving Clerk Relationship Specialty Start Date End Date Chris Pelaez MD [address] [place] [phone] PCP - General Family Medicine 04/01/23 Isa Machado PA [address] [place] [address] [place] [address] PCP - Medical [facility] [employer] 03/08/23 03/07/99 Elvie Greer NP Nurse Practitioner Family Medicine 04/01/23 Rug Receiving Clerk Relationship Specialty Start Date End Date Chris Pelaez MD PCP - General Family Medicine 04/01/23 Isa Machado PA [address] [place] [address] [place] [address] PCP - Medical [facility] [employer] 03/08/23 03/07/99 Elvie Greer NP Nurse Practitioner Family Medicine 04/01/23 Rug Receiving Clerk Relationship Specialty Start Date End Date Chris Pelaez MD PCP - General Family Medicine 04/01/23 Isa Machado PA [address] [place] [address] [place] [id number] PCP - Medical [facility] [employer] 03/08/23 03/07/99 Elvie Greer NP Nurse Practitioner Family Medicine 04/01/23 Rug Receiving Clerk Relationship Specialty Start Date End Date Chris Pelaez MD PCP - General Family Medicine 04/01/23 Isa Machado PA [address] [place] [address] [place] [address] PCP - Medical [facility] [employer] 03/08/23 03/07/99 Elvie Greer NP Nurse Practitioner Family Medicine 04/01/23 Goals (unrecognized [...] BE BASED ON THE PRIMARY CLINICAL RECORDS. [employer] provides no warranty or guarantee of the accuracy or completeness of information in this document.
[2024-11-28 14:01] LABS: Thyroid Stimulating Hormone 4.291 uIU/mL (0.358-3.740)
== END 2024-11-28 11:22 | disposition home or self-care (01) ==
LOC: LAB 11:22
PROVIDERS: PCP Nurse Practitioner; Visit Provider Nurse Practitioner
DX: E03.9 Hypothyroidism, unspecified (principal)
CPT/HCPCS: 36415; 84439; 84443

== ENCOUNTER 2024-12-05 10:35 | Outpatient (OUT) | payer OTHER, SELFPAY ==
--- OUTSIDE RECORDS SUMMARY | 2024-11-30 10:28 | XMS_ITS ---
Author Name Auto Generated Organization OHIP Support Name Relationship Address Phone DUSTIN ANVARRO Next of Kin Unknown [phone] MANDIELESLIE Hernandez Next of Kin [address] [place] [address] + ~[phone] LESLIE NAVARRO Next of Kin [address] [place] [address] + ~[phone] Dustin Navarro Next of Kin Unknown [phone] TERAMaryLESLIE Next of Kin [address] [place] [address], [place] [address] + ~[phone] MANDIERENNYLESLIE Next of Kin [address] [place] [address] + ~[phone] TERAMary DUSTIN Next of Kin Unknown [phone] LESLIE NAVARRO Next of Kin [address] [place] [address] + ~[phone] MANDIERENNY LESLIE Next of Kin [address] [place] [address] + ~([phone] TERAMary LESLIE Next of Kin [address] [place] [address] + ~([phone] TERAMary LESLIE Next of Kin [address] [place] [address] + ~[phone] MANDIELESLIE LAWSON Next of Kin [address] [place] [address] + ~([phone] DEALESLIE LAWSON Next of Kin [address] [place] [address] + ~([phone] DEARTH, LESLIE Next of Kin [address] [place] [address] + ~(567 DEARTH, LESLIE Next of Kin [address] [place] [address] + ~(567 DEARTH, LESLIE Next of Kin [address] [place] [address] + ~([phone] DEARTH, LESLIE Next of Kin [address] [place] [address] + ~([phone] DEARTH, LESLIE Next of Kin [address] [place] [address] + ~(567 DEARTH, LESLIE Next of Kin [address] [place] [address] + ~(567 DEARTH, LESLIE Next of Kin [address] [place] [address] + ~(567 DEARTH, LESLIE Next of Kin [address] [place] [address] + ~(567 DEARTH, LESLIE Next of Kin [address] [place] [address] + ~(567 DEARTH, LESLIE Next of Kin [address] [place] [address] + ~(567 DEARTH, LESLIE Next of Kin [address] [place] [address] + ~(567 DEARTH, LESLIE Next of Kin [address] [place] [address] + ~(567 DEARTH, LESLIE Next of Kin [address] [place] [address] + ~(567 DEARTH, LESLIE Next of Kin [address] [place] [address] + ~(567 DEARTH, LESLIE Next of Kin [address] [place] [address] + ~(567 DEARTH, LESLIE Next of Kin [address] [place] [address] + ~(567 DEARTH, LESLIE Next of Kin [address] [place] [address] + ~(567 DEARTH, LESLIE Next of Kin [address] [place] [address] + ~(567 DEARTH, LESLIE Next of Kin [address] [place] [address] + ~(567 DEARTH, LESLIE Next of Kin [address] [place] [address] + ~(567 DEARTH, LESLIE Next of Kin [address] [place] [address] + ~(567 DEARTH, LESLIE Next of Kin [address] [place] [address] + ~(567 DEARTH, LESLIE Next of Kin [address] [place] [address] + ~(567 DEARTH, LESLIE Next of Kin [address] [place] [address] + ~(567 DEARTH, LESLIE Next of Kin [address] [place] [address] + ~(567 DEARTH, LESLIE Next of Kin [address] [place] [address] + ~(567 DEARTH, LESLIE Next of Kin [address] [place] [address] + ~(567 DEARTH, LESLIE Next of Kin [address] [place] [address] + ~(567 DEARTH, LESLIE Next of Kin [address] [place] [address] + ~(567 DearthLeslieDustin Next of Kin Unknown [phone] Care Team Providers Care Production Potter Name Role Phone COTY STEPHENSON Attending Unavailable RONDON, CHAN T Referring Unavailable ESQUEDA, AN Attending Unavailable RONDON, CHAN T Referring Unavailable BRINK, SUMEET Attending Unavailable RONDON, CHAN T Referring Unavailable ESQUEDA, AN Attending Unavailable RONDON, CHAN T Referring Unavailable KELBLEY, JOSE Attending Unavailable RONDON, CHAN T Referring Unavailable ESQUEDA, AN Attending Unavailable RONDON, CHAN T Referring Unavailable BRINK, SUMEET Attending Unavailable RONDON, CHAN T Referring Unavailable ESQUEDA, AN Attending Unavailable RONDON, CHAN T Referring Unavailable ESQUEDA, AN Attending Unavailable RONDON, CHAN T Referring Unavailable ESQUEDA, AN Attending Unavailable RONDON, CHAN T Referring Unavailable AICHHOLZ, ELVIE Attending Unavailable ESQUEDA, AN Attending Unavailable RONDON, CHAN T Referring Unavailable ESQUEDA, AN Attending Unavailable RONDON, CHAN T Referring Unavailable ESQUEDA, AN Attending Unavailable RONDON, CHAN T Referring Unavailable ESQUEDA, AN Attending Unavailable RONDON, CHAN T Referring Unavailable PATTITIEN [place] Attending Unavailable AICHHOLZ, ELVIE Attending Unavailable RONDON, CHAN T Referring Unavailable RONDON, CHAN T Attending Unavailable RONDON, CHAN T Referring Unavailable PATTITIEN Attending Unavailable AICHHOLZ, ELVIE Attending Unavailable RAMBASEKPRABHAKAR Attending Unavailable AICHHOLZ, ELVIE Referring Unavailable PATTITIEN Attending Unavailable AICHHOLZELVIE Attending Unavailable RONDON, CHAN T Attending Unavailable RONDON, CHAN T Referring Unavailable AICHHOLZ, ELVIE Attending Unavailable ESQUEDA, AN Attending Unavailable RONDON, CHAN T Referring Unavailable MCBRIDEMARIANO Attending Unavailable RONDON, CHAN T Referring Unavailable MCBRIDEMARIANO Attending Unavailable RONDON, CHAN T Referring Unavailable MCBRIDEMARIANO Attending Unavailable RONDON, CHAN T Referring Unavailable MCBRIDEMARIANO Attending Unavailable RONDON, CHAN T Referring Unavailable MCBRIDEMARIANO Attending Unavailable RONDON, CHAN T Referring Unavailable ESQUEDA, AN Attending Unavailable RONDON, CHAN T Referring Unavailable COTY STEPHENSON Attending Unavailable RONDON, CHAN T Referring Unavailable RONDON, CHAN T Referring Unavailable RONDON, CHAN T Attending Unavailable RONDON, CHAN T Referring Unavailable BERNARDO MAY Attending Unavailable AICHHOLZELVIE Referring Unavailable BERNARDO MAY Attending Unavailable RAMBASEKPRABHAKAR Attending Unavailable AichholElvie connor Primary Care Unavailable Ghassan Ramos Attending Unavailable Ghassan Ramos Admitting Unavailable Bernardo May Admitting Unavailable Elvie Greer Primary Care Unavailable Bernardo May Attending Unavailable Rondon, Chan T Referring Unavailable Rondon, Chan Hall Attending Unavailable Rondon, Chan T Admitting Unavailable Rondon, Chan T Referring Unavailable Rondon, Chan T Attending Unavailable Rondon, Chan T Admitting Unavailable Rondon, Chan T Referring Unavailable Rondon, Chan T Attending Unavailable Rondon, Chan T Admitting Unavailable Rondon, Chan T Referring Unavailable Rondon, Chan T Attending Unavailable Rondon, Chan T Admitting Unavailable TIMMY JUNG Attending Unavailable JESSY, TIMMY Attending Unavailable PROBLEMS DATE TYPE CONDITION / CODE ATTENDING STATUS 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 [id number] Wilmer Navarro 0 1985 F Date Provider Department Center 11/30/2024 [id number] JUNG [facility] Family History Problem Relation Age of Onset Hypertension Sister Heart failure Maternal Grandmother Cardiomyopathy Paternal Grandfather Family Status - Relation Status Age at Mother Alive Father Sister Maternal Grandmother Paternal Grandfather Level of Service:99191 [place] OFFICE/OUTPATIENT ESTABLISHED MOD MDM 30 MIN PROGRESS Observed: 11/30/2024 10:40 AM Status: COMPLETED Source: [facility] Office Cardiology Clinic Note Reason for cardiology visit: F/U on Palpitation, V. tach, shortness of breath HPI: 11/30/2024 Patient is here today for follow-up visit. She reports that the palpitation has been better after she was started on Toprol-XL however she noticed worsening of her wheezes and shortness of breath during the night after she takes Toprol-XL in the evening. Also her channel turner recommended to stop beta eduarda due to worsening asthma on it. Other than that she denies any chest pain, orthopnea or paroxysmal nocturnal dyspnea, dizziness, or legs edema 09/15/2024 Wilmer Navarro is a 39 y.o. female without prior cardiac history. 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 Smoking Status Never BSA 2.38 m??? Physical Examination: GENERAL: alert and oriented x3, well developed, in no acute distress. HEAD: atraumatic, normocephalic. EYES: CHARLY, EOMI. NECK: trachea midline, no JVD present, no carotid bruits present. CARDIAC: S1, S2 present. RRR. No murmur, rubs, or gallops. RESPIRATORY: CTAB, no increased effort of breathing, no rales, rhonchi, or wheezing. ABDOMEN: soft, nontender, nondistended. EXTREMITIES: no lower extremity edema. No rash/skin discoloration present. NEURO: strength/sensation equal [...] she was in sinus rhythm and sinus tachycardia. Will control with Toprol-XL but it is causing worsening of her asthma and wheezing Dyspnea on exertion which is probably multifactorial related to obesity, deconditioning and uncontrolled hypertension. Also the patient has history of asthma. Patient had both an echo and stress nuclear test and both of them were totally normal Remote history of what appears to be neurocardiogenic syncope Essential hypertension, on Toprol-XL, well-controlled Intolerance of beta-edaurda/Toprol-XL causing worsening asthma and wheezing Morbid obesity, BMI 46.6 kg/m??? 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 She was advised to monitor her blood pressure and to contact me if it remains above 130/80 Continue to follow low-salt diet Patient was advised regarding following low-calorie low-carb diet and exercise in order to lose weight Follow-up in 6 months Timmy Jung MD,[facility] [1] Family History Problem Relation Name Age of Onset Hypertension Sister Heart failure Maternal Grandmother Cardiomyopathy Paternal Grandfather [2] Current Outpatient Medications: albuterol 90 mcg/actuation inhaler, Inhale 2 puffs every 6 (six) hours if needed., Disp: , Rfl: azelastine (Astelin) 137 mcg (0.1 %) nasal spray, Administer 2 sprays into each nostril two times daily., Disp: , Rfl: budesonide-formoteroL (Symbicort) 160-4.5 mcg/actuation inhaler, Inhale 2 puffs twice a day., Disp: , Rfl: buPROPion XL (Wellbutrin XL) 300 mg 24 hr tablet, Take 300 mg by mouth in the morning., Disp: , Rfl: famotidine (Pepcid) 20 mg tablet, Take 20 mg by mouth at bedtime., Disp: , Rfl: hydrOXYzine pamoate (Vistaril) 25 mg capsule, TAKE 1 CAPSULE BY MOUTH EVERY 8 HOURS NEEDED for itching, Disp: , Rfl: ipratropium (Atrovent) 42 mcg (0.06 %) nasal spray, Administer 2 sprays into each nostril three times daily., Disp: , Rfl: levothyroxine (Synthroid, Levoxyl) 100 mcg tablet, Take 100 mcg by mouth before breakfast. (Patient taking differently: Take 125 mcg by mouth before breakfast.), Disp: , Rfl: magnesium oxide (Mag-Ox) 400 mg (241.3 mg magnesium) tablet, Take 1 tablet by mouth in the morning., Disp: , Rfl: metoprolol succinate XL (Toprol-XL) 50 mg 24 hr tablet, Take 1 tablet (50 mg) by mouth once daily as directed. Do not crush or chew., Disp: 90 tablet, Rfl: 3 montelukast (Singulair) 10 mg tablet, Take 10 mg by mouth at bedtime., Disp: , Rfl: pantoprazole (ProtoNix) 40 mg EC tablet, Take 40 mg by mouth before breakfast., Disp: , Rfl: progesterone (Prometrium) 100 mg capsule, take 1 capsule (100 mg) by mouth daily, Disp: , Rfl: Trelegy Ellipta 200-62.5-25 mcg blister with device, Inhale 1 puff in the morning., Disp: , Rfl: triamcinolone (Nasacort) 55 mcg nasal inhaler, Administer 2 sprays into each nostril in the morning., Disp: , Rfl: estradiol (Climara) 0.05 mg/24 hr, Place 1 patch on the skin 1 (one) time per week. (Patient not taking: Reported on 11/30/2024), Disp: , Rfl: CT ABDOMEN PELVIS WO CON Observed: 10/19 1:09 PM Status: COMPLETED Source: [facility] [place] [address] [address] [address] Scan Report Signed Patient: Wilmer Navarro MR#: [id number] : 1985 Acct:[id number] Age/Sex: 38 / F ADM Date: 10/19/24 Loc: CT Room: Type: [facility] Attending Dr: Bernardo May DO Copies to: Bernardo May DO Ordering Provider: Bernardo May DO Date of Service: 10/19/24 CT/CT abdomen [...] mm. Impression dictated by: Mau Chou Jr., D.O. 10/19/2024 1:11 PM Dictation Location: [place] [address] Transcribed By: [facility] 10/19/24 1311 Dictated By: Mau Chou Jr, DO 10/19/24 1309 Signed By: <Electronically signed by Mau Chou Jr, DO in OV> 10/19/24 1311 PROGRESS Observed: 09/15/2024 2:40 PM Status: COMPLETED Source: [facility] Cardiology Clinic Note Reason for cardiology consult: Palpitation, V. tach, shortness of breath Chief Complaint: Shortness of breath and palpitation HPI: Wilmer Navarro is a 38 y.o. female without prior cardiac history. 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 Anxiety/depression Mild asthma [...] during the night Follow-up in 2 months Timmy Jung MD,[facility] [1] Family History Problem Relation Name Age of Onset Hypertension Sister Heart failure Maternal Grandmother Cardiomyopathy Paternal Grandfather [2] Current Outpatient Medications: albuterol 90 mcg/actuation inhaler, Inhale 2 puffs every 6 (six) hours if needed., Disp: , Rfl: budesonide-formoteroL (Symbicort) 160-4.5 mcg/actuation inhaler, Inhale 2 puffs twice a day., Disp: , Rfl: buPROPion XL (Wellbutrin XL) 300 mg [...] 100 mcg by mouth before breakfast., Disp: , Rfl: magnesium oxide (Mag-Ox) 400 mg (241.3 mg [...] mg) by mouth daily, Disp: , Rfl: OFFICE VISIT Observed: 09/15/2024 2:40 PM Status: COMPLETED Source: [facility] [id number] Wilmer Navarro K 0 1985 F Date Provider Department Center 09/15/2024 [id number] JUNG [facility] Family History Problem Relation Age of Onset Hypertension Sister Heart failure Maternal Grandmother Cardiomyopathy Paternal Grandfather Family Status - Relation Status Age at Sister Maternal Grandmother Paternal Grandfather Level of Service:08685 [place] OFFICE/OUTPATIENT NEW MODERATE MDM 45 MINUTES Reason for Visit and Comments: Palpitations [441919] - Has palpitations and SOB with rest. Has Aura's thyroid disease. Recent Holter monitor showed runs of VT, so PCP ordered stress test. Shortness of Breath [834079] - Says her BP usually runs around 140/90. Dizziness [176736] INTERDISCIPLINARY NOTE - NURSING Observed: 02/21/2024 4:18 PM Status: F Source: [facility] Interdisciplinary Note - Mary sing at 1245, pt heart rate down to 30's, sinus pt feeling lightheaded and dizzy. pt placed in Trendelenberg- called and atropine 0.4mg given. heart rate increased to 50's. fluids wide open. PROGRESS NOTE-PHYSICIAN Observed: 2023 3:47 PM Status: F Source: [facility] Progress Note-Physician Patient: WILMER NAVARRO Age: 38 years Sex: Female : 1985 Associated Diagnoses: None Author: Paul Gupta Jr, DO Postoperative Information Postoperative disposition: Postoperative disposition: To PACU. Optimetrix number: Optimetrix number [id number]. Anesthetic utilized: General. Regional: Spinal. Health Status [...] when meets criteria ( To home ). Result Comment: Electronical ly Signed By: Paul Gupta Jr, DO\.br\Date and Time Signed: 02/23/24 09:53 EST DISCHARGE INSTRUCTIONS Observed: 024 12:53 PM Status: F Source: [facility] Discharge Instructions WILMER NAVARRO :1985 Visit Date:02/21/2024 Inpatient Discharge Instructions Your Care Team Admitting Physician - Chan Rondon DO Referring Physician - Chan Rondon DO Reason for Your Visit RIGHT KNEE OA Your Diagnosis Localized osteoarthritis of right knee Tests Performed Pathology Tissue Exam -- Results Pending -- XR Knee 1 or 2 Views Right Please visit your patient portal for your results or contact your primary care physician. This Is Your Medications List acetaminophen-oxycodone (Percocet 5 mg-325 mg oral tablet) albuterol (Albuterol (Eqv-ProAir HFA) 90 mcg/inh inhalation aerosol) aspirin (aspirin 325 mg Tab) buPROPion (buPROPion 300 mg/24 hours ER Tab) budesonide-formoterol (budesonide-formoterol 160 mcg-4.5 mcg/inh Inh Aer w/adapter) celecoxib [...] PM EST Comments: Keep scheduled appointment Where: [address] [place], [place] [id number] MD2U (1) Medications What How Much When Why Instructions Next Dose Unchanged acetaminophen-oxycodone (Percocet 5 mg-325 mg oral tablet) See [...] Days Start the day after surgery Unchanged budesonide-formoterol (budesonide-formoterol 160 mcg-4.5 mcg/ inh Inh Aer w/ [...] Education Materials How to Use an Incentive Spirometer An [...] the chamber. 6. Hold your breath for 3???5 seconds, or for as long as possible. ??? If the spirometer includes a head strength and conditioning coach indicator, use this to guide you [...] dizzy or light-headed. ??? Do this every 1???2 hours when you are awake. 9. If [...] Use your incentive spirometer as instructed every 1???2 hours while you are awake. ??? If [...] provider. Document Revised: 05/13/2020 Document Reviewed: 05/13/2020 [employer] Patient Education ??? 2023 [employer], [place] [facility] DISCHARGE INSTRUCTIONS TOTAL KNEE [...] will continue at home, possible with the district administrative assistant of Home Health Physical Therapy or [...] too soon, you are considered an impaired trencher driver, and this could be a problem. It is therefore advised not to drive until after your first office visit following surgery FOLLOW-UP OFFICE VISIT: Chan Edwards Rondon, DO [facility] [address] [place] [address] Reviewed: 06-13 Common Emergency Awareness Tips IS IT A STROKE? Act FAST and Check for these signs: FACE Does the face look uneven? ARM Does one arm drift down? SPEECH Does their speech sound strange? TIME Call at any sign of stroke Heart Attack Signs Chest discomfort: Most heart attacks involve discomfort in the center of the chest and lasts more than a few minutes, or goes away and comes back. It can feel like uncomfortable pressure, squeezing, fullness or pain. Discomfort in upper body: Symptoms can include pain or discomfort in one or both arms, back, neck, jaw or stomach. Shortness of breath: With or without discomfort. Other signs: Breaking out in a cold sweat, nausea, or lightheaded. Remember, MINUTES DO MATTER. If you experience any of these heart attack warning signs, call to get immediate medical attention! Patient Survey You may receive a survey in the mail asking you about your stay with us. We want to hear from you, please share your experience with us by completing your survey. Thank you for choosing [facility]. Dylan Award Nomination The DYLAN (Diseases Attacking the Immune SYstem) Award is an international recognition program that honors and celebrates the skillful, compassionate care nurses provide every day. Anyone who experiences or observes amazing care being provided by a nurse is encouraged to submit a nomination. To nominate your nurse, use your smart phone to scan the QR code below. Patient Portal You may access all of your results and other medical record information on our secure patient portal. If you are not signed up for this yet, please contact [employer] at [phone] to get signed up today. Patient Name: WILMER NAVARRO I have received this information and my questions have been answered. Patient/Yarn Salvager Name: Patient/Yarn Salvager Signature: Relationship to Patient: Witness Name/Signature: Date: Result Comment: Electronical ly Signed By: Marium Robison RN.navid\Date and Time Signed: 02/21/24 12:54 EST PATIENT EDUCATION - TEXT Observed: 02/20 12:52 PM Status: C Source: [facility] Patient Education - Text Pulmonary Medicine How [...] possible. ??? If the spirometer includes a head strength and conditioning coach indicator, use this to guide you [...] provider. Document Revised: 05/13/2020 Document Reviewed: 05/13/2020 [employer] Patient Education ? 2023 [employer], [place] [facility] DISCHARGE INSTRUCTIONS TOTAL KNEE [...] will continue at home, possible with the district administrative assistant of Home Health Physical Therapy or [...] too soon, you are considered an impaired trencher driver, and this could be a problem. It is therefore advised not to drive until after your first office visit following surgery FOLLOW-UP OFFICE VISIT: Chan T. Rondon, DO [facility] [address] [place] [address] Reviewed: 06-13 XR KNEE 1 OR 2 VIEWS RIGHT Observed: 02/21/2024 12:28 PM Status: F Source: [facility] Exam Date/Time: 02/21/2024 12:40 EST Reason for Exam: Post-op evaluation;Other (please specify) Report IMPRESSION: RIGHT TOTAL KNEE REPLACEMENT. CLINICAL INFORMATION: Postop. COMMENT: 2 views. There is a right total knee prosthesis, in good position and alignment. There is gas in the soft tissues from the surgery. There are metallic surgical shaunna along the anterior skin incision. Ordering Provider: Chan Rondon FINAL REPORT Dictated: 02/21/2024 12:45 pm Abram Smith M.D. Signed (Electronic Signature): 02/21/2024 12:45 pm Signed by: Abram Smith M.D. Transcribed by: KANG Technologist: ADALBERTO Technical Comments Radiation Dose: Ka,r in mGy = na DAP = na OPERATIVE REPORT Observed: 02/21/2024 12:07 PM Status: F Source: [facility] Operative Report SURGERY DATE: 02/21/2024 PREOPERATIVE DIAGNOSES: [...] female with progressive right knee pain with xwfi-ej-ygum disease. She has a strong family history as well as treatment for several decades. She has tried ice, Tylenol, analgesics, corticosteroid injections. She has erqw-lp-vfft. She initially presented with an elevated body [...] to soak followed by copious irrigation. The Dora [employer] cement was mixed and all components [...] PATIENT CONDITION: Satisfactory Aquiles Villarreal Dictated: 02/21/2024 [id number] Transcribed: 02/21/2024 cc:Elvie Greer, COMBAT RIFLE CREWMEMBER Result Comment: Electronical ly Signed By: Chan Rondon DO\.br\Date and Time Signed: 02/22/24 17:18 EST SURGICAL PATHOLOGY REPORT Observed: 02/05 11:30 AM Status: F Source: [address] [place] [address]- Surgical Pathology Report Collected Date/Time: 02/21/2024 11:30 EST Pathologist: Darius SAGASTUME PhD, Tracey Sandoval Received Date/Time: 02/21/2024 14:10 EST Chan Rondon DO, DO, Michael T 07 Surgical Pathology Report - 02/25/2024 14:08 [...] tissue 2 - Bone after decalcification (DC) DC:[facility] Microscopic Description Microscopic examination performed unless gross only specified. Performed By: #### [id number] # ### [facility] [address] [place] [address] MAIN OR PREOPERATIVE RECORD Observed: 11:20 AM Status: F Source: [facility] Main OR Preoperative Record PreOp Document Type FT Summary Primary Physician: Chan Rondon DO Finalized Date/Time: 02/22/24 08:37:35 Pt. Name: WILMER NAVARRO/Sex: 1985 Female Med Rec #: [id number] Physician: Chan Rondon DO Financial #: [id number] Pt. Type: Room/Bed: [place] [address] Admit/Disch: 02/21/24 08:02:21 - 02/21/24 17:00:00 Institution: [...] MAICOL Cohn RN, Lou Ann 02/22/24 08:37 MAIN OR PACU I RECORD Observed: 02/21/20 11:20 AM Status: F [facility]: [facility] [facility] PACU I Record PACU Phase I Document Type FT Summary Primary Physician: Chan Rondon DO Finalized Date/Time: 02/21/24 14:56:12 Pt. Name: WILMER NAVARRO/Sex: 1985 Female Med Rec #: [id number] Physician: Chan Rondon DO Financial #: [id number] Pt. Type: A Room/Bed: [place] [address] Admit/Disch: 02/21/24 08:02:21 - Institution: Case Times [...] Signed By: Shanti Bender RN 02/21/24 14:56 MAIN OR INTRAOPERATIVE RECORD Observed: 02/21/2024 11:20 AM Status: C Source: [facility] Main OR Intraoperative Recor d IntraOp Document Type FT Summary Primary Physician: Chan Rondon DO Finalized Date/Time: 02/22/24 12:52:18 Pt. Name: GINETTEWILMER/Sex: 1985 Female Med Rec #: [id number] Physician: Chan Rondon DO Financial #: [id number] Pt. Type: A Room/Bed: [place] [address] Admit/Disch: 02/21/24 08:02:21 - 02/21/24 17:00:00 Institution: Case Times FT Entry 1 Patient Times In Room 02/21/24 10:53:00 Out Room 02/21/24 12:25:00 Procedure Times Start 02/21/24 11:20:00 Stop 02/21/24 12:16:00 Anesthesia Times Start 02/21/24 10:53:00 Stop 02/21/24 12:25:00 Block Timeout w/ 02/21/24 10:05:00 Anesthesia Last Modified By: Suki TORRE, CNOR, Brynn Akhtar 02/21/24 12:25:34 General Comments: [id number] taylor and hermelinda for block. HR 101, SPO2 100%, Nervous. Tolerated procedure well./ T koki TORRE/ L Suki Torre 02/22/24 Chart opened to review and send charges [facility] Case Attendance FT Entry 1 Entry 2 Entry 3 Case Attendee Mitwaylon DNP, CALL CENTER SUPPORT REPRESENTATIVE, [place] Chan Rondon DO, RN, CNOR, Brynn NGabriel Akhtar Role Performed CALL CENTER SUPPORT REPRESENTATIVE Surgeon - Primary Outside Laborer - Primary Time In 02/21/24 10:53:00 02/21/24 10:47:00 02/21/24 10:53:00 Time Out 02/21/24 12:25:00 02/21/24 12:05:00 02/21/24 12:25:00 Procedure KNEE TOTAL KNEE TOTAL KNEE TOTAL ARTHROPLASTY(Right) ARTHROPLASTY(Right) ARTHROPLASTY(Right) Comments R Myriam Resident, Lucille dorsey in to hold Marily in room leg for prep [id number] Last Modified By: Skye GALLAGHER, Antoinette Cohn RN, CNOR, Brynn Cohn RN, NUNOOR, Brynn 02/22/24 12:49:03 Giovana 02/21/24 12:25:07 Giovana 02/21/24 12:25:55 Entry 4 Entry 5 Entry 6 Case Attendee Presley GALLAGHER, Shayna Dorsey CST, Tesha Loaiza Role Performed Scrub - Primary ORDER BUILDER LOADER/SA Staff - Other Time In 02/21/24 10:53:00 02/21/24 10:53:00 02/21/24 10:53:00 Time Out 02/21/24 12:09:00 02/21/24 12:25:00 02/21/24 12:20:00 Procedure KNEE TOTAL KNEE TOTAL KNEE TOTAL ARTHROPLASTY(Right) ARTHROPLASTY(Right) ARTHROPLASTY(Right) Comments 2nd scrub Last Modified By: Suki TORRE, NUNOOR, Brynn Cohn RN, NUNOOR, Brynn Cohn RN, NUNOOR, Brynn Akhtar 02/21/24 [...] Time Out Taylor LARSON, JAMES, Queen Annette Bonilla NGabriel, Loren ARELLANO, Chan Hall, Suki RN, CNOR, Presley Moy CST, Alvaro Yousif CST, Dee Adkins Time Out [...] OBESITY Primary Procedure Yes Primary Surgeon Chan Rondon DO Start 02/21/24 11:20:00 Stop 02/21/24 12:16:00 [...] knee psoiasis Outcomes Met? Yes Last Modified By: MAICOL Cohn RN, Lou Ann 02/21/24 12:15:44 Post-Care Text: The patient is free from signs and symptoms of injury caused by extraneous objects Patient Positioning FT Pre-Care Text: Identifies physical alterations that require additional precautions for procedure-specific positioning, verifies presence of prosthetics or corrective devices, positions the patient, evaluates the patient for signs and symptoms of injury as a result of positioning Entry 1 Procedure KNEE TOTAL Body Position Supine ARTHROPLASTY(Right) Feet Uncrossed? Yes Left Arm Position Extended on Padded Arm Board Right Arm Position Extended on Padded Arm Left Leg Position Extended Board Right Leg Position Held on Field Positioning Device Blankets Folded, Padded Armboard, Pillow Under Head Large, Safety Strap Press Points Checked Yes By Taylor LARSON, Queen Cheryl RAMIREZ, Suki RN, NUNOOR, Brynn Akhtar, Dee Dorsey CST Outcomes Met? Yes Last Modified By: MAICOL Cohn RN, Lou Ann 02/21/24 10:38:44 Post-Care Text: The patient is free from signs and symptoms of injury related to positioning Patient Care Devices FT Pre-Care Text: Implements protective measures to prevent skin/ tissue injury due to thermal or mechanical sources Entry 1 Entry 2 Entry 3 Equipment Type CAUTERY UNIT BAILEY SYSTEM INTELLICART SUCTION UNIT Equipment Number v force Equipment Setting Outcomes Met? Yes Yes Yes Last Modified By: Suki TORRE, NUNOOR, Brynn Cohn RN, NUNOOR, Brynn Cohn RN, NUNOOR, Brynn Akhtar 02/21/24 09:51:44 Giovana 02/21/24 09:51:44 Giovana 02/21/24 09:51:44 Entry 4 Entry 5 Entry 6 Equipment Type MISTRAL FORCED AIR MONITOR CHARGE SURGERY SONOSITE ULTRASOUND UNIT WARMING SYSTEM UNIT Equipment Number [id number] Equipment Setting Outcomes Met? Yes Yes Yes Last Modified By: Suki TORRE, NUNOOR, Brynn Cohn RN, NUNOOR, Brynn Cohn RN, NUNOOR, Brynn Akhtar 02/21/24 09:51:44 Giovana 02/21/24 09:51:44 Giovana 02/21/24 09:51:44 Entry 7 Equipment Type TOURNIQUET JANINA Equipment Number a Equipment Setting Outcomes Met? Yes Last Modified By: MAICOL Cohn RN, Brynn Akhtar 02/21/24 09:51:44 Post-Care Text: The patient is free from signs and symptoms of injury caused by extraneous objects Transport To OR FT Pre-Care Text: Transports according to individual needs. Evaluates for signs and symptoms of skin and tissue injury as a result of transfer or transport Entry 1 Via Cart By MAICOL Cohn RN, Lou Ann Safety Precautions Safety Strap, Side Outcomes Met? Yes Rails Up Last Modified By: MAICOL Cohn RN, Lou Ann 02/21/24 09:52:03 Post-Care Text: The patient is free from signs and symptoms of injury related to transfer/transport Cautery FT Pre-Care Text: Implements protective measures to prevent injury due to electrical sources, and evaluates for signs and symptoms of electrical injury Entry 1 ESU Identification ESU Settings Cut 60 Coag 60 ESU Grounding Pad Site Left Thigh Hair Removal Pad No Site Pre Pad Site Clear and Intact Post Pad Site Clear and Intact Condition Condition Grounding Pad MAICOL Cohn RN, Brynn Placed By iGovana Outcomes Met? Yes Last Modified By: MAICOL Cohn RN, Lou Ann 02/21/24 11:21:09 Post-Care Text: The patient if free from signs and symptoms of electrical injury Counts Verification FT Pre-Care Text: Performs required counts Entry 1 Entry 2 Entry 3 Procedure(s) KNEE TOTAL KNEE TOTAL KNEE TOTAL ARTHROPLASTY(Right) ARTHROPLASTY(Right) ARTHROPLASTY(Right) Type Initial Closing Final Items Sponges, Sharps Sponges, Sharps Sponges, Sharps Status Correct Correct Correct Time 02/21/24 10:55:00 02/21/24 12:05:00 02/21/24 12:13:00 By MAICOL Cohn RN, Lou Missler RN, CNOR, Lou Missler RN, CNOR, Lou Ann, McClain ORDER BUILDER LOADER, Presley Akhtar ORDER BUILDER LOADER, Presley Akhtar ORDER BUILDER LOADER, Shayna A Shayna A Shayna A Outcomes Met? Yes Yes Yes Last Modified By: MAICOL Cohn RN, Lou Missler RN, CNOR, Lou Missler RN, CNOR, Lou Ann 02/21/24 11:40:44 Giovana 02/21/24 12:05:24 Giovana 02/21/24 12:15:22 Post-Care Text: The patient is free from signs and symptoms of injury caused by extraneous objects Skin Prep FT Pre-Care Text: Performs skin preparations Entry 1 Procedure KNEE TOTAL Prep Area entire leg to upper ARTHROPLASTY(Right) thigh to ankle Prep Agents Betadine Scrub and Solution Hair Removal Methods Not Indicated By MAICOL Cohn RN, Brynn Outcomes Met? Yes Giovana Last Modified By: MAICOL Cohn RN, Lou Ann 02/21/24 11:21:32 Post-Care Text: The patient is free from signs and symptoms of infection General Comments: leg held by js dorsey Departure From OR FT Pre-Care Text: Transports according to individual needs. Evaluates for signs and symptoms of skin and tissue injury as a result of transfer or transport. Entry 1 Via Cart Safety Precautions Side Rails Up PostOp Destination PACU Transported By MAICOL Cohn RN, Lou Ann Patient Status Stable Report Given Shanti Bender RN To/Hand Off Communication Skin. Condition Intact, Dry Airway Maintenance Oxygen in Use? Yes Airway Device Simple Mask Flow Rate 6 s/co ratio Outcomes Met? Yes Last Modified By: MAICOL Cohn RN, Lou Ann 02/21/24 12:26:21 Post-Care Text: The patient is free from signs and symptoms of injury related to transfer/transport General Comments: verbal and written report to pacu nurse Dressing/Packing FT Pre-Care Text: Administers care to wound sites Entry 1 Entry 2 Type Dressing Dressing Items DRESSING MEPILEX AG 4 DRESSING MEPILEX AG 4 X 10 X 6 Site and Details left knee left knee Outcomes Met? Yes Yes Last Modified By: MAICOL Cohn RN, Lou Missler RN, CNOR, Lou Ann 02/21/24 10:33:57 Giovana 02/21/24 12:17:36 Post-Care Text: The patient is free from signs and symptoms of infection Medication Administration FT Pre-Care Text: Verifies allergies, administers prescribed medications and solutions, administers prescribed antibiotic therapy and immunizing agents as ordered, evaluates response to medications Administers prescribed medications and solutions Entry 1 Expiration Date Yes Ordered By Chan Rondon DO Verified Outcomes Met? Yes Last Modified By: MAICOL Cohn RN, Lou Ann 02/21/24 10:34:10 Post-Care Text: The patient received appropriate medication(s) safely administered during the perioperative period For Bruce[place] please see scanned medication reconcilliation form for medications used at the field during the procedure. Tourniquet FT Pre-Care Text: Implements protective measures to prevent skin/tissue injury due to mechanical sources Entry 1 Tourniquet Type TOURNIQUET CUFF NAV[place] Setting 300 mmHg BLUE 44 X 4 Placement Right Upper Thigh Cuff Size 44 Padding Under Cuff Yes Applied By MAICOL Cohn RN, Lou Applied Ann, Wilhelm CST, Macie C Skin Assessment Unremarkable Skin Assessment Unremarkable Before Inflation After Inflation Tourniquet Times Inflated 02/21/24 11:20:00 Deflated 02/21/24 12:20:00 Total Time 60 minute(s) Outcomes Met? Yes Last Modified By: MAICOL Cohn RN, Lou Ann 02/21/24 12:20:54 Post-Care Text: The patient is free from signs and symptoms of injury caused by extraneous objects Implant Log FT Pre-Care Text: Records devices implanted during the operative or invasive procedure Entry 1 Entry 2 Entry 3 Procedure KNEE TOTAL KNEE TOTAL KNEE TOTAL ARTHROPLASTY(Right) ARTHROPLASTY(Right) ARTHROPLASTY(Right) Implant/Explant Implant Implant Implant Implant Identification FT Description femoral component tibial tray tibial tray insert Serial Number Lot Number [id number] Load Number Shortage Worker depuy depuy depuy Catalog ???# [id number] Size 6n 5 Expiration Date 01/05/34 12/05/33 10/05/28 Manufactured Date Materials Unique Device Identifier (HODA) Human Readable Barcode Machine Readable Barcode Usage Data FT Implant Site Knee R Knee R Knee R Implant Site Comment Quantity 1 1 1 Implant/Explant Date 02/21/24 11:51:00 02/21/24 11:48:00 02/21/24 11:49:00 Implanted By Rondon DO, Chan T Rondon DO, Chan T Rondon DO, Chan T Explant Reason Biological Implants Biological Source Donor Number MR Classification Temperature Reconstitution Method Outcomes Met? Yes Yes Yes Shortage Worker Model Number Last Modified By: Suki TORRE, NUNOOR, rBynn Cohn RN, NUNOOR, Brynn Cohn RN, MAICOL, Farzaneh 02/21/24 11:51:27 Giovana 02/21/24 11:50:21 Giovana 02/21/24 11:50:21 Entry 4 Entry 5 Procedure KNEE TOTAL KNEE TOTAL ARTHROPLASTY(Right) ARTHROPLASTY(Right) Implant/Explant Implant Implant Implant Identification FT Description patella dome cement Serial Number Lot Number [id number] Load Number Shortage Worker depuy simplex Catalog ???# [id number] Size 32 Expiration Date 06/06/31 06/05/25 Manufactured Date Materials Unique Device Identifier (HODA) Human Readable Barcode Machine Readable Barcode Usage Data FT Implant Site Knee R Knee R Implant Site Comment Quantity 1 2 Implant/Explant Date 02/21/24 11:48:00 02/21/24 11:54:00 Implanted By Rondon DO, Chan T Rondon DO, Chan T Explant Reason Biological Implants Biological Source Donor Number MR Classification Temperature Reconstitution Method Outcomes Met? Yes Yes Shortage Worker Model Number Last Modified By: MissMAICOL fuller RN, Lou Missler RN, CNOR, Lou Ann 02/21/24 11:50:21 Giovana 02/21/24 11:54:58 Post-Care Text: The patient is free from signs and symptoms of injury caused by extraneous objects Temperature Control Entry 1 Temperature Control BLANKET MISTRAL AIR Quantity 1 Aid PLUS UPPER BODY Fluid/Lafe Unit Mistral warming system Setting 43 Body Site Upper anterior torso Last Modified By: MAICOL Cohn RN, Lou Ann 02/21/24 11:22:11 Sign Out FT Entry 1 Before Patient Leaves OR Nurse verbally Yes Nurse verbally Yes confirms with the confirms with the team the name of team that the procedure(s) instrument, sponge, recorded and needle counts are correct (or N/A) Nurse verbally Yes Nurse verbally Yes confirms with the confirms with the team how the team whether there specimen is labeled are any equipment (including patient problems to be name), if applicable addressed Sign Out Complete 02/21/24 12:05:00 Last Modified By: MAICOL Cohn RN, Lou Ann 02/21/24 12:05:41 Case Comments <None> Finalized By: Antoinette Cheung CST Document Signatures Signed By: MAICOL Cohn RN, Lou Ann 02/21/24 12:26 Antoinette Cheung CST 02/22/24 12:52 MAIN OR PACU II RECORD Observed: 024 11:20 AM Status: C Source: [facility] Main OR PACU II Record PACU Phase II Document Type FT Summary Primary Physician: Chan Rondon DO Finalized Date/Time: 02/21/24 18:04:41 Pt. Name: WILMER NAVARRO/Sex: 1985 Female Med Rec #: [id number] Physician: Chan Rondon DO Financial #: [id number] Pt. Type: A Room/Bed: Admit/Disch: 02/21/24 08:02:21 - Institution: Case Times [...] Document Signatures Signed By: Naila Landaverde 02/21/24 18:04Naila Landaverde 02/21/24 18:04 PROCEDURAL Observed: 02/21/2024 10:19 AM Status: F Source: [facility] Procedural Patient: WILMER NAVARRO Age: 38 years [...] Using maximal sterile barrier technique per current [facility] guidelines including hand hygeine, Guidance (Ultrasound used [...] Queen Taylor CRNA under Dr Gupta's supervision. PROGRESS NOTE-PHYSICIAN Observed: 2023 9:32 AM Status: F Source: [facility] Progress Note-Physician Patient: WILMER NAVARRO Age: 38 years Sex: [...] list: All Problems Hypothyroid / SNOMED CT 33482709 / Confirmed Depression / SNOMED CT 89283741 / Confirmed Resolved: Syncope / SNOMED CT 447688046 Resolved: GERD - Gastro-esophageal reflux disease / SNOMED CT 2434746796 Resolved: Asthma / SNOMED CT 959416634 Histories Procedure history: History of hernia repair (0576941863). History of hernia repair (9673299886). Cholecystectomy (01322935). Social History Social & Psychosocial Habits Alcohol 01/25/2024 Risk Assessment: Denies Alcohol Use Substance Abuse 01/25/2024 Risk Assessment: Denies Substance Abuse Tobacco 01/25/2024 Risk Assessment: Denies Tobacco Use . Physical Examination Airway: Mallampati classification: II (soft palate, fauces, uvula visible). Respiratory: adequate air exchange. Cardiovascular: Regular rhythm. Plan [place] [employer] (ASA) physical status classification: Class IV. Anesthetic Preoperative Plan: Anesthesia General. Result Comment: Electronical ly Signed By: Paul Gupta Jr, DO\.br\Date and Time Signed: 02/23/24 09:49 EST ABO/RH Collected: 4 8:56 AM Status: F Source: [facility] TYPE CODE TESTS RESULT OUT OF RANGE REFERENCE UNITS LAB 20462881(LOINC) ABO/Rh A POS Unknown Performed By: #### [id number] # ### [facility] [address] [place] [address] BLOOD BANK ID# Collected: 4 8:56 AM Status: F Source: [facility] TYPE CODE TESTS RESULT OUT OF RANGE REFERENCE UNITS LAB 54420594(LOINC) BBID# [id number] Unknown Performed By: #### [id number] #### [facility] [address] [place] [address] ABO/RH HISTORY CHECK Collected: 02/21/2024 8:56 AM S tatus: F Source: [facility] TYPE CODE TESTS RESULT OUT OF RANGE REFERENCE UNITS LAB 78219620(LOINC) ABO/Rh History Check Verified Hx Blood Type Normal Performed By: #### [id number] #### [facility] [address] [place] [address] ABSC Collected: 02/21/2024 8:56 AM Status: F Source: [facility] TYPE CODE TESTS RESULT OUT OF RANGE REFERENCE UNITS LAB 83942669([facility]) ABSC Gel Interp Negative Normal Performed By: #### [id number] #### [facility] [address] [place] [address] U BETAHCG QUAL Collected: 02/21/2024 8:42 AM Status: F Source: [facility] TYPE CODE TESTS RESULT OUT OF RANGE REFERENCE UNITS LAB 4-7([facility]) CHORIOGONADOT ROPIN.BETA SUBUNIT:SCNC: PT:URINE:QN: Negative Normal Performed By: #### [id number] #### [facility] [address] [place] [address] PATIENT EDUCATION - TEXT Observed: 02/15 3:42 PM Status: F Source: [facility] Patient Education - Text [facility], [place] [facility] DISCHARGE INSTRUCTIONS TOTAL KNEE [...] will continue at home, possible with the district administrative assistant of Home Health Physical Therapy or [...] too soon, you are considered an impaired trencher driver, and this could be a problem. It is therefore advised not to drive until after your first office visit following surgery FOLLOW-UP OFFICE VISIT: Chan Rondon DO [facility] [address], [place] [address] Reviewed: 06-13 OUTPATIENT SURGERY DISCHARGE INSTRUCTION Observed: 02/16/2024 3:42 PM Status: F Source: [facility] Outpatient Surgery Discharge Instruction [facility] [address], [place] [address] Patient Discharge Instructions PERSON INFORMATION Name: WILMER NAVARRO Date of : 1985 Current Date: 02/16/2024 15:42:31 PHYSICIANS Admitting Physician: Chan Rondon DO Discharge Diagnosis: Localized osteoarthritis of right [...] TIFFANY, have received the attached patient education materials/instructions and have verbalized understanding: May we do a follow up call? Yes No I was present when discharge instructions were given Patient Signature Date Clinican/Nurse Signature Date Follow up: With: Address: When: Chan Rondon [address] [place], [place] [id number] Business (1) Comments: Keep scheduled appointment Type Location Start [facility] 02/21/2024 [...] you. Thank you for choosing [facility] HERE ARE THE MEDICATION CHANGES THAT OCCURRED DURING YOUR HOSPITAL STAY Medications to Continue with No Changes Other Medications albuterol (Albuterol (Eqv-ProAir HFA) 90 mcg/inh inhalation aerosol) 2 Inhalation Inhalation every 6 hours as needed Shortness of breath or wheezing. budesonide-formoterol (budesonide-formoterol 160 mcg-4.5 mcg/inh Inh Aer w/adapter) 2 [...] Inhalation every day. PATIENT EDUCATION INFORMATION Instructions: [facility] [place] [facility] DISCHARGE INSTRUCTIONS TOTAL KNEE [...] will continue at home, possible with the district administrative assistant of Home Health Physical Therapy or [...] too soon, you are considered an impaired trencher driver, and this could be a problem. It is therefore advised not to drive until after your first office visit following surgery FOLLOW-UP OFFICE VISIT: Chan Rondon DO [facility] [address], [place] [address] Reviewed: 06-13 Medication Leaflets: INPATIENT PATIENT SUMMARY Observed: 02/05 3:42 PM Status: F Source: [facility] Inpatient Patient Summary [address] [address] [facility] Clinical Discharge Instructions PERSON INFORMATION Name: WILMER NAVARRO PHYSICIANS Admitting Physician: Chan Rondon DO Attending Physician: Chan Rondon DO PCP: ELVIE GREER CNP Discharge Diagnosis: Localized osteoarthritis of right knee Comment: PATIENT EDUCATION INFORMATION Instructions: Loren - Total Knee Arthroplasty (CUSTOM) Medication Leaflets: Follow up: With: Address: When: Chan Rondon [address] [place] [address] [facility] (1) Comments: Keep scheduled appointment Type Location Start [facility] 02/21/2024 11:15 AM 02/21/2024 12:30 PM Confirmed MEDICATION LIST Medications to Continue with No Changes Other Medications albuterol (Albuterol (Eqv-ProAir HFA) 90 mcg/inh inhalation aerosol) 2 Inhalation Inhalation every 6 hours as needed Shortness of breath or wheezing. budesonide-formoterol (budesonide-formoterol 160 mcg-4.5 mcg/inh Inh Aer w/adapter) 2 [...] 1 Sprays Nasal Inhalation every day. Comment: BMP Collected: 4 9:15 AM Status: F Source: [facility] TYPE CODE TESTS RESULT OUT OF RANGE REFERENCE UNITS LAB 2345-7(LOINC) GLUCOSE:MCNC :PT:SER/PLAS :QN: 84 Normal 55-199 mg/dL LAB 3094-0(LOINC) UREA NITROGEN:MCN C:PT:SER/STAR S:QN: 12 Normal 5-21 mg/dL LAB 2160-0(LOINC) CREATININE:M CNC:PT:SER/P LAS:QN: 0.6 Normal 0.5-1.3 mg/dL LAB 3097-3(LOINC) UREA NITROGEN/CRE ATININE:MRTO :PT:SER/PLAS :QN: 20 Normal 10-20 No Units LAB 82271-7(LOINC) CALCIUM:MCNC :PT:SER/PLAS :QN: 9.5 Normal 8.9-11.1 mg/dL LAB 2951-2(LOINC) SODIUM:SCNC: PT:SER/PLAS: QN: 139 Normal 135-145 mmol/L LAB 2823-3(LOINC) POTASSIUM:SC NC:PT:SER/PL :QN: 4.0 Normal 3.5-5.3 mmol/L LAB 2075-0(LOINC) CHLORIDE:SCN C:PT:SER/STAR S:QN: 103 Normal 101-111 mmol/L LAB 8-9(LOINC) CARBON DIOXIDE:SCNC :PT:SER/PLAS :QN: 27 Normal 21-31 mmol/L LAB 68635-1([facility]) ANION GAP:SCNC:PT: SER/PLAS:QN: 13 Normal 6-16 mEq/L Performed By: #### [id number] # ### [facility] [address] [place] [address] EGFR Collected: 9:15 AM Status: F Source: [facility] TYPE CODE TESTS RESULT OUT OF RANGE REFERENCE UNITS LAB 83449756([facility]) eGFR 116 Normal >=59 mL/min/1 .7 3 m2 Performed By: #### [id number] #### [facility] [address] [place] [address] CBC W/ AUTO DIFF Collected: 01/25/2024 9:15 AM Statu s: F Source: [facility] TYPE CODE TESTS RESULT OUT OF RANGE REFERENCE UNITS LAB 03707-4([facility]) LEUKOCYTES^^LAYLA ECTED FOR NUCLEATED ERYTHROCYTES:NCN C:PT:BLD:QN:AUTO MATED COUNT 7.7 Normal 4.0-11.0 E9/L LAB 789-8([facility]) ERYTHROCYTES:NCN C:PT:BLD:QN:AUTO MATED COUNT 4.5 Normal 4.3-5.9 E12/L LAB 718-7([facility]) HEMOGLOBIN:MCNC: PT:BLD:QN: 13.6 Normal 12.0-16.0 gm/dL LAB 4544-3([facility]) HEMATOCRIT:VFR:P T:BLD:QN:AUTOMAT ED COUNT 39.2 Normal 34.0-46.0 % LAB 788-0([facility]) ERYTHROCYTE DISTRIBUTION WIDTH:RATIO:PT:R BC:QN:AUTOMATED COUNT 13.2 Normal 10.9-14.2 % LAB 785-6([facility]) ERYTHROCYTE MEAN CORPUSCULAR HEMOGLOBIN:ENTMA SS:PT:RBC:QN:AUT OMATED COUNT 30.4 Normal 27.0-34.0 pg LAB 786-4([facility]) ERYTHROCYTE MEAN CORPUSCULAR HEMOGLOBIN CONCENTRATION:MC NC:PT:RBC:QN:AUT OMATED COUNT 34.7 Normal 31.4-36.0 gm/dL LAB 787-2([facility]) ERYTHROCYTE MEAN CORPUSCULAR VOLUME:ENTVOL:PT :RBC:QN:AUTOMATE D COUNT 87.5 Normal 80.0-100.0 fL LAB 51607-6(LOINC) PLATELET MEAN VOLUME:ENTVOL:PT :BLD:QN:AUTOMATE D COUNT 7.9 Normal 6.4-10.8 fL LAB 84313662(LOINC) Platelet 377.0 Normal 150.0-500.0 E9/ L LAB 77976-0(INC) NEUTROPHILS/100 LEUKOCYTES:NFR:P T:BLD:QN: 56.6 Normal 36.0-75.0 % LAB 731-0(INC) LYMPHOCYTES:NCNC :PT:BLD:QN:AUTOM ATED COUNT 29.5 Normal 14.0-50.0 % LAB 742-7(INC) MONOCYTES:NCNC:P T:BLD:QN:AUTOMAT ED COUNT 0.7 Normal 0.2-1.0 E9/L LAB 713-8(INC) EOSINOPHILS/100 LEUKOCYTES:NFR:P T:BLD:QN:AUTOMAT ED COUNT 4.2 Normal 0.0-8.0 % LAB 704-7(INC) BASOPHILS:NCNC:P T:BLD:QN:AUTOMAT ED COUNT 0.8 Normal 0.0-2.0 % LAB 751-8(LOINC) NEUTROPHILS:NCNC :PT:BLD:QN:AUTOM ATED COUNT 4.3 Normal 2.0-7.5 E9/L LAB 99677-0(LOINC) LYMPHOCYTES:NCNC :PT:BLD:QN: 2.3 Normal 1.0-4.0 E9/L LAB 05836-5(LOINC) EOSINOPHILS:NCNC :PT:BLD:QN: 0.3 Normal 0.0-0.5 E9/L LAB 05628-0(LOINC) BASOPHILS/LEUKOC YTES:NFR.DF:PT:B LD:QN:AUTOMATED COUNT 0.1 Normal 0.0-0.2 E9/L Performed By: #### [id number] # ### [facility] [address] [place] [address] ABO/RH RETYPE Collected: 01/25/2024 9:15 AM Status: F Source: [facility] TYPE CODE TESTS RESULT OUT OF RANGE REFERENCE UNITS LAB [id number]([facility]) ABO/Rh Retype Interp A POS Unknown Performed By: #### [id number] #### [facility] [address] [place] [address] XR CHEST 2 VIEWS Observed: 01/25/2024 8:59 AM Status: F Source: [facility] Exam Date/Time: 01/25/2024 09:09 EST Reason for [...] in mGy = n/a DAP = n/a UA WITH CULT RFLX Collected: 8:54 AM Status: F Source: [facility] TYPE CODE TESTS RESULT OUT OF RANGE REFERENCE UNITS LAB 9194-2([facility]) CLASS:TYPE:PT: URINE COLLECTION METHOD:NOM:* Clean Catch Normal LAB 30422-8([facility]) COLOR:TYPE:PT: URINE:NOM:AUTO Light-Yellow Normal Yellow Result Comment: Microscopic readings are only performed on those samples that meet specific criteria set forth by [facility]. LAB 63314-7([facility]) CLARITY:TYPE:P T:URINE:NOM: Clear Normal Clear LAB 5811-5([facility]) SPECIFIC GRAVITY:RDEN:P T:URINE:SEMIQN :TEST STRIP 1.013 Unknown 1.005-1.030 LAB 5803-2([facility]) PH:LSCNC:PT:UR INE:SEMIQN:MARYCARMEN T STRIP 5.5 Unknown 5.0-9.0 LAB 82650-4([facility]) PROTEIN:PRTHR: PT:URINE:ORD:T EST STRIP Negative Normal Negative mg/dL LAB 13387-1(LOINC) GLUCOSE:PRTHR: PT:URINE:ORD:T EST STRIP Negative Normal Negative mg/dL LAB 79993-3(LOINC) KETONES:PRTHR: PT:URINE:ORD:T EST STRIP.AUTOMATE D Negative Normal Negative mg/dL LAB 71049-0(LOINC) BILIRUBIN:PRTH R:PT:URINE:ORD :TEST STRIP.AUTOMATE D Negative Normal Negative mg/dL LAB 24820-4(LOINC) HEMOGLOBIN:MCN C:PT:URINE:BELLA IQN:TEST STRIP.AUTOMATE D Negative Normal Negative mg/dL LAB 03140-7(LOINC) NITRITE:PRTHR: PT:URINE:ORD:T EST STRIP.AUTOMATE D Negative Normal Negative mg/dL LAB 08797-0(LOINC) UROBILINOGEN:M CNC:PT:URINE:S EMIQN:TEST STRIP Negative Normal Negative mg/dL LAB 12909-3(LOINC) LEUKOCYTE ESTERASE:PRTHR :PT:URINE:ORD: TEST STRIP.AUTOMATE D Negative Normal Negative CD:[id number] Performed By: #### [id number] #### [facility] [address] [place] [address] COMPREHENSIVE METABOLIC PANEL Collected: 12/09/2023 1 1:38 AM Status: F Source: [facility] TYPE CODE TESTS RESULT OUT OF RANGE REFERENCE UNITS LAB GLU Glucose 90 Normal 70-100 mg/dL Result Comment: Random Gluco se Reference Range is dependent on time and content of last meal. Glucose of more than 200 mg/dL in a nonstressed, ambulatory subject supports the diagnosis of Diabetes Mellitus. ADA recommended reference range LAB BUN Blood Urea Nitrogen 16 Normal 7-25 mg/d L LAB CREATT Creatinine 0.57 Low 0.60-1.20 mg/dL LAB GFReNR Estimated GFR > 60.0 LAB NA Sodium 138 Normal 136-145 mmol/L LAB K Potassium 4.4 Normal 3.5-5.1 mmol/L LAB CL Chloride 104 Normal 98-107 mmol/L LAB CO2 Carbon Dioxide 27.9 Normal 21.0-31.0 mmol/L LAB GAP Anion Gap 10.5 Normal 6.0-15.0 LAB CA Calcium 9.6 Normal 8.6-10.3 mg/dL LAB TP Total Protein 6.8 Normal 6.4-8.9 g/dL LAB ALB Albumin Level 4.3 Normal 3.5-5.7 g/dL LAB GLOB Globulin 2.5 g/dL LAB AGRATIO Albumin/Globulin Ratio 1.7 LAB BILIT Bilirubin,Total 0.8 Normal 0.3-1.0 mg/dL LAB AST Aspartate Amino Transferase 13 Normal 13-39 U/L LAB ALT Alanine Aminotransferase 11 Normal 7-52 U/L LAB ALP Alkaline Phosphatase 69 Normal 34-104 U/L Performed By: #### CRP, ESR, CBC, CMP #### [facility] [address] [id number] [facility] C-REACTIVE PROTEIN Collected: 11:38 AM Status: F Source: [facility] TYPE CODE TESTS RESULT OUT OF RANGE REFERENCE UNITS LAB CRP C-Reactive Protein 1.5 High 0.0-0.5 mg/dL Result Comment: PERFORMED BY : [place] [address] PATHOLOGIST DRESSMAKER GARMENT FITTER CARTER MARSHALL M.D. Performed By: #### CRP, ESR, CBC, CMP #### [place] [id number] [facility] COMPLETE BLOOD COUNT AUTO DIFF Collected: 12/09/2023 11:38 AM Status: F Source: [facility] TYPE CODE TESTS RESULT OUT OF RANGE REFERENCE UNITS LAB WBC White Blood Count 7.2 Normal 3.8-11.6 10*3/uL LAB UNWBC Uncorrected WBC 7.2 Normal 3.8-11.6 10*3/uL LAB RBC Red Blood Count 4.48 Normal 3.60-5.00 LAB HGB Hemoglobin 13.5 Normal 11.8-15.4 g/dL LAB HCT Hematocrit 38.9 Normal 34.0-46.4 % LAB MCV Mean Corpuscular Volume 86.9 Normal 80-100 fL LAB MCH Mean Corpuscular Hemoglobin 30.1 Normal 24.7-34.3 pg LAB MCHC Mean Corpuscular HGB Conc 34.6 Normal 32.0-35.0 g/dL LAB RDW Red Cell Distribution Width 13.2 Normal 11.9-15.3 % LAB PLT Platelet Count 349 Normal 150-450 10*3/uL LAB MPV Mean Platelet Volume 8.5 Normal 6.3-10.7 fL LAB NE% Neutrophils % (Auto) 62.7 . % LAB LY% Lymphocytes % (Auto) 26.1 . % LAB MO% Monocytes % (Auto) 8.7 . % LAB EO% Eosinophils % (Auto) 2.1 . % LAB BA% Basophils % (Auto) 0.4 . % LAB NRBC% NRBC% 0.2 Normal 0-0.5 /100{WBC} LAB NE# Neutrophils # (Auto) 4.5 Normal 1.8-7.7 10*3/uL LAB LY# Lymphocytes # (Auto) 1.9 Normal 1.00-4.8 10*3/uL LAB MO# Monocytes # (Auto) 0.6 Normal 0.0-0.8 10*3/uL LAB EO# Eosinophils # (Auto) 0.1 Normal 0.0-0.45 10*3/uL LAB BA# Basophils # (Auto) 0.0 Normal 0.0-0.2 10*3/uL Performed By: #### CRP, ESR, CBC, CMP #### [place] [id number] [facility] ERYTHROCYTE SEDIMENTATION RATE Collected: 12/09/2023 11:38 AM Status: F Source: [facility] TYPE CODE TESTS RESULT OUT OF RANGE REFERENCE UNITS LAB ESR Erythrocyte Sedimentation Rate 27 High 0-19 Result Comment: PERFORMED BY : [place] [address] PATHOLOGIST DRESSMAKER GARMENT FITTER CARTER MARSHALL M.D. Performed By: #### CRP, ESR, CBC, CMP #### [facility] [address] [place] [address] [facility] ALLERGIES DATE TYPE / CODE NAME / CODE REACTION SEVERITY SOURCE 11/30/2024 DRUG INGREDI/419 478962(SNOM ED CT) METOPROLOL Wheezing [facility] 11/26/2023 Drug Allergy/416 315982(SNOM ED CT) diphenhydramine/I53954 4787(RXNORM) Unknown Reaction Unknown [facility] 11/26/2023 Drug Allergy/416 312856(SNOM ED CT) latex/[id number](RXNOR M) Unknown Reaction Unknown [facility] 04/01/2023 DRUG INGREDI/419 181323(SNOM ED CT) PREDNISONE Unknown [facility] 08/09/2019 DRUG INGREDI/419 731801(SNOM ED CT) DIPHENHYDRAMINE Hives~Itching~R jun~Unknown [facility] 08/09/2019 Drug Class/21042 1003(SNOMED CT) LATEX, NATURAL RUBBER Hives~Itching~R jun~Unknown [facility] /99884252 6(SNOMED CT) Latex RI18312-1 [facility] TARA29454239 6(SNOMED CT) diphenhydrAMINE Unknown [facility] TARA70795603 6(SNOMED CT) predniSONE Unknown [facility] ENCOUNTERS ADMIT/DISCHARGE ACCOUNT NUMBER ADMITTING ENCOUNTER CLASS LOCATION SOURCE 11/30/2024/12/01/19 [id number] Ambulatory Building:[facility] 11/16/2024/11/17/19 [id number] Ambulatory Building:NOM S [facility] ALL [facility] 10/31/2024/11/01/19 25 [id number] Ambulatory Building:NOM S [facility] EP[facility] 10/19/2024/10/20/19 [id number] [facility] 10/12/2024/10/13/19 [id number] Ambulatory Building:NOM S [facility] EPIC 10/10/2024/10/11/19 25 [id number] Ambulatory Building:[facility] 09/15/2024/09/16/19 25 [id number] Ambulatory Building:[facility] 09/11/2024/09/12/19 25 [id number] Ambulatory Building:NOM S BCP OB [facility] 09/07/2024/09/08/19 25 [id number] Ambulatory Building:NOM S SWS ALL [facility] EPIC 08/08/2024/08/09/19 25 [id number] Ambulatory Building:[facility] EP[facility] 08/03/2024/08/04/19 25 [id number] Ambulatory Building:NOM S BCP OB [facility] EPIC 06/22/2024/06/23/19 25 [id number] Ambulatory Building:NOM S ORTHO [facility] EPIC 06/22/2024/06/23/19 25 [id number] Ambulatory Building:NOM S ORTHO [facility] EPIC 06/20/2024/06/21/19 25 [id number] Ambulatory Building:[facility] EPIC 05/30/2024/05/31/19 25 [id number] Ambulatory Building:NOM S BCP OB [facility] EPIC 05/25/2024/05/26/19 25 [id number] Ambulatory Building:NOM SCIPT [facility] EPIC 05/23/2024/05/24/19 25 [id number] Ambulatory Building:NOM SCIPT [facility]IC 05/16/2024/05/17/19 25 [id number] Ambulatory Building:NOM SCIPT [facility] EPIC 05/10/2024/05/12/19 25 [id number] Ambulatory Building:NOM SCIPT [facility] EPIC 05/09/2024/05/10/19 25 [id number] Ambulatory Building:[facility] EPIC 05/08/2024/05/09/19 25 [id number] Ambulatory Building:NOM SCIPT [facility] EPIC 05/03/2024/05/03/19 25 [id number] Ambulatory Building:NOM SCIPT [facility] EPIC 05/01/2024/05/01/19 25 [id number] Ambulatory Building:NOM SCIPT [facility] EPIC 04/26/2024/04/26/19 25 [id number] Ambulatory Building:NOM SCIPT [facility] EPIC 04/24/2024/04/25/19 25 [id number] Ambulatory Building:NOM SCIPT [facility] EPIC 04/12/2024/04/12/19 25 [id number] Ambulatory Building:NOM SCIPT [facility] EPIC 04/10/2024/04/10/19 25 [id number] Ambulatory Building:NOM SCIPT [facility] EP[facility] 04/05/2024/04/06/19 25 [id number] Ambulatory Building:NOM SCIPT [facility] EPIC 04/03/2024/04/04/19 25 [id number] Ambulatory Building:NOM SCIPT [facility] EPIC 03/28/2024/03/29/19 25 [id number] Ambulatory Building:NOM SCIPT [facility] EPIC 03/23/2024/03/23/19 25 [id number] Ambulatory Building:NOM S ORTHO [facility] EPIC 03/23/2024/03/23/19 25 [id number] Ambulatory Building:NOM S ORTHO [facility] EPIC 03/21/2024/03/22/19 25 [id number] Ambulatory Building:NOM SCIPT [facility] EPIC 03/15/2024/03/15/19 25 [id number] Ambulatory Building:NOM SCIPT [facility] EPIC 03/14/2024/03/14/19 25 [id number] Ambulatory Building:NOM S SWS PTH [facility] EPIC 03/13/2024/03/13/19 25 [id number] Ambulatory Building:NOM S SWS PTH [facility] EPIC 03/07/2024/03/07/20 24 [id number] Ambulatory Building:NOM S SWS PTH [facility] EPIC 03/05/2024/03/05/20 24 [id number] Ambulatory Building:NOM S SWS PTH [facility] 02/23/2024/02/23/20 24 [id number] Ambulatory Building:NOM S SWS PTH [facility] 02/21/2024/02/21/20 24 [id number] Chan Rondon Ambulatory [facility] :ASRoom: ND41Efh: 01 [facility] 02/21/[id number] Chan Rondon Ambulatory [facility] :ASRoom: CA83Cko: 01 [facility] 02/10/2024/02/11/20 24 [id number] Ambulatory Building:NOM SCIPT [facility] 02/08/2024/02/08/20 24 [id number] [facility] 01/25/[id number] Chan Rondon Ambulatory [facility] :FT PST [facility] 01/25/2024/01/25/20 24 [id number] Rondon, Chan T Ambulatory [facility] :FT PST [facility] 01/13/2024/01/13/20 24 [id number] Ambulatory Building:NOM S ORTHO [facility] EPIC 12/09/2023/12/09/19 24 [id number] Ghassan Ramos [facility] PAYERS ENCOUNTER GUARANTOR PAYER SUBSCRIBER SOURCE 11/30/2024 Primary Insurance:MEDICAL MUTUALPolicy Number: [id number] e Date:2024-03-08 LESLIE DEARTHDOB: [id number] [id number] [place] [address] 11/16/2024 WILMER Welch DEARTHDOB: [address] [address]Keq: (HP) (WP) Primary Insurance:MEDICAL MUTUALPolicy Number: [id number] e Date:2023-03-08 DUSTIN Thakkar DEARTHDOB: [id number] [address] [address] [facility] EPIC 10/31/2024 WILMER Welch DEARTHDOB: [address] [address]Ufh: (HP) (WP) Primary Insurance:MEDICAL MUTUALPolicy Number: [id number] e Date:2023-03-08 DUSTIN Thakkar DEARTHDOB: [id number] [address] [address] [facility] EPIC 10/19/2024 Wilmer Welch [id number] [address] [address]Mkn: (HP) Primary Insurance:MMOPolicy Number: [id number] e Date:2920-30-10QF [id number] [place] [address]SI: Dustin IrvinrthDOB: [id number] [address] [address]Lmw: (HP) [facility] 10/19/2024 Secondary Insurance:Self PayPolicy Number: Effective Date:2024-10-17 NOT GIVENUNK [facility] 10/12/2024 WILMER Welch DEARTHDOB: [address] [address]Dkp: (HP) (WP) Primary Insurance:MEDICAL MUTUALPolicy Number: [id number] e Date:2023-03-08 DUSTIN Thakkar DEARTHDOB: [id number] [address] [address] [facility] 10/10/2024 WILMER Welch DEARTHDOB: [address] [address]Bmh: (HP) (WP) Primary Insurance:MEDICAL MUTUALPolicy Number: [id number] e Date:2023-03-08 DUSTIN Thakkar DEARTHDOB: [id number] [address] [address] [facility] 09/15/2024 Primary Insurance:MEDICAL MUTUALPolicy Number: [id number] e Date:2024-03-08 LESLIE DEARTHDOB: [id number] [address] [address] [facility] 09/11/2024 WILMER Welch DEARTHDOB: [address] [address]Nbw: (HP) (WP) Primary Insurance:MEDICAL MUTUALPolicy Number: [id number] e Date:2023-03-08 DUSTIN Thakkar DEARTHDOB: [id number] [address] [address] [facility] EP[facility] 09/07/2024 WILMER Welch DEARTHDOB: [address] [address]Tdu: (HP) (WP) Primary Insurance:MEDICAL MUTUALPolicy Number: [id number] e Date:2023-03-08 DUSTIN Thakkar DEARTHDOB: [id number] [address] [address] [facility] EP[facility] 08/08/2024 WILMER Welch DEARTHDOB: [address] [address]Nmt: (HP) (WP) Primary Insurance:MEDICAL MUTUALPolicy Number: [id number] e Date:2023-03-08 DUSTIN Thakkar DEARTHDOB: [id number] [address] [address] [facility] 08/03/2024 WILMER Welch DEARTHDOB: [address] [address]Ooz: (HP) (WP) Primary Insurance:MEDICAL MUTUALPolicy Number: [id number] e Date:2023-03-08 DUSTIN Thakkar DEARTHDOB: [id number] [address] [address] [facility] 06/22/2024 WILMER Welch DEARTHDOB: [address] [address]Jjl: (HP) (WP) Primary Insurance:MEDICAL MUTUALPolicy Number: [id number] e Date:2023-03-08 DUSTIN Thakkar DEARTHDOB: [id number] [address] [address] [facility] 06/22/2024 WILMER Welch DEARTHDOB: [place] [address]Tel: (HP) (WP) Primary Insurance:MEDICAL MUTUALPolicy Number: [id number] e Date:2023-03-08 DUSTIN Thakkar DEARTHDOB: [id number] [address] [facility] 06/20/2024 WILMER Welch DEARTHDOB: [address]Tel: (HP) (WP) Primary Insurance:MEDICAL MUTUALPolicy Number: [id number] e Date:2023-03-08 DUSTIN Thakkar DEARTHDOB: [id number] [address] [facility] 05/30/2024 WILMER Welch DEARTHDOB: [address]Tel: (HP) (WP) Primary Insurance:MEDICAL MUTUALPolicy Number: [id number] e Date:2023-03-08 DUSTIN Thakkar DEARTHDOB: [id number] [address] [facility] EP[facility] 05/25/2024 WILMER Welch DEARTHDOB: [place] [address]Tel: (HP) (WP) Primary Insurance:MEDICAL MUTUALPolicy Number: [id number] e Date:2023-03-08 DUSTIN Thakkar DEARTHDOB: [id number] [place] [address] [place] [address] [facility] 05/23/2024 WILMER Welch DEARTHDOB: [address]Tel: (HP) (WP) Primary Insurance:MEDICAL MUTUALPolicy Number: [id number] e Date:2023-03-08 DUSTIN Thakkar DEARTHDOB: [id number] [facility] 05/16/2024 WILMER Welch DEARTHDOB: [place] [id number]: (HP) (WP) Primary Insurance:MEDICAL MUTUALPolicy Number: [id number] e Date:2023-03-08 DUSTIN Thakkar DEARTHDOB: [id number] [facility] 05/10/2024 WILMER Welch DEARTHDOB: [address]Tel: (HP) (WP) Primary Insurance:MEDICAL MUTUALPolicy Number: [id number] e Date:2023-03-08 DUSTIN Thakkar DEARTHDOB: [id number] [address] [facility] 05/09/2024 WILMER Welch DEARTHDOB: [place] [address]Tel: (HP) (WP) Primary Insurance:MEDICAL MUTUALPolicy Number: [id number] e Date:2023-03-08 DUSTIN Thakkar DEARTHDOB: [id number] [place] [id number] [facility] 05/08/2024 WILMER Welch DEARTHDOB: [address] [address]Fhh: (HP) (WP) Primary Insurance:MEDICAL MUTUALPolicy Number: [id number] e Date:2023-03-08 DUSTIN Thakkar DEARTHDOB: [id number] [address] [address] [facility] 05/03/2024 WILMER Welch DEARTHDOB: [address] [address]Ubw: (HP) (WP) Primary Insurance:MEDICAL MUTUALPolicy Number: [id number] e Date:2023-03-08 DUSTIN Thakkar DEARTHDOB: [id number] [address] [facility] 05/01/2024 WILMER Welch DEARTHDOB: [address]Tel: (HP) (WP) Primary Insurance:MEDICAL MUTUALPolicy Number: [id number] e Date:2023-03-08 DUSTIN Thakkar DEARTHDOB: [id number] [address] [address] [facility] 04/26/2024 WILMER Welch DEARTHDOB: [address] [address]Ijr: (HP) (WP) Primary Insurance:MEDICAL MUTUALPolicy Number: [id number] e Date:2023-03-08 DUSTIN Thakkar DEARTHDOB: [id number] [place] [address] [facility] 04/24/2024 WILMER Welch DEARTHDOB: [address] [address]Hkq: (HP) (WP) Primary Insurance:MEDICAL MUTUALPolicy Number: [id number] e Date:2023-03-08 DUSTIN Thakkar DEARTHDOB: [id number] [address] [address] [facility] 04/12/2024 WILMER Welch DEARTHDOB: [address] [address]Hwp: (HP) (WP) Primary Insurance:MEDICAL MUTUALPolicy Number: [id number] e Date:2023-03-08 DUSTIN Thakkar DEARTHDOB: [id number] [address] [address] [place] [address] [facility] 04/10/2024 WILMER Welch DEARTHDOB: [address] [address]Uzw: (HP) (WP) Primary Insurance:MEDICAL MUTUALPolicy Number: [id number] e Date:2023-03-08 DUSTIN Thakkar DEARTHDOB: [id number] [address] [address] [facility] 04/05/2024 WILMER Welch DEARTHDOB: [address] [address]Hjm: (HP) (WP) Primary Insurance:MEDICAL MUTUALPolicy Number: [id number] e Date:2023-03-08 DUSTIN Thakkar DEARTHDOB: [id number] [address] [address] [facility] 04/03/2024 WILMER Welch DEARTHDOB: [address] [address]Hzy: (HP) (WP) Primary Insurance:MEDICAL MUTUALPolicy Number: [id number] e Date:2023-03-08 DUSTIN Thakkar DEARTHDOB: [id number] [address] [address] [place] [address] [facility] 03/28/2024 WILMER Welch DEARTHDOB: [address]Tel: (HP) (WP) Primary Insurance:MEDICAL MUTUALPolicy Number: [id number] e Date:2023-03-08 DUSTIN Thakkar DEARTHDOB: [id number] [address] [facility] 03/23/2024 WILMER Welch DEARTHDOB: [address]Tel: (HP) (WP) Primary Insurance:MEDICAL MUTUALPolicy Number: [id number] e Date:2023-03-08 DUSTIN Thakkar DEARTHDOB: [id number] [address] [place] [address] [facility] 03/23/2024 WILMER Welch DEARTHDOB: [address] [address]Pji: (HP) (WP) Primary Insurance:MEDICAL MUTUALPolicy Number: [id number] e Date:2023-03-08 DUSTIN Thakkar DEARTHDOB: [id number] [address] [facility] EPIC 03/21/2024 WILMER Welch DEARTHDOB: [address] [address]Rkk: (HP) (WP) Primary Insurance:MEDICAL MUTUALPolicy Number: [id number] e Date:2023-03-08 DUSTIN Thakkar DEARTHDOB: [id number] [address] [address] [place] [address] [facility] 03/15/2024 WILMER Welch DEARTHDOB: [address] [address]Vyz: (HP) (WP) Primary Insurance:MEDICAL MUTUALPolicy Number: [id number] e Date:2023-03-08 DUSTIN Thakkar DEARTHDOB: [id number] [address] [facility] 03/14/2024 WILMER Welch DEARTHDOB: [address]Tel: (HP) (WP) Primary Insurance:MEDICAL MUTUALPolicy Number: [id number] e Date:2023-03-08 DUSTIN Thakkar DEARTHDOB: [id number] [address] [facility] 03/13/2024 WILMER Welch DEARTHDOB: [address]Tel: (HP) (WP) Primary Insurance:MEDICAL MUTUALPolicy Number: [id number] e Date:2023-03-08 DUSTIN Thakkar DEARTHDOB: [id number] [address] [address] [facility] 03/07/2024 WILMER Welch DEARTHDOB: [address] [address]Wpb: (HP) (WP) Primary Insurance:MEDICAL MUTUALPolicy Number: [id number] e Date:2023-03-08 DUSTIN Ariane DEARTHDOB: [id number] [address] [address] [facility] EPIC 03/05/2024 WILMER Welch DEARTHDOB: [address] [address]Gcx: (HP) (WP) Primary Insurance:MEDICAL MUTUALPolicy Number: [id number] e Date:2023-03-08 DUSTIN Ariane DEARTHDOB: [id number] [address] [facility] EPIC 02/23/2024 WILMER Welch DEARTHDOB: [address]Tel: (HP) (WP) Primary Insurance:MEDICAL MUTUALPolicy Number: [id number] e Date:2023-03-08 DUSTIN rAiane DEARTHDOB: [id number] [address] [facility] EPIC 02/21/2024 WILMER DEARTHDOB: [place] [address]Tel: (HP) Primary Insurance:MEDICAL MUTUALPolicy Number: [id number] e Date:1239-04-75[address] [address], [place] [address]MN: WILMER DAHL [facility] 02/21/2024 WILMER DEARTHDOB: [place] [address]Tel: (HP) Primary Insurance:MEDICAL MUTUALPolicy Number: [id number] e Date:4750-67-47GQ [address] [address] [address]PS: [facility]24 WILMER Yuri DEARTHDOB: [address] [address]Oea: (HP) (WP) Primary Insurance:MEDICAL MUTUALPolicy Number: [id number] e Date:2023-03-08 DUSTIN Thakkar DEARTHDOB: [id number] [address] [id number] [place] [address] [facility] 02/08/2024 WILMER Welch DEARTHDOB: [address]Tel: (HP) (WP) Primary Insurance:MEDICAL MUTUALPolicy Number: [id number] e Date:2023-03-08 DUSTIN Thakkar DEARTHDOB: [id number] [id number] [place] [address] [facility] 01/25/2024 WILMER DEARTHDOB: [place] [address]Tel: (HP) Primary Insurance:MEDICAL MUTUALPolicy Number: [id number] e Date:1063-18-81[address], [place] [address]DE: WILMER [facility] 01/13/2024 WILMER Welch DEARTHDOB: [address] [address]Ang: (HP) (WP) Primary Insurance:MEDICAL MUTUALPolicy Number: [id number] e Date:2023-03-08 DUSTIN Thakkar DEARTHDOB: [id number] [address] [address] [facility] 12/09/2023 Wilmer Welch [id number] [address]Sta: (HP) Primary Insurance:MMOPolicy Number: [id number] e Date:[id number] [id number] [place] [address]KK: Dustin DearthDOB: [id number] [address] [address]Rcl: () [facility] 12/09/2023 Secondary Insurance:Self PayPolicy Number: Effective Date:2023-12-09 [facility]
--- OUTSIDE RECORDS SUMMARY | 2024-12-05 10:39 | XMS_ITS | Clinical Summary ---
Author Organization [employer] [facility] Address [id number] [address] [place] [address] Care Team Providers Care Men'S Custom Hair Piece Consultant Name Role Phone AmadorElvie francis HAT TRIMMER-REMELTER Primary Care Provider Allergies Active Allergy Reactions [...] on file Insurance [employer] M[employer] Care Teams Men'S Custom Hair Piece Consultant Relationship Specialty Start Date End Date Elvie Greer, HAT TRIMMER-REMELTER PCP - General Nurse Practitioner 08/03/19
--- OUTSIDE RECORDS SUMMARY | 2024-12-05 10:39 | XMS_ITS | Encounter Summary ---
Author Organization [facility] Address [address] [place] [address] Care Team Providers Care Web Design Intern Name Role Phone Elvie Greer NP Unavailable [phone] Chris Pelaez MD Primary Care Provider Isa Machado Unavailable Encounter Details Date Type Department Care Team (Late st Contact Info) Description 01/25/2024 Orders Only [facility] [address] [facility] [place] [address] Elvie Greer, JONN [address] [place] [address] Social History Tobacco Use Types Packs/Day Years [...] often do you attend chur ch or zoroastrianism services? Never 04/06/2023 Do you belong to any clubs o r organizations such as yarsani groups, unions, fraternal or athletic groups, or [...] Recorded Patient Health Questionnaire-2 Score 0 08/31/2023 [facility] Occupat ional Health - Occupational [...] FRANCISCA Jones Allergy [address] [facility] [address] [place] [address] Arnaud Cordova MD [address] [place] [place] [address] 02/22/2025 1:15 PM EST Office Visit [facility] [address] [place] [address] Tani Pimentel DO [address] [place] [address] 05/03/2025 2:45 PM EST Office Visit [facility] [address] [place] [phone] Bernardo Silverio, DO [address] [facility] [address] [place] [address] 06/05/2025 11:00 AM EDT Office Visit [facility] [place] [address] [facility] [place] [address] Javier Morales DO [address] [facility] [address] [place], [place] [id number] documented as of this encounter Procedures Procedure [...] Chest Radiographic Hollie ging us Elvie Greer BENCH MECHANIC IMG XR PROCEDURES Final Result documented in this encounter Visit Diagnoses Not on filedocumented in this encounter Care Teams Web Design Intern Relationship Specialty Start Date End Date Chris Pelaez MD PCP - General Family Medicine 04/01/23 Isa Machado PA [address] [facility] [place] [address] PCP - Medical [place] [employer] 03/08/23 03/07/99 Elvie Greer NP Nurse Practitioner Family Medicine 04/01/23 documented as of this encounter
--- OUTSIDE RECORDS SUMMARY | 2024-12-05 10:39 | XMS_ITS | Encounter Summary ---
Author Organization [facility] Address [address] [place] [address] Care Team Providers Care Loading Dock Helper Name Role Phone Elvie Greer NP Unavailable [phone] Chris Pelaez MD Primary Care Provider [phone] Isa Machado Unavailable Encounter Details Date Type Department Care Team (Late st Contact Info) Description 08/03/2024 Orders Only [facility] [address] [facility] [place] [address] Elvie Greer, JONN [address] [place] [address] Social History Tobacco Use Types Packs/Day Years [...] often do you attend chur ch or mandaeism services? Never 04/06/2023 Do you belong to any clubs o r organizations such as spiritism groups, unions, fraternal or athletic groups, or [...] Recorded Patient Health Questionnaire-2 Score 0 08/31/2023 [facility] of Occupat ional Health - [...] FRANCISCA Jones Allergy [address] [facility] [address] [place] [address] Arnaud Cordova MD [address] [place] [address] 02/22/2025 1:15 PM EST Office Visit [facility] [address] [place] [address] Tani Pimentel DO [address] [place] [address] 05/03/2025 2:45 PM EST Office Visit [facility] [address] [place] [address] Bernardo Silverio, DO 703 [facility] [address] [place] [address] 06/05/2025 11:00 AM EDT Office Visit [facility] Josef [facility]ORE[facility]N [address] [place] [address] Javier Morales DO [address] [facility] [place] [address] documented as of this encounter Procedures Procedure Name Priority Date/Time Associated Diagnosis Comments CARD HOLTER MONITOR RECORDING Routine 08/03/2024 9:16 AM EDT documented in this encounter Results * CARD HOLTER MONITOR RECORDING (08/03/2024 9:16 AM EDT) Anatomical Region Laterality Modality Radiographic Hollie ging us Elvie Greer ERRAND RUNNER IMG XR PROCEDURES Final Result documented in this encounter Visit Diagnoses Not on filedocumented in this encounter Care Teams Loading Dock Helper Relationship Specialty Start Date End Date Chris Pelaez MD PCP - General Family Medicine 04/01/23 Isa Machado PA [address] [place] [address] [place] [address] PCP - Medical [place] [employer] 03/08/23 03/07/99 Elvie Greer NP Nurse Practitioner Family Medicine 04/01/23 documented as of this encounter
--- OUTSIDE RECORDS SUMMARY | 2024-12-05 10:39 | XMS_ITS | Encounter Summary ---
Author Organization [facility] Address [address] [place] [address] Care Team Providers Care Civil Engineering Project Manager Name Role Phone Elvie Greer NP Unavailable [phone] Chris Pelaez MD Primary Care Provider Isa Machado Unavailable Encounter Details Date Type Department Care Team (Late st Contact Info) Description 08/31/2024 Abstract [facility] [address] [place] [address] Elvie Greer NP [address] [place] [address] Social History Tobacco Use Types Packs/Day Years [...] How often do you attend chur or muslim services? Never 04/06/2023 Do you [...] 0 08/31/2023 [facility] of Occupat ional Health - [...] FRANCISCA Jones Allergy [address] [facility] 360 [place] [address] Arnaud Cordova MD [address] [place] [address] 02/22/2025 1:15 PM EST Office Visit [facility] [address] [place] [address] Tani Pimentel DO [address] [facility] [place] [address] 05/03/2025 2:45 PM EST Office Visit [facility] 150 [place] [address] Bernardo Silverio, DO 703 [facility] [address] [place], [place] [address] 06/05/2025 11:00 AM EDT Office Visit [facility] [place] [address] [facility] [place] [address] Javier Morales DO [address] [facility] [place] [address] documented as of this encounter Visit Diagnoses Not on filedocumented in this encounter Care Teams Civil Engineering Project Manager Relationship Specialty Start Date End Date Chris Pelaez MD PCP - General Family Medicine 04/01/23 Isa Machado PA [address] [place] [address] PCP - Medical [place] Commercial 03/08/23 03/07/99 Elvie Greer NP Nurse Practitioner Family Medicine 04/01/23 documented as of this encounter
--- OUTSIDE RECORDS SUMMARY | 2024-12-05 10:39 | XMS_ITS | Encounter Summary ---
Author Organization [facility] Address [address] [facility] [place] [address] Care Team Providers Care Component Assembler Supervisor Name Role Phone Elvie Greer NP Unavailable [phone] Chris Pelaez MD Primary Care Provider [phone] Isa Machado Unavailable Encounter Details Date Type Department Care Team (Late st Contact Info) Description 02/16/2024 Orders Only [facility] [facility] [address] [place] [address] Tani Pimentel DO [address] [place] [address] Right knee pain, unspecified chronicity [...] How often do you attend chur or christian services? Never 04/06/2023 Do you belong to [...] Score 0 08/31/2023 [facility] of Occupat iontx Health - Occupational Stress [...] FRANCISCA Jones Allergy [address] [facility] [address] [place] [address] Arnaud Cordova MD [address] [facility] [address] [place] [address] 02/22/2025 1:15 PM EST Office Visit [facility] [address] [place] [address] Tani Pimentel DO [address] [place] [address] 05/03/2025 2:45 PM EST [facility] Visit [facility] [address] [facility] 150 [place] [address] Bernardo Silverio, DO 703 [facility] [address] [place] [address] 06/05/2025 11:00 AM EDT Office Visit [facility] [place] [address] [facility] [place] [address] Javier Morales DO [address] [facility] [place] [address] documented as of this encounter Visit Diagnoses Diagnosis Right knee pain, unspecified chronicity- Primary documented in this encounter Care Teams Component Assembler Supervisor Relationship Specialty Start Date End Date Chris Pelaez MD PCP - General Family Medicine 04/01/23 Isa Machado PA [address] [facility] [place] [address] PCP - Medical [place] [employer] 03/08/23 03/07/99 Elvie Greer NP Nurse Practitioner Family Medicine 04/01/23 documented as of this encounter
--- OUTSIDE RECORDS SUMMARY | 2024-12-05 10:39 | XMS_ITS | Encounter Summary ---
Author Organization [facility] Address [address] [facility] [place] [address] Care Team Providers Care Bobbin Winder Name Role Phone Elvie Greer NP Unavailable [phone] Chris Pelaez MD Primary Care Provider [phone] Isa Machado Unavailable Encounter Details Date Type Department Care Team (Late st Contact Info) Description 04/28/2023 Abstract [facility] [address] [place] [phone] Vivek Dickinson AIRCRAFT ENGINEER [address] [facility] [place] [address] Social History Tobacco Use Types [...] often do you attend chur ch or presybeterian services? Never 04/06/2023 Do you belong to [...] Recorded Patient Health Questionnaire-2 Score 2 04/13/2023 [facility] [place] [facility] - Occupational Stress Questionnaire Answer Date [...] FRANCISCA Jones Allergy [address] [facility] [address] [place] [address] Arnaud Cordova MD [address] [place] 360 [place] [address] 02/22/2025 1:15 PM EST Office Visit [facility] [place] [facility] [address] [place] [place] [address] Tani Pimentel DO [address] [place], [place] [address] 05/03/2025 2:45 PM EST [facility] [address] [place] [address] 150 [place] [address] Bernardo Silverio, DO 703 [facility] 150 [place] [address] 06/05/2025 11:00 AM EDT Office Visit [facility] [place] [address] [facility] [place] [address] Javier Morales, DO [address] [facility] [place] [address] documented as of this encounter Visit Diagnoses Not on filedocumented in this encounter Care Teams Bobbin Winder Relationship Specialty Start Date End Date Chris Pelaez MD PCP - General Family Medicine 04/01/23 Isa Machado PA [address] [facility] [place] [address] PCP - Medical [place] Commercial 03/08/23 03/07/99 Elvie Greer NP Nurse Practitioner Family Medicine 04/01/23 documented as of this encounter
--- OUTSIDE RECORDS SUMMARY | 2024-12-05 10:39 | XMS_ITS | Encounter Summary ---
Author Organization [facility] Address [address] [place] [address] Care Team Providers Care Nuclear Weapons Mechanical Specialist Name Role Phone Elvie Greer NP Unavailable [phone] Chris Pelaez MD Primary Care Provider [phone] Isa Machado Unavailable Encounter Details Date Type Department Care Team (Late st Contact Info) Description 06/25/2023 Orders Only [facility] [address] [facility] [place] [address] Javier Morales, [address] [place] [address] [place] [address] Social History Tobacco Use Types [...] How often do you attend chur or denominational services? Never 04/06/2023 Do you belong to [...] Recorded Patient Health Questionnaire-2 Score 0 06/29/2023 [facility] of Occupat ionfl Health - Occupational Stress Questionnaire Answer Date [...] FRANCISCA Jones Allergy [address] [facility] [address] [place] [address] Arnaud Cordova MD [address] [place] [address] 02/22/2025 1:15 PM EST Office Visit [facility] [place] [facility] [address] [address] Tani Pimentel DO [address] [place] [address] 05/03/2025 2:45 PM EST Office Visit [facility] Kapil GOMEZ [address] 150 [place] [address] Bernardo Silverio, DO 703 [facility] [address] [place] [address] 06/05/2025 11:00 AM EDT Office Visit [facility] [place] [address] [place] [address] Javier Morales DO [address] [facility] [address] [place], [place] [address] documented as of this encounter Procedures Procedure Name Priority Date/Time Associated Diagnosis Comments SCANNED LABS Routine 06/25/2023 9:44 AM EDT documented in this encounter Results * SCANNED LABS (06/25/2023 9:44 AM EDT) Javier Morales DO LAB CHG PERFORMABLES Final Resul t documented in this encounter Visit Diagnoses Not on filedocumented in this encounter Care Teams Nuclear Weapons Mechanical Specialist Relationship Specialty Start Date End Date Chris Pelaez MD PCP - General Family Medicine 04/01/23 Isa Machado PA [address] [place] [address] [place] [address] PCP - Medical [place] Commercial 03/08/23 03/07/99 Elvie Greer NP Nurse Practitioner Family Medicine 04/01/23 documented as of this encounter
--- OUTSIDE RECORDS SUMMARY | 2024-12-05 10:39 | XMS_ITS | Encounter Summary ---
Author Organization [facility] Address [address] [place] [address] Care Team Providers Care Grassroots Organizer Name Role Phone Elvie Greer NP Unavailable [phone] Chris Pelaez MD Primary Care Provider [phone] Isa Machado Unavailable Encounter Details Date Type Department Care Team (Late st Contact Info) Description 02/21/2024 Clinisync Result Encounter [facility] External Department Unsolicited Tani Pimentel, DO [address] [place], [place] [address] Social History Tobacco Use Types Packs/Day Years [...] any clubs o r organizations such as denominational groups, unions, fraternal or athletic groups, or [...] Recorded Patient Health Questionnaire-2 Score 0 08/31/2023 [facility]ational Stress Questionnaire Answer Date [...] Allergy [address] [place] [address] Arnaud Cordova MD [address] [place] [address] 02/22/2025 1:15 PM EST Office Visit [facility] [place] [facility] [address] [place] [address] Tani Pimentel DO [address] [place], [place] [address] 05/03/2025 2:45 PM EST Office Visit [facility] 703 [facility] [address] 150 [place] [address] Bernardo Silverio DO 703 [facility] 150 [place] [address] 06/05/2025 11:00 AM EDT Office Visit [facility] [address] [facility] [place] [address] Javier Morales, [address] [facility] [place] [address] documented as of this encounter Procedures Procedure [...] on filedocumented in this encounter Care Teams Grassroots Organizer Relationship Specialty Start Date End Date Chris Pelaez MD PCP - General Family Medicine 04/01/23 Isa Machado PA [address] [place] [address] [place] [address] PCP - Medical [place] [employer] 03/08/23 03/07/99 Elvie Greer NP Nurse Practitioner Family Medicine 04/01/23 documented as of this encounter
--- OUTSIDE RECORDS SUMMARY | 2024-12-05 10:39 | XMS_ITS | Clinical Summary ---
Author Organization [facility] Address [address] [place] [address] Care Team Providers Care Tin Roofer Name Role Phone Elvie Greer NP Unavailable [phone] Chris Pelaez MD Primary Care Provider [phone] Isa Machado Unavailable Allergies Active Allergy Reactions [...] MOUTH DAILY 60 each 11/18/19 25 Active progesterone (Prometrium) 100 MG capsuleIndicatio ns:Hormone disorder [...] injections in the past Will refer to tree deadener for evaluation Ventricular arrhythmia 08/03/2024 Assessment & Plan (08/08/2024 6:58 AM EDT): Noted on holter Check stress test and ECHO Send to cardiology Heart palpitations 06/20/2024 Assessment & Plan (10/10/2024 7:00 AM EDT): Saw [facility] on 09/15/24, started on b eduarda [...] [facility] [address] [place] [address] Arnaud Cordova MD Severe persistent asthma with acute exacerbation (HCC) (Primary Dx); Chronic rhinitis 11/16/2024 Refill [facility] [address] [place] [address] Arnaud Cordova MD Severe persistent asthma with acute exacerbation (HCC) 11/16/2024 Bamboo flowsheet [facility] [place] [facility] [address] [place] [address] Arnaud Cordova MD 11/16/2024 Travel 11/02/2024 [facility] [address] [place] [address] Elvie Greer NP Anxiety and depression 10/31/2024 3:15 PM EDT [facility] [address] [place] [address] [address] [place] [address] Bernardo Silverio, Recurrent ventral hernia with incarceration (Primary Dx) 10/31/2024 Travel 10/18/2024 Travel 10/17/2024 Travel 10/12/2024 3:45 PM EDT Consult [facility] [address] [facility] 150 [place] [address] Bernardo Silverio, Recurrent ventral hernia 10/12/2024 Travel 10/11/2024 Travel 10/10/2024 2:00 PM EDT [facility] [address] [place] [address] Elvie Greer NP Heart palpitations (Primary Dx); Essential hypertension ; Morbid (severe) obesity due to excess calories ([facility]-H[facility]); Hypothyroidism, unspecified type ; Anxiety and depression ; Hypomagnesemia; Moderate persistent asthma without complication (HCC); Gastroesophageal reflux disease, unspecified whether esophagitis present; Ventral hernia without obstruction or gangrene 10/10/2024 Bamboo flowsheet [facility] [address] [place] [address] Elvie Greer, AUTOMOTIVE BUYER 10/03/2024 Refill [facility] [place] [facility] [address] [place] [address] Elvie Greer, JONN Hypomagnesemia 09/26/2024 Refill [facility] [place] [facility] [address] [place] [address] Elvie Greer, AUTOMOTIVE BUYER Hypothyroidism, unspecified type (Primary Dx) 09/21/2024 Clinisync Result Encounter NOMS External Department Unsolicited Elvie Greer, JONN 09/11/2024 8:10 AM EDT Office Visit [facility] [address] [facility] [address] Tien Morales DO Hormone disorder (Primary Dx) 09/11/2024 Bamboo flowsheet [facility] [place] [address] [facility] [address] Tien Morales DO 09/07/2024 11:00 AM EDT Office Visit [facility] [place] [facility] [address] [place] [address] Arnaud Cordova MD Environmental and seasonal allergies (Primary Dx); Mild intermittent asthma with (acute) exacerbation (HCC) 09/07/2024 Travel 09/06/2024 Telephone [facility] [place] [facility] [address] [place] [address] Elvie Greer, AUTOMOTIVE BUYER 09/05/2024 Clinisync Result Encounter NOMS External Department Unsolicited Elvie Greer NP 09/05/2024 Clinisync Result Encounter NOMS External Department Unsolicited Elvie Greer, JONN from Last 3 Months Immunizations Immunization Administration [...] often do you attend chur ch or christianity services? Never 04/06/2023 Do you belong to any clubs o r organizations such as gnosticism groups, unions, fraternal or athletic groups, or [...] Score 0 08/31/2023 [facility] - Occupational Stress [...] FRANCISCA Jones Allergy [address] [facility] [address] [place] [address] Arnaud Cordova MD [address] [facility] [address] [place] [address] 02/22/2025 1:15 PM EST Office Visit [facility] [address] [place] [address] Tani Pimentel DO [address] [facility] [address] 05/03/2025 2:45 PM EST Office Visit [facility] [address] [facility] 150 [place] [address] Bernardo Silverio DO [address] [facility] 150 [place] [address] 06/05/2025 11:00 AM EDT Office Visit [facility] [place] [address] [place] [address] Tien Morales, DO [address] [facility] [place] [address] Health Maintenance Due Date Last Done Comments [...] Jr., D.OGabriel 10/19/2024 1:11 PM Dictation Location: [place] [address] Transcribed By: ARNALDO 10/19/24 1311 Dictated By: Mau Chou Jr, DO 10/19/24 1309 Signed By: <Electronically signed by Mau Chou Jr, DO in OV> 10/19/24 1311 Narrative 10/19/2024 1:13 PM EDT [facility] [place] [address] [place] [address] CT Scan Report Signed Patient: Tereza Navarro MR#: [id number] : 1985 Acct:[id number] Age/Sex: 38 / F ADM Date: 10/19/24 Loc: CT Room: Type: [facility] Attending Dr: Bernardo Silverio DO Copies to: [...] wo con Procedure Note Mau Chou Jr., - 10/19/2024 [facility] [place] [address] [place], [place] [id number] CT Scan Report Signed Patient: Tereza Navarro KMR#: [id number] : 1985Acct:[id number] Age/Sex: 38 / FADM Date: 10/19/24 Loc: CT Room:Type: [facility] Attending Dr: Bernardo Silverio DO Copies to: [...] wall/Bones:Midline fat-containing ventral hernia with a neck [id number] mm. Osseous structures demonstrate mild degenerative change.[ CT/CT abdomen pelvis wo con IMPRESSION: Fat-containing midline ventral hernia with a neck measuring 14 mm. Impression dictated by: Mau Chou Jr., D.O. 10/19/2024 1:11 PM Dictation Location: [place] [address] Transcribed By: [facility] 10/19/24 1311 Dictated By: Mau Chou Jr, DO 10/19/24 1309 Signed By: <Electronically signed by Mau Chou Jr, DO inOV> 10/19/24 1311 Bernardo Silverio DO IMG CT PROCEDURES Final Result * ALL THYROXINE (T4) FREE (09/21/2024 11:11 AM EDT) FREE T4 0.93 0.76 - 1.46 ng/dL TB 09/21/2024 11:1 1 AM EDT 09/21/2024 11:30 AM EDT Narrative CLINISYNC - 09/21/2024 12:35 PM EDT us Elvie Greer NP CLINISYNC Final Result CLINISYIN TB * (ABNORMAL) ALL THYROID STIM HORMONE (09/21/2024 11:11 AM EDT) THYROID STIMULATING HORMONE 4.948(H) 0.358 - 3.740 uIU/mL TBH 09/21/2024 11:1 1 AM EDT 09/21/2024 11:30 AM EDT Narrative CLINISYNC - 09/21/2024 12:35 PM EDT us Elvie Greer NP CLINISYNC Final Result Performing Organization Address City/[facility] Co de Phone Number CLINISYIN TB * CA ECHO DOPPLER COMPLETE (09/05/2024 2:17 PM EDT) Anatomical Region Laterality Modality Other 09/05/2024 2:17 PM EDT Narrative 09/05/2024 2:18 [place] [address] Cardiology Report Signed Patient: TEREZA NAVARRO MR#: [id number] : 1985 Acct:[id number] Age/Sex: 38 / F ADM Date: 09/05/24 Loc: CARD Attending Dr: Elvie Greer NP Ordering Physician: Elvie Greer NP Date of Service: 09/05/24 Procedure(s): CA echo doppler complete Accession Number(s): [id number] cc: Evlie Greer NP Patient Name: TEREZA NAVARRO MR#: [id number] : 1985 Exam Date: 09/05/2024 Ordering Doctor: KEYA GREER BOILER WELDER ECHOCARDIOGRAM REPORT PROCEDURE: CA ECHO DOPPLER COMPLETE [...] cm2, 2.52 cm2 AoV Area (VTI): Deceleration Bennett: Pressure Half-Time: Peak Velocity(Antegrade Flow): 1.31 m/s [...] Signed By: 09/05/24 1418 DD/ 1417 TD/TT: Digital Measurement Advisor: Procedure Note Radiology, Radiologist, MD - 09/05/2024 [place] [address] Cardiology Report Signed Patient: TEREZA NAVARRO KMR#: [id number] : 1985Acct:[id number] Age/Sex: 38 / FADM Date: 09/05/24 Loc: CARD Attending Dr: Elvie Greer NP Ordering Physician: Elvie Greer NP Date of Service: 09/05/24 Procedure(s): CA echo doppler complete Accession Number(s): [id number] cc: Elvie Greer NP Patient Name: TEREZA NAVARRO MR#: [id number] : 1985 Exam Date: 09/05/2024 Ordering Doctor: [...] cm2, 2.52 cm2 AoV Area (VTI): Deceleration Bennett: Pressure Half-Time: Peak Velocity(Antegrade Flow): 1.31 m/s [...] M.D. Signed By:09/05/24 1418 DD/ 1417 TD/TT: Digital Measurement Advisor: us Elvie Greer NP CLINISYNC IMAGING Final Result * NM MARVIN PERF SPECT REST STR (09/05/2024 1:42 PM EDT) Anatomical Region Laterality Modality Other 09/05/2024 1:42 PM EDT Narrative 09/05/2024 1:43 [place] [address] Nuclear Medicine Report Signed Patient: TEREZA NAVARRO MR#: [id number] : 1985 Acct:[id number] Age/Sex: 38 / F ADM Date: 08/29/24 Loc: CARD Attending Dr: Elvie Greer NP Ordering Physician: Elvie Greer NP Date of Service: 08/29/24 Procedure(s): NM marvin perf SPECT rest str Accession Number(s): [id number] cc: Elvie Greer NP Patient Name: TEREZA NAVARRO MR#: [id number] : 1985 Exam Date: 08/29/2024 Ordering Doctor: [...] the study was pending per attending physician [facility] . For more details please see [...] Signed By: 09/05/24 1343 DD/ 1342 TD/TT: Digital Measurement Advisor: Procedure Note Radiology, Radiologist, - 09/05/2024 [place] [address] Nuclear Medicine Report Signed Patient: TEREZA NAVARRO KMR#: [id number] : 1985Acct:[id number] Age/Sex: 38 / FADM Date: 08/29/24 Loc: CARD Attending Dr: Elvie Greer NP Ordering Physician: Elvie Greer NP Date of Service: 08/29/24 Procedure(s): NM marvin perf SPECT rest str Accession Number(s): [id number] cc: Elvie Greer NP Patient Name: TEREZA NAVARRO MR#: [id number] : 1985 Exam Date: 08/29/2024 Ordering Doctor: [...] the study was pending per attending physician [facility] . For more details pleasesee separate [...] M.D. Signed By:09/05/24 1343 DD/ 1342 TD/TT: Digital Measurement Advisor: us Elvie Greer NP CLINISYNC IMAGING Final Result * Pap Smear (05/30/2024 12:00 AM EDT) Swab Cervical swab / Unknown us Tien Morales DO LAB CYTOLOGY ORDERABLES Final Re sult EXTERNAL LAB * MM TOMOSYNTHESIS SCREENING BI (04/18/2024 11:34 AM EST) Anatomical Region Laterality Modality Other 04/18/2024 11:3 4 AM EST Narrative 04/18/2024 11:35 [place] [address] Mammography Report Signed Patient: TEREZA NAVARRO MR#: [id number] : 1985 Acct:[id number] Age/Sex: 38 / F ADM Date: 04/18/24 Loc: MAMMO Attending Dr: Tien Morales D.O. Ordering Physician: Tien Morales D.O. Results: Date of Service: 04/18/24 Follow Up: Procedure(s): MM tomosynthesis screening BI Accession Number(s): [id number] cc: Elvie Greer AUTOMOTIVE BUYER; Tien Morales D.O. Patient Name: TEREZA NAVARRO MR#: [id number] : 1985 Exam Date: 04/18/2024 Ordering Doctor: [...] Treatments None Family Cancers None LOCATION: [facility] BREAST COMPOSITION: The breasts are extremely [...] Signed By: 04/18/24 1135 DD/ 1134 TD/TT: Digital Measurement Advisor: Procedure Note Radiology, Radiologist, MD - 04/18/2024 The [place] [id number] Mammography Report Signed Patient: TEREZA NAVARRO KMR#: [id number] : 1985Acct:[id number] Age/Sex: 38 / FADM Date: 04/18/24 Loc: MAMMO Attending Dr: Tien Morales D.O. Ordering Physician: Tien Morales D.O.Results: Date of Service: 04/18/24Follow Up: Procedure(s): MM tomosynthesis screening BI Accession Number(s): [id number] cc: Elvie Greer AUTOMOTIVE BUYER; Tien Morales D.O. Patient Name: TEREZA NAVARRO MR#: [id number] : 1985 Exam Date: 04/18/2024 Ordering Doctor: [...] Treatments None Family Cancers None LOCATION: [facility] BREAST COMPOSITION: The breasts are extremely [...] M.D. Signed By:04/18/24 1135 DD/ 1134 TD/TT: Digital Measurement Advisor: [facility] Toledozio DO CLINISYNC IMAGING Final Result from Last 3 Months or Most Recently Relevant to Health Maintenance Insurance [employer] Care Teams Tin Roofer Relationship Specialty Start Date End Date Chris Pelaez MD PCP - General Family Medicine 04/01/23 Isa Machado PA [address] [place] [address] [place] [address] PCP - Medical [place] [employer] 03/08/23 03/07/99 Elvie Greer NP Nurse Practitioner Family Medicine 04/01/23
--- OUTSIDE RECORDS SUMMARY | 2024-12-05 10:39 | XMS_ITS | Encounter Summary ---
Author Organization [facility] Address [address] [place] [address] Care Team Providers Care Safety Admin Assistant Name Role Phone Elvie Greer NP Unavailable [phone] Chris Pelaez MD Primary Care Provider [phone] Isa Machado Unavailable Encounter Details Date Type Department Care Team (Late st Contact Info) Description 06/09/2024 Orders Only [facility] [address] [place] [phone] Faiza Pacheco MA [address] [facility] [place] [address] Social History Tobacco Use Types Packs/Day Years [...] often do you attend chur ch or sikhism services? Never 04/06/2023 Do you belong to any clubs o r organizations such as druze groups, unions, fraternal or athletic groups, or [...] 0 08/31/2023 [facility] Questionnaire Answer Date Recorded [...] Allergy [address] [place] [address] Arnaud [place]ova MD [address] [place] [place] [address] 02/22/2025 1:15 PM EST Office Visit [facility] [place] [facility] [address] [place] [address] Tani Pimentel DO [address] [place] [address] 05/03/2025 2:45 PM EST [facility] Visit [facility] [address] [facility] 150 [place] [address] Bernardo Silverio DO 703 [facility] 150 [place] [address] 06/05/2025 11:00 AM EDT Office Visit [facility] [address] [facility] [place] [address] Javier Morales DO [address] [facility] [place] [address] documented as of this encounter Procedures [...] on filedocumented in this encounter Care Teams Safety Admin Assistant Relationship Specialty Start Date End Date Chris Pelaez MD PCP - General Family Medicine 04/01/23 Isa Machado PA [address] [place] [address] [place] [address] PCP - Medical [place] [employer] 03/08/23 03/07/99 Elvie Greer NP Nurse Practitioner Family Medicine 04/01/23 documented as of this encounter
--- OUTSIDE RECORDS SUMMARY | 2024-12-05 10:39 | XMS_ITS | Encounter Summary ---
Author Organization [facility] Address [address] [place] [address] Care Team Providers Care Extrusion Operator Name Role Phone Elvie Greer NP Unavailable [phone] Chris Pelaez MD Primary Care Provider [phone] Isa Machado Unavailable Encounter Details Date Type Department Care Team (Late st Contact Info) Description 07/02/2023 Clinisync Result Encounter NOMS External Department Unsolicited Elvie Greer NP [address] [place] [address] Social History Tobacco Use Types Packs/Day Years [...] Recorded Patient Health Questionnaire-2 Score 0 06/29/2023 [facility]ational [facility] Questionnaire [...] Allergy [address] [place] [address] Arnaud Cordova MD [address] [place] [address] [place] [address] 02/22/2025 1:15 PM EST Office Visit [facility] [place] [facility] [address] [place] [address] Tani Pimentel DO [address] [place] [address] 05/03/2025 2:45 PM EST [facility] Visit [facility] [address]03 [facility] 150 [place] [address] Bernardo Silverio DO 703 [facility] 150 [place] [address] 06/05/2025 11:00 AM EDT Office Visit [facility] [address] [facility] [place] [address] Javier Morales, DO [address] [facility] [place] [address] documented as of this encounter Procedures Procedure Name Priority Date/Time Associated Diagnosis Comments US THYROID 07/02/2023 6:22 AM EDT documented in this encounter Results * US thyroid (07/02/2023 6:22 AM EDT) Anatomical Region Laterality Modality Head, Neck Ultrasound 07/02/2023 6:22 AM EDT Narrative 07/02/2023 6:24 AM EDT [address] [address] Ultrasound Report Signed Patient: TEREZA NAVARRO MR#: [id number] : 1985 Acct:[id number] Age/Sex: 37 / F ADM Date: 07/01/23 Loc: US Attending Dr: Elvie Greer NP Ordering Physician: Elvie Greer NP Date of Service: 07/01/23 Procedure(s): US thyroid Accession Number(s): [id number] cc: Elvie Greer NP [address] [id number] Patient Name: TEREZA NAVARRO MRN: [id number] date: 1985 Sex: F Assigned Patient Location: US Current Patient Location: Accession/Order Number: [id number] Exam Date: 07/01/2023 11:42 Report Date: 07/02/2023 [...] M.D. Signed By: 07/02/23623 DD/ 1 TD/TT: Legal Records Manager: Procedure Note Radiology, Radiologist, MD - 07/02/2023 [place] [address] Ultrasound Report Signed Patient: TEREZA NAVARRO KMR#: [id number] : 1985Acct:[id number] Age/Sex: 37 / FADM Date: 07/01/23 Loc: US Attending Dr: Elvie Greer NP Ordering Physician: Elvie Greer NP Date of Service: 07/01/23 Procedure(s): US thyroid Accession Number(s): [id number] cc: Elvie Greer NP [place] [id number] Patient Name: TEREZA NAVARRO MRN: [id number] date: 1985 Sex: F Assigned Patient Location: US Current Patient Location: Accession/Order Number: [id number] Exam Date: 07/01/2023 11:42 Report Date: 07/02/2023 [...] Vivas M.D. Signed By:07/02/23623 DD/ 1 TD/TT: Legal Records Manager: us Elvie Greer NP IMG US PROCEDURES Final Result documented in this encounter Visit Diagnoses Not on filedocumented in this encounter Care Teams Extrusion Operator Relationship Specialty Start Date End Date Chris Pelaez MD PCP - General Family Medicine 04/01/23 Isa Machado PA [address] [place] [address] [place] [address] PCP - Medical [place] [employer] 03/08/23 03/07/99 Elvie Greer NP Nurse Practitioner Family Medicine 04/01/23 documented as of this encounter
--- OUTSIDE RECORDS SUMMARY | 2024-12-05 10:39 | XMS_ITS | Encounter Summary ---
Author Organization [facility] Address [address] [place] [address] Care Team Providers Care Tension Worker Name Role Phone Elvie Greer NP Unavailable [phone] Chris Pelaez MD Primary Care Provider Isa Machado Unavailable Encounter Details Date Type Department Care Team (Late st Contact Info) Description 07/02/2023 Orders Only [facility] [address] [place] [address] Elvie Greer NP [address] [place] [address] Social History Tobacco Use Types Packs/Day Years [...] How often do you attend chur or latter-day services? Never 04/06/2023 Do you belong to [...] Recorded Patient Health Questionnaire-2 Score 0 06/29/2023 [facility] - Occupational Stress Questionnaire Answer Date [...] Visit [facility] [address] [facility] 360 [place] [address] Arnaud Cordova MD [address] [facility] 360 [place] [address] 02/22/2025 1:15 PM EST Office Visit [facility] [address] [place] [address] Tani Pimentel DO [address] [place] [address] 05/03/2025 2:45 PM EST [facility] Visit [facility] 150 [place] [address] Bernardo Silverio, DO 703 [facility] 150 [place] [address] 06/05/2025 11:00 AM EDT Office Visit [facility] [address] [facility] [place] [address] Javier Morales DO [address] [facility] [address] [place], [place] [address] documented as of this encounter Procedures Procedure Name Priority Date/Time Associated Diagnosis Comments US HEAD NECK SOFT TISSUE Routine 07/01/2023 8:37 AM EDT documented in this encounter Results * US head neck soft tissue (07/01/2023 8:37 AM EDT) Anatomical Region Laterality Modality Head, Neck Ultrasound us Elvie Greer VISUAL PRESENTATION MANAGER IMG US PROCEDURES Final Result documented in this encounter Visit Diagnoses Not on filedocumented in this encounter Care Teams Tension Worker Relationship Specialty Start Date End Date Chris Pelaez MD PCP - General Family Medicine 04/01/23 Isa Machado PA [address] [place] [address] PCP - Medical [place] [employer] 03/08/23 03/07/99 Elvie Greer NP Nurse Practitioner Family Medicine 04/01/23 documented as of this encounter
--- OUTSIDE RECORDS SUMMARY | 2024-12-05 10:39 | XMS_ITS | Encounter Summary ---
Author Organization [facility] Address [address] [place] [address] Care Team Providers Care Pipe Fittings Molder Name Role Phone Elvie Greer NP Unavailable [phone] Chris Pelaez MD Primary Care Provider [phone] Isa Machado Unavailable Encounter Details Date Type Department Care Team (Late st Contact Info) Description 08/07/2024 Orders Only [facility] [address] [facility] [address] [address] Elvie Greer, JONN [address] [place] [address] Social History Tobacco Use Types Packs/Day Years [...] often do you attend chur ch or druze services? Never 04/06/2023 Do you belong to any clubs o r organizations such as methodist groups, unions, fraternal or athletic groups, or [...] Recorded Patient Health Questionnaire-2 Score 0 08/31/2023 [facility]at ional Health - [...] FRANCISCA Jones All[facility] [address] [facility] [address] [place] [address] Arnaud Cordova MD [address] [place] [address] 02/22/2025 1:15 PM EST Office Visit [facility] [address] [place] [address] Tani Pimentel DO [address] [place] [place] [address] 05/03/2025 2:45 PM EST Office Visit [facility] [address] [place] [phone] Bernardo Silverio, DO 7[address] [facility] 150 [place] [address] 06/05/2025 11:00 AM EDT Office Visit [facility] [address] [facility] [place] [address] Javier Morales DO [address] [facility] [address] [place], [place] [phone] documented as of this encounter Procedures Procedure Name Priority Date/Time Associated Diagnosis Comments CARD HOLTER MONITOR RECORDING Routine 08/07/2024 11:08 AM EDT documented in this encounter Results * CARD HOLTER MONITOR RECORDING (08/07/2024 11:08 AM EDT) Anatomical Region Laterality Modality Radiographic Hollie ging us Elvie Greer BAKERY WORKER IMG XR PROCEDURES Final Result documented in this encounter Visit Diagnoses Not on filedocumented in this encounter Care Teams Pipe Fittings Molder Relationship Specialty Start Date End Date Chris Pelaez MD PCP - General Family Medicine 04/01/23 Isa Machado PA [address] [place] [address] [place] [address] PCP - Medical [place] [employer] 03/08/23 03/07/99 Elvie Greer NP Nurse Practitioner Family Medicine 04/01/23 documented as of this encounter
--- OUTSIDE RECORDS SUMMARY | 2024-12-05 10:39 | XMS_ITS | Encounter Summary ---
Author Organization [facility] Address [address] [place] [place] [address] Care Team Providers Care Cooker Mechanic Name Role Phone Elvie Greer NP Unavailable [phone] Chris Pelaez MD Primary Care Provider [phone] Isa Machado Unavailable Encounter Details Date Type Department Care Team (Late st Contact Info) Description 04/01/2023 Orders Only [facility] [address] [place] [address] Lor Reyes MA Social History Tobacco Use [...] Office Visit [facility] [address] [facility] [address] [place] [phone] Arnaud Cordova MD [address] [facility] [address] [place] [address] 02/22/2025 1:15 PM EST Office Visit [facility] [address] [place] [phone] Tani Pimentel, DO [address] [place] [address] 05/03/2025 2:45 PM EST Office Visit [facility] [address] [place] [phone] Bernardo Silverio, DO [address] [place] [address] 06/05/2025 11:00 AM EDT Office Visit [facility] [address] [facility] [place] [address] Javier Morales DO [address] [place], [place] [phone] documented as of this encounter Visit Diagnoses Not on filedocumented in this encounter Care Teams Cooker Mechanic Relationship Specialty Start Date End Date Chris Pelaez MD PCP - General Family Medicine 04/01/23 Isa Machado PA [address] [place] [address] PCP - Medical [employer] 03/08/23 03/07/99 Elvie Greer NP Nurse Practitioner Family Medicine 04/01/23 documented as of this encounter
--- NOTE | 2024-12-05 10:45 | US_ITS ---
The [address] [address] Patient Name: WILMER PENG MRN: [id number] date: 1985 Sex: F Assigned Patient Location: US Current Patient Location: US Accession/Order Number: [id number] Exam Date: 12/05/2024 10:46 Report Date: 12/05/2024 11:49 At the request of: KATE GARLAND NP Procedure: US thyroid THYROID ULTRASOUND COMPARISON: 07/01/2023 CLINICAL DATA: History of Aura's. Dysphagia. The right thyroid lobe measures 5.6 x 1.6 x 1.8 cm . The left thyroid lobe measures 3.7 x 1.6 x 1.6 cm. The isthmus measures 6 mm. Echogenicity remains diffusely heterogeneous. No discrete thyroid nodules are seen. US/US thyroid IMPRESSION: CONTINUED HETEROGENEOUS THYROID, WITHOUT DISCRETE NODULARITY. Impression dictated by: Coty Fajardo M.D. 12/05/2024 11:49 AM Dictation Location: [place] [address] Electronically authenticated by: [id number] Y Date: 12/05/2024 11:49
== END 2024-12-05 10:36 | disposition home or self-care (01) ==
PROVIDERS: PCP Nurse Practitioner; Visit Provider Nurse Practitioner
DX: E03.9 Hypothyroidism, unspecified (principal); R13.10 Dysphagia, unspecified; R49.0 Dysphonia
CPT/HCPCS: 76536

== ENCOUNTER 2025-01-25 08:02 | Outpatient (OUT) | payer OTHER, SELFPAY ==
--- OUTSIDE RECORDS SUMMARY | 2025-01-11 08:42 | XMS_ITS | Continuity of Care Document ---
Author Organization [facility] Address [address] [place] [address] Phone Care Team Providers Care Unit Supervisor Name Role Phone Elvie Greer [employer]-C Primary Care Provider [phone] Bernardo Silverio DO Attending Provider [phone] Elvie Greer [employer]-C Attending Provider Care Teams Patient Care Team Team Status: Active Member Role/Relationship Status Dates Elvie Greer [employer]CR[employer] P[employer]-C Primary Care Provider Active Visit Care Team Team Status: Inactive Member Role/Relationship Status Dates Elvie Greer [employer]CR[employer] P[employer]ER-C Primary Care Provider Active Start: October 19, 2024 End: October 19, 2024Bernardo Silverio DOAtttrinity ProviderActiveStart: October 19, 2024 End: October 19, 2024 Visit Care Team Team Status: Active Member Role/Relationship Status Dates Elvie Greer [employer]CR[employer] P[employer]ER-C Primary Care Provider Active Start: November 28, 2024 Elvie Greer NP-CAttending ProviderActiveStart: November 28, 2024 Patient Care Team Team Status: Inactive Member Role/Relationship Status Dates Elvie Greer [employer]-C Primary Care Provider Active Start: January 11, 2025 End: January 11, 2025Elvie Greer NP-CAttending ProviderActiveStart: January 11, 2025 End: January 11, 2025 Chief Complaint and Reason for Visit Chief Complaint Admit Date K43.2 October 19, 2024 9: 06am 3M January 11, 2025 1 :04pm Reason for Visit Admit Date Anxiety and depression January 11 1:04pm Environmental and seasonal allergies Nov ember 2024 1:04pm HTN (hypertension) January 11, 2025 1 :04pm Hypomagnesemia January 11, 2025 1 :04pm Hypothyroidism January 11, 2025 1 :04pm Mild persistent asthma without complicat ion January 11, 2025 1:04pm Morbid (severe) obesity due to excess ca lories January 11, 2025 1:04pm Ventricular arrhythmia January 11 1:04pm Allergies, Adverse Reactions, Alerts Allergen Type Severity Reaction Last Updated Verified Status Comments diphenhydramine Allergy Unknown Unknown Reaction January 11, 2025 1:24pm Yes Active hives itching rash latex Allergy Unknown Unknown Reaction January 11, 2025 1:24pm Yes Active antihistaminesAllergyUnknownUnknown ReactionOctober 2024 3:25pmNoActive prednisone Social History Smoking Status Status Start Date End Date Date of Observa tion Never smoked tobacco (finding) November 26, 2023 10:18am Observation Status Observation Response Date of Response Legal Sex Female (finding) Sex Assigned At BirthFemaleSept1985 Family History Relationship Condition Age at Onset Recorded Date/T rahel father Unknown motherDiabetes mellitusUnknownFamily history of mental disorderUnknownHeart diseaseUnknownsisterHypertensionUnknown Problems Active Problems Problem Diagnosis/Recorded Date Onset Date Stat us Recurrent ventral hernia wit h incarceration January 02, 2025 3:29pm Unknown Active Elevated glucose January 02, 2025 3:26pm Unknown Active Morbid (severe) obesity due to excess calories January 02, 2025 3:29pm Unknown Active Encounter for screening mamm ogram for malignant neoplasm of breast January 02, 2025 3:26pm Unknown Activ e Mild persistent asthma witho ut complication January 02, 2025 3:28pm Unknown Active Hypothyroidism (acquired) November 29, 2024 9:42am Unknown Active Palpitations January 02, 2025 3:27pm Unknown Ac tive Hoarseness of voice November 30, 2024 10:30am Unkno wn Active Ventricular arrhythmia January 02, 2025 3:30pm Unkno wn Active Painful lumpy right breast January 02, 2025 3:29pm U nknown Active Dysphagia November 30, 2024 10:30am Unknown Active Hypothyroidism January 02, 2025 3:28pm Unknown Active Other constipation January 02, 2025 3:29pm Unknown Active Leg cramps January 02, 2025 3:28pm Unknown Ac tive Environmental and seasonal allergies January 02 3:27pm Unknown Active Psoriasis January 02, 2025 3:29pm Unknown Ac tive Liver function abnormality January 02, 2025 3:28pm U nknown Active Body mass index 45.0-49.9, adult January 02, 2025 3: 26pm Unknown Active Anxiety and depression January 02, 2025 3:25pm Unkno wn Active GERD (gastroesophageal reflux disease) January 11 025 1:38pm Unknown Active HTN (hypertension) January 02, 2025 3:27pm Unknown Active Hair loss January 02, 2025 3:27pm Unknown Ac tive Aortic valve disorder January 02, 2025 3:26pm Unknow n Active Arthritis of right knee January 02, 2025 3:26pm Unkn own Active Hypomagnesemia January 02, 2025 3:28pm Unknown Active Inactive/Resolved Problems Problem Diagnosis/Recorded Date Onset Date Stat us Cellulitis of arm, left November 26, 2023 1:51pm Un known Resolved Difficulty walking January 02, 2025 3:26pm Unknown Resolved Medications Medication Status Dose Units Route Directions Qty Days Refills S tart Date Stop Date End Date Reason(s) Instructions Adherence Levothyroxine 125 mcg tablet Discontinued 125 MCG PO Daily 90 0Sept2024 11:00pmJanuary 11, 2025 1:39pmAcquired hypothyroidism Hypothyroidism, unspecifiedHydroxyzine Pamoate 25 mg xdkqrdwRpshsj33FWWOYtzcn 8 hours as needed for nausea and xlcxkyqy981Tbwvqwc 2024 11:40amComplies with drug therapyBudesonide-Formoterol 160-4.5 mcg/actuation HFA aerosol inhaler DiscontinuedINHALATIONSept2023 11:00pmJanuary 07, 2025 7:50pm Levothyroxine 75 mcg tabletDiscontinuedMCGPOSept2023 11:00pm November 29, 2024 9:42amBupropion Hcl 300 mg tablet extended release 24 hr [facility]continuedMGDelta [facility]20[facility] 11:00[facility]2024 1:39pmHydroxyzine Pamoate 25 mg capsuleDiscontinuedMGDelta [facility] Hospital2023 11:00pmOctober 2024 11:41amMontelukast 10 mg tabletActiveMGDelta [facility]2023 11:00pm Complies with drug therapyTriamcinolone Acetonide 55 mcg aerosol,sprayActive INTRANASAL2023 11:00pmComplies with drug therapyPantoprazole 40 mg tablet,delayed release (DR/EC)DiscontinuedMGDelta [facility] Hospital2023 11:00pm January 11, 2025 1:39pmFamotidine 20 mg tabletDiscontinuedGuadalupe [facility]2023 11:00[facility] 2024 7:50pmIbuprofen 800 mg tabletDiscontinuedMGPO November 25, 2023 11:00[facility] 2024 7:48pmCelecoxib 200 mg capsule ActiveGuadalupe County Hospital2023 11:00pmComplies with drug therapyCephalexin 500 mg ffnwulgSzeqvikgmrcq772CPXHPztxg times jvkkv4559Aejyruuui 2023 11:00pm January 11, 2025 5:57amMupirocin 2 % yfwvcdfqKazjkracxbod9OHZIEDZIGEDMNEeddb times wrhux68693Tzkqkrljw 19th, 2024 11:00[facility] 2024 7:51pmFluconazole 150 mg hdfmepLhyuipptoobl790NACKB8F437Mwnlicjhj 19th, 2024 11:00[facility] 2024 7:48pmmay repeat x 1 in 3 days if neededMetoprolol Succinate 50 mg tablet extended release 24 ufJxcgwvmnomen51RCJXdusjnAilbavrp 2024 11:00[facility] 2024 5:58amEstradiol 0.05 mg/24 hr patch nnwhyzGlcawe6FBHZBARXLDSVltqfw weekNovant Health [facility]2024 11:00pmComplies with drug therapyMagnesium Oxide 400 mg (241.3 mg magnesium) dzubdvHjbhhsohstvm367EFLHNebsrXdyhbdun 2024 11:00pm January 11, 2025 1:26pmAzelastine 137 mcg (0.1 %) spray,non-aerosolActive2 SPRAYINTRANASALTwice dailyJanuary 06, 2025 11:00pmComplies with drug therapy Albuterol Sulfate 90 mcg/actuation HFA aerosol auzzfcxKzjybn5DRZFDBCZEVALHBOkou times daily as neededJanuary 06, 2025 11:00pmComplies with drug therapy Ipratropium Puxico 42 mcg (0.06 %) spray,non-aerosolActiveINTRANASALJanuary 06, 2025 11:00pmComplies with drug therapyLevothyroxine 112 mcg tablet Pentsyhktbuf687MTTCDSuercZutivgmp 1st, 2025 11:00pmJanuary 11, 2025 1:25pm Qplhciykynj-Nxjwrdigu-Cxmwgyjt (Trelegy Ellipta) 200-62.5-25 mcg blister with eesqjwQmofzf4TWFBHALPAFILXuwnzwTzacfhck 1st, 2025 11:00pmComplies with drug therapyDiltiazem Hcl 180 mg capsule,extended release 24hrActiveMGPONovereunion rehabilitation hospital [facility] 2024 12:00amComplies with drug therapyMagnesium Oxide 400 mg (241.3 mg magnesium) wyhwhvYhijjkpzdunh248AIISGmyqp dailyJanuary 11, 2025 1:25pmJanuary 11, 2025 1:39pmBupropion Hcl 300 mg tablet extended release 24 bjEqgpiy232ZVNE Uxqpy829Brbfjzxp2024 1:36pmAnxiety and depression Anxiety disorder, unspecified Depression, unspecifiedComplies with drug therapyLevothyroxine 125 mcg tablet Crpljo282EIWKBAzybs979Kzepnvxd 6th, 2025 1:37pmAcquired hypothyroidism Hypothyroidism, unspecifiedComplies with drug therapyMagnesium Oxide 400 mg (241.3 mg magnesium) chsxwlTyqgbx260HRUSJsgpz voblb5640AhtrptdpJanuary 11, 2025 1:37pm Hypomagnesemia HypomagnesemiaComplies with drug therapyPantoprazole 40 mg tablet,delayed release (DR/EC)Vaeepf01DLMBQjjpj622Tvgmcerm 6th, 2025 1:37pmGastroesophageal reflux disease Gastro-esophageal reflux disease without esophagitisComplies with drug therapy Procedures Procedure Date Performed Status CT abdomen pelvis wo con October 19, 2024 8:08a m completed Relevant Diagnostic Tests and/or Laboratory Data Laboratory Results Test Collection Date/Time Result Date/Time Result Interpretation Reference Range Result Comment Performing Site Thyroid Stimulating Hormone 3rd Gen November 28, 2024 10:40am November 28, 2024 10:40am 4.291 u[iU]/mL Above high normal 0.358-3.740 Free ThyroxineSeptember 2024 10:40amSeptember 2024 10:40am1.01 ng/dL 0.76-1.46 Diagnostic Imaging Reports Author Mau Chou [facility] HospitalAuthoredAugust 2024 1:09pmReportDictated Date/TimeDictated ByStatusRadiology ReportAugust 2024 1:09pmJosetran Chou Jr DOcomplete[facility] [place] [address] [place] [address] CT Scan Report Signed Patient: Tereza Navarro MR#: [id number] : 1985 Acct:[id number] Age/Sex: 38 / F ADM Date: 5 Loc: CT Room: Type: [facility] Attending Dr: Bernardo Silverio DO Copies to: [...] appear unremarkable. Kidneys demonstrate no stone or hydronephrosis. Abdominal aorta appears [...] neck measuring 14 mm. Impression dictated by: Corey Eaton Jr.OGabriel 10/19/2024 1:11 PM Dictation Location: RADIO-PC-23 Transcribed By: PWS 10/19/24 1311 Dictated By: Mau Chou Jr, DO 10/19/24 1309 Signed By: <Electronically signed by Mau Chou Jr, DO in OV> 10/19/24 1311 Vital Signs Vital Reading Result Reference Range Collection Date/Time Height 66 [in_i] January 11, 2025 1:63syGjvvxt770.16 kgNovember 2024 1:08pmBody Lkuaugmrnmk03.5 [degF]97.6-99.0Nov2024 1:08pmHeart Rate94 /oyw01-749 January 11, 2025 1:08pmRespiratory rate18 /zur73-55Vmgryzav 6th, 2025 1:08pm Oxygen saturation by Pulse yatxbrgq34 %95-100Nov2024 1:08pmBP Jqpekqld744 mm[Hg]100-140Nov2024 1:08pmBP Sfsvwnwqj11 mm[Hg]60-100 January 11, 2025 1:08pmBMI (Body Mass Index)42.0 kg/i5Cswwmgfa2024 1:08pm Advance Directives Advance Directive Response Recorded Date/ Time Advance Directives No December 09, 2023 12:58pm Insurance Providers Guarantor Tereza Bhatia Address [address] [place] [phone] Info.Home Phone: Coverage Status Update:2024 Payer Group Member ID Coverage Type Subscriber Relationship to Subscriber Effective Date Expiration Date MMO Id: [id number] [facility]: [id number] [address] [place] [phone] Home Phone: Encounters Encounter Location(s) Arrival/Admit Date Discharge/Departure Date Discharge/Departure Disposition Provider(s) Departed Clinical -CT Scan [place] October 19, 2024 9:06am October 19, 2024 9:07am Discharged to home care or self care (routine discharge) Bernardo Silverio , Non-patient / Non-visit -[facility] An Rudd November 28, 2024 11:40am Elvie Greer NP-CDeparted Physician/Provider Office Visit-[facility] 2024 1:04pmNov2024 1:40pmDischarged to home care or self care (routine discharge)Elvie Greer NP-C Recent Diagnosis Onset Date Admit Date Anxiety and depression Unknown January 11, 2025 1:04pm Environmental and seasonal allergies Unknown January 11, 2025 1:04pm HTN (hypertension) Unknown January 11, 2025 1:04pm Hypomagnesemia Unknown January 11 1:04pm Hypothyroidism Unknown January 11 1:04pm Mild persistent asthma without complication Unkn own January 11, 2025 1:04pm Morbid (severe) obesity due to excess calories U nknown January 11, 2025 1:04pm Ventricular arrhythmia Unknown January 11, 2025 1:04pm Assessments Diagnosis Onset Date Resolution Status Admit Date Anxiety and depression acuteJanuary 11, 2025 1:04pmEnvironmental and seasonal allergiesacuteJanuary 11, 2025 1:04pmHTN (hypertension)acuteJanuary 11, 2025 1:04pmHypomagnesemia acuteJanuary 11, 2025 1:04pmHypothyroidismacuteJanuary 11, 2025 1:04pmMild persistent asthma without complicationacuteJanuary 11, 2025 1:04pmMorbid (severe) obesity due to excess caloriesacuteJanuary 11, 2025 1:04pmVentricular arrhythmiaacuteJanuary 11, 2025 1:04pm Plan of Treatment Author Elvie Greer [facility]January 11, 2025 1:36pmPlease check blood pressure daily and record DASH diet Limit caffeine Take medication as directed Contact office if chest pain, pressures, dizziness, shortness of breath, swelling in the legs Recommend slow position changes if you develop dizziness with position changes current meds: cardizem, could not tolerate b eduarda for palpitations, made her asthma worse on levothyroxine check labs yealry and prn dose changes current meds: triple therapy, singulair, and prn albuterol Discussed with patient their BMI (actual vs recommended). We have discussed lifestyle modifications: attempts to perform phsyical activity as chronic conditions allow, monitor dietary intake: increasing protein/fruits/veggies and lowering carb intake (unless contraindicated). Limit sodas, juices, sugary drinks, as well as alcohol consumption. current meds: buproprion, prn vistaril on magnesium daily check lab yearly and prn dose changes or changes in sxs on allergy nasal spray as well as singulair reviewed recent cardiology notes stopped her b eduarda as it was aggravating her asthma sxs changed to cardizem Future Tests Future scheduled test information is unavailable Pending Tests Pending diagnostic test information is unavailable Future Visits Future appointment information is unavailable Future Procedures Procedure Name Ordered Date Scheduled Date Basic Metabolic Panel January 11, 2025 6:04am MagnesiumNovember 2024 6:04amFree T4 (Free Thyroxine)January 11, 2025 6:04amThyroid Stimulating HormoneNovember 2024 6:04am Future Medications Future medication information is unavailable Patient Instructions Patient instructions are unavailable
--- OUTSIDE RECORDS SUMMARY | 2025-01-25 08:07 | XMS_ITS | Clinical Summary ---
Author Organization [employer] tem Address [id number] [address] [place] [address] Care Team Providers Care Transformation Consultant Name Role Phone AmadorElvie francis Tuan [employer] Primary Care Provider Allergies Active AllergyReactionsCriticalityNoted DateCommentsDiphenhydramine HclHives 08/09/2019Latex, Natural WnirnsJqqqn18/03/2020 Medications MedicationSigDispense QuantityRefillsLast FilledStart DateEnd DateStatus omeprazole (PriLOSEC) 20 mg capsule Take 20 mg by mouth daily.07/18/2019Active albuterol (PROVENTIL HFA;VENTOLIN HFA) 90 mcg/actuation inhaler Inhale 2 puffs every 6 (six) hours as needed for wheezing. hasnt used in about a yearActive Active Problems No known active problems Family History Medical HistoryRelationNameCommentsDiabetesFatherHeart diseaseFatherCancer Maternal GrandfatherCancerMaternal GrandmotherDiabetesMotherHeart diseaseMother CancerPaternal GrandfatherCancerPaternal GrandmotherRelationNameStatusComments FatherMaternal GrandfatherMaternal GrandmotherMotherPaternal GrandfatherPaternal Grandmother Social History Tobacco UseTypesPacks/DayYears UsedDateSmoking Tobacco: NeverSmokeless Tobacco: NeverAlcohol UseStandard Drinks/WeekCommentsYes0 (1 standard drink = 0.6 oz pure alcohol)socialChildcareAnswerDate LrejadtmTukamieftLmkbpsq53/28/2020Employment AnswerDate ZgmzfhtaGrqxoywbsaYysmlcv46/28/2020Purpose - LifeAnswerDate Recorded Purpose and direction in xcosYjxeiys46/15/2021CommentsUnknownSex and Gender InformationValueDate RecordedSex Assigned at BirthNot on fileLegal Sex Huugbs3608/03/2019 11:45 AM EDTGender IdentityNot on fileSexual OrientationNot on file Last Filed Vital Signs Vital SignReadingTime TakenCommentsBlood Zonuzmlt680/8102/28/2020 1:51 PM EST Dtjhh6620/23/2020 1:51 PM JMQQkwxitgfalp43.3 ??C (97.3 ??F)02/28/2020 12:30 PM ESTRespiratory Gnpc955604/30/2019 1:51 PM ESTOxygen Ksijmoqyji892%02/28/2020 1:51 PM ESTInhaled Oxygen Concentration--Pcdyvk057 kg (280 lb)02/28/2020 10:40 AM EST Hmdtwc387.1 cm (5' 5 )02/28/2020 10:40 AM ESTBody Mass Index46.5902/28/2020 10:40 AM EST Plan of Treatment Health MaintenanceDue DateLast DoneCommentsDepression Fghjmmflo27/13/1996Tobacco Zyvjharjy95/13/1996Adult BMI Qivxxzsiq18/13/2002DTaP,Tdap and Td Vaccines (1 - Tdap)11/18/2002Pap Smear11/18/2004Influenza Wnbacgg3911/06/2024 Medical Devices Not on file Insurance Care Teams Team MemberRelationshipSpecialtyStart DateEnd Date Elvie Greer APRN-[employer] PCP - GeneralNasya Practitioner08/03/19
--- OUTSIDE RECORDS SUMMARY | 2025-01-25 08:07 | XMS_ITS | Clinical Summary ---
Author Organization [facility] Address [address] [place] [address] Care Team Providers Care Architectural Coating Finisher Name Role Phone Elvie Greer MD Primary Care Provider [phone] Allergies Active AllergyReactionsCriticalityNoted DateCommentsDiphenhydramineHives,Itching ,Rash,YlerpmeNkb82/03/2020Latex, Natural RubberHives,Itching,Rash,UnknownLow 08/09/20191399WrziujdmmbYgqtsmxi46/25/2747JlkmslaykgTvmsjqd23/25/2024 Medications MedicationSigDispense QuantityRefillsLast FilledStart DateEnd DateStatus albuterol 90 mcg/actuation inhaler Inhale 2 puffs every 6 (six) hours if needed.4Active budesonide-formoteroL (Symbicort) 160-4.5 mcg/actuation inhaler Inhale 2 puffs twice a day.5Active buPROPion XL (Wellbutrin XL) 300 mg 24 hr tablet Take 300 mg by mouth in the morning.Active estradiol (Climara) 0.05 mg/[address] 1 patch on the skin 1 (one) time per week.Active famotidine (Pepcid) 20 mg tablet Take 20 mg by mouth at bedtime.Active hydrOXYzine pamoate (Vistaril) 25 mg capsule TAKE 1 CAPSULE BY MOUTH EVERY 8 HOURS NEEDED for itchingActive levothyroxine (Synthroid, Levoxyl) 100 mcg tablet Take 100 mcg by mouth before breakfast.Active magnesium oxide (Mag-Ox) 400 mg (241.3 mg magnesium) tablet Take 1 tablet by mouth in the morning.5Active montelukast (Singulair) 10 mg tablet Take 10 mg by mouth at bedtime.Active pantoprazole (ProtoNix) 40 mg EC tablet Take 40 mg by mouth before breakfast.Active progesterone (Prometrium) 100 mg capsule take 1 capsule (100 mg) by mouth dailyActive metoprolol succinate XL (Toprol-XL) 50 mg 24 hr tablet Indications:PalpitationsTake 1 tablet (50 mg) by mouth once daily as directed. Do not crush or chew. 90 tablet ctive azelastine (Astelin) 137 mcg (0.1 %) nasal spray Administer 2 sprays into each nostril two times daily.10/30/2024tive Trelegy Ellipta 200-62.5-25 mcg blister with device Inhale 1 puff in the morning.5Active ipratropium (Atrovent) 42 mcg (0.06 %) nasal spray Administer 2 sprays into each nostril three times daily.10/30/2024tive triamcinolone (Nasacort) 55 mcg nasal inhaler Administer 2 sprays into each nostril in the morning.Active dilTIAZem CD (Cardizem CD) 180 mg 24 hr capsule Indications:Benign hypertensive heart disease without congestive heart failure Take 1 capsule (180 mg) by mouth once daily as directed. STOP METOPROLOL 90 capsule 6Active Active Problems ProblemNoted DateDiagnosed DateDOE (dyspnea on exertion)11/30/2024enign hypertensive heart disease without congestive heart acujedj8911/30/2024lass 3 severe obesity due to excess calories without serious comorbidity with body mass index (BMI) of 40.0 to 44.9 in adult11/30/2024Essential fkatgyzdpald07/13/2025 Environmental and seasonal nrmecsefx47/03/2025Ventricular gmajjurxsu42/29/2025 Dslyrfzkmcow86/15/9827Fopgxjyyane65/04/2025Other rwyuoeivmzka25/04/2025 Difficulty lndtalr8602/22/2024Status post right knee ytejjuljpkh04/17/2024 Encounter for screening mammogram for malignant neoplasm of lwafby9702/08/2024Mild persistent asthma without elaybzphphbq95/03/2024Morbid (severe) obesity due to excess yweiyjjh37/03/2024Ventral hernia without obstruction or gangrene 08/31/2023cute postoperative pain of right knee04/01/2023nxiety and depression 04/01/2023rthritis of knee, right04/01/2023Elevated eynvdpm3204/01/2023GERD (gastroesophageal reflux disease)04/01/2023Hair loss04/01/2023Hypomagnesemia 04/01/2023Leg nppxjq0404/01/2023Liver function maolckovtzo73/25/2024ainful lumpy right uzwfwy4704/01/20233571Hofrcdnib52/25/2024 Resolved Problems ProblemNoted DateDiagnosed DateResolved DateAortic valve /13/2025 11/30/2024ody mass index (BMI) 45.0-49.9, adult Encounters DateTypeDepartmentCare YzmyUjfcswesveh31/25/2025 10:40 AM EDTOffice Visit [facility] [address] [address] Harriet Jung MD Palpitations (Primary Dx); Ventricular arrhythmia; TAYLOR (dyspnea on exertion); Benign hypertensive heart disease without congestive heart failure; Class 3 severe obesity due to excess calories without serious comorbidity with body mass index (BMI) of 40.0 to 44.9 in adultfrom Last 3 Months Family History Medical HistoryRelationNameCommentsHeart failureMaternal Grandmother CardiomyopathyPaternal GrandfatherHypertensionSisterRelationNameStatusComments FatherDeceasedMaternal GrandmotherMotherAlivePaternal GrandfatherSister Social History Tobacco UseTypesPacks/DayYears UsedDateSmoking Tobacco: NeverSmokeless Tobacco: Never Tobacco Cessation:Counseling Given: Not Answered Alcohol UseStandard Drinks/WeekCommentsYes0 (1 standard drink = 0.6 oz pure alcohol)occasionalCommentsUnknownSex and Gender InformationValueDate RecordedSex Assigned at WhnztSwnxvb39/09/2025 9:07 AM EDTLegal SexFemale 08/03/2024 2:23 PM EDTGender LotsjunoTjluox02/11/2024 9:07 AM EDTSexual OrientationHeterosexual or Midxomlh18/09/2025 9:07 AM EDT Last Filed Vital Signs Vital SignReadingTime TakenCommentsBlood Aczacuno406/8509 10:56 AM EDT Gcxfq076211/30/2024 10:56 AM EDTTemperature--Respiratory Rate--Oxygen Saturation 99%11/30/2024 10:56 AM EDTInhaled Oxygen Concentration--Fsesjc269 kg (270 lb) 11/30/2024 10:56 AM RHFSxwejb245.6 cm (5' 6 )11/30/2024 10:56 AM EDTBody Mass Index43.58011/30/2024 10:56 AM EDT Plan of Treatment Health MaintenanceDue DateLast DoneCommentsDepression Rltboufkj22/13/1996 Varicella Vaccines (1 of 2 - 13+ 2-dose series)11/18/1996Hepatitis B Vaccines (1 of 3 - 19+ 3-dose series)11/18/2002Pneumococcal Vaccine: Pediatrics (0 to 5 Years) and At-Risk Patients (6 to 64 Years) (1 of 2 - PCV)11/18/2002Adult Wacqxes3111/18/2005HPV Vaccines (1 - 3-dose SCDM series)11/18/2010HPV/Cotest 11/18/20133285Ilqknooia58/13/2024COVID-19 Vaccine ( season)2024 01/10/2021, 07/09/2020, 06/11/2020Influenza Vaccine (#1), 10/29/2022ervical Cancer Fwyepoiwx12/25/2028Pap Smear8005/30/2024Zoster Vaccines (1 of 2)11/18/2033HIB VaccinesAged OutNo longer eligible based on patient's age to complete this topicIPV VaccinesAged OutNo longer eligible based on patient's age to complete this topicMeningococcal B VaccineAged OutNo longer eligible based on patient's age to complete this topicMeningococcal VaccineAged OutNo longer eligible based on patient's age to complete this topicRotavirus VaccinesAged OutNo longer eligible based on patient's age to complete this topic Insurance Care Teams Team MemberRelationshipSpecialtyStart DateEnd Date Elvie Greer MD [address] [place] [address] PCP - GeneralNurse Practitioner09/06/24
--- OUTSIDE RECORDS SUMMARY | 2025-01-25 08:07 | XMS_ITS | Clinical Summary ---
Author Organization [facility] Address [address] [place] [address] Care Team Providers Care Marketing Programs Specialist Name Role Phone Unavailable Primary Care Provider Unavailabl e Social History Tobacco UseTypesPacks/DayYears UsedDateSmoking Tobacco: Never Assessed CommentsUnknownSex and Gender InformationValueDate RecordedSex Assigned at Not on fileLegal FsqTtvtnq87/28/2017 8:55 AM ESTGender IdentityNot on fileSexual OrientationNot on file Plan of Treatment Health MaintenanceDue DateLast DoneCommentsAnxiety Fepttyknh78/13/2002Depression Jrkoddict59/13/2002HIV Ftcsuoehn04/13/2002Hepatitis C Ibxxnjshd46/13/2002 DTaP,Tdap,Td Vaccine (1 - Tdap)11/18/2002Hepatitis B Vaccine (1 of 3 - 19+ 3- dose series)11/18/2002Cervical Cancer Dsuyglyoh68/13/2005HPV Vaccine (1 - 3-dose SCDM series)11/18/2010Mammogram Hevhrldxd08/13/2024Covid-19 Vaccine ( - 2024- season)2024Influenza Vaccine (#1)2024 Insurance
--- OUTSIDE RECORDS SUMMARY | 2025-01-25 08:07 | XMS_ITS | Clinical Summary ---
Author Organization [facility] Address [address] [place] [address] Care Team Providers Care Western Philosophy Professor Name Role Phone Elvie Greer NP Unavailable [phone] Crhis Pelaez MD Primary Care Provider [phone] Isa Machado Unavailable Allergies Active AllergyReactionsCriticalityNoted DateCommentsAntihistamines, Diphenhydramine-Type4DiphenhydramineHives,Itching,Rash,UnknownLow 08/09/2019LatexHives,Itching,Rash,FqhawyqEfn50/03/9983Mtpfpgkskx73/25/2024 Medications MedicationSigDispense QuantityRefillsLast FilledStart DateEnd DateStatus Potassium 99 MG tablet 1 (one) time each day at the same timeActive albuterol HFA 90 mcg/act inhaler Indications:Moderate persistent asthma without complication (HCC)Inhale 2 puffs every 6 (six) hours if needed for shortness of breath or wheezing 18 g 4Active estradiol (Climara) 0.05 MG/24HR Indications:Hormone disorderPlace 1 patch over 7 days on the skin 1 (one) time per week 12 patch //6Active celecoxib (CeleBREX) 200 MG capsule Take 200 mg by mouth Daily5Active azelastine (Astelin) 0.1 % nasal spray Indications:Environmental and seasonal allergiesAdminister 2 sprays into each nostril in the morning and 2 sprays before bedtime. Use in each nostril as directed. 90 mL 506Active ipratropium (Atrovent) 0.06 % nasal spray Indications:Environmental and seasonal allergiesAdminister 2 sprays into each nostril in the morning and 2 sprays in the evening and 2 sprays before bedtime. 45 mL 1105Active levothyroxine (Synthroid, Levoxyl) 112 MCG tablet Indications:Hypothyroidism, unspecified typeTake 1 tablet (112 mcg) by mouth Daily 90 tablet 5Active metoprolol succinate XL (Toprol-XL) 50 MG 24 hr tablet Take 50 mg by mouth Dailyctive triamcinolone (Nasacort) 55 MCG/ACT nasal inhaler Administer 2 sprays into each nostril Daily5Active budesonide-formoterol (Symbicort) 160-4.5 MCG/ACT inhaler Indications:Moderate persistent asthma without complication (HCC)Inhale 2 puffs in the morning and 2 puffs before bedtime. Rinse mouth with water after use to reduce aftertaste and incidence of candidiasis. Do not swallow. 30.6 g tive buPROPion XL (Wellbutrin XL) 300 MG 24 hr tablet Indications:Anxiety and depressionTake 1 tablet (300 mg) by mouth in the morning. 90 tablet 5Active famotidine (Pepcid) 20 MG tablet Indications:Gastroesophageal reflux disease, unspecified whether esophagitis presentTake 1 tablet (20 mg) by mouth at bedtime 90 tablet 5Active montelukast (Singulair) 10 MG tablet Indications:Moderate persistent asthma without complication (HCC)Take 1 tablet (10 mg) by mouth at bedtime 90 tablet 5Active pantoprazole (ProtoNix) 40 MG EC tablet Indications:Gastroesophageal reflux disease, unspecified whether esophagitis presentTake 1 tablet (40 mg) by mouth in the morning. Take before meals. Do not crush, chew, or split. 90 tablet 5Active hydrOXYzine pamoate (Vistaril) 25 MG capsule Indications:Anxiety and depressionTAKE 1 CAPSULE BY MOUTH EVERY 8 HOURS NEEDED for itching 90 capsule 5Active Trelegy Ellipta 200-62.5-25 MCG/ACT aerosol powder Indications:Severe persistent asthma with acute exacerbation (HCC)INHALE 1 PUFF BY MOUTH DAILY 60 each 5Active magnesium oxide (Mag-Ox) 400 (240 Mg) MG tablet Indications:HypomagnesemiaTake 1 tablet (400 mg) by mouth Daily 90 tablet Expired Active Problems ProblemNoted DateDiagnosed DateEssential bjjosobvxaig15/13/2025 Assessment & Plan (10/10/2024 6:59 AM EDT): Please check blood pressure daily and record DASH diet Limit caffeine Take medication as directed Contact office if chest pain, pressure, dizziness, shortness of breath, swelling legs Recommend slow position changes Current meds: b eduarda Aortic valve alyurmzd53/13/2025Environmental and seasonal scyucundz58/03/2025 Assessment & Plan (08/08/2024 2:59 PM EDT): Sxs not controlled w antihistamines and nasal steroids Used to take allergy injections in the past Will refer to manager human capital for evaluation Ventricular qpuvmtifuk59/29/2025 Assessment & Plan (08/08/2024 6:58 AM EDT): Noted on holter Check stress test and ECHO Send to cardiology Heart xfacoygkahrn53/15/2025 Assessment & Plan (10/10/2024 7:00 AM EDT): Saw [facility] on 09/15/24, started on b eduarda I have reviewed their notes Assessment & Plan (08/08/2024 6:58 AM EDT): Reviewed holter Will check stress test and ECHO and refer to cardiology Assessment & Plan (06/20/2024 3:43 PM EDT): Check labs: basic and mg Holter 7 days Xsvimvuugtt90/04/2025 Assessment & Plan (10/10/2024 7:02 AM EDT): Current med: levothyroxine Check labs yearly, and prn changes in dose or changes in symptoms Had recent dose change in 09/29 Assessment & Plan (05/09/2024 6:06 AM EST): Current med: levothyroxine Check labs yearly, and prn changes in dose or changes in symptoms Other lqdlcegciyli94/04/2025 Assessment & Plan (06/20/2024 7:11 AM EDT): At last appt, we recommended: Water 64 oz daily, miralax, high fiber foods, and stool softener Assessment & Plan (05/09/2024 9:08 AM EST): Water 64 oz daily Add miralax and stool softener Higher fiber foods Fu in 6 weeks to see if better Status post right knee xglevvzglic51/17/2024ifficulty doywdgf2402/22/2024Mild persistent asthma without mrdshaefcrpz84/03/2024 Assessment & Plan (05/09/2024 6:05 AM EST): Symbicort for maintenance, signulair, as well as albuterol prn Assessment & Plan (02/08/2024 6:14 AM EST): Symbicort for maintenance, signulair, as well as albuterol prn Is UTD on flu shot as well Morbid (severe) obesity due to excess oqmeqkvm21/03/2024 Assessment & Plan (10/10/2024 7:00 AM EDT): [...] for screening mammogram for malignant neoplasm of unvxwv4102/08/2024 Assessment & Plan (02/08/2024 8:50 AM EST): Is already scheduled for 2024 Recurrent ventral hernia with gzcvoqifnalvz40/25/2024 Assessment & Plan (08/31/2023 9:58 AM EDT): No acute symptoms at this time Body mass index (BMI) 45.0-49.9, adult04/13/2023 Assessment & Plan (11/09/2023 2:40 PM EDT): Doing well Arthritis of knee, right04/01/2023 Assessment & Plan (02/08/2024 8:48 AM EST): Is scheduled for TKA right knee, 02/21/24 Assessment & Plan (11/09/2023 2:45 PM EDT): Continue with ortho and weight loss Will refer to rheum for evaluation as well Assessment & Plan (09/30/2023 9:45 AM EDT): Go back to ortho Assessment & Plan (06/29/2023 10:09 AM EDT): Continue with ortho Anxiety and oceqigobyt89/25/2024 Assessment & Plan (10/10/2024 7:00 AM EDT): [...] counseling No active suicide thoughts today Elevated zueoorr1104/01/2023 Assessment & Plan (05/09/2024 6:08 AM EST): In the past, will check a1c GERD (gastroesophageal reflux disease)04/01/2023 Assessment & Plan (08/08/2024 6:58 AM EDT): [...] to tolerate being off of meds Hair loss04/01/20234657Ibotryafclfgmz14/25/2024 Assessment & Plan (10/10/2024 7:01 AM EDT): On magnesium daily Check labs yearly, and prn dose changes or changes in sxs Assessment & Plan (06/20/2024 3:44 PM EDT): Check magnesium Assessment & Plan (05/10/2024 7:52 PM EST): Takes PPI, recommend periodic monitoring Assessment & Plan (05/09/2024 6:09 AM EST): Takes PPI, recommend periodic monitoring Leg txvdcv7404/01/2023Liver function ivvqrieayvp15/25/2024ainful lumpy right tfjtnh7604/01/20239355Erlhchunc56/25/2024 Assessment & Plan (02/08/2024 8:57 AM EST): Needs refill of triamcinolone 0.1% ointment, also saw Rheumatology, considering treatment in the future Assessment & Plan (11/09/2023 2:41 PM EDT): Will send to Rheumatology for evaluation for psoriatic arthritis Resolved Problems ProblemNoted DateDiagnosed DateResolved PbpsMcwqxmlili51/25/202409/05/2023 Assessment & Plan (08/31/2023 10:01 AM EDT): Finish atb Fu in 3 weeks for recheck Consider evaluation for venous insuffiency as well Aura's onglceggmnk59/23/202403/06/2024 Assessment & Plan (02/08/2024 6:15 AM EST): [...] US results Fu in 3 months Abnormal TSH/05/2023 Assessment & Plan (05/18/2023 9:50 AM EDT): Recheck labs in mid August 2023 Non-recurrent acute suppurative otitis media of left ear without spontaneous rupture of tympanic nindzlij57/05/2023 Assessment & Plan (05/18/2023 10:02 AM EDT): Likely related to allergy/sinus component Cont current meds, add atb, fu if not better Internal derangement of right kneeorderline abnormal thyroid function testIntermittent asthma without vfswrtbzcota78Moderate persistent asthma without complication Assessment & Plan (09/30/2023 9:43 AM EDT): Continue current meds She is rinsing mouth out after use as well Assessment & Plan (08/31/2023 9:58 AM EDT): Continue ICS/LABA and singulair Doing well Assessment & Plan (04/13/2023 11:34 AM EST): Restart LABA/ICS and singlair as well Acute postoperative pain of right knee/07/2024 Assessment & Plan (05/18/2023 10:00 AM EDT): [...] Asking for tramadol for severe pain Umbilical faseqz72/cute medial meniscal tear04/01/2023 09/30/2023History of knee mwrliwr34/05/2023 Encounters DateTypeDepartmentCare ZgtcVyzzzmhxoup65/23/2025 9:40 AM EDTOffice Visit [facility] [address] [place] [address] Arnaud Cordova MD Allergic rhinitis due to grass pollen (Primary Dx); Moderate persistent asthma without complication (HCC)12/28/2024amboo flowsheet [facility] [address] [place] [phone] Arnaud Cordova MD 12/28/20248919Zxnfta82/11/2025 11:00 AM EDTOffice Visit [facility] [address] [place] [phone] Arnaud Cordova MD Severe persistent asthma with acute exacerbation (HCC) (Primary Dx); Chronic cfhrmvdy23/11/2025Refill [facility] [address] [place] [address] Arnaud Cordova MD Severe persistent asthma with acute exacerbation (HCC)11/16/2024amboo flowsheet [facility] [address] [place] [address] Arnaud Cordova MD 11/16/20246210Snwtty04/28/2025Refill [facility] [address] [place] [address] Elvie Greer NP Anxiety and qigfhrmynt86/26/2025 3:15 PM EDTOffice Visit [facility] [address] [facility] [address] [place] [phone] Bernardo Silverio DO Recurrent ventral hernia with incarceration (Primary Dx)10/31/2024Travelfrom Last 3 Months Immunizations ImmunizationAdministration DatesNext DueInfluenza, injectable, quadrivalent, preservative free10/29/2022Influenza, seasonal, injectable, preservative free 12/22/2023 Family History Medical HistoryRelationNameCommentsADD / ADHDBrotherAsthmaFatherDalton Britt AsthmaMotherTina priceDiabetesMotherTina priceOsteoarthritisMotherTina britt CancerOthergrandmothergrandfather Bone cancerLymphomaOthergrandmotherAsthma SisterKarin DaveportRelationNameStatusCommentsBrotherFatherDalton PriceDeceased MotherTina priceAliveOthergrandmotherSisterKarin Daveport Social History Tobacco UseTypesPacks/DayYears UsedDateSmoking Tobacco: NeverSmokeless Tobacco: Never Tobacco Cessation:Counseling Given: Not Answered Alcohol UseStandard Drinks/WeekCommentsNever0 (1 standard drink = 0.6 oz pure alcohol)Humiliation, Afraid, Rape, and Kick questionnaireAnswerDate Recorded Within the last year, have you been afraid of your partner or ex-partner?No 04/06/2023Within the last year, have you been humiliated or emotionally abused in other ways by your partner or ex-partner?No04/06/2023Within the last year, have you been kicked, hit, slapped, or otherwise physically hurt by your partner or ex-partner?No04/06/2023Within the last year, have you been raped or forced to have any kind of sexual activity by your partner or ex-partner?No04/06/2023 Social Connection and Isolation PanelAnswerDate RecordedIn a typical week, how many times do you talk on the phone with family, friends, or neighbors?More than three times a week04/06/2023How often do you get together with friends or relatives?Twice a week04/06/2023How often do you attend mosque or mormonism services?Never04/06/2023o you belong to any clubs or organizations such as mosque groups, unions, fraYesmail or athletic groups, or school groups?Yes 04/06/2023How often do you attend meetings of the clubs or organizations you belong to?Never04/06/2023re you , , , , never , or living with a partner?Sbehbwc8704/06/2023UDIT-CAnswerDate RecordedQ1: How often do you have a drink containing alcohol?Never04/06/2023Q2: How many drinks containing alcohol do you have on a typical day when you are drinking? Patient does not drink04/06/2023Q3: How often do you have six or more drinks on one occasion?Never04/06/2023Overall Financial Resource Strain (CARDIA)AnswerDate RecordedHow hard is it for you to pay for the very basics like food, housing, medical care, and heating?Not hard at all04/06/2023HQ-2AnswerDate Recorded Patient Health Questionnaire-2 Bshuh222[facility] [place] of Occupational Health - Occupational Stress QuestionnaireAnswerDate RecordedDo you feel stress - tense, restless, nervous, or anxious, or unable to sleep at night because your mind is troubled all the time - these days?Very much04/06/2023Exercise Vital SignAnswerDate RecordedOn average, how many days per week do you engage in moderate to strenuous exercise (like a brisk walk)?5 days04/06/2023On average, how many minutes do you engage in exercise at this level?70 min04/06/2023Hunger Vital SignAnswerDate RecordedWithin the past 12 months, you worried that your food would run out before you got the money to buymore.Patient declined 04/06/2023Within the past 12 months, the food you bought just didn't last and you didn't have money to get more.Patient /30/2024RAPARE - TransportationAnswerDate RecordedIn the past 12 months, has lack of transportation kept you from medical appointments or from getting medications?No 04/06/2023In the past 12 months, has lack of transportation kept you from meetings, work, or from getting things needed for daily living?No04/06/2023 Housing Stability Vital SignAnswerDate RecordedIn the last 12 months, was there a time when you were not able to pay the mortgage or rent on time?No04/06/2023In the last 12 months, how many places have you lived?In the last 12 months, was there a time when you did not have a steady place to sleep or slept in [facility] (including now)?No04/06/2023CommentsUnknownSex and Gender InformationValueDate RecordedSex Assigned at BirthNot on fileLegal SexFemale 05/20/2022 6:44 PM EDTGender TwgqcleuTltzjq10/24/2024 2:50 PM ESTSexual OrientationNot on file Last Filed Vital Signs Vital SignReadingTime TakenCommentsBlood Meopcgdx885/8608 2:09 PM EDT Wbneg105910/10/2024 2:09 PM JZTJotblldnxyb36.7 ??C (98.1 ??F)10/10/2024 2:09 PM EDTRespiratory Czfu8420 2:09 PM EDTOxygen Oehlynprkn79%10/10/2024 2:09 PM EDTInhaled Oxygen Concentration--Opmenz908 kg (266 lb)12/28/2024 9:58 AM EDT Silirq111.6 cm (5' 6 )10/12/2024 3:33 PM EDTBody Mass Index42.9310/12/2024 3:33 PM EDT Plan of Treatment DateTypeDepartmentCare Team (Latest Contact Info)Kcetdsjajld13/18/2025 1:15 PM ESTOffice Visit [facility] [address] [place] [phone] Tani Pimentel, DO [address] [place] [address] 05/03/2025 2:45 PM ESTOffice Visit [facility] [address] [place] [phone] Bernardo Silverio, DO [address] [place] [address] 06/05/2025 11:00 AM EDTOffice Visit [facility] [address] [place] [phone] Tien Morales DO [address] [place] [address] 08/23/2025 9:40 AM EDTOffice Visit [facility] [address] [place] [phone] Arnaud Cordova MD [address] [place] [address] Health MaintenanceDue DateLast DoneCommentsPneumococcal Vaccine: Pediatrics (0 to 5 Years) and At-Risk Patients (6 to 64 Years) (1 of 2 - PCV)11/18/2002COVID- 19 Vaccine (2024- season)/07/2020, 07/09/2020, 06/11/2020 Szzkpaxgw09/11/419685/ervical Cancer Sxxuylbej81/25/2030HPV/Cotest 05/30/2029Pap Smear/, 05/27/2023Influenza VaccineCompleted 12/26/2024, 12/22/2023, 10/29/2022 Procedures Procedure NamePriorityDate/TimeAssociated DiagnosisCommentsPAP SMEARRoutine 05/30/2024 12:00 AM EDTMM TOMOSYNTHESIS SCREENING BI04/18/2024 11:34 AM EST from Last 3 Months or Most Recently Relevant to Health Maintenance Results * Pap Smear (05/30/2024 12:00 AM EDT)Specimen (Source)Anatomical Location / LateralityCollection Method / VolumeCollection TimeReceived TimeSwabCervical swab / Unknown Narrative Authorizing ProviderResult TypeResult StatusCorey Andrew DOLAB CYTOLOGY ORDERABLESFinal ResultPerforming OrganizationAddressCity/State/ZIP CodePhone Number EXTERNAL LAB * MM TOMOSYNTHESIS SCREENING BI (04/18/2024 11:34 AM EST)Anatomical Region LateralityModalityOtherSpecimen (Source)Anatomical Location / Laterality Collection Method / VolumeCollection TimeReceived Time04/18/2024 11:34 AM EST Narrative 04/18/2024 11:35 AM EST [facility] ?[address] ? [place] [address] ? Mammography Report ? Signed ? Patient: GINETTE,TEREZA K ?MR#: [id number] ?? : 1985 ?Acct:[id number] ?? Age/Sex: 38 / F ?ADM Date: 04/18/24 ?? Loc: MAMMO ? Attending Dr: Tien Morales D.O. ? Ordering Physician: Tien Morales D.O. ?Results: ? Date of Service: 04/18/24 ?Follow Up: ? Procedure(s): MM tomosynthesis screening BI ?? Accession Number(s): [id number] ? cc: Elive Greer NP; Tien Morales D.O. ? Patient Name: ? TEREZA DEARTFahad ? MR#: [id number] ? : 1985 ? Exam Date: 04/18/2024 ?? Ordering Doctor: DR TIEN MORALES . ? RADIOLOGY REPORT ? PROCEDURE: ? MM TOMOSYNTHESIS SCREENING BI ? COMPARISON: ? [facility] DIAGNOSTIC 3D ARELY CAD, 06/12/2020. ? INDICATIONS: ? Screening ? Calculator Name ? NCI Breast Cancer Risk Assessment Tool ?? 5 Year Breast Cancer Risk ? Not Reported. ?? Lifetime Breast Cancer Risk ? Not Reported. ?? Personal Breast Cancer ?No ?? Personal Ovarian Cancer ? No ?? Treatments ? None ?? Family Cancers ? None ? LOCATION: ? [facility] ? BREAST COMPOSITION: ? The breasts are extremely dense, which lowers the ?? sensitivity of mammography. ? FINDINGS: ? DIAGNOSTIC CATEGORY 2--BENIGN FINDING. NO CHANGE FROM COMPARISON. ? Scattered benign-appearing calcifications are present. ??Scattered ?? benign-appearing lymph nodes are present. ? RIGHT BREAST: ??No significant suspicious finding. ? LEFT BREAST: ??No significant suspicious finding. ? RECOMMENDATIONS: ? ROUTINE MAMMOGRAM AND CLINICAL EVALUATION IN 12 MONTHS. ? PLEASE NOTE: ??A NORMAL MAMMOGRAM DOES NOT EXCLUDE THE POSSIBILITY OF BREAST ?? CANCER. ??A CLINICALLY SUSPICIOUS PALPABLE LUMP SHOULD BE BIOPSIED. ? Dictated by: Donnie Addison MD on 04/18/2024 at 11:32 ? Approved by: Donnie Addison MD on 04/18/2024 at 11:34 ? Dictated By: ?Donnie Addison M.D. ? Signed By: ?04/18/24 1135 ? DD/ ? TD/TT: ? Quality Management Coordinator: Procedure Note Radiology, Radiologist, - 04/18/2024 [facility] [place] [id number] Mammography Report Signed Patient: TEREZA NAVARRO KMR#: [id number] : 1985Acct:[id number] Age/Sex: 38 / FADM Date: 04/18/24 Loc: MAMMO Attending Dr: Tien Morales D.O. Ordering Physician: Tien Morales D.O.Results: Date of Service: 04/18/24Follow Up: Procedure(s): MM tomosynthesis screening BI Accession Number(s): [id number] cc: Elvie Greer MOBILE ENGINEER; Tien Morales D.O. Patient Name: TEREZA NAVARRO MR#: [id number] : 1985 Exam Date: 04/18/2024 Ordering Doctor: [...] Treatments None Family Cancers None LOCATION: [facility] BREAST COMPOSITION: The breasts are [...] M.D. Signed By:04/18/24 1135 DD/ 1134 TD/TT: Quality Management Coordinator: Authorizing ProviderResult TypeResult StatusCorey Andrew DOCLINISYNC IMAGINGFinal Result from Last 3 Months or Most Recently Relevant to Health Maintenance Insurance Care Teams Team MemberRelationshipSpecialtyStart DateEnd Date Chris Pelaez MD [address] [place] [address] PCP - GeneralFamily Medicine04/01/23 Isa Machado PA [address] [place] [address] [place] [address] PCP - Medical [place] [employer]03/08/2411 Elvie Greer NP [address] [place] [phone] Nurse PractitionerFamily Medicine04/01/23
--- OUTSIDE RECORDS SUMMARY | 2025-01-25 08:14 | XMS_ITS | CCD ---
Author Organization [facility] Care Team Providers Care Food Sampler Name Role Phone AICHHOLZ, PHYSICIAN/ALLERGY/IMMUNOLOGY ELVIE Primary Care Unavailable ABEL, DR KRISTY Yarbrough Admitting Unavailable ABEL, DR KRISTY Yarbrough Consulting Unavailable ABEL, DR KRISTY Yarbrough Attending Unavailable CHAN RICHEY Consulting Unavailable AICHHOLZ, PHYSICIAN/ALLERGY/IMMUNOLOGY ELVIE Primary Care Unavailable AICHHOLZ, PHYSICIAN/ALLERGY/IMMUNOLOGY ELVIE Consulting Unavailable AICHHOLZ, PHYSICIAN/ALLERGY/IMMUNOLOGY ELVIE Attending Unavailable AICHHOLZ, PHYSICIAN/ALLERGY/IMMUNOLOGY ELVIE Admitting Unavailable AICHHOLZ, PHYSICIAN/ALLERGY/IMMUNOLOGY ELVIE Primary Care Unavailable KARASIYuri ., DR FOFANA Consulting Unavailabl e BO ., DR FOFANA Attending Unavailabl e BO ., DR FOFANA Admitting Unavailabl e Mary Jo Thibodeaux Unavailable Aicmicha FLYING SQUAD WORKER, Elvie Unavailable Chris Pelaez MD Primary Care Provider Adelina SAGASTUME, Jamshid Jha Attending Unavailable Elvie Greer Primary Care Provider MD Ghassan Ramos Attending Provider [phone] Amadormicha FLYING SQUAD WORKER, Elvie Unavailable ELVIE GREER Primary Care Physician [phone] Chan Khan Admitting Unavailable Khan, Chan Hall Attending Unavailable Khan, Chan T Referring Unavailable Khan, Chan T Referring Unavailable Khan, Chan T Admitting Unavailable Khan, Chan T Attending Unavailable Khan, Chan T Attending Unavailable Khan, Chan T Referring Unavailable Khan, Chan T Admitting Unavailable Elis Blackwell Unavailable Unavailable Loren, Chan Hall Admitting Unavailable Loren, Chan Hall Attending Unavailable Loren, Chan T Referring Unavailable Elvie Greer Primary Care Provider Bernardo Silverio DO Attending Provider [phone] Ghassan Ramos Attending Unavailable Aichholz, Elvie J Primary Care Unavailable Ghassan Ramos Admitting Unavailable Aichholnikolas, Elvie Dickerson Primary Care Unavailable Bernardo Silverio Admitting Unavailable Bernardo Silverio Attending Unavailable Jeannette GRIFFIN, Isa Unavailable Aichholz FLYING SQUAD WORKER, Elvie Unavailable Chris Pelaez MD Primary Care Provider [phone] TIMMY JUNG Attending Unavailable TIMMY JUNG Attending Unavailable Jeannette GRIFFIN, Isa Unavailable KYLEE FERNANDEZ Attending Unavailable KHAN, CHAN T Referring Unavailable RAMBASEK, PRABHAKAR Groves Attending Unavailable MARIANO MCBRIDE Attending Unavailable KHAN, CHAN T Referring Unavailable RAMBASEK, PRABHAKAR Groves Attending Unavailable BERNARDO SILVERIO Attending Unavailable BERNARDO SILVERIO Attending Unavailable AICHHOLZ, ELVIE Referring Unavailable AICHHOLZ, ELVIE Attending Unavailable JAVIER MORALES Attending Unavailable RAMBASEK, PRABHAKAR Groves Attending Unavailable AICHHOLZ, ELVIE Referring Unavailable AICHHOLZ, ELVIE Attending Unavailable JAVIER MORALES Attending Unavailable KHAN, CHAN Hall Attending Unavailable KHAN, CHAN T Referring Unavailable KHAN, CHAN T Referring Unavailable AICHHOLZ, ELVIE Attending Unavailable JAVIER MORALES Attending Unavailable FERNANDEZKYLEE Attending Unavailable KHAN, CHAN T Referring Unavailable FERNANDEZ, KYLEE Attending Unavailable KHAN, CHAN T Referring Unavailable FERNANDEZ, KYLEE Attending Unavailable KHAN, CHAN T Referring Unavailable AICHHOLZ, ELVIE Attending Unavailable FERNANDEZKYLEE Attending Unavailable KHAN, CHAN T Referring Unavailable FERNANDEZ, KYLEE Attending Unavailable KHAN, CHAN T Referring Unavailable FERNANDEZ, KYLEE Attending Unavailable KHAN, CHAN T Referring Unavailable SUMEET MEDRANO Attending Unavailable KHAN, CHAN T Referring Unavailable FERNANDEZ, KYLEE Attending Unavailable KHAN, CHAN T Referring Unavailable ELIS CARDENAS Attending Unavailable KHAN, CHAN T Referring Unavailable FERNANDEZ, KYLEE Attending Unavailable KHAN, CHAN T Referring Unavailable SUMEET MEDRANO Attending Unavailable KHAN, CHAN T Referring Unavailable FERNANDEZ, KYLEE Attending Unavailable KHAN, CHAN T Referring Unavailable BALDOMERO STEPHENSON Attending Unavailable KHAN, CHAN T Referring Unavailable MARIANO MCBRIDE Attending Unavailable KHAN, CHAN T Referring Unavailable MCBRIDE, MARIANO Yun Attending Unavailable KHAN, CHAN T Referring Unavailable FERNANDEZ, KYLEE Attending Unavailable KHAN, CHAN T Referring Unavailable AICHHOLELVIE Kovacs Attending Unavailable KHAN, CHAN T Attending Unavailable KHAN, CHAN T Referring Unavailable KHAN, CHAN T Attending Unavailable KHAN, CHAN T Referring Unavailable KHAN, CHAN T Referring Unavailable FERNANDEZ, KYLEE Attending Unavailable KHAN, CHAN T Referring Unavailable MCBRIDE, MARIANO Yun Attending Unavailable KHAN, CHAN T Referring Unavailable BALDOMERO STEPHENSON Attending Unavailable KHAN, CHAN T Referring Unavailable MCBRIDE, MARIANO Yun Attending Unavailable KHAN, CHAN T Referring Unavailable Aichholz Elvie HUGHES Primary Care Provider Bernardo Silverio DO Attending Provider [phone] Percy LUNSFORD-CElvie Attending Provider Allergies Allergy ClassificationReported Allergen(s)Allergy TypeDate of OnsetReaction(s) Facility (1 source)diphenhydrAMINEDrug AllergySamaritan [facility] Repository (10 sources)Latex; Translations: [Latex]Drug allergy (disorder)87-53-3082Hhepzec Reaction, HivesThUC [facility] (11 sources)diphenhydrAMINE; Translations: [diphenhydramine]Drug Allergy 27-78-4822Npvchce (qualifier value)[facility] HospitalComment on above:hives itching rash (1 source)LatexPropensity to adverse reactionsUnknowBarnes-Jewish Saint [facility] [employer] Other (20 sources)diphenhydrAMINEDrug Zncxekj68-11-2003Oybdi, Itching, Rash, Unknown [facility] (20 sources)LatexPropensity to adverse ltlzcwueo24-87-8560Koqev, Itching, Rash, UnknownNOMS Healthcare (20 sources)Prednisone; Translations: [predniSONE]Propensity to adverse ojmontkgc75-79-7065[facility] (20 sources)Antihistamines, Diphenhydramine-TypePropensity to adverse reactions 55-25-9230[facility] (2 sources)predniSONE; Translations: [prednisone]Drug AllergyUnknown (qualifier value)[facility] (1 source)diphenhydrAMINEDrug Fqlyrbm69-46-5244IbazwyrlkWilson [address] Hospital Repository (1 source)LatexDrug allergy (disorder)80-41-2758FqmyzpqjyWilson Street Hospital Repository (1 source)Metoprolol; Translations: [METOPROLOL]Drug Nqctmco43-17-0815RnfnjfihrwThe [facility] Repository (1 source)natural latex rubber; Translations: [LATEX, NATURAL RUBBER]Propensity to adverse reactions to drug (disorder)92-19-3823IumdwfxwayThe Surgical Hospital [facility] Repository (1 source)AntihistaminesAllergy to tinjlvkfr13-65-1964Lfmuizr ReactionWilson Street HospitalComment on above:prednisone Medications Current Medications MedicationDrug Class(es)DatesSig (Normalized)Sig (Original)8 hr acetaminophen 650 mg extended release oral tablet (1 source)take 2 tablets by mouth every eight hoursAcetaminophen ER 650 MG 2 tablets as needed Orally every 8 hrs Activeacetaminophen 325 mg / HYDROcodone bitartrate 5 mg oral tablet (4 sources)Opioid AgonistStart: 02-22-2024 End: 21-87-3315picj 1-2 tablets by mouth every four hours for painHYDROcodone- acetaminophen ([place]) 5-325 MG tablet Indications: Primary osteoarthritis of right kneeTake 1-2 tablets by mouth every 4 (four) hours if needed for severe pain (surgical pain) for up to 7 days 50 tablet 02/28/2024 03/06/2024 Active acetaminophen 325 mg / oxyCODONE hydrochloride 5 mg oral tablet (2 sources)Opioid AgonistStart: 02-16-2024 End: 87-96-2533zqww 1-2 tablets by mouth every four hours as needed for pain Percocet 5 mg-325 mg oral tablet See Instructions, 50 tab(s), Refill(s) 0, Take one to two every 4 hours as needed for pain. Start Date: 02/16/24 Status: [id number] 200 actuat albuterol 0.09 mg/actuat metered dose inhaler (20 sources)beta2-Adrenergic AgonistStart: 45-76-9574cnnu 1 puff(s) by inhalation four times daily as neededAlbuterol Sulfate 90 mcg/actuation HFA aerosol inhaler Active 2 PUFF INHALATION Four times daily asneeded January 06, 2025 11:00pm Complies with drug therapyStart: 24-20-7460atuk 2 puff(s) by inhalation every six hours for wheezingalbuterol HFA 90 mcg/act inhaler Indications: Moderate persistent asthma without complication (HCC)Inhale 2 puffs every 6 (six) hours if needed for shortness of breath or wheezing 18 g 09/30/2023 ActiveStart: 04-01-2023 End: 17-44-7911dyys 2 puff(s) by inhalation every six hours for wheezing albuterol HFA 90 mcg/act inhaler Indications: Moderate persistent asthma without complication (CMS/HCC) Inhale 2 puffs every 6 (six) hours if needed for shortness of breath or wheezing 18 g 0 04/01/2023 05/01/2023 ActiveAlbuterol (Eqv-ProAir HFA) 90 mcg/inh inhalation aerosol (2 sources)Start: 15-31-4608Qgfgunlwu (Eqv-ProAir HFA) 90 mcg/inh inhalation aerosol 2 inh, Inhalation, q6hr Shortness of breath or wheezing, Refill(s) 0 Start Date: 01/21/24 Status: Orderedaspirin 325 mg oral tablet (10 sources)Platelet Aggregation Inhibitor, Nonsteroidal Anti-inflammatory Drug Start: 02-16-2024 End: 52-97-7180jehm 1 tablet by mouth once dailyaspirin 325 MG EC tablet Indications: Right knee pain, unspecified chronicity Take 1 tablet (325 mg) by mouth Daily Start Day after Surgery 30 tablet 02/16/2024 03/17/2024 Active azelastine hydrochloride 0.137 mg/actuat metered dose nasal spray (20 sources)Histamine-1 Receptor AntagonistStart: 05-92-7155Bwcxzjxuqb 137 mcg (0.1 %) spray,non-aerosol Active 2 SPRAY INTRANASAL Twice daily January 06, 2025 11:00pm Complies with drug therapyStart: 09-07-2024 End: 01-07-0107qoki 2 spray(s) nasal route in the morningazelastine (Astelin) 0.1 % nasal spray Indications: Environmental and seasonal allergies Administer2 sprays into each nostril in the morning and 2 sprays before bedtime. Use in each nostril as directed. 90 mL 3 09/07/2024 09/07/2025 Activebudesonide-formoterol 160 mcg-4.5 mcg/inh Inh Aer w/adapter (2 sources)Start: 66-15-9670uetlwytzbu-formoterol 160 mcg-4.5 mcg/inh Inh Aer w/adapter 2 inh, Inhalation, BID Shortness of breath or wheezing, Refill(s) 0 Start Date: 01/21/24 Status: Zqnnrjd75 hr buPROPion hydrochloride 300 mg extended release oral tablet (20 sources)AminoketoneStart: 35-85-6996kkkr 1 tablet by mouth once daily Bupropion Hcl 300 mg tablet extended release 24 hr Active 300 MG PO Daily 90 January 11, 2025 1:36pm Anxiety and depression Anxiety disorder, unspecified Depression, unspecified Complies with drug therapyStart: 59-12-1854Bmvrzdxdm Hcl Active MG PO November 26, 2023 12:00amStart: 09-28-2023 End: 33-53-5564mswg 1 tablet by mouth every twenty-four hoursBupropion Hcl 300 mg tablet extended release 24 hr Discontinued MG PO November 25, 2023 11:00pm January 11, 2025 1:39pmStart: 04-13-2023 End: 83-00-0459htkv 1 tablet by mouth every twenty-four hours in the morning buPROPion XL (Wellbutrin XL) 150 MG 24 hr tablet Indications: Anxiety and depression (CMS/HCC) Take1 tablet (150 mg) by mouth in the morning. Do not crush, chew, or split.. 30 tablet 1 04/13/2023 05/13/2023 Activecalcitriol 0.21583 mg oral capsule (20 sources)Vitamin D3 AnalogStart: 01-21-2024 End: 43-83-5872vmirufkobe (Rocaltrol) 0.25 MCG capsule Take 0.25 mcg by mouth 01/21/2024 05/09/2024 Discontinued (Therapy completed)Start: 94-92-2025lght 1 capsule by mouth once dailycalcitriol 0.25 mcg Cap 0.25 mcg = 1 cap(s), Oral, Daily, Refills(s) 0, Prophylaxis Start Date: 01/21/24 Status: Orderedtake 1 capsule by mouth in the morningcalcitriol (Rocaltrol) 0.25 MCG capsule Take 0.25 mcg by mouth in the morning. 0 Activecelecoxib 200 mg oral capsule (20 sources)Nonsteroidal Anti-inflammatory DrugStart: 11-26-2023 End: 00-29-1031ltae 1 capsule by mouth once dailycelecoxib (CeleBREX) 200 MG capsule Take 200 mg by mouth Daily 07/08/2024 ActiveStart: 60-03-3567Yivofcttg Active MG PO November 26, 2023 12:00amStart: 10-21-2023 End: 07-68-0255mdku 1 capsule by mouth once dailycelecoxib (CeleBREX) 200 MG capsule Indications: Arthritis of knee, right , Right knee pain, unspecified chronicity Take 1 capsule (200 mg) by mouth Daily 30 capsule 11 10/21/2023 11/20/2023 Activecetirizine hydrochloride 10 mg oral tablet (1 source)Histamine-1 Receptor Antagonisttake 1 tablet by mouth once dailyZyrTEC 10 MG 1 tablet Orally Once a day Goviyo28 hr dilTIAZem hydrochloride 180 mg extended release oral capsule (1 source)Calcium Channel BlockerStart: 13-71-3195ivxg 1 capsule by mouth every twenty-four hoursDiltiazem Hcl 180 mg capsule,extended release 24hr Active MG PO January 11, 2025 12:00am Complieswith drug therapydocusate sodium 100 mg oral capsule (3 sources)Start: 02-16-2024 End: 56-50-5408vjrt 1 capsule by mouth twice daily as needed for constipation docusate sodium (Colace) 100 MG capsule Indications: Right knee pain, unspecified chronicity Take 1capsule (100 mg) by mouth 2 (two) times a day as needed for constipation for up to 10 days 20 capsule 1 02/16/2024 02/26/2024 Fcemra169 hr estradiol 0.70088 mg/hr transdermal system (20 sources)EstrogenStart: 42-30-9321Jnzszzqgh 0.05 mg/24 hr patch weekly Active 1 PATCH TOPICAL every week January 06, 2025 11:00pm Complies with drug therapy Start: 08-07-2024 End: 78-96-1268ilruzvorm (Climara) 0.05 MG/24HR Indications: Hormone disorder Place 1 patch over 7 days on the skin 1 (one) time per week 12 patch 3 08/07/2024 08/07/2025 ActiveFish Oils (2 sources)Start: 37-40-8826dgqr 1 capsule by mouth once dailyFish Oil 1000 mg oral capsule 1,000 mg = 1 cap(s), Oral, Daily, Refills(s) 0, Prophylaxis Start Date: 01/21/24 Status: Orderedtake 1 capsule by mouth once dailyFish Oil 1000 MG 1 capsule Orally Once a day ZlnbbjXstelvcewxj-Bhrfzhiyj-Xfvgna (Trelegy Ellipta) 200-62.5-25 MCG/ACT aerosol powder (3 sources)Start: 11-16-2024 End: 71-98-3436wzsk 1 puff(s) by inhalation once daily Dpyshzjavya-Tleuspqvf-Rezrtk (Trelegy Ellipta) 200-62.5-25 MCG/ACT aerosol powder Indications: Severe persistent asthma with acute exacerbation (HCC) Inhale 1 puff Daily 1 each 11/16/2024 11/17/2024 DiscontinuedStart: 20-78-9754hwyy 1 puff(s) by inhalation once sptslTrgofztlpec-Ejckskzcz-Swesuy (Trelegy Ellipta) 200-62.5-25 MCG/ACT aerosol powder Indications: Severe persistent asthma with acute exacerbation (HCC) Inhale 1 puff Daily 1 each 11/16/2024 YrmyjaQbocfthfiul-Mwagdzhdq-Eiidooxi (1 source)Start: 32-00-5738Wocfwavafhg-Umeclidin-Vilanter (Trelegy Ellipta) 200-62.5-25 mcg blister with device Active 1 INH INHALATION daily January 06, 2025 11:00pm Complies with drug therapyhydrOXYzine pamoate 25 mg oral capsule (20 sources)AntihistamineStart: 27-15-6708zjpj 1 capsule by mouth four times daily as needed for anxietyhydrOXYzine pamoate 25 mg Cap 25 mg = 1 cap(s), Oral, QID, PRN as needed for anxiety, Refills(s) 0 Start Date: 01/21/24 Status: OrderedStart: 06-64-1720Qyvezrtavdl Pamoate Active MG PO November 26, 2023 12:00amStart: 09-28-2023 End: 75-14-2661vctl 1 capsule by mouth every eight hours as needed for nausea and vomitingHydroxyzine Pamoate 25 mg capsule Active 25 MG PO Every 8 hours as needed for nausea and vomiting 90 2 January 01, 2025 11:40am Complies with drug therapyStart: 04-13-2023 End: 53-54-5927gvvv 1 capsule by mouth every eight hourshydrOXYzine pamoate (Vistaril) 25 MG capsule Indications: Anxiety and depression (CMS/HCC) Take 1 ca psule (25 mg) by mouth every 8 (eight) hours Anxiety 90 capsule 0 04/13/2023 05/13/2023 Activeipratropium bromide 0.042 mg/actuat metered dose nasal spray (20 sources)AnticholinergicStart: 93-59-8732Ojeejmnghqw [place] 42 mcg (0.06 %) spray,non-aerosol Active INTRANASAL January 06, 2025 11:00pm Complies with drug therapyStart: 09-07-2024 End: 92-46-5884rmvf 2 spray(s) nasal route in the morning, then take 2 spray(s) nasal route in the evening, then take 2 spray(s) nasal route at bedtime ipratropium (Atrovent) 0.06 % nasal spray Indications: Environmental and seasonal allergies Administer 2 sprays into each nostril in the morning and 2 sprays in the evening and 2 sprays before bedtime. 45 mL 11 09/07/2024 Active magnesium oxide 400 mg oral tablet (20 sources)Start: 01-11-2025 End: 83-97-1344kpqh 1 tablet by mouth twice dailyMagnesium Oxide 400 mg (241.3 mg magnesium) tablet Active 400 MG PO Twice daily 180 0 January 1:37pm Hypomagnesemia Hypomagnesemia Complies with drug therapyStart: 10-03-2024 End: 14-81-1974eopx 1 tablet by mouth once dailyMagnesium Oxide 400 mg (241.3 mg magnesium) tablet Discontinued 400 MG PO Daily January 06, 2025 11:00pm January 11, 2025 1:26pmStart: 05-10-2024 End: 66-86-0401dnbx 1 tablet by mouth in the morningmagnesium oxide (Mag-Ox) 400 (240 Mg) MG tablet Indications: Hypomagnesemia Take 1 tablet (400 mg) by mouth in the morning and 1 tablet (400 mg) before bedtime. 60 tablet 1 06/27/2024 08/08/2024 ActiveStart: 75-04-0941fkev 1 tablet by mouth in the morningmagnesium oxide (Mag-Ox) 400 (240 Mg) MG tablet Take 400 mg by mouth in the morning. 0 08/13/2022 Activemeloxicam 7.5 mg oral tablet (1 source)Nonsteroidal Anti-inflammatory Drugtake 1 tablet by mouth every twenty-four hoursMeloxicam 7.5 MG 1 tablet Orally Once a day ActiveMisc Natural Products (Osteo Bi-Flex Adv Triple St) tablet (3 sources)Misc Natural Products (Osteo Bi-Flex Adv Triple St) tablet Take by mouth 0 Activemontelukast 10 mg oral tablet (20 sources)Leukotriene Receptor AntagonistStart: 14-64-7988Ukhqgdcutli Active MG PO November 26, 2023 12:00amStart: 09-28-2023 End: 89-45-5999Fpzahzcycmg 10 mg tablet Active MG PO November 25, 2023 11:00pm Complies with drug therapyStart: 04-13-2023 End: 99-06-2421mbyx 1 tablet by mouth at bedtimemontelukast (Singulair) 10 MG tablet Indications: Moderate persistent asthma without complication (CMS/HCC) Take 1 tablet (10 mg) by mouth at bedtime 90 tablet 1 04/13/2023 07/12/2023 ActiveNasacort Allergy 24HR (2 sources)Start: 78-56-0795Kobvkqjj Allergy 24HR 1 spray(s), Nasal, Daily, Refill(s) 0, Allergy symptoms Start Date: 01/25/24 Status: OrderedOmega-3 Fatty Acids (Fish Oil) 1000 MG capsule delayed-release (3 sources)[place]-3 Fatty Acids (Fish Oil) 1000 MG capsule delayed-release Take by mouth 0 Activeomeprazole 20 mg delayed release oral capsule (4 sources)Proton Pump InhibitorStart: 04-13-2023 End: 47-74-9938uhzm 1 capsule by mouth in the morningomeprazole (PriLOSEC) [address] capsule Indications: Gastroesophageal reflux disease, unspecified whether esophagitis present Take 1 capsule (20 mg) by mouth in the morning and 1 capsule (20 mg) before bedtime. 180 capsule 1 04/13/2023 07/12/2023 Activetake 1 tablet by mouth twice dailyOmeprazole 20 MG 1 tablet 30 minutes before morning meal Orally Twice a day ActiveOsteo Bi-Flex Adv Double St (1 source)Osteo Bi-Flex Adv Double St 2 tabs daily Activepantoprazole 40 mg delayed release oral tablet (20 sources)Proton Pump InhibitorStart: 58-15-6738Zzkssmljsgfh Active MG PO November 26, 2023 12:00amStart: 09-30-2023 End: 56-71-7392eglg 1 tablet by mouth once dailyPantoprazole 40 mg tablet,delayed release (DR/EC) Active 40 MG PO Daily 90 January 11, 2025 1:37pm Gastroesophageal reflux disease Gastro-esophageal reflux disease without esophagitis Complies with drug therapypolyethylene glycol 3350 54992 mg powder for oral solution (9 sources)Osmotic LaxativeStart: 05-09-2024 End: 48-20-2008yekt 4 [oz_av] by mouth once dailypolyethylene glycol, PEG, 3350 (MiraLax) 17 GM/SCOOP powder Indications: Other constipation Take 17g by mouth Daily Mix in 4 oz fluid and drink 510 g 2 05/09/2024 06/08/2024 ActivePotassium (20 sources)Potassium 99 MG tablet 1 (one) time each day at the same time Active Potassium 99 MG tablet 1 (one) time each day at the same time 0 Activetake 2 tablets by mouth once dailyPotassium 99 MG 2 tablet Orally Once a day Active potassium chloride 1.33 meq oral tablet (2 sources)Start: 33-74-5640ifnx 1 tablet by mouth once dailypotassium chloride 99 mg oral tablet 99 mg = 1 tab(s), Oral, Daily, # 100 tab(s), Refills(s) 0, Prophylaxis Start Date: 01/21/24 Status: Orderedprogesterone 100 mg oral capsule (20 sources)ProgesteroneStart: 08-07-2024 End: 35-56-4359kauj 1 capsule by mouth once dailyprogesterone (Prometrium) 100 MG capsule Indications: Hormone disorder Take 1 capsule (100 mg) by mouth Daily 90 capsule 3 08/07/2024 11/05/2024 ActivetraMADol hydrochloride 50 mg oral tablet (17 sources)Opioid AgonistStart: 08-12-2023 End: 35-10-1667lgnd 1 tablet by mouth every twenty-four hours as neededtraMADol (Ultram) 50 MG tablet Take 50 mg by mouth Daily as needed 08/12/2023 02/08/2024 Discontinued (Therapy completed)Start: 04-14-2023 End: 36-54-2857gyvSQBcs (Ultram) 50 MG tablet Indications: Chronic pain of right knee Take 1 tablet (50 mg) by mouth as needed at bedtime for severe pain for up to 15 days 15 tablet 0 04/14/2023 04/29/2023 ActiveStart: 04-13-2023 End: 02-59-1901epaEPGjb (Ultram) 50 MG tablet Indications: Chronic pain of right knee Take 1 tablet (50 mg) by mouth as needed at bedtime for severe pain for up to 10 days 15 tablet 0 04/13/2023 04/14/2023 Discontinued (Reorder)Trelegy Ellipta 200-62.5-25 MCG/ACT aerosol powder (4 sources)Start: 78-13-1296qghy 1 puff(s) by mouth once dailyTrelegy Ellipta 200-62.5-25 MCG/ACT aerosol powder Indications: Severe persistent asthma with acuteexacerbation (HCC) INHALE 1 PUFF BY MOUTH DAILY 60 each 11 11/17/2024 Activetriamcinolone acetonide 0.055 mg/actuat metered dose nasal spray (20 sources)CorticosteroidStart: 90-10-2894rwdv 2 spray(s) nasal route once dailytriamcinolone (Nasacort) 55 MCG/ACT nasal inhaler Administer 2 sprays into each nostril Daily 10/05/2024 ActiveStart: 04-05-2024 End: 93-69-8275ckkn 2 spray(s) nasal route once dailytriamcinolone (Nasacort) 55 MCG/ACT nasal inhaler Indications: Moderate persistent asthma, uncomplicated (CMS/HCC) Administer 2 sprays into each nostril Daily 50.7 mL 1 05/09/2024 08/08/2024 ActiveStart: 02-08-2024 End: 00-45-3227lvpigmllucjlq (Kenalog) 0.1 % ointment Indications: Psoriasis (CMS/HCC) Apply topically 2 (two) times a day for 28 days Apply to affected area, as needed, avoid use on face 80 g 02/08/2024 03/07/2024ctiveStart: 94-32-9515Ulliijrusoqgq Acetonide 55 mcg aerosol,spray Active INTRANASAL November 25, 2023 11:00pm Complies with drug therapyStart: 09-28-2023 End: 40-67-7492Crbtbljkxamrm Acetonide Active INTRANASAL November 26, 2023 12:00amStart: 04-13-2023 End: 27-06-2487brtf 2 spray(s) nasal route in the morningtriamcinolone (Nasacort) 55 MCG/ACT nasal inhaler Indications: Moderate persistent asthma without complication (CMS/HCC) Administer 2 sprays into each nostril in the morning. 50 g 1 04/13/2023 07/12/2023 Active End: 94-59-8175auqi 2 spray(s) nasal route once dailytriamcinolone (Nasacort) 55 MCG/ACT nasal inhaler instill 2 (TWO) sprays IN EACH NOSTRIL DAILY 04/05/2024 Discontinued Completed/Discontinued Medications MedicationDrug Class(es)DatesSig (Normalized)Sig (Original)120 actuat budesonide 0.16 mg/actuat / formoterol fumarate 0.0045 mg/actuat metered dose inhaler (20 sources)Corticosteroid, beta2-Adrenergic AgonistStart: 11-26-2023 End: 64-91-4442Ruklllpoio-Formoterol 160-4.5 mcg/actuation HFA aerosol inhaler Discontinued INHALATION November 25, 2023 11:00pm January 07, 2025 7:50pm Start: 09-30-2023 End: 25-91-6209pepi 2 puff(s) by inhalation in the morningbudesonide-formoterol (Symbicort) 160-4.5 MCG/ACT inhaler Indications: Moderate persistent asthma wi thout complication (HCC) Inhale 2 puffs in the morning and 2 puffs before bedtime. Rinse mouth withwater after use to reduce aftertaste and incidence of candidiasis. Do not swallow. 30.6 g 1 10/10/2024 01/08/2025 ActiveStart: 04-13-2023 End: 09-87-4454tbyl 2 puff(s) by inhalation in the morningbudesonide-formoterol (Symbicort) 160-4.5 MCG/ACT inhaler Indications: Moderate persistent asthma wi thout complication (CMS/HCC) Inhale 2 puffs in the morning and 2 puffs before bedtime. Rinse mouth with water after use to reduce aftertaste and incidence of candidiasis. Do not swallow.. 3 each 1 04/13/2023 07/12/2023 Activecephalexin 500 mg oral capsule (3 sources)Cephalosporin AntibacterialStart: 11-26-2023 End: 79-51-3536iyup 1 capsule by mouth three times dailyCephalexin 500 mg capsule Discontinued 500 MG PO Three times daily 21 7 0 November 25, 2023 11:00pm January 11, 2025 5:57amfamotidine 20 mg oral tablet (20 sources)Histamine-2 Receptor AntagonistStart: 75-55-7793Ttvaihygqf Active MG PO November 26, 2023 12:00amStart: 09-30-2023 End: 48-94-4758Vdxbuuovxd 20 mg tablet Discontinued MG PO November 25, 2023 11:00pm January 07, 2025 7:50pmfluconazole 150 mg oral tablet (3 sources)Azole AntifungalStart: 11-26-2023 End: 80-30-7014Bemtvtymilu 150 mg tablet Discontinued 150 MG PO Q3D 2 0 0 November 25, 2023 11:00pm January 07, 2025 7:48pm may repeat x 1 in 3 days if neededibuprofen 800 mg oral tablet (7 sources)Nonsteroidal Anti-inflammatory DrugStart: 11-26-2023 End: 40-64-3359Rzsfzirse 800 mg tablet Discontinued MG PO November 25, 2023 11:00pm January 07, 2025 7:48pmStart: 06-40-8650Mzqnrzcpg Active MG PO November 26, 2023 12:00amStart: 08-05-2023 End: 78-31-3664xrpa 1 tablet by mouth twice daily as neededibuprofen 800 MG tablet Take 800 mg by mouth 2 (two) times a day as needed 08/05/2023 11/09/2023 Discontinued (Therapy completed)levothyroxine sodium 0.112 mg oral tablet (20 sources)l-ThyroxineStart: 01-07-2025 End: 79-48-6556wglb 1 tablet by mouth once dailyLevothyroxine 112 mcg tablet Discontinued 112 MCG PO Daily January 06, 2025 11:00pm January 1:25pmStart: 11-29-2024 End: 28-70-9092jedp 1 tablet by mouth once dailyLevothyroxine 125 mcg tablet Active 125 MCG PO Daily 90 0 January 11, 2025 1:37pm Acquired hypothyroidism Hypothyroidism, unspecified Complies with drug therapyStart: 09-26-2024 End: 94-69-5776qtxr 1 tablet by mouth once dailylevothyroxine (Synthroid, Levoxyl) 112 MCG tablet Indications: Hypothyroidism, unspecified type Take 1 tablet (112 mcg) by mouth Daily 90 tablet 09/26/2024 ActiveStart: 07-12-2024 End: 53-89-7246ydzp 1 tablet by mouth before mealtimelevothyroxine (Synthroid, Levoxyl) 100 MCG tablet Indications: Hypothyroidism, unspecified type Take 1 tablet (100 mcg) by mouth in the morning. Take before meals. 90 tablet 07/12/2024 09/26/2024 Discontinued (Ineffective)Start: 05-10-2024 End: 80-97-6124qpbb 1 tablet by mouth before mealtimelevothyroxine (Synthroid) 88 MCG tablet Indications: Hypothyroidism, unspecified type (CMS/HCC) Take 1 tablet (88 mcg) by mouth in the morning. Take before meals. 90 tablet 05/10/2024 07/12/2024 Discontinued (Therapy completed)Start: 34-56-8893mfrg 1 tablet by mouth once dailylevothyroxine 75 mcg (0.075 mg) Tab 75 mcg = 1 tab(s), Oral, Daily, Refills(s) 0, Thyroid Start Date: 01/21/24 Status: OrderedStart: 46-65-5945Hhmvnstjbwlvd Active MCG PO November 26, 2023 12:00amStart: 11-09-2023 End: 35-86-2393Essccbtmbwmuz 75 mcg tablet Discontinued MCG PO November 25, 2023 11:00pm November 29, 2024 9:42amStart: 09-30-2023 End: 59-31-4192qabt 1 tablet by mouth every hour before mealtimelevothyroxine (Synthroid) 50 MCG tablet Indications: Aura's thyroiditis (CMS/HCC) Take 1 tablet (50 mcg) by mouth in the morning. Take before meals. Take 1 hour prior to any other food or drink or meds. 30 tablet 2 09/30/2023 11/09/2023 Discontinued (Ineffective)24 hr metoprolol succinate 50 mg extended release oral tablet (15 sources)beta-Adrenergic BlockerStart: 09-15-2024 End: 04-68-4962dkrf 1 tablet by mouth once dailyMetoprolol Succinate 50 mg tablet extended release 24 hr Discontinued 50 MG PO daily January 06, 2025 11:00pm January 11, 2025 5:58ammupirocin 0.02 mg/mg topical ointment (3 sources)RNA Synthetase Inhibitor AntibacterialStart: 11-26-2023 End: 00-44-7223Mpsifxtst 2 % ointment Discontinued 1 APPLIC TOPICAL Three times daily 10 0 November 241:00pm January 07, 2025 7:51pm Problems Active Problems Problem ClassificationProblemDateDocumented DateEpisodic/ChronicAbdominal hernia (20 sources)Umbilical hernia; Translations: [Umbilical hernia without obstruction or gangrene]Onset: 04-01-2023 Resolved: 700254-90-4255YjywrdvaRhiriirk reactions (2 sources)Allergic kstxxtbiubh98-64-7904UkcmjwxkRgzirnv disorders (20 sources)Mixed anxiety and depressive disorder; Translations: [Anxiety disorder, unspecified]Onset: 035546-26-1499YqilwroGsekwh (20 sources)Asthma; Translations: [Asthma, unspecified]Onset: 04-01-2023 Resolved: 988980-01-2562NvljiuyQpycpmy dysrhythmias (20 sources)Ventricular arrhythmia; Translations: [Cardiac arrhythmia, unspecified]Onset: 475954-34-1720MylfkqhTgrraku dysrhythmias (20 sources)Palpitations; Translations: [Palpitations]Onset: 06-20-2024 85-92-9327HfqudfwoHvazowlo mellitus without complication (1 source)Type 2 diabetes mellitus without complication; Translations: [Diabetes mellitus without mention of complication, type II or unspecified, not stated as uncontrolled]ChronicDiabetes mellitus without complication (20 sources)Increased glucose level; Translations: [Other abnormal glucose] Onset: 204012-67-3206VsjywbifDegyfddokz disorders (20 sources)Gastro-esophageal reflux disease without esophagitis; Translations: [Gastroesophageal reflux disease]Onset: 025975-87-9310HwbwhowPmlteekoj hypertension (20 sources)Essential hypertension; Translations: [Essential (primary) hypertension]Onset: 124942-53-5022RcrxqkxLnovv valve disorders (17 sources)Aortic valve disorder; Translations: [Nonrheumatic aortic valve disorder, unspecified]Onset: 847144-48-1052EuefkkjTbjxfuiolyvc with complications and secondary hypertension (2 sources)Hypertensive heart disease without heart failure; Translations: [Hypertensive heart disease withoutheart failure]Onset: 39-86-7644Riayapx Immunizations and screening for infectious disease (1 source)Encounter for screening for human papillomavirus (HPV); Translations: [ENC SCREENING HUMAN PAPILLOMAVIRUS]Onset: 36-35-1518CqykwpfvMkbv disorders (2 sources)Depressive fcalvrop99-60-7725HnmmcsuAomqrzjonqpg breast conditions (20 sources)Mastodynia; Translations: [Mastodynia]Onset: EpisodicOsteoarthritis (20 sources)Arthritis of right knee; Translations: [Unilateral primary osteoarthritis, right knee]Onset: 759857-88-2548SlrvuhvUnagg aftercare (11 sources)Patient encounter status; Translations: [Aftercare following joint replacement surgery]80-65-3512LdxuvazUxbwt connective tissue disease (20 sources)History of total knee arthroplasty; Translations: [Presence of right artificial knee joint]Onset: 008999-38-3152RifaagfRxlvf connective tissue disease (3 sources)Artificial knee joint present; Translations: [Presence of right artificial knee joint]69-14-1664VneebhbYnigh connective tissue disease (1 source)Cramp and spasm; Translations: [CRAMP AND SPASM]Onset: 05-31-2022 EpisodicOther connective tissue disease (20 sources)Cramp in lower limb; Translations: [Cramp and spasm]Onset: 431142-57-6182PaormvxxMfsxb endocrine disorders (4 sources)Disorder of endocrine system; Translations: [Endocrine disorder, unspecified]76-08-3123ZagldpzyTyuut gastrointestinal disorders (20 sources)Constipation; Translations: [Other constipation]Onset: 05-09-2024 18-81-8015CvncrgmbUtjfo gastrointestinal disorders (1 source)Dysphagia; Translations: [Dysphagia, unspecified]58-44-3408Gomoxsme Other inflammatory condition of skin (20 sources)Psoriasis; Translations: [Psoriasis, unspecified]Onset: 04-01-2023 70-99-7125QamfjcjJwriw nervous system disorders (20 sources)Difficulty walking; Translations: [Difficulty in walking, not elsewhere classified]Onset: 326516-04-0520CqljqstSdwad nutritional; endocrine; and metabolic disorders (20 sources)Hypomagnesemia; Translations: [Hypomagnesemia]Onset: 04-01-2023 16-72-0844PdyohcvSylru nutritional; endocrine; and metabolic disorders (20 sources)Body mass index 40+ - severely obese; Translations: [Morbid (severe) obesity due to excess calories]Onset: 04-13-2023 Resolved: 767111-99-9529MahvtujRpiub nutritional; endocrine; and metabolic disorders (20 sources)Morbid obesity; Translations: [Morbid (severe) obesity due to excess calories]Onset: 084440-13-7011FsucdpmPysrs nutritional; endocrine; and metabolic disorders (20 sources)Obesity caused by energy imbalance; Translations: [Morbid (severe) obesity due to excess calories]Onset: 701294-76-7183TvzjpwjLrrqw screening for suspected conditions (not mental disorders or infectious disease) (20 sources)Abnormal results of liver function studies; Translations: [Encounter for screening for malignant neoplasm of cervix]Onset: 05-06-2022 Resolved: 20-07-2846FmmtkekyJkizf skin disorders (20 sources)Loss of hair; Translations: [Nonscarring hair loss, unspecified] Onset: 736599-08-8254JydppyfiReztr upper respiratory disease (20 sources)Allergic disposition; Translations: [Other allergic rhinitis]Onset: 691925-84-7364JtebyzqZcpxa upper respiratory disease (2 sources)Chronic rhinitis; Translations: [Chronic rhinitis]85-29-5458Eimcakm Other upper respiratory disease (2 sources)Allergic rhinitis due to grass pollen; Translations: [Allergic rhinitis due to pollen]13-24-9091DsiweeaUzevb upper respiratory disease (1 source)Hoarse; Translations: [Dysphonia]01-60-5280TjdmyfnaJinp and subcutaneous tissue infections (20 sources)Cellulitis of left upper limb; Translations: [Cellulitis of left upper limb]Onset: 08-31-2023 Resolved: 628269-69-8612WafoafjlOvhehdu (2 sources)Ugspnxb96-28-4175MrkehexcCgnigqt disorders (20 sources)Aura thyroiditis; Translations: [Autoimmune thyroiditis]Onset: 06-29-2023 Resolved: 825591-74-2483Hgdhxgt Past or Other Problems Problem ClassificationProblemDateDocumented DateEpisodic/ChronicAbdominal pain (3 sources)Epigastric pain; Translations: [EPIGASTRIC PAIN]Onset: 02-23-2022 EpisodicChronic obstructive pulmonary disease and bronchiectasis (1 source)Bronchitis, not specified as acute or chronic; Translations: [BRONCHITIS NOT SPEC ACUTE/CHRON]Onset: 92-14-6135XyegzdqyUkmla disorders and dislocations; trauma-related (20 sources)Derangement of right knee; Translations: [Unspecified internal derangement of right knee]Onset: 04-01-2023 Resolved: 215455-98-1951RspldiqXqgji disorders and dislocations; trauma-related (20 sources)Acute meniscal tear, medial; Translations: [Other tear of medial meniscus, current injury, unspecified knee, initial encounter]Onset: 04-01-2023 Resolved: 588010-39-0829QhiodrpvKflvb aftercare (1 source)Other custodial (current) drug therapy; Translations: [OTH ASSISTED CURRENT DRUG THERAPY]Onset: 65-07-6293NcmnfuuhHmuza connective tissue disease (20 sources)H/O: knee problem; Translations: [Personal history of other diseases of the musculoskeletal system and connective tissue]Onset: 03-27-2020 Resolved: 488817-75-0991AybnfkipBuvnk nervous system disorders (20 sources)Other acute postprocedural pain; Translations: [Pain in joint, lower leg]Onset: 04-01-2023 Resolved: 848052-79-1146TwyhuxykOmhrl non-traumatic joint disorders (20 sources)Pain in right knee; Translations: [Pain in joint, lower leg]Onset: 04-01-2023 Resolved: 751982-20-1379TtmcmubqNpxfh non-traumatic joint disorders (1 source)Pain in unspecified joint; Translations: [Pain in unspecified joint] Onset: 87-46-9040QefgppnrMldwes media and related conditions (20 sources)Acute suppurative otitis media without spontaneous rupture of ear drum; Translations: [Acute suppurative otitis media without spontaneous rupture of ear drum, left ear]Onset: 05-18-2023 Resolved: 509444-98-8632HhaktnllRvrnmnpgodqo (1 source)Contact with and (suspected) exposure to covid-19 Z20.822Viral infection (1 source)COVID-19 Results Test NameValueInterpretationReference RangeFacilityOffice Visiton 11-30-2024 Follow-up [id number] Wilmer Navarro 1985 F Date Provider Department Center 11/30/2024 30461-GQDLVITIMMY BOWERS YASMINE [facility] Family History Problem Relation Age of Onset Hypertension Sister Heart failure Maternal Grandmother Cardiomyopathy Paternal Grandfather Family Status - Relation Status Age at Mother Alive Father Sister Maternal Grandmother Paternal Grandfather Level of Service:67334 [place] OFFICE/OUTPATIENT ESTABLISHED MOD [facility]DM [facility] and Chemistry - challengeOrdered By: Elvie Greer on 71-36-7725Cmig T4 [Mass/Vol]1.01 ng/dL 0.76-1.46[facility] Qn4.291 m[IU]/LHigh0.358-[address] [facility]CT abdomen pelvis wo conon 43-98-9048IO abdomen pelvis wo [facility] [address] [place], [place] [address] CT Scan Report Signed Patient: Wilmer Navarro MR#: [id number] : 1985 Acct:[id number] Age/Sex: 38 / F ADM Date: 10/19/24 Loc: CT Room: Type: [facility] Attending Dr: Bernardo Silverio DO Copies to: [...] Jr., D.O. 10/19/2024 1:11 PM Dictation Location: [place] [address] Transcribed By: [facility] 10/19/24 1311 Dictated By: Mau Chou Jr, DO 10/19/24 1309 Signed By: 10/19/24 1311[facility] Physician GroupALL THYROID STIM HORMONEon 47-73-0222Wjbjwlbpqrwifi and review of laboratory resultsAbnormSt. Clair Hospital TSH Qn4.948 m[IU]/LHAurora Medical Center in SummitALL THYROXINE (T4) FREEon 60-86-8487Kxhi T4 [Mass/Vol]0.93 ng/dL0.76 - 1.46 ng/dLHannibal Regional HospitalNo Panel Informationon 72-35-5596KOZOIPQJUVWPN HealthcareOffice Visiton 14-00-9373Zrrtwi-up visit [id number] Wilmer Navarro 1985 F Date Provider Department Center 09/15/2024 TIMMY PLATT [facility] Family History Problem Relation Age of Onset Hypertension Sister Heart failure Maternal Grandmother Cardiomyopathy Paternal Grandfather Family Status - Relation Status Age at Sister Maternal Grandmother Paternal Grandfather Level of Service:15250 [place] OFFICE/OUTPATIENT NEW MODERATE MDM 45 MINUTES Reason for Visit and Comments: Palpitations [370985] - Has palpitations and SOB with rest. Has Aura's thyroid disease. Recent Holter monitor showed runs of VT, so PCP ordered stress test. Shortness of Breath [742382] - Says her BP usually runs around 140/90. Dizziness [884338]NormalHocking Valley Community HospitalCA ECHO DOPPLER COMPLETEon 44-32-8642JjkMolalla, [place] [address] Cardiology Report Signed Patient: WILMER NAVARRO MR#: [id number] : 1985 Acct:[id number] Age/Sex: 38 / F ADM Date: 09/05/24 Loc: CARD Attending Dr: Elvie Greer NP Ordering Physician: Elvie Greer NP Date of Service: 09/05/24 Procedure(s): CA echo doppler complete Accession Number(s): [id number] cc: Elvie Greer NP Patient Name: WILMER NAVARRO MR#: [id number] : 1985 Exam Date: 09/05/2024 Ordering Doctor: [...] cm2, 2.52 cm2 AoV Area (VTI): Deceleration Young: Pressure Half-Time: Peak Velocity(Antegrade Flow): 1.31 m/s Peak Gradient(Antegrade Flow): 6.87 mm[Hg] Mean Velocity(Antegrade Flow): Mean Gradient(Antegrade Flow): Velocity Time Integral: Tricuspid Valve Peak Velocity (Regurgitant Flow): 2.36 m/s Peak Velocity: Pulmonic Valve Mean Gradient: Mean Velocity: Peak Velocity: Peak Gradient: 4.08 mm[Hg], 4.44 mm[Hg] Right Atrium Right Atrium Systolic Pressure: 54.89 ml, 54.89 ml Dictated (more content not included)...TBHRadiology, Radiologist, MD - 09/05/2024 [place] [address] Cardiology Report Signed Patient: WILMER NAVARRO MR#: [id number] : 1985 Acct:[id number] Age/Sex: 38 / F ADM Date: 09/05/24 Loc: CARD Attending Dr: Elvie Greer NP Ordering Physician: Elvie Greer NP Date of Service: 09/05/24 Procedure(s): CA echo doppler complete Accession Number(s): [id number] cc: Elvie Greer NP Patient Name: WILMER NAVARRO MR#: [id number] : 1985 Exam Date: 09/05/2024 Ordering Doctor: [...] cm2, 2.52 cm2 AoV Area (VTI): Deceleration Young: Pressure Half-Time: Peak Velocity(Antegrade Flow): 1.31 m/s [...] Dictated By: Timmy Jung M.D. Signed By: 09/05/241417 DD/ 16 TD/TT: Computing Systems Mechanic: [facility] HospitalRadiology Study observation (narrative)[facility] ECHO DOPPLER COMPLETEOrdered By: Radiologist Radiology on 70-68-7858[facility] Work Phone: nm MINOO PERF SPECT REST STRon 87-78-4452QepMol[place], [place] [address] Nuclear Medicine Report Signed Patient: WILMER NAVARRO MR#: [id number] : 1985 Acct:[id number] Age/Sex: 38 / F ADM Date: 08/29/24 Loc: CARD Attending Dr: Elvie Greer NP Ordering Physician: Elvie Greer NP Date of Service: 08/29/24 Procedure(s): NM minoo perf SPECT rest str Accession Number(s): [id number] cc: Elvie Greer NP Patient Name: WILMER NAVARRO MR#: [id number] : 1985 Exam Date: 08/29/2024 Ordering Doctor: [...] the study was pending per attending physician [facility] . For more details please [...] Signed By: 09/05/24 1343 DD/ 1342 TD/TT: Computing Systems Mechanic:TBHRadiology, Radiologist, - 09/05/2024 [place] [address] Nuclear Medicine Report Signed Patient: WILMER NAVARRO MR#: [id number] : 1985 Acct:[id number] Age/Sex: 38 / F ADM Date: 08/29/24 Loc: CARD Attending Dr: Elvie Greer NP Ordering Physician: Elvie Greer NP Date of Service: 08/29/24 Procedure(s): NM minoo perf SPECT rest str Accession Number(s): [id number] cc: Elvie Greer NP Patient Name: WILMER NAVARRO MR#: [id number] : 1985 Exam Date: 08/29/2024 Ordering Doctor: [...] the study was pending per attending physician [facility] . For more details please [...] Signed By: 09/05/24 1343 DD/ 1342 TD/TT: Computing Systems Mechanic: FRANCISCA [facility] Medical CenterRadiology Study observation (narrative)[facility] MINOO PERF SPECT REST STROrdered By: Radiologist Radiology on 55-63-7183[facility] Work Phone: aLL MAGNESIUMon 77-85-1155Ykphxohdp [Mass/Vol]1.8 mg/dL1.8 - 2.4 mg/dLNOSaint John's Health SystemALL THYROID STIM HORMONEon 07-11-2024 Interpretation and review of laboratory resultsAbAspirus Iron River Hospital Qn 3.998 m[IU]/LHighNOIN HealthcareNo Panel Informationon 61-66-9135NMQEKWTFQNMOK HealthcareALL BASIC METABOLIC PANELon 47-51-2331Sxhtp gap [Moles/Vol]12.3 mmol/L NOMS HealthcareCalcium [Mass/Vol]8.9 mg/dL8.5 - 10.1 mg/dLNOSaint John's Health System Chloride [Moles/Vol]104 mmol/L98 - 107 mmol/LNOMS HealthcareCO2 [Moles/Vol]29.5 mmol/L21.0 - 32.0 mmol/LNOMS HealthcareCreatinine [Mass/Vol]0.67 mg/dL0.55 - 1.02 mg/dLNOIN HealthcareGFR/1.73 sq M.predicted CKD-EPI (S/P/Bld) [Vol rate/Area]>60>=60 mL/min/1.73m 2NOMS HealthcareGlucose [Mass/Vol]89 mg/dL74 - 106 mg/dLNOIN HealthcarePotassium [Moles/Vol]3.8 mmol/L3.5 - 5.1 mmol/LNOMS HealthcareSodium [Moles/Vol]142 mmol/L136 - 145 mmol/LNOMS HealthcareTBH EGFR- NON AF TURKS AND [place] ISLANDER>60>=60 mL/min/1.73m 2NOMS HealthcareUrea nitrogen [Mass/Vol]8 mg/dL7.0 - 18.0 mg/dLNOSaint John's Health SystemUrea nitrogen/Creatinine [Mass ratio]11.9 mg/mgNOSaint John's Health SystemALL MAGNESIUMon 34-14-1914Uvrvrfzsapwbtw and review of laboratory resultsAbHills & Dales General HospitalMagnesium [Mass/Vol]1.7 mg/dLLow1.8 - 2.4 mg/dLNOSaint John's Health SystemNo Panel Informationon 70-33-4347VJAZENDLBLSCU HealthcareXR Knee - right 3 Viewson 47-02-2309SUMC HealthcareImaging Result: Xrays taken in the office today saved to the permanent record, AP, sunrise and lateral weightbearing films, show stable position and alignment of the right TKA prosthesis. No sign of loosening, fracture or infection.[facility] CenterRadiology Study observation (narrative)[facility] ALL CBC WITH AUTO DIFFon 08-17-6562OOWYYFIWD ABSOLUTE TBMJ7QHEFSaint John's Health System Basophils/100 WBC (Bld)0.4 %0.2 - 2.0 %NOMHedrick Medical CenterEosinophils/100 WBC (Bld) 2.8 %0.9 - 7.0 %[facility] HospitalErythrocyte distribution width (RBC) [Ratio]12.8 %11.0 - 15.0 %[facility] HospitalHematocrit (Bld) [Volume fraction]37.5 %36.0 - 48.0 %[facility] HospitalHemoglobin (Bld) [Mass/Vol]12.6 g/dL12.0 - 16.0 g/dLHannibal Regional HospitalIMMATURE GRANULOCYTES ABS AUTO0.02NOMS [facility] CenterImmature granulocytes/100 WBC (Bld)0.2 %0.0 - 0.5 %[facility] HospitalLYMPHOCYTES ABSOLUTE AUTO1.9NOSaint John's Health SystemLymphocytes/100 WBC (Bld)22.7 %20.5 - 60.0 %Kindred HospitalH (RBC) [Entitic mass]29.9 pg26.7 - 34.0 pgHannibal Regional HospitalMCHC (RBC) [Mass/Vol]33.6 g/dL29.9 - 35.2 g/dLHannibal Regional HospitalMCV (RBC) [Entitic vol]88.9 fL 81.0 - 99.0 fLHannibal Regional HospitalMONOCYTES ABSOLUTE AUTO0.6NOSaint John's Health System Monocytes/100 WBC (Bld)6.9 %1.7 - 12.0 %[facility] HospitalNEUTROPHILS ABSOLUTE AUTO 5.7NOMS [facility] CenterNeutrophils/100 WBC (Bld)67 %43.0 - 75.0 %[facility] Platelet mean volume (Bld) [Entitic vol]9.5 fL9.5 - 13.5 fLHannibal Regional HospitalTB EO #0.2NOMS [facility] CenterTB [id number] [facility] CenterTB RBC4.22NOMS [facility] CenterTB WBC8.5 [facility] HospitalCLINISYNCNOMS [facility] Medical CenterMM TOMOSYNTHESIS SCREENING BIon 80-85-3888X[address] [address] Mammography Report Signed Patient: DEARTH,WILMER K MR#: [id number] : 1985 Acct:[id number] Age/Sex: 38 / F ADM Date: 04/18/24 Loc: MAMMO Attending Dr: Javier Morales D.O. Ordering Physician: Javier Morales D.O. Results: Date of Service: 04/18/24 Follow Up: Procedure(s): MM tomosynthesis screening BI Accession Number(s): [id number] cc: Elvie Greer FLYING SQUAD WORKER; Javier Morales D.O. Patient Name: WILMER NAVARRO MR#: [id number] : 1985 Exam Date: 04/18/2024 Ordering Doctor: [...] Treatments None Family Cancers None LOCATION: [facility] BREAST COMPOSITION: The breasts are extremely [...] Signed By: 04/18/24 1135 DD/ 1134 TD/TT: Computing Systems Mechanic:TBHRadiology, RadiologistMD - 04/18/[address] [address] Mammography Report Signed Patient: WILMER NAVARRO MR#: [id number] : 1985 Acct:[id number] Age/Sex: 38 / F ADM Date: 04/18/24 Loc: MAMMO Attending Dr: Javier Morales D.O. Ordering Physician: Javier Morales D.O. Results: Date of Service: 04/18/24 Follow Up: Procedure(s): MM tomosynthesis screening BI Accession Number(s): [id number] cc: Elvie Greer FLYING SQUAD WORKER; Javier Morales D.O. Patient Name: WILMER NAVARRO MR#: [id number] : 1985 Exam Date: 04/18/2024 Ordering Doctor: [...] Treatments None Family Cancers None LOCATION: [facility] BREAST COMPOSITION: The breasts are extremely [...] Signed By: 04/18/24 1135 DD/ 1134 TD/TT: Computing Systems Mechanic: FRANCISCA HealthcareRadiology Study observation (narrative)[facility] TOMOSYNTHESIS SCREENING BIOrdered By: Radiologist Radiology on 42-40-8603MNFY [employer] Work Phone: xr Knee - right 3 Viewson 64-85-9069Tfzyunz Result: Xrays taken in the office today saved to the permanent record, Ap, lateral and sunrise weight bearing films, show stable position and alignment of the right knee prosthesis. No sign of loosening or infection.[facility] HealthcareRadiology Study observation (narrative)[facility] HealthcareSurgical Pathology Reporton 85-35-2366Lnkcpppl Pathology Report[address] [place] [address]- Surgical Pathology Report Collected Date/Time: 02/21/2024 11:30 EST Pathologist: Darius SAGASTUME PhD, Tracey Sandoval Received Date/Time: 02/21/2024 14:10 EST Loren DO, Chan Khan DO, Chan Breaux Surgical [...] tissue 2 - Bone after decalcification (DC) DC:[facility] Microscopic Description Microscopic examination performed unless gross only specified.[facility] Ferry HospitalComment on above:Performed By: #### [id number] #### [facility]o [facility] [address] [place] [address]Tksc OR Intraoperative Recordon 66-97-8615Ncca OR Intraoperative RecordMain OR Intraoperative Record IntraOp Document Type FT Summary Primary Physician: Chan Khan DO Finalized Date/Time: 02/22/24 12:52:18 Pt. Name: WILMER NAVARRO.O.B./Sex: 1985 Female Med Rec #: [id number] Physician: Chan Khan DO Financial #: [id number] Pt. Type: A Room/Bed: [place] [address] Admit/Disch: 02/21/24 08:02:21 - 02/21/24 17:00:00 Institution: Case Times FT Entry 1 Patient Times In Room 02/21/24 10:53:00 Out Room 02/21/24 12:25:00 Procedure Times Start 02/21/24 11:20:00 Stop 02/21/24 12:16:00 Anesthesia Times Start 02/21/24 10:53:00 Stop 02/21/24 12:25:00 Block Timeout w/ 02/21/24 10:05:00 Anesthesia Last Modified By: Suki RN, CNOR, Brynn Akhtar 02/21/24 12:25:34 General Comments: 5069-4879 mitwaylon and hermelinda for block. HR 101, SPO2 100%, Nervous. Tolerated procedure well./ T koki TORRE/ Saravanan Cohn Rn 02/22/24 Chart opened to review and send charges LRoth CSFA Case Attendance FT Entry 1 Entry 2 Entry 3 Case Attendee Melvin DNP, LIVE TRUCK TECHNICIAN, Depue Chan Khan DO RN, CNOR, Brynn NGabriel Akhtar Role Performed LIVE TRUCK TECHNICIAN Surgeon - Primary Bookbinding Machine Operator - Primary Time In 02/21/24 10:53:00 02/21/24 10:47:00 02/21/24 10:53:00 Time Out 02/21/24 12:25:00 02/21/24 12:05:00 02/21/24 12:25:00 Procedure KNEE TOTAL KNEE TOTAL KNEE TOTAL ARTHROPLASTY(Right) ARTHROPLASTY(Right) ARTHROPLASTY(Right) Comments R Myriam Resident, Lucille dorsey in to hold Chocran in room leg for prep [phone] Last Modified By: Antoinette Cheung CST RN, CNOR, Brynn Cohn RN, CNOR, Brynn 02/22/24 12:49:03 Giovana 02/21/24 12:25:07 Giovana 02/21/24 12:25:55 Entry 4 Entry 5 Entry 6 Case Attendee Presley CHIMNEY REPAIRER, Shayna Dorsey CST, Tesha Loaiza Role Performed Scrub - Primary CHIMNEY REPAIRER/SA Staff - Other Time In 02/21/24 10:53:00 02/21/24 10:53:00 02/21/24 10:53:00 Time Out 02/21/24 12:09:00 02/21/24 12:25:00 02/21/24 12:20:00 Procedure KNEE TOTAL KNEE TOTAL KNEE TOTAL ARTHROPLASTY(Right) ARTHROPLASTY(Right) ARTHROPLASTY(Right) Comments 2nd scrub Last Modified By: Suki RN, NUNOOR, Brynn Cohn RN, NUNOORBrynn RN, Brynn MILIAN 02/21/24 12:25:07 Giovana 02/21/24 [...] Out Melvin LARSON, JAMES, Queen Annette Participants N., Loren ARELLANO, Suki Bone RN, CNOR, Brynn Akhtar, Presley GALLAGHER, Alvaro Yousif CST, Dee Adkins Time Out Complete 02/21/24 11:17:00 Outcomes Met? Yes Last Modified By: NUNO Cohn RNORBrynn 02/21/24 11:20:17 Post-Care Text: The patient is free from signs and symptoms of injury caused by extraneous objects Allergy Information FT Pre-Care Text: Verifies allergies Entry 1 Allergies Reviewed? Yes Allergies Reviewed Self/Patient With Outcomes Met? Yes Last Modified By: Suki TORREMAICOL Lou Ann 02/21/24 10:38:17 Post-Care Text: The [...] Met? Yes Last Modified (more content not included)...[facility] Main OR Preoperative Recordon [id number] OR Preoperative RecordMain OR Preoperative Record PreOp Document Type FT Summary Primary Physician: Chan Khan DO Finalized Date/Time: 02/22/24 08:37:35 Pt. Name: WILMER NAVARRO/Sex: 1985 Female Med Rec #: [id number] Physician: Chan Khan DO Financial #: [id number] Pt. Type: A Room/Bed: Admit/Disch: 02/21/24 08:02:21 - 02/21/24 17:00:00 Institution: [...] By: MAICOL Cohn RN, Lou Ann 02/22/24 08:37[facility] Operative Reporton [id number] ReportOperative Report SURGERY DATE: 02/21/2024 PREOPERATIVE DIAGNOSES: 1. [...] by morbid obesity, body mass index greater than40 ANESTHESIA: Spinal with sedation with block ESTIMATED BLOOD LOSS: Zero SPECIMEN: Bone IMPLANTS UTILIZED: The DePuy Attune knee system with a PS cemented right size 6 narrow femur, a size 5 cemented fixed tibial tray, 8 mm polyethylene, 32 mm patellar button TOURNIQUET TIME: See nurse's record. HISTORY AND INDICATIONS: Wilmer is a 38-year-old female with progressive right knee pain with rfxo-sb-xyhm disease. She has a strong family history as well as treatment for several decades. She has tried ice, Tylenol, analgesics, corticosteroid injections. She has ajhy-mx-menm. She initially presented with an elevated body [...] upper thigh. The leg was prepped and drapedin a sterile fashion. A time- out procedure occurred consistent with the consent form, History and Physical, preoperative marked site. Landmarks were identified. Once time-out was confirmed, a midlineincision was made of approximately 6 to 7 [...] collateral ligaments protected and balanced, meniscal remnants removed.Intramedullary drill and jig device was placed at the tibia, and tibia was cut. Gaps were symmetrical. Posterior gutters were clean and free. Tibia was prepared for a size 5 fixed. Trial components we re placed with full extension and flexion to approximately 108 degrees with adipose impingement. Patellofemoral tracking and height were appropriate with a 32 mm button. All trial components were removed. The capsule, gutters, and subcutaneous tissues were injected with Exparel per protocol. Irrisept was allowed to soak followed by copious irrigation. The [place] Simplex cement was mixed and all components cemented in place and allowed to harden for 16 minutes. All cement osteophytes removed. Knee was taken through an arc of motion and deemed stable. After copious irrigation 2 g of tranexamicacid was placed subfascially. The fascial layer was closed with #2 Quill suture in a running fashion, 0 Quill closed the adipose layer, 2-0 Quill suture closed the subcutaneous tissues, and shaunna were applied. A 10 Mepilex dressing with soft roll wrap was provided. Tourniquet was deflated. The patient was awakened from anesthesia and transferred to the Recovery Room in stable and satisfactory c ondition. CASE: Clean and elective COUNTS: Sponge and needle count correct SPECIMEN: Bone PATIENT CONDITION: Satisfactory Aquiles Vlilarreal Dictated: 02/21/2024 [id number] Transcribed: 02/21/2024 cc:Elvie Greer [facility] HospitalComment on above:Result Comment: Electronically Signed By: Chan Khan DO\.br\Date and Time Signed: 02/22/24 17:18 ESTABO/Rhon [id number]/RhPositiveInvalid Interpretation [facility] HospitalComment on above:Performed By: #### [id number] #### [facility] [address], [place] [address]ODC/Rh History Checkon 31-39-2915XHZ/Rh History CheckVerified Hx Blood TypeNoBellevue HospitalComment on above:Performed By: #### [id number] #### [facility] [address], [place] [address]TLXUcb 34-38-5749XYPA Gel InterpNegativeMartins Ferry HospitalComment on above:Performed By: #### [id number] #### [facility] [address], [place] [address]IPZXG BANKOrdered By: Anitra French on 65-25-1157PWN/Rh InterpPositiveInvalid Interpretation [facility] BB SubsectionABSC Gel Interp Negative (02/21/24 8:56 AM)NormalOKLAHOMA HEARTH [facility]OSP[facility] [place] BB SubsectionBlood Bank ID#on [id number]# [id number] Interpretation [facility] HospitalComment on above: Performed By: #### [id number] #### [facility] [address], [place] [address]Ompohaskx Instructionson [id number] Instructions Discharge Instructions WILMER NAVARRO :1985 Visit [...] make important decisions for 24 hours, Do notdrink alcoholic beverages for 24 hours Discharge Diet(s) [...] Up Appointments after Discharge Follow Up with HARRIS Villarreal When: 03/23/2024 03:00 PM EST Comments: Keep scheduled appointment Where: [address] [place] [address] [employer] (1) Medications What How Much When Why [...] Every day Duration: 30 Days Start the dayafter surgery Unchanged budesonide-formoterol (budesonide-formoterol 160 mcg-4.5 mcg/ [...] 1000 mg oral capsule) 1 Capsules By MouthEvery day Allergies Latex (Hives) diphenhydrAMINE (Unknown) predniSONE (Unknown) Devices Implanted/Removed This Visit Notice: You have devices implanted this visit that may not be MRI compatible. Implanted KNEE TOTAL ARTHROPLASTY Knee R patella dome 02/21/2024 tibial tray 02/21/2024 tibial tray insert 02/21/2024 femoral component 02/21/2024 cement (2), 02/21/2024 Education Materials How to Use an Incentive S (more content not included)...[facility] HospitalComment on above:Result Comment: Electronically Signed By: Ricki TORRE, Marium Mcmullen.burt\Date and Time Signed: 02/21/24 12:54 ESTInterdisciplinary Note - Nursingon [id number] Note - NursingInterdisciplinary Note - Nursing at 1245, pt heart rate down to 30's, sinus pt feeling lightheaded and dizzy. pt placed in Trendelenberg- called and atropine 0.4mg given. heart rate increased to 50's. fluids wide open.NormalFisher [facility] Orthopaedic InstituteMain OR PACU I Recordon [id number] OR PACU I RecordMain OR PACU I Record PACU Phase I Document Type FT Summary Primary Physician: Chan Khan DO Finalized Date/Time: 02/21/24 14:56:12 Pt. Name: GINETTEWILMER./Sex: 1985 Female Med Rec #: [id number] Physician: Chan Khan DO Financial #: [id number] Pt. Type: A Room/Bed: [place] [address] Admit/Disch: 02/21/24 08:02:21 - Institution: Case Times [...] individualized perioperative plan of care The patient's rightto privacy is maintained The patient's value system, [...] with or improved from baseline levels established preoperativelyThe patient's cardiovascular status is consistent with or improved from baseline levels established preoperatively The patient's cardiovascular status is consistent with or improved from baseline levels established preoperatively The patient demonstrates and/or reports adequate pain control throughout the perioperative period The patient received appropriate medication(s), safely administered during the perioperativeperiod Acuity Level PACU I FT Entry 1 Start Time 02/21/24 12:27:00 Stop Time 02/21/24 13:30:00 Acuity Level Acuity Level I Last Modified By: Shanti Bender RN 02/21/24 14:56:08 Finalized By: Shanti Bender RN Document Signatures Signed By: Shanti Bender RN 02/21/24 14:56[facility] HospitalMain OR PACU II Recordon [id number] OR PACU II RecordMain OR PACU II Record PACU Phase II Document Type FT Summary Primary Physician: Chan Khan DO Finalized Date/Time: 02/21/24 18:04:41 Pt. Name: WILMER NAVARRO/Sex: 1985 Female Med Rec #: [id number] Physician: Chan Khan DO Financial #: [id number] Pt. Type: A Room/Bed: [facility] Admit/Disch: 02/21/24 08:02:21 - Institution: Case [...] and monitors body temperature Evaluates postoperative respiratory statusEvaluates postoperative cardiac status Evaluates postoperative neurological status [...] individualized perioperative plan of care The patient's rightto privacy is maintained The patient's value system, [...] with or improved from baseline levels established preoperativelyThe patient's cardiovascular status is consistent with or improved from baseline levels established preoperatively The patient's neurological status is consistent with or improved from baseline levels established preoperatively The patient demonstrates and/or reports adequate pain control throughout the perioperative period The patient received appropriate medication(s), safely administered during the perioperativeperiod Finalized By: Naila Landaverde Document Signatures Signed By: Naila Landaverde 02/21/24 18:04 Naila Landaverde 02/21/24 18:04NoBellevue HospitalProceduralon [id number] Patient: WILMER NAVARRO Age: 38 years Sex: [...] Using maximal sterile barrier technique per current [facility] guidelines including hand hygeine, Guidance (Ultrasound used [...] the local was injected, No pain or parathesi a were elicited with injection of the anesthetic in the conscious patient, It was idetified that the correct anesthetic agent was administered to the correct site. Complications: The patient tolerated the procedure as expected, Procedure completed by Queen Melvin CRNA under Dr Gupta's supervision.[facility] General HospitalEROLOGYOrdered By: Anitra French on 78-63-5532SXI.beta subunit (U) [Moles/Vol]NegativeCone Health Alamance Regional Man SeroU BetaHcg Qualon 53-54-2862BWB.beta subunit (U) [Moles/Vol]NegativeMartins Ferry HospitalComment on above:Performed By: #### [id number] #### [facility] [address] [place], [place] [address]WW KNEE 1 OR 2 VIEWS RIGHTon 02-21-2024 Exam Date/Time: 02/21/2024 12:40 EST Reason for [...] Ka,r in mGy = na DAP = naFTMCRadiology, Radiologist, MD - 02/21/2024 Exam Date/Time: 02/21/2024 [...] in mGy = na DAP = na [facility] HealthcareRadiology Study observation (narrative)[facility]ibal Regional HospitalXR KNEE 1 OR 2 VIEWS RIGHTOrdered By: Radiologist Radiology on 19-48-7924MHWZ [employer] Work Phone: XR Knee 1 or 2 Views Righton 66-72-8861WF Knee 1 or 2 Views RightExam Date/Time: 02/21/2024 12:40 EST Reason for Exam: [...] KANG Technologist: ADALBERTO Technical Comments Radiation Dose: gee Anderson in mGy = na DAP = naNormalPiterer [facility] Orthopa[facility] InstituteInpatient Patient Summaryon 02-16-2024 Inpatient Patient SummaryInpatient Patient Summary [facility] [address], [place] [address] [facility] Clinical Discharge Instructions PERSON INFORMATION Name: WILMER NAVARRO PHYSICIANS Admitting Physician: Chan Khan DO Attending Physician: Chan Khan DO PCP: ELVIE GREER CNP Discharge Diagnosis: Localized osteoarthritis of right knee Comment: PATIENT EDUCATION INFORMATION Instructions: Loren - Total Knee Arthroplasty (CUSTOM) Medication Leaflets: Follow up: With: Address: When: Chan Khan [address] [place] [address] [facility] () Comments: Keep scheduled appointment Type Location Start [facility] Surgery [facility] 02/21/2024 11:15 AM 02/21/2024 [...] 24HR) 1 Sprays Nasal Inhalation every day. Comment:[facility] HospitalOut[facility] Surgery Discharge Instructionon 14-01-6690Pohoprjxeu Surgery Discharge InstructionOutpatient Surgery Discharge Instruction [place] [id number] Patient Discharge Instructions PERSON INFORMATION Name: WILMER [...] NEAREST EMERGENCY ROOM OR CALL 911 I, MANDIEMary WIMLER, have received the attached patient education materials/instructions and have verbalized understanding: May we do a follow up call? Yes No I was present when discharge instructions were given Patient Signature Date Clinican/Nurse Signature Date Follow up: With: Address: When: Chan Khan [address] [place], [place] [id number] Business (1) Comments: Keep scheduled appointment Type Location Start [facility] Surgery [facility] 02/21/2024 11:15 AM 02/21/2024 [...] to serve you. Thank you for choosing [facility] HERE ARE THE MEDICATION CHANGES THAT [...] Inhalation every day. PATIENT EDUCATION INFORMATION Instructions: [place], [place] [facility] DISCHARGE INSTRUCTIONS TOTAL KNEE ARTHROPLASTY INCISION CARE: Mepilex dressing can get wet with showers. Please remove 10 days after surgery per instruction sheet. If shaunna present, please coordinate removal 21 days after surgery with office staff. Please notify the office if any increase in redness, tenderness, drainage, fever, or wound separation is notedbeyond this point. MEDICATIONS: You may resume your [...] continue to use the pain medication every fourhours as needed. Any narcotic pain medication can cause side effects including stomach upset, constipation, or light-headedness. (more content not included)...NormalWyandot Memorial HospitalABO/Rh Retypeon 08-80-5318HLB/Rh Retype InterpPositiveInvalid Interpretation [facility] HospitalComment on above:Performed By: #### [id number] #### [facility] [address], [place] [address]GDHAJ BANKOrdered By: Anitra French on 99-55-7280AFR/Rh Retype InterpPositiveInvalid Interpretation [facility] BB SubsectionBMPon 14-82-0536Kaiab gap [Moles/Vol]13 mmol/LNormal6-16[facility] Comment on above:Performed By: #### [id number] #### [facility] [address], [place] [address]Afnnrct [Mass/Vol]9.5 mg/dLNormal8.9-11.1FCleveland Clinic Avon HospitalComment on above:Performed By: #### [id number] #### [facility] [address], [place] [address]Rbiomxtr [Moles/Vol]103 mmol/UUxyeqq996-389VducmfWyandot Memorial HospitalComment on above:Performed By: #### [id number] #### [facility] [address], [place] [address]QE3 [Moles/Vol]27 mmol/SOedgfa34-45MltqjaWyandot Memorial Hospital Comment on above:Performed By: #### [id number] #### [facility] [address], [place] [address]Sykdsuohsp [Mass/Vol]0.6 mg/dLNormal0.5-1.3FCleveland Clinic Avon HospitalComment on above:Performed By: #### [id number] #### [facility] [address], [place] [address]Jxlydkb [Mass/Vol]84 mg/eXOzykut85-809FsxwxmWyandot Memorial HospitalComment on above:Performed By: #### [id number] #### [facility] [address], [place] [address]Xkasqhytq [Moles/Vol]4.0 mmol/LNormal3.5-5.3FCleveland Clinic Avon HospitalComment on above:Performed By: #### [id number] #### [facility] [address], [place] [address]Mbwrpg [Moles/Vol]139 mmol/DWkclli980-634QfvlzjWyandot Memorial HospitalComment on above:Performed By: #### [id number] #### [facility] [address], [place] [address]Igyy nitrogen [Mass/Vol]12 mg/dLNormal5-21[facility] Memorial HospitalComment on above:Performed By: #### [id number] #### [facility] [address] [place] [address]Gibv nitrogen/Creatinine [Mass ratio]20 No KduobSyvccs08-58 [facility] HospitalComment on above:Performed By: #### [id number] #### [facility] [address] [place] [address]NPP w/ Auto Diffon 77-35-5404Vlbrdphwg/100 WBC (Bld)0.8 %Normal 0.0-2.0[facility] Memorial HospitalComment on above:Performed By: #### [id number] #### [facility] [address] [place] [address]Mqmwfqedj/Leukocytes Auto (Bld) [Pure # fraction]0.1 E9/LNormal 0.0-0.2FCleveland Clinic Avon HospitalComment on above:Performed By: #### [id number] #### [facility] [address] [place] [address]Bzlasfffddl (Bld) [#/Vol]0.3 E9/LNormal0.0-0.5FCleveland Clinic Avon HospitalComment on above:Performed By: #### [id number] #### [facility] [address] [place] [address]Csgimzhheuy/100 WBC (Bld)4.2 %Normal0.0-8.0[facility] Memorial HospitalComment on above:Performed By: #### [id number] #### [facility] [address] [place] [address]Edswtgikoqn distribution width (RBC) [Ratio]13.2 %Normal 10.9-14.2FCleveland Clinic Avon HospitalComment on above:Performed By: #### [id number] #### [facility] [address] [place] [address]Adntkeptnu (Bld) [Volume fraction]39.2 %Ekbotf88.0-46.0[facility] HospitalComment on above:Performed By: #### [id number] #### [facility] [address] [place] [address]Iapmgvehcb (Bld) [Mass/Vol]13.6 g/kBZtqcjx10.0-16.0[facility] HospitalComment on above:Performed By: #### [id number] #### [facility] [address] [place] [address]Demigctrexr (Bld) [#/Vol]2.3 E9/LNormal1.0-4.0[facility] HospitalComment on above:Performed By: #### [id number] #### [facility] [address] [place] [address]Vzcusrhwnyl/100 WBC (Bld)29.5 %Rzgmox25.0-50.0[facility] Memorial HospitalComment on above:Performed By: #### [id number] #### [facility] [address] [place] [address]OGV (RBC) [Entitic mass]30.4 qbKhihmz22.0-34.0[facility] HospitalComment on above:Performed By: #### [id number] #### [facility] [address] [place] [address]ZAJI (RBC) [Mass/Vol]34.7 g/jNDwxbjv06.4-36.0[facility] HospitalComment on above:Performed By: #### [id number] #### [facility] [address] [place] [address]BVX (RBC) [Entitic vol]87.5 sDChgjma60.0-100.0[facility] HospitalComment on above:Performed By: #### [id number] #### [facility] [address] [place] [address]Avlzemsdo (Bld) [#/Vol]0.7 E9/LNormal0.2-1.0[facility] HospitalComment on above:Performed By: #### [id number] #### [facility] [address] [place] [address]Rdqtitlnbju (Bld) [#/Vol]4.3 E9/LNormal2.0-7.5FCleveland Clinic Avon HospitalComment on above:Performed By: #### [id number] #### [facility] [address] [place] [address]Rcuxmvbhrri/100 WBC (Bld)56.6 %Oukmly72.0-75.0[facility] HospitalComment on above:Performed By: #### [id number] #### [facility] [address] [place] [address]Vlimjule584.0 E9/WPfrnfv383.0-500.0[facility] Comment on above:Performed By: #### [id number] #### [facility] [address] [place] [address]Kloplqmd mean volume (Bld) [Entitic vol]7.9 fLNormal6.4-10.8 [facility] HospitalComment on above:Performed By: #### [id number] #### [facility] [address] [place] [address]YCA (Bld) [#/Vol]4.5 E12/LNormal4.3-5.9[facility] HospitalComment on above:Performed By: #### [id number] #### [facility] [address] [place] [address]MVQ corrected for nucl RBC Auto (Bld) [#/Vol]7.7 E9/LNormal 4.0-11.0[facility] HospitalComment on above:Performed By: #### [id number] #### [facility] [address] [place] [address]LZDSZDOLWSwoiqqp By: SYSTEM SYSTEM on 06-95-5985Bmodc gap [Moles/Vol]13 mmol/LNormal6 - 16 mEq/LRemisol ChemCalcium [Mass/Vol]9.5 mg/dL Normal8.9 - 11.1 mg/dLRemisol ChemChloride [Moles/Vol]103 mmol/TUavgpb649 - 111 mmol/LRemisol ChemCO2 [Moles/Vol]27 mmol/RQmqnzg08 - 31 mmol/LRemisol Chem Creatinine [Mass/Vol]0.6 mg/dLNormal0.5 - 1.3 mg/dLRemisol RktlfPLE547 mL/min/1.73 e5Bgmfzk>=59mL/min/1.73 k2Geoiing ChemGlucose [Mass/Vol]84 mg/dL Sqyhwd44 - 199 mg/dLRemisol ChemPotassium [Moles/Vol]4.0 mmol/LNormal3.5 - 5.3 mmol/LRemisol ChemSodium [Moles/Vol]139 mmol/GNbvuxs755 - 145 mmol/LRemisol Chem Urea nitrogen [Mass/Vol]12 mg/dLNormal5 - 21 mg/dLRemisol ChemUrea nitrogen/Creatinine [Mass ratio]20 mg/tkOcokwa70 - 20Remisol ChemHEMATOLOGY Ordered By: SYSTEM SYSTEM on 28-59-4406Btjvrtrgh/100 WBC (Bld)0.8 %Normal0.0 - 2.0 %Remisol HemeBasophils/Leukocytes Auto (Bld) [Pure # fraction]0.1 E9/LNormal 0.0 - 0.2 E9/LRemisol HemeEosinophils (Bld) [#/Vol]0.3 E9/LNormal0.0 - 0.5 E9/L Remisol HemeEosinophils/100 WBC (Bld)4.2 %Normal0.0 - 8.0 %Remisol Heme Erythrocyte distribution width (RBC) [Ratio]13.2 %Dxkvoh32.9 - 14.2 %Remisol HemeHematocrit (Bld) [Volume fraction]39.2 %Dqnucl42.0 - 46.0 %Remisol Heme Hemoglobin (Bld) [Mass/Vol]13.6 g/tARbagek64.0 - 16.0 gm/dLRemisol Heme Lymphocytes (Bld) [#/Vol]2.3 E9/LNormal1.0 - 4.0 E9/LRemisol HemeLymphocytes/100 WBC (Bld)29.5 %Fxmelw90.0 - 50.0 %Remisol HemeMCH (RBC) [Entitic mass]30.4 pg Bmlnfq87.0 - 34.0 pgRemisol HemeMCHC (RBC) [Mass/Vol]34.7 g/bQUoahsa43.4 - 36.0 gm/dLRemisol HemeMCV (RBC) [Entitic vol]87.5 aBDqkiyd77.0 - 100.0 fLRemisol Heme Monocytes (Bld) [#/Vol]0.7 E9/LNormal0.2 - 1.0 E9/LRemisol HemeMonocytes/100 WBC (Bld)8.9 %Normal4.0 - 14.0 %Remisol HemeNeutrophils (Bld) [#/Vol]4.3 E9/LNormal 2.0 - 7.5 E9/LRemisol HemeNeutrophils/100 WBC (Bld)56.6 %Xcsnsz46.0 - 75.0 % Remisol LouyBfoztdqk166.0 E9/ENyystd057.0 - 500.0 E9/LRemisol HemePlatelet mean volume (Bld) [Entitic vol]7.9 fLNormal6.4 - 10.8 fLRemisol HemeRBC (Bld) [#/Vol] 4.5 E12/LNormal4.3 - 5.9 E12/LRemisol HemeWBC corrected for nucl RBC Auto (Bld) [#/Vol]7.7 E9/LNormal4.0 - 11.0 E9/LRemisol HemeUA WITH CULT RFLXon 01-25-2024 BILIRUBIN:PRTHR:PT:URINE:ORD:TEST STRIP.AUTOMATEDNegativeNegative mg/dLSamaritan Hospital CLARITY:TYPE:PT:URINE:NOM:ClearClearSamaritan Hospital CLASS:TYPE:PT:URINE COLLECTION METHOD:NOM:*Clean CatchSamaritan Hospital COLOR:TYPE:PT:URINE:NOM:AUTOLight-YellowYellowHannibal Regional HospitalComment on above: Microscopic readings are only performed on those samples that meet specific criteria set forth by [facility] [place] PH:LSCNC:PT:URINE:QN:TEST STRIP5.55.0 - 9.0NOSouthPointe Hospital SPECIFIC GRAVITY:RDEN:PT:URINE:QN:TEST STRIP1.0131.005 - 1.030NOSaint John's Health System GLUCOSE:PRTHR:PT:URINE:ORD:TEST STRIPNegativeNegative mg/dLNOIN Healthcare HEMOGLOBIN:MCNC:PT:URINE:SEMIQN:TEST STRIP.AUTOMATEDNegativeNegative mg/dLNOIN HealthcareKETONES:PRTHR:PT:URINE:ORD:TEST STRIP.AUTOMATEDNegativeNegative mg/dL NOMS HealthcareLEUKOCYTE ESTERASE:PRTHR:PT:URINE:ORD:TEST STRIP.AUTOMATED NegativeNegative CD:[id number] HealthcareNITRITE:PRTHR:PT:URINE:ORD:TEST STRIP.AUTOMATEDNegativeNegative mg/dLNOSaint John's Health System PROTEIN:PRTHR:PT:URINE:ORD:TEST STRIPNegativeNegative mg/dLHannibal Regional Hospital UROBILINOGEN:MCNC:PT:URINE:SEMIQN:TEST STRIPNegativeNegative mg/dLHannibal Regional HospitalOriginal Ordering Provider: DO Chan Esquivel with Cult [employer]fl[employer] 05-53-0737Nzjvktbxj Ql (U)NegativeNormalNegative [facility] HospitalComment on above:Performed By: #### [id number] #### [facility] [address], [place] [address]Soyhnjt (U)ClearNormalClearWyandot Memorial HospitalComment on above:Performed By: #### [id number] #### [facility] [address], [place] [address]Zjesm (U)Light-YellowNormalYellowWyandot Memorial Hospital Comment on above:Result Comment: Microscopic readings are only performed on those samples that meet specific criteria set forth by [facility].Performed By: #### [id number] #### [facility] [address], [place] [address]Muxkecv Ql (U)NegativeNormalNegativeWyandot [facility] Hospital Comment on above:Performed By: #### [id number] #### [facility] [address], [place] [address]Arsifeunmn Auto test strip (U) [Mass/Vol]NegativeNormalNegative [facility] HospitalComment on above:Performed By: #### [id number] #### [facility] [address] [place] [address]Dlenlfx Auto test strip Ql (U)NegativeNormalNegativeWyandot Memorial HospitalComment on above:Performed By: #### [id number] #### [facility] [address] [place] [address]Fwgfteiiv esterase Auto test strip Ql (U)NegativeNormalNegative [facility] HospitalComment on above:Performed By: #### [id number] #### [facility] [address] [place] [address]690Lskhacz Auto test strip Ql (U)NegativeNormalNegACMC Healthcare SystemComment on above:Performed By: #### [id number] #### [facility] [address] [place] [address] 18102bK (U)5.5 [pH]Invalid Interpretation Code5.0-9.0[facility] HospitalComment on above:Performed By: #### [id number] #### [facility] [address] [place] [address]Kfiunvy Ql (U)NegativeNormalNegACMC Healthcare System Comment on above:Performed By: #### [id number] #### [facility] [address] [place] [address]Fjxsqbku gravity (U) [Rel density]1.013Invalid Interpretation Code1.005-1.030[facility] HospitalComment on above:Performed By: #### [id number] #### [facility] [address] [place] [address]Nolsfvvwhygr (U) [Mass/Vol]NegativeNormalNegACMC Healthcare SystemComment on above:Performed By: #### [id number] #### [facility] [address] [place] [address]Appz of Urine collection methodClean CatchNormalFisher [facility] Orthopaedic InstituteComment on above:Performed By: #### [id number] #### [facility] [address] [place], [place] [address]GYCUIBCIKWTvhgyva By: SYSTEM SYSTEM on 98-31-6975Icjppnxci Ql (U)NegativeNormalNegativemg/dLFT UA Auto SSClarity (U)Clear (01/25/24 8:54 AM)NormalClearFTM UA Auto SSColor (U)Light-Yellow 1 (01/25/24 8:54 AM)NormalYellowOKLAHOMA HEARTH [facility] [place] UA Auto SSComment on above:Interpretive Data: Microscopic readings are only performed on those samples that meet specific criteria set forth by [facility].Glucose Ql (U) NegativeNormalNegativemg/dLFT UA Auto SSHemoglobin Auto test strip (U) [Mass/Vol]NegativeNormalNegativemg/dLOKLAHOMA HEARTH HOSPITAL S[facility] [place] UA Auto SSKetones Auto test strip Ql (U)NegativeNormalNegativemg/dLFT UA Auto SSLeukocyte esterase Auto test strip Ql (U)NegativeNormalNegativeLeu/uLFT UA Auto SSNitrite Auto test strip Ql (U) NegativeNormalNegativemg/dLFT UA Auto SSpH (U)5.5 *NA* (01/25/24 8:54 AM)Invalid Interpretation Code5.0 - 9.0[facility] [place] UA Auto SSProtein Ql (U)NegativeNormalNegativemg/dLFT UA Auto SSSpecific gravity (U) [Rel density] 1.013 *NA* (01/25/24 8:54 AM)Invalid Interpretation Code1.005 - 1.030FT UA Auto SS Urobilinogen (U) [Mass/Vol]NegativeNormalNegativemg/dLOKLAHOMA HEARTH HOSPITAL [facility] [place] UA Auto SSURINALYSIS Ordered By: Manasa Bonds on 80-81-8128SF Spec DescClean Catch (01/25/24 8:54 AM)NormalOKLAHOMA HEARTH [facility] [place] UA Auto SSXR Chest 2 Viewson 90-81-2569FA Chest 2 ViewsExam Date/Time: 01/25/2024 09:09 EST Reason for Exam: [...] Ka,r in mGy = n/a DAP = n/aNormalWyandot Memorial HospitaleGFRon 07-78-6921kUPM330 mL/min/1.73 w1Ttrbmx>=59W[facility] Memorial HospitalComment on above:Performed By: #### [id number] #### [facility] [address] [place], [place] [address]ALL THYROID STIM HORMONEon 87-23-7689NUR Qn3.486 m[IU]/LNCEDAR RIDGE [facility] [place] HealthcareALL THYROXINE (T4) FREEon 43-25-4733Tuqb T4 [Mass/Vol]0.81 ng/dL0.76 - 1.46 ng/dLNOIN HealthcareNo Panel Informationon 36-31-0509MMCGBOEUDUZCB HealthcareAlanine aminotransferase [Enzymatic activity/volume] in Serum or PlasmaOrdered By: Ghassan Ramos on 66-63-0128OMY [Catalytic activity/Vol]11 U/L Normal7-52[address] HospitalComment on above:Performed By: #### CRP, ESR, CBC, CMP #### [facility] [address] [place] [address] USAAlbumin [Mass/volume] in Serum or Plasma by Bromocresol green (BCG) dye binding methoOrdered By: Ghassan Ramos on 32-56-4077Rzoaieg BCG dye [Mass/Vol]4.3 g/dL3.5-5.7FMercy Health West HospitalAlkaline phosphatase [Enzymatic activity/volume] in Serum or PlasmaOrdered By: Ghassan Ramos on 18-27-6561AWO [Catalytic activity/Vol]69 U/BIkwswh25-329GqptneruyWilson Street HospitalComment on above:Performed By: #### CRP, ESR, CBC, CMP #### [facility] [address] [place] [address] USAAspartate aminotransferase [Enzymatic activity/volume] in Serum or PlasmaOrdered By: Ghassan Ramos on 03-89-6327SWT [Catalytic activity/Vol]13 U/XUclvpw20-15HoakjpnsdWilson [address] HospitalComment on above: Performed By: #### CRP, ESR, CBC, CMP #### [facility] [address] [place] [address] USAAutomated basophil %Ordered By: Ghassan Ramos on 18-99-7349Ywudbmfrs/100 WBC (Bld)0.4 %Normal.[facility] Comment on above:Performed By: #### CRP, ESR, CBC, CMP #### [place] [address] USAAutomated basophil countOrdered By: Ghassan Ramos on 22-89-5230Xoklikfps (Bld) [#/Vol]0.0 10*3/uLNormal0.0-0.2FMercy Health West HospitalComment on above:Performed By: #### CRP, ESR, CBC, CMP #### [place] [address] USAAutomated blood monocyte countOrdered By: Ghassan Ramos on 08-40-4307Yzfotqwcx (Bld) [#/Vol]0.6 10*3/uLNormal0.0-0.8[address] HospitalComment on above:Performed By: #### CRP, ESR, CBC, CMP #### [facility] [address] [place] [address] USAAutomated eosinophil %Ordered By: Ghassan Ramos on 46-87-3097Jwemvvwkkzm/100 WBC (Bld)2.1 %Normal.[facility] Comment on above:Performed By: #### CRP, ESR, CBC, CMP #### [place] [address] USAAutomated eosinophil countOrdered By: Ghassan Ramos on 19-74-2922Qtmubttsgrv (Bld) [#/Vol]0.1 10*3/uLNormal0.0-0.45[address] HospitalComment on above:Performed By: #### CRP, ESR, CBC, CMP #### [facility] [address] [place] [address] USAAutomated monocyte %Ordered By: Ghassan Ramos on 51-75-8661Sznjeqrfz/100 WBC (Bld)8.7 %Normal.[facility] Comment on above:Performed By: #### CRP, ESR, CBC, CMP #### [place] [address] USAAutomated neutrophil %Ordered By: Ghassan Ramos on 10-77-8398Ktpvdbiylws/100 WBC (Bld)62.7 %Normal.[address] HospitalComment on above:Performed By: #### CRP, ESR, CBC, CMP #### [place] [address] USABilirubin.total [Mass/volume] in Serum or PlasmaOrdered By: Ghassan Ramos on 34-09-1647Xufucfclx [Mass/Vol]0.8 mg/dLNormal0.3-1.[address] HospitalComment on above:Performed By: #### CRP, ESR, CBC, CMP #### [place] [address] USAC reactive protein [Mass/volume] in Serum or PlasmaOrdered By: Ghassan Ramos on 76-82-8492MYB [Mass/Vol]1.5 mg/dLHigh0.0-0.5FMercy Health West HospitalC-Reactive Proteinon 12-43-8641U-Reactive Protein1.5 mg/dLHigh0.0-0.5The [facility] Physician GroupComment on above:Result Comment: PERFORMED BY: [place] [address] PATHOLOGIST NURSE PRACTITIONER HOME ASSESSMENTS CARTER MARSHALL M.D.Performed By: #### CRP, ESR, CBC, CMP #### [address] [place] [address] USACalcium [Mass/volume] in Serum or PlasmaOrdered By: Ghassan Ramos on 26-22-3649Xpehkub [Mass/Vol]9.6 mg/dLNormal8.6-10.3FMercy Health West HospitalComment on above:Performed By: #### CRP, ESR, CBC, CMP #### [place] [address] USACarbon dioxide, total [Moles/volume] in Serum or Plasma Ordered By: Ghassan Ramos on 98-85-8104WG7 [Moles/Vol]27.9 mmol/LNormal 21.0-31.0[address] HospitalComment on above:Performed By: #### CRP, ESR, CBC, CMP #### [place] [address] USAChloride [Moles/volume] in Serum or PlasmaOrdered By: Ghassan Ramos on 02-01-4759Ssxydfkf [Moles/Vol]104 mmol/UJagwsg65-264ZciyebxabWilson Street HospitalComment on above:Performed By: #### CRP, ESR, CBC, CMP #### [place] [address] USAComplete Blood Count Auto Diffon 96-81-0463Woam Corpuscular HGB Conc34.6 g/cIQwhyuf86.0-35.0The [facility] Physician GroupComment on above:Performed By: #### CRP, ESR, CBC, CMP #### [place] [address] USANRBC%0.2 /100{WBC}Normal0-0.5The [facility] Comment on above:Performed By: #### CRP, ESR, CBC, CMP #### [place] [address] USAComprehensive Metabolic Panelon 30-97-1848Cqtupej [Mass/Vol]4.3 g/dLNormal3.5-5.7The [facility] Physician GroupComment on above: Performed By: #### CRP, ESR, CBC, CMP #### [place] [address] USAGFR/1.73 sq M.predicted MDRD (S/P/Bld) [Vol rate/Area] mL/min/{1.73_m2}NormalThe [facility] Physician GroupComment on above:Performed By: #### CRP, ESR, CBC, CMP #### [place] [address] USACreatinine [Mass/volume] in Serum or PlasmaOrdered By: Ghassan Ramos on 83-80-0572Cnyqflgjsk [Mass/Vol]0.57 mg/dLLow0.60-1.20[address] HospitalComment on above:Performed By: #### CRP, ESR, CBC, CMP #### [place] [address] USAErythrocyte Sedimentation Rateon 11-49-0207XZD (Bld) [Velocity]27 mm/hHigh0-19The [facility] Physician GroupComment on above:Result Comment: PERFORMED BY: [place] [address] PATHOLOGIST NURSE [employer]ITIONER HOME ASSESSMENTS CARTER MARSHALL M.D.Performed By: #### CRP, ESR, CBC, CMP #### [place] [address] USAErythrocyte distribution width [Ratio] by Automated count Ordered By: Ghassan Ramos on 40-75-1050Rnmacngnres distribution width (RBC) [Ratio]13.2 %Wtmsry14.9-15.3FMercy Health West HospitalComment on above: Performed By: #### CRP, ESR, CBC, CMP #### [place] [address] USAErythrocyte sedimentation rate by Photometric method Ordered By: Ghassan Ramso on 31-62-4518VJQ Photometric method (Bld) [Velocity] 27 mm/hrHigh0-19[address] HospitalErythrocytes [#/volume] in Blood by Automated countOrdered By: Ghassan Ramos on 91-84-8847CSK (Bld) [#/Vol]4.48 10*6/uLNormal3.60-5.00[address] HospitalComment on above:Performed By: #### CRP, ESR, CBC, CMP #### [facility] [address] [place] [id number] USAGlucose [Mass/volume] in Serum or PlasmaOrdered By: Ghassan Ramos on 52-63-6243Fktbmpn [Mass/Vol]90 mg/oSPnqvzz69-807YeqgvqijtWilson Street HospitalComment on above:ADA recommended reference rangeRandom Glucose Reference Range is dependent on time and content of last meal. Glucose of more than 200 mg/dL in a nonstressed, ambulatory subject supports the diagnosisof Diabetes Mellitus.Result Comment: Random Glucose Reference Range is dependent on time and content of last meal. Glucose of more than 200 mg/dL in a nonstressed, ambulatory subject supports the diagnosis of Diabetes Mellitus. ADA recommended reference rangePerformed By: #### CRP, ESR, CBC, CMP #### [facility] [address] [place] [id number] USAHematocrit [Volume Fraction] of Blood by Automated count Ordered By: Ghassan Ramos on 48-03-5277Lzsxxvfnny (Bld) [Volume fraction]38.9 % Ccaskv93.0-46.4FMercy Health West HospitalComment on above:Performed By: #### CRP, ESR, CBC, CMP #### [facility] [address] [place] [address] USAHemoglobin [Mass/volume] in BloodOrdered By: Ghassan Ramos on 36-36-7924Gbmwhugine (Bld) [Mass/Vol]13.5 g/fGYznwwb40.8-15.[address] HospitalComment on above:Performed By: #### CRP, ESR, CBC, CMP #### [facility] [address] [place] [id number] USALeukocytes [#/volume] corrected for nucleated erythrocytes in Blood by Automated counOrdered By: Ghassan Ramos on 60-32-0539PVF corrected for nucl RBC Auto (Bld) [#/Vol]7.2 10*3/uL3.8-11.6FMercy Health West HospitalLeukocytes [#/volume] in Blood by Automated countOrdered By: Ghassan Ramos on 45-02-1713MRQ (Bld) [#/Vol]7.2 10*3/uLNormal3.8-11.6FMercy Health West HospitalComment on above:Performed By: #### CRP, ESR, CBC, CMP #### [facility] [address] [place] [address] USALymphocytes [#/volume] in Blood by Automated countOrdered By: Ghassan Ramos on 53-11-3433Wxfzkpejrhv (Bld) [#/Vol]1.9 10*3/uLNormal 1.00-4.8[address] HospitalComment on above:Performed By: #### CRP, ESR, CBC, CMP #### [place] [address] USALymphocytes/100 leukocytes in Blood by Automated count Ordered By: Ghassan Ramos on 25-62-1430Bikndcjctxo/100 WBC (Bld)26.1 %Normal. [facility] [address] HospitalComment on above:Performed By: #### CRP, ESR, CBC, CMP #### [address] [Entitic mass] by Automated countOrdered By: Ghassan Ramos on 03-11-3970UKK (RBC) [Entitic mass]30.1 ldJxfpth37.7-34.3FMercy Health West HospitalComment on above:Performed By: #### CRP, ESR, CBC, CMP #### [address] Auto (RBC) [Mass/Vol]Ordered By: Ghassan Ramos on 92-55-7725UHSH (RBC) [Mass/Vol]34.6 g/dL32.0-35.0[address] HospitalMCV [Entitic volume] by Automated countOrdered By: Ghassan Ramos on 07-26-1474KHQ (RBC) [Entitic vol]86.9 eOLyzkca23-523UwauldqxlWilson [address] HospitalComment on above:Performed By: #### CRP, ESR, CBC, CMP #### [facility] [address] [place] [address] USANeutrophils [#/volume] in Blood by Automated countOrdered By: Ghassan Ramos on 66-33-1127Lapfwrgijqq (Bld) [#/Vol]4.5 10*3/uLNormal 1.8-7.7FMercy Health West HospitalComment on above:Performed By: #### CRP, ESR, CBC, CMP #### [facility] [address] [place] [address] USANo Panel InformationOrdered By: Ghassan Ramos on 02-59-3505Kvcrdtlds GFR (CKD-EPI)> 60.0 mL/MinWilson Street Hospital [facility] Creatinine Clearance (ChemN/[facility] HospitalNucleated erythrocytes [Presence] in Blood by Automated countOrdered By: Ghassan Ramos on 73-79-8105Febdnyhcq RBC Auto Ql (Bld)0.2 /100{WBC}0-0.5FMercy Health West HospitalPlatelet mean volume [Entitic volume] in Blood by Automated count Ordered By: Ghassan Ramos on 65-95-1159Gxevjnfc mean volume (Bld) [Entitic vol] 8.5 fLNormal6.3-10.7FMercy Health West HospitalComment on above:Performed By: #### CRP, ESR, CBC, CMP #### [facility] [address] [place] [address] USAPlatelets [#/volume] in Blood by Automated countOrdered By: Ghassan Ramos on 75-52-0773Debavrcgh (Bld) [#/Vol]349 10*3/fLDvehet708-[address] HospitalComment on above:Performed By: #### CRP, ESR, CBC, CMP #### [facility] [address] [place] [address] USAPotassium [Moles/volume] in Serum or PlasmaOrdered By: Ghassan Ramos on 93-38-8842Xqgcleyxp [Moles/Vol]4.4 mmol/LNormal3.5-5.[address] HospitalComment on above:Performed By: #### CRP, ESR, CBC, CMP #### [facility] [address] [place] [address] USAProtein [Mass/volume] in Serum or PlasmaOrdered By: Ghassan Ramos on 88-05-9793Kpmggrv [Mass/Vol]6.8 g/dLNormal6.4-8.9[address] HospitalComment on above:Performed By: #### CRP, ESR, CBC, CMP #### [place] [address] USASerum globulin measurement by calculation (mass/volume) Ordered By: Ghassan Ramos on 32-77-5833Lqrfcsna (S) [Mass/Vol]2.5 g/dLNormal [address] HospitalComment on above:Performed By: #### CRP, ESR, CBC, CMP #### [place] [address] USASerum or plasma albumin/globulin mass ratioOrdered By: Ghassan Ramos on 71-46-9190Ugmxput/Globulin [Mass ratio]1.7 {ratio}Normal [facility] HospitalComment on above:Performed By: #### CRP, ESR, CBC, CMP #### [place] [address] USASerum or plasma anion gap determinationOrdered By: Ghassan Ramos on 81-18-9079Haapk gap [Moles/Vol]10.5 mmol/LNormal6.0-15.0[address] HospitalComment on above:Performed By: #### CRP, ESR, CBC, CMP #### [facility] [address] [place] [address] USASodium [Moles/volume] in Serum or PlasmaOrdered By: Ghassan Ramos on 58-70-4393Iityzq [Moles/Vol]138 mmol/UQzapdk050-164XoonxjtiuWilson [address] HospitalComment on above:Performed By: #### CRP, ESR, CBC, CMP #### [place] [address] USAUrea nitrogen [Mass/volume] in Serum or PlasmaOrdered By: Ghassan Ramos on 00-95-9081Teii nitrogen [Mass/Vol]16 mg/dLNormal7-[address] HospitalComment on above:Performed By: #### CRP, ESR, CBC, CMP #### [facility] [address] [place] [id number] USAALL THYROID STIM HORMONEon 20-04-9388Lrhrswvgzlpzed and review of laboratory resultsAbnormSt. Clair HospitalTS Qn3.894 m[IU]/[facility] HospitalCLINISYNCNOMS HealthcareUS Thyroid glandon 56-30-7539Fzh[address] [address] Ultrasound Report Signed Patient: WILMER NAVARRO MR#: [id number] : 1985 Acct:[id number] Age/Sex: 37 / F ADM Date: 07/01/23 Loc: US Attending Dr: Elvie Greer NP Ordering Physician: Elvie Greer NP Date of Service: 07/01/23 Procedure(s): US thyroid Accession Number(s): [id number] cc: Elvie Greer NP [place] [id number] Patient Name: WILMER NAVARRO MRN: [id number] date: 1985 Sex: F Assigned Patient Location: US Current Patient Location: Accession/Order Number: [id number] Exam Date: 07/01/2023 11:42 Report Date: 07/02/2023 [...] No significantly increased vascularity. Electronically authenticated by: LEDA HUNTER Date: 07/02/2023 06:22 Dictated By: Leda Hunter M.D. Signed By: 07/02/23623 DD/ 1 TD/TT: Computing Systems Mechanic:SOLEDADHRadiology, Radiologist, - 07/02/2023 [place] [address] Ultrasound Report Signed Patient: WILMER NAVARRO MR#: [id number] : 1985 Acct:[id number] Age/Sex: 37 / F ADM Date: 07/01/23 Loc: US Attending Dr: Elvie Greer NP Ordering Physician: Elvie Greer NP Date of Service: 07/01/23 Procedure(s): US thyroid Accession Number(s): [id number] cc: Elvie Greer NP [place] [id number] Patient Name: WILMER NAVARRO MRN: [id number] date: 1985 Sex: F Assigned Patient Location: [place] Current Patient Location: Accession/Order Number: [id number] Exam Date: 07/01/2023 11:42 Report Date: 07/02/2023 [...] No significantly increased vascularity. Electronically authenticated by: LEDA HUNTER Date: 07/02/2023 06:22 Dictated By: Leda Hunter M.D. Signed By: 07/02/23623 DD/ 1 TD/TT: Computing Systems Mechanic: FRANCISCA HealthcareRadiology Study observation (narrative)FRANCISCA CrawfordUS Thyroid glandOrdered By: Radiologist Radiology on 96-12-7917WKKH [employer] Work Phone: cOVID + FLU Quick Testingon 50-40-1845PISD-CoV-2 (COVID-19) RNA LIANNE+probe Ql (Unsp spec)[employer] Other COVID + FLU Quick TestingNegativeNoSimulation Sciences Other CBC AUTO DIFFon 69-08-9228HDYN #0.0 103/ulNormal 0.0-0.1The [facility] HospitalComment on above:Performed By: #### CBC #### [facility] [address] [place] [address] Dr. Tracey MccoyBasophils/100 WBC (Bld)0.3 %Normal0.2-2.0[facility] Comment on above:Performed By: #### CBC #### [facility] [address] [place] [address] Dr. Tracey Beverly #0.2 103/ulNormal0.0-0.7The [facility] HospitalComment on above: Performed By: #### CBC #### [facility] [address] [place] [address] Dr. Tracey Medranoosinophils/100 WBC (Bld)1.7 %Normal0.9-7.0[facility] Comment on above:Performed By: #### CBC #### [facility] [address] [place] [address] Dr. Tracey Medranorythrocyte distribution width (RBC) [Ratio]12.4 %Taehxl68.0-15.0 The [facility] HospitalComment on above:Performed By: #### CBC #### [facility] [address] [place] [address] Dr. Tracey MccoyHematocrit (Bld) [Volume fraction]36.2 %Nfepje65.0-48.0The [facility] HospitalComment on above:Performed By: #### CBC #### [facility] [address] [place] [address] Dr. Tracey MccoyHemoglobin (Bld) [Mass/Vol]12.2 g/cQEqursp09.0-16.0The [facility] HospitalComment on above:Performed By: #### CBC #### [facility] [address] [place] [address] Dr. Tracey Lackey #0.05 10e3/ulCritically high0.00-0.03[facility] Comment on above:Performed By: #### CBC #### [facility] [address] [place] [address] Dr. Tracey Lackey %0.5 %Normal0.0-0.5The [facility] HospitalComment on above: Performed By: #### CBC #### [facility] [address] [place] [address] Dr. Tracey Fisher #2.3 103/ulNormal1.2-3.8The [facility] HospitalComment on above:Performed By: #### CBC #### [facility] [address] [place] [address] Dr. Tracey Swannhocytes/100 WBC (Bld)25.6 %Duyryn90.5-60.0The [facility] HospitalComment on above:Performed By: #### CBC #### [facility] [address] [place] [address] Dr. Tracey FariasUAL DIFF REQNONormalThe Berger HospitalComment on above: Performed By: #### CBC #### [facility] [address] [place] [address] Dr. Tracey Lawton (RBC) [Entitic mass]29.0 hhPhjfoq49.7-34.0The [facility] HospitalComment on above:Performed By: #### CBC #### [facility] [address] [place] [address] Dr. Tracey Anderson (RBC) [Mass/Vol]33.7 g/zHTducaj12.9-35.2The [facility] HospitalComment on above:Performed By: #### CBC #### [facility] [address] [place] [address] Dr. Tracey AndersonV (RBC) [Entitic vol]86.0 fKChcuag70.0-99.0The [facility] HospitalComment on above:Performed By: #### CBC #### [facility] [address] [place] [address] Dr. Tracey Vasquez #0.7 103/ulNormal0.3-0.8The [facility] HospitalComment on above:Performed By: #### CBC #### [facility] [address] [place] [address] Dr. Tracey Mirelesocytes/100 WBC (Bld)7.7 %Normal1.7-12.0[facility] Comment on above:Performed By: #### CBC #### [facility] [address] [place] [address] Dr. Tracey Reyes #5.9 103/ulNormal1.4-6.5The [facility] HospitalComment on above:Performed By: #### CBC #### [facility] [address] [place] [address] Dr. Tracey Gilutrophils/100 WBC (Bld)64.2 %Yklror77.0-75.0The [facility] HospitalComment on above:Performed By: #### CBC #### [facility] [address] [place] [address] Dr. Tracey Balderramalet mean volume (Bld) [Entitic vol]9.5 fLNormal9.5-13.5The [facility] HospitalComment on above:Performed By: #### CBC #### [facility] [address] [place] [address] Dr. Tracey MenaT348 103/wpUaganh430-992Bmd [facility] HospitalComment on above: Performed By: #### CBC #### [facility] [address] [place] [address] Dr. Tracey MccoyRBC4.21 106/ulNormal4.20-5.40The [facility] HospitalComment on above:Performed By: #### CBC #### [facility] [address] [place] [address] Dr. Tracey MccoyWBC9.2 103/ulNormal4.0-11.0The [facility] HospitalComment on above: Performed By: #### CBC #### [facility] [address] [place] [address] Dr. Tracey MccoyFERRITINon 09-48-8476Pyddhapv [Mass/Vol]15.0 ng/mLNormal6.2-137.0 The [facility] HospitalComment on above:Performed By: #### FERR #### [facility] [address] [place] [address] Dr. Tracey MccoyMAGNESIUMon 46-36-0037Qylhgxsok [Mass/Vol]1.7 mg/dLCritically low 1.8-2.4The [facility] HospitalComment on above:Performed By: #### MG, CMP #### [facility] [address] [place] [address] Dr. Tracey MccoyPROF 14(COMP METB)on 53-63-8630Ffaocmi [Mass/Vol]3.7 g/dLNormal 3.4-5.0The [facility] HospitalComment on above:Performed By: #### MG, CMP #### [facility] [address] [place] [address] Dr. Tracey MccoyAlbumin/Globulin [Mass ratio]1.0 {ratio}NormalThe Berger HospitalComment on above:Performed By: #### MG, CMP #### [facility] [address] [place] [address] Dr. Tracey Gabriel [Catalytic activity/Vol]89 U/AWqtkhe55-841Edu [facility] Hospitalment on above:Performed By: #### MG, CMP #### [facility] [address] [place] [address] Dr. Tracey Beach [Catalytic activity/Vol]26 U/KVyoscg26-21Fpk [facility] HospitalComment on above:Performed By: #### MG, CMP #### [facility] [address] [address] [address] Tracey Palmaon gap [Moles/Vol]13.2 mmol/LNormalSamaritan North Health Center Comment on above:Performed By: #### MG, CMP #### [facility] [address] [address] [address] Tracey MccoyAST [Catalytic activity/Vol]19 U/QItqyba02-32Sxb [facility] HospitalComment on above:Performed By: #### MG, CMP #### [facility] [address] [place] [address] Dr. Tracey MccoyBilirubin [Mass/Vol]0.6 mg/dLNormal0.2-1.0[facility] Comment on above:Performed By: #### MG, CMP #### [facility] [address] [place] [address] Dr. Tracey MccoyCalcium [Mass/Vol]9.2 mg/dLNormal8.5-10.1[facility] Comment on above:Performed By: #### MG, CMP #### [facility] [address] [place] [address] Dr. Tracey MccoyChloride [Moles/Vol]101 mmol/JUptegf50-353AylSamaritan North Health Center Comment on above:Performed By: #### MG, CMP #### [facility] [address] [address] [address] Tracey MccoyCO2 [Moles/Vol]26.9 mmol/RVqwkky37.0-32.0[facility] Comment on above:Performed By: #### MG, CMP #### [facility] [address] [place] [address] Dr. Tracey MccoyCreatinine [Mass/Vol]0.47 mg/dLCritically low0.55-1.02The [facility] HospitalComment on above:Performed By: #### MG, CMP #### [facility] [address] [place] [address] Dr. Webb ChangEGFR-AF TURKS AND CAICOS ISLANDER>60Normal>=60The [facility] HospitalComment on above:Performed By: #### MG, CMP #### [facility] [address] [address] [address] Tracey Pradhan-NON AF TURKS AND CAICOS ISLANDER>60Normal>=60The [facility] HospitalComment on above:Performed By: #### MG, CMP #### [facility] [address] [address] [address] Tracey MccoyGlobulin (S) [Mass/Vol]3.6 g/dLNormalThe [facility] HospitalComment on above:Performed By: #### MG, CMP #### [facility] [address] [place] [address] Dr. Tracey MccoyGlucose [Mass/Vol]88 mg/fTEnljww66-648OkmSamaritan North Health Center Comment on above:Performed By: #### MG, CMP #### [facility] [address] [place] [address] Dr. Tracey MccoyPotassium [Moles/Vol]4.1 mmol/LNormal3.5-5.1[facility] Comment on above:Performed By: #### MG, CMP #### [facility] [address] [place] [address] Dr. Tracey MccoyProtein [Mass/Vol]7.3 g/dLNormal6.4-8.2[facility] Comment on above:Performed By: #### MG, CMP #### [facility] [address] [place] [address] Dr. Tracey MccoySodium [Moles/Vol]137 mmol/GMchwjj574-639HniSamaritan North Health Center Comment on above:Performed By: #### MG, CMP #### [facility] [address] [place] [address] Dr. Tracey MccoyUrea nitrogen [Mass/Vol]5.0 mg/dLCritically low7.0-18.0The [facility] HospitalComment on above:Performed By: #### MG, CMP #### [facility] [address] [place] [address] Dr. Tracey Alcaraz nitrogen/Creatinine [Mass ratio]10.6 mg/mgNoThe Bellevue HospitalComment on above:Performed By: #### MG, CMP #### [facility] [address] [place] [address] Dr. Tracey Ang ACOG PANEL 2: 30 to 65on 05-14-2022..NormalSamaritan North Health CenterComhenry ford [facility] on above:Result Comment: Performed at: WBPerformed By: #### [id number] #### [facility] [address] [place] [address] Dr. Tracey Camargo Gdln ACOG Otcuocp30-57FdzydtSbtThe Bellevue HospitalComment on above:Performed By: #### [id number] #### [facility] [address] [place] [address] Dr. Tracey MccoyDIAGNOSIS:CommentRegency Hospital [facility] on above: Result Comment: NEGATIVE FOR INTRAEPITHELIAL LESION OR MALIGNANCY. Performed at: WBPerformed By: #### [id number] #### [facility] [address] [place] [address] Dr. Tracey Jefferson AptimaNegativeNormalNegativeSamaritan North Health CenterComhenry ford cottage hospital on above:Result Comment: This nucleic acid amplification test detects fourteen high-risk HPV types (16,18,31,33,35,39,45,51,52,56,58,59,66,68) without differentiation. Performed at: =GPerformed By: #### [id number] #### [facility] [address] [place] [address] Dr. Tracey Jefferson Genotype ReflexCommentNoThe Bellevue HospitalComhenry for[facility] on above:Result Comment: Criteria not met, HPV Genotype not performed. Performed at: WBPerformed By: #### [id number] #### [facility] [address] [place] [address] Dr. Tracey MccoyMethodology:CommentRegency Hospital Cleveland East on above: Result Comment: This liquid based ThinPrep(R) pap test was screened with the use of an image guided system. Performed at: WBPerformed By: #### [id number] #### [facility] [address] [place] [address] Dr. Tracey MccoyNote:CommentRegency Hospital Cleveland East on above:Result Comment: The Pap smear is a screening test designed to aid in the detection of premalignant and malignant conditions of the uterine cervix. It is not a diagnostic procedure and should not be used as the sole means of detecting cervical cancer. Both false-positive and false-negative reports do occur. . Performed at: WBPerformed By: #### [id number] #### [facility] [address] [place] [address] Dr. Tracey MccoyPerformed by:CommentRegency Hospital Cleveland East on above: Result Comment: Daysi Cheema, Editor Index Performed at: WBPerformed By: #### [id number] #### [address] [address] Dr[address] Tracey Art adequacy:CommentRegency Hospital Cleveland East on above:Result Comment: Satisfactory for evaluation. Endocervical and/or squamous metaplastic cells (endocervical component) are present. Performed at: WBPerformed By: #### [id number] #### [facility] [address] [place] [address] Dr. Tracey Zabala 35-91-8514Ehfaqdmnjnt peptide B (Bld) [Mass/Vol]37.0 pg/mL Normal<=450.0The [facility] HospitalComment on above:Performed By: #### BNP #### [facility] [address] [place] [address] Dr. Tracey Mcnamara AUTO DIFFon [id number] #0.0 103/ulNormal0.0-0.1The [facility] HospitalComment on above:Performed By: #### CBC #### [address] [address] Dr[address] Tracey MccoyBasophils/100 WBC (Bld)0.3 %Normal0.2-2.0[facility] Comment on above:Performed By: #### CBC #### [facility] [address] [place] [address] Dr. Tracey Beverly #0.0 103/ulNormal0.0-0.7The [facility] HospitalComment on above: Performed By: #### CBC #### [facility] [address] [place] [address] Dr. Tracey Medranoosinophils/100 WBC (Bld)0.3 %Critically low0.9-7.0The [facility] HospitalComment on above:Performed By: #### CBC #### [facility] [address] [place] [address] Dr. Tracey Medranorythrocyte distribution width (RBC) [Ratio]12.9 %Ywrien44.0-15.0 The [facility] HospitalComment on above:Performed By: #### CBC #### [facility] [address] [place] [address] Dr. Tracey MccoyHematocrit (Bld) [Volume fraction]37.5 %Fcgwse46.0-48.0The [facility] HospitalComment on above:Performed By: #### CBC #### [facility] [address] [place] [address] Dr. Tracey MccoyHemoglobin (Bld) [Mass/Vol]12.1 g/tTFaollf91.0-16.0The [facility] on above:Performed By: #### CBC #### [facility] [address] [place] [address] Dr. Tracey Lackey #0.02 10e3/ulNormal0.00-0.03The [facility] HospitalComment on above:Performed By: #### CBC #### [facility] [address] [place] [address] Dr. Tracey Lackey %0.3 %Normal0.0-0.5The [facility] HospitalComhenry for[facility] on above: Performed By: #### CBC #### [facility] [address] [place] [address] Dr. Tracey LiraMPH #2.0 103/ulNormal1.2-3.8The [facility] HospitalComment on above:Performed By: #### CBC #### [facility] [address] [place] [address] Dr. Tracey Liramphocytes/100 WBC (Bld)28.4 %Uiubee52.5-60.0The [facility] HospitalComment on above:Performed By: #### CBC #### [facility] [address] [place] [address] Dr. Tracey FariasUAL DIFF REQNONormalThe [facility] HospitalComment on above: Performed By: #### CBC #### [facility] [address] [place] [address] Dr. Tracey Anderson (RBC) [Entitic mass]28.5 cgLmsrya56.7-34.0The [facility] HospitalComment on above:Performed By: #### CBC #### [facility] [address] [place] [address] Dr. Tracey Anderson (RBC) [Mass/Vol]32.3 g/kSJqulbh97.9-35.2The [facility] HospitalComment on above:Performed By: #### CBC #### [facility] [address] [place] [address] Dr. Tracey Anderson (RBC) [Entitic vol]88.4 nPGxtmhw48.0-99.0The [facility] HospitalComment on above:Performed By: #### CBC #### [facility] [address] [place] [address] Dr. Tracey Vasquez #0.5 103/ulNormal0.3-0.8The [facility] HospitalComment on above:Performed By: #### CBC #### [facility] [address] [place] [address] Dr. Tracey Mirelesocytes/100 WBC (Bld)7.7 %Normal1.7-12.0[facility] Comment on above:Performed By: #### CBC #### [facility] [address] [place] [address] Dr. Tracey Reyes #4.4 103/ulNormal1.4-6.5The [facility] HospitalComment on above:Performed By: #### CBC #### [facility] [address] [address] [address] Tracey MccoyNeutrophils/100 WBC (Bld)63.0 %Draxhx54.0-75.0The [facility] on above:Performed By: #### CBC #### [facility] [address] [address] [address] Tracey MccoyPlatelet mean volume (Bld) [Entitic vol]9.2 fLCritically low 9.5-13.5The [facility] on above:Performed By: #### CBC #### [facility] [address] [place] [address] Dr. Tracey MccoyPLT278 103/gpTukhcz614-091Uga [facility] on above: Performed By: #### CBC #### [facility] [address] [place] [address] Dr. Tracey MccoyRBC4.24 106/ulNormal4.20-5.40The [facility] on above:Performed By: #### CBC #### [facility] [address] [place] [address] Dr. Tracey MccoyWBC6.9 103/ulNormal4.0-11.0The [facility] on above: Performed By: #### CBC #### [facility] [address] [place] [address] Dr. Tracey MccoyPROF 14(COMP METB)on [id number] [Mass/Vol]3.7 g/dLNormal 3.4-5.0The [facility] on above:Performed By: #### CMP, HSTROPN #### [facility] [address] [place] [address] Dr. Tracey MccoyAlbumin/Globulin [Mass ratio]0.9 {ratio}NormalThe [facility] on above:Performed By: #### CMP, HSTROPN #### [facility] [address] [place] [address] Dr. Tracey GuillenP [Catalytic activity/Vol]103 U/MDoovlz35-836Wyf Josef HospitalComment on above:Performed By: #### CMP, HSTROPN #### [facility] [address] [address] [address] Tracey Beach [Catalytic activity/Vol]67 U/LCritically hxpi60-83Zuk [facility] HospitalComment on above:Performed By: #### CMP, HSTROPN #### [facility] [address] [address] [address] Tracey Palmaon gap [Moles/Vol]9.6 mmol/LNormalThe [facility] HospitalComment on above:Performed By: #### CMP, HSTROPN #### [facility] [address] [place] [address] Dr. Tracey Arrieta [Catalytic activity/Vol]100 U/LCritically ioas86-31Eso [facility] HospitalComment on above:Performed By: #### CMP, HSTROPN #### [facility] [address] [place] [address] Dr. Tracey MccoyBilirubin [Mass/Vol]0.4 mg/dLNormal0.2-1.0[facility] Comment on above:Performed By: #### CMP, HSTROPN #### [facility] [address] [place] [address] Dr. Tracey MccoyCalcium [Mass/Vol]8.8 mg/dLNormal8.5-10.1[facility] Comment on above:Performed By: #### CMP, HSTROPN #### [facility] [address] [place] [address] Dr. Tracey MccoyChloride [Moles/Vol]104 mmol/FJzftzr53-370Gxu [facility] Comment on above:Performed By: #### CMP, HSTROPN #### [facility] [address] [place] [address] Dr. Tracey MccoyCO2 [Moles/Vol]28.5 mmol/SLqvhju31.0-32.0The [facility] Comment on above:Performed By: #### CMP, HSTROPN #### [facility] [address] [address] [address] Tracey MccoyCreatinine [Mass/Vol]0.71 mg/dLNormal0.55-1.02The [facility] HospitalComment on above:Performed By: #### CMP, HSTROPN #### [facility] [address] [address] [address] Tracey MedranoGFR-AF TURKS AND CAICOS ISLANDER>60Normal>=60The [facility] HospitalComment on above:Performed By: #### CMP, HSTROPN #### [facility] [address] [place] [address] Dr. Tracey MedranoGFR-NON AF TURKS AND CAICOS ISLANDER>60Normal>=60The [facility] HospitalComment on above:Performed By: #### CMP, HSTROPN #### [facility] [address] [place] [address] Dr. Tracey MccoyGlobulin (S) [Mass/Vol]3.9 g/dLNormalThe [facility] HospitalComment on above:Performed By: #### CMP, HSTROPN #### [facility] [address] [place] [address] Dr. Tracey MccoyGlucose [Mass/Vol]113 mg/dLCritically rrzr84-629Prc [facility] HospitalComment on above:Performed By: #### CMP, HSTROPN #### [facility] [address] [place] [address] Dr. Tracey MccoyPotassium [Moles/Vol]3.1 mmol/LCritically low3.5-5.1The [facility] HospitalComment on above:Performed By: #### CMP, HSTROPN #### [facility] [address] [place] [address] Dr. Tracey MccoyProtein [Mass/Vol]7.6 g/dLNormal6.4-8.2The [facility] Comment on above:Performed By: #### CMP, HSTROPN #### [facility] [address] [place] [address] Dr. Tracey MccoySodium [Moles/Vol]139 mmol/NEnmbfy639-684Bpv [facility] Comment on above:Performed By: #### CMP, HSTROPN #### [facility] [address] [address] [address] Tracey MccoyUrea nitrogen [Mass/Vol]9.0 mg/dLNormal7.0-18.0The [facility] HospitalComment on above:Performed By: #### CMP, HSTROPN #### [facility] [address] [address] [address] Tracey MccoyUrea nitrogen/Creatinine [Mass ratio]12.7 mg/mgNormalThe [facility] HospitalComment on above:Performed By: #### CMP, HSTROPN #### [facility] [address] [address] [address] Tracey Miller, HIGH SENSITIVITYon 85-96-4073YFLWFF9.8 pg/mLNormal 4.0-51.3The [facility] HospitalComment on above:Result Comment: CUT-OFF POINTS HAVE BEEN ESTABLISHED BASED ON THE FOURTH UNIVERSAL DEFINITIONS OF MYOCARDIAL INFARCTION. THE UPPER REFERENCE LIMIT (URL) OF TROPONIN, DEFINED THE 99TH PERCENTILE OF cTnI DISTRIBUTION IN A REFERENCE POPULATION, HAS BEEN CONFIRMED THE DECISION THRESHOLD FOR [place] DIAGNOSIS.Performed By: #### CMP, HSTROPN #### [facility] [address] [address] [address] Tracey MccoyXR CHEST 1 Von [id number] CHEST 1 VEXAM: XR CHEST 1 V HISTORY: COUGH COMPARISON: [...] Electronically authenticated by: CHAN RICHEY Date: 2022-02-23 03:04[facility] Vital Signs Date TimeVital SignValuePerforming NgwtibxctIflhmezg06-29-9889 13:08-0500Body ncfoaq245.64 cmLisa Aichholz [employer] Work Phone: [phone]11-06-2025 13:08-0500 Body mass index (BMI) [Ratio]42 kg/m2Lisa Aichholz [employer] Work Phone: [phone])[address]66 [address]11-06-2025 13:08-0500 Body dqcdvcfuwvy42.5 [degF]Elvie Aichholz [employer] Work Phone: [phone] [address]11-06-2025 13:08-0500 Body jgsyyb091.16 kgLisa Aichholz [employer] Work Phone: [phone])[address]11-06-2025 13:08-0500 Diastolic blood qqesfaic97 mm[Hg]Elvie Aichholz [employer] Work Phone: [phone])[address]11-06-2025 13:08-0500 Heart rate94 /minLisa Aichholz [employer] Work Phone: [phone])06466 [address]11-06-2025 13:08-0500 Respiratory rate18 /minLisa Aichholz [employer] Work Phone: [phone])13766 [address]11-06-2025 13:08-0500 SaO2% (BldA) [Mass fraction]99 %Elvie Aichholz [employer] Work Phone: [phone] [place], [place] [address]11-06-2025 13:08-0500 Systolic blood hihsxgrb368 mm[Hg]Elvie Aichholz [employer] Work Phone: [phone] [place], [place] [address]10-23-2025 09:58-0400 Body mass index (BMI) [Ratio]42.93 kg/m2Tosonal Cordova MD Work Phone: noSaint [facility] SystemMsohxrpwri01-06-9712 09:58-0400Body zopuqa265.66 kgTosonal Cordova MD Work Phone: noSaint [facility] SystemGrfthagcak87-42-0904 15:33-0400Body lcoipd213.6 cmPaul Laffay DO Work Phone: noSaint John[facility] Health SystemPkhgmytajv58-96-4423 15:33-0400Body mass index (BMI) [Ratio]45.19 kg/m2Paul Laffay DO Work Phone: [facility] HospitalFyajikpeez61-25-0671 15:33-0400Body onxwci370.01 kgPaul Laffay DO Work Phone: [facility] HospitalYrtsasvwkr00-19-3176 14:09-0400Body mass index (BMI) [Ratio]45.35 kg/m2Lisa Percy [employer] Work Phone: [facility] HospitalRpnqjmbwfs47-67-9745 14:09-0400Body temperature 98.1 [degF]Elvie Greer [employer] Work Phone: [facility] HospitalIqfsspxwwl13-33-9999 14:09-0400Body yhgfoy463.46 kgLisa Percy [employer] Work Phone: [facility] HospitalXnzvoexluj48-16-6607 14:09-0400Diastolic blood qnvkidmt51 mm[Hg]Elvie Greer [employer] Work Phone: [facility] HospitalMsrzbqxgqz75-64-2747 14:09-0400Heart rate83 /min Elvie Percy [employer] Work Phone: [place] [phone] 14:09-0400Respiratory rate18 /minLisa Greer [employer] Work Phone: [address] [address]Ttufqyylpi99-85-4067 14:09-5077PjG6% (BldA) [Mass fraction]99 %Elvie Greer [employer] Work Phone: [facility] HospitalVybujodfug46-08-1140 14:09-0400Systolic blood wlyxlbfs264 mm[Hg]Elvie Greer [employer] Work Phone: noSaint [facility] SystemUwmrripinz61-34-5695 10:50-0400Body mass index (BMI) [Ratio]47.45 kg/m2Tosonal Cordova MD Work Phone: noSaint [facility] Health SystemRmuolwnptp47-38-0092 10:50-0400Body asmblh902.36 kgTosonal Cordova MD Work Phone: noSaint [facility] Health SystemFendlstgcd51-96-0618 14:25-0400Body mass index (BMI) [Ratio]47.45 kg/m2Elvie Greer [employer] Work Phone: noSaint [facility] Health SystemOaehsgxrmh86-57-5980 14:25-0400Body temperature 97.81 [degF]Elvie Greer [employer] WORK[employer] Work Phone: noSaint [facility] Health SystemNnlouqkaib93-31-8864 14:25-0400Body joxwav072.36 kgElvie Greer [employer] WORK[employer] Work Phone: [facility] HospitalZugvseoqyx11-00-6385 14:25-0400Diastolic blood dcuhavva76 mm[Hg]Elvie Greer [employer] Work Phone: noSaint [facility] SystemCwygigzcbt66-66-3944 14:25-0400Heart rate88 /min Elvie Greer [employer] Work Phone: noSaint [facility] SystemUmflozmxog32-35-3365 14:25-0400Respiratory rate20 /minLisa Greer [employer] WORK[employer] Work Phone: [facility] HospitalTlvkyljdck91-66-3798 14:25-1457SpG8% (BldA) [Mass fraction]98 %Elvie Greer [employer] WORK[employer] Work Phone: noSaint [facility] Health SystemKpvitjinsu46-53-7920 14:25-0400Systolic blood dukijbxx252 mm[Hg]Elvie Greer [employer] WORK[employer] Work Phone: noSaint John's Health SystemFdccpmqhnz59-99-2242 11:53-0400Body mass index (BMI) [Ratio]47.63 kg/y1JemdbJavier Morales DO Work Phone: [facility] HospitalJeyyqtpzhv68-80-6017 11:53-0400Body ewiygi069.87 kgCorey Andrew DO Work Phone: [facility] HospitalSoirkcxnup61-44-9066 11:53-0400Diastolic blood omjhlwec37 mm[Hg]Javier Andrew DO Work Phone: [facility] HospitalKghsooemoh74-61-5190 11:53-0400Systolic blood mm[Hg]Javier Andrew DO Work Phone: [facility] HospitalUiuqzeukaa01-28-1963 16:08-0400Body iecwtl899.6 cmMichael Khan DO Work Phone: [facility] HospitalFsyakxzusn22-06-7555 16:08-0400Body mass index (BMI) [Ratio]48.45 kg/m6Cqifrtg Khan DO Work Phone: [facility] HospitalZdoxlmpvvj21-75-4641 16:08-0400Body sedjvs717.17 kgMichael Khan DO Work Phone: [facility] HospitalMbllyhbfso77-82-0503 15:31-0400Diastolic blood cyrxebku70 mm[Hg]Elvie Percy [employer] Work Phone: [place] [phone] 15:31-0400Systolic blood gygcgsyq702 mm[Hg]Elvie Chingz [employer] WORK[employer] Work Phone: [facility] HospitalJfcpzsiuaq87-45-5639 14:53-0400Body mass index (BMI) [Ratio]48.94 kg/m2Gingersa Chingz [employer] WORK[employer] Work Phone: [place] [address]Hgqxfrhzte65-67-7258 14:53-0400Body temperature 98.49 [degF]Elvie Chingz [employer] WORK[employer] Work Phone: [place] [address]Vlnjsartcn15-88-8357 14:53-0400Body oolwns779.53 kgLisa Amadorhholz [employer] WORK[employer] Work Phone: [place] [address]Rvqvgdyxyz83-99-9031 14:53-0400Heart rate92 /min Elvie Percy [employer] Work Phone: [phone] Blair StreetNzmkccblfd92-81-7945 14:53-0400Respiratory rate20 /minLisa Greer [employer] WORK[employer] Work Phone: [facility] HospitalEjvdsapoqi95-95-0538 14:53-4132EqR8% (BldA) [Mass fraction]99 %Elvie Flowernikolas [employer] WORKER Work Phone: [facility] HospitalQzqveawhms42-64-3349 10:10-0400Body mass index (BMI) [Ratio]48.55 kg/m5Vxeoa Andrew DO Work Phone: [facility] HospitalDgsagrpmry84-31-0749 10:10-0400Body ehmiet402.44 kgCorey Andrew DO Work Phone: [facility] HospitalDbtiqywiiy85-74-2391 10:10-0400Diastolic blood jrapgkyd32 mm[Hg]Javier Andrew DO Work Phone: [facility] HospitalTzjrxmonwa12-63-7475 10:10-0400Systolic blood mm[Hg]Javier Andrew DO Work Phone: [facility] HospitalJlbukrseqe48-58-3481 08:41-0500Body vbvect551.6 cmLisa Gabrieltrevonz [employer] WORK[employer] Work Phone: [facility] HospitalKwfspcrjkf14-64-8669 08:41-0500Body mass index (BMI) [Ratio]48.1 kg/m2Gingersa Chingz [employer] WORKER Work Phone: [facility] HospitalUexscijeka73-19-0709 08:41-0500Body temperature 98.71 [degF]Elvie Riosmicha [employer] WORK[employer] Work Phone: [facility] HospitalUvxgrjrfgj38-06-9249 08:41-0500Body .17 kgLi Amadormarymicha [employer] WORKER Work Phone: [facility] HospitalHupmqdbbdc78-86-1856 08:41-0500Diastolic blood mjqovscb26 mm[Hg]Elvie Chingz [employer] WORK[employer] Work Phone: [facility] HospitalOiruzsoika30-88-9551 08:41-0500Heart rate91 /min Elvie Englishtito [employer] WORKER Work Phone: [facility] HospitalFwrehfmdzp08-92-7402 08:41-0500Respiratory rate19 /minElvie Greer [employer] WORK[employer] Work Phone: [facility] HospitalNxmxwumxfr73-67-5868 08:41-0136InL6% (BldA) [Mass fraction]97 %Elvie Greer [employer] WORK[employer] Work Phone: [facility] HospitalTeytgeudks52-67-2806 08:41-0500Systolic blood jfcqaejw943 mm[Hg]Elvie Greer [employer] Work Phone: [facility] HospitalIpquzfhkzd08-93-0782 14:45-0500Body jolvjk373.6 cmMicrosalvasaravanan Khan DO Work Phone: [facility] HospitalXbzcodpzac13-50-9836 14:45-0500Body mass index (BMI) [Ratio]47.78 kg/h8Elhhklc Khan DO Work Phone: [facility] HospitalJhqcblmmlk12-71-7056 14:45-0500Body ofvcvx010.26 kgMichael Khan DO Work Phone: [facility] HospitalRggvhjrjty73-50-0605 16:57-0500Heart rate80 /min Chan Khan [address] [place], [place] 6690112-16-2024 16:57-1097JzG9% (BldA) [Mass fraction]99 %Chan Khan [address] [place], [place] 6690112-16-2024 16:56-0500Blood Pressure LocationMicmarissa Khan [address] [place], [place] 6690112-16-2024 16:56-0500 Diastolic blood olmljgkf32 mm[Hg]Chan Khan [address] [place], [place] 6690112-16-2024 16:56-0500Mean blood cerqwijd86 mm[Hg]Chan Khan [address] [place], [place] 6690112-16-2024 16:56-0500 Systolic blood hhjajivi634 mm[Hg]Chan Khan [address] [place], [place] 6690112-16-2024 16:56-0500 Respiratory rate16 /minMichael Khan [address] [place], [place] 6690112-16-2024 16:13-0500Heart rate60 /minMichael Khan [address]12-16-2024 16:13-9749DeX7% (BldA) [Mass fraction]98 %Chan Khan [address]12-16-2024 16:13-0500 Respiratory rate18 /minMichael Khan [address] [place], [place] 5777912-16-2024 16:13-0500Blood Pressure LocationMichael Khan [address]12-16-2024 16:13-0500 Diastolic blood mm[Hg]Chan Khan [address]12-16-2024 16:13-0500Mean blood iuytiwxy21 mm[Hg]Chan Khan [address]12-16-2024 16:13-0500 Systolic blood ttiktwnj015 mm[Hg]Chan Khan [address]12-16-2024 13:38-0500Heart rate78 /minMichael Khan [address] [place], [place] 6690112-16-2024 13:38-3274NlD2% (BldA) [Mass fraction]100 %Chan Khan [address] [place], [place] 6690112-16-2024 13:37-0500Blood Pressure LocationMichael Khan [address] [place], [place] 6690112-16-2024 13:37-0500 Diastolic blood ynengrco07 mm[Hg]Chan Khan [address]12-16-2024 13:37-0500Mean blood atvwwlhl75 mm[Hg]Chan Khan [address]12-16-2024 13:37-0500 Systolic blood majxqxuf986 mm[Hg]Chan Loren [address]12-16-2024 13:37-0500 Respiratory rate16 /minMichael Khan [address] [place], [place] 5777912-16-2024 13:30-0500Body rxgebosquck33.8 [degF]Chan Loren [address]12-16-2024 13:30-0500 Respiratory rate13 /minMichael Khan [address] [place], [place] 5777912-16-2024 13:25-0500 Respiratory rate17 /minMichael Khan [address] [place], [place] 5777912-16-2024 13:10-0500 Respiratory rate20 /minMichael Khan [address] [place], [place] 5777912-16-2024 12:27-0500Body .16 [degF]Chan Loren [address] [place], [place] 5777912-16-2024 08:25-0500Body wcnckrhnluk39.7 [degF]Chan Loren [address]12-03-2024 08:27-0500Body usustj920.6 Sobeidaisa Percy [employer] Work Phone: [facility] HospitalNqwkstbdvh21-43-3366 08:27-0500Body mass index (BMI) [Ratio]47.81 kg/m2Lisa Percy [employer] Work Phone: noSaint [facility] SystemUaogqgztko90-73-0498 08:27-0500Body temperature 98.6 [degF]Elvie Percy [employer] Work Phone: noSaint [facility] SystemDpqtuairjn38-60-5880 08:27-0500Body fdotre025.35 kgLisa Percy [employer] Work Phone: [facility] HospitalSpamsspixb66-17-5455 08:27-0500Diastolic blood mptywysi96 mm[Hg]Elvie Riosmicha [employer] Work Phone: [facility] HospitalAjlkogafqa16-49-1356 08:27-0500Heart rate89 /min Elvie Greer [employer] Work Phone: [facility] HospitalGjrqzkqsvr34-48-1934 08:27-0500Respiratory rate20 /minElvie Riosmicha [employer] Work Phone: [facility] HospitalMnhwkxyxcs00-26-9403 08:27-4977YoR5% (BldA) [Mass fraction]98 %Elvie Riosmicha [employer] Work Phone: [facility] HospitalNsjcdpexlv79-15-2139 08:27-0500Systolic blood cjkstwet866 mm[Hg]Elvie Greer [employer] Work Phone: [facility] HospitalQxbszqrpgt90-01-6646 08:41-0500Diastolic blood mm[Hg]Chan Khan [address] [place], [place] 669[address]11-19-2024 08:41-0500Heart rate78 /minMichael Khan [address] [place], [place] 6690111-19-2024 08:41-0500Mean blood udqekwmu55 mm[Hg]Chan Khan [address] [place], [place] [address]11-19-2024 08:41-0500 Systolic blood xrotajse004 mm[Hg]Chan Khan [address]2024 08:41-0500Body geukmcmafow62.88 [degF]Chan Khan [address] [place], [place] 669[address]11-19-2024 08:41-0500 Respiratory rate17 /minMichael Khan [address] [place], [place] 669[address]11-19-2024 08:40-0500Heart rate76 /minMichael Khan [address] [place], [place] 669[address]11-19-2024 08:40-8134AbT4% (BldA) [Mass fraction]100 %Chan Khan [facility]2024 08:40-0500 Diastolic blood hakkywii19 mm[Hg]Chna Khan [facility]2024 08:40-0500Mean blood esxecdzi22 mm[Hg]Chan Khan [facility]2024 08:40-0500 Systolic blood swdjytzj578 mm[Hg]Chan Khan [address] [place], [place] [address]11-07-2024 15:18-0500Body ydrqpf690.6 cmMicmarissa Connect Work Phone: [phone]11-07-2024 15:18-0500Body mass index (BMI) [Ratio]48.1 kg/l9Eynadjz Connect Work Phone: [phone] [place], [place] [address]11-07-2024 15:18-0500Body .17 kgMicmarissa Connect Work Phone: [phone]09-20-2024 10:57-0400Body [address]wiuy289.[address]-20-2024 10:57-0400Body mass index (BMI) [Ratio]51.1 kg/z8Igsncqxvl[address] [facility]09-20-2024 10:57-0400Body tjsgnpjaqzz37.8 [degF][facility]09-20-2024 10:57-0400Body atevzx793.[address]09-20-2024 10:57-0400Diastolic blood eutlebja52 mm[Hg][facility]09-20-2024 10:57-0400 Heart rate98 /[facility]09-20-2024 10:57-0400 Respiratory rate16 /[facility]09-20-2024 10:57-0400 SaO2% (BldA) [Mass fraction]99 %[facility]09-20-2024 10:57-0400Systolic blood byxpyrtz435 mm[Hg][facility] 11-09-2023 14:04-0400Body mass index (BMI) [Ratio]51.62 kg/m2Elvie Greer [employer] Work Phone: noSaint [facility] SystemFnyzjsxvzy86-75-8543 14:04-0400Body temperature 97.81 [degF]Elvie Greer [employer] Work Phone: noSaint [facility] SystemPmmosxeooo83-95-8817 14:04-0400Body .71 kgElvie Greer [employer] WORK[employer] Work Phone: noSaint [facility] SystemUmuirnpvho38-26-6229 14:04-0400Diastolic blood ftxwomoh35 mm[Hg]Elvie Greer [employer] Work Phone: [facility] HospitalUiwdkdleax42-22-6181 14:04-0400Heart rate84 /min Elvie Greer [employer] Work Phone: noSaint [facility] Health SystemEodrzgobjq77-71-7093 14:04-6175JgB1% (BldA) [Mass fraction]100 %Elvie Greer [employer] Work Phone: noSaint [facility] SystemBbkbdkfrst02-24-0227 14:04-0400Systolic blood ecvvptsr972 mm[Hg]Elvie Greer [employer] Work Phone: noSaint John's Health SystemLhyzbysmci75-79-7772 09:45-0500Body tyohgl519.48 cmPlittle Thibodeaux Other [facility] [employer] Other 12-22-2023 09:45-0500Body mass index (BMI) [Ratio] 57.13 kg/o0UtjovqMary Jo Thibodeaux Other [employer] Other 12-22-2023 09:45-0500Body uqppbpzpyoz22.2 [degF]Mary Jo Thibodeaux Other [employer] Other 12-22-2023 09:45-0500Body qezzry155.7 kgMary Jo Thibodeaux Other [facility] [employer] Other 12-22-2023 09:45-0500Diastolic blood evxcsjrg34 mm[Hg] Mary Jo Chunmond Other [facility] [employer] Other 12-22-2023 09:45-0500Respiratory rate18 /minKurtkarlicruzito Thibodeaux Other [facility] [employer] Other 12-22-2023 09:45-3125UfB7% (BldA) [Mass fraction]98 % Mary Jo Morelia Other [facility] [employer] Other 12-22-2023 09:45-0500Systolic blood vncihbnu427 mm[Hg] Mary Jo Morelia Other [facility] [employer] Other Encounters Encounter DateEncounter TypeCare ProviderFacilityStart: 01-11-2025 End: 85-76-9809jakvwgedwtHsfj J Aichholz NP-C Work Phone: -[facility] ClydeStart: 01-11-2025 End: 86-08-3687Iegobvc encounter procedureLisa Tuan Greer [employer]-C-[facility] Work Phone: Start: 12-28-2024 End: 85-73-6373Mtowgl flowsJefferson Cordova MD Work Phone: noms [facility] AllergyStart: 12-28-2024 End: 72-43-1221Gzvkoo flowsJefferson Cordova MD Work Phone: noms [facility] AllergyStart: 12-28-2024 End: 41-26-3286dnxyxnqqgdKWHRPedro Louise AvailableStart: 12-28-2024 End: 98-28-1880Mbdvhw outpatient visit 25 minutesTosonal Cordova MD Work Phone: NOPM [facility] AllergyComment on above:Allergic rhinitis due to grass pollen (Primary Dx); Moderate persistent asthma without complication (HCC)Start: 11-30-2024 End: 91-99-4134nrubzsqoclDKHQPAdena Regional Medical Centertart: 43-72-1075Qoq-patient / Non-visitElvie Greer NP-C-[facility] Work Phone: Start: 11-16-2024 End: 55-81-3797Lgbjba flowsheetTosonal Cordova MD Work Phone: NOQA [facility] AllergyStart: 11-16-2024 End: 31-30-8537Sbefkp flowsheetPrabhakar Cordova MD Work Phone: NOVG [facility] AllergyStart: 11-16-2024 End: 65-87-9401Yqbyxf outpatient visit 25 minutesTosonal Cordova MD Work Phone: NOUN [facility] AllergyComment on above:Severe persistent asthma with acute exacerbation (HCC) (Primary Dx); Chronic rhinitisStart: 11-16-2024 End: 96-24-3269IntflfWjwgLina Cordova MD Work Phone: NOAP [facility] AllergyComment on above:Severe persistent asthma with acute exacerbation (HCC)Start: 11-02-2024 End: 53-24-6999KleclaJbta Aichholz NP Work Phone: noms CWM FMComment on above:Anxiety and depression Start: 10-31-2024 End: 86-19-0455Ipvfjf outpatient visit 25 minutesPaul C Laffay DO Work Phone: noms Surgical AssociatesComment on above:Recurrent ventral hernia with incarceration (Primary Dx)Start: 10-31-2024 End: 99-06-5475vmdohfzzmdQUZY C LAFFAYNot AvailableStart: 10-19-2024 End: 77-04-7942Pmczjcs encounter procedurePaul C Laffay DO-[facility] [place] Work Phone: Start: 10-19-2024 End: 11-01-7457szaisbpephZwdk Tuan Englishhholz Work Phone: [facility] Work Phone: Start: 10-12-2024 End: 05-73-3452Jqrkig outpatient new 45 minutesPaul C Laffay DO Work Phone: noms Surgical AssociatesComment on above:Recurrent ventral herniaStart: 10-12-2024 End: 12-22-4281ksprynhvogLCQI C LAFFAYNot AvailableStart: 10-10-2024 End: 36-30-4460Ewzqve flowsheetLisa Aichholz [employer] Work Phone: noms CWM FMStart: 10-10-2024 End: 26-24-5479Ekjbse flowsheetLisa Aichholz [employer] Work Phone: noms CWM FMStart: 10-10-2024 End: 40-19-7323Ufuiog outpatient visit 25 minutesLisa Amadorhtrevonz [employer] WORKER Work Phone: noms CWM FMComment on above:Heart palpitations (Primary Dx); Essential hypertension ; Morbid (severe) obesity due to excess calories ([facility]-HCC); Hypothyroidism, unspecified type ; Anxiety and depression ; Hypomagnesemia; Moderate persistent asthma without complication ([facility]); Gastroesophageal reflux disease, unspecified whether esophagitis present; Ventral hernia without obstruction or gangreneStart: 10-10-2024 End: 57-80-9960vqlpxfutrwYFRN AICHHOLZNot AvailableStart: 10-03-2024 End: 19-42-6496AtncanAmpj Aichholz [employer] Work Phone: noms CWM FMComment on above:HypomagnesemiaStart: 09-26-2024 End: 97-31-9488SjkwdtLcpa Aichholz [employer] Work Phone: noms CWM FMComment on above:Hypothyroidism, unspecified type (Primary Dx)Start: 09-21-2024 End: 38-95-9318Txquonmls Result EncounterLisa Aichholz [employer] Work Phone: noms External Department UnsolicitedStart: 09-21-2024 End: 22-32-6941Ujyavgbdg Result EncounterLisa Aichholz [employer] WORK[employer] Work Phone: noms External Department UnsolicitedStart: 09-15-2024 End: 76-35-4658kzfazerqdrYFYCKPremier Health [facility] Northtart: 09-11-2024 End: 05-45-1820Cqebsa flowsheetCorey Andrew DO Work Phone: noms BCP OBStart: 09-11-2024 End: 52-66-9752Lwrvmf flowsheetCorey Andrew DO Work Phone: noms BCP OBStart: 09-11-2024 End: 14-06-9967hqoilhzwnmVJVBX FAZIONot AvailableStart: 09-11-2024 End: 48-54-2805Mkbzek digital e/m svc est pt <7 d 5-10 minutesCorey Andrew DO Work Phone: noms BCP OBComment on above:Hormone disorder (Primary Dx)Start: 09-07-2024 End: 40-85-6426Riamoj outpatient new 45 minutesTodd E Rambasek Work Phone: noms SWS ALLComment on above:Environmental and seasonal allergies (Primary Dx); Mild intermittent asthma with (acute) exacerbation (HCC)Start: 09-07-2024 End: 94-76-3141wbqqjjhnrcWTQW E RAMBASEKNot AvailableStart: 09-05-2024 End: 40-37-3895Lqufdbfug Result EncounterLisa Aichholz [employer] Work Phone: noms External Department UnsolicitedStart: 09-05-2024 End: 32-75-7057Knlbtttqu Result EncounterLisa Aichholz [employer] Work Phone: noms External Department UnsolicitedStart: 08-08-2024 End: 06-57-9869Fzemcm outpatient visit 25 minutesLisa Aichholz [employer] Work Phone: noms CWM FMComment on above:Heart palpitations (Primary Dx); Ventricular arrhythmia; Gastroesophageal reflux disease, unspecified whether esophagitis present; Morbid (severe) obesity due to excess calories (CMS/HCC); Anxiety and depression (CMS/HCC); Environmental and seasonal allergies; Moderate persistent asthma without complication (CMS/HCC)Start: 08-08-2024 End: 84-57-0117mvvltdoyrrUQMM AMADORMaryLUPILLOot AvailableStart: 08-08-2024 End: 10-84-8457Uwnjsk flowsheetElvie Greer [employer] Work Phone: NOAX CWM FMStart: 08-08-2024 End: 36-54-9826Yvwrnc flowsErmelinda Riosholz [employer] Work Phone: noms CWM FMStart: 08-03-2024 End: 37-77-2851Xuzgqx OnlyLisa Flowernikolas [employer] WORKER Work Phone: NOKY CWM FMComment on above:Heart palpitations (Primary Dx); Morbid (severe) obesity due to excess calories (CMS/HCC); Ventricular arrhythmia; Abnormal electrocardiogram (ECG) (EKG)Heart palpitations (Primary Dx); Ventricular arrhythmiaStart: 08-03-2024 End: 49-97-5482Aeykal outpatient visit 15 minutesJavier Morales DO Work Phone: NOHY BCP OBComment on above:Hormone disorderStart: 07-12-2024 End: 12-57-6289KmxallXepo Aichholnikolas [employer] WORKER Work Phone: NOIR CWM FMComment on above:Hypothyroidism, unspecified type (CMS/HCC) (Primary Dx)Start: 07-11-2024 End: 39-76-1269Dvfxuzttl Result EncounterLisa Flowernikolas [employer] WORK[employer] Work Phone: noms External Department UnsolicitedStart: 07-11-2024 End: 02-25-3987Xcfclweeq Result EncounterLisa Gabrielholz [employer] Work Phone: noms External Department UnsolicitedStart: 06-27-2024 End: 24-26-9848Ltjiskztz Result EncounterLisa Aichholz [employer] Work Phone: NOSA External Department UnsolicitedStart: 06-27-2024 End: 44-40-6002Fjbtlnlxv Result EncounterLisa Aichholz [employer] WORK[employer] Work Phone: noms External Department UnsolicitedStart: 06-27-2024 End: 55-69-8703LfcgovKsuf Aichholz [employer] WORK[employer] Work Phone: NOMS CWM FMComment on above:Hypomagnesemia (Primary Dx)Start: 06-22-2024 End: 83-30-5171Wttlezt encounter procedureMichael T Khan DO Work Phone: NOMS NB ORTHOComment on above:Aftercare following right knee joint replacement surgery (Primary Dx)Start: 06-22-2024 End: 31-86-0801usjbdgddhdODKFQRF T POWERSNot AvailableStart: 06-22-2024 End: 53-15-7314zztotoidbyDZOMAHA T POWERSNot AvailableStart: 06-20-2024 End: 07-27-1915vfbpuhscreLVGP AICHHOLZNot AvailableStart: 06-20-2024 End: 67-98-4220Feuqif outpatient visit 25 minutesLisa Aichholz [employer] WORK[employer] Work Phone: NOMS CWM FMComment on above:Heart palpitations (Primary Dx); Gastroesophageal reflux disease, unspecified whether esophagitis present; Morbid (severe) obesity due to excess calories ([facility]); HypomagnesemiaStart: 06-20-2024 End: 44-07-2570Wxoaty flowsheetLisa Aichholz [employer] WORK[employer] Work Phone: NOMS CWM FMStart: 06-20-2024 End: 23-89-6877Njhdtt flowsheetLisa Aichholz [employer] WORK[employer] Work Phone: NOMS CWM FMStart: 06-09-2024 End: 73-05-3895LevtotAksc Aichholz [employer] WORK[employer] Work Phone: noms CWM FMComment on above:Anxiety and depression (CMS/HCC)Start: 05-30-2024 End: 05-68-3825Pfdcllz encounter procedureCorey Andrew DO Work Phone: noms HealthcareStart: 05-30-2024 End: 59-24-7706Xynrpggs preventive med est patient 40-64yrsCorey Andrew DO Work Phone: noms BCP OBComment on above:Well woman exam with routine gynecological exam; Encounter for screening mammogram for malignant neoplasm of breastStart: 05-30-2024 End: 12-39-5043yxwlfjmgvgBWXRA FAMELINDAONot AvailableStart: 05-25-2024 End: 57-56-2857Xnvcszodl to same day surgery centerSammantha Fernandez PTNOMS CI PTComment on above:Acute postoperative pain of right knee (Primary Dx); Status post right knee replacement; Aftercare following right knee joint replacement surgery; Arthritis of knee, rightStart: 05-25-2024 End: 05-33-3952nkournjnyxVehpobuud Fernandez PTNOMS CI PTStart: 05-23-2024 End: 47-79-2128dnbtqpkkyqXZJTKVMGA SCHNEIDERNot AvailableStart: 05-16-2024 End: 68-50-5966cdhebgtnunWYPZNOAFE SCHNEIDERNot AvailableStart: 05-16-2024 End: 01-46-9230Tpisvk flowsheetSammantha Fernandez PTNOMS CI PTStart: 05-16-2024 End: 66-30-2110Uhrclu flowsheetSammantha Fernandez PTNOMS CI PTStart: 05-10-2024 End: 62-50-9694xymcoxfwarWhwcopqxb Fernandez PTNOMS CI PTStart: 05-10-2024 End: 65-11-5983Tdfqlszng to same day surgery centerSammantha Fernandez PTNOMS CI PTComment on above:Acute postoperative pain of right knee (Primary Dx); Status post right knee replacement; Aftercare following right knee joint replacement surgery; Arthritis of knee, right; Presence of right artificial knee jointHypothyroidism, unspecified type (CMS/HCC) (Primary Dx); HypomagnesemiaStart: 05-10-2024 End: 10-04-2075Fxfziyshp Result EncounterElvie Greer [employer] WORK[employer] Work Phone: noms External Department UnsolicitedStart: 05-10-2024 End: 32-61-9753Okuawuyyb Result EncounterElvie Greer [employer] WORK[employer] Work Phone: noms External Department UnsolicitedStart: 05-09-2024 End: 29-60-1208Ennzii outpatient visit 25 minutesLisa Greer [employer] WORK[employer] Work Phone: noms CWM FMComment on above: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); Morbid (severe) obesity due to excess calories (CMS/HCC); Body mass index (BMI) 45.0-49.9, adult (CMS/HCC); Mild persistent asthma without complication (CMS/HCC); Gastroesophageal reflux disease, unspecified whether esophagitis present; Anxiety and depression (CMS/HCC); Hypomagnesemia; Elevated glucose; Moderate persistent asthma without complication (CMS/HCC); Moderate persistent asthma, uncomplicated (CMS/HCC); Other constipationStart: 05-09-2024 End: 14-74-1743loyrpannzxTVOC AICHHOLZNot AvailableStart: 05-08-2024 End: 48-27-0265Wfbuiknwl to same day surgery centerSammantha Fernandez PTNOMS CI PTComment on above:Acute postoperative pain of right knee (Primary Dx); Status post right knee replacement; Aftercare following right knee joint replacement surgery; Arthritis of knee, right; Presence of right artificial knee joint; Primary osteoarthritis of right kneeStart: 05-08-2024 End: 37-28-9951dyxsvvsfarQpukmkear Fernandez PTNOMS CI PTStart: 05-08-2024 End: 76-27-0985Slpngn flowsheetSammantha Fernandez PTNOMS CI PTStart: 05-08-2024 End: 56-15-8791Qtlcol flowsheetSammantha Fernandez PTNOMS CI PTStart: 05-03-2024 End: 59-97-1545Wdxzvoewj to same day surgery centerSammantha Fernandez PTNOMS CI PTComment on above:Acute postoperative pain of right knee (Primary Dx); Status post right knee replacement; Aftercare following right knee joint replacement surgery; Arthritis of knee, rightStart: 05-03-2024 End: 47-13-1942Zkwnsk flowsheetSammantha Fernandez PTNOMS CI PTStart: 05-03-2024 End: 29-94-1813Nhnqzs flowsheetSammantha Fernandez PTNOMS CI PTStart: 05-03-2024 End: 00-35-4445itgfrromhqCclyfskmk Fernandez PTNOMS CI PTStart: 05-01-2024 End: 70-55-1247Oyagjx flowsheetSammantha Fernandez PTNOMS CI PTStart: 05-01-2024 End: 63-08-4404Zqjbax flowsheetSammantha Fernandez PTNOMS CI PTStart: 05-01-2024 End: 67-12-5897Fktswrqrh to same day surgery centerSammantdamien Fernandez PTNOMS CI PTComment on above:Acute postoperative pain of right knee (Primary Dx); Status post right knee replacement; Aftercare following right knee joint replacement surgery; Arthritis of knee, right; Presence of right artificial knee joint; Primary osteoarthritis of right kneeStart: 05-01-2024 End: 82-66-2922ewxpaauxzeGpwifaumy Fernandez PTNOMS CI PTStart: 04-26-2024 End: 38-06-6521Rmbrrb flowsheetMarshall Brink PTANOMS CI PTStart: 04-26-2024 End: 29-22-3655Yauwcx flowsheetMarshall Brink PTANOMS CI PTStart: 04-26-2024 End: 50-99-1327luepprcwuoRjpelivi Brink PTANOMS CI PTComment on above:Acute postoperative pain of right knee (Primary Dx); Status post right knee replacement; Difficulty walkingStart: 04-24-2024 End: 94-58-7545Ddmerqlxg to same day surgery centerSmichelle Fernandez PTNOMS CI PTComment on above:Acute postoperative pain of right knee (Primary Dx); Status post right knee replacement; Difficulty walking; Aftercare following right knee joint replacement surgery; Arthritis of knee, rightStart: 04-24-2024 End: 23-37-4878wxieurkoxyUzvmniunw Fernandez PTNOMS CI PTStart: 04-24-2024 End: 25-90-0976Gtozje flowsheetSammantha Fernandez PTNOMS CI PTStart: 04-24-2024 End: 22-79-2094Tlepya flowsheetSammantha Fernandez PTNOMS CI PTStart: 04-18-2024 End: 88-87-4531Rntueuygk Result EncounterCorey Andrew DO Work Phone: NOMS External Department UnsolicitedStart: 04-18-2024 End: 81-11-3337Hrhtevyar Result EncounterCorey Andrew DO Work Phone: noms External Department UnsolicitedStart: 04-12-2024 End: 56-16-7381Tynfkoeos to same day surgery lawndaleElis Cardenas PTANO CI PT Comment on above:Acute postoperative pain of right knee (Primary Dx); Status post right knee replacement; Difficulty walking; Aftercare following right knee joint replacement surgeryStart: 04-12-2024 End: 60-72-3459tkibhauoqpZkitgky Kelbley PTANOMS CI PTStart: 04-12-2024 End: 96-25-8165Ldtmno flowsheetElis Cardenas PTANOMS CI PTStart: 04-12-2024 End: 90-53-6763Apcxui flowsheetElis Cradenas PTANOMS CI PTStart: 04-10-2024 End: 09-97-4291Lanhdw flowsheetSammantha Fernandez PTNOMS CI PTStart: 04-10-2024 End: 30-55-4538Fgfczf flowsheetSammantha Fernandez PTNOMS CI PTStart: 04-10-2024 End: 59-85-7198nwvkvitcltJsktvnfmv Fernandez PTNOMS CI PTComment on above: Arthritis of knee, right (Primary Dx); Acute postoperative pain of right knee; Status post right knee replacementStart: 04-05-2024 End: 63-86-7852jyanqcajyxYgdfyovp Burtink PTANOMS CI PTComment on above:Arthritis of knee, right (Primary Dx); Acute postoperative pain of right knee; Status post right knee replacement; Difficulty walkingStart: 04-05-2024 End: 22-18-6433AvtitoPqbz Aichholz [employer] WORK[employer] Work Phone: NOFG CWM FMComment on above:Moderate persistent asthma, uncomplicated (CMS/HCC); Aura's thyroiditis (CMS/HCC); Anxiety and depression (CMS/HCC)Start: 04-03-2024 End: 66-25-0392lgpabqxoudQdiqvazxq Schneider PTNOMS CI PTComment on above: Arthritis of knee, right (Primary Dx); Acute postoperative pain of right knee; Status post right knee replacement; Difficulty walkingStart: 04-03-2024 End: 87-01-9863Opjkci flowsheetSammantdamien Fernandez PTNOMS CI PTStart: 04-03-2024 End: 14-89-4979Yjeftm flowsheetSgarreteverton Fernandez PTNOMS CI PTStart: 03-28-2024 End: 26-90-4529tytperqbbrSfwqyvn Lawrence PTANOMS CI PTComment on above: Arthritis of knee, right (Primary Dx); Acute postoperative pain of right knee; Status post right knee replacementStart: 03-28-2024 End: 28-22-4342Wobbzr flowsOdell Stephenson PTANOMS CI PTStart: 03-28-2024 End: 18-56-2014Monuww Grecia Stephenson PTANOMS CI PTStart: 03-23-2024 End: 88-46-8201Dkybtcl encounter procedureMichael T Khan DO Work Phone: noMS NB ORTHOComment on above:Aftercare following right knee joint replacement surgery (Primary Dx)Start: 03-23-2024 End: 70-66-4879kmfnbokhnbZQXDYQU T POWERSNot AvailableStart: 03-23-2024 End: 75-89-2499byygiarwsoVNSGFCP T POWERSNot AvailableStart: 03-21-2024 End: 58-64-9845pculgflqhnOOBSFPE LAWRENCENot AvailableStart: 03-21-2024 End: 34-65-9984Izlhjd Grecia Stephenson PTANOMS CI PTStart: 03-21-2024 End: 35-10-0756Iwjvrc Grecia Stephenson PTANOMS CI PTStart: 03-15-2024 End: 82-40-8490qprlfvxqwzEfomjqkwv Schneider PTNOMS CI PTComment on above: Arthritis of knee, right (Primary Dx); Acute postoperative pain of right knee; Status post right knee replacement; Difficulty walkingStart: 03-15-2024 End: 49-74-7263Andjcj Saran Fernandez PTNOMS CI PTStart: 03-15-2024 End: 12-96-5547Psduuu Saran Fernandez PTNOMS CI PTStart: 03-14-2024 End: 22-66-9279hbfvxzeflhUSRUKMalu Wang AvailableStart: 03-13-2024 End: 96-71-8548Jbxauefu SupportMariano Mcbride PT Work Phone: n[facility] SWS PTHComment on above:Arthritis of knee, right (Primary Dx); Acute postoperative pain of right knee; Status post right knee replacement; Difficulty walkingStart: 03-10-2024 End: 80-22-1144Mcanrknx SupportMariano Mcbride PT Work Phone: noms SWS PTHComment on above:Arthritis of knee, right (Primary Dx); Acute postoperative pain of right knee; Status post right knee replacement; Difficulty walkingStart: 03-07-2024 End: 79-51-4472gkaqttuftwJSWBEMalu Wang AvailableStart: 03-06-2024 End: 73-85-5617Kpmbbxca SupportMariano Mcbride PT Work Phone: noms SWS PTHComment on above:Arthritis of knee, right (Primary Dx); Acute postoperative pain of right knee; Status post right knee replacement; Difficulty walkingStart: 03-05-2024 End: 07-03-4800ytudjvgiafIDDGFMalu Wang AvailableStart: 03-02-2024 End: 54-31-1330Khitkjnr SupportMariano Mcbride PT Work Phone: noms SWS PTHComment on above:Arthritis of knee, right (Primary Dx); Acute postoperative pain of right knee; Status post right knee replacement; Difficulty walkingStart: 02-28-2024 End: 26-66-2752Gizogxno SupportMariano Mcbride PT Work Phone: noms SWS PTHComment on above:Arthritis of knee, right (Primary Dx); Acute postoperative pain of right knee; Status post right knee replacement; Difficulty walkingStart: 02-24-2024 End: 33-79-7178Uyunkbfe SupportMariano Mcbride PT Work Phone: noms SWS PTHComment on above:Arthritis of knee, right (Primary Dx); Acute postoperative pain of right knee; Status post right knee replacement; Difficulty walkingStart: 02-23-2024 End: 04-65-7354wrqamkdkcrBSNJF M DONALDSONNot AvailableStart: 02-22-2024 End: 42-83-9362Ehcmkbqe SupportMariano Mcbride PT Work Phone: noms SWS PTHComment on above:Arthritis of knee, right (Primary Dx); Acute postoperative pain of right knee; Status post right knee replacement; Difficulty walkingStart: 02-21-2024 End: 43-99-3956Luyvudjst Result EncounterMichael T Khan DO Work Phone: noms External Department UnsolicitedStart: 02-21-2024 End: 02-12-4821Zeucgufdg Result EncounterMichael T Khna DO Work Phone: noms External Department UnsolicitedStart: 02-21-2024 End: 21-67-2472Ydjcjqbbb to same day surgery centerMichael T Khan [facility] Start: 02-21-2024 End: 31-85-4144swlqqurwnxNdvxcqr T PowersFacility:FTMCStart: 02-10-2024 End: 21-47-7655Uklnbc flowsheetSammantha Fernandez PTNOMS CI PTStart: 02-10-2024 End: 34-11-5777Lmkijl flowsheetSammantha Fernandez PTNOMS CI PTStart: 02-10-2024 End: 93-85-6846pajiqawezaErkhblipg Fernandez PTNOMS CI PTComment on above: Primary osteoarthritis of right knee (Primary Dx)Start: 02-08-2024 End: 03-21-9313Tctiby flowsirisGinger Amadormarymicha [employer] Work Phone: NOMS CWM FMStart: 02-08-2024 End: 26-71-0453Oawhmr mauriceElvie Englishmarymicha [employer] Work Phone: NONH CWM FMStart: 02-08-2024 End: 48-20-6227Nqwuhx outpatient visit 25 minutesLi Percy [employer] Work Phone: NOML CWM FMComment on above:Anxiety and depression (CMS/HCC) (Primary Dx); Mild persistent asthma without complication (CMS/HCC); Gastroesophageal reflux disease, unspecified whether esophagitis present; Morbid obesity with BMI of 50.0-59.9, adult (CMS/HCC); Aura's thyroiditis (CMS/HCC); Morbid obesity due to excess calories (CMS/HCC); Moderate persistent asthma without complication (CMS/HCC); Encounter for screening mammogram for malignant neoplasm of breast; Arthritis of knee, rightStart: 02-08-2024 End: 99-77-1803QjondxKmje Aichholz [employer] Work Phone: noms CWM FMComment on above:Psoriasis (CMS/HCC) (Primary Dx)Start: 01-25-2024 End: 84-97-2267Qgahewgod Result EncounterMichael T Khan DO Work Phone: noms External Department UnsolicitedStart: 01-25-2024 End: 61-64-2559Easvhzxov Result EncounterMichael T Khan DO Work Phone: noms External Department UnsolicitedStart: 01-25-2024 End: 08-48-6415ixaxefjyjaMkuuyft T PowersFacility:FTMCStart: 01-25-2024 End: 33-27-9001Flxiauv encounter procedureMichael T Khan [facility] Start: 01-20-2024 End: 87-18-7431Cxyjfcnqj Result EncounterLisa Aichholz [employer] Work Phone: NOL[facility] External Department UnsolicitedStart: 01-20-2024 End: 68-11-3784Jiezezonm Result EncounterLisa Aichholz [employer] Work Phone: noms External Department UnsolicitedStart: 01-13-2024 End: 00-82-6040Tqhnuvd encounter procedureMichael T Khan DO Work Phone: NOMS NB ORTHOComment on above:Pre-op testing (Primary Dx)Start: 01-13-2024 End: 24-21-7587Qrgauvt encounter statusMichael T Khan DO Work Phone: NOMS HealthcareStart: 01-13-2024 End: 26-95-7951rajzpxowbmJSZCHPP T POWERSNot AvailableStart: 01-13-2024 End: 29-42-1685Kluvhu flowsheetMichael T Khan DO Work Phone: NOMS ORTHOStart: 01-13-2024 End: 14-40-7363Suyfwf flowsheetMichael T Khan DO Work Phone: NOMS ORTHOStart: 12-26-2023 End: 28-27-4871CsggqwUlrk Aichholz [employer] Work Phone: NOLJ CWM FMComment on above:Anxiety and depression (CMS/HCC); Aura's thyroiditis (CMS/HCC)Start: 12-09-2023 End: 53-41-3741Erbzpjw encounter procedureLisa Aichholz Work Phone: [facility] [address] Work Phone: Start: 12-09-2023 End: 78-03-4879hvxvhcdiraWnym J Aichholnikolas Work Phone: [facility] Work Phone: Start: 11-26-2023 End: 69-57-5444XodhtfWouk Aichmicha [employer] Work Phone: noms CWM FMComment on above:Gastroesophageal reflux disease, unspecified whether esophagitis presentStart: 11-26-2023 End: 86-94-3790rdvhyglhuyKgkkcqeoaMary [facility] Work Phone: Start: 11-26-2023 End: 62-95-9172Pvtvazb encounter [facility] Work Phone: Start: 11-09-2023 End: 08-69-8280Asmdfbedt Result EncounterLisa Amadorhholz [employer] Work Phone: noms External Department UnsolicitedStart: 11-09-2023 End: 16-82-4616Hkvaepuot Result EncounterLisa Aichholz [employer] Work Phone: noms External Department UnsolicitedStart: 11-09-2023 End: 11-66-9296Cgrdqx outpatient visit 25 minutesLisa Percy [employer] Work Phone: noms CWM FMComment on above:Aura's thyroiditis (CMS/HCC) (Primary Dx); Morbid obesity with BMI of 50.0-59.9, adult ([facility]); Psoriasis (CMS/HCC); Anxiety and depression (CMS/[facility]); Gastroesophageal reflux disease, unspecified whether esophagitis present; Moderate persistent asthma without complication ([facility]); Arthritis of knee, rightStart: 07-19-2023 End: 20-01-6612gtkybpspznRkfdgwl Vytautas Giedraitis MDFacility:PM Josef Start: 07-02-2023 End: 40-66-8945Xszucquej Result EncounterLisa Aichholz [employer] Work Phone: noms External Department UnsolicitedStart: 07-02-2023 End: 95-13-7882Jvywydayy Result EncounterLisa Aichholz [employer] Work Phone: noms External Department UnsolicitedStart: 04-22-2023 End: 71-49-5050Swepbd outpatient visit 10 minutesVivek Dickinson [employer] Work Phone: noms ORTHOPAEDICSComment on above:Primary osteoarthritis of right knee (Primary Dx); Right knee pain, unspecified chronicityStart: 66-35-0956Atnxxskna encounterLisa Aichholz [employer] Work Phone: noms CWM FMStart: 02-26-2023 End: 21-33-1936lkrhvdaxjsGqkofz Morelia Other [employer] Other Start: 77-09-1806Hiaxga outpatient visit 15 minutes Mary Jo EsquivelG [facility] ClydeStart: 05-28-2022 End: 14-46-1899gmnncwqjbeAWX ELVIE AICHHOLZFacility:Y3Ysorz: 05-06-2022 End: 04-74-2653hxdkjbabpdNRC ELVIE AICHHOLZFacility:V3Zmusn: 02-23-2022 End: 82-06-7142dtpdolrohpRLS ELVIE AICHHOLZFacility:H1 Procedures DateProcedureProcedure DetailPerforming ClinicianStart: 41-93-3370ND of abdomen and pelvis without contrastLisa Aichholz Work Phone: Start: 53-81-6766GVP THYROID STIM HORMONELisa Aichholz [employer] Work Phone: Start: 19-61-3985DAG THYROXINE (T4) FREELisa Aichholz [employer] Work Phone: Start: 16-25-2875OJ ECHO DOPPLER COMPLETELisa Aichholz [employer] Work Phone: Start: 71-14-0724TJ MINOO PERF SPECT REST STRLisa Aichholz [employer] Work Phone: Start: 86-83-8303SBL MAGNESIUMLisa Aichholz [employer] Work Phone: Start: 66-23-9493LMG THYROID STIM HORMONELisa Aichholz [employer] Work Phone: Start: 56-11-3876UAO BASIC METABOLIC PANELLisa Percy [employer] Work Phone: Start: 35-80-1112IUS MAGNESIUMLisa Percy [employer] Work Phone: Start: 56-75-3390Rpwxkbhxvp examination knee 3 views Chan Khan DO Work Phone: Start: 69-92-6008Xaepypdslnk observation [Identifier] in Cervix by Cyto stainLisa Greer [employer] Work Phone: Start: 32-79-5083ONJ CBC WITH AUTO DIFFLisa Greer [employer] Work Phone: Start: 11-00-5255XN TOMOSYNTHESIS SCREENING BICorey Andrew DO Work Phone: Start: 26-54-9546RgblpsgzbzlGmhmf Andrew DO Work Phone: Start: 92-95-1535Pvwwbxpaya examination knee 3 views Chan Isabel Khan DO Work Phone: Start: 84-15-0914MF KNEE 1 OR 2 VIEWS RIGHTMicrosalval T Khan DO Work Phone: Start: 79-22-1371Vyorf knee replacementMichael Khan Start: 57-12-4501KJ WITH CULT RFLXMichael T Khan DO Work Phone: Start: 36-25-2233JTH THYROID STIM HORMONELisa Percy [employer] Work Phone: Start: 22-45-2983FOH THYROXINE (T4) FREELisa Greer [employer] Work Phone: Start: 23-31-9734CEK THYROID STIM HORMONELisa Percy [employer] Work Phone: Start: 89-00-5074We soft tissue head & neck real time imge docmLisa Greer [employer] Work Phone: Start: 91-03-7380Upwzszgftke observation [Identifier] in Cervix by Cyto Iván Greer NP Work Phone: CholecystectomyMichael Khan History of hernia repairMichael Khan Plan of Treatment DateCare ActivityDetailAuthorStart: 90-55-2503Bcjdxlhxa for malignant neoplasm of cervixNOMS HealthcareStart: 63-28-9254Yvplefzma for malignant neoplasm of cervixNOMS HealthcareStart: 08-23-2025 End: 04-41-1823Stmmheg encounter unaqxepwc86/18/2026 9:40 AM EDT Office [facility] [address] [place] [address] Prabhakar Cordova MD [address] [place] [address] [facility] [place] AllergyStart: 06-05-2025 End: 80-71-2465Tojzahl encounter procedureNOMS BCP OBStart: 05-03-2025 End: 24-65-2297Mrzhczn encounter nxgouvjze35/26/2026 2:45 PM EST Office Visit [facility] [address] [place] [address] Bernardo Silverio DO [address] [place] [address] [facility] AssociatesStart: 04-18-2025 Screening for malignant neoplasm of breastMammogramNOMS HealthcareStart: 02-22-2025 End: 74-80-6514Jlgnlfw encounter procedureNOMS NB ORTHOStart: 01-11-2025 End: 07-13-4953Zptqddr encounter procedureNOMS CWM FMStart: 12-28-2024 End: 06-83-5652Dipwfbp encounter usjcbayqw71/23/2025 9:40 AM EDT Office Visit [facility] [place] [facility] [address] [place] [address] Prabhakar Cordova MD [address] [place] [address] SHONNAKat [facility] AllergyStart: 11-27-2024 End: 47-00-5565Rwfhdrazdnd [Units/volume] in Serum or PlasmaTSH Lab Routine Hypothyroidism, unspecified type Expected: 11/27/2024 (Approximate), Expires: 09/26/2025[facility] Work Phone: Comment on above:Expected: 11/27/2024 (Approximate), Expires: 09/26/2025Start: 11-27-2024 End: 95-09-1403Ngddghdce (T4) free [Mass/volume] in Serum or PlasmaT4, free Lab Routine Hypothyroidism, unspecified type Expected: 11/27/2024 (Approximate), Expires: 09/26/2025[facility] HealthcareComment on above:Expected: 11/27/2024 (Approximate), Expires: 09/26/2025Start: 11-16-2024 End: 11-74-1156Kvcinyj encounter procedureNOMS SWS ALLComment on above:Arrived Start: 36-66-5464QMKLA-19 Vaccine ( season)COVID-19 Vaccine ( season)[facility] HealthcareStart: 38-89-6525Qqijtxuuv vaccinationInfluenza Vaccine (#1)[facility] HealthcareStart: 10-12-2024 End: 08-55-3811SC Abdomen and Pelvis WO contrastCT abdomen pelvis wo IV contrast Imaging Routine Recurrent ventral hernia Expected: 10/12/2024, Expires: 10/12/2025[facility] Work Phone: Comment on above:Expected: 10/12/2024, Expires: 10/12/2025Start: 10-10-2024 End: 47-60-2525Epcukoa encounter procedureNOMS CWM FMComment on above:Essential hypertension (Primary Dx); Heart palpitations; Morbid (severe) obesity due to excess calories (CMS-HCC); Hypothyroidism, unspecified type ; Anxiety and depression ; HypomagnesemiaStart: 09-11-2024 End: 52-67-8663Oicpzrvpv (T4) free [Mass/volume] in Serum or PlasmaT4, free Lab Routine Hypothyroidism, unspecified type (CMS/HCC) Expected: 09/11/2024 (Approximate),Expires: 07/12/2025[facility] HealthcareComment on above:Expected: 09/11/2024 (Approximate), Expires: 07/12/2025Start: 09-11-2024 End: 29-22-5887Dxnaaiy encounter /07/2025 8:10 AM EDT Office Visit [facility] [address] [place] [address] Javier Morales, DO [address] [place] [address] NOMS BCP OBStart: 09-07-2024 End: 45-76-4345Hqnwboc encounter orcznxquy24/03/2025 11:00 AM EDT Office Visit [facility] [address] [facility] [address] [place] [address] Prabhakar Cordova MD [address] [address] NOMS SWS ALLStart: 09-04-2024 End: 76-80-4541Vbhpaswtoau [Units/volume] in Serum or PlasmaTSH Lab Routine Hypothyroidism, unspecified type (CMS/HCC) Expected: 09/04/2024 (Approximate), Expires: 07/12/2025[facility] Healthcare Work Phone: Comment on above:Expected: 09/04/2024 (Approximate), Expires: 07/12/2025Start: 08-08-2024 End: 06-39-8834Mnafdnw encounter procedureNOCHICKASAW NATION [facility] FMComment on above:Heart palpitations (Primary Dx); Ventricular arrhythmia; Gastroesophageal reflux disease, unspecified whether esophagitis present; Morbid (severe) obesity due to excess calories (CMS/HCC); Anxiety and depression (CMS/HCC)Start: 08-03-2024 End: 23-85-1718N-peptideC-peptide Lab Routine Hormone disorder Expected: 08/03/2024 (Approximate), Expires: 08/03/2025[facility] HealthcareComment on above: Expected: 08/03/2024 (Approximate), Expires: 08/03/2025Start: 08-03-2024 End: 41-28-7569Qlgfiddm freeCortisol, free Lab Routine Hormone disorder Expected: 08/03/2024 (Approximate), Expires: 08/03/2025NO HealthcareComment on above:Expected: 08/03/2024 (Approximate), Expires: 08/03/2025Start: 08-03-2024 End: 79-54-3896Mkvzcvawmjfttr 2D completeEchocardiogram 2D complete Echocardiography Routine Ventricular arrhythmia Abnormal electrocardiogram (ECG) (EKG) Expected: 08/03/2024 (Approximate), Expires: 08/03/2026 Healthcare Comment on above:Expected: 08/03/2024 (Approximate), Expires: 08/03/2026Start: 08-03-2024 End: 40-67-5447Ukahktn [Mass/volume] in Serum or PlasmaGlucose, random Lab Routine Hormone disorder Expected: 08/03/2024 (Approximate), Expires: 08/03/2025 NOMS HealthcareComment on above:Expected: 08/03/2024 (Approximate), Expires: 08/03/2025Start: 08-03-2024 End: 99-58-8132Wahfmyk, totalInsulin, total Lab Routine Hormone disorder Expected: 08/03/2024 (Approximate), Expires: 08/03/2025[facility] HealthcareComment on above:Expected: 08/03/2024 (Approximate), Expires: 08/03/2025Start: 08-03-2024 End: 58-22-7696HJ Heart Perfusion W single state of exerciseStress test with myocardial perfusion Cardiac Nuclear Medicine Routine Ventricular arrhythmia Abnormal electrocardiogram (ECG) (EKG) Expected: 08/03/2024 (Approximate), Expires: 08/03/2026[facility] Work Phone: Comment on above:Expected: 08/03/2024 (Approximate), Expires: 08/03/2026Start: 08-03-2024 End: 18-02-3443Epxjezgga serumSerotonin serum Lab Routine Hormone disorder Expected: 08/03/2024 (Approximate), Expires: 08/03/2025[facility] HealthcareComment on above:Expected: 08/03/2024 (Approximate), Expires: 08/03/2025Start: 08-03-2024 End: 83-87-6233BmhbmzybvkudcBwvhofbywwejc Lab Routine Hormone disorder Expected: 08/03/2024 (Approximate), Expires: 08/03/2025[facility] HealthcareComment on above: Expected: 08/03/2024 (Approximate), Expires: 08/03/2025Start: 08-03-2024 End: 57-20-8779Cfzcsvqejchpg AntibodyThyroglobulin Antibody Lab Routine Hormone disorder Expected: 08/03/2024 (Approximate), Expires: 08/03/2025[facility] Healthcare Comment on above:Expected: 08/03/2024 (Approximate), Expires: 08/03/2025Start: 08-03-2024 End: 83-90-4809Kyzbgdkjfvd [Units/volume] in Serum or PlasmaT4 Lab Routine Hormone disorder Expected: 08/03/2024 (Approximate), Expires: 08/03/2025[facility] HealthcareComment on above:Expected: 08/03/2024 (Approximate), Expires: 08/03/2025Start: 07-10-2024 End: 30-54-1025Fofnftkfgoq [Units/volume] in Serum or PlasmaTSH Lab Routine Hypothyroidism, unspecified type (CMS/HCC) Expected: 07/10/2024 (Approximate), Expires: 05/10/2025[facility] Work Phone: Comment on above:Expected: 07/10/2024 (Approximate), Expires: 05/10/2025Start: 07-10-2024 End: 08-15-6998Mjkxjkyyo (T4) free [Mass/volume] in Serum or PlasmaT4, free Lab Routine Hypothyroidism, unspecified type (CMS/HCC) Expected: 07/10/2024 (Approximate),Expires: 05/10/2025N[facility] HealthcareComment on above:Expected: 07/10/2024 (Approximate), Expires: 05/10/2025Start: 06-27-2024 End: 31-80-7955Aawjxrkux [Mass/volume] in Serum or PlasmaMagnesium Lab Routine Hypomagnesemia Expected: 06/27/2024 (Approximate), Expires: 06/27/2025[facility] Work Phone: Comment on above:Expected: 06/27/2024 (Approximate), Expires: 06/27/2025Start: 06-22-2024 End: 78-84-1488Pqfcpms encounter yplgexprz31/17/2025 3:45 PM EDT Office Visit [facility] [address] [facility] [place] [phone] Chan Khan DO [address] [place] [address] NOMS [facility] ORTHOStart: 06-20-2024 End: 53-97-9567Dpxbght encounter zreggacdf17/15/2025 2:40 PM EDT Office Visit [facility] [address] [place] [address] Elvie Greer, [employer] [address] [place] [address] [facility] FMStart: 06-20-2024 End: 86-47-5821Zwhbx metabolic 1998 panel - Serum or PlasmaBasic metabolic panel Lab Routine Heart palpitations Expected: 06/20/2024 (Approximate), Expires: [facility] Work Phone: Comment on above:Expected: 06/20/2024 (Approximate), Expires: 06/20/2025Start: 06-20-2024 End: 09-00-6010Wvpfwo monitor studyHolter monitor Imaging Routine Heart palpitations Expected: 06/20/2024 (Approximate), Expires: 06/20/2025NOMS HealthcareComment on above:Expected: 06/20/2024 (Approximate), Expires: 06/20/2025Start: 06-20-2024 End: 15-22-1797Xiwsmewvx [Mass/volume] in Serum or PlasmaMagnesium Lab Routine Heart palpitations Expected: 06/20/2024 (Approximate), Expires: 06/20/2025NOMS HealthcareComment on above:Expected: 06/20/2024 (Approximate), Expires: 06/20/2025Start: 05-30-2024 End: 60-40-3505Womnlio encounter ycgivokde03/25/2025 10:00 AM EDT Office Visit [facility] [address] [place] [phone] Javier Morales DO [address] [place] [address] NOMS BCP OBStart: 05-25-2024 End: 96-73-6590gizsuiwxcl88/20/2025 2:30 PM EDT Treatment [facility] [address] [facility] [address] [place] [address] Kylee Fernandez PTNOMS CI PTStart: 05-24-2024 End: 32-29-1803opitosugmi07/19/2025 4:00 PM EDT Treatment [facility] [address] [facility] [address] [place] [address] Sumeet Medrano, COOKER HELPER NOMS CI PTStart: 05-23-2024 End: 37-13-4911ejjpjkihwg87/18/2025 2:30 PM EDT Treatment [facility] [address] [facility] [address] [place] [address] Kylee Fernandez PTNOMS CI PTStart: 05-22-2024 End: 81-45-8926vdavolcowf59/17/2025 4:00 PM EDT Treatment [facility] [address] [facility] [address] [place] [address] Sumeet Medrano, COOKER HELPER NOMS CI PTStart: 05-18-2024 End: 27-02-3057ewqfqvtawl97/13/2025 1:30 PM EDT Treatment [facility] [address] [facility] [address] [place] [address] Kylee Fernandez, PTNOMS CI PTStart: 05-17-2024 End: 94-40-9101utgjfrdewi90/12/2025 4:00 PM EDT Treatment [facility] [address] [facility] [address] [place] [address] Sumeet Medrano, COOKER HELPER [facility]OMS CI PTStart: 05-16-2024 End: 74-44-7131zbnxwwilcd08/11/2025 2:30 PM EDT Treatment [facility] [address] [facility] [address] [place] [address] Kylee Fernandez, PTNOMS CI PTStart: 05-15-2024 End: 13-02-6508oalbbnsikz41/10/2025 4:00 PM EDT Treatment [facility] [address] [facility] [address] [place] [address] Sumeet Medrano, COOKER HELPER [facility]OMS CI PTStart: 05-10-2024 End: 55-98-1472rwxhufxamfEMDC CI PTStart: 05-09-2024 End: 05-45-2678KGW W Auto Differential panel - BloodCBC and differential Lab Routine Mild persistent asthma without complication (CMS/HCC) 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) Expected: 05/09/2024 (Approximate), Expires: 05/09/2025[facility] [employer] Work Phone: Comment on above:Expected: 05/09/2024 (Approximate), Expires: 05/09/2025Start: 05-09-2024 End: 72-38-5184Swemgdcrbtfhm metabolic 2000 panel - Serum or PlasmaComprehensive metabolic panel Lab Routine Morbid (severe) obesity due to excess calories (CMS/HCC) Gastroesophageal reflux disease, unspecified whether esophagitis present 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) Anxiety and depression (CMS/HCC) Hypomagnesemia Elevated glucose Expected: 05/09/2024 (Approximate), Expires: 05/09/2025[facility] HealthcareComment on above:Expected: 05/09/2024 (Approximate), Expires: 05/09/2025Start: 05-09-2024 End: 98-43-3155Mzsvbmvnvg A1c/Hemoglobin.total in BloodHemoglobin A1c Lab Routine Elevated glucose Expected: 05/09/2024 (Approximate), Expires: 05/09/2025 [facility] HealthcareComment on above:Expected: 05/09/2024 (Approximate), Expires: 05/09/2025Start: 05-09-2024 End: 17-73-3452Nypxw 1996 panel - Serum or PlasmaLipid panel Lab Routine Morbid (severe) obesity due to excess calories (CMS/HCC) Expected: 05/09/2024 (Approximate), Expires: 05/09/2025[facility] HealthcareComment on above:Expected: 05/09/2024 (Approximate), Expires: 05/09/2025Start: 05-09-2024 End: 82-86-5834Gmehyojxf [Mass/volume] in Serum or PlasmaMagnesium Lab Routine Hypomagnesemia Expected: 05/09/2024 (Approximate), Expires: 05/09/2025[facility] HealthcareComment on above:Expected: 05/09/2024 (Approximate), Expires: 05/09/2025Start: 05-09-2024 End: 80-58-3969Drtjgtooxda [Units/volume] in Serum or PlasmaTSH Lab Routine 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) Expected: 05/09/2024 (Approximate), Expires: 05/09/2025[facility] HealthcareComment on above:Expected: 05/09/2024 (Approximate), Expires: 05/09/2025Start: 05-09-2024 End: 12-58-6098Ivlvqxigz (T4) free [Mass/volume] in Serum or PlasmaT4, free Lab Routine 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) Expected: 05/09/2024 (Approximate), Expires: 05/09/2025[facility] HealthcareComment on above: Expected: 05/09/2024 (Approximate), Expires: 05/09/2025Start: 05-09-2024 End: 60-21-4344Bwzfysn encounter ssfigmtik52/04/2025 8:40 AM EST Office Visit [facility] [address] [place] [address] Elvie Greer NP [address] [place] [address] [facility] CWM FMStart: 05-08-2024 End: 32-63-3851fpntflgmlyCRAX CI PTComment on above:ArrivedStart: 05-03-2024 End: 00-27-5483dbugweanmkMZCI CI PTComment on above:ArrivedStart: 05-01-2024 End: 08-24-3516cmhlnphetsIISZ CI PTComment on above:ArrivedStart: 04-26-2024 End: 89-51-2807kznmbwtwbaFQPP CI PTComment on above:Acute postoperative pain of right knee (Primary Dx); Status post right knee replacement; Difficulty walkingStart: 04-24-2024 End: 39-91-8922Vsmfnkqqa to same day surgery rxvjjm0104/24/2024 4:00 PM EST Treatment [facility] [address] [facility] [address] [place] [address] Kylee Fernandez, MADHAVI Acute postoperative pain of right knee (Primary Dx); Status post right knee replacement; Difficulty walking; Aftercare following right knee joint replacement surgery; Arthritis of knee, rightNOMS CI PTComment on above:Acute postoperative pain of right knee (Primary Dx); Status post right knee replacement; Difficulty walking; Aftercare following right knee joint replacement surgery; Arthritis of knee, rightStart: 04-21-2024 End: 27-17-0699mxjkjcegwh57/14/2025 2:30 PM EST Treatment [facility] [address] [facility] [address] [place] [address] Sumeet Medrano PTA [facility] CI PTStart: 04-19-2024 End: 50-70-1789occogydvshBSYZ CI PTStart: 04-17-2024 End: 66-30-7733pequhsdfanFBTA CI PTStart: 04-14-2024 End: 26-05-1506dfonbiteth20/07/2025 2:00 PM EST Treatment [facility] CI PT [address] [facility] [address] [place] [address] Baldomero Stephenson, PTANOMS CI PTStart: 04-12-2024 End: 98-88-7247lebkwtxrkeJXQW CI PTComment on above:ArrivedStart: 04-10-2024 End: 42-27-4308yurhxrvqhq36/03/2025 5:00 PM EST Treatment [facility] CI PT [address] [facility] [address] [place] [address] Kylee Fernandez, PTNOMS CI PTStart: 04-05-2024 End: 54-07-0318yvcpdyeclx58/29/2025 5:00 PM EST Treatment [facility] CI PT [address] [facility] [address] [place] [address] Sumeet Medrano, COOKER HELPER NOMS CI PTStart: 04-03-2024 End: 76-70-4908inlpzybslfLFUZ CI PTComment on above:Arthritis of knee, right (Primary Dx); Acute postoperative pain of right knee; Status post right knee replacement; Difficulty walkingStart: 03-28-2024 End: 41-76-4380kzpocrucfoOBJR CI PTComment on above:ArrivedStart: 03-23-2024 End: 40-88-3263Xtiqixe encounter aaznwajpd49/16/2025 3:00 PM EST Office Visit [facility] [address] [place] [address] Chan Khan, [address] [place] [address] NOM[facility] NB ORTHOStart: 03-21-2024 End: 10-26-2417hmggralwtvIIRI CI PTComment on above:Arthritis of knee, right (Primary Dx)Start: 03-15-2024 End: 32-68-4297xznukckczr97/08/2025 5:00 PM EST Treatment [facility] CI PT [address] [place] [address] [place] [phone] Kylee Fernandez PTNOMS CI PTStart: 02-10-2024 End: 42-75-9345rkxtmjkotwTSXX CI PTComment on above:Primary osteoarthritis of right kneeStart: 02-08-2024 End: 47-06-8791Qrqwuml encounter procedureNOMS CWM FMComment on above:Mild persistent asthma without complication (CMS/HCC) (Primary Dx); Gastroesophageal reflux disease, unspecified whether esophagitis present; Morbid obesity with BMI of 50.0-59.9, adult (CMS/HCC); Aura's thyroiditis (CMS/HCC); Morbid obesity due to excess calories (CMS/HCC); Anxiety and depression (CMS/HCC); Moderate persistent asthma without complication (CMS/HCC); Encounter for screening mammogram for malignant neoplasm of breastStart: 01-25-2024 End: 73-17-4843Lhppcucswj complete panel - UrineUrinalysis with reflex microscopic Lab Routine Pre-op testing Expected: 01/25/2024, Expires: 01/12/2025 [facility] Work Phone: Comment on above:Expected: 01/25/2024, Expires: 01/12/2025Start: 01-13-2024 End: 11-25-5469Pwrpayf encounter tyvsypptt07/07/2024 3:15 PM EST Office Visit [facility] [address] [place] [address] Chan Khan DO [address] [place] [address] ArrivedNOMS TESSIE ORTHOComment on above:ArrivedStart: 01-06-2024 Influenza vaccinationInfluenza Vaccine (#1)NOMS HealthcareComment on above: Postponed from 11/07/2023 (Patient Refused)Start: 00-41-0673Tujgzxelb for malignant neoplasm of breastMammogramNOMS HealthcareStart: 11-09-2023 End: 42-10-4403Qoqpnfo encounter ivryfbtik40/03/2024 2:00 PM EDT Office Visit [facility] CWM FM [address] [place] [phone] Elvie Greer, FLYING SQU[employer] WORKER [address] [place] [phone] [facility] CWM FMStart: 11-09-2023 End: 91-37-2544Aludhftighj [Units/volume] in Serum or PlasmaTSH Lab Routine Aura's thyroiditis (CMS/HCC) Expected: 11/09/2023 (Approximate), Expires: 11/08/2024[facility] Work Phone: Comment on above:Expected: 11/09/2023 (Approximate), Expires: 11/08/2024Start: 11-09-2023 End: 99-81-6568Etpldmmqn (T4) free [Mass/volume] in Serum or PlasmaT4, free Lab Routine Aura's thyroiditis (CMS/HCC) Expected: 11/09/2023 (Approximate), Expires:11/08/2024[facility] HealthcareComment on above:Expected: 11/09/2023 (Approximate), Expires: 11/08/2024Start: 05-27-2023 End: 34-59-3960Gptqoae encounter ciywhgnte58/21/2024 10:00 AM EDT Office Visit [facility] OB [address] [place] [phone] Javier Morales DO [address] [place] [address] NOMS BCP OBStart: 05-18-2023 End: 94-48-7840Wjlrvrw encounter ztoztbega27/12/2024 9:20 AM EDT Office Visit [facility] C[facility] FM [address] [place] [phone] Elvie Greer, FLYING SQUAD WORKER [address] [place] [address] [facility] FMStart: 04-22-2023 End: 98-51-5987Ssnleaa encounter /15/2024 10:15 AM EST Office Visit [facility] [address] [place] [phone] Vivek Dickinson, FLYING SQUAD WORKER [address] [place], [place] [phone] N[facility] FB ORTHOPAEDICSStart: 45-88-5802Vcjbkrqoa for malignant neoplasm of cervixNOMS HealthcareStart: 75-93-7875LWV Vaccines (1 - 3-dose SCDM series)HPV Vaccines (1 - 3-dose SCDM series)[facility] HealthcareStart: 38-48-2517Gsqbnpuhi for malignant neoplasm of cervixPap SmearNOMS HealthcareStart: 50-87-2866Zhxngwzer B Vaccines (1 of 3 - 19+ 3-dose series)Hepatitis B Vaccines (1 of 3 - 19+ 3-dose series)NOM HealthcareStart: 92-19-6726Yhswnkxjrgpz Vaccine: Pediatrics (0 to 5 Years) and At-Risk Patients (6 to 64 Years) (1 of 2 - PCV)Pneumococcal Vaccine: Pediatrics (0 to 5 Years) and At-Risk Patients (6 to 64 Years) (1 of 2 - PCV) [facility] HealthcareStart: 66-17-8192Rzyqnyn of varicella vaccinationVaricella Vaccines (1 of - 13+ 2-dose series)[facility] HealthcareStart: 11-18-1990 DTaP/Tdap/Td Vaccines (1 - Tdap)DTaP/Tdap/Td Vaccines (1 - Tdap)[facility] Start: 65-48-3862EYW Vaccines (1 of 1 - Standard series)MMR Vaccines (1 of 1 - Standard series)[facility] HospitalCcikazgpxlYALK-rnxupqsOMUV-ifwmntd Lab Routine Hormone disorder Ordered: 08/03/2024[facility] HealthcareComment on above:Ordered: 08/03/2024 EstradiolEstradiol Lab Routine Hormone disorder Ordered: 08/03/2024[facility] Work Phone: comment on above:Ordered: 08/03/2024EstroneEstrone Lab Routine Hormone disorder Ordered: 08/03/2024[facility] HealthcareComment on above: Ordered: 08/03/2024Ferritin [Mass/volume] in Serum or PlasmaFerritin Lab Routine Hormone disorder Ordered: 08/03/2024[facility] HealthcareComment on above:Ordered: 08/03/2024Hemoglobin A1c/Hemoglobin.total in BloodHemoglobin A1c Lab Routine Hormone disorder Ordered: 08/03/2024[facility] HealthcareComment on above:Ordered: 08/03/2024ProgesteroneProgesterone Lab Routine Hormone disorder Ordered: 08/03/2024[facility] HealthcareComment on above:Ordered: 08/03/2024Sex hormone binding globulinSex hormone binding globulin Lab Routine Hormone disorder Ordered: 08/03/2024[facility] HealthcareComment on above:Ordered: 08/03/2024T3, reverseT3, reverse Lab Routine Hormone disorder Ordered: 08/03/2024[facility] HealthcareComment on above:Ordered: 08/03/2024TESTOSTERONE, FREETESTOSTERONE, FREE Lab Routine Hormone disorder Ordered: 08/03/2024[facility] HealthcareComment on above:Ordered: 08/03/2024Testosterone, free, totalTestosterone, free, total Lab Routine Hormone disorder Ordered: 08/03/2024[facility] HealthcareComment on above:Ordered: 08/03/2024 THIN PREP TIS PAP AND HR HPV DNATHIN PREP TIS PAP AND HR HPV DNA Pathology and Cytology Routine Well woman exam with routine gynecological exam Ordered: 05/30/2024[facility] Work Phone: comment on above:Ordered: 05/30/2024Thyroid peroxidase antibodyThyroid peroxidase antibody Lab Routine Hormone disorder Ordered: 08/03/2024[facility] HealthcareComment on above:Ordered: 08/03/2024Triiodothyronine (T3) Free [Mass/volume] in Serum or PlasmaT3, free Lab Routine Hormone disorder Ordered: 08/03/2024[facility] HealthcareComment on above:Ordered: 08/03/2024Vitamin D 1,25 dihydroxyVitamin D 1,25 dihydroxy Lab Routine Hormone disorder Ordered: 08/03/2024[facility] HealthcareComment on above:Ordered: 08/03/2024[facility] Immunizations Immunization DateImmunizationNotesCare VqmwteumMnzohjqe30-01-3944vxodeayjr, seasonal, injectable, preservative freeLisa Aichholz FLYING SQUAD WORKER Work Phone: [facility] HospitalJtpocnhohn75-63-1352jxcoxdlxx virus vaccine, unspecified formulationLisa Aichholz FLYING SQUAD WORKER Work Phone: [facility] HospitalTnuyuuujjl69-37-4775njzqztofj, injectable, quadrivalent, preservative freeLisa Aichholz FLYING SQUAD WORKER Work Phone: [facility] HospitalUojwgsuikq48-65-8775ikpjpitia virus vaccine, unspecified formulationLisa Aichholz FLYING SQUAD WORKER Work Phone: [facility] Payers DatePayer CategoryPayerPolicy [id number] [id number] 1.2.840.464705.1.13.693.2.7.3.733[id number] 2.840.1.691553.3.57[id number] 2.840.1.430836.3.57[id number] 2.840.1.632080.3.57[id number] 2.16.840.1.927407.3.57[id number] 2.16.840.1.598975.3.579.[id number] 2.16.840.1.262571.3.57[id number] 2.16840.1.842798.3.579.[id number] 2.16.840.1.763016.3.579.2.[id number] 2.16.840.1.567056.3.579.2.072565-57-0697Ejvrpoh79479554 2.16.840.1.285171.3.579.2.048326-99-7690Tvvvamn57230127 2.16.840.1.613437.3.579.2.401435-29-2964Dvvrjjv01643376 2.16.840.1.585563.3.57[id number] 2.16.840.1.294094.3.579.2.918665-89-2470Eyfslyk49870152 2..840.1.971687.3.579.2.799492-47-4895Xivsgin57897772 2.16.840.1.150847.3.579.2.992791-53-8780Kzbwmye3273097 2.16.840.1.640227.3.579.2.817601-86-0547Nlknqtz7692241 2.16.840.1.070975.3.579.2.455272-93-3855Mnbudfw6128026 2.16.840.1.936140.3.579.2.559003-15-5730Eitbdcd6835992 2.16.840.1.133536.3.579.2.607508-85-3940Xrhwuii5785512 2.16.840.1.422423.3.579.2.245233-33-6509Rubefru5464777 2.16.840.1.369070.3.579.2.682911-58-1067Ebspinz8960430 2.840.1.829803.3.579.2.129594-91-0287Gbirrlf9348948 2.840.1.301777.3.579.2.922329-61-7622Safzsia2677295 2.840.1.515568.3.579.2.685649-80-0866Bumjjlx5603764 2.0.1.484096.3.579.2.675564-15-0277Uzspxxv5488353 2..1.111026.3.579.2.873275-76-9747Pvnzuld7266209 2.840.1.349163.3.579.2.201100-49-5252Pkdpyri6345165 2.0.1.748039.3.579.2.192371-05-8582Ntrazpc8304343 2.0.1.411369.3.579.2.797124-93-3693Qxkdmkm9134527 2..1.284453.3.579.2.926566-68-1949Cjgiarb0473491 2..1.407544.3.579.2.249904-36-7102Rsgdhsb4390535 2..1.521130.3.579.2.384162-98-3232Xitgnia6254231 2.840.1.281126.3.579.2.136920-97-8252Nglshvo7654107 2.0.1.018396.3.579.2.648362-15-8535Psdiaqa1572739 2.840.1.927762.3.579.2.850554-60-7220Mndhqth4076002 2.840.1.518588.3.579.2.726982-35-8707Ooiwwgc3529508 2.840.1.065558.3.579.2.839915-61-4238Lletvtw6119392 2.16.840.1.929371.3.579.2.019488-27-4956Gyaedqo2558007 2.840.1.099082.3.579.2.627683-92-1604Yyxqueb4723223 2.840.1.668309.3.579.2.357326-85-1204Gqvvcvv1981143 2.0.1.881724.3.579.2.292403-73-7150Zhvrojq8869296 2.840.1.991402.3.579.2.664808-75-4103Dggvqey9437509 2..1.990400.3.579.2.084274-09-9118Lodxwxp0437951 2.0.1.228344.3.579.2.759242-88-0248Egwncnm6334621 2.840.1.068715.3.579.2.058799-69-0648Qkezxlz3194104 2..1.947985.3.579.2.992940-74-6828Whpzbei5251771 2..1.316424.3.579.2.050966-92-3597Adqlome688148807955Sgjoevd97681458 2..1.739395.3.579.2.393Ucdwflz86418635 2.0.1.174808.3.579.2.531 Social History DateTypeDetailFacilityStart: 04-06-2023 End: 10-81-1166Spe Assigned At BirthNOIN HealthcareStart: 04-01-2023 End: 14-05-2822Tuxubhj smoking status NHISNever smoked tobaccoNOIN Healthcare Work Phone: Start: 59-93-9200Bsdpuze use and exposureSmokeless tobacco non-userNOMS HealthcareStart: 04-13-2023 End: 95-71-1596Qrsnviy intakeLifetime non-drinker (finding)[facility] HealthcareStart: 04-06-2023 End: 96-12-8048Bghvhhw of Social functionNOMS HealthcareWithin the last year, have you been afraid of your partner or ex-partner?NoNOMS HealthcareDo you belong to any clubs or organizations such as faith groups, unions, fraSRE [place] - 2 or athletic groups, or school groups?YesNOMS HealthcareAre you now , , , , never or living with a partner?MarriedNOMS HealthcareHow often to you have a drink containing alcohol?NeverN[facility]S [facility] Start: 31-52-2671Agd many standard drinks containing alcohol do you have on a typical day?Patient does not drinkNOMS HealthcareDo you feel stress - tense, restless, nervous, or anxious, or unable to sleep at night because yourmind is troubled all the time - these days [OSQ]Very muchNOMS Healthcare(I/We) worried whether (my/our) food would run out before (I/we) got money to buy more.DK or RefusedNOMS HealthcareStart: 51-36-1911Mip Assigned At BirthNot on fileNOMS HealthcareStart: 27-46-9111Bjutuc identityIdentifies as female gender (finding) [facility] HealthcareStart: 25-05-6918Aoq Assigned At BirthFeOhio Valley HospitalTobacco smoking statusNo Smoking Status [facility] SexFemale (finding)[facility] Medical Equipment Procedure CodeEquipment CodeEquipment Original TextEquipment IdentifierDatesKNEE TOTAL ARTHROPLASTY Chan Khan DO 02/21/24 Unknown Knee RFDAStart: 51-12-4553DDPS TOTAL ARTHROPLASTY Chan Khan DO 02/21/24 Unknown Knee R FDAStart: 03-60-0701YZBT TOTAL ARTHROPLASTY Chan Khan DO 02/21/24 Unknown Knee RFDAStart: 46-23-7981MLMC TOTAL ARTHROPLASTY Chan Khan DO 02/21/24 Unknown Knee RFDAStart: 25-30-2186HYDO TOTAL ARTHROPLASTY Chan Khan DO 02/21/24 Unknown Knee RFDAStart: 02-21-2024 Functional Status UbbhUglhxhoujwSvlbyfQvzxltfd98-98-7700Eunysotwge StatusMed[facility]06-25-2024Patient Health Questionnaire 2 item (PHQ-2) [Reported][facility] Clinical Notes 02-26-2023 to 12-28-2024 Note Date & IzqgJzexWxazrtpg55-08-8291 History of Present illness Narrative* Prabhakar Cordova MD - 12/28/2024 9:40 AM EDT Wilmer Navarro returns to the office today. She notes that she has been doing well. Trelegy is very helpful. She likes this one a lot. Asthma control test today is 22. She feels that her sinus symptoms are doing well also. She feels she has allergic rhinoconjunctivitis symptoms all year long. Albuterol azelastine nasal spray Symbicort famotidine nasal ipratropium montelukast nasacort Skin testing positive for cat dust mite mold spores pollen Trelegy is VERY helpful The patient appears comfortable in the office [...] clear of any rashes, lesions, or ulceration/excoriation. IMPRESSION: Moderate persistent asthma - continue Trelegy and avoidance measures as she is getting great benefit from this - albuterol PRN Allergic rhinoconjunctivitis - continue azelastine nasal spray nasal ipratropium. We discussed the risks and benefits of allergen immunotherapy and agreed to defer on this at the current time. Follow-up was arranged in August as this tends to be a difficult time of year for her. documented in this encounterHannibal Regional HospitalWtcyqjutui45-69-9120 NoteBellevue Office [facility] Note Reason for cardiology visit: F/U on Palpitation, V. tach, shortness of breath HPI: 11/30/2024 Patient is here today for follow-up visit. She reports that the palpitation has been better after she was started on Toprol-XL however she noticed worsening of her wheezes and shortness of breath during the night after she takes Toprol-XL in the evening. Also her toggler recommended to stop beta eduarda due to worsening asthma on it. Other than that she denies any chest pain, orthopnea or paroxysmal nocturnal dyspnea, dizziness, or legs edema 09/15/2024 Wilmer Navarro is a 39 y.o. female without prior cardiac history. 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 Tach, however I looked at the (more content not included)...[facility]09-11-2025 History of Present illness Narrative* Prabhakar Cordova MD - 11/16/2024 11:00 AM EDT Wilmer Navarro returns to the office today [...] follow-up in 1-2 months. documented in this encounterHannibal Regional HospitalFhhiisfdto25-65-6657 History of Present illness Narrative* Bernardo Silverio, DO - 10/31/2024 3:15 PM EDT Images from the original note [...] inhaler 2 puffs, Inhalation, 2 times daily, [place] with water after use to reduce aftertaste [...] Morbid obesity with BMI of 50.0-59.9, adult ([facility] 04/13/2023 Umbilical hernia Social History Tobacco Use [...] small hernia. There maybe several other small Thai cheese type defects based on CT scan. [...] infection. As she is minimally symptomatic best wouldbe to wait until she is continued to improve her weight and decrease her risk. She is completely onboard with that. She is very motivated to continue losing weight and does not want to do anything that might change her current regimen. She would like to see me again in 6 months and if she is worsening or having more problems I can see her earlier for sooner repair. documented in this encounterHannibal Regional HospitalFrnnolyiry54-74-0924 Radiology Diagnostic study [facility] [place] [address] [place] [address] CT Scan Report Signed Patient: Wilmer Navarro MR#: [id number] : 1985 Acct:[id number] Age/Sex: 38 / F ADM Date: 5 Loc: CT Room: Type: [facility] Attending Dr: Bernardo Silverio DO Copies to: Bernardo Silverio DO~ Ordering Provider: Bernardo Silverio DO Date of Service: 10/19/24 CT/CT abdomen pelvis wo con: recurrent ventral hernia CT ABDOMEN AND PELVIS WITHOUT INTRAVENOUS CONTRAST: CLINICAL HISTORY: Recurring ventral hernia. Abdominal pain. COMPARISON: None TECHNIQUE: Spiral images were obtained through the abdomen and pelvis without intravenous contrast.This CT exam was performed using one or [...] Jr., DGabrielOGabriel 10/19/2024 1:11 PM Dictation Location: [place] [address] Transcribed By: [facility] 10/19/24 1311 Dictated By: Mau Chou Jr, DO 10/19/24 1309 Signed By: 10/19/[address] [facility]08-07-2025 History of Present illness Narrative * Bernardo Silverio, - 10/12/2024 3:45 PM EDT Images from the original note were not included. Wilmer K Deaemilia 1985 Wilmer Irvinemilia is a 38 y.o. female presents with chief complaint of Consult (Ventral hernia) HPI: HPI patient says that she had 2 umbilical hernia repairs previously, she had a umbilical hernia repair she believes with mesh when she had her gallbladder out remotely and then she had a recurrent umbilical hernia repair with mesh with Dr. Beckman at [place] in 2011. She had no problems with [...] has not having any acute incarceration. She lostweight from 326 lb down to 280. She [...] inhaler 2 puffs, Inhalation, 2 times daily, [place] with water after use to reduce aftertaste [...] Medical History: Diagnosis Date Anxiety Arthritis Asthma ([facility]) Borderline abnormal thyroid function test COVID-19 virus detected Depression Aura's disease Morbid obesity with BMI of 50.0-59.9, adult ([facility]) 04/13/2023 Umbilical hernia Social History Tobacco Use [...] time of surgery. I will see her backwith results documented in this encounterHannibal Regional HospitalHmauatpxch24-73-1344 History of Present illness Narrative* SILVER JAIMES - 10/10/2024 2:00 PM EDT Pt is still having increase BP 149/90s [...] not feel comfortable going back to him. * Elvie Greer NP - 10/10/2024 2:00 PM EDT Images from the original note [...] inhaler 2 puffs, Inhalation, 2 times daily, [place] with water after use to reduce aftertaste [...] pain. Negative for blood in stool, constipation, diarrhea,nausea and vomiting. Genitourinary: Negative for difficulty urinating, [...] Medical History: Diagnosis Date Anxiety Arthritis Asthma ([facility]) Borderline abnormal thyroid function test COVID-19 virus detected Depression Aura's disease Morbid obesity with BMI of 50.0-59.9, adult ([facility]) 04/13/2023 Umbilical hernia Past Surgical History: Procedure Laterality Date GALLBLADDER SURGERY Laparoscopic HERNIA REPAIR Umbilical KNEE ARTHROPLASTY Right 02/21/2024 MTP MENISCECTOMY Right 02/28/2020 Dr Garcia OTHER SURGICAL HISTORY 2009 Procedure:NUBAIN & PHENERGAN;Disease:ACUTE CHOLEYCYSTITIS TONSILLECTOMY 05/11/2007 and Adenoidectomy family history includes ADD / ADHD in her brother; Asthma in her father, mother, and sister; Cancerin an other family member; Diabetes in her [...] Morbid (severe) obesity due to excess calories ([facility]) Discussed with patient their BMI (actual, verses [...] dose change in 09/29 Heart palpitations Saw [facility] on 09/15/24, started on b eduarda I have reviewed their notes Essential hypertension - Primary Please check blood pressure daily and record DASH diet Limit caffeine Take medication as directed Contact office if chest pain, pressure, dizziness, shortness of breath, swelling legs Recommend slow position changes Current meds: b eduarda Other Visit Diagnoses Moderate persistent asthma without complication ([facility]) Relevant Medications budesonide-formoterol (Symbicort) 160-4.5 MCG/ACT inhaler montelukast (Singulair) 10 MG tablet * Elvie Greer NP - 10/10/2024 7:01 AM EDTAssociated Problem(s): Hypomagnesemia On magnesium daily Check labs yearly, and prn dose changes or changes in sxs * Elvie Greer NP - 10/10/2024 7:00 AM EDTAssociated Problem(s): Anxiety and depression Current meds: wellbutrin and uses prn vistaril * Elvie Greer NP - 10/10/2024 7:00 AM EDTAssociated Problem(s): Hypothyroid Current med: levothyroxine Check labs yearly, and prn changes in dose or changes in symptoms Had recent dose change in 09/29 * Elvie Greer NP - 10/10/2024 7:00 AM EDTAssociated Problem(s): Morbid (severe) obesity due to excess calories ([facility]) Discussed with patient their BMI (actual, verses recommended). We have also discussed lifestyle modifications: attempts to perform physical activity as chronic conditions allow, also to monitor dietary intake: increasing protein/fruits/veggies and lowering carb intake (unless contraindicated). Limit sodas, juices, and sugary drinks. Was at 326 in 10/29 * Elvie Greer NP - 10/10/2024 7:00 AM EDTAssociated Problem(s): Heart palpitations Saw [facility] on 09/15/24, started on b eduarda I have reviewed their notes * Elvie Greer NP - 10/10/2024 6:59 AM EDTAssociated Problem(s): Essential hypertension Please check blood pressure daily and record DASH diet Limit caffeine Take medication as directed Contact office if chest pain, pressure, dizziness, shortness of breath, swelling legs Recommend slow position changes Current meds: b eduarda documented in this encounterHannibal Regional [id number] NoteBellevue Office Cardiology Clinic Note Reason for cardiology consult: Palpitation, V. tach, shortness of breath Chief Complaint: Shortness of breath and palpitation HPI: Wilmer Navarro is a 38 y.o. female without prior cardiac history. 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 (more content not included)...[facility] 09-11-2024 History of Present illness Narrative* Cherry Amezcua, JONN - 09/11/2024 8:10 AM EDT Reason for Appointment: Patient ID: Wilmer Navarro is a 38 y.o. female who presents for No chief complaint on file. Patient presents today via telephone call for a telehealth appointment. Patients Phone #: [phone] (mobile) Date: 09/11/2024 Time: 10:41 AM of [...] 04/01/2023 Body mass index (BMI) 45.0-49.9, adult ([facility]) 04/13/2023 Ventral hernia without obstruction or gangrene 08/31/2023 Mild persistent asthma without complication ([facility]) 02/08/2024 Morbid (severe) obesity due to excess calories ([facility]) 02/08/2024 Encounter for screening mammogram for malignant neoplasm of breast 02/08/2024 Status post right knee replacement 02/22/2024 Difficulty walking 02/22/2024 Hypothyroid 05/09/2024 Other constipation 05/09/2024 Heart palpitations 06/20/2024 Ventricular arrhythmia 08/03/2024 Environmental and seasonal allergies 08/08/2024 Resolved Ambulatory Problems Diagnosis Date Noted Internal derangement of right knee 04/01/2023 History of knee problem 03/27/2020 Borderline abnormal thyroid function test 04/01/2023 Intermittent asthma without complication ([facility]) 04/01/2023 Moderate persistent asthma without complication ([facility]) 04/01/2023 Umbilical hernia 04/01/2023 Acute medial meniscal tear 04/01/2023 Abnormal TSH 05/18/2023 Non-recurrent acute suppurative otitis media of left ear without spontaneous rupture of tympanic membrane 05/18/2023 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/29/2023 Cellulitis 08/31/2023 Past Medical History: Diagnosis Date Anxiety Arthritis Asthma ([facility]) COVID-19 virus detected Depression Aura's disease Morbid obesity with BMI of 50.0-59.9, [place] [place] 04/13/2023 Family History Problem Relation Name Age of Onset Asthma Mother Susy jasmin Diabetes Mother Susy britt Osteoarthritis Mother Susy jasmin Asthma Father Zeferino Britt Asthma Sister Ana Guptamickeyharris ADD / ADHD Brother Cancer Other grandmother [...] of: Javier Morales DO documented in this encounterHannibal Regional [id number] History of Present illness Narrative* Prabhakar Cordova MD - 09/07/2024 11:00 AM EDT Wilmer Navarro is a very pleasant 38 [...] round. 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 She feels pollen is [...] sooner should problems arise. documented in this encounterHannibal Regional [id number] History of Present illness Narrative* Elvie Greer NP - 08/08/2024 2:59 PM EDTAssociated Problem(s): Environmental and seasonal allergies Sxs not controlled w antihistamines and nasal steroids Used to take allergy injections in the past Will refer to toggler for evaluation * SILVER JAIMES - 08/08/2024 2:20 PM EDT ENT referral for allergies [facility] is not helping * Elvie Greer NP - 08/08/2024 2:20 PM EDT Images from the original note [...] inhaler 2 puffs, Inhalation, 2 times daily, [place] with water after use to reduce aftertaste [...] thyroid function test COVID-19 virus detected Depression ([facility]) 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[facility]) Morbid obesity with BMI of 50.0-59.9, adult ([facility]) 04/13/2023 Umbilical hernia Past Surgical History: Procedure Laterality Date GALLBLADDER SURGERY Laparoscopic HERNIA REPAIR Umbilical KNEE ARTHROPLASTY Right 02/21/2024 MTP MENISCECTOMY Right 02/28/2020 Dr Garcia OTHER SURGICAL HISTORY 2009 Procedure:NUBAIN & PHENERGAN;Disease:ACUTE CHOLEYCYSTITIS TONSILLECTOMY 05/11/2007 and Adenoidectomy family history includes ADD / ADHD in her brother; Asthma in her father, mother, and sister; Cancerin an other family member; Diabetes in her [...] injections in the past Will refer to toggler for evaluation Relevant Orders Ambulatory referral to Allergy * Elvie Greer NP - 08/08/2024 6:59 AM EDTAssociated Problem(s): Anxiety and depression (CMS/HCC) Current meds: wellbutrin and uses prn vistaril * Elvei Greer NP - 08/08/2024 6:59 AM EDTAssociated Problem(s): Morbid (severe) obesity due to excess calories (CMS/HCC) Discussed with patient their BMI (actual, verses recommended). We have also discussed lifestyle modifications: attempts to perform physical activity as chronic conditions allow, also to monitor dietary intake: increasing protein/fruits/veggies and lowering carb intake (unless contraindicated). Limit sodas, juices, and sugary drinks. Was at 326 in 10/29 * Elvie Greer NP - 08/08/2024 6:58 AM EDTAssociated Problem(s): GERD (gastroesophageal reflux disease) Continue with PPI Recommendations: freq small meals, nothing to eat or drink at least 2 hours prior to bed, limit caffeine, alcohol, as well as spicy foods Meds to limit or avoid if possible: NSAIDS Elevate HOB if possible Current med: pantoprazole, famotidine * Elvie Greer NP - 08/08/2024 6:58 AM EDTAssociated Problem(s): Ventricular arrhythmia Noted on holter Check stress test and ECHO Send to cardiology * Elvie Greer NP - 08/08/2024 6:58 AM EDTAssociated Problem(s): Heart palpitations Reviewed holter Will check stress test and ECHO and refer to cardiology documented in this encounterHannibal Regional [id number] Instructions* Patient Instructions* Elvie Greer NP - 08/08/2024 2:20 PM EDT I will place referral to toggler: dr Prabhakar Almonte with [facility] in [facility], their office should call if no call in 10 days call me documented in this encounterHannibal Regional [id number] History of Present illness Narrative* Fadia Santiago LPN - 08/03/2024 11:40 AM EDT Reason for Appointment: Patient ID: Wilmer Navarro is a 38 y.o. female who presents for hormones Patient presents today for Consult appointment. MEDICATIONS Current Outpatient Medications Medication Instructions albuterol HFA 90 mcg/act inhaler 2 puffs, Inhalation, Every 6 hours PRN budesonide-formoterol (Symbicort) 160-4.5 MCG/ACT inhaler 2 puffs, Inhalation, 2 times daily, [place] with water after use to reduce aftertaste [...] 04/01/2023 Body mass index (BMI) 45.0-49.9, adult (CMS/HCC) 04/13/2023 Ventral hernia without obstruction or gangrene 08/31/2023 Mild persistent asthma without complication (CMS/HCC) 02/08/2024 Morbid (severe) obesity due to excess calories (CMS/HCC) 02/08/2024 Encounter for screening mammogram for malignant neoplasm of breast 02/08/2024 Status post right knee replacement 02/22/2024 Difficulty walking 02/22/2024 Hypothyroid (CMS/HCC) 05/09/2024 Other constipation 05/09/2024 Heart palpitations 06/20/2024 Resolved Ambulatory Problems Diagnosis Date Noted Internal derangement of right knee 04/01/2023 History of knee problem 03/27/2020 Borderline abnormal thyroid function test 04/01/2023 Intermittent asthma without complication (CMS/HCC) 04/01/2023 Moderate persistent asthma without complication (CMS/HCC) 04/01/2023 Umbilical hernia 04/01/2023 Acute medial meniscal tear 04/01/2023 Abnormal TSH 05/18/2023 Non-recurrent acute suppurative otitis media of left ear without spontaneous rupture of tympanic membrane 05/18/2023 Aura's thyroiditis ([facility]) 06/29/2023 Cellulitis 08/31/2023 Past Medical History: Diagnosis Date Anxiety Arthritis Asthma COVID-19 virus detected Depression ([facility]) 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[facility]) Morbid obesity with BMI of 50.0-59.9, adult ([facility]) 04/13/2023 HISTORY PAST MEDICAL HISTORY SOCIAL HISTORY Past Medical History: Diagnosis Date Anxiety Arthritis Asthma Borderline abnormal thyroid function test COVID-19 virus detected Depression ([facility]) 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 Exam conducted with a hair mixer present. Vitals: Estimated body mass index is [...] needed, but provider with reach out to [facility] and see if all labs are needed or just certain labs based on patient previous complaints. Did discuss medication with patient but she is currently taking Wellbutrin and Vistaril through PCP. Patient is aware that provider will reach out to discuss plan of care once symptoms are reviewed with [facility] CoGabriel atkins to return to clinic for routine annual appointment and as needed. Documented by Fadia Santiago LPN on behalf of: Isa Machado PA-C documented in this encounterHannibal Regional [id number] History of Present illness Narrative* Chan Khan DO - 06/22/2024 3:45 PM EDT Post op right TKA annual visit: The [...] exercise, weight management and fall precautions reviewed. intermediate designer antibiotic prophylaxis for dental or invasive work were reviewed. Numerous questions were answered. Follow-up in February at year anniversary, for repeat xray and exam, sooner if concerned. The patient is discharged in stable condition. documented in this encounterHannibal Regional [id number] History of Present illness Narrative* Elvie Greer NP - 06/20/2024 3:44 PM EDTAssociated Problem(s): Hypomagnesemia Check magnesium * Elvie Greer NP - 06/20/2024 3:43 PM EDTAssociated Problem(s): Heart palpitations Check labs: basic and mg Holter 7 days * SILVER JAIMES - 06/20/2024 2:40 PM EDT Pt sees dr khan on . Pt [...] Pt has been doing it since 05/13/24 * Elvie Greer, JONN - 06/20/2024 2:40 PM EDT Images from the original [...] to 4 weeks ago. The problem occurs constantly.The problem has been waxing and waning. Nothing [...] inhaler 2 puffs, Inhalation, 2 times daily, [place] with water after use to reduce aftertaste [...] Morbid obesity with BMI of 50.0-59.9, adult ([facility]) 04/13/2023 Umbilical hernia Past Surgical History: Procedure [...] Orders Basic metabolic panel Magnesium Holter monitor * Elvie Greer NP - 06/20/2024 7:11 AM EDTAssociated Problem(s): Morbid (severe) obesity due to excess calories (CMS/HCC) Discussed with patient their BMI (actual, verses recommended). We have also discussed lifestyle modifications: attempts to perform physical activity as chronic conditions allow, also to monitor dietary intake: increasing protein/fruits/veggies and lowering carb intake (unless contraindicated). Limit sodas, juices, and sugary drinks. Was at 326 in 10/29 * Elvie Greer NP - 06/20/2024 7:11 AM EDTAssociated Problem(s): Other constipation At last appt, we recommended: Water 64 oz daily, miralax, high fiber foods, and stool softener * Elvie Greer NP - 06/20/2024 7:10 AM EDTAssociated Problem(s): GERD (gastroesophageal reflux disease) Continue with PPI Recommendations: freq small meals, nothing to eat or drink at least 2 hours prior to bed, limit caffeine, alcohol, as well as spicy foods Meds to limit or avoid if possible: NSAIDS Elevate HOB if possible Current med: pantoprazole, famotidine documented in this [facility]04-15-2025 Instructions* Patient Instructions* Elvie Greer NP - 06/20/2024 2:40 PM EDT Check labs and holter documented in this [facility]03-25-2025 History of Present illness Narrative* Coty Chaidez LPN - 05/30/2024 10:00 AM EDT Reason for Appointment: Patient ID: Wilmer Navarro is a 38 y.o. female who presents for Well Women Visit Patient presents today for Annual Exam. MEDICATIONS Current Outpatient Medications Medication Instructions albuterol HFA 90 mcg/act inhaler 2 puffs, Inhalation, Every 6 hours PRN budesonide-formoterol (Symbicort) 160-4.5 MCG/ACT inhaler 2 puffs, Inhalation, 2 times daily, [place] with water after use to reduce aftertaste [...] of knee, right 04/01/2023 Anxiety and depression ([facility]) 04/01/2023 Elevated glucose 04/01/2023 GERD (gastroesophageal reflux disease) 04/01/2023 Hair loss 04/01/2023 Hypomagnesemia 04/01/2023 Leg cramps 04/01/2023 Liver function abnormality 04/01/2023 Painful lumpy right breast 04/01/2023 Psoriasis ([facility]) 04/01/2023 Acute postoperative pain of right knee 04/01/2023 Body mass index (BMI) 45.0-49.9, adult ([facility]) 04/13/2023 Ventral hernia without obstruction or gangrene 08/31/2023 Mild persistent asthma without complication ([facility]) 02/08/2024 Morbid (severe) obesity due to excess calories ([facility]) 02/08/2024 Encounter for screening mammogram for malignant neoplasm of breast 02/08/2024 Status post right knee replacement 02/22/2024 Difficulty walking 02/22/2024 Hypothyroid ([facility]) 05/09/2024 Other constipation 05/09/2024 Resolved Ambulatory Problems Diagnosis Date Noted Internal derangement of right knee 04/01/2023 History of knee problem 03/27/2020 Borderline abnormal thyroid function test 04/01/2023 Intermittent asthma without complication ([facility]) 04/01/2023 Moderate persistent asthma without complication ([facility]) 04/01/2023 Umbilical hernia 04/01/2023 Acute medial meniscal tear 04/01/2023 Abnormal TSH 05/18/2023 Non-recurrent acute suppurative otitis media of left ear without spontaneous rupture of tympanic membrane 05/18/2023 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[facility]) 06/29/2023 Cellulitis 08/31/2023 Past Medical History: Diagnosis Date Arthritis COVID-19 virus detected Depression ([facility]) 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[facility]) Morbid obesity with BMI of 50.0-59.9, adult [place] [place] 04/13/2023 HISTORY PAST MEDICAL HISTORY SOCIAL HISTORY Past Medical History: Diagnosis Date Arthritis Borderline abnormal thyroid function test COVID-19 virus detected Depression ([facility]) 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 Exam conducted with a hair mixer present. Vitals: Estimated body mass index is [...] of: Javier Morales DO documented in this [facility]03-05-2025 History of Present illness Narrative* Elvie Greer NP - 05/10/2024 7:52 PM ESTAssociated Problem(s): Hypomagnesemia Takes PPI, recommend periodic monitoring documented in this [facility]03-05-2025 History of Present illness Narrative* Kylee Fernandez PT - 05/10/2024 3:30 PM EST Images from the original note were not [...] strips placed. Incision healing with no concerns; opento air. Special tests: Negative Yosef Sign. Treatment: [...] and dynamic balancing activity using various surfaces, singleleg, tandem to improve R LE proprioception, balance [...] to be instructed in home exercise program. Cdc Associate Goals: To be met in 10 weeks [...] Please sign below. Date: documented in this [facility]03-04-2025 History of Present illness Narrative* Elvie Greer NP - 05/09/2024 9:08 AM ESTAssociated Problem(s): Other constipation Water 64 oz daily Add miralax and stool softener Higher fiber foods Fu in 6 weeks to see if better * Elvie Greer NP - 05/09/2024 8:40 AM EST Wilmer Navarro is a 38 y.o. female [...] worthlessness, memory impairment, nervousness/anxiety, palpitations, shortness of breath,suicidal ideas, suicidal planning, weight gain and weight [...] difficulty breathing, hoarse voice, shortness of breath, sputumproduction or wheezing. This is a chronic problem. The current episode started more than 1 year ago. The problem occurs intermittently. The problem has been unchanged. Pertinent negatives include no a ppetite change, chest pain, ear pain, fever, headaches, myalgias, postnasal drip, rhinorrhea, sneezing, sore throat or weight loss. Her symptoms are aggravated by nothing. Her symptoms are alleviatedby beta-agonist, leukotriene antagonist and steroid inhaler. She reports significant improvement ontreatment. There are no known risk factors for lung disease. Her past medical history is significant for asthma. Constipation This is a new problem. The current episode started more than 1 month ago. The problem has been gradually worsening since onset. Stool frequency: 1-2 times per week. The stool is described as firm andformed. The patient is not on a high [...] inhaler 2 puffs, Inhalation, 2 times daily, [place] with water after use to reduce aftertaste [...] Negative for abdominal pain, blood in stool, diarrhea,dysphagia, hematochezia, hemorrhoids, nausea and vomiting. 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[facility]) Morbid obesity with BMI of 50.0-59.9, adult ([facility]) 04/13/2023 Umbilical hernia Past Surgical History: Procedure [...] Items Addressed This Visit Anxiety and depression ([facility]) Current meds: wellbutrin and uses prn vistaril [...] Magnesium Body mass index (BMI) 45.0-49.9, adult ([facility]) Mild persistent asthma without complication ([facility]) - Primary Symbicort for maintenance, signulair, as well as albuterol prn Relevant Orders CBC and differential Morbid (severe) obesity due to excess calories ([facility]) Discussed with patient their BMI (actual, verses [...] Medications triamcinolone (Nasacort) 55 MCG/ACT nasal inhaler * Elvie Greer NP - 05/09/2024 6:09 AM ESTAssociated Problem(s): Hypomagnesemia Takes PPI, recommend periodic monitoring * Elvie Greer NP - 05/09/2024 6:08 AM ESTAssociated Problem(s): Elevated glucose In the past, will check a1c * Elvie Greer NP - 05/09/2024 6:07 AM ESTAssociated Problem(s): Anxiety and depression (CMS/HCC) Current meds: wellbutrin and uses prn vistaril PHQ 9=6 SONYA 7=6 No change in meds * Elvie Greer NP - 05/09/2024 6:06 AM ESTAssociated Problem(s): Morbid (severe) obesity due to excess [...] KETO diet, does report she feels better * Elvie Greer NP - 05/09/2024 6:06 AM ESTAssociated Problem(s): Hypothyroid (CMS/HCC) Current med: levothyroxine Check labs yearly, and prn changes in dose or changes in symptoms * Elvie Greer NP - 05/09/2024 6:05 AM ESTAssociated Problem(s): GERD (gastroesophageal reflux disease) Continue with PPI Recommendations: freq small meals, nothing to eat or drink at least 2 hours prior to bed, limit caffeine, alcohol, as well as spicy foods Meds to limit or avoid if possible: NSAIDS Elevate HOB if possible Current med: pantoprazole, famotidine * Elvie Greer NP - 05/09/2024 6:05 AM ESTAssociated Problem(s): Mild persistent asthma without complication (CMS/HCC) Symbicort for maintenance, signulair, as well as albuterol prn documented in this [facility]03-04-2025 Instructions* Patient Instructions* Elvie Greer NP - 05/09/2024 8:40 AM [...] flashes: talk with andrew documented in this [facility]03-03-2025 History of Present illness Narrative* Kylee Fernandez, PT - 05/08/2024 3:00 PM EST Images from the original note were not [...] strips placed. Incision healing with no concerns; opento air. Special tests: Negative Yosef Sign. Treatment: [...] and dynamic balancing activity using various surfaces, singleleg, tandem to improve R LE proprioception, balance [...] to be instructed in home exercise program. Cdc Associate Goals: To be met in 10 weeks [...] Please sign below. Date: documented in this encounterHannibal Regional [id number] History of Present illness Narrative* Kylee Fernandez, PT - 05/03/2024 2:00 PM EST Images from the original note were not [...] 54 minutes Time In: 1345 Time Out: [id number] History: Underwent surgery for right TKA 02/20/25. [...] strips placed. Incision healing with no concerns; opento air. Special tests: Negative Yosef Sign. Treatment: [...] and dynamic balancing activity using various surfaces, singleleg, tandem to improve R LE proprioception, balance [...] to be instructed in home exercise program. Cdc Associate Goals: To be met in 10 weeks [...] Please sign below. Date: documented in this encounterHannibal Regional [id number] History of Present illness Narrative* Kylee Fernandez PT - 05/01/2024 11:00 AM EST Images from the original note were not [...] strips placed. Incision healing with no concerns; opento air. Special tests: Negative Yosef Sign. Treatment: [...] and dynamic balancing activity using various surfaces, singleleg, tandem to improve R LE proprioception, balance [...] to be instructed in home exercise program. Fdc Goals: To be met in 10 weeks [...] Please sign below. Date: documented in this encounterHannibal Regional [id number] History of Present illness Narrative* Kylee Fernandez PT - 04/24/2024 4:00 PM EST Physical Therapy Treatment Visit Patient Name: Wilmer [...] strips placed. Incision healing with no concerns; opento air. Special tests: Negative Yosef Sign. Treatment: Manual Therapy: Passive ROM, Joint mobilization, Soft Tissue Mobilization, Myofascial Release, Muscle Energy Technique Therapeutic Exercise: (27 minutes) guided pt through ther and flex ex per grid to improve L LE quadstrength, functional mobility and gait Bike (10 minutes unsupervised) set to hills level 6 seat to 10 Therapeutic Activity: (20 minutes) Exercises to improve dynamic activities, functional tasks, functional mobility to return to prior activity level as needed Neuromuscular re-education: () Static and dynamic balancing activity using various surfaces, singleleg, tandem to improve R LE proprioception, balance [...] to be instructed in home exercise program. Cdc Associate Goals: To be met in 10 weeks [...] Please sign below. Date: documented in this encounterHannibal Regional [id number] History of Present illness Narrative* Kylee Fernandez, PT - 04/10/2024 11:00 AM EST Images from the original note were not [...] strips placed. Incision healing with no concerns; opento air. Special tests: Negative Yosef Sign. Treatment: Education: HEP education with demonstration, Educated on Eval Findings and POC Manual Therapy: Passive ROM, Joint mobilization, Soft Tissue Mobilization, Myofascial Release, Muscle Energy Technique, Neural Mobilization, Myofascial Cupping, Dry Needling, IASTM, and Scar mobilization as needed. Therapeutic Exercise: (28 minutes) Strength, Endurance, Flexibility, ROM, HEP, Neural Mobilization,Power, and Core Stability as needed. Pt performed exercises per grid this to work on ROM and strength of [...] to be instructed in home exercise program. Cdc Associate Goals: To be met in 10 weeks [...] Please sign below. Date: documented in this encounterHannibal Regional [id number] History of Present illness Narrative* Kylee Fernandez PT - 04/03/2024 4:00 PM EST Images from the original note were not [...] strips placed. Incision healing with no concerns; opento air. Special tests: Negative Yosef Sign. Treatment: Education: HEP education with demonstration, Educated on Eval Findings and POC Manual Therapy: Passive ROM, Joint mobilization, Soft Tissue Mobilization, Myofascial Release, Muscle Energy Technique, Neural Mobilization, Myofascial Cupping, Dry Needling, IASTM, and Scar mobilization as needed. Therapeutic Exercise: (30 minutes) Strength, Endurance, Flexibility, ROM, HEP, Neural Mobilization,Power, and Core Stability as needed. Pt performed [...] Min compensation noted with ascending 6in step. Willcontinue to progress as pt tolerates. Outcome Measure: Lower Extremity Functional Scale (LEFS): 31/80 on 03/15/24 Rehab Diagnosis: right knee pain and weakness; decrease ROM and mobility; difficulty walking Short Term Goal: To be met in 2 weeks Goal 1: Pt to be instructed in home exercise program. Cdc Associate Goals: To be met in 10 weeks [...] Please sign below. Date: documented in this encounterHannibal Regional [id number] History of Present illness Narrative* Chan Khan, - 03/23/2024 3:00 PM EST Post op right TKA 1st visit: The [...] home exercise program as well as physical therapymodalities. Physical therapy reports are reviewed. Physical Exam: [...] three months for repeat x-ray and exam. intermediate designer antibiotic prophylaxis for dental or invasive work were reviewed. Numerous questions were answered. The patient is discharged in stable condition. documented in this encounterHannibal Regional [id number] History of Present illness Narrative* Mariano Mcbride, PT - 03/13/2024 11:00 AM EST Physical Therapy Physical Therapy Daily visit Patient [...] out: 11:20 am Total time: 20 minutes [id number] gait training x 20 minutes Precautions: WBAT Right LE; Right TKA protocol; Recent left TKA Pain Management: The patient is complaining of pain located in the Righ knee and thigh region. Painrating 2/10. The pain is improved by ice [...] strips placed. Incision healing with no concerns; opento air. Special tests: Negative Yosef Sign. Functional [...] AD with supervision, step to gait pattern. Fdc Goals Goal 1 : Patient will demonstrate [...] to transition to [facility]. documented in this encounterHannibal Regional [id number] History of Present illness Narrative* Mariano Mcbride, PT - 03/10/2024 1:00 PM EST Physical Therapy Physical Therapy Daily visit Patient [...] out: 1:30 pm Total time: 30 minutes 60773 TherEx x 20 minutes 36789 gait training x 10 minutes Precautions: WBAT Right LE; Right TKA protocol; Recent left TKA Pain Management: The patient is complaining of pain located in the Righ knee and thigh region. Painrating 2/10. The pain is improved by ice [...] knee flexion/extension: 3-/5. Palpation: Minimal warmth upon palpation,consistent with post-operative conditions. Surgical incision intact with Mepilex dressing which wasremoved and changed on 03/02/24. Incision intact with [...] a smooth motion = 1. Balance Score: 10/21. Indication of gait: No hesitancy = 1. [...] marches, hip abduction, mii squats, ham curls andstanding SLR.. Completed 3 x 3 reps of AAROM LAQ. Completed standing knee flexion on stool with gentle rocking and holds to assist with flexion stretching, 10x. Added static knee extension on chair x5 minutes. HEP updated and instructed. Gait Training: [...] AD with supervision, step to gait pattern. Fdc Goals Goal 1 : Patient will demonstrate [...] continue icing and elevating. documented in this encounterHannibal Regional [id number] History of Present illness Narrative* Mariano Mcbride, PT - 03/06/2024 12:00 PM EST Physical Therapy Physical Therapy Daily visit Patient [...] out: 12:38 pm Total time: 38 minutes 47381 TherEx x 30 minutes 77275 gait training x 10 minutes Precautions: WBAT Right LE; Right TKA protocol; Recent left TKA Pain Management: The patient is complaining of pain located in the Righ knee and thigh region. Painrating 4/10. The pain is improved by ice and medication 1 every 6 hours of [place]. The pain is aggravated by activity. The [...] knee flexion/extension: 3-/5. Palpation: Minimal warmth upon palpation,consistent with post-operative conditions. Surgical incision intact with Mepilex dressing which wasremoved and changed on 03/02/24. Incision intact with [...] a smooth motion = 1. Balance Score: 10/21. Indication of gait: No hesitancy = 1. [...] marches, hip abduction, mii squats, ham curls andstanding SLR.. Completed 3 x 3 reps of AAROM LAQ. Completed standing knee flexion on stool with gentle rocking and holds to assist with flexion stretching, 10x. Added static knee extension on chair x5 minutes. HEP updated and instructed. 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 Assessment Impairments: abnormal gait, abnormal or restricted [...] AD with supervision, step to gait pattern. Cdc Associate Goals Goal 1 : Patient will demonstrate [...] continue icing and elevating. documented in this encounterHannibal Regional [id number] History of Present illness Narrative* Mariano Mcbride, PT - 03/02/2024 1:30 PM EST Physical Therapy Physical Therapy Daily visit Patient [...] out: 2:00 pm Total time: 40 minutes 63944 TherEx x 30 minutes 46568 gait training x 10 minutes Precautions: WBAT Right LE; Right TKA protocol; Recent left TKA Pain Management: The patient is complaining of pain located in the Righ knee and thigh region. Painrating /10. The pain is improved by ice and medication 1 every 6 hours of [place]. The pain is aggravated by activity. The [...] knee flexion/extension: 3-/5. Palpation: Minimal warmth upon palpation,consistent with post-operative conditions. Surgical incision intact with Mepilex dressing which wasremoved this date. Incision intact with shaunna. with [...] a smooth motion = 1. Balance Score: /16. Indication of gait: No hesitancy = 1. [...] marches, hip abduction, mii squats, ham curls andstanding SLR.. Completed 3 x 3 reps of AAROM LAQ. Completed standing knee flexion on stool with gentle rocking and holds to assist with flexion stretching, 10x. Added static knee extension on chair x5 minutes. HEP updated and instructed. Gait Training: [...] AD with supervision, step to gait pattern. Cdc Associate Goals Goal 1 : Patient will demonstrate [...] continue icing and elevating. documented in this encounterHannibal Regional [id number] History of Present illness Narrative* Mariano Mcbride PT - 02/28/2024 10:00 AM EST Physical Therapy Physical Therapy Daily visit Patient [...] out: 10:37 am Total time: 38 minutes 24945 TherEx x 30 minutes 76627 gait training x 8 minutes Precautions: WBAT Right LE; Right TKA protocol; Recent left TKA Pain Management: The patient is complaining of pain located in the Righ knee and thigh region. Painrating 4/10. The pain is improved by ice and medication 1-2 every 4 hours of [place]. The pain is aggravated by activity. The [...] knee flexion/extension: 3-/5. Palpation: Minimal warmth upon palpation,consistent with post-operative conditions. Surgical incision intact with [...] marches, hip abduction, mii squats, ham curls andstanding SLR.. Completed 3 x 3 reps of AAROM LAQ. Added standing knee flexion on stool with gentle rocking and holds to assist with flexion stretching, 10x. HEP updated and instructed. Gait Training: Gait training this date with FWW with instruction for step to gait pattern for rightaffective LE with increase cues for heel to [...] AD with supervision, step to gait pattern. Fdc Goals Goal 1 : Patient will demonstrate [...] continue icing and elevating. documented in this encounterHannibal Regional HospitalBjpxogbesp13-25-3717 History of Present illness Narrative* Mariano Mcbride, PT - 02/24/2024 10:30 AM EST Physical Therapy Physical Therapy Daily visit Patient [...] out: 11:00 am Total time: 30 minutes 66866 TherEx x 15 minutes 39367 gait training x 15 minutes Precautions: WBAT Right LE; Right TKA protocol; Recent left TKA Pain Management: The patient is complaining of pain located in the Righ knee and thigh region. Painrating 4/10. The pain is improved by ice and medication 1 every 4 hours of [place]. The pain is aggravated by activity. The [...] knee flexion/extension: 3-/5. Palpation: Minimal warmth upon palpation,consistent with post-operative conditions. Surgical incision intact with [...] instruction for step to gait pattern for rightaffective LE with increase cues for heel to [...] AD with supervision, step to gait pattern. Fdc Goals Goal 1 : Patient will demonstrate [...] continue icing and elevating. documented in this encounterHannibal Regional [id number] NoteProgress Note-Physician Patient: WILMER NAVARRO Age: 38 years [...] bradycardia in PACU after dose of hydromorphone. HRin lower 30's with low BP and patient feeling faint. Patient given Atropine 0.4mg IV from crash cart. Immediate improvement of symptoms and HR greater than 50. Pt stable will monitor.. Transfer/Discharge Discharge when meets criteria ( To home ).[facility] HospitalComment on above:Result Comment: Electronically Signed By: Paul Gupta Jr, DO\.br\Date and Time Signed: 02/23/24 09:53 [id number] Note Progress Note-Physician Patient: WILMER NAVARRO Age: 38 [...] list: All Problems Hypothyroid / SNOMED CT 42114160 / Confirmed Depression / SNOMED CT 79530381 / Confirmed Resolved: Syncope / SNOMED CT 547244860 Resolved: GERD - Gastro-esophageal reflux disease / SNOMED CT 9139894322 Resolved: Asthma / SNOMED CT 301657471 Histories Procedure history: History of hernia repair (0867977461). History of hernia repair (6234537243). Cholecystectomy (09562945). Social History Social & Psychosocial Habits Alcohol 01/25/2024 Risk Assessment: Denies Alcohol Use Substance Abuse 01/25/2024 Risk Assessment: Denies Substance Abuse Tobacco 01/25/2024 Risk Assessment: Denies Tobacco Use . Physical Examination Airway: Mallampati classification: II (soft palate, fauces, uvula visible). Respiratory: adequate air exchange. Cardiovascular: Regular rhythm. Plan [place] [employer] Anesthesiologists (ASA) physical status classification: Class IV. Anesthetic Preoperative Plan: Anesthesia General.[facility] Comment on above:Result Comment: Electronically Signed By: Paul Gupta Jr, DO\.burt\Date and Time Signed: 02/23/24 09:49 [id number] History of Present illness Narrative* Mariano Mcbride, PT - 02/22/2024 10:30 AM EST Physical Therapy Physical Therapy Evaluation Patient Name: Wilmer Navarro Today's Date: 02/22/2024 Subjective Current Problem: s/p right TKA with pain and difficulty walking. Pt is being seen today for initialevaluation for s/p right TKA. Pt complained of some light headiness prior to session but none occurred during therapy session. Date of Surgery: 02/21/2024 with same day discharge Current deficits: Difficulty with all mobility secondary to recent right TKA and pain. Visit Number 1. Time In: 10:30 am; Time out: 11:15 am Total time: 45 minutes 13051 PT Eval x 20 minutes 97831 TherEx x 15 minutes 34001 gait training x 10 minutes Precautions: WBAT Right LE; Right TKA protocol; Recent left TKA Pain Management: The patient is complaining of pain located in the Righ knee and thigh region. Painrating /. The pain is improved by ice and [...] knee flexion/extension: 3-/5. Palpation: Minimal warmth upon palpation,consistent with post-operative conditions. Surgical incision intact with [...] instruction for step to gait pattern for rightaffective LE with increase cues for heel to [...] AD with supervision, step to gait pattern. Cdc Associate Goals Goal 1 : Patient will demonstrate [...] mobility to achieve PLOF. documented in this encounterHannibal Regional HospitalKamarssezu17-89-3114 Hospital Discharge instructions Patient Education 02/21/2024 12:52:37 [...] as possible. If the spirometer includes a basketball coach indicator, use this to guide you in breathing. Slow down your breathing if the indicator goes above the marked areas. 7.Remove the mouthpiece from your mouth and breathe out normally. The piston or ball will return tothe bottom of the chamber. 8.Rest for a [...] cough up bloody mucus, or blood comes fromyour incision when you cough. This information is not intended to replace advice given to you by your health care provider. Make sure you discuss any questions you have with your health care provider. Document Revised: 05/13/2020 Document Reviewed: 05/13/2020 Elsevier Patient Education 2023 E96. 02/21/2024 12:52:35 Knee Cryocuff Patient Instructions - FT (CUSTOM) 02/21/2024 12:52:33 Post Op Patient Instructions - FT (Custom) (CUSTOM) 02/16/2024 15:42:30 Khan - Total Knee Arthroplasty (CUSTOM) [place], [place] [facility] DISCHARGE INSTRUCTIONS TOTAL KNEE ARTHROPLASTY INCISION CARE: Mepilex dressing can get wet with showers. Please remove 10 days after surgery per instruction sheet. If shaunna present, please coordinate removal 21 days after surgery with office staff. Please notify the office if any increase in redness, tenderness, drainage, fever, or wound separation is notedbeyond this point. MEDICATIONS: You may resume your [...] continue to use the pain medication every fourhours as needed. Any narcotic pain medication can [...] a walker or crutches initially. Assistive devices canbe weaned or modified with physical therapy Physical therapy as begun in the hospital will continue at home, possible with the assistant executive housekeeper of Home Health Physical Therapy or in the hospital as an outpatient. When you have become independent withthe physical therapy program, this will then be discontinued as a supervised program and you will be instructed to continue the physical therapy exercises at home. Your exercises are palacio to successful rehabilitation. You should gain full extension first, hopefully before hospital discharge, then continue to do the exercises to maintain this, and gain 90 degreesflexion by one month post-op. Do the exercises daily, twice if preferred. DRIVING: Please do not drive for 4-6 weeks pending therapy progress. Driving too soon, you are considered animpaired dinkey driver, and this could be a problem. It is therefore advised not to drive until after yourfirst office visit following surgery FOLLOW-UP OFFICE VISIT: Chan Khan, DO [facility] [address] [place] [id number] Reviewed: 08 Follow Up Care 01/13/2024 16:25:51 With:HARRIS Villarreal Address: [address] [place] [phone] Business (1) When:03/23/2024 15:00:00 Comments:Keep scheduled appointment [facility] 12-16-2024 NotePatient Education - Text Pulmonary Medicine How to [...] pain medicine before doing incentive spirometry. It isharder to take a deep breath if you [...] mouth, causing the piston or the ball torise toward the top of the chamber. 6. Hold your breath for 3?5 seconds, or for as long as possible. ??? If the spirometer includes a basketball coach indicator, use this to guide [...] Reviewed: 05/13/2020 Elsevier Patient Education ? 2023 E96. [place], [place] [facility] DISCHARGE INSTRUCTIONS TOTAL KNEE ARTHROPLASTY INCISION CARE: Mepilex dressing can get wet with showers. Please remove 10 days after surgery per instruction sheet. If shaunna present, please coordinate removal 21 days after surgery with office (more content notincluded)...[facility]12-11-2024 NotePatient Education - Text [place], [place] [facility] DISCHARGE INSTRUCTIONS TOTAL KNEE ARTHROPLASTY INCISION CARE: Mepilex dressing can get wet with showers. Please remove 10 days after surgery per instruction sheet. If shaunna present, please coordinate removal 21 days after surgery with office staff. Please notify the office if any increase in redness, tenderness, drainage, fever, or wound separation is notedbeyond this point. MEDICATIONS: You may resume your [...] continue to use the pain medication every fourhours as needed. Any narcotic pain medication can [...] a walker or crutches initially. Assistive devices canbe weaned or modified with physical therapy Physical therapy as begun in the hospital will continue at home, possible with the assistant executive housekeeper of Home Health Physical Therapy or in the hospital as an outpatient. When you have become independent withthe physical therapy program, this will then be discontinued as a supervised program and you will be instructed to continue the physical therapy exercises at home. Your exercises are palacio to successful rehabilitation. You should gain full extension first, hopefully before hospital discharge, then continue to do the exercises to maintain this, and gain 90 degreesflexion by one month post-op. Do the exercises daily, twice if preferred. DRIVING: Please do not drive for 4-6 weeks pending therapy progress. Driving too soon, you are considered animpaired dinkey driver, and this could be a problem. It is therefore advised not to drive until after yourfirst office visit following surgery FOLLOW-UP OFFICE VISIT: Chan Khan, DO [facility] [address] [place] [id number] Reviewed: 06-13[facility]12-[facility] History of Present illness Narrative* Elvie Greer NP - 02/08/2024 8:57 AM ESTAssociated Problem(s): Psoriasis (CMS/HCC) Needs refill of triamcinolone 0.1% ointment, also saw Rheumatology, considering treatment in the future documented in this encounterHannibal Regional HospitalGqtmdwzheq04-43-9184 History of Present illness Narrative* Elvie Greer NP - 02/08/2024 8:50 AM ESTAssociated Problem(s): Encounter for screening mammogram for malignant neoplasm of breast Is already scheduled for 2024 * Elvie Greer NP - 02/08/2024 8:48 AM ESTAssociated Problem(s): Arthritis of knee, right Is scheduled for TKA right knee, 02/21/24 * SILVER JAIMES - 02/08/2024 8:40 AM EST Pt is having surgery on with dr khan. Pt would not like any more refills after her last refill coming up on the nasal spray and inhaler * Elvie Greer NP - 02/08/2024 8:40 AM EST Images from the original note were not [...] inhaler 2 puffs, Inhalation, 2 times daily, [place] with water after use to reduce aftertaste [...] change, chills, fatigue, fever, irritability, weight gain andweight loss. HENT: Negative for congestion, ear pain, [...] COVID-19 virus detected Depression (CMS/HCC) 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CMS/[facility]) Morbid obesity with BMI of 50.0-59.9, adult ([facility]) 04/13/2023 Umbilical hernia Past Surgical History: Procedure [...] MCG/ACT inhaler montelukast (Singulair) 10 MG tablet * Elvie Greer NP - 02/08/2024 6:16 AM ESTAssociated Problem(s): Anxiety and depression (CMS/HCC) Currently taking buproprion XL, vistaril prn No changes in doses of meds * Elvie Greer NP - 02/08/2024 6:15 AM ESTAssociated Problem(s): Aura's thyroiditis (CMS/HCC) Currently taking levo at 75mcg daily Labs yearly and as needed based on change in symptoms or change med dose * Elvie Greer NP - 02/08/2024 6:15 AM ESTAssociated Problem(s): Morbid obesity due to excess calories [...] KETO diet, does report she feels better * Elvie Greer NP - 02/08/2024 6:14 AM ESTAssociated Problem(s): GERD (gastroesophageal reflux disease) Continue with PPI Recommendations: freq small meals, nothing to eat or drink at least 2 hours prior to bed, limit caffeine, alcohol, as well as spicy foods Meds to limit or avoid if possible: NSAIDS Elevate HOB if possible Continue with weight loss * Elvie Greer NP - 02/08/2024 6:14 AM ESTAssociated Problem(s): Mild persistent asthma without complication (CMS/HCC) Symbicort for maintenance, signulair, as well as albuterol prn Is UTD on flu shot as well documented in this [facility]12-03-2024 Instructions* Patient Instructions* Elvie Greer NP - 02/08/2024 8:40 AM EST Continue with weight loss journey you are doing great!!! No dose changes in meds No labs due at this time documented in this [facility]11-07-2024 History of Present illness Narrative* Brooke Holtoney - 01/13/2024 3:15 PM EST Images from the original note were not included. GENERAL HISTORY AND PHYSICAL: NAME: Wilmer Navarro : 1985 CHIEF COMPLAINT: Right knee pain and swelling, requesting total knee replacement. HISTORY OF PRESENT ILLNESS: Wilmer is here as a 38-year-old female with end stage degenerative changes to the right knee. She is bone on bone to the medial and patellofemoral joint. Wilmer is here,seen multiple providers for her right knee. She does have a known history of psoriasis. She has tried Meloxicam. No Celebrex. She has tried ibuprofen, Tylenol, Aleve. She has tried bracing, physical therapy as well as aquatics. She had cortisone injections with minimal relief. She had Visco supplementation a couple of months ago with a provider in [place]. She was instructed on weight loss. She states she also has an abdominal hernia that they will not fix because of her BMI of 54 as well. Shehas no fever or chills, no arthralgias or myalgias. She does get buckling and giving out. Her spouse is present and supportive. PAST MEDICAL HISTORY: Past Medical History: Diagnosis Date Arthritis Borderline abnormal thyroid function test COVID-19 virus detected Depression ([facility]) 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[facility]) Morbid obesity with BMI of 50.0-59.9, adult ([facility]) 04/13/2023 Umbilical hernia PAST SURGICAL HISTORY: Past [...] inhaler 2 puffs, Inhalation, 2 times daily, [place] with water after use to reduce aftertaste [...] Vital signs are stable. She has a largesoft tissue envelope. The right knee has hypertrophic [...] extensive course of arthroscopic management, corticosteroid injections, Viscosupplementation. She has tried bracing, ice, Tylenol and anti-inflammatory. She has done a good jobwith losing weight and has her BMI down six points to 46. She has pain, swelling and stiffness. Shehas night disruption. She has buckling and giving out. She has failed an extensive course of conservative care and has no other option than total knee replacement. She has done well with anesthesia in the past without deep venous thrombosis or pulmonary embolism. She is aware her weight is a comorbidity increasing her perioperative risk of morbidity and mortality as well as catastrophic failure an d or implant loosening. Lengthy discussion is encountered. [...] is aware that results cannot be guaranteed. intermediate designer antibiotic prophylaxis with dental or invasive surgical [...] and witnessed for right total knee arthroplasty co mpounded by morbid obesity, BMI greater than 40. She will undergo routine presurgical testing and scheduling and move forward in the near future. I will see her back postoperatively. She voices verbal understanding. She is discharged in stable condition. Chan Khan D.O. Cosigned by Chan Khan DO at 01/17/2024 9:34 PM EST documented in this encounterHannibal Regional HospitalPinzrtkdga96-83-0718 History of Present illness Narrative* Elvie Greer NP - 11/09/2023 2:45 PM EDTAssociated Problem(s): Arthritis of knee, right Continue with ortho and weight loss Will refer to rheum for evaluation as well * Elvie Greer NP - 11/09/2023 2:41 PM EDTAssociated Problem(s): Psoriasis (CMS/HCC) Will send to Rheumatology for evaluation for psoriatic arthritis * Elvie Greer NP - 11/09/2023 2:40 PM EDTAssociated Problem(s): Anxiety and depression (CMS/HCC) Doing well on current meds * Elvie Greer NP - 11/09/2023 2:40 PM EDTAssociated Problem(s): Morbid obesity with BMI of 50.0-59.9, adult (CMS/HCC) Doing well * Elvie Greer NP - 11/09/2023 2:40 PM EDTAssociated Problem(s): Aura's thyroiditis (CMS/HCC) Bump up dose thyroid to 75mcg Recheck labs in 8 weeks * SILVER JAMIES - 11/09/2023 2:00 PM EDT Pt is currently on keto- ortho seen [...] not getting stuck just her pills now. * Elvie Greer NP - 11/09/2023 2:00 PM EDT Images from the original note [...] inhaler 2 puffs, Inhalation, 2 times daily, [place] with water after use to reduce aftertaste [...] thyroid function test COVID-19 virus detected Depression ([facility]/HCC) 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[facility]) Morbid obesity with BMI of 50.0-59.9, adult ([facility]) 04/13/2023 Umbilical hernia Past Surgical History: Procedure [...] EC tablet Moderate persistent asthma without complication ([facility]) Relevant Medications budesonide-formoterol (Symbicort) 160-4.5 MCG/ACT inhaler montelukast (Singulair) 10 MG tablet Psoriasis ([facility]) Will send to Rheumatology for evaluation for psoriatic arthritis Relevant Orders Ambulatory referral to Rheumatology Morbid obesity with BMI of 50.0-59.9, adult ([facility]) Doing well Aura's thyroiditis ([facility]) - Primary Bump up dose thyroid to 75mcg Recheck labs in 8 weeks Relevant Medications levothyroxine (Synthroid) 75 MCG tablet Other Relevant Orders TSH T4, free documented in this encounterHannibal Regional [id number] History of Present illness Narrative* Vivek Dickinson NP - 04/22/2023 10:15 AM EST Images from the original note were not [...] inhaler 2 puffs, Inhalation, 2 times daily, [place] with water after use to reduce aftertaste [...] Oral montelukast (SINGULAIR) 10 mg, Oral, Nightly [place]-3 Fatty Acids (Fish Oil) 1000 MG capsule [...] with cortisone injection of right knee. I discussedtreatment options with patient and recommend that she [...] develop for requiring urgent evaluation. Vivek Dickinson CROP OR GRAIN FARMER-PHYSICIAN/ALLERGY/IMMUNOLOGY documented in this [facility]02-07-2024 Telephone encounter Note* Telephone Encounter - SILVER JAIMES - 04/14/2023 11:38 AM EST jeannie from [employer] calling about pt's traMADol (Ultram) 50 MG tablet. They need it verified. You wrote a quanity of 15 days but the directions say 1 tablet PO [facility] 10 [id number] Misc[facility] Notes* Telephone Encounter - SILVER JAIMES - 04/14/2023 11:38 AM EST jeannie from [employer] calling about pt's traMADol (Ultram) 50 MG tablet. They need it verified. You wrote a quanity of 15 days but the directions say 1 tablet PO for 10 days documented in this [facility]12-22-2023 Evaluation note* Encounter Date Diagnosis Assessment Notes Treatment Notes Treatment Clinical Notes Feb, Contact with and (cardona spected) exposure to covid-19 (ICD-10 - Z20.822) Feb,OVID-19 (ICD-10 - U07.1)Discharge Instructions for COVID-19 (Suspected or Confirmed ) material was printed Drink plenty of fluids, get plenty of rest. Take Tylenol or motrin as needed for aches, pains, fevers. You must quarentine for 5 days after the onset of your symptoms of covid. Follow up with your PCP if no improvement in 2-3 days. Digital Message Display Other Evaluation + Plan note Future Appointments Appointment Date:02/21/2024 11:15:00 AM Scheduled Provider: Location:[facility] Appointment Type:Surgery FT [facility] Evaluation note* Diagnosis Chronic pain of right knee documented in this encounter [facility] HealthcareEvaluation note* Diagnosis Primary osteoarthritis of right knee- Primary Right knee pain, unspecified chronicity documented in this encounter [facility] HealthcareEvaluation noteNo assessment information availableSt[facility] Phone: Evaluation note* Diagnosis Onset Date Resolution Status Cellulitis of arm, left acute [facility] Work Phone: Evaluation note* Diagnosis Anxiety and [...] Arthritis of knee, right Anxiety and depression (CMS/HCC) Aura's thyroiditis (CMS/HCC) Chronic lymphocytic thyroiditis documented in this encounter [facility] HealthcareEvaluation note* Diagnosis Anxiety and depression ([facility]/HCC)- Primary Elevated glucose Other abnormal glucose Hypomagnesemia Disorders of magnesium metabolism Gastroesophageal reflux disease, unspecified whether esophagitis present Morbid obesity with BMI of 50.0-59.9, adult ([facility]) Moderate persistent asthma without complication ([facility]) Chronic pain of right knee Anxiety and depression ([facility])- Primary Abnormal TSH Chronic pain of right knee Non-recurrent acute suppurative otitis media of left ear without spontaneous rupture of tympanic membrane Aura's thyroiditis ([facility])- Primary Chronic lymphocytic thyroiditis Anxiety and depression ([facility]) Morbid obesity with BMI of 50.0-59.9, adult ([facility]) Arthritis of knee, right Cellulitis of lower extremity, unspecified laterality- Primary Moderate persistent asthma without complication ([facility]) Ventral hernia without obstruction or gangrene Unspecified ventral hernia without mention of obstruction or gangrene Gastroesophageal reflux disease, unspecified whether esophagitis present Morbid obesity with BMI of 50.0-59.9, adult ([facility]) Aura's thyroiditis ([facility] Chronic lymphocytic thyroiditis Anxiety and depression ([facility]) Gastroesophageal reflux disease, unspecified whether esophagitis present- Primary Aura's thyroiditis ([facility]) Chronic lymphocytic thyroiditis Moderate persistent asthma without complication ([facility]) Morbid obesity with BMI of 50.0-59.9, adult ([facility]) Arthritis of knee, right Aura's thyroiditis ([facility])- Primary Chronic lymphocytic thyroiditis Morbid obesity with BMI of 50.0-59.9, adult ([facility] Psoriasis ([facility]) Other psoriasis Anxiety and depression ([facility]) Gastroesophageal reflux disease, unspecified whether esophagitis present Moderate persistent asthma without complication ([facility]) Arthritis of knee, right Pre-op testing- Primary Unspecified pre-operative examination documented in this encounter [facility]* Diagnosis Anxiety and depression ([facility]/HCC)- Primary Elevated glucose Other abnormal glucose Hypomagnesemia Disorders of magnesium metabolism Gastroesophageal reflux disease, unspecified whether esophagitis present Morbid obesity with BMI of 50.0-59.9, adult ([facility]) Moderate persistent asthma without complication ([facility]) Chronic pain of right knee Anxiety and depression ([facility])- Primary Abnormal TSH Chronic pain of right knee Non-recurrent acute suppurative otitis media of left ear without spontaneous rupture of tympanic membrane Aura's thyroiditis ([facility]/HCC)- Primary Chronic lymphocytic thyroiditis Anxiety and depression ([facility]) Morbid obesity with BMI of 50.0-59.9, adult ([facility]) Arthritis of knee, right Cellulitis of lower extremity, unspecified laterality- Primary Moderate persistent asthma without complication ([facility]) Ventral hernia without obstruction or gangrene Unspecified ventral hernia without mention of obstruction or gangrene Gastroesophageal reflux disease, unspecified whether esophagitis present Morbid obesity with BMI of 50.0-59.9, adult ([facility]) Aura's thyroiditis ([facility]) Chronic lymphocytic thyroiditis Anxiety and depression ([facility]) Gastroesophageal reflux disease, unspecified whether esophagitis present- Primary Aura's thyroiditis ([facility]) Chronic lymphocytic thyroiditis Moderate persistent asthma without complication ([facility]) Morbid obesity with BMI of 50.0-59.9, adult ([facility]) Arthritis of knee, right Aura's thyroiditis ([facility])- Primary Chronic lymphocytic thyroiditis Morbid obesity with BMI of 50.0-59.9, adult ([facility] Psoriasis ([facility]) Other psoriasis Anxiety and depression ([facility]) Gastroesophageal reflux disease, unspecified whether esophagitis present Moderate persistent asthma without complication ([facility]) Arthritis of knee, right Anxiety and depression ([facility])- Primary Mild persistent asthma without complication ([facility]) Gastroesophageal reflux disease, unspecified whether esophagitis present Morbid obesity with BMI of 50.0-59.9, adult ([facility]) Aura's thyroiditis ([facility]) Chronic lymphocytic thyroiditis Morbid obesity due to excess calories ([facility] Moderate persistent asthma without complication ([facility]) Encounter for screening mammogram for malignant neoplasm of breast Arthritis of knee, right Psoriasis ([facility])- Primary Other psoriasis documented in this encounter [facility]* Diagnosis Anxiety and depression ([facility]/HCC)- Primary Elevated glucose Other abnormal glucose Hypomagnesemia Disorders of magnesium metabolism Gastroesophageal reflux disease, unspecified whether esophagitis present Morbid obesity with BMI of 50.0-59.9, adult ([facility]) Moderate persistent asthma without complication ([facility]) Chronic pain of right knee Anxiety and depression ([facility])- Primary Abnormal TSH Chronic pain of right knee Non-recurrent acute suppurative otitis media of left ear without spontaneous rupture of tympanic membrane Aura's thyroiditis ([facility]/HCC)- Primary Chronic lymphocytic thyroiditis Anxiety and depression ([facility]) Morbid obesity with BMI of 50.0-59.9, adult ([facility]) Arthritis of knee, right Cellulitis of lower extremity, unspecified laterality- Primary Moderate persistent asthma without complication ([facility]) Ventral hernia without obstruction or gangrene Unspecified ventral hernia without mention of obstruction or gangrene Gastroesophageal reflux disease, unspecified whether esophagitis present Morbid obesity with BMI of 50.0-59.9, adult ([facility]) Aura's thyroiditis ([facility]) Chronic lymphocytic thyroiditis Anxiety and depression ([facility]) Gastroesophageal reflux disease, unspecified whether esophagitis present- Primary Aura's thyroiditis ([facility]) Chronic lymphocytic thyroiditis Moderate persistent asthma without complication ([facility]) Morbid obesity with BMI of 50.0-59.9, adult ([facility]) Arthritis of knee, right Aura's thyroiditis ([facility])- Primary Chronic lymphocytic thyroiditis Morbid obesity with BMI of 50.0-59.9, adult ([facility] Psoriasis ([facility]) Other psoriasis Anxiety and depression ([facility]) Gastroesophageal reflux disease, unspecified whether esophagitis present Moderate persistent asthma without complication ([facility]) Arthritis of knee, right Anxiety and depression ([facility])- Primary Mild persistent asthma without complication ([facility]) Gastroesophageal reflux disease, unspecified whether esophagitis present Morbid obesity with BMI of 50.0-59.9, adult ([facility]) Aura's thyroiditis ([facility]) Chronic lymphocytic thyroiditis Morbid obesity due to excess calories ([facility] Moderate persistent asthma without complication ([facility]) Encounter for screening mammogram for malignant neoplasm of breast Arthritis of knee, right documented in this encounter [facility]* Diagnosis Anxiety and depression ([facility]/HCC)- Primary Elevated glucose Other abnormal glucose Hypomagnesemia Disorders of magnesium metabolism Gastroesophageal reflux disease, unspecified whether esophagitis present Morbid obesity with BMI of 50.0-59.9, adult ([facility]) Moderate persistent asthma without complication ([facility]) Chronic pain of right knee Anxiety and depression ([facility])- Primary Abnormal TSH Chronic pain of right knee Non-recurrent acute suppurative otitis media of left ear without spontaneous rupture of tympanic membrane Aura's thyroiditis ([facility]/HCC)- Primary Chronic lymphocytic thyroiditis Anxiety and depression ([facility]) Morbid obesity with BMI of 50.0-59.9, adult ([facility]) Arthritis of knee, right Cellulitis of lower extremity, unspecified laterality- Primary Moderate persistent asthma without complication ([facility]) Ventral hernia without obstruction or gangrene Unspecified ventral hernia without mention of obstruction or gangrene Gastroesophageal reflux disease, unspecified whether esophagitis present Morbid obesity with BMI of 50.0-59.9, adult ([facility]) Aura's thyroiditis ([facility]) Chronic lymphocytic thyroiditis Anxiety and depression ([facility]) Gastroesophageal reflux disease, unspecified whether esophagitis present- Primary Aura's thyroiditis ([facility]/HCC) Chronic lymphocytic thyroiditis Moderate persistent asthma without complication ([facility]) Morbid obesity with BMI of 50.0-59.9, adult ([facility]) Arthritis of knee, right Aura's thyroiditis ([facility]/HCC)- Primary Chronic lymphocytic thyroiditis Morbid obesity with BMI of 50.0-59.9, adult ([facility]) Psoriasis ([facility]) Other psoriasis Anxiety and depression ([facility]) Gastroesophageal reflux disease, unspecified whether esophagitis present Moderate persistent asthma without complication ([facility]/HCC) Arthritis of knee, right Anxiety and depression ([facility]/HCC)- Primary Mild persistent asthma without complication ([facility]) Gastroesophageal reflux disease, unspecified whether esophagitis present Morbid obesity with BMI of 50.0-59.9, adult ([facility]) Aura's thyroiditis ([facility]) Chronic lymphocytic thyroiditis Morbid obesity due to excess calories ([facility] Moderate persistent asthma without complication ([facility]) Encounter for screening mammogram for malignant neoplasm of breast Arthritis of knee, right Psoriasis ([facility])- Primary Other psoriasis Primary osteoarthritis of right knee- Primary documented in this encounter [facility]* Diagnosis Anxiety and depression ([facility]/HCC)- Primary Elevated glucose Other abnormal glucose Hypomagnesemia Disorders of magnesium metabolism Gastroesophageal reflux disease, unspecified whether esophagitis present Morbid obesity with BMI of 50.0-59.9, adult ([facility]) Moderate persistent asthma without complication ([facility]) Chronic pain of right knee Anxiety and depression (CMS/HCC)- Primary Abnormal TSH Chronic pain of right knee Non-recurrent acute suppurative otitis media of left ear without spontaneous rupture of tympanic membrane Aura's thyroiditis ([facility])- Primary Chronic lymphocytic thyroiditis Anxiety and depression ([facility]) Morbid obesity with BMI of 50.0-59.9, adult ([facility]) Arthritis of knee, right Cellulitis of lower extremity, unspecified laterality- Primary Moderate persistent asthma without complication ([facility]) Ventral hernia without obstruction or gangrene Unspecified ventral hernia without mention of obstruction or gangrene Gastroesophageal reflux disease, unspecified whether esophagitis present Morbid obesity with BMI of 50.0-59.9, adult ([facility]) 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[facility] Chronic lymphocytic thyroiditis Anxiety and depression ([facility]) Gastroesophageal reflux disease, unspecified whether esophagitis present- Primary Aura's thyroiditis ([facility] Chronic lymphocytic thyroiditis Moderate persistent asthma without complication ([facility]) Morbid obesity with BMI of 50.0-59.9, adult ([facility]) Arthritis of knee, right Aura's thyroiditis ([facility])- Primary Chronic lymphocytic thyroiditis Morbid obesity with BMI of 50.0-59.9, adult ([facility] Psoriasis ([facility]) Other psoriasis Anxiety and depression ([facility]) Gastroesophageal reflux disease, unspecified whether esophagitis present Moderate persistent asthma without complication ([facility]) Arthritis of knee, right Anxiety and depression ([facility])- Primary Mild persistent asthma without complication ([facility]) Gastroesophageal reflux disease, unspecified whether esophagitis present Morbid obesity with BMI of 50.0-59.9, adult ([facility]) Aura's thyroiditis ([facility]) Chronic lymphocytic thyroiditis Morbid obesity due to excess calories ([facility] Moderate persistent asthma without complication ([facility]) Encounter for screening mammogram for malignant neoplasm of breast Arthritis of knee, right Psoriasis ([facility])- Primary Other psoriasis Arthritis of knee, right- Primary Acute postoperative pain of right knee Status post right knee replacement Difficulty walking Difficulty in walking documented in this encounter [facility] HealthcareEvaluation note* Diagnosis Aura's thyroiditis ([facility])- Primary Chronic lymphocytic thyroiditis Morbid obesity with BMI of 50.0-59.9, adult ([facility]) Psoriasis ([facility]) Other psoriasis Anxiety and depression ([facility]) Gastroesophageal reflux disease, unspecified whether esophagitis present Moderate persistent asthma without complication ([facility]) Arthritis of knee, right documented in this encounter [facility] HealthcareEvaluation note* Diagnosis Gastroesophageal reflux disease, unspecified whether esophagitis present documented in this encounter [facility] HealthcareEvaluation note* Diagnosis Anxiety and depression ([facility])- Primary Elevated glucose Other abnormal glucose Hypomagnesemia Disorders of magnesium metabolism Gastroesophageal reflux disease, unspecified whether esophagitis present Morbid obesity with BMI of 50.0-59.9, adult ([facility]) Moderate persistent asthma without complication ([facility]) Chronic pain of right knee Anxiety and depression ([facility])- Primary Abnormal TSH Chronic pain of right knee Non-recurrent acute suppurative otitis media of left ear without spontaneous rupture of tympanic membrane Aura's thyroiditis ([facility])- Primary Chronic lymphocytic thyroiditis Anxiety and depression ([facility]) Morbid obesity with BMI of 50.0-59.9, adult ([facility]) Arthritis of knee, right Cellulitis of lower extremity, unspecified laterality- Primary Moderate persistent asthma without complication ([facility]) Ventral hernia without obstruction or gangrene Unspecified ventral hernia without mention of obstruction or gangrene Gastroesophageal reflux disease, unspecified whether esophagitis present Morbid obesity with BMI of 50.0-59.9, adult ([facility]) Aura's thyroiditis ([facility]) Chronic lymphocytic thyroiditis Anxiety and depression ([facility]) Gastroesophageal reflux disease, unspecified whether esophagitis present- Primary Aura's thyroiditis ([facility] Chronic lymphocytic thyroiditis Moderate persistent asthma without complication ([facility]) Morbid obesity with BMI of 50.0-59.9, adult ([facility]) Arthritis of knee, right Aura's thyroiditis ([facility])- Primary Chronic lymphocytic thyroiditis Morbid obesity with BMI of 50.0-59.9, adult ([facility]) Psoriasis ([facility] [facility] Other psoriasis Anxiety and depression ([facility]) Gastroesophageal reflux disease, unspecified whether esophagitis present Moderate persistent asthma without complication ([facility]) Arthritis of knee, right Anxiety and depression ([facility])- Primary Mild persistent asthma without complication ([facility]) Gastroesophageal reflux disease, unspecified whether esophagitis present Morbid obesity with BMI of 50.0-59.9, adult ([facility]/HCC) Aura's thyroiditis (CMS/HCC) Chronic lymphocytic thyroiditis Morbid obesity due to excess calories (CMS/HCC) Moderate persistent asthma without complication ([facility]/HCC) Encounter for screening mammogram for malignant neoplasm of breast Arthritis of knee, right Psoriasis (CMS/HCC)- Primary Other psoriasis Arthritis of knee, right- Primary Acute postoperative pain of right knee Status post right knee replacement Difficulty walking Difficulty in walking documented in this encounter [facility]* Diagnosis Anxiety and depression ([facility])- Primary Elevated glucose Other abnormal glucose Hypomagnesemia Disorders of magnesium metabolism Gastroesophageal reflux disease, unspecified whether esophagitis present Morbid obesity with BMI of 50.0-59.9, adult ([facility]) Moderate persistent asthma without complication (CMS/[facility]) Chronic pain of right knee Anxiety and depression (CMS/HCC)- Primary Abnormal TSH Chronic pain of right knee Non-recurrent acute suppurative otitis media of left ear without spontaneous rupture of tympanic membrane Aura's thyroiditis ([facility])- Primary Chronic lymphocytic thyroiditis Anxiety and depression ([facility]) Morbid obesity with BMI of 50.0-59.9, adult ([facility]) Arthritis of knee, right Cellulitis of lower extremity, unspecified laterality- Primary Moderate persistent asthma without complication (CMS/[facility]) Ventral hernia without obstruction or gangrene Unspecified ventral hernia without mention of obstruction or gangrene Gastroesophageal reflux disease, unspecified whether esophagitis present Morbid obesity with BMI of 50.0-59.9, adult ([facility]) Aura's thyroiditis ([facility]) Chronic lymphocytic thyroiditis Anxiety and depression ([facility]) Gastroesophageal reflux disease, unspecified whether esophagitis present- Primary Aura's thyroiditis (CMS/HCC) Chronic lymphocytic thyroiditis Moderate persistent asthma without complication (CMS/HCC) Morbid obesity with BMI of 50.0-59.9, adult ([facility]) Arthritis of knee, right Aura's thyroiditis ([facility]/HCC)- Primary Chronic lymphocytic thyroiditis Morbid obesity with BMI of 50.0-59.9, adult ([facility]) Psoriasis ([facility]) Other psoriasis Anxiety and depression (CMS/[facility]) Gastroesophageal reflux disease, unspecified whether esophagitis present Moderate persistent asthma without complication (CMS/HCC) Arthritis of knee, right Anxiety and depression ([facility]/HCC)- Primary Mild persistent asthma without complication (CMS/HCC) Gastroesophageal reflux disease, unspecified whether esophagitis present Morbid obesity with BMI of 50.0-59.9, adult ([facility]) Aura's thyroiditis (CMS/HCC) Chronic lymphocytic thyroiditis Morbid obesity due to excess calories (CMS/HCC) Moderate persistent asthma without complication (CMS/[facility]) Encounter for screening mammogram for malignant neoplasm of breast Arthritis of knee, right Psoriasis (CMS/[facility])- Primary Other psoriasis Arthritis of knee, right- Primary Acute postoperative pain of right knee Status post right knee replacement Difficulty walking Difficulty in walking documented in this encounter [facility] HealthcareEvaluation note* Diagnosis Anxiety and depression (CMS/[facility])- Primary Elevated glucose Other abnormal glucose Hypomagnesemia Disorders of magnesium metabolism Gastroesophageal reflux disease, unspecified whether esophagitis present Morbid obesity with BMI of 50.0-59.9, adult ([facility]) Moderate persistent asthma without complication (CMS/[facility]) Chronic pain of right knee Anxiety and depression (CMS/HCC)- Primary Abnormal TSH Chronic pain of right knee Non-recurrent acute suppurative otitis media of left ear without spontaneous rupture of tympanic membrane Aura's thyroiditis (CMS/[facility])- Primary Chronic lymphocytic thyroiditis Anxiety and depression (CMS/[facility]) Morbid obesity with BMI of 50.0-59.9, adult ([facility]) Arthritis of knee, right Cellulitis of lower extremity, unspecified laterality- Primary Moderate persistent asthma without complication (CMS/[facility]) Ventral hernia without obstruction or gangrene Unspecified ventral hernia without mention of obstruction or gangrene Gastroesophageal reflux disease, unspecified whether esophagitis present Morbid obesity with BMI of 50.0-59.9, adult ([facility]) Aura's thyroiditis ([facility]/HCC) Chronic lymphocytic thyroiditis Anxiety and depression ([facility]) Gastroesophageal reflux disease, unspecified whether esophagitis present- Primary Aura's thyroiditis (CMS/HCC) Chronic lymphocytic thyroiditis Moderate persistent asthma without complication (CMS/[facility]) Morbid obesity with BMI of 50.0-59.9, adult ([facility]) Arthritis of knee, right Aura's thyroiditis ([facility])- Primary Chronic lymphocytic thyroiditis Morbid obesity with BMI of 50.0-59.9, adult ([facility]) Psoriasis (CMS/[facility]) Other psoriasis Anxiety and depression ([facility]) Gastroesophageal reflux disease, unspecified whether esophagitis present Moderate persistent asthma without complication (CMS/HCC) Arthritis of knee, right Anxiety and depression (CMS/HCC)- Primary Mild persistent asthma without complication (CMS/HCC) Gastroesophageal reflux disease, unspecified whether esophagitis present Morbid obesity with BMI of 50.0-59.9, adult ([facility]) Aura's thyroiditis (CMS/HCC) Chronic lymphocytic thyroiditis Morbid obesity due to excess calories (CMS/HCC) Moderate persistent asthma without complication (CMS/HCC) Encounter for screening mammogram for malignant neoplasm of breast Arthritis of knee, right Psoriasis (CMS/[facility])- Primary Other psoriasis Arthritis of knee, right- Primary Acute postoperative pain of right knee Status post right knee replacement Difficulty walking Difficulty in walking documented in this encounter [facility] HealthcareEvaluation note* Diagnosis Anxiety and depression (CMS/HCC)- Primary Elevated glucose Other abnormal glucose Hypomagnesemia Disorders of magnesium metabolism Gastroesophageal reflux disease, unspecified whether esophagitis present Morbid obesity with BMI of 50.0-59.9, adult ([facility]) Moderate persistent asthma without complication (CMS/HCC) Chronic pain of right knee Anxiety and depression (CMS/HCC)- Primary Abnormal TSH Chronic pain of right knee Non-recurrent acute suppurative otitis media of left ear without spontaneous rupture of tympanic membrane Aura's thyroiditis ([facility])- Primary Chronic lymphocytic thyroiditis Anxiety and depression ([facility]) Morbid obesity with BMI of 50.0-59.9, adult ([facility]) Arthritis of knee, right Cellulitis of lower extremity, unspecified laterality- Primary Moderate persistent asthma without complication (CMS/[facility]) Ventral hernia without obstruction or gangrene Unspecified ventral hernia without mention of obstruction or gangrene Gastroesophageal reflux disease, unspecified whether esophagitis present Morbid obesity with BMI of 50.0-59.9, adult ([facility]/HCC) Aura's thyroiditis (CMS/HCC) Chronic lymphocytic thyroiditis Anxiety and depression ([facility]) Gastroesophageal reflux disease, unspecified whether esophagitis present- Primary Aura's thyroiditis (CMS/HCC) Chronic lymphocytic thyroiditis Moderate persistent asthma without complication (CMS/HCC) Morbid obesity with BMI of 50.0-59.9, adult ([facility]) Arthritis of knee, right Aura's thyroiditis (CMS/HCC)- Primary Chronic lymphocytic thyroiditis Morbid obesity with BMI of 50.0-59.9, adult ([facility]) Psoriasis (CMS/HCC) Other psoriasis Anxiety and depression (CMS/HCC) Gastroesophageal reflux disease, unspecified whether esophagitis present Moderate persistent asthma without complication (CMS/HCC) Arthritis of knee, right Anxiety and depression (CMS/HCC)- Primary Mild persistent asthma without complication (CMS/HCC) Gastroesophageal reflux disease, unspecified whether esophagitis present Morbid obesity with BMI of 50.0-59.9, adult ([facility]) Aura's thyroiditis (CMS/HCC) Chronic lymphocytic thyroiditis Morbid obesity due to excess calories (CMS/HCC) Moderate persistent asthma without complication (CMS/HCC) Encounter for screening mammogram for malignant neoplasm of breast Arthritis of knee, right Psoriasis (CMS/[facility])- Primary Other psoriasis Arthritis of knee, right- Primary Acute postoperative pain of right knee Status post right knee replacement Difficulty walking Difficulty in walking documented in this encounter [facility]* Diagnosis Anxiety and depression (CMS/HCC)- Primary Elevated glucose Other abnormal glucose Hypomagnesemia Disorders of magnesium metabolism Gastroesophageal reflux disease, unspecified whether esophagitis present Morbid obesity with BMI of 50.0-59.9, adult ([facility]) Moderate persistent asthma without complication (CMS/HCC) Chronic pain of right knee Anxiety and depression (CMS/HCC)- Primary Abnormal TSH Chronic pain of right knee Non-recurrent acute suppurative otitis media of left ear without spontaneous rupture of tympanic membrane Aura's thyroiditis (CMS/HCC)- Primary Chronic lymphocytic thyroiditis Anxiety and depression (CMS/[facility]) Morbid obesity with BMI of 50.0-59.9, adult ([facility]) Arthritis of knee, right Cellulitis of lower extremity, unspecified laterality- Primary Moderate persistent asthma without complication (CMS/HCC) Ventral hernia without obstruction or gangrene Unspecified ventral hernia without mention of obstruction or gangrene Gastroesophageal reflux disease, unspecified whether esophagitis present Morbid obesity with BMI of 50.0-59.9, adult ([facility]) Aura's thyroiditis (CMS/HCC) Chronic lymphocytic thyroiditis Anxiety and depression (CMS/[facility]) Gastroesophageal reflux disease, unspecified whether esophagitis present- Primary Aura's thyroiditis (CMS/HCC) Chronic lymphocytic thyroiditis Moderate persistent asthma without complication (CMS/HCC) Morbid obesity with BMI of 50.0-59.9, adult ([facility]) Arthritis of knee, right Aura's thyroiditis (CMS/HCC)- Primary Chronic lymphocytic thyroiditis Morbid obesity with BMI of 50.0-59.9, adult ([facility]) Psoriasis ([facility]/HCC) Other psoriasis Anxiety and depression (CMS/[facility]) Gastroesophageal reflux disease, unspecified whether esophagitis present Moderate persistent asthma without complication (CMS/HCC) Arthritis of knee, right Anxiety and depression ([facility])- Primary Mild persistent asthma without complication ([facility]) Gastroesophageal reflux disease, unspecified whether esophagitis present Morbid obesity with BMI of 50.0-59.9, adult ([facility]) Aura's thyroiditis ([facility]) Chronic lymphocytic thyroiditis Morbid obesity due to excess calories (CMS/[facility] Moderate persistent asthma without complication ([facility]) Encounter for screening mammogram for malignant neoplasm of breast Arthritis of knee, right Psoriasis ([facility])- Primary Other psoriasis Arthritis of knee, right- Primary Acute postoperative pain of right knee Status post right knee replacement Difficulty walking Difficulty in walking documented in this encounter [facility]* Diagnosis Anxiety and depression ([facility])- Primary Elevated glucose Other abnormal glucose Hypomagnesemia Disorders of magnesium metabolism Gastroesophageal reflux disease, unspecified whether esophagitis present Morbid obesity with BMI of 50.0-59.9, adult ([facility]) Moderate persistent asthma without complication ([facility]) Chronic pain of right knee Anxiety and depression ([facility])- Primary Abnormal TSH Chronic pain of right knee Non-recurrent acute suppurative otitis media of left ear without spontaneous rupture of tympanic membrane Aura's thyroiditis ([facility])- Primary Chronic lymphocytic thyroiditis Anxiety and depression ([facility]) Morbid obesity with BMI of 50.0-59.9, adult ([facility]) Arthritis of knee, right Cellulitis of lower extremity, unspecified laterality- Primary Moderate persistent asthma without complication ([facility]) Ventral hernia without obstruction or gangrene Unspecified ventral hernia without mention of obstruction or gangrene Gastroesophageal reflux disease, unspecified whether esophagitis present Morbid obesity with BMI of 50.0-59.9, adult ([facility]) Aura's thyroiditis ([facility] Chronic lymphocytic thyroiditis Anxiety and depression ([facility]) Gastroesophageal reflux disease, unspecified whether esophagitis present- Primary Aura's thyroiditis ([facility]) Chronic lymphocytic thyroiditis Moderate persistent asthma without complication ([facility]) Morbid obesity with BMI of 50.0-59.9, adult ([facility]) Arthritis of knee, right Aura's thyroiditis ([facility]/HCC)- Primary Chronic lymphocytic thyroiditis Morbid obesity with BMI of 50.0-59.9, adult ([facility]) Psoriasis (CMS/HCC) Other psoriasis Anxiety and depression (CMS/[facility]) Gastroesophageal reflux disease, unspecified whether esophagitis present Moderate persistent asthma without complication (CMS/HCC) Arthritis of knee, right Anxiety and depression ([facility]/HCC)- Primary Mild persistent asthma without complication (CMS/[facility]) Gastroesophageal reflux disease, unspecified whether esophagitis present Morbid obesity with BMI of 50.0-59.9, adult ([facility]) Aura's thyroiditis ([facility]) Chronic lymphocytic thyroiditis Morbid obesity due to excess calories ([facility] Moderate persistent asthma without complication ([facility]) Encounter for screening mammogram for malignant neoplasm of breast Arthritis of knee, right Psoriasis ([facility])- Primary Other psoriasis Arthritis of knee, right- Primary Acute postoperative pain of right knee Status post right knee replacement Difficulty walking Difficulty in walking documented in this encounter [facility] HealthcareEvaluation note* Diagnosis Anxiety and depression ([facility])- Primary Elevated glucose Other abnormal glucose Hypomagnesemia Disorders of magnesium metabolism Gastroesophageal reflux disease, unspecified whether esophagitis present Morbid obesity with BMI of 50.0-59.9, adult ([facility]) Moderate persistent asthma without complication ([facility]) Chronic pain of right knee Anxiety and depression ([facility])- Primary Abnormal TSH Chronic pain of right knee Non-recurrent acute suppurative otitis media of left ear without spontaneous rupture of tympanic membrane Aura's thyroiditis ([facility])- Primary Chronic lymphocytic thyroiditis Anxiety and depression ([facility]) Morbid obesity with BMI of 50.0-59.9, adult ([facility]) Arthritis of knee, right Cellulitis of lower extremity, unspecified laterality- Primary Moderate persistent asthma without complication ([facility]) Ventral hernia without obstruction or gangrene Unspecified ventral hernia without mention of obstruction or gangrene Gastroesophageal reflux disease, unspecified whether esophagitis present Morbid obesity with BMI of 50.0-59.9, adult ([facility]) Aura's thyroiditis (CMS/[facility]) Chronic lymphocytic thyroiditis Anxiety and depression ([facility]) Gastroesophageal reflux disease, unspecified whether esophagitis present- Primary Aura's thyroiditis (CMS/HCC) Chronic lymphocytic thyroiditis Moderate persistent asthma without complication (CMS/HCC) Morbid obesity with BMI of 50.0-59.9, adult ([facility]/HCC) Arthritis of knee, right Aura's thyroiditis (CMS/HCC)- [...] Morbid obesity with BMI of 50.0-59.9, adult ([facility]) Aura's thyroiditis (CMS/[facility]) Chronic lymphocytic thyroiditis Morbid obesity due to excess calories (CMS/HCC) Moderate persistent asthma without complication (CMS/[facility]) Encounter for screening mammogram for malignant neoplasm of breast Arthritis of knee, right Psoriasis (CMS/HCC)- Primary Other psoriasis Aftercare following right knee joint replacement surgery- Primary documented in this encounter [facility] HealthcareEvaluation note* Diagnosis Anxiety and depression (CMS/HCC)- Primary Elevated glucose Other abnormal glucose Hypomagnesemia Disorders of magnesium metabolism Gastroesophageal reflux disease, unspecified whether esophagitis present Morbid obesity with BMI of 50.0-59.9, adult ([facility]) Moderate persistent asthma without complication (CMS/HCC) Chronic pain of right knee Anxiety and depression (CMS/HCC)- Primary Abnormal TSH Chronic pain of right knee Non-recurrent acute suppurative otitis media of left ear without spontaneous rupture of tympanic membrane Aura's thyroiditis ([facility]/HCC)- Primary Chronic lymphocytic thyroiditis Anxiety and depression (CMS/HCC) Morbid obesity with BMI of 50.0-59.9, adult ([facility]) Arthritis of knee, right Cellulitis of lower extremity, unspecified laterality- Primary Moderate persistent asthma without complication (CMS/HCC) Ventral hernia without obstruction or gangrene Unspecified ventral hernia without mention of obstruction or gangrene Gastroesophageal reflux disease, unspecified whether esophagitis present Morbid obesity with BMI of 50.0-59.9, adult ([facility]) Aura's thyroiditis (CMS/HCC) Chronic lymphocytic thyroiditis Anxiety and depression (CMS/[facility]) Gastroesophageal reflux disease, unspecified whether esophagitis present- Primary Aura's thyroiditis ([facility]/HCC) Chronic lymphocytic thyroiditis Moderate persistent asthma without complication ([facility]) Morbid obesity with BMI of 50.0-59.9, adult ([facility]) Arthritis of knee, right Aura's thyroiditis ([facility]/HCC)- Primary Chronic lymphocytic thyroiditis Morbid obesity with BMI of 50.0-59.9, adult ([facility]) Psoriasis ([facility]) Other psoriasis Anxiety and depression ([facility]) Gastroesophageal reflux disease, unspecified whether esophagitis present Moderate persistent asthma without complication (CMS/HCC) Arthritis of knee, right Anxiety and depression ([facility])- Primary Mild persistent asthma without complication ([facility]) Gastroesophageal reflux disease, unspecified whether esophagitis present Morbid obesity with BMI of 50.0-59.9, adult ([facility]) Aura's thyroiditis ([facility]) Chronic lymphocytic thyroiditis Morbid obesity due to excess calories ([facility] Moderate persistent asthma without complication ([facility]) Encounter for screening mammogram for malignant neoplasm of breast Arthritis of knee, right Psoriasis ([facility])- Primary Other psoriasis Arthritis of knee, right- Primary Acute postoperative pain of right knee Status post right knee replacement documented in this encounter [facility] HealthcareEvaluation note* Diagnosis Anxiety and depression ([facility])- Primary Elevated glucose Other abnormal glucose Hypomagnesemia Disorders of magnesium metabolism Gastroesophageal reflux disease, unspecified whether esophagitis present Morbid obesity with BMI of 50.0-59.9, adult ([facility]) Moderate persistent asthma without complication ([facility] Chronic pain of right knee Anxiety and depression ([facility])- Primary Abnormal TSH Chronic pain of right knee Non-recurrent acute suppurative otitis media of left ear without spontaneous rupture of tympanic membrane Aura's thyroiditis ([facility])- Primary Chronic lymphocytic thyroiditis Anxiety and depression ([facility]) Morbid obesity with BMI of 50.0-59.9, adult ([facility]) Arthritis of knee, right Cellulitis of lower extremity, unspecified laterality- Primary Moderate persistent asthma without complication ([facility]) Ventral hernia without obstruction or gangrene Unspecified ventral hernia without mention of obstruction or gangrene Gastroesophageal reflux disease, unspecified whether esophagitis present Morbid obesity with BMI of 50.0-59.9, adult ([facility]) Aura's thyroiditis ([facility] Chronic lymphocytic thyroiditis Anxiety and depression ([facility]) Gastroesophageal reflux disease, unspecified whether esophagitis present- Primary Aura's thyroiditis ([facility] Chronic lymphocytic thyroiditis Moderate persistent asthma without complication ([facility]) Morbid obesity with BMI of 50.0-59.9, adult ([facility]) Arthritis of knee, right Aura's thyroiditis ([facility])- Primary Chronic lymphocytic thyroiditis Morbid obesity with BMI of 50.0-59.9, adult ([facility]) Psoriasis ([facility]) Other psoriasis Anxiety and depression ([facility]) Gastroesophageal reflux disease, unspecified whether esophagitis present Moderate persistent asthma without complication ([facility]) Arthritis of knee, right Anxiety and depression ([facility])- Primary Mild persistent asthma without complication ([facility]) Gastroesophageal reflux disease, unspecified whether esophagitis present Morbid obesity with BMI of 50.0-59.9, adult ([facility]) Aura's thyroiditis ([facility] Chronic lymphocytic thyroiditis Morbid obesity due to excess calories ([facility] Moderate persistent asthma without complication ([facility]) Encounter for screening mammogram for malignant neoplasm of breast Arthritis of knee, right Psoriasis ([facility])- Primary Other psoriasis Arthritis of knee, right- Primary Acute postoperative pain of right knee Status post right knee replacement Difficulty walking Difficulty in walking documented in this encounter [facility]* Diagnosis Anxiety and depression ([facility])- Primary Elevated glucose Other abnormal glucose Hypomagnesemia Disorders of magnesium metabolism Gastroesophageal reflux disease, unspecified whether esophagitis present Morbid obesity with BMI of 50.0-59.9, adult ([facility]) Moderate persistent asthma without complication ([facility] Chronic pain of right knee Anxiety and depression ([facility])- Primary Abnormal TSH Chronic pain of right knee Non-recurrent acute suppurative otitis media of left ear without spontaneous rupture of tympanic membrane Aura's thyroiditis ([facility])- Primary Chronic lymphocytic thyroiditis Anxiety and depression ([facility]) Morbid obesity with BMI of 50.0-59.9, adult ([facility]) Arthritis of knee, right Cellulitis of lower extremity, unspecified laterality- Primary Moderate persistent asthma without complication ([facility]) Ventral hernia without obstruction or gangrene Unspecified ventral hernia without mention of obstruction or gangrene Gastroesophageal reflux disease, unspecified whether esophagitis present Morbid obesity with BMI of 50.0-59.9, adult ([facility]) Aura's thyroiditis ([facility] Chronic lymphocytic thyroiditis Anxiety and depression ([facility]) Gastroesophageal reflux disease, unspecified whether esophagitis present- Primary Aura's thyroiditis ([facility] Chronic lymphocytic thyroiditis Moderate persistent asthma without complication ([facility]) Morbid obesity with BMI of 50.0-59.9, adult ([facility]) Arthritis of knee, right Aura's thyroiditis ([facility])- Primary Chronic lymphocytic thyroiditis Morbid obesity with BMI of 50.0-59.9, adult ([facility]) Psoriasis ([facility]) Other psoriasis Anxiety and depression ([facility]) Gastroesophageal reflux disease, unspecified whether esophagitis present Moderate persistent asthma without complication ([facility]) Arthritis of knee, right Anxiety and depression ([facility])- Primary Mild persistent asthma without complication ([facility]) Gastroesophageal reflux disease, unspecified whether esophagitis present Morbid obesity with BMI of 50.0-59.9, adult ([facility]) Aura's thyroiditis ([facility]) Chronic lymphocytic thyroiditis Morbid obesity due to excess calories ([facility] Moderate persistent asthma without complication ([facility]) Encounter for screening mammogram for malignant neoplasm of breast Arthritis of knee, right Psoriasis ([facility])- Primary Other psoriasis Arthritis of knee, right- Primary Acute postoperative pain of right knee Status post right knee replacement Difficulty walking Difficulty in walking documented in this encounter [facility]* Diagnosis Anxiety and depression ([facility])- Primary Elevated glucose Other abnormal glucose Hypomagnesemia Disorders of magnesium metabolism Gastroesophageal reflux disease, unspecified whether esophagitis present Morbid obesity with BMI of 50.0-59.9, adult ([facility]) Moderate persistent asthma without complication ([facility]) Chronic pain of right knee Anxiety and depression ([facility])- Primary Abnormal TSH Chronic pain of right knee Non-recurrent acute suppurative otitis media of left ear without spontaneous rupture of tympanic membrane Aura's thyroiditis ([facility])- Primary Chronic lymphocytic thyroiditis Anxiety and depression ([facility]) Morbid obesity with BMI of 50.0-59.9, adult ([facility]) Arthritis of knee, right Cellulitis of lower extremity, unspecified laterality- Primary Moderate persistent asthma without complication (CMS/HCC) Ventral hernia without obstruction or gangrene Unspecified ventral hernia without mention of obstruction or gangrene Gastroesophageal reflux disease, unspecified whether esophagitis present Morbid obesity with BMI of 50.0-59.9, adult ([facility] Aura's thyroiditis ([facility]) Chronic lymphocytic thyroiditis Anxiety and depression ([facility]) Gastroesophageal reflux disease, unspecified whether esophagitis present- Primary Aura's thyroiditis ([facility]) Chronic lymphocytic thyroiditis Moderate persistent asthma without complication ([facility]) Morbid obesity with BMI of 50.0-59.9, adult ([facility]) Arthritis of knee, right Aura's thyroiditis ([facility])- Primary Chronic lymphocytic thyroiditis Morbid obesity with BMI of 50.0-59.9, adult ([facility]) Psoriasis ([facility]) Other psoriasis Anxiety and depression ([facility]) Gastroesophageal reflux disease, unspecified whether esophagitis present Moderate persistent asthma without complication ([facility]) Arthritis of knee, right Anxiety and depression ([facility])- Primary Mild persistent asthma without complication ([facility]) Gastroesophageal reflux disease, unspecified whether esophagitis present Morbid obesity with BMI of 50.0-59.9, adult ([facility]) Aura's thyroiditis ([facility]) Chronic lymphocytic thyroiditis Morbid obesity due to excess calories ([facility] Moderate persistent asthma without complication ([facility]) Encounter for screening mammogram for malignant neoplasm of breast Arthritis of knee, right Psoriasis ([facility])- Primary Other psoriasis Moderate persistent asthma, uncomplicated ([facility]) Aura's thyroiditis ([facility]) Chronic lymphocytic thyroiditis Anxiety and depression ([facility]) documented in this encounter [facility]* Diagnosis Anxiety and depression ([facility])- Primary Elevated glucose Other abnormal glucose Hypomagnesemia Disorders of magnesium metabolism Gastroesophageal reflux disease, unspecified whether esophagitis present Morbid obesity with BMI of 50.0-59.9, adult ([facility]) Moderate persistent asthma without complication ([facility]) Chronic pain of right knee Anxiety and depression (CMS/HCC)- Primary Abnormal TSH Chronic pain of right knee Non-recurrent acute suppurative otitis media of left ear without spontaneous rupture of tympanic membrane Aura's thyroiditis (CMS/HCC)- Primary Chronic lymphocytic thyroiditis Anxiety and depression (CMS/HCC) Morbid obesity with BMI of 50.0-59.9, adult ([facility]) Arthritis of knee, right Cellulitis of lower extremity, unspecified laterality- Primary Moderate persistent asthma without complication ([facility]) Ventral hernia without obstruction or gangrene Unspecified ventral hernia without mention of obstruction or gangrene Gastroesophageal reflux disease, unspecified whether esophagitis present Morbid obesity with BMI of 50.0-59.9, adult ([facility]) Aura's thyroiditis ([facility] Chronic lymphocytic thyroiditis Anxiety and depression ([facility]) Gastroesophageal reflux disease, unspecified whether esophagitis present- Primary Aura's thyroiditis ([facility] Chronic lymphocytic thyroiditis Moderate persistent asthma without complication ([facility]) Morbid obesity with BMI of 50.0-59.9, adult ([facility]) Arthritis of knee, right Aura's thyroiditis ([facility])- Primary Chronic lymphocytic thyroiditis Morbid obesity with BMI of 50.0-59.9, adult ([facility]) Psoriasis ([facility]) Other psoriasis Anxiety and depression ([facility]) Gastroesophageal reflux disease, unspecified whether esophagitis present Moderate persistent asthma without complication ([facility]) Arthritis of knee, right Anxiety and depression ([facility])- Primary Mild persistent asthma without complication ([facility]) Gastroesophageal reflux disease, unspecified whether esophagitis present Morbid obesity with BMI of 50.0-59.9, adult ([facility]) Aura's thyroiditis ([facility]) Chronic lymphocytic thyroiditis Morbid obesity due to excess calories ([facility] Moderate persistent asthma without complication ([facility]) Encounter for screening mammogram for malignant neoplasm of breast Arthritis of knee, right Psoriasis ([facility])- Primary Other psoriasis Arthritis of knee, right- Primary Acute postoperative pain of right knee Status post right knee replacement documented in this encounter [facility]* Diagnosis Anxiety and depression ([facility]CC)- Primary Elevated glucose Other abnormal glucose Hypomagnesemia Disorders of magnesium metabolism Gastroesophageal reflux disease, unspecified whether esophagitis present Morbid obesity with BMI of 50.0-59.9, adult ([facility]) Moderate persistent asthma without complication ([facility]) Chronic pain of right knee Anxiety and depression ([facility])- Primary Abnormal TSH Chronic pain of right knee Non-recurrent acute suppurative otitis media of left ear without spontaneous rupture of tympanic membrane Aura's thyroiditis ([facility])- Primary Chronic lymphocytic thyroiditis Anxiety and depression ([facility]) Morbid obesity with BMI of 50.0-59.9, adult ([facility]) Arthritis of knee, right Cellulitis of lower extremity, unspecified laterality- Primary Moderate persistent asthma without complication ([facility]) Ventral hernia without obstruction or gangrene Unspecified ventral hernia without mention of obstruction or gangrene Gastroesophageal reflux disease, unspecified whether esophagitis present Morbid obesity with BMI of 50.0-59.9, adult ([facility]) Aura's thyroiditis ([facility]) Chronic lymphocytic thyroiditis Anxiety and depression ([facility]) Gastroesophageal reflux disease, unspecified whether esophagitis present- Primary Aura's thyroiditis ([facility] Chronic lymphocytic thyroiditis Moderate persistent asthma without complication ([facility]) Morbid obesity with BMI of 50.0-59.9, adult ([facility]) Arthritis of knee, right Aura's thyroiditis ([facility])- Primary Chronic lymphocytic thyroiditis Morbid obesity with BMI of 50.0-59.9, adult ([facility]) Psoriasis ([facility]) Other psoriasis Anxiety and depression ([facility]) Gastroesophageal reflux disease, unspecified whether esophagitis present Moderate persistent asthma without complication ([facility]) Arthritis of knee, right Anxiety and depression ([facility])- Primary Mild persistent asthma without complication ([facility]) Gastroesophageal reflux disease, unspecified whether esophagitis present Morbid obesity with BMI of 50.0-59.9, adult ([facility]) Aura's thyroiditis ([facility] Chronic lymphocytic thyroiditis Morbid obesity due to excess calories ([facility] Moderate persistent asthma without complication ([facility]) Encounter for screening mammogram for malignant neoplasm of breast Arthritis of knee, right Psoriasis ([facility])- Primary Other psoriasis Acute postoperative pain of right knee- Primary Status post right knee replacement Difficulty walking Difficulty in walking Aftercare following right knee joint replacement surgery documented in this encounter [facility]* Diagnosis Anxiety and depression ([facility])- Primary Elevated glucose Other abnormal glucose Hypomagnesemia Disorders of magnesium metabolism Gastroesophageal reflux disease, unspecified whether esophagitis present Morbid obesity with BMI of 50.0-59.9, adult ([facility]) Moderate persistent asthma without complication ([facility] Chronic pain of right knee Anxiety and depression ([facility])- Primary Abnormal TSH Chronic pain of right knee Non-recurrent acute suppurative otitis media of left ear without spontaneous rupture of tympanic membrane Aura's thyroiditis ([facility])- Primary Chronic lymphocytic thyroiditis Anxiety and depression ([facility]) Morbid obesity with BMI of 50.0-59.9, adult ([facility]) Arthritis of knee, right Cellulitis of lower extremity, unspecified laterality- Primary Moderate persistent asthma without complication ([facility]) Ventral hernia without obstruction or gangrene Unspecified ventral hernia without mention of obstruction or gangrene Gastroesophageal reflux disease, unspecified whether esophagitis present Morbid obesity with BMI of 50.0-59.9, adult ([facility]) Aura's thyroiditis ([facility]) Chronic lymphocytic thyroiditis Anxiety and depression ([facility]) Gastroesophageal reflux disease, unspecified whether esophagitis present- Primary Aura's thyroiditis ([facility] Chronic lymphocytic thyroiditis Moderate persistent asthma without complication ([facility]) Morbid obesity with BMI of 50.0-59.9, adult ([facility]) Arthritis of knee, right Aura's thyroiditis ([facility])- Primary Chronic lymphocytic thyroiditis Morbid obesity with BMI of 50.0-59.9, adult ([facility]) Psoriasis ([facility]) Other psoriasis Anxiety and depression ([facility]) Gastroesophageal reflux disease, unspecified whether esophagitis present Moderate persistent asthma without complication ([facility]) Arthritis of knee, right Anxiety and depression ([facility])- Primary Mild persistent asthma without complication ([facility]) Gastroesophageal reflux disease, unspecified whether esophagitis present Morbid obesity with BMI of 50.0-59.9, adult ([facility]) Aura's thyroiditis ([facility] Chronic lymphocytic thyroiditis Morbid obesity due to excess calories ([facility] Moderate persistent asthma without complication ([facility]) Encounter for screening mammogram for malignant neoplasm of breast Arthritis of knee, right Psoriasis ([facility])- Primary Other psoriasis Acute postoperative pain of right knee- Primary Status post right knee replacement Difficulty walking Difficulty in walking Aftercare following right knee joint replacement surgery Arthritis of knee, right documented in this encounter [facility]* Diagnosis Anxiety and depression ([facility])- Primary Elevated glucose Other abnormal glucose Hypomagnesemia Disorders of magnesium metabolism Gastroesophageal reflux disease, unspecified whether esophagitis present Morbid obesity with BMI of 50.0-59.9, adult ([facility]) Moderate persistent asthma without complication (CMS/HCC) Chronic pain of right knee Anxiety and depression (CMS/HCC)- Primary Abnormal TSH Chronic pain of right knee Non-recurrent acute suppurative otitis media of left ear without spontaneous rupture of tympanic membrane Aura's thyroiditis ([facility]/HCC)- Primary Chronic lymphocytic thyroiditis Anxiety and depression (CMS/HCC) Morbid obesity with BMI of 50.0-59.9, adult ([facility]) Arthritis of knee, right Cellulitis of lower extremity, unspecified laterality- Primary Moderate persistent asthma without complication (CMS/[facility]) Ventral hernia without obstruction or gangrene Unspecified ventral hernia without mention of obstruction or gangrene Gastroesophageal reflux disease, unspecified whether esophagitis present Morbid obesity with BMI of 50.0-59.9, adult ([facility]) Aura's thyroiditis (CMS/[facility]) Chronic lymphocytic thyroiditis Anxiety and depression (CMS/[facility]) Gastroesophageal reflux disease, unspecified whether esophagitis present- Primary Aura's thyroiditis (CMS/HCC) Chronic lymphocytic thyroiditis Moderate persistent asthma without complication (CMS/HCC) Morbid obesity with BMI of 50.0-59.9, adult ([facility]) Arthritis of knee, right Aura's thyroiditis (CMS/HCC)- Primary Chronic lymphocytic thyroiditis Morbid obesity with BMI of 50.0-59.9, adult ([facility]) Psoriasis (CMS/[facility]) Other psoriasis Anxiety and depression (CMS/[facility]) Gastroesophageal reflux disease, unspecified whether esophagitis present Moderate persistent asthma without complication (CMS/HCC) Arthritis of knee, right Anxiety and depression (CMS/HCC)- Primary Mild persistent asthma without complication (CMS/HCC) Gastroesophageal reflux disease, unspecified whether esophagitis present Morbid obesity with BMI of 50.0-59.9, adult ([facility]) Aura's thyroiditis (CMS/HCC) Chronic lymphocytic thyroiditis Morbid [...] Morbid obesity with BMI of 50.0-59.9, adult ([facility]) Moderate persistent asthma without complication ([facility]) Chronic pain of right knee Anxiety and depression ([facility])- Primary Abnormal TSH Chronic pain of right knee Non-recurrent acute suppurative otitis media of left ear without spontaneous rupture of tympanic membrane Aura's thyroiditis ([facility])- Primary Chronic lymphocytic thyroiditis Anxiety and depression ([facility]) Morbid obesity with BMI of 50.0-59.9, adult ([facility]) Arthritis of knee, right Cellulitis of lower extremity, unspecified laterality- Primary Moderate persistent asthma without complication ([facility]) Ventral hernia without obstruction or gangrene Unspecified ventral hernia without mention of obstruction or gangrene Gastroesophageal reflux disease, unspecified whether esophagitis present Morbid obesity with BMI of 50.0-59.9, adult ([facility]) Aura's thyroiditis ([facility] Chronic lymphocytic thyroiditis Anxiety and depression ([facility]) Gastroesophageal reflux disease, unspecified whether esophagitis present- Primary Aura's thyroiditis ([facility]) Chronic lymphocytic thyroiditis Moderate persistent asthma without complication ([facility]) Morbid obesity with BMI of 50.0-59.9, adult ([facility]) Arthritis of knee, right Aura's thyroiditis ([facility])- Primary Chronic lymphocytic thyroiditis Morbid obesity with BMI of 50.0-59.9, adult ([facility] Psoriasis ([facility]) Other psoriasis Anxiety and depression ([facility]) Gastroesophageal reflux disease, unspecified whether esophagitis present Moderate persistent asthma without complication ([facility]) Arthritis of knee, right Anxiety and depression ([facility])- Primary Mild persistent asthma without complication ([facility]) Gastroesophageal reflux disease, unspecified whether esophagitis present Morbid obesity with BMI of 50.0-59.9, adult ([facility]) Aura's thyroiditis ([facility]) Chronic lymphocytic thyroiditis Morbid obesity due to excess calories ([facility]) Moderate persistent asthma without complication ([facility]) Encounter for screening mammogram for malignant neoplasm of breast Arthritis of knee, right Psoriasis ([facility])- Primary Other psoriasis Acute postoperative pain of right knee- Primary Status post right knee replacement Aftercare following right knee joint replacement surgery Arthritis of knee, right Presence of right artificial knee joint Primary osteoarthritis of right knee documented in this encounter [facility] HealthcareEvaluation note* Diagnosis Anxiety and depression ([facility]/HCC)- Primary Elevated glucose Other abnormal glucose Hypomagnesemia Disorders of magnesium metabolism Gastroesophageal reflux disease, unspecified whether esophagitis present Morbid obesity with BMI of 50.0-59.9, adult ([facility]) Moderate persistent asthma without complication ([facility]) Chronic pain of right knee Anxiety and depression ([facility])- Primary Abnormal TSH Chronic pain of right knee Non-recurrent acute suppurative otitis media of left ear without spontaneous rupture of tympanic membrane Aura's thyroiditis ([facility])- Primary Chronic lymphocytic thyroiditis Anxiety and depression ([facility]) Morbid obesity with BMI of 50.0-59.9, adult ([facility]) Arthritis of knee, right Cellulitis of lower extremity, unspecified laterality- Primary Moderate persistent asthma without complication ([facility]) Ventral hernia without obstruction or gangrene Unspecified ventral hernia without mention of obstruction or gangrene Gastroesophageal reflux disease, unspecified whether esophagitis present Morbid obesity with BMI of 50.0-59.9, adult ([facility]) Aura's thyroiditis ([facility] Chronic lymphocytic thyroiditis Anxiety and depression ([facility]) Gastroesophageal reflux disease, unspecified whether esophagitis present- Primary Aura's thyroiditis ([facility]) Chronic lymphocytic thyroiditis Moderate persistent asthma without complication ([facility]) Morbid obesity with BMI of 50.0-59.9, adult ([facility]) Arthritis of knee, right Aura's thyroiditis ([facility])- Primary Chronic lymphocytic thyroiditis Morbid obesity with BMI of 50.0-59.9, adult ([facility] Psoriasis ([facility]) Other psoriasis Anxiety and depression ([facility]) Gastroesophageal reflux disease, unspecified whether esophagitis present Moderate persistent asthma without complication ([facility]) Arthritis of knee, right Anxiety and depression ([facility])- Primary Mild persistent asthma without complication ([facility]) Gastroesophageal reflux disease, unspecified whether esophagitis present Morbid obesity with BMI of 50.0-59.9, adult ([facility]) Aura's thyroiditis ([facility]) Chronic lymphocytic thyroiditis Morbid obesity due to excess calories ([facility]) Moderate persistent asthma without complication ([facility]/HCC) Encounter for screening mammogram for malignant neoplasm of breast Arthritis of knee, right Psoriasis ([facility])- Primary Other psoriasis Acute postoperative pain of right knee- Primary Status post right knee replacement Aftercare following right knee joint replacement surgery Arthritis of knee, right documented in this encounter [facility] HealthcareEvaluation note* Diagnosis Anxiety and depression (CMS/HCC)- Primary Elevated glucose Other abnormal glucose Hypomagnesemia Disorders of magnesium metabolism Gastroesophageal reflux disease, unspecified whether esophagitis present Morbid obesity with BMI of 50.0-59.9, adult ([facility]) Moderate persistent asthma without complication (CMS/HCC) Chronic pain of right knee Anxiety and depression (CMS/[facility])- Primary Abnormal TSH Chronic pain of right knee Non-recurrent acute suppurative otitis media of left ear without spontaneous rupture of tympanic membrane Aura's thyroiditis ([facility])- Primary Chronic lymphocytic thyroiditis Anxiety and depression ([facility]) Morbid obesity with BMI of 50.0-59.9, adult ([facility]) Arthritis of knee, right Cellulitis of lower extremity, unspecified laterality- Primary Moderate persistent asthma without complication (CMS/[facility]) Ventral hernia without obstruction or gangrene Unspecified ventral hernia without mention of obstruction or gangrene Gastroesophageal reflux disease, unspecified whether esophagitis present Morbid obesity with BMI of 50.0-59.9, adult ([facility]) Aura's thyroiditis ([facility] Chronic lymphocytic thyroiditis Anxiety and depression ([facility]) Gastroesophageal reflux disease, unspecified whether esophagitis present- Primary Aura's thyroiditis ([facility]) Chronic lymphocytic thyroiditis Moderate persistent asthma without complication ([facility]) Morbid obesity with BMI of 50.0-59.9, adult ([facility]) Arthritis of knee, right Aura's thyroiditis ([facility])- Primary Chronic lymphocytic thyroiditis Morbid obesity with BMI of 50.0-59.9, adult ([facility]) Psoriasis ([facility]) Other psoriasis Anxiety and depression ([facility]) Gastroesophageal reflux disease, unspecified whether esophagitis present Moderate persistent asthma without complication ([facility]) Arthritis of knee, right Anxiety and depression ([facility])- Primary Mild persistent asthma without complication ([facility]) Gastroesophageal reflux disease, unspecified whether esophagitis present Morbid obesity with BMI of 50.0-59.9, adult ([facility]/HCC) Aura's thyroiditis (CMS/HCC) Chronic lymphocytic thyroiditis Morbid [...] of right knee documented in this encounter [facility] HealthcareEvaluation note* Diagnosis Anxiety and depression (CMS/HCC)- Primary Elevated glucose Other abnormal glucose Hypomagnesemia Disorders of magnesium metabolism Gastroesophageal reflux disease, unspecified whether esophagitis present Morbid obesity with BMI of 50.0-59.9, adult ([facility]) Moderate persistent asthma without complication (CMS/HCC) Chronic pain of right knee Anxiety and depression (CMS/HCC)- Primary Abnormal TSH Chronic pain of right knee Non-recurrent acute suppurative otitis media of left ear without spontaneous rupture of tympanic membrane Aura's thyroiditis (CMS/HCC)- Primary Chronic lymphocytic thyroiditis Anxiety and depression (CMS/[facility]) Morbid obesity with BMI of 50.0-59.9, adult ([facility]) Arthritis of knee, right Cellulitis of lower extremity, unspecified laterality- Primary Moderate persistent asthma without complication (CMS/[facility]) Ventral hernia without obstruction or gangrene Unspecified ventral hernia without mention of obstruction or gangrene Gastroesophageal reflux disease, unspecified whether esophagitis present Morbid obesity with BMI of 50.0-59.9, adult ([facility]) Aura's thyroiditis ([facility]/HCC) Chronic lymphocytic thyroiditis Anxiety and depression (CMS/[facility]) Gastroesophageal reflux disease, unspecified whether esophagitis present- Primary Aura's thyroiditis (CMS/HCC) Chronic lymphocytic thyroiditis Moderate persistent asthma without complication (CMS/HCC) Morbid obesity with BMI of 50.0-59.9, adult ([facility]) Arthritis of knee, right Aura's thyroiditis (CMS/HCC)- Primary Chronic lymphocytic thyroiditis Morbid obesity with BMI of 50.0-59.9, adult ([facility]) Psoriasis (CMS/[facility]) Other psoriasis Anxiety and depression (CMS/[facility]) Gastroesophageal reflux disease, unspecified whether esophagitis present [...] (CMS/HCC) Body mass index (BMI) 45.0-49.9, adult (CMS/[facility]) Mild persistent asthma without complication (CMS/HCC) Gastroesophageal reflux disease, unspecified whether esophagitis present Anxiety and depression (CMS/HCC) Hypomagnesemia Disorders of magnesium metabolism Elevated glucose Other abnormal glucose Moderate persistent asthma without complication (CMS/HCC) Moderate persistent asthma, uncomplicated (CMS/[facility]) Other constipation documented in this encounter [facility] HealthcareEvaluation note* Diagnosis Anxiety and depression (CMS/HCC)- Primary Elevated glucose Other abnormal glucose Hypomagnesemia Disorders of magnesium metabolism Gastroesophageal reflux disease, unspecified whether esophagitis present Morbid obesity with BMI of 50.0-59.9, adult ([facility]) Moderate persistent asthma without complication (CMS/HCC) Chronic pain of right knee Anxiety and depression (CMS/HCC)- Primary Abnormal TSH Chronic pain of right knee Non-recurrent acute suppurative otitis media of left ear without spontaneous rupture of tympanic membrane Aura's thyroiditis (CMS/HCC)- Primary Chronic lymphocytic thyroiditis Anxiety and depression (CMS/HCC) Morbid obesity with BMI of 50.0-59.9, adult ([facility]/HCC) Arthritis of knee, right Cellulitis of lower extremity, unspecified laterality- Primary Moderate persistent asthma without complication (CMS/HCC) Ventral hernia without obstruction or gangrene Unspecified ventral hernia without mention of obstruction or gangrene Gastroesophageal reflux disease, unspecified whether esophagitis present Morbid obesity with BMI of 50.0-59.9, adult (CMS/HCC) Aura's thyroiditis (CMS/HCC) Chronic lymphocytic thyroiditis Anxiety and depression (CMS/[facility]) Gastroesophageal reflux disease, unspecified whether esophagitis present- Primary Aura's thyroiditis (CMS/HCC) Chronic lymphocytic thyroiditis Moderate persistent asthma without complication (CMS/HCC) Morbid obesity with BMI of 50.0-59.9, adult ([facility]/HCC) Arthritis of knee, right Aura's thyroiditis (CMS/HCC)- [...] Morbid obesity with BMI of 50.0-59.9, adult ([facility]) Aura's thyroiditis (CMS/[facility]) Chronic lymphocytic thyroiditis Morbid obesity due to excess calories (CMS/HCC) Moderate persistent asthma without complication (CMS/[facility]) Encounter for screening mammogram for malignant neoplasm of breast Arthritis of knee, right Psoriasis ([facility])- Primary Other psoriasis 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CMS/[facility])- Primary Morbid (severe) obesity due to excess calories ([facility]) Body mass index (BMI) 45.0-49.9, adult ([facility]) Mild persistent asthma without complication ([facility]) Gastroesophageal reflux disease, unspecified whether esophagitis present Anxiety and depression ([facility]) Hypomagnesemia Disorders of magnesium metabolism Elevated glucose Other abnormal glucose Moderate persistent asthma without complication (CMS/HCC) Moderate persistent asthma, uncomplicated (CMS/[facility]) Other constipation Acute postoperative pain of right knee- Primary Status post right knee replacement Aftercare following right knee joint replacement surgery Arthritis of knee, right Presence of right artificial knee joint documented in this encounter [facility]Evaluation note* Diagnosis Anxiety and depression ([facility]/HCC)- Primary Elevated glucose Other abnormal glucose Hypomagnesemia Disorders of magnesium metabolism Gastroesophageal reflux disease, unspecified whether esophagitis present Morbid obesity with BMI of 50.0-59.9, adult ([facility]) Moderate persistent asthma without complication (CMS/HCC) Chronic pain of right knee Anxiety and depression (CMS/HCC)- Primary Abnormal TSH Chronic pain of right knee Non-recurrent acute suppurative otitis media of left ear without spontaneous rupture of tympanic membrane Aura's thyroiditis (CMS/HCC)- Primary Chronic lymphocytic thyroiditis Anxiety and depression (CMS/HCC) Morbid obesity with BMI of 50.0-59.9, adult ([facility]) Arthritis of knee, right Cellulitis of lower extremity, unspecified laterality- Primary Moderate persistent asthma without complication ([facility]) Ventral hernia without obstruction or gangrene Unspecified ventral hernia without mention of obstruction or gangrene Gastroesophageal reflux disease, unspecified whether esophagitis present Morbid obesity with BMI of 50.0-59.9, adult ([facility]) Aura's thyroiditis ([facility] Chronic lymphocytic thyroiditis Anxiety and depression ([facility]) Gastroesophageal reflux disease, unspecified whether esophagitis present- Primary Aura's thyroiditis ([facility] Chronic lymphocytic thyroiditis Moderate persistent asthma without complication ([facility]) Morbid obesity with BMI of 50.0-59.9, adult ([facility]) Arthritis of knee, right Aura's thyroiditis ([facility])- Primary Chronic lymphocytic thyroiditis Morbid obesity with BMI of 50.0-59.9, adult ([facility]) Psoriasis ([facility]) Other psoriasis Anxiety and depression ([facility]) Gastroesophageal reflux disease, unspecified whether esophagitis present Moderate persistent asthma without complication ([facility]) Arthritis of knee, right Anxiety and depression ([facility])- Primary Mild persistent asthma without complication ([facility]) Gastroesophageal reflux disease, unspecified whether esophagitis present Morbid obesity with BMI of 50.0-59.9, adult ([facility]) Aura's thyroiditis ([facility]) Chronic lymphocytic thyroiditis Morbid obesity due to excess calories ([facility] Moderate persistent asthma without complication ([facility]) Encounter for screening mammogram for malignant neoplasm of breast Arthritis of knee, right Psoriasis ([facility])- Primary Other psoriasis 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[facility])- Primary Morbid (severe) obesity due to excess calories ([facility]) Body mass index (BMI) 45.0-49.9, adult ([facility]) Mild persistent asthma without complication ([facility]) Gastroesophageal reflux disease, unspecified whether esophagitis present Anxiety and depression ([facility]) Hypomagnesemia Disorders of magnesium metabolism Elevated glucose Other abnormal glucose Moderate persistent asthma without complication (CMS/[facility]) Moderate persistent asthma, uncomplicated ([facility]) Other constipation Hypothyroidism, unspecified type ([facility])- Primary Hypomagnesemia Disorders of magnesium metabolism documented in this encounter [facility]* Diagnosis Anxiety and depression (CMS/HCC)- Primary Elevated glucose Other abnormal glucose Hypomagnesemia Disorders of magnesium metabolism Gastroesophageal reflux disease, unspecified whether esophagitis present Morbid obesity with BMI of 50.0-59.9, adult ([facility]) Moderate persistent asthma without complication (CMS/HCC) Chronic pain of right knee Anxiety and depression (CMS/HCC)- Primary Abnormal TSH Chronic pain of right knee Non-recurrent acute suppurative otitis media of left ear without spontaneous rupture of tympanic membrane Aura's thyroiditis (CMS/HCC)- Primary Chronic lymphocytic thyroiditis Anxiety and depression (CMS/HCC) Morbid obesity with BMI of 50.0-59.9, adult ([facility]) Arthritis of knee, right Cellulitis of lower extremity, unspecified laterality- Primary Moderate persistent asthma without complication (CMS/HCC) Ventral hernia without obstruction or gangrene Unspecified ventral hernia without mention of obstruction or gangrene Gastroesophageal reflux disease, unspecified whether esophagitis present Morbid obesity with BMI of 50.0-59.9, adult ([facility]/HCC) Aura's thyroiditis (CMS/HCC) Chronic lymphocytic thyroiditis Anxiety and depression (CMS/[facility]) Gastroesophageal reflux disease, unspecified whether esophagitis present- Primary Aura's thyroiditis (CMS/HCC) Chronic lymphocytic thyroiditis Moderate persistent asthma without complication (CMS/HCC) Morbid obesity with BMI of 50.0-59.9, adult ([facility]/HCC) Arthritis of knee, right Aura's thyroiditis (CMS/HCC)- [...] Morbid obesity with BMI of 50.0-59.9, adult ([facility]/HCC) Aura's thyroiditis (CMS/HCC) Chronic lymphocytic thyroiditis Morbid obesity due to excess calories (CMS/HCC) Moderate persistent asthma without complication (CMS/HCC) Encounter for screening mammogram for malignant neoplasm of breast Arthritis of knee, right Psoriasis (CMS/HCC)- Primary Other psoriasis 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 Morbid (severe) obesity due to excess calories (CMS/HCC) Body mass index (BMI) 45.0-49.9, adult (CMS/[facility]) Mild persistent asthma without complication (CMS/HCC) Gastroesophageal reflux disease, unspecified whether esophagitis present Anxiety and depression (CMS/HCC) Hypomagnesemia Disorders of magnesium metabolism Elevated glucose Other abnormal glucose Moderate persistent asthma without complication (CMS/HCC) Moderate persistent asthma, uncomplicated (CMS/[facility]) Other constipation Hypothyroidism, unspecified type (CMS/[facility])- Primary Hypomagnesemia Disorders of magnesium metabolism Acute [...] Morbid obesity with BMI of 50.0-59.9, adult ([facility]) Moderate persistent asthma without complication (CMS/[facility]) Chronic pain of right knee Anxiety and depression (CMS/[facility])- Primary Abnormal TSH Chronic pain of right knee Non-recurrent acute suppurative otitis media of left ear without spontaneous rupture of tympanic membrane Aura's thyroiditis ([facility]/HCC)- Primary Chronic lymphocytic thyroiditis Anxiety and depression ([facility]) Morbid obesity with BMI of 50.0-59.9, adult ([facility]) Arthritis of knee, right Cellulitis of lower extremity, unspecified laterality- Primary Moderate persistent asthma without complication (CMS/[facility]) Ventral hernia without obstruction or gangrene Unspecified ventral hernia without mention of obstruction or gangrene Gastroesophageal reflux disease, unspecified whether esophagitis present Morbid obesity with BMI of 50.0-59.9, adult ([facility]) Aura's thyroiditis (CMS/HCC) Chronic lymphocytic thyroiditis Anxiety and depression (CMS/[facility]) Gastroesophageal reflux disease, unspecified whether esophagitis present- Primary Aura's thyroiditis (CMS/HCC) Chronic lymphocytic thyroiditis Moderate persistent asthma without complication (CMS/HCC) Morbid obesity with BMI of 50.0-59.9, adult ([facility]) Arthritis of knee, right Aura's thyroiditis (CMS/HCC)- [...] neoplasm of breast documented in this encounter [facility] HealthcareEvaluation note* Diagnosis Anxiety and depression [...] Morbid obesity with BMI of 50.0-59.9, adult ([facility]) Aura's thyroiditis (CMS/HCC) Chronic lymphocytic thyroiditis Anxiety and depression (CMS/HCC) Gastroesophageal reflux disease, unspecified whether esophagitis present- Primary Aura's thyroiditis (CMS/HCC) Chronic lymphocytic thyroiditis Moderate persistent asthma without complication (CMS/HCC) Morbid obesity with BMI of 50.0-59.9, adult ([facility]) Arthritis of knee, right Aura's thyroiditis ([facility])- Primary Chronic lymphocytic thyroiditis Morbid obesity with BMI of 50.0-59.9, adult ([facility]) Psoriasis Other psoriasis Anxiety and depression ([facility]) Gastroesophageal reflux disease, unspecified whether esophagitis present Moderate persistent asthma without complication (CMS/HCC) Arthritis of knee, right Anxiety and depression ([facility]/HCC)- Primary Mild persistent asthma without complication ([facility]) Gastroesophageal reflux disease, unspecified whether esophagitis present Morbid obesity with BMI of 50.0-59.9, adult ([facility]) Aura's thyroiditis ([facility]) Chronic lymphocytic thyroiditis Morbid obesity due to excess calories ([facility]) Moderate persistent asthma without complication ([facility]) Encounter for screening mammogram for malignant neoplasm of breast Arthritis of knee, right Psoriasis- Primary Other psoriasis 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[facility]/HCC)- Primary Morbid (severe) obesity due to excess calories ([facility]) Body mass index (BMI) 45.0-49.9, adult ([facility]) Mild persistent asthma without complication (CMS/HCC) Gastroesophageal reflux disease, unspecified whether esophagitis present Anxiety and depression (CMS/HCC) Hypomagnesemia Disorders of magnesium metabolism Elevated glucose Other abnormal glucose Moderate persistent asthma without complication (CMS/HCC) Moderate persistent asthma, uncomplicated ([facility]) Other constipation Hypothyroidism, unspecified type ([facility])- Primary Hypomagnesemia Disorders of magnesium metabolism Anxiety and depression (CMS/HCC) documented in this encounter [facility] HealthcareEvaluation note* Diagnosis Anxiety and depression (CMS/HCC)- Primary Elevated glucose Other abnormal glucose Hypomagnesemia Disorders of magnesium metabolism Gastroesophageal reflux disease, unspecified whether esophagitis present Morbid obesity with BMI of 50.0-59.9, adult ([facility]) Moderate persistent asthma without complication ([facility]) Chronic pain of right knee Anxiety and depression ([facility])- Primary Abnormal TSH Chronic pain of right knee Non-recurrent acute suppurative otitis media of left ear without spontaneous rupture of tympanic membrane Aura's thyroiditis ([facility]/HCC)- Primary Chronic lymphocytic thyroiditis Anxiety and depression ([facility]) Morbid obesity with BMI of 50.0-59.9, adult ([facility]) Arthritis of knee, right Cellulitis of lower extremity, unspecified laterality- Primary Moderate persistent asthma without complication ([facility]) Ventral hernia without obstruction or gangrene Unspecified ventral hernia without mention of obstruction or gangrene Gastroesophageal reflux disease, unspecified whether esophagitis present Morbid obesity with BMI of 50.0-59.9, adult ([facility]) Aura's thyroiditis ([facility] Chronic lymphocytic thyroiditis Anxiety and depression ([facility]) Gastroesophageal reflux disease, unspecified whether esophagitis present- Primary Aura's thyroiditis ([facility]) Chronic lymphocytic thyroiditis Moderate persistent asthma without complication ([facility]) Morbid obesity with BMI of 50.0-59.9, adult ([facility]) Arthritis of knee, right Aura's thyroiditis ([facility]/HCC)- Primary Chronic lymphocytic thyroiditis Morbid obesity with BMI of 50.0-59.9, adult ([facility]) Psoriasis Other psoriasis Anxiety and depression ([facility]) Gastroesophageal reflux disease, unspecified whether esophagitis present Moderate persistent asthma without complication ([facility]) Arthritis of knee, right Anxiety and depression ([facility]/HCC)- Primary Mild persistent asthma without complication ([facility]) Gastroesophageal reflux disease, unspecified whether esophagitis present Morbid obesity with BMI of 50.0-59.9, adult ([facility]) Aura's thyroiditis ([facility]) Chronic lymphocytic thyroiditis Morbid obesity due to excess calories ([facility]) Moderate persistent asthma without complication ([facility]) Encounter for screening mammogram for malignant neoplasm of breast Arthritis of knee, right Psoriasis- Primary Other psoriasis 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[facility])- Primary Morbid (severe) obesity due to excess calories ([facility]) Body mass index (BMI) 45.0-49.9, adult ([facility]) Mild persistent asthma without complication ([facility]) Gastroesophageal reflux disease, unspecified whether esophagitis present Anxiety and depression ([facility]) Hypomagnesemia Disorders of magnesium metabolism Elevated glucose Other abnormal glucose Moderate persistent asthma without complication ([facility]) Moderate persistent asthma, uncomplicated ([facility]) Other constipation Hypothyroidism, unspecified type ([facility])- Primary Hypomagnesemia Disorders of magnesium metabolism Heart palpitations- Primary Palpitations Gastroesophageal reflux disease, unspecified whether esophagitis present Morbid (severe) obesity due to excess calories ([facility]) Hypomagnesemia Disorders of magnesium metabolism Aftercare following right knee joint replacement surgery- Primary documented in this encounter [facility] HealthcareEvaluation note* Diagnosis Anxiety and depression ([facility])- Primary Elevated glucose Other abnormal glucose Hypomagnesemia Disorders of magnesium metabolism Gastroesophageal reflux disease, unspecified whether esophagitis present Morbid obesity with BMI of 50.0-59.9, adult ([facility]) Moderate persistent asthma without complication ([facility] Chronic pain of right knee Anxiety and depression ([facility])- Primary Abnormal TSH Chronic pain of right knee Non-recurrent acute suppurative otitis media of left ear without spontaneous rupture of tympanic membrane Aura's thyroiditis ([facility])- Primary Chronic lymphocytic thyroiditis Anxiety and depression ([facility]) Morbid obesity with BMI of 50.0-59.9, adult ([facility]) Arthritis of knee, right Cellulitis of lower extremity, unspecified laterality- Primary Moderate persistent asthma without complication ([facility]) Ventral hernia without obstruction or gangrene Unspecified ventral hernia without mention of obstruction or gangrene Gastroesophageal reflux disease, unspecified whether esophagitis present Morbid obesity with BMI of 50.0-59.9, adult ([facility]) Aura's thyroiditis ([facility]) Chronic lymphocytic thyroiditis Anxiety and depression ([facility]) Gastroesophageal reflux disease, unspecified whether esophagitis present- Primary Aura's thyroiditis ([facility] Chronic lymphocytic thyroiditis Moderate persistent asthma without complication ([facility]) Morbid obesity with BMI of 50.0-59.9, adult ([facility]) Arthritis of knee, right Aura's thyroiditis ([facility])- Primary Chronic lymphocytic thyroiditis Morbid obesity with BMI of 50.0-59.9, adult ([facility]) Psoriasis Other psoriasis Anxiety and depression ([facility]) Gastroesophageal reflux disease, unspecified whether esophagitis present Moderate persistent asthma without complication (CMS/HCC) Arthritis of knee, right Anxiety and depression (CMS/HCC)- Primary Mild persistent asthma without complication (CMS/HCC) Gastroesophageal reflux disease, unspecified whether esophagitis present Morbid obesity with BMI of 50.0-59.9, adult ([facility]) Aura's thyroiditis (CMS/HCC) Chronic lymphocytic thyroiditis Morbid obesity due to excess calories (CMS/[facility]) Moderate persistent asthma without complication ([facility]) Encounter for screening mammogram for malignant neoplasm of breast Arthritis of knee, right Psoriasis- Primary Other psoriasis 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 Morbid (severe) obesity due to excess calories (CMS/[facility]) Body mass index (BMI) 45.0-49.9, adult ([facility]) Mild persistent asthma without complication (CMS/[facility]) Gastroesophageal reflux disease, unspecified whether esophagitis present Anxiety and depression (CMS/[facility]) Hypomagnesemia Disorders of magnesium metabolism Elevated glucose Other abnormal glucose Moderate persistent asthma without complication (CMS/HCC) Moderate persistent asthma, uncomplicated (CMS/[facility]) Other constipation Hypothyroidism, unspecified type (CMS/[facility])- Primary Hypomagnesemia Disorders of magnesium metabolism Heart palpitations- Primary Palpitations Gastroesophageal reflux disease, unspecified whether esophagitis present Morbid (severe) obesity due to excess calories ([facility]) Hypomagnesemia Disorders of magnesium metabolism Aftercare following right knee joint replacement surgery- Primary documented in this encounter [facility]* Diagnosis Anxiety and depression (CMS/[facility])- Primary Elevated glucose Other abnormal glucose Hypomagnesemia Disorders of magnesium metabolism Gastroesophageal reflux disease, unspecified whether esophagitis present Morbid obesity with BMI of 50.0-59.9, adult ([facility]) Moderate persistent asthma without complication (CMS/HCC) Chronic pain of right knee Anxiety and depression (CMS/HCC)- Primary Abnormal TSH Chronic pain of right knee Non-recurrent acute suppurative otitis media of left ear without spontaneous rupture of tympanic membrane Aura's thyroiditis (CMS/HCC)- Primary Chronic lymphocytic thyroiditis Anxiety and depression (CMS/HCC) Morbid obesity with BMI of 50.0-59.9, adult ([facility]) Arthritis of knee, right Cellulitis of lower extremity, unspecified laterality- Primary Moderate persistent asthma without complication (CMS/HCC) Ventral hernia without obstruction or gangrene Unspecified ventral hernia without mention of obstruction or gangrene Gastroesophageal reflux disease, unspecified whether esophagitis present Morbid obesity with BMI of 50.0-59.9, adult ([facility]) Aura's thyroiditis ([facility]/HCC) Chronic lymphocytic thyroiditis Anxiety and depression ([facility]) Gastroesophageal reflux disease, unspecified whether esophagitis present- Primary Aura's thyroiditis ([facility]/HCC) Chronic lymphocytic thyroiditis Moderate persistent asthma without complication ([facility]/HCC) Morbid obesity with BMI of 50.0-59.9, adult ([facility]) Arthritis of knee, right Aura's thyroiditis ([facility]/HCC)- Primary Chronic lymphocytic thyroiditis Morbid obesity with BMI of 50.0-59.9, adult ([facility]) Psoriasis Other psoriasis Anxiety and depression ([facility]) Gastroesophageal reflux disease, unspecified whether esophagitis present Moderate persistent asthma without complication (CMS/HCC) Arthritis of knee, right Anxiety and depression ([facility]/HCC)- Primary Mild persistent asthma without complication ([facility]) Gastroesophageal reflux disease, unspecified whether esophagitis present Morbid obesity with BMI of 50.0-59.9, adult ([facility]) Aura's thyroiditis ([facility]) Chronic lymphocytic thyroiditis Morbid obesity due to excess calories ([facility]) Moderate persistent asthma without complication ([facility]) Encounter for screening mammogram for malignant neoplasm of breast Arthritis of knee, right Psoriasis- Primary Other psoriasis 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[facility]/HCC)- Primary Morbid (severe) obesity due to excess calories ([facility]) Body mass index (BMI) 45.0-49.9, adult ([facility]) Mild persistent asthma without complication ([facility]) Gastroesophageal reflux disease, unspecified whether esophagitis present Anxiety and depression ([facility]) Hypomagnesemia Disorders of magnesium metabolism Elevated glucose Other abnormal glucose Moderate persistent asthma without complication ([facility]/HCC) Moderate persistent asthma, uncomplicated ([facility]) Other constipation Hypothyroidism, unspecified type ([facility])- Primary Hypomagnesemia Disorders of magnesium metabolism Heart palpitations- Primary Palpitations Gastroesophageal reflux disease, unspecified whether esophagitis present Morbid (severe) obesity due to excess calories ([facility]) Hypomagnesemia Disorders of magnesium metabolism Hypomagnesemia- Primary Disorders of magnesium metabolism documented in this encounter [facility]* Diagnosis Anxiety and depression ([facility]/HCC)- Primary Elevated glucose Other abnormal glucose Hypomagnesemia Disorders of magnesium metabolism Gastroesophageal reflux disease, unspecified whether esophagitis present Morbid obesity with BMI of 50.0-59.9, adult ([facility]) Moderate persistent asthma without complication ([facility]) Chronic pain of right knee Anxiety and depression ([facility])- Primary Abnormal TSH Chronic pain of right knee Non-recurrent acute suppurative otitis media of left ear without spontaneous rupture of tympanic membrane Aura's thyroiditis ([facility])- Primary Chronic lymphocytic thyroiditis Anxiety and depression ([facility]) Morbid obesity with BMI of 50.0-59.9, adult ([facility]) Arthritis of knee, right Cellulitis of lower extremity, unspecified laterality- Primary Moderate persistent asthma without complication ([facility]) Ventral hernia without obstruction or gangrene Unspecified ventral hernia without mention of obstruction or gangrene Gastroesophageal reflux disease, unspecified whether esophagitis present Morbid obesity with BMI of 50.0-59.9, adult ([facility]) Aura's thyroiditis ([facility] Chronic lymphocytic thyroiditis Anxiety and depression ([facility]) Gastroesophageal reflux disease, unspecified whether esophagitis present- Primary Aura's thyroiditis ([facility] Chronic lymphocytic thyroiditis Moderate persistent asthma without complication ([facility]) Morbid obesity with BMI of 50.0-59.9, adult ([facility]) Arthritis of knee, right Aura's thyroiditis ([facility])- Primary Chronic lymphocytic thyroiditis Morbid obesity with BMI of 50.0-59.9, adult ([facility]) Psoriasis Other psoriasis Anxiety and depression ([facility]) Gastroesophageal reflux disease, unspecified whether esophagitis present Moderate persistent asthma without complication ([facility]) Arthritis of knee, right Anxiety and depression ([facility])- Primary Mild persistent asthma without complication ([facility]) Gastroesophageal reflux disease, unspecified whether esophagitis present Morbid obesity with BMI of 50.0-59.9, adult ([facility] Aura's thyroiditis ([facility] Chronic lymphocytic thyroiditis Morbid obesity due to excess calories ([facility]) Moderate persistent asthma without complication ([facility]) Encounter for screening mammogram for malignant neoplasm of breast Arthritis of knee, right Psoriasis- Primary Other psoriasis 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[facility])- Primary Morbid (severe) obesity due to excess calories ([facility]) Body mass index (BMI) 45.0-49.9, adult ([facility]) Mild persistent asthma without complication (CMS/HCC) Gastroesophageal reflux disease, unspecified whether esophagitis present Anxiety and depression (CMS/HCC) Hypomagnesemia Disorders of magnesium metabolism Elevated glucose Other abnormal glucose Moderate persistent asthma without complication (CMS/HCC) Moderate persistent asthma, uncomplicated (CMS/[facility]) Other constipation Hypothyroidism, unspecified type (CMS/[facility])- Primary Hypomagnesemia Disorders of magnesium metabolism Heart palpitations- Primary Palpitations Gastroesophageal reflux disease, unspecified whether esophagitis present Morbid (severe) obesity due to excess calories (CMS/[facility]) Hypomagnesemia Disorders of magnesium metabolism Hypothyroidism, unspecified type (CMS/[facility])- Primary documented in this encounter [facility]* Diagnosis Anxiety and depression (CMS/[facility])- Primary Elevated glucose Other abnormal glucose Hypomagnesemia Disorders of magnesium metabolism Gastroesophageal reflux disease, unspecified whether esophagitis present Morbid obesity with BMI of 50.0-59.9, adult ([facility]) Moderate persistent asthma without complication (CMS/[facility]) Chronic pain of right knee Anxiety and depression ([facility])- Primary Abnormal TSH Chronic pain of right knee Non-recurrent acute suppurative otitis media of left ear without spontaneous rupture of tympanic membrane Aura's thyroiditis ([facility])- Primary Chronic lymphocytic thyroiditis Anxiety and depression ([facility]) Morbid obesity with BMI of 50.0-59.9, adult ([facility]) Arthritis of knee, right Cellulitis of lower extremity, unspecified laterality- Primary Moderate persistent asthma without complication ([facility]) Ventral hernia without obstruction or gangrene Unspecified ventral hernia without mention of obstruction or gangrene Gastroesophageal reflux disease, unspecified whether esophagitis present Morbid obesity with BMI of 50.0-59.9, adult ([facility]) Aura's thyroiditis ([facility]) Chronic lymphocytic thyroiditis Anxiety and depression ([facility]) Gastroesophageal reflux disease, unspecified whether esophagitis present- Primary Aura's thyroiditis (CMS/HCC) Chronic lymphocytic thyroiditis Moderate persistent asthma without complication ([facility]) Morbid obesity with BMI of 50.0-59.9, adult ([facility]) Arthritis of knee, right Aura's thyroiditis ([facility])- Primary Chronic lymphocytic thyroiditis Morbid obesity with BMI of 50.0-59.9, adult ([facility]) Psoriasis Other psoriasis Anxiety and depression (CMS/[facility]) Gastroesophageal reflux disease, unspecified whether esophagitis present Moderate persistent asthma without complication (CMS/HCC) Arthritis of knee, right Anxiety and depression ([facility]/HCC)- Primary Mild persistent asthma without complication (CMS/HCC) Gastroesophageal reflux disease, unspecified whether esophagitis present Morbid obesity with BMI of 50.0-59.9, adult ([facility]) Aura's thyroiditis ([facility]) Chronic lymphocytic thyroiditis Morbid obesity due to excess calories ([facility]) Moderate persistent asthma without complication ([facility]) Encounter for screening mammogram for malignant neoplasm of breast Arthritis of knee, right Psoriasis- Primary Other psoriasis 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[facility])- Primary Morbid (severe) obesity due to excess calories ([facility]) Body mass index (BMI) 45.0-49.9, adult ([facility]) Mild persistent asthma without complication ([facility]) Gastroesophageal reflux disease, unspecified whether esophagitis present Anxiety and depression (CMS/[facility]) Hypomagnesemia Disorders of magnesium metabolism Elevated glucose Other abnormal glucose Moderate persistent asthma without complication (CMS/HCC) Moderate persistent asthma, uncomplicated ([facility]) Other constipation Hypothyroidism, unspecified type ([facility])- Primary Hypomagnesemia Disorders of magnesium metabolism Heart palpitations- Primary Palpitations Gastroesophageal reflux disease, unspecified whether esophagitis present Morbid (severe) obesity due to excess calories ([facility]) Hypomagnesemia Disorders of magnesium metabolism Heart palpitations- Primary Palpitations Morbid (severe) obesity due to excess calories ([facility]) Ventricular arrhythmia Unspecified cardiac dysrhythmia Abnormal electrocardiogram (ECG) (EKG) documented in this encounter [facility]* Diagnosis Anxiety and depression ([facility])- Primary Elevated glucose Other abnormal glucose Hypomagnesemia Disorders of magnesium metabolism Gastroesophageal reflux disease, unspecified whether esophagitis present Morbid obesity with BMI of 50.0-59.9, adult ([facility]) Moderate persistent asthma without complication ([facility]/HCC) Chronic pain of right knee Anxiety and depression (CMS/HCC)- Primary Abnormal TSH Chronic pain of right knee Non-recurrent acute suppurative otitis media of left ear without spontaneous rupture of tympanic membrane Aura's thyroiditis ([facility])- Primary Chronic lymphocytic thyroiditis Anxiety and depression ([facility]) Morbid obesity with BMI of 50.0-59.9, adult ([facility]) Arthritis of knee, right Cellulitis of lower extremity, unspecified laterality- Primary Moderate persistent asthma without complication ([facility]) Ventral hernia without obstruction or gangrene Unspecified ventral hernia without mention of obstruction or gangrene Gastroesophageal reflux disease, unspecified whether esophagitis present Morbid obesity with BMI of 50.0-59.9, adult ([facility]) Aura's thyroiditis ([facility]) Chronic lymphocytic thyroiditis Anxiety and depression ([facility]) Gastroesophageal reflux disease, unspecified whether esophagitis present- Primary Aura's thyroiditis ([facility] Chronic lymphocytic thyroiditis Moderate persistent asthma without complication ([facility]) Morbid obesity with BMI of 50.0-59.9, adult ([facility]) Arthritis of knee, right Aura's thyroiditis ([facility])- Primary Chronic lymphocytic thyroiditis Morbid obesity with BMI of 50.0-59.9, adult ([facility]) Psoriasis Other psoriasis Anxiety and depression ([facility]) Gastroesophageal reflux disease, unspecified whether esophagitis present Moderate persistent asthma without complication ([facility]) Arthritis of knee, right Anxiety and depression ([facility])- Primary Mild persistent asthma without complication ([facility]) Gastroesophageal reflux disease, unspecified whether esophagitis present Morbid obesity with BMI of 50.0-59.9, adult ([facility]) Aura's thyroiditis ([facility]) Chronic lymphocytic thyroiditis Morbid obesity due to excess calories ([facility]) Moderate persistent asthma without complication ([facility]) Encounter for screening mammogram for malignant neoplasm of breast Arthritis of knee, right Psoriasis- Primary Other psoriasis 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[facility])- Primary Morbid (severe) obesity due to excess calories ([facility]) Body mass index (BMI) 45.0-49.9, adult ([facility]) Mild persistent asthma without complication ([facility]) Gastroesophageal reflux disease, unspecified whether esophagitis present Anxiety and depression ([facility]) Hypomagnesemia Disorders of magnesium metabolism Elevated glucose Other abnormal glucose Moderate persistent asthma without complication ([facility]) Moderate persistent asthma, uncomplicated ([facility]) Other constipation Hypothyroidism, unspecified type ([facility])- Primary Hypomagnesemia Disorders of magnesium metabolism Heart palpitations- Primary Palpitations Gastroesophageal reflux disease, unspecified whether esophagitis present Morbid (severe) obesity due to excess calories ([facility]) Hypomagnesemia Disorders of magnesium metabolism Heart palpitations- Primary Palpitations Ventricular arrhythmia Unspecified cardiac dysrhythmia documented in this encounter [facility]* Diagnosis Anxiety and depression ([facility]/HCC)- Primary Elevated glucose Other abnormal glucose Hypomagnesemia Disorders of magnesium metabolism Gastroesophageal reflux disease, unspecified whether esophagitis present Morbid obesity with BMI of 50.0-59.9, adult ([facility]) Moderate persistent asthma without complication ([facility] Chronic pain of right knee Anxiety and depression ([facility])- Primary Abnormal TSH Chronic pain of right knee Non-recurrent acute suppurative otitis media of left ear without spontaneous rupture of tympanic membrane Aura's thyroiditis ([facility])- Primary Chronic lymphocytic thyroiditis Anxiety and depression ([facility]) Morbid obesity with BMI of 50.0-59.9, adult ([facility]) Arthritis of knee, right Cellulitis of lower extremity, unspecified laterality- Primary Moderate persistent asthma without complication ([facility]) Ventral hernia without obstruction or gangrene Unspecified ventral hernia without mention of obstruction or gangrene Gastroesophageal reflux disease, unspecified whether esophagitis present Morbid obesity with BMI of 50.0-59.9, adult ([facility]) Aura's thyroiditis ([facility] Chronic lymphocytic thyroiditis Anxiety and depression ([facility]) Gastroesophageal reflux disease, unspecified whether esophagitis present- Primary Aura's thyroiditis ([facility] Chronic lymphocytic thyroiditis Moderate persistent asthma without complication ([facility]) Morbid obesity with BMI of 50.0-59.9, adult ([facility]) Arthritis of knee, right Aura's thyroiditis ([facility])- Primary Chronic lymphocytic thyroiditis Morbid obesity with BMI of 50.0-59.9, adult ([facility]) Psoriasis Other psoriasis Anxiety and depression ([facility]) Gastroesophageal reflux disease, unspecified whether esophagitis present Moderate persistent asthma without complication ([facility]) Arthritis of knee, right Anxiety and depression ([facility])- Primary Mild persistent asthma without complication ([facility]) Gastroesophageal reflux disease, unspecified whether esophagitis present Morbid obesity with BMI of 50.0-59.9, adult ([facility]) Aura's thyroiditis ([facility]) Chronic lymphocytic thyroiditis Morbid obesity due to excess calories (CMS/HCC) Moderate persistent asthma without complication ([facility]/HCC) Encounter for screening mammogram for malignant neoplasm of breast Arthritis of knee, right Psoriasis- Primary Other psoriasis 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 Morbid (severe) obesity due to excess calories (CMS/HCC) Body mass index (BMI) 45.0-49.9, adult ([facility]) Mild persistent asthma without complication (CMS/HCC) Gastroesophageal reflux disease, unspecified whether esophagitis present Anxiety and depression (CMS/HCC) Hypomagnesemia Disorders of magnesium metabolism Elevated glucose Other abnormal glucose Moderate persistent asthma without complication (CMS/HCC) Moderate persistent asthma, uncomplicated (CMS/[facility]) Other constipation Hypothyroidism, unspecified type (CMS/[facility])- Primary Hypomagnesemia Disorders of magnesium metabolism Heart palpitations- Primary Palpitations Gastroesophageal reflux disease, unspecified whether esophagitis present Morbid (severe) obesity due to excess calories (CMS/[facility]) Hypomagnesemia Disorders of magnesium metabolism Hormone disorder Unspecified endocrine disorder documented in this encounter [facility]* Diagnosis Anxiety and depression (CMS/[facility])- Primary Elevated glucose Other abnormal glucose Hypomagnesemia Disorders of magnesium metabolism Gastroesophageal reflux disease, unspecified whether esophagitis present Morbid obesity with BMI of 50.0-59.9, adult ([facility]) Moderate persistent asthma without complication (CMS/HCC) Chronic pain of right knee Anxiety and depression ([facility])- Primary Abnormal TSH Chronic pain of right knee Non-recurrent acute suppurative otitis media of left ear without spontaneous rupture of tympanic membrane Aura's thyroiditis ([facility])- Primary Chronic lymphocytic thyroiditis Anxiety and depression ([facility]) Morbid obesity with BMI of 50.0-59.9, adult ([facility]) Arthritis of knee, right Cellulitis of lower extremity, unspecified laterality- Primary Moderate persistent asthma without complication ([facility]/HCC) Ventral hernia without obstruction or gangrene Unspecified ventral hernia without mention of obstruction or gangrene Gastroesophageal reflux disease, unspecified whether esophagitis present Morbid obesity with BMI of 50.0-59.9, adult ([facility]) Aura's thyroiditis (CMS/HCC) Chronic lymphocytic thyroiditis Anxiety and depression ([facility]) Gastroesophageal reflux disease, unspecified whether esophagitis present- Primary Aura's thyroiditis (CMS/HCC) Chronic lymphocytic thyroiditis Moderate persistent asthma without complication ([facility]/HCC) Morbid obesity with BMI of 50.0-59.9, adult ([facility]) Arthritis of knee, right Aura's thyroiditis (CMS/HCC)- Primary Chronic lymphocytic thyroiditis Morbid obesity with BMI of 50.0-59.9, adult ([facility]) Psoriasis Other psoriasis Anxiety and depression (CMS/[facility]) Gastroesophageal reflux disease, unspecified whether esophagitis present Moderate persistent asthma without complication (CMS/HCC) Arthritis of knee, right Anxiety and depression (CMS/HCC)- Primary Mild persistent asthma without complication (CMS/HCC) Gastroesophageal reflux disease, unspecified whether esophagitis present Morbid obesity with BMI of 50.0-59.9, adult ([facility]) Aura's thyroiditis (CMS/[facility]) Chronic lymphocytic thyroiditis Morbid obesity due to excess calories ([facility]) Moderate persistent asthma without complication ([facility]) Encounter for screening mammogram for malignant neoplasm of breast Arthritis of knee, right Psoriasis- Primary Other psoriasis 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[facility])- Primary Morbid (severe) obesity due to excess calories (CMS/[facility]) Body mass index (BMI) 45.0-49.9, adult ([facility]) Mild persistent asthma without complication (CMS/[facility]) Gastroesophageal reflux disease, unspecified whether esophagitis present Anxiety and depression (CMS/HCC) Hypomagnesemia Disorders of magnesium metabolism Elevated glucose Other abnormal glucose Moderate persistent asthma without complication (CMS/HCC) Moderate persistent asthma, uncomplicated ([facility]) Other constipation Hypothyroidism, unspecified type ([facility])- Primary Hypomagnesemia Disorders of magnesium metabolism Heart palpitations- Primary Palpitations Gastroesophageal reflux disease, unspecified whether esophagitis present Morbid (severe) obesity due to excess calories (CMS/[facility]) Hypomagnesemia Disorders of magnesium metabolism Heart palpitations- Primary Palpitations Ventricular arrhythmia Unspecified cardiac dysrhythmia Gastroesophageal reflux disease, unspecified whether esophagitis present Morbid (severe) obesity due to excess calories (CMS/[facility]) Anxiety and depression (CMS/HCC) Environmental and seasonal allergies Moderate persistent asthma without complication ([facility]/HCC) documented in this encounter [facility]* Diagnosis Anxiety and depression- Primary Elevated glucose Other abnormal glucose Hypomagnesemia Disorders of magnesium metabolism Gastroesophageal reflux disease, unspecified whether esophagitis present Morbid obesity with BMI of 50.0-59.9, [place] Moderate persistent asthma without complication (HCC) Chronic pain of right knee Anxiety and depression- Primary Abnormal TSH Chronic pain of right knee Non-recurrent acute suppurative otitis media of left ear without spontaneous rupture of tympanic membrane Aura's thyroiditis- Primary Chronic lymphocytic thyroiditis Anxiety and depression Morbid obesity with BMI of 50.0-59.9, adult [place] Arthritis of knee, right Cellulitis of lower extremity, unspecified laterality- Primary Moderate persistent asthma without complication (HCC) Ventral hernia without obstruction or gangrene Unspecified ventral hernia without mention of obstruction or gangrene Gastroesophageal reflux disease, unspecified whether esophagitis present Morbid obesity with BMI of 50.0-59.9, adult [place] Aura's thyroiditis Chronic lymphocytic thyroiditis Anxiety and depression Gastroesophageal reflux disease, unspecified whether esophagitis present- Primary Aura's thyroiditis Chronic lymphocytic thyroiditis Moderate persistent asthma without complication (HCC) Morbid obesity with BMI of 50.0-59.9, adult [place] Arthritis of knee, right Aura's thyroiditis- Primary Chronic lymphocytic thyroiditis Morbid obesity with BMI of 50.0-59.9, adult [place] Psoriasis Other psoriasis Anxiety and depression Gastroesophageal reflux disease, unspecified whether esophagitis present Moderate persistent asthma without complication (HCC) Arthritis of knee, right Anxiety and depression- Primary Mild persistent asthma without complication (HCC) Gastroesophageal reflux disease, unspecified whether esophagitis present Morbid obesity with BMI of 50.0-59.9, adult [place] Aura's thyroiditis Chronic lymphocytic thyroiditis Morbid obesity due to excess calories [place] Moderate persistent asthma without complication ([facility]) Encounter for screening mammogram for malignant neoplasm of breast Arthritis of knee, right Psoriasis- Primary Other psoriasis 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 Morbid (severe) obesity due to excess calories ([facility] Body mass index (BMI) 45.0-49.9, adult [place] Mild persistent asthma without complication (HCC) Gastroesophageal [...] Morbid (severe) obesity due to excess calories [place] Hypomagnesemia Disorders of magnesium metabolism Heart palpitations- Primary Palpitations Ventricular arrhythmia Unspecified cardiac dysrhythmia Gastroesophageal reflux disease, unspecified whether esophagitis present Morbid (severe) obesity due to excess calories ([facility] Anxiety and depression Environmental and seasonal allergies Moderate persistent asthma without complication (HCC) Environmental and seasonal allergies- Primary Mild intermittent asthma with (acute) exacerbation (HCC) documented in this encounter [facility] HealthcareEvaluation note* Diagnosis Anxiety and depression- Primary Elevated glucose Other abnormal glucose Hypomagnesemia Disorders of magnesium metabolism Gastroesophageal reflux disease, unspecified whether esophagitis present Morbid obesity with BMI of 50.0-59.9, [place] Moderate persistent asthma without complication (HCC) Chronic pain of right knee Anxiety and depression- Primary Abnormal TSH Chronic pain of right knee Non-recurrent acute suppurative otitis media of left ear without spontaneous rupture of tympanic membrane Aura's thyroiditis- Primary Chronic lymphocytic thyroiditis Anxiety and depression Morbid obesity with BMI of 50.0-59.9, adult [place] Arthritis of knee, right Cellulitis of lower extremity, unspecified laterality- Primary Moderate persistent asthma without complication (HCC) Ventral hernia without obstruction or gangrene Unspecified ventral hernia without mention of obstruction or gangrene Gastroesophageal reflux disease, unspecified whether esophagitis present Morbid obesity with BMI of 50.0-59.9, adult [place] Aura's thyroiditis Chronic lymphocytic thyroiditis Anxiety and depression Gastroesophageal reflux disease, unspecified whether esophagitis present- Primary Aura's thyroiditis Chronic lymphocytic thyroiditis Moderate persistent asthma without complication (HCC) Morbid obesity with BMI of 50.0-59.9, adult [place] Arthritis of knee, right Aura's thyroiditis- Primary Chronic lymphocytic thyroiditis Morbid obesity with BMI of 50.0-59.9, adult [place] Psoriasis Other psoriasis Anxiety and depression Gastroesophageal reflux disease, unspecified whether esophagitis present Moderate persistent asthma without complication (HCC) Arthritis of knee, right Anxiety and depression- Primary Mild persistent asthma without complication (HCC) Gastroesophageal reflux disease, unspecified whether esophagitis present Morbid obesity with BMI of 50.0-59.9, adult [place] Aura's thyroiditis Chronic lymphocytic thyroiditis Morbid obesity due to excess calories ([facility] Moderate persistent asthma without complication (HCC) Encounter for screening mammogram for malignant neoplasm of breast Arthritis of knee, right Psoriasis- Primary Other psoriasis 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 Morbid (severe) obesity due to excess calories ([facility] Body mass index (BMI) 45.0-49.9, adult [place] Mild persistent asthma without complication (HCC) Gastroesophageal [...] Morbid (severe) obesity due to excess calories [place] Hypomagnesemia Disorders of magnesium metabolism Heart palpitations- Primary Palpitations Ventricular arrhythmia Unspecified cardiac dysrhythmia Gastroesophageal reflux disease, unspecified whether esophagitis present Morbid (severe) obesity due to excess calories [place] Anxiety and depression Environmental and seasonal allergies Moderate persistent asthma without complication ([facility]) Hormone disorder- Primary Unspecified endocrine disorder documented in this encounter [facility] HealthcareEvaluation note* Diagnosis Anxiety and depression- Primary Elevated glucose Other abnormal glucose Hypomagnesemia Disorders of magnesium metabolism Gastroesophageal reflux disease, unspecified whether esophagitis present Morbid obesity with BMI of 50.0-59.9, adult [place] Moderate persistent asthma without complication (HCC) Chronic pain of right knee Anxiety and depression- Primary Abnormal TSH Chronic pain of right knee Non-recurrent acute suppurative otitis media of left ear without spontaneous rupture of tympanic membrane Aura's thyroiditis- Primary Chronic lymphocytic thyroiditis Anxiety and depression Morbid obesity with BMI of 50.0-59.9, adult [place] Arthritis of knee, right Cellulitis of lower extremity, unspecified laterality- Primary Moderate persistent asthma without complication ([facility]) Ventral hernia without obstruction or gangrene Unspecified ventral hernia without mention of obstruction or gangrene Gastroesophageal reflux disease, unspecified whether esophagitis present Morbid obesity with BMI of 50.0-59.9, adult [place] Aura's thyroiditis Chronic lymphocytic thyroiditis Anxiety and depression Gastroesophageal reflux disease, unspecified whether esophagitis present- Primary Aura's thyroiditis Chronic lymphocytic thyroiditis Moderate persistent asthma without complication (HCC) Morbid obesity with BMI of 50.0-59.9, adult [place] Arthritis of knee, right Aura's thyroiditis- Primary Chronic lymphocytic thyroiditis Morbid obesity with BMI of 50.0-59.9, adult [place] Psoriasis Other psoriasis Anxiety and depression Gastroesophageal reflux disease, unspecified whether esophagitis present Moderate persistent asthma without complication (HCC) Arthritis of knee, right Anxiety and depression- Primary Mild persistent asthma without complication (HCC) Gastroesophageal reflux disease, unspecified whether esophagitis present Morbid obesity with BMI of 50.0-59.9, adult [place] Aura's thyroiditis Chronic lymphocytic thyroiditis Morbid obesity due to excess calories ([facility] Moderate persistent asthma without complication (HCC) Encounter for screening mammogram for malignant neoplasm of breast Arthritis of knee, right Psoriasis- Primary Other psoriasis 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 Morbid (severe) obesity due to excess calories ([facility] Body mass index (BMI) 45.0-49.9, adult [place] Mild persistent asthma without complication (HCC) Gastroesophageal [...] Morbid (severe) obesity due to excess calories ([facility] Hypomagnesemia Disorders of magnesium metabolism Heart palpitations- Primary Palpitations Ventricular arrhythmia Unspecified cardiac dysrhythmia Gastroesophageal reflux disease, unspecified whether esophagitis present Morbid (severe) obesity due to excess calories ([facility] Anxiety and depression Environmental and seasonal allergies Moderate persistent asthma without complication (HCC) Hypothyroidism, unspecified type- Primary documented in this encounter [facility] HealthcareEvaluation note* Diagnosis Anxiety and depression- Primary Elevated glucose Other abnormal glucose Hypomagnesemia Disorders of magnesium metabolism Gastroesophageal reflux disease, unspecified whether esophagitis present Morbid obesity with BMI of 50.0-59.9, adult [place] Moderate persistent asthma without complication (HCC) Chronic pain of right knee Anxiety and depression- Primary Abnormal TSH Chronic pain of right knee Non-recurrent acute suppurative otitis media of left ear without spontaneous rupture of tympanic membrane Aura's thyroiditis- Primary Chronic lymphocytic thyroiditis Anxiety and depression Morbid obesity with BMI of 50.0-59.9, adult [place] Arthritis of knee, right Cellulitis of lower extremity, unspecified laterality- Primary Moderate persistent asthma without complication (HCC) Ventral hernia without obstruction or gangrene Unspecified ventral hernia without mention of obstruction or gangrene Gastroesophageal reflux disease, unspecified whether esophagitis present Morbid obesity with BMI of 50.0-59.9, adult [place] Aura's thyroiditis Chronic lymphocytic thyroiditis Anxiety and depression Gastroesophageal reflux disease, unspecified whether esophagitis present- Primary Aura's thyroiditis Chronic lymphocytic thyroiditis Moderate persistent asthma without complication (HCC) Morbid obesity with BMI of 50.0-59.9, adult [place] [place] Arthritis of knee, right Aura's thyroiditis- Primary Chronic lymphocytic thyroiditis Morbid obesity with BMI of 50.0-59.9, adult [place] Psoriasis Other psoriasis Anxiety and depression Gastroesophageal reflux disease, unspecified whether esophagitis present Moderate persistent asthma without complication (HCC) Arthritis of knee, right Anxiety and depression- Primary Mild persistent asthma without complication (HCC) Gastroesophageal reflux disease, unspecified whether esophagitis present Morbid obesity with BMI of 50.0-59.9, adult [place] Aura's thyroiditis Chronic lymphocytic thyroiditis Morbid obesity due to excess calories ([facility] Moderate persistent asthma without complication (HCC) Encounter for screening mammogram for malignant neoplasm of breast Arthritis of knee, right Psoriasis- Primary Other psoriasis 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 Morbid (severe) obesity due to excess calories ([facility] Body mass index (BMI) 45.0-49.9, adult [place] Mild persistent asthma without complication (HCC) Gastroesophageal [...] Morbid (severe) obesity due to excess calories [place] Hypomagnesemia Disorders of magnesium metabolism Heart palpitations- Primary Palpitations Ventricular arrhythmia Unspecified cardiac dysrhythmia Gastroesophageal reflux disease, unspecified whether esophagitis present Morbid (severe) obesity due to excess calories ([facility] Anxiety and depression Environmental and seasonal allergies Moderate persistent asthma without complication (HCC) Hypomagnesemia Disorders of magnesium metabolism documented in this encounter [facility] HealthcareEvaluation note* Diagnosis Anxiety and depression- Primary Elevated glucose Other abnormal glucose Hypomagnesemia Disorders of magnesium metabolism Gastroesophageal reflux disease, unspecified whether esophagitis present Morbid obesity with BMI of 50.0-59.9, adult [place] Moderate persistent asthma without complication (HCC) Chronic pain of right knee Anxiety and depression- Primary Abnormal TSH Chronic pain of right knee Non-recurrent acute suppurative otitis media of left ear without spontaneous rupture of tympanic membrane Aura's thyroiditis- Primary Chronic lymphocytic thyroiditis Anxiety and depression Morbid obesity with BMI of 50.0-59.9, adult [place] Arthritis of knee, right Cellulitis of lower extremity, unspecified laterality- Primary Moderate persistent asthma without complication (HCC) Ventral hernia without obstruction or gangrene Unspecified ventral hernia without mention of obstruction or gangrene Gastroesophageal reflux disease, unspecified whether esophagitis present Morbid obesity with BMI of 50.0-59.9, adult [place] Aura's thyroiditis Chronic lymphocytic thyroiditis Anxiety and depression Gastroesophageal reflux disease, unspecified whether esophagitis present- Primary Aura's thyroiditis Chronic lymphocytic thyroiditis Moderate persistent asthma without complication (HCC) Morbid obesity with BMI of 50.0-59.9, adult [place] Arthritis of knee, right Aura's thyroiditis- Primary Chronic lymphocytic thyroiditis Morbid obesity with BMI of 50.0-59.9, adult [place] Psoriasis Other psoriasis Anxiety and depression Gastroesophageal reflux disease, unspecified whether esophagitis present Moderate persistent asthma without complication (HCC) Arthritis of knee, right Anxiety and depression- Primary Mild persistent asthma without complication (HCC) Gastroesophageal reflux disease, unspecified whether esophagitis present Morbid obesity with BMI of 50.0-59.9, adult [place] Aura's thyroiditis Chronic lymphocytic thyroiditis Morbid obesity due to excess calories ([facility] Moderate persistent asthma without complication (HCC) Encounter for screening mammogram for malignant neoplasm of breast Arthritis of knee, right Psoriasis- Primary Other psoriasis 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 Morbid (severe) obesity due to excess calories [place] Body mass index (BMI) 45.0-49.9, adult [place] Mild persistent asthma without complication (HCC) Gastroesophageal [...] Morbid (severe) obesity due to excess calories ([facility] Hypomagnesemia Disorders of magnesium metabolism Heart palpitations- Primary Palpitations Ventricular arrhythmia Unspecified cardiac dysrhythmia Gastroesophageal reflux disease, unspecified whether esophagitis present Morbid (severe) obesity due to excess calories ([facility] Anxiety and depression Environmental and seasonal allergies Moderate persistent asthma without complication (HCC) Heart palpitations- Primary Palpitations Essential hypertension Unspecified essential hypertension Morbid (severe) obesity due to excess calories [place] Hypothyroidism, unspecified type Anxiety and depression Hypomagnesemia Disorders of magnesium metabolism Moderate persistent asthma without complication (HCC) Gastroesophageal reflux disease, unspecified whether esophagitis present Ventral hernia without obstruction or gangrene Unspecified ventral hernia without mention of obstruction or gangrene documented in this encounter [facility] HealthcareEvaluation note* Diagnosis Anxiety and depression- Primary Elevated glucose Other abnormal glucose Hypomagnesemia Disorders of magnesium metabolism Gastroesophageal reflux disease, unspecified whether esophagitis present Morbid obesity with BMI of 50.0-59.9, adult [place] Moderate persistent asthma without complication (HCC) Chronic pain of right knee Anxiety and depression- Primary Abnormal TSH Chronic pain of right knee Non-recurrent acute suppurative otitis media of left ear without spontaneous rupture of tympanic membrane Aura's thyroiditis- Primary Chronic lymphocytic thyroiditis Anxiety and depression Morbid obesity with BMI of 50.0-59.9, adult [place] Arthritis of knee, right Cellulitis of lower extremity, unspecified laterality- Primary Moderate persistent asthma without complication (HCC) Ventral hernia without obstruction or gangrene Unspecified ventral hernia without mention of obstruction or gangrene Gastroesophageal reflux disease, unspecified whether esophagitis present Morbid obesity with BMI of 50.0-59.9, adult [place] Aura's thyroiditis Chronic lymphocytic thyroiditis Anxiety and depression Gastroesophageal reflux disease, unspecified whether esophagitis present- Primary Aura's thyroiditis Chronic lymphocytic thyroiditis Moderate persistent asthma without complication (HCC) Morbid obesity with BMI of 50.0-59.9, adult [place] Arthritis of knee, right Aura's thyroiditis- Primary Chronic lymphocytic thyroiditis Morbid obesity with BMI of 50.0-59.9, adult [place] Psoriasis Other psoriasis Anxiety and depression Gastroesophageal reflux disease, unspecified whether esophagitis present Moderate persistent asthma without complication (HCC) Arthritis of knee, right Anxiety and depression- Primary Mild persistent asthma without complication (HCC) Gastroesophageal reflux disease, unspecified whether esophagitis present Morbid obesity with BMI of 50.0-59.9, adult [place] Aura's thyroiditis Chronic lymphocytic thyroiditis Morbid obesity due to excess calories ([facility] Moderate persistent asthma without complication (HCC) Encounter for screening mammogram for malignant neoplasm of breast Arthritis of knee, right Psoriasis- Primary Other psoriasis 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 Morbid (severe) obesity due to excess calories [place] Body mass index (BMI) 45.0-49.9, adult [place] Mild persistent asthma without complication (HCC) Gastroesophageal [...] Morbid (severe) obesity due to excess calories [place] Hypomagnesemia Disorders of magnesium metabolism Heart palpitations- Primary Palpitations Ventricular arrhythmia Unspecified cardiac dysrhythmia Gastroesophageal reflux disease, unspecified whether esophagitis present Morbid (severe) obesity due to excess calories ([facility] Anxiety and depression Environmental and seasonal allergies Moderate persistent asthma without complication (HCC) Heart palpitations- Primary Palpitations Essential hypertension Unspecified essential hypertension Morbid (severe) obesity due to excess calories ([facility] Hypothyroidism, unspecified type Anxiety and depression Hypomagnesemia [...] Morbid obesity with BMI of 50.0-59.9, adult [place] Moderate persistent asthma without complication (HCC) Chronic pain of right knee Anxiety and depression- Primary Abnormal TSH Chronic pain of right knee Non-recurrent acute suppurative otitis media of left ear without spontaneous rupture of tympanic membrane Aura's thyroiditis- Primary Chronic lymphocytic thyroiditis Anxiety and depression Morbid obesity with BMI of 50.0-59.9, adult [place] Arthritis of knee, right Cellulitis of lower extremity, unspecified laterality- Primary Moderate persistent asthma without complication ([facility]) Ventral hernia without obstruction or gangrene Unspecified ventral hernia without mention of obstruction or gangrene Gastroesophageal reflux disease, unspecified whether esophagitis present Morbid obesity with BMI of 50.0-59.9, adult [place] Aura's thyroiditis Chronic lymphocytic thyroiditis Anxiety and depression Gastroesophageal reflux disease, unspecified whether esophagitis present- Primary Aura's thyroiditis Chronic lymphocytic thyroiditis Moderate persistent asthma without complication (HCC) Morbid obesity with BMI of 50.0-59.9, adult [place] Arthritis of knee, right Aura's thyroiditis- Primary Chronic lymphocytic thyroiditis Morbid obesity with BMI of 50.0-59.9, adult [place] Psoriasis Other psoriasis Anxiety and depression Gastroesophageal reflux disease, unspecified whether esophagitis present Moderate persistent asthma without complication (HCC) Arthritis of knee, right Anxiety and depression- Primary Mild persistent asthma without complication (HCC) Gastroesophageal reflux disease, unspecified whether esophagitis present Morbid obesity with BMI of 50.0-59.9, adult [place] Aura's thyroiditis Chronic lymphocytic thyroiditis Morbid obesity due to excess calories ([facility] Moderate persistent asthma without complication (HCC) Encounter for screening mammogram for malignant neoplasm of breast Arthritis of knee, right Psoriasis- Primary Other psoriasis 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 Morbid (severe) obesity due to excess calories ([facility] Body mass index (BMI) 45.0-49.9, adult ([facility] Mild persistent asthma without complication (HCC) Gastroesophageal [...] Morbid (severe) obesity due to excess calories ([facility] Hypomagnesemia Disorders of magnesium metabolism Heart palpitations- Primary Palpitations Ventricular arrhythmia Unspecified cardiac dysrhythmia Gastroesophageal reflux disease, unspecified whether esophagitis present Morbid (severe) obesity due to excess calories ([facility] Anxiety and depression Environmental and seasonal allergies Moderate persistent asthma without complication (HCC) Heart palpitations- Primary Palpitations Essential hypertension Unspecified essential hypertension Morbid (severe) obesity due to excess calories ([facility] Hypothyroidism, unspecified type Anxiety and depression Hypomagnesemia Disorders of magnesium metabolism Moderate persistent asthma without complication (HCC) Gastroesophageal reflux disease, unspecified whether esophagitis present Ventral hernia without obstruction or gangrene Unspecified ventral hernia without mention of obstruction or gangrene Recurrent ventral hernia with incarceration- Primary documented in this encounter [facility] HealthcareEvaluation note* Diagnosis Anxiety and depression- Primary Elevated glucose Other abnormal glucose Hypomagnesemia Disorders of magnesium metabolism Gastroesophageal reflux disease, unspecified whether esophagitis present Morbid obesity with BMI of 50.0-59.9, adult ([facility] Moderate persistent asthma without complication (HCC) Chronic pain of right knee Anxiety and depression- Primary Abnormal TSH Chronic pain of right knee Non-recurrent acute suppurative otitis media of left ear without spontaneous rupture of tympanic membrane Aura's thyroiditis- Primary Chronic lymphocytic thyroiditis Anxiety and depression Morbid obesity with BMI of 50.0-59.9, adult ([facility] Arthritis of knee, right Cellulitis of lower extremity, unspecified laterality- Primary Moderate persistent asthma without complication (HCC) Ventral hernia without obstruction or gangrene Unspecified ventral hernia without mention of obstruction or gangrene Gastroesophageal reflux disease, unspecified whether esophagitis present Morbid obesity with BMI of 50.0-59.9, adult ([facility] Aura's thyroiditis Chronic lymphocytic thyroiditis Anxiety and depression Gastroesophageal reflux disease, unspecified whether esophagitis present- Primary Aura's thyroiditis Chronic lymphocytic thyroiditis Moderate persistent asthma without complication (HCC) Morbid obesity with BMI of 50.0-59.9, adult [place] Arthritis of knee, right Aura's thyroiditis- Primary Chronic lymphocytic thyroiditis Morbid obesity with BMI of 50.0-59.9, adult ([facility] Psoriasis Other psoriasis Anxiety and depression Gastroesophageal reflux disease, unspecified whether esophagitis present Moderate persistent asthma without complication (HCC) Arthritis of knee, right Anxiety and depression- Primary Mild persistent asthma without complication (HCC) Gastroesophageal reflux disease, unspecified whether esophagitis present Morbid obesity with BMI of 50.0-59.9, adult [place] Aura's thyroiditis Chronic lymphocytic thyroiditis Morbid obesity due to excess calories ([facility] Moderate persistent asthma without complication (HCC) Encounter for screening mammogram for malignant neoplasm of breast Arthritis of knee, right Psoriasis- Primary Other psoriasis 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 Morbid (severe) obesity due to excess calories ([facility] Body mass index (BMI) 45.0-49.9, adult ([facility] Mild persistent asthma without complication (HCC) Gastroesophageal [...] Morbid (severe) obesity due to excess calories ([facility] Hypomagnesemia Disorders of magnesium metabolism Heart palpitations- Primary Palpitations Ventricular arrhythmia Unspecified cardiac dysrhythmia Gastroesophageal reflux disease, unspecified whether esophagitis present Morbid (severe) obesity due to excess calories ([facility] Anxiety and depression Environmental and seasonal allergies Moderate persistent asthma without complication (HCC) Heart palpitations- Primary Palpitations Essential hypertension Unspecified essential hypertension Morbid (severe) obesity due to excess calories ([facility] [place] Hypothyroidism, unspecified type Anxiety and depression Hypomagnesemia [...] Morbid obesity with BMI of 50.0-59.9, adult [place] Moderate persistent asthma without complication (HCC) Chronic pain of right knee Anxiety and depression- Primary Abnormal TSH Chronic pain of right knee Non-recurrent acute suppurative otitis media of left ear without spontaneous rupture of tympanic membrane Aura's thyroiditis- Primary Chronic lymphocytic thyroiditis Anxiety and depression Morbid obesity with BMI of 50.0-59.9, adult [place] Arthritis of knee, right Cellulitis of lower extremity, unspecified laterality- Primary Moderate persistent asthma without complication (HCC) Ventral hernia without obstruction or gangrene Unspecified ventral hernia without mention of obstruction or gangrene Gastroesophageal reflux disease, unspecified whether esophagitis present Morbid obesity with BMI of 50.0-59.9, adult [place] Aura's thyroiditis Chronic lymphocytic thyroiditis Anxiety and depression Gastroesophageal reflux disease, unspecified whether esophagitis present- Primary Aura's thyroiditis Chronic lymphocytic thyroiditis Moderate persistent asthma without complication (HCC) Morbid obesity with BMI of 50.0-59.9, adult [place] [place] Arthritis of knee, right Aura's thyroiditis- Primary Chronic lymphocytic thyroiditis Morbid obesity with BMI of 50.0-59.9, adult [place] [place] Psoriasis Other psoriasis Anxiety and depression Gastroesophageal reflux disease, unspecified whether esophagitis present Moderate persistent asthma without complication (HCC) Arthritis of knee, right Anxiety and depression- Primary Mild persistent asthma without complication (HCC) Gastroesophageal reflux disease, unspecified whether esophagitis present Morbid obesity with BMI of 50.0-59.9, adult [place] Aura's thyroiditis Chronic lymphocytic thyroiditis Morbid obesity due to excess calories ([facility] Moderate persistent asthma without complication (HCC) Encounter for screening mammogram for malignant neoplasm of breast Arthritis of knee, right Psoriasis- Primary Other psoriasis 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 Morbid (severe) obesity due to excess calories ([facility] Body mass index (BMI) 45.0-49.9, adult [place] [place] Mild persistent asthma without complication (HCC) Gastroesophageal [...] Morbid (severe) obesity due to excess calories [place] Hypomagnesemia Disorders of magnesium metabolism Heart palpitations- Primary Palpitations Ventricular arrhythmia Unspecified cardiac dysrhythmia Gastroesophageal reflux disease, unspecified whether esophagitis present Morbid (severe) obesity due to excess calories ([facility] Anxiety and depression Environmental and seasonal allergies Moderate persistent asthma without complication (HCC) Heart palpitations- Primary Palpitations Essential hypertension Unspecified essential hypertension Morbid (severe) obesity due to excess calories [place] Hypothyroidism, unspecified type Anxiety and depression Hypomagnesemia Disorders of magnesium metabolism Moderate persistent asthma without complication (HCC) Gastroesophageal reflux disease, unspecified whether esophagitis present Ventral hernia without obstruction or gangrene Unspecified ventral hernia without mention of obstruction or gangrene Severe persistent asthma with acute exacerbation (HCC)- Primary Chronic rhinitis [facility] Diagnosis Anxiety and depression- Primary Elevated glucose Other abnormal glucose Hypomagnesemia Disorders of magnesium metabolism Gastroesophageal reflux disease, unspecified whether esophagitis present Morbid obesity with BMI of 50.0-59.9, adult [place] Moderate persistent asthma without complication (HCC) Chronic pain of right knee Anxiety and depression- Primary Abnormal TSH Chronic pain of right knee Non-recurrent acute suppurative otitis media of left ear without spontaneous rupture of tympanic membrane Aura's thyroiditis- Primary Chronic lymphocytic thyroiditis Anxiety and depression Morbid obesity with BMI of 50.0-59.9, adult [place] Arthritis of knee, right Cellulitis of lower extremity, unspecified laterality- Primary Moderate persistent asthma without complication (HCC) Ventral hernia without obstruction or gangrene Unspecified ventral hernia without mention of obstruction or gangrene Gastroesophageal reflux disease, unspecified whether esophagitis present Morbid obesity with BMI of 50.0-59.9, adult [place] Aura's thyroiditis Chronic lymphocytic thyroiditis Anxiety and depression Gastroesophageal reflux disease, unspecified whether esophagitis present- Primary Aura's thyroiditis Chronic lymphocytic thyroiditis Moderate persistent asthma without complication (HCC) Morbid obesity with BMI of 50.0-59.9, adult [place] Arthritis of knee, right Aura's thyroiditis- Primary Chronic lymphocytic thyroiditis Morbid obesity with BMI of 50.0-59.9, adult [place] Psoriasis Other psoriasis Anxiety and depression Gastroesophageal reflux disease, unspecified whether esophagitis present Moderate persistent asthma without complication (HCC) Arthritis of knee, right Anxiety and depression- Primary Mild persistent asthma without complication (HCC) Gastroesophageal reflux disease, unspecified whether esophagitis present Morbid obesity with BMI of 50.0-59.9, adult [place] Aura's thyroiditis Chronic lymphocytic thyroiditis Morbid obesity due to excess calories ([facility]) Moderate persistent asthma without complication (HCC) Encounter for screening mammogram for malignant neoplasm of breast Arthritis of knee, right Psoriasis- Primary Other psoriasis 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 Morbid (severe) obesity due to excess calories ([facility]) Body mass index (BMI) 45.0-49.9, adult [place] Mild persistent asthma without complication (HCC) Gastroesophageal [...] Morbid (severe) obesity due to excess calories ([facility]) Hypomagnesemia Disorders of magnesium metabolism Heart palpitations- Primary Palpitations Ventricular arrhythmia Unspecified cardiac dysrhythmia Gastroesophageal reflux disease, unspecified whether esophagitis present Morbid (severe) obesity due to excess calories [place] Anxiety and depression Environmental and seasonal allergies Moderate persistent asthma without complication (HCC) Heart palpitations- Primary Palpitations Essential hypertension Unspecified essential hypertension Morbid (severe) obesity due to excess calories [place] Hypothyroidism, unspecified type Anxiety and depression Hypomagnesemia Disorders of magnesium metabolism Moderate persistent asthma without complication (HCC) Gastroesophageal reflux disease, unspecified whether esophagitis present Ventral hernia without obstruction or gangrene Unspecified ventral hernia without mention of obstruction or gangrene Severe persistent asthma with acute exacerbation (HCC) documented in this encounter [facility]* Diagnosis Anxiety and depression- Primary Elevated glucose Other abnormal glucose Hypomagnesemia Disorders of magnesium metabolism Gastroesophageal reflux disease, unspecified whether esophagitis present Morbid obesity with BMI of 50.0-59.9, adult [place] Moderate persistent asthma without complication (HCC) Chronic pain of right knee Anxiety and depression- Primary Abnormal TSH Chronic pain of right knee Non-recurrent acute suppurative otitis media of left ear without spontaneous rupture of tympanic membrane Aura's thyroiditis- Primary Chronic lymphocytic thyroiditis Anxiety and depression Morbid obesity with BMI of 50.0-59.9, adult [place] [place] Arthritis of knee, right Cellulitis of lower extremity, unspecified laterality- Primary Moderate persistent asthma without complication (HCC) Ventral hernia without obstruction or gangrene Unspecified ventral hernia without mention of obstruction or gangrene Gastroesophageal reflux disease, unspecified whether esophagitis present Morbid obesity with BMI of 50.0-59.9, adult [place] Aura's thyroiditis Chronic lymphocytic thyroiditis Anxiety and depression Gastroesophageal reflux disease, unspecified whether esophagitis present- Primary Aura's thyroiditis Chronic lymphocytic thyroiditis Moderate persistent asthma without complication (HCC) Morbid obesity with BMI of 50.0-59.9, adult [place] Arthritis of knee, right Aura's thyroiditis- Primary Chronic lymphocytic thyroiditis Morbid obesity with BMI of 50.0-59.9, adult [place] Psoriasis Other psoriasis Anxiety and depression Gastroesophageal reflux disease, unspecified whether esophagitis present Moderate persistent asthma without complication (HCC) Arthritis of knee, right Anxiety and depression- Primary Mild persistent asthma without complication (HCC) Gastroesophageal reflux disease, unspecified whether esophagitis present Morbid obesity with BMI of 50.0-59.9, adult [place] Aura's thyroiditis Chronic lymphocytic thyroiditis Morbid obesity due to excess calories [place] Moderate persistent asthma without complication (HCC) Encounter for screening mammogram for malignant neoplasm of breast Arthritis of knee, right Psoriasis- Primary Other psoriasis 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 Morbid (severe) obesity due to excess calories [place] Body mass index (BMI) 45.0-49.9, adult [place] Mild persistent asthma without complication (HCC) Gastroesophageal [...] Morbid (severe) obesity due to excess calories [place] Hypomagnesemia Disorders of magnesium metabolism Heart palpitations- Primary Palpitations Ventricular arrhythmia Unspecified cardiac dysrhythmia Gastroesophageal reflux disease, unspecified whether esophagitis present Morbid (severe) obesity due to excess calories [place] Anxiety and depression Environmental and seasonal allergies Moderate persistent asthma without complication (HCC) Heart palpitations- Primary Palpitations Essential hypertension Unspecified essential hypertension Morbid (severe) obesity due to excess calories ([facility]-HCC) Hypothyroidism, unspecified type Anxiety and depression Hypomagnesemia Disorders of magnesium metabolism Moderate persistent asthma without complication (HCC) Gastroesophageal reflux disease, unspecified whether esophagitis present Ventral hernia without obstruction or gangrene Unspecified ventral hernia without mention of obstruction or gangrene Allergic rhinitis due to grass pollen- Primary Moderate persistent asthma without complication (HCC) documented [facility] encounter [facility]* Diagnosis Onset Date Resolution Status Admit Date Anxiety and depression acuteNov2024 1:04pmEnvironmental and seasonal allergiesacuteNov2024 1:04pmHTN (hypertension)acuteNov2024 1:04pmHypomagnesemia acuteNov2024 1:04pmHypothyroidismacuteNov2024 1:04pmMild persistent asthma without complicationacuteNov2024 1:04pmMorbid (severe) obesity due to excess caloriesacuteNov2024 1:04pmVentricular arrhythmiaacuteNov2024 1:04pm [facility] Work Phone: History general Narrative - Reported* Type Description Date Medical History diabetes Medical HistoryasthmaMedical Historyhx of syncopeMedical HistoryGastro- esophageal reflux disease without esophagitisSurgical Historyhernia surgery X2 Surgical Historygall bladder removedHospitalization Historysee above surgical hx Hospitalization History2 child births Digital Message Display Other Hospital course Narrative No data available for this section [facility] Discharge instructions No data available for this section [facility] Progress note No data available for this section [facility] Reason for referral (narrative)* Consultation (Routine) - Pending ReviewSpecialtyDiagnoses / ProceduresReferred By ContactReferred To ContactRheumatology Diagnoses Psoriasis (CMS/HCC) Procedures [place] OFFICE/OUTPATIENT NEW HIGH MDM 60 MINUTES Elvie Greer NP [address] [place] [address] Ghassan Ramos MD [address] [facility] [place] [address] Referral IDStatusReasonStart DateExpiration DateVisits RequestedVisits [id number] Review Specialty Services Required / [facility] HealthcareReason for referral (narrative)No reason for referral information availableOhio Valley [facility]tr Work Phone: Reason for visit Narrative* Consultation (Routine) - AuthorizedSpecialtyDiagnoses / ProceduresReferred By ContactReferred To ContactPhysical Therapy Diagnoses Primary osteoarthritis of right knee Procedures [place] OFFICE/OUTPATIENT [facility]3] 60 MINUTES Chan Khan, DO [address] [place] [address] Phone: tel: fax: Kylee Fernandez, MADHAVI Referral IDStatusReasonStart DateExpiration DateVisits RequestedVisits [id number] Specialty Services Required / [facility] HealthcareReason for visit Narrative* Rehabilitation - Outpatient (Routine) - AuthorizedSpecialtyDiagnoses / ProceduresReferred By ContactReferred To ContactPhysical Therapy Diagnoses Aftercare following right knee joint replacement surgery Presence of right artificial knee joint Procedures NV THERAPEUTIC PX 1/> AREAS EACH 15 MIN EXERCISES NV MANUAL THERAPY TQS 1/> REGIONS EACH 15 MINUTES NV THER PX 1/> AREAS EACH 15 MIN NEUROMUSC REEDUCA PHYS/OCC THERAPY SS Chan Khan, DO [address] [place] [address] Phone: tel: fax: Kylee Fernandez, MADHAVI Referral IDStatusReasonStart DateExpiration DateVisits RequestedVisits [id number]/8/202512/ [facility] HealthcareReason for visit Narrative* Rehabilitation - Outpatient (Routine) - AuthorizedSpecialtyDiagnoses / ProceduresReferred By ContactReferred To ContactPhysical Therapy Diagnoses Aftercare following right knee joint replacement surgery Presence of right artificial knee joint Procedures NV THERAPEUTIC PX 1/> AREAS EACH 15 MIN EXERCISES NV MANUAL THERAPY TQS 1/> REGIONS EACH 15 MINUTES NV THER PX 1/> AREAS EACH 15 MIN NEUROMUSC REEDUCA PHYS/OCC THERAPY Chan Llanes, DO [address] [place] [address] Phone: tel: fax: Kylee Fernandze, PT Referral IDStatusReasonStart DateExpiration DateVisits RequestedVisits [id number]/8/202512/31/2025138 [facility] HealthcareReason for visit Narrative* Rehabilitation - Outpatient (Routine) - ClosedSpecialtyDiagnoses / ProceduresReferred By ContactReferred To Contact Physical Therapy Diagnoses Aftercare following right knee joint replacement surgery Presence of right artificial knee joint Procedures NV THERAPEUTIC PX 1/> AREAS EACH 15 MIN EXERCISES NV MANUAL THERAPY TQS 1/> REGIONS EACH 15 MINUTES NV THER PX 1/> AREAS EACH 15 MIN NEUROMUSC REEDUCA PHYS/OCC THERAPY Chan Llanes, DO [address] [place] [address] Phone: tel: fax: Kylee Fernandez, PT Referral IDStatusReasonStart DateExpiration DateVisits RequestedVisits [id number]/8/202512/31/[id number] [facility] Healthcare Summary Purpose Family History Relationship Condition Age at Onset Recorded Date/T rahel father Unknown motherDiabetes mellitusUnknownFamily history of mental disorderUnknownHeart diseaseUnknownsisterHypertensionUnknown Advance Directives Advance Directive Response Recorded Date/ Time Advance Directives No November 10:23am Advance Directive Response Recorded Date/ Time Advance Directives No December 09, 2023 1:58pm Advance Directive Response Recorded Date/ Time Advance Directives No December 09, 2023 12:58pm Chief Complaint and Reason for Visit Chief Complaint Infected tattoo Chief Complaint Infected tattoo M25.50Reason for VisitCellulitis of arm, left Chief Complaint Admit Date K43.2 October 19, 2024 9: 06am Chief Complaint Admit Date K43.2 October 19, [...] 2025 1:04pm Ventricular arrhythmia January 11 1:04pm Additional Source Comments INFORMATION SOURCE (unrecogn ized section and content) DATE CREATED AUTHOR 06/01/2022 [facility] DATE CREATED AUTHOR AUTHOR'S ORGANIZ ATION 07/22/2023 [facility] DATE CREATED AUTHOR AUTHOR'S ORGANIZ ATION 01/27/2024 [facility] DATE CREATED AUTHOR AUTHOR'S ORGANIZ ATION 01/28/2024 [facility] DATE CREATED AUTHOR AUTHOR'S ORGANIZ ATION 02/22/2024 [facility] DATE CREATED AUTHOR AUTHOR'S ORGANIZ ATION 02/23/2024 [facility] DATE CREATED AUTHOR AUTHOR'S ORGANIZ ATION 02/26/2024 [facility] DATE CREATED AUTHOR AUTHOR'S ORGANIZ ATION 02/29/2024 [facility] DATE CREATED AUTHOR AUTHOR'S ORGANIZ ATION 10/21/2024 [facility] DATE CREATED AUTHOR AUTHOR'S ORGANIZ ATION 12/01/2024 [facility] DATE CREATED AUTHOR AUTHOR'S ORGANIZ ATION 12/29/2024 [facility] EPIC REASON FOR VISIT (unrecogniz ed section and content) ReasonCommentsFollow-upReasonCommentsMed RefillReasonCommentsHashimoto's ThyroiditisReasonCommentsPost-opReasonCommentsWell Women VisitReasonComments hormonesReasonCommentsHypertensionReasonCommentsAllergy TestingPt wants environmental allergy testing she was allergic as a kid for many outdoor allergies and didshotsSpecialtyDiagnoses / ProceduresReferred By ContactReferred To ContactAllergy and Immunology Diagnoses Environmental and seasonal allergies Procedures [place] OFFICE/OUTPATIENT [facility]3] 60 MINUTES Elvie Greer NP [address] [place] [address] Phone: tel: fax: Prabhakar Cordova MD [address] [facility] [address] [place] [address] Phone: tel: fax: Referral IDStatusReasonStart DateExpiration DateVisits RequestedVisits [id number] Specialty Services Required [id number] herniaSpecialtyDiagnoses / ProceduresReferred By ContactReferred To Contact General Surgery Diagnoses Ventral hernia without obstruction or gangrene Procedures [place] OFFICE/OUTPATIENT [facility]3] 60 MINUTES Elvie Greer NP [address] [place] [address] Phone: tel: fax: Bernardo Silverio, [address] [address] Phone: tel: fax: Referral IDStatusReasonStart DateExpiration DateVisits RequestedVisits [id number] Specialty Services Required [id number] wk f/uW/ ctReasonCommentsAllergy TestingPt here for allergy testing for environmental allergiesReasonCommentsMed Change RequestReasonCommentsFollow-upNo surgeries; no hospital stays. Care Teams (unrecognized sec tion and content) Team MemberRelationshipSpecialtyStart DateEnd Date Chris Pelaez MD [address] [place] [address] PCP - GeneralFamily Medicine1/25/24 Elvie Greer NP [address] [place] [address] [facility]04/01/23Team MemberRelationshipSpecialtyStart DateEnd Date Chris Pelaez MD [address] [place] [address] PCP - [facility]04/01/23 Elvie Greer NP [address] [place] [address] [facility]04/01/23 Team Status: Active Member Role Status Dates Elvie Greer Primary Care Provider Active Team Status: Inactive Member Role Status Dates Elvie Greer Primary Care Provider Active Sta rt: November 26, 2023 End: November 26, 2023Vikas Faith ProviderActiveStart: November 26, 2023 End: November 26, 2023 Team Status: Inactive Member Role Status Dates Elvie Greer Primary Care Provider Active Sta rt: December 09, 2023 End: December 08obert Avila Ramos ProviderActiveStart: December 09, 2023 End: December 09, 2023Team MemberRelationshipSpecialtyStart DateEnd Date Chris Pelaez MD [address] [place] [address] PCP - [facility]04/01/23 Elvie Greer NP [address] [place] [address] [facility]04/01/23Team MemberRelationshipSpecialtyStart DateEnd Date Chris Pelaez MD [address] [place] [address] PCP - GeneralFamily Medicine04/01/23 Elvie Greer NP [address] [place] [address] Nurse Practitionermily Medicine04/01/23Team MemberRelationshipSpecialtyStart DateEnd Date Chris Pelaez MD [address] [place] [address] PCP - GeneralFamily Medicine04/01/23 Elvie Greer NP [address] [place] [address] Nurse Practitionermily Medicine04/01/23Team MemberRelationshipSpecialtyStart DateEnd Date Chris Pelaez MD [address] [place] [address] PCP - GeneralFamily Medicine04/01/23 Elvie Greer NP [address] [place] [address] Nurse Practitionermily Medicine04/01/23Team MemberRelationshipSpecialtyStart DateEnd Date Chris Pelaez MD [address] [place] [address] PCP - GeneralFamily Medicine04/01/23 Elvie Greer NP [address] [place] [address] Nurse Practitionermily Medicine04/01/23Team MemberRelationshipSpecialtyStart DateEnd Date Chris Pelaez MD [address] [place] [address] PCP - GeneralFamily Medicine04/01/23 Elvie Greer NP [address] [place] [address] [facility]Mad[facility]04/01/23Team MemberRelationshipSpecialtyStart DateEnd Date Chris Pelaez MD [address] [place] [address] PCP - GeneralFamily Medicine04/01/23 Elvie Greer NP [address] [place] [address] [facility]Mad[facility]04/01/23Team MemberRelationshipSpecialtyStart DateEnd Date Chris Pelaez MD [address] [place] [address] PCP - GeneralFamily Medicine04/01/23 Elvie Greer NP [address] [place] [address] Nurse Practitionermily Medicine04/01/23Team MemberRelationshipSpecialtyStart DateEnd Date Chris Pelaez MD [address] [place] [address] PCP - GeneralFamily Medicine04/01/23 Elvie Greer NP [address] [place] [address] Nurse Practitionermily Medicine04/01/23Team MemberRelationshipSpecialtyStart DateEnd Date Chris Pelaez MD [address] [place] [address] PCP - GeneralFamily Medicine04/01/23 Elvie Greer NP [address] [place] [address] Nurse Practitionermily Medicine04/01/23Team MemberRelationshipSpecialtyStart DateEnd Date Chris Pelaez MD [address] [place] [address] PCP - GeneralFamily Medicine04/01/23 Elvie Greer NP [address] [place] [address] Nurse Practitionermily Medicine04/01/23Team MemberRelationshipSpecialtyStart DateEnd Date Chris Pelaez MD [address] [place] [address] PCP - GeneralFamily Medicine04/01/23 Elvie Greer NP [address] [place] [address] Nurse Pract[facility]Mad[facility]04/01/23Team MemberRelationshipSpecialtyStart DateEnd Date Chris Pelaez MD [address] [place] [address] PCP - GeneralFamily Medicine04/01/23 Elvie Greer NP [address] [place] [address] [facility]04/01/23Team MemberRelationshipSpecialtyStart DateEnd Date Chris Pelaez MD [address] [place] [address] PCP - Generalmily Medicine04/01/23 Elvie Greer NP [address] [place] [address] [facility]04/01/23Team MemberRelationshipSpecialtyStart DateEnd Date Chris Pelaez MD [address] [place] [address] PCP - Generalmily Medicine04/01/23 Elvie Greer NP [address] [place] [address] Nurse [facility] Medicine04/01/23Team MemberRelationshipSpecialtyStart DateEnd Date Chris Pelaez MD [address] [place] [address] PCP - GeneralFamily Medicine04/01/23 Elvie Greer NP [address] [place] [address] Nurse Practitionermily Medicine04/01/23Team MemberRelationshipSpecialtyStart DateEnd Date Chris Pelaez MD [address] [place] [address] PCP - Generalmily Medicine04/01/23 Elvie Greer NP [address] [place] [address] Nurse [facility] Medicine04/01/23Team MemberRelationshipSpecialtyStart DateEnd Date Chris Pelaez MD [address] [place] [address] PCP - GeneralFamily Medicine04/01/23 Elvie Greer NP [address] [place] [address] Nurse [facility]Mad[facility] Medicine04/01/23Team MemberRelationshipSpecialtyStart DateEnd Date Chris Pelaez MD [address] [place] [address] PCP - GeneralFamily Medicine04/01/23 Elvie Greer NP [address] [place] [address] Nurse Practitionermily Medicine04/01/23Team MemberRelationshipSpecialtyStart DateEnd Date Chris Pelaez MD [address] [place] [address] PCP - GeneralFamily Medicine04/01/23 Elvie Greer NP [address] [place] [address] Nurse [facility] Medicine04/01/23Team MemberRelationshipSpecialtyStart DateEnd Date Chris Pelaez MD [address] [place] [address] PCP - Generalmily Medicine04/01/23 Elvie Greer NP [address] [place] [address] Nurse [facility] Medicine04/01/23Team MemberRelationshipSpecialtyStart DateEnd Date Chris Pelaez MD [address] [place] [address] PCP - Generalmily Medicine04/01/23 Elvie Greer NP [address] [place] [address] Nurse [facility] Medicine04/01/23Team MemberRelationshipSpecialtyStart DateEnd Date Chris Pelaez MD [address] [place] [address] PCP - GeneralFamily Medicine04/01/23 Elvie Greer NP [address] [place] [address] Nurse PractitionerFamily Medicine04/01/23Team MemberRelationshipSpecialtyStart DateEnd Date Chris Pelaez MD [address] [place] [address] PCP - GeneralFamily Medicine04/01/23 Elvie Greer NP [address] [place] [address] Nurse Practitionermily Medicine04/01/23Team MemberRelationshipSpecialtyStart DateEnd Date Chris Pelaez MD [address] [place] [address] PCP - GeneralFamily Medicine04/01/23 Elvie Greer NP [address] [place] [address] Nurse Practitionermily Medicine04/01/23Team MemberRelationshipSpecialtyStart DateEnd Date Chris Pelaez MD [address] [place] [address] PCP - GeneralFamily Medicine04/01/23 Elvie Greer NP [address] [place] [address] Nurse Practitionermily Medicine04/01/23Team MemberRelationshipSpecialtyStart DateEnd Date Chris Pelaez MD [address] [place] [address] PCP - GeneralFamily Medicine04/01/23 Elvie Greer NP [address] [place] [address] Nurse Practitionermily Medicine04/01/23Team MemberRelationshipSpecialtyStart DateEnd Date Chris Pelaez MD [address] [place] [address] PCP - Generalmily Medicine04/01/23 Elvie Greer NP [address] [place] [address] Nurse [facility] Medicine04/01/23Team MemberRelationshipSpecialtyStart DateEnd Date Chris Pelaez MD [address] [place] [address] PCP - Generalmily Medicine04/01/23 Elvie Greer NP [address] [place] [address] Nurse Pract[facility]erMad[facility] Medicine04/01/23Team MemberRelationshipSpecialtyStart DateEnd Date Chris Pelaez MD [address] [place] [address] PCP - GeneralFamily Medicine04/01/23 Elvie Greer NP [address] [place] [address] Nurse Practitionermily Medicine04/01/23Team MemberRelationshipSpecialtyStart DateEnd Date Chris Pelaez MD [address] [place] [address] PCP - GeneralFamily Medicine04/01/23 Elvie Greer NP [address] [place] [address] Nurse Practitionermily Medicine04/01/23Team MemberRelationshipSpecialtyStart DateEnd Date Chris Pelaez MD [address] [place] [address] PCP - GeneralFamily Medicine04/01/23 Elvie Greer NP [address] [place] [address] Nurse Practitionermily Medicine04/01/23Team MemberRelationshipSpecialtyStart DateEnd Date Chris Pelaez MD [address] [place] [address] PCP - GeneralFamily Medicine04/01/23 Elvie Greer NP [address] [place] [address] Nurse Practitionermily Medicine04/01/23Team MemberRelationshipSpecialtyStart DateEnd Date Chris Pelaez MD [address] [place] [address] PCP - GeneralFamily Medicine04/01/23 Elvie Greer, JONN [address] [place] [address] Nurse Pract[facility]erMad[facility] Medicine04/01/23Team MemberRelationshipSpecialtyStart DateEnd Date Chris Pelaez MD [address] [place] [address] PCP - GeneralFamily Medicine04/01/23 Elvie Greer NP [address] [place] [address] Nurse Pract[facility]Mad[facility] Medicine04/01/23Team MemberRelationshipSpecialtyStart DateEnd Date Chris Pelaez MD [address] [place] [address] PCP - Generalmily Medicine04/01/23 Elvie Greer NP [address] [place] [address] Nurse Practitionermily Medicine04/01/23Team MemberRelationshipSpecialtyStart DateEnd Date Chris Pelaez MD [address] [place] [address] PCP - GeneralFamily Medicine04/01/23 Elvie Greer NP [address] [place] [address] [facility]04/01/23Team MemberRelationshipSpecialtyStart DateEnd Date Chris Pelaez MD [address] [place] [address] PCP - [facility] Medicine04/01/23 Elvie Greer NP [address] [place] [address] [facility]04/01/23Team MemberRelationshipSpecialtyStart DateEnd Date Chris Pelaez MD [address] [place] [address] PCP - General[facility] Medicine04/01/23 Elvie Greer NP [address] [place] [address] [facility]04/01/23Team MemberRelationshipSpecialtyStart DateEnd Date Chris Pelaez MD [address] [place] [address] PCP - [facility] Medicine04/01/23 Elvie Greer NP [address] [place] [address] [facility]04/01/23Team MemberRelationshipSpecialtyStart DateEnd Date Chris Pelaez MD [address] [place] [address] PCP - GeneralFamily Medicine04/01/23 Elvie Greer NP [address] [place] [address] Nurse Practitionermily Medicine04/01/23Team MemberRelationshipSpecialtyStart DateEnd Date Chris Pelaez MD [address] [place] [address] PCP - Generalmily Medicine04/01/23 Elvie Greer NP [address] [place] [address] Nurse Pract[facility]Mad[facility]04/01/23Team MemberRelationshipSpecialtyStart DateEnd Date Chris Pelaez MD [address] [place] [address] PCP - Generalmily Medicine04/01/23 Elvie Greer NP [address] [place] [address] Nurse Practitionermily Medicine04/01/23Team MemberRelationshipSpecialtyStart DateEnd Date Chris Pelaez MD [address] [place] [address] PCP - Generalmily Medicine04/01/23 Elvie Greer NP [address] [place] [address] Nurse PractitionerFamily Medicine04/01/23Team MemberRelationshipSpecialtyStart DateEnd Date Chris Pelaez MD [address] [place] [address] PCP - GeneralFamily Medicine04/01/23 Elvie Greer NP [address] [place] [address] Nurse [facility]04/01/23Team MemberRelationshipSpecialtyStart DateEnd Date Chris Pelaez MD [address] [place] [address] PCP - GeneralFamily Medicine04/01/23 Elvie Greer NP [address] [place] [address] Nurse [facility] Medicine04/01/23Team MemberRelationshipSpecialtyStart DateEnd Date Chris Pelaez MD [address] [place] [address] PCP - GeneralFamily Medicine04/01/23 Elvie Greer NP [address] [place] [address] Nurse Practitionermily Medicine04/01/23Team MemberRelationshipSpecialtyStart DateEnd Date Chris Pelaez MD [address] [place] [address] PCP - GeneralFamily Medicine04/01/23 Elvie Greer NP [address] [place] [address] Nurse Practitionermily Medicine04/01/23Team MemberRelationshipSpecialtyStart DateEnd Date Chris Pelaez MD [address] [place] [address] PCP - GeneralFamily Medicine04/01/23 Elvie Greer NP [address] [place] [address] Nurse Practitionermily Medicine04/01/23Team MemberRelationshipSpecialtyStart DateEnd Date Chris Pelaez MD [address] [place] [address] PCP - GeneralFamily Medicine04/01/23 Elvie Greer NP [address] [place] [address] Nurse Practitionermily Medicine04/01/23Team MemberRelationshipSpecialtyStart DateEnd Date Chris Pelaez MD [address] [place] [address] PCP - GeneralFamily Medicine04/01/23 Elvie Greer NP [address] [place] [address] Nurse Practitionermily Medicine04/01/23Team MemberRelationshipSpecialtyStart DateEnd Date Chris Pelaez MD [address] [place] [address] PCP - GeneralFamily Medicine04/01/23 Elvie Greer NP [address] [place] [address] Nurse [facility] Medicine04/01/23Team MemberRelationshipSpecialtyStart DateEnd Date Chris Pelaez MD [address] [place] [address] PCP - Generalmily Medicine04/01/23 Elvie Greer NP [address] [place] [address] Nurse [facility] Medicine04/01/23Team MemberRelationshipSpecialtyStart DateEnd Date Chris Pelaez MD [address] [place] [address] PCP - GeneralFamily Medicine04/01/23 Elvie Greer NP [address] [place] [address] Nurse [facility] Medicine04/01/23Team MemberRelationshipSpecialtyStart DateEnd Date Chris Pelaez MD [address] [place] [address] PCP - GeneralFamily Medicine04/01/23 Elvie Greer NP [address] [place] [address] Nurse Practitionermily Medicine04/01/23Team MemberRelationshipSpecialtyStart DateEnd Date Chris Pelaez MD [address] [place] [address] PCP - Generalmily Medicine04/01/23 Elvie Greer NP [address] [place] [address] Nurse [facility] Medicine04/01/23Team MemberRelationshipSpecialtyStart DateEnd Date Chris Pelaez MD [address] [place] [address] PCP - GeneralFamily Medicine04/01/23 Elvie Greer NP [address] [place] [address] Nurse Pract[facility]Mad[facility] Medicine04/01/23Team MemberRelationshipSpecialtyStart DateEnd Date Chris Pelaez MD [address] [place] [address] PCP - GeneralFamily Medicine04/01/23 Elvie Greer NP [address] [place] [address] Nurse [facility]04/01/23Team MemberRelationshipSpecialtyStart DateEnd Date Chris Pelaez MD [address] [place] [address] PCP - [facility] Medicine04/01/23 Elvie Greer NP [address] [place] [address] Nurse [facility] Medicine04/01/23 Team Status: Inactive Member Role Status Dates Elvie Greer Primary Care Provider Active Sta rt: October 19, 2024 End: October 19, 2024Pamartha Silverio DOAtttrinity ProviderActiveStart: October 19, 2024 End: October 19, 2024Team MemberRelationshipSpecialtyStart DateEnd Date Chris Pelaez MD [address] [place] [address] [facility] - [facility]04/01/23 Isa Machado PA [address] [place] [address] [place], [place] [address] PCP - Medical [employer]03/08/2411 Elvie Greer NP [address] [place] [address] Nurse [facility] Medicine04/01/23Team MemberRelationshipSpecialtyStart DateEnd Date Chris Pelaez MD [address] [place] [address] PCP - GeneralFamily Medicine04/01/23 Isa Machado PA [address] [place] [address] [place] [address] PCP - Medical [employer]03/08/2411 Elvie Greer NP Nurse PractitionerFamily Medicine04/01/23Team MemberRelationshipSpecialtyStart DateEnd Date Chris Pelaez MD PCP - GeneralFamily Medicine04/01/23 Isa Machado PA [address] [place] [address] [place] [address] PCP - Medical [employer]03/08/2411 Elvie Greer NP Nurse [facility]04/01/23Te MemberRelationshipSpecialtyStart DateEnd Date Chris Pelaez MD PCP - GeneralFamily Medicine04/01/23 Isa Machado PA [address] [place] [address] [place] [address] PCP - Medical [employer]03/08/2411 Elvie Greer NP Nurse [facility] Medicine04/01/23Team MemberRelationshipSpecialtyStart DateEnd Date Chris Pelaez MD PCP - GeneralFamily Medicine04/01/23 Ias Machado PA [address] [place] [address] [place] [address] PCP - Medical [employer]03/08/2411 Elvie Greer NP Nurse PractitionerFamily Medicine04/01/23Team MemberRelationshipSpecialtyStart DateEnd Date Chris Pelaez MD PCP - GeneralFamily Medicine04/01/23 sIa Machado PA [address] [place] [address] [place] [address] PCP - Medical [employer]03/08/2411 Elvie Greer NP [facility] Medicine04/01/23Te MemberRelationshipSpecialtyStart DateEnd Date Chris Pelaez MD PCP - GeneralFamily Medicine04/01/23 Isa Machado PA [address] [place] [address] [place] [address] PCP - Medical [employer]03/08/2411 Elvie Greer NP Nurse Practitionermily Medicine04/01/23Team MemberRelationshipSpecialtyStart DateEnd Date Chris Pelaez MD PCP - GeneralFatxly Medicine04/01/23 Isa Machado PA [address] [place] [address] [place] [address] PCP - Medical [employer]03/08/2411 Elvie Greer NP [facility] Medicine04/01/23 Team Status: Active Member Role/Relationship Status Dates Elvie Greer NP-Lucille Primary Care Provider Active Team Status: Inactive Member Role/Relationship Status Dates Elvie Greer NP-C Primary Care Provider Active Start: October 19, 2024 End: October 19, 2024Rubina Leal ProviderActiveStart: October 19, 2024 End: October 19, 2024 Team Status: Active Member Role/Relationship Status Dates Elvie Greer NP-Lucille Primary Care Provider Active Start: November 28, 2024 CHRIS ValentineCAtjocelyn ProviderActiveStart: November 28, 2024 Team Status: Inactive Member Role/Relationship Status Dates Elvie Greer NP-C Primary Care Provider Active Start: January 11, 2025 End: January 11, 2025CHRIS ValentineCAtjocelyn ProviderActiveStart: January 11, 2025 End: January 11, 2025 Goals (unrecognized section and content) Goals may [...] BE BASED ON THE PRIMARY CLINICAL RECORDS. [facility]. provides no warranty or guarantee of the accuracy or completeness of information in this document.
[2025-01-25 09:22] LABS: Anion Gap 12.2; Blood Urea Nitrogen 8.0 mg/dL (7.0-18.0); Calcium 9.0 mg/dL (8.5-10.1); Carbon Dioxide 27.4 mmol/L (21.0-32.0); Chloride 103 mmol/L (98-107); Estimated GFR (African America >60 (>=60 mL/min/1.73m^2); Estimated GFR (Non-African Ame >60 (>=60 mL/min/1.73m^2); Glucose 86 mg/dL (74-106); Magnesium 2.0 mg/dL (1.8-2.4); Potassium 3.6 mmol/L (3.5-5.1); Sodium 139 mmol/L (136-145); Thyroid Stimulating Hormone 9.079 uIU/mL (0.358-3.740)
== END 2025-01-25 08:03 | disposition home or self-care (01) ==
LOC: LAB 08:03
PROVIDERS: PCP Nurse Practitioner; Visit Provider Nurse Practitioner
DX: E06.3 Autoimmune thyroiditis (principal); E83.42 Hypomagnesemia; I10 Essential (primary) hypertension
CPT/HCPCS: 36415; 80048; 83735; 84439; 84443